=== PATIENT | male | born 1945 | race Caucasian/White ===

== ENCOUNTER 2017-08-02 12:58 | Outpatient (RCR) | payer MEDICARE, SELFPAY ==
--- NOTE | 2017-08-02 13:54 | HP.PTEVAL ---
Patient's Visit Information JOE FLETCHER is a 72 year old M referred to Physical Therapy by Jerson DO with a diagnosis of Bilateral knee oa. Date of Evaluation: 08/02/17 Physical Therapist: Estephanie Becker - Visit Plan Plan: Will perform HEP in gym - Subjective Subjective: Patient reports that he has a new membership at [employer] and is ready to get moving. right THR and recent the left THR- partial left knee replacement 2 years ago and a right side old achilles injury and it never really healed correctly. Week or two ago started having pain in the achilles calf and into the hamstring- felt muscular. Went to see Dr. Roman who reported that his knee is shot- the right medial side of the knee is bone on bone. May need a partial knee replacement. Lots of leg cramps at night right>left. Had a cortisone shot in the knee and an inflammation Mobic prescribed. Worst: 7/10 Best: 0/10. Sharp and throbbing pains. Sleep: hard to get comfortble. Agg: none Eases: Tylenol. X-rays- bone on bone. PMHx: Heart Condition with 2 stents, HTN, cholestrol. Meds: asprin, spiroloactone, plavix, bedazeparol. - Objective Posture: FH, RS. Gait: no deviation noted. Stairs: asc/desc 8 stairs recip with 1 HR. Palpation: not tender. SLS: 5 sec on the right and 15 on the left. HR/TR: WNL. ROM: left knee: 0-125 right: 0-100 degrees with pain. Strength: 4+/5 throughout bilateral LE. Palpation: not tender. flex: HS: severe, Gastroc: severe - Goals Goal 1:: patient will be I with HEP - Rehabilitation Potential Physical Therapy Diagnosis: Patient presents with hypmobililty- he has decreased strength and muscular endurance Rehabilitation Potential: Excellent - Anticipated Interventions Thank you for the opportunity to evaluate your patient. For Medicare and Medicare HMO plans, please review the plan of care and approve it. It will need to be FAXED BACK to us at [phone] for Medicare purposes. Please let me know if there are questions or concerns regarding this plan of care. Physician Signature: Date:
--- NOTE | 2017-08-02 13:54 | HP.PTDCSUM ---
HP - PT D/C Summary It has been my pleasure to treat JOE FLETCHER under orders from DR.JGESLE Tatiana for the diagnosis of Bilateral knee oa for a total of 1 visit(s). Discharge Date: Please see the following information for a summary of their discharge status. - Goals Goal 1:: patient will be I with HEP - Plan Plan: Will perform HEP in gym - D/C Information If there are questions or concerns regarding this patient's physical therapy, please feel free to call me at [phone]. Thank you for the referral of this patient. Sincerely, Estephanie Becker
== END 2017-08-02 19:00 | disposition home or self-care (01) ==
LOC: PT 12:58
PROVIDERS: Family Provider Family Medicine; PCP Family Medicine; Visit Provider Orthopaedic Surgery
DX: M17.11 Unilateral primary osteoarthritis, right knee (principal)
CPT/HCPCS: 97110; 97161

== ENCOUNTER 2018-02-11 13:37 | Observation (INO) | payer MEDICARE, SELFPAY ==
[2018-02-11] VITALS (9 sets, daily range): BP systolic 118–137; BP diastolic 57–73; PULSE 50–63; RESP 14–18; TEMP 36.1–36.5; O2SAT 96–100; BMI 30.1; BMI 29.8
--- NOTE | 2018-02-11 14:22 | EKG12_ITS ---
Test Reason : CP Blood Pressure : / mmHG Vent. Rate : 051 BPM Atrial Rate : 051 BPM P-R Int : 270 ms QRS Dur : 104 ms QT Int : 450 ms P-R-T Axes : 005 035 081 degrees QTc Int : 414 ms Sinus bradycardia with 1st degree A-V block Incomplete right bundle branch block Nonspecific ST and T wave abnormality Abnormal ECG Confirmed by MALIK CISNEROS, DEEPIKA ([id number]), society editor BRIAN LYON ([id number]) on 02/13/2018 3:11:00 PM Referred By: SUELLEN Confirmed By:DEEPIKA GAN MD
--- NOTE | 2018-02-11 14:30 | RAD_ITS ---
STUDY: X-RAY CHEST REASON FOR EXAM: Male, 72 years old. Chest pain TECHNIQUE: Frontal view of the chest COMPARISON: None. FINDINGS: The lungs are clear. There are no pleural effusions. There is no pneumothorax. The heart is normal in size. The visualized osseous structures are within normal limits. RAD/Chest 1 View (Portable) IMPRESSION: No acute thoracic pathology. Electronically Signed: Pascual Lyle, at 15:12 EDT Tel , Service support ,
[2018-02-11 14:57] LABS: Absolute Lymphocyte Count 1.29 X10^3/ul (0.83-4.51); Absolute Neutrophil Count 3.9 X10^3/uL (2.0-7.7); Basophil# 0.01 X10^3/uL; Basophil% 0.2 % (0-1); Eosinophil# 0.11 X10^3/uL; Eosinophils% 1.9 % (0-5); Hematocrit 43.2 % (40-54); Hemoglobin 14.2 g/dl (13.0-16.5); Lymphocyte # 1.29 X10^3/ul (4.0); Lymphocyte % 22.2 % (19-41); Mean Corp Hgb Conc 32.9 g/gl (32-36); Mean Corpuscular Hgb 28.7 pg (27.0-32.0); Mean Corpuscular Volume 87.4 fL (80-94); Mean Platelet Vol. 10.1 fl (6.2-12.0); Monocyte# 0.49 X10^3/uL; Monocyte% 8.4 % (0-10); Neutrophil # 3.92 X10^3/uL (2.7-7.7); Neutrophil % 67.3 % (47-70); POSITIVE COUNT NO; POSITIVE DIFFERENTIAL NO; POSITIVE MORPHOLOGY NO; Platelet Count 239 K/mm3 (150-450); RBC Distribution Width CV 14.1 % (11.6-14.6); RBC Distribution Width SD 45.2 fl (35.1-43.9); Red Blood Count 4.94 M/mm3 (4.6-6.2); White Blood Count 5.8 K/mm3 (4.4-11.0)
[2018-02-11 15:14] LABS: Anion Gap 6 (5-15); BUN 19 mg/dL (7-18); BUN/Creat Ratio 19.2 RATIO (10-20); Calcium,Total 8.7 mg/dL (8.5-10.1); Chloride 106 mmol/L (98-107); Creatinine, Serum 0.99 mg/dL (0.70-1.30); EST Glomerular Filtration Rate 79 mL/min (>60); Est Glom Filt Rate - Afr Amer 95 mL/min (>60); Glucose 126 mg/dL (74-106); Potassium 3.9 mmol/L (3.5-5.1); Sodium Level 138 mmol/L (136-145)
[2018-02-11] MEDS: 0.9% Normal Saline 1,000 ML 150 ML IV ×2 (15:16→18:44)
[2018-02-11] MEDS: Aspirin 81 MG TAB.CHEW 324 MG PO (15:16)
--- NOTE | 2018-02-11 15:37 | ED.VISSUMM ---
- ER Visit Summary Date of Service: 02/11/18 Chief Complaint: [Shortness of breath] History of Present Illness: The patient is a 72 M [presents the emergency department with complaint of shortness of breath that started prior to arrival in the emergency department. Patient states that he was in a cut his lawn so try to start his lawnmower and pulled on the cord 10 times unsuccessfully. Patient began feeling very short of breath. Patient rested and the dyspnea did not seem to improve. He denies any chest pain or diaphoresis. He denied nausea or vomiting. Patient states that he had similar symptoms last time he required cardiac stent. Patient has 2 cardiac stents one that was placed in 2006 1 in 2013. Patient had nitroglycerin at home but did not take any.] Physical Examination: [HEENT-PERRLA, EOMI. Cranial nerves II through XII grossly intact. TMs clear. Mucous membranes moist. No adenopathy. Cardiovascular-regular rate and rhythm without murmur or ectopy Lungs-clear to auscultation, chest wall stable without crepitus or subcu emphysema Abdomen-normoactive bowel sounds, soft, nontender, no rebound or rigidity, no peritoneal signs. Extremities-intact ?4, normal range of motion, normal pulses, atraumatic] Test Results: [EKG obtained on arrival shows sinus rhythm with a ventricular rate of [address] changes noted laterally. CBC with differential obtained showed a white count 5.8, hemoglobin 14, hematocrit 43, platelets 239. Chemistries unremarkable. Troponin was less than 0.015. Chest x-ray showed nothing acute.] Emergency Department Course and Treatment: [She received aspirin in the emergency department.] Treatment Plan: [Admit for further workup and evaluation] Disposition: [Admit] Impression: [Dyspnea Anginal equivalent] This note was generated with [employer] dictation software. It may contain incorrect words, spelling, and punctuation that were not noted in review of the chart prior to signing ED Disposition - Plan for ED Patient: Chief Complaint: Shortness of Breath Referrals: Kraig Rider MD [Primary Care Provider] -
--- NOTE | 2018-02-11 15:40 | ED.DCSUM_ITS ---
- ER Visit Summary Date of Service: 02/11/18 Chief Complaint: [Shortness of breath] History of Present Illness: The patient is a 72 M [presents the emergency department with complaint of shortness of breath that started prior to arrival in the emergency department. Patient states that he was in a cut his lawn so try to start his lawnmower and pulled on the cord 10 times unsuccessfully. Patient began feeling very short of breath. Patient rested and the dyspnea did not seem to improve. He denies any chest pain or diaphoresis. He denied nausea or vomiting. Patient states that he had similar symptoms last time he required cardiac stent. Patient has 2 cardiac stents one that was placed in 2006 1 in 2013. Patient had nitroglycerin at home but did not take any.] Physical Examination: [HEENT-PERRLA, EOMI. Cranial nerves II through XII grossly intact. TMs clear. Mucous membranes moist. No adenopathy. Cardiovascular-regular rate and rhythm without murmur or ectopy Lungs-clear to auscultation, chest wall stable without crepitus or subcu emphysema Abdomen-normoactive bowel sounds, soft, nontender, no rebound or rigidity, no peritoneal signs. Extremities-intact ?4, normal range of motion, normal pulses, atraumatic] Test Results: [EKG obtained on arrival shows sinus rhythm with a ventricular rate of [address] changes noted laterally. CBC with differential obtained showed a white count 5.8, hemoglobin 14, hematocrit 43, p latelets 239. Chemistries unremarkable. Troponin was less than 0.015. Chest x-ray showed nothing acute.] Emergency Department Course and Treatment: [She received aspirin in the emergency department.] Treatment Plan: [Admit for further workup and evaluation] Disposition: [Admit] Impression: [Dyspnea Anginal equivalent] This note was generated with [employer] dictation software. It may contain incorrect words, spelling, and punctuation that were not noted in review of the chart prior to signing ED Disposition - Plan for ED Patient: Chief Complaint: Shortness of Breath Referrals: Kraig Rider MD [Primary Care Provider] -
--- NOTE | 2018-02-11 16:03 | HP.PCM_ITS ---
Problem List (1) Dyspnea Status: Acute (2) Coronary artery disease Status: Chronic Qualifiers: (3) Dupuytren's contracture of left hand Status: Chronic (4) Hyperlipidemia Status: Chronic Qualifiers: (5) Osteoarthritis Status: Chronic History of Present Illness Date of Admission: 02/11/18 Chief Complaint: Shortness of breath The patient is a 72 year old M with past medical history cigar for CAD with previous stent placement for an 11 years ago who presented with shortness of breath. Patient symptoms started while trying to start his more. He tried a couple of times and did develop some shortness of breath which persisted. According to patient had a similar presentation when his stents was placed previously. He subsequently presented to the emergency department as a result. On further questioning patient denied any nausea no vomiting did experience some lightheadedness but denied passing out. In the ED his initial set of cardiac enzymes and EKG came back unremarkable patient subsequently admitted to a monitored bed for further management. Past Medical History Past Medical History (Chronic Problems): Chronic Problems Osteoarthritis (Chronic) Dupuytren's contracture of left hand (Chronic) Hyperlipidemia (Chronic) Coronary artery disease (Chronic) Allergies No Known Allergies Allergy (Verified 02/11/18 13:39) Home Medications: Ambulatory Orders Medication Instructions Recorded Allopurinol [Zyloprim] 300 mg PO DAILY 11/14/13 Benazepril HCl [Lotensin] 20 mg PO DAILY 11/14/13 Spironolactone [Aldactone] 25 mg PO DAILY 11/14/13 Aspirin 161 mg PO DAILY@0800 03/19/16 Atenolol [Tenormin (beta scottie)] 12.5 mg PO DAILY 03/19/16 Atorvastatin Calcium [Lipitor] 40 mg PO QHS 03/19/16 Clopidogrel Bisulfate [Plavix] 75 mg PO DAILY 03/19/16 Surgical History: tonsillectomy, - - Tonsillectomy Varicocele 1974 Right hip replacement 1996 Coronary artery stent 2006 Psychiatric History: No pertinent psych hx Smoking Status: Heavy Smoker (>10/day) - *Family History Paternal History Items: Pulmonary Disease, - - No heart disease Maternal History Items: Diabetes, - - No heart disease Review of Systems Constitutional: Denies: Anorexia, Chills, Fever, Night Sweats, Weight Change HEENT: Denies: Head Aches, Sinus Congestion, Sinus Drainage Cardiovascular: Reports: Light Headedness. Denies: Chest Pain, Orthopnea, Palpitations, Paroxysmal Noc. Dyspnea Respiratory: Reports: Shortness of Breath. Denies: Cough Gastrointestinal: Denies: Abdominal Pain, Hematemesis, Hematochezia, Nausea, Melena, Vomiting Genitourinary: Denies: Dysuria, Frequency, Hematuria, Urgency Musculoskeletal: Denies: Joint Pain, Joint Tenderness Skin: Denies: Rash Neurological: Denies: Focal weakness, Numbness, Tingling Psychiatric: Denies: Homicidal Ideations, Suicidal Ideations Hematologic/ Lymphatic: Denies: Easy Bruising, Easy Bleeding VTE Information - Inpt Only VTE Present on Admission: No VTE Mechan Device Prophylaxis: None VTE Pharm Prophylaxis ordered?: Yes Patient Problems: Active and Suspected Problems Dyspnea (Acute) - Physical Exam General: Alert, Oriented x3, Cooperative HEENT: Atraumatic, PERRLA Neck: Supple, No JVD, Thyroid Normal Size and Texture Lungs: Clear to auscultation, No wheeze Cardiovascular: Regular rate, Normal S1, Normal S2, No murmurs, PMI Normal Abdomen: Bowel Sounds Present, Soft, Non Tender Extremities: No clubbing, No cyanosis, No edema Skin: No rashes Musculoskeletal: No Muscle Wasting, - - Full range of motion in all major muscle groups. Lymphatic: Cervical Adenopathy Neurological: Neuro grossly intact, Muscle tone normal Psych/Mental Status: Normal Affect Vital Signs Temp Pulse Resp BP Pulse Ox 97.3 F L 63 18 137/73 H 99 02/11/18 13:39 02/11/18 13:39 02/11/18 13:39 02/11/18 13:39 02/11/18 14:22 Oxygen Delivery Method Room Air Weight: 103.5 kg Body Mass Index (BMI) 30.1 Laboratory Tests Past 24 Hrs 02/11/18 02/11/18 14:41 14:41 WBC 5.8 RBC 4.94 Hgb 14.2 Hct 43.2 MCV 87.4 MCH 28.7 MCHC 32.9 RDW 14.1 RDW Differential 45.2 H Plt Count 239 MPV 10.1 Immature Gran % (Auto) 0.000 Neut % (Auto) 67.3 Lymph % (Auto) 22.2 [place] % (Auto) 8.4 Eos % (Auto) 1.9 Baso % (Auto) 0.2 Absolute Neuts (auto) 3.9 Absolute Lymphs (auto) 1.29 Total Counted Not Reportable Sodium 138 Potassium 3.9 Chloride 106 Carbon Dioxide 26.0 Anion Gap 6 BUN 19 H Creatinine 0.99 Estim Creat Clear Calc 75.10 Est GFR (MDRD) Af Amer 95 Est GFR (MDRD) Non-Af 79 BUN/Creatinine Ratio 19.2 Glucose 126 H Calcium 8.7 Troponin I < 0.015 Assessment/Plan All Active Problems Dyspnea (Acute) Acute blood loss anemia (Resolved) Syncope (Resolved) Hypertension (Resolved) Is a 72-year-old gentleman with previous history of CAD with 2 previous stent placement presented with acute dyspnea 1. Acute dyspnea: Patient has been admitted to a monitored bed ruling out [place] with serial cardiac enzymes. Did review patient's old records his last stress test was on 03/15/2017 which was negative for stress-induced ischemia. Plan is for patient to be referred to his primary printing press machinist Dr. Jorge Luis Suazo if his evaluation comes back negative 2. CAD with previous 2 stent placement patient is on recommended medications including dual antiplatelet therapy starting therapy beta-blockers as well as KARI inhibitors 3. Hypertension patient blood pressure stable did continue with home medications 4. Dyslipidemia patient is on statin therapy did continue . Gout patient is on allopurinol symptoms well controlled 6. DVT prophylaxis SC Lovenox Advance planning; did discuss with the patient and family regarding her advanced directives as well as CODE STATUS. Did explain the various modalities involved ( FULL CODE, DNR CCA, DNR CCA with no intubation, and DNR CC ) patient elected to remain full code . Order was placed. Time spent on discussion 18 minutes. Code Visit OBSV E&M: 16414 Initial observation care L3 Procedures: 18459 Advncd Care Plan 30 Min
--- NOTE | 2018-02-11 17:26 | NURSING ---
pt refuses vaccines
[2018-02-11] MEDS: Atorvastatin Calcium 40 MG Tablet PO (22:11)
[2018-02-12] VITALS (7 sets, daily range): BP systolic 124–143; BP diastolic 57–71; PULSE 54–65; RESP 16–18; TEMP 36.5–36.6; O2SAT 96–99
[2018-02-12] MEDS: 0.9% Normal Saline 1,000 ML 150 ML IV ×2 (00:05→06:21)
[2018-02-12 06:39] LABS: Anion Gap 6 (5-15); BUN 14 mg/dL (7-18); Calcium,Total 7.9 mg/dL (8.5-10.1); Chloride 112 mmol/L (98-107); Creatinine, Serum 0.87 mg/dL (0.70-1.30); EST Glomerular Filtration Rate 91 mL/min (>60); Est Glom Filt Rate - Afr Amer 110 mL/min (>60); Estimated Creatinine Clearance 85.46 ml/min; Glucose 104 mg/dL (74-106); Potassium 3.8 mmol/L (3.5-5.1); Sodium Level 141 mmol/L (136-145)
[2018-02-12] MEDS: Aspirin 81 MG TAB.CHEW 162 MG PO (08:49)
--- NOTE | 2018-02-12 09:13 | DCINST_ITS ---
- Discharge Diagnoses Current Active Problems: Current Active and Chronic Problems Dyspnea (Acute) You will use the following diet at home:: Cardiac Discharge Activity: Return to Normal Activity Allergies/Adverse Reactions: Allergies No Known Allergies Allergy (Verified 02/11/18 13:39) Medications to take at Discharge Benazepril HCl [Lotensin] 10 mg PO DAILY@0800 11/14/13 Spironolactone [Aldactone] 25 mg PO DAILY@159911/14/13 Aspirin 161 mg PO DAILY@03/19/16 Atenolol [Tenormin (beta scottie)] 12.5 mg PO DAILY@159903/19/16 Atorvastatin Calcium [Lipitor] 40 mg PO QHS@03/19/16 Clopidogrel Bisulfate [Plavix] 75 mg PO DAILY@79903/19/16 Isosorbide Mononitrate [Isosorbide Mononitrate ER] 30 mg PO DAILY@0800 02/11/18 Primary Care Physician: Kraig Rider MD [Primary Care Provider] - Please follow up with your Primary Care Physician in: in 5-7 days Test Results: Test results from this visit will be discussed in further detail at your follow- up appointment, if applicable. Please Follow Up With: Eren Romeo MD When: in 2-3 days Proposed Discharge Date: 02/12/18
--- NOTE | 2018-02-12 09:13 | PCM.DC.SUM ---
Discharge Date and Diagnosis - Problem List Patient Problems: Active and Suspected Problems Dyspnea (Acute) Date of Admission: 02/11/18 Date of Discharge: 02/12/18 - Primary Discharge Diagnosis Active and Suspected Problems Dyspnea (Acute) - Secondary Discharge Diagnosis Chronic Problems Osteoarthritis (Chronic) Dupuytren's contracture of left hand (Chronic) Hyperlipidemia (Chronic) Coronary artery disease (Chronic) Hospital Course and Treatment Imaging Results: Clinical Impression(s) from Imaging Studies Chest X-Ray 02/11/18 14:30 IMPRESSION: No acute thoracic pathology. Electronically Signed: Pascual Lyle, at 15:12 EDT Tel , Service support , Summary of Care Provided: The patient is a 72 year old M n with previous history of CAD with 2 previous stent placement presented with acute dyspnea 1. Acute dyspnea: Patient has been admitted to a monitored bed ruling out [place] with serial cardiac enzymes. Did review patient's old records his last stress test was on 03/15/2017 which was negative for stress-induced ischemia. Patient serial cardiac enzymes did remain negative throughout his stay. His symptoms resolved. He was discharged home instructed to follow-up with his primary masonry installer Dr. Jorge Luis Romeo for subsequent evaluation 2. CAD with previous 2 stent placement patient is on recommended medications including dual antiplatelet therapy starting therapy beta-blockers as well as KARI inhibitors 3. Hypertension patient blood pressure stable did continue with home medications 4. Dyslipidemia patient is on statin therapy did continue 5. Gout patient is on allopurinol symptoms well controlled 6. DVT prophylaxis SC Lovenox Discharge Diet: No Restrictions, Low fat/ Low Cholesterol Discharge Activity: Return to Normal Activity Home Medications: Medications to take at Discharge Benazepril HCl [Lotensin] 10 mg PO DAILY@0800 11/14/13 Spironolactone [Aldactone] 25 mg PO DAILY@1600 11/14/13 Aspirin 161 mg PO DAILY@03/19/16 Atenolol [Tenormin (beta scottie)] 12.5 mg PO DAILY@1600 03/19/16 Atorvastatin Calcium [Lipitor] 40 mg PO QHS@03/19/16 Clopidogrel Bisulfate [Plavix] 75 mg PO DAILY@0800 03/19/16 Isosorbide Mononitrate [Isosorbide Mononitrate ER] 30 mg PO DAILY@0800 02/11/18 Primary Care Physician: Kraig Rider MD [Primary Care Provider] - Please follow up with your Primary Care Physician in: in 5-7 days Please Follow Up With: Eren Romeo MD When: in 2-3 days Disposition: Home Minutes spent on discharge:: 35 Medical Necessity - Tobacco Use Smoking Status: Current every day smoker Tobacco Use: Cigars Meaningful Use Info Meaningful Use Diagnoses (Choose all that apply): None applicable Code Visit OBSV E&M: 73424 Observation care discharge - Physical Exam General: Alert HEENT: Atraumatic Neck: No JVD Lungs: Clear to auscultation Cardiovascular: Regular rate Neurological: Neuro grossly intact Vital Signs Temp Pulse Resp BP Pulse Ox 97.8 F 54 L 16 138/57 H 96 02/12/18 06:21 02/12/18 06:56 02/12/18 06:21 02/12/18 06:21 02/12/18 06:21 Oxygen Delivery Method Room Air Weight: 102.512 kg Body Mass Index (BMI) 29.8 Intake and Output for Last 24 Hours 02/10/18 02/11/18 02/12/18 23:59 23:59 23:59 Intake Total 1432 / 1432 935 / 935 Balance 1432 / 1432 935 / 935 Laboratory Tests Past 24 Hrs 02/11/18 02/11/18 02/11/18 14:41 14:41 18:10 WBC 5.8 RBC 4.94 Hgb 14.2 Hct 43.2 MCV 87.4 MCH 28.7 MCHC 32.9 RDW 14.1 RDW Differential 45.2 H Plt Count 239 MPV 10.1 Immature Gran % (Auto) 0.000 Neut % (Auto) 67.3 Lymph % (Auto) 22.2 [place] % (Auto) 8.4 Eos % (Auto) 1.9 Baso % (Auto) 0.2 Absolute Neuts (auto) 3.9 Absolute Lymphs (auto) 1.29 Total Counted Not Reportable Sodium 138 Potassium 3.9 Chloride 106 Carbon Dioxide 26.0 Anion Gap 6 BUN 19 H Creatinine 0.99 Estim Creat Clear Calc 75.10 Est GFR (MDRD) Af Amer 95 Est GFR (MDRD) Non-Af 79 BUN/Creatinine Ratio 19.2 Glucose 126 H Calcium 8.7 Troponin I < 0.015 < 0.015 02/11/18 02/12/18 20:55 06:02 WBC RBC Hgb Hct MCV MCH MCHC RDW RDW Differential Plt Count MPV Immature Gran % (Auto) Neut % (Auto) Lymph % (Auto) [place] % (Auto) Eos % (Auto) Baso % (Auto) Absolute Neuts (auto) Absolute Lymphs (auto) Total Counted Sodium 141 Potassium 3.8 Chloride 112 H Carbon Dioxide 23.0 Anion Gap 6 BUN 14 Creatinine 0.87 Estim Creat Clear Calc 85.46 Est GFR (MDRD) Af Amer 110 Est GFR (MDRD) Non-Af 91 BUN/Creatinine Ratio 16.0 Glucose 104 Calcium 7.9 L Troponin I < 0.015
--- NOTE | 2018-02-12 09:16 | DS.PCM_ITS ---
Discharge Date and Diagnosis - Problem List Patient Problems: Active and Suspected Problems Dyspnea (Acute) Date of Admission: 02/11/18 Date of Discharge: 02/12/18 - Primary Discharge Diagnosis Active and Suspected Problems Dyspnea (Acute) - Secondary Discharge Diagnosis Chronic Problems Osteoarthritis (Chronic) Dupuytren's contracture of left hand (Chronic) Hyperlipidemia (Chronic) Coronary artery disease (Chronic) Hospital Course and Treatment Imaging Results: Clinical Impression(s) from Imaging Studies Chest X-Ray 02/11/18 14:30 IMPRESSION: No acute thoracic pathology. Electronically Signed: Pascual Lyle, at 15:12 EDT Tel , Service support , Summary of Care Provided: The patient is a 72 year old M n with previous history of CAD with 2 previous stent placement presented with acute dyspnea 1. Acute dyspnea: Patient has been admitted to a monitored bed ruling out [place] with serial cardiac enzymes. Did review patient's old records his last stress test was on 03/15/2017 which was negative for stress-induced ischemia. Patient serial cardiac enzymes did remain negative throughout his stay. His symptoms resolved. He was discharged home instructed to follow-up with his primary media director Dr. Jorge Luis Romeo for subsequent evaluation 2. CAD with previous 2 stent placement patient is on recommended medications including dual antiplatelet therapy starting therapy beta-blockers as well as KARI inhibitors 3. Hypertension patient blood pressure stable did continue with home medications 4. Dyslipidemia patient is on statin therapy did continue 5. Gout patient is on allopurinol symptoms well controlled 6. DVT prophylaxis SC Lovenox Discharge Diet: No Restrictions, Low fat/ Low Cholesterol Discharge Activity: Return to Normal Activity Home Medications: Medications to take at Discharge Benazepril HCl [Lotensin] 10 mg PO DAILY@0800 11/14/13 Spironolactone [Aldactone] 25 mg PO DAILY@1600 11/14/13 Aspirin 161 mg PO DAILY@03/19/16 Atenolol [Tenormin (beta scottie)] 12.5 mg PO DAILY@1600 03/19/16 Atorvastatin Calcium [Lipitor] 40 mg PO QHS@03/19/16 Clopidogrel Bisulfate [Plavix] 75 mg PO DAILY@0800 03/19/16 Isosorbide Mononitrate [Isosorbide Mononitrate ER] 30 mg PO DAILY@0800 02/11/18 Primary Care Physician: Kraig Rider MD [Primary Care Provider] - Please follow up with your Primary Care Physician in: in 5-7 days Please Follow Up With: Eren Romeo MD When: in 2-3 days Disposition: Home Minutes spent on discharge:: 35 Medical Necessity - Tobacco Use Smoking Status: Current every day smoker Tobacco Use: Cigars Meaningful Use Info Meaningful Use Diagnoses (Choose all that apply): None applicable Code Visit OBSV E&M: 58418 Observation care discharge - Physical Exam General: Alert HEENT: Atraumatic Neck: No JVD Lungs: Clear to auscultation Cardiovascular: Regular rate Neurological: Neuro grossly intact Vital Signs Temp Pulse Resp BP Pulse Ox 97.8 F 54 L 16 138/57 H 96 02/12/18 06:21 02/12/18 06:56 02/12/18 06:21 02/12/18 06:21 02/12/18 06:21 Oxygen Delivery Method Room Air Weight: 102.512 kg Body Mass Index (BMI) 29.8 Intake and Output for Last 24 Hours 02/10/18 02/11/18 02/12/18 23:59 23:59 23:59 Intake Total 1432 / 1432 935 / 935 Balance 1432 / 1432 935 / 935 Laboratory Tests Past 24 Hrs 02/11/18 02/11/18 02/11/18 14:41 14:41 18:10 WBC 5.8 RBC 4.94 Hgb 14.2 Hct 43.2 MCV 87.4 MCH 28.7 MCHC 32.9 RDW 14.1 RDW Differential 45.2 H Plt Count 239 MPV 10.1 Immature Gran % (Auto) 0.000 Neut % (Auto) 67.3 Lymph % (Auto) 22.2 [place] % (Auto) 8.4 Eos % (Auto) 1.9 Baso % (Auto) 0.2 Absolute Neuts (auto) 3.9 Absolute Lymphs (auto) 1.29 Total Counted Not Reportable Sodium 138 Potassium 3.9 Chloride 106 Carbon Dioxide 26.0 Anion Gap 6 BUN 19 H Creatinine 0.99 Estim Creat Clear Calc 75.10 Est GFR (MDRD) Af Amer 95 Est GFR (MDRD) Non-Af 79 BUN/Creatinine Ratio 19.2 Glucose 126 H Calcium 8.7 Troponin I < 0.015 < 0.015 02/11/18 02/12/18 20:55 06:02 WBC RBC Hgb Hct MCV MCH MCHC RDW RDW Differential Plt Count MPV Immature Gran % (Auto) Neut % (Auto) Lymph % (Auto) [place] % (Auto) Eos % (Auto) Baso % (Auto) Absolute Neuts (auto) Absolute Lymphs (auto) Total Counted Sodium 141 Potassium 3.8 Chloride 112 H Carbon Dioxide 23.0 Anion Gap 6 BUN 14 Creatinine 0.87 Estim Creat Clear Calc 85.46 Est GFR (MDRD) Af Amer 110 Est GFR (MDRD) Non-Af 91 BUN/Creatinine Ratio 16.0 Glucose 104 Calcium 7.9 L Troponin I < 0.015
[2018-02-12] MEDS: Clopidogrel Bisulfate 75 MG Tablet PO (09:20)
[2018-02-12] MEDS: Spironolactone 25 MG Tablet PO (09:20)
[2018-02-12] MEDS: Lisinopril 20 MG Tablet PO (09:21)
[2018-02-12] MEDS: Atenolol 25 MG Tablet 12.5 MG PO (09:21)
[2018-02-12] MEDS: Allopurinol 300 MG Tablet PO (09:21)
== END 2018-02-12 09:12 | disposition home or self-care (01) ==
LOC: ED 14:49 → PCU 15:58
PROVIDERS: Admitting Provider Internal Medicine; Emergency Provider Emergency Medicine; Family Provider Family Medicine; PCP Family Medicine; Visit Provider Internal Medicine
DX: R06.00 Dyspnea, unspecified (principal); R06.02 Shortness of breath; E78.5 Hyperlipidemia, unspecified; I25.10 Atherosclerotic heart disease of native coronary artery without angina pectoris; M19.90 Unspecified osteoarthritis, unspecified site; M72.0 Palmar fascial fibromatosis [Dupuytren]; M10.9 Gout, unspecified; I10 Essential (primary) hypertension; F17.290 Nicotine dependence, other tobacco product, uncomplicated; Z79.899 Other long term (current) drug therapy; Z79.02 Long term (current) use of antithrombotics/antiplatelets; R94.31 Abnormal electrocardiogram [ECG] [EKG]; I45.10 Unspecified right bundle-branch block
CPT/HCPCS: 36415; 71045; 80048; 84484; 85025; 93005; 96360; 96361; 99218; 99283; 99406; J7030; A4216; G0378

== ENCOUNTER → 2020-02-04 17:16 | Outpatient (CLI) | payer MEDICARE, SELFPAY ==
[2019-08-28 14:22] VITALS: BMI 29.9
== END ==
PROVIDERS: PCP Family Medicine; Referring Provider Internal Medicine Cardiovascular Disease; Visit Provider Internal Medicine Cardiovascular Disease
DX: B34.9 Viral infection, unspecified (principal); R42 Dizziness and giddiness; R06.09 Other forms of dyspnea; I77.810 Thoracic aortic ectasia; I25.10 Atherosclerotic heart disease of native coronary artery without angina pectoris; I45.10 Unspecified right bundle-branch block; E78.5 Hyperlipidemia, unspecified; I10 Essential (primary) hypertension; Z95.5 Presence of coronary angioplasty implant and graft
CPT/HCPCS: 87635; C9803; U0003

== ENCOUNTER → 2020-05-13 13:45 | Outpatient (CLI) | payer MEDICARE, SELFPAY ==
[2020-04-29 15:31] VITALS: BMI 31.2
--- NOTE | 2020-05-13 13:50 | ECHOCS_ITS ---
Reason For Study: DILATED AO ROOT Procedure This was a 2D Doppler, Color Flow transthoracic echocardiogram. Exam performed in department. Left Ventricle Normal LV size. Mild concentric left ventricular hypertrophy. Left ventricular systolic function is normal. The estimated ejection fraction is 60 %. No regional wall motion abnormalities noted. Right Ventricle Normal RV size. Normal systolic function. Atria The left atrium is mildly enlarged. Normal right atrium. Mitral Valve Normal mitral valve. Tricuspid Valve Normal tricuspid valve. Mild tricuspid valve insufficiency. Pulmonary artery systolic pressure is 25 mmHg. Aortic Valve Trisinus/trileaflet aortic valve. Mild diffuse aortic valve thickening. Mild (1+) aortic valve insufficiency. Pulmonic Valve Normal pulmonic valve. Great Vessels Mildly dilated aortic root. The pulmonary artery is normal size. Normal inferior vena cava. Pericardium/Pleural No pericardial effusion. Medication 22 gauge I.V. with prn adaptor inserted into right arm. Diluted definity 4.0ml given slow IV push to enhance endocardial definition. MMode/2D Measurements & Calculations LVIDd: 4.6 cm IVSd: 1.3 cm Ao root diam: 4.1 cm LVIDs: 3.1 cm LVPWd: 1.2 cm RVDd: 4.5 cm FS: 33.2 % LAV(MOD-bp): 67.0 ml LVAd ap4: 32.8 cm2 SV(MOD-sp4): 71.0 ml LAV(MOD-bp) Indexed: 29.6 ml/m2 EDV(MOD-sp4): 107.2 ml LAV(MOD-sp2): 66.0 ml EDV(sp4-el): 107.4 ml LAV(MOD-sp4): 62.9 ml LVAs ap4: 16.9 cm2 ESV(MOD-sp4): 36.3 ml ESV(sp4-el): 37.0 ml EF(MOD-sp4): 66.2 % EF(sp4-el): 65.6 % SV(sp4-el): 70.4 ml LA A4 area: 20.6 cm2 LA dimension(2D): 4.0 cm RA A4 area: 18.2 cm2 Time Measurements MV dec time: 0.24 sec Doppler Measurements & Calculations MV E max shivam: 63.9 cm/sec Lat Peak E' Shivam: 5.5 cm/sec Med Peak E' Shivam: 4.2 cm/sec MV A max shivam: 86.5 cm/sec E/E' lat: 11.6 E/E' med: 15.2 MV E/A: 0.74 Ao V2 max: 143.3 cm/sec AI max shivam: 459.5 cm/sec LV V1 max: 99.6 cm/sec Ao max P.2 mmHg AI max P.5 mmHg LV V1 max P.0 mmHg AI dec slope: 161.5 cm/sec2 AI P1/2t: 833.4 msec PA V2 max: 96.1 cm/sec PI end-d shivam: 122.5 cm/sec TR max shivam: 235.8 cm/sec TR max P.3 mmHg Interpretation Summary Normal LV size. Mild concentric left ventricular hypertrophy. Left ventricular systolic function is normal. The estimated ejection fraction is 60 %. The left atrium is mildly enlarged. Mild (1+) aortic valve insufficiency. Mildly dilated aortic root. Ordering Physician: Talia Quinteros Referring Physician: DEE DIAZ Performed By: Whitney Andrade, RAQUEL, RVT
== END ==
PROVIDERS: PCP Family Medicine; Referring Provider Physician Assistant Medical; Visit Provider Physician Assistant Medical
DX: R06.09 Other forms of dyspnea (principal)
CPT/HCPCS: 93306; Q9957; A4216; C8929

== ENCOUNTER → 2020-08-29 09:32 | Outpatient (CLI) | payer MEDICARE, SELFPAY ==
[2020-08-20 15:36] VITALS: BMI 31.4
== END ==
PROVIDERS: PCP Family Medicine; Referring Provider Nurse Practitioner Family; Visit Provider Nurse Practitioner Family
DX: I25.10 Atherosclerotic heart disease of native coronary artery without angina pectoris (principal); I10 Essential (primary) hypertension; E78.5 Hyperlipidemia, unspecified; I48.0 Paroxysmal atrial fibrillation; Z95.5 Presence of coronary angioplasty implant and graft
CPT/HCPCS: 93225; 93226

== ENCOUNTER → 2020-09-02 06:36 | Outpatient (CLI) | payer MEDICARE, SELFPAY ==
[2020-08-20 15:36] VITALS: BMI 31.4
--- NOTE | 2020-09-02 19:54 | STRESSREP_ITS ---
Stress Test Report Date: 09-02-2020 Procedure: Pharmacologic stress nuclear imaging study Indications: Chest pain; CAD; PCI Consent: Per the patient Procedure: The patient underwent pharmacologic (Regadenoson 0.4mg ) evaluation with a peak heart rate of 95 beats per minute (65%predicted maximal heart rate) and a peak blood pressure of 148/88 mmHg. The baseline ECG demonstrated atrial flutter: Right IVCD. The peak pharmacologic ECG demonstrated no obvious ECG changes. The cardiac rhythm remained atrial flutter. There was no complaint of chest discomfort during pharmacologic infusion or recovery. The examination was discontinued secondary to completion of protocol. Impression: 1. Pharmacologic (Regadenoson) evaluation 2. Peak pharmacologic ECG with no obvious ECG changes. 3. The cardiac rhythm remained atrial flutter. 4. Nuclear images pending Myocardial perfusion imaging study: Technique: The patient was injected with 14.2 millicuries of technetium 99m Cardiolite and subsequently rest SPECT Cardiolite nuclear imaging was obtained in the horizontal long, vertical long, and short axis views. The patient underwent pharmacologic (Regadenoson) evaluation with a peak heart rate of 95 beats per minute (65% percent predicted maximal heart rate) and a peak blood pressure of 148/88 mmHg. The patient was injected with 44.1 millicuries of technetium 99m Cardiolite and subsequently stress SPECT Cardiolite nuclear imaging was obtained in the horizontal long, vertical long, and short axis views. A gated Cardiolite study at peak stress was obtained. Interpretation: Rest and stress SPECT Cardiolite nuclear imaging status post realignment, normalization, and attenuation correction demonstrate relative uniform tracer uptake and myocardial perfusion appearing within normal limits. There is end systolic thickening and brightening. The gated Cardiolite study demonstrates myocardial thickening and inward wall motion. The reported LVEF is 75%. Impression: 1. Rest and stress SPECT Cardiolite nuclear imaging demonstrate relative uniform tracer uptake and myocardial perfusion appearing within normal limits. 2. The gated Cardiolite study reports an LVEF of 75%. This note was generated with Care Team Connectation software. It may contain incorrect words, spelling, and punctuation that were not noted in checking the note before signing.
== END ==
PROVIDERS: PCP Family Medicine; Visit Provider Nurse Practitioner Family
DX: R07.9 Chest pain, unspecified (principal); I25.10 Atherosclerotic heart disease of native coronary artery without angina pectoris; Z95.5 Presence of coronary angioplasty implant and graft; I10 Essential (primary) hypertension; E78.5 Hyperlipidemia, unspecified; I48.0 Paroxysmal atrial fibrillation
CPT/HCPCS: 78452; 93017; A9500; A4216; J2785

== ENCOUNTER 2020-09-19 11:42 | Day surgery (SDC) | payer MEDICARE, SELFPAY ==
[2020-09-11 15:59] VITALS: BMI 31.2
--- NOTE | 2020-09-17 15:08 | RAD_ITS ---
STUDY: X-RAY CHEST REASON FOR EXAM: Male, 75 years old. [facility] TECHNIQUE: PA and lateral views of the chest. COMPARISON: 02/11/2018 FINDINGS: The lungs are clear and expanded. There is no demonstrated pleural abnormality. Normal size heart. Normal mediastinum and dylan. Normal visualized pulmonary arteries. Normal visualized aortic arch and descending thoracic aorta. Normal visualized thoracic spine. Normal visualized ribs, clavicles, and shoulders. There is no demonstrated abnormality of the visualized soft tissue structures of the upper abdomen. RAD/Chest PA and Lateral IMPRESSION: Normal x-ray examination of the chest. Electronically Signed: Bandar Goldstein MD at 15:28 EDT Tel , Service support ,
[2020-09-18 08:38] VITALS: BMI 31.2
--- NOTE | 2020-09-19 13:04 | PCM.OP.BLANK ---
Problems Associated Problem List Diagnoses (1) Paroxysmal atrial fibrillation: Operative Report Date of Procedure: 09/19/20 DC cardioversion. 75-year-old man with a history of coronary artery disease and persistent atrial flutter. The patient was brought to the noninvasive lab in the postabsorptive nonsedated state. The patient was seen by myself as well as by Dr. Floyd of the critical care division. Informed consent was obtained. Anterior-posterior pads were applied. The patient was then administered 40 mg of intravenous propofol. 200 J of synchronized biphasic cardioversion energy were applied with prompt reversal to sinus rhythm. Patient tolerated the procedure well. Conclusion: Successful DC cardioversion from atrial flutter to sinus rhythm. Continue current medications Continue anticoagulation.
--- NOTE | 2020-09-19 13:42 | PRO.PCM_ITS ---
Procedure Report Date of Procedure: 09/19/20 CONSCIOUS SEDATION REPORT DATE OF SERVICE: September 19, 2020 BRIEF HISTORY OF PRESENT ILLNESS: The patient is a 75-year-old male who presented to [facility] for an elective outpatient cardioversion due to underlying atrial fibrillation. The patient's last surface echocardiogram revealed an ejection fraction of approximately 60%. The patient is anticoagulated on Eliquis. He does report having experienced some bradycardic episodes after his last exposure to anesthesia. He has never been diagnosed with sleep apnea previously. PHYSICAL EXAMINATION: VITAL SIGNS: Reviewed and were acceptable. GENERAL: The patient is a male, in no apparent distress, speaking in f ull sentences. HEENT: Normocephalic, atraumatic. Mucous membranes are moist and pink. Good mouth opening noted. Trachea is midline. CHEST: S1, S2 irregularly irregular. No murmurs, rubs or gallops were noted. LUNGS: Clear to auscultation bilaterally without appreciable wheezes, rales or rhonchi. ABDOMEN: Soft, nontender, nondistended. Positive bowel sounds. EXTREMITIES: There is no clubbing, cyanosis or edema. ASA Class: II DESCRIPTION OF PROCEDURE: After confirmation of informed consent, the patient's anesthesia plan was reviewed in detail. Propofol was chosen. Risks and benefits were reviewed and the patient agreed to proceed. At 1245, the patient was given 40 mg of propofol. The patient achieved an appropriate level of sedation and was given a 200 joule synchronized cardioversion by Dr. Johnson at the bedside. This was successful in achieving normal sinus rhythm. The patient was monitored until 1255, at which time he reached his baseline mental status and function. The patient tolerated the procedure well. COMPLICATIONS: None ESTIMATED BLOOD LOSS: None RECOMMENDATIONS: Okay to recover in usual fashion. Procedures Pulmonary CF Procedures [id number]: Other Procedure See Report ([id number])
== END 2020-09-19 14:00 | disposition home or self-care (01) ==
LOC: CLSP 11:43
PROVIDERS: PCP Family Medicine; Referring Provider Internal Medicine Cardiovascular Disease; Visit Provider Internal Medicine Cardiovascular Disease
DX: I48.0 Paroxysmal atrial fibrillation (principal); I25.10 Atherosclerotic heart disease of native coronary artery without angina pectoris; E11.9 Type 2 diabetes mellitus without complications; I10 Essential (primary) hypertension; E78.5 Hyperlipidemia, unspecified; M19.90 Unspecified osteoarthritis, unspecified site; M10.9 Gout, unspecified; F17.290 Nicotine dependence, other tobacco product, uncomplicated; Z79.01 Long term (current) use of anticoagulants; Z79.82 Long term (current) use of aspirin; Z79.899 Other long term (current) drug therapy; Z95.5 Presence of coronary angioplasty implant and graft; Z96.652 Presence of left artificial knee joint; Z96.643 Presence of artificial hip joint, bilateral
CPT/HCPCS: 71046; 92960; 93005; J7040

== ENCOUNTER 2021-08-05 09:35 | Outpatient (CLI) | payer MEDICARE, SELFPAY ==
[2021-08-05 11:00] LABS: AST(SGOT) 20 U/L (15-37); Alanine Aminotransfer ALT/SGPT 33 U/L (16-61); Albumin, Serum 3.8 g/dL (3.2-5.0); Alkaline Phosphatase 113 U/L (45-117); Bilirubin, Direct 0.19 mg/dL (0.00-0.30); Cholesterol 139 mg/dL (200); Globulin 3.7 g/dL (2.2-4.2); High Density Lipoprotein 35 mg/dL; Protein, Total 7.5 g/dL (6.4-8.2); Triglycerides 119 mg/dL; Very Low Density Lipoprotein 24 mg/dL (5-40)
== END 2021-08-05 23:59 | disposition home or self-care (01) ==
LOC: LAB 09:37
PROVIDERS: PCP Family Medicine; Referring Provider Internal Medicine Cardiovascular Disease; Visit Provider Internal Medicine Cardiovascular Disease
DX: E78.5 Hyperlipidemia, unspecified (principal); I25.10 Atherosclerotic heart disease of native coronary artery without angina pectoris
CPT/HCPCS: 36415; 80061; 80076

== ENCOUNTER 2021-08-20 06:32 | Outpatient (CLI) | payer MEDICARE, SELFPAY ==
--- NOTE | 2021-08-20 10:11 | STRESSREP_ITS ---
Stress Test Report Exercise my cardial perfusion stress test. 76-year-old man with a history of coronary artery disease status post bare-metal stenting of the proximal circumflex artery. Stress protocol: Resting EKG demonstrates sinus bradycardia with a rate of 54 bpm normal intervals are noted resting blood pressure is 120/68 mmHg. The patient exercised according to regular Aldo protocol for total duration of 5 minutes and 45 seconds. The maximum heart rate attained was 123 bpm which was 86% of max impact at heart rate the maximum workload was 7 metabolic equivalents. At rest there were no ST or T wave changes noted to suggest ischemia and at peak exercise there was approximately [address] depression noted in leads II, III and aVF V4 V5 and V6. During recovery there was improvement in these ST changes. No chest pain was noted though there was moderate shortness of breath present. The peak blood pressure was 180/80 mmHg. Myocardial perfusion protocol. 15.0 mCi of technetium 99m sestamibi was injected at rest. The patient exercised according to regular Aldo protocol for 5 minutes and 45 seconds and at peak exercise 45.0 mCi of technetium 99m sestamibi was injected stress images were obtained stress and rest images were reconstructed and compared in the short axis vertical long horizontal long axis. Gated images were also obtained. Perfusion SPECT analysis: Review of the stress images demonstrate mildly reduced perfusion noted in the mid anterior wall on the stress images as well as the inferolateral wall. The r est of the balderas appear to be normally perfused. The resting images demonstrate complete reversibility noted in the inferior lateral wall with mild reduction noted in the anterior wall. The above is suggestive of moderate zone of inferolateral ischemia present and probable mild anterior ischemia. Gated SPECT analysis: The gated ejection fraction is 60%. Conclusion: Abnormal exercise myocardial perfusion stress test with EKG changes suggestive of ischemia at a moderate workload. Inferior lateral moderate zone myocardial ischemia noted. Mild mid anterior ischemia cannot be completely excluded.
== END 2021-08-20 23:59 | disposition home or self-care (01) ==
LOC: CVS 06:35
PROVIDERS: PCP Family Medicine; Referring Provider Internal Medicine Cardiovascular Disease; Visit Provider Internal Medicine Cardiovascular Disease
DX: I25.10 Atherosclerotic heart disease of native coronary artery without angina pectoris (principal); Z95.5 Presence of coronary angioplasty implant and graft
CPT/HCPCS: 78452; 93017; A9500; A4216

== ENCOUNTER 2021-08-26 13:31 | Outpatient (CLI) | payer MEDICARE, SELFPAY ==
[2021-08-24 13:58] LABS: Absolute Lymphocyte Count 1.57 X10^3/uL (0.83-4.51); Basophil# 0.02 X10^3/uL; Basophil% 0.3 % (0-1); Eosinophil# 0.17 X10^3/uL; Eosinophils% 2.2 % (0-5); Hematocrit 43.2 % (40-54); Lymphocyte # 1.57 X10^3/ul (0.83-4.51); Lymphocyte % 20.8 % (19-41); Mean Corp Hgb Conc 32.4 g/dL (32-36); Mean Corpuscular Volume 89.6 fL (80-94); Mean Platelet Vol. 10.7 fl (6.2-12.0); Monocyte# 0.75 X10^3/uL; Monocyte% 9.9 % (0-10); NRBC Flagged by Analyzer 0 % (0-5); Neutrophil # 5.03 X10^3/uL (2.7-7.7); Neutrophil % 66.5 % (47-70); Platelet Count 259 K/mm3 (150-450); RBC Distribution Width CV 13.4 % (11.6-14.6); RBC Distribution Width SD 44.2 fl (35.1-43.9); Red Blood Count 4.82 M/mm3 (4.6-6.2); White Blood Count 7.6 K/mm3 (4.4-11.0)
[2021-08-24 14:27] LABS: Anion Gap 1 (5-15); BUN 16 mg/dL (7-18); BUN/Creat Ratio 15.7 RATIO (10-20); Calcium,Total 8.9 mg/dL (8.5-10.1); Chloride 108 mmol/L (98-107); Creatinine, Serum 1.02 mg/dL (0.70-1.30); EST Glomerular Filtration Rate 75 mL/min (>60); Est Glom Filt Rate - Afr Amer 91 mL/min (>60); Glucose 127 mg/dL (74-106); Potassium 4.3 mmol/L (3.5-5.1); Sodium Level 137 mmol/L (136-145)
== END 2021-08-26 23:59 | disposition home or self-care (01) ==
LOC: PAT 09-03 13:31
PROVIDERS: PCP Family Medicine; Referring Provider Internal Medicine Cardiovascular Disease; Visit Provider Internal Medicine Cardiovascular Disease
DX: R94.39 Abnormal result of other cardiovascular function study (principal); I77.810 Thoracic aortic ectasia; I48.0 Paroxysmal atrial fibrillation; I25.10 Atherosclerotic heart disease of native coronary artery without angina pectoris; I45.10 Unspecified right bundle-branch block; I10 Essential (primary) hypertension; Z95.5 Presence of coronary angioplasty implant and graft
CPT/HCPCS: 36415; 80048; 85025

== ENCOUNTER → 2021-10-14 | Outpatient (CLI) | payer MEDICARE, SELFPAY | END | disposition home or self-care (01) | LOC: PSN 13:24 | PROVIDERS: PCP Family Medicine; Visit Provider Nurse Practitioner Family | DX: I48.0 Paroxysmal atrial fibrillation (principal); I45.10 Unspecified right bundle-branch block; R42 Dizziness and giddiness; Z95.1 Presence of aortocoronary bypass graft | CPT/HCPCS: 93225; 93226 ==

== ENCOUNTER → 2021-12-23 | Outpatient (CLI) | payer MEDICARE, SELFPAY ==
--- NOTE | 2021-12-23 13:40 | CR.ITP_ITS ---
Diagnosis - General Information Admitting Diagnosis: S/P CABG Secondary Diagnosis: Dilated Aortic Root, HTN, HLD, Type II DM Personal Learning Style:: Written Barriers to Learning: No Barriers Stage of change r/t lifestyle modifications:: Action Gave educational material for:: Treating Heart Disease, Emotions & Heart Disease, Stress Management & Relaxation, Sleep Disorders & Heart Disease, How The Heart Works, What it means to have Heart Disease, How Coronary Artery Disease is Diagnosed, Heart Procedures, What Heart Medications Do, Risk Factors & Modifications, Living an Active Life, Nutrition - Education/Goals Individual Counseling: Initial Assessment: Abnormal Cholesterol Levels, High Blood Pressure Cardiac Rehabilitation Goals: 1. Maintain the individual as the primary focus of care. 2. To improve the patient's quality of life. 3. Identification of cardiac risk factors and provide cardiac risk factor management. 4. Enhance the psychosocial status of the patient. 5. Reconditioning enough to allow the patient to resume customary activities. 6. Control symptoms of cardiac disease Personal Goals: Initial Assessment: Improve energy level, Get back to work, or to resume activities faster, Improve muscle strength and endurance, Control risk factors (learn risk factor modification) Scale for measuring improvement of personal goals: Enter appropriate number in Comments. 2 = Unchanged. 3 = Slightly Better. 4 = Moderate Improvement. 5 = Met my Goal - Diagnosis & Disease Process Outcomes/Goals: Pt IDs own risk factors & lifestyle modifications by Session 10, Verbalizes symptoms of angina & response by session 3., Pt independently manages Plan/Interventions: Assist Pt to ID & engage in lifestyle modification to reduce CVD risk, Instruct on individual risk factors, Review symptoms of angina & emergency actions, Review secondary diagnosis & identify educational needs. - Safety Referral to Physical Therapy: No Referral to [facility] Case Management: No Fall Risk Assessed:: Yes Assistive Devices:: None Exercise - Initial Assessment - Visit Date of Eval: 12/23/21 Session #:: 0 - Pre-cardiac Rehab Evaluation - Physician Prescribed Exercise Modalities: Treadmill, Airdyne, NuStep Frequency: 3x/week for 12 weeks [36 sessions] Intensity: 60-80% of age predicted maximum heart rate reserve Current METSs:: 4.0 Target Heart Rate:: 93-122 Resting Blood Pressure: 100/63 EKG Type: Sinus Rhythm w/ 1st degree A-V block, RBBB Current Physical Activity or Exercising minutes: Physically Active daily - Outcomes & Goals Goals:: Verbalizes understanding of THR, RPE & goal METS by session 6, Documents in home exercise log/reports 30 min aerobic 5 day/wk by DC, Demonstrates accurate pulse taking by DC - Intervention & Plan Exercise Program Goals: Instruct on personal THR & RPE, Instruct on MET level & personal MET goal, Show patient to take own pulse /validate performance until accurate, Instruct on home exercise - Physical Activity Home Exercise Physical Activity - Home Exercise: Safe Exercise, Warm-up, Self-monitoring, Cool-Down, Home Exercise > 30 min Daily, Sitting Time <3 hours/daily - Outcomes & Goals Outcomes/Goals: Demonstrates correct Warm-up/exercise Cool-Down (S3) if = 2.5 METs, Verbalizes symptoms of exercise intolerance by Session 3 (S3), Demonstrate safe equipment use (S3) & follows exercise prescrition (6) - Intervention & Plan Plan/Intervention: Instruct warm-up & cool-down if exercising at > 2 METs, Instruct on symptoms of exercise intolerance & actions to take, Instruct & monitor on saf, Assess intial functional capacity & safety risk Nutrition - Initial Assessment - Program Goals Nutrition Program Goals: LDL <100 optimal. 100 - 129 Near optimal. 130 - 159 Borderline High. 160 - 189 High. Total Cholesterol <200 desirable. 200 - 239 Borderline High. >/= 240 High. HDL < 40 Low >/=60 High. Triglycerides <150 desirable. <199 optimal. VlDL 5 - 40. HgbA1C <7%. BMI <25 Patient has diagnosis of Hyperlipidemia (ICD E78)?: Yes - Visit Date of Assessment:: 12/23/21 Session #:: 0 - Pre-cardiac rehab evaluation - Cholesterol/Lipids Triglycerides (mg/dL): 119 Total Cholesterol (mg/dL): 139 LDL Cholesterol (mg/dL): 80 HDL Cholesterol (mg/dL): 35 Lipid Medication: Atorvastatin Determine presence & major risk factors that modify LDL goal: Hypertension or hypertensive medication, Low HDL cholesterol <40 mg/dL*, Family history of premature CHD in Male < 55 years: female <65 yearsFa, Age men > 45 years; women >/= 55 years Outcomes/Goals: Pt IDs own risk factors & lifestyle modifications by Session 10, Verbalizes symptoms of angina & response by session 3., Pt independently manages Intervention/Plan: Instruct on personal lipid levels & lipid goals/NCEP guidelines, Instruct on cholesterol Referral to dietitian:: Yes - Medical Nutrition Therapy - Diabetes (Other Core Measures) Diabetes Type: Diagnosis Type II ICD-10 E11 Fasting blood glucose:: 127 - Weight Mgt (Other Care) Not Applicable: Yes Height: 6 ft 1 in Weight:: 217 lb BMI: 28.6 Diagnosis Overweight/Obesity BMI> 30% ICD-10 E66: No Diagnosis High BMI/Morbid Obesity BMI> 35% ICD-10 Z68: No Outcomes/Goals: Pt sets, maintains & shows weight loss goal & trend during rehab Intervention/Plan: Instruct on ideal BMI & set weight loss goal w/patient, Assist pt to ID & incorporate diet changes for weight loss by S9 - Healthy Eating Habits Will attend diet classes:: Yes Outcomes/Goals:: Consume diet rich in vegs,fruits,whole grain/high fiber,fis h,lean meat, Limit sat/trans fats,cholesterol & added salts & sugars Intervention/Plan:: Assess current eating habits - Education Gave educational materials for:: Healthy eating Nutrition - 30-Day Assessment Nutrition - 60-Day Assessment Nutrition - 90-Day Assessment Nutrition - Final Assessment Medical - Initial Assessment - Visit Date of Eval: 12/23/21 Session #:: 0 - Pre-cardiac rehab evaluation - Medication Compliance Preventative Medication(s):: Aspirin, Statin/lipid H/O mental health issues: depression, anxiety, or addiction?: No Doesn?t believe in the benefits of treatment?: No Believes medications are unnecessary or harmful?: No Has a concern about medication side effects?: No Expresses concern over the cost of medications?: No Outcomes/Goals: Verbalizes medications,desired effect & common side effects @ DC, Pt self-reports following medication regimen, Keeps card in wallet w/medications listed by DC Interventions/plans: Instruct on medication effects & side effects, Review medication list w/patient every two weeks, Instruct importance of taking meds as ordered & assist problem solving - Tobacco Use Tobacco Use: Non-smoker - Hypertension Hypertension Diagnosis:: Hypertension ICD-10 I10 Resting Blood Pressure:: 100/63 [employer] Hypertension Guidelines: [place] [employer] Hypertension Guidelines. Normal BP Less than 120/80. Elevated BP 120/80. Hypertension Stage 1: BP 130-139/80-89. Hypertesnion Stage 2: BP 140 or higher/90 or higher. Hypertension Crisis: BP higher than 180/120 Outcomes/Goals: Able to verbalize/achieve optimal blood pressure <130/80, Incorporates diet changes & exercise for blood pressure control by DC Interventions/plan: Instruct on optimal blood pressure, hypertension & medications, Instruct on effects of sodium, alcohol, stress, exercise &hypertension - Tobacco Cessation Referral Smoking Cessation Referral:: No Individual Education/Counseling:: No Education Schedule Given:: Yes Medical- 30-Day Assessment Medical- 60-Day Assessment Medical- 90-Day Assessment Medical - Final Assessment Psychosocial - Initial Assess - VIsit Date of Eval: 12/23/21 Session #:: 0 - Pre-cardiac rehab evaluation Not Applicable: Yes History of previous Mental disease:: No - Psychosocial Test Tool Used:: Stirling Ultracold([employer])ans ipadio QOL Cardiac, PHQ-9 Questionnaire phq-9 Severity: Severity. 1-4 Minimal Depression. 5-9 Mild Depression. 10-14 Moderate Depression. 15-19 Moderately Sever Depression. 20-27 Severe Depression. Rule: - Referral to Behavioral Health PS - Interventions: Yes Attend Stress Management Classes, No Referral to Behavioral Health if PHQ-9 score >9:, No Referral to [facility], No Referral to Physician if PHQ-9 if score is 5-9: - Outcomes/Goals: See list Psychosocial Outcomes/Goals:: ID's personal stressors & 2 strategies to manage stress by discharge - Intervention/Plan: See List Interventions/Plan:: Assess stressors,coping strategies & signs of derpression on admission Psychosocial - 30-Day Assess Psychosocial - 60-Day Assess Psychosocial - 90-Day Assess Psychosocial - Final Assessmen Patient Health Questionnaire Initial Assessment 1. Little interest or pleasure in doing things: Not at all 2. Feeling down, depressed, or hopeless: Not at all 3. Trouble falling or staying asleep, or sleeping too much: Not at all 4. Feeling tired or having little energy: Several days 5. Poor appetite or overeating: Several days 6. Feeling bad about yourself -- or that you are a failure or have let yourself or your family down: Not at all 7. Trouble concentrating on things, such as reading the newspaper or watching television: Not at all 8. Moving or speaking so slowly that other people could have noticed. Or the opposite - being so fidgety or restless that you have been moving around a lot more than usual: Not at all 9. Thoughts that you would be better off , or of hurting yourself in some way: Not at all Total Score: 2 DEEPA-Q SV Test - Statements CAD is a disease of the arteries in the heart: False Examples of risk factors for heart disease: True Angina is chest pain or discomfort: True The benefits of resistance training include: True Eating more meat and dairy products: False Anti-platelet medications such as aspirin are important: True The only effective way to manage stress: False An exercise warm-up slowly increases heart rate: True Prepared, processed foods usually have high sodium: True Depression is common after a heart attack: I Don't Know The statin medications lower cholesterol: True To control blood pressure, lower the amount of sodium: True If someone gets chest discomfort during walking: False Transfats are partially hydrogenated vegetable oils: I Don't Know Sleep apnea that is not treated increases the risk: I Don't Know To control cholesterol, one should become a vegetarian: True Someone knows if he/she is exercising at the right level: False Diabetes cannot be prevented with exercise & health eating: I Don't Know Stress is a large risk for heart attack: True Self-Efficacy Initial Assessment We would like to know how confident you are in doing certain activities. Please select your confidence level for:: Select your confidence level for the following using the scale 1-10 where 1 is not at all confident and 10 is totally confident. Your score is the average of all 6 responses. Fatigue: How confident are you that you can keep the fatigue caused by your disease from interfering with the things you want to do? Select Number: 8 Physical Discomfort or Pain: How confident are you that you can keep the physical discomfort or pain of your disease from interfering with the things you want to do? Select Number: 10 Emotional Distress: How confident are you that you can keep the emotional distress caused by your disease from interfering with the things you want to do? Select Number: 10 Other Symptoms or Health Problems: How confident are you that you can keep other symptoms or health problems from interfering with the things you want to do? Select Number: 10 Different Tasks and Activities: How confident are you that you can do the different tasks and activities needed to manage your health condition so as to reduce your need to see a doctor? Select Number: 10 Medication: How confident are you that you can do things other than just taking medication to reduce how much your illness affects your everyday life? Select Number: 7 Total Score:: 9 Nutrition Survey - Nutrition Survey Initial Have you lost >10 lbs over the past 2 months without trying?: Yes Are you following a special diet at home for diabetes, low fat, or low salt?: No Are you interested in meeting with a dietitian for help understanding your diet?: No Do you eat less than 3 meals a day?: No Do you eat fatty meats (guillaume, sausage, ribs, etc), fried foods, desserts, large amounts of salad dressings, margarine, butter, or cheese most days?: No Do you have food allergies? [Enter types in comment field]: No Do you eat in restaurants more than 3 times a week?: No Do you season food with salt, seasoning salt, or garlic salt?: No Do you used canned, boxed, frozen meals, or soups, seasoning packets?: Yes Total Score:: 2
--- NOTE | 2021-12-23 13:40 | CR.HP_ITS ---
CR - History & Physical - General Arrival date:: 12/23/21 Arrival time:: 13:41 Date of Referral:: 12/12/21 Date of CR Evaluation:: 12/23/21 Referring Physician: DR. Junior Johnson Primary Diagnosis: S/P CABG - History of Present Cardiac Event Onset Date: Enter Onset Date of cardiac illnesses in Comment field below Coronary Artery Bypass Graft:: Yes - 11/30/2021 MANTILLA-LAD, SVG-OM1, SVG-RPDA PTCA or coronary stenting:: Yes - [id number]- Proximal LCX 10/18/2014, 2006 Type of Symptoms:: Being cleared for prostate surgery, Dr. Johnson elected for stress test and found blockages and was refer for CABG 09/30/2021, then Prostate removal on Dec 20 2021 being done. Interventions with present event:: Bilateral Maze Procedure Paroxysmal Atrial Fibrillation 09/2020 Were there any complications?: No complications, seem to be doing well. - Sleep Disorder Evaluation Hx of Sleep Apnea: No Do you snore loudly (louder than talking or can be heard through closed doors)?: No Do you often feel tired/ fatigued/ sleepy during daytime?: No Has anyone observed you stop breathing during sleep?: No History of Hypertension (for STOP score): Yes STOP Results: Negative - Medications Home Medications: Ambulatory Orders Medication Instructions Recorded atorvastatin 80 mg tablet 80 mg PO QHS 10/10/21 aspirin 81 mg tablet,delayed 81 mg PO DAILY 10/14/21 release (Adult Aspirin Regimen) benazepril 20 mg tablet 20 mg PO DAILY #90 tabs 10/20/21 spironolactone 25 mg tablet 12.5 mg PO QPM #90 tabs 11/17/21 tadalafil 5 mg tablet (Cialis) 5 mg PO DAILY PRN Edema 12/23/21 - Allergies Allergies/Adverse Reactions: Allergies No Known Allergies Allergy (Verified 10/29/21 13:17) Advanced Directives - Advanced Directives Power of Design Studio Consultant: No Living Will: No Advance Directives Information Provided: No - Patient declined Advance Directives on File: No DNR Order?:: No - MOLST See MOLST form: No Past Medical History - Covid-19 Screening Fever: No Unexplained muscle aches: No Current respiratory symptoms: No Upper respiratory infections symptoms: No Gastro-intestinal symptoms: Yes - Diverticulitis Zmg-Gase-Fvljta symptoms: No Has tested positive for COVID-19 in last 30 days: No Date of testin12/23/21 - Double vaccines and Booster Had contact w/person w/symptoms or Covid-19 (+) last 14 days: No Has High Risk Exposures ID'd by Health dept/Inf Control team: No 65 years or older:: Yes Lives in Assisted Living facility:: No Has a chronic lung disease or moderate to severe asthma:: No Has a serious heart condition:: Yes Immunocompromised:: No Severely obese (Body Mass Index of 40 or higher):: No Diabetic:: No Has chronic kidney disease undergoing dialysis:: No Has liver disease:: No - Past Medical Illness Medical History: Past Medical History (Last Reviewed 10/29/21 @ 13:24 by Carolina Romero) Atherosclerosis of coronary artery of [place] heart without angina pectoris I25.10 Dilated aortic root I77.810 Essential hypertension I10 Gout M10.9 History of diverticulosis Z87.19 Hyperlipidemia E78.5 Incomplete right bundle branch block I45.10 Internal hemorrhoid K64.8 Osteoarthritis M19.90 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 Prostate cancer C61 Type 2 diabetes mellitus E11.9 - Past Surgical History Surgical History: Past Surgical History (Last Reviewed 10/29/21 @ 13:24 by Carolina Romero) H/O coronary artery bypass surgery Onset Date: 09/30/21 Z95.1 CABG x 3: MANTILLA-LAD, SVG-OM1, SVG-RPDA, Bilateral Maze procedure (RF w/ cryo), and LAAC w/ 35mm clip 07/31/2021 History of cardioversion Onset Date: 09/2020 Z98.890 History of coronary artery stent placement Onset Date: 10/18/14 Z95.5 MUL-NDI-jafgktsz LCX w/4.0 X 18 mm Vision stent 02/14/2007; FDP-ICI-DZR-Proximal LCX w/ 4.0 X 28 mm Xience Alpine MAGDA 10/18/2014 History of left heart catheterization Onset Date: 09/03/21 Z98.890 History of left knee replacement Onset Date: 2013 Z96.652 partial History of tonsillectomy and adenoidectomy Onset Date: 1947 Z98.890 History of total left hip replacement Onset Date: 03/2016 Z96.642 History of total right hip replacement Onset Date: 1996 Z96.641 History of varicocele Onset Date: 1979 Z86.79 excision Surgical History: tonsillectomy, - - Tonsillectomy Varicocele 1975 Right hip replacement 1996 Coronary artery stent 2006 - Family History Summary Family History: Family History (Last Reviewed 10/29/21 @ 13:24 by Carolina Romero) Mother , Age 84 Diabetes Heart disease Father , Age 88 CAD (coronary artery disease) Sister Cancer breast Sister , Age 60 Cancer lymph nodes Social History - Smoking History Smoking Status: Former smoker Years Smokin Hx Smoking Cessation Date: 08/14/21 - 2 cigars daily Hx Tobacco Use: Yes Hx Smoking Exposure: No - Alcohol Use Alcohol Usage: Yes - rare occasion maybe 1 drink day (wine or bourbon in evening) - Substance Abuse Hx Substance Use: No - Occupation Occupation (List type of work in comments):: Retired - Hobbies, Recreation, Social Activities Hobbies: Sports - Golfer, [employer] T[employer] Palmer, Baseball, [place] Recreational Activities: I am able to engage in all my recreational activities Social Environment - Status Marital Status: - Current Living Arrangements Living Environment:: Spouse - Children How many children do you have?: 2 Do any of your children live nearby?: No - Safety Do you feel safe in your surroundings?: Yes - Assistance Do you need any assistance at home?: no Review of Systems - Review of Systems Hints: Right click = Denies ([place]). Left click = Reports ([place]) Review of Present Symptoms: Reports: Shortness of Breath with Exertion - A little concerning; since 2006 only symptom with previous stents was dyspnea on exertion. Since the surgery has been better and recovers quickly when walking the dog and climbing the incline of his driveway. When he sits down at the table he quickly recovers., Wound Healing, Dizziness/Lightheadedness - Soon after the surgery but none recently its been fine since., Fatigue - feel like I don't have much energy, Heart Arrhythmia/Irregularities - H/O ATRIAL F IBRILLATION/FLUTTER had bilateral MAZE procedure done., Appetite - Normal - Getting better and actually being able to feel hunger before a meal., Appetite - Special Diet - See Food Diet!! Cautious of use of Salt typically use pepper, Sleep - Normal. Denies: Shortness of Breath at Rest, Operative Discomfort, Angina, Sexual Changes - Pain Is Patient Pain Free?: Yes Pain Location: none Pain Level: 0/10 Risk Factor Assessment - Vital Signs Temperature: 97.5 F Respiratory Rate: 14 Pulse Ox: 97 Blood Pressure: 100/63 - Pulse Pulse Rate: 86 Pulse Rhythm: Regular - Hypertension Blood Pressure Sitting - Left Arm: 100/63 - Blood Cholesterol/Lipids Total Cholesterol (mg/dL) Goal = less than 200 mg/dL: 139 HDL Cholesterol (mg/dL) Goal = less than 40 mg/dL: 35 LDL Cholesterol (mg/dL) Goal = less than 70 mg/dL: 80 Triglycerides (mg/dL) Goal = less than 150 mg/dL: 119 - Diabetes Diabetic History: Type II - Technically over the limit of A1c at 7.2% but has never used any medications or insulin. - Obesity Height: 6 ft 1 in Weight:: 208 lb - Lost 20 # post op due to lack of appetite and gradually gaining some since then. Weight in Pounds: 208.0 lbs Weight Source: Estimated by Patient Body Mass Index (BMI): 27.4 Nutritional Referral for Obesity: No - Physical Inactivity Physical Inactivity: Reg Exercise 30 min/day - walking - Risk Stratification Risk Guidelines: Lowest Risk: Risk Factor for Smoking, Risk Factor for Dyslipidemia, Risk Factor for Diabetes, Risk Factor for Obesity, Risk Factor for Hypertension, Risk Factor for Sedentary Lifestyle, Risk Factor for Depression - Family History Family History: Family History (Last Reviewed 10/29/21 @ 13:24 by Carolina Romero) Mother Diabetes Heart disease Father CAD (coronary artery disease) Sister Cancer Sister Cancer Motivation - Motivation to Participate On a scale of 1 to 10, how prepared are you to commit to attending program?: 10 What do you see as barriers to successfully being able to complete the program?: none What do you see as the benefits of succesfully completing the program? In other words, what do you hope to get out of participating in the program?: get to where I can get back to golfing regular, walking dog, endurance! Are there issues you are dealing with that will interfere with completing the program?: none Do you have a spouse or signficant other, family or friends who will help support you to complete the program?: Yes
[2021-12-23 14:22] VITALS: BP 100/63; PULSE 86; RESP 14; TEMP 36.4; O2SAT 97; BMI 27.4
[2021-12-23 14:56] VITALS: BP 100/63; BMI 28.6
== END | disposition home or self-care (01) ==
LOC: CR 13:27
PROVIDERS: PCP Family Medicine; Referring Provider Internal Medicine Cardiovascular Disease; Visit Provider Internal Medicine Cardiovascular Disease
DX: Z95.1 Presence of aortocoronary bypass graft (principal)

== ENCOUNTER 2022-01-13 10:30 | Outpatient (RCR) | payer MEDICARE, SELFPAY ==
[2021-12-23 14:56] VITALS: BMI 28.6
== END 2022-01-13 23:59 ==
LOC: CR 10:30
PROVIDERS: PCP Family Medicine; Referring Provider Internal Medicine Cardiovascular Disease; Visit Provider Internal Medicine Cardiovascular Disease
DX: I25.10 Atherosclerotic heart disease of native coronary artery without angina pectoris (principal); I45.10 Unspecified right bundle-branch block; I48.0 Paroxysmal atrial fibrillation; I10 Essential (primary) hypertension; E78.5 Hyperlipidemia, unspecified; Z95.1 Presence of aortocoronary bypass graft; Z95.5 Presence of coronary angioplasty implant and graft; R42 Dizziness and giddiness
CPT/HCPCS: 93798

== ENCOUNTER 2022-02-12 10:30 | Outpatient (RCR) | payer MEDICARE, SELFPAY ==
[2021-12-23 14:56] VITALS: BMI 28.6
--- NOTE | 2022-01-22 11:13 | PCM.CR.ITP ---
Diagnosis Exercise - 30-day Assessment - Visit Date of Eval: 01/22/22 Session #:: 10 - Physician Prescribed Exercise Modalities: Treadmill, Airdyne, NuStep, SciFit, Lateral [place] Frequency: 3x/week for 12 weeks [36 sessions] Intensity: 60-80% of age predicted maximum heart rate reserve Current METSs:: 4 Target Heart Rate:: 93-122 Current RPE:: 12-13 Maximum Excercise HR:: 99 Resting Blood Pressure: 108/58 Maximum Exercise Blood Pressure: 140/62 - Outcomes & Goals Goals:: Verbalizes understanding of THR, RPE & goal METS by session 6, Documents in home exercise log/reports 30 min aerobic 5 day/wk by DC, Demonstrates accurate pulse taking by DC, Other additional outcome/goals: see below - Intervention & Plan Exercise Program Goals: Instruct on personal THR & RPE, Instruct on MET level & personal MET goal, Show patient to take own pulse /validate performance until accurate, Instruct on home exercise, Other additional plan/int - 30-day Reassessments 30 day Reassessments:: Progressing - increasing METS - Physical Activity Home Exercise Physical Activity - Home Exercise: Safe Exercise, Warm-up, Self-monitoring, Cool-Down, Home Exercise > 30 min Daily, Sitting Time <3 hours/daily - Outcomes & Goals Outcomes/Goals: Demonstrates correct Warm-up/exercise Cool-Down (S3) if = 2.5 METs, Verbalizes symptoms of exercise intolerance by Session 3 (S3), Demonstrate safe equipment use (S3) & follows exercise prescrition (6), Other: See below - Intervention & Plan Plan/Intervention: Instruct warm-up & cool-down if exercising at > 2 METs, Instruct on symptoms of exercise intolerance & actions to take, Instruct & monitor on saf, Assess intial functional capacity & safety risk, Other See below - 30-day Reassessments 30 day Reassessments:: Progressing - instructed to cool down Nutrition - Initial Assessment Nutrition - 30-Day Assessment - Visit Date of Assessment:: 01/22/22 Session #:: 10 - Cholesterol/Lipids Determine presence & major risk factors that modify LDL goal: Hypertension or hypertensive medication, Low HDL cholesterol <40 mg/dL*, Family history of premature CHD in Male < 55 years: female <65 yearsFa, Age men > 45 years; women >/= 55 years Outcomes/Goals: Pt IDs own risk factors & lifestyle modifications by Session 10, Verbalizes symptoms of angina & response by session 3., Pt independently manages, Other Additional Outcomes/Goals: Intervention/Plan: Advocate for lipid panel cholesterol medication if applicable, Instruct on personal lipid levels & lipid goals/NCEP guidelines, Instruct on cholesterol, Other additional plan/int Referral to dietitian:: Yes - medical nutrition therapy - Diabetes (Other Core Measures) Diabetes Type: Diagnosis Type II ICD-10 E11 Outcomes/Goals:: Able to state symptoms of, Able to state, Able to state, Other additional 30-day Reassessments:: Progressing - taking meds properly - Weight Mgt (Other Care) Height: 6 ft 1 in Weight:: 98.203 kg BMI: 28.5 Outcomes/Goals: Pt sets, maintains & shows weight loss goal & trend during rehab, Other additional outcomes/goals Intervention/Plan: Instruct on ideal BMI & set weight loss goal w/patient, Assist pt to ID & incorporate diet changes for weight loss by S9, Refer to Structured Weight Loss program as appropriate, Encourage goal of using 250-300dcal per session for weight loss, Other additional plan/interventions 30 day Reassessments:: Progressing - encouraged to go to diet class - Healthy Eating Habits Will attend diet classes:: Yes Outcomes/Goals:: Consume diet rich in vegs,fruits,whole grain/high fiber,fish,lean meat, Limit sat/trans fats,cholesterol & added salts & sugars, Other additional outcome/goals: Intervention/Plan:: Assess current eating habits, Other Additional plan/interventions 30-day Reassessments:: Progressing - encouraged to go to nutrition class - Education Gave educational materials for:: Signs & symptoms of hypoglycemia, Signs & symptoms of hyperglycemia, Relate diabetes to coronary artery disease, Healthy eating Nutrition - 60-Day Assessment Nutrition - 90-Day Assessment Nutrition - Final Assessment Core - Initial Assessment Core - 30-Day Assessment - Visit Date of Eval: 01/22/22 Session #:: 10 - Medication Compliance Preventative Medication(s):: Aspirin, Statin/lipid H/O mental health issues: depression, anxiety, or addiction?: No Doesn?t believe in the benefits of treatment?: No Believes medications are unnecessary or harmful?: No Has a concern about medication side effects?: No Expresses concern over the cost of medications?: No Outcomes/Goals: Verbalizes medications,desired effect & common side effects @ DC, Pt self-reports following medication regimen, Keeps card in wallet w/medications listed by DC, Other additional outcome/goals: Interventions/plans: Instruct on medication effects & side effects, Review medication list w/patient every two weeks, Instruct importance of taking meds as ordered & assist problem solving, Other additional 30-day Reassessments:: Progressing - encouraged to take meds properly - Tobacco Use Tobacco Use: Non-smoker - Hypertension Hypertension Diagnosis:: Hypertension ICD-10 I10 Resting Blood Pressure:: 108/58 [place] [employer] Hypertension Guidelines: [place] [employer] Hypertension Guidelines. Normal BP Less than 120/80. Elevated BP 120/80. Hypertension Stage 1: BP 130-139/80-89. Hypertesnion Stage 2: BP 140 or higher/90 or higher. Hypertension Crisis: BP higher than 180/120 Peak Exercise Blood Pressure:: 140/62 Outcomes/Goals: Able to verbalize/achieve optimal blood pressure <130/80, Incorporates diet changes & exercise for blood pressure control by DC, Other additional outcomes/goals Interventions/plan: Instruct on optimal blood pressure, hypertension & medications, Instruct on effects of sodium, alcohol, stress, exercise &hypertension, Other additional plan/interventions 30 day Reassessments:: Progressing - encouraged to take meds - Tobacco Cessation Referral Smoking Cessation Referral:: No Individual Education/Counseling:: No Education Schedule Given:: Yes Core - 60-Day Assessment Core - 90 Day Assessment Core - Final Assessment Psychosocial - Initial Assess Psychosocial - 30-Day Assess - VIsit Date of Eval: 01/22/22 Session #:: 10 Not Applicable: No Psychosocial - 60-Day Assess Psychosocial - 90-Day Assess Psychosocial - Final Assessmen Patient Health Questionnaire 30-Day Re-eval Assessment 1. Little interest or pleasure in doing things: Not at all 2. Feeling down, depressed, or hopeless: Not at all 3. Trouble falling or staying asleep, or sleeping too much: Several days 4. Feeling tired or having little energy: Several days 5. Poor appetite or overeating: Not at all 6. Feeling bad about yourself -- or that you are a failure or have let yourself or your family down: Not at all 7. Trouble concentrating on things, such as reading the newspaper or watching television: Not at all 8. Moving or speaking so slowly that other people could have noticed. Or the opposite - being so fidgety or restless that you have been moving around a lot more than usual: Not at all 9. Thoughts that you would be better off , or of hurting yourself in some way: Not at all How difficult have these problems made it for you to do your work, take care of things at home, or get along with other people?: Not difficult at all Total Score: 2 Self-Efficacy 30-Day Re-eval Assessment We would like to know how confident you are in doing certain activities. Please select your confidence level for:: Select your confidence level for the following using the scale 1-10 where 1 is not at all confident and 10 is totally confident. Your score is the average of all 6 responses. Fatigue: How confident are you that you can keep the fatigue caused by your disease from interfering with the things you want to do? Select Number: 10 Physical Discomfort or Pain: How confident are you that you can keep the physical discomfort or pain of your disease from interfering with the things you want to do? Select Number: 10 Emotional Distress: How confident are you that you can keep the emotional distress caused by your disease from interfering with the things you want to do? Select Number: 10 Other Symptoms or Health Problems: How confident are you that you can keep other symptoms or health problems from interfering with the things you want to do? Select Number: 10 Different Tasks and Activities: How confident are you that you can do the different tasks and activities needed to manage your health condition so as to reduce your need to see a doctor? Select Number: 10 Medication: How confident are you that you can do things other than just taking medication to reduce how much your illness affects your everyday life? Select Number: 7 Total Score:: 9 Nutrition Survey
[2022-01-22 11:22] VITALS: BP 108/58; BP 140/62; BMI 28.5
== END 2022-02-12 23:59 ==
LOC: CR 10:30
PROVIDERS: PCP Family Medicine; Referring Provider Internal Medicine Cardiovascular Disease; Visit Provider Internal Medicine Cardiovascular Disease
DX: I25.10 Atherosclerotic heart disease of native coronary artery without angina pectoris (principal); I48.0 Paroxysmal atrial fibrillation; I45.10 Unspecified right bundle-branch block; I10 Essential (primary) hypertension; E78.5 Hyperlipidemia, unspecified; R42 Dizziness and giddiness; Z95.1 Presence of aortocoronary bypass graft; Z95.5 Presence of coronary angioplasty implant and graft
CPT/HCPCS: 93798

== ENCOUNTER 2022-02-22 10:30 | Outpatient (RCR) | payer MEDICARE, SELFPAY ==
[2022-01-22 11:22] VITALS: BMI 28.5
[2022-02-13 01:37] VITALS: BP 108/58; BP 140/62
== END 2022-03-15 23:59 ==
LOC: CR 10:30
PROVIDERS: PCP Family Medicine; Referring Provider Internal Medicine Cardiovascular Disease; Visit Provider Internal Medicine Cardiovascular Disease
DX: I25.10 Atherosclerotic heart disease of native coronary artery without angina pectoris (principal); I48.0 Paroxysmal atrial fibrillation; I45.10 Unspecified right bundle-branch block; I10 Essential (primary) hypertension; E78.5 Hyperlipidemia, unspecified; R42 Dizziness and giddiness; Z95.1 Presence of aortocoronary bypass graft; Z95.5 Presence of coronary angioplasty implant and graft
CPT/HCPCS: 93798

== ENCOUNTER → 2023-01-28 | Outpatient (CLI) | payer MEDICARE, SELFPAY ==
[2022-01-22 11:22] VITALS: BMI 28.5
[2023-01-28 09:41] LABS: AST(SGOT) 29 U/L (15-37); Alanine Aminotransfer ALT/SGPT 33 U/L (16-61); Albumin, Serum 3.7 g/dL (3.2-5.0); Alkaline Phosphatase 128 U/L (45-117); Bilirubin, Direct 0.16 mg/dL (0.00-0.30); Cholesterol 120 mg/dL (200); Globulin 3.5 g/dL (2.2-4.2); High Density Lipoprotein 42 mg/dL; Protein, Total 7.2 g/dL (6.4-8.2); Triglycerides 123 mg/dL; Very Low Density Lipoprotein 25 mg/dL (5-40)
== END | disposition home or self-care (01) ==
LOC: LAB 08:18
PROVIDERS: PCP Family Medicine; Referring Provider Nurse Practitioner Family; Visit Provider Nurse Practitioner Family
DX: E78.5 Hyperlipidemia, unspecified (principal); I25.10 Atherosclerotic heart disease of native coronary artery without angina pectoris
CPT/HCPCS: 36415; 80061; 80076

== ENCOUNTER → 2023-04-01 | Outpatient (CLI) | payer MEDICARE, SELFPAY ==
[2022-01-22 11:22] VITALS: BMI 28.5
[2023-04-01 19:14] LABS: Anion Gap 6 (5-15); BUN 24 mg/dL (7-18); BUN/Creat Ratio 23.5 RATIO (10-20); Calcium,Total 8.7 mg/dL (8.5-10.1); Chloride 108 mmol/L (98-107); Creatinine, Serum 1.02 mg/dL (0.70-1.30); EST Glomerular Filtration Rate 75 mL/min (>60); Est Glom Filt Rate - Afr Amer 91 mL/min (>60); Glucose 174 mg/dL (74-106); Potassium 3.9 mmol/L (3.5-5.1); Sodium Level 139 mmol/L (136-145)
== END | disposition home or self-care (01) ==
LOC: LAB 14:49
PROVIDERS: PCP Family Medicine; Visit Provider Nurse Practitioner Family
DX: I10 Essential (primary) hypertension (principal)
CPT/HCPCS: 36415; 80048

== ENCOUNTER 2023-04-04 15:10 | Emergency (ER) | payer MEDICARE, SELFPAY ==
[2022-01-22 11:22] VITALS: BMI 28.5
[2023-04-04 15:20] VITALS: BP 125/70; PULSE 60; RESP 16; TEMP 36.6; O2SAT 99
[2023-04-04 15:23] VITALS: BMI 31.0
--- NOTE | 2023-04-04 16:44 | RAD_ITS ---
INDICATION: back pain EXAMINATION/TECHNIQUE: X-RAY - XR Spine Lumbar 2 or 3 Views COMPARISON: No relevant prior comparison study available FINDINGS: VERTEBRAE: Preserved vertebral body height. No fracture. No spondylolisthesis. Preservation of the normal lumbar lordosis. Diffuse facet arthropathy which is greatest at the lower lumbar spine. Lumbarization of S1. DISCS: Mild disc space narrowing of L4-L5. Prominent endplate osteophytes throughout the lumbar spine. INCLUDED ABDOMEN: Included bowel gas pattern is non-obstructive. Aortic calcifications. RAD/Lumbar Spine 2 or 3 Views IMPRESSION: No evidence of lumbar spinal fracture or spondylolisthesis. Mild to moderate degenerative changes of the lumbar spine. Electronically Signed: Darwin Villafuerte MD at 17:31 EST ,
[2023-04-04] MEDS: Ondansetron ODT 4 MG Tablet PO (16:53)
[2023-04-04] MEDS: Morphine 4 MG/ML Syringe IM (16:53)
--- NOTE | 2023-04-04 17:05 | RAD_ITS ---
INDICATION: back pain EXAMINATION/TECHNIQUE: X-RAY - XR Spine Thoracic 3 Views COMPARISON: Prior study dated: 09/17/2020 FINDINGS: VERTEBRAE: Preserved vertebral body height. No fracture. No spondylolisthesis. Preservation of the normal thoracic kyphosis. No significant facet arthropathy. DISCS: Disc spaces are maintained. Endplate osteophytes throughout the thoracic spine. INCLUDED CHEST/ABDOMEN: No acute abnormalities. The visualized lungs are clear. RAD/Thoracic Spine 3 Views IMPRESSION: No evidence of thoracic spinal fracture or spondylolisthesis. Mild degenerative change throughout. Electronically Signed: Darwin Villafuerte MD at 17:34 EST ,
--- NOTE | 2023-04-04 18:01 | EX.ED.DYSGE1 ---
HPI <DEVANTE Harrell - Last Filed: 04/04/23 18:07> History of Present Illness Chief Complaint: Back Narrative Narrative: 77-year-old male with history of CAD, hypertension, hyperlipidemia who presents to the emergency department for back pain. Patient states he has been having lower back pain for multiple years however over the last 3 to 4 days has been getting significantly worse. He states is localized right in his lower back. Patient states he has been having some shooting pains that stops him and he feels that he has to sit down. He is having difficulty standing straight up. He denies any weakness to his lower extremities. Denies any bowel or bladder incontinence. Patient states he sometimes does urine or dribble secondary to his prostate procedure years ago and this is normal. Denies any history of IV drug abuse. Denies any falls or trauma. PFSH <DEVANTE Harrell - Last Filed: 04/04/23 18:07> [facility] Medical History (Reviewed 01/31/23 @ 10:04 by Lele Hanley [employer]EV[employer]TER [employer] STITCH, SLEEVE [employer]TER S[employer] STITCH-C) Atherosclerosis of coronary artery of telida heart without angina pectoris Dilated aortic root Essential hypertension Gout History of diverticulosis Hyperlipidemia Incomplete right bundle branch block Internal hemorrhoid Osteoarthritis Palmar fascial fibromatosis [dupuytren] Prostate cancer Type 2 diabetes mellitus Home Medications aspirin 81 mg tablet,delayed release (Adult Aspirin Regimen) 81 mg PO DAILY 10/14/21 [History Last Taken Unknown] atorvastatin 80 mg tablet 80 mg PO QHS #90 tabs 09/15/22 [Rx Last Taken Unknown] benazepril 20 mg tablet 40 mg (2 x 20 mg) PO DAILY #180 tabs 03/17/23 [Rx Last Taken Unknown] spironolactone 25 mg tablet 25 mg PO QPM #90 tabs 03/17/23 [Rx Last Taken Unknown] hydrocodone-acetaminophen 5-325mg 5mg-325mg 1 tab PO Q8H PRN Pain 3 days #12 TABLETS 04/04/23 [Rx Last Taken Unknown] Allergy/AdvReac Type Severity Reaction Status Date / Time No Known Allergies Allergy Verified 01/31/23 09:53 Family History (Reviewed 01/31/23 @ 10:04 by Lele Hanley [employer]ITCH, SLEEVE SETTER [employer] STITCH-C) Mother , Age 84 Diabetes Heart disease Father , Age 88 CAD (coronary artery disease) Sister Cancer breast Sister , Age 60 Cancer lymph nodes Surgical History (Reviewed 01/31/23 @ 10:04 by Lele Hanlye [employer]TER [employer] STITCH, SLEEVE SETTER [employer] STITCH-C) H/O coronary artery bypass surgery (09/30/21) History of cardioversion (09/2020) History of coronary artery stent placement (10/18/14) History of left heart catheterization (09/03/21) History of left knee replacement (2013) History of radical prostatectomy (11/19/21) History of tonsillectomy and adenoidectomy (1947) History of total left hip replacement (03/2016) History of total right hip replacement (1996) History of varicocele (1979) Social History (Reviewed 01/31/23 @ 10:04 by Lele Hanley [employer] STITCH, SLEEVE SETTER S[employer] STITCH-C) Smoking Status: Former smoker how long ago did patient quit smoking: Quit smoking cigarettes in 1969, quit cigars 1 month ago alcohol intake: current details: occasional substance use type: does not use caffeine: Yes Type: coffee Number of servings: 2 ROS <DEVANTE Harrell - Last Filed: 04/04/23 18:07> ROS ED ROS Narrative Constitutional: Negative for fever, chills, weight loss, weakness Eyes: Negative for vision loss, vision change, double vision ENT: Negative for any sore throat, ear pain, congestion Cardiovascular: Negative for any chest pain, tightness, palpitations Respiratory: Negative for any cough, sputum production, hemoptysis, dyspnea, dyspnea on exertion, orthopnea Gastrointestinal: Negative for any abdominal pain, nausea, vomiting, diarrhea, constipation, blood in stool, blood in vomit : Negative for any urinary frequency, dysuria, retention, blood in urine Muscle skeletal: Negative for any myalgias, arthralgias, neck pain. Positive for lower back pain Neurological: Negative for any headache, syncope, numbness or tingling, dizziness Skin: Negative for any rashes, lumps, itching, abrasions, lacerations Psychiatric: Negative for any depression, anxiety, stress, suicidal ideation, homicidal ideation Hematologic: Negative for any easy bruising, excessive bruising, easy bleeding Allergies: Negative for any eczema, hives, rash EXAM <DEVANTE Harrell - Last Filed: 04/04/23 18:07> Physical Exam Narrative Exam Narrative: Vital signs reviewed. HEET: Head normocephalic atraumatic, TMs clear bilaterally. Posterior pharynx is clear, moist mucous membranes. Nares clear bilaterally. Neck: Supple with no lymphadenopathy or tenderness. No signs of meningismus. Cardiac: Regular rate and rhythm no murmurs gallops or rubs, equal peripheral pulses bilaterally. Respiratory: Lungs clear to auscultation bilaterally. No chest tenderness. Abdomen: Soft, nontender, nondistended. No abdominal bruit or pulsatile masses. No hepatosplenomegaly Extremities: No peripheral edema, no signs of gross trauma or deformity. Active full range of motion of all extremities. Neuro: Cranial nerves II through XII intact, no focal neurological deficits. Skin: Clean dry and intact with no rash, purpura, petechiae, vesicles or pustules. Backs/flank: No CVA tenderness, patient does have midline spinal tenderness to the lumbar spine. There is no ecchymosis, there is no crepitus, no redness. This pain also is paraspinal. Worse with movement., no deformity. Patient's physical examination yields no red flag signs, no cauda equina symptoms. Psych: Normal mood and affect. No SI, HI or acute psychosis. Const Vital Signs: 04/04/23 15:20 04/04/23 15:20 Temperature 98 F Temperature Source Temporal Pulse Rate 60 Respiratory Rate 16 16 Blood Pressure 125/70 H Blood Pressure Mean 88 Pulse Ox 99 Oxygen Delivery Method Room Air Room Air <Dr. Marlo Harding DO - Last Filed: 04/04/23 20:04> Physical Exam Const Vital Signs: 04/04/23 15:20 04/04/23 15:20 Temperature 98 F Temperature Source Temporal Pulse Rate 60 Respiratory Rate 16 16 Blood Pressure 125/70 H Blood Pressure Mean 88 Pulse Ox 99 Oxygen Delivery Method Room Air Room Air [facility] <DEVANTE Harrell - Last Filed: 04/04/23 18:07> MDM Radiography Diagnostic Testing: Clinical Impression(s) from Imaging Studies Lumbar Spine X-Ray 04/04/23 16:44 IMPRESSION: No evidence of lumbar spinal fracture or spondylolisthesis. Mild to moderate degenerative changes of the lumbar spine. Electronically Signed: Darwin Villafuerte MD at 17:31 EST , Thoracic Spine X-Ray 04/04/23 17:05 IMPRESSION: No evidence of thoracic spinal fracture or spondylolisthesis. Mild degenerative change throughout. Electronically Signed: Darwin Villafuerte MD at 17:34 EST , Treatment and Re-Evaluation :: Patient appears generally well, patient appears nontoxic, vital signs are stable. Presenting to the emergency department with lower back pain. This does appear to be acute on chronic. Patient had no significant trauma. Differential diagnosis includes lumbar sprain, cauda equina, lumbar fracture. There is low suspicion for any cauda equina, lumbar fracture. There is no physical evidence of this on exam. Patient did receive x-rays of the thoracic and lumbar spine, these were interpreted by the ER physician, these did show some degenerative changes however no acute process. Patient was given 4 mg IM morphine, 4 mg ODT Zofran here. On reevaluation, the patient felt much better. Patient be on a short course of [place], he will follow-up closely with his PCP, I also refer him to pain management. He is happy with the plan of care, all questions were answered. He was given return precautions, patient stable for discharge <Dr. Marlo Harding, DO - Last Filed: 04/04/23 20:04> [facility] Narrative Medical decision making narrative: I have personally performed a face to face assessment of the patient and have reviewed the SHAR Note. I performed a substantive portion of the visit including all aspects of the following. My hernandez findings include: History: Patient presents with back pain that became worse today. Patient states it came on gradually. Patient states it is over his lower back. Patient states it is constant. Patient states it is worse with certain movements. Patient describes his pain as sharp. Patient states it is mainly over the lower thoracic and lumbar areas. Patient denies any trauma or injury. Patient denies any radiation of the pain. Patient denies any bowel or bladder changes. Patient denies any saddle anesthesia. Exam: Vital signs are stable. Patient is afebrile. Patient is in no acute distress. Musculoskeletal exam reveals tenderness over the lumbar spine and paraspinal muscles. There is no bony crepitance or step-off. Range of motion was slightly limited in all motions of the lumbar spine secondary to pain. Strength is 5/5 bilaterally in the lower extremities. There are no sensory deficits noted. Medical Decision Making: Differential diagnosis includes lumbar compression fracture, thoracic compression fracture, lumbosacral strain, and thoracic strain. X-rays of the lumbar spine will be obtained to assess for occult fracture. X-rays of the thoracic spine will be obtained to assess for occult fracture. X-rays of the lumbar spine were obtained. There are 2 views. On my independent interpretation, there is no acute fracture or spondylolisthesis. There are some degenerative changes noted. Radiologist also interpreted the x-rays and agrees. X-rays of the thoracic spine were obtained. There are 3 views. On my independent interpretation, there is no acute fracture or spondylolisthesis. There are some degenerative changes noted. Radiologist also interpreted the x-rays and agrees. Patient was advised of his findings. Patient was instructed use ice to the area. He was given a prescription for a short course of [place] to take as needed for severe pain. Patient was instructed to follow-up with his primary care physician in 5 to 7 days. Patient understood and was agreeable with the plan. All questions were answered. Radiography Diagnostic Testing: Clinical Impression(s) from Imaging Studies Lumbar Spine X-Ray 04/04/23 16:44 IMPRESSION: No evidence of lumbar spinal fracture or spondylolisthesis. Mild to moderate degenerative changes of the lumbar spine. Electronically Signed: Darwin Villafuerte MD at 17:31 EST , Thoracic Spine X-Ray 04/04/23 17:05 IMPRESSION: No evidence of thoracic spinal fracture or spondylolisthesis. Mild degenerative change throughout. Electronically Signed: Darwin Villafuerte MD at 17:34 EST , Discharge Plan Triage Chief Complaint: Back ED Midlevel Provider: Salvatore Wilkinson ED Provider: Marlo Harding Dx/Rx/DC Orders Clinical Impression: Arthritis, Acute lumbar myofascial strain Instructions: Understanding Lumbosacral Strain Prescriptions: New hydrocodone-acetaminophen 5-325 mg tablet 1 tab PO Q8H PRN (Reason: Pain) 3 Days Qty: 12 0RF No Action aspirin [Adult Aspirin Regimen] 81 mg tablet,delayed release (DR/EC) 81 mg PO DAILY atorvastatin 80 mg tablet 80 mg PO QHS Qty: 90 3RF benazepril 20 mg tablet 40 mg PO DAILY Qty: 180 3RF spironolactone 25 mg tablet 25 mg PO QPM Qty: 90 4RF Primary Care Provider: Kraig Rider Referrals: Catia Negrete MD [Med Staff - Active Staff] - Kraig Rider MD [Primary Care Provider] - Activity Restrictions/Additional Instructions: Please ensure the ice, perform gentle stretching. Please return for any worsening symptoms Disposition Disposition: Home, Self Care Discharge Date/Time: 04/04/23 18:39
== END 2023-04-04 18:39 | disposition home or self-care (01) ==
PROVIDERS: Emergency Provider Emergency Medicine; PCP Family Medicine; Visit Provider Emergency Medicine
DX: M47.816 Spondylosis without myelopathy or radiculopathy, lumbar region (principal); E11.9 Type 2 diabetes mellitus without complications; I10 Essential (primary) hypertension; E78.5 Hyperlipidemia, unspecified; Z87.891 Personal history of nicotine dependence; I25.10 Atherosclerotic heart disease of native coronary artery without angina pectoris; S39.012A Strain of muscle, fascia and tendon of lower back, initial encounter; X58.XXXA Exposure to other specified factors, initial encounter
CPT/HCPCS: 72072; 72100; 96372; 99284

== ENCOUNTER → 2023-08-24 | Outpatient (CLI) | payer MEDICARE, SELFPAY ==
[2023-08-08 13:20] VITALS: BMI 28.5
--- NOTE | 2023-08-24 08:12 | MRI_ITS ---
STUDY: MRI LUMBAR SPINE WITHOUT CONTRAST REASON FOR EXAM: Male, 78 years old. lumbar radiculopathyinto L leg TECHNIQUE: Standardized fat and water weighted pulse sequences were obtained in the sagittal and axial planes. COMPARISON: None FINDINGS: Normal lumbar lordosis. Mild to moderate levoscoliosis is present. No marrow edema or fracture or compression deformity seen. Normal conus medullaris that terminates at the L1 level. A small simple cyst is seen in the left kidney which does not require any additional imaging. T12-L1: Small anterior disc osteophyte complex. Mild disc space narrowing without posterior disc herniation or bulging mild facet joint hypertrophy. Normal central canal and bilateral lateral recesses. Normal bilateral intervertebral neural foramina. L1-2: Normal endplates. Normal disc height, hydration and morphology. Normal bilateral facet joints. Normal central canal and bilateral lateral recesses. Normal bilateral intervertebral neural foramina. L2-3: Diffuse disc desiccation with mild disc space narrowing without disc herniation or bulging. Mild anterior endplate spurring Normal bilateral facet joints. Normal central canal and bilateral lateral recesses. Normal bilateral intervertebral neural foramina. L3-4: Normal endplates. Diffuse disc desiccation. Normal disc height and morphology. Mild facet joint hypertrophy. Mild central canal stenosis. Normal bilateral lateral recesses. Normal bilateral intervertebral neural foramina. L4-5: Diffuse disc desiccation with mild disc space narrowing and diffuse disc bulging. Severe central canal stenosis with a pinhole opening and flattening of the thecal sac due to severe facet joint and ligamenta flava hypertrophy. Mild fluid distention of the facet joints. Mild bilateral foraminal stenosis with posterior nerve root impingement. L5-S1: Normal endplates. Diffuse disc desiccation with mild posterior disc space narrowing. Normal bilateral facet joints. Normal central canal and bilateral lateral recesses. Normal bilateral intervertebral neural foramina. Normal visualized sacral ala. Normal visualized paraspinous soft tissue structures. MRI/Spine Lumbar (Routine) IMPRESSION: 1. Multilevel degenerative changes, as described above. 2. Severe central canal stenosis at L4-L5 Electronically Signed: Glen Trevino MD at 12:34 EDT ,
== END | disposition home or self-care (01) ==
LOC: MRI 08:04
PROVIDERS: PCP Family Medicine; Referring Provider Orthopaedic Surgery Orthopaedic Surgery of the Spine; Visit Provider Orthopaedic Surgery Orthopaedic Surgery of the Spine
DX: M54.16 Radiculopathy, lumbar region (principal)
CPT/HCPCS: 72148

== ENCOUNTER → 2023-09-02 | Outpatient (CLI) | payer MEDICARE, SELFPAY ==
[2023-08-08 13:20] VITALS: BMI 28.5
[2023-09-02 10:22] LABS: AST(SGOT) 22 U/L (15-37); Alanine Aminotransfer ALT/SGPT 33 U/L (16-61); Albumin, Serum 3.6 g/dL (3.2-5.0); Alkaline Phosphatase 93 U/L (45-117); Bilirubin, Direct 0.17 mg/dL (0.00-0.30); Cholesterol 233 mg/dL (200); Globulin 3.3 g/dL (2.2-4.2); High Density Lipoprotein 47 mg/dL; Protein, Total 6.9 g/dL (6.4-8.2); Triglycerides 119 mg/dL; Very Low Density Lipoprotein 24 mg/dL (5-40)
== END | disposition home or self-care (01) ==
LOC: LAB 08:53
PROVIDERS: PCP Family Medicine; Referring Provider Nurse Practitioner Family; Visit Provider Nurse Practitioner Family
DX: E78.00 Pure hypercholesterolemia, unspecified (principal)
CPT/HCPCS: 36415; 80061; 80076

== ENCOUNTER → 2023-10-29 | Outpatient (CLI) | payer MEDICARE, SELFPAY ==
[2023-08-08 13:20] VITALS: BMI 28.5
[2023-10-29 09:24] LABS: Absolute Lymphocyte Count 0.67 X10^3/uL (0.83-4.51); Basophil# 0.03 X10^3/uL; Basophil% 0.6 % (0-1); Eosinophil# 0.14 X10^3/uL; Eosinophils% 2.6 % (0-5); Hematocrit 39.8 % (40-54); Hemoglobin 12.5 g/dL (13.0-16.5); Lymphocyte # 0.67 X10^3/ul (0.83-4.51); Lymphocyte % 12.4 % (19-41); Mean Corp Hgb Conc 31.4 g/dL (32-36); Mean Corpuscular Hgb 28.5 pg (27.0-32.0); Mean Corpuscular Volume 90.9 fL (80-94); Mean Platelet Vol. 10.1 fl (6.2-12.0); Monocyte# 0.54 X10^3/uL; NRBC Flagged by Analyzer 0 % (0-5); Neutrophil # 4.01 X10^3/uL (2.7-7.7); Neutrophil % 74.2 % (47-70); Platelet Count 238 K/mm3 (150-450); RBC Distribution Width CV 13.7 % (11.6-14.6); RBC Distribution Width SD 46.2 fl (35.1-43.9); Red Blood Count 4.38 M/mm3 (4.6-6.2); White Blood Count 5.4 K/mm3 (4.4-11.0)
[2023-10-29 09:52] LABS: Hemoglobin A1c 6.7 % (3.8-5.6)
[2023-10-29 10:36] LABS: ALB/GLOB Ratio 1.2 RATIO (0.9-2.4); AST(SGOT) 28 U/L (15-37); Alanine Aminotransfer ALT/SGPT 35 U/L (16-61); Albumin, Serum 3.8 g/dL (3.2-5.0); Alkaline Phosphatase 119 U/L (45-117); Anion Gap 5 (5-15); BUN 18 mg/dL (7-18); BUN/Creat Ratio 17.8 RATIO (10-20); Calcium,Total 9.3 mg/dL (8.5-10.1); Chloride 108 mmol/L (98-107); Cholesterol 125 mg/dL (200); Creatinine, Serum 1.01 mg/dL (0.70-1.30); EST Glomerular Filtration Rate 76 mL/min (>60); Est Glom Filt Rate - Afr Amer 92 mL/min (>60); Globulin 3.2 g/dL (2.2-4.2); Glucose 145 mg/dL (74-106); High Density Lipoprotein 37 mg/dL; Magnesium 1.7 mg/dL (1.6-2.6); PSA,Total - Annual Screen 0.05 ng/mL (0.00-4.00); Potassium 4.1 mmol/L (3.5-5.1); Sodium Level 139 mmol/L (136-145); Thyroid Stim Hormone (TSH) 1.55 uIU/mL (0.358-3.74); Triglycerides 110 mg/dL; Very Low Density Lipoprotein 22 mg/dL (5-40)
== END | disposition home or self-care (01) ==
LOC: LAB 08:31
PROVIDERS: PCP Family Medicine; Referring Provider Family Medicine; Visit Provider Family Medicine
DX: I10 Essential (primary) hypertension (principal); E11.9 Type 2 diabetes mellitus without complications; R25.2 Cramp and spasm; Z85.46 Personal history of malignant neoplasm of prostate
CPT/HCPCS: 36415; 80053; 80061; 83036; 83735; 84153; 84443; 85025; G0103

== ENCOUNTER → 2024-02-16 | Outpatient (CLI) | payer MEDICARE, SELFPAY ==
[2023-08-08 13:20] VITALS: BMI 28.5
[2024-02-16 13:38] LABS: Vitamin B12 576 pg/mL (211-911)
[2024-02-16 13:39] LABS: Iron 94 ug/dL (65-175); PSA,Total- Diagnostic 0.11 ng/mL (0.0-4.0)
== END | disposition home or self-care (01) ==
LOC: LAB 12:46
PROVIDERS: PCP Family Medicine; Referring Provider Family Medicine; Visit Provider Family Medicine
DX: I10 Essential (primary) hypertension (principal); Z85.46 Personal history of malignant neoplasm of prostate; R25.2 Cramp and spasm
CPT/HCPCS: 36415; 82607; 83540; 84153

== ENCOUNTER → 2024-04-23 | Outpatient (CLI) | payer MEDICARE, SELFPAY ==
[2023-08-08 13:20] VITALS: BMI 28.5
--- NOTE | 2024-04-23 07:06 | ECHOCS_ITS ---
Reason For Study: DYSPNEA Procedure This was a 2D Doppler, Color Flow transthoracic echocardiogram. The study was technically difficult. Contrast injection was performed. Exam performed portable in patient room. Left Ventricle Normal LV size. Left ventricular systolic function is normal. The left ventricular ejection fraction is 60 %. No regional wall motion abnormalities noted. Right Ventricle Normal RV size. Normal systolic function. Atria The left atrium is mildly enlarged. The right atrium is mildly enlarged. Mitral Valve Normal mitral valve. Tricuspid Valve Normal tricuspid valve. Mild to moderate (1-2+) tricuspid valve insufficiency. Pulmonary artery systolic pressure is 50 mmHg. Mild pulmonary hypertension. Aortic Valve Trisinus/trileaflet aortic valve. Mild focal aortic valve calcification. Pulmonic Valve Normal pulmonic valve. Great Vessels Normal aortic root. The pulmonary artery is normal size. Inferior vena cava collapse with respiration. Pericardium/Pleural No pericardial effusion. Medication Diluted definity 2ml given slow IV push to enhance endocardial definition. MMode/2D Measurements & Calculations LVIDd: 5.1 cm IVSd: 1.1 cm LVOT diam: 2.2 cm LVIDs: 3.1 cm LVPWd: 1.2 cm FS: 39.3 % LVOT area: 3.8 cm2 Ao root diam: 3.7 cm LAV(MOD-bp): 62.4 ml LVAd ap4: 30.3 cm2 LAV(MOD-bp) Indexed: 27.6 ml/m2 LVLd ap4: 8.3 cm LAV(MOD-sp2): 48.1 ml EDV(MOD-sp4): 91.2 ml LAV(MOD-sp4): 63.2 ml EDV(sp4-el): 93.2 ml LVAs ap4: 15.9 cm2 LVLs ap4: 6.2 cm ESV(MOD-sp4): 33.6 ml ESV(sp4-el): 34.2 ml EF(MOD-sp4): 63.1 % EF(sp4-el): 63.3 % SV(MOD-sp4): 57.6 ml SV(sp4-el): 59.0 ml LA A4 area: 22.2 cm2 SI(MOD-sp4): 25.4 ml/m2 LA dimension(2D): 4.6 cm RA A4 area: 23.9 cm2 Time Measurements MV dec time: 0.22 sec Doppler Measurements & Calculations MV E max shivam: 86.4 cm/sec Lat Peak E' Shivam: 12.4 cm/sec Med Peak E' Shivam: 7.4 cm/sec MV A max shivam: 30.8 cm/sec E/E' lat: 6.9 E/E' med: 11.7 MV E/A: 2.8 MV V2 max: 93.6 cm/sec MV dec slope: 390.4 cm/sec2 Ao V2 max: 104.5 cm/sec MV max P.5 mmHg Ao max P.4 mmHg MV V2 mean: 47.3 cm/sec Ao V2 mean: 72.1 cm/sec MV mean P.1 mmHg Ao mean P.4 mmHg MV V2 VTI: 27.9 cm Ao V2 VTI: 26.4 cm MVA(VTI): 2.8 cm2 AV (velocity ratio): 0.78 RAJ(I,D): 3.0 cm2 RAJ(V,D): 2.9 cm2 LV V1 max: 81.0 cm/sec SV(LVOT): 77.8 ml PA V2 max: 117.2 cm/sec LV V1 max P.6 mmHg PA V2 mean: 71.8 cm/sec LV V1 mean P.4 mmHg LV V1 mean: 55.3 cm/sec LV V1 VTI: 20.5 cm PI end-d shivam: 104.9 cm/sec TR max shivam: 335.6 cm/sec TR max P.1 mmHg ECHO/Echo Complete W/ Contrast Interpretation Summary Normal LV size. Left ventricular systolic function is normal. The left ventricular ejection fraction is 60 %. No regional wall motion abnormalities noted. Pulmonary artery systolic pressure is 50 mmHg. Mild pulmonary hypertension. Contrast injection was performed. Ordering Physician: Junior Johnson Referring Physician: Junior Johnson Performed By: Nayeli Serrano RCS
--- NOTE | 2024-04-23 16:34 | STRESSREP ---
Stress Test Report Exercise myocardial perfusion stress test. 78-year-old male with a history of coronary bypass surgery Stress protocol: Resting EKG demonstrates sinus bradycardia with a rate of 58 bpm resting blood pressure is [132/70] mmHg. incomplete right bundle branch block is noted. The patient exercised according to the regular Aldo protocol for a total duration of 4 minutes attaining a maximum heart rate of 122 bpm which was 86% of maximum predicted heart rate; the maximum workload was 7 metabolic equivalents. At rest there were no ST or T wave changes noted to suggest ischemia and at peak exercise upsloping ST changes only were noted which did not meet the criteria for ischemia. No clinical angina was noted the test was terminated due to the target heart rate being achieved/fatigue. The peak blood pressure was 210/70 mmHg. Rate-pressure product was 13,900. Myocardial perfusion protocol. 14.1 mCi of technetium 99m sestamibi was injected at rest. The patient exercised according to regular Aldo protocol for total duration of 4 minutes and at peak exercise 44.3 mCi of technetium 99m sestamibi was injected stress images were obtained stress and rest images were reconstructed in comparing the short axis vertical long and horizontal long axis. Gated images were also obtained. Perfusion SPECT analysis: Review of the stress images demonstrate normal uptake of tracer noted in all areas of the myocardium except for the basal to mid anterior wall with reduced perfusion. The resting images similarly demonstrate normal uptake of tracer noted in all areas of the myocardium. The above is suggestive of basal to mid anterior ischemia. Gated SPECT analysis: The gated ejection fraction is 76%. Conclusion: Abnormal exercise myocardial perfusion stress test at a moderate workload with basal to mid anterior ischemia Preserved ejection fraction. Reduced functional capacity
== END | disposition home or self-care (01) ==
PROVIDERS: PCP Family Medicine; Referring Provider Internal Medicine Cardiovascular Disease; Visit Provider Internal Medicine Cardiovascular Disease
DX: I10 Essential (primary) hypertension (principal); I27.20 Pulmonary hypertension, unspecified; Z95.1 Presence of aortocoronary bypass graft
CPT/HCPCS: 78452; 93017; 93306; A9500; Q9957; A4216; C8929

== ENCOUNTER 2024-05-03 10:27 | Day surgery (SDC) | payer MEDICARE, SELFPAY ==
[2023-08-08 13:20] VITALS: BMI 28.5
--- NOTE | 2024-04-27 11:05 | RAD_ITS ---
EXAM: XR CHEST, 2 VIEWS CLINICAL INDICATION: heart cath TECHNIQUE: Frontal and lateral views of the chest. COMPARISON: Two-view chest 09/17/2020 FINDINGS: LUNGS AND PLEURAL SPACES: Unremarkable. No consolidation or edema. No pneumothorax. No effusion. HEART: Unremarkable. Cardiac silhouette not enlarged. MEDIASTINUM: Surgical changes of the mediastinum. BONES/JOINTS: Degenerative changes of the thoracic spine. No acute fracture. SOFT TISSUES: Unremarkable. RAD/Chest PA and Lateral IMPRESSION: No acute findings in the chest. Electronically Signed: Elmo White MD at 12:07 EST ,
[2024-04-27 12:35] LABS: Absolute Lymphocyte Count 0.77 X10^3/uL (0.83-4.51); Absolute Neutrophil Count 5.3 X10^3/uL (2.0-7.7); Basophil# 0.02 X10^3/uL; Basophil% 0.3 % (0-1); Eosinophils% 2.8 % (0-5); Hematocrit 37.3 % (40-54); Hemoglobin 12.2 g/dL (13.0-16.5); Lymphocyte # 0.77 X10^3/ul (0.83-4.51); Mean Corp Hgb Conc 32.7 g/dL (32-36); Mean Corpuscular Hgb 29.2 pg (27.0-32.0); Mean Corpuscular Volume 89.2 fL (80-94); Mean Platelet Vol. 10.6 fl (6.2-12.0); Monocyte# 0.74 X10^3/uL; Monocyte% 10.5 % (0-10); NRBC Flagged by Analyzer 0 % (0-5); Neutrophil # 5.27 X10^3/uL (2.7-7.7); Platelet Count 260 K/mm3 (150-450); RBC Distribution Width CV 14.3 % (11.6-14.6); Red Blood Count 4.18 M/mm3 (4.6-6.2)
[2024-04-27 13:06] LABS: Anion Gap 5 (5-15); BUN 20 mg/dL (7-18); BUN/Creat Ratio 18.5 RATIO (10-20); Calcium,Total 9.2 mg/dL (8.5-10.1); Chloride 108 mmol/L (98-107); Creatinine, Serum 1.08 mg/dL (0.70-1.30); EST Glomerular Filtration Rate 70 mL/min (>60); Est Glom Filt Rate - Afr Amer 85 mL/min (>60); Glucose 107 mg/dL (74-106); Potassium 4.3 mmol/L (3.5-5.1); Sodium Level 140 mmol/L (136-145)
--- NOTE | 2024-04-27 14:46 | PCM.HP.BLA ---
History and Physical Date of Admission: 05/03/24 JOE FLETCHER, is a 78 M who presents for a diagnostic heart cath for an abnormal stress test. He is a gentleman with a history of hypertension, hyperlipidemia, coronary artery disease status post bare-metal stenting in February 2007 of the proximal circumflex artery. He had been doing well in the interim until October 2014 when he presented with chest discomfort he underwent a cardiac catheterization which demonstrated restenosis of the circumflex artery. He had a drug-eluting stent placed to this vessel. His left anterior descending artery demonstrated less than 50% stenosis in the right coronary artery demonstrated less than 50% stenosis. In August 2020, he was noted to be in atrial fibrillation and was started on anticoagulation and at that time had a negative stress test for ischemia and a Holter monitor demonstrated persistent atrial fibrillation for which he underwent successful DC cardioversion in September of the same year. While he was in [place] in June 2021, he experienced some sharp chest discomfort which went on for approximately 3 days. He was evaluated and discharged with a negative EKG and troponin. As part of his work-up for prostate carcinoma surgery, he underwent a stress test on 08/20/2021. This was considered to be abnormal. He proceeded with a heart catheterization on 08/21/2021 with [facility] that showed severe obstructive multivessel coronary artery disease. He proceeded with CABG x3 with MANTILLA to LAD, SVG to OM1, and SVG PDA on 09/30/[address] Riley. This also comprised of a biatrial Maze procedure (RF with cryo), and SUSHMA appendage clip (35 mm). Postoperatively he was noted to have junctional bradycardia. His anticoagulation and beta-scottie were discontinued upon discharge. He contacted our office expressing concerns regarding dizziness. He proceeded with a Holter monitor on 10/14/2021 that showed normal sinus rhythm with right bundle branch block and atrial fibrillation at 12.9% of total scan. Average heart rate was noted to be 85 bpm. His longest R to R interval was 6 seconds when he convert from atrial fibrillation. He was seen by [facility], Dr. Shree Ochoa, on 11/12/2021 with the plan to continue to observe. He was in the office last month and had noted shortness of breath with exertion when walking fast that improves with rest. This was not necessarily new or has worsened. He also noted some tingling in his hands and he also feels quite fatigued after walking. He really cannot walk much on an incline. He denies any chest pain whatsoever. He had a stress test this demonstrated : Abnormal exercise myocardial perfusion stress test at a moderate workload with basal to mid anterior ischemia. Preserved ejection fraction. Reduced functional capacity [facility] Medical History Prostate cancer Dilated aortic root Incomplete right bundle branch block Internal hemorrhoid Gout Type 2 diabetes mellitus Osteoarthritis Palmar fascial fibromatosis [dupuytren] Atherosclerosis of coronary artery of [place] heart without angina pectoris Essential hypertension History of diverticulosis Hyperlipidemia Surgical History History of radical prostatectomy (11/19/21) H/O coronary artery bypass surgery (09/30/21) History of left heart catheterization (09/03/21) History of cardioversion (09/2020) History of coronary artery stent placement (10/18/14) History of total left hip replacement (03/2016) History of total right hip replacement (1996) History of tonsillectomy and adenoidectomy (1947) History of left knee replacement (2013) History of varicocele (1979) Family History Mother , Age 84 Diabetes Heart disease Father , Age 88 CAD (coronary artery disease) Sister Cancer breast Sister , Age 60 Cancer lymph nodes Social History Smoking Status: Former smoker how long ago did patient quit smoking: Quit smoking cigarettes in 1970, quit cigars 1 month ago alcohol intake: current details: occasional substance use type: does not use caffeine: Yes Type: coffee Number of servings: 2 ROS Const Const: Positive for weakness (in bilateral legs - has back issues); Negative for fatigue, headache(s), daytime sleepiness or difficulty sleeping ENT ENT: Negative for headache(s), dizziness or Nosebleed/epistaxis Cardio Chest Pain: No Palpitations: No Edema: None Resp Respiratory: Positive for SOB with activity; Negative for SOB at rest, SOB orthopnea\SOB lying down or Cough GI GI: Negative nausea, vomiting or heartburn Neuro Neuro: Positive for weakness (in bilateral legs - has back issues); Negative for dizziness, lightheadedness, near syncope or headache(s) Endo Endo: Negative for fatigue Cardiology Exam Const Appearance: cooperative, healthy appearing, comfortable and no acute distress Nutritional Appearance: well nourished and obese Orientation: alert, awake and oriented x3 Head Head: normal to inspection Ears: hearing grossly normal bilaterally Nose: external nose normal Face and Sinus: face symmetric Mouth: moist mucous membranes Eyes General: appearance normal, both eyes and all related structures Eyelids: eyelids normal EOM: EOM intact bilaterally Neck Neck: normal visual inspection and no JVD Carotids: normal carotid upstroke Chest Chest inspection: normal inspection of the chest, symmetric chest movement and normal respiratory effort; Negative cough Auscultation: Bilateral: Clear to Auscultation Cardio Rate: regular rate Rhythm: regular rhythm Heart sounds: S1 normal and S2 normal; Negative rub, gallop or murmur GI GI: normal to inspection and obese Neuro General: patient alert, patient awake, patient oriented x3 and CN's II-XI intact bilaterally Skin Skin: no rashes or lesions noted Extremities Pulses: Normal: Right Posterior Tibial Pulse, Left Posterior Tibial Pulse, Right Radial Pulse and Left Radial Pulse Lower Extremity Edema: None: Bilateral Psych Psychological: normal affect Assessment & Plan Assessment/Plan (1) Abnormal stress test: (2) History of coronary artery stent placement: (3) H/O coronary artery bypass surgery: (4) Paroxysmal atrial fibrillation: (5) Essential hypertension: (6) Hyperlipidemia: QUALIFIERS: Hyperlipidemia type: unspecified Qualified Code(s): E78.5 - Hyperlipidemia, unspecified (7) Dilated aortic root: PLAN: Plan Will proceed with diagnostic heart cath. Follow up will be based on following.
[2024-05-02 08:39] VITALS: BMI 31.2
--- NOTE | 2024-05-03 13:20 | CL.D_ITS ---
Patient Name: JOE FLETCHER Study Date: 05/03/2024 Performing: Junior Johnson MD Ht: 73 inches 185.42 cm : 1945 Wt: 237 lbs 107.5 kg Age: 78 Gender: male BSA: 2.31 PROCEDURE(S) PERFORMED DC03-(48095)LHC/COR/LV/CABG CLINICAL PROFILE AND INDICATIONS Indications: Other Heart Failure: None Stress/Imaging Stress Test w/SPECT MPI: Yes Result: IndeterminantStress Test with SPECT MPI: Indeterminant CAD Presentations: Other: SOB CONCLUSIONS Coronary artery disease status post carotid bypass surgery with patent grafts noted with a MANTILLA to the LAD saphenous vein graft obtuse marginal branch and saphenous vein graft to the right coronary artery and preserved ejection fraction. RECOMMENDATIONS Medical therapy DESCRIPTION OF PROCEDURE The patient arrived to the procedure lab. The risks and benefits of the procedure as well as a full description of our services here and current unavailability of surgical backup were fully explained to the patient and/or their significant other prior to the catheterization. The Timeout was completed, verifying the correct patient and procedure. The patient's procedural site was prepped and draped in the usual fashion. Local anesthetic was given subcutaneously to left radial region with Lidocaine 2%. Using a modified Seldinger technique, arterial access was obtained via the left radial artery, a 6Fr sheath was inserted. Left internal mammary artery graft to the LAD selective angiography was performed in multiple views using a 5 Fr. IM catheter. Left Coronary Artery selective angiography was performed in multiple views using a 5 Fr. JL4 catheter. Right Coronary Artery selective angiography was then performed in multiple views using a 5 Fr. 3DRC (Oracio) catheter. Saphenous Vein graft to the OM 1 selective angiography was performed in multiple views using a 5 Fr. AR MOD catheter. Saphenous Vein graft to the RPDA selective angiography was performed in multiple views using a 5 Fr. AR MOD catheter. Left Ventriculography was performed in THOMAS projection using a 5 Fr. Pigtail catheter. LV to AO pullback pressures were then recorded.The arterial sheath was pulled and a TR Band was applied for hemostasis CORONARY ANGIOGRAPHY DOMINANCE: Right Dominant LEFT HEART ASSESSMENT Left Ventricular Ejection Fraction: by LV Gram 60 % Normal LV wall motion Normal Left Ventricular systolic function LEFT MAIN: Angiographically normal LEFT ANTERIOR DESCENDING ARTERY: Proximal high-grade 80% stenosis before the takeoff of the first diagonal branch with minimal disease the mid left anterior descending artery is totally occluded CIRCUMFLEX ARTERY: Previously stented vessel with moderate in-stent stenosis and then continuing to an obtuse marginal branch with competitive flow RIGHT CORONARY ARTERY: Moderate to severely diseased right coronary artery which is subtotally occluded in the midsegment GRAFTS: MANTILLA graft to the Mid LAD is patent Saphenous Vein graft to the 1st OM is patent Saphenous Vein graft to the RCA And then continues to the PDA and posterolateral is noted to be patent COMPLICATIONS No Complications PROCEDURE MEDICATIONS Fentanyl 50 mcg IV Versed 1 mg IV Versed 1 mg IV Oxygen: 2 L/min via nasal cannula Heparin given IA 05/03/2024 12:27:00 Verapamil 2.5mg, Ntg 100mcgs, 3000 units of Heparin given IA 05/03/2024 12:27:00 SUMMARY OF HEMODYNAMIC DATA Time AIR REST ECG 11:08:45 AO 127/49 (86) SA 12:32:55 LV 143/14, 23 12:57:15 LV 148/10, 20 12:57:23 LV 136/8, 19 12:58:02 LVp 137/10, 16 12:58:11 AOp 147/59 (92) 12:58:18 Signed By Junior Johnson MD On 05/03/2024 13:19:36 Junior Johnson MD
== END 2024-05-03 15:20 | disposition home or self-care (01) ==
PROVIDERS: Physician Assistant Medical; PCP Family Medicine; Referring Provider Internal Medicine Cardiovascular Disease; Visit Provider Internal Medicine Cardiovascular Disease
DX: T82.858A Stenosis of other vascular prosthetic devices, implants and grafts, initial encounter (principal); I48.0 Paroxysmal atrial fibrillation; I24.0 Acute coronary thrombosis not resulting in myocardial infarction; E11.9 Type 2 diabetes mellitus without complications; E78.5 Hyperlipidemia, unspecified; I10 Essential (primary) hypertension; Z95.5 Presence of coronary angioplasty implant and graft; Z95.1 Presence of aortocoronary bypass graft; Z87.891 Personal history of nicotine dependence; R94.39 Abnormal result of other cardiovascular function study; Z79.01 Long term (current) use of anticoagulants; I65.21 Occlusion and stenosis of right carotid artery; Y71.8 Miscellaneous cardiovascular devices associated with adverse incidents, not elsewhere classified
CPT/HCPCS: 36415; 71046; 80048; 85025; 93459; 99152; 99153; C1894; Q9967; C1769

== ENCOUNTER → 2024-08-28 | Outpatient (CLI) | payer MEDICARE, SELFPAY ==
[2023-08-08 13:20] VITALS: BMI 28.5
[2024-08-28 12:39] LABS: Absolute Lymphocyte Count 0.59 X10^3/uL (0.83-4.51); Absolute Neutrophil Count 4.3 X10^3/uL (2.0-7.7); Basophil# 0.03 X10^3/uL; Basophil% 0.5 % (0-1); Eosinophils% 5.1 % (0-5); Hematocrit 38.1 % (40-54); Hemoglobin 12.4 g/dL (13.0-16.5); Lymphocyte # 0.59 X10^3/ul (0.83-4.51); Lymphocyte % 10.1 % (19-41); Mean Corp Hgb Conc 32.5 g/dL (32-36); Mean Corpuscular Hgb 29.2 pg (27.0-32.0); Mean Corpuscular Volume 89.6 fL (80-94); Mean Platelet Vol. 10.3 fl (6.2-12.0); Monocyte# 0.61 X10^3/uL; Monocyte% 10.4 % (0-10); NRBC Flagged by Analyzer 0 % (0-5); Neutrophil # 4.33 X10^3/uL (2.7-7.7); Neutrophil % 73.7 % (47-70); POSITIVE DIFFERENTIAL YES; Platelet Count 229 K/mm3 (150-450); RBC Distribution Width SD 45.1 fl (35.1-43.9); Red Blood Count 4.25 M/mm3 (4.6-6.2); White Blood Count 5.9 K/mm3 (4.4-11.0)
[2024-08-28 12:56] LABS: Hemoglobin A1c 7.3 % (<=5.6)
[2024-08-28 13:02] LABS: ALB/GLOB Ratio 1.4 RATIO (0.9-2.4); AST(SGOT) 26 U/L (<=37); Alanine Aminotransfer ALT/SGPT 19 U/L (<=46); Alkaline Phosphatase 127 U/L (40-129); Anion Gap 10 (5-15); BUN 20 mg/dL (4-19); BUN/Creat Ratio 18.9 RATIO (10-20); Calcium,Total 9.2 mg/dL (7.6-11.0); Chloride 107 mmol/L (98-108); Cholesterol 112 mg/dL (<=200); Creatinine, Serum 1.04 mg/dL (0.70-1.20); EST Glomerular Filtration Rate 73 (>60); Globulin 2.8 g/dL (2.2-4.2); Glucose 122 mg/dL (70-99); High Density Lipoprotein 34 mg/dL; Low Density Lipoprotein Calc. 60 mg/dL; Potassium 4.5 mmol/L (3.3-5.1); Protein, Total 6.8 g/dL (5.9-8.4); Sodium Level 138 mmol/L (133-145); Total Bilirubin 0.66 mg/dL (0.00-1.30); Triglycerides 87 mg/dL; Very Low Density Lipoprotein 17 mg/dL (5-40); cholesterol:hdl ratio screen 3.26
== END | disposition home or self-care (01) ==
LOC: MFPLAB 09:21
PROVIDERS: PCP Family Medicine; Visit Provider Family Medicine
DX: I10 Essential (primary) hypertension (principal); E11.9 Type 2 diabetes mellitus without complications
CPT/HCPCS: 36415; 80053; 80061; 83036; 85025

== ENCOUNTER 2024-11-03 22:11 | Emergency (ER) | payer MEDICARE, SELFPAY ==
[2023-08-08 13:20] VITALS: BMI 28.5
[2024-11-03 22:14] VITALS: BP 179/76; PULSE 78; RESP 12; TEMP 37.1; O2SAT 99; BMI 31.4
--- NOTE | 2024-11-03 22:54 | ED.VIS.GI ---
HPI HPI - GI History of Present Illness Chief Complaint: Constipation Narrative Narrative: 79-year-old male recent knee surgery, on narcotic pain medication presents with 2 to 3 days of constipation. He relates history that he had a bowel movement before leaving the hospital. He does take the powder daily because has had problems with his bowels. He has history of urinary incontinence from prostate surgery in the past. He states that he likes to have a daily bowel movement, but he feels that there is hard stool in his rectum. He tried 2 fleets enemas without success. He presents with constipation over the last few days. No fevers or chills, no nausea or vomiting. PFSH [facility] Medical History Prostate cancer Dilated aortic root Incomplete right bundle branch block Internal hemorrhoid Gout Type 2 diabetes mellitus Osteoarthritis Palmar fascial fibromatosis [dupuytren] Atherosclerosis of coronary artery of [place] heart without angina pectoris Essential hypertension History of diverticulosis Hyperlipidemia Home Medications ?Medication ?Instructions ?Recorded ?Last Taken ?Type aspirin 81 mg tablet,delayed 81 mg PO DAILY 10/14/21 05/03/24 History release (Adult Aspirin Regimen) benazepril 40 mg tablet 40 mg PO DAILY #90 tabs 03/05/24 05/03/24 Rx ferrous sulfate 137 mg (45 mg 137 mg PO QDAY 03/27/24 Unknown History iron) tablet,extended release mecobalamin (vitamin B12) 500 mcg 500 mcg PO DAILY 03/27/24 Unknown History chewable tablet spironolactone 25 mg tablet 25 mg PO QPM #90 tabs 09/26/24 Unknown Rx atorvastatin 80 mg tablet 80 mg PO QHS #90 tabs 11/02/24 Unknown Rx Allergy/AdvReac Type Severity Reaction Status Date / Time No Known Allergies Allergy Verified 11/03/24 22:14 Family History Mother , Age 84 Diabetes Heart disease Father , Age 88 CAD (coronary artery disease) Sister Cancer breast Sister , Age 60 Cancer lymph nodes Surgical History History of radical prostatectomy (11/19/21) H/O coronary artery bypass surgery (09/30/21) History of left heart catheterization (09/03/21) History of cardioversion (09/2020) History of coronary artery stent placement (10/18/14) History of total left hip replacement (03/2016) History of total right hip replacement (1996) History of tonsillectomy and adenoidectomy (1948) History of left knee replacement (2013) History of varicocele (1979) Social History Smoking Status: Light Smoker (<10/day) how long ago did patient quit smoking: Quit smoking cigarettes in 1969, quit cigars 1 month ago alcohol intake: current details: occasional substance use type: does not use caffeine: Yes Type: coffee Number of servings: 2 ROS ROS ED ROS Narrative Review of systems positive for fecal impaction feeling, no fevers or chills, no nausea or vomiting. Positive constipation for the last few days. No exacerbating or alleviating factors. EXAM Physical Exam Narrative Exam Narrative: Afebrile. Vital signs noted. Nontoxic-appearing. Cardiovascular examination reveals regular rate and rhythm lungs are clear to auscultation bilaterally, abdomen is soft and nontender with positive bowel sounds, no guarding or rebound. Neurological examination nonfocal, nonlateralizing, standing with walker. Const Vital Signs: 11/03/24 22:14 11/04/24 00:14 Temperature 98.7 F Temperature Source Oral Pulse Rate 78 99 Respiratory Rate 12 16 Blood Pressure 179/76 H 166/70 H Blood Pressure Mean 110 102 Pulse Ox 99 95 Oxygen Delivery Method Room Air Room Air MDM MDM MDM Narrative Medical decision making narrative: Differential diagnosis includes but not limited to bowel obstruction versus fecal impaction versus slow transit constipation versus opiate bowel from narcotics with recent surgery and anesthesia. X-rays will be obtained the abdomen in 2 views and interpreted by myself to help rule out obstruction and to see the amount of fecal material throughout the colon/rectum. On my independent interpretation of the abdominal x-rays, there is a large amount of stool throughout the colon but no true fecal impaction noted in the rectum. Nonobstructive gas pattern. I reviewed the radiology report which confirms my independent interpretation. Chaperoned rectal examination/disimpaction was attempted. There is soft stool in the rectal vault. Patient was then administered a soapsuds enema. According to RN, he is satisfied with the result as he was able to have a bowel movement here in the emergency department. At this point in time I feel he can be discharged to follow-up. Return instructions to the emergency department were reviewed. Disposition is discharged home in stable condition. History & Record Review Discussion w/independent historian: Patient Radiography Diagnostic Testing: Clinical Impression(s) from Imaging Studies Abdomen X-Ray 11/03/24 23:00 IMPRESSION: CONSTIPATION. Reading Location: [facility] Discharge Plan Triage Chief Complaint: Constipation ED Provider: Sonu Rodriguez Dx/Rx/DC Orders Clinical Impression: Constipation, History of right knee surgery Instructions: ED Constipation (Adult) Prescriptions: No Action mecobalamin (vitamin B12) 500 mcg tablet,chewable 500 mcg PO DAILY ferrous sulfate 137 mg (45 mg iron) tablet extended release 137 mg PO QDAY aspirin [Adult Aspirin Regimen] 81 mg tablet,delayed release (DR/EC) 81 mg PO DAILY benazepril 40 mg tablet 40 mg PO DAILY Qty: 90 3RF spironolactone 25 mg tablet 25 mg PO QPM Qty: 90 4RF atorvastatin 80 mg tablet 80 mg PO QHS Qty: 90 3RF Primary Care Provider: Yecenia Villatoro Referrals: Yecenia Villatoro MD [Primary Care Provider] - 3-5 Days if not improving Activity Restrictions/Additional Instructions: Continue your bowel regime including [id number] stool softeners and/or MiraLAX as needed. Print Language: Portuguese Disposition Disposition: Home, Self Care
--- NOTE | 2024-11-03 23:00 | RAD_ITS ---
PROCEDURE: ABD INC DECUB AND/OR ERECT 11/03/2024 REASON FOR EXAM: CONSTIPATION TECHNIQUE: ABD INC DECUB AND/OR ERECT COMPARISON: L-spine radiographs 08/14/2023. FINDINGS: Bowel gas: Moderate constipation. No evidence of bowel obstruction. Bones: Prior bilateral hip replacements. Degenerative changes throughout the thoracolumbar spine. Other: Partially visualized median sternotomy and atrial appendage clip. RAD/Abd Inc Decub and/or Erect IMPRESSION: CONSTIPATION. Reading Location: [id number]
--- OUTSIDE RECORDS SUMMARY | 2024-11-03 23:03 | XMS RPT_ITS | CCD ---
Author Organization [facility] Care Team Providers Care Note Specialist Name Role Phone EDUARDO, EREN E Unavailable Unavailable EDUARDO, EREN E Unavailable Unavailable EDUARDO, EREN Unavailable Unavailable Dee Rider Unavailable Unavailable EDUARDO, EREN Unavailable Unavailable EDUARDO, EREN Unavailable Unavailable EDUARDO, EREN Unavailable Unavailable Dee Rider Unavailable Unavailable Dr. Dee Rider Primary Care Provider Dr. Dee Rider Referring Provider Dr. Junior Johnson Attending Provider [phone] Dee Rider MD Primary Care Provider Marie Bautista MD Unavailable Dr. Junior Johnson Referring Provider [phone] Junior Johnson Other Provider Marium Marrero RPh Unavailable Unavailable Clarke Rodriguez RN Unavailable Dee Rider MD Primary Care Provider Marie Bautista MD Unavailable Dr. Dee Rider Primary Care Provider Priscilla Valdivia Attending Provider Unavailable Dr. Dee Rider Referring Provider Roof PAEDIATRIC PHYSIOTHERAPIST, PAEDIATRIC PHYSIOTHERAPIST-Sonal Villalta Attending Provider Dr. Junior Johnson Attending Provider [phone] Dee Rider Primary Care Provider Priscilla Valdivia Attending Provider Unavailable Dee Rider MD Primary Care Provider Dr. Dee Rider Primary Care Provider Dr. Dee Rider Referring Provider Roof PAEDIATRIC PHYSIOTHERAPIST, PAEDIATRIC PHYSIOTHERAPIST-C Lele Villalta Attending Provider Dee Rider MD Primary Care Provider Marie Bautista MD Unavailable Shmuel CISNEROS MD, Daesung Unavailable Dr. Dee Rider Primary Care Provider Dr. Dee Rider Referring Provider Roof PAEDIATRIC PHYSIOTHERAPIST, PAEDIATRIC PHYSIOTHERAPIST-C Lele Villalta Attending Provider Lily CISNEROS, Marie Unavailable Dr. Dee Rider Primary Care Provider Dr. Dee Rider Referring Provider Roof PAEDIATRIC PHYSIOTHERAPIST, PAEDIATRIC PHYSIOTHERAPIST-C Lele Villalta Attending Provider Shmuel CISNEROS, Artur Unavailable Dr. Dee Rider Primary Care Provider Dr. Dee Rider Referring Provider Dr. Herberth Watson Attending Provider Dr. Junior Johnson Attending Provider Dee Rider MD Primary Care Provider Clemente VILLEGAS, Francheska Unavailable Unavailable WEE, CHRISTOPHER E Referring Unavailable WEE, CHRISTOPHER E Referring Unavailable WEE, CHRISTOPHER E Referring Unavailable WEE, CHRISTOPHER E Referring Unavailable WEE, CHRISTOPHER E Attending Unavailable SELF Referring Unavailable Yecenia Agrawal MD Primary Care Provider [phone] Junior Johnson MD Attending Provider Dr. Junior Johnson MD Referring Provider Yecenia Agrawal MD Attending Provider Dee Rider Primary Care Unavailable Dee Rider Referring Unavailable Roof PAEDIATRIC PHYSIOTHERAPIST, Lele Villalta Attending Unavailable Yecenia Agrawal Primary Care Unavailable Junior Johnson Referring Unavailable Elizabeth, Timberon Attending Unavailable Elizabeth, Junior Attending Unavailable Tanja, Chalon Primary Care Unavailable Tanja, Chalon Primary Care Unavailable Elizabeth, Timberon Referring Unavailable Elizabeth, Timberon Consulting Unavailable Talia Quinteros Attending Unavailabl e Elderbrock, Dee Referring Unavailable Elizabeth, Junior Attending Unavailable Elderbrock, Dee Primary Care Unavailable Elizabeth, Junior Attending Unavailable Elizabeth, Junior Referring Unavailable Tanja, Chalon Primary Care [facility] Unavailable Tanja, Chalon Attending Unavailable Tanja, Chalon Referring Unavailable Elderbrock, Dee Primary Care Unavailable Tanja, Chalon Attending Unavailable Elderbrock, Dee Primary Care Unavailable Tanja, Chalon Attending Unavailable Tanja, Chalon Referring Unavailable TANJA CISNEROS, [facility] Primary [facility] Physician CRIS CISNEROS, DR GRISELDA Mistry Attending Unavailab Cary CISNEROS, [facility] Primary Care Unavailable TANJA CISNEROS, [facility] Primary Care Unavailable CRIS CISNEROS, DR GRISELDA Mistry Attending Unavailab Rafael CISNEROS, DR GRISELDA Mistry Attending Unavailab diana AGRAWAL MD, [facility] Primary Care Unavailable MEILIA NICHOLS, MILKA Briggs Consulting Louisa LYNCH MD, DR GRISELDA Mistry Admitting Unavailab Rafael CISNEROS, DR GRISELDA Mistry Attending Unavailab Cary CISNEROS, [facility] Unavailable Medications Current Medications Medication Drug Class(es) Dates Sig (Normalized) Sig (Original) acetaminophen 500 mg oral tablet (20 sources) Start: 10-24-2024 End: 11-07-2024 take 1 tablet by mouth once daily Tylenol Extra Strength 500 mg oral tablet Dose : 1,000 mg = 2 tab(s), Oral, TID, PRN as needed for pain, not to exceed 3000 mg/day, # 100 tab(s), 0 Refill(s), 11/07/24 8:53:00 AM EDT, Pharmacy: [id number], 185.4, cm, 10/23/24 14:49:00 EDT, Height, kg, 10/23/24 14:49:00 EDT, Dosing Weight Start Date: 10/24/24 Stop Date: 11/07/24 Status: Ordered Quantity: 100.0 Unit: tab(s) Repeat number: 1 Start: 10-06-2021 End: 05-20-2022 take 2 tablets by mouth every six hours as needed acetaminophen (TYLENOL) 325 mg tablet 2 tablets by ORAL/FEEDING TUBE route every 6 hours as needed for pain. 0 10/06/2021 05/20/2022 Discontinued Comment on above: 2 tablets by ORAL/FE EDING TUBE route every 6 hours as needed for pain. acetaminophen 325 mg / oxyCODONE hydrochloride 5 mg oral tablet (2 sources) Opioid Agonist Start: End: take 1 tablet by mouth every eight hours as needed for pain oxyCODONE-acetaminophe n (PERCOCET) 5-325 mg tablet Indications: Post-operative pain Take 1 tablet by mouth every 8 hours as needed for pain for up to 5 days. 15 tablet 0 11/20/2021 11/25/2021 Active Comment on above: Take 1 tablet by deisi th every 8 hours as needed for pain for up to 5 days. aspirin 81 mg oral tablet (20 sources) Platelet Aggregation Inhibitor, Nonsteroidal Anti-inflammatory Drug Start: End: take 1 tablet by mouth twice daily at mealtime aspirin Dose : 81 mg = 1 tab(s), Oral, BIDM, Take 81 mg aspirin twice daily with food for 4 weeks postoperatively for DVT prophylaxis., 0 Refill(s) Start Date: 10/24/24 Stop Date: 11/23/24 Status: Ordered Repeat number: 1 Start: 10-14-2021 take 1 tablet by deisi th once daily Aspirin (Adult Aspirin Regimen) 81 mg tablet,delayed release (DR/EC) Active 81 mg PO DAILY October 14, 2021 12:00am Start: 07-26-2018 End: 10-10-2021 Aspirin (Adult Low Dose Aspi rin) 81 mg tablet,delayed release (DR/EC) Discontinued 81 mg PO daily 90 July 26, 2018 12:00am October 10, 2021 7:46pm Start: 03-19-2016 End: 07-26-2018 Aspirin 325 MG tablet Discon tinued 161 mg PO DAILY@March 19, 2016 1:19pm July 26, 2018 9:18am Start: 03-19-2016 End: 07-26-2018 take 161 mg by mouth once daily Aspirin Discontinued 161 MG PO DAILY@March 19, 2016 1:19pm July 26, 2018 9:18am Start: 11-28-2013 End: 03-19-2016 take 1 tablet by mouth once daily Aspirin 325 MG tablet Discontinued 325 mg PO DAILY@0800 60 November 28, 2013 12:00am March 19, 2016 1:19pm Comment on above: Take 81 mg by mouth once daily. atorvastatin 80 mg oral tablet (20 sources) HMG-CoA Reductase Inhibitor Start: 08-29-2024 atorvastatin 80 mg oral tablet Dose : 80 mg = 1 tab(s), Oral, Daily, # 100 tab(s), 0 Refill(s) Start Date: 08/29/24 Status: Ordered Quantity: 100.0 Unit: tab(s) Repeat number: 1 Start: 08-26-2021 End: 11-09-2023 take 1 tablet by mouth at bedtime Atorvastatin 80 mg tablet Active 80 mg PO AT BEDTIME November 09, 2023 1:18pm Start: 03-19-2016 End: 10-10-2021 take 1 tablet by mouth at bedtime Atorvastatin 40 mg tablet Discontinued 40 mg PO AT BEDTIME August 14, 2020 3:47pm October 10, 2021 7:47pm Comment on above: Take 1 tablet by deisi th once daily. Take 1 tablet by deisi th daily at bedtime. benazepril hydrochloride 40 mg oral tablet (20 sources) Angiotensin Converting Enzyme Inhibitor Start: 05-24-2023 benazepril 40 mg oral tablet Dose : 40 mg = 1 tab(s), Oral, Daily, # 100 tab(s), 0 Refill(s) Start Date: 08/29/24 Status: Ordered Quantity: 100.0 Unit: tab(s) Repeat number: 1 Start: 02-18-2023 End: 03-05-2024 take 2 tablets by mouth once daily Benazepril 20 mg tablet Discontinued 40 mg PO DAILY March 17, 2023 10:12am March 05, 2024 8:40am Start: 02-18-2023 End: 03-17-2023 take 40 mg by mouth once daily Benazepril Active 40 MG PO DAILY March 17, 2023 10:12am Start: 07-23-2020 End: 07-23-2020 take 1 tablet by mouth once daily Benazepril 40 mg tablet Discontinued 40 mg PO DAILY July 23, 2020 5:13pm July 23, 2020 5:15pm Start: 08-29-2018 End: 02-18-2023 take 1 tablet by mouth once daily Benazepril 20 mg tablet Discontinued 20 mg PO DAILY October 22, 2022 11:10am February 18, 2023 4:51pm Start: 11-14-2013 End: 08-29-2018 take 10 mg by mouth once daily Benazepril 20 MG tablet Discontinued 10 mg PO DAILY@799November 14, 2013 12:00am August 29, 2018 6:32pm Start: 11-14-2013 End: 08-29-2018 take 10 mg by mouth once daily Benazepril Discontinued 10 MG PO DAILY@799November 14, 2013 12:00am August 29, 2018 6:32pm Comment on above: Take 1 tablet by deisi once daily. ciprofloxacin 500 mg oral tablet (3 sources) Quinolone Antimicrobial Start: 2021 End: 2021 take 1 tablet by mouth twice daily ciprofloxacin HCl (CIPRO) 500 mg tablet Take 1 tablet by mouth twice daily for 3 days. Take it 1 day before and 3 days after catheter removal 6 tablet 0 11/24/2021 11/27/2021 Active Comment on above: Take 1 tablet by deisi twice daily for 3 days. Take it 1 day before and 3 days after catheter removal docusate sodium 100 mg oral capsule (5 sources) Start: 2021 End: 2021 take 1 capsule by mouth twice daily docusate sodium (COLACE) 100 mg capsule Take 1 capsule by mouth twice daily. 60 capsule 0 11/20/2021 12/20/2021 Active Comment on above: Take 1 capsule by mo [facility] twice daily. docusate sodium 50 mg / sennosides, [facility] 8.6 mg oral tablet (1 source) Start: 2024 End: 2024 take 1 tablet by mouth twice daily Senokot S 50 mg-8.6 mg oral tablet Dose = 2 tab(s), Oral, BID, Take until first bowel movement, then as needed, X 3 day(s), # 12 tab(s), 0 Refill(s), Pharmacy: [id number], 185.4, cm, 10/23/24 14:49:00 EDT, Height, kg, 10/23/24 14:49:00 EDT, Dosing Weight Start Date: 10/24/24 Stop Date: 10/27/24 Status: Ordered Quantity: 12.0 Unit: tab(s) Repeat number: 1 doxycycline hyclate 100 mg oral capsule (1 source) Tetracycline-class Drug Start: 2024 End: 2024 doxycycline hyclate 100 mg oral capsule Dose : 100 mg = 1 cap(s), Oral, q12h, X 14 day(s), # 28 cap(s), 0 Refill(s), 11/07/24 8:52:00 AM EDT, Pharmacy: [id number], 185.4, cm, 10/23/24 14:49:00 EDT, Height, 102.3, kg, 10/23/24 14:49:00 EDT, Dosing Weight Start Date: 10/24/24 Stop Date: 11/07/24 Status: Ordered Quantity: 28.0 Unit: cap(s) Repeat number: 1 0.4 ml enoxaparin sodium 100 mg/ml prefilled syringe (5 sources) Low Molecular Weight Heparin Start: 2021 End: 2021 inject 0.4 mL by subcutaneous injection once daily enoxaparin (LOVENOX) 40 mg/0.4 mL Inject 0.4 mL subcutaneously once daily for 21 days. 8.4 mL 0 11/20/2021 12/11/2021 Active Comment on above: Inject 0.4 mL subcut aneously once daily for 21 days. famotidine 20 mg oral tablet (1 source) Histamine-2 Receptor Antagonist Start: 2024 Pepcid 20 mg oral tablet Dose : 20 mg = 1 tab(s), Oral, qDay, # 30 tab(s), 0 Refill(s), Pharmacy: [id number], 185.4, cm, 10/23/24 14:49:00 EDT, Height, kg, 10/23/24 14:49:00 EDT, Dosing Weight Start Date: 10/24/24 Status: Ordered Quantity: 30.0 Unit: tab(s) Repeat number: 1 24 hr ferrous sulfate 142 mg extended release oral tablet (2 sources) Start: 2024 Slow Fe (as elemental iron) 45 mg oral tablet, extended release Dose : 45 mg = 1 tab(s), Oral, qDay, # 30 tab(s), 0 Refill(s) Start Date: 08/29/24 Status: Ordered Quantity: 30.0 Unit: tab(s) Repeat number: 1 Start: 03-27-2024 take 1 tablet by mouth once da cristina Ferrous Sulfate 137 mg (45 mg iron) tablet extended release Active 137 mg PO daily March 27, 2024 1:00am 0.5 ml leuprolide acetate 60 mg/ml prefilled syringe (20 sources) Gonadotropin Releasing Hormone Receptor Agonist Start: 09-08-2021 leuprolide 30 mg injection (ELIGARD) Start: 09-01-2021 End: 09-08-2021 inject 22.5 mg by intramuscular injection every three months leuprolide (LUPRON DEPOT) 22.5 mg injection Indications: Prostate cancer (HCC) Inject 22.5 mg intramuscularly every 3 months. 22.5 mg 3 09/01/2021 09/08/2021 Discontinued Comment on above: Inject 22.5 mg intra muscularly every 3 months. Magnesium glycinate (2 sources) Start: Magnesium Glycinate Active MG PO August 26, 2023 12:00am mecobalamin (1 source) Start: take 1 tablet by mouth once daily Mecobalamin (Vitamin B12) 500 mcg tablet,chewable Active 500 ug PO DAILY March 27, 2024 1:00am meloxicam 7.5 mg oral tablet (1 source) Nonsteroidal Anti-inflammatory Drug Start: End: meloxicam 7.5 mg oral tablet Dose : 7.5 mg = 1 tab(s), Oral, BID, Do not take any other nonsteroidal anti-inflammatories while on meloxicam/Mobic., # 60 tab(s), 0 Refill(s), Pharmacy: [id number], 185.4, cm, 10/23/24 14:49:00 EDT, Height, kg, 10/23/24 14:49:00 EDT, Dosing Weight Start Date: 10/24/24 Stop Date: 11/23/24 Status: Ordered Quantity: 60.0 Unit: tab(s) Repeat number: 1 oxyCODONE hydrochloride 5 mg oral tablet (1 source) Opioid Agonist Start: End: take 1-2 tablets by mouth every four hours as needed for pain oxyCODONE 5 mg oral tablet ( IMMEDIATE release ) See Instructions, PRN as needed for pain, 1-2 tab(s) Oral q4h, # 42 tab(s), 0 Refill(s), 10/31/24 8:53:00 AM EDT, Pharmacy: [facility], Status post total right knee replacement, 185.4, cm, 10/23/24 14:49:00 EDT, Height, 102.3, kg, 10/23/24 14:49:00 EDT, Dosing Weight Start Date: 10/24/24 Stop Date: 10/31/24 Status: Ordered Quantity: 42.0 Unit: tab(s) Repeat number: 1 Indications: Presence of right artificial knee joint; spironolactone 25 mg oral tablet (20 sources) Aldosterone Antagonist Start: take 1 tablet by mouth in the evening spironolactone 25 mg oral tablet TAKE 1 TABLET BY MOUTH IN THE EVENING Start Date: 08/29/24 Status: Ordered Repeat number: 1 Start: 03-17-2023 End: 06-08-2023 take 1 tablet by mouth once daily in the evening Spironolactone 25 mg tablet Discontinued 25 mg PO EVERY EVENING June 02, 2023 4:05pm June 08, 2023 5:45pm Start: 11-21-2021 take 1 tablet by deisi th once daily spironolactone (ALDACTONE) 12.5 mg tab Take 12.5 mg by mouth once daily. 0 11/21/2021 Active Start: 11-17-2021 End: 03-17-2023 Spironolactone 25 mg tablet Discontinued 12.5 mg PO EVERY EVENING August 05, 2022 4:08pm March 17, 2023 10:15am Start: 11-17-2021 End: 03-17-2023 take 12.5 mg by mouth once daily in the evening Spironolactone Discontinued 12.5 MG PO EVERY EVENING August 05, 2022 4:08pm March 17, 2023 10:15am Start: 11-14-2013 End: 01-22-2022 take 1 tablet by mouth once daily in the evening Spironolactone 25 mg tablet Discontinued 25 mg PO EVERY EVENING August 10, 2021 12:54pm November 17, 2021 12:27pm Comment on above: Take 1 tablet by deisi th once daily. Take 12.5 mg by mout h once daily. Vitamin B12 250 mcg oral tablet (1 source) Start: 08-29-2024 Vitamin B12 250 mcg oral tablet Dose : 250 mcg = 1 tab(s), Oral, qDay, # 30 tab(s), 0 Refill(s) Start Date: 08/29/24 Status: Ordered Quantity: 30.0 Unit: tab(s) Repeat number: 1 Completed/Discontinued Medications Medication Drug Class(es) Dates Sig (Normalized) Sig (Original) acetaminophen 325 mg / HYDROcodone bitartrate 5 mg oral tablet (5 sources) Opioid Agonist Start: 04-04-2023 End: 08-12-2023 Hydrocodone-Acetami nophen 5-325 mg tablet Discontinued 1 {tbl} PO Q8H as needed for Pain 12 April 04, 2023 August 12, 2023 11:15am Start: 04-04-2023 End: 08-12-2023 take 1 tablet by mouth every eight hours Hydrocodone-Acetaminophen Discontinued 1 TABLET PO Q8H 12 April 04, 2023 August 12, 2023 11:15am allopurinol 300 mg oral tablet (20 sources) Xanthine Oxidase Inhibitor Start: 11-05-2021 End: 05-20-2022 take 1 tablet by mouth once daily Allopurinol 300 mg tablet Discontinued 300 mg PO DAILY February 11, 2022 12:00am May 20, 2022 11:36am Comment on above: Take 1 tablet by deisi th once daily. To prevent gout attacks. apixaban 5 mg oral tablet (20 sources) Factor Xa Inhibitor Start: 08-20-2020 End: 10-14-2021 Apixaban (Eliquis) 5 mg tablet Discontinued 0 .ROUTE .COMPLEX 180 September 30, 2021 12:28pm October 14, 2021 12:50pm TAKE 1 TABLET TWICE A DAY Comment on above: Take by mouth twice daily. atenolol 25 mg oral tablet (20 sources) beta-Adrenergic Scottie Start: 08-20-2020 End: 10-10-2021 take 1 tablet by mouth once daily Atenolol 25 mg tablet Discontinued 25 mg PO DAILY September 30, 2021 12:28pm October 10, 2021 7:46pm Start: 06-16-2020 End: 08-20-2020 Atenolol 25 mg tablet Discon tinued 0 .ROUTE .COMPLEX June 16, 2020 10:54am August 20, 2020 4:16pm TAKE 1/2 TABLET (12.5MG) DAILY AT 4:00PM Start: 06-16-2020 End: 08-20-2020 Atenolol Discontinued 0 .ROU TE .COMPLEX June 16, 2020 10:54am August 20, 2020 4:16pm TAKE 1/2 TABLET (12.5MG) DAILY AT 4:00PM Start: 03-19-2016 End: 06-16-2020 Atenolol 25 mg tablet Discon tinued 12.5 mg PO EVERY EVENING August 28, 2019 2:27pm June 16, 2020 10:54am Start: 03-19-2016 End: 06-16-2020 take 12.5 mg by mouth once daily Atenolol Discontinued 12.5 MG PO DAILY@1600 90 2019 10:22am August 28, 2019 2:29pm Start: 11-14-2013 End: 11-28-2013 take 1 tablet by mouth once daily Atenolol 25 MG tablet Discontinued 25 mg PO DAILY November 14, 2013 12:00am November 28, 2013 5:20pm Comment on above: Take 1 tablet by deisi th once daily. clopidogrel 75 mg oral tablet (20 sources) P2Y12 Platelet Inhibitor Start: 6 End: 1 take 1 tablet by mouth once daily Clopidogrel 75 mg tablet Discontinued 75 mg PO DAILY January 04, 2020 4:47pm August 20, 2020 4:12pm colchicine 0.6 mg oral tablet (17 sources) Start: 2 End: 3 colchicine 0.6 mg tablet Take one pill once or twice daily as needed for gout 30 tablet 2 12/02/2021 05/20/2022 Discontinued Comment on above: Take one pill once o r twice daily as needed for gout External Catheter, Male misc (20 sources) Start: 2 End: 3 External Catheter, Male misc Indications: Urinary incontinence, unspecified type , Prostate cancer (HCC) Use 1 external catheter daily as directed for incontinence 90 Each 3 04/16/2022 09/14/2022 Discontinued Start: 04-16-[address], Male misc Indications: Urinary incontinence, unspecified type , Prostate cancer (HCC) Use 1 external catheter daily as directed for incontinence 90 Each 3 04/16/2022 Active Comment on above: Use [address] daily as directed for incontinence furosemide 20 mg oral tablet (12 sources) Loop Diuretic Start: 10-08-19 End: 10-21-19 take 1 tablet by mouth once daily furosemide (LASIX) 20 mg tablet Take 1 tablet by mouth once daily for 7 days. 7 tablet 0 10/07/2021 10/13/2021 Discontinued Comment on above: Take 1 tablet by deisi th once daily for 7 days. Incontinence Pants, Reusable misc (20 sources) Start: 05-03-20 Incontinence Pants, Reusable misc Indications: Urinary incontinence, unspecified type , Malignant neoplasm of prostate (HCC) Mens shorts with plastic housing that drains into collection bag. 1 Each 11 05/03/2022 Active Comment on above: Mens shorts with zara stic housing that drains into collection bag. 24 hr isosorbide mononitrate 30 mg extended release oral tablet (20 sources) Nitrate Vasodilator Start: 02-12-20 End: 10-11-19 take 1 tablet by mouth once daily, then take 1 tablet by mouth every twenty-four hours Isosorbide Mononitrate 30 mg tablet extended release 24 hr Discontinued 30 mg PO DAILY August 10, 2021 12:56pm October 10, 2021 7:47pm Comment on above: Take 1 tablet by deisi th once daily. magnesium citrate 58.2 mg/ml oral solution (17 sources) take 296 mL by mouth once magnesium citrate solution Take 296 mL by mouth one time only. 0 Active Comment on above: Take 296 mL by mouth one time only. Magnesium Glycinate 100 mg magnesium capsule (1 source) Start: 08-26-19 24 End: 09-15-19 24 Magnesium Glycinate 100 mg magnesium capsule Discontinued mg PO August 26, 2023 12:00am September 15, 2023 3:17pm mupirocin 0.02 mg/mg topical ointment (2 sources) RNA Synthetase Inhibitor Antibacterial Start: 09-30-19 mupirocin (BACTROBAN) 2 % ointment Apply a small amount in each nostril using a cotton swab twice the day before surgery and once the morning of surgery. 22 g 0 09/29/2021 Active Comment on above: Apply a small amount in each nostril using a cotton swab twice the day before surgery and once the morning of surgery. nitroglycerin 0.4 mg sublingual tablet (20 sources) Nitrate Vasodilator Start: 12-04-19 End: 10-07-19 nitroglycerin sublingual (NITROQUICK) 0.4 mg SL tablet Dissolve 1 tablet under the tongue as needed. FOR CHEST PAIN. IF NO RELIEF CALL 911 3 tablet 3 08/27/2021 10/06/2021 Discontinued Start: 07-11-2018 End: 10-10-2021 Nitroglycerin (Nitrostat) 0. 4 mg tablet, sublingual Discontinued 0.4 mg SL every 5 to 15 minutes as needed for Chest Pain July 11, 2018 1:00am October 10, 2021 7:47pm Start: 07-11-2018 End: 10-10-2021 Nitroglycerin (Nitrostat) 0. 4 mg tablet, sublingual Discontinued 0.4 MG SL every 5 to 15 minutes July 11, 2018 1:00am October 10, 2021 7:47pm Comment on above: Dissolve 1 tablet un ivone the tongue as needed. FOR CHEST PAIN. IF NO RELIEF CALL 911 oxybutynin chloride 5 mg oral tablet (19 sources) Cholinergic Muscarinic Antagonist Start: 11-21-19 End: 05-20-19 23 take 1 tablet by mouth twice daily oxybutynin (DITROPAN) 5 mg tablet Take 1 tablet by mouth twice daily for 7 days. 14 tablet 0 11/20/2021 05/20/2022 Discontinued Comment on above: Take 1 tablet by deisi twice daily for 7 days. tadalafil 5 mg oral tablet (20 sources) Phosphodiesterase 5 Inhibitor Start: 12-24-19 End: 02-12-20 22 take 1 tablet by mouth every twenty-four hours for edema Tadalafil (Cialis) 5 mg Tablet Discontinued 5 mg PO DAILY as needed for Edema December 23, 2021 12:00am February 11, 2022 10:08am administer approximately 30min before sexual activity; do not use more than 1 dose per 24hrs Start: 11-24-2021 End: 05-20-2022 Tadalafil (CIALIS) 5 mg tabl et 5 mg daily 30 tablet 5 12/09/2021 05/20/2022 Discontinued Comment on above: Take one pill a day. 5 mg daily Problems Active Problems Problem Classification Problem Date Documented Da te Episodic/Chronic Abdominal hernia (1 source) Unspecified abdominal hernia without obstruction or gangrene; Translations: [Hernia of unspecified site without mention of obstruction or gangrene] Episodic Acute posthemorrhagic anemia (12 sources) Acute posthemorrhagic anemia; Translations: [Acute posthemorrhagic anemia] 07-11-2018 Episodic Aortic; peripheral; and visceral artery aneurysms (20 sources) Aortic root dilatation; Translations: [Thoracic aortic ectasia] Onset: 4 07-25-2018 Chronic Calculus of urinary tract (1 source) Kidney stone; Translations: [Calculus of kidney] Episodic Cancer of prostate (20 sources) Malignant tumor of prostate; Translations: [Malignant neoplasm of prostate] Onset: 2 Chronic Cancer of prostate (1 source) Personal history of malignant neoplasm of prostate; Translations: [Personal history of malignant neoplasm of prostate] Onset: 5 Episodic Cardiac dysrhythmias (20 sources) Paroxysmal atrial fibrillation; Translations: [Paroxysmal atrial fibrillation] Onset: 2 Chronic Comment on above: Detected 08/20/2020; d ccv 09/2020; Bilateral Maze procedure (RF w/ cryo), and LAAC w/ 35mm clip 07/31/2021 Chronic obstructive pulmonary disease and bronchiectasis (16 sources) Chronic bronchitis; Translations: [Unspecified chronic bronchitis] Onset: 3 Resolved: 4 Chronic Conditions associated with dizziness or vertigo (20 sources) Lightheadedness; Translations: [Dizziness and giddiness] 10-14-2021 Episodic Conduction disorders (12 sources) Incomplete right bundle branch block; Translations: [Unspecified right bundle-branch block] 07-25-2018 Chronic Coronary atherosclerosis and other heart disease (20 sources) Atherosclerotic heart disease of [place] coronary artery without angina pectoris; Translations: [Coronary atherosclerosis] Onset: 8 Resolved: 2 02-13-2009 Chronic Coronary atherosclerosis and other heart disease (20 sources) Presence of coronary angioplasty implant and graft; Translations: [Percutaneous transluminal coronary angioplasty status] Onset: 5 Episodic Diabetes mellitus without complication (20 sources) Type 2 diabetes mellitus without complication; Translations: [Type 2 diabetes mellitus without complications] Onset: 8 11-10-2017 Chronic Disorders of lipid metabolism (20 sources) Hyperlipidemia; Translations: [Hyperlipidemia, unspecified] Onset: 5 Chronic Essential hypertension (20 sources) Essential hypertension; Translations: [Essential (primary) hypertension] Onset: 5 Chronic Genitourinary symptoms and ill-defined conditions (20 sources) Male urinary stress incontinence; Translations: [Stress incontinence (female) (male)] Onset: 3 Chronic Gout and other crystal arthropathies (20 sources) Gout; Translations: [Gout, unspecified] Onset: 7 02-28-2007 Chronic Hyperplasia of prostate (20 sources) Benign prostatic hypertrophy with outflow obstruction; Translations: [Benign prostatic hyperplasia with lower urinary tract symptoms] Onset: 1 06-08-2010 Chronic Osteoarthritis (20 sources) Degenerative joint disease of shoulder region; Translations: [Primary osteoarthritis, unspecified shoulder] Onset: 5 02-02-2005 Chronic Other acquired deformities (3 sources) Lumbar spondylolisthesis; Translations: [Spondylolisthesis, lumbar region] 08-12-2023 Episodic Other acquired deformities (4 sources) Spondylolisthesis, lumbar region; Translations: [Acquired spondylolisthesis] 08-12-2023 Episodic Other aftercare (1 source) Surgical follow-up; Translations: [Encounter for follow-up examination after completed treatment for conditions other than malignant neoplasm] Episodic Other aftercare (1 source) Radiotherapy follow-up; Translations: [Encounter for follow-up examination after completed treatment for conditions other than malignant neoplasm] Episodic Other aftercare (1 source) 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; Translations: [[facility] (current) use of aspirin] Onset: 5 Episodic Other aftercare (1 source) Other long distance operator (current) drug therapy; Translations: [Other long-term (current) drug therapy] Onset: 5 Episodic Other connective tissue disease (1 source) Artificial knee joint present; Translations: [Presence of right artificial knee joint] Onset: 5 Chronic Other connective tissue disease (1 source) Presence of right artificial knee joint; Translations: [Presence of right artificial knee joint] Onset: 5 Chronic Other connective tissue disease (1 source) Presence of left artificial knee joint; Translations: [Presence of left artificial knee joint] Onset: 5 Chronic Other connective tissue disease (1 source) Presence of artificial hip joint, bilateral; Translations: [Presence of artificial hip joint, bilateral] Onset: 5 Chronic Other gastrointestinal disorders (1 source) Other constipation; Translations: [Other constipation] Onset: 5 Episodic Other lower respiratory disease (12 sources) Dyspnea on exertion; Translations: [Dyspnea, unspecified] 08-06-2021 Episodic Other lower respiratory disease (12 sources) Dyspnea; Translations: [Dyspnea, unspecified] 07-11-2018 Episodic Other lower respiratory disease (1 source) Other forms of dyspnea; Translations: [Other forms of dyspnea] Onset: 5 Episodic Other male genital disorders (2 sources) Erectile dysfunction following radical prostatectomy; Translations: [Erectile dysfunction following radical prostatectomy] Chronic Other nervous system disorders (3 sources) Cervical myelopathy; Translations: [Disease of spinal cord, unspecified] 08-26-2023 Chronic Other nervous system disorders (2 sources) Disease of spinal cord, unspecified; Translations: [Cervical spondylosis with myelopathy] 08-26-2023 Chronic Other screening for suspected conditions (not mental disorders or infectious disease) (20 sources) Radiology result abnormal; Translations: [Abnormal findings on diagnostic imaging of other parts of musculoskeletal system] Onset: 1 Episodic Other upper respiratory disease (20 sources) Allergic rhinitis; Translations: [Allergic rhinitis, unspecified] Onset: 3 10-02-2012 Chronic Peripheral and visceral atherosclerosis (1 source) Arteriosclerotic vascular disease; Translations: [Unspecified atherosclerosis] Chronic Residual codes; unclassified (1 source) History of maze procedure for atrial fibrillation; Translations: [Other specified postprocedural states] Episodic Residual codes; unclassified (1 source) Acquired absence of other genital organ(s); Translations: [Acquired absence of other genital organ(s)] Onset: 5 Episodic Screening and history of mental health and substance abuse codes (1 source) Personal history of nicotine dependence; Translations: [Personal history of nicotine dependence] Onset: 5 Episodic Secondary malignancies (1 source) Secondary malignant neoplasm of brain; Translations: [Secondary malignant neoplasm of brain] Chronic Spondylosis; intervertebral disc disorders; other back problems (20 sources) Spinal stenosis of lumbar region; Translations: [Spinal stenosis, lumbar region without neurogenic claudication] Onset: 2 09-28-2021 Episodic Sprains and strains (5 sources) Lower back injury; Translations: [Strain of muscle, fascia and tendon of lower back, initial encounter] 04-04-2023 Episodic Substance-related disorders (20 sources) Nicotine dependence; Translations: [Nicotine dependence, unspecified, uncomplicated] Onset: 2 10-05-2021 Chronic Syncope (12 sources) Syncope; Translations: [Syncope and collapse] 07-11-2018 Episodic Unclassified (1 source) Unknown / UNK(Unknown) Onset: 8 Unclassified (1 source) APPOINTMENT CANCELLED Past or Other Problems Problem Classification Problem Date Documented Date Episodic/Chronic Acute and unspecified renal failure (20 sources) Acute injury of kidney; Translations: [Acute kidney failure, unspecified] Onset: 10-01-2021 10-05-2021 Episodic Administrative/social admission (20 sources) Discharge status; Translations: [Encounter for administrative examinations, unspecified] Onset: 09-29-2021 09-29-2021 Episodic Cardiac dysrhythmias (8 sources) Sinus bradycardia; Translations: [Bradycardia, unspecified] Onset: 09-30-2021 Resolved: 10-03-2021 Episodic Complications of surgical procedures or medical care (20 sources) Drug therapy finding; Translations: [Unspecified adverse effect of drug or medicament, initial encounter] Onset: 01-09-2010 01-09-2010 Episodic Fluid and electrolyte disorders (14 sources) Hypovolemia; Translations: [Hypovolemia] Onset: 09-30-2021 Resolved: 10-04-2021 10-04-2021 Episodic Nonmalignant breast conditions (20 sources) Gynecomastia; Translations: [Hypertrophy of breast] Onset: 12-23-2011 12-23-2011 Episodic Other connective tissue disease (20 sources) Muscle weakness; Translations: [Muscle weakness (generalized)] Onset: 06-04-2022 Episodic Other nervous system disorders (7 sources) Acute postoperative pain; Translations: [Other acute postprocedural pain] Onset: 09-30-2021 Resolved: 10-04-2021 10-04-2021 Episodic Pleurisy; pneumothorax; pulmonary collapse (7 sources) Atelectasis; Translations: [Atelectasis] Onset: 09-30-2021 Resolved: 10-04-2021 10-04-2021 Episodic Results Test Name Value Interpretation Reference Range Facility .Auto Diffon 10-24-2024 Basophil, Absolute 0.0 10 3/mcL Normal 0.0-0.3 [facility] Comment on above: Performed By: #### A LUIS F, GFR, CBC, BMP, ADIFF #### [address] [address] Basophils/100 WBC (Bld) 0.0 % Normal 0.0-2.5 [facility] Comment on above: Performed By: #### A LUIS F, GFR, CBC, BMP, ADIFF #### [address] [address] Eosinophil, Absolute 0.0 10 3/mcL Normal 0.0-0.7 [facility] Comment on above: Performed By: #### A LUIS F, GFR, CBC, BMP, ADIFF #### [address] [address] Eosinophils/100 WBC (Bld) 0.0 % Normal 0.0-6.0 [facility] Comment on above: Performed By: #### A LUIS F, GFR, CBC, BMP, ADIFF #### [address] [address] Lymphocyte, Absolute 0.3 10 3/mcL Low 0.9-4.3 [facility] Comment on above: Performed By: #### A LUIS F, GFR, CBC, BMP, ADIFF #### [address] [address] Lymphocytes/100 WBC (Bld) 2.5 % Low 20.0-40.0 [facility] Comment on above: Performed By: #### A LUIS F, GFR, CBC, BMP, ADIFF #### [address] [address] Monocyte, Absolute 1.2 10 3/mcL Normal 0.1-1.4 [facility] Comment on above: Performed By: #### A LUIS F, GFR, CBC, BMP, ADIFF #### [address] [address] Monocytes/100 WBC (Bld) 8.7 % Normal 2.0-13.0 [facility] Comment on above: Performed By: #### A LUIS F, GFR, CBC, BMP, ADIFF #### [address] [address] Neutrophils/100 WBC (Bld) 88.8 % High 50.0-75.0 [facility] Comment on above: Performed By: #### A LUIS F, GFR, CBC, BMP, ADIFF #### [address] [address] .GFRon 10-24-2024 Estimated Glomerular Filtration Rate 77 ml/min/1.73sqm Normal [facility] Comment on above: Result Comment: Stages of Chronic Kidney Disease (CKD) Stage Description eGFR(ml/min/1.73 sq.m.) CKD 1 Normal kidney function or >=90 normal kindney function with possible kidney damage (ex. Proteinuria) CKD 2 Kidney damage with mild loss 60-89 of kidney function CKD 3a Mild to moderate loss of kidney 45-59 function CKD 3b Moderate to severe loss of 30-44 of kindey function CKD 4 Severe loss of kidney function 15-29 CKD 5 Kidney failure <15 Note: (go live 2024) the eGFR calculation was updated to the 2020 CKD-EPI creatinine equation without a race factor to calculate the eGFR results. Performed By: #### A BSGEL, ABOGEL #### [address] [address] .NEUABSon 10-24-2024 Neutrophil, Absolute 12.1 10 3/mcL High 2.3-8.1 [facility] Comment on above: Performed By: #### A LUIS F, GFR, CBC, BMP, ADIFF #### [place] [id number] BMPon 10-24-2024 BUN/Creatinine Ratio 26 ratio Normal 7-27 [facility] Comment on above: Performed By: #### A LUIS F, GFR, CBC, BMP, ADIFF #### [place] [address] Calcium [Mass/Vol] 8.4 mg/dL Normal 8.4-10.2 [facility] Comment on above: Performed By: #### A LUIS F, GFR, CBC, BMP, ADIFF #### [place] [address] Chloride [Moles/Vol] 102 mmol/L Normal 98-107 [facility] Comment on above: Performed By: #### A LUIS F, GFR, CBC, BMP, ADIFF #### [place] [address] CO2 [Moles/Vol] 24 mmol/L Normal 23-31 [facility] Comment on above: Performed By: #### A LUIS F, GFR, CBC, BMP, ADIFF #### [place] [address] Creatinine [Mass/Vol] 0.99 mg/dL Normal 0.67-1.17 [facility] Comment on above: Performed By: #### A LUIS F, GFR, CBC, BMP, ADIFF #### [place] [address] Electrolyte Balance 9.0 mEq/L Normal 4.0-15.0 [facility] Comment on above: Performed By: #### A LUIS F, GFR, CBC, BMP, ADIFF #### [address] [address] Glucose [Mass/Vol] 211 mg/dL High 83-110 [facility] Comment on above: Performed By: #### A LUIS F, GFR, CBC, BMP, ADIFF #### [address] [address] Potassium [Moles/Vol] 4.9 mmol/L Normal 3.5-5.1 [facility] Comment on above: Performed By: #### A LUIS F, GFR, CBC, BMP, ADIFF #### [address] [address] Sodium [Moles/Vol] 135 mmol/L Low 136-145 [facility] Comment on above: Performed By: #### A LUIS F, GFR, CBC, BMP, ADIFF #### [address] [address] Urea nitrogen [Mass/Vol] 26 mg/dL High 7-18 [facility] Comment on above: Performed By: #### A LUIS F, GFR, CBC, BMP, ADIFF #### [address] [address] CBCon 10-24-2024 Erythrocyte distribution width (RBC) [Ratio] 14.2 % Normal 11.5-15.5 [facility] Comment on above: Performed By: #### A LUIS F, GFR, CBC, BMP, ADIFF #### [address] [address] Hematocrit (Bld) [Volume fraction] 31.4 % Low 40.0-52.0 [facility] Comment on above: Performed By: #### A LUIS F, GFR, CBC, BMP, ADIFF #### [address] [address] Hgb 10.6 G/dL Low 13.0-17.5 [facility] Comment on above: Performed By: #### A LUIS F, GFR, CBC, BMP, ADIFF #### [address] [address] MCH (RBC) [Entitic mass] 29.5 pg Normal 27.0-33.0 [facility] Comment on above: Performed By: #### A LUIS F, GFR, CBC, BMP, ADIFF #### [address] [address] MCHC 33.9 G/dL Normal 32.0-36.0 [facility] Comment on above: Performed By: #### A LUIS F, GFR, CBC, BMP, ADIFF #### [address] [address] MCV (RBC) [Entitic vol] 87.1 fL Normal 81.0-100.0 [facility] Comment on above: Performed By: #### A LUIS F, GFR, CBC, BMP, ADIFF #### [place] [address] Platelet 191 10 3/mcL Normal 150-450 [facility] Comment on above: Performed By: #### A LUIS F, GFR, CBC, BMP, ADIFF #### [place] [address] Platelet mean volume (Bld) [Entitic vol] 8.3 fL Normal 6.4-10.5 [facility] Comment on above: Performed By: #### A LUIS F, GFR, CBC, BMP, ADIFF #### [address] [address] RBC 3.60 10 6/mcL Low 4.50-6.00 [facility] Comment on above: Performed By: #### A LUIS F, GFR, CBC, BMP, ADIFF #### [address] [address] WBC 13.6 10 3/mcL High 4.5-10.8 [facility] Comment on above: Performed By: #### A LUIS F, GFR, CBC, BMP, ADIFF #### [place] [address] LABORATORYOrdered By: SYSTEM SYSTEM on 10-24-2024 Basophils (Bld) [#/Vol] 0.0 103/mcL Normal 0.0 - 0.3 10^3/mcL AO Workflow SS Basophils/100 WBC (Bld) 0.0 % Normal 0.0 - 2.5 % AO Workflow SS Calcium [Mass/Vol] 8.4 mg/dL Normal 8.4 - 10. 2 mg/dL AO ADM SS Chloride [Moles/Vol] 102 mmol/L Normal 98 - 10 7 mmol/L AO ADM SS CO2 [Moles/Vol] 24 mmol/L Normal 23 - 31 mmol/L AO ADM SS Creatinine [Mass/Vol] 0.99 mg/dL Normal 0.67 - 1.17 mg/dL AO ADM SS Electrolyte Balance 9.0 mEq/L Normal 4.0 - 15 .0 mEq/L AO ADM SS Eosinophil, Absolute 0.0 103/mcL Normal 0.0 - 0 .7 10^3/mcL AO Workflow SS Eosinophils/100 WBC (Bld) 0.0 % Normal 0.0 - 6.0 % AO Workflow SS Erythrocyte distribution width (RBC) [Ratio] 14.2 % Normal 11.5 - 15.5 % AO Workflow SS Estimated Glomerular Filtration Rate 77 ml/min/1.73sqm Invalid Interpretation Code AO Chemistry S Comment on above: Interpretive Data: Stages of Chronic Kidney Disease (CKD) Stage Description eGFR(ml/min/1.73 sq.m.) CKD 1 Normal kidney function or >=90 normal kindney function with possible kidney damage (ex. Proteinuria) CKD 2 Kidney damage with mild loss 60-89 of kidney function CKD 3a Mild to moderate loss of kidney 45-59 function CKD 3b Moderate to severe loss of 30-44 of kindey function CKD 4 Severe loss of kidney function 15-29 CKD 5 Kidney failure <15 Note: (go live 2024) the eGFR calculation was updated to the 2020 CKD-EPI creatinine equation without a race factor to calculate the eGFR results. Glucose [Mass/Vol] 211 mg/dL High 83 - 110 mg/dL AO ADM SS Hematocrit (Bld) [Volume fraction] 31.4 % Low 40.0 - 52.0 % AO Workflow SS Hemoglobin (Bld) [Mass/Vol] 10.6 G/dL Low 13.0 - 17.5 G/dL AO Workflow SS Lymphocytes (Bld) [#/Vol] 0.3 103/mcL Low 0.9 - 4.3 10^3/mcL AO Workflow SS Lymphocytes/100 WBC (Bld) 2.5 % Low 20.0 - 40.0 % AO Workflow SS MCH (RBC) [Entitic mass] 29.5 pg Normal 27.0 - 33.0 pg AO Workflow SS MCHC 33.9 G/dL Normal 32.0 - 36.0 G/dL AO Workflow SS MCV (RBC) [Entitic vol] 87.1 fL Normal 81.0 - 100.0 fL AO Workflow SS Monocytes (Bld) [#/Vol] 1.2 103/mcL Normal 0.1 - 1.4 10^3/mcL AO Workflow SS Monocytes/100 WBC (Bld) 8.7 % Normal 2.0 - 13.0 % AO Workflow SS Neutrophils (Bld) [#/Vol] 12.1 103/mcL High 2.3 - 8.1 10^3/mcL AO Workflow SS Neutrophils/100 WBC (Bld) 88.8 % High 50.0 - 75.0 % AO Workflow SS Platelet mean volume (Bld) [Entitic vol] 8.3 fL Normal 6.4 - 10.5 fL AO Workflow SS Platelets (Bld) [#/Vol] 191 103/mcL Normal 150 - 450 10^3/mcL AO Workflow SS Potassium [Moles/Vol] 4.9 mmol/L Normal 3.5 - 5.1 mmol/L AO ADM SS RBC (Bld) [#/Vol] 3.60 106/mcL Low 4.50 - 6.00 10^6/mcL AO Workflow SS Sodium [Moles/Vol] 135 mmol/L Low 136 - 145 mmol/L AO ADM SS Urea nitrogen [Mass/Vol] 26 mg/dL High 7 - 18 mg/dL AO ADM SS Urea nitrogen/Creatinine [Mass ratio] 26 ratio Normal 7 - 27 ratio AO ADM SS WBC (Bld) [#/Vol] 13.6 103/mcL High 4.5 - 10.8 10^3/mcL AO Workflow SS ABO/Rh (Gel)on 10-23-2024 ABO/Rh Interp Positive Invalid Interpretation Code [facility] Comment on above: Performed By: #### A DANNY ABOGEL #### [facility] [address] [place], [place] [address] ABS (Gel)on 10-23-2024 ABSC Interp (Gel) Negative Normal [facility] Comment on above: Performed By: #### A BSGEL, ABOGEL #### [facility] [address] [place], [place] [address] LABORATORYOrdered By: Anam Rendon on 10-23-2024 ABO and Rh group Nom (Bld) Blood group O Rh(D) positive Invalid Interpretation Code AO BB Auto SS Blood group antibody screen Ql Negative ABSC (10/23/24 10:51 AM) Normal AO BB Auto SS LABORATORYOrdered By: Dee carmona on 10-23-2024 Glucose [Mass/Vol] 134 mg/dL High 82 - 115 mg/dL [facility] Work Phone: US ANESTHESIA BLOCKon 2024 US ANESTHESIA BLOCK ORIGINAL Images acquired, not reported on this accession number. Normal [facility] XR KNEE 1 OR 2 VIEWS RIGHTon 10-23-2024 XR KNEE 1 OR 2 VIEWS RIGHT ORIGINAL EXAMINATION: TWO XRAY VIEWS OF THE RIGHT KNEE 10/23/2024 1:25 pm COMPARISON: None. HISTORY: ORDERING SYSTEM PROVIDED HISTORY: Reason for Exam: Status Post Arthroplasty FINDINGS: Skin candida. Postop total right knee arthroplasty with patellar resurfacing. There is immediate expected postop changes present including swelling subcutaneous and intra-articular gas and joint effusion. Medial subcutaneous vascular clips. No evidence of fracture. IMPRESSION: Immediate expected postop changes status post total right knee arthroplasty. Interpreted by: Edie Hernandez Preliminary Report By: Edie Hernandez Electronically signed By Edie Hernandez Dictated Date: 10/23/2024 1:32:00 PM Prelim Date: 10/23/2024 1:32:59 PM Sign Date: 10/23/2024 1:32:59 PM Ordering Provider: GRISELDA LYNCH Normal [facility] CT KNEE W/O CONTRAST RIGHTon 08-29-2024 CT KNEE W/O CONTRAST RIGHT ORIGINAL EXAMINATION: CT OF THE RIGHT KNEE WITHOUT CONTRAST 08/29/2024 11:29 am TECHNIQUE: CT of the right knee was performed without the administration of intravenous contrast. Multiplanar reformatted images are provided for review. Automated exposure control, iterative reconstruction, and/or weight based adjustment of the mA/kV was utilized to reduce the radiation dose to as low as reasonably achievable. MA KO protocol was performed with axial images through the right hip and right ankle. COMPARISON: None. HISTORY ORDERING SYSTEM PROVIDED HISTORY: Reason for Exam: M17.11 UNILATERAL PRIMARY OSTEOARTHRITIS, RT KNEE FINDINGS: There is no acute fracture or dislocation. There is no suspicious lytic or blastic osseous lesion. There is no aggressive periosteal reaction. Severe tricompartmental osteoarthritis of the right knee most pronounced in the medial compartment with asymmetric joint space narrowing, [id number], subchondral sclerosis, subchondral cysts and marginal osteophyte formation. Spurring of the tibial spines and intercondylar notch. Total right hip arthroplasty produces metallic streak artifact which degrades evaluation. Moderate pubic symphysis degenerative change. Large knee joint effusion with thickened synovium. There is a multilobulated fluid collection along the lateral subcutaneous tissues and distal iliotibial tract and region of the lateral collateral ligament complex. Measuring approximately 5 by 3 by 6 cm. Ossified 2.7 x 0.7 cm body in the proximal popliteus tendon sheath. Diffuse muscle atrophy that is most severe involving the gastrocnemius where there is significant fatty infiltration.. Quadriceps enthesopathy. Pronounced thickening of the distal Achilles tendon with dystrophic calcifications, correlate for Achilles tendinosis. Small ossicles at the tip of the medial malleolus which may reflect sequela of remote injury. There is no evidence of solid mass. Vascular calcifications. Limited evaluation of the neurovascular structures lack of contrast. IMPRESSION: 1. Severe tricompartmental osteoarthritis of the right knee most pronounced in the medial compartment. 2. Large knee joint effusion with thickened synovium. 3. There is a multilobulated fluid collection along the lateral subcutaneous tissues and distal iliotibial tract/lateral collateral ligament complex measuring approximately 5 x 3 x 6 cm. This may reflect a ganglion cyst, bursitis related to IT band syndrome and or knee joint fluid dissection through the joint capsule related to prior injury, less likely but not excluded neoplasm as there is limited evaluation with lack of contrast. As further clinically warranted correlation should be made with MRI. 4. Ossified 2.7 x 0.7 cm body in the proximal popliteus tendon sheath. 5. Pronounced thickening of the distal Achilles tendon with dystrophic calcifications, correlate for Achilles tendinosis. 6. Additional incidental findings as above. Interpreted by: Edie Hernandez Preliminary Report By: Edie Hernandez Electronically signed By Edie Hernandez Dictated Date: 08/29/2024 11:53:25 AM Prelim Date: 08/29/2024 12:04:08 PM Sign Date: 08/29/2024 12:04:08 PM Ordering Provider: GRISELDA LYNCH Normal [facility] MRSAPCRon 08-29-2024 MRSA (PCR) Not detected Normal Not Detected [facility] Comment on above: Result Comment: [place] [id number] Performed By: #### M RSAPCR #### [facility] [address] [place] [id number] MRSA PCR Int Normal [facility] Comment on above: Result Comment: MRSA DNA not detected by Real-Time Polymerase Chain Reaction (PCR). A negative result may be due to intermittent colonization. Colonization may vary depending on patient treatment, patient status, or exposure to high-risk environments. As with all PCR based in vitro diagnostic tests, extremely low levels of target below the limit of detection of the assay may be detected, but results may not be reproducible. See Below Performed By: #### M RSAPCR #### [facility] [address] [place] [id number] Absolute neutrophil countOrd ered By: Yecenia Agrawal on 08-28-2024 Neutrophils (Bld) [#/Vol] 4.3 10*3/uL 2.0-7.7 [facility] Anion gap in Serum or Plasma Ordered By: Yecenia Agrawal on 08-28-2024 Anion gap [Moles/Vol] 10 mmol/L 09-27 [facility] BUN/creatinine ratioOrdered By: Yecenia Agrawal on 08-28-2024 Urea nitrogen/Creatinine [Mass ratio] 18.9 mg/mg 10- [facility] Basophil percentageOrdered B y: Yecenia Agrawal on 08-28-2024 Basophils/100 WBC (Bld) 0.5 % 0-1 [facility] Bilirubin, totalOrdered By: Yecenia Agrawal on 08-28-2024 Bilirubin [Mass/Vol] 0.66 mg/dL 0.00-1.30 [facility] CBC W/Diff, Automatedon 08-14 Absolute Lymph 0.59 X10 3/uL Low 0.83-4.51 [facility] Comment on above: Order Comment: Order Date: 08/28/24Order Info: [id number] - CBCD Performed By: #### L [id number], L500.4100, L100.0100, L500.4050 ####[facility] [id number] [place], [address] Absolute Neut 4.3 X10 3/uL Normal 2.0-7.7 [facility] Comment on above: Order Comment: Order Date: 08/28/24Order Info: [id number] - CBCD Performed By: #### L [id number], L500.4100, L100.0100, L500.4050 ####[facility] [id number] [place], [address] Basophils/100 WBC (Bld) 0.5 % Normal 0-1 [facility] Comment on above: Order Comment: Order Date: 08/28/24Order Info: [id number]- - CBCD Performed By: #### L [id number], L500.4100, L100.0100, L500.4050 ####[facility] [id number] [place], [address] Eosinophils/100 WBC (Bld) 5.1 % High 0-5 [facility] Comment on above: Order Comment: Order Date: 08/28/24Order Info: [id number]- - CBCD Performed By: #### L [id number], [id number], L100.0100, L500.4050 ####[facility] [id number] [place], [address] Erythrocyte distribution width (RBC) [Ratio] 14.0 % Normal 11.6-14.6 [facility] Comment on above: Order Comment: Order Date: 08/28/24Order Info: [id number] - CBCD Performed By: #### L 501.9985, L500.4100, L100.0100, L500.4050 ####[facility] [address] [place], [address] Hematocrit (Bld) [Volume fraction] 38.1 % Low 40-54 [facility] Comment on above: Order Comment: Order Date: 08/28/24Order Info: 018-1 - CBCD Performed By: #### L 501.9985, L500.4100, L100.0100, L500.4050 ####[facility] [address] [place], [address] Hemoglobin (Bld) [Mass/Vol] 12.4 g/dL Low 13.0-16.5 [facility] Comment on above: Order Comment: Order Date: 08/28/24Order Info: 018- - CBCD Performed By: #### L 501.9985, L500.4100, L100.0100, L500.4050 ####[facility] [address] [place], [address] IG% 0.200 Normal 0.0-0.9 [facility] Comment on above: Order Comment: Order Date: 08/28/24Order Info: 018- - CBCD Result Comment: IG% - Immature Granulocytes (promyelocytes, myelocytes and metamyelocytes) > 1% indicates that a LEFT SHIFT is Present. Performed By: #### L 501.9985, L500.4100, L100.0100, L500.4050 ####[facility] [address] [place], [address] Lymphocytes/100 WBC (Bld) 10.1 % Low 19-41 [facility] Comment on above: Order Comment: Order Date: 08/28/24Order Info: 018- - CBCD Performed By: #### L 501.9985, L500.4100, L100.0100, L500.4050 ####[facility] [address] [place], [address] MCH (RBC) [Entitic mass] 29.2 pg Normal 27.0-32.0 [facility] Comment on above: Order Comment: Order Date: 08/28/24Order Info: 018- - CBCD Performed By: #### L 501.9985, L500.4100, L100.0100, L500.4050 ####[facility] [address] [place], [address] MCHC (RBC) [Mass/Vol] 32.5 g/dL Normal 32-36 [facility] Comment on above: Order Comment: Order Date: 08/28/24Order Info: [id number] - CBCD Performed By: #### L 501.9985, L500.4100, L100.0100, L500.4050 ####[facility] [address] [place], [address] MCV (RBC) [Entitic vol] 89.6 fL Normal 80-94 [facility] Comment on above: Order Comment: Order Date: 08/28/24Order Info: 018-1 - CBCD Performed By: #### L 501.9985, L500.4100, L100.0100, L500.4050 ####[facility] [address] [place], [address] Monocytes/100 WBC (Bld) 10.4 % High 0-10 [facility] Comment on above: Order Comment: Order Date: 08/28/24Order Info: 018-1 - CBCD Performed By: #### L 501.9985, L500.4100, L100.0100, L500.4050 ####[facility] [address] [place], [address] Neutrophils/100 WBC (Bld) 73.7 % High 47-70 [facility] Comment on above: Order Comment: Order Date: 08/28/24Order Info: [id number] - CBCD Performed By: #### L 501.9985, L500.4100, L100.0100, L500.4050 ####[facility] [address] [place], [address] Nucleated RBC (Bld) [#/Vol] 0 10*3/uL Normal 0-5 [facility] Comment on above: Order Comment: Order Date: 08/28/24Order Info: [id number] - CBCD Performed By: #### L 501.9985, L500.4100, L100.0100, L500.4050 ####[facility] [address] [place], [address] Platelet mean volume (Bld) [Entitic vol] 10.3 fL Normal 6.2-12.0 [facility] Comment on above: Order Comment: Order Date: 08/28/24Order Info: [id number] - CBCD Performed By: #### L 501.9985, L500.4100, L100.0100, L500.4050 ####[facility] [address] [place], [address] Platelets (Bld) [#/Vol] 229 10*3/uL Normal 150-450 [facility] Comment on above: Order Comment: Order Date: 08/28/24Order Info: 0184- - CBCD Performed By: #### L 501.9985, L500.4100, L100.0100, L500.4050 ####[facility] [address] [place], [address] RBC (Bld) [#/Vol] 4.25 10*6/uL Low 4.6-6.2 [facility] Comment on above: Order Comment: Order Date: 08/28/24Order Info: [id number] - CBCD Performed By: #### L 501.9985, L500.4100, L100.0100, L500.4050 ####[facility] [address] [place], [address] RDW SD 45.1 fl High 35.1-43.9 [facility] Comment on above: Order Comment: Order Date: 08/28/24Order Info: [id number] - CBCD Performed By: #### L 501.9985, L500.4100, L100.0100, L500.4050 ####[facility] [address] [place], [address] WBC (Bld) [#/Vol] 5.9 10*3/uL Normal 4.4-11.0 [facility] Comment on above: Order Comment: Order Date: 08/28/24Order Info: [id number] - CBCD Performed By: #### L 501.9985, L500.4100, L100.0100, L500.4050 ####[facility] [address] [place], [address] Calculated very low density lipoprotein (VLDL) cholesterol measurementOrdered By: Yecenia Agrawal on 08-28-2024 VLDL Cholesterol 17 mg/dL 5-40 [facility] Carbon dioxide, total [Moles /volume] in Central venous bloodOrdered By: Yecenia Agrawal on 08-28-2024 CO2 [Moles/Vol] 21.0 mmol/L 21.0-32.0 [facility] Chloride assayOrdered By: Jerome Agrawal on 08-28-2024 Chloride [Moles/Vol] 107 mmol/L 98-108 [facility] Comprehensive Metabolic Prof ilon 08-28-2024 Albumin [Mass/Vol] 4.0 g/dL Normal 3.4-4.8 [facility] Comment on above: Order Comment: Order Date: 08/28/24Order Info: [id number] - CMPOrder Info: [id number] - LIPID Performed By: #### L 501.9985, L500.4100, L100.0100, L500.4050 ####[facility] [address] [place], [address] Albumin/Globulin [Mass ratio] 1.4 {ratio} Normal 0.9-2.4 [facility] Comment on above: Order Comment: Order Date: 08/28/24Order Info: [id number] - CMPOrder Info: [id number] - LIPID Performed By: #### L 501.9985, L500.4100, L100.0100, L500.4050 ####[facility] [address] [place], [address] ALK PHOS 127 U/L Normal 40-129 [facility] Comment on above: Order Comment: Order Date: 08/28/24Order Info: [id number] - CMPOrder Info: [id number] - LIPID Performed By: #### L 501.9985, L500.4100, L100.0100, L500.4050 ####[facility] [address] [place], [address] ALT [Catalytic activity/Vol] 19 U/L Normal <=46 [facility] Comment on above: Order Comment: Order Date: 08/28/24Order Info: 07- - CMPOrder Info: [id number] - LIPID Performed By: #### L 501.9985, L500.4100, L100.0100, L500.4050 ####[facility] [address] [place], [address] AST [Catalytic activity/Vol] 26 U/L Normal <=37 [facility] Comment on above: Order Comment: Order Date: 08/28/24Order Info: 0786- - CMPOrder Info: [id number] - LIPID Performed By: #### L 501.9985, L500.4100, L100.0100, L500.4050 ####[facility] [address] [place], [address] Bilirubin [Mass/Vol] 0.66 mg/dL Normal 0.00-1.30 [facility] Comment on above: Order Comment: Order Date: 08/28/24Order Info: 0786- - CMPOrder Info: [id number] - LIPID Performed By: #### L 501.9985, L500.4100, L100.0100, L500.4050 ####[facility] [address] [place], [address] BUN/CRE 18.9 RATIO Normal 10-20 [facility] Comment on above: Order Comment: Order Date: 08/28/24Order Info: [id number] - CMPOrder Info: [id number] - LIPID Performed By: #### L 501.9985, L500.4100, L100.0100, L500.4050 ####[facility] [address] [place], [address] Calcium [Mass/Vol] 9.2 mg/dL Normal 7.6-11.0 [facility] Comment on above: Order Comment: Order Date: 08/28/24Order Info: [id number] - CMPOrder Info: [id number] - LIPID Performed By: #### L 501.9985, L500.4100, L100.0100, L500.4050 ####[facility] [address] [place], [address] Chloride [Moles/Vol] 107 mmol/L Normal 98-108 [facility] Comment on above: Order Comment: Order Date: 08/28/24Order Info: [id number] - CMPOrder Info: [id number] - LIPID Performed By: #### L 501.9985, L500.4100, L100.0100, L500.4050 ####[facility] [address] [place], [address] CO2 [Moles/Vol] 21.0 mmol/L Normal 21.0-32.0 [facility] Comment on above: Order Comment: Order Date: 08/28/24Order Info: [id number] - CMPOrder Info: [id number] - LIPID Performed By: #### L 501.9985, L500.4100, L100.0100, L500.4050 ####[facility] [address] [place], [address] Creatinine [Mass/Vol] 1.04 mg/dL Normal 0.70-1.20 [facility] Comment on above: Order Comment: Order Date: 08/28/24Order Info: [id number] - CMPOrder Info: [id number] - LIPID Performed By: #### L 501.9985, L500.4100, L100.0100, L500.4050 ####[facility] [address] [place], [address] GAP 10 Normal 5-15 [facility] Comment on above: Order Comment: Order Date: 08/28/24Order Info: [id number] - CMPOrder Info: [id number] - LIPID Performed By: #### L 501.9985, L500.4100, L100.0100, L500.4050 ####[facility] [address] [place], [address] GFR/1.73 sq M.predicted among non-blacks MDRD (S/P/Bld) [Vol rate/Area] 73 mL/min/{1.73_m2} Normal >60 [facility] Comment on above: Order Comment: Order Date: 08/28/24Order Info: 0786- - CMPOrder Info: [id number] - LIPID Result Comment: mL/m in/1.73m2 CKD-EPI Creatinine Equation (2020) Performed By: #### L 501.9985, L500.4100, L100.0100, L500.4050 ####[facility] [address] [place], [address] Globulin (S) [Mass/Vol] 2.8 g/dL Normal 2.2-4.2 [facility] Comment on above: Order Comment: Order Date: 08/28/24Order Info: [id number] - CMPOrder Info: [id number] - LIPID Performed By: #### L 501.9985, L500.4100, L100.0100, L500.4050 ####[facility] [address] [place], [address] Glucose [Mass/Vol] 122 mg/dL High 70-99 [facility] Comment on above: Order Comment: Order Date: 08/28/24Order Info: [id number] - CMPOrder Info: [id number] - LIPID Performed By: #### L 501.9985, L500.4100, L100.0100, L500.4050 ####[facility] [address] [place], [address] Potassium [Moles/Vol] 4.5 mmol/L Normal 3.3-5.1 [facility] Comment on above: Order Comment: Order Date: 08/28/24Order Info: [id number] - CMPOrder Info: [id number] - LIPID Performed By: #### L 501.9985, L500.4100, L100.0100, L500.4050 ####[facility] [address] [place], [address] Sodium [Moles/Vol] 138 mmol/L Normal 133-145 [facility] Comment on above: Order Comment: Order Date: 08/28/24Order Info: 0786- - CMPOrder Info: [id number] - LIPID Performed By: #### L 501.9985, L500.4100, L100.0100, L500.4050 ####[facility] [address] [place], [address] T PROT 6.8 g/dL Normal 5.9-8.4 [facility] Comment on above: Order Comment: Order Date: 08/28/24Order Info: [id number] - CMPOrder Info: [id number] - LIPID Performed By: #### L 501.9985, L500.4100, L100.0100, L500.4050 ####[facility] [address] [place], [address] Urea nitrogen [Mass/Vol] 20 mg/dL High 4-19 [facility] Comment on above: Order Comment: Order Date: 08/28/24Order Info: [id number] - CMPOrder Info: [id number] - LIPID Performed By: #### L 501.9985, L500.4100, L100.0100, L500.4050 ####[facility] [address] [place], [address] Eosinophil percentageOrdered By: Yecenia Alvaradoke on 08-28-2024 Eosinophils/100 WBC (Bld) 5.1 % High 0-5 [facility] Erythrocyte distribution wid th (RBC) [Ratio]Ordered By: [facility] on 08-28-2024 Erythrocyte distribution width (RBC) [Entitic vol] 45.1 fL High 35.1-43.9 [facility] Erythrocyte distribution wid th ratioOrdered By: [facility] on 08-28-2024 Erythrocyte distribution width (RBC) [Ratio] 14.0 % 11.6-14.6 [facility] GFR/1.73 sq M.predicted kelly g non-blacks MDRD (S/P/Bld) [Vol rate/Area]Ordered By: [facility] on 08-28-2024 Estimated GFR (MDRD) Non-Af Amer 73 >60 [facility] Comment on above: mL/min/1.73m2 CKD-EP I Creatinine Equation (2020) Hematocrit Auto (Bld) [Volum e fraction]Ordered By: [facility] on 08-28-2024 Hematocrit (Bld) [Volume fraction] 38.1 % Low 40-54 [facility] Hemoglobin A1con 08-28-2024 HbA1c (Bld) [Mass fraction] 7.3 % High <=5.6 [facility] Comment on above: Order Comment: Order Date: 08/28/24Order Info: [id number] - A1C Result Comment: Norm al < 5.7 % Prediabetic 5.7 - 6.4 % Diabetic >or= 6.5 % Please note range changes. Performed By: #### L 501.9985, L500.4100, L100.0100, L500.4050 ####[facility] [address] [place], [place], [id number] Hemoglobin A1c percentageOrd ered By: [facility] on 08-28-2024 HbA1c (Bld) [Mass fraction] 7.3 % High <5.7 [facility] Comment on above: Normal < 5.7 % Predi abetic 5.7 - 6.4 % Diabetic >or= 6.5 % Please note range changes. Hemoglobin measurementOrdere d By: Yecenia Agrawal on 08-28-2024 Hemoglobin (Bld) [Mass/Vol] 12.4 g/dL Low 13.0-16.5 [facility] Immature granulocytes/100 WB C Auto (Bld)Ordered By: Yecenia Agrawal on 08-28-2024 Immature granulocytes/100 WBC (Bld) 0.200 % 0.0-0.9 [facility] Comment on above: IG% - Immature Granu locytes (promyelocytes, myelocytes and metamyelocytes) > 1% indicates that a LEFT SHIFT is Present. LDL calc ser/plasOrdered By: Yecenia Agrawal on 08-28-2024 LDL Cholesterol, Calculated 60 mg/dL [facility] Comment on above: Poddqtofrg=049-059 m g/dL & Higher Brao=855 mg/dL or greater Laboratory - Chemistry and C hemistry - challengeOrdered By: Yecenia Agrawal on 08-28-2024 AST [Catalytic activity/Vol] 26 U/L <38 [facility] Lipid Profileon 08-28-2024 CHOL:HDL 3.26 Normal [facility] Comment on above: Order Comment: Order Date: 08/28/24Order Info: [id number] - CMPOrder Info: [id number] - LIPID Performed By: #### L 501.9985, L500.4100, L100.0100, L500.4050 ####[facility] [address] [place], [place], [id number] Cholesterol [Mass/Vol] 112 mg/dL Normal <=200 [facility] Comment on above: Order Comment: Order Date: 08/28/24Order Info: 0786-1 - CMPOrder Info: [id number] - LIPID Result Comment: Chol esterol level, Desirable <200 mg/dL Borderline high cholesterol 200-239 mg/dL High cholesterol >=240 mg/dL Recommendations of the NCEP Adult Treatment Panel for the following risk-cutoff thresholds for the [place] population. Performed By: #### L 501.9985, L500.4100, L100.0100, L500.4050 ####[facility] [address] [place], [address] Cholesterol in HDL [Mass/Vol] 34 mg/dL Low [facility] Comment on above: Order Comment: Order Date: 08/28/24Order Info: 0786-1 - CMPOrder Info: [id number] - LIPID Result Comment: Gina onal Cholesterol Education Program (NCEP) guidelines: <40 mg/dL: Low HDL-cholesterol (major risk factor for CHD) >= 60 mg/dL: High HDL-cholesterol (negative risk factor for CHD) HDL-cholesterol is affected by a number of factors, e.g. smoking, exercise, hormones, sex and age. Performed By: #### L 501.9985, L500.4100, L100.0100, L500.4050 ####[facility] [address] [place], [address] Cholesterol in LDL [Mass/Vol] 60 mg/dL Normal [facility] Comment on above: Order Comment: Order Date: 08/28/24Order Info: 0786- - CMPOrder Info: [id number] - LIPID Result Comment: Bord adaagp=294-158 mg/dL Higher Lxtu=868 mg/dL or greater Performed By: #### L 501.9985, L500.4100, L100.0100, L500.4050 ####[facility] [address] [place], [address] Cholesterol in VLDL [Mass/Vol] 17 mg/dL Normal 5-40 [facility] Comment on above: Order Comment: Order Date: 08/28/24Order Info: [id number] - CMPOrder Info: [id number] - LIPID Performed By: #### L 501.9985, L500.4100, L100.0100, L500.4050 ####[facility] [address] [place], [address] Triglyceride [Mass/Vol] 87 mg/dL Normal [facility] Comment on above: Order Comment: Order Date: 08/28/24Order Info: 0786- - CMPOrder Info: [id number] - LIPID Result Comment: The drugs N-Acetylcysteine and Metamizole may falsely depress this assay. Normal range: <150 mg/dL Borderline High: 150-199 mg/dL High: 200-499 mg/dL Very High: >500 mg/dL Performed By: #### L 501.9985, L500.4100, L100.0100, L500.4050 ####[facility] [address] [place], [address] Lymphocytes Auto (Unsp spec) [#/Vol]Ordered By: Yecenia Agrawal on 08-28-2024 Lymphocytes (Bld) [#/Vol] 0.59 10*3/uL Low 0.83-4.51 [facility] Lymphocytes/100 WBC Auto (Un sp spec)Ordered By: Yecenia Agrawal on 08-28-2024 Lymphocytes/100 WBC (Bld) 10.1 % Low 19-41 [facility] MCV (mean corpuscular volume ) determinationOrdered By: Yecenia Agrawal on 08-28-2024 MCV (RBC) [Entitic vol] 89.6 fL 80-94 [facility] Mean corpuscular hemoglobin (MCH) determinationOrdered By: Yecenia Agrawal on 08-28-2024 MCH (RBC) [Entitic mass] 29.2 pg 27.0-32.0 [facility] Mean corpuscular hemoglobin concentration (MCHC) determinationOrdered By: Yecenia Agrawal on 08-28-2024 MCHC (RBC) [Mass/Vol] 32.5 g/dL 32-36 [facility] Mean platelet volume determi nationOrdered By: Yecenia Agrawal on 08-28-2024 Platelet mean volume (Bld) [Entitic vol] 10.3 fL 6.2-12.0 [facility] Monocyte percentageOrdered B y: Yecenia Agrawal on 08-28-2024 Monocytes/100 WBC (Bld) 10.4 % High 0-10 [facility] Neutrophil percentageOrdered By: Yecenia Agrawal on 08-28-2024 Neutrophils/100 WBC (Bld) 73.7 % High 47-70 [facility] Nucleated red blood cell per centageOrdered By: Yecenia Agrawal on 08-28-2024 Nucleated RBC/100 WBC (Bld) [Ratio] 0 % 0-5 [facility] Platelet countOrdered By: Jerome Agrawal on 08-28-2024 Platelets (Bld) [#/Vol] 229 10*3/uL 150-450 [facility] Potassium (Unsp spec) [Mass/ Vol]Ordered By: Yecenia Agrawal on 08-28-2024 Potassium [Moles/Vol] 4.5 mmol/L 3.3-5.1 [facility] RBC Auto (Bld) [#/Vol]Ordere d By: Yecenia Agrawal on 08-28-2024 RBC (Bld) [#/Vol] 4.25 10*6/uL Low 4.6-6.2 [facility] Screening total cholesterol/ high density lipoprotein (HDL) cholesterol ratioOrdered By: Yecenia Agrawal on 08-28-2024 Cholesterol.total/Cho lesterol in HDL [Mass ratio] 3.26 {ratio} [facility] Serum creatinine measurement (mass/volume)Ordered By: Yecenia Agrawal on 08-28-2024 Creatinine [Mass/Vol] 1.04 mg/dL 0.70-1.20 [facility] Serum globulin measurementOr dered By: Yecenia Agrawal on 08-28-2024 Globulin (S) [Mass/Vol] 2.8 g/dL 2.2-4.2 [facility] Serum glucose measurement (m ass/volume)Ordered By: Yecenia Agrawal on 08-28-2024 Glucose [Mass/Vol] 122 mg/dL High 70-99 [facility] Serum or plasma alanine keen otransferase (ALT) measurementOrdered By: Yecenia Agrawal on 08-28-2024 ALT [Catalytic activity/Vol] 19 U/L <47 [facility] Serum or plasma albumin kyleigh urement (mass/volume)Ordered By: Yecenia Agrawal on 08-28-2024 Albumin [Mass/Vol] 4.0 g/dL 3.4-4.8 [facility] Serum or plasma albumin/glob ulin mass ratioOrdered By: Yecenia Agrawal on 08-28-2024 Albumin/Globulin [Mass ratio] 1.4 {ratio} 0.9-2.4 [facility] Serum or plasma alkaline alexandra sphatase measurementOrdered By: Yecenia Agrawal on 08-28-2024 ALP [Catalytic activity/Vol] 127 U/L 40-129 [facility] Serum or plasma calcium kyleigh urement (mass/volume)Ordered By: Yecenia Agrawal on 08-28-2024 Calcium [Mass/Vol] 9.2 mg/dL 7.6-11.0 [facility] Serum or plasma cholesterol in HDL measurement (mass/volume)Ordered By: Yecenia Agrawal on 08-28-2024 Cholesterol in HDL [Mass/Vol] 34 mg/dL Low >40 [facility] Comment on above: National Cholesterol Education Program (NCEP) guidelines:<40 mg/dL: Low HDL-cholesterol (major risk factor for CHD)>= 60 mg/dL: High HDL-cholesterol (negative risk factor for CHD)HDL-cholesterol is affected by a number of factors, e.g. smoking, exercise, hormones, sex and age. Serum or plasma cholesterol measurement (mass/volume)Ordered By: Yecenia Agrawal on 08-28-2024 Cholesterol [Mass/Vol] 112 mg/dL <201 [facility] Comment on above: Cholesterol level, D esirable <200 mg/dLBorderline high cholesterol 200-239 mg/dLHigh cholesterol >=240 mg/dLRecommendations of the NCEP Adult Treatment Panel for the following risk-cutoff thresholds for the [place] population. Serum or plasma urea nitroge n measurement (mass/volume)Ordered By: Yecenia Agrawal on 08-28-2024 Urea nitrogen [Mass/Vol] 20 mg/dL High 4-19 [facility] Sodium levelOrdered By: Freddy Agrawal on 08-28-2024 Sodium [Moles/Vol] 138 mmol/L 133-145 [facility] Total proteinOrdered By: Rhonda Agrawal on 08-28-2024 Protein [Mass/Vol] 6.8 g/dL 5.9-8.4 [facility] Triglycerides measurementOrd ered By: Yecenia Agrawal on 08-28-2024 Triglyceride [Mass/Vol] 87 mg/dL <199 [facility] Comment on above: The drugs N-Acetylcy steine and Metamizole may falsely depress this assay. Normal range: <150 mg/dLBorderline High: 150-199 mg/dLHigh: 200-499 mg/dLVery High: >500 mg/dL White blood cell (WBC) count Ordered By: Yecenia Agrawal on 08-28-2024 WBC (Bld) [#/Vol] 5.9 10*3/uL 4.4-11.0 [facility] PSA SerPl-mCncon 08-21-2024 Prostate specific Ag [Mass/Vol] 0.33 ng/mL Normal <2.60 [facility] Comment on above: Order Comment: Speci men Type: BLOOD SPECIMEN Ordering Facility: [facility] Address: [address] [place] [address] Result Comment: Tota l PSA test methodology used is the Electrochemiluminescence Immunoassay by [email or web address]. Total PSA values by differing methodologies cannot be interchanged. Performed By: #### 2 857-1 #### [facility] CLIA [id number] [address] [place] [address] [place] Testost SerPl-mCncon 025 Testosterone [Mass/Vol] 280 ng/dL Normal 193-824 [facility] Comment on above: Order Comment: Speci men Type: BLOOD SPECIMEN Ordering Facility: [facility] Address: [address] [place] [address] Result Comment: A te stosterone level in the 193-320 ng/dL range with associated clinical symptoms is considered low and may indicate hypogonadism (from NEJ 2010 363:123-135). Results >320 ng/dL are considered normal. Performed By: #### 2 986-8 #### [facility] CLIA [id number] [address] [place] [address] [place] NM PET/CT PROSTATE WBon NM PET/CT PROSTATE WB * * *Final Report* * * DATE OF EXAM: Jun 18 2024 3:34PM DAVID [id number] - NM PET/CT PROSTATE WB / PROCEDURE REASON: Prostate cancer (HCC) * * * * Physician Interpretation * * * * EXAMINATION: PROSTATE-SPECIFIC MEMBRANE ANTIGEN PET-CT CLINICAL HISTORY: History of prostate cancer with rising PSA being evaluated for recurrence. EMR: resected [id number] prostate cancer status post 6600 cGy in 33 fractions to pelvis/prostate 2022. EXAM CATEGORY: Subsequent treatment strategy. TECHNIQUE: Radiopharmaceutical was administered intravenously followed later on by PET imaging from the skull vertex to thighs. Free breathing, low dose CT of the same body region was acquired without IV contrast for attenuation correction and anatomic localization. Unenhanced imaging is limited for the evaluation of some pathology and the acquired CT was not designed to produce diagnostic CT scan quality. Physiologic/non-pathologic uptake in some body regions could confound or obscure some pathology. * CT Dose-Length Product (DLP): 440 mGy*cm * CT Dose Reduction Employed: Yes * Injection site: Right Forearm-Antecubital * Injected activity: 5.4 mCi * Uptake Time: 76 minutes * Radiopharmaceutical: Ga-68 PSMA (Locametz) COMPARISON: No previous PSMA PET/CT available CORRELATION: No recent relevant prior imaging available RESULT: REFERENCES: Uptake by the injected radiopharmaceutical serves as a surrogate marker for prostate-specific membrane antigen (PSMA) expression. All reported standardized uptake values represent maximum SUV (SUVmax) per body weight, unless otherwise specified. SUV Reference Values: * Background Salivary Gland: SUVmax 24.4 * Blood Pool (Descending Aorta): SUVmax 2.0 * Background Liver: SUVmax 5.5 Localizer Images: No additional findings. HEAD AND NECK: Head: No radiotracer avid lesion or mass effect in the intracranial compartment. Aerodigestive Tract: No radiotracer avid lesion. Lymph Nodes: No radiotracer avid lymphadenopathy. Neck Soft Tissues: No radiotracer avid thyroid nodule. CHEST: Lungs and Pleura: No radiotracer avid mass, nodule, or consolidation. No pleural effusion. Lymph Nodes: No radiotracer avid lymphadenopathy. Mediastinum: No radiotracer avid mass. Cardiovascular: Blood pool activity. No pericardial effusion. Normal heart size. Thoracic aortic and coronary artery calcifications. Chest Wall: No radiotracer avid soft tissue lesion. ABDOMEN AND PELVIS: Hepatobiliary: No radiotracer avid lesion. No measurable mass. Spleen: No radiotracer avid lesion. No splenomegaly. Pancreas: No radiotracer avid lesion. Adrenals: No radiotracer avid nodule. Urinary Tract: Physiologic radiotracer excretion in the urinary tract. No hydronephrosis. GI Tract: No radiotracer avid lesion. No bowel dilation. Peritoneum: No radiotracer avid lesion. No ascites. Evaluation limited by the beam hardening from the bilateral hip prostheses hardware. Lymph Nodes: * Abdomen (including common iliac): No radiotracer avid lymphadenopathy. * Pelvis (below common iliac): No radiotracer avid lymphadenopathy. Vasculature: Blood pool activity. Vascular calcifications without an abdominal aortic aneurysm. Prostate and Seminal Vesicles: No radiotracer avid lesion in the prostatectomy bed. Pelvis Soft Tissues: No radiotracer avid lesion. MUSCULOSKELETAL: Bones: No radiotracer avid lesion. Postradiation bone marrow fibrosis. No lytic or sclerotic lesion. Degenerative changes. Soft Tissues: No radiotracer avid lesion. IMPRESSION: PROSTATE: * No PSMA expressing lesion in the prostatectomy bed, PSA 0.22 ng/mL. ANNY DISEASE: * No PSMA expressing pelvic lymphadenopathy, within the limitation of obscured evaluation of the lower pelvis secondary to the bilateral hip prostheses. METASTATIC DISEASE: * No PSMA expressing distant metastases. ADDITIONAL FINDINGS: * Chronic changes, as described. Please refer to the synoptic report for details. Soaping Machine Back Tender: PRERNA Transcribe Date/Time: Jun 20 2024 8:40A Dictated by : CHINA WASHINGTON MD This examination was interpreted and the report reviewed and electronically signed by: CHINA WASHINGTON MD on Jun 20 2024 9:06AM EST [id number] Normal [facility] JER[facility]INE [facility] ([id number]) 1945 M NFR Date Time Provider Department 06/07/24 FRANCHESKA CHEUNG During your visit today, we recorded the following information about you: Francheska Cheugn RN 06/07/2024 11:25 AM Signed This form is used for MAIN CAMPUS APPOINTMENTS ONLY. Is this request for a Main Remlap PET scan appointment? Yes: Rn Neonatal Icu: Francheska Cheung RN Requesting Person (Last Name, First Name): Francheska Cheung [facility] Area Code + Phone/Pager: [facility] #[id number] Who do we call to schedule this appointment? Patient Requesting Staff Marie Beavers MD Area Code + Phone/Pager: N/A PET Orders (A delay in scheduling will result if the orders are not present at time of review): Internal ADDITIONAL ACTION MAY BE REQUIRED IF PATIENTS OON INSURANCE OR SELF PAY COVERAGE HAS NOT BEEN CLEARED FOR REQUESTED APPOINTMENT. Scheduling: RUBI: As soon as insurance will allow What account will this PET appointment be linked to? P/F Type of PET: Oncology: Are there additional diagnostic CT scans required to be done at time of PET scan? No Is the request for a PET MR ? No What account will diagnostic testing appointment be linked to? P/F Will the patient need anesthesia? 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 Date of Last Image: na Scan: N/A Isotope used: na Positive Scan Schedule as place of last (DOS) MC or Region Negative Scan Schedule at ANY PSMA site requested Isotope used: Region F-18 flotufolastat,18F flotufolastat Posluma MC GA68 PSMA PET 21446/LOCAMETZ (Gallium GA-68 Gozetotide) (6 mCi) A9800 - MC Posluma (Flotufolastat F18) (8mCi), A9608 - Region Auth#: [id number] Date Range: 06-07-24 to 09-04-24 for 1 Gu NPI: MARIE BEAVERS [id number] Member ID: Judy [id number] Site/Contact: Berto Case/Ref#: Notes: system auto approved PET/Ct Prostate Route to or Requested Scheduling Pool: P PET APPRAISAL COORDINATOR Wilferdo CLERICAL POOL([place]), Wilfredo HANNA MASH FILTER PRESS OPERATOR Sara Lux 06/08/2024 8:23 AM Signed 06/08 lvm Ava Harrington 06/08/2024 1:29 PM Signed Scheduled 06/18 @ 1400 Allergies As of Date: 06/07/2024 (No Known Allergies) Date Reviewed: 05/24/2023 Reviewed by: Precious Deleon MA - Fully Assessed Reason for Visit: Nm Pet Request [8628] Prescriptions as of 06/08/2024 - spironolactone (ALDACTONE) 25 mg tablet Take 1 tablet by mouth once daily. - benazepril 40 mg tablet Take 1 tablet by mouth once daily. - atorvastatin (LIPITOR) 80 mg tablet Take 1 tablet by mouth daily at bedtime. - aspirin, enteric coated (ASPIRIN, ENTERIC COATED) 81 mg EC tablet Take 81 mg by mouth once daily. Facility-Administered Medications as of 06/08/2024 - leuprolide 30 mg injection (ELIGARD) Meds Comments as of 03/26/2016: Problem List As Of Date 06/07/2024 Noted Resolved Mixed hyperlipidemia [E78.2] 02/02/2005 Essential hypertension, benign [I10] 02/02/2005 LOC OSTEOARTH NOS-SHLDER [M19.019] 02/02/2005 GOUT NOS [M10.9] 02/28/2007 Coronary artery disease involving pilot point franz* Medication Side Effects [T88.7XXA] 01/09/2010 BPH w urinary obs/LUTS [N40.1, N13.8] 06/08/2010 Elevated PSA [R97.20] 07/06/2010 Gynecomastia [N62] 12/23/2011 Allergic rhinitis [J30.9] 10/02/2012 Controlled type 2 diabetes mellitus without com*11/10/2017 Elevated prostate specific antigen (PSA) [R97.2*04/24/2021 Prostate cancer (HCC) [C61] 07/10/2021 Abnormal stress test [R94.39] 08/27/2021 Coronary artery disease involving pilot point franz*08/27/2021 09/30/2021 Presence of drug coated stent in left circumfle*08/27/2021 Hyperlipidemia LDL goal <70 [E78.5] 08/27/2021 Hypertension goal BP (blood pressure) < 140/80 *08/27/2021 Spinal stenosis of lumbar region without neurog*09/28/2021 Discharge planning issues [Z75.8] 09/29/2021 Paroxysmal atrial fibrillation (HCC) [I48.0] 09/30/2021 Coronary artery disease due to calcified franz*09/30/2021 10/05/2021 Atelectasis [J98.11] 09/30/2021 10/04/2021 Hypovolemia [E86.1] 09/30/2021 10/04/2021 Pain, postoperative, acute [G89.18] 09/30/2021 10/04/2021 Junctional bradycardia [R00.1] 09/30/2021 10/03/2021 Hypervolemia [E87.70] 10/01/2021 10/04/2021 VAISHNAVI (acute kidney injury) (HCC) [N17.9] 0 (more content not included)... Normal [facility] PSA SerPl-mCncon 05-23-2024 Prostate specific Ag [Mass/Vol] 0.22 ng/mL Normal <2.60 [facility] Comment on above: Order Comment: Speci men Type: BLOOD SPECIMEN Ordering Facility: [facility] Address: [address] [place] [address] Result Comment: Tota l PSA test methodology used is the Electrochemiluminescence Immunoassay by [employer]. Total PSA values by differing methodologies cannot be interchanged. Performed By: #### 2 857-1 #### [facility] CLIA [id number] [address] [place], [place] [address] [address] [place] Testost SerPl-mCncon 025 Testosterone [Mass/Vol] 221 ng/dL Normal 193-824 [facility] Comment on above: Order Comment: Speci men Type: BLOOD SPECIMEN Ordering Facility: [facility] Address: [address] [place] [address] Result Comment: A te stosterone level in the 193-320 ng/dL range with associated clinical symptoms is considered low and may indicate hypogonadism (from [facility] 2009 [id number]). Results >320 ng/dL are considered normal. Performed By: #### 2 986-8 #### [facility] CLIA [id number] [address] [place] [address] [id number] [id number] [facility] Cardiac Cath Diagnosticon Cardiac Cath Diagnostic [facility] Imaging Services [address] [place] [address] Cardiac Cath Diagnostic MR#: [id number] Acct: [id number] Name: JERMAINE BEGUM Rep #: [id number] : 1945 78 From: Junior Johnson MD PCP: Dr. Yecenia Agrawal MD Status:[facility] Patient Name: JERMAINE BEGUM Study Date: 05/03/2024 Performing: Junior Johnson MD Ht: 73 inches 185.42 cm : 1945 Wt: 237 lbs 107.5 kg Age: 78 Gender: male BSA: 2.31 PROCEDURE(S) PERFORMED DC03-(23350)LHC/COR/LV/CABG CLINICAL PROFILE AND INDICATIONS Indications: Other Heart Failure: None Stress/Imaging Stress Test w/SPECT MPI: Yes Result: IndeterminantStress Test with SPECT MPI: Indeterminant CAD Presentations: Other: SOB CONCLUSIONS Coronary artery disease status post carotid bypass surgery with patent grafts noted with a MANTILLA to the LAD saphenous vein graft obtuse marginal branch and saphenous vein graft to the right coronary artery and preserved ejection fraction. RECOMMENDATIONS Medical therapy DESCRIPTION OF PROCEDURE The patient arrived to the procedure lab. The risks and benefits of the procedure as well as a full description of our services here and current unavailability of surgical backup were fully explained to the patient and/or their significant other prior to the catheterization. The Timeout was completed, verifying the correct patient and procedure. The patient's procedural site was prepped and draped in the usual fashion. Local anesthetic was given subcutaneously to left radial region with Lidocaine 2%. Using a modified Seldinger technique, arterial access was obtained via the left radial artery, a 6Fr sheath was inserted. Left internal mammary artery graft to the LAD selective angiography was performed in multiple views using a 5 Fr. IM catheter. Left Coronary Artery selective angiography was performed in multiple views using a 5 Fr. JL4 catheter. Right Coronary Artery selective angiography was then performed in multiple views using a 5 Fr. 3DRC (Oracio) catheter. Saphenous Vein graft to the OM 1 selective angiography was performed in multiple views using a 5 Fr. AR MOD catheter. Saphenous Vein graft to the RPDA selective angiography was performed in multiple views using a 5 Fr. AR MOD catheter. Left Ventriculography was performed in THOMAS projection using a 5 Fr. Pigtail catheter. LV to AO pullback pressures were then recorded.The arterial sheath was pulled and a TR Band was applied for hemostasis CORONARY ANGIOGRAPHY DOMINANCE: Right Dominant LEFT HEART ASSESSMENT Left Ventricular Ejection Fraction: by LV Gram 60 % Normal LV wall motion Normal Left Ventricular systolic function LEFT MAIN: Angiographically normal LEFT ANTERIOR DESCENDING ARTERY: Proximal high-grade 80% stenosis before the takeoff of the first diagonal branch with minimal disease the mid left anterior descending artery is totally occluded CIRCUMFLEX ARTERY: Previously stented vessel with moderate in-stent stenosis and then continuing to an obtuse marginal branch with competitive flow RIGHT CORONARY ARTERY: Moderate to severely diseased right coronary artery which is subtotally occluded in the midsegment GRAFTS: MANTILLA graft to the Mid LAD is patent Saphenous Vein graft to the 1st OM is patent Saphenous Vein graft to the RCA And then continues to the PDA and posterolateral is noted to be patent COMPLICATIONS No Complications PROCEDURE MEDICATIONS Fentanyl 50 mcg IV Versed 1 mg IV Versed 1 mg IV Oxygen: 2 L/min via nasal cannula Heparin given IA 05/03/2024 12:27:00 Verapamil 2.5mg, Ntg 100mcgs, 3000 units of Heparin given IA 05/03/2024 12:27:00 SUMMARY OF HEMODYNAMIC DATA Time AIR REST ECG 11:08:45 AO 127/49 (86) SA 12:32:55 LV 143/14, 23 12:57:15 LV 148/10, 20 12:57:23 LV 136/8, 19 12:58:02 LVp 137/10, 16 12:58:11 AOp 147/59 (92) 12:58:18 Signed By Junior Johnson MD On 05/03/2024 13:19:36 Junior Johnson MD 05/03/24 1320 Date Junior Johnson MD Cosigner Signature: Date (if indicated) CC: Dr. Yecenia Agrawal MD; Dr. Junior Johnson MD Date Dictated: 05/03/24 1223 Date Transcribed: 05/03/24 1319 Soaping Machine Back Tender: [place] Signed Normal [facility] Absolute neutrophil countOrd ered By: Talia Quinteros on 04-27-2024 Neutrophils (Bld) [#/Vol] 5.3 10*3/uL 2.0-7.7 [facility] Basic Metabolic Profile (BMP )on 04-27-2024 BUN/CRE 18.5 RATIO Normal 10-20 [facility] Comment on above: Performed By: #### L 100.0100, L500.2500 #### [facility] [address] [place], [address] CA,Total 9.2 mg/dL Normal 8.5-10.1 [facility] Comment on above: Performed By: #### L 100.0100, L500.2500 #### [facility] [address] [place], [address] Chloride [Moles/Vol] 108 mmol/L High 98-107 [facility] Comment on above: Performed By: #### L 100.0100, L500.2500 #### [facility] [address] [place], [address] CO2 [Moles/Vol] 26.0 mmol/L Normal 21.0-32.0 [facility] Comment on above: Performed By: #### L 100.0100, L500.2500 #### [facility] [address] [place], [address] Creatinine [Mass/Vol] 1.08 mg/dL Normal 0.70-1.30 [facility] Comment on above: Result Comment: The validity of the calculated GFR GFRAA in patients over 70 years has not been determined. Clinical correlation is essential. Performed By: #### L 100.0100, L500.2500 #### [facility] [address] [place], [address] EST GFR - AA 85 mL/min Normal >60 [facility] Comment on above: Result Comment: Afri can Venezuelan GFR Calc Performed By: #### L 100.0100, L500.2500 #### [facility] [address] [place], [address] GAP 5 Normal 5-15 [facility] Comment on above: Performed By: #### L 100.0100, L500.2500 #### [facility] [address] [place], [address] GFR/1.73 sq M.predicted among non-blacks MDRD (S/P/Bld) [Vol rate/Area] 70 mL/min/{1.73_m2} Normal >60 [facility] Comment on above: Result Comment: Non- GFR Calc Performed By: #### L 100.0100, L500.2500 #### [facility] [address] [place], [address] Glucose [Mass/Vol] 107 mg/dL High 74-106 [facility] Comment on above: Result Comment: Fast ing Glucose result from 100 to 125 mg/dL suggests IMPAIRED HOMEOSTASIS per A.D.A. criteria. Performed By: #### L 100.0100, L500.2500 #### [facility] [address] [place], [address] Potassium [Moles/Vol] 4.3 mmol/L Normal 3.5-5.1 [facility] Comment on above: Performed By: #### L 100.0100, L500.2500 #### [facility] [address] [place], [address] Sodium [Moles/Vol] 140 mmol/L Normal 136-145 [facility] Comment on above: Performed By: #### L 100.0100, L500.2500 #### [facility] [address] [place], [address] Urea nitrogen [Mass/Vol] 20 mg/dL High 7- [facility] Comment on above: Performed By: #### L 100.0100, L500.2500 #### [facility] [address] [place], [address] Basophil percentageOrdered B y: Talia Quinteros on 04-27-2024 Basophils/100 WBC (Bld) 0.3 % 0- [facility] Blood urea nitrogen (BUN)/cr eatinine ratioOrdered By: Talia Quinteros on 04-27-2024 Urea nitrogen/Creatinine [Mass ratio] 18.5 mg/mg 10- [facility] CBC W/Diff, Automatedon 04-15 Absolute Lymph 0.77 X10 3/uL Low 0.83-4.51 [facility] Comment on above: Performed By: #### L 100.0100, L500.2500 #### [facility] [address] [place], [address] Absolute Neut 5.3 X10 3/uL Normal 2.0-7.7 [facility] Comment on above: Performed By: #### L 100.0100, L500.2500 #### [facility] [address] [place], [address] Basophils/100 WBC (Bld) 0.3 % Normal 0-1 [facility] Comment on above: Performed By: #### L 100.0100, L500.2500 #### [facility] [address] [place], [address] Eosinophils/100 WBC (Bld) 2.8 % Normal 0-5 [facility] Comment on above: Performed By: #### L 100.0100, L500.2500 #### [facility] [address] [place], [address] Erythrocyte distribution width (RBC) [Ratio] 14.3 % Normal 11.6-14.6 [facility] Comment on above: Performed By: #### L 100.0100, L500.2500 #### [facility] [address] [place], [address] Hematocrit (Bld) [Volume fraction] 37.3 % Low 40-54 [facility] Comment on above: Performed By: #### L 100.0100, L500.2500 #### [facility] [address] [place], [address] Hemoglobin (Bld) [Mass/Vol] 12.2 g/dL Low 13.0-16.5 [facility] Comment on above: Performed By: #### L 100.0100, L500.2500 #### [facility] [address] [place], [address] IG% 0.400 Normal 0.0-0.9 [facility] Comment on above: Result Comment: IG% - Immature Granulocytes (promyelocytes, myelocytes and metamyelocytes) > 1% indicates that a LEFT SHIFT is Present. Performed By: #### L 100.0100, L500.2500 #### [facility] [address] [place], [address] Lymphocytes/100 WBC (Bld) 11.0 % Low 19-41 [facility] Comment on above: Performed By: #### L 100.0100, L500.2500 #### [facility] [address] [place], [address] MCH (RBC) [Entitic mass] 29.2 pg Normal 27.0-32.0 [facility] Comment on above: Performed By: #### L 100.0100, L500.2500 #### [facility] [address] [place], [address] MCHC (RBC) [Mass/Vol] 32.7 g/dL Normal 32-36 [facility] Comment on above: Performed By: #### L 100.0100, L500.2500 #### [facility] [address] [place], [address] MCV (RBC) [Entitic vol] 89.2 fL Normal 80-94 [facility] Comment on above: Performed By: #### L 100.0100, L500.2500 #### [facility] [address] [place], [address] Monocytes/100 WBC (Bld) 10.5 % High 0-10 [facility] Comment on above: Performed By: #### L 100.0100, L500.2500 #### [facility] [address] [place], [address] Neutrophils/100 WBC (Bld) 75.0 % High 47-70 [facility] Comment on above: Performed By: #### L 100.0100, L500.2500 #### [facility] [address] [place], [address] Nucleated RBC (Bld) [#/Vol] 0 10*3/uL Normal 0-5 [facility] Comment on above: Performed By: #### L 100.0100, L500.2500 #### [facility] [address] [place], [address] Platelet mean volume (Bld) [Entitic vol] 10.6 fL Normal 6.2-12.0 [facility] Comment on above: Performed By: #### L 100.0100, L500.2500 #### [facility] [address] [place], [address] Platelets (Bld) [#/Vol] 260 10*3/uL Normal 150-450 [facility] Comment on above: Performed By: #### L 100.0100, L500.2500 #### [facility] [address] [place], [address] RBC (Bld) [#/Vol] 4.18 10*6/uL Low 4.6-6.2 [facility] Comment on above: Performed By: #### L 100.0100, L500.2500 #### [facility] [address] [place], [address] RDW SD 46.0 fl High 35.1-43.9 [facility] Comment on above: Performed By: #### L 100.0100, L500.2500 #### [facility] [address] [place], [address] WBC (Bld) [#/Vol] 7.0 10*3/uL Normal 4.4-11.0 [facility] Comment on above: Performed By: #### L 100.0100, L500.2500 #### [facility] [address] [place], [address] Carbon dioxide measurementOr dered By: Talia Quinteros on 04-27-2024 CO2 [Moles/Vol] 26.0 mmol/L 21.0-32.0 [facility] Chest PA and Lateralon 04-27 Chest PA and Lateral [facility] Imaging Services [address] [place] [address] Chest PA and Lateral MR#: [id number] Acct: [id number] Name: JERMAINE BEGUM Rep #: [id number] : 1945 M 78 From: Elmo White MD PCP: Dr. Yecenia Agrawal MD [place] [facility] [place]: Chest PA and Lateral Date of Exam: 04/27/24 Exam# [id number] Ordering Dr: Talia Quinteros PA [id number] EXAM: XR CHEST, 2 VIEWS CLINICAL INDICATION: heart cath TECHNIQUE: Frontal and lateral views of the chest. COMPARISON: Two-view chest 09/17/2020 FINDINGS: LUNGS AND PLEURAL SPACES: Unremarkable. No consolidation or edema. No pneumothorax. No effusion. HEART: Unremarkable. Cardiac silhouette not enlarged. MEDIASTINUM: Surgical changes of the mediastinum. BONES/JOINTS: Degenerative changes of the thoracic spine. No acute fracture. SOFT TISSUES: Unremarkable. RAD/Chest PA and Lateral IMPRESSION: No acute findings in the chest. Electronically Signed: Elmo White MD at 12:07 EST , CC: Dr. Yecenia Agrawal MD; ARELY [place] Soaping Machine Back Tender: Signed Normal [facility] Chloride measurementOrdered By: Talia Quinteros on 04-27-2024 Chloride [Moles/Vol] 108 mmol/L High 98-107 [facility] Eosinophil percentageOrdered By: Talia Quinteros on 04-27-2024 Eosinophils/100 WBC (Bld) 2.8 % 0-5 [facility] Erythrocyte distribution wid th (RBC) [Ratio]Ordered By: Talia Quinteros on 04-27-2024 Erythrocyte distribution width (RBC) [Entitic vol] 46.0 fL High 35.1-43.9 [facility] Erythrocyte distribution wid th ratioOrdered By: Talia Quinteros on 04-27-2024 Erythrocyte distribution width (RBC) [Ratio] 14.3 % 11.6-14.6 [facility] Estimated glomerular filtrat ion rate (GFR) AmericanOrdered By: Talia Quinteros on 04-27-2024 Estimated GFR (MDRD) Amer 85 mL/min >60 [facility] Comment on above: GFR Calc Glomerular filtration rate ( GFR) estimationOrdered By: Talia Quinteros on 04-27-2024 Estimated GFR (MDRD) Non-Af Amer 70 mL/min >60 [facility] Comment on above: Non- GFR Calc Glucose measurementOrdered B y: Talia Quinteros on 04-27-2024 Glucose [Mass/Vol] 107 mg/dL High 74-106 [facility] Comment on above: Fasting Glucose resu lt from 100 to 125 mg/dL suggests IMPAIRED HOMEOSTASIS per A.D.A. criteria. Hematocrit Auto (Bld) [Volum e fraction]Ordered By: Talia Quinteros on 04-27-2024 Hematocrit (Bld) [Volume fraction] 37.3 % Low 40-54 [facility] Hemoglobin measurementOrdere d By: Talia Quinteros on 04-27-2024 Hemoglobin (Bld) [Mass/Vol] 12.2 g/dL Low 13.0-16.5 [facility] Immature granulocytes/100 WB C Auto (Bld)Ordered By: Talia Quinteros on 04-27-2024 Immature granulocytes/100 WBC (Bld) 0.400 % 0.0-0.9 [facility] Comment on above: IG% - Immature Granu locytes (promyelocytes, myelocytes and metamyelocytes) > 1% indicates that a LEFT SHIFT is Present. Lymphocytes Auto (Unsp spec) [#/Vol]Ordered By: Talia Quinteros on 04-27-2024 Lymphocytes (Bld) [#/Vol] 0.77 10*3/uL Low 0.83-4.51 [facility] Lymphocytes/100 WBC Auto (Un sp spec)Ordered By: Talia Quinteros on 04-27-2024 Lymphocytes/100 WBC (Bld) 11.0 % Low 19-41 [facility] MCV (mean corpuscular volume ) determinationOrdered By: Talia Quinteros on 04-27-2024 MCV (RBC) [Entitic vol] 89.2 fL 80-94 [facility] Mean corpuscular hemoglobin (MCH) determinationOrdered By: Talia Quinteros on 04-27-2024 MCH (RBC) [Entitic mass] 29.2 pg 27.0-32.0 [facility] Mean corpuscular hemoglobin concentration (MCHC) determinationOrdered By: Talia Quinteros on 04-27-2024 MCHC (RBC) [Mass/Vol] 32.7 g/dL 32-36 [facility] Mean platelet volume determi nationOrdered By: Talia Quinteros on 04-27-2024 Platelet mean volume (Bld) [Entitic vol] 10.6 fL 6.2-12.0 [facility] Monocyte percentageOrdered B y: Talia Quinteros on 04-27-2024 Monocytes/100 WBC (Bld) 10.5 % High 0-10 [facility] Neutrophil percentageOrdered By: Talia Quinteros on 04-27-2024 Neutrophils/100 WBC (Bld) 75.0 % High 47-70 [facility] Nucleated red blood cell per centageOrdered By: Talia Quinteros on 04-27-2024 Nucleated RBC/100 WBC (Bld) [Ratio] 0 % 0-5 [facility] Platelet countOrdered By: Ruth Quinteros on 04-27-2024 Platelets (Bld) [#/Vol] 260 10*3/uL 150-450 [facility] Potassium measurementOrdered By: Talia Quinteros on 04-27-2024 Potassium [Moles/Vol] 4.3 mmol/L 3.5-5.1 [facility] RBC Auto (Bld) [#/Vol]Ordere d By: Talia Quinteros on 04-27-2024 RBC (Bld) [#/Vol] 4.18 10*6/uL Low 4.6-6.2 [facility] Serum anion gap measurementO rdered By: Talia Quinteros on 04-27-2024 Anion gap [Moles/Vol] 5 mmol/L 5-15 [facility] Serum or plasma calcium kyleigh urement (mass/volume)Ordered By: Talia Quinteros on 12-13-2024 Calcium [Mass/Vol] 9.2 mg/dL 8.5-10.1 [facility] Serum or plasma creatinine m easurement (mass/volume)Ordered By: Talia Quinteros on 04-27-2024 Creatinine [Mass/Vol] 1.08 mg/dL 0.70-1.30 [facility] Comment on above: The validity of the calculated GFR & GFRAA in patients over 70 years has not been determined. Clinical correlation is essential. Serum or plasma urea nitroge n measurement (mass/volume)Ordered By: Talia Quinteros on 04-27-2024 Urea nitrogen [Mass/Vol] 20 mg/dL High 7-18 [facility] Sodium levelOrdered By: Grant Quinteros on 04-27-2024 Sodium [Moles/Vol] 140 mmol/L 136-145 [facility] White blood cell (WBC) count Ordered By: Talia Quinteros on 04-27-2024 WBC (Bld) [#/Vol] 7.0 10*3/uL 4.4-11.0 [facility] Echo Complete W/ Contraston 04-23-2024 Echo Complete W/ Contrast [facility] [address] [place] [address] Echo Complete W/ Contrast 04/23/24 0938 MR#: [id number] Acct: [id number] Name: JERMAINE BEGUM Rep #: [id number] : 1945 78 From: Junior Johnson MD Attending Dr: Dr. Junior Johnson MD Status: REG C Ordering Dr: Junior Johnson MD Date: 04/23/24 Location: [facility] Sex: M C Admitted: Reason For Study: DYSPNEA Procedure This was a 2D Doppler, Color Flow transthoracic echocardiogram. The study was technically difficult. Contrast injection was performed. Exam performed portable in patient room. Left Ventricle Normal LV size. Left ventricular systolic function is normal. The left ventricular ejection fraction is 60 %. No regional wall motion abnormalities noted. Right Ventricle Normal RV size. Normal systolic function. Atria The left atrium is mildly enlarged. The right atrium is mildly enlarged. Mitral Valve Normal mitral valve. Tricuspid Valve Normal tricuspid valve. Mild to moderate (1-2+) tricuspid valve insufficiency. Pulmonary artery systolic pressure is 50 mmHg. Mild pulmonary hypertension. Aortic Valve Trisinus/trileaflet aortic valve. Mild focal aortic valve calcification. Pulmonic Valve Normal pulmonic valve. Great Vessels Normal aortic root. The pulmonary artery is normal size. Inferior vena cava collapse with respiration. Pericardium/Pleural No pericardial effusion. Medication Diluted definity 2ml given slow IV push to enhance endocardial definition. MMode/2D Measurements Calculations LVIDd: 5.1 cm IVSd: 1.1 cm LVOT diam: 2.2 cm LVIDs: 3.1 cm LVPWd: 1.2 cm FS: 39.3 % LVOT area: 3.8 cm2 Ao root diam: 3.7 cm LAV(MOD-bp): 62.4 ml LVAd ap4: 30.3 cm2 LAV(MOD-bp) Indexed: 27.6 ml/m2 LVLd ap4: 8.3 cm LAV(MOD-sp2): 48.1 ml EDV(MOD-sp4): 91.2 ml LAV(MOD-sp4): 63.2 ml EDV(sp4-el): 93.2 ml LVAs ap4: 15.9 cm2 LVLs ap4: 6.2 cm ESV(MOD-sp4): 33.6 ml ESV(sp4-el): 34.2 ml EF(MOD-sp4): 63.1 % EF(sp4-el): 63.3 % SV(MOD-sp4): 57.6 ml SV(sp4-el): 59.0 ml LA A4 area: 22.2 cm2 SI(MOD-sp4): 25.4 ml/m2 LA dimension(2D): 4.6 cm RA A4 area: 23.9 cm2 Time Measurements MV dec time: 0.22 sec Doppler Measurements Calculations MV E max lucian: 86.4 cm/sec Lat Peak E' Lucian: 12.4 cm/sec Med Peak E' Lucian: 7.4 cm/sec MV A max lucian: 30.8 cm/sec E/E' lat: 6.9 E/E' med: 11.7 MV E/A: 2.8 MV V2 max: 93.6 cm/sec MV dec slope: 390.4 cm/sec2 Ao V2 max: 104.5 cm/sec MV max P.5 mmHg Ao max P.4 mmHg MV V2 mean: 47.3 cm/sec Ao V2 mean: 72.1 cm/sec MV mean P.1 mmHg Ao mean P.4 mmHg MV V2 VTI: 27.9 cm Ao V2 VTI: 26.4 cm MVA(VTI): 2.8 cm2 AV (velocity ratio): 0.78 RAJ(I,D): 3.0 cm2 RAJ(V,D): 2.9 cm2 LV V1 max: 81.0 cm/sec SV(LVOT): 77.8 ml PA V2 max: 117.2 cm/sec LV V1 max P.6 mmHg PA V2 mean: 71.8 cm/sec LV V1 mean P.4 mmHg LV V1 mean: 55.3 cm/sec LV V1 VTI: 20.5 cm PI end-d lucian: 104.9 cm/sec TR max lucian: 335.6 cm/sec TR max P.1 mmHg ECHO/Echo Complete W/ Contrast Interpretation Summary Normal LV size. Left ventricular systolic function is normal. The left ventricular ejection fraction is 60 %. No regional wall motion abnormalities noted. Pulmonary artery systolic pressure is 50 mmHg. Mild pulmonary hypertension. Contrast injection was performed. Ordering Physician: Junior Johnson Referring Physician: Junior Johnson Performed By: Nayeli Serrano RCS 04/23/24 1326 Date Junior Johnson MD CC: Dr. Yecenia Agrawal MD; Dr. Junior Johnson MD Date Dictated: 04/23/2438 Date Transcribed: 04/23/24 132 Soaping Machine Back Tender: Signed Normal [facility] Stress Reporton 04-23-2024 Stress Report [facility] Cardi[facility] Services [address] [place] [address] MR#: [id number] Acct: [id number] Name: JERMAINE BEGUM Rep #: [id number] : 1945 78 From: Junior Johnson MD Primary Care: Dr. Yecenia Agrawal MD Status: REG CLI Referring Dr: Junior Johnson MD Sex: M C Stress Test Report Exercise myocardial perfusion stress test. 78-year-old male with a history of coronary bypass surgery Stress protocol: Resting EKG demonstrates sinus bradycardia with a rate of 58 bpm resting blood pressure is [132/70] mmHg. incomplete right bundle branch block is noted. The patient exercised according to the regular Aldo protocol for a total duration of 4 minutes attaining a maximum heart rate of 122 bpm which was 86% of maximum predicted heart rate; the maximum workload was 7 metabolic equivalents. At rest there were no ST or T wave changes noted to suggest ischemia and at peak exercise upsloping ST changes only were noted which did not meet the criteria for ischemia. No clinical angina was noted the test was terminated due to the target heart rate being achieved/fatigue. The peak blood pressure was 210/70 mmHg. Rate-pressure product was 13,900. Myocardial perfusion protocol. 14.1 mCi of technetium 99m sestamibi was injected at rest. The patient exercised according to regular Aldo protocol for total duration of 4 minutes and at peak exercise 44.3 mCi of technetium 99m sestamibi was injected stress images were obtained stress and rest images were reconstructed in comparing the short axis vertical long and horizontal long axis. Gated images were also obtained. Perfusion SPECT analysis: Review of the stress images demonstrate normal uptake of tracer noted in all areas of the myocardium except for the basal to mid anterior wall with reduced perfusion. The resting images similarly demonstrate normal uptake of tracer noted in all areas of the myocardium. The above is suggestive of basal to mid anterior ischemia. Gated SPECT analysis: The gated ejection fraction is 76%. Conclusion: Abnormal exercise myocardial perfusion stress test at a moderate workload with basal to mid anterior ischemia Preserved ejection fraction. Reduced functional capacity 04/23/24 1637 Date Junior Johnson MD CC: Dr. Yecenia Agrawal MD; Dr. Junior Johnson MD Date Dictated: 04/23/241633 Date Transcribed: 04/23/241633 Soaping Machine Back Tender: [place] Signed Normal [facility] Cardiology Visit Reporton Cardiology Visit Report [facility] [address] [place] [address] OFFICE VISIT Date of Service: 03/27/24 MR#: [id number] Acct: [id number] Name: JERMAINE BEGUM Rep #: [id number] : 1945 Provider: Dr. Junior Johnson MD Age/Sex: 78/M Location: [facility] Status: Signed HPI HPI History of Present Illness Details: JERMAINE BEGUM, is a 78 M who presents for a follow-up visit. He is a gentleman with a history of hypertension, hyperlipidemia, coronary artery disease status post bare-metal stenting in February 2007 of the proximal circumflex artery. He had been doing well in the interim until October 2014 when he presented with chest discomfort he underwent a cardiac catheterization which demonstrated restenosis of the circumflex artery. He had a drug-eluting stent placed to this vessel. His left anterior descending artery demonstrated less than 50% stenosis in the right coronary artery demonstrated less than 50% stenosis. In August 2020, he was noted to be in atrial fibrillation and was started on anticoagulation and at that time had a negative stress test for ischemia and a Holter monitor demonstrated persistent atrial fibrillation for which he underwent successful DC cardioversion in September of the same year. While he was in [place] in June 2021, he experienced some sharp chest discomfort which went on for approximately 3 days.??? He was evaluated and discharged with a negative EKG and troponin. As part of his work-up for prostate carcinoma surgery, he underwent a stress test on 08/20/2021. This was considered to be abnormal. He proceeded with a heart catheterization on 08/21/2021 with [facility] that showed severe obstructive multivessel coronary artery disease. He proceeded with CABG x3 with MANTILLA to LAD, SVG to OM1, and SVG PDA on 09/30/[address] Riley. This also comprised of a biatrial Maze procedure (RF with cryo), and SUSHMA appendage clip (35 mm). Postoperatively he was noted to have junctional bradycardia. His anticoagulation and beta-scottie were discontinued upon discharge. He contacted our office expressing concerns regarding dizziness. He proceeded with a Holter monitor on 10/14/2021 that showed normal sinus rhythm with right bundle branch block and atrial fibrillation at 12.9% of total scan. Average heart rate was noted to be 85 bpm. His longest R to R interval was 6 seconds when he convert from atrial fibrillation. He was seen by [facility], Dr. Shree Ochoa, on 11/12/2021 with the plan to continue to observe. He denies chest, arm, jaw, or neck discomfort. He continues with shortness of breath with exertion when walking fast that improves with rest. He denies shortness of breath at rest, orthopnea, PND, sudden weight gain, or bilateral lower extremity edema. He denies chronic cough. He denies palpitations, lightheadedness, dizziness, near syncope, or syncopal episodes. He denies claudication issues. He denies fever or chills. He denies blood in urine, blood in stool, or epistaxis. He denies myalgia. He says that he has had some tingling in his hands and he also feels quite fatigued after walking. He really cannot walk much on an incline. He denies any chest pain whatsoever. Intake Vital Signs 01/31/23 09:54 09/15/23 15:05 03/27/24 11:14 Height 6 ft 1 in 6 ft 1 in 6 ft 1 in Weight: 237 lb BMI 31.2 BP 121/74 H Blood Pressure Location Lt brachial Position Sitting Respiration 16 Pulse 59 L Pulse Source Monitor Intake Visit Reasons: 1 Y FU Canvas Cutter Required: No Accompanied by: Self Is patient in pain?: No Allergies No Known Allergies Allergy (Verified 03/27/24 11:16) Medications ???Medication ???Instructions ???Recorded ???Confirmed ???Type aspirin 81 mg tablet,delayed 81 mg PO DAILY 10/14/21 03/27/24 History release (Adult Aspirin Regimen) spironolactone 25 mg tablet 25 mg PO QPM #90 tabs 06/08/23 03/27/24 Rx atorvastatin 80 mg tablet 80 mg PO QHS #90 tabs 11/09/23 03/27/24 Rx benazepril 40 mg tablet 40 mg PO DAILY #90 tabs 03/05/24 03/27/24 Rx ferrous sulfate 137 mg (45 mg 137 mg PO QDAY 03/27/24 03/27/24 History iron) tablet,extended release mecobalamin (vitamin B12) 500 mcg 500 mcg PO DAILY 03/27/24 03/27/24 History chewable tablet Have you fallen in the past year?: No PFSH Medical History Prostate cancer Dilated aortic root Incomplete right bundle branch block Internal hemorrhoid Gout Type 2 diabetes mellitus Osteoarthritis Palmar fascial fibromatosis [dupuytren] Atherosclerosis of coronary artery of [place] heart without angina pectoris Essential hypertension History of diverticulosis Hyperlipidemia Surgical History History of radical prostat (more content not included)... Normal [facility] Ironon 02-16-2024 Iron [Mass/Vol] 94 ug/dL Normal 65-175 [facility] Comment on above: Order Comment: Order Date: 02/14/24 Order Info: [id number] - PSAD Order Info: 2498 - FE Performed By: #### L 501.9940, L503.6150, L503.0105 #### [facility] [address] [place], [place], [address] PSA,Total- Diagnosticon 10 PSA, DIAGNOSTIC 0.11 ng/mL Normal 0.0-4.0 [facility] Comment on above: Order Comment: Order Date: 02/14/24 Order Info: [id number] - PSAD Order Info: 2498- - FE Result Comment: This test was performed using the TPSA assay method for the OrbFlex chemistry system. Values obtained with different assay methods cannot be used interchangably. When changing PSA assays in the course of monitoring a patient, additional sequential testing should be carried out to confirm baseline values. Performed By: #### L 501.9940, L503.6150, L503.0105 #### [facility] [address] [place], [address] Vitamin B12on 02-16-2024 Cobalamin (Vitamin B12) [Mass/Vol] 576 pg/mL Normal 211-911 [facility] Comment on above: Order Comment: Order Date: 02/14/24 Order Info: [id number] - B12 Performed By: #### L 501.9940, L503.6150, L503.0105 #### [facility] [address] [place], [address] CBC W/Diff, Automatedon 10-14 Absolute Lymph 0.67 X10 3/uL Low 0.83-4.51 [facility] Comment on above: Order Comment: Order Date: 10/28/23Order Info: [id number] - CBCD Performed By: #### L 100.0100, L500.4100, L501.5200, L501.9910, L501.9520, L500.4050, L501.9985 ####[facility] [address] [place], [address] Absolute Neut 4.0 X10 3/uL Normal 2.0-7.7 [facility] Comment on above: Order Comment: Order Date: 10/28/23Order Info: 0184-1 - CBCD Performed By: #### L 100.0100, L500.4100, L501.5200, L501.9910, L501.9520, L500.4050, L501.9985 ####[facility] [address] [place], [address] Basophils/100 WBC (Bld) 0.6 % Normal 0-1 [facility] Comment on above: Order Comment: Order Date: 10/28/23Order Info: 0184-1 - CBCD Performed By: #### L 100.0100, L500.4100, L501.5200, L501.9910, L501.9520, L500.4050, L501.9985 ####[facility] [address] [place], [address] Eosinophils/100 WBC (Bld) 2.6 % Normal 0-5 [facility] Comment on above: Order Comment: Order Date: 10/28/23Order Info: 0184-1 - CBCD Performed By: #### L 100.0100, L500.4100, L501.5200, L501.9910, L501.9520, L500.4050, L501.9985 ####[facility] [address] [place], [address] Erythrocyte distribution width (RBC) [Ratio] 13.7 % Normal 11.6-14.6 [facility] Comment on above: Order Comment: Order Date: 10/28/23Order Info: 018-1 - CBCD Performed By: #### L 100.0100, L500.4100, L501.5200, L501.9910, L501.9520, L500.4050, L501.9985 ####[facility] [address] [place], [address] Hematocrit (Bld) [Volume fraction] 39.8 % Low 40-54 [facility] Comment on above: Order Comment: Order Date: 10/28/23Order Info: 0184-1 - CBCD Performed By: #### L 100.0100, L500.4100, L501.5200, L501.9910, L501.9520, L500.4050, L501.9985 ####[facility] [address] [place], [address] Hemoglobin (Bld) [Mass/Vol] 12.5 g/dL Low 13.0-16.5 [facility] Comment on above: Order Comment: Order Date: 10/28/23Order Info: 0184-1 - CBCD Performed By: #### L 100.0100, L500.4100, L501.5200, L501.9910, L501.9520, L500.4050, L501.9985 ####[facility] [address] [place], [address] IG% 0.200 Normal 0.0-0.9 [facility] Comment on above: Order Comment: Order Date: 10/28/23Order Info: [id number] - CBCD Result Comment: IG% - Immature Granulocytes (promyelocytes, myelocytes and metamyelocytes) > 1% indicates that a LEFT SHIFT is Present. Performed By: #### L 100.0100, L500.4100, L501.5200, L501.9910, L501.9520, L500.4050, L501.9985 ####[facility] [address] [place] [place], [address] Lymphocytes/100 WBC (Bld) 12.4 % Low 19-41 [facility] Comment on above: Order Comment: Order Date: 10/28/23Order Info: 0184-1 - CBCD Performed By: #### L 100.0100, L500.4100, L501.5200, L501.9910, L501.9520, L500.4050, L501.9985 ####[facility] [address] [place] [place], [address] MCH (RBC) [Entitic mass] 28.5 pg Normal 27.0-32.0 [facility] Comment on above: Order Comment: Order Date: 10/28/23Order Info: 0184-1 - CBCD Performed By: #### L 100.0100, L500.4100, L501.5200, L501.9910, L501.9520, L500.4050, L501.9985 ####[facility] [address] [facility] [place], [address] MCHC (RBC) [Mass/Vol] 31.4 g/dL Low 32-36 [facility] Comment on above: Order Comment: Order Date: 10/28/23Order Info: 0184-1 - CBCD Performed By: #### L 100.0100, L500.4100, L501.5200, L501.9910, L501.9520, L500.4050, L501.9985 ####[facility] [address] [place], [address] MCV (RBC) [Entitic vol] 90.9 fL Normal 80-94 [facility] Comment on above: Order Comment: Order Date: 10/28/23Order Info: 018- - CBCD Performed By: #### L 100.0100, L500.4100, L501.5200, L501.9910, L501.9520, L500.4050, L501.9985 ####[facility] [address] [place], [address] Monocytes/100 WBC (Bld) 10.0 % Normal 0-10 [facility] Comment on above: Order Comment: Order Date: 10/28/23Order Info: 0184- - CBCD Performed By: #### L 100.0100, L500.4100, L501.5200, L501.9910, L501.9520, L500.4050, L501.9985 ####[facility] [address] [facility] [place], [address] Neutrophils/100 WBC (Bld) 74.2 % High 47-70 [facility] Comment on above: Order Comment: Order Date: 10/28/23Order Info: 0184- - CBCD Performed By: #### L 100.0100, L500.4100, L501.5200, L501.9910, L501.9520, L500.4050, L501.9985 ####[facility] [address] [place], [address] Nucleated RBC (Bld) [#/Vol] 0 10*3/uL Normal 0-5 [facility] Comment on above: Order Comment: Order Date: 10/28/23Order Info: 018-1 - CBCD Performed By: #### L 100.0100, L500.4100, L501.5200, L501.9910, L501.9520, L500.4050, L501.9985 ####[facility] [address] [place], [address] Platelet mean volume (Bld) [Entitic vol] 10.1 fL Normal 6.2-12.0 [facility] Comment on above: Order Comment: Order Date: 10/28/23Order Info: 018- - CBCD Performed By: #### L 100.0100, L500.4100, L501.5200, L501.9910, L501.9520, L500.4050, L501.9985 ####[facility] [address] [place], [address] Platelets (Bld) [#/Vol] 238 10*3/uL Normal 150-450 [facility] Comment on above: Order Comment: Order Date: 10/28/23Order Info: 018- - CBCD Performed By: #### L 100.0100, L500.4100, L501.5200, L501.9910, L501.9520, L500.4050, L501.9985 ####[facility] [address] [place], [address] RBC (Bld) [#/Vol] 4.38 10*6/uL Low 4.6-6.2 [facility] Comment on above: Order Comment: Order Date: 10/28/23Order Info: 018- - CBCD Performed By: #### L 100.0100, L500.4100, L501.5200, L501.9910, L501.9520, L500.4050, L501.9985 ####[facility] [address] [place], [address] RDW SD 46.2 fl High 35.1-43.9 [facility] Comment on above: Order Comment: Order Date: 10/28/23Order Info: [id number] - CBCD Performed By: #### L 100.0100, L500.4100, L501.5200, L501.9910, L501.9520, L500.4050, L501.9985 ####[facility] [address] [place], [address] WBC (Bld) [#/Vol] 5.4 10*3/uL Normal 4.4-11.0 [facility] Comment on above: Order Comment: Order Date: 10/28/23Order Info: 018- - CBCD Performed By: #### L 100.0100, L500.4100, L501.5200, L501.9910, L501.9520, L500.4050, L501.9985 ####[facility] [address] [place], [place], [address] Comprehensive Metabolic Prof [facility] 10-29-2023 Albumin [Mass/Vol] 3.8 g/dL Normal 3.2-5.0 [facility] Comment on above: Order Comment: Order Date: 10/28/23Order Info: [id number] - CMPOrder Info: [id number] - LIPIDOrder Info: [id number] - MGOrder Info: 6-3 - TSHOrder Info: [id number] - PSA Performed By: #### L 100.0100, L500.4100, L501.5200, L501.9910, L501.9520, L500.4050, L501.9985 ####[facility] [address] [place], [place], [address] Albumin/Globulin [Mass ratio] 1.2 {ratio} Normal 0.9-2.4 [facility] Comment on above: Order Comment: Order Date: 10/28/23Order Info: [id number] - CMPOrder Info: [id number] - LIPIDOrder Info: [id number] - MGOrder Info: [id number] - TSHOrder Info: [id number] - PSA Performed By: #### L 100.0100, L500.4100, L501.5200, L501.9910, L501.9520, L500.4050, L501.9985 ####[facility] [address] [place], [address] ALK P 119 U/L High 45-117 [facility] Comment on above: Order Comment: Order Date: 10/28/23Order Info: [id number] - CMPOrder Info: [id number] - LIPIDOrder Info: [id number] - MGOrder Info: [id number] - TSHOrder Info: [id number] - PSA Performed By: #### L 100.0100, L500.4100, L501.5200, L501.9910, L501.9520, L500.4050, L501.9985 ####[facility] [address] [place], [place], [phone] ALT [Catalytic activity/Vol] 35 U/L Normal 16-61 [facility] Comment on above: Order Comment: Order Date: 10/28/23Order Info: [id number] - CMPOrder Info: [id number] - LIPIDOrder Info: [id number] - MGOrder Info: [id number] - TSHOrder Info: [id number] - PSA Performed By: #### L 100.0100, L500.4100, L501.5200, L501.9910, L501.9520, L500.4050, L501.9985 ####[facility] [address] [place], [place], [address] AST [Catalytic activity/Vol] 28 U/L Normal 15-37 [facility] Comment on above: Order Comment: Order Date: 10/28/23Order Info: [id number] - CMPOrder Info: [id number] - LIPIDOrder Info: [id number] - MGOrder Info: [id number] - TSHOrder Info: [id number] - PSA Performed By: #### L 100.0100, L500.4100, L501.5200, L501.9910, L501.9520, L500.4050, L501.9985 ####[facility] [address] [place], [place], [phone] Bilirubin [Mass/Vol] 0.90 mg/dL Normal 0.20-1.00 [facility] Comment on above: Order Comment: Order Date: 10/28/23Order Info: 86-1 - CMPOrder Info: [id number] - LIPIDOrder Info: [id number] - MGOrder Info: 3 - TSHOrder Info: [id number] - PSA Result Comment: For patients on eltrombopag therapy, use of Dimension Equality TBIL is not recommended. Performed By: #### L 100.0100, L500.4100, L501.5200, L501.9910, L501.9520, L500.4050, L501.9985 ####[facility] [address] [place], [place], [phone] BUN/CRE 17.8 RATIO Normal 10-20 [facility] Comment on above: Order Comment: Order Date: 10/28/23Order Info: 785- - CMPOrder Info: - LIPIDOrder Info: [id number] - MGOrder Info: [id number] - TSHOrder Info: [id number] - PSA Performed By: #### L 100.0100, L500.4100, L501.5200, L501.9910, L501.9520, L500.4050, L501.9985 ####[facility] [address] [place], [place], [phone] CA,Total 9.3 mg/dL Normal 8.5-10.1 [facility] Comment on above: Order Comment: Order Date: 10/28/23Order Info: 86-1 - CMPOrder Info: [id number] - LIPIDOrder Info: [id number] - MGOrder Info: 3 - TSHOrder Info: [id number] - PSA Performed By: #### L 100.0100, L500.4100, L501.5200, L501.9910, L501.9520, L500.4050, L501.9985 ####[facility] [address] [place], [address] Chloride [Moles/Vol] 108 mmol/L High 98-107 [facility] Comment on above: Order Comment: Order Date: 10/28/23Order Info: [id number] - CMPOrder Info: [id number] - LIPIDOrder Info: [id number] - MGOrder Info: [id number] - TSHOrder Info: [id number] - PSA Performed By: #### L 100.0100, L500.4100, L501.5200, L501.9910, L501.9520, L500.4050, L501.9985 ####[facility] [address] [place], [address] CO2 [Moles/Vol] 26.0 mmol/L Normal 21.0-32.0 [facility] Comment on above: Order Comment: Order Date: 10/28/23Order Info: 785-1 - CMPOrder Info: [id number] - LIPIDOrder Info: [id number] - MGOrder Info: 3 - TSHOrder Info: [id number] - PSA Performed By: #### L 100.0100, L500.4100, L501.5200, L501.9910, L501.9520, L500.4050, L501.9985 ####[facility] [address] [place], [address] Creatinine [Mass/Vol] 1.01 mg/dL Normal 0.70-1.30 [facility] Comment on above: Order Comment: Order Date: 10/28/23Order Info: 86-1 - CMPOrder Info: [id number] - LIPIDOrder Info: [id number] - MGOrder Info: 63 - TSHOrder Info: [id number] - PSA Result Comment: The validity of the calculated GFR GFRAA in patients over 70 years has not been determined. Clinical correlation is essential. Performed By: #### L 100.0100, L500.4100, L501.5200, L501.9910, L501.9520, L500.4050, L501.9985 ####[facility] [address] [place], [place], [address] EST GFR - AA 92 mL/min Normal >60 [facility] Comment on above: Order Comment: Order Date: 10/28/23Order Info: [id number] - CMPOrder Info: [id number] - LIPIDOrder Info: [id number] - MGOrder Info: [id number] - TSHOrder Info: [id number] - PSA Result Comment: Afri can Venezuelan GFR Calc Performed By: #### L 100.0100, L500.4100, L501.5200, L501.9910, L501.9520, L500.4050, L501.9985 ####[facility] [address] [place], [place], [phone] GAP 5 Normal 5-15 [facility] Comment on above: Order Comment: Order Date: 10/28/23Order Info: 86-1 - CMPOrder Info: [id number] - LIPIDOrder Info: [id number] - MGOrder Info: [id number] - TSHOrder Info: [id number] - PSA Performed By: #### L 100.0100, L500.4100, L501.5200, L501.9910, L501.9520, L500.4050, L501.9985 ####[facility] [address] [place], [place], [phone] GFR/1.73 sq M.predicted among non-blacks MDRD (S/P/Bld) [Vol rate/Area] 76 mL/min/{1.73_m2} Normal >60 [facility] Comment on above: Order Comment: Order Date: 10/28/23Order Info: [id number] - CMPOrder Info: [id number] - LIPIDOrder Info: [id number] - MGOrder Info: [id number] - TSHOrder Info: [id number] - PSA Result Comment: Non- GFR Calc Performed By: #### L 100.0100, L500.4100, L501.5200, L501.9910, L501.9520, L500.4050, L501.9985 ####[facility] [address] [place], [address] Globulin (S) [Mass/Vol] 3.2 g/dL Normal 2.2-4.2 [facility] Comment on above: Order Comment: Order Date: 10/28/23Order Info: [id number] - CMPOrder Info: [id number] - LIPIDOrder Info: [id number] - MGOrder Info: 3 - TSHOrder Info: [id number] - PSA Performed By: #### L 100.0100, L500.4100, L501.5200, L501.9910, L501.9520, L500.4050, L501.9985 ####[facility] [address] [place], [address] Glucose [Mass/Vol] 145 mg/dL High 74-106 [facility] Comment on above: Order Comment: Order Date: 10/28/23Order Info: [id number] - CMPOrder Info: - LIPIDOrder Info: [id number] - MGOrder Info: [id number] - TSHOrder Info: [id number] - PSA Result Comment: Fast ing Glucose result greater than or equal to 126 mg/dL suggests DIABETES MELLITUS per A.D.A. criteria. Performed By: #### L 100.0100, L500.4100, L501.5200, L501.9910, L501.9520, L500.4050, L501.9985 ####[facility] [address] [place], [place], [phone] Potassium [Moles/Vol] 4.1 mmol/L Normal 3.5-5.1 [facility] Comment on above: Order Comment: Order Date: 10/28/23Order Info: 785- - CMPOrder Info: [id number] - LIPIDOrder Info: [id number] - MGOrder Info: [id number] - TSHOrder Info: [id number] - PSA Performed By: #### L 100.0100, L500.4100, L501.5200, L501.9910, L501.9520, L500.4050, L501.9985 ####[facility] [address] [place], [address] Sodium [Moles/Vol] 139 mmol/L Normal 136-145 [facility] Comment on above: Order Comment: Order Date: 10/28/23Order Info: 86-1 - CMPOrder Info: [id number] - LIPIDOrder Info: [id number] - MGOrder Info: 3 - TSHOrder Info: [id number] - PSA Performed By: #### L 100.0100, L500.4100, L501.5200, L501.9910, L501.9520, L500.4050, L501.9985 ####[facility] [address] [place], [address] T PROT 7.0 g/dL Normal 6.4-8.2 [facility] Comment on above: Order Comment: Order Date: 10/28/23Order Info: [id number] - CMPOrder Info: [id number] - LIPIDOrder Info: [id number] - MGOrder Info: 63 - TSHOrder Info: [id number] - PSA Performed By: #### L 100.0100, L500.4100, L501.5200, L501.9910, L501.9520, L500.4050, L501.9985 ####[facility] [address] [place], [address] Urea nitrogen [Mass/Vol] 18 mg/dL Normal 7-18 [facility] Comment on above: Order Comment: Order Date: 10/28/23Order Info: 86-1 - CMPOrder Info: [id number] - LIPIDOrder Info: [id number] - MGOrder Info: [id number] - TSHOrder Info: [id number] - PSA Performed By: #### L 100.0100, L500.4100, L501.5200, L501.9910, L501.9520, L500.4050, L501.9985 ####[facility] [address] [place], [place], [address] Hemoglobin A1con 10-29-2023 HbA1c (Bld) [Mass fraction] 6.7 % High 3.8-5.6 [facility] Comment on above: Order Comment: Order Date: 10/28/23Order Info: [id number] - A1C Result Comment: Norm al < 5.7 % Prediabetic 5.7 - 6.4 % Diabetic >or= 6.5 % Please note range changes. Performed By: #### L 100.0100, L500.4100, L501.5200, L501.9910, L501.9520, L500.4050, L501.9985 ####[facility] [address] [place], [place], [address] Lipid Profileon 10-29-2023 Cholesterol [Mass/Vol] 125 mg/dL Normal 200 [facility] Comment on above: Order Comment: Order Date: 10/28/23Order Info: [id number] - CMPOrder Info: [id number] - LIPIDOrder Info: [id number] - MGOrder Info: 6-3 - TSHOrder Info: [id number] - PSA Result Comment: <200 mg/dL Desirable 200-240 mg/dL Borderline >240 mg/dL High Risk Performed By: #### L 100.0100, L500.4100, L501.5200, L501.9910, L501.9520, L500.4050, L501.9985 ####[facility] [address] [place], [place], [phone] Cholesterol in HDL [Mass/Vol] 37 mg/dL Low [facility] Comment on above: Order Comment: Order Date: 10/28/23Order Info: [id number] - CMPOrder Info: [id number] - LIPIDOrder Info: [id number] - MGOrder Info: [id number] - TSHOrder Info: [id number] - PSA Result Comment: The drugs N-Acetylcysteine and Metamizole may falsely depress this assay. Reference Range HDL <40 mg/dL Low HDL Cholesterol HDL >or= 60 mg/dL High HDL Cholesterol Performed By: #### L 100.0100, L500.4100, L501.5200, L501.9910, L501.9520, L500.4050, L501.9985 ####[facility] [address] [place], [address] Cholesterol in LDL [Mass/Vol] 66 mg/dL Normal 0-130 [facility] Comment on above: Order Comment: Order Date: 10/28/23Order Info: 86-1 - CMPOrder Info: [id number] - LIPIDOrder Info: [id number] - MGOrder Info: [id number] - TSHOrder Info: [id number] - PSA Performed By: #### L 100.0100, L500.4100, L501.5200, L501.9910, L501.9520, L500.4050, L501.9985 ####[facility] [address] [place], [address] Cholesterol in VLDL [Mass/Vol] 22 mg/dL Normal 5-40 [facility] Comment on above: Order Comment: Order Date: 10/28/23Order Info: 86-1 - CMPOrder Info: [id number] - LIPIDOrder Info: [id number] - MGOrder Info: 3 - TSHOrder Info: 7-1 - PSA Performed By: #### L 100.0100, L500.4100, L501.5200, L501.9910, L501.9520, L500.4050, L501.9985 ####[facility] [address] [place], [address] Triglyceride [Mass/Vol] 110 mg/dL Normal [facility] Comment on above: Order Comment: Order Date: 10/28/23Order Info: 86-1 - CMPOrder Info: [id number] - LIPIDOrder Info: [id number] - MGOrder Info: 6-3 - TSHOrder Info: [id number] - PSA Result Comment: The drugs N-Acetylcysteine and Metamizole may falsely depress this assay. Serum Triglycerides Reference Interval Normal <150 mg/dL Borderline high 150 - 199 mg/dL High 200 - 499 mg/dL Very High > or = 500 mg/dL Performed By: #### L 100.0100, L500.4100, L501.5200, L501.9910, L501.9520, L500.4050, L501.9985 ####[facility] [address] [place], [place], [address] Magnesiumon 10-29-2023 Magnesium [Mass/Vol] 1.7 mg/dL Normal 1.6-2.6 [facility] Comment on above: Order Comment: Order Date: 10/28/23Order Info: [id number] - CMPOrder Info: [id number] - LIPIDOrder Info: [id number] - MGOrder Info: 3 - TSHOrder Info: [id number] - PSA Performed By: #### L 100.0100, L500.4100, L501.5200, L501.9910, L501.9520, L500.4050, L501.9985 ####[facility] [address] [place], [place], [address] PSA,Total - Annual Screenon 10-29-2023 PSA,TOT SCREEN 0.05 ng/mL Normal 0.00-4.00 [facility] Comment on above: Order Comment: Order Date: 10/28/23Order Info: [id number] - CMPOrder Info: [id number] - LIPIDOrder Info: [id number] - MGOrder Info: 6-3 - TSHOrder Info: [id number] - PSA Result Comment: This test was performed using the TPSA assay method for the OrbFlex chemistry system. Values obtained with different assay methods cannot be used interchangably. When changing PSA assays in the course of monitoring a patient, additional sequential testing should be carried out to confirm baseline values. Performed By: #### L 100.0100, L500.4100, L501.5200, L501.9910, L501.9520, L500.4050, L501.9985 ####[facility] [address] [place], [address] Thyroid Stim Hormone (TSH)on 10-29-2023 TSH 1.55 uIU/mL Normal 0.358-3.74 [facility] Comment on above: Order Comment: Order Date: 10/28/23Order Info: [id number] - CMPOrder Info: [id number] - LIPIDOrder Info: [id number] - MGOrder Info: [id number] - TSHOrder Info: [id number] - PSA Performed By: #### L 100.0100, L500.4100, L501.5200, L501.9910, L501.9520, L500.4050, L501.9985 ####[facility] [address] [place], [address] [facility] 10-20-2023 [facility] JERMAINE BEGUM ([id number]) 1945 [facility] Date Time Provider Department 10/20/23 [facility] During your visit today, we recorded the following information about you: Faith Hurst, RN 10/20/2023 11:39 AM Signed Pt called in asking for Magnesium results. Let him know 10/02/21 he was 2.1 and 1.7 and 09/30/21 he was 1.9. Allergies As of Date: 10/20/2023 (No Known Allergies) Date Reviewed: 05/24/2023 Reviewed by: Precious Deleon MA - Fully Assessed Reason for Visit: Results [95] Prescriptions as of 10/20/2023 - spironolactone (ALDACTONE) 25 mg tablet Take 1 tablet by mouth once daily. - benazepril 40 mg tablet Take 1 tablet by mouth once daily. - atorvastatin (LIPITOR) 80 mg tablet Take 1 tablet by mouth daily at bedtime. - aspirin, enteric coated (ASPIRIN, ENTERIC COATED) 81 mg EC tablet Take 81 mg by mouth once daily. Facility-Administered Medications as of 10/20/2023 - leuprolide 30 mg injection (ELIGARD) Meds Comments as of 03/26/2016: Problem List As Of Date 10/20/2023 Noted Resolved Mixed hyperlipidemia [E78.2] 02/02/2005 Essential hypertension, benign [I10] 02/02/2005 LOC OSTEOARTH NOS-SHLDER [M19.019] 02/02/2005 GOUT NOS [M10.9] 02/28/2007 Coronary artery disease involving pilot point franz* Medication Side Effects [T88.7XXA] 01/09/2010 BPH w urinary obs/LUTS [N40.1, N13.8] 06/08/2010 Elevated PSA [R97.20] 07/06/2010 Gynecomastia [N62] 12/23/2011 Allergic rhinitis [J30.9] 10/02/2012 Controlled type 2 diabetes mellitus without com*11/10/2017 Elevated prostate specific antigen (PSA) [R97.2*04/24/2021 Prostate cancer (HCC) [C61] 07/10/2021 Abnormal stress test [R94.39] 08/27/2021 Coronary artery disease involving pilot point franz*08/27/2021 09/30/2021 Presence of drug coated stent in left circumfle*08/27/2021 Hyperlipidemia LDL goal <70 [E78.5] 08/27/2021 Hypertension goal BP (blood pressure) < 140/80 *08/27/2021 Spinal stenosis of lumbar region without neurog*09/28/2021 Discharge planning issues [Z75.8] 09/29/2021 Paroxysmal atrial fibrillation (HCC) [I48.0] 09/30/2021 Coronary artery disease due to calcified franz*09/30/2021 10/05/2021 Atelectasis [J98.11] 09/30/2021 10/04/2021 Hypovolemia [E86.1] 09/30/2021 10/04/2021 Pain, postoperative, acute [G89.18] 09/30/2021 10/04/2021 Junctional bradycardia [R00.1] 09/30/2021 10/03/2021 Hypervolemia [E87.70] 10/01/2021 10/04/2021 VAISHNAVI (acute kidney injury) (HCC) [N17.9] 10/01/2021 Encounter for support and coordination of trans*10/04/2021 Nicotine use disorder, F17.2 [F17.200] 10/05/2021 RICARDO (stress urinary incontinence), male [N39.3] 06/04/2022 Muscle weakness [M62.81] 06/04/2022 Chronic bronchitis, unspecified chronic bronchi*09/21/2022 05/24/2023 Dilated aortic root (HCC) [I77.810] 05/24/2023 Encounter Status:Closed by FAITH HURST on 10/20/23 Normal [facility] Cardiology Visit Reporton Cardiology Visit Report [facility] [place] [id number] [facility] [place] [address] OFFICE VISIT Date of Service: 09/15/23 MR#: [id number] Acct: [id number] Name: JERMAINE BEGUM Rep #: [id number] : 1945 Provider: DEVANTE adam Age/Sex: 78/M Location: [facility] Status: Signed [facility] History of Present Illness Details: JERMAINE BEGUM, is a 78 M who presents for a follow-up visit. He is a gentleman with a history of hypertension, hyperlipidemia, coronary artery disease status post bare-metal stenting in February 2007 of the proximal circumflex artery. He had been doing well in the interim until October 2014 when he presented with chest discomfort he underwent a cardiac catheterization which demonstrated restenosis of the circumflex artery. He had a drug-eluting stent placed to this vessel. His left anterior descending artery demonstrated less than 50% stenosis in the right coronary artery demonstrated less than 50% stenosis. In August 2020, he was noted to be in atrial fibrillation and was started on anticoagulation and at that time had a negative stress test for ischemia and a Holter monitor demonstrated persistent atrial fibrillation for which he underwent successful DC cardioversion in September of the same year. While he was in [place] in June 2021, he experienced some sharp chest discomfort which went on for approximately 3 days.??? He was evaluated and discharged with a negative EKG and troponin. As part of his work-up for prostate carcinoma surgery, he underwent a stress test on 08/20/2021. This was considered to be abnormal. He proceeded with a heart catheterization on 08/21/2021 with [facility] that showed severe obstructive multivessel coronary artery disease. He proceeded with CABG x3 with MANTILLA to LAD, SVG to OM1, and SVG PDA on 09/30/[address] Riley. This also comprised of a biatrial Maze procedure (RF with cryo), and SUSHMA appendage clip (35 mm). Postoperatively he was noted to have junctional bradycardia. His anticoagulation and beta-scottie were discontinued upon discharge. He contacted our office expressing concerns regarding dizziness. He proceeded with a Holter monitor on 10/14/2021 that showed normal sinus rhythm with right bundle branch block and atrial fibrillation at 12.9% of total scan. Average heart rate was noted to be 85 bpm. His longest R to R interval was 6 seconds when he convert from atrial fibrillation. He was seen by [facility], Dr. Shree Ochoa, on 11/12/2021 with the plan to continue to observe. He denies chest, arm, jaw, or neck discomfort. He continues with shortness of breath with exertion when walking fast that improves with rest. He denies shortness of breath at rest, orthopnea, PND, sudden weight gain, or bilateral lower extremity edema. He denies chronic cough. He denies palpitations, lightheadedness, dizziness, near syncope, or syncopal episodes. He denies claudication issues. He denies fever or chills. He denies blood in urine, blood in stool, or epistaxis. He denies myalgia. He also notes an increase in fatigue after golfing. He states after 20 minutes of mowing he noted an increase in shortness of breath that did not recover as quickly as previously. Intake Vital Signs 01/31/23 09:54 08/12/23 11:11 09/15/23 15:05 Height 6 ft 1 in 6 ft 1 in 6 ft 1 in Weight: 234 lb BMI 30.9 BP 122/72 H Blood Pressure Location Lt brachial Position Sitting Respiration 14 Pulse 73 Pulse Source NIBP Intake Visit Reasons: 7 m fu Allergies No Known Allergies Allergy (Verified 09/15/23 15:16) Medications aspirin 81 mg tablet,delayed release (Adult Aspirin Regimen) 81 mg PO DAILY 10/14/21 [History Confirmed 09/15/23] atorvastatin 80 mg tablet 80 mg PO QHS #90 tabs 09/15/22 [Rx Confirmed 09/15/23] benazepril 20 mg tablet 40 mg (2 x 20 mg) PO DAILY #180 tabs 03/17/23 [Rx Confirmed 09/15/23] spironolactone 25 mg tablet 25 mg PO QPM #90 tabs 06/08/23 [Rx Confirmed 09/15/23] [facility] Medical History (Reviewed 09/15/23 @ 15:22 by Lele Hanley PAEDIATRIC PHYSIOTHERAPIST, PAEDIATRIC PHYSIOTHERAPIST-C) Atherosclerosis of coronary artery of pilot point heart without angina pectoris Dilated aortic root Essential hypertension Gout History of diverticulosis Hyperlipidemia Incomplete right bundle branch block Internal hemorrhoid Osteoarthritis Palmar fascial fibromatosis [dupuytren] Prostate cancer Type 2 diabetes mellitus Surgical History (Reviewed 09/15/23 @ 15:22 by Lele Hanley PAEDIATRIC PHYSIOTHERAPIST, PAEDIATRIC PHYSIOTHERAPIST-C) H/O coronary artery bypass surgery (09/30/21) History of cardioversion (09/2020) History of coronary artery stent placement (10/18/14) History of left heart catheterization (09/03/21) History of left knee replacement (2013) History of radical prostatectomy (11/19/21) History of tonsillectomy and adenoidectomy (1947) History of total left hip replacement ( (more content not included)... Normal [facility] Basophil percentageOrdered B y: Lele Hanley on 09-02-2023 Bilirubin [Mass/Vol] 0.90 mg/dL 0.20-1.00 [facility] Comment on above: For patients on eltr ombopag therapy, use of Dimension Equality TBIL is not recommended. Cholesterol [Mass/Vol] 233 mg/dL <200 [facility] Comment on above: <200 mg/dL Desirable 200-240 mg/dL Borderline >240 mg/dL High Risk Protein [Mass/Vol] 6.9 g/dL 6.4-8.2 [facility] Triglyceride [Mass/Vol] 119 mg/dL <199 [facility] Comment on above: The drugs N-Acetylcy steine and Metamizole may falsely depress this assay.Serum Triglycerides Reference Interval Normal <150 mg/dL Borderline high 150 - 199 mg/dL High 200 - 499 mg/dL Very High > or = 500 mg/dL Direct bilirubinOrdered By: Lele Hanley on 09-02-2023 Bilirubin.direct [Mass/Vol] 0.17 mg/dL 0.00-0.30 [facility] Laboratory - Chemistry and C hemistry - challengeOrdered By: Lele Hanley on 09-02-2023 ALP [Catalytic activity/Vol] 93 U/L 45-117 [facility] ALT [Catalytic activity/Vol] 33 U/L 16-61 [facility] Cholesterol in HDL [Mass/Vol] 47 mg/dL >40 [facility] Comment on above: The drugs N-Acetylcy steine and Metamizole may falsely depress this assay. Reference Range HDL <40 mg/dL Low HDL Cholesterol HDL >or= 60 mg/dL High HDL Cholesterol Cholesterol in LDL [Mass/Vol] 162 mg/dL 0-130 [facility] Globulin (S) [Mass/Vol] 3.3 g/dL 2.2-4.2 [facility] No Panel InformationOrdered By: Lele Hanley on 09-02-2023 VLDL Cholesterol 24 mg/dL 5-40 [facility] Thin prep Papanicolaou smear with manual screeningOrdered By: Lele Hanley on 09-02-2023 Thin prep Papanicolaou smear with manual screening 3.6 g/dL 3.2-5.0 [facility] Thin prep Papanicolaou smear with manual screening 22 U/L 15-37 [facility] Basophil percentageOrdered B y: Lele Hanley on 04-01-2023 Chloride [Moles/Vol] 108 mmol/L 98-107 [facility] Glucose [Mass/Vol] 174 mg/dL 74-106 [facility] Comment on above: Fasting Glucose resu lt greater than or equal to 126 mg/dL suggests DIABETES MELLITUS per A.D.A. criteria. Potassium [Moles/Vol] 3.9 mmol/L 3.5-5.1 [facility] Sodium [Moles/Vol] 139 mmol/L 136-145 [facility] Laboratory - Chemistry and C hemistry - challengeOrdered By: Lele Hanley on 04-01-2023 CO2 [Moles/Vol] 25.0 mmol/L 21.0-32.0 [facility] Urea nitrogen/Creatinine [Mass ratio] 23.5 mg/mg 10-20 [facility] No Panel InformationOrdered By: Lele Hanley on 04-01-2023 Estimated GFR (MDRD) Amer 91 mL/min >60 [facility] Comment on above: GFR Calc Estimated GFR (MDRD) Non-Af Amer 75 mL/min >60 [facility] Comment on above: Non- GFR Calc Serum or plasma calcium kyleigh urement (mass/volume)Ordered By: Lele Hanley on 04-01-2023 Calcium [Mass/Vol] 8.7 mg/dL 8.5-10.1 [facility] Serum or plasma creatinine m easurement (mass/volume)Ordered By: Lele Hanley on 04-01-2023 Creatinine [Mass/Vol] 1.02 mg/dL 0.70-1.30 [facility] Comment on above: The validity of the calculated GFR & GFRAA in patients over 70 years has not been determined. Clinical correlation is essential. Serum or plasma urea nitroge n measurement (mass/volume)Ordered By: Lele Hanley on 04-01-2023 Urea nitrogen [Mass/Vol] 24 mg/dL 7-18 [facility] Thin prep Papanicolaou smear with manual screeningOrdered By: Lele Hanley on 04-01-2023 Thin prep Papanicolaou smear with manual screening 6 5-15 [facility] Basophil percentageOrdered B y: Lele Hanley on 01-28-2023 Bilirubin [Mass/Vol] 0.60 mg/dL 0.20-1.00 [facility] Comment on above: For patients on eltr ombopag therapy, use of Dimension Equality TBIL is not recommended. Cholesterol [Mass/Vol] 120 mg/dL <200 [facility] Comment on above: <200 mg/dL Desirable 200-240 mg/dL Borderline >240 mg/dL High Risk Protein [Mass/Vol] 7.2 g/dL 6.4-8.2 [facility] Triglyceride [Mass/Vol] 123 mg/dL <199 [facility] Comment on above: The drugs N-Acetylcy steine and Metamizole may falsely depress this assay.Serum Triglycerides Reference Interval Normal <150 mg/dL Borderline high 150 - 199 mg/dL High 200 - 499 mg/dL Very High > or = 500 mg/dL Direct bilirubinOrdered By: Lele Hanley on 01-28-2023 Bilirubin.direct [Mass/Vol] 0.16 mg/dL 0.00-0.30 [facility] Laboratory - Chemistry and C hemistry - challengeOrdered By: Lele Hanley on 01-28-2023 ALP [Catalytic activity/Vol] 128 U/L 45-117 [facility] ALT [Catalytic activity/Vol] 33 U/L 16-61 [facility] Globulin (S) [Mass/Vol] 3.5 g/dL 2.2-4.2 [facility] Serum or plasma albumin kyleigh urement (mass/volume)Ordered By: Lele Hanley on 01-28-2023 Albumin [Mass/Vol] 3.7 g/dL 3.2-5.0 [facility] Serum or plasma cholesterol in HDL measurement (mass/volume)Ordered By: Lele Hanley on 01-28-2023 Cholesterol in HDL [Mass/Vol] 42 mg/dL >40 [facility] Comment on above: The drugs N-Acetylcy steine and Metamizole may falsely depress this assay. Reference Range HDL <40 mg/dL Low HDL Cholesterol HDL >or= 60 mg/dL High HDL Cholesterol Serum or plasma cholesterol in VLDL measurement (mass/volume)Ordered By: Lele Hanley on 01-28-2023 Cholesterol in VLDL [Mass/Vol] 25 mg/dL 5-40 [facility] Serum or plasma low density lipoprotein (LDL) cholesterol measurement (mass/volume)Ordered By: Lele Hanley on 01-28-2023 Cholesterol in LDL [Mass/Vol] 53 mg/dL 0-130 [facility] Thin prep Papanicolaou smear with manual screeningOrdered By: Lele Hanley on 01-28-2023 Thin prep Papanicolaou smear with manual screening 29 U/L 15-37 [facility] Comment on above: Slight Hemolysis, Re sult may be falsely increased. HbA1c (Bld)on 05-14-2022 Average glucose Estimated from glycated hemoglobin (Bld) [Mass/Vol] 140 mg/dL [facility] HbA1c (Bld) [Mass fraction] 6.5 % High 4.3 - 5.6 % [facility] UA DIP, URINE (POC)on 2021 BILIRUBIN UA (POCT) Negative Negative [facility] CLARITY UA (POCT) Clear [facility] COLOR UA (POCT) Yellow [facility] GLUCOSE UA (POCT) Negative Negative mg/dL [facility] HEMOGLOBIN/BLOOD UA (POCT) Negative Negative [facility] KETONE UA (POCT) Negative Negative mg/dL [facility] LEUKOCYTES UA (POCT) Negative Negative [facility] NITRITE UA (POCT) Negative Negative [facility] PH UA (POCT) 6.0 4.5 - 8.0 [facility] Protein Ql (U) 30 mg/dL Abnormal Negative mg/dL [facility] SPECIFIC GRAVITY UA (POCT) 1.020 1.005 - 1.030 [facility] UROBILINOGEN UA (POCT) 0.2 E.U./dL Normal E.U./dL [facility] CBC W Auto Differential pane l (Bld)on 11-17-2021 Abs Immature Gran <0.03 <0.10 k/uL [facility] Basophils (Bld) [#/Vol] 0.04 10*3/uL <0.11 k/uL [facility] Basophils/100 WBC (Bld) 0.5 % [facility] Differential cell count method Nom (Bld) Auto [facility] Eosinophils (Bld) [#/Vol] 0.36 10*3/uL <0.46 k/uL [facility] Eosinophils/100 WBC (Bld) 4.7 % [facility] Erythrocyte distribution width (RBC) [Ratio] 13.9 % 11.5 - 15.0 % [facility] Hematocrit (Bld) [Volume fraction] 34.5 % Low 39.0 - 51.0 % [facility] Hemoglobin (Bld) [Mass/Vol] 11.0 g/dL Low 13.0 - 17.0 g/dL [facility] Immature Gran % 0.3 % [facility] Lymphocytes (Bld) [#/Vol] 1.14 10*3/uL 1.00 - 4.00 k/uL [facility] Lymphocytes/100 WBC (Bld) 14.9 % [facility] MCH (RBC) [Entitic mass] 27.2 pg 26.0 - 34.0 pg [facility] MCHC (RBC) [Mass/Vol] 31.9 g/dL 30.5 - 36.0 g/dL [facility] MCV (RBC) [Entitic vol] 85.2 fL 80.0 - 100.0 fL [facility] Monocytes (Bld) [#/Vol] 0.77 10*3/uL <0.87 k/uL [facility] Monocytes/100 WBC (Bld) 10.1 % [facility] Neutrophils (Bld) [#/Vol] 5.32 10*3/uL 1.45 - 7.50 k/uL [facility] Neutrophils/100 WBC (Bld) 69.5 % [facility] Nucleated RBC (Bld) [#/Vol] 10*3/uL <0.01 k/uL [facility] Nucleated RBC/100 WBC (Bld) [Ratio] 0.0 /100 WBC [facility] Platelet mean volume (Bld) [Entitic vol] 9.4 fL 9.0 - 12.7 fL [facility] Platelets (Bld) [#/Vol] 432 10*3/uL High 150 - 400 k/uL [facility] RBC (Bld) [#/Vol] 4.05 10*6/uL Low 4.20 - 6.00 m/uL [facility] WBC (Bld) [#/Vol] 7.65 10*3/uL 3.70 - 11.00 k/uL [facility] URINALYSIS, REFLEX MICROSCOP ICon 11-17-2021 Bilirubin Ql (U) Negative Negative [facility] Clarity (Unsp spec) Clear Clear [facility] Color (U) Yellow Yellow [facility] Glucose Test strip (U) [Mass/Vol] Negative Negative [facility] Hemoglobin Ql (U) Negative Negative [facility] Ketones Ql (U) Negative Negative [facility] Leukocyte esterase Test strip Ql (U) Negative Negative [facility] Nitrite Ql (U) Negative Negative [facility] pH (U) 5.5 [pH] 5.0 - 8.0 [facility] Protein (U) [Mass/Vol] Negative Negative [facility] Specific gravity (U) [Rel density] 1.017 1.005 - 1.030 [facility] Urobilinogen Ql (U) Negative Negative [facility] XR CHEST 2V FRONTAL/LATon [facility] MRI THORACIC SPINE WO/W IVCO Non 09-23-2021 [facility] Absolute lymphocyte counton 08-24-2021 Lymphocytes Auto (Unsp spec) [#/Vol] 1.57 10*3/uL 0.83-4.51 [facility] Work Phone: Basophil percentageon 2021 Basophils/100 WBC (Bld) 0.3 % 0-1 [facility] Work Phone: Chloride [Moles/Vol] 108 mmol/L 98-107 [facility] Work Phone: Eosinophils/100 WBC (Bld) 2.2 % 0-5 [facility] Work Phone: Glucose [Mass/Vol] 127 mg/dL 74-106 [facility] Work Phone: Comment on above: Fasting Glucose resu lt greater than or equal to 126 mg/dL suggests DIABETES MELLITUS per A.D.A. criteria. Neutrophils (Bld) [#/Vol] 5.0 10*3/uL 2.0-7.7 [facility] Work Phone: Neutrophils/100 WBC (Bld) 66.5 % 47-70 [facility] Work Phone: Potassium [Moles/Vol] 4.3 mmol/L 3.5-5.1 [facility] Work Phone: Sodium [Moles/Vol] 137 mmol/L 136-145 [facility] Work Phone: WBC (Bld) [#/Vol] 7.6 10*3/uL 4.4-11.0 [facility] Work Phone: Blood erythrocytes count (nu mber/volume)on 08-24-2021 RBC (Bld) [#/Vol] 4.82 10*6/uL 4.6-6.2 [facility] Work Phone: Blood hemoglobin measurement (mass/volume)on 08-24-2021 Hemoglobin (Bld) [Mass/Vol] 14.0 g/dL 13.0-16.5 [facility] Work Phone: Blood lymphocytes/100 leukoc yteson 08-24-2021 Lymphocytes/100 WBC (Bld) 20.8 % 19-41 [facility] Work Phone: Blood monocytes/100 leukocyt eson 08-24-2021 Monocytes/100 WBC (Bld) 9.9 % 0-10 [facility] Work Phone: Blood platelet mean volumeon 08-24-2021 Platelet mean volume (Bld) [Entitic vol] 10.7 fL 6.2-12.0 [facility] Work Phone: [phone] Determination of erythrocyte mean corpuscular volume (MCV)on 08-24-2021 MCV (RBC) [Entitic vol] 89.6 fL 80-94 [facility] Work Phone: Hematocrit Auto (Bld) [Volum e fraction]on 08-24-2021 Hematocrit (Bld) [Volume fraction] 43.2 % 40-54 [facility] Work Phone: [phone] Laboratory - Chemistry and C hemistry - challengeon 08-24-2021 CO2 [Moles/Vol] 28.0 mmol/L 21.0-32.0 [facility] Work Phone: [phone] Urea nitrogen/Creatinine [Mass ratio] 15.7 mg/mg 10-20 [facility] Work Phone: Laboratory - Hematology and Cell countson 08-24-2021 Erythrocyte distribution width (RBC) [Entitic vol] 44.2 fL 35.1-43.9 [facility] Work Phone: [phone] Erythrocyte distribution width (RBC) [Ratio] 13.4 % 11.6-14.6 [facility] Work Phone: Immature granulocytes/100 WBC (Bld) 0.300 % 0.0-0.9 [facility] Work Phone: [phone] Comment on above: IG% - Immature Granu locytes (promyelocytes, myelocytes and metamyelocytes) > 1% indicates that a LEFT SHIFT is Present. MCH (RBC) [Entitic mass] 29.0 pg 27.0-32.0 [facility] Work Phone: Nucleated RBC/100 WBC (Bld) [Ratio] 0 % 0-5 [facility] Work Phone: MCHC Auto (RBC) [Mass/Vol]on 08-24-2021 MCHC (RBC) [Mass/Vol] 32.4 g/dL 32-36 [facility] Work Phone: No Panel Informationon 08-24 Estimated GFR (MDRD) Amer 91 mL/min >60 [facility] Work Phone: Comment on above: GFR Calc Estimated GFR (MDRD) Non-Af Amer 75 mL/min >60 [facility] Work Phone: Comment on above: Non- GFR Calc Platelets bldon 08-24-2021 Platelets (Bld) [#/Vol] 259 10*3/uL 150-450 [facility] Work Phone: Serum or plasma calcium kyleigh urement (mass/volume)on 08-24-2021 Calcium [Mass/Vol] 8.9 mg/dL 8.5-10.1 [facility] Work Phone: Serum or plasma creatinine m easurement (mass/volume)on 08-24-2021 Creatinine [Mass/Vol] 1.02 mg/dL 0.70-1.30 [facility] Work Phone: Comment on above: The validity of the calculated GFR & GFRAA in patients over 70 years has not been determined. Clinical correlation is essential. Serum or plasma urea nitroge n measurement (mass/volume)on 08-24-2021 Urea nitrogen [Mass/Vol] 16 mg/dL 7-18 [facility] Work Phone: Thin prep Papanicolaou smear with manual screeningon 08-24-2021 Thin prep Papanicolaou smear with manual screening 1 5-15 [facility] Work Phone: Basophil percentageon 2021 Bilirubin [Mass/Vol] 0.80 mg/dL 0.20-1.00 [facility] Work Phone: Comment on above: For patients on eltr ombopag therapy, use of Dimension Equality TBIL is not recommended. Cholesterol [Mass/Vol] 139 mg/dL <200 [facility] Work Phone: Comment on above: <200 mg/dL Desirable 200-240 mg/dL Borderline >240 mg/dL High Risk Protein [Mass/Vol] 7.5 g/dL 6.4-8.2 [facility] Work Phone: Triglyceride [Mass/Vol] 119 mg/dL [facility] Work Phone: Comment on above: The drugs N-Acetylcy steine and Metamizole may falsely depress this assay.Serum Triglycerides Reference Interval Normal <150 mg/dL Borderline high 150 - 199 mg/dL High 200 - 499 mg/dL Very High > or = 500 mg/dL Direct bilirubinon Bilirubin.direct [Mass/Vol] 0.19 mg/dL 0.00-0.30 [facility] Work Phone: Laboratory - Chemistry and C hemistry - challengeon 08-05-2021 ALP [Catalytic activity/Vol] 113 U/L 45-117 [facility] Work Phone: ALT [Catalytic activity/Vol] 33 U/L 16-61 [facility] Work Phone: Globulin (S) [Mass/Vol] 3.7 g/dL 2.2-4.2 [facility] Work Phone: Serum or plasma albumin kyleigh urement (mass/volume)on 08-05-2021 Albumin [Mass/Vol] 3.8 g/dL 3.2-5.0 [facility] Work Phone: Serum or plasma cholesterol in HDL measurement (mass/volume)on 08-05-2021 Cholesterol in HDL [Mass/Vol] 35 mg/dL [facility] Work Phone: Comment on above: The drugs N-Acetylcy steine and Metamizole may falsely depress this assay. Reference Range HDL <40 mg/dL Low HDL Cholesterol HDL >or= 60 mg/dL High HDL Cholesterol Serum or plasma cholesterol in VLDL measurement (mass/volume)on 08-05-2021 Cholesterol in VLDL [Mass/Vol] 24 mg/dL 5-40 [facility] Work Phone: Serum or plasma low density lipoprotein (LDL) cholesterol measurement (mass/volume)on 08-05-2021 Cholesterol in LDL [Mass/Vol] 80 mg/dL 0-130 [facility] Work Phone: Thin prep Papanicolaou smear with manual screeningon 08-05-2021 Thin prep Papanicolaou smear with manual screening 20 U/L 15-37 [facility] Work Phone: OBSOLETEon 08-10-2017 OBSOLETE Refill (AGCARDWST) ----JERMAINE BEGUM ([id number]) 1945 M [facility] Time Provider Department08/10/17 EREN CLARK AGCISAIASWST During your visit today, we recorded the following information about you:Faith Blackman MA 08/10/2017 1:31 PM SignedPatient is in waiting room and would [facility] a [facility]Please sign.Patient phones requesting refills as follows:Pending Prescriptions Disp Refills ISOSORBIDE MONONITRATE ER 30 MG TABLET,EXTENDED RELEASE 24 HR 30 tablet 11 Sig: Take 0.5 tablets by mouth once daily. CHELSEA: No Please review and advise.Sky Peñaloza MD 08/10/2017 1:32 PM SignedThe following approved medication requests have been transmitted electronically.Signed Prescriptions Disp Refills isosorbide mononitrate ER (IMDUR) 30 mg 24 hr tablet 30 tablet 11 Sig: Take 0.5 tablets by mouth once daily. CHELSEA: No Authorizing Provider: EREN CLARK MDAdam Gilmor, RN, RN 08/10/2017 1:36 PM SignedGiven to patient.Allergies As of Date: 08/10/2017(No Known Allergies)Date Reviewed: 07/14/2017Reviewed by: Faith Blackman - Fully AssessedReason for Visit: Refill Request [94]Order(s):isosorbide mononitrate ER (IMDUR) 30 mg 24 hr tabletTake 0.5 tablets by mouth once daily.Disp: 30 tabletRfl: 11Prescriptions as of 08/10/2017 Sig: ISOSORBIDE MONONITRATE ER 30 * Take 0.5 tablets by mouth onc* ATORVASTATIN 40 MG TABLET Take 1 tablet by mouth once d* ATENOLOL 25 MG TABLET Take 0.5 tablets by mouth onc* SPIRONOLACTONE 25 MG TABLET Take 1 tablet by mouth once d* BENAZEPRIL 20 MG TABLET Take 1 tablet by mouth once d* CLOPIDOGREL 75 MG TABLET Take 1 tablet by mouth once d* NITROGLYCERIN 0.4 MG SUBLINGU* Dissolve 1 tablet under the t* ALLOPURINOL 300 MG TABLET Take 1 tablet by mouth once d* ASPIRIN 325 MG TABLET Take 325 mg by mouth once darlene*Problem List As Of Date 08/10/2017 Noted Resolved MIXED HYPERLIPIDEMIA [E78.2] INVALID FOR* BENIGN HYPERTENSION [I10] INVALID FOR* LOC OSTEOARTH NOS-SHLDER [M19.019] INVALID FOR* GOUT NOS [M10.9] INVALID FOR* CAD (Coronary Artery Disease) [I25.10] Medication Side Effects [T88.7XXA] INVALID FOR* BPH w urinary obs/LUTS [N40.1] INVALID FOR* Elevated PSA [R97.20] INVALID FOR* Gynecomastia [N62] INVALID FOR* Allergic rhinitis [J30.9] INVALID FOR*Prescriptions ordered this encounter Disp Refills Start End ISOSORBIDE MONONITRATE ER 30 MG TABL* 30 t* 11 08/10/2017 Class: Print RX Route: ORAL Sig: Take 0.5 tablets by mouth once daily.Medications Discontinued During This Encounter isosorbide mononitrate ER (IMDUR) 30* 30 t* 11 07/14/2017 08/10/2017 Class: Med Update Route: ORAL Sig: Take 0.5 tablets by mouth once daily. Disc: Reason for discontinue is not on file. Status:Closed by AUSTIN MORGAN on 08/10/17 [facility] 07-28-2017 CNPN Telephone (AGCARDWST) ----JERMAINE BEGUM ([id number]) 1945 M RDate Time Provider Department07/28/17 EREN CLARK AGCARDWST During your visit today, we recorded the following information about you:Mauriceyelitzafabien Palacio Psr 07/28/2017 9:32 AM SignedPatient has called the office twice and was unable to speak to a nurse. He hasquestions in regards to a new medication that he was prescribed. He did notdisclose the medication as he wishes to speak to a nurse. Please contactpatient at: [phone].Austin Morgan, RN, RN 07/28/2017 9:39 AM SignedPatient states that one of his knees is bone on bone. He had a cortisone shotand they prescribed Mobic 15mg daily with a 30 day supply. He wanted to verifyif this would be ok to take from a cardiac standpoint. Thank you.Eren Clark MD 07/28/2017 11:27 AM SignedI have no objection to taking it for short course. It is probably not as safeas Celebrex.Eren Clark MD.Austin Morgan, RN, RN 07/28/2017 11:54 AM SignedPatient verbalizes understanding.Austin Morgan RN, RN 08/02/2017 2:00 PM SignedPatient states that after researching the Celebrex he wasn't sure he would evenlike to do that. He states that over the course of approximately 5 days he waspredominantly pain free. Then the pain in his knee reached a 7/10 one day. Hetook two extra strength Tylenol and pain was reduced to an acceptable 2/10. Hefeels that using Tylenol in this way would be effective, and he would prefer todo that rather than Mobic or Celebrex. He wants to verify there is nocontraindication from your point of view.Eren Clark MD 08/02/2017 3:28 PM SignedI agree. Best to avoid nonsteroidals.Eren Clark, Luz Morgan, RN, RN 08/02/2017 3:45 PM SignedUnable to reach patient, unable to leave [facility].Austin Morgan, RN, RN 08/02/2017 4:29 PM SignedUnable to reach patient, unable to leave ms.Austin Morgan, RN, RN 08/02/2017 4:54 PM SignedPatient verbalizes understanding.Allergies As of Date: 07/28/2017(No Known Allergies)Date Reviewed: 07/14/2017Reviewed by: Faith Blackman - Fully AssessedReason for Visit: Medication Question [1478]Prescriptions as of 07/28/2017 Sig: ISOSORBIDE MONONITRATE ER 30 * Take 0.5 tablets by mouth onc* ATORVASTATIN 40 MG TABLET Take 1 tablet by mouth once d* ATENOLOL 25 MG TABLET Take 0.5 tablets by mouth onc* SPIRONOLACTONE 25 MG TABLET Take 1 tablet by mouth once d* BENAZEPRIL 20 MG TABLET Take 1 tablet by mouth once d* CLOPIDOGREL 75 MG TABLET Take 1 tablet by mouth once d* NITROGLYCERIN 0.4 MG SUBLINGU* Dissolve 1 tablet under the t* ALLOPURINOL 300 MG TABLET Take 1 tablet by mouth once d* ASPIRIN 325 MG TABLET Take 325 mg by mouth once darlene*Problem List As Of Date 07/28/2017 Noted Resolved MIXED HYPERLIPIDEMIA [E78.2] INVALID FOR* BENIGN HYPERTENSION [I10] INVALID FOR* LOC OSTEOARTH NOS-SHLDER [M19.019] INVALID FOR* GOUT NOS [M10.9] INVALID FOR* CAD (Coronary Artery Disease) [I25.10] Medication Side Effects [T88.7XXA] INVALID FOR* BPH w urinary obs/LUTS [N40.1] INVALID FOR* Elevated PSA [R97.20] INVALID FOR* Gynecomastia [N62] INVALID FOR* Allergic rhinitis [J30.9] INVALID FOR* Status:Closed by AUSTIN MORGAN on 07/28/17 [facility] CNOVon 07-14-2017 CNOV Office Visit (AGCARDWST) ----JERMAINE BEGUM ([id number]) 1945 M NFRDate Time Provider Department07/14/17 4:00 PM EREN CLARK AGCARDWST During your visit today, we recorded the following information about you: Pulse Blood pressure Weight Height 62/minute 116/68 106.7 kg 1.854 Abby Clark MD 07/14/2017 4:52 PM SignedPERTINENT CARDIAC HISTORYASHD - PCI Cx 2006, PCI Cx ISR [id number] - 3.9 cmADHERENCE TO GUIDELINESACE-I or ARB for HF with prior LVEFANDlt;40 (NQF 0081) - metASA or Plavix for ASHD (NQF 0067) - metBeta scottie for ASHD with prior PA or prior LVEFANDlt;40 (NQF 0070) - metBeta scottie for HF with prior LVEFANDlt;40 (NQF 0083) - N/AACE-I or ARB for ASHD with DM or prior LVEFANDlt;40 (NQF 0066) - N/AStatin therapy for ASHD or FHL or DM - metBMI documented and plan if ANDgt;25 (NQF 0421) - lifestyle recommendation formTobacco use screening and referral (NQF 0028) - lifestyle recommendation formRecommendation for whole food, plant based diet - lifestyle recommendation formCLINICAL IMPRESSION/PLAN:Jermaine Begum has intermittent shortness of breath which does not alwayscorrelate well with the degree of activity. I suspect that he is holding hisbreath when carrying things and probably is developing an oxygen debt. I'veencouraged him to start breathing more rapidly at the beginning of exertion tosee if this helps. If he has decreased exercise tolerance, he's been advised tocontact me. I've also encouraged him to continue the isosorbide and to usenitroglycerin liberally.I will see him in 8 months or as needed. Labs are scheduled for October and I'veasked him to send me a copy.Written and verbal health teaching given to patient, patient verbalizesunderstanding and agrees with treatment plan.This note was generated using [employer] voice recognition system, and there may besome incorrect words, spellings, and punctuation that were not noted inchecking the note before saving.DIAGNOSIS FOR VISIT:ASHDHypertensionHISTORY OF PRESENT ILLNESSJermaine Begum returns for follow-up of coronary disease.He underwent stress test in the fall for evaluation of atypical symptoms. Hewas started on isosorbide. He never increased beyond 15 milligrams daily. Hereports that he did not feel that this made him feel any better.Stress test showed no evidence of ischemia. He was encouraged to continue hisusual activity. He notes that he was able to ride a bicycle at sea level onflat grade for miles at a time without any shortness of breath. He continues tohave occasional episode of unexpected shortness of breath when carryingobjects, especially upstairs.He has recently enrolled in an [facility].He denies chest discomfort. He's had no edema, syncope, palpitations, TIAs,amaurosis or claudication.ALLERGIES:ALLERG IESNo Known AllergiesCURRENT OUTPATIENT MEDICATIONS:isosorbide mononitrate ER (IMDUR) 30 mg 24 hr tablet Take 0.5 tablets by mouthonce daily.atorvastatin (LIPITOR) 40 mg tablet Take 1 tablet by mouth once daily.atenolol (TENORMIN) 25 mg tablet Take 0.5 tablets by mouth once daily.spironolactone (ALDACTONE) 25 mg tablet Take 1 tablet by mouth once daily.benazepril (LOTENSIN) 20 mg tablet Take 1 tablet by mouth once daily.clopidogrel (PLAVIX) 75 mg tablet Take 1 tablet by mouth once daily.nitroglycerin sublingual (NITROQUICK) 0.4 mg SL tablet Dissolve 1 tablet underthe tongue as needed. FOR CHEST PAIN. IF NO RELIEF CALL 911aspirin 325 mg tablet Take 325 mg by mouth once daily. Take 1/2 tablet dailyallopurinol (ZYLOPRIM) 300 mg tablet Take 1 tablet by mouth once daily. Toprevent gout attacks.PHYSICAL EXAMINATION:VITAL SIGNS: BP 116/68 Pulse 62 Ht 6' 1ANDquot; (1.85m) Wt 235 lb 4.8 oz(106.7kg) BMI 31.05 kg/(m2).Chest: Clear to percussion and auscultation. Trachea is midline. Air entry isequal. Cardiac: Regular rhythm. S1 and S2 are normal. PMI is nondisplaced.There is a soft systolic ejection murmur. Carotids are brisk without bruits.JVP is less than 10 cm. Abdomen: Soft and nontender. There are no pulsatilemasses or bruits. No liver enlargement. Bowel sounds are active.Extremities: No edema. Pulses are intact and symmetrical.Stress test showed normal ejection fraction. There was no evidence of ischemia.Recent carotid exam showed stable disease.Electronically Signed:Eren Clark [facility] 2017 4:23 [facility]: Jenn Damian MD 07/14/2017 4:23 PM SignedLIFESTYLE CHANGEA healthy lifestyle is the most important component of your overall treatmentplan. Please give serious thought to the following areas and commit to makinglong term changes.EAT A WHOLE FOOD, PLANT BASED DIETThe nutrition your body gets is more important than the medicine you take.What matters most is the overall way you eat. We encourage you to minimize theuse of animal products (which include dairy and all meats except fatty fish)and use whole, unprocessed plant foods to provide your protein, vitamins andother nutrients. We have a lot of information to share with you on this topic. We also hold Shared Medical Appointments, where you can come visit with in the company of other patients and spend over an hour talking aboutthe challenges of changing the way you eat. This is not a ANDquot;dietANDquot;.It is a way of life that you will keep with you.EXERCISE REGULARLYIt is not important to spend hours in the gym, lifting weights and perspiringheavily. A total of 2-3 hours per week of aerobic (causing you to bemoderately short of breath) exercise is sufficient to improve your health.Talk to us before you begin a new exercise program, if you have heart diseaseor experience shortness of breath or chest pain.REDUCE STRESSChronic emotional and physical stress leads to disease. Ways of reducingstress include meditation, visualization, prayer, yoga and other forms ofrelaxation therapy. Consistency is the hernandez. Find a technique that works foryou and do it every day.CULTIVATE RELATIONSHIPSLoneliness and isolation have a major negative impact on health. Seek outothers who can love, care for and nurture you. Avoid hurtful relationships.MAINTAIN IDEAL BODY WEIGHTThe best way to do this is to do all the things above. Our bodies naturallyfind the right weight if we keep moving and feed ourselves the right food. Ifyour BMI is greater than 25, we strongly recommend a referral to a weightmanagement program. Please speak to us or your family physician aboutavailable programs.AVOID NICOTINE IN ALL FORMSThis includes all tobacco products, whether chewed, smoked, vaped, or rubbed onthe skin. Smoking cessation programs, which can make use of tobaccosubstitutes, medications to suppress cravings and behavior management, areavailable. Please contact your family physician about programs in your area.Referring Provider: EREN CLARK [[id number]]Allergies As of Date: 07/14/2017(No Known Allergies)Date Reviewed: 07/14/2017Reviewed by: Faith Blackman - Fully AssessedReason for Visit: Follow Up [171]Primary Visit Diagnosis:ASHD (arteriosclerotic heart disease) [I25.10] Other Visit Diagnosis:Essential hypertension [I10]Order(s):isosorbide mononitrate ER (IMDUR) 30 mg 24 hr tabletTake 0.5 tablets by mouth once daily.Disp: 30 tabletRfl: 11Prescriptions as of 07/14/2017 Sig: ISOSORBIDE MONONITRATE ER 30 * Take 0.5 tablets by mouth onc* ATORVASTATIN 40 MG TABLET Take 1 tablet by mouth once d* ATENOLOL 25 MG TABLET Take 0.5 tablets by mouth onc* SPIRONOLACTONE 25 MG TABLET Take 1 tablet by mouth once d* BENAZEPRIL 20 MG TABLET Take 1 tablet by mouth once d* CLOPIDOGREL 75 MG TABLET Take 1 tablet by mouth once d* NITROGLYCERIN 0.4 MG SUBLINGU* Dissolve 1 tablet under the t* ASPIRIN 325 MG TABLET Take 325 mg by mouth once darlene* ALLOPURINOL 300 MG TABLET Take 1 tablet by mouth once d*Medication notes this encounter ALLOPURINOL 300 MG TABLET >> Faith Blackman MA 07/14/2017 4:02 PM >> FAITH BLACKMAN MA Kiah Jul 14, 2017 4:02 PM Not takingProblem List As Of Date 07/14/2017 Noted Resolved MIXED HYPERLIPIDEMIA [E78.2] INVALID FOR* BENIGN HYPERTENSION [I10] INVALID FOR* LOC OSTEOARTH NOS-SHLDER [M19.019] INVALID FOR* GOUT NOS [M10.9] INVALID FOR* CAD (Coronary Artery Disease) [I25.10] Medication Side Effects [T88.7XXA] INVALID FOR* BPH w urinary obs/LUTS [N40.1] INVALID FOR* Elevated PSA [R97.20] INVALID FOR* Gynecomastia [N62] INVALID FOR* Allergic rhinitis [J30.9] INVALID FOR* Other instructions from your clinician: LIFESTYLE CHANGE A healthy lifestyle is the most important component of your overall treatment plan. 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 EAT A WHOLE FOOD, PLANT BASED DIET The nutrition your body gets is more important than the medicine you take. What matters most is the overall way you eat. We encourage you to minimize the use of animal products (which include dairy and all meats except fatty fish) and use whole, unprocessed plant foods to provide your protein, vitamins and other nutrients. We have a lot of information to share with you on this topic. We also hold Shared Medical Appointments, where you can come visit with Dr. Clark in the company of other patients and spend over an hour talking about the challenges of changing the way you eat. This is not a diet. It is a way of life that you will keep with you. EXERCISE REGULARLY It is not important to spend hours in the gym, lifting weights and perspiring heavily. A total of 2-3 hours per week of aerobic (causing you to be moderately short of breath) exercise is sufficient to improve your health. Talk to us before you begin a new exercise program, if you have heart disease or experience shortness of breath or chest pain. REDUCE STRESS Chronic emotional and physical stress leads to disease. Ways of reducing stress include meditation, visualization, prayer, yoga and other forms of relaxation therapy. Consistency is the hernandez. Find a technique that works for you and do it every day. CULTIVATE RELATIONSHIPS Loneliness and isolation have a major negative impact on health. Seek out others who can love, care for and nurture you. Avoid hurtful relationships. MAINTAIN IDEAL BODY WEIGHT The best way to do this is to do all the things above. Our bodies naturally find the right weight if we keep moving and feed ourselves the right food. If your BMI is greater than 25, we strongly recommend a referral to a weight management program. Please speak to us or your family physician about available programs. AVOID NICOTINE IN ALL FORMS This includes all tobacco products, whether chewed, smoked, vaped, or rubbed on the skin. Smoking cessation programs, which can make use of tobacco substitutes, medications to suppress cravings and behavior management, are available. Please contact your family physician about programs in your area.Prescriptions ordered this encounter Disp Refills Start End ISOSORBIDE MONONITRATE ER 30 MG TABL* 30 t* 11 07/14/2017 Class: Med Update Route: ORAL Sig: Take 0.5 tablets by mouth once daily.Medications Discontinued During This Encounter isosorbide mononitrate ER (IMDUR) 30* 30 t* 11 04/11/2017 07/14/2017 Class: [facility] Route: ORAL Sig: Take 1 tablet by mouth once daily. Disc: Reason for discontinue is not on file. Status:Closed by EREN CLARK MD on 07/14/17 [facility] PROGRESSon 07-14-2017 PROGRESS HNO ID: [id number] thor: Eren Welch: (none)Author Type: PhysicianType: Progress NotesFiled: 07/14/2017 4:52 PMNote Text:PERTINENT CARDIAC HISTORYASHD - PCI Cx 2006, PCI Cx ISR [id number] - 3.9 cmADHERENCE TO GUIDELINESACE-I or ARB for HF with prior LVEF<40 (NQF 0081) - metASA or Plavix for ASHD (NQF 0067) - metBeta scottie for ASHD with prior PA or prior LVEF<40 (NQF 0070) - metBeta scottie for HF with prior LVEF<40 (NQF 0083) - N/AACE-I or ARB for ASHD with DM or prior LVEF<40 (NQF 0066) - N/AStatin therapy for ASHD or FHL or DM - metBMI documented and plan if >25 (NQF 0421) - lifestyle recommendation formTobacco use screening and referral (NQF 0028) - lifestyle recommendationformRecommendat ion for whole food, plant based diet - lifestyle recommendationformCLINICAL IMPRESSION/PLAN:Jermaine Begum has intermittent shortness of breath which does not alwayscorrelate well with the degree of activity. I suspect that he is holdinghis breath when carrying things and probably is developing an oxygen debt.I've encouraged him to start breathing more rapidly at the beginning ofexertion to see if this helps. If he has decreased exercise tolerance,he's been advised to contact me. I've also encouraged him to continue theisosorbide and to use nitroglycerin liberally.I will see him in 8 months or as needed. Labs are scheduled for October Jeanine've asked him to send me a copy.Written and verbal health teaching given to patient, patient verbalizesunderstanding and agrees with treatment plan.This note was generated using [employer] voice recognition system, and theremay be some incorrect words, spellings, and punctuation that were notnoted in checking the note before saving.DIAGNOSIS FOR VISIT:ASHDHypertensionHISTORY OF PRESENT ILLNESSJermaine Begum returns for follow-up of coronary disease.He underwent stress test in the fall for evaluation of atypical symptoms.He was started on isosorbide. He never increased beyond 15 milligramsdaily. He reports that he did not feel that this made him feel any better.Stress test showed no evidence of ischemia. He was encouraged to continuehis usual activity. He notes that he was able to ride a bicycle at [place] on flat grade for miles at a time without any shortness of breath.He continues to have occasional episode of unexpected shortness of breathwhen carrying objects, especially upstairs.He has recently enrolled [facility] an [facility].He denies chest discomfort. He's had no edema, syncope, palpitations,TIAs, amaurosis or claudication.ALLERGIES:ALLERG IESNo Known AllergiesCURRENT OUTPATIENT MEDICATIONS:isosorbide mononitrate ER (IMDUR) 30 mg 24 hr tablet Take 0.5 tablets bymouth once daily.atorvastatin (LIPITOR) 40 mg tablet Take 1 tablet by mouth once daily.atenolol (TENORMIN) 25 mg tablet Take 0.5 tablets by mouth once daily.spironolactone (ALDACTONE) 25 mg tablet Take 1 tablet by mouth once daily.benazepril (LOTENSIN) 20 mg tablet Take 1 tablet by mouth once daily.clopidogrel (PLAVIX) 75 mg tablet Take 1 tablet by mouth once daily.nitroglycerin sublingual (NITROQUICK) 0.4 mg SL tablet Dissolve 1 tabletunder the tongue as needed. FOR CHEST PAIN. IF NO RELIEF CALL 911aspirin 325 mg tablet Take 325 mg by mouth once daily. Take 1/2 tabletdailyallopurinol (ZYLOPRIM) 300 mg tablet Take 1 tablet by mouth once daily. Toprevent gout attacks.PHYSICAL EXAMINATION:VITAL SIGNS: BP 116/68 Pulse 62 Ht 6' 1 (1.85m) Wt 235 lb 4.8 oz(106.7kg) BMI 31.05 kg/(m2).Chest: Clear to percussion and auscultation. Trachea is midline. Airentry is equal. Cardiac: Regular rhythm. S1 and S2 are normal. PMI isnondisplaced. There is a soft systolic ejection murmur. Carotids arebrisk without bruits. JVP is less than 10 cm. Abdomen: Soft andnontender. There are no pulsatile masses or bruits. No liverenlargement. Bowel sounds are active. Extremities: No edema. Pulses areintact and symmetrical.Stress test showed normal ejection fraction. There was no evidence ofischemia.Recent carotid exam showed stable disease.Electronically Signed:Eren Clark, [facility] 2017 4:23 [facility] Dee Rider MD [facility] OBSOLETEon 06-02-2017 OBSOLETE Refill (AGCARDWST) ----JERMAINE BEGUM ([id number]) 1945 M RDate Time Provider Department06/02/17 EREN CLARK During your visit today, we recorded the following information about you:Austin Morgan RN, RN 06/02/2017 10:02 AM SignedPatient states that prescriptions will be cheaper at [facility].Patient phones requesting refills as follows:Pending Prescriptions Disp Refills ATORVASTATIN 40 MG TABLET 90 tablet 3 Sig: Take 1 tablet by mouth once daily. CHELSEA: No ATENOLOL 25 MG TABLET 45 tablet 3 Sig: Take 0.5 tablets by mouth once daily. CHELSEA: No SPIRONOLACTONE 25 MG TABLET 90 tablet 3 Sig: Take 1 tablet by mouth once daily. CHELSEA: No BENAZEPRIL 20 MG TABLET 90 tablet 3 Sig: Take 1 tablet by mouth once daily. CHELSEA: No CLOPIDOGREL 75 MG TABLET 90 tablet 3 Sig: Take 1 tablet by mouth once daily. CHELSEA: No Please review and advise.Sonya Pradhan has been identified by name and date of : YesPending Prescriptions Disp Refills ATORVASTATIN 40 MG TABLET 90 tablet 3 Sig: Take 1 tablet by mouth once daily. CHELSEA: No ATENOLOL 25 MG TABLET 45 tablet 3 Sig: Take 0.5 tablets by mouth once daily. CHELSEA: No SPIRONOLACTONE 25 MG TABLET 90 tablet 3 Sig: Take 1 tablet by mouth once daily. CHELSEA: No BENAZEPRIL 20 MG TABLET 90 tablet 3 Sig: Take 1 tablet by mouth once daily. CHELSEA: No CLOPIDOGREL 75 MG TABLET 90 tablet 3 Sig: Take 1 tablet by mouth once daily. CHELSEA: NoRX INSTRUCTIONS:Patient aware RX will be sent to pharmacy. No need to notify patient.Tonya Pradhan MD 06/02/2017 11:34 AM SignedThe following approved medication requests have been transmitted electronically.Signed Prescriptions Disp Refills atorvastatin (LIPITOR) 40 mg tablet 90 tablet 3 Sig: Take 1 tablet by mouth once daily. CHELSEA: No Authorizing Provider: EREN CLARK atenolol (TENORMIN) 25 mg tablet 45 tablet 3 Sig: Take 0.5 tablets by mouth once daily. CHELSEA: No Authorizing Provider: EREN CLARK spironolactone (ALDACTONE) 25 mg tablet 90 tablet 3 Sig: Take 1 tablet by mouth once daily. CHELSEA: No Authorizing Provider: EREN CLARK benazepril (LOTENSIN) 20 mg tablet 90 tablet 3 Sig: Take 1 tablet by mouth once daily. CHELSEA: No Authorizing Provider: EREN CLARK clopidogrel (PLAVIX) 75 mg tablet 90 tablet 3 Sig: Take 1 tablet by mouth once daily. CHELSEA: No Authorizing Provider: EREN CLARK MDAdam Gilmor, RN, RN 06/02/2017 2:31 PM Signedescripts confirmedAllergies As of Date: 06/02/2017(No Known Allergies)Date Reviewed: 05/07/2017Reviewed by: Jackie Yin Ma - Fully AssessedReason for Visit: Refill Request [94]Visit Diagnoses:Hypokalemia [E87.6] BENIGN HYPERTENSION [I10]Order(s):atorvastatin (LIPITOR) 40 mg tabletTake 1 tablet by mouth once daily.Disp: 90 tabletRfl: 3 atenolol (TENORMIN) 25 mg tabletTake 0.5 tablets by mouth once daily.Disp: 45 tabletRfl: 3 spironolactone (ALDACTONE) 25 mg tabletTake 1 tablet by mouth once daily.Disp: 90 tabletRfl: 3 benazepril (LOTENSIN) 20 mg tabletTake 1 tablet by mouth once daily.Disp: 90 tabletRfl: 3 clopidogrel (PLAVIX) 75 mg tabletTake 1 tablet by mouth once daily.Disp: 90 tabletRfl: 3Prescriptions as of 06/02/2017 Sig: ATORVASTATIN 40 MG TABLET Take 1 tablet by mouth once d* ATENOLOL 25 MG TABLET Take 0.5 tablets by mouth onc* SPIRONOLACTONE 25 MG TABLET Take 1 tablet by mouth once d* BENAZEPRIL 20 MG TABLET Take 1 tablet by mouth once d* CLOPIDOGREL 75 MG TABLET Take 1 tablet by mouth once d* ISOSORBIDE MONONITRATE ER 30 * Take 1 tablet by mouth once d* NITROGLYCERIN 0.4 MG SUBLINGU* Dissolve 1 tablet under the t* ALLOPURINOL 300 MG TABLET Take 1 tablet by mouth once d* ASPIRIN 325 MG TABLET Take 325 mg by mouth once darlene*Problem List As Of Date 06/02/2017 Noted Resolved MIXED HYPERLIPIDEMIA [E78.2] INVALID FOR* BENIGN HYPERTENSION [I10] INVALID FOR* LOC OSTEOARTH NOS-SHLDER [M19.019] INVALID FOR* GOUT NOS [M10.9] INVALID FOR* CAD (Coronary Artery Disease) [I25.10] Medication Side Effects [T88.7XXA] INVALID FOR* BPH w urinary obs/LUTS [N40.1] INVALID FOR* Elevated PSA [R97.20] INVALID FOR* Gynecomastia [N62] INVALID FOR* Allergic rhinitis [J30.9] INVALID FOR*Prescriptions ordered this encounter Disp Refills Start End ATORVASTATIN 40 MG TABLET 90 t* 3 06/02/2017 Class: [facility] Route: ORAL Sig: Take 1 tablet by mouth once daily. ATENOLOL 25 MG TABLET 45 t* 3 06/02/2017 Class: [facility] Route: ORAL Sig: Take 0.5 tablets by mouth once daily. SPIRONOLACTONE 25 MG TABLET 90 t* 3 06/02/2017 Class: [facility] Route: ORAL Sig: Take 1 tablet by mouth once daily. BENAZEPRIL 20 MG TABLET 90 t* 3 06/02/2017 Class: [facility] Route: ORAL Sig: Take 1 tablet by mouth once daily. CLOPIDOGREL 75 MG TABLET 90 t* 3 06/02/2017 Class: [facility] Route: ORAL Sig: Take 1 tablet by mouth once daily.Medications Discontinued During This Encounter atorvastatin (LIPITOR) 40 mg tablet 90 t* 3 05/04/2017 06/02/2017 Sig: TAKE 1 TABLET DAILY Disc: Reason for discontinue is not on file. atenolol (TENORMIN) 25 mg tablet 45 t* 3 05/03/2017 06/02/2017 Sig: TAKE 1/2 TABLET ONCE DAILY Disc: Reason for discontinue is not on file. spironolactone (ALDACTONE) 25 mg tab* 90 t* 3 03/11/2017 06/02/2017 Class: [facility] Route: ORAL Sig: Take 1 tablet by mouth once daily. Disc: Reason for discontinue is not on file. benazepril (LOTENSIN) 20 mg tablet 90 t* 3 10/04/2016 06/02/2017 Route: ORAL Sig: Take 1 tablet by mouth once daily. Disc: Reason for discontinue is not on file. clopidogrel (PLAVIX) 75 mg tablet 90 t* 3 09/20/2016 06/02/2017 Sig: TAKE 1 TABLET ONCE DAILY Disc: Reason for discontinue is not on file. Status:Closed by AUSTIN MORGAN on 06/02/17 [facility] OBSOLETEon 04-11-2017 OBSOLETE Refill (AGCARDWST) ----JERMAINE BEGUM ([id number]) [address] [facility] Provider Jtsiqbskdv05/27/17 EREN CLARKARDWST During your visit today, we recorded the following information about you:Austin Morgan RN, RN 04/11/2017 11:09 AM SignedPatient phones requesting refills as follows:Pending Prescriptions Disp Refills ISOSORBIDE MONONITRATE ER 30 MG TABLET,EXTENDED RELEASE 24 HR 30 tablet 6 Sig: Take 1 tablet by mouth once daily. Begin at 1/2 tablet daily CHELSEA: No Please review and advise.Sonya Pradhan has been identified by name and date of : YesRX INSTRUCTIONS:Patient aware RX will be sent to pharmacy. No need to notify patient.Tonya Pradhan MD 04/11/2017 11:42 AM SignedThe following approved medication requests have been transmitted electronically.Signed Prescriptions Disp Refills isosorbide mononitrate ER (IMDUR) 30 mg 24 hr tablet 30 tablet 11 Sig: Take 1 tablet by mouth once daily. CHELSEA: No Authorizing Provider: EREN CLARK MDAllergies As of Date: 04/11/2017(No Known Allergies)Date Reviewed: 11/02/2016Reviewed by: Jaylene Smallwood Ma - Fully AssessedReason for Visit: Refill Request [94]Order(s):isosorbide mononitrate ER (IMDUR) 30 mg 24 hr tabletTake 1 tablet by mouth once daily.Disp: 30 tabletRfl: 11Prescriptions as of 04/11/2017 Sig: ISOSORBIDE MONONITRATE ER 30 * Take 1 tablet by mouth once d* SPIRONOLACTONE 25 MG TABLET Take 1 tablet by mouth once d* BENAZEPRIL 20 MG TABLET Take 1 tablet by mouth once d* CLOPIDOGREL 75 MG TABLET TAKE 1 TABLET ONCE DAILY NITROGLYCERIN 0.4 MG SUBLINGU* Dissolve 1 tablet under the t* ATORVASTATIN 40 MG TABLET TAKE 1 TABLET DAILY ATENOLOL 25 MG TABLET Take 0.5 tablets by mouth onc* ALLOPURINOL 300 MG TABLET Take 1 tablet by mouth once d* ASPIRIN 325 MG TABLET Take 325 mg by mouth once darlene*Problem List As Of Date 04/11/2017 Noted Resolved MIXED HYPERLIPIDEMIA [E78.2] INVALID FOR* BENIGN HYPERTENSION [I10] INVALID FOR* LOC OSTEOARTH NOS-SHLDER [M19.019] INVALID FOR* GOUT NOS [M10.9] INVALID FOR* CAD (Coronary Artery Disease) [I25.10] Medication Side Effects [T88.7XXA] INVALID FOR* BPH w urinary obs/LUTS [N40.1] INVALID FOR* Elevated PSA [R97.20] INVALID FOR* Gynecomastia [N62] INVALID FOR* Allergic rhinitis [J30.9] INVALID FOR*Prescriptions ordered this encounter Disp Refills Start End ISOSORBIDE MONONITRATE ER 30 MG TABL* 30 t* 11 04/11/2017 Class: [facility] Route: ORAL Sig: Take 1 tablet by mouth once daily.Medications Discontinued During This Encounter isosorbide mononitrate ER (IMDUR) 30* 30 t* 6 02/25/2017 04/11/2017 Route: ORAL Sig: Take 1 tablet by mouth once daily. Begin at 1/2 tablet daily Disc: Reason for discontinue is not on file. Status:Closed by FAITH BLACKMAN MA on 04/11/17 [facility] OBSOLETEon 03-11-2017 OBSOLETE Refill (AGCARDWST) ----JERMAINE BEGUM ([id number]) 1945 M NFRDate Time Provider Zaoebwalwl23/27/17 EREN CLARK During your visit today, we recorded the following information about you:Faith Blackman MA 03/11/2017 9:53 AM SignedScript [facility].Pending Prescriptions Disp Refills SPIRONOLACTONE 25 MG TABLET 90 tablet 3 Sig: Take 1 tablet by mouth once daily. CHELSEA: No Please review and advise.Sky Peñaloza MD 03/11/2017 2:06 PM SignedThe following approved medication requests have been transmitted electronically.Signed Prescriptions Disp Refills spironolactone (ALDACTONE) 25 mg tablet 90 tablet 3 Sig: Take 1 tablet by mouth once daily. CHELSEA: No Authorizing Provider: EREN CLARK MDAllergies As of Date: 03/11/2017(No Known Allergies)Date Reviewed: 11/02/2016Reviewed by: Jaylene Smallwood Ma - Fully AssessedReason for Visit: Refill Request [94]Visit Diagnoses:Hypokalemia [E87.6] BENIGN HYPERTENSION [I10]Order(s):spironolactone (ALDACTONE) 25 mg tabletTake 1 tablet by mouth once daily.Disp: 90 tabletRfl: 3Prescriptions as of 03/11/2017 Sig: SPIRONOLACTONE 25 MG TABLET Take 1 tablet by mouth once d* ISOSORBIDE MONONITRATE ER 30 * Take 1 tablet by mouth once d* BENAZEPRIL 20 MG TABLET Take 1 tablet by mouth once d* CLOPIDOGREL 75 MG TABLET TAKE 1 TABLET ONCE DAILY NITROGLYCERIN 0.4 MG SUBLINGU* Dissolve 1 tablet under the t* ATORVASTATIN 40 MG TABLET TAKE 1 TABLET DAILY ATENOLOL 25 MG TABLET Take 0.5 tablets by mouth onc* ALLOPURINOL 300 MG TABLET Take 1 tablet by mouth once d* ASPIRIN 325 MG TABLET Take 325 mg by mouth once darlene*Problem List As Of Date 03/11/2017 Noted Resolved MIXED HYPERLIPIDEMIA [E78.2] INVALID FOR* BENIGN HYPERTENSION [I10] INVALID FOR* LOC OSTEOARTH NOS-SHLDER [M19.019] INVALID FOR* GOUT NOS [M10.9] INVALID FOR* CAD (Coronary Artery Disease) [I25.10] Medication Side Effects [T88.7XXA] INVALID FOR* BPH w urinary obs/LUTS [N40.1] INVALID FOR* Elevated PSA [R97.20] INVALID FOR* Gynecomastia [N62] INVALID FOR* Allergic rhinitis [J30.9] INVALID FOR*Prescriptions ordered this encounter Disp Refills Start End SPIRONOLACTONE 25 MG TABLET 90 t* 3 03/11/2017 Class: [facility] Route: ORAL Sig: Take 1 tablet by mouth once daily.Medications Discontinued During This Encounter spironolactone (ALDACTONE) 25 mg tab* 90 t* 3 03/10/2017 03/11/2017 Route: ORAL Sig: Take 1 tablet by mouth once daily. Disc: Reason for discontinue is not on file. Status:Closed by FAITH BLACKMAN MA on 03/11/17 [facility] OBSOLETEon 03-10-2017 OBSOLETE Refill (AGCARDWST) ----JERMAINE BEGUM ([id number]) 1945 M RDate Time Provider Pqribbgqcd23/26/17 EREN CLARK During your visit today, we recorded the following information about you:Faith Blackman MA 03/10/2017 9:05 AM SignedPatient phones requesting refills as follows:Pending Prescriptions Disp Refills SPIRONOLACTONE 25 MG TABLET 90 tablet 3 Sig: Take 1 tablet by mouth once daily. CHELSEA: No Please review and advise.Sky Peñaloza MD 03/10/2017 10:35 AM SignedTime for BMP.Eren Clark MDThe following approved medication requests have been transmitted electronically.Signed Prescriptions Disp Refills spironolactone (ALDACTONE) 25 mg tablet 90 tablet 3 Sig: Take 1 tablet by mouth once daily. CHELSEA: No Authorizing Provider: EREN CLARK MDAmanda Caskey, MA 03/10/2017 10:37 AM SignedPatient notified and verbalized understanding.Faith Blackman MAAllergies As of Date: 03/10/2017(No Known Allergies)Date Reviewed: 11/02/2016Reviewed by: Jaylene Smallwood Ma - Fully AssessedReason for Visit: Refill Request [94]Visit Diagnoses:Hypokalemia [E87.6] BENIGN HYPERTENSION [I10]Order(s):spironolactone (ALDACTONE) 25 mg tabletTake 1 tablet by mouth once daily.Disp: 90 tabletRfl: 3 BASIC METABOLIC PNL [SQBMP] Order #: [id number] FUTUREPrescriptions as of 03/10/2017 Sig: SPIRONOLACTONE 25 MG TABLET Take 1 tablet by mouth once d* ISOSORBIDE MONONITRATE ER 30 * Take 1 tablet by mouth once d* BENAZEPRIL 20 MG TABLET Take 1 tablet by mouth once d* CLOPIDOGREL 75 MG TABLET TAKE 1 TABLET ONCE DAILY NITROGLYCERIN 0.4 MG SUBLINGU* Dissolve 1 tablet under the t* ATORVASTATIN 40 MG TABLET TAKE 1 TABLET DAILY ATENOLOL 25 MG TABLET Take 0.5 tablets by mouth onc* ALLOPURINOL 300 MG TABLET Take 1 tablet by mouth once d* ASPIRIN 325 MG TABLET Take 325 mg by mouth once darlene*Problem List As Of Date 03/10/2017 Noted Resolved MIXED HYPERLIPIDEMIA [E78.2] INVALID FOR* BENIGN HYPERTENSION [I10] INVALID FOR* LOC OSTEOARTH NOS-SHLDER [M19.019] INVALID FOR* GOUT NOS [M10.9] INVALID FOR* CAD (Coronary Artery Disease) [I25.10] Medication Side Effects [T88.7XXA] INVALID FOR* BPH w urinary obs/LUTS [N40.1] INVALID FOR* Elevated PSA [R97.20] INVALID FOR* Gynecomastia [N62] INVALID FOR* Allergic rhinitis [J30.9] INVALID FOR*Prescriptions ordered this encounter Disp Refills Start End SPIRONOLACTONE 25 MG TABLET 90 t* 3 03/10/2017 Route: ORAL Sig: Take 1 tablet by mouth once daily.Medications Discontinued During This Encounter spironolactone (ALDACTONE) 25 mg tab* 90 t* 3 04/01/2016 03/10/2017 Class: [facility] Route: ORAL Sig: Take 1 tablet by mouth once daily. Disc: Reason for discontinue is not on file. Status:Closed by FAITH BLACKMAN MA on 03/10/17 [facility] Vital Signs Date Time Vital Sign Value Performing Clinician Albert mayfield 05-03-2024 11:13-0500 Body height 185.42 cm Yecenia Agrawal MD Work Phone: [facility] 05-03-2024 11:13-0500 Body weight 107.5 kg Yecenia Agrawal MD Work Phone: [facility] 05-02-2024 08:39-0500 Body mass index (BMI) [Ratio] 31.2 kg/m2 Yecenia Agrawal MD Work Phone: [facility] 08-12-2023 11:11-0400 Body height 185.[address] Dee Rider Work Phone: [facility] 08-12-2023 11:11-0400 Body mass index (BMI) [Ratio] 30.6 kg/m2 Dr. Dee Rider Work Phone: [facility] 08-12-2023 11:11-0400 Body weight 105.[address] Dee Rider Work Phone: [facility] 04-04-2023 15:23-0500 Body mass index (BMI) [Ratio] 31 kg/m2 Dr. Dee Rider Work Phone: [facility] 04-04-2023 15:23-0500 Body weight 106.[address] Dee Rider Work Phone: 6(351)891-009394 [place] [address] 04-04-2023 15:20-0500 Body height 185.[address] Dee Rider Work Phone: 8(926)121-881594 [place] [address] 04-04-2023 15:20-0500 Body temperature 98 [degF] Dr. Dee Rider Work Phone: 6(429)652-451056 [place] [address] 04-04-2023 15:20-0500 Diastolic blood pressure 70 mm[Hg] Dr. Dee Rider Work Phone: 7(927)301-865294 [place] [address] 04-04-2023 15:20-0500 Heart rate 60 /min Dr. Dee Rider Work Phone: 0(823)514-478794 [place] [address] 04-04-2023 15:20-0500 Respiratory rate 16 /min Dr. Dee Rider Work Phone: 1(822)551-937194 [place] [address] 04-04-2023 15:20-0500 SaO2% (BldA) [Mass fraction] 99 % Dr. Dee Rider Work Phone: 6(293)880-073194 [place] [address] 04-04-2023 15:20-0500 Systolic blood pressure 125 mm[Hg] Dr. Dee Rider Work Phone: 7(133)484-668794 [place] [address] 01-31-2023 09:54-0400 Body height 185.[address] Dee Rider Work Phone: 8(171)228-996756 [place] [address] 01-31-2023 09:52-0400 Body mass index (BMI) [Ratio] 29.9 kg/m2 Dr. Dee Rider Work Phone: 8(779)161-205856 [place] [address] 01-31-2023 09:52-0400 Body weight 102.[address] Dee Rider Work Phone: 7(018)482-476494 [place] [address] 01-31-2023 09:52-0400 Diastolic blood pressure 74 mm[Hg] Dr. Dee Rider Work Phone: 9(233)360-076694 [place] [address] 01-31-2023 09:52-0400 Heart rate 68 /min Dr. Dee Rider Work Phone: 7(278)785-010756 [place] [address] 01-31-2023 09:52-0400 Respiratory rate 18 /min Dr. Dee Rider Work Phone: [facility] 01-31-2023 09:52-0400 SaO2% (BldA) [Mass fraction] 97 % Dr. Dee Rider Work Phone: [facility] 01-31-2023 09:52-0400 Systolic blood pressure 149 mm[Hg] Dr. Dee Rider Work Phone: [facility] 09-21-2022 09:58-0400 Body temperature 96.6 [degF] Artur Mi MD, MD Work Phone: [facility] 09-21-2022 09:58-0400 Diastolic blood pressure 75 mm[Hg] Artur Mi MD, MD Work Phone: [facility] 09-21-2022 09:58-0400 Heart rate 63 /min Artur Mi MD, MD Work Phone: [facility] 09-21-2022 09:58-0400 SaO2% (BldA) [Mass fraction] 99 % Artur Mi MD, MD Work Phone: [facility] 09-21-2022 09:58-0400 Systolic blood pressure 145 mm[Hg] Artur Mi MD, MD Work Phone: [facility] 09-14-2022 09:41-0400 Body temperature 97.39 [degF] Artur Mi MD, MD Work Phone: [facility] 09-14-2022 09:41-0400 Diastolic blood pressure 65 mm[Hg] Artur Mi MD, MD Work Phone: [facility] 09-14-2022 09:41-0400 Heart rate 76 /min Artur Mi MD, MD Work Phone: [facility] 09-14-2022 09:41-0400 Respiratory rate 15 /min Artur Mi MD, MD Work Phone: [facility] 09-14-2022 09:41-0400 SaO2% (BldA) [Mass fraction] 99 % Artur Mi MD, MD Work Phone: [facility] 09-14-2022 09:41-0400 Systolic blood pressure 138 mm[Hg] Artur Mi MD, MD Work Phone: [facility] 09-07-2022 09:51-0400 Body temperature 97 [degF] Artur Mi MD, MD Work Phone: [facility] 09-07-2022 09:51-0400 Body weight 97.52 kg Artur Mi MD, MD Work Phone: [facility] 09-07-2022 09:51-0400 Diastolic blood pressure 77 mm[Hg] Artur Mi MD, MD Work Phone: [facility] 09-07-2022 09:51-0400 Heart rate 66 /min Artur Mi MD, MD Work Phone: [facility] 09-07-2022 09:51-0400 SaO2% (BldA) [Mass fraction] 100 % Artur Mi MD, MD Work Phone: [facility] 09-07-2022 09:51-0400 Systolic blood pressure 137 mm[Hg] Artur Mi MD, MD Work Phone: [facility] 08-24-2022 10:07-0400 Body temperature 97 [degF] Artur Mi MD, MD Work Phone: [facility] 08-24-2022 10:07-0400 Diastolic blood pressure 74 mm[Hg] Artur Mi MD, MD Work Phone: [facility] 08-24-2022 10:07-0400 Heart rate 77 /min Artur Mi MD, MD Work Phone: [facility] 08-24-2022 10:07-0400 Respiratory rate 16 /min Artur Mi MD, MD Work Phone: [facility] 08-24-2022 10:07-0400 SaO2% (BldA) [Mass fraction] 99 % Artur Mi MD, MD Work Phone: [facility] 08-24-2022 10:07-0400 Systolic blood pressure 138 mm[Hg] Artur Mi MD, MD Work Phone: [facility] 06-07-2022 09:45-0500 Diastolic blood pressure 70 mm[Hg] Artur Mi MD, MD Work Phone: [facility] 06-07-2022 09:45-0500 Heart rate 88 /min Artur Mi MD, MD Work Phone: [facility] 06-07-2022 09:45-0500 Systolic blood pressure 126 mm[Hg] Artur Mi MD, MD Work Phone: [facility] 06-07-2022 09:37-0500 Body temperature 97 [degF] Artur Mi MD, MD Work Phone: [facility] 06-07-2022 09:37-0500 Body weight 106.14 kg Artur Mi MD, MD Work Phone: [facility] 06-07-2022 09:37-0500 Respiratory rate 16 /min Artur Mi MD, MD Work Phone: [facility] 06-07-2022 09:37-0500 SaO2% (BldA) [Mass fraction] 99 % Artur Mi MD, MD Work Phone: [facility] 05-20-2022 16:27-0500 Body weight 104.24 kg Dee Rider MD Work Phone: [facility] 05-20-2022 16:27-0500 Diastolic blood pressure 72 mm[Hg] Dee Rider MD Work Phone: [facility] 05-20-2022 16:27-0500 Heart rate 78 /min Dee Rider MD Work Phone: [facility] 05-20-2022 16:27-0500 Respiratory rate 16 /min Dee Rider MD Work Phone: [facility] 05-20-2022 16:27-0500 Systolic blood pressure 130 mm[Hg] Dee Rider MD Work Phone: [facility] 03-09-2022 13:12-0400 Body height 185.4 cm Rubén Alves PA-C Work Phone: [facility] 03-09-2022 13:12-0400 Body temperature 98.01 [degF] Rubén Alves PA-C Work Phone: [facility] 03-09-2022 13:12-0400 Body weight 99.34 kg Rubén Alves PA-C Work Phone: [facility] 03-09-2022 13:12-0400 Diastolic blood pressure 74 mm[Hg] Rubén Alves PA-C Work Phone: [facility] 03-09-2022 13:12-0400 Heart rate 86 /min Rubén Alves PA-C Work Phone: [facility] 03-09-2022 13:12-0400 Respiratory rate 16 /min Rubén Alves PA-C Work Phone: [facility] 03-09-2022 13:12-0400 SaO2% (BldA) [Mass fraction] 98 % Rubén Alves PA-C Work Phone: [facility] 03-09-2022 13:12-0400 Systolic blood pressure 114 mm[Hg] Rubén Alves PA-C Work Phone: [facility] 02-13-2022 01:37-0400 Body weight 98.[address] Dee Rider Work Phone: [facility] Work Phone: 02-11-2022 10:03-0400 Body height 185.[address] Dee Rider Work Phone: [facility] Work Phone: 02-11-2022 10:03-0400 Body mass index (BMI) [Ratio] 28.5 kg/m2 Dr. Dee Rider Work Phone: [facility] Work Phone: 02-11-2022 10:03-0400 Body weight 97.[address] Dee Rider Work Phone: [facility] Work Phone: 02-11-2022 10:03-0400 Diastolic blood pressure 54 mm[Hg] Dr. Dee Rider Work Phone: [facility] Work Phone: 02-11-2022 10:03-0400 Heart rate 81 /min Dr. Dee Rider Work Phone: [facility] Work Phone: 02-11-2022 10:03-0400 Respiratory rate 16 /min Dr. Dee Rider Work Phone: [facility] Work Phone: 02-11-2022 10:03-0400 Systolic blood pressure 109 mm[Hg] Dr. Dee Rider Work Phone: [facility] Work Phone: 01-22-2022 11:22-0400 Body weight 98.[address] Dee Rider Work Phone: [facility] Work Phone: 12-30-2021 14:06-0400 Body temperature 97 [degF] Marie Beavers MD Work Phone: [facility] 12-30-2021 14:06-0400 Body weight 98.39 kg Marie Beavers MD Work Phone: [facility] 12-30-2021 14:06-0400 Diastolic blood pressure 69 mm[Hg] Marie Beavers MD Work Phone: [facility] 12-30-2021 14:06-0400 Heart rate 91 /min Marie Beavers MD Work Phone: [facility] 12-30-2021 14:06-0400 Respiratory rate 20 /min Marie Beavers MD Work Phone: [facility] 12-30-2021 14:06-0400 Systolic blood pressure 133 mm[Hg] Marie Beavers MD Work Phone: [facility] 12-23-2021 14:56-0400 Body height 185.[address] Dee Rider Work Phone: [facility] Work Phone: 12-23-2021 14:56-0400 Body weight 98.[address] Dee Rider Work Phone: [facility] Work Phone: 12-23-2021 14:22-0400 Body mass index (BMI) [Ratio] 27.4 kg/m2 Dr. Dee Rider Work Phone: [facility] Work Phone: 12-23-2021 14:22-0400 Body temperature 97.5 [degF] Dr. Dee Rider Work Phone: [facility] Work Phone: 12-23-2021 14:22-0400 Diastolic blood pressure 63 mm[Hg] Dr. Dee Rider Work Phone: [facility] Work Phone: 12-23-2021 14:22-0400 Heart rate 86 /min Dr. Dee Rider Work Phone: [facility] Work Phone: 12-23-2021 14:22-0400 Respiratory rate 14 /min Dr. Dee Rider Work Phone: [facility] Work Phone: 12-23-2021 14:22-0400 SaO2% (BldA) [Mass fraction] 97 % Dr. Dee Rider Work Phone: [facility] Work Phone: 12-23-2021 14:22-0400 Systolic blood pressure 100 mm[Hg] Dr. Dee Rider Work Phone: [facility] Work Phone: 11-17-2021 12:55-0400 Body height 185.4 cm Pacc 3 Work Phone: [facility] 11-17-2021 12:55-0400 Body temperature 96.8 [degF] Pacc 3 Work Phone: [facility] 11-17-2021 12:55-0400 Body weight 97.48 kg Pacc 3 Work Phone: [facility] 11-17-2021 12:55-0400 Diastolic blood pressure 76 mm[Hg] Pacc 3 Work Phone: [facility] 11-17-2021 12:55-0400 Heart rate 88 /min Pacc 3 Work Phone: [facility] 11-17-2021 12:55-0400 SaO2% (BldA) [Mass fraction] 100 % Pacc 3 Work Phone: [facility] 11-17-2021 12:55-0400 Systolic blood pressure 135 mm[Hg] Pacc 3 Work Phone: [facility] 11-17-2021 10:58-0400 Body height 185 cm Chelita Loboda SIEVE REPAIRER.GROUT MACHINE TENDER Work Phone: [facility] 11-17-2021 10:58-0400 Body weight 92.99 kg Chelita Loboda SIEVE REPAIRER.GROUT MACHINE TENDER Work Phone: [facility] 11-17-2021 10:58-0400 Diastolic blood pressure 81 mm[Hg] Chelita Loboda SIEVE REPAIRER.GROUT MACHINE TENDER Work Phone: [facility] 11-17-2021 10:58-0400 Heart rate 102 /min Chelita Loboda SIEVE REPAIRER.GROUT MACHINE TENDER Work Phone: [facility] 11-17-2021 10:58-0400 Systolic blood pressure 149 mm[Hg] Chelita Loboda SIEVE REPAIRER.GROUT MACHINE TENDER Work Phone: [facility] 10-29-2021 13:11-0400 Body mass index (BMI) [Ratio] 28.6 kg/m2 Dr. Dee Rider Work Phone: [facility] Work Phone: 10-29-2021 13:11-0400 Body weight 98.[address] Dee Rider Work Phone: [facility] Work Phone: 10-29-2021 13:11-0400 Diastolic blood pressure 63 mm[Hg] Dr. Dee Rider Work Phone: [facility] Work Phone: 10-29-2021 13:11-0400 Heart rate 86 /min Dr. Dee Rider Work Phone: [facility] Work Phone: 10-29-2021 13:11-0400 Respiratory rate 16 /min Dr. Dee Rider Work Phone: [facility] Work Phone: 10-29-2021 13:11-0400 Systolic blood pressure 100 mm[Hg] Dr. Dee Rider Work Phone: [facility] Work Phone: 10-13-2021 14:34-0400 Body height 185 cm Andegoni Sandalakis SIEVE REPAIRER.GROUT MACHINE TENDER Work Phone: [facility] 10-13-2021 14:34-0400 Body temperature 98.4 [degF] Andegoni Sandalakis SIEVE REPAIRER.GROUT MACHINE TENDER Work Phone: [facility] 10-13-2021 14:34-0400 Body weight 100.2 kg Andegoni Sandalakis SIEVE REPAIRER.GROUT MACHINE TENDER Work Phone: [facility] 10-13-2021 14:34-0400 Diastolic blood pressure 74 mm[Hg] Andegoni Sandalakis SIEVE REPAIRER.GROUT MACHINE TENDER Work Phone: [facility] 10-13-2021 14:34-0400 Heart rate 85 /min Andegoni Sandalakis SIEVE REPAIRER.GROUT MACHINE TENDER Work Phone: [facility] 10-13-2021 14:34-0400 Respiratory rate 12 /min Andegoni Sandalakis SIEVE REPAIRER.GROUT MACHINE TENDER Work Phone: [facility] 10-13-2021 14:34-0400 SaO2% (BldA) [Mass fraction] 100 % Andegoni Sandalakis SIEVE REPAIRER.GROUT MACHINE TENDER Work Phone: [facility] 10-13-2021 14:34-0400 Systolic blood pressure 136 mm[Hg] Andegoni Sandalakis SIEVE REPAIRER.GROUT MACHINE TENDER Work Phone: [facility] 10-09-2021 16:56-0400 Body weight 98.88 kg Diamond Damon MD Work Phone: [facility] 09-29-2021 11:04-0400 Body height 185 cm [facility] Work Phone: [facility] 09-29-2021 11:04-0400 Body temperature 97.7 [degF] [facility] Work Phone: [facility] 09-29-2021 11:04-0400 Body weight 106.7 kg [facility] Work Phone: [facility] 09-29-2021 11:04-0400 Diastolic blood pressure 69 mm[Hg] [facility] Work Phone: [facility] 09-29-2021 11:04-0400 Heart rate 49 /min [facility] Work Phone: [facility] 09-29-2021 11:04-0400 SaO2% (BldA) [Mass fraction] 98 % [facility] Work Phone: [facility] 09-29-2021 11:04-0400 Systolic blood pressure 129 mm[Hg] [facility] Work Phone: [facility] 08-31-2021 16:59-0400 Diastolic blood pressure 74 mm[Hg] Bandar Soria DO Work Phone: [facility] 08-31-2021 16:59-0400 SaO2% (BldA) [Mass fraction] 99 % Bandar Soria DO Work Phone: [facility] 08-31-2021 16:59-0400 Systolic blood pressure 151 mm[Hg] Bandar Soria DO Work Phone: [facility] 08-26-2021 15:56-0400 Diastolic blood pressure 72 mm[Hg] Marie Bautista MD Work Phone: [facility] 08-26-2021 15:56-0400 Systolic blood pressure 128 mm[Hg] Marie Bautista MD Work Phone: [facility] 08-26-2021 15:52-0400 Body height 185.4 cm Marie Bautista MD Work Phone: [facility] 08-26-2021 15:52-0400 Body weight 99.34 kg Marie Bautista MD Work Phone: [facility] 08-26-2021 15:52-0400 Heart rate 65 /min Marie Bautista MD Work Phone: [facility] 08-26-2021 15:52-0400 Respiratory rate 18 /min Marie Bautista MD Work Phone: [facility] 08-26-2021 15:52-0400 SaO2% (BldA) [Mass fraction] 98 % Marie Bautista MD Work Phone: [facility] 08-06-2021 16:14-0400 Body height 185.[address] Dee Rider Work Phone: [facility] Work Phone: 08-06-2021 16:14-0400 Body mass index (BMI) [Ratio] 30.7 kg/m2 Dr. Dee Rider Work Phone: [facility] Work Phone: 08-06-2021 16:14-0400 Body weight 105.[address] Dee Rider Work Phone: [facility] Work Phone: 08-06-2021 16:14-0400 Diastolic blood pressure 66 mm[Hg] Dr. Dee Rider Work Phone: [facility] Work Phone: 08-06-2021 16:14-0400 Heart rate 60 /min Dr. Dee Rider Work Phone: [facility] Work Phone: 08-06-2021 16:14-0400 Respiratory rate 16 /min Dr. Dee Rider Work Phone: [facility] Work Phone: 08-06-2021 16:14-0400 SaO2% (BldA) [Mass fraction] 97 % Dr. Dee Rider Work Phone: [facility] Work Phone: 08-06-2021 16:14-0400 Systolic blood pressure 111 mm[Hg] Dr. Dee Rider Work Phone: [facility] Work Phone: Encounters Encounter Date Encounter Type Care Provider Facility Start: 10-23-2024 End: 10-24-[address] GRISELDA LYNCH MD Facility:[facility] Start: 10-23-2024 End: 10-24-[address] GRISELDA LYNCH MD [facility] Start: 09-24-2024 ambulatory YECENIA AGRAWAL MD Facility :[facility] Start: 08-29-2024 End: 08-29-[address] GRISELDA LYNCH MD Facility:[facility] Start: 08-29-2024 End: 08-29-[address] GRISELDA LYNCH MD Facility:[facility] Start: 08-28-2024 End: 08-28-2024 ambulatory Yecenia Agrawal MD Work Phone: [facility] Work Phone: Start: 08-28-2024 End: 08-28-[address] Yecenia Agrawal MD -Laboratory, [facility] Start: 08-28-2024 End: 08-28-2024 ambulatory Chalsyl Tanja Facility:[facility] Start: 08-21-2024 End: 08-21-2024 ambulatory MARIE BEAVERS Facility:[facility] Start: 06-26-2024 End: 07-03-2024 ambulatory Marie Beavers MD Work Phone: Hematology/Oncology Comment on above: [facility] Start: 06-18-2024 End: 06-18-2024 ambulatory MARIE BEAVERS Facility:[facility] Start: 06-18-2024 End: 06-18-2024 Subsequent hospital visit by physician [facility] Comment on above: Prostate cancer (HCC ) [C61] Start: 06-07-2024 End: 06-08-2024 Telephone encounter Francheska Cheung RN Hematology/Oncology Comment on above: [facility] Pet Request Start: 05-25-2024 End: 05-26-2024 ambulatory Marie Beavers MD Work Phone: Hematology/Oncology Comment on above: Prostate cancer (HCC ) (Primary Dx) Start: 05-25-2024 End: 05-25-2024 Telemedicine consultation with patient Marie Beavers MD Work Phone: Hematology/Oncology Start: 05-23-2024 End: 05-23-2024 ambulatory MARIE BEAVERS Facility:[facility] Start: 05-03-2024 End: 05-03-2024 Admission to same day surgery center Dr. Junior Johnson MD -[employer] Information Clerk/Special Procedures Work Phone: Start: 05-03-2024 End: 05-03-2024 ambulatory Yecenia Agrawal Facility:[facility] Start: 04-27-2024 ambulatory Yecenia Agrawal Facility:[facility] Start: 04-23-2024 ambulatory Junior Johnson Facility:[facility] Start: 04-23-2024 End: 04-23-2024 ambulatory Junior Johnson Facility:[facility] Start: 03-27-2024 End: 03-27-2024 ambulatory [facility] Facility:[facility] Start: 02-16-2024 End: 02-16-2024 ambulatory Dee Augusta [facility] Facility:[facility] Start: 11-03-2023 ambulatory Dee burch MD Work Phone: [facility] Comment on above: Cancel Appt. Start: 10-29-2023 End: 10-29-2023 ambulatory Yecenia Agrawal Facility:[facility] Start: 10-20-2023 Telephone encounter Dee vega MD Work Phone: [facility] Comment on above: Results Start: 09-15-2023 End: 09-15-2023 ambulatory [facility] Facility:[facility] Start: 09-02-2023 End: 09-02-[address] Dee Rider Work Phone: [facility] Work Phone: Start: 09-02-2023 End: 09-02-[address] Dee Rider Work Phone: [facility]-Laboratory Work Phone: Start: 08-26-2023 End: 08-26-[address] Dee Rider Work Phone: [facility] Work Phone: Start: 08-24-2023 End: 08-24-[address] Dee Rider Work Phone: [facility] Work Phone: Start: 08-24-2023 End: 08-24-[address] Dee Rider Work Phone: [facility] Work Phone: Start: 08-17-2023 End: 08-17-2023 ambulatory Marie Beavers MD Work Phone: Hematology/Oncology Comment on above: Prostate cancer (HCC ) (Primary Dx) Start: 08-17-2023 End: 08-17-2023 Telemedicine consultation with patient Marie Beavers MD Work Phone: [facility] Start: 08-12-2023 End: 08-12-[address] Dee Rider Work Phone: [facility] Work Phone: Start: 04-04-2023 End: 04-04-2023 Emergency department patient visit Dr. Dee Rider Work Phone: [facility]-Emergency Department Work Phone: Start: 04-04-2023 ambulatory Dee burch MD Work Phone: [facility] [place] Comment on above: Back Pain Start: 04-01-2023 End: 04-01-[address] Dee Rider Work Phone: [facility] Work Phone: Start: 04-01-2023 End: 04-01-[address] Dee Rider Work Phone: [facility]-Laboratory Work Phone: Start: 02-10-2023 End: 02-10-2023 ambulatory Marie Beavers MD Work Phone: Hematology/Oncology Comment on above: Prostate CA (HCC) (P rimary Dx) Start: 02-10-2023 End: 02-10-2023 Telemedicine consultation with patient Marie Beavers MD Work Phone: [facility] Start: 01-31-2023 End: 01-31-[address] Dee Rider Work Phone: [facility] Work Phone: Start: 01-28-2023 End: 01-28-[address] Dee Rider Work Phone: [facility] Work Phone: Start: 01-28-2023 End: 01-28-[address] Dee Rider Work Phone: [facility]-Laboratory Work Phone: Start: 11-11-2022 End: 11-11-2022 Follow-up encounter Artur Mi MD Work Phone: Radiation Oncology Comment on above: Radiotherapy follow- up (Primary Dx); Prostate cancer (HCC) Start: 11-11-2022 End: 11-11-2022 Telemedicine consultation with patient Artur Mi MD, MD Work Phone: [facility] Start: 10-15-2022 ambulatory Dee burch MD Work Phone: [facility] Start: 10-15-2022 Patient encounter procedure Dee Rider MD Work Phone: [facility] Comment on above: Blood Test and Offic e Visit Start: 10-13-2022 ambulatory Artur Mi MD Work Phone: Radiation Oncology Comment on above: Patient Education (C ompleted radiation) Start: 10-13-2022 Patient encounter procedure Artur Mi MD, MD Work Phone: [facility] Start: 10-13-2022 Radiation Oncology Note Mary Anne Mi MD Work Phone: Radiation Oncology Comment on above: Completion Note Start: 10-12-2022 ambulatory Katie Marley Work Phone: Radiation Oncology Comment on above: Patient Update Start: 09-21-2022 End: 09-21-2022 Patient encounter procedure Artur Mi MD Work Phone: Radiation Oncology Comment on above: Prostate cancer (HCC ) (Primary Dx); Chronic bronchitis, unspecified chronic bronchitis type (HCC) Start: 09-15-2022 ambulatory Artur Mi MD Work Phone: Radiation Oncology Comment on above: Patient Update Start: 09-14-2022 End: 09-14-2022 Patient encounter procedure Artur Mi MD Work Phone: Radiation Oncology Comment on above: Prostate cancer (HCC ) (Primary Dx) Start: 09-13-2022 ambulatory Artur Mi MD Work Phone: Radiation Oncology Comment on above: Patient Update Start: 09-10-2022 ambulatory Artur Mi MD Work Phone: Radiation Oncology Comment on above: Patient Update Start: 09-09-2022 ambulatory Artur Mi MD Work Phone: Radiation Oncology Comment on above: Patient Update Start: 09-08-2022 ambulatory Artur Mi MD Work Phone: Radiation Oncology Comment on above: Patient Update Start: 09-07-2022 End: 09-07-2022 Patient encounter procedure Artur Mi MD Work Phone: Radiation Oncology Comment on above: Prostate cancer (HCC ) (Primary Dx) Start: 09-03-2022 ambulatory Artur Mi MD Work Phone: Radiation Oncology Comment on above: Constipation Start: 09-02-2022 ambulatory Artur Mi MD Work Phone: Radiation Oncology Comment on above: Constipation Start: 08-27-2022 ambulatory Artur Mi MD Work Phone: Radiation Oncology Comment on above: Patient Education (c onstipation) Start: 08-25-2022 Nursing evaluation o f patient and report Artur Mi MD Work Phone: Radiation Oncology Comment on above: Prostate cancer (HCC ) (Primary Dx) Start: 08-24-2022 ambulatory Dee burch MD Work Phone: Internal Medicine [facility] Start: 08-24-2022 End: 08-24-2022 Nursing evaluation of patient and report Nurse [facility]rol [facility] Work Phone: Urology Comment on above: Malignant neoplasm o f prostate (HCC) (Primary Dx) Start: 08-24-2022 End: 08-24-2022 Patient encounter procedure Artur Mi MD Work Phone: Radiation Oncology Comment on above: Prostate cancer (HCC ) (Primary Dx) Start: 08-17-2022 End: 08-17-2022 ambulatory Jacquelyn Heller PT Work Phone: [facility] Comment on above: RICARDO (stress urinary incontinence), male (Primary Dx); Prostate cancer (HCC) Start: 08-16-2022 ambulatory Artur Mi MD Work Phone: Radiation Oncology Comment on above: August 23 Radiation f or D. Charlyvianey ? Start: 08-13-2022 Patient encounter procedure Corby Elliott MD Work Phone: [facility] Start: 08-13-2022 Radiation Oncology Note Corby Elliott MD Work Phone: Radiation Oncology Comment on above: Simulation Note Treatment Planning Start: 08-10-2022 Telephone encounter Rubén floyd PA-C Work Phone: Urology Comment on above: Patient Question Start: 08-09-2022 Patient encounter procedure Corby Elliott MD Work Phone: [facility] Start: 08-09-2022 Radiation Oncology Note Corby Elliott MD Work Phone: Radiation Oncology Comment on above: Simulation Note Start: 08-03-2022 End: 08-03-2022 ambulatory Jacquelyn Heller PT Work Phone: [facility] Comment on above: RICARDO (stress urinary incontinence), male (Primary Dx); Prostate cancer (HCC) Start: 08-02-2022 Orders Only Artur Mi MD Work Phone: Radiation Oncology Comment on above: Prostate cancer (HCC ) (Primary Dx) Start: 06-11-2022 End: 06-11-2022 ambulatory Marie Beavers MD Work Phone: Hematology/Oncology Comment on above: Prostate cancer (HCC ) (Primary Dx) Start: 06-11-2022 End: 06-11-2022 Telemedicine consultation with patient Marie Beavers MD Work Phone: [facility] Start: 06-07-2022 End: 06-07-2022 Patient encounter procedure Artur Mi MD Work Phone: Radiation Oncology Comment on above: Prostate cancer (HCC ) (Primary Dx) Start: 06-04-2022 End: 06-04-2022 ambulatory Jacquelyn Heller PT Work Phone: [facility] Comment on above: Prostate cancer (HCC ) (Primary Dx); RCIARDO (stress urinary incontinence), male; Muscle weakness Start: 06-03-2022 ambulatory Dee burch MD Work Phone: [facility] Comment on above: Do We Need Blood Janice t? 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 Start: 04-26-2022 Telephone encounter Rubén floyd PA-C Work Phone: Urology Comment on above: Orders Start: 04-22-2022 ambulatory Arely Carreno RN [facility] Comment on above: Rx for Cirilo Begum Start: 04-13-2022 Telephone encounter Rubén CALDERONC Work Phone: Urology Comment on above: Orders Start: 04-06-2022 ambulatory Arielle Stanton Research Coordinator [facility] Start: 03-09-2022 End: 03-09-2022 Patient encounter procedure Rubén Alves PA-C Work Phone: Urology Comment on above: Urinary incontinence , unspecified type (Primary Dx); Malignant neoplasm of prostate (HCC); Erectile dysfunction following radical prostatectomy Start: 03-04-2022 End: 03-04-2022 ambulatory Marie Beavers MD Work Phone: Hematology/Oncology Comment on above: Prostate cancer (HCC ) (Primary Dx) Start: 03-04-2022 End: 03-04-2022 Telemedicine consultation with patient Marie Beavers MD Work Phone: [facility] Start: 02-22-2022 End: 03-15-[address] Dee Rider Work Phone: [facility] Work Phone: Start: 02-22-2022 End: 03-15-[address] Dee Rider Work Phone: [facility] Start: 02-12-2022 End: 02-12-[address] Dee Rider Work Phone: [facility] Start: 02-11-2022 End: 02-11-[address] Dee Rider Work Phone: [facility] Start: 02-04-2022 ambulatory Rubén Alves PA-C Work Phone: Urology Comment on above: Lack of Bladder Cont rol Start: 01-26-2022 [facility] Comment on above: Population Health Na vigation Outreach (Diabetes Management) Start: 01-13-2022 End: 01-13-[address] Dee Rider Work Phone: [facility] Work Phone: Start: 01-13-2022 End: 01-13-[address] Dee Rider Work Phone: [facility] Start: 01-01-2022 End: 01-01-2022 ambulatory Charley Gonzalez RN NURSE CONFERENCE CENTER COORDINATOR Comment on above: Information Prostate cancer (HCC ) (Primary Dx); RICARDO (stress urinary incontinence), male; Erectile dysfunction following radical prostatectomy Start: 01-01-2022 End: 01-01-2022 Telemedicine consultation with patient Diamond Damon MD Work Phone: [facility] Start: 12-30-2021 End: 12-30-2021 ambulatory Marie Beavers MD Work Phone: Hematology/Oncology Comment on above: Prostate CA (HCC) (P rimary Dx) Start: 12-30-2021 End: 12-30-2021 Patient encounter procedure Marie Beavers MD Work Phone: [facility] Start: 12-28-[address] [facility] Start: 12-23-2021 Telephone encounter Dee evga MD Work Phone: [facility] Comment on above: Lab Orders Start: 12-23-2021 End: 12-23-[address] [facility] Start: 12-12-2021 Non-patient / Non-visit Dr. Janice Rider Work Phone: [facility] Start: 12-09-2021 Telephone encounter Ginger Mccain Urological & Comment on above: Returning Patient's Call Start: 12-02-2021 Telephone encounter Dee vega MD Work Phone: [facility] Comment on above: Gout flare up Start: 11-25-2021 Orders Only Debbie bolaños APRN.CNP Work Phone: Urology Comment on above: Prostate cancer (HCC ) (Primary Dx) Start: 11-24-2021 End: 11-24-2021 ambulatory Diamond Damon MD Work Phone: Urology Comment on above: Prostate cancer (HCC ) (Primary Dx) Start: 11-24-2021 End: 11-24-2021 Telemedicine consultation with patient Diamond Damon MD Work Phone: [facility] Start: 11-17-2021 End: 11-17-2021 ambulatory Pacc Main 3 Work Phone: Pre Anesthesia Comment on above: Pre-op evaluation (P rimary Dx); Malignant neoplasm of prostate (HCC) Start: 11-17-2021 End: 11-17-2021 Admission to [facility] Pac Main 3 Work Phone: [facility] Start: 11-17-2021 End: 11-17-2021 Preprocedural examination done Pac Main 3 Work Phone: Pre Anesthesia Start: 11-17-2021 End: 11-17-2021 Patient encounter procedure Chelita Keane APRN.GROUT MACHINE TENDER Work Phone: Urology Comment on above: Malignant neoplasm o f prostate (HCC) (Primary Dx) Start: 11-11-2021 Orders Only Shree Marley Work Phone: Cardiology Comment on above: Sinus bradycardia (P rimary Dx) Received Outside [facility] Start: 11-04-2021 Patient Outreach Clarke garza RN Work Phone: [employer] Management Comment on above: Transition Of Care ( TCM f/u [facility] Discharge 10/06/21) Start: 10-30-2021 Telephone encounter Mauricio Riley MD Work Phone: Cardiology Comment on above: Post Dc Program Call - Needs Attn Start: 10-29-2021 End: 10-29-[address] Dee Rider Work Phone: [facility] Start: 10-25-2021 Patient Outreach Clarke garza RN Work Phone: [employer] Management Comment on above: Transition Of Care ( TCM f/u [facility] Discharge 10/06/21) Start: 10-21-2021 Telephone encounter Moe Bautista MD Work Phone: Cardiology Comment on above: Received Outside [facility] Records ([facility]); Appointment (EP) Start: 10-14-2021 Telephone encounter Rubén floyd PA-C Work Phone: Urology Comment on above: Orders Start: 10-14-2021 End: 10-14-[address] Dee Rider Work Phone: [facility]/Neurology Start: 10-13-2021 End: 10-13-2021 Patient encounter procedure Debbie Rivas APRN.GROUT MACHINE TENDER Work Phone: Cardiothoracic Comment on above: S/P CABG (coronary a rtery bypass graft) (Primary Dx); S/P Maze operation for atrial fibrillation Start: 10-13-2021 End: 10-13-2021 Subsequent hospital visit by physician Xr Chest Main J1 Work Phone: Radiology Comment on above: Surgery follow-up [Z 09] Start: 10-10-2021 Non-patient / Non-visit Dr. Janice Rider Work Phone: [facility] Start: 10-09-2021 End: 10-09-2021 ambulatory Diamond Damon MD Work Phone: Urology Comment on above: Malignant neoplasm o f prostate (HCC) (Primary Dx) Start: 10-09-2021 End: 10-09-2021 Telemedicine consultation with patient Diamond Damon MD Work Phone: [facility] Start: 10-07-2021 Patient Outreach Clarke garza RN Work Phone: [employer]r Management Comment on above: Transition Of Care ( TCM Initial [facility] Discharge 10/06/21) Follow Up Phone Call (Rc f/u call first attempt) Transition Of Care ( Pharmacy - Hospital Discharge 10/06/2021) Start: 09-29-2021 ambulatory Liz Davey APRN.GROUT MACHINE TENDER Work Phone: Cardiothoracic Comment on above: Patient Education Start: 09-29-2021 End: 09-29-2021 Admission to same day surgery center Anesthesia Clearance Work Phone: Cardiothoracic Start: 09-29-2021 End: 09-29-2021 Patient encounter procedure Anesthesia Clearance Work Phone: Cardiothoracic Comment on above: Encounter for preope rative anesthesiology assessment for cardiac surgery (Primary Dx) Atherosclerosis (Reymundo myrna Dx) Pre-op testing (Prim danii Dx); Discharge planning issues Typical atrial flutt er (HCC) (Primary Dx); 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); Atrial fibrillation, unspecified type (HCC); Prostate cancer (HCC); Hyperlipidemia, unspecified hyperlipidemia type; Primary hypertension; Pre-operative cardiovascular examination Start: 09-29-2021 End: 09-29-2021 Patient encounter status Mauricio Riley MD Work Phone: [facility] Work Phone: Start: 09-28-2021 End: 09-28-2021 ambulatory Ginger Finn RN Pulmonary Medicine Comment on above: Spirometry Start: 09-28-2021 End: 09-28-2021 Patient encounter procedure Pulm Fct Lab J-2 [facility] Start: 09-28-2021 End: 09-28-2021 Patient encounter status Pulm J-2 Pulmonary Medic ine Start: 09-23-2021 End: 09-23-2021 Subsequent hospital visit by physician Mri Radio [facility] (I-Stat/1.5t) Work Phone: Radiology Comment on above: 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 Janice Rider Work Phone: [facility] Start: 09-03-2021 Patient encounter status Wai Riley MD Work Phone: Cardiothoracic Start: 09-03-2021 Telephone encounter Mauricio Riley MD Work Phone: Cardiothoracic Comment on above: Schedule Surgery (Pr e-op Checklist) Start: 09-02-2021 End: 09-02-2021 Patient encounter procedure Debbie Morrow APRN.GROUT MACHINE TENDER Work Phone: Urology Comment on above: APPOINTMENT CANCELLE D (Primary Dx) Start: 09-02-2021 Telephone encounter Mauricio Riley MD Work Phone: Cardiothoracic Comment on above: Insurance Authorizat ion Start: 09-01-2021 Orders Only Debbie bolaños SIEVE REPAIRER.GROUT MACHINE TENDER Work Phone: Urology Comment on above: Prostate cancer (HCC ) (Primary Dx) Returning Patient's Call Start: 08-31-2021 End: 08-31-2021 Patient encounter procedure Bandar Soria DO Work Phone: Cardiology Comment on above: Abnormal stress test (Primary Dx); Coronary artery disease involving pilot point coronary artery of pilot point heart without angina pectoris; Elevated prostate specific antigen (PSA); Hypertension goal BP (blood pressure) < 140/80; Prostate cancer (HCC); Elevated PSA; Mixed hyperlipidemia Start: 08-30-2021 Telephone encounter Moe Bautista MD Work Phone: Cardiology Comment on above: Patient Education Start: 08-28-2021 Orders Only Marie hdz MD Work Phone: Cardiology Comment on above: Essential hypertensi on, benign (Primary Dx) Start: 08-27-2021 Refill Marie hdz MD Work Phone: Cardiology Comment on above: Refill Request Start: 08-26-2021 End: 08-26-2021 Patient encounter procedure Marie Bautista MD Work Phone: Cardiology Comment on above: Abnormal stress test (Primary Dx); Coronary artery disease involving pilot point coronary artery of pilot point heart without angina pectoris; Presence of drug coated stent in left circumflex coronary artery; Hyperlipidemia LDL goal <70; Hypertension goal BP (blood pressure) < 140/80 Start: 08-26-2021 End: 08-26-[address] Dee Rider Work Phone: [facility]Pre[facility]Admission [facility] Start: 08-25-2021 Orders Only Marie hdz MD Work Phone: Cardiology Comment on above: Essential hypertensi on, benign (Primary Dx); Coronary artery disease involving pilot point heart without angina pectoris, unspecified vessel or lesion type; Mixed hyperlipidemia; Controlled type 2 diabetes mellitus without complication, without long-term current use of insulin (HCC) Future Appointment Start: 08-24-2021 Telephone encounter Tima Murray MD Work Phone: Urology Comment on above: Patient Question Start: 08-20-2021 Non-patient / Non-visit Dr. Janice Rider Work Phone: [facility] Start: 08-20-2021 End: 08-20-[address] Dee Rider Work Phone: [facility] Start: 08-17-2021 End: 08-17-2021 ambulatory Quentin Hampton MD Work Phone: Radiation Oncology Comment on above: Prostate cancer (HCC ); Abnormal findings on diagnostic imaging of other parts of musculoskeletal system Start: 08-17-2021 End: 08-17-2021 Telemedicine consultation with patient Quentin Hampton MD Work Phone: [facility] Start: 08-06-[address] Inés Rider Work Phone: [facility] Start: 08-06-2021 End: 08-06-2021 Admission to same day surgery center Dr. Dee Rider Work Phone: [facility] Start: 08-06-2021 End: 08-06-[address] Dee Rider Work Phone: [facility] Start: 08-05-2021 End: 08-05-[address] Dee Rider Work Phone: [facility]Laboratory Start: 03-16-2018 Ambulatory EREN CLARK Facility :[facility] Start: 07-14-2017 Ambulatory EREN CLARK [facility] Procedures Date Procedure Procedure Detail Performing Clinician Start: 10-23-[address] GRISELDA LYNCH MD Comment on above: RIGHT Start: 04-27-2024 X-ray of chest, PA a nd lateral views Yecenia Agrawal MD Work Phone: Start: 08-24-2023 MRI of lumbar spine Dr. Dee Rider Work Phone: Start: 08-12-2023 X-ray of lumbosacral spine Dr. Dee Rider Work Phone: Start: 04-04-2023 Radiography of thora cic spine Dr. Dee Rider Work Phone: Start: 04-04-2023 X-ray of lumbar spin e, two or three views Dr. Dee Rider Work Phone: Start: 03-09-2022 Urnls dip stick/tabl et rgnt auto w/o microscopy Rubén Alves PA-C Work Phone: Start: 11-17-2021 Urnls dip stick/tabl et rgnt auto w/o microscopy Bulk Order Provider Start: 10-13-2021 Radiologic exam ches t 2 views Mauricio Riley MD Work Phone: Start: 09-30-2021 History of coronary artery bypass grafting H/O coronary artery bypass surgery Dr. Junior Johnson MD Comment on above: CABG x 3: MANTILLA-LAD, SVG-OM1, SVG-RPDA, Bilateral Maze procedure (RF w/ cryo), and LAAC w/ 35mm clip 07/31/2021 Start: 09-28-2021 Spmtry w/vc expirato ry rogelio w/wo mxml vol vntj Mauricio Riley MD Work Phone: Start: 09-23-2021 Mri spinal canal tho racic w/o & w/contr matrl Diamond Damon MD Work Phone: Start: 08-20-2021 Radionuclide imaging of perfusion of myocardium under exercise stress Dr. Dee Rider Work Phone: Start: 09-16-2020 Adult depression screening assessment Quentin Hampton MD Work Phone: Start: 10-18-2014 History of placement of stent for coronary artery disease History of coronary artery stent placement Dr. Junior Johnson MD Comment on above: JLP-QTU-qylvwigy LCX w/4.0 X 18 mm Vision stent 02/14/2007; LYP-QYS-OUH-Proximal LCX w/ 4.0 X 28 mm Xience Alpine MAGDA 10/18/2014 Coronary artery bypa ss grafts x 3 DR GRISELDA LYNCH MD History of coronary artery bypass grafting S/P CABG (coronary artery bypass graft) Andjean carlos Rivas SIEVE REPAIRER.GROUT MACHINE TENDER Work Phone: Maze procedure DR GRISELDA REGAN MD Prostatectomy DR GRISELDA WASHINGTON MD Total knee replacement DR SANJUANA CISNEROS Comment on above: PARTIAL, LEFT Total replacement of hip DR GRISELDA LYNCH MD Comment on above: LEFT RIGHT Plan of Treatment Date Care Activity Detail Author Start: 09-01-2024 Hepatitis B surface antibody level LDL Cholesterol [facility] Start: 08-21-2024 End: 08-21-2024 ambulatory 08/21/2024 12:30 PM EDT Results Only [facility] [address] [place] [address] [facility] Start: 08-16-2024 End: 11-15-2024 Prostate specific Ag [Mass/volume] in Serum or Plasma PROSTATE-SPECIFIC ANTIGEN DIAGNOSTIC Lab Routine Prostate CA (HCC) Expected: 08/16/2024 (Approximate), Expires: 11/15/2024 [facility] Comment on above: Expected: 08/16/2024 (Approximate), Expires: 11/15/2024 Start: 08-16-2024 End: 11-15-2024 Testosterone [Mass/volume] in Serum or Plasma TESTOSTERONE, TOTAL BY IMMUNOASSAY (ADULT MALES, OR INDIVIDUALS ON TESTOSTERONE THERAPY) Lab Routine Prostate CA (HCC) Expected: 08/16/2024 (Approximate), Expires: 11/15/2024 [facility] Work Phone: Comment on above: Expected: 08/16/2024 (Approximate), Expires: 11/15/2024 Start: 05-24-2024 Annual PCP Team Dealer Analyst aimee Disease Visit Annual PCP Team Chronic Disease Visit [facility] Start: 05-24-2024 BP Controlled (<130/80) BP Controlle d (<130/80) [facility] Start: 05-24-2024 Covid-19 Vaccine () Covid-19 Vaccine () [facility] Comment on above: Postponed from 01/14 (Declined at this time) Start: 05-24-2024 RSV Vaccine (1 - 1-d ose 60+ series) RSV Vaccine (1 - 1-dose 60+ series) [facility] Comment on above: Postponed from 06/25 (Declined at this time) Start: 05-19-2024 Hepatitis B surface antibody level LDL Cholesterol [facility] Start: 05-16-2024 Advance Directive Discussion Advance Directive Discussion [facility] Start: 05-04-2024 Patient discharge [facility] Start: 04-29-2024 Hemoglobin A1c measurement HbA1C [facility] Start: 01-15-2024 Covid-19 Vaccine () Covid-19 Vaccine () [facility] Start: 01-15-2024 Influenza vaccination C [facility] Start: 11-24-2023 End: 11-24-2023 Patient encounter procedure 11/24/2023 11:20 AM EDT Office Visit [facility] [address] [place] [id number] Dee Rider MD [address] [place] [id number] 6 mo f/u [facility] [place] Comment on above: 6 mo f/u Start: 11-17-2023 Hemoglobin A1c measurement HbA1C [facility] Start: 08-09-2023 End: 10-09-2023 Prostate specific Ag [Mass/volume] in Serum or Plasma PSA/PROSTSPECAG DIAG Lab Routine Prostate CA ([facility]) Expected: 08/09/2023 (Approximate), Expires: 10/09/2023 [facility] Work Phone: Comment on above: Expected: 08/09/2023 (Approximate), Expires: 10/09/2023 Start: 08-09-2023 End: 10-09-2023 Testosterone [Mass/volume] in Serum or Plasma TESTOSTERONE TOTAL Lab Routine Prostate CA ([facility]) Expected: 08/09/2023 (Approximate), Expires: 10/09/2023 [facility] Work Phone: Comment on above: Expected: 08/09/2023 (Approximate), Expires: 10/09/2023 Start: 07-27-2023 Urine microalbumin profile [facility] Start: 06-07-2023 BP CONTROLLED (<130/80) BP CONTROLLE D (<130/80) [facility] Start: 05-20-2023 ANNUAL 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 TEAM 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 DISEASE VISIT ANNUAL PCP TEAM CHRONIC DISEASE VISIT [facility] Start: 05-16-2023 Advance Directive Discussion Advance Directive Discussion [facility] Start: 05-16-2023 Behavioral Health Screening Behavioral Health Screening [facility] Start: 05-14-2023 Hepatitis B surface antibody level LDL CHOLESTEROL [facility] Start: 04-04-2023 [facility] Start: 03-09-2023 BP CONTROLLED (<130/80) BP CONTROLLE D (<130/80) [facility] Start: 01-14-2023 Covid-19 Vaccine () Covid-19 Vaccine () [facility] Start: 01-14-2023 Influenza vaccination C [facility] Start: 11-12-2022 Hemoglobin A1c/Hemoglobin.total in Blood HBA1C [facility] Start: 09-29-2022 BP CONTROLLED (<130/80) BP CONTROLLE D (<130/80) [facility] Start: 09-28-2022 Hepatitis B surface antibody level LDL CHOLESTEROL [facility] Start: 09-08-2022 BP CONTROLLED (<130/80) BP CONTROLLE D (<130/80) [facility] Start: 08-31-2022 Hepatitis B surface antibody level LDL CHOLESTEROL [facility] Start: 08-26-2022 BP CONTROLLED (<130/80) BP CONTROLLE D (<130/80) [facility] Start: 08-26-2022 Hemoglobin A1c/Hemoglobin.total in Blood HBA1C [facility] Start: 08-24-2022 End: 10-24-2022 ALBUMIN/CREAT RATIO RND UR ALBUMIN/CREAT RATIO RND UR Lab Routine Controlled type 2 diabetes mellitus without complication, without long-term current use of insulin (HCC) Expected: 08/24/2022, Expires: 10/24/2022 [facility] Work Phone: Comment on above: Expected: 08/24/2022 , Expires: 10/24/2022 Start: 08-17-2022 End: 10-17-2022 Prostate specific Ag [Mass/volume] in Serum or Plasma PSA/PROSTSPECAG DIAG Lab Routine Prostate cancer ([facility]) Expected: 08/17/2022 (Approximate), Expires: 10/17/2022 [facility] Work Phone: Comment on above: Expected: 08/17/2022 (Approximate), Expires: 10/17/2022 Start: 08-17-2022 End: 10-17-2022 Testosterone [Mass/volume] in Serum or Plasma TESTOSTERONE TOTAL Lab Routine Prostate cancer (HCC) Expected: 08/17/2022 (Approximate), Expires: 10/17/2022 [facility] Work Phone: Comment on above: Expected: 08/17/2022 (Approximate), Expires: 10/17/2022 Start: 07-13-2022 Covid-19 Vaccine (5 - Pfizer series) Covid-19 Vaccine (5 - Pfizer series) [facility] Start: 06-27-2022 Hemoglobin A1c/Hemoglobin.total in Blood HBA1C [facility] Start: 06-08-2022 End: 08-08-2022 Prostate specific Ag [Mass/volume] in Serum or Plasma PSA/PROSTSPECAG DIAG Lab Routine Prostate cancer (HCC) Expected: 06/08/2022, Expires: 08/08/2022 [facility] Work Phone: Comment on above: Expected: 06/08/2022 , Expires: 08/08/2022 Start: 05-16-2022 ADVANCE DIRECTIVE DISCUSSION ADVANCE DIRECTIVE DISCUSSION [facility] Start: 05-16-2022 DEPRESSION ASSESSMENT DEPRESSION ASS ESSMENT [facility] Start: 03-31-2022 ANNUAL PCP TEAM 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 DISEASE VISIT ANNUAL PCP TEAM CHRONIC DISEASE VISIT [facility] Start: 03-31-2022 BP CONTROLLED (<130/80) BP CONTROLLE D (<130/80) [facility] Start: 03-31-2022 Hemoglobin A1c/Hemoglobin.total in Blood HBA1C [facility] Start: 03-30-2022 Hepatitis B surface antibody level LDL CHOLESTEROL [facility] Start: 02-24-2022 End: 04-26-2022 Comprehensive metabolic 2000 panel - Serum or Plasma COMP METABOLIC PANEL Lab Routine Prostate CA ([facility]) Expected: 02/24/2022 (Approximate), Expires: 04/26/2022 [facility] Work Phone: Comment on above: Expected: 02/24/2022 (Approximate), Expires: 04/26/2022 Start: 02-24-2022 End: 04-26-2022 Prostate specific Ag [Mass/volume] in Serum or Plasma PSA/PROSTSPECAG DIAG Lab Routine Prostate CA (HCC) Expected: 02/24/2022 (Approximate), Expires: 04/26/2022 [facility] Work Phone: Comment on above: Expected: 02/24/2022 (Approximate), Expires: 04/26/2022 Start: 02-24-2022 End: 04-26-2022 Testosterone [Mass/volume] in Serum or Plasma TESTOSTERONE TOTAL Lab Routine Prostate CA (HCC) Expected: 02/24/2022 (Approximate), Expires: 04/26/2022 [facility] Work Phone: Comment on above: Expected: 02/24/2022 (Approximate), Expires: 04/26/2022 Start: 01-14-2022 Influenza vaccination [facility] Start: 12-29-2021 End: 02-28-2022 Hemoglobin A1c in Blood HGB A1C Lab Routine Controlled type 2 diabetes mellitus without complication, without long-term current use of insulin (HCC) Expected: 12/29/2021, Expires: 02/28/2022 [facility] Work Phone: Comment on above: Expected: 12/29/2021 , Expires: 02/28/2022 Start: 12-29-2021 End: 02-28-2022 Prostate specific Ag [Mass/volume] in Serum or Plasma PSA/PROSTSPECAG DIAG Lab Routine Prostate cancer (HCC) Expected: 12/29/2021 (Approximate), Expires: 02/28/2022 [facility] Work Phone: Comment on above: Expected: 12/29/2021 (Approximate), Expires: 02/28/2022 Start: 12-12-2021 Patient referral [facility] Work Phone: Start: 11-18-2021 End: 01-18-2022 aPTT in Platelet poor plasma by Coagulation assay ACTIVATED PTT Lab Routine Malignant neoplasm of prostate (HCC) Expected: 11/18/2021 (Approximate), Expires: 01/18/2022 [facility] Work Phone: Comment on above: Expected: 11/18/2021 (Approximate), Expires: 01/18/2022 Start: 11-18-2021 End: 01-18-2022 CBC panel - Blood by Automated count CBC Lab Routine Malignant neoplasm of prostate (HCC) Expected: 11/18/2021 (Approximate), Expires: 01/18/2022 [facility] Work Phone: Comment on above: Expected: 11/18/2021 (Approximate), Expires: 01/18/2022 Start: 11-18-2021 End: 01-18-2022 Comprehensive metabolic 2000 panel - Serum or Plasma COMP METABOLIC PANEL Lab Routine Malignant neoplasm of prostate (HCC) Expected: 11/18/2021 (Approximate), Expires: 01/18/2022 [facility] Work Phone: Comment on above: Expected: 11/18/2021 (Approximate), Expires: 01/18/2022 Start: 11-18-2021 End: 01-18-2022 CONFIRM BLOOD TYPE CONFIRM BLOOD TYPE Blood Bank Routine Malignant neoplasm of prostate (HCC) Expected: 11/18/2021 (Approximate), Expires: 01/18/2022 [facility] Work Phone: Comment on above: Expected: 11/18/2021 (Approximate), Expires: 01/18/2022 Start: 11-18-2021 End: 01-18-2022 PT panel - Platelet poor plasma by Coagulation assay PROTHROMBIN TIME/PT Lab Routine Malignant neoplasm of prostate (HCC) Expected: 11/18/2021 (Approximate), Expires: 01/18/2022 [facility] Work Phone: Comment on above: Expected: 11/18/2021 (Approximate), Expires: 01/18/2022 Start: 11-18-2021 End: 09-28-2022 SARS-CoV-2 (COVID-19) RNA [Presence] in Respiratory specimen by ANNY with probe detection PRE-PROCEDURE & PRE-OPERATIVE COVID Microbiology Routine Malignant neoplasm of prostate (HCC) Expected: 11/18/2021 (Approximate), Expires: 09/28/2022 [facility] Work Phone: Comment on above: Expected: 11/18/2021 (Approximate), Expires: 09/28/2022 Start: 11-18-2021 End: 01-18-2022 TYPE AND SCREEN,30 DAY TYPE AND SCREEN,30 DAY Blood Bank Routine Malignant neoplasm of prostate (HCC) Expected: 11/18/2021 (Approximate), Expires: 01/18/2022 [facility] Work Phone: Comment on above: Expected: 11/18/2021 (Approximate), Expires: 01/18/2022 Start: 09-27-2021 Hemoglobin A1c/Hemoglobin.total in Blood HBA1C [facility] Start: 09-18-2021 Hepatitis B screening URINE ALBUMIN:CREATININE RATIO [facility] Start: 09-16-2021 Adult depression scr eening assessment DEPRESSION SCREENING [facility] Start: 09-14-2021 End: 11-14-2021 aPTT in Platelet poor plasma by Coagulation assay ACTIVATED PTT Lab Routine 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) Atrial fibrillation, unspecified type (HCC) Prostate cancer (HCC) Hyperlipidemia, unspecified hyperlipidemia type Primary hypertension Pre-operative cardiovascular examination Expected: 09/14/2021 (Approximate), Expires: 11/14/2021 [facility] Work Phone: Comment on above: Expected: 09/14/2021 (Approximate), Expires: 11/14/2021 Start: 09-14-2021 End: 11-14-2021 CONFIRM BLOOD TYPE CONFIRM BLOOD TYPE Blood Bank Routine 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) Atrial fibrillation, unspecified type (HCC) Prostate cancer (HCC) Hyperlipidemia, unspecified hyperlipidemia type Primary hypertension Pre-operative cardiovascular examination Expected: 09/14/2021, Expires: 11/14/2021 [facility] Work Phone: Comment on above: Expected: 09/14/2021 , Expires: 11/14/2021 Start: 09-14-2021 End: 11-14-2021 Lactate dehydrogenase [Enzymatic activity/volume] in Serum or Plasma LD LACTATE DEHYDRO Lab Routine 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) Atrial fibrillation, unspecified type (HCC) Prostate cancer (HCC) Hyperlipidemia, unspecified hyperlipidemia type Primary hypertension Pre-operative cardiovascular examination Expected: 09/14/2021, Expires: 11/14/2021 [facility] Work Phone: Comment on above: Expected: 09/14/2021 , Expires: 11/14/2021 Start: 09-14-2021 End: 11-14-2021 PT panel - Platelet poor plasma by Coagulation assay PROTHROMBIN TIME/PT Lab Routine 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) Atrial fibrillation, unspecified type (HCC) Prostate cancer (HCC) Hyperlipidemia, unspecified hyperlipidemia type Primary hypertension Pre-operative cardiovascular examination Expected: 09/14/2021 (Approximate), Expires: 11/14/2021 [facility] Work Phone: Comment on above: Expected: 09/14/2021 (Approximate), Expires: 11/14/2021 Start: 09-14-2021 End: 09-14-2022 SARS-CoV-2 (COVID-19) RNA [Presence] in Respiratory specimen by ANNY with probe detection PRE-PROCEDURE & PRE-OPERATIVE COVID Microbiology Routine 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) Atrial fibrillation, unspecified type (HCC) Prostate cancer (HCC) Hyperlipidemia, unspecified hyperlipidemia type Primary hypertension Pre-operative cardiovascular examination Expected: 09/14/2021, Expires: 09/14/2022 [facility] Work Phone: Comment on above: Expected: 09/14/2021 , Expires: 09/14/2022 Start: 09-14-2021 End: 11-14-2021 TYPE AND SCREEN,30 DAY TYPE AND SCREEN,30 DAY Blood Bank Routine 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) Atrial fibrillation, unspecified type (HCC) Prostate cancer (HCC) Hyperlipidemia, unspecified hyperlipidemia type Primary hypertension Pre-operative cardiovascular examination Expected: 09/14/2021, Expires: 11/14/2021 [facility] Work Phone: Comment on above: Expected: 09/14/2021 , Expires: 11/14/2021 Start: 09-14-2021 End: 11-14-2021 URINALYSIS, DIPSTICK ONLY URINALYSIS, DIPSTICK ONLY Lab Routine 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) Atrial fibrillation, unspecified type (HCC) Prostate cancer (HCC) Hyperlipidemia, unspecified hyperlipidemia type Primary hypertension Pre-operative cardiovascular examination Expected: 09/14/2021, Expires: 11/14/2021 [facility] Work Phone: Comment on above: Expected: 09/14/2021 , Expires: 11/14/2021 Start: 08-25-2021 End: 10-25-2021 CBC panel - Blood by Automated count CBC Lab Routine Essential hypertension, benign Coronary artery disease involving pilot point heart without angina pectoris, unspecified vessel or lesion type Mixed hyperlipidemia Controlled type 2 diabetes mellitus without complication, without long-term current use of insulin (HCC) Expected: 08/25/2021, Expires: 10/25/2021 [facility] Work Phone: Comment on above: Expected: 08/25/2021 , Expires: 10/25/2021 Start: 08-25-2021 End: 10-25-2021 Comprehensive metabolic 2000 panel - Serum or Plasma COMP METABOLIC PANEL Lab Routine Essential hypertension, benign Coronary artery disease involving pilot [place] heart without angina pectoris, unspecified vessel or lesion type Mixed hyperlipidemia Controlled type 2 diabetes mellitus without complication, without long-term current use of insulin (HCC) Expected: 08/25/2021, Expires: 10/25/2021 [facility] Work Phone: Comment on above: Expected: 08/25/2021 , Expires: 10/25/2021 Start: 08-25-2021 End: 10-25-2021 LIPID PANEL BASIC LIPID PANEL BASIC Lab Routine Essential hypertension, benign Coronary artery disease involving pilot [place] heart without angina pectoris, unspecified vessel or lesion type Mixed hyperlipidemia Controlled type 2 diabetes mellitus without complication, without long-term current use of insulin (HCC) Expected: 08/25/2021, Expires: 10/25/2021 [facility] Work Phone: Comment on above: Expected: 08/25/2021 , Expires: 10/25/2021 Start: 08-25-2021 End: 08-25-2022 SARS-CoV-2 (COVID-19) RNA [Presence] in Respiratory specimen by ANNY with probe detection PRE-PROCEDURE & PRE-OPERATIVE COVID Microbiology Routine Essential hypertension, benign Coronary artery disease involving pilot [place] heart without angina pectoris, unspecified vessel or lesion type Mixed hyperlipidemia Controlled type 2 diabetes mellitus without complication, without long-term current use of insulin (HCC) Expected: 08/25/2021, Expires: 08/25/2022 [facility] Work Phone: Comment on above: Expected: 08/25/2021 , Expires: 08/25/2022 Start: 08-04-2021 COVID-19 VACCINE (4 - Booster for Pfizer series) COVID-19 VACCINE (4 - Booster for Pfizer series) [facility] Start: 06-01-2021 COVID-19 VACCINE (4 - Booster for Pfizer series) COVID-19 VACCINE (4 - Booster for Pfizer series) [facility] Start: 05-16-2021 ADVANCE DIRECTIVE DISCUSSION ADVANCE DIRECTIVE DISCUSSION [facility] Start: 05-16-2021 DEPRESSION ASSESSMENT DEPRESSION ASS ESSMENT [facility] Start: 05-01-2021 Glaucoma screening Dilated Retinal E xam [facility] Start: 05-01-2021 Hepatitis C antibody , confirmatory test DILATED RETINAL EXAM [facility] Start: 2019 RSV Vaccine (1 - 1-d ose 75+ series) RSV Vaccine (1 - 1-dose 75+ series) [facility] Start: 05-15-2019 PNEUMOCOCCAL: 65+ (3 - PPSV23 or PCV20) PNEUMOCOCCAL: 65+ (3 - PPSV23 or PCV20) [facility] Start: 2004 Hepatitis B Vaccine (1 of 3 - Risk 3-dose series) Hepatitis B Vaccine (1 of 3 - Risk 3-dose series) [facility] Start: 2004 RSV Vaccine (1 - 1-d ose 60+ series) RSV Vaccine (1 - 1-dose 60+ series) [facility] Start: 1994 SHINGRIX VACCINE (1 of 2) MERCADO GRIX VACCINE (1 of 2) [facility] Start: 1963 SHINGRIX VACCINE (1 of 2) MERCADO GRIX VACCINE (1 of 2) [facility] Start: 1962 Anxiety Screening Anxiety Screening [facility] Start: 1962 BP CONTROLLED (<130/80) BP CONTROLLE D (<130/80) [facility] Start: 1962 Depression Screening Depression Scre ening [facility] Start: 1954 3 comp foot exam completed DIABETIC FOOT EXAM [facility] Start: 1954 Diabetic foot examination Diabetic F oot Exam [facility] CT SIM PLANNING RADI ATION ONCOLOGY CT SIM PLANNING RADIATION ONCOLOGY Radiology Routine Prostate cancer (HCC) Ordered: 08/03/2022 [facility] Work Phone: Comment on above: Ordered: 08/03/2022 End: 08-25-2022 ECG COMPLETE ECG COMPLETE ECG Routine Essential hypertension, benign Coronary artery disease involving pilot point heart without angina pectoris, unspecified vessel or lesion type Mixed hyperlipidemia Controlled type 2 diabetes mellitus without complication, without long-term current use of insulin (HCC) 1 Occurrences starting 08/25/2021 until 08/25/2022 [facility] Work Phone: Comment on above: 1 Occurrences starti ng 08/25/2021 until 08/25/2022 End: 08-28-2022 ECG COMPLETE ECG COMPLETE ECG Routine Essential hypertension, benign 1 Occurrences starting 08/28/2021 until 08/28/2022 [facility] Work Phone: Comment on above: 1 Occurrences starti ng 08/28/2021 until 08/28/2022 End: 11-11-2022 ECG COMPLETE ECG COMPLETE ECG Routine Sinus bradycardia 1 Occurrences starting 11/11/2021 until 11/11/2022 [facility] Work Phone: Comment on above: 1 Occurrences starti ng 11/11/2021 until 11/11/2022 End: 09-14-2022 Echocardiography ECHO Cardiology Routine 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) Atrial fibrillation, unspecified type (HCC) Prostate cancer (HCC) Hyperlipidemia, unspecified hyperlipidemia type Primary hypertension Pre-operative cardiovascular examination 1 Occurrences starting 09/14/2021 until 09/14/2022 [facility] Work Phone: Comment on above: 1 Occurrences starti ng 09/14/2021 until 09/14/2022 End: 10-14-2022 LUNG DIFFUSION CAPACITY (DLCO) LUNG DIFFUSION CAPACITY (DLCO) PFT Routine 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) Atrial fibrillation, unspecified type (HCC) Prostate cancer (HCC) Hyperlipidemia, unspecified hyperlipidemia type Primary hypertension Pre-operative cardiovascular examination 1 Occurrences starting 09/14/2021 until 10/14/2022 [facility] Work Phone: Comment on above: 1 Occurrences starti ng 09/14/2021 until 10/14/2022 Patient Education Understanding Lumbosacral Strain [facility] Work Phone: Patient referral [facility] Work Phone: End: 06-24-2025 PET+CT Guidance for localization of tumor of Whole body-- W 18F-FDG IV NM PET/CT PROSTATE WHOLE BODY IMAGING Radiology Routine Prostate cancer (HCC) 1 Occurrences starting 05/25/2024 until 06/24/2025 [facility] Work Phone: Comment on above: 1 Occurrences starti ng 05/25/2024 until 06/24/2025 PET+CT Guidance for localization of tumor of Whole body-- W 18F-FDG IV NM PET/CT PROSTATE WHOLE BODY IMAGING Radiology Routine Prostate cancer (HCC) 06/18/2024 3:34 PM EST [facility] Work Phone: POST VOID RESIDUAL POST VOID RES IDUAL Procedures Routine Urinary incontinence, unspecified type Ordered: 03/09/2022 [facility] Work Phone: Comment on above: Ordered: 03/09/2022 PT PLAN OF CARE CERTIFICATION PT PLAN OF CARE CERTIFICATION Procedures Routine Prostate cancer (HCC) RICARDO (stress urinary incontinence), male Muscle weakness Ordered: 06/04/2022 [facility] Work Phone: Comment on above: Ordered: 06/04/2022 SARS-CoV-2 (COVID-19 ) RNA [Presence] in Respiratory specimen by ANNY with probe detection SELF CHECK COVID Microbiology Routine Abnormal stress test Ordered: 08/26/2021 [facility] Work Phone: Comment on above: Ordered: 08/26/2021 End: 10-14-2022 SPIROMETRY BASELINE ONLY SPIROMETRY BASELINE ONLY PFT Routine 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) Atrial fibrillation, unspecified type (HCC) Prostate cancer (HCC) Hyperlipidemia, unspecified hyperlipidemia type Primary hypertension Pre-operative cardiovascular examination 1 Occurrences starting 09/14/2021 until 10/14/2022 [facility] Work Phone: Comment on above: 1 Occurrences starti ng 09/14/2021 until 10/14/2022 SPIROMETRY BASELINE ONLY SPIROME TRY BASELINE ONLY PFT Routine 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) Atrial fibrillation, unspecified type (HCC) Prostate cancer (HCC) Hyperlipidemia, unspecified hyperlipidemia type Primary hypertension Pre-operative cardiovascular examination 09/28/2021 1:19 PM EDT [facility] Work Phone: STAPH AUREUS PCR STAPH [facility] PC R Lab Routine Pre-op testing 09/29/2021 8:51 AM EDT [facility] Work Phone: URINALYSIS, REFLEX MICROSCOPIC URINALYSIS, REFLEX MICROSCOPIC Lab Routine Screening for genitourinary condition Ordered: 11/24/2021 [facility] Work Phone: Comment on above: Ordered: 11/24/2021 [facility] Immunizations Immunization Date Immunization Notes Care Provider [facility] 04-28-2022 influenza (aIIV4) vaccine, age 65+ yr, quadrivalent, PF (FLUAD QUADRIVALENT) Dee Rider MD Work Phone: [facility] 04-28-2022 influenza virus vaccine, unspecified formulation Marie Beavers MD Work Phone: [facility] 07-08-2020 COVID-19 vaccine, ag e 12+ yr (PFIZER-BIONTECH - [facility]) Quentin Hampton MD Work Phone: [facility] 06-17-2020 COVID-19 vaccine, ag e 12+ yr (PFIZER-BIONTECH - PURPLE TOP) Quentin Hampton MD Work Phone: [facility] 05-15-2018 influenza, high dose seasonal, preservative-free Quentin Hampton MD Work Phone: [facility] 05-15-2018 pneumococcal conjuga te vaccine, 13 valent Quentin Hampton MD Work Phone: [facility] 07-26-2013 tetanus and diphther ia toxoids, adsorbed, preservative free, for adult use (2 Lf of tetanus toxoid and 2 Lf of diphtheria toxoid) Quentin Hampton MD Work Phone: [facility] Work Phone: 03-20-2013 pneumococcal polysaccharide vaccine, 23 valent Quentin Hampton MD Work Phone: [facility] Work Phone: 02-04-2003 diphtheria and tetan us toxoids, adsorbed for pediatric use Quentin Hampton MD Work Phone: [facility] Work Phone: Payers Date Payer Category Payer Private Health Insurance [id number] 2023 Self-pay [id number] 2017 Medicare (Managed Care) JUDY KRAMER O [id number] 2017 Unknown ANTHEM BLUE CROS S AND BLUE SHIELD ANTHEM MEDIBLUE HMO [id number] 2017-Present [phone] [address] [place] [address] O [id number] 2017 Unknown [id number] 2017 Unknown [id number] 2009 Medicare [id number] 1944 Unknown [id number] 1944 Unknown [id number] 1944 Unknown [id number] 1944 Unknown [id number] Unknown [id number] Unknown [id number] Unknown [id number] Unknown [id number] Unknown [id number] Unknown [id number] Unknown [id number] Unknown [id number] Unknown [id number] Unknown [id number] Unknown [id number] Social History Date Type Detail Facility Start: 08-06-2021 End: 08-26-2023 Tobacco smoking status [facility] Unknown if ever smoked [facility] Start: 09-19-2020 Cigars [facility] Start: 1945 Sex Assigned At Male [facility] Start: 09-14-2016 End: 08-26-2021 Tobacco smoking status NHIS Smokes tobacco daily [facility] End: 09-01-2021 History of tobacco use Cigar Smoker [facility] Start: 09-14-2016 End: 05-20-2022 Tobacco use and exposure Smokeless tobacco non-user [facility] Start: 06-09-2021 End: 05-24-2023 Alcohol intake Current drinker of alcohol (finding) [facility] Start: 12-03-2019 End: 05-20-2022 History SDOH Alcohol Frequency 5 [facility] Start: 12-03-2019 End: 05-20-2022 History SDOH Alcohol Std Drinks 1 [facility] Start: 12-03-2019 End: 05-20-2022 History SDOH Social Connections Get Together 2 [facility] Start: 12-03-2019 End: 05-20-2022 History SDOH Social Connections Yazidism 3 [facility] Start: 12-03-2019 History SDOH Physical Activity MPS 9 [facility] Start: 12-03-2019 Education 17 [facility] Start: 07-06-2010 Tobacco Comment Pt. quit smoking cigarettes in 1969 -still smokes cigars [facility] Start: 07-31-2021 End: 03-09-2022 Exposure to SARS-CoV-2 (event) Not sure [facility] Start: 08-16-2021 End: 11-11-2021 Exposure to SARS-CoV-2 (event) Unable to assess [facility] Start: 08-26-2021 History SDOH Alcohol Comment 1 glass of wine with dinner [facility] Start: 08-26-2021 End: 05-20-2022 Tobacco Comment Pt. quit smoking cigarettes in 1970 - don't consciously inhale [facility] Start: 10-07-2021 End: 05-20-2022 History SDOH Social Connections Get Together 4 [facility] Start: 10-07-2021 History SDOH Physical Activity DPW 0 [facility] Start: 10-13-2021 End: 05-20-2022 Tobacco smoking status NHIS Ex-smoker [facility] End: 09-01-2021 History of tobacco use Current smoker [facility] Start: 11-17-2021 History SDOH Alcohol Comment Prior to surgery, was drinking 1 drink per day, since surgery has cut back. [facility] Start: 03-09-2022 End: 09-15-2022 Alcohol intake [facility] Start: 05-20-2022 History SDOH Social Connections Meetings 98 [facility] Start: 05-20-2022 End: 09-15-2022 Social connection and isolation panel [facility] Active Member of [facility] bs or Organizations Not on file [facility] Are you now , , , , never or living with a partner? [facility] How often to you hav e a drink containing alcohol? 4 or more times a week [facility] How many standard dr inks containing alcohol do you have on a typical day? 1 or 2 [facility] How often do you hav e 6 or more drinks on 1 occasion? Never [facility] Do you feel stress - tense, restless, nervous, or anxious, or unable to sleep at night because your mind is troubled all the time - these days [OSQ] Not at all [facility] (I/We) worried wheth er (my/our) food would run out before (I/we) got money to buy more. Never true [facility] In the past 12 month s, was there a time when you were not able to pay the mortgage or rent on time? No [facility] Start: 11-29-2019 Gender identity Identifies as male gender (finding) [facility] Do you belong to any clubs or organizations such as confucianist groups, unions, fraternal or athletic groups, or school groups? Yes [facility] Start: 05-03-2024 Tobacco smoking status ALIS Current Light tobacco smoker [facility] Start: 08-24-2024 End: 08-31-2024 Sex Male (finding) [facility] Tobacco Nicotine Use: CI GARS APPROX 2/WEEK. Type: Cigars. [facility] Tobacco smoking status [facility] Medical Equipment Procedure Code Equipment Code Equipment Origin al Text Equipment Identifier Dates Test blood sugar (s) 1 times daily. Dx: Type 2 DM - Controlled E11.9 Insulin: No Start: 09-23-2020 End: 09-14-2022 Comment on above: Test blood sugar(s) 1 times daily. Dx: Type 2 DM - Controlled E11.9 Insulin: No Clip Atriclip Gillinov-Eric 180d Long 35mm 25mm Internal Head - [id number] Start: 09-30-2021 [place] Thk1.65mm P tfe [id number] Cardiovascular Patch Sterile - [id number] Start: 09-30-2021 Functional Status Date Assessment Result Facility 10-06-2021 Are you deaf, or do you have serious difficulty hearing No 10/06/2021 11:06 AM Luz Maria Beatty RN [facility] 10-06-2021 Are you blind, or do you have serious difficulty seeing, even when wearing glasses No 10/06/2021 11:06 AM Luz Maria Beatty RN [facility] 10-06-2021 Do you have serious difficulty walking or climbing stairs No 10/06/2021 11:06 AM Luz Maria Beatty RN [facility] 10-06-2021 Do you have difficul ty dressing or bathing No 10/06/2021 11:06 AM Luz Maria Beatty RN [facility] 10-06-2021 Because of a physica l, mental, or emotional condition, do you have difficulty doing errands alone such as visiting a physician's office or shopping No 10/06/2021 11:06 AM Luz Maria Beatty RN [facility] Mental Status Date Assessment Result Facility 10-06-2021 Because of a physica l, mental, or emotional condition, do you have serious difficulty concentrating, remembering, or making decisions No 10/06/2021 11:06 AM EDT Luz Maria Clifford RN No [facility] Clinical Notes 10-18-2014 to 10-24-2024 Note Date & Type Note Facility 10-24-2024 Note Discharge Instructions Thank you for allowing [facility] to assist you with your healthcare needs. The following is important discharge information regarding your hospital visit. Your Care Team [facility] Brown Team Your Diagnosis Status post total right knee replacement What to do next Follow Up Appointments Follow Up with [facility] Physical Therapy When:10/26/2024 03:00 PM EDT Where:[address] [place] [address] [phone] Additional Information: This is your first physical therapy appointment. Follow-up as scheduled. Follow Up with GISSELL REYNOSO PA-C, Orthopedic When:11/06/2024 04:00 PM EDT [facility] [facility] [address] [facility], [place] [address] [phone] Additional Information: This is your post-op appointment. Follow-up as scheduled. The Following Treatments Have Been Ordered for You Discharge Labs No qualifying data available. Discharge Radiology No qualifying data available. Other Therapies No qualifying data available. Post Acute Orders No qualifying data available. Allergies No Known Medication Allergies Medications Please ask your primary doctor or pharmacist before taking any other medication not listed, including over the counter drugs, herbal medications, vitamins and or supplements as they may interact with your home medications. What How Much When Why Instructions Last Dose New acetaminophen (Tylenol Extra Strength 500 mg oral tablet) 2 tab(s) by mouth Three (3) times a day as needed for as needed for pain not to exceed 3000 mg/ day [facility] New docusate-senna (Senokot S 50 mg-8.6 mg oral tablet) 2 tab(s) by mouth Two (2) times a day Duration: 3 Days Take until first bowel movement, then as needed Pick[facility] at [facility] New doxycycline (doxycycline hyclate 100 mg oral capsule) 1 cap by mouth Every 12 hours Duration: 14 Days Pickup at [facility] New famotidine (Pepcid 20 mg oral tablet) 1 tab(s) by mouth Once a day Pickup at [facility] New meloxicam (meloxicam 7.5 mg oral tablet) 1 tab(s) by mouth Two (2) times a day Duration: 30 Days Do not take any other nonsteroidal anti-inflammatories while on meloxicam/ Mobic. Pickup at [facility] [address]11 New oxyCODONE (oxyCODONE 5 mg oral tablet ( IMMEDIATE release )) See instructions Status post total right knee replacement 1-2 tab(s) Oral q4h, As needed for as needed for pain Pickup at [facility] Changed aspirin 81 Milligram by mouth Twice daily with meals Duration: 30 Days Take 81 mg aspirin twice daily with food for 4 weeks postoperatively for DVT prophylaxis. Unchanged atorvastatin (atorvastatin 80 mg oral tablet) 1 tab(s) by mouth Every day Unchanged benazepril (benazepril 40 mg oral tablet) 1 tab(s) by mouth Every day Unchanged cyanocobalamin (Vitamin B12 250 mcg oral tablet) 1 tab(s) by mouth Once a day Unchanged ferrous sulfate (Slow Fe (as elemental iron) 45 mg oral tablet, extended release) 1 tab(s) by mouth Once a day Unchanged spironolactone (spironolactone 25 mg oral tablet) TAKE 1 TABLET BY MOUTH IN THE EVENING Pharmacy Information [facility] [address]: [address] [place], [place] [id number] [phone] [facility]: [address] [place] [address] [phone] Please take this list to your next doctor s visit. Bring all medications you take, including over the counter medications, herbals and other supplements with you to your doctor s visit. Patients and families are reminded to discard old lists and to update any records with all medication providers or retail pharmacies. Education Materials [facility] Post-operative Instructions PLEASE FOLLOW [facility] POST-OP INSTRUCTIONS GIVEN WATCH FOR SIGNS OF INFECTION: call the office ([phone]) if experencing any of the following: (Usually appears 36-48 hours after surgery) Increased temperature (101 degrees Fahrenheit or higher) Redness or swelling Increased uncontrolled pain Foul odor or drainage Calf discomfort Significant swelling Or if having any chest pain, shortness of breath, or difficulty breathing or swallowing call the office or go the nearest Emergency Room. If you have any questions, please call your doctor at the number listed on your follow up instructions. Form: 338A ([id number]) R: 09/19 Additional Information VACCINATE! IT SAVES LIVES! Members of the community who have not yet received the COVID-19 vaccine and would like to receive it can visit one of [facility] vaccine clinics. There are many vaccine clinic locations within the [facility]. For locations and available times, please visit https://gettheshot.coronavirus.o hio.gov/. It is important to note that some COVID mobile vaccine clinics are held outdoors and may be canceled in rainy or stormy conditions. To learn more about pediatric vaccinations (ages 5-11), we invite you to visit the [facility] webpage. [email or web address].[email or web address]/p [email or web address] [email or web address] To learn more about the COVID-19 vaccine, we invite you to visit the CDC website for a list of frequently asked questions.https://www.cdc.gov/co ronavirus/2019-ncov/vaccines/faq .html [facility] Patient Portal Access Instructions: Stay connected with your healthcare team and access your personal medical information anytime with the [facility] Patient Portal. Please follow the directions below to create your [facility] account: 1.Access the email account you provided upon registration to the hospital/physician office.2.Look for an invitation email from [facility].3.Open the email and access the invitation link: Accept Invitation to [facility] ([email or web address]).4.Fill in the required chacon to create your account. To access your account, visit [employer]. Click the blue button labeled Access Patient Portal and then log in with the username and password that you created in the steps above. You will be able to view your test results, lab results, a summary of your visits, upcoming appointments and more. There is also a convenient messaging option where you can send secure messages to your provider. In addition, you will have the ability to download any documents or summaries to your computer and/or send the information securely to a physician. Remember that your healthcare information is confidential, so carefully consider who you will allow to register on the [facility] for access to your information. You can also access the [facility] on the [employer] alfie. Simply click on Patient Portal and then log into your account. If you would like to receive a full copy of your medical records, please contact the [facility] Medical Records Department by calling [phone], Tuesday through Tuesday between 8 a.m. and 4:30 p.m. HOW TO SAFELY DISPOSE OF PRESCRIPTION MEDICATIONS Please use one of the following methods to safely dispose of your unused medications. 1.Use a drug disposal kit: the drug disposal pouch allows you to safely discard your old and unused drugs. Ask your nurse to give you one when you are discharged.2.Visit a local take-back location: Many local pharmacies and police departments have programs that collect old and unwanted prescription drugs. Call your local pharmacy or go to http://Pure Focus/8G8Zo4n to find one close to you.3.Make use of household items: Use cat litter or old coffee grounds to dispose medications if other options are not available. Mix your drugs with these household products, seal them in an airtight container and throw it into the garbage. Call [facility]: [phone] to be sure your drugs can be disposed of in this way. Some medicines may require a different approach.4.Never flush your medications down the toilet. IF YOU HAVE BEEN PRESCRIBED AN OPIOID FOR PAIN If you have been prescribed an opioid (such as hydrocodone, oxycodone or morphine), it is critical to understand the possible side effects and risks of opioid pain medications. Even when taken as directed, opioids can have several side effects including: Tolerance, meaning you might need to take more of a medication for the same pain relief. Nausea, vomiting and/or constipation. Sleepiness, dizziness, dry mouth, confusion, depression or itching. Physical dependence, meaning you have withdrawal symptoms when a medication is stopped, can develop within a few days. KNOW YOUR RESPONSIBILITIES It is important to know exactly how much and how often to take the opioid pain medications you are prescribed. Never take opioids in higher amounts or more often than prescribed. Do not combine opioids with alcohol or other drugs that cause drowsiness, such as benzodiazepines, also known as benzos, including diazepam and alprazolam, muscle relaxants or sleep aids. Never sell or share prescription opioids. This is illegal. Store opioids in a secure place and out of reach of others (including children, family, friends and visitors). The last page of this document has been signed and retained as a CHART COPY. Signatures Patient Education Materials 5 - [facility] Post-op Instruction 12/2016 (13902) Medication Leaflets My discharge plan and instructions have been reviewed and explained to me and I,JERMAINE BEGUM understand my current condition and have read and understand these discharge instructions. I have received a written copy of the plan/instructions. If I have questions, I am aware that I should contact my doctor. Patient/Resident Assistant Signature: Date/Time: Relationship to Patient: Witness Name/Signature: Date/Time: [facility] 10-24-2024 Hospital Discharg e instructions Patient Education 10/24/2024 08:44:40 5 - [facility] Post-op Instruction 12/2016 (90314) [facility] Post-operative Instructions PLEASE FOLLOW [facility] POST-OP INSTRUCTIONS GIVEN WATCH FOR SIGNS OF INFECTION: call the office ([phone]) if experencing any of the following: (Usually appears 36-48 hours after surgery) Increased temperature (101 degrees Fahrenheit or higher) Redness or swelling Increased uncontrolled pain Foul odor or drainage Calf discomfort Significant swelling Or if having any chest pain, shortness of breath, or difficulty breathing or swallowing call the office or go the nearest Emergency Room. If you have any questions, please call your doctor at the number listed on your follow up instructions. Form: 338A (24869) R: 09/19 Follow Up Care 08/27/2024 07:21:05 With:[facility] Address: [facility] [place] [phone] When:10/26/2024 15:00:00 Comments:This is your first physical therapy appointment. Follow-up as scheduled. With:GISSELL REYNOSO PA-C, Orthopedic Address: [address] [facility] [address] [facility], [place] [phone] When:11/06/2024 16:00:00 Comments:This is your post-op appointment. Follow-up as scheduled. [facility] 10-24-2024 Pastoral care Progress note Pastoral Care Note Entered On: 10/24/2024 9:12 EDT Performed On: 10/24/2024 9:10 EDT by Otto Fuentes Pastoral Care Type of Pastoral Visit : Initial visit Spiritual Care Visit Initiated by : Lead Net Software Developer Spiritual Care Reason for Visit : General Spiritual Assessment : Faithful, Coping well with illness, Positive Image of God, Good Bere Group Support Spiritual Care Emotional Assessment : Accepting of Situation, Optimistic, Has Support Network Spiritual Care Intervention : Active listening, Prayer with Patient/Family, Conversation Spiritual Outcomes : Expresses Confidence, Focusing More on Positives Spiritual Plan of Care : No Further Action Pastoral Care Comments : patient states that his surgery and recovery thus far have gone well and that he is pleased with the outstanding care and compassionate people that work here; pt says that he has family support and is connected to a confucianist; pt denies any concerns but asks for a prayer for his recovery and therapy Pastoral Care Visit Length : 10 minute(s) Otto Fuentes - 10/24/2024 9:10 EDT Digitally Signed by Otto Fuentes on 10/24/2024 09:10 AM [facility] 10-24-2024 Note Date of Service October 24, 2024 Subjective The patient was sitting in bed upon examination. Patient denies any chest pain, shortness of breath, dizziness, lightheadedness, nausea or vomiting, or calf pain. No adverse overnight events. Pain has been controlled on medications. Patient overall is doing well today. He has history of previous left unicompartmental knee replacement and bilateral total hip arthroplasties. We discussed the pain block for the right knee. Patient has dealt with chronic constipation in which he uses a prebiotic powder at home. He will continue with this upon discharge. He is currently on doxycycline postoperatively due to elevated A1c greater than 7.0. Patient states he has used nonsteroidal anti-inflammatories in the past without any complications. Objective Vitals and Measurements T: 36.5 C (Oral) TMIN: 35.9 C (Temporal Artery) TMAX: 36.6 C (Oral) HR: 59 (Monitored) RR: 16 BP: 109/60 SpO2: 94% HT: 185.4 cm WT: 102.3 kg BMI: 29.76 Intake and Output 7AM Yesterday to 7AM Today Intake and Output (Last 24 hours) Intake Oral Intake 540.00 Administration Information 1097.25 Output Urine Voided 100.00 Intra-Op EBL 50.00 Urine Count 4.00 Total Summary Total Intake 1637.25 Total Output 150.00 Fluid Balance 1487.25 Physical Exam Vital signs stable, afebrile SCD's and ISIS Hose in place bilaterally Patient is able to plantarflex and dorsiflex actively Sensation is intact to saphenous, sural, superficial and deep peroneal, and tibial distribution Main Mepilex dressing is clean dry and intact. Distal pin site dressing saturated. Negative signs and symptoms of DVT, negative Homans bilaterally Weight Dosing Weight: 102.3 kg (10/23/24) Dosing Weight: 102.3 kg (10/23/24) Medications Medications (23) Active Scheduled: (13) acetaminophen 500 mg Tablet 1,000 mg 2 tab(s), Oral, q8h aspirin 81 mg EC 81 mg 1 tab(s), Oral, BIDM atorvastatin 40 mg tablet 80 mg 2 tab(s), Oral, Daily benazepril 20 mg tablet 40 mg 2 tab(s), Oral, Daily bisacodyl 5 mg EC tablet 10 mg 2 tab(s), Oral, Once docusate sodium 100 mg Capsule 100 mg 1 cap(s), Oral, BID docusate-senna (Senokot S) 50 mg-8.6 mg Tablet 2 tab(s), Oral, BID doxycycline hyclate 100 mg Capsule 100 mg 1 cap(s), Oral, q12h famotidine 20 mg tablet 20 mg 1 tab(s), Oral, qDay ferrous sulfate 325 mg Tablet 325 mg 1 tab(s), Oral, qDayM magnesium hydroxide 8% Suspension 30 mL UD 30 mL, Oral, Daily multivitamin (Myadec) with minerals Therapeutic Multiple Vitamins with Minerals Tablet 1 tab(s), Oral, qDayM spironolactone 25 mg tablet 25 mg 1 tab(s), Oral, qDay Continuous: (1) Lactated Ringers 1,000 mL 1,000 mL, Intravenous, 100 mL/hr PRN: (9) acetaminophen 325 mg Tablet 650 mg 2 tab(s), Oral, q4h diphenhydramine 25 mg tablet 25 mg 1 tab(s), Oral, q6h diphenhyDRAMINE 50 mg/mL (1 mL) INJ 25 mg 0.5 mL, IV Push, q6h morphine 2 mg/mL 1 mL syringe 2 mg 1 mL, IV Push, q1h ondansetron 2 mg/ 1 mL 2 mL INJ 4 mg 2 mL, IV Push, q8h oxycodone 5 mg tablet (immediate release) 5 mg 1 tab(s), Oral, q4h oxycodone 5 mg tablet (immediate release) 10 mg 2 tab(s), Oral, q4h prochlorperazine 10 mg/2 mL vial 5 mg 1 mL, IV Push, q6h sodium biphosphate-sodium phosphate 19 gm-7 gm Enema 133 mL, Rectal, qDay Lab Results 10/24 05:17 WBC: 13.6 H Hgb: 10.6 L Hct: 31.4 L Platelet: 191 Neutrophil %: 88.8 H Glucose Level: 211 H Sodium Level: 135 L Potassium Level: 4.9 BUN: 26 H Creatinine Lvl (s): 0.99 EKG No qualifying data available. Assessment/Plan 1. Status post robotic assisted right total knee arthroplasty postop day #1 2. Continue pain medications: Tylenol, meloxicam, and oxycodone. Patient states he is allowed to take nonsteroidal anti-inflammatories and has tolerated these in the past. Meloxicam will be added for postoperative discharge. He is instructed not to take any other nonsteroidal anti-inflammatories with this medication. 3. DVT prophylaxis: Take 81 mg aspirin twice daily with food for 4 weeks postoperatively for DVT prophylaxis. Patient denies past history of DVT or pulmonary embolism. 4. Physical therapy: Weightbearing as tolerated with walker 5. H & H: 10.6/31.4, asymptomatic. Postoperative drop in hemoglobin from surgery without intraoperative complications. At this time there is no need for treatment. 6. Reactive Leukocytosis: currently 13.6, afebrile. Patient did receive decadron intra-operatively. No clinical signs of infection. 7. Encouraged incentive spirometry 8. Continue postoperative medical management per medicine 9. Postoperative constipation: Discussed with the patient to continue stool softener until first bowel movement. After first bowel movement patient can then take as needed. They were also instructed that if they are not able to have a bowel movement within 3 days they are to contact our office for change of medication. Patient voiced understanding. 10. Disposition: Plan will be for discharge home today as long as patient remains medically stable, tolerates therapy, and pain is adequately controlled. Patient will follow-up per postoperative instructions. Patient would like his prescriptions E scribed to [facility]. We discussed complications with narcotic E scribed to this facility. We will send all medications to [facility] except for the oxycodone. This will be sent to [facility]. Patient will continue with his prebiotic that he uses for constipation. Patient has outpatient physical therapy established. Upon discharge he will contact our office with any concerns or questions. Prior to discharge patient will have distal pin site dressing change. Discussed with nursing. I have reviewed the [place] Automated Rx Reporting System (OARRS) report for this patient for refill pattern and other prescriber involvement as part of the appropriate surveillance for the provision of acute and chronic controlled medications. The report was requested and reviewed on the date of this entry, and was considered in the prescribing process This dictation was created using voice recognition software. Phonetic and/or grammatical errors may exist. Digitally Signed by OTTO HILL PA-C on 10/24/2024 08:42 AM [facility] 10-24-2024 Note Date of Service October 24, 2024 Subjective The patient was sitting in bed upon examination. Patient denies any chest pain, shortness of breath, dizziness, lightheadedness, nausea or vomiting, or calf pain. No adverse overnight events. Pain has been controlled on medications. Patient overall is doing well today. He has history of previous left unicompartmental knee replacement and bilateral total hip arthroplasties. We discussed the pain block for the right knee. Patient has dealt with chronic constipation in which he uses a prebiotic powder at home. He will continue with this upon discharge. He is currently on doxycycline postoperatively due to elevated A1c greater than 7.0. Patient states he has used nonsteroidal anti-inflammatories in the past without any complications. Objective Vitals and Measurements T: 36.5 C (Oral) TMIN: 35.9 C (Temporal Artery) TMAX: 36.6 C (Oral) HR: 59 (Monitored) RR: 16 BP: 109/60 SpO2: 94% HT: 185.4 cm WT: 102.3 kg BMI: 29.76 Intake and Output 7AM Yesterday to 7AM Today Intake and Output (Last 24 hours) Intake Oral Intake 540.00 Administration Information 1097.25 Output Urine Voided 100.00 Intra-Op EBL 50.00 Urine Count 4.00 Total Summary Total Intake 1637.25 Total Output 150.00 Fluid Balance 1487.25 Physical Exam Vital signs stable, afebrile SCD's and ISIS Hose in place bilaterally Patient is able to plantarflex and dorsiflex actively Sensation is intact to saphenous, sural, superficial and deep peroneal, and tibial distribution Main Mepilex dressing is clean dry and intact. Distal pin site dressing saturated. Negative signs and symptoms of DVT, negative Homans bilaterally Weight Dosing Weight: 102.3 kg (10/23/24) Dosing Weight: 102.3 kg (10/23/24) Medications Medications (23) Active Scheduled: (13) acetaminophen 500 mg Tablet 1,000 mg 2 tab(s), Oral, q8h aspirin 81 mg EC 81 mg 1 tab(s), Oral, BIDM atorvastatin 40 mg tablet 80 mg 2 tab(s), Oral, Daily benazepril 20 mg tablet 40 mg 2 tab(s), Oral, Daily bisacodyl 5 mg EC tablet 10 mg 2 tab(s), Oral, Once docusate sodium 100 mg Capsule 100 mg 1 cap(s), Oral, BID docusate-senna (Senokot S) 50 mg-8.6 mg Tablet 2 tab(s), Oral, BID doxycycline hyclate 100 mg Capsule 100 mg 1 cap(s), Oral, q12h famotidine 20 mg tablet 20 mg 1 tab(s), Oral, qDay ferrous sulfate 325 mg Tablet 325 mg 1 tab(s), Oral, qDayM magnesium hydroxide 8% Suspension 30 mL UD 30 mL, Oral, Daily multivitamin (Myadec) with minerals Therapeutic Multiple Vitamins with Minerals Tablet 1 tab(s), Oral, qDayM spironolactone 25 mg tablet 25 mg 1 tab(s), Oral, qDay Continuous: (1) Lactated Ringers 1,000 mL 1,000 mL, Intravenous, 100 mL/hr PRN: (9) acetaminophen 325 mg Tablet 650 mg 2 tab(s), Oral, q4h diphenhydramine 25 mg tablet 25 mg 1 tab(s), Oral, q6h diphenhyDRAMINE 50 mg/mL (1 mL) INJ 25 mg 0.5 mL, IV Push, q6h morphine 2 mg/mL 1 mL syringe 2 mg 1 mL, IV Push, q1h ondansetron 2 mg/ 1 mL 2 mL INJ 4 mg 2 mL, IV Push, q8h oxycodone 5 mg tablet (immediate release) 5 mg 1 tab(s), Oral, q4h oxycodone 5 mg tablet (immediate release) 10 mg 2 tab(s), Oral, q4h prochlorperazine 10 mg/2 mL vial 5 mg 1 mL, IV Push, q6h sodium biphosphate-sodium phosphate 19 gm-7 gm Enema 133 mL, Rectal, qDay Lab Results 10/24 05:17 WBC: 13.6 H Hgb: 10.6 L Hct: 31.4 L Platelet: 191 Neutrophil %: 88.8 H Glucose Level: 211 H Sodium Level: 135 L Potassium Level: 4.9 BUN: 26 H Creatinine Lvl (s): 0.99 EKG No qualifying data available. Assessment/Plan 1. Status post robotic assisted right total knee arthroplasty postop day #1 2. Continue pain medications: Tylenol, meloxicam, and oxycodone. Patient states he is allowed to take nonsteroidal anti-inflammatories and has tolerated these in the past. Meloxicam will be added for postoperative discharge. He is instructed not to take any other nonsteroidal anti-inflammatories with this medication. 3. DVT prophylaxis: Take 81 mg aspirin twice daily with food for 4 weeks postoperatively for DVT prophylaxis. Patient denies past history of DVT or pulmonary embolism. 4. Physical therapy: Weightbearing as tolerated with walker 5. H & H: 10.6/31.4, asymptomatic. Postoperative drop in hemoglobin from surgery without intraoperative complications. At this time there is no need for treatment. 6. Reactive Leukocytosis: currently 13.6, afebrile. Patient did receive decadron intra-operatively. No clinical signs of infection. 7. Encouraged incentive spirometry 8. Continue postoperative medical management per medicine 9. Postoperative constipation: Discussed with the patient to continue stool softener until first bowel movement. After first bowel movement patient can then take as needed. They were also instructed that if they are not able to have a bowel movement within 3 days they are to contact our office for change of medication. Patient voiced understanding. 10. Disposition: Plan will be for discharge home today as long as patient remains medically stable, tolerates therapy, and pain is adequately controlled. Patient will follow-up per postoperative instructions. Patient would like his prescriptions E scribed to [facility] in [facility]. We discussed complications with narcotic E scribed to this facility. We will send all medications to [facility] except for the oxycodone. This will be sent to [facility]. Patient will continue with his prebiotic that he uses for constipation. Patient has outpatient physical therapy established. Upon discharge he will contact our office with any concerns or questions. Prior to discharge patient will have distal pin site dressing change. Discussed with nursing. I have reviewed the [place] Automated Rx Reporting System (OARRS) report for this patient for refill pattern and other prescriber involvement as part of the appropriate surveillance for the provision of acute and chronic controlled medications. The report was requested and reviewed on the date of this entry, and was considered in the prescribing process This dictation was created using voice recognition software. Phonetic and/or grammatical errors may exist. Digitally Signed by OTTO HILL PA-C on 10/24/2024 08:42 AM [facility] 10-23-2024 Note Exam Date Time Procedure Performing Provider Status 10/23/24 2:07 PM US Anesthesia Block Auth (Verified) [id number] ORIGINAL Images acquired, not reported on this accession number. [facility]06-10-2025 Note* Exam Date Time Procedure Performing Provider Status 10/23/24 1:25 PM XR Knee 1 or 2 Views Right DEVIN HERNANDEZ MD; Auth (Verified) [id number] ORIGINAL EXAMINATION: TWO XRAY VIEWS OF THE RIGHT KNEE 10/23/2024 1:25 pm COMPARISON: None. HISTORY: ORDERING SYSTEM PROVIDED HISTORY: Reason for Exam: Status Post Arthroplasty FINDINGS: Skin candida. Postop total right knee arthroplasty with patellar resurfacing. There is immediate expected postop changes present including swelling subcutaneous and intra-articular gas and joint effusion. Medial subcutaneous vascular clips. No evidence of fracture. IMPRESSION: Immediate expected postop changes status post total right knee arthroplasty. Interpreted by: Edie Hernandez Preliminary Report By: Edie Hernandez Electronically signed By Edie Hernandez Dictated Date: 10/23/2024 1:32:00 PM Prelim Date: 10/23/2024 1:32:59 PM Sign Date: 10/23/2024 1:32:59 PM Ordering Provider: GRISELDA LYNCH [facility]06-10-2025 Anesthesiology Consult note Patient: JERMAINE BEGUM Age: 79 years Sex: Male : 1945 Associated Diagnoses: None Author: BETI BUTTS APRN-[employer] Assessment Postanesthesia assessment Vitals: Vital signs from flowsheet : Vital Signs 10/23/2024 13:00 EDT Respiratory Rate - Anes 0 br/min br/min 10/23/2024 12:55 EDT Respiratory Rate - Anes 0 br/min br/min 10/23/2024 12:50 EDT Heart Rate Monitored 58 bpm bpm Respiratory Rate - Anes 16 br/min br/min Systolic Blood Pressure Non-Invasive 114 mmHg mmHg Diastolic Blood Pressure Non-Invasive 48 mmHg mmHg 10/23/2024 12:45 EDT Temperature (Route Not Specified) 36 DegC DegC Heart Rate Monitored 60 bpm bpm Respiratory Rate - Anes 17 br/min br/min Systolic Blood Pressure Non-Invasive 113 mmHg mmHg Diastolic Blood Pressure Non-Invasive 48 mmHg mmHg 10/23/2024 12:40 EDT Heart Rate Monitored 58 bpm bpm Respiratory Rate - Anes 17 br/min br/min Systolic Blood Pressure Non-Invasive 111 mmHg mmHg Diastolic Blood Pressure Non-Invasive 49 mmHg mmHg 10/23/2024 12:35 EDT Heart Rate Monitored 59 bpm bpm Respiratory Rate - Anes 20 br/min br/min Systolic Blood Pressure Non-Invasive 112 mmHg mmHg Diastolic Blood Pressure Non-Invasive 50 mmHg mmHg 10/23/2024 12:30 EDT Temperature (Route Not Specified) 36 DegC DegC Heart Rate Monitored 57 bpm bpm Respiratory Rate - Anes 17 br/min br/min Systolic Blood Pressure Non-Invasive 113 mmHg mmHg Diastolic Blood Pressure Non-Invasive 50 mmHg mmHg 10/23/2024 12:25 EDT Heart Rate Monitored 58 bpm bpm Respiratory Rate - Anes 19 br/min br/min Systolic Blood Pressure Non-Invasive 115 mmHg mmHg Diastolic Blood Pressure Non-Invasive 54 mmHg mmHg 10/23/2024 12:20 EDT Heart Rate Monitored 52 bpm bpm Respiratory Rate - Anes 15 br/min br/min Systolic Blood Pressure Non-Invasive 101 mmHg mmHg Diastolic Blood Pressure Non-Invasive 48 mmHg mmHg 10/23/2024 12:15 EDT Temperature (Route Not Specified) 36 DegC DegC Heart Rate Monitored 53 bpm bpm Respiratory Rate - Anes 18 br/min br/min Systolic Blood Pressure Non-Invasive 100 mmHg mmHg Diastolic Blood Pressure Non-Invasive 48 mmHg mmHg 10/23/2024 12:10 EDT Heart Rate Monitored 55 bpm bpm Respiratory Rate - Anes 10 br/min br/min Systolic Blood Pressure Non-Invasive 103 mmHg mmHg Diastolic Blood Pressure Non-Invasive 47 mmHg mmHg 10/23/2024 12:05 EDT Heart Rate Monitored 54 bpm bpm Respiratory Rate - Anes 15 br/min br/min Systolic Blood Pressure Non-Invasive 104 mmHg mmHg Diastolic Blood Pressure Non-Invasive 47 mmHg mmHg 10/23/2024 12:00 EDT Temperature (Route Not Specified) 36 DegC DegC Heart Rate Monitored 56 bpm bpm Respiratory Rate - Anes 18 br/min br/min Systolic Blood Pressure Non-Invasive 108 mmHg mmHg Diastolic Blood Pressure Non-Invasive 52 mmHg mmHg 10/23/2024 11:55 EDT Heart Rate Monitored 54 bpm bpm Respiratory Rate - Anes 17 br/min br/min Systolic Blood Pressure Non-Invasive 120 mmHg mmHg Diastolic Blood Pressure Non-Invasive 58 mmHg mmHg 10/23/2024 11:50 EDT Heart Rate Monitored 51 bpm bpm Respiratory Rate - Anes 19 br/min br/min Systolic Blood Pressure Non-Invasive 99 mmHg mmHg Diastolic Blood Pressure Non-Invasive 49 mmHg mmHg 10/23/2024 11:45 EDT Temperature (Route Not Specified) 36 DegC DegC Heart Rate Monitored 49 bpm bpm Respiratory Rate - Anes 19 br/min br/min Systolic Blood Pressure Non-Invasive 109 mmHg mmHg Diastolic Blood Pressure Non-Invasive 51 mmHg mmHg 10/23/2024 11:40 EDT Heart Rate Monitored 52 bpm bpm Respiratory Rate - Anes 19 br/min br/min Systolic Blood Pressure Non-Invasive 118 mmHg mmHg Diastolic Blood Pressure Non-Invasive 56 mmHg mmHg 10/23/2024 11:35 EDT Heart Rate Monitored 53 bpm bpm Respiratory Rate - Anes 19 br/min br/min Systolic Blood Pressure Non-Invasive 103 mmHg mmHg Diastolic Blood Pressure Non-Invasive 49 mmHg mmHg 10/23/2024 11:30 EDT Heart Rate Monitored 52 bpm bpm Respiratory Rate - Anes 0 br/min br/min Systolic Blood Pressure Non-Invasive 115 mmHg mmHg Diastolic Blood Pressure Non-Invasive 62 mmHg mmHg 10/23/2024 11:28 EDT Systolic Blood Pressure Non-Invasive 139 mmHg mmHg Diastolic Blood Pressure Non-Invasive 75 mmHg mmHg 10/23/2024 11:25 EDT Respiratory Rate - Anes 0 br/min br/min 10/23/2024 11:20 EDT Respiratory Rate - Anes 0 br/min br/min 10/23/2024 10:03 EDT Temperature Temporal Artery 35.9 DegC Peripheral Pulse Rate 67 bpm Respiratory Rate 20 br/min Systolic Blood Pressure Non-Invasive 151 mmHg HI Diastolic Blood Pressure Non-Invasive 73 mmHg , Measurements from flowsheet . Mental status: at preoperative baseline. Respiratory function: respirations are non-labored. Respiratory support: none. CV function: Normal rate. Cardiovascular support: none. Pain. Nausea status: see nursing documentation of medications. Postoperative hydration status: within normal limits. 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 Family's history: negative. Health Status Allergies: Allergic Reactions (Selected) No Known Medication Allergies, Allergies (1) ActiveSeverityReaction No Known Medication AllergiesNone Documented Current medications: (Selected) Inpatient Medications Ordered Decadron: 10 mg, 1 mL, IV Push, AsDirected Flomax: 0.4 mg, 1 cap(s), Oral, Once Documented Medications Documented Slow Fe (as elemental iron) 45 mg oral tablet, extended release: 45 mg, 1 tab(s), Oral, qDay, 30 tab(s), 0 Refill(s) Vitamin B12 250 mcg oral tablet: 250 mcg, 1 tab(s), Oral, qDay, 30 tab(s), 0 Refill(s) aspirin 81 mg oral delayed release tablet: 81 mg, 1 tab(s), Oral, Daily, 0 Refill(s) atorvastatin 80 mg oral tablet: 80 mg, 1 tab(s), Oral, Daily, 100 tab(s), 0 Refill(s) benazepril 40 mg oral tablet: 40 mg, 1 tab(s), Oral, Daily, 100 tab(s), 0 Refill(s) spironolactone 25 mg oral tablet: TAKE 1 TABLET BY MOUTH IN THE EVENING, Medications (2) Active Scheduled: (2) dexamethasone 10 mg/mL (1mL) SDV 10 mg 1 mL, IV Push, AsDirected tamsulosin 0.4 mg Capsule 0.4 mg 1 cap(s), Oral, Once Continuous: (0) PRN: (0) Problem list: Active Problems (5) History of atrial flutter Incontinence of urine Osteoarthritis Shortness of breath Tobacco use Histories Past Medical History: No active or resolved past medical history items have been selected or recorded. Family History: No family history items have been selected or recorded. Procedure history: Total hip replacement ([id number]). Comments: 08/29/2024 9:57 Tessa Hall RN RIGHT Total hip replacement ([id number]). Comments: 08/29/2024 9:57 Tessa Hall RN LEFT Total knee replacement ([id number]). Comments: 08/29/2024 9:58 EDT - Tessa Navas RN PARTIAL, LEFT Prostatectomy ([id number]). CABG x 3 - Coronary artery bypass grafts x 3 ([id number]). Social History: Social & Psychosocial Habits Alcohol 10/23/2024 Use: Current Type: Beer, Liquor, Wine Frequency: Daily Substance Abuse 10/23/2024 Use: Never Tobacco 10/23/2024 Tobacco Use: Cigars or pipes but not d Type: Cigars Physical Examination Vital Signs 10/23/2024 12:25 EDT Heart Rate Monitored 58 bpm bpm Respiratory Rate - Anes 19 br/min br/min Systolic Blood Pressure Non-Invasive 115 mmHg mmHg Diastolic Blood Pressure Non-Invasive 54 mmHg mmHg 10/23/2024 12:20 EDT Heart Rate Monitored 52 bpm bpm Respiratory Rate - Anes 15 br/min br/min Systolic Blood Pressure Non-Invasive 101 mmHg mmHg Diastolic Blood Pressure Non-Invasive 48 mmHg mmHg 10/23/2024 12:15 EDT Temperature (Route Not Specified) 36 DegC DegC Heart Rate Monitored 53 bpm bpm Respiratory Rate - Anes 18 br/min br/min Systolic Blood Pressure Non-Invasive 100 mmHg mmHg Diastolic Blood Pressure Non-Invasive 48 mmHg mmHg 10/23/2024 12:10 EDT Heart Rate Monitored 55 bpm bpm Respiratory Rate - Anes 10 br/min br/min Systolic Blood Pressure Non-Invasive 103 mmHg mmHg Diastolic Blood Pressure Non-Invasive 47 mmHg mmHg 10/23/2024 12:05 EDT Heart Rate Monitored 54 bpm bpm Respiratory Rate - Anes 15 br/min br/min Systolic Blood Pressure Non-Invasive 104 mmHg mmHg Diastolic Blood Pressure Non-Invasive 47 mmHg mmHg 10/23/2024 12:00 EDT Temperature (Route Not Specified) 36 DegC DegC Heart Rate Monitored 56 bpm bpm Respiratory Rate - Anes 18 br/min br/min Systolic Blood Pressure Non-Invasive 108 mmHg mmHg Diastolic Blood Pressure Non-Invasive 52 mmHg mmHg 10/23/2024 11:55 EDT Heart Rate Monitored 54 bpm bpm Respiratory Rate - Anes 17 br/min br/min Systolic Blood Pressure Non-Invasive 120 mmHg mmHg Diastolic Blood Pressure Non-Invasive 58 mmHg mmHg 10/23/2024 11:50 EDT Heart Rate Monitored 51 bpm bpm Respiratory Rate - Anes 19 br/min br/min Systolic Blood Pressure Non-Invasive 99 mmHg mmHg Diastolic Blood Pressure Non-Invasive 49 mmHg mmHg 10/23/2024 11:45 EDT Temperature (Route Not Specified) 36 DegC DegC Heart Rate Monitored 49 bpm bpm Respiratory Rate - Anes 19 br/min br/min Systolic Blood Pressure Non-Invasive 109 mmHg mmHg Diastolic Blood Pressure Non-Invasive 51 mmHg mmHg 10/23/2024 11:40 EDT Heart Rate Monitored 52 bpm bpm Respiratory Rate - Anes 19 br/min br/min Systolic Blood Pressure Non-Invasive 118 mmHg mmHg Diastolic Blood Pressure Non-Invasive 56 mmHg mmHg 10/23/2024 11:35 EDT Heart Rate Monitored 53 bpm bpm Respiratory Rate - Anes 19 br/min br/min Systolic Blood Pressure Non-Invasive 103 mmHg mmHg Diastolic Blood Pressure Non-Invasive 49 mmHg mmHg 10/23/2024 11:30 EDT Heart Rate Monitored 52 bpm bpm Respiratory Rate - Anes 0 br/min br/min Systolic Blood Pressure Non-Invasive 115 mmHg mmHg Diastolic Blood Pressure Non-Invasive 62 mmHg mmHg 10/23/2024 11:28 EDT Systolic Blood Pressure Non-Invasive 139 mmHg mmHg Diastolic Blood Pressure Non-Invasive 75 mmHg mmHg 10/23/2024 11:25 EDT Respiratory Rate - Anes 0 br/min br/min 10/23/2024 11:20 EDT Respiratory Rate - Anes 0 br/min br/min 10/23/2024 10:03 EDT Temperature Temporal Artery 35.9 DegC Peripheral Pulse Rate 67 bpm Respiratory Rate 20 br/min Systolic Blood Pressure Non-Invasive 151 mmHg HI Diastolic Blood Pressure Non-Invasive 73 mmHg Vital Signs (last 24 hrs) Last Charted Temp [id number] DegC (OCT 23 10:03) Heart Rate [id number] bpm (OCT 23 12:25) SHY063 mmHg (OCT 23 12:25) DBP54 mmHg (OCT 23 12:25) Measurements from flowsheet : Measurements 10/23/2024 10:03 EDT Height 185.4 cm Admission Weight 102.3 kg Bush Body Weight 79.88 kg Admission Body Mass Index 29.76 m2 Pain assessment: Pain Assessment 10/23/2024 11:48 EDT Primary Pain Intensity Not Done: See OR Record (Not Done) 10/23/2024 11:47 EDT Primary Pain Intensity Not Done: See OR Record (Not Done) 10/23/2024 10:36 EDT Primary Pain Intensity 0 10/23/2024 10:03 EDT Primary Pain Intensity 0 Pain Scale Type 0-10 Pain scale . General: Alert and oriented. Airway: Normal temporomandibular joint mobility, Normal mouth, Normal neck range of motion. Mallampati classification: II (soft palate, fauces, uvula visible). Dentition Evaluation: Missing teeth. Respiratory: Respirations are non-labored. Cardiovascular: Normal rate. Neurologic: Alert, Oriented. Review / Management Results review: No qualifying data available , Lab results 10/23/2024 12:27 EDT SN - Implant - Implant/Explant Implant 10/23/2024 12:25 EDT Heart Rate Monitored 58 bpm bpm Respiratory Rate - Anes 19 br/min br/min Systolic Blood Pressure Non-Invasive 115 mmHg mmHg Diastolic Blood Pressure Non-Invasive 54 mmHg mmHg Oxygen Saturation 98 % % 10/23/2024 12:23 EDT SN - Proc - EBL 50 mL 10/23/2024 12:23 EDT Intra-Op EBL 50 mL 10/23/2024 12:20 EDT Heart Rate Monitored 52 bpm bpm Respiratory Rate - Anes 15 br/min br/min Systolic Blood Pressure Non-Invasive 101 mmHg mmHg Diastolic Blood Pressure Non-Invasive 48 mmHg mmHg Oxygen Saturation 99 % % ePHEDrine 10 mg mg 10/23/2024 12:15 EDT Temperature (Route Not Specified) 36 DegC DegC Heart Rate Monitored 53 bpm bpm Respiratory Rate - Anes 18 br/min br/min Systolic Blood Pressure Non-Invasive 100 mmHg mmHg Diastolic Blood Pressure Non-Invasive 48 mmHg mmHg Oxygen Saturation 99 % % 10/23/2024 12:10 EDT Heart Rate Monitored 55 bpm bpm Respiratory Rate - Anes 10 br/min br/min Systolic Blood Pressure Non-Invasive 103 mmHg mmHg Diastolic Blood Pressure Non-Invasive 47 mmHg mmHg Oxygen Saturation 98 % % 10/23/2024 12:05 EDT Heart Rate Monitored 54 bpm bpm Respiratory Rate - Anes 15 br/min br/min Systolic Blood Pressure Non-Invasive 104 mmHg mmHg Diastolic Blood Pressure Non-Invasive 47 mmHg mmHg Oxygen Saturation 99 % % 10/23/2024 12:00 EDT Temperature (Route Not Specified) 36 DegC DegC Heart Rate Monitored 56 bpm bpm Respiratory Rate - Anes 18 br/min br/min Systolic Blood Pressure Non-Invasive 108 mmHg mmHg Diastolic Blood Pressure Non-Invasive 52 mmHg mmHg Oxygen Saturation 99 % % 10/23/2024 11:55 EDT Heart Rate Monitored 54 bpm bpm Respiratory Rate - Anes 17 br/min br/min Systolic Blood Pressure Non-Invasive 120 mmHg mmHg Diastolic Blood Pressure Non-Invasive 58 mmHg mmHg Oxygen Saturation 99 % % 10/23/2024 11:52 EDT fentaNYL 50 mcg mcg midazolam 1 mg mg 10/23/2024 11:51 EDT ePHEDrine 10 mg mg 10/23/2024 11:50 EDT Heart Rate Monitored 51 bpm bpm Respiratory Rate - Anes 19 br/min br/min Systolic Blood Pressure Non-Invasive 99 mmHg mmHg Diastolic Blood Pressure Non-Invasive 49 mmHg mmHg Oxygen Saturation 99 % % 10/23/2024 11:48 EDT Primary Pain Intensity Not Done: See OR Record (Not Done) epinephrine Not Done: See OR Record (Not Done) ketorolac Not Done: See OR Record (Not Done) morphine Not Done: See OR Record (Not Done) ROPivacaine Not Done: See OR Record (Not Done) tranexamic acid Not Done: See OR Record (Not Done) 10/23/2024 11:47 EDT SN - PP - Body Position Supine Standard Intra-op 10/23/2024 11:47 EDT Primary Pain Intensity Not Done: See OR Record (Not Done) epinephrine Not Done: See OR Record (Not Done) ketorolac Not Done: See OR Record (Not Done) morphine Not Done: See OR Record (Not Done) ROPivacaine Not Done: See OR Record (Not Done) 10/23/2024 11:46 EDT SN - TDC - Device Type TRAY ARROYO CATH 16F W/BAG /CA [id number] SN - TDC - Location BLADDER 10/23/2024 11:45 EDT SN - CAt - Case Attendee SN - CAt - Case Attendee SN - CAt - Role Performed Windows Phone Developer Relief 10/23/2024 11:45 EDT - CT - Surgery Start 10/23/2024 11:45 10/23/2024 11:45 EDT Temperature (Route Not Specified) 36 DegC DegC Heart Rate Monitored 49 bpm bpm Respiratory Rate - Anes 19 br/min br/min Systolic Blood Pressure Non-Invasive 109 mmHg mmHg Diastolic Blood Pressure Non-Invasive 51 mmHg mmHg Oxygen Saturation 99 % % SN - CTm - Surgery Start Surgery Start 10/23/2024 11:43 EDT dexmedeTOMIDine 4 mcg mcg 10/23/2024 11:40 EDT Heart Rate Monitored 52 bpm bpm Respiratory Rate - Anes 19 br/min br/min Systolic Blood Pressure Non-Invasive 118 mmHg mmHg Diastolic Blood Pressure Non-Invasive 56 mmHg mmHg Oxygen Saturation 99 % % 10/23/2024 11:38 EDT ePHEDrine 10 mg mg 10/23/2024 11:37 EDT tranexamic acid 1,000 mg mg 10/23/2024 11:35 EDT Heart Rate Monitored 53 bpm bpm Respiratory Rate - Anes 19 br/min br/min Systolic Blood Pressure Non-Invasive 103 mmHg mmHg Diastolic Blood Pressure Non-Invasive 49 mmHg mmHg Oxygen Saturation 100 % % acetaminophen 1,000 mg mg 10/23/2024 11:31 EDT cefazolin 2 gram(s) gram(s) Sodium Chloride 0.9% 100 mL mL 10/23/2024 11:30 EDT Heart Rate Monitored 52 bpm bpm Respiratory Rate - Anes 0 br/min br/min Systolic Blood Pressure Non-Invasive 115 mmHg mmHg Diastolic Blood Pressure Non-Invasive 62 mmHg mmHg Oxygen Saturation 100 % % dexmedeTOMIDine 8 mcg mcg propofol 30 mg mg 10/23/2024 11:28 EDT Systolic Blood Pressure Non-Invasive 139 mmHg mmHg Diastolic Blood Pressure Non-Invasive 75 mmHg mmHg 10/23/2024 11:27 EDT bupivacaine 1.8 mL mL 10/23/2024 11:25 EDT Respiratory Rate - Anes 0 br/min br/min 10/23/2024 11:21 EDT SN - Proc - Anesthesia Type Spinal, MAC SN - Proc - Actual Procedure ROBOTIC ASSISTED RIGHT TOTAL KNEE ARTHROPLASTY 10/23/2024 11:20 EDT Respiratory Rate - Anes 0 br/min br/min 10/23/2024 11:18 EDT SN - Irl - Irrigant Normal Saline SN - Irl - Irrigant Glycine SN - IrI - Volume In 450 mL SN - IrI - Volume In 450 mL SN - IrI - Volume In 3,000 mL SN - Irl - Additive IRRIGATION CHG 0.05% IRRISEPT 12/ [id number] SN - Irl - Additive IRRIGATION ANTIMICROBIAL 450ML SURGIPHOR [id number] SN - IrI - Volume Out 450 mL SN - IrI - Volume Out 450 mL SN - IrI - Volume Out 3,000 mL 10/23/2024 11:17 EDT SN - CTm - Anesthesia Start Time Anesthesia Start 10/23/2024 11:13 EDT SN - SP - Prep Agents Chloraprep SN - SP - HR - Method Clipped 10/23/2024 11:11 EDT dexAMETHasone 10 mg mg ROPivacaine 150 mg mg 10/23/2024 11:09 EDT SN - CAt - Case Attendee SN - CAt - Case Attendee SN - CAt - Role Performed Founder 10/23/2024 11:08 EDT SN - PTCare - Anti-thromboembolism Mary Sequential Compression Device (SCD) 10/23/2024 11:08 EDT SN - Assess - LOC Alert, Awake SN - Assess - Orientation Oriented X 3 SN - Assess - Post-op Skin Integrity Intact/Dry 10/23/2024 11:07 EDT SN - PA - Route of Administration Irrigation SN - PA - Route of Administration Local SN - PA - Route of Administration Local SN - PA - By (Single) SN - PA - By (Single) SN - PA - By (Single) SN - PA - By (Single) SN - PA - By (Single) SN - PA - By (Single) 10/23/2024 11:07 EDT Time Out Procedure Verified Time Out Procedure Site Verified Yes Time Out Procedure Site Marked Yes Time Out Correct Patient Position Yes Consent Form Signed Yes Bedside Procedure Nerve Block Provider #1 Bedside Time Out BETI BUTTS APRN-TIMOTHY Patient ID Band on and Verified Yes Anesthesia Consent Signed Yes Blood Consent Signed Yes 10/23/2024 11:02 EDT SN - Implant - Implant/Explant Implant SN - Implant - Implant/Explant Implant SN - Implant - Implant/Explant Implant 10/23/2024 11:01 EDT SN - GCD - ASA Class 3 SN - GCD - Post-operative Diagnosis UNILATERAL PRIMARY OSTEOARTHRITIS, RIGHT KNEE SN - GCD - Case Level Level 6 10/23/2024 11:01 EDT SN - DRS - Site and Details RIGHT KNEE 10/23/2024 11:01 EDT dexmedeTOMIDine 8 mcg mcg fentaNYL 50 mcg mcg midazolam 1 mg mg 10/23/2024 11:00 EDT SN - Cul - Culture Type No Specimen per Surgeon 10/23/2024 10:59 EDT SN - CAt - Case Attendee SN - CAt - Case Attendee SN - CAt - Case Attendee SN - CAt - Case Attendee SN - CAt - Case Attendee SN - CAt - Case Attendee SN - CAt - Case Attendee SN - CAt - Case Attendee SN - CAt - Case Attendee SN - CAt - Case Attendee SN - CAt - Case Attendee SN - CAt - Case Attendee SN - CAt - Role Performed Primary Surgeon SN - CAt - Role Performed Windows Phone Developer 1 SN - CAt - Role Performed Scrub 1 SN - CAt - Role Performed Carrier Packer 1 SN - CAt - Role Performed Physician Field Training Manager SN - CAt - Role Performed PLATE MILL HAND 10/23/2024 10:52 EDT SN - Preop - CTm Pt in SDS Room 10/23/2024 9:51 SN - Preop - CTm Pt Ready for OR/Proced 10/23/2024 10:38 10/23/2024 10:36 EDT Primary Pain Intensity 0 celecoxib 400 mg mg oxyCODONE 10 mg mg 10/23/2024 10:30 EDT famotidine 20 mg mg Lactated Ringers Injection 1,000 mL mL 10/23/2024 10:26 EDT Preop Nasal Swab Povidone-Iodine CHG Skin Prep Completed for Eligible Surgery 10/23/2024 10:13 EDT Hand Left 10/23/2024 20 gauge Peripheral IV Activity: Insert new site Peripheral IV Dressing Condition: Clean, Dry, Intact Peripheral IV Dressing Activity: Applied Peripheral IV Line Status/Patency: Flushes easily Peripheral IV Site Condition: No complications Peripheral IV Equipment: Extension set Peripheral IV Number of Attempts: 1 10/23/2024 10:11 EDT Blood Glucose, Capillary 134 mg/dL NC 10/23/2024 10:03 EDT Height 185.4 cm Admission Weight 102.3 kg Bush Body Weight 79.88 kg Admission Body Mass Index 29.76 m2 Temperature Temporal Artery 35.9 DegC Peripheral Pulse Rate 67 bpm Respiratory Rate 20 br/min Systolic Blood Pressure Non-Invasive 151 mmHg NC Diastolic Blood Pressure Non-Invasive 73 mmHg Primary Pain Intensity 0 Pain Scale Type 0-10 Pain scale Heart Rhythm Regular Dorsalis Pedis Pulse, Left 2+ Normal Dorsalis Pedis Pulse, Right 2+ Normal Posttibial Pulse, Left 2+ Normal Posttibial Pulse, Right 2+ Normal Respirations Unlabored Respiratory Pattern Regular Oxygen Saturation 97 % Abdomen Description Non-distended, Symmetric Abdomen Palpation Non-Tender Bowel Sounds All Quadrants Present Urinary Elimination Incontinence Skin Description Normal for ethnicity Skin Temperature Warm Skin Integrity Intact Characteristics of Speech Clear Level of Consciousness Alert Strength All Extremities Strong Tone All Extremities Normal Sensation All Extremities Numbness Affect/Behavior Appropriate, Calm, Cooperative Orientation Oriented x 4 Activity Status ADL Awake, Resting Antiembolism Stocking On/Re-applied left thigh high Standard Safety ID band on, Call device within reach, Bed in low position, Wheels locked, Upper/Half-Length side-rails up, Phone within reach, personal items within reach, Visitor at bedside, Safety level maintained 10/23/2024 9:59 EDT Designated Person #1 We May Share LETICIA BEGUM [phone] Designated Person #1 Relationship Spouse Privacy Restrictions Requested None Status N/A Sensory Deficits None Sleep Apnea Snore No Sleep Apnea Tired No Sleep Apnea Obstruction No Sleep Apnea Pressure No Sleep Apnea BMI No Sleep Apnea Age Yes Sleep Apnea Neck No Sleep Apnea Gender Yes Sleep Apnea Score 2 Diagnosed With Sleep Apnea No Advanced Directives No - refuses information Infectious Disease Symptoms Patient states no symptoms Infectious Disease Recent Exposure No Alcohol and Drug Use No Employee of Institutional Living No Health Care Employee No History of Exposure to TB No History of Positive Chest X-Ray for TB No History of Positive TB Skin Test No Homeless No Known Immunosuppression No Recent Immigrant No Resident of Institutional Living No Bloody Sputum No Fatigue No Fever No Loss of Appetite No Night Sweats No Persistent Cough > 3 Weeks No Weight Loss No Patient Aware Date/Time Of Surgery Yes Previous Surgery At This Facility No Pre-Op Patient Education NPO after midnight, No smoking after midnight, No makeup, No jewelry, Responsible Alliance Party, Aware of surgery location, Pre-op education done, 1 bottle CHG wash with instructionsgiven, Instructed to take ordered medications, Total Joint Replacement/Colorectal Book Given, SSI pr evention handout given, MRSA protocol education provided, Anesthesia block education provided SN - Preprocedure Comments Spoke with patient, Verbalizes/Nonverbally indicates understanding, Other: benzapril Barriers to Learning None evident Teaching Method Explanation Preferred Spoken Language Filipino Preferred Written Language Filipino Teaching Evaluation No further teaching needed Total Joint Book Given Yes Safety Brochure Information Reviewed Unable to complete Dilshad Tyson Video Viewed No Patient's Current Physicians DR TANJA CAPPS - PCP History of Malignant Hyperthermia No Discharge To, Anticipated Home independently Prev Test Positive/Diagnosis w/COVID-19 No Current Quarantine/Isolated any Illness No Any Contact with Sick Animals/Birds No Traveled Anywhere in Last 30 Days No Lost Weight Unintentionally Recently No Eat Poorly Due to Decreased Appetite No Total MST Score 0 N/A Personal Devices, Patient Valuables None Anesthesia/Transfusions Prior anesthesia Admission Note-Nursing Same Day Patient History 10/23/2024 9:57 EDT Allergies Yes Consent Form Signed Yes CHG Preoperative Wash/Wipe Night before procedure, Day of procedure History & Physical Update On Chart Yes History & Physical On Chart Yes NPO Status Maintained Allergy Band on and Verified Yes Patient ID Band on and Verified Yes Implants Verified Yes Pacemaker/AICD Verified Yes Site Verified by Patient/Family Yes Blood Consent Signed Yes Last Fluid Intake 10/23/2024 8:15 Last Food Intake 10/22/2024 22:00 10/23/2024 9:54 EDT citric acid-sodium citrate Not Done: Other (Not Done) . Assessment and Plan [place] [employer]esthesi[employer] (ASA) physical status classification: Class III. Anesthetic Preoperative Plan Anesthetic technique: Spinal. Postoperative pain management: adductor block. Informed consent: signed by patient. Digitally Signed by BETI BUTST on 10/23/2024 12:35 PM [facility]02-18-2025 Telephone encounter Note* Telephone Encounter - Cordelia Hussein RN - 07/03/2024 1:32 PM EST lab orders placed for Testosterone and PSA to be checked early August Cordelia Hussein RN [facility]02-18-2025 Miscellaneous Notes* Telephone Encounter - Cordelia Hussein RN - 07/03/2024 1:32 PM EST lab orders placed for Testosterone and PSA to be checked early August Cordelia Hussein RN documented in this encounterOhiohealth [facility] Hospital02-03-2025 History of Present illness Narrative* Marilyn Sheppard, Gluster Tech - 06/18/2024 2:00 PM EST RADIOLOGY SERVICE PROGRESS NOTE SERVICE DATE: 06/18/2024 SERVICE TIME: 1:59 PM PATIENT IDENTITY VERIFICATION COMPLETED USING TWO (2) STANDARD IDENTIFIERS: Name and Date of confirmed by patient verbally FALL SCREENING: Has the patient had 2 falls in the last year or 1 fall with injury or currently using an Ambulatory Assistive Device (Walker, Cane, Wheelchair, Crutches, etc.)? No PATIENT GENDER DATA: .male ALLERGIES: Reviewed and updated MEDICATIONS REVIEWED: No PATIENT RELEVANT IMPLANT DATA REVIEWED: Not Applicable PATIENT PRESENTS WITH AN IMPLANTABLE OR ATTACHED GREENS KEEPER: No CREATININE: Creatinine Date Value Ref Range Status 05/19/2023 1.16 0.73 - 1.22 mg/dL Final 08/20/2022 1.02 0.73 - 1.22 mg/dL Final 02/25/2022 0.90 0.73 - 1.22 mg/dL Final Estimated Glomerular Filtration Rate Date Value Ref Range Status 05/19/2023 64 >=60 mL/min/1.73m Final Comment: Estimated Glomerular Filtration Rate (eGFR) is calculated using the 2020 CKD-EPI creatinine equation. This equation utilizes serum creatinine, sex, and age as parameters. The creatinine assay has traceable calibration to isotope dilution- mass spectrometry. Refer to KDIGO guidelines for clinical interpretation. In patients with unstable renal function, e.g. those with acute kidney injury, the eGFRmay not accurately reflect actual GFR. eGFR- Date Value Ref Range Status 03/30/2021 >60 Final P.O.C.T. RESULTS: N/A June 18, [address] PERFORMED: No IV SITE: Ambulatory: A peripheral IV was started in the Right antecubital site with a Angio cath: 22 gauge. POST EXAM PIV STATUS: Discontinued PROCEDURE TYPE: NM INJECT: PET/CT WHOLE BODY SCAN. 5.4 mCi Ga68- PSMA. No other medications given.. ADMINISTRATION TIME: 1357 PATIENT DISCHARGED TO: Ambulatory patient, left [place] department area. Is this a therapy: No A Diagnostic radioactive procedure has taken place, with no further precautions necessary other than routine body substance precautions. More information regarding radiation safety can be found usingthis link: [email or web address]%20Nuclear%20Medicine%[email or web address] SIGNATURE: Sherly Houston PATIENT NAME: Jermaine Begum DATE: June 18, 2024 TIME: 1:59 PM PAGER/CONTACT #: documented in this encounterOhiohealth Doctors Hospital02-03-2025 NoteHNO ID: [id number] Author: MARILYN SHEPPARD Nuclear Tech Service: Nuclear Medicine Author Type: Coconut Jelly Roller Type: Progress Notes Filed: 06/18/2024 14:00 Note Text: RADIOLOGY SERVICE PROGRESS NOTE SERVICE DATE: 06/18/2024 SERVICE TIME: 1:59 PM PATIENT IDENTITY VERIFICATION COMPLETED USING TWO (2) STANDARD IDENTIFIERS: Name and Date of confirmed by patient verbally FALL SCREENING: Has the patient had 2 falls in the last year or 1 fall with injury or currently using an Ambulatory Assistive Device (Walker, Cane, Wheelchair, Crutches, etc.)? No PATIENT GENDER DATA: .male ALLERGIES: Reviewed and updated MEDICATIONS REVIEWED: No PATIENT RELEVANT IMPLANT DATA REVIEWED: Not Applicable PATIENT PRESENTS WITH AN IMPLANTABLE OR ATTACHED GREENS KEEPER: No CREATININE: Creatinine Date Value Ref Range Status 05/19/2023 1.16 0.73 - 1.22 mg/dL Final 08/20/2022 1.02 0.73 - 1.22 mg/dL Final 02/25/2022 0.90 0.73 - 1.22 mg/dL Final Estimated Glomerular Filtration Rate Date Value Ref Range Status 05/19/2023 64 >=60 mL/min/1.73m? Final Comment: Estimated Glomerular Filtration Rate (eGFR) is calculated using the 2020 CKD-EPI creatinine equation. This equation utilizes serum creatinine, sex, and age as parameters. The creatinine assay has traceable calibration to isotope dilution-mass spectrometry. Refer to KDIGO guidelines for clinical interpretation. In patients with unstable renal function, e.g. those with acute kidney injury, the eGFR may not accurately reflect actual GFR. eGFR- Date Value Ref Range Status 03/30/2021 >60 Final P.O.C.T. RESULTS: N/A June 18, [address] PERFORMED: No IV SITE: Ambulatory: A peripheral IV was started in the Right antecubital site with a Angio cath: 22 gauge. POST EXAM PIV STATUS: Discontinued PROCEDURE TYPE: NM INJECT: PET/CT WHOLE BODY SCAN. 5.4 mCi Ga68- PSMA. No other medications given.. ADMINISTRATION TIME: 1357 PATIENT DISCHARGED TO: Ambulatory patient, left [place] department area. Is this a therapy: No A Diagnostic radioactive procedure has taken place, with no further precautions necessary other than routine body substance precautions. More information regarding radiation safety can be found using this link: [email or web address] 20Diagnostic%20Nuclear%20Medicine%[email or web address] SIGNATURE: Marilyn Sheppard [employer] PATIENT NAME: Jermaine Begum DATE: June 18, 2024 TIME: 1:59 PM PAGER/CONTACT #:[facility]01-24-2025 Telephone encounter Note* Telephone Encounter - Sara Lux - 06/08/2024 8:23 AM EST 06/08 lvm [facility]01-24-2025 Miscellaneous Notes* Telephone Encounter - Sara Lux - 06/08/2024 8:23 AM EST 06/08 lvm * Telephone Encounter - Sheryl Huerta RN - 06/07/2024 12:28 PM EST PSMA Comments for Base Engineer: any site Will the patient need anesthesia: no Primary Insurance: [place] Diagnosis: Prostate cancer (HCC) [C61] Initial/Subsequent: Subsequent Pathology: 06-23-21 Adenocarcinoma of the prostate, Dorothy score 3+4=7 (grade group 2), 95% Labs: 05-23-24 PSA 0.22 07-20-23 PSA 0.03 02-07-23 PSA <0.02 Clinical Notes Reviewed: 05-25-24 Hem Onc Date of last: 11-19-21 Prostate, radical prostatectomy: Radiation Therapy 08-24-22 to 10-13-22 6600 cGy in 33 fractions to pelvis/prostate Chemo Therapy 08-24-22 to Eligard 30 mg x 1 Additional Information/Imaging: N/A Initial:No Subsequent: Yes. Date of Last Image: na Scan: N/A Isotope used: na Positive Scan Schedule as place of last (DOS) MC or Region Negative Scan Schedule at ANY PSMA site requested Isotope used: Region F-18 flotufolastat,18F flotufolastat [place] GA68 PSMA PET 79002/LOCAMETZ (Gallium GA-68 Gozetotide) (6 mCi) A9800 - [place] (Flotufolastat F18) (8mCi), A9608 - Region Auth#: [id number] Date Range: 06-07-24 to 09-04-24 for 1 dos NPI: MARIE BEAVERS [id number] Member ID: Judy [id number] Site/Contact: Berto Case/Ref#: Notes: system auto approved PET/Ct Prostate Route to or Requested Scheduling Pool: P PET APPRAISAL COORDINATOR , P [facility] CLERICAL POOL([place]), P [facility] * Telephone Encounter - Francheska Cheung RN - 06/07/2024 11:23 AM EST This form is used for MAIN CAMPUS APPOINTMENTS ONLY. Is this request for a Main Remlap PET scan appointment? Yes: Rn Neonatal Icu: Francheska Cheung RN Requesting Person (Last Name, First Name): Francheska Cheung RNCC Area Code + Phone/Pager: [facility] #[phone] Who do we call to schedule this appointment? Patient Requesting Staff Marie Beavers MD Area Code + Phone/Pager: N/A PET Orders (A delay in scheduling will result if the orders are not present at time of review): Internal ADDITIONAL ACTION MAY BE REQUIRED IF PATIENTS OON INSURANCE OR SELF PAY COVERAGE HAS NOT BEEN CLEARED FOR REQUESTED APPOINTMENT. Scheduling: RUBI: As soon as insurance will allow What account will this PET appointment be linked to? P/F Type of PET: Oncology: Are there additional diagnostic CT scans required to be done at time of PET scan? No Is the request for a PET MR ? No What account will diagnostic testing appointment be linked to? P/F Will the patient need anesthesia? NO Send requests to P COORD REVIEW MC documented in this encounterOhio[facility]01-23-2025 Telephone encounter Note * Telephone Encounter - Sheryl Huerta RN - 06/07/2024 12:28 PM EST PSMA Comments for Base Engineer: any site Will the patient need anesthesia: no Primary Insurance: [place] Diagnosis: Prostate cancer (HCC) [C61] Initial/Subsequent: Subsequent Pathology: 06-23-21 Adenocarcinoma of the prostate, Jackson score 3+4=7 (grade group 2), 95% Labs: 05-23-24 PSA 0.22 07-20-23 PSA 0.03 02-07-23 PSA <0.02 Clinical Notes Reviewed: 05-25-24 Hem Onc Date of last: 11-19-21 Prostate, radical prostatectomy: Radiation Therapy 08-24-22 to 10-13-22 6600 cGy in 33 fractions to pelvis/prostate Chemo Therapy 08-24-22 to Eligard 30 mg x 1 Additional Information/Imaging: N/A Initial:No Subsequent: Yes. Date of Last Image: na Scan: N/A Isotope used: na Positive Scan Schedule as place of last (DOS) MC or Region Negative Scan Schedule at ANY PSMA site requested Isotope used: Region F-18 flotufolastat,18F flotufolastat [place] GA68 PSMA PET 58112/LOCAMETZ (Gallium GA-68 Gozetotide) (6 mCi) A9800 - [place] (Flotufolastat F18) (8mCi), A9608 - Region Auth#: [id number] Date Range: 06-07-24 to 09-04-24 for 1 dos NPI: MARIE BEAVERS [id number] Member ID: [place] [id number] Site/Contact: Berto Case/Ref#: Notes: system auto approved PET/Ct Prostate Route to or Requested Scheduling Pool: P PET APPRAISAL COORDINATOR MC, P [facility] CLERICAL POOL([place]), Wil[facility]01-23-2025 Telephone encounter Note* Telephone Encounter - Francheska Cheung RN - 06/07/2024 11:23 AM EST This form is used for MAIN CAMPUS APPOINTMENTS ONLY. Is this request for a Main Remlap PET scan appointment? Yes: Rn Neonatal Icu: Francheska Cheung RN Requesting Person (Last Name, First Name): Francheska Cheung [facility] Area Code + Phone/Pager: [facility] #[phone] Who do we call to schedule this appointment? Patient Requesting Staff Marie Beavers MD Area Code + Phone/Pager: N/A PET Orders (A delay in scheduling will result if the orders are not present at time of review): Internal ADDITIONAL ACTION MAY BE REQUIRED IF PATIENTS OON INSURANCE OR SELF PAY COVERAGE HAS NOT BEEN CLEARED FOR REQUESTED APPOINTMENT. Scheduling: RUBI: As soon as insurance will allow What account will this PET appointment be linked to? P/F Type of PET: Oncology: Are there additional diagnostic CT scans required to be done at time of PET scan? No Is the request for a PET MR ? No What account will diagnostic testing appointment be linked to? P/F Will the patient need anesthesia? NO Send requests to P COORD REVIEW MC [facility]01-10-2025 NoteHNO ID: [id number] Author: MARIE BEAVERS MD Service: ? Author Type: Physician Type: Progress Notes Filed: 05/25/2024 21:34 Note Text: [facility] PROGRESS NOTE - TELEPHONE VISIT I have communicated my name and active licensure. The patient's identity and physical location were verified at the time of this visit. Either the patient or their legal benefits representative has been informed of the risks and benefits of -- and alternatives to -- treatment through a remote evaluation and consents to proceed with the evaluation remotely. SERVICE DATE: May 25, 2024 CHIEF COMPLAINT: recurrent prostate cancer ONCOLOGIC HISTORY: Oncology History Prostate cancer (HCC) 06/04/2021 Initial Diagnosis PSA 34.08 MRI Prostate: PI-RADS 5 lesion and +EPE 06/23/2021 Biopsy Gl 7 (4+3), GG3 CaP, 5 of 9 cores positive. 09/08/2021 - 09/08/2021 Hormone Therapy Eligard x 1 11/19/2021 Surgery A. Prostate, radical prostatectomy: -Prostatic adenocarcinoma with therapy effect. -Expansile cribriform morphology is identified. -Intraductal carcinoma of the prostate is identified. -Extraprostatic extension is identified. -Margins and seminal vesicles are negative for malignancy. B. Lymph nodes, bilateral pelvic, excision: -Metastatic prostatic adenocarcinoma involving one of eight lymph nodes (05/23). -Extranodal extension is identified. 07/29/2022 Tumor Markers PSA 07/29/22 - 0.18 05/14/22 - 0.05 02/25/22 - <0.02 08/24/2022 - 10/13/2022 Radiation Therapy 6600 cGy in 33 fractions to pelvis/prostate 08/24/2022 - 12/2022 Hormone Therapy Eligard 30 mg x 1 HISTORY OF PRESENT ILLNESS: Jermaine Begum is a 78 year old male here for virtual follow-up for very high risk prostate cancer s/p surgery and salvage XRT with short course ADT This is a telephone visit. Initially was diagnosed with Dorothy 4+3 disease in setting of PSA of 34.08, clinically very high risk with EPE+ on MRI. More emergently, however, he needed a CABG, so started with ADT alone prior to definitive treatment with radical prostatectomy in November 2021, with [id number] disease. Given that he had gotten ADT prior to surgery, it was difficult to assess PSA kinetics in the setting of castrate levels of testosterone, so we wanted to monitor off ADT to see the evolution of his PSA. PSA ultimately did become detectable so he got 6600 cGy of salvage XRT in August-September 2022 along with a short course of leuprolide (30 mg) INTERVAL HISTORY: Has been dealing with some spinal stenosis that is getting evaluated Otherwise doing well REVIEW OF SYSTEMS: Not performed Past medical, surgical, family, social histories reviewed and updated as needed Medications and allergies reviewed and updated as needed PHYSICAL EXAM: Telephone Visit LABS: Latest Ref Rng 05/23/2024 PSA <2.60 ng/mL 0.22 Testosterone 193 - 824 ng/dL 221 IMAGING: no new imaging IMPRESSION AND PLAN: #pT3pN1 prostate cancer with recurrence 78 y.o. M with resected [id number] prostate cancer here for follow-up s/p salvage XRT and short course ADT. Pt rising up to 0.22 ng/mL. Will evaluate with PSMA PET PLAN: 1) PSMA PET Total Time Spent: 7 min Marie Beavers MD Associate Staff, Genitourinary Medical Oncology May 25, 2024 9:33 [facility]01-10-2025 History of Present illness Narrative * Marie Beavers MD - 05/25/2024 9:29 PM EST [facility] PROGRESS NOTE - TELEPHONE VISIT I have communicated my name and active licensure. The patient's identity and physical location wereverified at the time of this visit. Either the patient or their legal benefits representative has been informed of the risks and benefits of -- and alternatives to -- treatment through a remote evaluation andconsents to proceed with the evaluation remotely. SERVICE DATE: May 25, 2024 CHIEF COMPLAINT: recurrent prostate cancer ONCOLOGIC HISTORY: Oncology History Prostate cancer (HCC) 06/04/2021 Initial Diagnosis PSA 34.08 MRI Prostate: PI-RADS 5 lesion and +EPE 06/23/2021 Biopsy Gl 7 (4+3), GG3 CaP, 5 of 9 cores positive. 09/08/2021 - 09/08/2021 Hormone Therapy Eligard x 1 11/19/2021 Surgery A. Prostate, radical prostatectomy: -Prostatic adenocarcinoma with therapy effect. -Expansile cribriform morphology is identified. -Intraductal carcinoma of the prostate is identified. -Extraprostatic extension is identified. -Margins and seminal vesicles are negative for malignancy. B. Lymph nodes, bilateral pelvic, excision: -Metastatic prostatic adenocarcinoma involving one of eight lymph nodes (05/23). -Extranodal extension is identified. 07/29/2022 Tumor Markers PSA 07/29/22 - 0.18 05/14/22 - 0.05 02/25/22 - <0.02 08/24/2022 - 10/13/2022 Radiation Therapy 6600 cGy in 33 fractions to pelvis/prostate 08/24/202212/2022 Hormone Therapy Eligard 30 mg x 1 HISTORY OF PRESENT ILLNESS: Jermaine Begum is a 78 year old male here for virtual follow-up for very high risk prostate cancers/p surgery and salvage XRT with short course ADT This is a telephone visit. Initially was diagnosed with Dorothy 4+3 disease in setting of PSA of 34.08, clinically very high risk with EPE+ on MRI. More emergently, however, he needed a CABG, so started with ADT alone prior todefinitive treatment with radical prostatectomy in November 2021, with [id number] disease. Given that he had gotten ADT prior to surgery, it was difficult to assess PSA kinetics in the setting of castrate levels of testosterone, so we wanted to monitor off ADT to see the evolution of his PSA. PSA ultimately did become detectable so he got 6600 cGy of salvage XRT in August- September 2022 along witha short course of leuprolide (30 mg) INTERVAL HISTORY: Has been dealing with some spinal stenosis that is getting evaluated Otherwise doing well REVIEW OF SYSTEMS: Not performed Past medical, surgical, family, social histories reviewed and updated as needed Medications and allergies reviewed and updated as needed PHYSICAL EXAM: Telephone Visit LABS: Latest Ref Rng 05/23/2024 PSA <2.60 ng/mL 0.22 Testosterone 193 - 824 ng/dL 221 IMAGING: no new imaging IMPRESSION AND PLAN: #pT3pN1 prostate cancer with recurrence 78 y.o. M with resected [id number] prostate cancer here for follow-up s/p salvage XRT and short courseADT. Pt rising up to 0.22 ng/mL. Will evaluate with PSMA PET PLAN: 1) PSMA PET Total Time Spent: 7 min Marie Beavers MD Associate Staff, Genitourinary Medical Oncology May 25, 2024 9:33 PM documented in this encounterOhiohealth [facility]12-19-2024 Evaluation note* Diagnosis Onset Date Resolution Status Admit Date Abnormal stress test acute Dece mber 2023 10:27am H/O coronary artery bypass surgery September 30, 2021 acute May 03, 2 024 10:27am Dilated aortic root chronic Decem cielo 2023 10:27am Essential hypertension chronic De cember 2023 10:27am Hyperlipidemia chronic April 152023 10:27am Paroxysmal atrial fibrillation chronic May 03, 2 024 10:27am History of coronary artery stent placement October 18, 2014 resolved May 03, 2 024 10:27am [facility] Work Phone: [phone]) 332-677812-13-2024 [facility] Medical Records Department [address] [place] [address] History Physical Exam 04/27/24 1446 MR#: [id number] Acct: [id number] Name: JERMAINE BEGUM Rep #: [id number] : 1945 78 From: Talia MCGEE PCP: Dr. Yecenia Agrawal MD [place] [facility] [place] [facility] History and Physical Date of Admission: 05/03/24 JERMAINE BEGUM, is a 78 M who presents for a diagnostic heart cath for an abnormal stress test. He is a gentleman with a history of hypertension, hyperlipidemia, coronary artery disease status post bare-metal stenting in February 2007 of the proximal circumflex artery. He had been doing well in the interim until October 2014 when he presented with chest discomfort he underwent a cardiac catheterization which demonstrated restenosis of the circumflex artery. He had a drug-eluting stent placed to this vessel. His left anterior descending artery demonstrated less than 50% stenosis in the right coronary artery demonstrated less than 50% stenosis. In August 2020, he was noted to be in atrial fibrillation and was started on anticoagulation and at that time had a negative stress test for ischemia and a Holter monitor demonstrated persistent atrial fibrillation for which he underwent successful DC cardioversion in September of the same year. While he was in [place] in June 2021, he experienced some sharp chest discomfort which went on for approximately 3 days. He was evaluated and discharged with a negative EKG and troponin. As part of his work-up for prostate carcinoma surgery, he underwent a stress test on 08/20/2021. This was considered to be abnormal. He proceeded with a heart catheterization on 08/21/2021 with [facility] that showed severe obstructive multivessel coronary artery disease. He proceeded with CABG x3 with MANTILLA to LAD, SVG to OM1, and SVG PDA on 09/30/[address] Riley. This also comprised of a biatrial Maze procedure (RF with cryo), and SUSHMA appendage clip (35 mm). Postoperatively he was noted to have junctional bradycardia. His anticoagulation and beta-scottie were discontinued upon discharge. He contacted our office expressing concerns regarding dizziness. He proceeded with a Holter monitor on 10/14/2021 that showed normal sinus rhythm with right bundle branch block and atrial fibrillation at 12.9% of total scan. Average heart rate was noted to be 85 bpm. His longest R to R interval was 6 seconds when he convert from atrial fibrillation. He was seen by [facility], Dr. Shree Ochoa, on 11/12/2021 with the plan to continue to observe. He was in the office last month and had noted shortness of breath with exertion when walking fast that improves with rest. This was not necessarily new or has worsened. He also noted some tingling in his hands and he also feels quite fatigued after walking. He really cannot walk much on an incline. He denies any chest pain whatsoever. He had a stress test this demonstrated : Abnormal exercise myocardial perfusion stress test at a moderate workload with basal to mid anterior ischemia. Preserved ejection fraction. Reduced functional capacity [facility] Medical History Prostate cancer Dilated aortic root Incomplete right bundle branch block Internal hemorrhoid Gout Type 2 diabetes mellitus Osteoarthritis Palmar fascial fibromatosis [dupuytren] Atherosclerosis of coronary artery of pilot [place] heart without angina pectoris Essential hypertension History of diverticulosis Hyperlipidemia Surgical History History of radical prostatectomy (11/19/21) H/O coronary artery bypass surgery (09/30/21) History of left heart catheterization (09/03/21) History of cardioversion (09/2020) History of coronary artery stent placement (10/18/14) History of total left hip replacement (03/2016) History of total right hip replacement (1996) History of tonsillectomy and adenoidectomy (1947) History of left knee replacement (2013) History of varicocele (1979) Family History Mother , Age 84 Diabetes Heart disease Father , Age 88 CAD (coronary artery disease) Sister Cancer breast Sister , Age 60 Cancer lymph nodes Social History Smoking Status: Former smoker how long ago did patient quit smoking: Quit smoking cigarettes in 1970, quit cigars 1 month ago alcohol intake: current details: occasional substance use type: does not use caffeine: Yes Type: coffee Number of servings: 2 ROS Const Const: Positive for weakness (in bilateral legs - has back issues); Negative for fatigue, headache(s), daytime sleepiness or difficulty sleeping ENT ENT: Negative for headache(s), dizziness or Nosebleed/e (more content not included)...[facility]06-20-2024 Telephone encounter Note* Telephone Encounter - Precious Deleon MA - 11/03/2023 12:32 PM EDT Pt requested to remove Dr. Rider as PCP and cancel his upcoming appt as scheduled. Precious Deleon MA [facility]06-20-2024 Miscellaneous Notes* Telephone Encounter - Precious Deleon MA - 11/03/2023 12:32 PM EDT Pt requested to remove Dr. Rider as PCP and cancel his upcoming appt as scheduled. Precious Deleon MA documented in this encounterOhiohealth Doctors Hospital06-06-2024 Telephone encounter Note * Telephone Encounter - Faith Hurst RN - 10/20/2023 11:38 AM EDT Pt called in asking for Magnesium results. Let him know 10/02/21 he was 2.1 and 1.7 and 09/30/21 he was 1.9. [facility]06-06-2024 Miscellaneous Notes* Telephone Encounter - Faith Hurst RN - 10/20/2023 11:38 AM EDT Pt called in asking for Magnesium results. Let him know 10/02/21 he was 2.1 and 1.7 and 09/30/21 he was 1.9. documented in this encounterOhiohealth Doctors Hospital04-03-2024 History of Present illness Narrative* Marie Beavers MD - 08/17/2023 10:11 AM EDT [facility] PROGRESS NOTE - TELEPHONE VISIT I have communicated my name and active licensure. The patient's identity and physical location wereverified at the time of this visit. Either the patient or their legal benefits representative has been informed of the risks and benefits of -- and alternatives to -- treatment through a remote evaluation andconsents to proceed with the evaluation remotely. SERVICE DATE: August 17, 2023 CHIEF COMPLAINT: recurrent prostate cancer ONCOLOGIC HISTORY: Oncology History Prostate cancer (HCC) 06/04/2021 Initial Diagnosis PSA 34.08 MRI Prostate: PI-RADS 5 lesion and +EPE 06/23/2021 Biopsy Gl 7 (4+3), GG3 CaP, 5 of 9 cores positive. 09/08/2021 - 09/08/2021 Hormone Therapy Eligard x 1 11/19/2021 Surgery A. Prostate, radical prostatectomy: -Prostatic adenocarcinoma with therapy effect. -Expansile cribriform morphology is identified. -Intraductal carcinoma of the prostate is identified. -Extraprostatic extension is identified. -Margins and seminal vesicles are negative for malignancy. B. Lymph nodes, bilateral pelvic, excision: -Metastatic prostatic adenocarcinoma involving one of eight lymph nodes (05/23). -Extranodal extension is identified. 07/29/2022 Tumor Markers PSA 07/29/22 - 0.18 05/14/22 - 0.05 02/25/22 - <0.02 08/24/2022 - 10/13/2022 Radiation Therapy 6600 cGy in 33 fractions to pelvis/prostate 08/24/2022 - 12/2022 Hormone Therapy Eligard 30 mg x 1 HISTORY OF PRESENT ILLNESS: Jermaine Begum is a 78 year old male here for virtual follow-up for very high risk prostate cancers/p surgery and salvage XRT with short course ADT This is a telephone visit. Initially was diagnosed with Dorothy 4+3 disease in setting of PSA of 34.08, clinically very high risk with EPE+ on MRI. More emergently, however, he needed a CABG, so started with ADT alone prior todefinitive treatment with radical prostatectomy in November 2021, with [id number] disease. Given that he had gotten ADT prior to surgery, it was difficult to assess PSA kinetics in the setting of castrate levels of testosterone, so we wanted to monitor off ADT to see the evolution of his PSA. PSA ultimately did become detectable so he got 6600 cGy of salvage XRT in August- September 2022 along witha short course of leuprolide (30 mg) INTERVAL HISTORY: No residual hot flashes or loose stools. He has been having some acute on chronic low back pain, diagnosed as radicular pain and improved with steroid injection. REVIEW OF SYSTEMS: Not performed Past medical, surgical, family, social histories reviewed and updated as needed Medications and allergies reviewed and updated as needed PHYSICAL EXAM: Telephone Visit LABS: Latest Ref Rng 08/09/2023 PSA <2.60 ng/mL 0.03 Testosterone 193 - 824 ng/dL 173 (L) Legend: (L) Low IMAGING: no new imaging IMPRESSION AND PLAN: #pT3pN1 prostate cancer with recurrence 78 y.o. M with resected [id number] prostate cancer here for follow-up s/p salvage XRT and short courseADT. Pt now with detectable PSA up to 0.03 ng/mL in setting of non-castrate testosterone. Will continue to monitor in six months PLAN: 1) follow-up with PSA and testosterone in 6 months Total Time Spent: 6 minutes Marie Beavers MD Associate Staff, Genitourinary Medical Oncology August 17, 2023 10:22 AM documented in this encounterOhiohealth Doctors Hospital11-20-2023 Miscellaneous Notes* Telephone Encounter - Inés Dumont RN - 04/04/2023 2:30 PM EST Patient having severe back pain constant for past hour. Unable to walk. Protocol recommends ER now,but patient unable to get to car, and unable to help him. Advised to call 911. Patient agreeable. Reason for Disposition [1] SEVERE back pain (e.g., excruciating) AND [2] sudden onset AND [3] age > 60 years Answer Assessment - Initial Assessment Questions 1. ONSET: Lower back pain 4-5 days. Last hour has been excruciating and unable to walk due to pain. 2. LOCATION: Lower back. 3. SEVERITY: Severe 4. PATTERN: Constant for 1 hour. Sitting on edge of seat in kitchen - unable to get up. 5. RADIATION: No radiation. No numbness. 6. CAUSE: Unsure. 7. BACK OVERUSE: For a couple weeks has been doing leaf blowing, last time yesterday. 8. MEDICINES: Takes aleve. Has been bad in middle of night. 9. NEUROLOGIC SYMPTOMS: No numbness. Has leakage due to prostate surgery for quite some time- not related to back pain. 10. OTHER SYMPTOMS: No fever. No abdominal pain. No blood in urine. 11. : N/a Protocols used: Back [id number] documented in this encounterOhiohealth Doctors Hospital09-28-2023 History of Present illness Narrative* Marie Beavers MD - 02/10/2023 1:30 PM EDT [facility] PROGRESS NOTE - TELEPHONE VISIT I have communicated my name and active licensure. The patient's identity and physical location wereverified at the time of this visit. Either the patient or their legal benefits representative has been informed of the risks and benefits of -- and alternatives to -- treatment through a remote evaluation andconsents to proceed with the evaluation remotely. SERVICE DATE: February 10, 2023 CHIEF COMPLAINT: very high risk prostate cancer ONCOLOGIC HISTORY: Oncology History Prostate cancer (HCC) 06/04/2021 Initial Diagnosis PSA 34.08 MRI Prostate: PI-RADS 5 lesion and +EPE 06/23/2021 Biopsy Gl 7 (4+3), GG3 CaP, 5 of 9 cores positive. 09/08/2021 - 09/08/2021 Hormone Therapy Eligard x 1 11/19/2021 Surgery A. Prostate, radical prostatectomy: -Prostatic adenocarcinoma with therapy effect. -Expansile cribriform morphology is identified. -Intraductal carcinoma of the prostate is identified. -Extraprostatic extension is identified. -Margins and seminal vesicles are negative for malignancy. B. Lymph nodes, bilateral pelvic, excision: -Metastatic prostatic adenocarcinoma involving one of eight lymph nodes (05/23). -Extranodal extension is identified. 07/29/2022 Tumor Markers PSA 07/29/22 - 0.18 05/14/22 - 0.05 02/25/22 - <0.02 08/24/2022 - 10/13/2022 Radiation Therapy 6600 cGy in 33 fractions to pelvis/prostate 08/24/2022 - 12/2022 Hormone Therapy Eligard 30 mg x 1 HISTORY OF PRESENT ILLNESS: Jermaine Begum is a 77 year old male here for virtual follow-up for very high risk prostate cancer. This is a telephone visit. Initially was diagnosed with Jackson 4+3 disease in setting of PSA of 34.08, clinically very high risk with EPE+ on MRI. More emergently, however, he needed a CABG, so started with ADT alone prior todefinitive treatment with radical prostatectomy in November 2021, with [id number] disease. Given that he had gotten ADT prior to surgery, it was difficult to assess PSA kinetics in the setting of castrate levels of testosterone, so we wanted to monitor off ADT to see the evolution of his PSA. His testosterone has recovered and his PSA has gone from undetectable to 0.05 INTERVAL HISTORY: Ended up getting 6600 cGy in 33 fractions of salvage RT to pelvis and prostate in August and September 2022. Tolerated well. Has some loose stools, but no overt diarrhea. He feels well. He did get an Eligard shot (30 mg) in August x , and does have some hot flashes. REVIEW OF SYSTEMS: Not performed Past medical, surgical, family, social histories reviewed and updated as needed Medications and allergies reviewed and updated as needed PHYSICAL EXAM: Telephone Visit LABS: Component Latest Ref Rng & Units 02/07/2023 PSA <2.60 ng/mL <0.02 Testosterone 193 - 824 ng/dL <12 (L) IMAGING: no new imaging IMPRESSION AND PLAN: #pT3pN1 prostate cancer 77 y.o. M with resected [id number] prostate cancer here for follow-up. S/p salvage RT with short course ADT. PSA undetectable, but testosterone also remaining at castratelevels. PLAN: 1) follow-up with PSA and testosterone in 6 months Total Time Spent: 7 minutes Marie Beavers MD documented in this encounterOhiohealth Doctors Hospital06-29-2023 History of Present illness Narrative* Artur Mi MD, - 11/11/2022 9:17 AM EDT AMBULATORY TELEPHONE VISIT Jermaine Begum has consented to this telephone encounter. Persons Present: patient Chief Complaint/Reason: Four week follow-up after radiation treatment. HPI: Stage ROGERIO, pT3a pN1, prostate adenocarcinoma with Jackson score 7 (4+3) and pretreatment PSA 34.08 ng/mL s/p Lupron on 09/08/21, s/p robot-assisted radical prostatectomy and bilateral pelvic nodedissection on 11/19/21. PSA loc <0.02 increased to 0.05 on 05/14/22 then to 0.2 on 08/20/22. He calli Lupron. s/p radiation treatment finished on 10/13/22. He is doing well without any specific new complaints. He reports that fatigue has improved. He has bowel movements every 2-3 days but stool is not formed solid. He will try fiber. PSA on 11/08/22 was <0.02. Data Reviewed: Most recent lab. Assessment: He is recovering from acute radiation treatment effects. Plan: He plans to contact Dr. Beavers regarding continuation of hormonal therapy. I offered surveillance care with PSA monitoring with me but he told me that he plans to do that with Rubén Alves/Dr. Beavers. I will see him as needed. Total Time Spent: 5 minutes Artur Mi MD documented in this encounterOhiohealth Doctors Hospital06-05-2023 Miscellaneous Notes* Telephone Encounter - Jaylene Smallwood Ma - 10/18/2022 8:10 AM EDT Pt scheduled for Physical on 05/24/23 at 11 AM. Pt notified via [employer]. * Telephone Encounter - Jaylene Smallwood Ma - 10/15/2022 4:57 PM EDT Pt notified via [employer]. Offered to schedule his physical in May. Will await his response. Jaylene Smallwood Ma * Telephone Encounter - Dee Rider MD - 10/15/2022 4:54 PM EDT OK to wait until next May to get labs and see him back Dee Rider MD * Telephone Encounter - Precious Deleon Ma - 10/15/2022 3:[address] Rider, please review to make sure I'm correct. According to visit in May you told pt to complete visit annually. You placed labs for him to complete in August, which he did. A pt outreachperson placed bulk order for urine albumin order. Does pt need to complete now with an appt in Novemberor okay to complete in May with Annual f/u in May. Want to make sure I'm relaying correct information to pt. Precious Deleon Ma documented in this encounterOhiohealth Doctors Hospital05-31-2023 Nurse Note* Marissa Salvador RN - 10/13/2022 10:40 AM EDT AMBULATORY PATIENT EDUCATION NOTE TOPIC: SURVIVAL SKILLS: Symptom Management READINESS TO LEARN COGNITIVE ABILITY: Alert and oriented MOTIVATION TO LEARN: Eager Interested FAMILY SUPPORT: Unable to assess - Family not present INSTRUCTION PROVIDED TO: Patient PATIENT LEARNS BEST BY: Multiple Methods FACTORS AFFECTING LEARNING: None PHYSICAL LIMITATIONS AFFECTING LEARNING: None LEARNING RESPONSE DIAGNOSIS: C61 METHOD OF INSTRUCTION: Teach Back skin care Individual instruction Written instruction - handouts Verbal instruction PATIENT / FAMILY RESPONSE: Verbalizes understanding of: SYMPTOM MANAGEMENT- Correct actions to take to manage symptoms associated with his/her disease/illness FOLLOW-UP PLAN: Patient instructed to call with any further issues Reinforce - Repeat previous content Contact information given. SUPPLEMENTAL MATERIAL: D/C sheet REFERRAL (RECOMMENDATION): None Written discharge instructions given and reviewed with patient. Patient verbalizes understanding. Encouraged to call with any questions or concerns. Instruction for 4 week phone follow up appointmentgiven by Dr. Mi. Electronically Signed By: Marissa Salvador RN In Department: RADIATION ONCOLOGY Time spent on patient education: 05 minutes. documented in this encounterOhiohealth Doctors Hospital05-31-2023 History of Present illness Narrative* Artur Mi MD, MD - 10/13/2022 12:00 AM EDT JERMAINE BEGUM [id number] : 1945 10/13/2022 [facility] Department of Radiation Oncology RADIATION ONCOLOGY - COMPLETION NOTE DATE OF SIMULATION: 08/13/22 DATES OF TREATMENT: 08/24/22 - 10/13/22 UNIT: [facility] AREA TREATED: Pelvis/prostate bed DISEASE: Stage ROGERIO, pT3a pN1, prostate adenocarcinoma with Dorothy score 7 (4+3) and pretreatment PSA 34.08 ng/mL s/p Lupron on 09/08/21, s/p robot-assisted radical prostatectomy and bilateral pelvic node dissection on 11/19/21. PSA loc <0.02 increased to 0.05 on 05/14/22 then to 0.2 on 08/20/22. He is on Lupron. DELIVERED DOSE: 6600 cGy in 33 fractions. (4600 cGy in 23 fractions treating to the 97.4% isodose line with 10 MV and 4 VMAT chacon followed by 2000 cGy in 10 fractions boost to the prostate bed treating to the 97.5% isodose line with 2 VAMT chacon.) ELAPSED TIME: 50 days. TOLERANCE/ RESPONSE: He has mild fatigue. He had diarrhea managed with conservative measures. REMARKS: He tolerated radiation treatment well. Four week follow-up with me. Staff Physician ARTUR MI M.D. / 31:29 PM Electronically Signed cc: Dee Rider [address] [place] [address] Marie Pearcefabien [address] [facility] [address] [place] [address] [facility] [id number] documented in this encounterOhiohealth Doctors Hospital05-30-2023 Nurse Note* Marissa Salvador RN - 10/12/2022 11:[address] Mi's orders to help relieve gas prior to radiation treatment, #14 fr cath inserted via rectum to 10cm and held in place for about 1 min then removed. Pt tolerated well. documented in this encounterOhiohealth Doctors Hospital05-09-2023 History of Past illness Narrative* Problem Noted Date Diagnosed Date Resolved Date Chronic bronchitis, unspecif ied chronic bronchitis type 09/21/2022 05/24/2023 Hypervolemia 10/01/2021 10/04/2021 Overview: History: Postop Assessment:Net negative 2 L x 24 hours, on 40mg Qid with rising BUN, drop in creatinine & improvement in NA Plan: Reduce Lasix Coronary artery disease due to calcified coronary lesion 09/30/2021 10/05/2021 Atelectasis 09/30/2021 10/04/2021 Overview: History: Postop. Grade I airway. Assessment: Bibasilar atelectasis on CXR. Adequate oxygenation on 2L NC. Plan: BPH, OOB, and pep therapy. Wean O2 as able. Hypovolemia 09/30/2021 10/04/2021 Overview: History: Post-op Assessment: Post op fluid shifts Plan: IVF replacement prn Pain, postoperative, acute 09/30/2021 0 10/04/2021 Overview: History: 09/30/2021: CABG x 3, MAZE, LAAC Assessment: Voices adequate pain control. Plan: Scheduled Tylenol, lidocaine patches, and PRN oxycodone Junctional bradycardia 09/30/202110/03 Overview: See paroxysmal atrial fibrillation Coronary artery disease invo lving pilot point coronary artery of pilot [place] heart without angina pectoris 08/27/2021 09/30/2021 documented as of this encounter (statuses as of 08/17/2023) [facility] Nurse Note* Sweta Infante RN - 09/21/2022 9:52 AM EDT Radiation Therapy - Nursing Note (OTV) PATIENT NAME: Jermaine Begum PATIENT September 21, 2022 [facility] FACILITY/LOCATION: [place] NURSING NOTE TYPE: PROSTATE - MALE PELVIS Subjective Data some fatigue, diarrhea , 2 gas x in the am, nothing else Additional Data Do you want to see a Seamless Tube Roller? No Status: Patient is male Stress Scale: On a scale of 0 to 10, what number best describes how much distress you have experienced in the past week?(0 being no distress and 10 being extreme distress) 2 Social work notified: Pt denied need to see secondary social studies teacher at this time. Nursing Assessment Fatigue: increased fatigue over baseline but not altering normal activities Appetite: good Nutritional Intake: Regular oral intake. Weight Gain/Loss: No Ambulatory weight history: Last 6 Encounter Wt Readings: Date: Wt: 09/07/2022 97.5 kg (215 lb) 08/31/2022 104.7 kg (230 lb 12.8 oz) 06/07/2022 106.1 kg (234 lb) 05/20/2022 104.2 kg (229 lb 12.8 oz) 03/09/2022 99.3 kg (219 lb) 12/30/2021 98.4 kg (216 lb 14.4 oz) Nausea:None Vomiting: None Bowel Function: diarrhea last night about 6-7 times, no BM yet today Erythema/Hyperpigmentation:none Desquamation:none Rash:none Skin Care: None Skin Sensation: Within Normal Limits Focused Assessment PROSTATE - MALE PELVIS: Rectal bleeding: Minimal. Rectal pain: No. Bladder function: no problems. Urinary frequency (D/N): doing better/stable. SIGNED by: Sweta Infante RN documented in this encounterOhiohealth Doctors Hospital05-09-2023 History of Present illness Narrative* Artur Mi MD, MD - 09/21/2022 9:50 AM EDT Radiation Oncology - On Treatment Review (OTR) Note PATIENT NAME: Jermaine Begum PATIENT DIAGNOSIS: Stage ROGERIO, pT3a pN1, prostate adenocarcinoma with Dorothy score 7 (4+3) and pretreatmentPSA 34.08 ng/mL s/p Lupron on 09/08/21, s/p robot-assisted radical prostatectomy and bilateral pelvic node dissection on 11/19/21. PSA loc <0.02 increased to 0.05 on 05/14/22 then to 0.2 on 08/20/22. COURSE: salvage AREA TREATED: Pelvis/prostate bed. CURRENT DOSE: 3800 cGy in 19 fx PLANNED DOSE: 6600 cGy in 33 fx SUBJECTIVE: He had episodes of frequent loose stool but not yesterday or today. EXAM: KPS: 90 General Appearance: Alert and oriented. No acute distress. IMAGING/LAB RESULTS: None Treatment chart checked: Yes Patient treatment site reviewed and verified:Yes CBCTs reviewed and current:Yes Medications started: Gas X before each treatment. ASSESSMENT/PLAN: Clinically stable. Toxicity within expected parameters. Continue radiation treatment as planned. Artur Mi MD documented in this encounterOhiohealth Doctors Hospital05-03-2023 Nurse Note* Marissa Salvador RN - 09/15/2022 10:[address] Mi's orders to help relieve gas prior to radiation treatment, #14 fr cath inserted via rectum to 10cm and held in place for about 1 min then removed. Pt tolerated well. documented in this encounterOhiohealth Doctors Hospital05-02-2023 Nurse Note* Marissa Salvador RN - 09/14/2022 9:45 AM EDT Radiation Therapy - Nursing Note (OTV) PATIENT NAME: Jermaine Begum PATIENT September 14, 2022 [facility] FACILITY/LOCATION: [place] NURSING NOTE TYPE: PROSTATE - MALE PELVIS Subjective Data No c/o Additional Data Do you want to see a Seamless Tube Roller? No Status: Patient is male Stress Scale: On a scale of 0 to 10, what number best describes how much distress you have experienced in the past week?(0 being no distress and 10 being extreme distress) 4 Social work notified: Pt denied need to see secondary social studies teacher at this time. Nursing Assessment Fatigue: increased fatigue over baseline but not altering normal activities Appetite: good Nutritional Intake: Regular oral intake. Weight Gain/Loss: No Ambulatory weight history: Last 6 Encounter Wt Readings: Date: Wt: 09/07/2022 97.5 kg (215 lb) 08/31/2022 104.7 kg (230 lb 12.8 oz) 06/07/2022 106.1 kg (234 lb) 05/20/2022 104.2 kg (229 lb 12.8 oz) 03/09/2022 99.3 kg (219 lb) 12/30/2021 98.4 kg (216 lb 14.4 oz) Nausea:None Vomiting: None Bowel Function: diarrhea 1 - abdominal cramping; two or less soft or liquid bowel Erythema/Hyperpigmentation:none Desquamation:none Rash:none Skin Care: Aquaphor Skin Sensation: Within Normal Limits Focused Assessment PROSTATE - MALE PELVIS: Rectal bleeding: No. Rectal pain: No. Bladder function: no problems, incontinence. Urinary frequency (D/N): same/2. SIGNED by: Marissa Salvador RN * Marissa Salvador RN - 09/14/2022 9:[address] Mi's orders to help relieve gas prior to radiation treatment, #14 fr cath inserted via rectum to 10cm and held in place for about 1 min then removed. Pt tolerated well. documented in this encounterOhio[facility]05-02-2023 History of Present illness Narrative* Artur Mi MD, MD - 09/14/2022 9:38 AM EDT Radiation Oncology - On Treatment Review (OTR) Note PATIENT NAME: Jermaine Begum PATIENT DIAGNOSIS: Stage ROGERIO, pT3a pN1, prostate adenocarcinoma with Dorothy score 7 (4+3) and pretreatmentPSA 34.08 ng/mL s/p Lupron on 09/08/21, s/p robot-assisted radical prostatectomy and bilateral pelvic node dissection on 11/19/21. PSA loc <0.02 increased to 0.05 on 05/14/22 then to 0.2 on 08/20/22. COURSE: salvage AREA TREATED: Pelvis/prostate bed. CURRENT DOSE: 2800 cGy in 14 fx PLANNED DOSE: 6600 cGy in 33 fx SUBJECTIVE: He has mild fatigue. He had episodes of loose stool over the weekend but it resolved onay. EXAM: KPS: 90 General Appearance: Alert and oriented. No acute distress. IMAGING/LAB RESULTS: None Treatment chart checked: Yes Patient treatment site reviewed and verified:Yes CBCTs reviewed and current:Yes Medications started: Gas X before each treatment. ASSESSMENT/PLAN: Clinically stable. Toxicity within expected parameters. Continue radiation treatment as planned. Artur Mi MD documented in this encounterOhio[facility]05-01-2023 Nurse Note* Marissa Salvador RN - 09/13/2022 9:[address] Mi's orders to help relieve gas prior to radiation treatment, #14 fr cath inserted via rectum to 10cm and held in place for about 1 min then removed. Pt tolerated well. documented in this encounterOhiohealth [facility] Hospital04-28-2023 Nurse Note* Marissa Salvador RN - 09/10/2022 9:[address] Mi's orders to help relieve gas prior to radiation treatment, #14 fr cath inserted via rectum to 10cm and held in place for about 1 min then removed. Pt tolerated well. documented in this encounterOhiohealth [facility] Hospital04-27-2023 Nurse Note* Marissa Salvador RN - 09/09/2022 10:[address] Mi's orders to help relieve gas prior to radiation treatment, #14 fr cath inserted via rectum to 10cm and held in place for about 1 min then removed. Pt tolerated well. documented in this encounterOhiohealth [facility] Hospital04-26-2023 Nurse Note* Sweta Infante RN - 09/08/2022 3:[address] Mi's orders to help relieve gas prior to radiation treatment, #14 fr cath inserted via rectum to 10cm and held in place for about 1 min then removed. Pt lisa. well. documented in this encounterOhiohealth [facility] Hospital04-25-2023 Nurse Note* Sweta Infante RN - 09/07/2022 10:[address] Mi's orders to help relieve gas prior to radiation treatment, #14 fr cath inserted via rectum to 10cm and held in place for about 1 min then removed. Pt lisa. well * Sweta Infante RN - 09/07/2022 9:47 AM EDT Radiation Therapy - Nursing Note (OTV) PATIENT NAME: Jermaine Begum PATIENT September 07, 2022 [facility] FACILITY/LOCATION: [place] NURSING NOTE TYPE: PROSTATE - MALE PELVIS Subjective Data not eating a lot since he has been taking the mag citrate Additional Data Do you want to see a Seamless Tube Roller? No Status: Patient is male Stress Scale: On a scale of 0 to 10, what number best describes how much distress you have experienced in the past week?(0 being no distress and 10 being extreme distress) 2 Social work notified: Pt denied need to see secondary social studies teacher at this time. Nursing Assessment Fatigue: none Appetite: fair Nutritional Intake: Regular oral intake. Weight Gain/Loss: Yes about a pound a day due to mag citrate Ambulatory weight history: Last 6 Encounter Wt Readings: Date: Wt: 08/31/2022 104.7 kg (230 lb 12.8 oz) 06/07/2022 106.1 kg (234 lb) 05/20/2022 104.2 kg (229 lb 12.8 oz) 03/09/2022 99.3 kg (219 lb) 12/30/2021 98.4 kg (216 lb 14.4 oz) 11/17/2021 93 kg (205 lb) Nausea:None Vomiting: None Bowel Function: taking mag citrate 1 bottle Erythema/Hyperpigmentation:none Desquamation:none Rash:none Skin Care: None Skin Sensation: Within Normal Limits Focused Assessment PROSTATE - MALE PELVIS: Rectal bleeding: No. Rectal pain: No. Bladder function: no problems. Urinary frequency (D/N): stable/improving. SIGNED by: Sweta Infante RN documented in this encounterOhiohealth [facility] Hospital04-25-2023 History of Present illness Narrative* Artur Mi MD, MD - 09/07/2022 9:56 AM EDT Radiation Oncology - On Treatment Review (OTR) Note PATIENT NAME: Jermaine Begum PATIENT DIAGNOSIS: Stage ROGERIO, pT3a pN1, prostate adenocarcinoma with Dorothy score 7 (4+3) and pretreatmentPSA 34.08 ng/mL s/p Lupron on 09/08/21, s/p robot-assisted radical prostatectomy and bilateral pelvic node dissection on 11/19/21. PSA loc <0.02 increased to 0.05 on 05/14/22 then to 0.2 on 08/20/22. COURSE: salvage AREA TREATED: Pelvis/prostate bed. CURRENT DOSE: 1800 cGy in 9 fx PLANNED DOSE: 6600 cGy in 33 fx SUBJECTIVE: He is doing well without any specific new complaints related to radiation treatment. EXAM: KPS: 90 General Appearance: Alert and oriented. No acute distress. IMAGING/LAB RESULTS: None Treatment chart checked: Yes Patient treatment site reviewed and verified:Yes CBCTs reviewed and current:Yes Medications started: None ASSESSMENT/PLAN: Clinically stable. No signs of toxicity. Continue radiation treatment as planned. Artur Mi MD documented in this encounterOhiohealth [facility] Hospital04-21-2023 Nurse Note* Sweta Infante RN - 09/03/2022 12:[address] Mi's orders to help relieve gas prior to radiation treatment, #14 fr cath inserted via rectum to 10cm and held in place for about 1 min then removed. Pt lisa. well documented [facility]20[facility] History of Present illness Narrative* Sweta Infante RN - 09/02/2022 9:[address] Mi's orders to help relieve gas prior to radiation treatment, #14 fr cath inserted via rectum to 10cm and held in place for about 1 min then removed. Pt lisa. well. documented in this encounterOhiohealth [facility] Hospital04-14-2023 Nurse Note* Marissa Salvador RN - 08/27/2022 3:[address] Mi's orders to help relieve gas prior to radiation treatment, #14 fr cath inserted via rectum to 10cm and held in place for about 1 min then removed. Small amount of brown stool noted in tip of catheter. Pt lisa. well. Pt educated on the use of magnesium citrate for constipation per instruction of Dr Mi. Pt to use 1/2 to1 bottle daily until he has a bowel movement. Pt will hold Mirilax until he has a bowel movement and then will resume and reserve magnesium citrate as needed for constipation. Pt verbalized understanding. documented in this encounterOhiohealth [facility] Hospital04-12-2023 Nurse Note* Sweta Infante RN - 08/25/2022 11:[address] Mi's orders to help relieve gas prior to radiation treatment, #14 fr cath inserted via rectum to 10cm and held in place for about 1 min then removed. Small amount of brown stool noted in tip of catheter. Pt lisa. well. documented in this encounterOhiohealth [facility] Hospital04-11-2023 History of Present illness Narrative* Arely Baxter LPN - 08/24/2022 2:09 PM EDT Verified name and date of . Patient given Eligard 30 MG SQ in abdomen LLQ, verified with nurse, Ondina Griffiths LPN. Explainedand patient tolerated well. Site without redness or swelling. Bandaid applied. Patient discharged ambulatory and to follow up as directed by Rubén Alves PA-C. Arely Baxter LPN documented in this encounterOhiohealth [facility] Hospital04-11-2023 History of Present illness Narrative* Artur Mi MD, - 08/24/2022 10:10 AM EDT Radiation Oncology - On Treatment Review (OTR) Note PATIENT NAME: Jermaine Begum PATIENT DIAGNOSIS: Stage ROGERIO, pT3a pN1, prostate adenocarcinoma with Dorothy score 7 (4+3) and pretreatmentPSA 34.08 ng/mL s/p Lupron on 09/08/21, s/p robot-assisted radical prostatectomy and bilateral pelvic node dissection on 11/19/21. PSA loc <0.02 increased to 0.05 on 05/14/22 then to 0.2 on 08/20/22. COURSE: salvage AREA TREATED: Pelvis/prostate bed. CURRENT DOSE: 200 cGy in 1 fx PLANNED DOSE: 6600 cGy in 33 fx SUBJECTIVE: He is doing well without any specific new complaints. EXAM: KPS: 90 General Appearance: Alert and oriented. No acute distress. IMAGING/LAB RESULTS: None Treatment chart checked: Yes Patient treatment site reviewed and verified:Yes CBCTs reviewed and current:Yes Medications started: None ASSESSMENT/PLAN: Clinically stable. No signs of toxicity. Continue radiation treatment as planned. Artur Mi MD documented in this encounterOhio[facility]04-11-2023 Nurse Note* Sweta Infante RN - 08/24/2022 10:02 AM EDT Radiation Therapy - Nursing Note (OTV) PATIENT NAME: Jermaine Begum PATIENT August 24, 2022 [facility] FACILITY/LOCATION: [place] NURSING NOTE TYPE: PROSTATE - MALE PELVIS Subjective Data no complaints Additional Data Do you want to see a Seamless Tube Roller? No Status: Patient is male Stress Scale: On a scale of 0 to 10, what number best describes how much distress you have experienced in the past week?(0 being no distress and 10 being extreme distress) 1 Social work notified: Pt denied need to see secondary social studies teacher at this time. Nursing Assessment Fatigue: none Appetite: good Nutritional Intake: Regular oral intake. Weight Gain/Loss: No Ambulatory weight history: Last 6 Encounter Wt Readings: Date: Wt: 06/07/2022 106.1 kg (234 lb) 05/20/2022 104.2 kg (229 lb 12.8 oz) 03/09/2022 99.3 kg (219 lb) 12/30/2021 98.4 kg (216 lb 14.4 oz) 11/17/2021 93 kg (205 lb) 11/17/2021 97.5 kg (214 lb 14.4 oz) Nausea:None Vomiting: None Bowel Function: constipation taking miralax daily Erythema/Hyperpigmentation:none Desquamation:none Rash:none Skin Care: None Skin Sensation: Within Normal Limits Focused Assessment PROSTATE - MALE PELVIS: no complaints SIGNED by: Sweta Infante RN documented in this encounterOhiohealth [facility] Hospital04-04-2023 Miscellaneous Notes* Telephone Encounter - Arely Baxter LPN - 08/17/2022 4:34 PM EDT [employer] message sent. Arely Baxter LPN * Telephone Encounter - Arely Baxter LPN - 08/17/2022 4:20 PM EDT Images from the original note were not included. Patient stopped by clinic- reports he had his phone on silence on accident. Requested clarificationand to send response to [employer] along with appointment. Patient would like clarification since he had PSA done July 29, 2022. Informed patient I needed tocck charting and would let him know. Arely Alves PA-C Yesterday (12:36 PM) Have him do labs before getting Eligard then he needs scheduled for Eligard Injection on nurse schedule And PSA and Total Testosterone in 4 months I gael order the 4 month once he has the shot ROD Cadena, ORJULES * Telephone Encounter - Arely Baxter LPN - 08/17/2022 3:05 PM EDT Called patient. No answer- left message to call clinic. Arely Baxter LPN * Telephone Encounter - Arely Baxter LPN - 08/17/2022 11:43 AM EDT Called patient. No answer- left message that I will call him later this afternoon or he is welcome to call and leave list of questions. Arely Baxter LPN * Telephone Encounter - Maia Floyd LPN - 08/17/2022 11:13 AM EDT Patient called, verified name and date of , regarding missed phone call. Read Rubén Alves message back to patient. Patient had multiple questions about radiation & retesting of blood. Advised patient will send a message to urology staff to call patient back, Patient verbalized understanding. Maia Floyd LPN * Telephone Encounter - Arely Baxter LPN - 08/17/2022 9:46 AM EDT Called patient. No answer- left message to call clinic. [employer] message sent Arely Baxter LPN * Telephone Encounter - Arely Baxter LPN - 08/16/2022 1:07 PM EDT Called patient. No answer- left message to call clinic. 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 I can try to get a 6 month Lupron but its been sketchy with then since the pandemic. Do you also want him on a few month of Casodex as well? And hopefully he is on Vitamin Supplement too. Let me know when you want to start, I will have him do PSA and T Testosterone prior and then 4 or 6month prior to next injection. Anything else needed, let me know. Dr. Mi will be retiring so is he going to follow with Dr. Kat another oncologist here? ROD Cadena, [place], PAEsteban documented in this encounterOhiohealth [facility] Hospital04-04-2023 History of Present illness Narrative* Jacquelyn Heller, PT - 08/17/2022 2:54 PM EDT Episode Visit Count: 4 Therapist That Will Accept/Oversee The Plan Of Care: Jacquelyn Heller Start of Care Date: 06/04/22 Onset Date: 11/19/21 Plan of Care Certification Date: 06/04/22 Next Certification Due Date: 09/02/22 Patient Identified by Name and Date of : Yes REHABILITATION AND SPORTS THERAPY PHYSICAL THERAPY TREATMENT NOTE ASSESSMENT: Jermaine Begum tolerated the session with no issues. He demonstrated slight improvement in nocturia and morning time UI per patient report. The patient will continue to benefit from ongoing skilled physical therapy to progress toward set goals. PLAN FOR NEXT VISIT: attempt standing rows/pull downs with PF bracing SUBJECTIVE: Patient Reason for Visit: Pt reports only waking up 1x to urinate one night since last visit. Pt reports noticing improvement in bladder function in the morning time. Pt reports good compliance with HEP. Pain: Pain Pain Level: 0 Post Treatment Pain Post Treatment Pain Level: 0 OBJECTIVE MEASURES WITH LEVEL OF FUNCTION: Pelvic Floor Stress Incontinence: Position change, Walking, Cough/sneeze Nocturia (times per night): (1-2) TREATMENT: Therapeutic Exercise: 1: standing quick kegals, 1x10 2: *standing hip abduction with PF bracing, 2x10 each 3: *standing hip extension with PF bracing, 2x10 each 4: Reviewed functional kegals Skilled Intervention: Patient was educated in proper exercise technique and purpose for exercises. Reviewed and educated patient on additions/changes for home exercise program as above (*). Skilled judgment was provided in selection of appropriate interventions. Provided written instruction for home exercise program to facilitate proper performance and compliance. Billing Therapeutic Exercise Treatment Minutes: 38 Total Treatment Time Minutes (timed/untimed): 38 Jacquelyn Heller PT documented in this encounterOhiohealth [facility] Hospital03-31-2023 History of Present illness Narrative* Corby Elliott MD - 08/13/2022 12:00 AM EDT JERMAINE BEGUM [id number] 08/13/2022 [facility] Department of Radiation Oncology [facility] RADIATION ONCOLOGY SIMULATION NOTE DATE OF SIMULATION: 08/13/2022 MACHINE: [employer] CT DIAGNOSIS: Malignant neoplasm of prostate AREA:pelvis resim PROTOCOL: None PATIENT POSITION: Supine. CONTRAST: None BLOCKING: Custom blocking to be determined at the time of treatment planning. FIELD ARRANGEMENT: Field arrangement will be determined after plan has been completed. FIXATION DEVICE: In order to achieve accurate and reproducible treatments, the patient is to be immobilized with a vacbag. A time-out was conducted and recorded by the therapist. CT scan was completed for target localization and planning. The patient is scheduled for a verification simulation on the treatment machine to ensure proper set-up and field arrangement is correct prior to the first treatment of primary and boost chacon if applicable. Patient education will be completed per nursing. Electronically Signed Corby Elliott M.D. :42 PM documented in this encounterOhiohealth Doctors Hospital03-31-2023 History of Present illness Narrative* Artur Mi MD, MD - 08/13/2022 12:00 AM EDT JREMAINE BEGUM [id number] 08/13/2022 [facility] Department of Radiation Oncology Treatment Planning Note For reasons stated in the consult note, Jermaine Begum is a candidate for radiation therapy. Based on review and interpretation of the relevant diagnostic studies together with the exam findings, Jermaine Begum was simulated on 08/13/2022 at which time the target volume and/or requisite chacon were del ineated, as indicated in the simulation note, to be treated according to the prescription. The treatment target and organs at risk were contoured on the simulation scan Using the fused CT . Special consideration to these and other structures was given in light of the potential for increased toxicities of presence of prosthesis in treatment field. After reviewing multiple treatment plans with dosimetry, the best plan was approved to deliver the prescribed course of radiation to the target area using inverse planning to allow for the best isodose distribution, treating to the 97.4% isodose line with 10 MV and 4 VMAT chacon. Custom MLC for IMRT were the treatment device(s) used to shape/modify the beams. Limiting dose to normal tissue was confirmed upon review of the calculated dose volume histogram. IMRT planning was used because it best met the dose/volume constraints for the organs at risk for this patient, better than what could be achieved using conventional or 3D planning. The specific doserequirements for the PTV, organs at risk and dose-volume histograms are contained in this treatmentplan and/or elsewhere in the medical record. A completed summary of this plan dated 08/23/22 incorporated herein by reference includes dose, beamarrangements, energy, blocking, isodose distribution, and/or ports and DVH. Electronically Signed Artur Mi M.D. 0:57 AM documented in this encounterOhiohealth [facility] Hospital03-27-2023 History of Present illness Narrative* Corby Elliott MD - 08/09/2022 12:00 AM EDT JERMAINE BEGUM [id number] 08/09/2022 [facility] Department of Radiation Oncology [facility] RADIATION ONCOLOGY SIMULATION NOTE DATE OF SIMULATION: 08/09/2022 MACHINE: [employer] CT DIAGNOSIS: Prostate cancer AREA:Pelvis PROTOCOL: None PATIENT POSITION: Supine. CONTRAST: None BLOCKING: Custom blocking to be determined at the time of treatment planning. FIELD ARRANGEMENT: Field arrangement will be determined after plan has been completed. FIXATION DEVICE: In order to achieve accurate and reproducible treatments, the patient is to be immobilized with a vacbag. A time-out was conducted and recorded by the therapist. CT scan was completed for target localization and planning. The patient is scheduled for a verification simulation on the treatment machine to ensure proper set-up and field arrangement is correct prior to the first treatment of primary and boost chacon if applicable. Patient education will be completed per nursing. Electronically Signed Corby Elliott M.D. :51 PM documented in this encounterOhiohealth [facility] Hospital03-21-2023 History of Present illness Narrative* Jacquelyn Heller, PT - 08/03/2022 3:04 PM EDT Episode Visit Count: 2 Therapist That Will Accept/Oversee The Plan Of Care: Jacquelyn Heller Start of Care Date: 06/04/22 Onset Date: 11/19/21 Plan of Care Certification Date: 06/04/22 Next Certification Due Date: 09/02/22 Patient Identified by Name and Date of : Yes REHABILITATION AND SPORTS THERAPY PHYSICAL THERAPY PROGRESS REPORT PLAN OF CARE UPDATE: Assessment: Jermaine Begum demonstrates improvements in core strength, pelvic floor strength, urinary frequency. He has progressed toward goals. Patient continues to present with impairments in urinary incontinence. He will benefit from continued skilled therapy services to meet the updated goals for this plan of care as noted below. Goals for Episode of Care: created on 06/04/22 Updated on: 08/05/22 [place] in home exercise program.-PROGRESSING Patient will demonstrate increase in core strength to at least 4/5 during manual muscle testing in order to improve function for prior functional Tasks.-MET Incontinence: Patient to urinate every 2-4 hours-MET Increase strength of pelvic floor to Power: at least 3/5-MET Patient able to cough, sneeze, lift and/or exercise without leaking-NOT MET Patient Goals: improve bladder function Planned Interventions, Frequency, and Duration: 1x/week, 4 weeks (reassess at 4 weeks and progress as indicated) Total Number of Visits Planned: 4 Patient to be seen for Therapeutic exercise (45209), Manual therapy (03821), Self-half-way management ([id number]), Patient/Family/Caregiver Education PLAN FOR NEXT VISIT: progress exercises as tolerated SUBJECTIVE: Patient Reason for Visit: Pt reports no change in bladder function since IE two months ago (pt was in [place] the past couple months). Pt reports good compliance with kegals, has not performed hip adduction exercise. Pain: Pain Pain Level: 0 Post Treatment Pain Post Treatment Pain Level: 0 PROMIS Scales Higher is Better 08/02/2022 06/01/2022 Phys Func - Score 45 (within normal limits) 47 (within normal limits) Phys Func - Percentile 31 % 38 % Self-Eff Symptom - Score 42 (Average) 53 (Average) Self-Eff Symptom - Percentile 21 % 62 % T-scores: mean of general population = 50. 5 points is clinically meaningfully difference Percentiles provide an indication of how the patient's score ranks in relation to the general population. Higher percentile rankings indicate better function/quality of life. 50th percentile is the average of the general population and indicates half of respondents had a worse score. OBJECTIVE MEASURES WITH LEVEL OF FUNCTION: Pelvic Floor Stress Incontinence: Position change, Walking, Cough/sneeze Nocturia (times per night): (1-3) Daytime Frequency (hours): 2-3 Pelvic Floor Muscle Assessment Consent for pelvic assessment/testing and treatment: Patient was educated regarding pelvic floor physical therapy assessment/treatment which may include pelvic floor and girdle muscle assessment externally or internally (vaginal or rectal approach)., Patient verbalized consent for the above treatment approaches today. Patient understands they have control of the treatment and an opportunity to stop treatment at any time. Pelvic Floor Muscle Assessment: PERFECT, Muscle Dynamics Power: 3 Endurance: 20 Fast Reps: 10 Contracton Pressure: Moderate squeeze, felt all the way around finger surface Duration of Contraction: >3 seconds Recruitment of pelvic floor muscles: Coordinated Range of Motion: Normal Ability to Lengthen pelvic floor: Yes Pelvic Floor Manual Assessment Pelvic Floor Tenderness/Hyperactivity: Tested Rectally in Tested Rectally in : Sidelying (No tightness/tenderness noted.) LE Strength Trunk Strength: Lower Abdominals: 4/5 TREATMENT: Therapeutic Exercise: 1: Reassessment 2: *kegal holds, 10sec hold with 5sec rest, 2x10 3: *bridge with glute activation, 2x10 4: *hooklying hip abduction, L4 TB, 2x10 5: *supine TA bracing, 2x10 Skilled Intervention: Patient was educated in proper exercise technique and purpose for exercises. Reviewed and educated patient on additions/changes for home exercise program as above (*). Skilled judgment was provided in selection of appropriate interventions. Provided written instruction for home exercise program to facilitate proper performance and compliance. Self-Half-Way Management: 1: Reviewed expected timeline and goals for PFPT based on current procedure Skilled Intervention: Skilled judgment in the selection of proper modification for activity of daily living/home management based on clinical presentation, deficits, and needs. Billing Therapeutic Exercise Treatment Minutes: 36 Self-Care/Home Management Treatment Minutes: 4 Total Treatment Time Minutes (timed/untimed): 40 Jacquelyn Heller PT documented in this encounterOhiohealth Doctors Hospital01-27-2023 History of Present illness Narrative* Marie Beavers MD - 06/11/2022 11:17 PM EST [facility] PROGRESS NOTE - TELEPHONE VISIT SERVICE DATE: June 11, 2022 CHIEF COMPLAINT: very high risk prostate cancer ONCOLOGIC HISTORY: Oncology History Prostate cancer (HCC) 06/04/2021 Initial Diagnosis PSA 34.08 MRI Prostate: PI-RADS 5 lesion and +EPE 06/23/2021 Biopsy Gl 7 (4+3), GG3 CaP, 5 of 9 cores positive. 09/08/2021 - 09/08/2021 Hormone Therapy Eligard x 1 11/19/2021 Surgery A. Prostate, radical prostatectomy: -Prostatic adenocarcinoma with therapy effect. -Expansile cribriform morphology is identified. -Intraductal carcinoma of the prostate is identified. -Extraprostatic extension is identified. -Margins and seminal vesicles are negative for malignancy. B. Lymph nodes, bilateral pelvic, excision: -Metastatic prostatic adenocarcinoma involving one of eight lymph nodes (05/23). -Extranodal extension is identified. HISTORY OF PRESENT ILLNESS: Jermaine Begum is a 76 year old male here for virtual follow-up for very high risk prostate cancer. This is a telephone visit. Initially was diagnosed with Dorothy 4+3 disease in setting of PSA of 34.08, clinically very high risk with EPE+ on MRI. More emergently, however, he needed a CABG, so started with ADT alone prior todefinitive treatment with radical prostatectomy in November 2021, with [id number] disease. Given that he had gotten ADT prior to surgery, it was difficult to assess PSA kinetics in the setting of castrate levels of testosterone, so we wanted to monitor off ADT to see the evolution of his PSA. His testosterone has recovered and his PSA has gone from undetectable to 0.05 REVIEW OF SYSTEMS: Not performed Past medical, surgical, family, social histories reviewed and updated as needed Medications and allergies reviewed and updated as needed PHYSICAL EXAM: Telephone Visit LABS: PSA 05/14/22 - 0.05 IMAGING: no new imaging IMPRESSION AND PLAN: #pT3pN1 prostate cancer 76 y.o. M with resected [id number] prostate cancer here for follow-up. We had deferred any adjuvant treatment since we were not able to understand his PSA kinetics postoperatively since he got ADT preoperatively. His PSA has now risen from undetectable to 0.05. Agree with plan to monitor and check in July; likely salvage RT if continues to rise. ADT decisionbased on absolute PSA level and discussion with patient. Will chat with him after repeat PSA in July. He stated he will reach out when he gets that drawn. I spent a total of 15 minutes on the date of the service which included preparing to see the patient, [id number] patient care, completing clinical documentation, obtaining and/or reviewing separately obtained history, counseling and educating the patient/family/caregiver, and ordering medications, tests, or procedures. Marie Beavers MD Associate Staff, Genitourinary Medical Oncology June 11, 2022 11:20 PM documented in this encounterOhiohealth Doctors Hospital01-23-2023 Nurse Note* Marissa Salvador RN - 06/07/2022 9:40 AM EST Radiation Therapy - Nursing Note (Consult) PATIENT NAME: eJrmaine Begum PATIENT June 07, 2022 [facility] FACILITY/LOCATION: [place] Chief Complaint: consult for prostate cancer Reason for visit: Consult. Referring physician: Internal provider Dr Hampton Subjective Data: pt reports just finding out about therapy for urinary incontinence, pt saw Jacquelyn Lombardo PT 06/04/22 Additional Data Do you want to see a Seamless Tube Roller? No Are you interested in information about fertility? No Status: Patient is male Stress Scale: On a scale of 0 to 10, what number best describes how much distress you have experienced in the past week?(0 being no distress and 10 being extreme distress) 1 Social work notified: Pt denied need to see secondary social studies teacher at this time. SIGNED by: Marissa Salvador RN documented in this encounterOhiohealth Doctors Hospital01-23-2023 History of Present illness Narrative* Artur Mi MD, MD - 06/07/2022 9:38 AM EST Radiation Oncology - New Patient/Consult Note PATIENT NAME: Jermaine Begum PATIENT REQUESTING PROVIDER: Quentin Hampton DIAGNOSIS: Stage ROGERIO, pT3a pN1, prostate adenocarcinoma with Jackson score 7 (4+3) and pretreatmentPSA 34.08 ng/mL s/p Lupron on 09/08/21, s/p robot-assisted radical prostatectomy and bilateral pelvic node dissection on 11/19/21. PSA loc <0.02 increased to 0.05 on 05/14/22. HPI: 76 year old male who presents with above diagnosis, for an opinion regarding the role of radiation therapy in the management of the patient's disease. Final recommendations will be communicated back to the requesting physician by way of the shared medical record, or letter to requesting physician via US mail. 76 year old man who had elevated PSA to 27.6 on 04/03/21. It increased from 7.63 on 03/16/16. RepeatPSA on 06/04/21 further increased to 34.08. MRI prostate on 06/04/21 showed, 2.1 CM PIRADS-5 LESION IN THE LEFT APEX-MID POSTERIOR PERIPHERAL ZONE MEDIALLY. Extraprostatic extension is present. Prostate biopsy on 06/23/21 showed prostate adenocarcinoma with Jackson score 7 (4+3). CT A/P on 07/30/21 showed no metastatic disease in the abdomen or pelvis. Bone scan on 07/30/21 showed moderately increased uptake of the upper and mid thoracic spine. MRI thoracis spine on 09/23/21 showed multilevel endplate osteophyte and facet degenerative change and no MR evidence for pathologic marrow infiltration. Surgical resection was planned but he had to have a cardiac bypass surgery on 09/30/21. He was started with Lupron on 09/08/21. PSA decreased to 10.8 on 10/13/21. He then underwent robot-assisted radical prostatectomy and bilateral pelvic node dissection by Dr. Diamond Damon on 11/19/21. Pathology showed prostatic adenocarcinoma with therapy effect. There was extraprostatic extension and surgical margins were negative. Seminal vesicles were not involved. No LVI. No bladder neck invasion. 1/8 pelvic nodes was involved with tumor with extranodal extension. PSA decreased to <0.02 on 12/25/21. It was <0.02 on 02/25/22 and 0.05 on 05/14/22. He has urinary incontinence and he is not aware of episodes. He uses a plastic collection device inunderwear. He is not sexually active. He denies any problems with bowel movements. ALLERGIES No Known Allergies PAST MEDICAL HISTORY Diagnosis Date Arthritis Atrial flutter, unspecified type (HCC) CAD (coronary artery disease) Diabetes mellitus (HCC) Dilated aortic root (HCC) Diverticulosis of colon (without mention of hemorrhage) Gout HLD (hyperlipidemia) HTN (hypertension) Prostate cancer (HCC) scheduled for surgery September 09, 2021 Spinal stenosis of lumbar region without neurogenic claudication 09/23/2021 lumbar canal stenosis at L4-L5 Prior radiation therapy, collagen vascular disease, or inflammatory bowel disease: No PAST SURGICAL HISTORY Procedure Laterality Date ARTHRP ACETBLR/PROX FEM PROSTC AGRFT/ALGRFT 05/16/1996 right ARTHRP ACETBLR/PROX FEM PROSTC AGRFT/ALGRFT Left 03/16/2016 Dr. Wilkerson CARDIOVERSION N/A 09/19/2020 [facility] PAST SURGICAL HISTORY OF 05/16/1954 had left arm set above the wrist, PAST SURGICAL HISTORY OF 05/16/2013 Left partial knee replacement PAST SURGICAL HISTORY OF CABG 09/2021 PAST SURGICAL HISTORY OF wisdom teeth extraction REMOVAL OF PROSTATE 11/19/2021 TONSILLECTOMY & ADENOIDECTOMY <AGE 11 05/16/1948 FAMILY HISTORY Problem Relation Age of Onset Kidney Disease Father on dialysis Coronary Artery Disease Father Pneumonia Father Diabetes Mother Hypertension Mother Breast Cancer Sister Cancer Sister lymp/ 60 yr No Known Problems Maternal Grandfather No Known Problems Maternal Grandmother No Known Problems Paternal Grandfather No Known Problems Paternal Grandmother Anesthesia Problems No Family History Social History Tobacco Use Smoking status: Former Types: Cigars Quit date: 09/01/2021 Years since quittin.7 Smokeless tobacco: Never Tobacco comments: Pt. quit smoking cigarettes in 1970 - don't consciously inhale Vaping Use Vaping Use: Never used Substance Use Topics Alcohol use: Yes Alcohol/week: 7.0 standard drinks Types: 7 Shots of liquor per week Drug use: No COMPLETE REVIEW OF SYSTEMS: GENERAL: feeling well without fatigue, no recent change in weight HEENT: denies NELSON, change in hearing or vision, no other ENT complaints NECK: denies swelling or pain in neck RESPIRATORY: no cough, no wheezing or shortness of breath CARDIOVASCULAR: no chest pain, no palpitations s/p bypass surgery on 09/30/21. GI: normal appetite, tolerating PO well, BMs normal, and no abdominal pain : see HPI. MUSCULOSKELETAL: s/p bilateral hip replacement. SKIN: no rash HEMATOLOGY/LYMPHOLOGY: negative for prolonged bleeding, no swollen lymph nodes NEURO: no numbness or paresthesias and no weakness of the extremities PHYSICAL EXAM: VS: BP 152/79 Pulse 94 Temp 36.1 C (97 F) (Temporal) Resp 16 Wt 106.1 kg (234 lb) SpO2 99% BMI 30.87 kg/m KPS: 90 General Appearance: Alert and oriented. No acute distress. HEENT: NCAT. Sclera anicteric. EOMI. Neck: Normal ROM. Chest: No respiratory distress. Musculoskeletal: No edema. Normal ROM in extremities. Neuro: Speech fluent. Gait normal. No focal deficits. Hematologic: No signs of active bleeding. RADIOLOGY/LABORATORY DATA: see HPI ASSESSMENT AND PLAN: 76 year old man with stage ROGERIO, pT3a pN1, prostate adenocarcinoma with Gleasonscore 7 (4+3) and pretreatment PSA 34.08 ng/mL s/p Lupron on 09/08/21, s/p robot-assisted radical prostatectomy and bilateral pelvic node dissection on 11/19/21. PSA loc <0.02 increased to 0.05 on 05/14/22. He has positive pelvic node with extranodal extension. Now his PSA increased to 0.05 from <0.02.He saw Dr. Hampton at the [facility] main [facility] and salvage radiation treatment was recommended if repeat PSA confirms PSA rise. I agree. He will see Dr. Beavers to discuss hormonal therapy. I explained the rationale, benefits, alternative management options and potential complications of radiation treatment to the patient and he understands and agrees to proceed. It was explained and understood that other personnel such as radiation therapists, research mechanic, and physicists will participate in planning and delivery of radiation treatment. Permanent tattoo paulson will be placed to aid with positioning for daily treatment and the patient consented. He plans to travel to [place] for six weeks and will return in the middle of July and he wants to repeat PSA at that time. Thank you very much for allowing us to participate in his care. Signed by: Artur Mi MD cc: Dee Rider [address] [place] [address] Quentin Hampton [address] [facility] [id number] Diamond Damon [address] [facility] [id number] Marie Beavers [address] [facility] [id number] documented in this encounterOhiohealth Doctors Hospital01-20-2023 History of Present illness Narrative* Jacquelyn Heller, PT - 06/04/2022 11:49 AM EST Episode Visit Count: 1 Therapist That Will Accept/Oversee The Plan Of Care: Jacquelyn Heller Start of Care Date: 06/04/22 Onset Date: 11/19/21 Plan of Care Certification Date: 06/04/22 Next Certification Due Date: 09/02/22 Patient Identified by Name and Date of : Yes REHABILITATION AND SPORTS THERAPY PHYSICAL THERAPY EVALUATION PLAN OF CARE: Assessment: Jermaine Begum presents with chief complaint of urinary incontinence s/p prostatectomythat interferes with bladder function . He presents with impairments in decreased strength and coordination of pelvic floor muscles; decreased core strength; impaired bladder function. PROMIS (Patient- Reported Outcomes Measurement Information System) scores were reviewed and all domains identified as within normal limits. Prognosis for therapy is Good due to: current objective clinical presentation . He will benefit from skilled therapy services to meet the goals established for this plan of care as noted below. Goals for Episode of Care: created on 06/04/22 through 09/02/22 [place] in home exercise program. Patient will demonstrate increase in core strength to at least 4/5 during manual muscle testing in order to improve function for prior functional tasks. Incontinence: Patient to urinate every 2-4 hours Increase strength of pelvic floor to Power: at least 3/5 Patient able to cough, sneeze, lift and/or exercise without leaking Patient Goals: improve bladder function Planned Interventions, Frequency, and Duration: Current Frequency: 1x/week Duration: 4 weeks (reassess at 4 weeks and progress as indicated) Total Number of Visits Planned: 4 Planned Treatment Interventions: Therapeutic exercise (18448);Manual therapy (43911);Self-care homemanagement (39719);Patient/Family/Caregiver Education PLAN FOR NEXT VISIT: biofeedback, progress PF and core strengthening exercises as tolerated Patient demonstrates good understanding of plan of care and treatment. The above goals and plan of care were discussed and agreed upon by patient/family. SUBJECTIVE: Pt is s/p prostatectomy from 12/04. Pt reports UI since surgery. Pt states he has virtually no bladder control. Patient Goals: improve bladder function Functional Limitations: bladder function Prior Level of Function: Independent without limitations Relevant History Employment: Retired Recreation / Current Exercise: None. PAST MEDICAL HISTORY Diagnosis Date Arthritis Atrial flutter, unspecified type (HCC) CAD (coronary artery disease) Diabetes mellitus (HCC) Dilated aortic root (HCC) Diverticulosis of colon (without mention of hemorrhage) Gout HLD (hyperlipidemia) HTN (hypertension) Prostate cancer (HCC) scheduled for surgery September 09, 2021 Spinal stenosis of lumbar region without neurogenic claudication 09/23/2021 lumbar canal stenosis at L4-L5 PAST SURGICAL HISTORY Procedure Laterality Date ARTHRP ACETBLR/PROX FEM PROSTC AGRFT/ALGRFT 05/16/1996 right ARTHRP ACETBLR/PROX FEM PROSTC AGRFT/ALGRFT Left 03/16/2016 Dr. Wilkerson CARDIOVERSION N/A 09/19/2020 [facility] PAST SURGICAL HISTORY OF 05/16/1954 had left arm set above the wrist, PAST SURGICAL HISTORY OF 05/16/2013 Left partial knee replacement PAST SURGICAL HISTORY OF CABG 09/2021 PAST SURGICAL HISTORY OF wisdom teeth extraction REMOVAL OF PROSTATE 11/19/2021 TONSILLECTOMY & ADENOIDECTOMY <AGE 11 05/16/1948 Intake Information: Prescription present Previous Treatment: Exercises per physician (reza) Falls Interview: No positive findings with falls interview Aquatic Screen: No Pain: Pain Pain Level: 0 Post Treatment Pain Post Treatment Pain Level: 0 PROMIS Scales Higher is Better 03/02/2022 05/20/2022 06/01/2022 Phys Func - Score - - 47 (within normal limits) Phys Func - Percentile - - 38 % GH Physical - Score 57.7 (Very Good) 54.1 (Very Good) - GH Physical - Percentile 78 % 66 % - GH Mental - Score 53.3 (Very Good) 59 (Excellent) - GH Mental - Percentile 63 % 82 % - Self-Eff Symptom - Score - - 53 (Average) Self-Eff Symptom - Percentile - - 62 % T-scores: mean of general population = 50. 5 points is clinically meaningfully difference Percentiles provide an indication of how the patient's score ranks in relation to the general population. Higher percentile rankings indicate better function/quality of life. 50th percentile is the average of the general population and indicates half of respondents had a worse score. T-scores: mean of general population = 50. 5 points is clinically meaningfully difference Percentiles provide an indication of how the patient's score ranks in relation to the general population. Higher percentile rankings indicate better function/quality of life. 50th percentile is the average of the general population and indicates half of respondents had a worse score. OBJECTIVE MEASURES WITH LEVEL OF FUNCTION: Pelvic Floor Urinary/Bowel History : Urinary History;Bowel History Difficulty starting stream: No Incomplete emptying: No Stress Incontinence: Position change;Walking;Cough/sneeze Urgency: No Nocturia (times per night): (2-3) Daytime Frequency (hours): 1-2 Fluid Intake: Juice;Coffee;Water;Tea;Alcohol (8 oz measurements) Water : 0 Coffee: 2-3 Tea : 1 Juice : 1 Alcohol : 1 Difficulty evacuating / Excessive Straining: No Incomplete emptying: No Bowel Movement Frequency: 1x/every 2-3 days Fecal incontinence: No Pelvic Floor Muscle Assessment Consent for pelvic assessment/testing and treatment: Patient was educated regarding pelvic floor physical therapy assessment/treatment which may include pelvic floor and girdle muscle assessment externally or internally (vaginal or rectal approach).;Patient verbalized consent for the above treatment approaches today. Patient understands they have control of the treatment and an opportunity to stop treatment at any time. Pelvic Floor Muscle Assessment: PERFECT;Muscle Dynamics Power: 2 Endurance: 10 Fast Reps: 10 Contracton Pressure: Weak squeeze, felt as flick at various points along finger surface, not all the way around Duration of Contraction: >3 seconds Recruitment of pelvic floor muscles: Uncoordinated Extra-pelvic muscle activity: Gluteals Range of Motion: Normal Ability to Lengthen pelvic floor: Yes Pelvic Floor Manual Assessment Pelvic Floor Tenderness/Hyperactivity: Tested Rectally in Tested Rectally in : Sidelying (No tightness/tenderness noted.) LE AROM R LE AROM: WFL L LE AROM: WFL LE Flexibility Flexibility: Hamstring Flexibility;Hip Adductor;Hip Internal Rotation Flexibility;Hip External Rotation Flexibility R Hamstring Flexibility: Min restrictions L Hamstring Flexibility: Min restrictions R Adductor Flexibility: WNL L Adductor Flexibility: WNL R Hip Internal Rotation Flexibility: WNL L Hip Internal Rotation Flexibility: WNL R Hip External Rotation Flexibility: WNL L Hip External Rotation Flexibility: WNL LE Strength Trunk Strength: Lower Abdominals: 3/5 R LE Strength: 5/5 L LE Strength: 5/5 Education: Education Learning Preferences: Demonstration;Explanation;Performance;Printed Materials Barriers: None Learning/educational needs: Home exercise program;Plan of Care Education Provided: Yes, see treatment interventions for education provided Education Provided To: Patient Education Mode/Type: Demonstration;Explanation/Discussion;Literature/Printed Materials;Performance Response to Education/Teach Back: States/Identifies;Return Demonstration TREATMENT: PT Treatment Interventions: Therapeutic Exercise;Self-Half-Way Management Evaluation Therapeutic Exercise: 1: *quick kegals, 3x10 2: *knack technique 3: *isometric hip adduction, 2x10 Skilled Intervention: Patient was educated in proper exercise technique and purpose for exercises. Reviewed and educated patient on additions/changes for home exercise program as above (*). Skilled judgment was provided in selection of appropriate interventions. Provided written instruction for home exercise program to facilitate proper performance and compliance. Self-Half-Way Management: 1: Reviewed pelvic floor anatomy and function with 3D pelvic model 2: Reviewed typical vs dysfunctional bladder health 3: Reviewed bladder irritants, importance of increasing water intake for bladder and overall health 4: Reviewed expected timeline and goals for PFPT based on current procedure 5: Reviewed strategies to improve urinary frequency Skilled Intervention: Skilled judgment in the selection of proper modification for activity of daily living/home management based on clinical presentation, deficits, and needs. Educated the patient regarding recommendations and provided written instruction to facilitate compliance. Billing * Evaluation Low Complexity: 1 Unit Therapeutic Exercise Treatment Minutes: 10 Self-Care/Home Management Treatment Minutes: 18 Total Treatment Time Minutes (timed/untimed): 54 Jacquelyn Heller PT documented in this encounterOhiohealth Doctors Hospital01-20-2023 Miscellaneous Notes* Telephone Encounter - Precious Deleon Ma - 06/04/2022 8:05 AM EST See pt message. Assuming he's not needing any labs at present time. A1c, Lipid 05/14/22. CMP, A1c 02/25/22. A1c 12/25/21. Precious Deleon Ma documented in this encounterOhiohealth Doctors Hospital01-17-2023 History of Present illness Narrative* Quentin Hampton MD - 06/01/2022 9:30 AM EST Radiation Oncology - Established Patient Follow-up VIRTUAL VISIT This is a virtual visit using a HIPAA compliant video platform. It required patient-provider interaction for the medical decision making as documented below. The patient consented to the virtual encounter. PATIENT NAME: Jermaine Begum PATIENT REQUESTING PROVIDER: Diamond Damon MD DIAGNOSIS: 76 year old male with prostate adenocarcinoma, initial PSA 34.08, biopsy Jackson score 4+ 3 = 7 (grade group 3), clinical stage T1c N0 M0 stage IIIA [T1-T2, N0, M0, PSA >=20, GG 1-4] (AJCC 8th ed.), s/p Lupron followed by a robotic prostatectomy on 11/19/21, pathologic stage T3a N1 M0 Stage ROGERIO, margins negative, EPE present , SVI absent, 1 LNs positive out of 8 LNs removed, post-op PSA initially undetectable (< 0.03 ng/ml) right after Lupron and currently detectable (PSA 0.05).He was given Lupron 30 mg on 09/08/21. HPI: 76 year old male with prostate adenocarcinoma who presents for an opinion regarding the role of radiation therapy in the management of the patient's disease. Final recommendations will be communicated back to the requesting physician by way of the shared medical record, or letter to requestingphysician via US mail. He has a prior history of prostate biopsy in 2010 showing benign prostatic tissue. The patient was noted to have an elevated PSA of 34.08 on 06/04/21. He underwent MRI prostate on 06/04/21 showing a 1 cm PIRADS-5 lesion in the left apex/mid posterior peripheral zone with noted EPE. Prostate biopsy on 06/23/21 revealed Dorothy 4+3=7 (GG 3) disease involving 5 of 9 cores. Of note, the biopsy revealed GG 3 in one target; another area had GG 2 disease and another had GG 1. Four targets contained no carcinoma. CT A/P was obtained on 07/30/21 showing no metastatic disease in the abdomen or pelvis. Bone scan 07/30/21 showed moderately increased uptake of the upper and midthoracic spine for which radiographic correlation was recommended. He was started on Lupron 30 mg on 09/08/21, in anticipation of a cardiac bypass surgery which was done on 09/30/21. On 11/19/21, he underwent a robotic prostatectomy and BPLND. Final pathology revealed: -Prostatic adenocarcinoma with therapy effect. No dorothy score identified -Negative margins -EPE present -No SVI -1/8 lymph nodes positive for carcinoma -Final pathologic stage [id number] Post-operative PSA was undetectable (while T was still suppressed). Patient has seen Dr. Beavers who has suggested a trial of ADT; however patient has declined for quality of life reasons. He has had trouble with incontinence since his surgery. Does not know when he is urinating. Attempting Kegel exercises. PSA history: PSA (ng/mL) Date Value 05/14/2022 0.05 (T 410) 02/25/2022 <0.02 (T 145) 12/25/2021 <0.02 (T <12; patient had Lupron 09/08/21) 10/13/2021 10.80 06/04/2021 34.08 04/03/2021 27.6 03/16/2016 7.63 06/13/2010 4.84 PSA, Percent Free (%) Date Value 06/13/2010 16 The patient comes to us today for discussion regarding his indolently rising PSA following prostatectomy. He reports the following pertinent history: Urinary frequency (D/N): Incontinent at daytime, not aware of episodes/4-5 Dysuria: No Incontinence: Moderate, was using diapers but now with a plastic collection device in underwear. Hematuria: No Bowel movement frequency: every other day Bowel movement quality: constipation Blood per rectum: No Last colonoscopy: 2018 Sexual activity: Not sexually active Androgen deprivation: Yes, August 2021, since discontinued Prior radiation therapy, collagen vascular disease, or inflammatory bowel disease: No Currently on anticoagulation: No ALLERGIES No Known Allergies Incontinence Pants, Reusable misc^Mens shorts with plastic housing that drains into collection bag.^Disp: 1 Each^Rfl: 11 External Catheter, Male misc^Use 1 external catheter daily as directed for incontinence^Disp: 90 Each^Rfl: 3 spironolactone (ALDACTONE) 12.5 mg tab^Take 12.5 mg by mouth once daily.^Disp: ^Rfl: atorvastatin (LIPITOR) 80 mg tablet^Take 1 tablet by mouth daily at bedtime.^Disp: 90 tablet^Rfl: 3 benazepril (LOTENSIN) 20 mg tablet^Take 1 tablet by mouth once daily.^Disp: 45 tablet^Rfl: 3 Lancets lancets^Test blood sugar(s) 1 times daily. Dx: Type 2 DM - Controlled E11.9 Insulin: No^Disp: 100 Each^Rfl: 11 aspirin, enteric coated (ASPIRIN, ENTERIC COATED) 81 mg EC tablet^Take 81 mg by mouth once daily.^Disp: ^Rfl: PAST MEDICAL HISTORY Diagnosis Date Arthritis Atrial flutter, unspecified type (HCC) CAD (coronary artery disease) Diabetes mellitus (HCC) Dilated aortic root (HCC) Diverticulosis of colon (without mention of hemorrhage) Gout HLD (hyperlipidemia) HTN (hypertension) Prostate cancer (HCC) scheduled for surgery September 09, 2021 Spinal stenosis of lumbar region without neurogenic claudication 09/23/2021 lumbar canal stenosis at L4-L5 PAST SURGICAL HISTORY Procedure Laterality Date ARTHRP ACETBLR/PROX FEM PROSTC AGRFT/ALGRFT 05/16/1996 right ARTHRP ACETBLR/PROX FEM PROSTC AGRFT/ALGRFT Left 03/16/2016 Dr. Wilkerson CARDIOVERSION N/A 09/19/2020 [facility] PAST SURGICAL HISTORY OF 05/16/1954 had left arm set above the wrist, PAST SURGICAL HISTORY OF 05/16/2013 Left partial knee replacement PAST SURGICAL HISTORY OF CABG 09/2021 PAST SURGICAL HISTORY OF wisdom teeth extraction REMOVAL OF PROSTATE 11/19/2021 TONSILLECTOMY & ADENOIDECTOMY <AGE 11 05/16/1948 FAMILY HISTORY Problem Relation Age of Onset Kidney Disease Father on dialysis Coronary Artery Disease Father Pneumonia Father Diabetes Mother Hypertension Mother Breast Cancer Sister Cancer Sister lymp/ 60 yr No Known Problems Maternal Grandfather No Known Problems Maternal Grandmother No Known Problems Paternal Grandfather No Known Problems Paternal Grandmother Anesthesia Problems No Family History Social History Tobacco Use Smoking status: Former Types: Cigars Quit date: 09/01/2021 Years since quittin.7 Smokeless tobacco: Never Tobacco comments: Pt. 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 Residence: [place], [place] with COMPLETE REVIEW OF SYSTEMS: 12 point ROS negative except as noted in the HPI. PHYSICAL EXAM: Deferred as this was a virtual visit. Patient was answering questions appropriately and did not seem to be in extremis. RADIOLOGY/LABORATORY DATA: see HPI ASSESSMENT/PLAN: We thoroughly reviewed Mr. Begum's history of prostate cancer s/p prostatectomy with noted biochemical failure with initially undetectable and slowly rising PSA, most recently 0.05. We favor repeating a PSA, and if it is still rising, proceeding with postoperative radiotherapy to the prostate beds and elective pelvic nodes. He would favor treatment in [place] with Dr. Mi. We will assist in coordinating the appointment. We discussed the general role of radiotherapy in the treatment of prostate cancer. We discussed therisks, benefits, alternatives, procedures, mechanics and personnel involved in treatment. We also discussed the possible acute and late side effects involved. Additionally, he has ongoing difficulties with incontinence. We have referred him to pelvic floor rehabilitation. Anil Coley MD PGY-2, Radiation Oncology STAFF NOTE I have reviewed the patient's medical history, examined the patient, discussed the case with the resident, and confirmed the hernandez findings. I have confirmed and edited as necessary, the PFSH and ROS as obtained by others. A portion of the note was copied/pasted from a previous note, and reviewed/updated by me based on my assessment from today June 01, 2022. In summary, he is a 76 year old male with prostate adenocarcinoma, initial PSA 34.08, biopsy Dorothy score 4 + 3 = 7 (grade group 3), clinical stage T1c N0 M0 stage IIIA [T1-T2, N0, M0, PSA >=20, GG 1-4] (AJCC 8th ed.), s/p Lupron followed by a robotic prostatectomy on 11/19/21, pathologic stage T3a N1 M0 Stage ROGERIO, margins negative, EPE present , SVI absent, 1 LNs positive out of 8 LNs removed, post-op PSA initially undetectable (< 0.03 ng/ml) right after Lupron and currently detectable (PSA 0.05). He was given Lupron 30 mg on09/08/21. - We will plan to repeat PSA to confirm PSA rise. - Referral to PT for pelvic floor rehab, due to ongoing incontinence (he was given the phone numberto schedule). - Referral to rad onc at [facility] with plan for pelvic RT. - He is scheduled to see Dr. Beavers in medical oncology as well, in order to discuss the role of restarting ADT along with pelvic RT. Medical Decision Making: Problems: High: Illness/injury w/ threat to life/body function Data: Unique test result(s) reviewed: 3+ Risk: High: High risk from testing/treatment Medical Decision Making Level: 5 - High Quentin Hampton MD cc: Dee Rider [address] [place] [address] Diamond Damon [address] [facility] [id number] documented in this encounterOhiohealth Doctors Hospital01-16-2023 Miscellaneous Notes* Telephone Encounter - Nicolette Underwood RN - 05/31/2022 11:33 AM EST Chart reviewed for upcoming appointment in Radiation Oncology. Patient has detectable PSA. Nicolette Underwood RN documented in this encounterOhiohealth Doctors Hospital01-05-2023 History of Present illness Narrative* Dee Rider MD - 05/20/2022 4:20 PM EST Chief Complaint Patient presents with: Follow Up HPI Jermaine Begum is a 76 year old male who presents here today for a follow up visit. Pt has not been seen in over a year, due to seeing multiple other Doctor's he was seeing. Has incontinence issues. Follows with Urology and Hematology. Had prostate removed in November. Does kegal exercises. PSA slightly elevated since surgery and has been referred to Radiation Therapy. Currently has a zoom meeting scheduled. Wears shorts with plastic housing over his penis that goes into rachel bag. Hernia - Started after his CABG surgery at the base of his incision. Denies this being painful but just wanted to have checked. Lipid: Reports he lost about 20 lbs after his CABG surgery. Hx of Triple bypass surgery in Septemberfter an abnormal stress test. Had cardiac rehab. States that food didn't taste right, but this hassince improved. Taking Lipitor 80 mg daily, tolerating well. Also taking Aspirin 81 mg daily. Wantsto get back into exercising at [employer]. Enjoys golfing. Only complaint today, which he discussed with Cardiology and wants to make office aware. Doesn't typically have chest pain, but tends to get sob and not feeling well if he's having issues. He did have an episode couple weeks ago but symptoms resolved and have not come back. HTN: Taking Lotensin 20 mg daily and Aldactone 12.5 mg daily. Can check his BP at home, but has notrecently. Denies any chest pains, dizziness, or SOB. DM: Denies checking sugars at home. Denies any low blood sugars or neuropathy symptoms. Not currently taking any medications. Gout - Has occasional gout flare ups. Was previously taking Allopurinol and Colchicine. Past medical history, appointments, medications, allergies reviewed. Previous Medical History PAST MEDICAL HISTORY Diagnosis Date Arthritis Atrial flutter, unspecified type (HCC) CAD (coronary artery disease) Diabetes mellitus (HCC) Dilated aortic root (HCC) Diverticulosis of colon (without mention of hemorrhage) Gout HLD (hyperlipidemia) HTN (hypertension) Prostate cancer (HCC) scheduled for surgery September 09, 2021 Spinal stenosis of lumbar region without neurogenic claudication 09/23/2021 lumbar canal stenosis at L4-L5 Previous Surgical History PAST SURGICAL HISTORY Procedure Laterality Date ARTHRP ACETBLR/PROX FEM PROSTC AGRFT/ALGRFT 05/16/1996 right ARTHRP ACETBLR/PROX FEM PROSTC AGRFT/ALGRFT Left 03/16/2016 Dr. Wilkerson CARDIOVERSION N/A 09/19/2020 [facility] PAST SURGICAL HISTORY OF 05/16/1954 had left arm set above the wrist, PAST SURGICAL HISTORY OF 05/16/2013 Left partial knee replacement PAST SURGICAL HISTORY OF CABG 09/2021 PAST SURGICAL HISTORY OF wisdom teeth extraction REMOVAL OF PROSTATE 11/19/2021 TONSILLECTOMY & ADENOIDECTOMY <AGE 11 05/16/1948 Family History FAMILY HISTORY Problem Relation Age of Onset Kidney Disease Father on dialysis Coronary Artery Disease Father Pneumonia Father Diabetes Mother Hypertension Mother Breast Cancer Sister Cancer Sister lymp/ 60 yr No Known Problems Maternal Grandfather No Known Problems Maternal Grandmother No Known Problems Paternal Grandfather No Known Problems Paternal Grandmother Anesthesia Problems No Family History Patient Allergies ALLERGIES No Known Allergies Current Medications Current Outpatient Medications on File Prior to Visit Medication Sig Incontinence Pants, Reusable misc Mens shorts with plastic housing that drains into collection bag. External Catheter, Male misc Use 1 external catheter daily as directed for incontinence spironolactone (ALDACTONE) 12.5 mg tab Take 12.5 mg by mouth once daily. Tadalafil (CIALIS) 5 mg tablet 5 mg daily colchicine 0.6 mg tablet Take one pill once or twice daily as needed for gout Tadalafil (CIALIS) 5 mg tablet Take one pill a day. oxybutynin (DITROPAN) 5 mg tablet Take 1 tablet by mouth twice daily for 7 days. allopurinol (ZYLOPRIM) 300 mg tablet Take 1 tablet by mouth once daily. To prevent gout attacks. acetaminophen (TYLENOL) 325 mg tablet 2 tablets by ORAL/FEEDING TUBE route every 6 hours as needed for pain. atorvastatin (LIPITOR) 80 mg tablet Take 1 tablet by mouth daily at bedtime. benazepril (LOTENSIN) 20 mg tablet Take 1 tablet by mouth once daily. blood sugar diagnostic (BLOOD GLUCOSE TEST) test strip Test blood sugar(s) 1 times daily. Dx: Type 2 DM - Controlled E11.9 Insulin: No (Patient not taking: Reported on 10/13/2021 ) Lancets lancets Test blood sugar(s) 1 times daily. Dx: Type 2 DM - Controlled E11.9 Insulin: No (Patient not taking: Reported on 10/13/2021 ) aspirin, enteric coated (ASPIRIN, ENTERIC COATED) 81 mg EC tablet Take 81 mg by mouth once daily. Current Facility-Administered Medications on File Prior to Visit Medication leuprolide 30 mg injection (ELIGARD) Social History Social History Tobacco Use Smoking status: Former Types: Cigars Quit date: 09/01/2021 Years since quittin.7 Smokeless tobacco: Never Tobacco comments: Pt. quit smoking cigarettes in 1970 - don't consciously inhale Vaping Use Vaping Use: Never used Substance Use Topics Alcohol use: Yes Alcohol/week: 7.0 standard drinks Types: 7 Shots of liquor per week Drug use: No EXAM: BP 130/72 (BP Site: Left Arm, BP Position: Sitting, BP Cuff Size: Regular Adult) Pulse 78 Resp 16 Wt 104.2 kg (229 lb 12.8 oz) BMI 30.32 kg/m General Appearance: Well appearing, alert, in no acute distress, well-hydrated, well nourished.. Lungs: Lungs clear to auscultation. No wheezing, rhonchi, rales.. Heart: RRR without murmur, gallop, or rubs. No ectopy. Abdomen: Hernia noted at the base of CABG incision. Denies any pain to palpate. Health Maintenance List DIABETIC FOOT EXAM Never done SHINGRIX VACCINE(1 of 2) Never done DILATED RETINAL EXAM due on 05/01/2021 URINE ALBUMIN:CREATININE RATIO due on 09/18/2021 ANNUAL PCP TEAM CHRONIC DISEASE VISIT due on 03/31/2022 ADVANCE DIRECTIVE DISCUSSION Never done DEPRESSION ASSESSMENT Never done HBA1C due on 11/12/2022 BP CONTROLLED (<130/80) due on 03/09/2023 LDL CHOLESTEROL due on 05/14/2023 DTAP,TDAP,TD(3 - Tdap) due on 07/27/2023 INFLUENZA Completed HEPATITIS C SCREENING Completed COVID-19 VACCINE Completed PNEUMOCOCCAL: 65+ Completed Data reviewed Appointment on 05/14/2022 Component Date Value PSA 05/14/2022 0.05 Testosterone 05/14/2022 410 Hemoglobin A1C 05/14/2022 6.5 (A) Estimated Average Glucose 05/14/2022 140 Cholesterol, Total 05/14/2022 123 Triglyceride 05/14/2022 72 HDL Cholesterol 05/14/2022 38 (A) Non HDL Cholesterol 05/14/2022 85 Fasting Time 05/14/2022 12 VLDL Cholesterol 05/14/2022 14 TC:HDL Ratio 05/14/2022 3.24 LDL Cholesterol 05/14/2022 71 LDL:HDL Ratio 05/14/2022 1.87 Albumin 05/14/2022 4.3 Bilirubin, Total 05/14/2022 0.8 Bilirubin, Conjugated 05/14/2022 <0.2 Alkaline Phosphatase 05/14/2022 119 (A) AST 05/14/2022 27 ALT 05/14/2022 23 Protein, Total 05/14/2022 6.9 ASSESSMENT/PLAN: 1. Controlled type 2 diabetes mellitus without complication, without long-term current use of insulin (HCC) - ICD9: 250.00, ICD10: E11.9 (primary diagnosis) Controlled. - Encouraged regular aerobic exercise and weight loss 2. Essential hypertension, benign - ICD9: 401.1, ICD10: I10 - good control - Continue current medication(s) - Recommended regular aerobic exercise. - Recommend home blood pressure monitoring, to bring results in on next visit - Goal of BP <130/80 3. Mixed hyperlipidemia - ICD9: 272.2, ICD10: E78.2 - good control - Continue current medication. - Encouraged following a low fat, low cholesterol diet. - Discussed the benefits of regular aerobic exercise and weight loss. 4. Benign prostatic hyperplasia with nocturia - ICD9: 600.01, 788.43, ICD10: N40.1, R35.1 - Cont f/u with Urology 5. Hernia - ICD9: 553.9, ICD10: K46.9 - Continue to monitor. Follow up Annually. I agree with the Chief Complaint, ROS, and Past Histories independently gathered by the clinical customer support advisor and the remaining scribed note accurately describes my personal service to the patient. Medical Decision Making: Problems: Low: Acute, uncomplicated illness or injury Moderate: 2+ stable chronic illnesses Data: Unique test result(s) reviewed: 1 Risk: Moderate: Drug management Medical Decision Making Level: 4 - Moderate Dee Rider MD The documentation for this note was completed by Precious Deleon Ma acting as scribe for Dee Rider MD. May 20, 2022 4:35 PM. Precious Deleon Ma documented in this encounterOhiohealth [facility] Hospital01-03-2023 Miscellaneous Notes* Telephone Encounter - Jaylene Smallwood Ma - 05/18/2022 3:58 PM EST Pt notified via [employer] that he is due for an appointment and to call in and schedule. Jaylene Smallwood Ma * Telephone Encounter - Dee Rider MD - 05/18/2022 3:45 PM EST I would like to see him about once a year, so since it has been over that time he should make an appt Dee Rider MD * Telephone Encounter - Precious Deleon Ma - 05/18/2022 8:10 AM EST Labs in. Pt wants to know if he will need an appt? Pt last seen 03/31/21. Precious Deleon Ma documented in this encounterOhiohealth Doctors Hospital12-12-2022 Miscellaneous Notes* Telephone Encounter - Arely Baxter LPN - 04/26/2022 4:18 PM EST Patient sent in information via [employer] on device he is requesting. Did look up information on device but need to clarify how long each device is good for. Arely Baxter LPN documented in this encounterOhiohealth Doctors Hospital12-12-2022 Miscellaneous Notes* Telephone Encounter - Arely Baxter LPN - 04/26/2022 3:12 PM EST Called patient. Verified name and date of . Patient described catheter that he would like. Uncertain of name or states it is not a condom catheter. Patient advised to send information via [employer] once he has details. Arely Baxter LPN documented in this encounterOhiohealth Doctors Hospital12-08-2022 History of Present illness Narrative* Arely Carreno RN - 04/22/2022 11:21 AM EST Spoke to patient regarding questionnaires. Explained that the questionnaires are only available for 2 weeks and will after the 2 week dee. Notified him to expect another one in the new year for QoL follow up. documented in this encounterOhiohealth Doctors Hospital12-02-2022 Miscellaneous Notes* Telephone Encounter - Ambar Jimenez - 04/16/2022 12:10 PM EST Patient will spanish moss picker order after 2:00 pm today 04/16/23. * Telephone Encounter - Nancy Lizama - 04/16/2022 11:52 AM EST Order was filled and printed. Please have provider sign and call pt when order is available for him to spanish moss picker. [phone] Nancy Lizama * Telephone Encounter - Nancy Lizama - 04/14/2022 12:42 PM EST Pt called back. He just needs a written order for the external catheters [place] Signed written order with diagnosis. He is going to submit himself and his insurance will reimburse. Please call pt when order is available for him to spanish moss picker. [phone] Nancy Lizama * Telephone Encounter - Nancy Lizama - 04/14/2022 11:52 AM EST Pt calling back. He has not had any luck in finding a DME company. Suggested he try [facility] to see if they might be on his insurance plan. Advised that they do carry a large variety of Urology and incontinence supplies. Pt will call them and inquire and if they are in network, we will need to fax order to them. Nancy Lizama * Telephone Encounter - Nancy Lizama - 04/13/2022 1:33 PM EST Pt called back. He is wanting to go through an online DME and will call them to see if they have a fax or how we would get the order to them. Pt is new to the process and will inquire and let us know. Nancy Lizama * Telephone Encounter - Arely Baxter LPN - 04/13/2022 10:18 AM EST Called patient. No answer- left message to request DME preference and if no preference asking okay to use one that we are familiar with. Arely Baxter LPN documented in this encounterOhiohealth Doctors Hospital11-22-2022 History of Present illness Narrative* Arielle Stanton Research Coordinator - 04/06/2022 3:08 PM EST QOL Call Tracking Documentation Follow-Up Type: Phone Call Call Attempt: 1st Attempt Call Status: Left Message documented in this encounterOhiohealth Doctors Hospital10-25-2022 History of Present illness Narrative* Rubén Alves PA-C - 03/09/2022 1:16 PM EDT Images from the original note were not included. [facility] ESTABLISHED PATIENT CLINIC NOTE Some elements copied from his previous note, which have been updated where appropriate, and all reflect current medical decision making from date of this visit. SERVICE DATE: 03/09/2022 SERVICE TIME: 1:17 PM NAME: Jermaine Begum CHIEF COMPLAINT: Prostate Cancer HISTORY OF PRESENT ILLNESS: Jermaine Begum is a 76 year old Male with PMH including Prostate Cancer, DM 2 , CAD presenting with Urinary Incontenence s/p RALP The patient reports still incontinence wearing 6 pas/day, discuss Kegels and training techniques indetail And answered all questions LUTS: Just Leaking Other symptoms: ED - yes LABS: Hematocrit (%) Date Value 11/20/2021 30.4 11/19/2021 32.4 11/17/2021 34.5 10/13/2021 34.9 08/21/2020 46.1 11/13/2018 44.5 11/12/2016 44.2 03/16/2016 43.6 PSA (ng/mL) Date Value 02/25/2022 <0.02 12/25/2021 <0.02 10/13/2021 10.80 06/04/2021 34.08 04/03/2021 27.6 03/16/2016 7.63 06/13/2010 4.84 Testosterone (ng/dL) Date Value 02/25/2022 145 12/25/2021 <12 12/24/2011 352 05/23/2008 362 04/29/2006 293 11/01/2003 431 MEDICATIONS: spironolactone (ALDACTONE) 12.5 mg tab^Take 12.5 mg by mouth once daily.^Disp: ^Rfl: allopurinol (ZYLOPRIM) 300 mg tablet^Take 1 tablet by mouth once daily. To prevent gout attacks.^Disp: 90 tablet^Rfl: 3 atorvastatin (LIPITOR) 80 mg tablet^Take 1 tablet by mouth daily at bedtime.^Disp: 90 tablet^Rfl: 3 benazepril (LOTENSIN) 20 mg tablet^Take 1 tablet by mouth once daily.^Disp: 45 tablet^Rfl: 3 aspirin, enteric coated (ASPIRIN, ENTERIC COATED) 81 mg EC tablet^Take 81 mg by mouth once daily.^Disp: ^Rfl: Tadalafil (CIALIS) 5 mg tablet^5 mg daily^Disp: 30 tablet^Rfl: 5 colchicine 0.6 mg tablet^Take one pill once or twice daily as needed for gout^Disp: 30 tablet^Rfl: 2 Tadalafil (CIALIS) 5 mg tablet^Take one pill a day.^Disp: 90 tablet^Rfl: 1 oxybutynin (DITROPAN) 5 mg tablet^Take 1 tablet by mouth twice daily for 7 days.^Disp: 14 tablet^Rfl: 0 acetaminophen (TYLENOL) 325 mg tablet^2 tablets by ORAL/FEEDING TUBE route every 6 hours as needed for pain.^Disp: ^Rfl: 0 blood sugar diagnostic (BLOOD GLUCOSE TEST) test strip^Test blood sugar(s) 1 times daily. Dx: Type 2 DM - Controlled E11.9 Insulin: No^Disp: 50 Strip^Rfl: 11 (Patient not taking: Reported on 10/13/2021 ) Lancets lancets^Test blood sugar(s) 1 times daily. Dx: Type 2 DM - Controlled E11.9 Insulin: No^Disp: 100 Each^Rfl: 11 (Patient not taking: Reported on 10/13/2021 ) PAST MEDICAL HISTORY: PAST MEDICAL HISTORY Diagnosis Date Arthritis Atrial flutter, unspecified type (HCC) CAD (coronary artery disease) Diabetes mellitus (HCC) Dilated aortic root (HCC) Diverticulosis of colon (without mention of hemorrhage) Gout HLD (hyperlipidemia) HTN (hypertension) Prostate cancer (HCC) scheduled for surgery September 09, 2021 Spinal stenosis of lumbar region without neurogenic claudication 09/23/2021 lumbar canal stenosis at L4-L5 PAST SURGICAL HISTORY: PAST SURGICAL HISTORY Procedure Laterality Date ARTHRP ACETBLR/PROX FEM PROSTC AGRFT/ALGRFT 05/16/1996 right ARTHRP ACETBLR/PROX FEM PROSTC AGRFT/ALGRFT Left 03/16/2016 Dr. Wilkerson CARDIOVERSION N/A 09/19/2020 [facility] PAST SURGICAL HISTORY OF [birth year]/16/1955 had left arm set above the wrist, PAST SURGICAL HISTORY OF 05/16/2013 Left partial knee replacement PAST SURGICAL HISTORY OF CABG 09/2021 PAST SURGICAL HISTORY OF wisdom teeth extraction REMOVAL OF PROSTATE 11/19/2021 TONSILLECTOMY & ADENOIDECTOMY <AGE 11 05/16/1948 FAMILY HISTORY: FAMILY HISTORY Problem Relation Age of Onset Kidney Disease Father on dialysis Coronary Artery Disease Father Pneumonia Father Diabetes Mother Hypertension Mother Breast Cancer Sister Cancer Sister lymp/ 60 yr No Known Problems Maternal Grandfather No Known Problems Maternal Grandmother No Known Problems Paternal Grandfather No Known Problems Paternal Grandmother Anesthesia Problems No Family History SOCIAL HISTORY: Social Connections: Moderately Integrated Frequency of Communication with Friends and Family: More than three times a week Frequency of Social Gatherings with Friends and Family: Three times a week Attends [employer] Services: More than 4 times per year Active Member of Clubs or Organizations: No Attends Club or Organization Meetings: Never Marital Status: REVIEW OF SYSTEMS: GENERAL: No fever, chills, weight loss, or fatigue. All other systems reviewed and are negative PHYSICAL EXAMINATION: Blood pressure 114/74, pulse 86, temperature 36.7 C (98 F), temperature source Temporal, resp. rate16, height 185.4 cm (6' 1), weight 99.3 kg (219 lb), SpO2 98 %. GENERAL: WNL nutrition, no deformities, healthy appearing PROBLEM LIST REVIEW: Yes LABS: Results for orders placed or performed in visit on 03/09/22 UA DIP, URINE (POC) Result Value Ref Range GLUCOSE UA (POCT) Negative Negative mg/dL BILIRUBIN UA (POCT) Negative Negative KETONE UA (POCT) Negative Negative mg/dL SPECIFIC GRAVITY UA (POCT) 1.020 1.005 - 1.030 HEMOGLOBIN/BLOOD UA (POCT) Negative Negative PH UA (POCT) 6.0 4.5 - 8.0 PROTEIN UA (POCT) 30 (A) Negative mg/dL UROBILINOGEN UA (POCT) 0.2 Normal E.U./dL NITRITE UA (POCT) Negative Negative LEUKOCYTES UA (POCT) Negative Negative COLOR UA (POCT) Yellow CLARITY UA (POCT) Clear PROCEDURES: PVR: 0 ml IMAGING: IMPRESSION/PLAN: 76 year old male with . 1. Malignant neoplasm of prostate (HCC) - ICD9: 185, ICD10: C61 (primary diagnosis) 2. Urinary incontinence, unspecified type - ICD9: 788.30, ICD10: R32 3. Erectile dysfunction following radical prostatectomy - ICD9: 607.84, ICD10: N52.31 > Discuss Richa ruggiero detail Follow up 3 month with ROD Carvalho MT, PA-C for Follow up ROD Cadena MT, PA-C * Arely Baxter LPN - 03/09/2022 1:07 PM EDT Verified name and date of . CC Post Void Residual HPI: Jermaine Begum is a 76 year old male. The patient is here now for an appointment with ROD Cadena MT, PA-COV. Procedure: Explained procedure to patient and verbalizes understanding. Performed a PVR. Patient urinated and instructed to empty bladder as much as possible just prior to having PVR done using bladder ultrasound scanner. Results of scan: x mL The patient tolerated the procedure well. Plan: Appointment with Rubén. documented in this encounterOhiohealth Doctors Hospital10-20-2022 History of Present illness Narrative* Marie Beavers MD - 03/04/2022 9:39 PM EDT [facility] PROGRESS NOTE SERVICE DATE: March 04, 2022 CHIEF COMPLAINT: very high risk prostate cancer ONCOLOGIC HISTORY: Oncology History Prostate cancer (HCC) 06/04/2021 Initial Diagnosis PSA 34.08 MRI Prostate: PI-RADS 5 lesion and +EPE 06/23/2021 Biopsy Gl 7 (4+3), GG3 CaP, 5 of 9 cores positive. 09/08/2021 - 09/08/2021 Hormone Therapy Eligard x 1 11/19/2021 Surgery A. Prostate, radical prostatectomy: -Prostatic adenocarcinoma with therapy effect. -Expansile cribriform morphology is identified. -Intraductal carcinoma of the prostate is identified. -Extraprostatic extension is identified. -Margins and seminal vesicles are negative for malignancy. B. Lymph nodes, bilateral pelvic, excision: -Metastatic prostatic adenocarcinoma involving one of eight lymph nodes (05/23). -Extranodal extension is identified. HISTORY OF PRESENT ILLNESS: Jermaine Begum is a 76 year old male here for virtual follow-up for very high risk prostate cancer. Initially was diagnosed with Dorothy 4+3 disease in setting of PSA of 34.08, clinically very high risk with EPE+ on MRI. More emergently, however, he needed a CABG, so started with ADT alone prior todefinitive treatment with radical prostatectomy in November 2021, with [id number] disease. Given that he had gotten ADT prior to surgery, it was difficult to assess PSA kinetics in the setting of castrate levels of testosterone, so we wanted to monitor off ADT to see the evolution of his PSA. In the interim, his PSA still remains undetectable despite testosterone levels no longer being in castrate range. REVIEW OF SYSTEMS: Review of Systems All other systems reviewed and are negative. Past medical, surgical, family, social histories reviewed and updated as needed Medications and allergies reviewed and updated as needed PHYSICAL EXAM: Video Visit LABS: WBC (k/uL) Date Value 11/20/2021 9.06 RBC (m/uL) Date Value 11/20/2021 3.62 (L) Hemoglobin (g/dL) Date Value 11/20/2021 9.8 (L) Hematocrit (%) Date Value 11/20/2021 30.4 (L) MCV (fL) Date Value 11/20/2021 84.0 MCH (pg) Date Value 11/20/2021 27.1 MCHC (g/dL) Date Value 11/20/2021 32.2 RDW-CV (%) Date Value 11/20/2021 14.3 Platelet Count (k/uL) Date Value 11/20/2021 357 MPV (fL) Date Value 11/20/2021 9.2 Glucose (mg/dL) Date Value 02/25/2022 122 (H) BUN (mg/dL) Date Value 02/25/2022 16 Creatinine (mg/dL) Date Value 02/25/2022 0.90 Sodium (mmol/L) Date Value 02/25/2022 136 Potassium (mmol/L) Date Value 02/25/2022 4.1 Chloride (mmol/L) Date Value 02/25/2022 102 CO2 (mmol/L) Date Value 02/25/2022 23 Protein, Total (g/dL) Date Value 02/25/2022 6.9 Albumin (g/dL) Date Value 02/25/2022 4.2 Calcium, Total (mg/dL) Date Value 02/25/2022 9.6 Alkaline Phosphatase (U/L) Date Value 02/25/2022 128 (H) Bilirubin, Total (mg/dL) Date Value 02/25/2022 0.4 AST (U/L) Date Value 02/25/2022 26 ALT (U/L) Date Value 02/25/2022 30 Hep C Antibody IA (no units) Date Value 09/30/2021 Negative URINALYSIS pH, Arterial Date Value Ref Range Status 11/19/2021 7.38 7.35 - 7.45 Final Specific [place], Ur Date Value Ref Range Status 11/17/2021 1.017 1.005 - 1.030 Final Glucose, Urine Date Value Ref Range Status 11/17/2021 Negative Negative Final Bilirubin, Urine Date Value Ref Range Status 11/17/2021 Negative Negative Final Ketones, Urine Date Value Ref Range Status 11/17/2021 Negative Negative Final Hemoglobin/Blood,Ur Date Value Ref Range Status 11/17/2021 Negative Negative Final Protein, Urine Date Value Ref Range Status 11/17/2021 Negative Negative Final Urobilinogen, Urine Date Value Ref Range Status 08/07/2013 normal Normal (<1.1) EU Final Leukocytes Date Value Ref Range Status 08/07/2013 neg Neg Final IMAGING: no new imaging IMPRESSION AND PLAN: #[id number] prostate cancer 76 y.o. M with resected [id number] prostate cancer here for follow-up. We had deferred any adjuvant treatment since we were not able to understand his PSA kinetics postoperatively since he got ADT preoperatively. We could consider empiric ADT or RT at this point, however given that patient puts priority on quality of life at this time, will continue to monitor offADT, and see if his PSA rises despite no longer being on ADT. Will recheck in three months. PLAN: 1) recheck PSA and testosterone in 3 months with VV I spent a total of 30 minutes on the date of the service which included preparing to see the patient, [id number] patient care, completing clinical documentation, obtaining and/or reviewing separately obtained history, counseling and educating the patient/family/caregiver, and ordering medications, tests, or procedures. Marie Beavers MD Associate Staff, Genitourinary Medical Oncology March 04, 2022 9:39 PM cc: Marie Rider MD documented in this encounterOhiohealth Doctors Hospital09-13-2022 History of Present illness Narrative* Tracy Briggs Loly [facility] Emergency Department Health Navigator - 01/26/2022 12:43 PM EDT POPULATION HEALTH NAVIGATION OUTREACH Action/FYI I spoke to patient and offered PCP follow up, he declined at this time stating he is following up with so many other doctors currently. He did ask if you could order A1C to be done when he gets his PSA done in February. Pt identified by name and : YES, via phone Outreach Outcome/Action Spoke to patient or caregiver: Patient declined Did you use a PCP flex slot to schedule this appointment? N/A Reason for Outreach Medical [facility] Diabetes Management Payer: Payor: [employer] / Plan: BATS HMO / Product Type: HMO / Care Gap Reviewed:: Follow-up appointment Reminder: Reminder note to check Health Maintenance for items below Health Maintenance items due: DIABETIC FOOT EXAM Never done BP CONTROLLED (<130/80) Never done SHINGRIX VACCINE(1 of 2) Never done DILATED RETINAL EXAM due on 05/01/2021 ADVANCE DIRECTIVE DISCUSSION Never done COVID-19 VACCINE(4 - Booster for Pfizer series) due on 08/04/2021 DEPRESSION SCREENING due on 09/16/2021 URINE ALBUMIN:CREATININE RATIO due on 09/18/2021 INFLUENZA(1) due on 01/14/2022 Message Sent to Practice: Yes Navigation Signature: Tracy Briggs Loly [facility] Emergency Department Health Navigator January 26, 2022 12:43 PM documented in this encounterOhiohealth Doctors Hospital09-09-2022 History of Present illness Narrative* Bandar Soria DO - 01/22/2022 9:04 AM EDT Images from the original note were not included. [facility] [place] [facility] Department of Cardiovascular Medicine SECTION OF CARDIOVASCULAR IMAGING OUTPATIENT VISIT DATE January 22, 2022 OUTPATIENT VISIT TYPE ESTABLISHED PRIMARY CARE PHYSICIAN: Dee Rider [address] [place] [address] REFERRING PHYSICIAN: Bandar Soria [address] [facility] [id number] CHIEF COMPLAINT: Follow up HISTORY OF PRESENT ILLNESS: 76 year old male with PMHx of CAD s/p multiple PCIs (last in 2014), AF on eliquis HTN, HLD, DM2 (a1c 7.1), COVID infxn 05/2021, prostate CA w/ tentative prostatectomy on 09/09/21, here for LHC +/- in setting of abnormal stress (LAD & RCA ischemia).. He denies chest pain, shortness of breath, orthopnea, cough, edema, palpitations, PND, lightheadedness or syncope. PAST CARDIAC HISTORY: Multiple ptiot PCIs most recently 2014 PAST MEDICAL HISTORY Diagnosis Date Arthritis Atrial flutter, unspecified type (HCC) CAD (coronary artery disease) Diabetes mellitus (HCC) Dilated aortic root (HCC) Diverticulosis of colon (without mention of hemorrhage) Gout HLD (hyperlipidemia) HTN (hypertension) Prostate cancer (HCC) scheduled for surgery September 09, 2021 Spinal stenosis of lumbar region without neurogenic claudication 09/23/2021 lumbar canal stenosis at L4-L5 PAST SURGICAL HISTORY Procedure Laterality Date ARTHRP ACETBLR/PROX FEM PROSTC AGRFT/ALGRFT 05/16/1996 right ARTHRP ACETBLR/PROX FEM PROSTC AGRFT/ALGRFT Left 03/16/2016 Dr. Wilkerson CARDIOVERSION N/A 09/19/2020 [facility] PAST SURGICAL HISTORY OF 05/16/1954 had left arm set above the wrist, PAST SURGICAL HISTORY OF 05/16/2013 Left partial knee replacement PAST SURGICAL HISTORY OF CABG 09/2021 PAST SURGICAL HISTORY OF wisdom teeth extraction TONSILLECTOMY & ADENOIDECTOMY <AGE 11 05/16/1947 Social History Tobacco Use Smoking status: Former Types: Cigars Quit date: 09/01/2021 Years since quittin.3 Smokeless tobacco: Never Tobacco comments: Pt. quit smoking cigarettes in 1970 - don't consciously inhale Vaping Use Vaping Use: Never used Substance Use Topics Alcohol use: Yes Comment: Prior to surgery, was drinking 1 drink per day, since surgery has cut back. Drug use: No FAMILY HISTORY Problem Relation Age of Onset Kidney Disease Father on dialysis Coronary Artery Disease Father Pneumonia Father Diabetes Mother Hypertension Mother Breast Cancer Sister Cancer Sister lymp/ 60 yr No Known Problems Maternal Grandfather No Known Problems Maternal Grandmother No Known Problems Paternal Grandfather No Known Problems Paternal Grandmother Anesthesia Problems No Family History ALLERGIES No Known Allergies MEDICATIONS: atorvastatin (LIPITOR) 80 mg tablet^Take 1 tablet by mouth daily at bedtime.^Disp: 90 tablet^Rfl: 3 benazepril (LOTENSIN) 20 mg tablet^Take 1 tablet by mouth once daily.^Disp: 45 tablet^Rfl: 3 blood sugar diagnostic (BLOOD GLUCOSE TEST) test strip^Test blood sugar(s) 1 times daily. Dx: Type 2 DM - Controlled E11.9 Insulin: No^Disp: 50 Strip^Rfl: 11 (Patient not taking: Reported on 10/13/2021 ) Lancets lancets^Test blood sugar(s) 1 times daily. Dx: Type 2 DM - Controlled E11.9 Insulin: No^Disp: 100 Each^Rfl: 11 (Patient not taking: Reported on 10/13/2021 ) aspirin, enteric coated (ASPIRIN, ENTERIC COATED) 81 mg EC tablet^Take 81 mg by mouth once daily.^Disp: ^Rfl: spironolactone (ALDACTONE) 25 mg tablet^Take 1 tablet by mouth once daily.^Disp: 90 tablet^Rfl: 3 Tadalafil (CIALIS) 5 mg tablet^5 mg daily^Disp: 30 tablet^Rfl: 5 colchicine 0.6 mg tablet^Take one pill once or twice daily as needed for gout^Disp: 30 tablet^Rfl: 2 Tadalafil (CIALIS) 5 mg tablet^Take one pill a day.^Disp: 90 tablet^Rfl: 1 oxybutynin (DITROPAN) 5 mg tablet^Take 1 tablet by mouth twice daily for 7 days.^Disp: 14 tablet^Rfl: 0 allopurinol (ZYLOPRIM) 300 mg tablet^Take 1 tablet by mouth once daily. To prevent gout attacks.^Disp: 90 tablet^Rfl: 3 acetaminophen (TYLENOL) 325 mg tablet^2 tablets by ORAL/FEEDING TUBE route every 6 hours as needed for pain.^Disp: ^Rfl: 0 PHYSICAL EXAMINATION: BP 151/74 (BP Site: Left Arm, BP Position: Sitting, BP Cuff Size: Regular Adult) SpO2 99% General: Well appearing, in no acute distress, speaking in complete sentences. Lungs: Clear to auscultation bilaterally, no wheezing or rhonchi. Heart: Regular rhythm, PMI not displaced, S1, S2 normal, no S3, no S4, no heaves, no rub and no murmur. Extremities: No peripheral edema . Grade 2/4 distal pulses bilaterally. CARDIOVASCULAR MEDICINE TESTING: Electrocardiogram: SINUS BRADYCARDIA WITH 1ST DEGREE AV BLOCK WITH PREMATURE ATRIAL COMPLEXES COMPLETE RIGHT BUNDLE BRANCH BLOCK IMPRESSION: 76 year old male w CAD s/p multiple PCIs (last in 2014), AF on eliquis HTN, HLD, DM2 (a1c 7.1), andprostate CA w/ tentative prostatectomy on 09/09/21, here for LHC +/- in setting of abnormal stress (LAD & RCA ischemia).. PLAN AND RECOMMENDATIONS: - LHC w Dr Bautista +/- PCI if indicated - anticipate postponement of prostatectomy CONTACT INFORMATION: Bandar Soria DO, [facility], [facility] and Sofia Campaed Chair of Cardiovascular Imaging Director, Echocardiography Laboratory [facility] Department of Cardiovascular Medicine [facility] [place] [facility] Desk [place] [address] Office - [phone] extension [phone] Office Appointments: [phone] extension [phone] documented in this encounterOhiohealth Doctors Hospital08-19-2022 Miscellaneous Notes* Telephone Encounter - Bandar Damon MD - 01/01/2022 8:59 AM EDT Wrong Nelson. You need to send this to Diamond Damon * Telephone Encounter - Charley Gonzalez RN - 01/01/2022 8:18 AM EDT Reason for call: Patient calling with request that Dr. Damon call him if unable to reach him via zoom for virtual visit today. Patient denies any new or worsening symptoms of which a provider is not aware: Yes. Outcome: Will route to Dr. Damon for FYI. documented in this encounterOhiohealth Doctors Hospital08-19-2022 History of Present illness Narrative* Debbie Morrow APRN.GROUT MACHINE TENDER - 01/01/2022 8:30 AM EDT VIRTUAL VISIT PROGRESS NOTE This is a virtual visit using nGAP video visit. It required patient-provider interaction for themedical decision making as documented below. Persons Present: patient Chief Complaint/Reason: follow up prostate cancer Clinic note from 11/24/2021 copied and updated. HPI: Jermaine Begum is a 76 year old male with prostate cancer who presents for follow up evaluation. He is s/p RALP with BPLND and right nerve sparing on 11/19/2021. FINAL DIAGNOSIS A. Prostate, radical prostatectomy: -Prostatic adenocarcinoma with therapy effect. -Expansile cribriform morphology is identified. -Intraductal carcinoma of the prostate is identified. -Extraprostatic extension is identified. -Margins and seminal vesicles are negative for malignancy. B. Lymph nodes, bilateral pelvic, excision: -Metastatic prostatic adenocarcinoma involving one of eight lymph nodes (1/8). -Extranodal extension is identified. Last seen via virtual visit 11/24/2021. Given Tadalafil Rx for penile rehab. Plan to f/u in 6 weekswith PSA. Most recent PSA <0.02 ng/mL (12/25/2021). Serum testosterone is also undetectable. Oncology was consulted and seen by Dr. Beavers (Hem/Onc) on 12/30/2021. Per Dr. Beavers OV note: I discussed that usually we like to see how the PSA evolves post-operatively to help guide treatment. For example, if persistent or rising PSA, would consider RT +/- ADT. If PSA becomes undetectable,could consider RT for his pT3 disease still, or could consider ADT for his node positive disease. Idiscussed that we cannot rely on the post-op PSA since he is currently at castration-level testosterone. Therefore, we could consider empiric treatment with ADT and/or RT if we would like, but we maybe over or under treating. The patient puts emphasis on quality of life, therefore, he would like to see how his PSA evolves off any therapy. He understands the elevated risk of recurrent disease, but would prefer to defer treatment unless there is evidence of disease recurrence. Plan: will monitor PSA off ADT and f/u in 2 months with PSA and testosterone. Interval Hx: Overall, doing well. Energy levels improving- started cardiac rehab earlier this week. Mowing the lawn. He reports gradual improvement in urine control. Using ~5-6 briefs/day. Doing daily Kegel exercises. No dysuria or gross hematuria. Only minimal abdominal pain which is gradually improving. Reports appetite/taste improving since cardiac surgery. Has been taking daily Tadalafil without adverse effects- reports hx of poor erections prior to surgery even with Tadalafil. Therefore will consider stopping Rx. Data Reviewed: Most recent labs Most recent surgical pathology Labs PSA (ng/mL) Date Value 12/25/2021 <0.02 10/13/2021 10.80 06/04/2021 34.08 04/03/2021 27.6 03/16/2016 7.63 06/13/2010 4.84 PSA, Percent Free (%) Date Value 06/13/2010 16 Testosterone (ng/dL) Date Value 12/25/2021 <12 12/24/2011 352 05/23/2008 362 04/29/2006 293 HISTORY REVIEWED (electronic chart updated): PAST MEDICAL HISTORY Diagnosis Date Arthritis Atrial flutter, unspecified type (HCC) CAD (coronary artery disease) Diabetes mellitus (HCC) Dilated aortic root (HCC) Diverticulosis of colon (without mention of hemorrhage) Gout HLD (hyperlipidemia) HTN (hypertension) Prostate cancer (HCC) scheduled for surgery September 09, 2021 Spinal stenosis of lumbar region without neurogenic claudication 09/23/2021 lumbar canal stenosis at L4-L5 PAST SURGICAL HISTORY Procedure Laterality Date ARTHRP ACETBLR/PROX FEM PROSTC AGRFT/ALGRFT 05/16/1996 right ARTHRP ACETBLR/PROX FEM PROSTC AGRFT/ALGRFT Left 03/16/2016 Dr. Wilkerson CARDIOVERSION N/A 09/19/2020 [facility] PAST SURGICAL HISTORY OF 05/16/1954 had left arm set above the wrist, PAST SURGICAL HISTORY OF 05/16/2013 Left partial knee replacement PAST SURGICAL HISTORY OF CABG 09/2021 PAST SURGICAL HISTORY OF wisdom teeth extraction TONSILLECTOMY & ADENOIDECTOMY <AGE 11 05/16/1947 FAMILY HISTORY Problem Relation Age of Onset Kidney Disease Father on dialysis Coronary Artery Disease Father Pneumonia Father Diabetes Mother Hypertension Mother Breast Cancer Sister Cancer Sister lymp/ 60 yr No Known Problems Maternal Grandfather No Known Problems Maternal Grandmother No Known Problems Paternal Grandfather No Known Problems Paternal Grandmother Anesthesia Problems No Family History Social History Tobacco Use Smoking status: Former Types: Cigars Quit date: 09/01/2021 Years since quittin.3 Smokeless tobacco: Never Tobacco comments: Pt. quit smoking cigarettes in 1970 - don't consciously inhale Vaping Use Vaping Use: Never used Substance Use Topics Alcohol use: Yes Comment: Prior to surgery, was drinking 1 drink per day, since surgery has cut back. Drug use: No Current Outpatient Medications Medication Sig Tadalafil (CIALIS) 5 mg tablet 5 mg daily colchicine 0.6 mg tablet Take one pill once or twice daily as needed for gout Tadalafil (CIALIS) 5 mg tablet Take one pill a day. oxybutynin (DITROPAN) 5 mg tablet Take 1 tablet by mouth twice daily for 7 days. allopurinol (ZYLOPRIM) 300 mg tablet Take 1 tablet by mouth once daily. To prevent gout attacks. acetaminophen (TYLENOL) 325 mg tablet 2 tablets by ORAL/FEEDING TUBE route every 6 hours as needed for pain. atorvastatin (LIPITOR) 80 mg tablet Take 1 tablet by mouth daily at bedtime. benazepril (LOTENSIN) 20 mg tablet Take 1 tablet by mouth once daily. blood sugar diagnostic (BLOOD GLUCOSE TEST) test strip Test blood sugar(s) 1 times daily. Dx: Type 2 DM - Controlled E11.9 Insulin: No (Patient not taking: Reported on 10/13/2021 ) Lancets lancets Test blood sugar(s) 1 times daily. Dx: Type 2 DM - Controlled E11.9 Insulin: No (Patient not taking: Reported on 10/13/2021 ) aspirin, enteric coated (ASPIRIN, ENTERIC COATED) 81 mg EC tablet Take 81 mg by mouth once daily. spironolactone (ALDACTONE) 25 mg tablet Take 1 tablet by mouth once daily. Current Facility-Administered Medications Medication Dose Route Frequency leuprolide 30 mg injection (ELIGARD) 30 mg SUBCUTANEOUS q 4 MONTHS ALLERGIES No Known Allergies REVIEW OF SYSTEMS: GENERAL: no fever RESPIRATORY: no wheezing or shortness of breath CARDIOVASCULAR: no chest pain GI: tolerating PO well; see HPI : no gross hematuria; see HPI PHYSICAL EXAMINATION: VIDEO EXAM: (if completed, performed via video enabled technology) GENERAL: alert and appropriate, in no distress, well-hydrated, well nourished, and happy, smiling, interactive RESPIRATORY: breathing non-labored CHEST: equal chest rise with normal respiratory effort ASSESSMENT: (C61) Prostate cancer (HCC) (primary encounter diagnosis) (N39.3) RICARDO (stress urinary incontinence), male (N52.31) Erectile dysfunction following radical prostatectomy 76 year old male s/p RALP with BPLND and right nerve sparing on 11/19/[address] Following with Dr. Beavers in oncology. Admits to baseline ED. RICARDO gradually improving. PLAN: -Continue daily Kegel exercises (encourage 6 sets of 10 per day) -Continue to follow prostate cancer with Dr. Beavers -Follow up with Dr. Nelson RINCON. Discussed with Dr. Damon. CC: Dr. Marie Beavers There are no Patient Instructions on file for this visit. I spent a total of 30 minutes on the date of the service which included preparing to see the patient, [id number] patient care, and completing clinical documentation Debbie Morrow APRN.CNP documented in this encounterOhiohealth Doctors Hospital08-17-2022 Nurse Note* Dipti Knight RN - 12/30/2021 2:06 PM EDT Additional intake questions: Has the patient had fever, nausea, vomiting, diarrhea, constipation, fatigue for > 1 week? No Does the patient have a decreased appetite? No Does patient want to see a Seamless Tube Roller? No (yes to any of above refer patient to schedulers for dietitian appointment) ) Does patient have any new or increased numbness or tingling of extremities? No Is patient interested in fertility information? No Does patient need any prescription refills? No Does patient have an advanced directive in place? No, Patient referred to Resource Center documented in this encounterOhiohealth Doctors Hospital08-17-2022 History of Present illness Narrative* Marie Beavers MD - 12/30/2021 2:00 PM EDT Images from the original note were not included. [facility] GENITOURINARY ONCOLOGY NEW PATIENT EVALUATION PATIENT NAME: Jermaine Begum : 1945 ATTENDING PHYSICIAN: Marie Beavers MD DATE OF SERVICE: December 28, 2021 REASON FOR EVALUATION: Management of intermediate-risk prostate adenocarcinoma. DIAGNOSIS: Stage ROGERIO (pT3a pN1 M0) prostate adenocarcinoma with EPE, negative margins and 1/8+ LNs with SAMARIA. Dorothy score 4+3=7 (grade group 3). HISTORY OF PRESENT ILLNESS: 76-year-old male with PMHx significant for complex cardiac surgery with CAD, s/p CABG x 3, biatrialMAZE/LAAC (09/30/21 [place]) atrial fibrillation/atrial flutter, HLD, HTN, NIDDM, and prostate cancer, who presents as a new pt to discuss management of prostate cancer. Hx of prostate cancer: Hx of prostate bx in 2010 which showed benign prostatic tissue with atrophy and focal chronic inflammation. PSA increased to 34.08 ng/mL (06/04/2021). MRI prostate (06/04/2021) PI-RADS 5 lesion and +EPE. He underwent MRI fusion prostate biopsy on 06/23/2021. Final pathology revealed Gl 7 (4+3), GG3 CaP, 5 of 9 cores positive. Bone scan (07/30/2021) with moderately increased uptake of the upper and midthoracic spine. CT abd/pel (07/30/2021) with no metastatic disease in the abdomen and upper pelvis. Nondiagnostic CTof the lower pelvis below the level of the acetabular roof to the pubic symphysis (including the prostate) due to extensive streak artifact from bilateral hip arthroplasties. Nondisplaced LEFT sacral ala insufficiency fracture. He had an Eligard injection on 09/08/2021 and reports very few symptoms of androgen deprivation - only a couple of very mild hot flashes. Prior to prostatectomy he required cardiac risk assessment for ongoing cardiac symptoms concerning for ischemia, as well as afib/flutter, which ultimately led to CABG and MAZE procedures. 09/30/21 s/p CABG x 3 grafts (MANTILLA- LAD, SVG- OM1, SVG- PDA), Biatrial Maze procedure (RF with cryo), SUSHMA appendage clip (35 mm) for history of multivessel coronary artery disease with multiple PCI's. 11/19/2021 s/p robotic laparoscopic prostatectomy with nerve sparring by Dr. Damon. Since prostatectomy, he has been struggling with urinary incontinence. PSA on 12/25/2021 undetectable but so is serum testosterone level. 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 Data Reviewed: Most recent labs and imaging results. Most recent surgical pathology. PAST MEDICAL HISTORY: PAST MEDICAL HISTORY Diagnosis Date Arthritis Atrial flutter, unspecified type (HCC) CAD (coronary artery disease) Diabetes mellitus (HCC) Dilated aortic root (HCC) Diverticulosis of colon (without mention of hemorrhage) Gout HLD (hyperlipidemia) HTN (hypertension) Prostate cancer (HCC) scheduled for surgery September 09, 2021 Spinal stenosis of lumbar region without neurogenic claudication 09/23/2021 lumbar canal stenosis at L4-L5 PAST SURGICAL HISTORY: PAST SURGICAL HISTORY Procedure Laterality Date ARTHRP ACETBLR/PROX FEM PROSTC AGRFT/ALGRFT 05/16/1996 right ARTHRP ACETBLR/PROX FEM PROSTC AGRFT/ALGRFT Left 03/16/2016 Dr. Wilkerson CARDIOVERSION N/A 09/19/2020 [facility] PAST SURGICAL HISTORY OF 05/16/1954 had left arm set above the wrist, PAST SURGICAL HISTORY OF 05/16/2013 Left partial knee replacement PAST SURGICAL HISTORY OF CABG 09/2021 PAST SURGICAL HISTORY OF wisdom teeth extraction TONSILLECTOMY & ADENOIDECTOMY <AGE 11 05/16/1947 ALLERGIES: ALLERGIES No Known Allergies MEDICATIONS: Current Outpatient Medications Medication Sig Tadalafil (CIALIS) 5 mg tablet 5 mg daily colchicine 0.6 mg tablet Take one pill once or twice daily as needed for gout Tadalafil (CIALIS) 5 mg tablet Take one pill a day. oxybutynin (DITROPAN) 5 mg tablet Take 1 tablet by mouth twice daily for 7 days. allopurinol (ZYLOPRIM) 300 mg tablet Take 1 tablet by mouth once daily. To prevent gout attacks. acetaminophen (TYLENOL) 325 mg tablet 2 tablets by ORAL/FEEDING TUBE route every 6 hours as needed for pain. atorvastatin (LIPITOR) 80 mg tablet Take 1 tablet by mouth daily at bedtime. benazepril (LOTENSIN) 20 mg tablet Take 1 tablet by mouth once daily. blood sugar diagnostic (BLOOD GLUCOSE TEST) test strip Test blood sugar(s) 1 times daily. Dx: Type 2 DM - Controlled E11.9 Insulin: No (Patient not taking: Reported on 10/13/2021 ) Lancets lancets Test blood sugar(s) 1 times daily. Dx: Type 2 DM - Controlled E11.9 Insulin: No (Patient not taking: Reported on 10/13/2021 ) aspirin, enteric coated (ASPIRIN, ENTERIC COATED) 81 mg EC tablet Take 81 mg by mouth once daily. spironolactone (ALDACTONE) 25 mg tablet Take 1 tablet by mouth once daily. Current Facility-Administered Medications Medication Dose Route Frequency leuprolide 30 mg injection (ELIGARD) 30 mg SUBCUTANEOUS q 4 MONTHS ? 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 FAMILY HISTORY: FAMILY HISTORY Problem Relation Age of Onset Kidney Disease Father on dialysis Coronary Artery Disease Father Pneumonia Father Diabetes Mother Hypertension Mother Breast Cancer Sister Cancer Sister lymp/ 60 yr No Known Problems Maternal Grandfather No Known Problems Maternal Grandmother No Known Problems Paternal Grandfather No Known Problems Paternal Grandmother Anesthesia Problems No Family History REVIEW OF SYSTEMS: Complete 10-point review of systems reviewed and negative except for that noted in the history of present illness. PHYSICAL EXAMINATION: There were no vitals taken for this visit. There is no height or weight on file to calculate BSA. ECOG/Karnofsky Performance Score: 0/100% General: Well-nourished, in no acute distress, comfortable, interactive. CV: Regular rate and rhythm, no m/r/g. Lungs: Non-labored respirations, no wheezing. Abdomen: Soft, nontender, not distended, +BS. Extremities: No lower extremity edema. Skin: No rashes or lesions. Neuro: No gross or focal motor deficits, speech nondysarthric. LABS: PSA 04/03/2021 27.6 06/04/2021 34.08 10/13/2021 10.8 12/25/2021 <0.02 (post surgery) TESTOSTERONE 12/25/2021 <12 ng/dL PATHOLOGY: Surgical Pathology 07/15/10 FINAL DIAGNOSIS 1. Left prostate, needle biopsy (A) - Benign prostatic tissue with atrophy and focal chronic inflammation. 2. Right prostate, needle biopsy (B) - Benign prostatic tissue with atrophy, partial atrophy and focal chronic inflammation 06/23/2021 PROSTATE BIOPSY FINAL DIAGNOSIS 1. Prostate, target one left apex/mid posteromedial PZ, PI-RADS 5, biopsy (A): Adenocarcinoma of the prostate, Dorothy score 3+4=7 (grade group 2), involving three of three cores (90%, 9 mm; 80%, 8 mm; 75%, 7.5 mm). - Cribriform pattern 4 is identified. 2. Prostate, right base, biopsy (B): Benign prostatic tissue. 3. Prostate, right mid, biopsy (C): Benign prostatic tissue. 4. Prostate, right apex, biopsy (D): Benign prostatic tissue. 5. Prostate, left base, biopsy (E): High-grade prostatic intraepithelial neoplasia. 6. Prostate, left mid, biopsy (F): Adenocarcinoma of the prostate, Jackson score 3+3=6 (grade group 1), involving one of one core (less than 5%, less than 1 mm). 7. Prostate, left apex, biopsy (G): Adenocarcinoma of the prostate, Jackson score 4+3=7 (grade group 3), involving one of one core (95%, 12 mm). -Cribriform pattern 4 is identified. Prostate Cancer Biopsy Summary Number of cores examined: 9 Number of cores positive: 5 Highest Grade Group: 3 Highest % of core involvement: 95% Cribriform pattern 4: Present Intraductal carcinoma: Absent COMMENT Part G of this case was reviewed at the genitourinary pathology consensus conference with Dr. Joyce Esteban and Dr. Johanne Acosta, who concur with the above diagnosis. 11/19/2021 PROSTATECTOMY PATHOLOGY FINAL DIAGNOSIS A. Prostate, radical prostatectomy: -Prostatic adenocarcinoma with therapy effect. -Expansile cribriform morphology is identified. -Intraductal carcinoma of the prostate is identified. -Extraprostatic extension is identified. -Margins and seminal vesicles are negative for malignancy. B. Lymph nodes, bilateral pelvic, excision: -Metastatic prostatic adenocarcinoma involving one of eight lymph nodes (1/8). -Extranodal extension is identified. Synoptic Report PROSTATE GLAND: Radical Prostatectomy 8th Edition - Protocol posted: 11/12/2020 PROSTATE GLAND, RADICAL PROSTATECTOMY - All Specimens SPECIMEN Procedure Radical prostatectomy Prostate Size Prostate Weight (Grams) 65.8 g Prostate Greatest Dimension (Centimeters) 4.5 cm Additional Prostate Dimension (Centimeters) 6.3 cm 4.3 cm TUMOR Histologic Type Acinar adenocarcinoma Histologic Grade Grade Not applicable: Therapy effect Intraductal Carcinoma (IDC) Present IDC Incorporated into Grade Yes Cribriform Glands Present Treatment Effect Hormonal therapy effect present TUMOR QUANTITATION Estimated Percentage of Prostate Involved by Tumor 6 - 10% Extraprostatic Extension (EPE) Present, nonfocal Location of Extraprostatic Extension Left posterior Urinary Bladder Neck Invasion Not identified Seminal Vesicle Invasion Not identified Lymphovascular Invasion Not Identified MARGINS Margin Status All margins negative for invasive carcinoma REGIONAL LYMPH NODES Regional Lymph Node Status Tumor present in regional lymph node(s) Number of Lymph Nodes with Tumor 1 Anny Site(s) with Tumor Pelvic NOS Extranodal Extension Present Number of Lymph Nodes Examined 8 PATHOLOGIC STAGE CLASSIFICATION (pTNM, AJCC 8th Edition) Reporting of pT, pN, and (when applicable) pM categories is based on information available to the pathologist at the time the report is issued. As per the AJCC (Chapter 1, 8th Ed.) it is the managingphysician s responsibility to establish the final pathologic stage based upon all pertinent information, including but potentially not limited to this pathology report. TNM Descriptors y (post-treatment) Primary Tumor (pT) pT3a pN Category pN1 ADDITIONAL FINDINGS Additional Findings Nodular prostatic hyperplasia Comment(s) A11 . Gross Description A. PROSTATE RADICAL PROSTATECTOMY. The specimen consists of a prostate with attached seminal vesicles. It the specimen weighs 76.7 g fresh, with attached seminal vesicles (70.1 g fixed), and 65.8 g without seminal vesicles (fixed). The prostate measures 4.5 cm craniocaudally, 6.3 cm transversely, and 4.3 cm anterior to posterior. The surface of the prostate is overall smooth, with small portions of soft tissue attached to the lateral aspects. The specimen is inked blue on the right aspect and yellow on the left aspect. It is sectioned from apex to base at 3 mm intervals. The prostatic parenchyma shows generalized nodularity, with few well- circumscribed yellow nodules measuring up to 0.6 cm in greatest diameter in the left posterior quadrant. The left side of the prostate appears generally enlarged, and is larger than the right side. The seminal vesicles are sectioned longitudinally and are grossly unremarkable. Resident Assistant sections are submitted as follows: A1-A2: Left apex, perpendicular A3: Right apex, perpendicular A4-A5: Left base, perpendicular A6-A8: Right base, perpendicular A9: 3 mm, left anterior A10: 3 mm, right anterior A11: 3 mm, left posterior A12: 3 mm, right posterior IMAGIN09/23/2021 MRI THORACIC SPINE W/WO CONTRAST IMPRESSION: Multilevel endplate osteophyte and facet degenerative change. No significant spinal canal or foraminal narrowing. No MR evidence for pathologic marrow infiltration. No gross impingement of the cord. The cord is draped over the kyphotic thoracic curvature, but otherwise ample CSF space surrounding the cord. No abnormal enhancement. Foramina are patent. MR findings correlate with the appearance of the prior chest CT performed at an outside institution 07/13/2021. On the sagittal french polisher view, there appears to be lumbar canal stenosis at L4-L5 mainly related to facet degenerative change. No cord impingement through the level of the conus. Anatomic Thoracic/Lumbar Variant: None. L4-5 is considered the level of the iliac crest and assume there are 5 lumbar-type vertebrae. ASSESSMENT: 76-year-old male with PMHx significant for complex cardiac history s/p recent CABG x 3, biatrial MAZE/LAAC (09/30/21 [facility]) atrial fibrillation/atrial flutter, HLD, HTN, NIDDM, and Jackson score 4 +3 = 7 (grade group 3), stage ROGERIO [pT3a, pN1, M0, PSA >=20, GG 1-4] prostate adenocarcinoma s/p prostatectomy on 11/19/2021 with 1/8+ LNs with SAMARIA, EPE, negative surgical margins, seminal vesicles not affected, with complete biochemical response post surgery on ADT, who presents today to discuss further management of his prostate cancer. Given complete biochemical remission post surgery (although while on ADT and with currently undetectable serum testosterone level) with some adverse pathologic features (1+ LN with SAMARIA, EPE) and intermediate-risk grade group 3, but also PSA>20 nd/mL pre-surgery, 3 options are reasonable here: observation alone, adjuvant ADT alone, or adjuvant ADT plus EBRT. He already received a dose of Eligard in August 2021 but given complete biochemical remission and significant cardiac history it is reasonable to observe off therapy for now with close PSA monitoring as ADT effects wear off (serum testosterone still undetectable). Pt is in full agreement with this plan after a thorough discussion of all treatment modalities and risks. We also discussed continuing ADT (and RT) should his PSA start to rise. PLAN: 1. Hold further ADT. 2. Serial PSA and serum T - next in 2 months (02/2022). 3. RTC in 3 months. Patient seen and discussed with Genitourinary Oncology staff, Dr. Marie Beavers. Aj Briseno MD, [facility] Hematology/Oncology Fellow [facility] [place], [facility] December 28, 2021 [facility] STAFF PHYSICIAN NOTE OF PERSONAL INVOLVEMENT IN CARE I have reviewed the consult note obtained and documented by the fellow and I personally participated in the hernandez components. I have discussed the case and management of the patient's care. The following comments revise or confirm relevant hernandez components of the note. IMPRESSION: 76 y.o. M with what was initially diagnosed as very-high risk prostate cancer, but started with ADTalone in August 2021 given more pressing need for CABG. Ultimately underwent prostatectomy on 11/19/21with [id number] pathology and negative margins. Post-op PSA undetectable in setting of ADT that had been given preoperatively. I discussed that usually we like to see how the PSA evolves post-operatively to help guide treatment. For example, if persistent or rising PSA, would consider RT +/- ADT. If PSA becomes undetectable,could consider RT for his pT3 disease still, or could consider ADT for his node positive disease. Idiscussed that we cannot rely on the post-op PSA since he is currently at castration-level testosterone. Therefore, we could consider empiric treatment with ADT and/or RT if we would like, but we maybe over or under treating. The patient puts emphasis on quality of life, therefore, he would like to see how his PSA evolves off any therapy. He understands the elevated risk of recurrent disease, but would prefer to defer treatment unless there is evidence of disease recurrence. PLAN: Monitor PSA off ADT F/u 2 months with PSA and testosterone Medical Decision Making: Problems: Moderate: New problem with uncertain prognosis Risk: Moderate: Moderate risk from testing/treatment Medical Decision Making Level: 4 - Moderate Marie Beavers MD Beeper Number: [id number] Date of Service: December 30, 2021 Time of Service: 8:54 PM documented in this encounterOhiohealth [facility] Hospital08-11-2022 Miscellaneous Notes* Telephone Encounter - Precious Deleon Ma - 12/24/2021 10:58 AM EDT Pt called and notified. Verbalized understanding. Precious Deleon Ma * Telephone Encounter - Dee Rider MD - 12/23/2021 7:13 PM EDT A1c ordered Dee Rider MD * Telephone Encounter - Faith Hurst RN - 12/23/2021 4:15 PM EDT Pt called in asking if he could get the A1C added to his PSA. Last A1C was done on 09/28/21, so 3 months would be 12/29/21. He sees Oncology at [facility] on 12/30/21. If he got it with his PSA he would end up paying for it because it would be too early. Changed expected date to 12/29/21. documented in this encounterOhiohealth Doctors Hospital07-27-2022 Miscellaneous Notes* Telephone Encounter - Ginger Finn - 12/09/2021 8:41 AM EDT Called Mr. Begum regarding incontinence. No answer. Left detailed vm regarding kegel exercises andinstructing him that as long as he does not lift more than 10 pounds, he can start cardiac rehab. Advised to return a call to the office or send a mychart message with any further questions or concerns. Ginger Finn RN documented in this encounterOhiohealth Doctors Hospital07-20-2022 Miscellaneous Notes* Telephone Encounter - Inés Dumont RN - 12/02/2021 1:31 PM EDT Patient returned call and given provider's message below with verbalized understanding. * Telephone Encounter - Dee Rider MD - 12/02/2021 1:19 PM EDT He may use colchicine as ordered to see if this will treat the gout attack, and may take one pill daily to prevent attacks. Dee Rider MD * Telephone Encounter - Ginette Mackenzie RN - 12/02/2021 10:32 AM EDT Patient calls to report that he is having a third gout flare up in a months time. He reports the joint to right middle finger is now affected. Patient is asking if there is something else like prednisone he could try since allopurinol isn't effective for prevention. Offered appointment. Patient requesting provider response to request. Please review and advise, Ginette Mackenzie RN documented in this encounterOhiohealth Doctors Hospital07-12-2022 History of Present illness Narrative* Raj Lam MD - 11/24/2021 1:30 PM EDT VIRTUAL VISIT PROGRESS NOTE This is a virtual visit using phone conversation. It required patient-provider interaction for the medical decision making as documented below. Chief Complaint/Reason: Postop visit HPI: Jermaine Begum is a 76 year old male with prostate cancer who presents for post-op evaluation. He is s/p RALP with BPLND and right nerve sparing on 11/19/2021. Final surgical pathology is in process.Hospital course uncomplicated and he was discharged home on 11/20/2021 with instructions to remove his catheter on 11/26/2021.Patient denies any fever, nausea, and vomiting. Eating, drinking are OK. His constipation improved. Labs : PSA (ng/mL) Date Value 10/13/2021 10.80 06/04/2021 34.08 04/03/2021 27.6 03/16/2016 7.63 06/13/2010 4.84 PSA, Percent Free (%) Date Value 06/13/2010 16 Creatinine Date Value Ref Range Status 11/20/2021 0.84 0.73 - 1.22 mg/dL Final 11/19/2021 0.96 0.73 - 1.22 mg/dL Final 11/17/2021 0.93 0.73 - 1.22 mg/dL Final 10/13/2021 1.04 0.73 - 1.22 mg/dL Final HISTORY REVIEWED (electronic chart updated): PAST MEDICAL HISTORY Diagnosis Date Arthritis Atrial flutter, unspecified type (HCC) CAD (coronary artery disease) Diabetes mellitus (HCC) Dilated aortic root (HCC) Diverticulosis of colon (without mention of hemorrhage) Gout HLD (hyperlipidemia) HTN (hypertension) Prostate cancer (HCC) scheduled for surgery September 09, 2021 Spinal stenosis of lumbar region without neurogenic claudication 09/23/2021 lumbar canal stenosis at L4-L5 PAST SURGICAL HISTORY Procedure Laterality Date ARTHRP ACETBLR/PROX FEM PROSTC AGRFT/ALGRFT 05/16/1996 right ARTHRP ACETBLR/PROX FEM PROSTC AGRFT/ALGRFT Left 03/16/2016 Dr. Wilkerson CARDIOVERSION N/A 09/19/2020 [facility] PAST SURGICAL HISTORY OF 05/16/1954 had left arm set above the wrist, PAST SURGICAL HISTORY OF 05/16/2013 Left partial knee replacement PAST SURGICAL HISTORY OF CABG 09/2021 PAST SURGICAL HISTORY OF wisdom teeth extraction TONSILLECTOMY & ADENOIDECTOMY <AGE 11 05/16/1947 FAMILY HISTORY Problem Relation Age of Onset Kidney Disease Father on dialysis Coronary Artery Disease Father Pneumonia Father Diabetes Mother Hypertension Mother Breast Cancer Sister Cancer Sister lymp/ 60 yr No Known Problems Maternal Grandfather No Known Problems Maternal Grandmother No Known Problems Paternal Grandfather No Known Problems Paternal Grandmother Anesthesia Problems No Family History Social History Tobacco Use Smoking status: Former Smoker Types: Cigars Quit date: 09/01/2021 Years since quittin.2 Smokeless tobacco: Never Used Tobacco comment: Pt. quit smoking cigarettes in 1970 - don't consciously inhale Vaping Use Vaping Use: Never used Substance Use Topics Alcohol use: Yes Comment: Prior to surgery, was drinking 1 drink per day, since surgery has cut back. Drug use: No Current Outpatient Medications Medication Sig enoxaparin (LOVENOX) 40 mg/0.4 mL Inject 0.4 mL subcutaneously once daily for 21 days. docusate sodium (COLACE) 100 mg capsule Take 1 capsule by mouth twice daily. oxybutynin (DITROPAN) 5 mg tablet Take 1 tablet by mouth twice daily for 7 days. oxyCODONE-acetaminophen (PERCOCET) 5-325 mg tablet Take 1 tablet by mouth every 8 hours as needed for pain for up to 5 days. allopurinol (ZYLOPRIM) 300 mg tablet Take 1 tablet by mouth once daily. To prevent gout attacks. acetaminophen (TYLENOL) 325 mg tablet 2 tablets by ORAL/FEEDING TUBE route every 6 hours as needed for pain. atorvastatin (LIPITOR) 80 mg tablet Take 1 tablet by mouth daily at bedtime. benazepril (LOTENSIN) 20 mg tablet Take 1 tablet by mouth once daily. blood sugar diagnostic (BLOOD GLUCOSE TEST) test strip Test blood sugar(s) 1 times daily. Dx: Type 2 DM - Controlled E11.9 Insulin: No (Patient not taking: Reported on 10/13/2021 ) Lancets lancets Test blood sugar(s) 1 times daily. Dx: Type 2 DM - Controlled E11.9 Insulin: No (Patient not taking: Reported on 10/13/2021 ) aspirin, enteric coated (ASPIRIN, ENTERIC COATED) 81 mg EC tablet Take 81 mg by mouth once daily. spironolactone (ALDACTONE) 25 mg tablet Take 1 tablet by mouth once daily. Current Facility-Administered Medications Medication Dose Route Frequency leuprolide 30 mg injection (ELIGARD) 30 mg SUBCUTANEOUS q 4 MONTHS ALLERGIES No Known Allergies Review of Systems GENERAL:No weight loss, malaise or fevers SKIN:Negative for lesions, rash, and itching. NEUROLOGIC:Negative for focal numbness or weakness CARDIOVASCULAR: Negative for chest pain, leg swelling or palpitations. RESPIRATORY: Negative for cough, wheezing or shortness of breath. GASTROINTESTINAL: Negative for abdominal discomfort, blood in stools or black stools or change in bowel habits GENITOURINARY:Refer to HPI MUSCULOSKELETAL: Negative for joint pain or swelling, back pain or muscle pain. ENDOCRINE: Negative for cold or heat intolerance, goiter, polyuria, polydipsia. PHYSICAL EXAMINATION: VIDEO EXAM: (if completed, performed via video enabled technology) No exam performed ASSESSMENT: Jermaine Begum is a 76 year old male with prostate cancer s/p RALP with BPLND and right nerve sparing on 11/19/2021. Final surgical pathology is in process.Hospital course uncomplicated and he was discharged home on 11/20/2021 with instructions to remove his catheter on 11/26/2021.Patient denies any fever, nausea, and vomiting. Eating, drinking are OK. His constipation improved. PLAN: 1- Arroyo removal in POD 7 2- Cipro before and after Arroyo removal 3- Kegel exercises 4- Cialis 5 mg a day 5- PSA in 6 weeks post surgry- Must be resulted at least 1-2 days before virtual visit 6- Virtual visit in 6 weeks after surgery There are no Patient Instructions on file for this visit. I spent a total of 15 minutes on the date of the service which included [id number] patient care, on the [employer] virtual platform. documented in this encounterOhiohealth Doctors Hospital07-05-2022 Instructions* Patient Instructions* Kyara Mc PA-C - 11/17/2021 1:12 PM EDT PATIENT PREOPERATIVE INSTRUCTIONS Diamond Damon MD has scheduled you for your procedure at this surgery center: [facility] Scheduling Office: [phone] --[address] [place] [address]. Please read below carefully for your personalized instructions. Dietary Restrictions: - No solid food after midnight. - You may have 12 ounces of clear liquids (water, clear juices such as apple juice or gatorade, carbonated beverages, clear tea, black coffee, jello) until 2 hours before scheduled arrival at facility. Medications: Unless instructed differently below, stay on all of your medications until your surgery. Approved medications to take the morning of surgery with a sip of water: None DO NOT TAKE YOUR benazepril THE NIGHT BEFORE OR MORNING OF SURGERY If you start any new medications after today's visit, please contact the surgeon's office. Blood Thinning Medications: - Stop NSAIDS (Ibuprofen, Advil, Aleve, Motrin, Celebrex, Mobic, etc.) 7 days before surgery, as directed by your surgeon. - Do NOT stop aspirin or other anticoagulants without consulting with your chisel worker or prescribing physician. - Stop Vitamin E, ALL multi-vitamins, herbals and dietary supplements 7 days before surgery. - You may take Tylenol (Acetaminophen) or any of your pain medications that do not contain aspirin or NSAIDS as needed. Important Reminders: - Candy, mints, and tobacco products are NOT permitted the morning of surgery. - Hearing aids, dentures and glasses may be worn the morning of surgery. - NO jewelry, body piercings, makeup, hairpins or contacts are to be worn the day of surgery. If you develop symptoms such as a fever, cold, or flu, or have other changes to your health within TWO DAYS of scheduled surgery or the morning of surgery, please contact the surgery center above. Personal Belongings: -Please have photo ID and insurance cards. -If you do not have a copy of advance directives on file with us, please bring a copy with you on the day of surgery. - Leave ALL valuables and money at home or with family members. For Outpatient Procedures: - YOU MUST HAVE A RESPONSIBLE PANTOGRAPH MACHINE OPERATOR TAKE YOU HOME. A MEDICAL SALES OR [employer]UT[employer] SALES CONSULTANT CANNOT BE MADE A RESPONSIBLE PANTOGRAPH MACHINE OPERATOR. - We recommend that a responsible person stays with you overnight to take care of you. - You cannot stay in a hotel alone after outpatient surgery. You will not be permitted to have yoursurgery, if you do not have someone to take care of you. Arrival Time for Surgery: - To obtain your arrival time for surgery, call your physician's office the day before your surgery. - If your surgery is scheduled for Tuesday, call the Tuesday before. Your surgeon s senior power scheduler will tell you what time to call the office. - If you have not reached the departmental senior power scheduler by 5 P.M., call [phone] after 5 P.M. the day before your surgery. Please be aware that emergency situations arise, which may delay or change your surgical time. If this happens, we will notify you as soon as possible and regret any inconvenience. If you already have an Advance Directive, please fax a copy to [phone] or email to for it to be added to your chart. If you do not have an Advance Directive, you can find the appropriate form and more information at [email or web address]. We recommend that youcomplete the Advance Directive form found on the website and bring it with you the day of your surgery. It can be witnessed and scanned into your chart that day. Kyara Mc PA-C documented in this encounterOhiohealth Doctors Hospital07-05-2022 History and physical note * Kyara Mc PA-C - 11/17/2021 12:50 PM EDT Images from the original note were not included. Surgeon: Diamond Damon MD Type of surgery: ROBOTIC LAPAROSCOPIC RETROPUBIC RADICAL PROSTATECTOMY W/ NERVE SPARING Patient scheduled for surgery on 11/19/21 . Surgery Location: [facility] Diagnosis: Pre-op evaluation (primary encounter diagnosis) Malignant neoplasm of prostate (hcc) BP 135/76 Pulse 88 Temp (Src) 96.8 (Temporal) Ht 6' 1 (1.85m) Wt 214 lb 14.4 oz (97.5kg) SpO2 100% BMI 28.36 kg/(m^2). H&P completed: Cardiology Dr. Shree Ochoa 11/12/21 Denies asthma, COPD, pneumonia in the past 6 weeks, CVA or TIA, h/o DVT or PE. Social History Tobacco Use Smoking status: Former Smoker Types: Cigars Quit date: 09/01/2021 Years since quittin.2 Smokeless tobacco: Never Used Tobacco comment: Pt. quit smoking cigarettes in 1970 - don't consciously inhale Vaping Use Vaping Use: Never used Substance Use Topics Alcohol use: Yes Comment: Prior to surgery, was drinking 1 drink per day, since surgery has cut back. Drug use: No allopurinol (ZYLOPRIM) 300 mg tablet Take 1 tablet by mouth once daily. To prevent gout attacks. acetaminophen (TYLENOL) 325 mg tablet 2 tablets by ORAL/FEEDING TUBE route every 6 hours as needed for pain. atorvastatin (LIPITOR) 80 mg tablet Take 1 tablet by mouth daily at bedtime. benazepril (LOTENSIN) 20 mg tablet Take 1 tablet by mouth once daily. aspirin, enteric coated (ASPIRIN, ENTERIC COATED) 81 mg EC tablet Take 81 mg by mouth once daily. spironolactone (ALDACTONE) 25 mg tablet Take 1 tablet by mouth once daily. blood sugar diagnostic (BLOOD GLUCOSE TEST) test strip Test blood sugar(s) 1 times daily. Dx: Type 2 DM - Controlled E11.9 Insulin: No Lancets lancets Test blood sugar(s) 1 times daily. Dx: Type 2 DM - Controlled E11.9 Insulin: No ALLERGIES No Known Allergies COVID VACCINATION STATUS: Fully vaccinated PHYSICAL EXAMINATION: Alert and oriented, No acute distress, Healthy appearance Lungs clear to auscultation. No wheezing, rhonchi, rales. RRR without murmur, gallop, or rubs. No ectopy Laboratory and Testing: Lab Value Units Date High Low HB 11.0 g/dL 11/17/2021 17.0 13.0 HCT 34.5 % 11/17/2021 51.0 39.0 WBC 7.65 k/uL 11/17/2021 11.00 3.70 PLT 432 k/uL 11/17/2021 400 150 NA 135 mmol/L 10/13/2021 144 136 K 4.5 mmol/L 10/13/2021 5.1 3.7 GLUC 133 mg/dL 10/13/2021 99 74 BUN 15 mg/dL 10/13/2021 24 9 CREAT 1.04 mg/dL 10/13/2021 1.22 0.73 PTSEC 11.3 sec 11/17/2021 13.0 9.7 INR 1.1 no uni* 11/17/2021 1.3 0.9 APTT 27.3 sec 11/17/2021 32.4 23.0 ALT 144 U/L 10/13/2021 54 10 AST 77 U/L 10/13/2021 40 14 TBILI 0.5 mg/dL 10/13/2021 1.3 0.2 TSH No results within date range. Lab Value Units Date High Low HCGQT No results within date range. UHCG No results within date range. HCG, BODY* No results within date range. Lab Value Units Date High Low ABORHD No results within date range. ABSCREEN No results within date range. Hemoglobin A1C (%) Date Value 09/28/2021 6.7 03/30/2021 7.1 09/18/2020 7.0 11/27/2019 6.7 05/21/2019 6.6 11/13/2018 6.4 EKG READING: Unconfirmed 11/12/21: Diagnosis: SINUS RHYTHM WITH 1ST DEGREE AV BLOCK COMPLETE RIGHT BUNDLE BRANCH BLOCK ABNORMAL ECG OTHER TESTS: Introperative echo 09/30/21: FINDINGS: (POST PROCEDURE) Post Procedure Run 1 The left ventricle is normal in size. Left ventricular systolic function is normal. The right ventricle is normal in size. Right ventricular systolic function is normal. There is trivial mitral valve regurgitation. The mitral valve mean gradient is 3 mmHg. There is trivial tricuspid valve regurgitation. There is 1+ aortic valve regurgitation. The maximum velocity in the aortic valve is 120.0 cm/s. The aortic valve peak gradient is 6 mmHg. The aortic valve mean gradient is 2 mmHg. Aorta intact post decannulation. CONCLUSIONS: (PRE PROCEDURE) - Exam indication: CAD - The left ventricle is normal in size. Left ventricular systolic function is normal. - The right ventricle is normal in size. Right ventricular systolic function is normal. - The visualized aorta is borderline dilated with a maximal dimension of 3.8 cm. - There is no patent foramen ovale as detected by Doppler. - Exam was compared with the prior echocardiographic exam performed on 09/28 with no significant changes. US carotid arteries 09/23/2016: RIGHT SIDE Common carotid artery: Plaque visualized without evidence of hemodynamically significant stenosis. Internal carotid artery: 20-39% stenosis. Vertebral artery: Patent and antegrade flow noted. LEFT SIDE Internal carotid artery: 20-39% stenosis. Vertebral artery: Patent and antegrade flow noted. Holter monitor 10/21/21: ANESTHESIOLOGY REVIEW: MOUTH OPENING/TMJ : Full jaw ROM MICROGNATHIA/OVERBITE: no MP SCORE: MP 1 UPPER LIP BITE TEST: Class I - Lower incisors can bite the upper lip above the rah line DENTITION: Crowns, broken tooth. THYROMENTAL DIST: WNL SHORT NECK: No NECK FLEX: Full ROM NECK EXTENSION: Limited ROM INTUBATION HISTORY: history of general anesthesia without difficulty ADVERSE ANESTHESIA EVENT: no history of adverse event +Patient passed out after one surgery, felt flushed and had palpitations after one surgery. ANESTHETIC OPTIONS: Final anesthesia management options will be discussed on day of surgery. PAIN MANAGEMENT OPTIONS: Final pain management plan will be discussed on the day of surgery. ZULEYKA: Sleep Apnea Probability Snores loudly: No Tired, fatigued or sleepy in daytime: No Stops breathing or choking/gasping during sleep: No High blood pressure: Yes METs: 5.50- patient can climb a flight of stairs without chest pain or SOB. Assessment: Atrial fibrillation First diagnosed August 2020. S/p DCCV 09/19/20, MAZE/LAAC 09/30/21. Had no known recurrences after DCCV until October 2021. Holter monitor 10/14/21 showed 12.9% atrial fibrillation burden. Denies any known recurrences since 10/21/21. Has had a few episodes of postural dizziness. Has not been on Eliquis since prior to CABG. Follows with cardiology locally and EP at [facility]. CAD S/p PCI 2006, 2014, CABG x3 09/30/21 METS >5, denies chest pain or SOB. On ASA, statin. Follows with cardiology. HTN Stable, on rx. BP 135/76 in office today. HLD On lipitor. Dilated aorta Aorta is borderline dilated at 3.8 cm on echo 09/30/21. Aortic valve regurgitation Diabetes Currently controlled without medication. HgA1C 6.7 on 09/28/21. Gout Had two recent gout flares- on allopurinol. Prostate cancer Surgery planned. CONSULTS: Cardiology Lele Hanley NP 10/29/21: OPTIMIZATION STATUS: Patient is optimally prepared for surgery pending LABS. ASA Class: 3 Kyara Mc PA-C November 16, 2021 10:33 AM documented in this encounterOhiohealth Doctors Hospital07-05-2022 History of Present illness Narrative* Chelita Keane APRN.GROUT MACHINE TENDER - 11/17/2021 10:55 AM EDT [facility] PRE-OP NOTE Jermaine Begum is a 76 year old male. Pre-op Date: November 17, 2021 Date of Procedure: 11/19/2021 Procedure/Surgery: RALP Diagnosis: CaP Primary Surgeon: MD Nelson, Diamond [facility] Score: n/a There were no vitals taken for this visit. Pain Assessment: Are you currently having pain? No 0 on a scale of 0 to 10 Surgical Guide Book Status: Patient given book today. Dialysis Guide Book Status: N/A Allergies Reviewed: Yes Medications Reviewed: Yes Is patient currently on oral steroids?: No Has the patient had a UTI in the past month?: No. Does the patient have any artificial joints (last 2 years), metal parts, pacemakers or cardiac/ureteral stents in place?: Yes, b/l THR and L TKR, cardiac stents x 2 Does the patient have diabetes?: Yes - diet-controlled Is the patient routinely taking anticoagulants?: Yes. Patient on baby Aspirin. Can the patient have an IV put in either arm?: Yes Urine Dip Complete?: Yes URINE CULTURE COMPLETE?: Not Applicable Ostomy/Stoma Nurse appointment made/completed: N/A [facility]/Medical Clearance: Cleared per [facility] - To be seen [facility]: Cleared per [facility] - To be seen All testing on cureform has been scheduled: Yes Consent Signed: Yes. DOS Orders Placed and Signed: Yes. Pre-op H&P Done by [facility]: To be done by [facility]. PATIENT INSTRUCTIONS FOR SURGERY 1.) DO NOT HAVE ANYTHING TO EAT OR DRINK AFTER MIDNIGHT THE DAY BEFORE SURGERY except for certain morning medications as instructed by the doctor. Candy, mints, gum, and smoking are NOT permitted. Ifthe surgery is scheduled for the afternoon, you may have water during the morning of surgery if permitted by your surgeon. 2.) Medications to be taken on the morning of surgery with a few sips of water: per [facility] 3.) Please bring all your prescribed inhalers (if you have any you normally take) to the hospital. 4.) Arrival time: Call for arrival. 5.) Prep given: No 6.) Lovenox instructions given: N/A 7.) Patient reminded that surgery time provided day before surgery is tentative based on potential changes with transplants. Recommendations: This patient is optimally prepared for surgery pending [facility], [facility] and LABS. Chelita Keane APRN.JH documented in this encounterOhiohealth Doctors Hospital06-29-2022 Miscellaneous Notes* Telephone Encounter - Sweta Tamez - 11/11/2021 4:18 PM EDT Received outside records - uploaded to ep shared drive Appointment on 11/12/2021 Last appointment with this provider Visit date not found Last OV in this dept Visit date not found Sweta Sinha documented in this encounterOhiohealth Doctors Hospital06-29-2022 Miscellaneous Notes* Telephone Encounter - Manny Monique - 11/11/2021 9:45 AM EDT Office reached out to EP and scheduled an appt for 11/12/[address] Ochoa. Office called patient to let him know about the appointment and why he has been scheduled. Pt thanked office for calling and verbalized understanding. * Telephone Encounter - Manny Monique - 11/11/2021 9:[address] Bautista: He just had cardiac surgery with Dr. Riley S/P on 09/30/2021 [facility] Surgeon: Dr. Mauricio Riley SURGERY: CABG x 3 (MANTILLA- LAD, SVG- OM1, SVG- PDA), Biatrial Maze procedure (RF with cryo), SUSHMA appendage clip (35 mm) He currently is NOT on a beta scottie nor anti-coagulation from his surgical discharge note. only aspirin the holter shows low HR and some pauses and bouts of AFIB with his appendage clipped his risk of stroke even in AFIB should be Low and with his low HR - I would not be starting him on any beta scottie He needs to be seen by electrophysiology prior to his Urologic surgery Let's see what Mahesh can do to schedule Marie Bautista MD October 29, 2021 12:42 PM * Telephone Encounter - Manny Monique - 10/21/2021 10:57 AM EDT Images from the original note were not included. Saved Holter Monitor report saved to scanned documents documented in this encounterOhiohealth Doctors Hospital06-22-2022 History of Present illness Narrative* Clarke Rodriguez RN - 11/04/2021 1:15 PM EDT TRANSITION CARE MANAGEMENT (TCM) FOLLOW-UP NOTE Provider Action/FYI: Spoke to patient. Pt is doing well. Taste is off. Appetite is decreased. Pt's last weight was 209 Lbs Pt states he spoke with his chisel worker re: above issues Patient identified by name and date of : YES Spoke to patient Summary: Pt discharged from [facility] on 10/06/21. Admitted for: Coronary artery disease involving pilot point coronary artery of pilot point heart without angina pectoris Operations during Hospitalization: Day of Surgery:09/30/2021 S/P SURGERY: CABG x 3 (MANTILLA- LAD, SVG- OM1, SVG- PDA), Biatrial Maze procedure (RF with cryo), SUSHMA appendage clip (35 mm Batch Operator plan for next outreach: No further follow up needed at this time Signature Clarke Rodriguez RN November 04, 2021 documented in this encounterOhiohealth Doctors Hospital06-17-2022 Miscellaneous Notes* Telephone Encounter - Cesilia Arguello RN - 10/30/2021 11:32 AM EDT [facility] Contact Center Inbound Phone Encounter DATE of SERVICE: 10/30/2021 TIME of SERVICE: 11:33 AM Status: Non-urgent, needs attention Service/Provider: Cardiac Surgery Mauricio Riley M.D. Reason for call: Care Coordination Contact information: Cirilo Begum [phone]. Resolution: Sent to [employer] Comments: Cirilo Begum called the [facility] post-discharge line to ask that Colin call his local cardiologists PAEDIATRIC PHYSIOTHERAPIST, Lele Hanley, at [phone] at [facility] to discuss the next steps regarding his 48 hr holter monitor. The first 8 hours Cirilo experienced shooting pain in his head and the episodes correlated to episodes of AF on his monitor. They are considering Eliquis and would like to discuss this. Cirilo said he does not need a call back, he will wait to hear from Lele Hanley CNP. Cesilia Arguello RN Date of Resolution: 10/30/2021 Time of Resolution 11:33 AM documented in this encounterOhiohealth Doctors Hospital06-12-2022 History of Present illness Narrative* Clarke Rodriguez RN - 10/25/2021 2:27 PM EDT TRANSITION CARE MANAGEMENT (TCM) FOLLOW-UP NOTE Provider Action/FYI: Spoke to patient. Pt was able to successfully take off groin dressing without difficulty. Does c/o fatigue. Is taking daily naps. Pt weight is 211 lbs. Lowest weight was 209 lbs since surgery. Pt states he has lost about 12 lbs since surgery States his appetite has been decreased. Has not been eating as much. Discussed f/u with PCP d/t weight loss but pt declines right now. Pt states he is monitoring his weight closely Denies chest pain, SOB, fever, chills, or redness of incision sites Appointments for Next 60 Days Date Time Provider Location Dept Phone 11/17/2021 11:00 AM CHELITA KEANE Q Bldg [phone] 11/17/2021 12:15 PM ADMIT INTERVIEW A12 [facility] A Bldg 11/17/2021 12:50 PM [facility] 3 [facility] A Bldg [phone] 11/17/2021 1:30 PM LAB A15 MAIN Mn A Bldg [phone] 11/17/2021 2:15 PM LAB COVID [facility] P BLDG [facility] P Bldg Patient identified by name and date of : YES Spoke to patient Summary: Pt discharged from [facility] on 10/06/21. Admitted for: Coronary artery disease involving pilot point coronary artery of pilot point heart without angina pectoris Operations during Hospitalization: Day of Surgery:09/30/2021 S/P SURGERY: CABG x 3 (MANTILLA- LAD, SVG- OM1, SVG- PDA), Biatrial Maze procedure (RF with cryo), SUSHMA appendage clip (35 mm Concerns: Weight loss Batch Operator plan for next outreach: No further follow up needed at this time Signature Clarke Rodriguez RN October 25, 2021 documented in this encounterOhiohealth Doctors Hospital06-01-2022 Miscellaneous Notes* Telephone Encounter - Arely Baxter LPN - 10/14/2021 2:08 PM EDT Verified name and date of . Called patient and aware- verbalizes understanding. States he has prostate removal surgery scheduled for November 19, 2021 and will worry about December when Shubuta gets here regarding appointments. Arely Baxter LPN * Telephone Encounter - Rubén Alves PA-C - 10/14/2021 10:09 AM EDT He will need 4 month Eligard Injection and PSA in 4 more months ROD Cadena, OR, JULES documented in this encounterOhiohealth Doctors Hospital05-31-2022 History of Present illness Narrative* Debbie Rivas APRN.GROUT MACHINE TENDER - 10/13/2021 2:00 PM EDT Images from the original note were not included. [facility] [place] [facility] Department of Cardiovascular Medicine DEPARTMENT OF CARDIAC SURGERY OUTPATIENT VISIT DATE October 13, 2021 OUTPATIENT VISIT TYPE POSTOPERATIVE Jermaine Begum is a 76 year old male who presents who is here for post operative follow up HPI: S/P on 09/30/2021 [facility] Surgeon: Dr. Mauricio Riley SURGERY: CABG x 3 (MANTILLA- LAD, SVG- OM1, SVG- PDA), Biatrial Maze procedure (RF with cryo), SUSHMA appendage clip (35 mm) Discharged on 10/06/2021 PAST MEDICAL HISTORY Diagnosis Date Arthritis Atrial flutter, unspecified type (HCC) CAD (coronary artery disease) Diabetes mellitus (HCC) Dilated aortic root (HCC) Diverticulosis of colon (without mention of hemorrhage) Gout HLD (hyperlipidemia) HTN (hypertension) Prostate cancer (HCC) scheduled for surgery September 09, 2021 Spinal stenosis of lumbar region without neurogenic claudication 09/23/2021 lumbar canal stenosis at L4-L5 PAST SURGICAL HISTORY Procedure Laterality Date ARTHRP ACETBLR/PROX FEM PROSTC AGRFT/ALGRFT 05/16/1996 right ARTHRP ACETBLR/PROX FEM PROSTC AGRFT/ALGRFT Left 03/16/2016 Dr. Wilkerson CARDIOVERSION N/A 09/19/2020 [facility] PAST SURGICAL HISTORY OF 05/16/1954 had left arm set above the wrist, PAST SURGICAL HISTORY OF 05/16/2013 Left partial knee replacement TONSILLECTOMY & ADENOIDECTOMY <AGE 11 05/16/1947 ALLERGIES No Known Allergies Current Outpatient Medications Medication Sig acetaminophen (TYLENOL) 325 mg tablet 2 tablets by ORAL/FEEDING TUBE route every 6 hours as needed for pain. furosemide (LASIX) 20 mg tablet Take 1 tablet by mouth once daily for 7 days. atorvastatin (LIPITOR) 80 mg tablet Take 1 tablet by mouth daily at bedtime. benazepril (LOTENSIN) 20 mg tablet Take 1 tablet by mouth once daily. blood sugar diagnostic (BLOOD GLUCOSE TEST) test strip Test blood sugar(s) 1 times daily. Dx: Type 2 DM - Controlled E11.9 Insulin: No (Patient taking differently: Test blood sugar(s) 1 times daily. Dx: Type 2 DM - Controlled E11.9 Insulin: No Uses as needed ) Lancets lancets Test blood sugar(s) 1 times daily. Dx: Type 2 DM - Controlled E11.9 Insulin: No (Patient taking differently: Test blood sugar(s) 1 times daily. Dx: Type 2 DM - Controlled E11.9 Insulin: No Uses as needed ) aspirin, enteric coated (ASPIRIN, ENTERIC COATED) 81 mg EC tablet Take 81 mg by mouth once daily. spironolactone (ALDACTONE) 25 mg tablet Take 1 tablet by mouth once daily. Current Facility-Administered Medications Medication Dose Route Frequency leuprolide 30 mg injection (ELIGARD) 30 mg SUBCUTANEOUS q 4 MONTHS Chief Complaints: well ok considering having some topics to review like weakness and breathing recovery Discharge Post Operative Course: Pain scale :Yes Incisional and back discomfort. Prn tylenol Appetite: food tastes funny but eating Activity: Walking ad pascual around the house Elimination: normal, no constipation , urination is normal Sleep: difficulty staying asleep Mood: normal and good Incisions/Wounds: healing Review of Systems: HEENT: Negative for fevers since discharge, chills, night sweats and blurry vision Cardiac: Denies significant problems, chest pain, Arrhythmia and leg edema Respiratory: denies dyspnea, orthopnea, occasional cough which has improved Musculoskeletal: No history of joint swelling, joint pain, or loss of range of motion. Neuro: Denies neurological complaints Physical Exam: BP 136/74 Pulse 85 Temp 36.9 C (98.4 F) (Temporal) Resp 12 Ht 185 cm (6' 0.84) Wt 100.2 kg (220 lb 14.4 oz) SpO2 100% BMI 29.27 kg/m Appearance: well groomed, white male, in no acute distress Neck: No neck vein distention Cardiac: regular S1, S2, No murmur, No rub Lungs: Clear breath sounds bilaterally without wheeze or dullness Abdomen: soft, non tender, Normal bowel sounds Extremities: No edema Sternum: stable, no click Sternotomy site: healing, clean, dry and intact Wound: NA SV Crescent sites: Location: Right LE, mid and distal, healing and clean, dry and intact Procedures: Sutures removed from chest tube sites without difficulty. IMPRESSION & PLAN: 1. S/P on 09/30/2021 [facility] Surgeon: Dr. Mauricio Riley SURGERY: CABG x 3 (MANTILLA- LAD, SVG- OM1, SVG- PDA), Biatrial Maze procedure (RF with cryo), SUSHMA appendage clip (35 mm) Discharged on 10/06/2021 2. CAD - continue asa and statin - bb on hold d/t post op junctional EC10/13/2021 Diagnosis: NORMAL SINUS RHYTHM COMPLETE RIGHT BUNDLE BRANCH BLOCK ABNORMAL ECG 3. Afib, parox - pre op hx on eliquis - post op junctional - currently NSR controlled rate - continue to monitor off atenolol and reassess with Cardiology - no need for eliquis at time of discharge per [facility] staff LABS: Component Latest Ref Rng & Units 10/06/2021 10/13/2021 Alkaline Phosphatase 38 - 113 U/L 82 134 (H) AST 14 - 40 U/L 33 77 (H) ALT 10 - 54 U/L 29 144 (H) Glucose 74 - 99 mg/dL 158 (H) 133 (H) BUN 9 - 24 mg/dL 45 (H) 15 Creatinine 0.73 - 1.22 mg/dL 1.14 1.04 Sodium 136 - 144 mmol/L 135 (L) 135 (L) Potassium 3.7 - 5.1 mmol/L 3.5 (L) 4.5 Component Latest Ref Rng & Units 10/06/2021 10/13/2021 WBC 3.70 - 11.00 k/uL 10.72 14.49 (H) RBC 4.20 - 6.00 m/uL 3.61 (L) 3.90 (L) Hemoglobin 13.0 - 17.0 g/dL 10.3 (L) 10.9 (L) Hematocrit 39.0 - 51.0 % 31.5 (L) 34.9 (L) Platelet Count 150 - 400 k/uL 235 535 (H) 4. Atelectasis/FVO - small susannah pleural effusions - weight: up 2lbs since discharge - encouraged to continue deep breathing exercises and walking CXR: 10/13/2021 RESULT: Lines, tubes, and devices: None. Lungs and pleura: There has been mild decrease in size of trace right pleural effusion. Small partially loculated left pleural effusion has mildly increased in size. Mixed changes of basilar atelectasis with improvement on the right more than left. Superimposed infiltrate/infection cannot be entirely excluded. No pneumothorax. Cardiomediastinal silhouette: Normal sized heart. Thoracic aorta is mildly tortuous. Bones and soft tissues: Median sternotomy. Generalized osteopenia. 5. HTN - stable - may need to resume atenolol later in recovery - continue to monitor Summary: See above. Follow up with PCP next week with repeat cbc and cmp Follow up with chisel worker in 4-6 weeks. Call CTS OPD with any issues, concerns or worsening surgical symptoms. Post op care and discharge orders reviewed with the patient- all questions were answered. Surgical sites healing without complication Discussed new medications, dosage, route of administration and side effects Reviewed walking program at home Reviewed diet guidelines for recovery from surgery Return to the clinic prn with signs or symptoms of infection, fevers, SOB, or pleural effusion SBE prophylaxis reviewed Discussed wound care Debbie Rivas APRN.CNP documented in this encounterOhiohealth Doctors Hospital05-31-2022 History of Present illness Narrative* RT Carolyn(R) - 10/13/2021 1:15 PM EDT Radiology Service Progress Note PATIENT NAME: Jermaine Begum DATE OF SERVICE: October 13, 2021 TIME: 2:52 PM PATIENT IDENTITY VERIFICATION COMPLETED USING TWO (2) IDENTIFIERS: Name and Date of confirmedby patient verbally. FALL SCREENING: Has the patient had 2 falls in the last year or 1 fall with injury or currently using an Ambulatory Assistive Device (Walker, Cane, Wheelchair, Crutches, etc.)? No PATIENT GENDER DATA: Male PATIENT RELEVANT IMPLANT DATA REVIEWED: Not Applicable RADIOLOGY DEPARTMENT: General X-ray: Exam(s) Completed: Chest X-Ray PERIPHERAL IV DATA: Not applicable SIGNED BY: RT Carolyn(R) October 13, 2021 2:52 PM documented in this encounterOhiohealth Doctors Hospital05-27-2022 History of Present illness Narrative* Diamond Damon MD - 10/09/2021 3:45 PM EDT VIRTUAL VISIT PROGRESS NOTE This is a virtual visit using Audio only. It required patient-provider interaction for the medical decision making as documented below. Converted from virtual to telephone visit d/t patient having technical difficulties with virtual platform. Persons Present: patient Chief Complaint/Reason: follow up Clinic note from 08/04/2021 copied and updated. HPI: Jermaine J Brayer is a 76 year old male with prostate cancer who presents for follow up evaluation. Family hx of prostate cancer: No Hx of prostate bx in 2011 which showed benign prostatic tissue with atrophy and focal chronic inflammation. PSA increased to 34.08 ng/mL (06/04/2021). MRI prostate (06/04/2021) PI-RADS 5 lesion and +EPE. He is s/p MRI fusion prostate biopsy on 06/23/2021. Final pathology revealed Gl 7 (4+3), GG3 CaP, 5of 9 cores positive. Bone scan (07/30/2021) with moderately increased uptake of the upper and midthoracic spine. Suggest radiographic correlation CT abd/pel (07/30/2021) with no metastatic disease in the abdomen and upper pelvis. Nondiagnostic CTof the lower pelvis below the level of the acetabular roof to the pubic symphysis (including the prostate) due to extensive streak artifact from bilateral hip arthroplasties. Nondisplaced LEFT sacral ala insufficiency fracture. He had an Eligard injection on 09/08/2021. He is s/p CABG x 3 grafts (MANTILLA- LAD, SVG- OM1, SVG- PDA), Biatrial Maze procedure (RF with cryo), SUSHMA appendage clip (35 mm) (09/30/21) for history of multivessel coronary artery disease with multiple PCI's He is scheduled for robotic prostatectomy on 11/19/2021 Interval Hx Overall, recovering well since his cardiac surgery on 09/30/2021. He was discharged from the hospital on 10/06/2021. No longer taking Eliquis- on daily baby ASA. Denies pain. No fevers/chills. Checking his BP at home, which he reports is good. Data Reviewed: Most recent labs and imaging results. Most recent surgical pathology Labs Surgical Pathology 06/23/2021 FINAL DIAGNOSIS 1. Prostate, target one left apex/mid posteromedial PZ, PI-RADS 5, biopsy (A): Adenocarcinoma of the prostate, Jackson score 3+4=7 (grade group 2), involving three of three cores (90%, 9 mm; 80%, 8 mm; 75%, 7.5 mm). - Cribriform pattern 4 is identified. 2. Prostate, right base, biopsy (B): Benign prostatic tissue. 3. Prostate, right mid, biopsy (C): Benign prostatic tissue. 4. Prostate, right apex, biopsy (D): Benign prostatic tissue. 5. Prostate, left base, biopsy (E): High-grade prostatic intraepithelial neoplasia. 6. Prostate, left mid, biopsy (F): Adenocarcinoma of the prostate, Jackson score 3+3=6 (grade group 1), involving one of one core (less than 5%, less than 1 mm). 7. Prostate, left apex, biopsy (G): Adenocarcinoma of the prostate, Jackson score 4+3=7 (grade group 3), involving one of one core (95%, 12 mm). -Cribriform pattern 4 is identified. Prostate Cancer Biopsy Summary Number of cores examined: 9 Number of cores positive: 5 Highest Grade Group: 3 Highest % of core involvement: 95% Cribriform pattern 4: Present Intraductal carcinoma: Absent PSA (ng/mL) Date Value 06/04/2021 34.08 04/03/2021 27.6 03/16/2016 7.63 06/13/2010 4.84 PSA, Percent Free (%) Date Value 06/13/[address] ABD/PEL W IVCON 07/30/2021 IMPRESSION: No metastatic disease in the abdomen and upper pelvis Nondiagnostic CT of the lower pelvis below the level of the acetabular roof to the pubic symphysis (including the prostate) due to extensive streak artifact from bilateral hip arthroplasties. Nondisplaced LEFT sacral ala insufficiency fracture NM BONE 07/30/2021 IMPRESSION: MODERATELY INCREASED UPTAKE OF THE UPPER AND MIDTHORACIC SPINE. SUGGEST RADIOGRAPHIC CORRELATION. MRI PROSTATE WO/W IVCON 06/04/2021 IMPRESSION: 2.1 CM PIRADS-5 LESION IN THE LEFT APEX-MID POSTERIOR PERIPHERAL ZONE MEDIALLY. EXTRAPROSTATIC EXTENSION IS PRESENT (TUMOR EXTENDS BEYOND CAPSULE). TUMOR INVASION OF THE NEUROVASCULAR BUNDLE IS SUSPECTED ON THE LEFT. SEMINAL VESICLES ARE UNREMARKABLE. TUMOR ABUTS THE ANTERIOR RECTAL WALL. SUBOPTIMAL EVALUATION FOR PELVIC LYMPHADENOPATHY DUE TO PRESENCE OF ARTIFACT FROM BILATERAL HIP PROSTHESES. CONSIDER CT SCAN FOR FURTHER EVALUATION. NO OSSEOUS METASTATIC DISEASE WITHIN THE WELL VISUALIZED OSSEOUS STRUCTURES WITH ARTIFACT IN THE PELVIS DESCRIBED ABOVE.. HISTORY REVIEWED (electronic chart updated): PAST MEDICAL HISTORY Diagnosis Date Arthritis Atrial flutter, unspecified type (HCC) CAD (coronary artery disease) Diabetes mellitus (HCC) Dilated aortic root (HCC) Diverticulosis of colon (without mention of hemorrhage) Gout HLD (hyperlipidemia) HTN (hypertension) Prostate cancer (HCC) scheduled for surgery September 09, 2021 Spinal stenosis of lumbar region without neurogenic claudication 09/23/2021 lumbar canal stenosis at L4-L5 PAST SURGICAL HISTORY Procedure Laterality Date ARTHRP ACETBLR/PROX FEM PROSTC AGRFT/ALGRFT 05/16/1996 right ARTHRP ACETBLR/PROX FEM PROSTC AGRFT/ALGRFT Left 03/16/2016 Dr. Wilkerson CARDIOVERSION N/A 09/19/2020 [facility] PAST SURGICAL HISTORY OF 05/16/1954 had left arm set above the wrist, PAST SURGICAL HISTORY OF 05/16/2013 Left partial knee replacement TONSILLECTOMY & ADENOIDECTOMY <AGE 11 05/16/1947 FAMILY HISTORY Problem Relation Age of Onset Diabetes Mother Hypertension Mother Kidney Disease Father on dialysis Coronary Artery Disease Father Pneumonia Father Breast Cancer Sister Cancer Sister lymp/ 60 yr No Known Problems Maternal Grandmother No Known Problems Maternal Grandfather No Known Problems Paternal Grandmother No Known Problems Paternal Grandfather Social History Tobacco Use Smoking status: Current Every Day Smoker Types: Cigars Smokeless tobacco: Never Used Tobacco comment: Pt. quit smoking cigarettes in 1969 - don't consciously inhale Vaping Use Vaping Use: Never used Substance Use Topics Alcohol use: Yes Comment: 1 glass of wine with dinner Drug use: No Current Outpatient Medications Medication Sig acetaminophen (TYLENOL) 325 mg tablet 2 tablets by ORAL/FEEDING TUBE route every 6 hours as needed for pain. [START ON 10/07/2021] furosemide (LASIX) 20 mg tablet Take 1 tablet by mouth once daily for 7 days. atorvastatin (LIPITOR) 80 mg tablet Take 1 tablet by mouth daily at bedtime. benazepril (LOTENSIN) 20 mg tablet Take 1 tablet by mouth once daily. blood sugar diagnostic (BLOOD GLUCOSE TEST) test strip Test blood sugar(s) 1 times daily. Dx: Type 2 DM - Controlled E11.9 Insulin: No (Patient taking differently: Test blood sugar(s) 1 times daily. Dx: Type 2 DM - Controlled E11.9 Insulin: No Uses as needed ) Lancets lancets Test blood sugar(s) 1 times daily. Dx: Type 2 DM - Controlled E11.9 Insulin: No (Patient taking differently: Test blood sugar(s) 1 times daily. Dx: Type 2 DM - Controlled E11.9 Insulin: No Uses as needed ) aspirin, enteric coated (ASPIRIN, ENTERIC COATED) 81 mg EC tablet Take 81 mg by mouth once daily. spironolactone (ALDACTONE) 25 mg tablet Take 1 tablet by mouth once daily. Current Facility-Administered Medications Medication Dose Route Frequency leuprolide 30 mg injection (ELIGARD) 30 mg SUBCUTANEOUS q 4 MONTHS ALLERGIES No Known Allergies REVIEW OF SYSTEMS: GENERAL: no recent change in weight, no fever CARDIOVASCULAR: no chest pain : urination is normal PHYSICAL EXAMINATION: VIDEO EXAM: (if completed, performed via video enabled technology) No exam performed- telephone visit. Debbie Morrow APRN.GROUT MACHINE TENDER ASSESSMENT: No diagnosis found. PLAN: preop robotic prostatectomy questions answered There are no Patient Instructions on file for this visit. It was necessary to convert the virtual visit to a telephone encounter due to technical difficulties. Diamond Damon MD documented in this encounterOhiohealth [facility] Hospital05-25-2022 History of Present illness Narrative* Precious Deleon Ma - 10/07/2021 3:20 PM EDT Spoke with PCP regarding pt who feels that Surgeon should review area. Pt would like to keep appt and contact Surgeon's office and update PCP office before coming in if okay to remove. Pt has been r/s to 4:20 pm to allow proper 40 min appt time. * Fiorella Nance MA - 10/07/2021 12:13 PM EDT POPULATION HEALTH NAVIGATION OUTREACH Action/October 07, 2021 Spoke with patient in regards to scheduling his [facility] follow up. Patient went in detail about his concern about this bandage on his leg. He is going to contact his surgeons office to see what he should do in regards to this. He then stated he does not feel an office visit is needed with PCP at this time. Encouraged patient to see PCP for follow up care. He requested and appointment in the next few days, hoping to have someone look at his leg and bandage as well. We have scheduled him with Dee Rider MD on 10.08.2021 Thank you Pt identified by name and : YES, via phone Outreach Outcome/Action Spoke to patient or caregiver: Patient scheduled Reason for Outreach Community Monitoring Pool Payer: Payor: JUDY [employer] CROSS AND BLUE SHIELD / Plan: [employer] HMO / Product Type: HMO / Care Gap Reviewed:: Follow-up appointment Reminder: Reminder note to check Health Maintenance for items below Health Maintenance items due: DIABETIC FOOT EXAM Never done SHINGRIX VACCINE(1 of 2) Never done PNEUMOCOCCAL: 65+(3 - PPSV23 or PCV20) due on 05/15/2019 DILATED RETINAL EXAM due on 05/01/2021 ADVANCE DIRECTIVE DISCUSSION Never done COVID-19 VACCINE(4 - Booster for Pfizer series) due on 08/04/2021 DEPRESSION SCREENING due on 09/16/2021 URINE ALBUMIN:CREATININE RATIO due on 09/18/2021 Message Sent to Practice: No Navigation Signature: Fiorella Nance MA October 07, 2021 12:13 PM * Clarke Rodriguez RN - 10/07/2021 10:11 AM EDT TCM Home Visit Referral Source of Stratification: [facility] Admission Status: Discharged Readmission Risk Score: 26 REYMUNDO Score: 6 Program referral criteria met: Does not meet referral criteria Patient does not qualify for High Risk TCM Home Visit program due to: Does not meet referral criteria Patient does not quality for High Risk TCM Home Visit Program due to: Does not meet referral criteria TRANSITIONAL CARE MANAGEMENT (TCM) COMMUNITY MONITORING PROGRAM Provider Action/FYI: Spoke to patient. Pt's weight this morning is 221lbs. Pt does have some swelling in bilateral feet. Swelling has improved since yesterday. Denies chest pain, SOB, fever, chills, or redness of incision sites. When pt's IV was removed in the hospital Pt states he was bleeding for at least 30 minutes Pt has a dressing on his groin that he is nervous to take the dressing off. I advised the pt he could reach out to the cardiology dept to see if they would be able to assist. Pt states he does not want to drive there and would rather his PCP office remove the dressing. I advised the pt I would have the senior power scheduler call to schedule a f/u with PCP but I was unsure if they would remove the dressing. Pt verbalizes understanding and denies questions or concerns. Agreeable to additional outreaches as needed. Appointments for Next 60 Days Date Time Provider Location Dept Phone 10/09/2021 3:45 PM DIAMOND DAMON [facility] [phone] 10/13/2021 1:15 PM XR CHEST MAIN J1 [facility] [phone] 10/13/2021 1:30 PM LBJ1-4 MAIN Mn J Bld[facility] [phone] 10/13/2021 1:45 PM EKGJ1-4 MAIN Mn J Bld[facility] [phone] 10/13/2021 2:00 PM DEBBIE RIVAS [facility] [phone] 10/20/2021 12:30 PM SURGICAL REGISTRATION 2 Mn J Bldg 11/17/2021 11:00 AM CHELITA KEANE [facility] [phone] 11/17/2021 12:15 PM ADMIT INTERVIEW A12 PSSC A Bldg 11/17/2021 12:50 PM PACC MAIN 3 Mn A Bldg [phone] 11/17/2021 1:30 PM LAB A15 MAIN Mn A Bldg [phone] 11/17/2021 2:15 PM LAB COVID MN P BLDG Brandon P Bldg SUMMARY: Pt discharged from [facility] on 10/06/21. Admitted for: Coronary artery disease involving pilot point coronary artery of pilot point heart without angina pectoris Operations during Hospitalization: Day of Surgery:09/30/2021 S/P SURGERY: CABG x 3 (MANTILLA- LAD, SVG- OM1, SVG- PDA), Biatrial Maze procedure (RF with cryo), SUSHMA appendage clip (35 mm) Contact made with patient: Yes Hi my name is Clarke Rodriguez RN and I am calling from the [facility] on behalf of your PCP, Dee Rider MD I understand you were recently in the hospital so I am calling to check in with you to ensure you are feeling well now that you're home. May I ask you a few questions related to your hospital stay and well-being? Yes Contact with patient post discharge, spoke to patient. Patient identified by name and . Do you feel your health is BETTER, WORSE, or the SAME since leaving the hospital? Same ACTION TAKEN: Patient indicated symptoms are better or same, no action required. Continue outreach. MEDICATIONS: Many patients have questions or concerns about their medications once they are home. Do you have any questions about taking your medications or which medication you should be on? No Do you need any medication refills at this time, including any of the medications you might take only when needed? No ACTION TAKEN: No action required For RNs or Pharmacy completing outreach ONLY, was a medication review completed? Yes SOCIAL: We would like to make sure you have what you need so that your basics needs are met - including your personal safety, food, housing and medications. Would you like to speak with a social work guest service team leader to help give you support for any of these needs? No It can be normal to feel anxious or down during a time like this. Would you like to talk to a mental health professional about how you have been feeling? No ACTION TAKEN: No action taken DISCHARGE INTRUCTIONS: Your discharge instructions / After Visit Summary (AVS) are important in guiding you through the recovery process. Do you have any questions related to your discharge instructions? No Do you have all the necessary equipment and supplies at home? Yes ACTION TAKEN: No action required I would like to help you schedule a hospital follow-up virtual or telephone visit with your PCP. This is a great way for you to connect with your provider to ensure you have safely transitioned home.If you are agreeable, I will send your request to a senior power scheduler who will contact and assist you with that appointment. This will give you an opportunity to ask any questions or address any concerns youmay have with your PCP. Inform the patient that if they have any questions or concerns prior to that appointment, to call their PCP's office right away. ACTION TAKEN: Patient desires an appointment - Routed to [facility] [[id number]] for schedulingtelehealth visit (telephonic, virtual visit, or Facetime) within 7 days of discharge with PCP care team. Indicate hospital follow-up appointment needed within 7 days in Provider/FYI box. End Outreach. Your doctor would like us to remind you of the recommendations regarding the coronavirus (Covid19) outbreak: Avoid public places as much as possible. Avoid close contact (within 6 feet) with others you don t live with, especially if they are sick. Stay home if you are sick. Wash your hands regularly for at least 20 seconds with soap and water. Wear a cloth mask in public places to help reduce community spread. Do not go to your Doctor s office unless instructed to do so. For any non- emergency symptoms, call your Doctor s office to get instructions on how to manage (we might recommend a telephone or virtualvisit). For emergency symptoms, proceed to Emergency Department as usual but inform them of cough and fever symptoms RUBI if present (or call on the way if possible). Clarke Rodriguez RN documented in this encounterOhio[facility]05-25-2022 Miscellaneous Notes* Telephone Encounter - Ana Gasca RN - 10/07/2021 2:27 PM EDT RC RN Attempted to reach patient as a follow up call after recent discharge from hospital. Pt prefers call back. Ana Gasca RN documented in this encounterOhiohealth [facility]05-25-2022 History of Present illness Narrative* Marium Marrero RPh - 10/07/2021 9:17 AM EDT TRANSITION CARE MANAGEMENT (TCM) PHARMACY CONTACT Provider Action/FYI: Unable to reach patient after unsuccessful outreach attempt. Left voicemail for patient including call back number to TCM pharmacist. TCM medication reconciliation incomplete at this time Patient unable to be reached after unsuccessful outreach attempt(s). No further attempts to contactpatient will be made. SUMMARY: -Pt discharged from [facility] on 10/06/21. -Follow up appointment on Defer to TCM hub RN for scheduling assistance. -Medication review not done -Admitted for surgical treatment of CAD History of Present Illness: The following content has been copied and pasted from patient's discharge summary. If discharge summary unavailable, After Visit Summary or last pertinent inpatient notes are copied and pasted. Admission Diagnosis: Complex Vessel Coronary Artery Disease, Paroxysmal Atrial Fibrillation Discharge Diagnosis: Complex Vessel Coronary Artery Disease, Paroxysmal Atrial Fibrillation Reason for Hospitalization: Mr. Begum is a 76yr old male with a history of multivessel coronary artery disease with multiple PCI's, HTN, afib T2DM (not on any medications) and prostate CA with planned surgery in 11/2021. He presents for surgical treatment of coronary artery disease. Operations during Hospitalization: Day of Surgery:09/30/2021 S/P SURGERY: CABG x 3 (MANTILLA- LAD, SVG- OM1, SVG- PDA), Biatrial Maze procedure (RF with cryo), SUSHMA appendage clip (35 mm) Hospital Course: * How was the Reason for Hospitalization Addressed: -S/p CABG x 3: Asa, statin, no BB due to rhythm earlier in course. -S/p MAZE/LAAC. Junctional caroline (40s) postop, now SB with 1st degree AVB in the 50s. Pre-op on Eliquis - no need to resume since he is in sinus per CTS. No BB at this time. -MICKI- EKG w/ inferior lead MICKI in leads II and aVF only. Patient asymptomatic; seen by CMET. No concern for ischemic injury at this time. Troponins done x 3; daily EKG x 3 unchanged. -HTN (pre-op on Benazepril, Aldactone & Atenolol): SBP currently controlled with home Benazepril & IV lasix. At time of dc - cont Benazepril & resume home Aldactone. Holding Atenolol for now. -VAISHNAVI: Scr peaked at 1.9 post-op (baseline 1.1), Scr 1.31 and stable at time of dc. Repeat labs withf/u to monitor. -FVO: +1kg from pre-op weight. Small effusions on CXR. Continue home aldactone and one week of PO lasix at time of dc. * What were the Active Issues: CAD s/p CABG, h/o AFIB s/p MAXE/LAAC -->SB at time of dc, HTN, DM2, FVO, resolving VAISHNAVI * Surgical Pathology/Microbiology: n/a * Hospital Course Complicated by: VAISHNAVI, MICKI, junctional bradycardia * Extended Hospital Stay Due to: Expected post-op course * Specific Medication Changes: Discharge medication reconciliation included below. -Holding Atenolol d/t junctional bradycardia earlier in course -Holding Eliquis post-operatively per surgeon as patient in NSR -7 days of PO lasix for ongoing management of FVO/small b/l pleural effusions * Pain: Controlled on Tylenol. Declined narcotics at time of dc. * Surgical Incisions/Wounds: Mediastinal and saphenous harvest sites are clean, dry and intact. Chest tube sutures removed. Sternal precautions for 6 weeks. * Patient Condition at Discharge: Stable * Disposition: Home with Relative Medication Reconciliation: Legend: Stopped, New, Changed, Added to list Medication List Medication Directions Comments Action/Plan acetaminophen (TYLENOL) 325 mg tablet 2 tablets by ORAL/FEEDING TUBE route every 6 hours as needed for pain. OTC Discontinued: 10/06/2021 9:48 AM aspirin, enteric coated (ASPIRIN, ENTERIC COATED) 81 mg EC tablet Take 81 mg by mouth once daily. OTC Discontinued: 10/06/2021 9:48 AM atorvastatin (LIPITOR) 80 mg tablet Take 1 tablet by mouth daily at bedtime. Confirmed fills on medication dispense history. benazepril (LOTENSIN) 20 mg tablet Take 1 tablet by mouth once daily. There is no medication dispense history for this medication. blood sugar diagnostic (BLOOD GLUCOSE TEST) test strip Test blood sugar(s) 1 times daily. Dx: Type 2 DM - Controlled E11.9 Insulin: No Patient taking differently: Test blood sugar(s) 1 times daily. Dx: Type 2 DM - Controlled E11.9 Insulin: No Uses as needed furosemide (LASIX) 20 mg tablet Take 1 tablet by mouth once daily for 7 days. Confirmed fills on medication dispense history. [facility] [address] [place] [id number] [address] [facility] [phone] 1811 Discontinued: 10/06/2021 9:48 AM Lancets lancets Test blood sugar(s) 1 times daily. Dx: Type 2 DM - Controlled E11.9 Insulin: No Patient taking differently: Test blood sugar(s) 1 times daily. Dx: Type 2 DM - Controlled E11.9 Insulin: No Uses as needed Discontinued: 10/06/2021 9:48 AM Discontinued: 10/06/2021 9:48 AM spironolactone (ALDACTONE) 25 mg tablet Take 1 tablet by mouth once daily. Confirmed fills on medication dispense history. Preferred pharmacy: e- [facility] [address] [place] [id number] [address] [facility] - [phone] [place] [address] e- [facility] [place] [place] [address] - [address] - [phone] [address] [facility] [address] [facility] [address] [facility] [address] [facility] [address] [facility] [id number] Estimated Creatinine Clearance: 68.5 mL/min (based on SCr of 1.14 mg/dL). Estimated Glomerular Filtration Rate (mL/min/1.73m ) Date Value 10/06/2021 66 eGFR- (no units) Date Value 03/30/2021 >60 ALLERGIES No Known Allergies PAST MEDICAL HISTORY Diagnosis Date Arthritis Atrial flutter, unspecified type (HCC) CAD (coronary artery disease) Diabetes mellitus (HCC) Dilated aortic root (HCC) Diverticulosis of colon (without mention of hemorrhage) Gout HLD (hyperlipidemia) HTN (hypertension) Prostate cancer (HCC) scheduled for surgery September 09, 2021 Spinal stenosis of lumbar region without neurogenic claudication 09/23/2021 lumbar canal stenosis at L4-L5 Social History Tobacco Use Smoking status: Current Every Day Smoker Types: Cigars Smokeless tobacco: Never Used Tobacco comment: Pt. quit smoking cigarettes in 1970 - don't consciously inhale Vaping Use Vaping Use: Never used Substance Use Topics Alcohol use: Yes Comment: 1 glass of wine with dinner Drug use: No Immunization History Administered Date(s) Administered COVID-19 vaccine, age 12+ yr (PFIZER-[employer] - PURPLE TOP) 06/17/2020 07/08/2020 04/06/2021 DT(PEDIATRIC) 02/04/2003 Influenza Seasonal - High Dose - Age 65+ 05/15/2018 Pneumococcal-13 Vac Conjugate 05/15/2018 Pneumovax 03/20/2013 TD Adult 07/26/2013 Additional follow up: Appointments for Next 60 Days Date Time Provider Location Dept Phone 10/09/2021 3:45 PM DAMONDIAMOND [facility] [phone] 10/13/2021 1:15 PM XR CHEST MAIN J1 Mn J Bldg [phone] 10/13/2021 1:30 PM LBJ1-4 MAIN Mn J Bldg [phone] 10/13/2021 1:45 PM EKGJ1-4 MAIN Mn J Bldg [phone] 10/13/2021 2:00 PM EVELYN KELLYCHANELLE Mn J Bldg [phone] 10/20/2021 12:30 PM SURGICAL REGISTRATION 2 Mn J Bldg 11/17/2021 11:00 AM LAKHWINDERCHELITA Mn Q Bldg [phone] 11/17/2021 12:15 PM ADMIT INTERVIEW A12 PSSC A Bldg 11/17/2021 12:50 PM PACC MAIN 3 Mn A Bldg [phone] 11/17/2021 1:30 PM LAB A15 MAIN Mn A Bldg [phone] 11/17/2021 2:15 PM LAB COVID MN P BLDG Brandon P Bldg Interventions Made: None Pharmacist Recommendations Made None Care Coordination: None at this time Time spent on patient: 15-30 minutes Marium Marrero RPh October 07, 2021 9:23 AM documented in this encounterOhio[facility]05-19-2022 History of Past illness Narrative* Problem Noted Date Resolved Date Hypervolemia 10/01/2021 10/04/2021 Overview: History: Postop Assessment:Net negative 2 L x 24 hours, on 40mg Qid with rising BUN, drop in creatinine & improvement in NA Plan: Reduce Lasix 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 Grade I airway. Assessment: Bibasilar atelectasis on CXR. Adequate oxygenation on 2L NC. Plan: BPH, OOB, and pep therapy. Wean O2 as able. Hypovolemia 09/30/2021 10/04/2021 Overview: History: Post-op Assessment: Post op fluid shifts Plan: IVF replacement prn Pain, postoperative, acute 09/30/202110/04 Overview: History: 09/30/2021: CABG x 3, MAZE, LAAC Assessment: Voices adequate pain control. Plan: Scheduled Tylenol, lidocaine patches, and PRN oxycodone Junctional bradycardia 09/30/2021 Overview: See paroxysmal atrial fibrillation Coronary artery disease invo lving pilot point coronary artery of pilot point heart without angina pectoris 08/27/2021 09/30/2021 documented as of this encounter (statuses as of 10/07/2021) [facility] History of Past illness Narrative* Problem Noted Date Resolved Date Hypervolemia 10/01/2021 10/04/2021 Overview: History: Postop Assessment:Net negative 2 L x 24 hours, on 40mg Qid with rising BUN, drop in creatinine & improvement in NA Plan: Reduce Lasix 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 Grade I airway. Assessment: Bibasilar atelectasis on CXR. Adequate oxygenation on 2L NC. Plan: BPH, OOB, and pep therapy. Wean O2 as able. Hypovolemia 09/30/2021 10/04/2021 Overview: History: Post-op Assessment: Post op fluid shifts Plan: IVF replacement prn Pain, postoperative, acute 09/30/202110/04 Overview: History: 09/30/2021: CABG x 3, MAZE, LAAC Assessment: Voices adequate pain control. Plan: Scheduled Tylenol, lidocaine patches, and PRN oxycodone Junctional bradycardia 09/30/2021 Overview: See paroxysmal atrial fibrillation Coronary artery disease invo lving [place] coronary artery of [place] heart without angina pectoris 08/27/2021 09/30/2021 documented as of this encounter (statuses as of 10/13/2021) [facility]22 History of Past illness Narrative* Problem Noted Date Resolved Date Hypervolemia 10/01/2021 10/04/2021 Overview: History: Postop Assessment:Net negative 2 L x 24 hours, on 40mg Qid with rising BUN, drop in creatinine & improvement in NA Plan: Reduce Lasix 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 Grade I airway. Assessment: Bibasilar atelectasis on CXR. Adequate oxygenation on 2L NC. Plan: BPH, OOB, and pep therapy. Wean O2 as able. Hypovolemia 09/30/2021 10/04/2021 Overview: History: Post-op Assessment: Post op fluid shifts Plan: IVF replacement prn Pain, postoperative, acute 09/30/202110/04 Overview: History: 09/30/2021: CABG x 3, MAZE, LAAC Assessment: Voices adequate pain control. Plan: Scheduled Tylenol, lidocaine patches, and PRN oxycodone Junctional bradycardia 09/30/2021 Overview: See paroxysmal atrial fibrillation Coronary artery disease invo lving [place] coronary artery of [place] heart without angina pectoris 08/27/2021 09/30/2021 documented as of this encounter (statuses as of 10/14/2021) [facility] History of Past illness Narrative* Problem Noted Date Resolved Date Hypervolemia 10/01/2021 10/04/2021 Overview: History: Postop Assessment:Net negative 2 L x 24 hours, on 40mg Qid with rising BUN, drop in creatinine & improvement in NA Plan: Reduce Lasix 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 Grade I airway. Assessment: Bibasilar atelectasis on CXR. Adequate oxygenation on 2L NC. Plan: BPH, OOB, and pep therapy. Wean O2 as able. Hypovolemia 09/30/2021 10/04/2021 Overview: History: Post-op Assessment: Post op fluid shifts Plan: IVF replacement prn Pain, postoperative, acute 09/30/202110/04 Overview: History: 09/30/2021: CABG x 3, MAZE, LAAC Assessment: Voices adequate pain control. Plan: Scheduled Tylenol, lidocaine patches, and PRN oxycodone Junctional bradycardia 09/30/2021 Overview: See paroxysmal atrial fibrillation Coronary artery disease invo lving [place] coronary artery of [place] heart without angina pectoris 08/27/2021 09/30/2021 documented as of this encounter (statuses as of 10/14/2021) [facility] History of Past illness Narrative* Problem Noted Date Resolved Date Hypervolemia 10/01/2021 10/04/2021 Overview: History: Postop Assessment:Net negative 2 L x 24 hours, on 40mg Qid with rising BUN, drop in creatinine & improvement in NA Plan: Reduce Lasix 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 Grade I airway. Assessment: Bibasilar atelectasis on CXR. Adequate oxygenation on 2L NC. Plan: BPH, OOB, and pep therapy. Wean O2 as able. Hypovolemia 09/30/2021 10/04/2021 Overview: History: Post-op Assessment: Post op fluid shifts Plan: IVF replacement prn Pain, postoperative, acute 09/30/202110/04 Overview: History: 09/30/2021: CABG x 3, MAZE, LAAC Assessment: Voices adequate pain control. Plan: Scheduled Tylenol, lidocaine patches, and PRN oxycodone Junctional bradycardia 09/30/2021 Overview: See paroxysmal atrial fibrillation Coronary artery disease invo lving [place] coronary artery of [place] heart without angina pectoris 08/27/2021 09/30/2021 documented as of this encounter (statuses as of 10/15/2021) [facility] History of Past illness Narrative* Problem Noted Date Resolved Date Hypervolemia 10/01/2021 10/04/2021 Overview: History: Postop Assessment:Net negative 2 L x 24 hours, on 40mg Qid with rising BUN, drop in creatinine & improvement in NA Plan: Reduce Lasix 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 Grade I airway. Assessment: Bibasilar atelectasis on CXR. Adequate oxygenation on 2L NC. Plan: BPH, OOB, and pep therapy. Wean O2 as able. Hypovolemia 09/30/2021 10/04/2021 Overview: History: Post-op Assessment: Post op fluid shifts Plan: IVF replacement prn Pain, postoperative, acute 09/30/202110/04 Overview: History: 09/30/2021: CABG x 3, MAZE, LAAC Assessment: Voices adequate pain control. Plan: Scheduled Tylenol, lidocaine patches, and PRN oxycodone Junctional bradycardia 09/30/2021 Overview: See paroxysmal atrial fibrillation Coronary artery disease invo lving [place] coronary artery of [place] heart without angina pectoris 08/27/2021 09/30/2021 documented as of this encounter (statuses as of 10/25/2021) [facility] History of Past illness Narrative* Problem Noted Date Resolved Date Hypervolemia 10/01/2021 10/04/2021 Overview: History: Postop Assessment:Net negative 2 L x 24 hours, on 40mg Qid with rising BUN, drop in creatinine & improvement in NA Plan: Reduce Lasix 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 Grade I airway. Assessment: Bibasilar atelectasis on CXR. Adequate oxygenation on 2L NC. Plan: BPH, OOB, and pep therapy. Wean O2 as able. Hypovolemia 09/30/2021 10/04/2021 Overview: History: Post-op Assessment: Post op fluid shifts Plan: IVF replacement prn Pain, postoperative, acute 09/30/202110/04 Overview: History: 09/30/2021: CABG x 3, MAZE, LAAC Assessment: Voices adequate pain control. Plan: Scheduled Tylenol, lidocaine patches, and PRN oxycodone Junctional bradycardia 09/30/2021 Overview: See paroxysmal atrial fibrillation Coronary artery disease invo lving [place] coronary artery of [place] heart without angina pectoris 08/27/2021 09/30/2021 documented as of this encounter (statuses as of 10/30/2021) [facility] History of Past illness Narrative* Problem Noted Date Resolved Date Hypervolemia 10/01/2021 10/04/2021 Overview: History: Postop Assessment:Net negative 2 L x 24 hours, on 40mg Qid with rising BUN, drop in creatinine & improvement in NA Plan: Reduce Lasix 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 Grade I airway. Assessment: Bibasilar atelectasis on CXR. Adequate oxygenation on 2L NC. Plan: BPH, OOB, and pep therapy. Wean O2 as able. Hypovolemia 09/30/2021 10/04/2021 Overview: History: Post-op Assessment: Post op fluid shifts Plan: IVF replacement prn Pain, postoperative, acute 09/30/202110/04 Overview: History: 09/30/2021: CABG x 3, MAZE, LAAC Assessment: Voices adequate pain control. Plan: Scheduled Tylenol, lidocaine patches, and PRN oxycodone Junctional bradycardia 09/30/2021 Overview: See paroxysmal atrial fibrillation Coronary artery disease invo lving [place] coronary artery of [place] heart without angina pectoris 08/27/2021 09/30/2021 documented as of this encounter (statuses as of 11/04/2021) [facility] History of Past illness Narrative* Problem Noted Date Resolved Date Hypervolemia 10/01/2021 10/04/2021 Overview: History: Postop Assessment:Net negative 2 L x 24 hours, on 40mg Qid with rising BUN, drop in creatinine & improvement in NA Plan: Reduce Lasix 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 Grade I airway. Assessment: Bibasilar atelectasis on CXR. Adequate oxygenation on 2L NC. Plan: BPH, OOB, and pep therapy. Wean O2 as able. Hypovolemia 09/30/2021 10/04/2021 Overview: History: Post-op Assessment: Post op fluid shifts Plan: IVF replacement prn Pain, postoperative, acute 09/30/202110/04 Overview: History: 09/30/2021: CABG x 3, MAZE, LAAC Assessment: Voices adequate pain control. Plan: Scheduled Tylenol, lidocaine patches, and PRN oxycodone Junctional bradycardia 09/30/2021 Overview: See paroxysmal atrial fibrillation Coronary artery disease invo lving [place] coronary artery of [place] heart without angina pectoris 08/27/2021 09/30/2021 documented as of this encounter (statuses as of 11/11/2021) [facility] History of Past illness Narrative* Problem Noted Date Resolved Date Hypervolemia 10/01/2021 10/04/2021 Overview: History: Postop Assessment:Net negative 2 L x 24 hours, on 40mg Qid with rising BUN, drop in creatinine & improvement in NA Plan: Reduce Lasix 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 Grade I airway. Assessment: Bibasilar atelectasis on CXR. Adequate oxygenation on 2L NC. Plan: BPH, OOB, and pep therapy. Wean O2 as able. Hypovolemia 09/30/2021 10/04/2021 Overview: History: Post-op Assessment: Post op fluid shifts Plan: IVF replacement prn Pain, postoperative, acute 09/30/202110/04 Overview: History: 09/30/2021: CABG x 3, MAZE, LAAC Assessment: Voices adequate pain control. Plan: Scheduled Tylenol, lidocaine patches, and PRN oxycodone Junctional bradycardia 09/30/2021 Overview: See paroxysmal atrial fibrillation Coronary artery disease invo lving [place] coronary artery of [place] heart without angina pectoris 08/27/2021 09/30/2021 documented as of this encounter (statuses as of 11/11/2021) [facility] History of Past illness Narrative* Problem Noted Date Resolved Date Hypervolemia 10/01/2021 10/04/2021 Overview: History: Postop Assessment:Net negative 2 L x 24 hours, on 40mg Qid with rising BUN, drop in creatinine & improvement in NA Plan: Reduce Lasix 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 Grade I airway. Assessment: Bibasilar atelectasis on CXR. Adequate oxygenation on 2L NC. Plan: BPH, OOB, and pep therapy. Wean O2 as able. Hypovolemia 09/30/2021 10/04/2021 Overview: History: Post-op Assessment: Post op fluid shifts Plan: IVF replacement prn Pain, postoperative, acute 09/30/202110/04 Overview: History: 09/30/2021: CABG x 3, MAZE, LAAC Assessment: Voices adequate pain control. Plan: Scheduled Tylenol, lidocaine patches, and PRN oxycodone Junctional bradycardia 09/30/2021 Overview: See paroxysmal atrial fibrillation Coronary artery disease invo lving [place] coronary artery of [place] heart without angina pectoris 08/27/2021 09/30/2021 documented as of this encounter (statuses as of 11/17/2021) [facility] History of Past illness Narrative* Problem Noted Date Resolved Date Hypervolemia 10/01/2021 10/04/2021 Overview: History: Postop Assessment:Net negative 2 L x 24 hours, on 40mg Qid with rising BUN, drop in creatinine & improvement in NA Plan: Reduce Lasix 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 Grade I airway. Assessment: Bibasilar atelectasis on CXR. Adequate oxygenation on 2L NC. Plan: BPH, OOB, and pep therapy. Wean O2 as able. Hypovolemia 09/30/2021 10/04/2021 Overview: History: Post-op Assessment: Post op fluid shifts Plan: IVF replacement prn Pain, postoperative, acute 09/30/202110/04 Overview: History: 09/30/2021: CABG x 3, MAZE, LAAC Assessment: Voices adequate pain control. Plan: Scheduled Tylenol, lidocaine patches, and PRN oxycodone Junctional bradycardia 09/30/2021 Overview: See paroxysmal atrial fibrillation Coronary artery disease invo lving [place] coronary artery of [place] heart without angina pectoris 08/27/2021 09/30/2021 documented as of this encounter (statuses as of 11/17/2021) [facility] History of Past illness Narrative* Problem Noted Date Resolved Date Hypervolemia 10/01/2021 10/04/2021 Overview: History: Postop Assessment:Net negative 2 L x 24 hours, on 40mg Qid with rising BUN, drop in creatinine & improvement in NA Plan: Reduce Lasix 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 Grade I airway. Assessment: Bibasilar atelectasis on CXR. Adequate oxygenation on 2L NC. Plan: BPH, OOB, and pep therapy. Wean O2 as able. Hypovolemia 09/30/2021 10/04/2021 Overview: History: Post-op Assessment: Post op fluid shifts Plan: IVF replacement prn Pain, postoperative, acute 09/30/202110/04 Overview: History: 09/30/2021: CABG x 3, MAZE, LAAC Assessment: Voices adequate pain control. Plan: Scheduled Tylenol, lidocaine patches, and PRN oxycodone Junctional bradycardia 09/30/2021 Overview: See paroxysmal atrial fibrillation Coronary artery disease invo lving [place] coronary artery of [place] heart without angina pectoris 08/27/2021 09/30/2021 documented as of this encounter (statuses as of 11/20/2021) [facility] History of Past illness Narrative* Problem Noted Date Resolved Date Hypervolemia 10/01/2021 10/04/2021 Overview: History: Postop Assessment:Net negative 2 L x 24 hours, on 40mg Qid with rising BUN, drop in creatinine & improvement in NA Plan: Reduce Lasix 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 Grade I airway. Assessment: Bibasilar atelectasis on CXR. Adequate oxygenation on 2L NC. Plan: BPH, OOB, and pep therapy. Wean O2 as able. Hypovolemia 09/30/2021 10/04/2021 Overview: History: Post-op Assessment: Post op fluid shifts Plan: IVF replacement prn Pain, postoperative, acute 09/30/202110/04 Overview: History: 09/30/2021: CABG x 3, MAZE, LAAC Assessment: Voices adequate pain control. 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 Grade I airway. Assessment: Bibasilar atelectasis on CXR. Adequate oxygenation on 2L NC. Plan: BPH, OOB, and pep therapy. Wean O2 as able. Hypovolemia 09/30/2021 10/04/2021 Overview: History: Post-op Assessment: Post op fluid shifts Plan: IVF replacement prn Pain, postoperative, acute 09/30/202110/04 Overview: History: 09/30/2021: CABG x 3, MAZE, LAAC Assessment: Voices adequate pain control. 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 Grade I airway. Assessment: Bibasilar atelectasis on CXR. Adequate oxygenation on 2L NC. Plan: BPH, OOB, and pep therapy. Wean O2 as able. Hypovolemia 09/30/2021 10/04/2021 Overview: History: Post-op Assessment: Post op fluid shifts Plan: IVF replacement prn Pain, postoperative, acute 09/30/202110/04 Overview: History: 09/30/2021: CABG x 3, MAZE, LAAC Assessment: Voices adequate pain control. 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 Grade I airway. Assessment: Bibasilar atelectasis on CXR. Adequate oxygenation on 2L NC. Plan: BPH, OOB, and pep therapy. Wean O2 as able. Hypovolemia 09/30/2021 10/04/2021 Overview: History: Post-op Assessment: Post op fluid shifts Plan: IVF replacement prn Pain, postoperative, acute 09/30/202110/04 Overview: History: 09/30/2021: CABG x 3, MAZE, LAAC Assessment: Voices adequate pain control. 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 Grade I airway. Assessment: Bibasilar atelectasis on CXR. Adequate oxygenation on 2L NC. Plan: BPH, OOB, and pep therapy. Wean O2 as able. Hypovolemia 09/30/2021 10/04/2021 Overview: History: Post-op Assessment: Post op fluid shifts Plan: IVF replacement prn Pain, postoperative, acute 09/30/202110/04 Overview: History: 09/30/2021: CABG x 3, MAZE, LAAC Assessment: Voices adequate pain control. 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 Grade I airway. Assessment: Bibasilar atelectasis on CXR. Adequate oxygenation on 2L NC. Plan: BPH, OOB, and pep therapy. Wean O2 as able. Hypovolemia 09/30/2021 10/04/2021 Overview: History: Post-op Assessment: Post op fluid shifts Plan: IVF replacement prn Pain, postoperative, acute 09/30/202110/04 Overview: History: 09/30/2021: CABG x 3, MAZE, LAAC Assessment: Voices adequate pain control. Plan: Scheduled Tylenol, lidocaine patches, and PRN oxycodone Junctional bradycardia 09/30/2021 Overview: See paroxysmal atrial fibrillation Coronary artery disease invo lving [place] coronary artery of [place] heart without angina pectoris 08/27/2021 09/30/2021 documented as of this encounter (statuses as of 12/09/2021) [facility] History of Past illness Narrative* Problem Noted Date Resolved Date Hypervolemia 10/01/2021 10/04/2021 Overview: History: Postop Assessment:Net negative 2 L x 24 hours, on 40mg Qid with rising BUN, drop in creatinine & improvement in NA Plan: Reduce Lasix 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 Grade I airway. Assessment: Bibasilar atelectasis on CXR. Adequate oxygenation on 2L NC. Plan: BPH, OOB, and pep therapy. Wean O2 as able. Hypovolemia 09/30/2021 10/04/2021 Overview: History: Post-op Assessment: Post op fluid shifts Plan: IVF replacement prn Pain, postoperative, acute 09/30/202110/04 Overview: History: 09/30/2021: CABG x 3, MAZE, LAAC Assessment: Voices adequate pain control. 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 Grade I airway. Assessment: Bibasilar atelectasis on CXR. Adequate oxygenation on 2L NC. Plan: BPH, OOB, and pep therapy. Wean O2 as able. Hypovolemia 09/30/2021 10/04/2021 Overview: History: Post-op Assessment: Post op fluid shifts Plan: IVF replacement prn Pain, postoperative, acute 09/30/202110/04 Overview: History: 09/30/2021: CABG x 3, MAZE, LAAC Assessment: Voices adequate pain control. 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 Grade I airway. Assessment: Bibasilar atelectasis on CXR. Adequate oxygenation on 2L NC. Plan: BPH, OOB, and pep therapy. Wean O2 as able. Hypovolemia 09/30/2021 10/04/2021 Overview: History: Post-op Assessment: Post op fluid shifts Plan: IVF replacement prn Pain, postoperative, acute 09/30/202110/04 Overview: History: 09/30/2021: CABG x 3, MAZE, LAAC Assessment: Voices adequate pain control. 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 Grade I airway. Assessment: Bibasilar atelectasis on CXR. Adequate oxygenation on 2L NC. Plan: BPH, OOB, and pep therapy. Wean O2 as able. Hypovolemia 09/30/2021 10/04/2021 Overview: History: Post-op Assessment: Post op fluid shifts Plan: IVF replacement prn Pain, postoperative, acute 09/30/202110/04 Overview: History: 09/30/2021: CABG x 3, MAZE, LAAC Assessment: Voices adequate pain control. 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 Grade I airway. Assessment: Bibasilar atelectasis on CXR. Adequate oxygenation on 2L NC. Plan: BPH, OOB, and pep therapy. Wean O2 as able. Hypovolemia 09/30/2021 10/04/2021 Overview: History: Post-op Assessment: Post op fluid shifts Plan: IVF replacement prn Pain, postoperative, acute 09/30/202110/04 Overview: History: 09/30/2021: CABG x 3, MAZE, LAAC Assessment: Voices adequate pain control. Plan: Scheduled Tylenol, lidocaine patches, and PRN oxycodone Junctional bradycardia 09/30/2021 Overview: See paroxysmal atrial fibrillation Coronary artery disease invo lving [place] coronary artery of [place] heart without angina pectoris 08/27/2021 09/30/2021 documented as of this encounter (statuses as of 01/22/2022) [facility] History of Past illness Narrative* Problem Noted Date Resolved Date Hypervolemia 10/01/2021 10/04/2021 Overview: History: Postop Assessment:Net negative 2 L x 24 hours, on 40mg Qid with rising BUN, drop in creatinine & improvement in NA Plan: Reduce Lasix 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 Grade I airway. Assessment: Bibasilar atelectasis on CXR. Adequate oxygenation on 2L NC. Plan: BPH, OOB, and pep therapy. Wean O2 as able. Hypovolemia 09/30/2021 10/04/2021 Overview: History: Post-op Assessment: Post op fluid shifts Plan: IVF replacement prn Pain, postoperative, acute 09/30/202110/04 Overview: History: 09/30/2021: CABG x 3, MAZE, LAAC Assessment: Voices adequate pain control. 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 Grade I airway. Assessment: Bibasilar atelectasis on CXR. Adequate oxygenation on 2L NC. Plan: BPH, OOB, and pep therapy. Wean O2 as able. Hypovolemia 09/30/2021 10/04/2021 Overview: History: Post-op Assessment: Post op fluid shifts Plan: IVF replacement prn Pain, postoperative, acute 09/30/202110/042 Overview: History: 09/30/2021: CABG x 3, MAZE, LAAC Assessment: Voices adequate pain control. Plan: Scheduled Tylenol, lidocaine patches, and PRN oxycodone Junctional bradycardia 09/30/2021 Overview: See paroxysmal atrial fibrillation Coronary artery disease invo lving [place] coronary artery of [place] heart without angina pectoris 08/27/2021 09/30/2021 documented as of this encounter (statuses as of 02/09/2022) [facility] History of Past illness Narrative* Problem Noted Date Resolved Date Hypervolemia 10/01/2021 10/04/2021 Overview: History: Postop Assessment:Net negative 2 L x 24 hours, on 40mg Qid with rising BUN, drop in creatinine & improvement in NA Plan: Reduce Lasix 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 Grade I airway. Assessment: Bibasilar atelectasis on CXR. Adequate oxygenation on 2L NC. Plan: BPH, OOB, and pep therapy. Wean O2 as able. Hypovolemia 09/30/2021 10/04/2021 Overview: History: Post-op Assessment: Post op fluid shifts Plan: IVF replacement prn Pain, postoperative, acute 09/30/202110/04 Overview: History: 09/30/2021: CABG x 3, MAZE, LAAC Assessment: Voices adequate pain control. Plan: Scheduled Tylenol, lidocaine patches, and PRN oxycodone Junctional bradycardia 09/30/2021 Overview: See paroxysmal atrial fibrillation Coronary artery disease invo lving [place] coronary artery of [place] heart without angina pectoris 08/27/2021 09/30/2021 documented as of this encounter (statuses as of 03/05/2022) [facility] History of Past illness Narrative* Problem Noted Date Resolved Date Hypervolemia 10/01/2021 10/04/2021 Overview: History: Postop Assessment:Net negative 2 L x 24 hours, on 40mg Qid with rising BUN, drop in creatinine & improvement in NA Plan: Reduce Lasix 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 Grade I airway. Assessment: Bibasilar atelectasis on CXR. Adequate oxygenation on 2L NC. Plan: BPH, OOB, and pep therapy. Wean O2 as able. Hypovolemia 09/30/2021 10/04/2021 Overview: History: Post-op Assessment: Post op fluid shifts Plan: IVF replacement prn Pain, postoperative, acute 09/30/202110/04 Overview: History: 09/30/2021: CABG x 3, MAZE, LAAC Assessment: Voices adequate pain control. Plan: Scheduled Tylenol, lidocaine patches, and PRN oxycodone Junctional bradycardia 09/30/2021 Overview: See paroxysmal atrial fibrillation Coronary artery disease invo lving [place] coronary artery of [place] heart without angina pectoris 08/27/2021 09/30/2021 documented as of this encounter (statuses as of 03/09/2022) [facility] History of Past illness Narrative* Problem Noted Date Resolved Date Hypervolemia 10/01/2021 10/04/2021 Overview: History: Postop Assessment:Net negative 2 L x 24 hours, on 40mg Qid with rising BUN, drop in creatinine & improvement in NA Plan: Reduce Lasix 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 Grade I airway. Assessment: Bibasilar atelectasis on CXR. Adequate oxygenation on 2L NC. Plan: BPH, OOB, and pep therapy. Wean O2 as able. Hypovolemia 09/30/2021 10/04/2021 Overview: History: Post-op Assessment: Post op fluid shifts Plan: IVF replacement prn Pain, postoperative, acute 09/30/202110/04 Overview: History: 09/30/2021: CABG x 3, MAZE, LAAC Assessment: Voices adequate pain control. Plan: Scheduled Tylenol, lidocaine patches, and PRN oxycodone Junctional bradycardia 09/30/2021 Overview: See paroxysmal atrial fibrillation Coronary artery disease invo lving [place] coronary artery of [place] heart without angina pectoris 08/27/2021 09/30/2021 documented as of this encounter (statuses as of 04/06/2022) [facility] History of Past illness Narrative* Problem Noted Date Resolved Date Hypervolemia 10/01/2021 10/04/2021 Overview: History: Postop Assessment:Net negative 2 L x 24 hours, on 40mg Qid with rising BUN, drop in creatinine & improvement in NA Plan: Reduce Lasix 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 Grade I airway. Assessment: Bibasilar atelectasis on CXR. Adequate oxygenation on 2L NC. Plan: BPH, OOB, and pep therapy. Wean O2 as able. Hypovolemia 09/30/2021 10/04/2021 Overview: History: Post-op Assessment: Post op fluid shifts Plan: IVF replacement prn Pain, postoperative, acute 09/30/202110/04 Overview: History: 09/30/2021: CABG x 3, MAZE, LAAC Assessment: Voices adequate pain control. Plan: Scheduled Tylenol, lidocaine patches, and PRN oxycodone Junctional bradycardia 09/30/2021 Overview: See paroxysmal atrial fibrillation Coronary artery disease invo lving [place] coronary artery of [place] heart without angina pectoris 08/27/2021 09/30/2021 documented as of this encounter (statuses as of 04/16/2022) [facility] History of Past illness Narrative* Problem Noted Date Resolved Date Hypervolemia 10/01/2021 10/04/2021 Overview: History: Postop Assessment:Net negative 2 L x 24 hours, on 40mg Qid with rising BUN, drop in creatinine & improvement in NA Plan: Reduce Lasix 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 Grade I airway. Assessment: Bibasilar atelectasis on CXR. Adequate oxygenation on 2L NC. Plan: BPH, OOB, and pep therapy. Wean O2 as able. Hypovolemia 09/30/2021 10/04/2021 Overview: History: Post-op Assessment: Post op fluid shifts Plan: IVF replacement prn Pain, postoperative, acute 09/30/202110/04 Overview: History: 09/30/2021: CABG x 3, MAZE, LAAC Assessment: Voices adequate pain control. Plan: Scheduled Tylenol, lidocaine patches, and PRN oxycodone Junctional bradycardia 09/30/2021 Overview: See paroxysmal atrial fibrillation Coronary artery disease invo lving [place] coronary artery of [place] heart without angina pectoris 08/27/2021 09/30/2021 documented as of this encounter (statuses as of 04/22/2022) [facility] History of Past illness Narrative* Problem Noted Date Resolved Date Hypervolemia 10/01/2021 10/04/2021 Overview: History: Postop Assessment:Net negative 2 L x 24 hours, on 40mg Qid with rising BUN, drop in creatinine & improvement in NA Plan: Reduce Lasix 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 Grade I airway. Assessment: Bibasilar atelectasis on CXR. Adequate oxygenation on 2L NC. Plan: BPH, OOB, and pep therapy. Wean O2 as able. Hypovolemia 09/30/2021 10/04/2021 Overview: History: Post-op Assessment: Post op fluid shifts Plan: IVF replacement prn Pain, postoperative, acute 09/30/202110/04 Overview: History: 09/30/2021: CABG x 3, MAZE, LAAC Assessment: Voices adequate pain control. 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 Grade I airway. Assessment: Bibasilar atelectasis on CXR. Adequate oxygenation on 2L NC. Plan: BPH, OOB, and pep therapy. Wean O2 as able. Hypovolemia 09/30/2021 10/04/2021 Overview: History: Post-op Assessment: Post op fluid shifts Plan: IVF replacement prn Pain, postoperative, acute 09/30/202110/04 Overview: History: 09/30/2021: CABG x 3, MAZE, LAAC Assessment: Voices adequate pain control. Plan: Scheduled Tylenol, lidocaine patches, and PRN oxycodone Junctional bradycardia 09/30/2021 Overview: See paroxysmal atrial fibrillation Coronary artery disease invo lving [place] coronary artery of [place] heart without angina pectoris 08/27/2021 09/30/2021 documented as of this encounter (statuses as of 04/29/2022) [facility] History of Past illness Narrative* Problem Noted Date Resolved Date Hypervolemia 10/01/2021 10/04/2021 Overview: History: Postop Assessment:Net negative 2 L x 24 hours, on 40mg Qid with rising BUN, drop in creatinine & improvement in NA Plan: Reduce Lasix 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 Grade I airway. Assessment: Bibasilar atelectasis on CXR. Adequate oxygenation on 2L NC. Plan: BPH, OOB, and pep therapy. Wean O2 as able. Hypovolemia 09/30/2021 10/04/2021 Overview: History: Post-op Assessment: Post op fluid shifts Plan: IVF replacement prn Pain, postoperative, acute 09/30/202110/04 Overview: History: 09/30/2021: CABG x 3, MAZE, LAAC Assessment: Voices adequate pain control. 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 Grade I airway. Assessment: Bibasilar atelectasis on CXR. Adequate oxygenation on 2L NC. Plan: BPH, OOB, and pep therapy. Wean O2 as able. Hypovolemia 09/30/2021 10/04/2021 Overview: History: Post-op Assessment: Post op fluid shifts Plan: IVF replacement prn Pain, postoperative, acute 09/30/202110/04 Overview: History: 09/30/2021: CABG x 3, MAZE, LAAC Assessment: Voices adequate pain control. Plan: Scheduled Tylenol, lidocaine patches, and PRN oxycodone Junctional bradycardia 09/30/2021 2 Overview: See paroxysmal atrial fibrillation Coronary artery disease invo lving [place] coronary artery of [place] heart without angina pectoris 08/27/2021 09/30/2021 documented as of this encounter (statuses as of 05/21/2022) [facility] History of Past illness Narrative* Problem Noted Date Resolved Date Hypervolemia 10/01/2021 10/04/2021 Overview: History: Postop Assessment:Net negative 2 L x 24 hours, on 40mg Qid with rising BUN, drop in creatinine & improvement in NA Plan: Reduce Lasix 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 Grade I airway. Assessment: Bibasilar atelectasis on CXR. Adequate oxygenation on 2L NC. Plan: BPH, OOB, and pep therapy. Wean O2 as able. Hypovolemia 09/30/2021 10/04/2021 Overview: History: Post-op Assessment: Post op fluid shifts Plan: IVF replacement prn Pain, postoperative, acute 09/30/202110/04 Overview: History: 09/30/2021: CABG x 3, MAZE, LAAC Assessment: Voices adequate pain control. 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 Grade I airway. Assessment: Bibasilar atelectasis on CXR. Adequate oxygenation on 2L NC. Plan: BPH, OOB, and pep therapy. Wean O2 as able. Hypovolemia 09/30/2021 10/04/2021 Overview: History: Post-op Assessment: Post op fluid shifts Plan: IVF replacement prn Pain, postoperative, acute 09/30/202110/04 Overview: History: 09/30/2021: CABG x 3, MAZE, LAAC Assessment: Voices adequate pain control. 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 Grade I airway. Assessment: Bibasilar atelectasis on CXR. Adequate oxygenation on 2L NC. Plan: BPH, OOB, and pep therapy. Wean O2 as able. Hypovolemia 09/30/2021 10/04/2021 Overview: History: Post-op Assessment: Post op fluid shifts Plan: IVF replacement prn Pain, postoperative, acute 09/30/202110/04 Overview: History: 09/30/2021: CABG x 3, MAZE, LAAC Assessment: Voices adequate pain control. 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 Grade I airway. Assessment: Bibasilar atelectasis on CXR. Adequate oxygenation on 2L NC. Plan: BPH, OOB, and pep therapy. Wean O2 as able. Hypovolemia 09/30/2021 10/04/2021 Overview: History: Post-op Assessment: Post op fluid shifts Plan: IVF replacement prn Pain, postoperative, acute 09/30/202110/04 Overview: History: 09/30/2021: CABG x 3, MAZE, LAAC Assessment: Voices adequate pain control. Plan: Scheduled Tylenol, lidocaine patches, and PRN oxycodone Junctional bradycardia 09/30/2021 Overview: See paroxysmal atrial fibrillation Coronary artery disease invo lving [place] coronary artery of [place] heart without angina pectoris 08/27/2021 09/30/2021 documented as of this encounter (statuses as of 06/05/2022) [facility] History of Past illness Narrative* Problem Noted Date Resolved Date Hypervolemia 10/01/2021 10/04/2021 Overview: History: Postop Assessment:Net negative 2 L x 24 hours, on 40mg Qid with rising BUN, drop in creatinine & improvement in NA Plan: Reduce Lasix 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 Grade I airway. Assessment: Bibasilar atelectasis on CXR. Adequate oxygenation on 2L NC. Plan: BPH, OOB, and pep therapy. Wean O2 as able. Hypovolemia 09/30/2021 10/04/2021 Overview: History: Post-op Assessment: Post op fluid shifts Plan: IVF replacement prn Pain, postoperative, acute 09/30/202110/04 Overview: History: 09/30/2021: CABG x 3, MAZE, LAAC Assessment: Voices adequate pain control. Plan: Scheduled Tylenol, lidocaine patches, and PRN oxycodone Junctional bradycardia 09/30/2021 Overview: See paroxysmal atrial fibrillation Coronary artery disease invo lving [place] coronary artery of [place] heart without angina pectoris 08/27/2021 09/30/2021 documented as of this encounter (statuses as of 06/10/2022) [facility] History of Past illness Narrative* Problem Noted Date Resolved Date Hypervolemia 10/01/2021 10/04/2021 Overview: History: Postop Assessment:Net negative 2 L x 24 hours, on 40mg Qid with rising BUN, drop in creatinine & improvement in NA Plan: Reduce Lasix 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 Grade I airway. Assessment: Bibasilar atelectasis on CXR. Adequate oxygenation on 2L NC. Plan: BPH, OOB, and pep therapy. Wean O2 as able. Hypovolemia 09/30/2021 10/04/2021 Overview: History: Post-op Assessment: Post op fluid shifts Plan: IVF replacement prn Pain, postoperative, acute 09/30/202110/04 Overview: History: 09/30/2021: CABG x 3, MAZE, LAAC Assessment: Voices adequate pain control. Plan: Scheduled Tylenol, lidocaine patches, and PRN oxycodone Junctional bradycardia 09/30/2021 Overview: See paroxysmal atrial fibrillation Coronary artery disease invo lving [place] coronary artery of [place] heart without angina pectoris 08/27/2021 09/30/2021 documented as of this encounter (statuses as of 06/12/2022) [facility] History of Past illness Narrative* Problem Noted Date Resolved Date Hypervolemia 10/01/2021 10/04/2021 Overview: History: Postop Assessment:Net negative 2 L x 24 hours, on 40mg Qid with rising BUN, drop in creatinine & improvement in NA Plan: Reduce Lasix 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 Grade I airway. Assessment: Bibasilar atelectasis on CXR. Adequate oxygenation on 2L NC. Plan: BPH, OOB, and pep therapy. Wean O2 as able. Hypovolemia 09/30/2021 10/04/2021 Overview: History: Post-op Assessment: Post op fluid shifts Plan: IVF replacement prn Pain, postoperative, acute 09/30/202110/04 Overview: History: 09/30/2021: CABG x 3, MAZE, LAAC Assessment: Voices adequate pain control. 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 Grade I airway. Assessment: Bibasilar atelectasis on CXR. Adequate oxygenation on 2L NC. Plan: BPH, OOB, and pep therapy. Wean O2 as able. Hypovolemia 09/30/2021 10/04/2021 Overview: History: Post-op Assessment: Post op fluid shifts Plan: IVF replacement prn Pain, postoperative, acute 09/30/202110/04 Overview: History: 09/30/2021: CABG x 3, MAZE, LAAC Assessment: Voices adequate pain control. 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 Grade I airway. Assessment: Bibasilar atelectasis on CXR. Adequate oxygenation on 2L NC. Plan: BPH, OOB, and pep therapy. Wean O2 as able. Hypovolemia 09/30/2021 10/04/2021 Overview: History: Post-op Assessment: Post op fluid shifts Plan: IVF replacement prn Pain, postoperative, acute 09/30/202110/04 Overview: History: 09/30/2021: CABG x 3, MAZE, LAAC Assessment: Voices adequate pain control. 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 Grade I airway. Assessment: Bibasilar atelectasis on CXR. Adequate oxygenation on 2L NC. Plan: BPH, OOB, and pep therapy. Wean O2 as able. Hypovolemia 09/30/2021 10/04/2021 Overview: History: Post-op Assessment: Post op fluid shifts Plan: IVF replacement prn Pain, postoperative, acute 09/30/202110/04 Overview: History: 09/30/2021: CABG x 3, MAZE, LAAC Assessment: Voices adequate pain control. Plan: Scheduled Tylenol, lidocaine patches, and PRN oxycodone Junctional bradycardia 09/30/2021 Overview: See paroxysmal atrial fibrillation Coronary artery disease invo lving [place] coronary artery of [place] heart without angina pectoris 08/27/2021 09/30/2021 documented as of this encounter (statuses as of 08/14/2022) [facility] History of Past illness Narrative* Problem Noted Date Resolved Date Hypervolemia 10/01/2021 10/04/2021 Overview: History: Postop Assessment:Net negative 2 L x 24 hours, on 40mg Qid with rising BUN, drop in creatinine & improvement in NA Plan: Reduce Lasix 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 Grade I airway. Assessment: Bibasilar atelectasis on CXR. Adequate oxygenation on 2L NC. Plan: BPH, OOB, and pep therapy. Wean O2 as able. Hypovolemia 09/30/2021 10/04/2021 Overview: History: Post-op Assessment: Post op fluid shifts Plan: IVF replacement prn Pain, postoperative, acute 09/30/202110/04 Overview: History: 09/30/2021: CABG x 3, MAZE, LAAC Assessment: Voices adequate pain control. 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 Grade I airway. Assessment: Bibasilar atelectasis on CXR. Adequate oxygenation on 2L NC. Plan: BPH, OOB, and pep therapy. Wean O2 as able. Hypovolemia 09/30/2021 10/04/2021 Overview: History: Post-op Assessment: Post op fluid shifts Plan: IVF replacement prn Pain, postoperative, acute 09/30/202110/04 Overview: History: 09/30/2021: CABG x 3, MAZE, LAAC Assessment: Voices adequate pain control. Plan: Scheduled Tylenol, lidocaine patches, and PRN oxycodone Junctional bradycardia 09/30/2021 Overview: See paroxysmal atrial fibrillation Coronary artery disease invo lving [place] coronary artery of [place] heart without angina pectoris 08/27/2021 09/30/2021 documented as of this encounter (statuses as of 08/18/2022) [facility] History of Past illness Narrative* Problem Noted Date Resolved Date Hypervolemia 10/01/2021 10/04/2021 Overview: History: Postop Assessment:Net negative 2 L x 24 hours, on 40mg Qid with rising BUN, drop in creatinine & improvement in NA Plan: Reduce Lasix 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 Grade I airway. Assessment: Bibasilar atelectasis on CXR. Adequate oxygenation on 2L NC. Plan: BPH, OOB, and pep therapy. Wean O2 as able. Hypovolemia 09/30/2021 10/04/2021 Overview: History: Post-op Assessment: Post op fluid shifts Plan: IVF replacement prn Pain, postoperative, acute 09/30/202110/04 Overview: History: 09/30/2021: CABG x 3, MAZE, LAAC Assessment: Voices adequate pain control. Plan: Scheduled Tylenol, lidocaine patches, and PRN oxycodone Junctional bradycardia 09/30/2021 Overview: See paroxysmal atrial fibrillation Coronary artery disease invo lving [place] coronary artery of [place] heart without angina pectoris 08/27/2021 09/30/2021 documented as of this encounter (statuses as of 08/18/2022) [facility] History of Past illness Narrative* Problem Noted Date Resolved Date Hypervolemia 10/01/2021 10/04/2021 Overview: History: Postop Assessment:Net negative 2 L x 24 hours, on 40mg Qid with rising BUN, drop in creatinine & improvement in NA Plan: Reduce Lasix 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 Grade I airway. Assessment: Bibasilar atelectasis on CXR. Adequate oxygenation on 2L NC. Plan: BPH, OOB, and pep therapy. Wean O2 as able. Hypovolemia 09/30/2021 10/04/2021 Overview: History: Post-op Assessment: Post op fluid shifts Plan: IVF replacement prn Pain, postoperative, acute 09/30/202110/04 Overview: History: 09/30/2021: CABG x 3, MAZE, LAAC Assessment: Voices adequate pain control. Plan: Scheduled Tylenol, lidocaine patches, and PRN oxycodone Junctional bradycardia 09/30/2021 Overview: See paroxysmal atrial fibrillation Coronary artery disease invo lving [place] coronary artery of [place] heart without angina pectoris 08/27/2021 09/30/2021 documented as of this encounter (statuses as of 08/24/2022) [facility] History of Past illness Narrative* Problem Noted Date Resolved Date Hypervolemia 10/01/2021 10/04/2021 Overview: History: Postop Assessment:Net negative 2 L x 24 hours, on 40mg Qid with rising BUN, drop in creatinine & improvement in NA Plan: Reduce Lasix 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 Grade I airway. Assessment: Bibasilar atelectasis on CXR. Adequate oxygenation on 2L NC. Plan: BPH, OOB, and pep therapy. Wean O2 as able. Hypovolemia 09/30/2021 10/04/2021 Overview: History: Post-op Assessment: Post op fluid shifts Plan: IVF replacement prn Pain, postoperative, acute 09/30/202110/04 Overview: History: 09/30/2021: CABG x 3, MAZE, LAAC Assessment: Voices adequate pain control. Plan: Scheduled Tylenol, lidocaine patches, and PRN oxycodone Junctional bradycardia 09/30/2021 Overview: See paroxysmal atrial fibrillation Coronary artery disease invo lving [place] coronary artery of [place] heart without angina pectoris 08/27/2021 09/30/2021 documented as of this encounter (statuses as of 08/24/2022) [facility] History of Past illness Narrative* Problem Noted Date Resolved Date Hypervolemia 10/01/2021 10/04/2021 Overview: History: Postop Assessment:Net negative 2 L x 24 hours, on 40mg Qid with rising BUN, drop in creatinine & improvement in NA Plan: Reduce Lasix 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 Grade I airway. Assessment: Bibasilar atelectasis on CXR. Adequate oxygenation on 2L NC. Plan: BPH, OOB, and pep therapy. Wean O2 as able. Hypovolemia 09/30/2021 10/04/2021 Overview: History: Post-op Assessment: Post op fluid shifts Plan: IVF replacement prn Pain, postoperative, acute 09/30/202110/04 Overview: History: 09/30/2021: CABG x 3, MAZE, LAAC Assessment: Voices adequate pain control. Plan: Scheduled Tylenol, lidocaine patches, and PRN oxycodone Junctional bradycardia 09/30/2021 Overview: See paroxysmal atrial fibrillation Coronary artery disease invo lving [place] coronary artery of [place] heart without angina pectoris 08/27/2021 09/30/2021 documented as of this encounter (statuses as of 08/25/2022) [facility] History of Past illness Narrative* Problem Noted Date Resolved Date Hypervolemia 10/01/2021 10/04/2021 Overview: History: Postop Assessment:Net negative 2 L x 24 hours, on 40mg Qid with rising BUN, drop in creatinine & improvement in NA Plan: Reduce Lasix 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 Grade I airway. Assessment: Bibasilar atelectasis on CXR. Adequate oxygenation on 2L NC. Plan: BPH, OOB, and pep therapy. Wean O2 as able. Hypovolemia 09/30/2021 10/04/2021 Overview: History: Post-op Assessment: Post op fluid shifts Plan: IVF replacement prn Pain, postoperative, acute 09/30/202110/04 Overview: History: 09/30/2021: CABG x 3, MAZE, LAAC Assessment: Voices adequate pain control. Plan: Scheduled Tylenol, lidocaine patches, and PRN oxycodone Junctional bradycardia 09/30/2021 Overview: See paroxysmal atrial fibrillation Coronary artery disease invo lving [place] coronary artery of [place] heart without angina pectoris 08/27/2021 09/30/2021 documented as of this encounter (statuses as of 08/26/2022) [facility] History of Past illness Narrative* Problem Noted Date Resolved Date Hypervolemia 10/01/2021 10/04/2021 Overview: History: Postop Assessment:Net negative 2 L x 24 hours, on 40mg Qid with rising BUN, drop in creatinine & improvement in NA Plan: Reduce Lasix 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 Grade I airway. Assessment: Bibasilar atelectasis on CXR. Adequate oxygenation on 2L NC. Plan: BPH, OOB, and pep therapy. Wean O2 as able. Hypovolemia 09/30/2021 10/04/2021 Overview: History: Post-op Assessment: Post op fluid shifts Plan: IVF replacement prn Pain, postoperative, acute 09/30/202110/04 Overview: History: 09/30/2021: CABG x 3, MAZE, LAAC Assessment: Voices adequate pain control. Plan: Scheduled Tylenol, lidocaine patches, and PRN oxycodone Junctional bradycardia 09/30/2021 Overview: See paroxysmal atrial fibrillation Coronary artery disease invo lving [place] coronary artery of [place] heart without angina pectoris 08/27/2021 09/30/2021 documented as of this encounter (statuses as of 08/27/2022) [facility] History of Past illness Narrative* Problem Noted Date Resolved Date Hypervolemia 10/01/2021 10/04/2021 Overview: History: Postop Assessment:Net negative 2 L x 24 hours, on 40mg Qid with rising BUN, drop in creatinine & improvement in NA Plan: Reduce Lasix 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 Grade I airway. Assessment: Bibasilar atelectasis on CXR. Adequate oxygenation on 2L NC. Plan: BPH, OOB, and pep therapy. Wean O2 as able. Hypovolemia 09/30/2021 10/04/2021 Overview: History: Post-op Assessment: Post op fluid shifts Plan: IVF replacement prn Pain, postoperative, acute 09/30/202110/04 Overview: History: 09/30/2021: CABG x 3, MAZE, LAAC Assessment: Voices adequate pain control. Plan: Scheduled Tylenol, lidocaine patches, and PRN oxycodone Junctional bradycardia 09/30/2021 Overview: See paroxysmal atrial fibrillation Coronary artery disease invo lving [place] coronary artery of [place] heart without angina pectoris 08/27/2021 09/30/2021 documented as of this encounter (statuses as of 08/28/2022) [facility] History of Past illness Narrative* Problem Noted Date Resolved Date Hypervolemia 10/01/2021 10/04/2021 Overview: History: Postop Assessment:Net negative 2 L x 24 hours, on 40mg Qid with rising BUN, drop in creatinine & improvement in NA Plan: Reduce Lasix 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 Grade I airway. Assessment: Bibasilar atelectasis on CXR. Adequate oxygenation on 2L NC. Plan: BPH, OOB, and pep therapy. Wean O2 as able. Hypovolemia 09/30/2021 10/04/2021 Overview: History: Post-op Assessment: Post op fluid shifts Plan: IVF replacement prn Pain, postoperative, acute 09/30/202110/04 Overview: History: 09/30/2021: CABG x 3, MAZE, LAAC Assessment: Voices adequate pain control. Plan: Scheduled Tylenol, lidocaine patches, and PRN oxycodone Junctional bradycardia 09/30/2021 Overview: See paroxysmal atrial fibrillation Coronary artery disease invo lving [place] coronary artery of [place] heart without angina pectoris 08/27/2021 09/30/2021 documented as of this encounter (statuses as of 09/02/2022) [facility] History of Past illness Narrative* Problem Noted Date Resolved Date Hypervolemia 10/01/2021 10/04/2021 Overview: History: Postop Assessment:Net negative 2 L x 24 hours, on 40mg Qid with rising BUN, drop in creatinine & improvement in NA Plan: Reduce Lasix 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 Grade I airway. Assessment: Bibasilar atelectasis on CXR. Adequate oxygenation on 2L NC. Plan: BPH, OOB, and pep therapy. Wean O2 as able. Hypovolemia 09/30/2021 10/04/2021 Overview: History: Post-op Assessment: Post op fluid shifts Plan: IVF replacement prn Pain, postoperative, acute 09/30/202110/04 Overview: History: 09/30/2021: CABG x 3, MAZE, LAAC Assessment: Voices adequate pain control. Plan: Scheduled Tylenol, lidocaine patches, and PRN oxycodone Junctional bradycardia 09/30/2021 Overview: See paroxysmal atrial fibrillation Coronary artery disease invo lving [place] coronary artery of [place] heart without angina pectoris 08/27/2021 09/30/2021 documented as of this encounter (statuses as of 09/03/2022) [facility] History of Past illness Narrative* Problem Noted Date Resolved Date Hypervolemia 10/01/2021 10/04/2021 Overview: History: Postop Assessment:Net negative 2 L x 24 hours, on 40mg Qid with rising BUN, drop in creatinine & improvement in NA Plan: Reduce Lasix 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 Grade I airway. Assessment: Bibasilar atelectasis on CXR. Adequate oxygenation on 2L NC. Plan: BPH, OOB, and pep therapy. Wean O2 as able. Hypovolemia 09/30/2021 10/04/2021 Overview: History: Post-op Assessment: Post op fluid shifts Plan: IVF replacement prn Pain, postoperative, acute 09/30/202110/04 Overview: History: 09/30/2021: CABG x 3, MAZE, LAAC Assessment: Voices adequate pain control. Plan: Scheduled Tylenol, lidocaine patches, and PRN oxycodone Junctional bradycardia 09/30/2021 Overview: See paroxysmal atrial fibrillation Coronary artery disease invo lving [place] coronary artery of [place] heart without angina pectoris 08/27/2021 09/30/2021 documented as of this encounter (statuses as of 09/07/2022) [facility] History of Past illness Narrative* Problem Noted Date Resolved Date Hypervolemia 10/01/2021 10/04/2021 Overview: History: Postop Assessment:Net negative 2 L x 24 hours, on 40mg Qid with rising BUN, drop in creatinine & improvement in NA Plan: Reduce Lasix 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 Grade I airway. Assessment: Bibasilar atelectasis on CXR. Adequate oxygenation on 2L NC. Plan: BPH, OOB, and pep therapy. Wean O2 as able. Hypovolemia 09/30/2021 10/04/2021 Overview: History: Post-op Assessment: Post op fluid shifts Plan: IVF replacement prn Pain, postoperative, acute 09/30/202110/04 Overview: History: 09/30/2021: CABG x 3, MAZE, LAAC Assessment: Voices adequate pain control. Plan: Scheduled Tylenol, lidocaine patches, and PRN oxycodone Junctional bradycardia 09/30/2021 Overview: See paroxysmal atrial fibrillation Coronary artery disease invo lving [place] coronary artery of [place] heart without angina pectoris 08/27/2021 09/30/2021 documented as of this encounter (statuses as of 09/09/2022) [facility] History of Past illness Narrative* Problem Noted Date Resolved Date Hypervolemia 10/01/2021 10/04/2021 Overview: History: Postop Assessment:Net negative 2 L x 24 hours, on 40mg Qid with rising BUN, drop in creatinine & improvement in NA Plan: Reduce Lasix 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 Grade I airway. Assessment: Bibasilar atelectasis on CXR. Adequate oxygenation on 2L NC. Plan: BPH, OOB, and pep therapy. Wean O2 as able. Hypovolemia 09/30/2021 10/04/2021 Overview: History: Post-op Assessment: Post op fluid shifts Plan: IVF replacement prn Pain, postoperative, acute 09/30/202110/04 Overview: History: 09/30/2021: CABG x 3, MAZE, LAAC Assessment: Voices adequate pain control. Plan: Scheduled Tylenol, lidocaine patches, and PRN oxycodone Junctional bradycardia 09/30/2021 Overview: See paroxysmal atrial fibrillation Coronary artery disease invo lving [place] coronary artery of [place] heart without angina pectoris 08/27/2021 09/30/2021 documented as of this encounter (statuses as of 09/10/2022) [facility] History of Past illness Narrative* Problem Noted Date Resolved Date Hypervolemia 10/01/2021 10/04/2021 Overview: History: Postop Assessment:Net negative 2 L x 24 hours, on 40mg Qid with rising BUN, drop in creatinine & improvement in NA Plan: Reduce Lasix 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 Grade I airway. Assessment: Bibasilar atelectasis on CXR. Adequate oxygenation on 2L NC. Plan: BPH, OOB, and pep therapy. Wean O2 as able. Hypovolemia 09/30/2021 10/04/2021 Overview: History: Post-op Assessment: Post op fluid shifts Plan: IVF replacement prn Pain, postoperative, acute 09/30/202110/04 Overview: History: 09/30/2021: CABG x 3, MAZE, LAAC Assessment: Voices adequate pain control. Plan: Scheduled Tylenol, lidocaine patches, and PRN oxycodone Junctional bradycardia 09/30/2021 Overview: See paroxysmal atrial fibrillation Coronary artery disease invo lving [place] coronary artery of [place] heart without angina pectoris 08/27/2021 09/30/2021 documented as of this encounter (statuses as of 09/13/2022) [facility] History of Past illness Narrative* Problem Noted Date Resolved Date Hypervolemia 10/01/2021 10/04/2021 Overview: History: Postop Assessment:Net negative 2 L x 24 hours, on 40mg Qid with rising BUN, drop in creatinine & improvement in NA Plan: Reduce Lasix 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 Grade I airway. Assessment: Bibasilar atelectasis on CXR. Adequate oxygenation on 2L NC. Plan: BPH, OOB, and pep therapy. Wean O2 as able. Hypovolemia 09/30/2021 10/04/2021 Overview: History: Post-op Assessment: Post op fluid shifts Plan: IVF replacement prn Pain, postoperative, acute 09/30/202110/04 Overview: History: 09/30/2021: CABG x 3, MAZE, LAAC Assessment: Voices adequate pain control. Plan: Scheduled Tylenol, lidocaine patches, and PRN oxycodone Junctional bradycardia 09/30/2021 Overview: See paroxysmal atrial fibrillation Coronary artery disease invo lving [place] coronary artery of [place] heart without angina pectoris 08/27/2021 09/30/2021 documented as of this encounter (statuses as of 09/14/2022) [facility] History of Past illness Narrative* Problem Noted Date Resolved Date Hypervolemia 10/01/2021 10/04/2021 Overview: History: Postop Assessment:Net negative 2 L x 24 hours, on 40mg Qid with rising BUN, drop in creatinine & improvement in NA Plan: Reduce Lasix 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 Grade I airway. Assessment: Bibasilar atelectasis on CXR. Adequate oxygenation on 2L NC. Plan: BPH, OOB, and pep therapy. Wean O2 as able. Hypovolemia 09/30/2021 10/04/2021 Overview: History: Post-op Assessment: Post op fluid shifts Plan: IVF replacement prn Pain, postoperative, acute 09/30/202110/04 Overview: History: 09/30/2021: CABG x 3, MAZE, LAAC Assessment: Voices adequate pain control. Plan: Scheduled Tylenol, lidocaine patches, and PRN oxycodone Junctional bradycardia 09/30/2021 Overview: See paroxysmal atrial fibrillation Coronary artery disease invo lving [place] coronary artery of [place] heart without angina pectoris 08/27/2021 09/30/2021 documented as of this encounter (statuses as of 09/15/2022) [facility] History of Past illness Narrative* Problem Noted Date Resolved Date Hypervolemia 10/01/2021 10/04/2021 Overview: History: Postop Assessment:Net negative 2 L x 24 hours, on 40mg Qid with rising BUN, drop in creatinine & improvement in NA Plan: Reduce Lasix 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 Grade I airway. Assessment: Bibasilar atelectasis on CXR. Adequate oxygenation on 2L NC. Plan: BPH, OOB, and pep therapy. Wean O2 as able. Hypovolemia 09/30/2021 10/04/2021 Overview: History: Post-op Assessment: Post op fluid shifts Plan: IVF replacement prn Pain, postoperative, acute 09/30/202110/04 Overview: History: 09/30/2021: CABG x 3, MAZE, LAAC Assessment: Voices adequate pain control. Plan: Scheduled Tylenol, lidocaine patches, and PRN oxycodone Junctional bradycardia 09/30/2021 Overview: See paroxysmal atrial fibrillation Coronary artery disease invo lving [place] coronary artery of [place] heart without angina pectoris 08/27/2021 09/30/2021 documented as of this encounter (statuses as of 09/21/2022) [facility] History of Past illness Narrative* Problem Noted Date Resolved Date Hypervolemia 10/01/2021 10/04/2021 Overview: History: Postop Assessment:Net negative 2 L x 24 hours, on 40mg Qid with rising BUN, drop in creatinine & improvement in NA Plan: Reduce Lasix 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 Grade I airway. Assessment: Bibasilar atelectasis on CXR. Adequate oxygenation on 2L NC. Plan: BPH, OOB, and pep therapy. Wean O2 as able. Hypovolemia 09/30/2021 10/04/2021 Overview: History: Post-op Assessment: Post op fluid shifts Plan: IVF replacement prn Pain, postoperative, acute 09/30/202110/04 Overview: History: 09/30/2021: CABG x 3, MAZE, LAAC Assessment: Voices adequate pain control. Plan: Scheduled Tylenol, lidocaine patches, and PRN oxycodone Junctional bradycardia 09/30/2021 Overview: See paroxysmal atrial fibrillation Coronary artery disease invo lving [place] coronary artery of [place] heart without angina pectoris 08/27/2021 09/30/2021 documented as of this encounter (statuses as of 10/12/2022) [facility] History of Past illness Narrative* Problem Noted Date Resolved Date Hypervolemia 10/01/2021 10/04/2021 Overview: History: Postop Assessment:Net negative 2 L x 24 hours, on 40mg Qid with rising BUN, drop in creatinine & improvement in NA Plan: Reduce Lasix 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 Grade I airway. Assessment: Bibasilar atelectasis on CXR. Adequate oxygenation on 2L NC. Plan: BPH, OOB, and pep therapy. Wean O2 as able. Hypovolemia 09/30/2021 10/04/2021 Overview: History: Post-op Assessment: Post op fluid shifts Plan: IVF replacement prn Pain, postoperative, acute 09/30/202110/04 Overview: History: 09/30/2021: CABG x 3, MAZE, LAAC Assessment: Voices adequate pain control. Plan: Scheduled Tylenol, lidocaine patches, and PRN oxycodone Junctional bradycardia 09/30/2021 Overview: See paroxysmal atrial fibrillation Coronary artery disease invo lving [place] coronary artery of [place] heart without angina pectoris 08/27/2021 09/30/2021 documented as of this encounter (statuses as of 10/13/2022) [facility] History of Past illness Narrative* Problem Noted Date Resolved Date Hypervolemia 10/01/2021 10/04/2021 Overview: History: Postop Assessment:Net negative 2 L x 24 hours, on 40mg Qid with rising BUN, drop in creatinine & improvement in NA Plan: Reduce Lasix 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 Grade I airway. Assessment: Bibasilar atelectasis on CXR. Adequate oxygenation on 2L NC. Plan: BPH, OOB, and pep therapy. Wean O2 as able. Hypovolemia 09/30/2021 10/04/2021 Overview: History: Post-op Assessment: Post op fluid shifts Plan: IVF replacement prn Pain, postoperative, acute 09/30/202110/04 Overview: History: 09/30/2021: CABG x 3, MAZE, LAAC Assessment: Voices adequate pain control. Plan: Scheduled Tylenol, lidocaine patches, and PRN oxycodone Junctional bradycardia 09/30/2021 Overview: See paroxysmal atrial fibrillation Coronary artery disease invo lving [place] coronary artery of [place] heart without angina pectoris 08/27/2021 09/30/2021 documented as of this encounter (statuses as of 10/16/2022) [facility] History of Past illness Narrative* Problem Noted Date Resolved Date Hypervolemia 10/01/2021 10/04/2021 Overview: History: Postop Assessment:Net negative 2 L x 24 hours, on 40mg Qid with rising BUN, drop in creatinine & improvement in NA Plan: Reduce Lasix 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 Grade I airway. Assessment: Bibasilar atelectasis on CXR. Adequate oxygenation on 2L NC. Plan: BPH, OOB, and pep therapy. Wean O2 as able. Hypovolemia 09/30/2021 10/04/2021 Overview: History: Post-op Assessment: Post op fluid shifts Plan: IVF replacement prn Pain, postoperative, acute 09/30/202110/04 Overview: History: 09/30/2021: CABG x 3, MAZE, LAAC Assessment: Voices adequate pain control. Plan: Scheduled Tylenol, lidocaine patches, and PRN oxycodone Junctional bradycardia 09/30/2021 Overview: See paroxysmal atrial fibrillation Coronary artery disease invo lving [place] coronary artery of [place] heart without angina pectoris 08/27/2021 09/30/2021 documented as of this encounter (statuses as of 10/18/2022) [facility] History of Past illness Narrative* Problem Noted Date Resolved Date Hypervolemia 10/01/2021 10/04/2021 Overview: History: Postop Assessment:Net negative 2 L x 24 hours, on 40mg Qid with rising BUN, drop in creatinine & improvement in NA Plan: Reduce Lasix 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 Grade I airway. Assessment: Bibasilar atelectasis on CXR. Adequate oxygenation on 2L NC. Plan: BPH, OOB, and pep therapy. Wean O2 as able. Hypovolemia 09/30/2021 10/04/2021 Overview: History: Post-op Assessment: Post op fluid shifts Plan: IVF replacement prn Pain, postoperative, acute 09/30/202110/04 Overview: History: 09/30/2021: CABG x 3, MAZE, LAAC Assessment: Voices adequate pain control. Plan: Scheduled Tylenol, lidocaine patches, and PRN oxycodone Junctional bradycardia 09/30/2021 Overview: See paroxysmal atrial fibrillation Coronary artery disease invo lving [place] coronary artery of [place] heart without angina pectoris 08/27/2021 09/30/2021 documented as of this encounter (statuses as of 11/15/2022) [facility] History of Past illness Narrative* Problem Noted Date Diagnosed Date Resolved Date Hypervolemia 10/01/2021 10/04/2021 Overview: History: Postop Assessment:Net negative 2 L x 24 hours, on 40mg Qid with rising BUN, drop in creatinine & improvement in NA Plan: Reduce Lasix Coronary artery disease due to calcified coronary lesion 09/30/2021 10/05/2021 Atelectasis 09/30/2021 10/04/2021 Overview: History: Postop. Grade I airway. Assessment: Bibasilar atelectasis on CXR. Adequate oxygenation on 2L NC. Plan: BPH, OOB, and pep therapy. Wean O2 as able. Hypovolemia 09/30/2021 10/04/2021 Overview: History: Post-op Assessment: Post op fluid shifts Plan: IVF replacement prn Pain, postoperative, acute 09/30/2021 0 10/04/2021 Overview: History: 09/30/2021: CABG x 3, MAZE, LAAC Assessment: Voices adequate pain control. Plan: Scheduled Tylenol, lidocaine patches, and PRN oxycodone Junctional bradycardia 09/30/202110/03 Overview: See paroxysmal atrial fibrillation Coronary artery disease invo lving [place] coronary artery of [place] heart without angina pectoris 08/27/2021 09/30/2021 documented as of this encounter (statuses as of 02/11/2023) [facility] History of Past illness Narrative* Problem Noted Date Diagnosed Date Resolved Date Hypervolemia 10/01/2021 10/04/2021 Overview: History: Postop Assessment:Net negative 2 L x 24 hours, on 40mg Qid with rising BUN, drop in creatinine & improvement in NA Plan: Reduce Lasix Coronary artery disease due to calcified coronary lesion 09/30/2021 10/05/2021 Atelectasis 09/30/2021 10/04/2021 Overview: History: Postop. Grade I airway. Assessment: Bibasilar atelectasis on CXR. Adequate oxygenation on 2L NC. Plan: BPH, OOB, and pep therapy. Wean O2 as able. Hypovolemia 09/30/2021 10/04/2021 Overview: History: Post-op Assessment: Post op fluid shifts Plan: IVF replacement prn Pain, postoperative, acute 09/30/2021 0 10/04/2021 Overview: History: 09/30/2021: CABG x 3, MAZE, LAAC Assessment: Voices adequate pain control. Plan: Scheduled Tylenol, lidocaine patches, and PRN oxycodone Junctional bradycardia 09/30/202110/03 Overview: See paroxysmal atrial fibrillation Coronary artery disease invo lving [place] coronary artery of [place] heart without angina pectoris 08/27/2021 09/30/2021 documented as of this encounter (statuses as of 04/05/2023) [facility] Evaluation note* Diagnosis Onset Date Resolution Status H/O coronary artery bypass surgery September 30, 2021 acute Prostate cancer acute Atherosclerosis of coronary artery of [place] heart without angina pectoris chronic Essential hypertension chron ic Hyperlipidemia chronic Paroxysmal atrial fibrillation chronic History of coronary artery stent placement October 18, 015 resolved [facility] Work Phone: 1(275) 147-754005-18-2022 Evaluation note* Diagnosis Onset Date Resolution Status H/O coronary artery bypass surgery September 30, 2021 acute Atherosclerosis of coronary artery of [place] heart without angina pectoris chronic Essential hypertension chron ic Hyperlipidemia chronic Paroxysmal atrial fibrillation chronic Prostate cancer chronic History of coronary artery stent placement October 18, 2 015 resolved [facility] Work Phone: 1(544) 291-348305-18-2022 Evaluation note* Diagnosis Onset Date Resolution Status H/O coronary artery bypass surgery September 30, 2021 acute Essential hypertension chron ic Hyperlipidemia chronic Paroxysmal atrial fibrillation chronic History of coronary artery stent placement October 18, 015 resolved [facility] Work Phone: [phone]) 350-201705-17-2022 History of Present illness Narrative* Liz Allen APRN.GROUT MACHINE TENDER - 09/29/2021 11:14 AM EDT See epic [facility] History of Present illness Narrative* Liz Allen APRN.CNP - 09/29/2021 11:06 AM EDT AMBULATORY PATIENT EDUCATION READINESS TO LEARN Cognitive Ability: Alert and oriented Motivation To Learn: Interested Family Support: High - Very involved in pt care Instruction Provided To: Patient & Family Patient Learns Best By: Multiple Methods Factors Affecting Learning: None Physical Limitations Affecting Learning: None LEARNING RESPONSE Diagnosis: CAD Education Topic: Pre-Op Open Heart Surgery Instructions Teaching Points: Logistics / Protocols /Complication Prevention How prepared do you feel you are for this visit: Instruction/Supplemental Materials: Cardiac Surgery Information Binder Video Individual Instruction Patient/Family Response: Follow up plan: Patient/Family to call [facility] with any further questions Referral (Recommendation): None Teach completed, topic: bactroban documented in this encounterOhio[facility] History of Present illness Narrative* Liz Allen APRN.CNP - 09/29/2021 10:40 AM EDT Images from the original note were not included. CONSULT HISTORY and PHYSICAL CARDIOTHORACIC SURGERY Consulting Service: Cardiothoracic Surgery Requesting Provider: [facility] [employer], Marie Bautista M.D.on 08/26/2021. Opinion/advice regarding: Pre-Op Open Heart Surgery Cardiothoracic Physician: Mauricio Riley M.D. NAME: Jermaine Begum HEIGHT: 185 cm WEIGHT: 106.7 kg Intended Procedure: Isolated CABG REDO: No Has this patient been previously evaluated for Open Heart Surgery for this condition? No, cousin Compa S[place]. HPI: (4) This is a 76 year old male who presents in consultation for an opinion regarding treatmentoptions for coronary artery disease. He is currently symptomatic and complains of episode of CP in 06/2021, seen at local ER and ruled out for ACS. During cardiology clearance 08/20/2021 for a prostatectomy a stress test was positive. 08/31/2021 CC revealed triple vessel disease. Was able to mow the lawn 09/26/2021 but states when he became SOB he would take a break and SOB would resolve. Enjoys beingactive. Plays golf 2 x / week, walks his dog, and does his own yard work. Retired from [employer]. to [employer]. The couple reside in [place], [place]. They have a daughter Jovanna and a son Marcio. Karen and Jovanna will be present DOS. Comorbidities include Hyperlipidemia, DM, HTN PAST MEDICAL HISTORY: PAST MEDICAL HISTORY Diagnosis Date Arthritis Atrial flutter, unspecified type (HCC) CAD (coronary artery disease) Diabetes mellitus (HCC) Dilated aortic root (HCC) Diverticulosis of colon (without mention of hemorrhage) Gout HLD (hyperlipidemia) HTN (hypertension) Prostate cancer (HCC) scheduled for surgery September 09, 2021 Spinal stenosis of lumbar region without neurogenic claudication 09/23/2021 lumbar canal stenosis at L4-L5 PAST SURGICAL HISTORY: PAST SURGICAL HISTORY Procedure Laterality Date ARTHRP ACETBLR/PROX FEM PROSTC AGRFT/ALGRFT 05/16/1996 right ARTHRP ACETBLR/PROX FEM PROSTC AGRFT/ALGRFT Left 03/16/2016 Dr. Wilkerson CARDIOVERSION N/A 09/19/2020 [facility] PAST SURGICAL HISTORY OF 05/16/1954 had left arm set above the wrist, PAST SURGICAL HISTORY OF 05/16/2013 Left partial knee replacement TONSILLECTOMY & ADENOIDECTOMY <AGE 11 05/16/1947 FAMILY HISTORY: FAMILY HISTORY Problem Relation Age of Onset Diabetes Mother Hypertension Mother Kidney Disease Father on dialysis Coronary Artery Disease Father Pneumonia Father Breast Cancer Sister Cancer Sister lymp/ 60 yr No Known Problems Maternal Grandmother No Known Problems Maternal Grandfather No Known Problems Paternal Grandmother No Known Problems Paternal Grandfather FAMILY HISTORY OF CAD: Yes SOCIAL HISTORY: Social History Tobacco Use Smoking status: Current Every Day Smoker Types: Cigars Smokeless tobacco: Never Used Tobacco comment: Pt. quit smoking cigarettes in 1969 - don't consciously inhale Vaping Use Vaping Use: Never used Substance Use Topics Alcohol use: Yes Comment: 1 glass of wine with dinner Drug use: No SOCIAL HISTORY OF IVDU: No SOCIAL HISTORY OF Smoking: Yes SOCIAL HISTORY OF Alcohol Dependency: No MEDICATIONS: Prior to Admission Medications: nitroglycerin sublingual (NITROQUICK) 0.4 mg SL tablet, Dissolve 1 tablet under the tongue as needed. FOR CHEST PAIN. IF NO RELIEF CALL 911 atorvastatin (LIPITOR) 80 mg tablet, Take 1 tablet by mouth daily at bedtime. benazepril (LOTENSIN) 20 mg tablet, Take 1 tablet by mouth once daily. atenolol (TENORMIN) 25 mg tablet, Take 1 tablet by mouth once daily. blood sugar diagnostic (BLOOD GLUCOSE TEST) test strip, Test blood sugar(s) 1 times daily. Dx: Type2 DM - Controlled E11.9 Insulin: No Lancets lancets, Test blood sugar(s) 1 times daily. Dx: Type 2 DM - Controlled E11.9 Insulin: No aspirin, enteric coated (ASPIRIN, ENTERIC COATED) 81 mg EC tablet, Take 81 mg by mouth once daily. isosorbide mononitrate ER (IMDUR) 30 mg 24 hr tablet, Take 1 tablet by mouth once daily. spironolactone (ALDACTONE) 25 mg tablet, Take 1 tablet by mouth once daily. mupirocin (BACTROBAN) 2 % ointment, Apply a small amount in each nostril using a cotton swab twice the day before surgery and once the morning of surgery. apixaban (ELIQUIS) 5 mg tab(s), Take by mouth twice daily. Current Facility-Administered Medications Medication Dose Route Frequency leuprolide 30 mg injection (ELIGARD) 30 mg SUBCUTANEOUS q 4 MONTHS ALLERGIES: ALLERGIES No Known Allergies COMPLETE REVIEW OF SYSTEMS: (10) Constitutional: No weight loss, malaise or fevers. HEENT: Negative for frequent or significant headaches, No changes in hearing or vision, no nose bleeds or other nasal problems Resp: Negative for cough, wheezing, or shortness of breath and Positive for shortness of breath on exertion, shortness of breath limiting daily activity and shortness of breath after 2 flights of stairs Cardiovascular: Negative for leg swelling, palpitations, claudication, orthopnea and paroxysmal nocturnal dyspnea and Positive for chest pain GI: Negative for abdominal discomfort, blood in stools or black stools or change in bowel habits : No history of dysuria, frequency, or incontinence and Positive for urgency and nocturia x 2 forpast year. Positive for prostate cancer and impending prostatectomy. Endo: Negative for cold or heat intolerance, polyuria, polydipsia and goiter and Positive for diet controlled DM. Heme/Lymph: Negative for prolonged bleeding, bruising easily or swollen nodes Neurologic: No history or headaches, syncope, paralysis, seizures or tremors and Positive for numbness or tingling of hands. Integumentary: Negative for lesions, rash, and itching. Additional systems reviewed: Musculoskeletal: Positive for right neck and shoulder discomfort when lying on the couch for past 6 months. PHYSICAL EXAM: (8) BP 129/69 (BP Site: Left Arm, BP Position: Sitting, BP Cuff Size: Large Adult) Pulse (!) 49 Temp 36.5 C (97.7 F) (Oral) Ht 185 cm (6' 0.84) Wt 106.7 kg (235 lb 3.7 oz) SpO2 98% BMI 31.18 kg/m Constitutional: Well developed, Well nourished and No distress HEENT: Good dentition, JVD - no and Bruits - no Resp: Clear Cardiovascular: Regular rate & rhythm, S1, S2 normal and Vascular: Pulses - Carotid 2+ and Dorsalis pedis 2+ and No varicosities GI: Soft, Non-tender, Bowel sounds present and Non-distended Integumentary: Warm, Dry and No rash on chest, arms or legs Musculoskeletal: No deformities Neurological/Psychiatric: Oriented to time, place & person , Alert and Steady gait Additional systems reviewed: No additional systems reviewed Labs: Recent Labs 09/28/21 1416 INR 1.0 APTT 26.8 Recent Labs 09/28/21 1416 NA 142 K 4.7 CHLOR 108* CO2 22 BUN 23 CREAT 1.12 GLUC 116* ALKPHOS 125* ALT 24 AST 23 ALB 4.3 Cholesterol, Total 125 09/28/2021 HDL Cholesterol 33 09/28/2021 LDL Chol, Lexis 69 09/28/2021 DATA: I have personally reviewed the following data: Cardiac Catheterization: 08/31/2021 KEELY/TTE: 09/28/2021 CTA chest 07/13/2021 EK08/31/2021 Impression: This is a 76 year old year-old male, who is being evaluated for surgical intervention of coronary artery disease. In consideration for surgery, the patient's acute and chronic medical issues have been evaluated as documented above and reviewed in the electronic medical record. Plan: Patient will be seen today by the surgeon, Dr. Mauricio Riley M.D.. If the patient is a surgical candidate according to criteria met, then advise the following: Bactroban, prescriptions and instructions given. Anticipated Discharge Needs: PT/OT/RT evalulation for anticipated Home Care needs These findings will be communicated back to the requesting provider electronically. SIGNATURE:Liz Allen APRN.CNP Date of Service: 09/29/2021 Time of Service: 11:04 AM documented in this encounterOhio[facility] History of Present illness Narrative* Elle Wei MD - 09/29/2021 9:00 AM EDT Images from the original note were not included. Cardiothoracic Anesthesiology Preoperative Assessment Service Date: 09/29/2021 Service Time: 8:01 AM Primary Care Physician: Dee Rider MD Subjective Scheduled procedure: CABG Surgeon: Rosemary Acunareyna Begum is a 76 year old male who is scheduled for CABG. My final recommendation will be communicated back to the requesting physician by way of shared medical record or letter. HPI: 76yo man w/ hx severe multivessel CAD s/p PCI LCx (2006, 2014), HTN, afib (s/p DCCV in 2020 oneliquis and BB), hx T2DM (not on medications), and prostate ca (surgery scheduled for 11/2021). [facility] 08/2021 w/ severe disease to LAD, D1, RCA, and LCx. Currently denies any chest pain, SOB with exertion, palpitations, dizziness, or syncope. Review no known heparin intolerance anticoagulant/antiplatelet medication(s) - Patient is taking anticoagulant and/or antiplatelet medication with plans of stopping medication on 09/24/21 no non-cardiac IEDs present blood transfusion consented -. A type & screen is resulted and no atypical antibodies identifed COVID-19 Immunization Status Overdue - COVID-19 VACCINE (4 - Booster for Pfizer series) Overdue since 08/04/2021 04/06/2021 Imm Admin: COVID-19 vaccine, age 12+ yr ([employer] - PURPLE TOP) 07/08/2020 Imm Admin: COVID-19 vaccine ([employer]) 06/17/2020 Imm Admin: COVID-19 vaccine ([employer]) The patient has the following: ACTIVE PROBLEM LIST Mixed Hyperlipidemia Essential Hypertension, Benign Localized Osteoarthrosis Not Specified Whether Primary Or Secondary, Shoulder Region Gout, Unspecified Cad (Coronary Artery Disease) Medication Side Effects Hypertrophy of Prostate With Urinary Obstruction and Other Lower Urinary Tract Symptoms (Luts) Elevated Psa Gynecomastia Allergic Rhinitis Controlled Type 2 Diabetes Mellitus Without Complication, Without Long-Term Current Use of Insulin (Hcc) Elevated Prostate Specific Antigen (Psa) Prostate Cancer (Hcc) Abnormal Stress Test Coronary Artery Disease Involving [place] Coronary Artery of [place] Heart Without Angina Pectoris Presence of Drug Coated Stent in Left Circumflex Coronary Artery Hyperlipidemia Ldl Goal <70 Hypertension Goal Bp (Blood Pressure) < 140/80 Spinal Stenosis of Lumbar Region Without Neurogenic Claudication PAST MEDICAL HISTORY Diagnosis Date Arthritis Atrial flutter, unspecified type (HCC) CAD (coronary artery disease) Diabetes mellitus (HCC) Dilated aortic root (HCC) Diverticulosis of colon (without mention of hemorrhage) Gout HLD (hyperlipidemia) HTN (hypertension) Prostate cancer (HCC) scheduled for surgery September 09, 2021 Spinal stenosis of lumbar region without neurogenic claudication 09/23/2021 lumbar canal stenosis at L4-L5 PAST SURGICAL HISTORY Procedure Laterality Date ARTHRP ACETBLR/PROX FEM PROSTC AGRFT/ALGRFT 05/16/1996 right ARTHRP ACETBLR/PROX FEM PROSTC AGRFT/ALGRFT Left 03/16/2016 Dr. Wilkerson CARDIOVERSION N/A 09/19/2020 [facility] PAST SURGICAL HISTORY OF 05/16/1954 had left arm set above the wrist, PAST SURGICAL HISTORY OF 05/16/2013 Left partial knee replacement TONSILLECTOMY & ADENOIDECTOMY <AGE 11 05/16/1947 FAMILY HISTORY Problem Relation Age of Onset Diabetes Mother Hypertension Mother Kidney Disease Father on dialysis Coronary Artery Disease Father Pneumonia Father Breast Cancer Sister Cancer Sister lymp/ 60 yr No Known Problems Maternal Grandmother No Known Problems Maternal Grandfather No Known Problems Paternal Grandmother No Known Problems Paternal Grandfather Social History Tobacco Use Smoking status: Current Every Day Smoker Types: Cigars Smokeless tobacco: Never Used Tobacco comment: Pt. quit smoking cigarettes in 1970 - don't consciously inhale Vaping Use Vaping Use: Never used Substance Use Topics Alcohol use: Yes Comment: 1 glass of wine with dinner Drug use: No Prior to Admission medications as of 09/08/21 1452 Medication Sig Last Dose Taking nitroglycerin sublingual (NITROQUICK) 0.4 mg SL tablet Dissolve 1 tablet under the tongue as needed. FOR CHEST PAIN. IF NO RELIEF CALL 911 atorvastatin (LIPITOR) 80 mg tablet Take 1 tablet by mouth daily at bedtime. benazepril (LOTENSIN) 20 mg tablet Take 1 tablet by mouth once daily. atenolol (TENORMIN) 25 mg tablet Take 1 tablet by mouth once daily. apixaban (ELIQUIS) 5 mg tab(s) Take by mouth twice daily. blood sugar diagnostic (BLOOD GLUCOSE TEST) test strip Test blood sugar(s) 1 times daily. Dx: Type 2 DM - Controlled E11.9 Insulin: No Patient taking differently: Test blood sugar(s) 1 times daily. Dx: Type 2 DM - Controlled E11.9 Insulin: No Uses as needed Lancets lancets Test blood sugar(s) 1 times daily. Dx: Type 2 DM - Controlled E11.9 Insulin: No Patient taking differently: Test blood sugar(s) 1 times daily. Dx: Type 2 DM - Controlled E11.9 Insulin: No Uses as needed aspirin, enteric coated (ASPIRIN, ENTERIC COATED) 81 mg EC tablet Take 81 mg by mouth once daily. isosorbide mononitrate ER (IMDUR) 30 mg 24 hr tablet Take 1 tablet by mouth once daily. spironolactone (ALDACTONE) 25 mg tablet Take 1 tablet by mouth once daily. Medication Comments documented by Nancy Lizama on 03/26/2016 at 1055. ALLERGIES No Known Allergies Objective Pain Assessment: Vitals: There were no vitals taken for this visit. Diagnostic tests reviewed for today's visit: Lab Value Units Date High Low HB 13.7 g/dL 08/31/2021 17.0 13.0 HCT 43.8 % 08/31/2021 51.0 39.0 WBC 7.99 k/uL 08/31/2021 11.00 3.70 PLT 271 k/uL 08/31/2021 400 150 NA 142 mmol/L 09/28/2021 144 136 K 4.7 mmol/L 09/28/2021 5.1 3.7 GLUC 116 mg/dL 09/28/2021 99 74 BUN 23 mg/dL 09/28/2021 24 9 CREAT 1.12 mg/dL 09/28/2021 1.22 0.73 PTSEC 10.9 sec 09/28/2021 13.0 9.7 INR 1.0 no uni* 09/28/2021 1.3 0.9 APTT 26.8 sec 09/28/2021 32.4 23.0 ALT 24 U/L 09/28/2021 54 10 AST 23 U/L 09/28/2021 40 14 TBILI 0.5 mg/dL 09/28/2021 1.3 0.2 TSH No results within date range. Lab Value Units Date High Low HCGQT No results within date range. UHCG No results within date range. HCG, BODY* No results within date range. Lab Value Units Date High Low ABORHD No results within date range. ABSCREEN No results within date range. Hemoglobin A1C (%) Date Value 09/28/2021 6.7 03/30/2021 7.1 09/18/2020 7.0 11/27/2019 6.7 05/21/2019 6.6 11/13/2018 6.4 Recent Results (from the past 8760 hour(s)) ECHO Collection Time: 09/28/21 2:36 PM Impression CONCLUSIONS: - Exam indication: Pre Op CABG - The left ventricle is normal in size. There is mild left ventricular hypertrophy. Left ventricular systolic function is normal. EF = 66 5% (2D biplane) Grade I left ventricular diastolic dysfunction. - The right ventricle is normal in size. Right ventricular systolic function is normal. - The visualized aorta is borderline dilated with a maximal dimension of 3.9 cm. - Exam was compared with the prior echocardiographic exam performed on 05/31/2012. There is no significant change. * * * Final * * * ECG COMPLETE Collection Time: 08/31/21 11:22 AM Impression SINUS BRADYCARDIA WITH 1ST DEGREE AV BLOCK WITH PREMATURE ATRIAL COMPLEXES COMPLETE RIGHT BUNDLE BRANCH BLOCK ABNORMAL ECG Confirmed by MD ESTELLA, PhD, SHAHEEN ([id number]) on 09/10/2021 8:08:05 PM Stress test 08/2021 [facility] 08/2021 Impression: -Right dominant system -Severe obstructive multivessel CAD -Severe diffuse prox LAD stenosis involving medium caliber D1 w/ 60% ostial stenosis and 70% tubular stenosis in mid LAD -50% prox LCx stenosis with patent stents in mid LCx (2 layers) with 50% ISR -50% stenosis in mid RCA w/ severe diffuse disease in mid to distal RCA Recommended Treatment: CABG and Medical Therapy. Plan: -Recommend CTS referral for CABG evaluation with consideration for bypasses to LAD, D1, RCA, and possibly LCx. This would allow most expedient progress to urologic surgery for prostate cancer with safety. -Continue medical therapy & aggressive risk factor modifications. As previously noted, tobacco cessation is important. Assessment No problem-specific Assessment & Plan notes found for this encounter. ANESTHESIA FINDINGS: Intubation History: Significant Anesthesia Considerations: Airway History: Prepared for Surgery: optimally prepared for surgery, pending day of surgery. The Following Tests/Procedures Have Been Initiated: No orders of the defined types were placed in this encounter. ASA Class: 4 Planned Anesthetic: general I - PHYSICAL EVALUATION AIRWAY Tracheostomy tube not present Mallampati: II. TM distance: >3 FB. Neck ROM: full ROM without neurological symptoms. Mouth opening: adequate. Short neck: no. Thick neck: no DENTAL Dental findings: teeth intact. II - ANESTHESIA PLAN ASA Score: 4 Anesthetic Plan: general Patient / Surrogate agrees to blood products: Yes Instructions Given to Patient: Instructions located in the after visit summary. Patient given verbal and written preop instructions and voices comprehension and compliance. Signature: Elle Wei MD Patient Name: Jermaine Begum Date: September 29, 2021 Time: 8:01 AM Pager/Contact #: documented in this encounterOhiohealth Doctors Hospital05-17-2022 History of Present illness Narrative* Mauricio Riley MD - 09/29/2021 8:30 AM EDT Thoracic and Cardiovascular Surgery [facility] SURGICAL CONSULT AND INFORMED CONSENT CHART COPY DO NOT DISCARD Patient Type: New Visit to determine Surgery: Yes PCP: Dee Rider [address] [place] [address] Referring Physician:: Mauricio Riley [id number] [facility] [address] HPI: Mr. Jermaine Bgeum is a 76 year old male seen in consultation at the request of Mauricio Riley for an opinion regarding treatment options for Atrial Fibrillation and Coronary Artery Diseaseafter being seen and evaluated by Bandar Ramsey He is currently mainly has shortness of breath with exertion and had a positive cardiac stress test Comorbidities include prostate cancer. I have personally reviewed his cardiac catheterization which shows 3 vessel coronary artery disease. Echocardiogram reveals normal ventricular function and normal valves. Labs: wnl EKG: Complete RBBB Atrial Fibrillation History: On eliquis- Atrial flutter about 15 months ago for several weeks- thencardioverted and has been in sinus Impression: CAD with shortness of breath and atrial flutter Plan: CABG with left internal thoracic artery and saphanous vein graft to the circumflex coronary artery and two branches of the right coronary artery, maze procedure with clipping of the left atrialappendage I spent more than 50% of the visit face to face counseling the patient on the plan and treatment options. The time spent counseling was 30 minutes. The total time of the face to face visit was 30 minutes. The risks, benefits and anticipated outcomes of the procedure, the risks and benefits of the alternatives to the procedure, and the roles and tasks of the personnel to be involved, were discussed with the patient, and the patient consents to the procedure and agrees to proceed. These findings will be communicated back to the requesting physician via electronic medical record Mauricio Riley MD documented in this encounterOhiohealth Doctors Hospital05-16-2022 History of Present illness Narrative* Ulises Meneses RRT - 09/28/2021 1:30 PM EDT PULM FUNCTION SMARTBLOCK: Provider: Mauricio Riley MD Spirometry: 1 DLCO: 1 System: [id number] documented in this encounterOhiohealth Doctors Hospital05-11-2022 History of Present illness Narrative* RT Rosmery(R) - 09/23/2021 9:20 AM EDT Radiology Service Progress Note DATE OF SERVICE: September 23, 2021 TIME: 10:05 AM PATIENT IDENTITY VERIFICATION COMPLETED USING TWO (2) STANDARD IDENTIFIERS: Name and Date of confirmed by patient verbally. FALL SCREENING: Has the patient had 2 falls in the last year or 1 fall with injury or currently using an Ambulatory Assistive Device (Walker, Cane, Wheelchair, Crutches, etc.)? No PATIENT GENDER DATA: Male PATIENT RELEVANT IMPLANT DATA REVIEWED: Yes ALLERGIES: Reviewed and unchanged CONTRAST ALLERGY: NO. EXAM: MRI - CONTRAST TYPE: GROUP II PERIPHERAL IV DATA: Ambulatory: A peripheral IV was started in the Right antecubital site with a Angio cath: 22 gauge. RADIOLOGY DEPARTMENT: MR; Exam(s) Completed: Spine: Thoracic spine SIGNATURE: RT Rosmery(R) PATIENT NAME: Jermaine Begum DATE: September 23, 2021 TIME: 10:05 AM documented in this encounterOhiohealth Doctors Hospital05-02-2022 Miscellaneous Notes* Telephone Encounter - Chad Lutz RN - 09/14/2021 3:33 PM EDT Called patient to schedule surgery on 10/03/2021 patient wanted to speak with Dr. Moreno before deciding if he wanted to proceed. He was to call back when he was ready to schedule. Patient called back today and wishes to proceed with CABG surgery. Tentative date is 09/30/2021. Patient is aware of the need for additional testing and was instructed to continue ASA and to hold his Eliquis 5 days prior to surgery. Cardiac Surgery PreOp Checklist Patient Name: Jermaine Begum OR Surgery Date: 09/30/2021 [facility] Appt. Date: 09/29/2021 Primary Care Provider: Dee D Elderbrock, MD Definition Comments Diabetes/Insulin Pump A1-c and Endo consult (need for pump pt) n/a Hypothyroid/thyroid nodules TSH/US of thyroid if new nodule n/a Stroke (CVA) Neurology consult n/a Dysphagia, stricture w/no recent dilation, De La Torre's Esophagus GI consult n/a Von Willebrand/thrombocytopenia/ Blood... Hematology consult n/a Abnormal labs from outside Place any necessary consults n/a Cardiac Cath Correct birthday/include all images/moving if outside cath On syngo 08/31/2021 Redo [facility]HS/Robotic surgery/radiation to chest CT or CTA/if outside CT will need in-house CXR, CardiacMRI n/a Mechanical valve Admit for Heparin/Lovenox bridge n/a Female <50 y/o HCG n/a Heparin allergy hx of HIT Vascular Medicine consult n/a Nickel/Metal allergy Dermatology consult n/a Breast implants/Robotic candidates Plastic Surgery consult n/a Urinary strictures Urology consult/Urology consult to OR n/a All stimulators/spinal stimulator Type of stimulator n/a PPM/AICD Device check n/a Valve/TAVR/TEVAR/Myectomy/ascending aorta Dental clearance/Dental Consult at [facility] n/a CABG surgery with previous CABG/varicose vein/vein stripping Leg vein mapping ordered LMT disease > 30% or Carotid Bruits Carotid ultrasound n/a Descending Aneurysm/TEVAR/TAA Pre-admit/hydration/spinal drain to be placed: IR/OR/Not Needed n/a Dialysis patient IHD day prior to [facility] n/a CABG with no ECHO results Discussion w/surgeon results for dental clearance: preop/postop n/a Advanced Directives Instructions given to patient addressed FMLA Forward to AA n/a Test/Consult not needed Communicate in Epic or Access n/a Record of decreased PFTs, known lung disease Any pulmonary consult ordered Pulmonary embolectomy Needs US/Duplex BLE, VQ scan RHC, possible LHC, Pulmonary and/or Vascular consult n/a Abnormal CT All>1cm if further workup/consult needed n/a CC-Bio Repostitory Notification of packet and general knowledge given to pt n/a documented in this encounterOhiohealth Doctors Hospital04-26-2022 Miscellaneous Notes* Telephone Encounter - Milka Waters RN - 09/08/2021 11:35 AM EDT Call to pt and notified he did not need to pick this medication up from pharmacy and to keep his appt at 2:40 as scheduled. Pt verbalized understanding. * Telephone Encounter - Rubén Alves PA-C - 09/08/2021 10:43 AM EDT That's because its a chemotherapy drug for prostate cancer and he needs and appointment with urology and we order it for him at the appointment and give it to him here, If he was told to pick it up that is wrong. ROD Cadena, OR, JULES * Telephone Encounter - Milka Waters RN - 09/08/2021 10:14 AM EDT Pt called in states he tried to spanish moss picker his medication Leuprolide inj at [facility] but pharmacy says they did not receive a request. This RN called [facility] pharmacy to verify, stated it was sent to them 09/01/21. Abena at [facility] pharmacy states they do not have any requests for pt. States it needs sharon resent. documented in this encounterOhiohealth Doctors Hospital04-20-2022 Miscellaneous Notes* Telephone Encounter - Bianca Peck - 09/02/2021 5:07 PM EDT inn * Telephone Encounter - Oj Nicolas - 09/02/2021 3:24 PM EDT Please register/advise Thanks documented in this encounterOhiohealth Doctors Hospital04-20-2022 History of Present illness Narrative* Debbie Morrow APRN.CNP - 09/02/2021 3:30 PM EDT Pre-op visit cancelled (surgery cancelled). documented in this encounterOhiohealth Doctors Hospital04-19-2022 Miscellaneous Notes* Telephone Encounter - Debbie Morrow APRN.CNP - 09/01/2021 4:51 PM EDT Returned patient's call and spoke to Jermaine Begum at this time. He is s/p cardiac cath yesterday and notifies Dr. Damon's office that he has not been cleared for prostate surgery scheduled on 09/09/2021 from cardiology- severe obstructive multivessel CAD and CABGrecommended. Discussed with Dr. Damon- will cancel upcoming surgery and all pre-op appointments at this time. Dr. Damon suggests he receive Lupron injection in 2 weeks and be scheduled for a follow up virtual visit in 4 weeks. Message sent to schedulers to coordinate. He verbalized understanding of information and was agreeable to this plan of care. Debbie Morrow APRN.CNP documented in this encounterOhiohealth Doctors Hospital04-17-2022 Miscellaneous Notes* Telephone Encounter - Cordelia Mcfadden RN - 08/30/2021 1:22 PM EDT CARDIOVASCULAR LAB INSTRUCTIONS: Readiness to Learn: Cognitive Ability: Alert and oriented Motivation To Learn: Interested Family/Significant Other Support: High - Very involved in pt care Instruction Provided To: Patient Patient Learns Best By: Verbal Instruction Factors Affecting Learning: None Physical Limitations Affecting Learning: None Learning Response: Procedure: Diagnostic Cath with Intervention Pre procedure education topics: Arrival time/NPO Status/Medications/Travel Covid19/Driving restrictions Instructions/Restrictions Patient/Family Response Evaluation: Verbalizes understanding Follow Up Plan and Medication: As directed by physician Instruction/Supplemental Material Given: Cardiac catheterization instructions, procedure information, hospital information, hotel information. Instructed By Cordelia Mcfadden RN. In Department of CARDIOLOGY. documented in this encounterOhiohealth Doctors Hospital04-14-2022 Miscellaneous Notes* Telephone Encounter - Manny Monique - 08/27/2021 10:33 AM EDT Call from patient requesting refill. Pt lost his bottle of NTG yesterday. Pending Prescriptions Disp Refills NITROGLYCERIN 0.4 MG SUBLINGUAL TABLET 3 tablet 3 Sig: Dissolve 1 tablet under the tongue as needed. FOR CHEST PAIN. IF NO RELIEF CALL 911 CHELSEA: No Patient last seen 08/26/21 documented in this encounterOhiohealth Doctors Hospital04-13-2022 Miscellaneous Notes* Telephone Encounter - Manny Monique - 08/26/2021 10:14 AM EDT Office spoke with patient on 08/25 around 5:45. Pt has been informed and will come to appointment this afternoon. * Telephone Encounter - Manny Monique - 08/25/2021 5:33 PM EDT Office called cell phone and left detailed vm that patient will be scheduled to see Dr. Bautista at 4:00 on 08/26. Office called home phone and managed to speak directly with the patient. Pt had labs done at [facility]. Pt will have covid test at [place] location. Cath to be on 08/31 documented in this encounterOhiohealth Doctors Hospital04-13-2022 History of Present illness Narrative* Marie Bautista MD - 08/26/2021 9:22 AM EDT Images from the original note were not included. [facility] V[facility] [place] [facility] Department of Cardiovascular Medicine SECTION OF INTERVENTIONAL CARDIOLOGY OUTPATIENT VISIT DATE August 26, 2021 OUTPATIENT VISIT TYPE NEW PRIMARY CARE PHYSICIAN: Dee Rider [address] [place] [address] REFERRING PHYSICIAN: Bandar Soria [address] [facility] [id number] CHIEF COMPLAINT: No chief complaint on file. HISTORY OF PRESENT ILLNESS: Mr. Begum is a 76 year old male who presents today for abnormal stress test - CAD 2007 PCI Circumflex 2014 ISR and distal candy wrapper lesion treated with concertina MAGDA Circumflex 2020 AF s/p DCCV to SR and on eliquis and BB 2021 stress test suggestive of ischemia LAD and RCA (known moderate disease in both in 2014) for LHC +/- single period of CP that has NOT recurred - he incidentally did have COVID in May 2021 despite vaccination does not have same symptoms as he had prior to both previous PCI concern that PCI for critical disease would DELAY surgery for Prostate CA if unchanged moderate disease with no symptoms would have him have his prostatectomy and to defer PCI labs ekg and covid screen hold eliquis over weekend for cath lab radiology technician on Tuesday he is planning on golf and going to home bond analyst before Tuesday - Hx AFl on eliquis and atenolol - Hyperlipidemia Target NCEP/ATP III most aggressive guideline goals for treatment Use diet, exercise and Rx Target specifically LDL =or< 70 mg/dL Patients with atherosclerotic vascular disease are candidates for HIGH INTENSITY statin therapy (Atorvastatin 80 mg daily or Rosuvastatin 20-40 mg daily) per ATP IV on atorva 80/pm - Hypertension Target JNC VIII Guideline goal for BP control Specifically SBP < 150 mm Hg and DBP < 80 mm Hg on lotensin 20/d, atenolol 25/pm, imdur 30/d, spironolactone 25/am . - prostate CA tent for prostatectomy 09/09/2021 NURSING INTAKE: PMHX HTN HLD CAD s/p BMS to Circumflex-2006, MAGDA to Circumflex 2014 A. Fib s/p cardioversion 09/19/2020 (eliquis) Prostate Carcinoma scheduled for prostatectomy on 09/09/[address] Nelson Brito Dilated Aortic Root Osteoarthritis DM - no meds COVID-19 06/05/2021 (fully vaccinated) Plan for Cath on 08/31/[address] Bautista due to Abnormal Stress. He has history of coronary artery disease with PCI in 2006 and then again here at [facility] in 2014. His symptom prior to both PCI was exertional dyspnea. He described it as sucking in for air as I walk.After each PCI he had relief of symptoms. In August of 2020 he was diagnosed with atrial flutter. Again he was experiencing exertional dyspneaas well as palpitations. He had a cardioversion and was shocked x1 back to [facility]. He was started on eliquis and has had no issues since. He was recently diagnosed with prostate cancer and is scheduled for surgery at the end of August. With his cardiac history, he needed cardiac clearance from his chisel worker. He had an exercise stresstest which was suggestive of ischemia. He still experiences shortness of breath if he is walking at a fast pace. He had an episode of severe chest pain back in June while in [place]. He was out to dinner and he started to experience a sharp pain under his left breast bone that radiated to his back and left shoulder. He called his local chisel worker and was advised to go to ER. He was monitored for a couple hours and bloodwork and CT came back WNL. He experienced this for about 5 days, got less severe as the days went on. By that Tuesday the pain was gone. He has been golfing and very active since and hasn't had any chest pain. Risk factors for coronary artery disease hyperlipidemia, hypertension, history of smoking He denies chest pain, orthopnea, PND, palpitations, lightheadedness, syncope, claudication, leg swelling, cough and wheezing. Diet / Nutrition: regular Weight: stable Exercise: active around his home, golfing a couple times per week, walking the dog daily, mowing the lawn Cardiac Testing: Stress Test 08/20/2021 (no images) 03/30/2021 HgbA1c 7.1 08/05/2021 Liver Enzymes PAST MEDICAL HISTORY Diagnosis Date Arthritis Atrial flutter, unspecified type (HCC) CAD (coronary artery disease) Diabetes mellitus (HCC) Dilated aortic root (HCC) Diverticulosis of colon (without mention of hemorrhage) Gout HLD (hyperlipidemia) HTN (hypertension) Prostate cancer (HCC) scheduled for surgery September 09, 2021 PAST SURGICAL HISTORY Procedure Laterality Date ARTHRP ACETBLR/PROX FEM PROSTC AGRFT/ALGRFT 05/16/1996 right ARTHRP ACETBLR/PROX FEM PROSTC AGRFT/ALGRFT Left 03/16/2016 Dr. Wilkerson CARDIOVERSION N/A 09/19/2020 [facility] PAST SURGICAL HISTORY OF 05/16/1954 had left arm set above the wrist, PAST SURGICAL HISTORY OF 05/16/2013 Left partial knee replacement TONSILLECTOMY & ADENOIDECTOMY <AGE 11 05/16/1947 SOCIAL HISTORY Social History Tobacco Use Smoking status: Current Every Day Smoker Types: Cigars Smokeless tobacco: Never Used Tobacco comment: Pt. quit smoking cigarettes in 1969 - don't consciously inhale Vaping Use Vaping Use: Never used Substance Use Topics Alcohol use: Yes Comment: 1 glass of wine with dinner Drug use: No FAMILY HISTORY Problem Relation Age of Onset Diabetes Mother Hypertension Mother Kidney Disease Father on dialysis Coronary Artery Disease Father Pneumonia Father Breast Cancer Sister Cancer Sister lymp/ 60 yr ALLERGIES: ALLERGIES No Known Allergies MEDICATIONS: benazepril (LOTENSIN) 20 mg tablet Take 1 tablet by mouth once daily. atenolol (TENORMIN) 25 mg tablet Take 1 tablet by mouth once daily. apixaban (ELIQUIS) 5 mg tab(s) Take by mouth twice daily. nitroglycerin sublingual (NITROQUICK) 0.4 mg SL tablet Dissolve 1 tablet under the tongue as needed. FOR CHEST PAIN. IF NO RELIEF CALL 911 aspirin, enteric coated (ASPIRIN, ENTERIC COATED) 81 mg EC tablet Take 81 mg by mouth once daily. isosorbide mononitrate ER (IMDUR) 30 mg 24 hr tablet Take 1 tablet by mouth once daily. spironolactone (ALDACTONE) 25 mg tablet Take 1 tablet by mouth once daily. atorvastatin (LIPITOR) 40 mg tablet Take 1 tablet by mouth once daily. blood sugar diagnostic (BLOOD GLUCOSE TEST) test strip Test blood sugar(s) 1 times daily. Dx: Type 2 DM - Controlled E11.9 Insulin: No Lancets lancets Test blood sugar(s) 1 times daily. Dx: Type 2 DM - Controlled E11.9 Insulin: No REVIEW OF SYSTEMS: GENERAL: no fever, no chills and no change in weight HEENT: no headaches, no hearing loss, no difficulty swallowing, no visual changes, no nose bleeds SKIN: no rashes, no lesions and no ulcers RESPIRATORY: SEE HPI CARDIOVASCULAR: See HPI GASTROINTESTINAL: no abdominal pain, no nausea, no vomiting, no difficulty or painful swallowing and no melanotic stools GENITOURINARY: no dysuria, no frequency and no nocturia MUSCULOSKELETAL: no joint pain, no joint swelling, no muscle pain or myalgias and no pain with walking NEUROLOGIC: no numbness, no tingling and no sensation of pins and needles HEMATOLOGY: no bruising easily, no prolonged bleeding, no anemia and no cancer ENDOCRINE: no cold or heat intolerance, no polyuria, no polydipsia, no goiter, no diabetes and no thyroid disease PSYCH: no sleep disturbance, no mood disorders and no recent psychosocial stressors PHYSICAL EXAMINATION: BP 128/72 Pulse 65 Resp 18 Ht 6' 1 (1.85m) Wt 219 lb (99.3kg) SpO2 98[RA]% BMI 28.90 kg/(m^2). General:well developed, NAD Neck:no JVD, no carotid bruits, thyroid not palpable, no tenderness Lungs:clear to auscultation and no rales Heart:regular rhythm, S1, S2 normal, no S3, no S4, no heaves, no thrills and no murmur Abdomen:soft, non-tender, bowel sounds present Neurologic:Oriented to time, place and person CARDIOVASCULAR MEDICINE TESTING: Electrocardiogram: Aug 26 2021 15:08:34 Diagnosis: SINUS BRADYCARDIA WITH 1ST DEGREE AV BLOCK WITH PREMATURE ATRIAL COMPLEXES IN A PATTERN OF BIGEMINY COMPLETE RIGHT BUNDLE BRANCH BLOCK ABNORMAL ECG I have personally reviewed the Electrocardiogram. IMPRESSION: Mr. Begum is a 76 year old male - CAD 2007 PCI Circumflex 2014 ISR and distal candy wrapper lesion treated with concertina MAGDA Circumflex 2020 AF s/p DCCV to SR and on eliquis and BB 2021 stress test suggestive of ischemia LAD and RCA (known moderate disease in both in 2014) for LHC +/- single period of CP that has NOT recurred - he incidentally did have COVID in May 2021 despite vaccination does not have same symptoms as he had prior to both previous PCI concern that PCI for critical disease would DELAY surgery for Prostate CA if unchanged moderate disease with no symptoms would have him have his prostatectomy and to defer PCI labs ekg and covid screen hold eliquis over weekend for cath lab radiology technician on Tuesday he is planning on golf and going to home bond analyst before Tuesday - Hx AFl on eliquis and atenolol - Hyperlipidemia Target NCEP/ATP III most aggressive guideline goals for treatment Use diet, exercise and Rx Target specifically LDL =or< 70 mg/dL Patients with atherosclerotic vascular disease are candidates for HIGH INTENSITY statin therapy (Atorvastatin 80 mg daily or Rosuvastatin 20-40 mg daily) per ATP IV on atorva 80/pm - Hypertension Target JNC VIII Guideline goal for BP control Specifically SBP < 150 mm Hg and DBP < 80 mm Hg on lotensin 20/d, atenolol 25/pm, imdur 30/d, spironolactone 25/am . - prostate CA tent for prostatectomy 09/09/2021 . PLAN AND RECOMMENDATIONS: LHC [facility] obtained labs ekg and covid screen I personally interviewed, confirmed and edited the above information as obtained by others. CONTACT INFORMATION: documented in this encounterOhiohealth Doctors Hospital04-12-2022 History of Present illness Narrative* Manny Monique - 08/25/2021 5:[address] Bautista documented in this encounterOhiohealth Doctors Hospital04-11-2022 Miscellaneous Notes* Telephone Encounter - Tima Murray MD - 08/24/2021 6:51 PM EDT I spoke with Mr. Begum about his upcoming cardiology appt. Takes eliquis for a flutter. Recent Stress test was positive (per report) with local chisel worker. Pt is scheduled for RALP with Dr. Damon on 09/09. He is having his cardiologiist changed to a [facility] doctor and doesn't have an appointment yet. Discussed that his surgery date remains in place in the event he has a negative cardiac eval preop.He will let us know RUBI when he has an appt scheduled and/or results of cardiac cath. documented in this encounterStephen Ville [address]-04-2022 History of Present illness Narrative* Quentin Hampton MD - 08/17/2021 3:00 PM EDT Radiation Oncology - Prostate Cancer New Patient/Consult Note This is a virtual visit using a HIPAA compliant video platform. It required patient-provider interaction for the medical decision making as documented below. The patient consented to the virtual encounter. PATIENT NAME: Jermaine Begum PATIENT REQUESTING PROVIDER: Dr. Damon DIAGNOSIS: 76 year old male with bilateral hip prostheses and prostate adenocarcinoma, initial PSA 34.08, biopsy Jackson score 4 + 3 = 7 (grade group 3), clinical stage T1c (radiographic stage T3a onMRI), N0, M0, stage IIIA [T1- T2, N0, M0, PSA >=20, GG 1-4] (AJCC 8th ed.), s/p MR Targeted biopsy. HPI: 76 year old male with prostate adenocarcinoma who presents for an opinion regarding the role of radiation therapy in the management of the patient's disease. Final recommendations will be communicated back to the requesting physician by way of the shared medical record, or letter to requestingphysician via [place] mail. The patient was diagnosed with prostate cancer and comes in today to discuss treatment options. PSAincreased to 34.08 ng/mL (06/04/2021). Clinical exam revealed no nodule. MRI prostate (06/04/2021) showed PI-RADS 5 lesion and +EPE. IMPRESSION: 2.1 CM PIRADS-5 LESION IN THE LEFT APEX-MID POSTERIOR PERIPHERAL ZONE MEDIALLY. EXTRAPROSTATIC EXTENSION IS PRESENT (TUMOR EXTENDS BEYOND CAPSULE). TUMOR INVASION OF THE NEUROVASCULAR BUNDLE IS SUSPECTED ON THE LEFT. SEMINAL VESICLES ARE UNREMARKABLE. TUMOR ABUTS THE ANTERIOR RECTAL WALL. SUBOPTIMAL EVALUATION FOR PELVIC LYMPHADENOPATHY DUE TO PRESENCE OF ARTIFACT FROM BILATERAL HIP PROSTHESES. CONSIDER CT SCAN FOR FURTHER EVALUATION. NO OSSEOUS METASTATIC DISEASE WITHIN THE WELL VISUALIZED OSSEOUS STRUCTURES WITH ARTIFACT IN THE PELVIS DESCRIBED ABOVE MRI fusion prostate biopsy on 06/23/2021 revealed prostate cancer, Jackson 7 (4+3), GG3, 5 of 9 cores positive. Of note he had a cardiac episode (arrest?) in 2013. No issues since then. He keeps nitrates in his pocket but he has not used in 14 years. PSA history: PSA (ng/mL) Date Value 06/04/2021 34.08 04/03/2021 27.6 03/16/2016 7.63 06/13/2010 4.84 PSA, Percent Free (%) Date Value 06/13/2010 16 Biopsy 06/23/21: FINAL DIAGNOSIS 1. Prostate, target one left apex/mid posteromedial PZ, PI-RADS 5, biopsy (A): Adenocarcinoma of the prostate, Dorothy score 3+4=7 (grade group 2), involving three of three cores (90%, 9 mm; 80%, 8 mm; 75%, 7.5 mm). - Cribriform pattern 4 is identified. 2. Prostate, right base, biopsy (B): Benign prostatic tissue. 3. Prostate, right mid, biopsy (C): Benign prostatic tissue. 4. Prostate, right apex, biopsy (D): Benign prostatic tissue. 5. Prostate, left base, biopsy (E): High-grade prostatic intraepithelial neoplasia. 6. Prostate, left mid, biopsy (F): Adenocarcinoma of the prostate, Dorothy score 3+3=6 (grade group 1), involving one of one core (less than 5%, less than 1 mm). 7. Prostate, left apex, biopsy (G): Adenocarcinoma of the prostate, Dorothy score 4+3=7 (grade group 3), involving one of one core (95%, 12 mm). -Cribriform pattern 4 is identified. Prostate Cancer Biopsy Summary Number of cores examined: 9 Number of cores positive: 5 Highest Grade Group: 3 Highest % of core involvement: 95% Cribriform pattern 4: Present Intraductal carcinoma: Absent Staging Studies: Bone scan (07/30/2021): moderately increased uptake of the upper and midthoracic spine. Suggest radiographic correlation CT abd/pel (07/30/2021): no metastatic disease in the abdomen and upper pelvis. Nondiagnostic CT of the lower pelvis below the level of the acetabular roof to the pubic symphysis (including the prostate) due to extensive streak artifact from bilateral hip arthroplasties. Nondisplaced LEFT sacral alainsufficiency fracture Previous Treatment for Prostate Cancer: None Genomic Testing: None The patient reports the following pertinent history: Urinary frequency (D/N): 4/1-2, some more urgency recently Dysuria: No Incontinence: 1- No pads Hematuria: No Bowel Movement Frequency: 0-1/day Bowel Movement Quality: tends toward constipation Blood per Rectum: No Last Colonoscopy: 2019 Baseline Erectile Function: not sexually active Androgen Deprivation: none Prior Radiation Therapy, Collagen Vascular Disease, or Inflammatory Bowel Disease: No Currently on Anticoagulation: Yes, Eliquis History of Hip Replacement: Yes, bilateral hip prostheses History of Prior TURP: No ALLERGIES No Known Allergies benazepril (LOTENSIN) 20 mg tablet Take 1 tablet by mouth once daily. atenolol (TENORMIN) 25 mg tablet Take 1 tablet by mouth once daily. apixaban (ELIQUIS) 5 mg tab(s) Take by mouth twice daily. blood sugar diagnostic (BLOOD GLUCOSE TEST) test strip Test blood sugar(s) 1 times daily. Dx: Type 2 DM - Controlled E11.9 Insulin: No Lancets lancets Test blood sugar(s) 1 times daily. Dx: Type 2 DM - Controlled E11.9 Insulin: No nitroglycerin sublingual (NITROQUICK) 0.4 mg SL tablet Dissolve 1 tablet under the tongue as needed. FOR CHEST PAIN. IF NO RELIEF CALL 911 aspirin, enteric coated (ASPIRIN, ENTERIC COATED) 81 mg EC tablet Take 81 mg by mouth once daily. isosorbide mononitrate ER (IMDUR) 30 mg 24 hr tablet Take 1 tablet by mouth once daily. spironolactone (ALDACTONE) 25 mg tablet Take 1 tablet by mouth once daily. atorvastatin (LIPITOR) 40 mg tablet Take 1 tablet by mouth once daily. PAST MEDICAL HISTORY Diagnosis Date Atrial flutter, unspecified type (HCC) CAD (coronary artery disease) Diverticulosis of colon (without mention of hemorrhage) Essential hypertension, benign Internal hemorrhoids without mention of complication Psychosexual dysfunction with other specified psychosexual dysfunctions Pure hypercholesterolemia PAST SURGICAL HISTORY Procedure Laterality Date ARTHRP ACETBLR/PROX FEM PROSTC AGRFT/ALGRFT 05/16/1996 right ARTHRP ACETBLR/PROX FEM PROSTC AGRFT/ALGRFT Left 03/16/2016 Dr. Wilkerson CARDIOVERSION N/A 09/19/2020 [facility] CATHETER-ANGIOPLASTY 90% blockage COLONOSCOPY FLX DX W/COLLJ SPEC WHEN PFRMD 07/24/2008 Colonoscopy EXC VARICOCELE/LIGATION SPERMATIC VEINS SPX 05/16/1979 PAST SURGICAL HISTORY OF 05/16/1954 had left arm set above the wrist, PAST SURGICAL HISTORY OF 05/16/2013 Left partial knee replacement SIGMOIDOSCOPY FLX DX W/COLLJ SPEC BR/WA IF PFRMD 10/03/2012 Sigmoidoscopy, flexible repeat colon in 6 years TONSILLECTOMY & ADENOIDECTOMY <AGE 11 05[birth year]16/1947 FAMILY HISTORY Problem Relation Age of Onset Diabetes Mother age84 yr Heart Mother other (pneumonia) Father age 88 other (cad) Father Breast Cancer Sister Cancer Sister lymp/ 60 yr Alcohol/Drug Maternal Grandfather Social History Tobacco Use Smoking status: Current Every Day Smoker Years: 4.00 Types: Cigars Smokeless tobacco: Never Used Tobacco comment: Pt. 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 No acute distress. HEENT: NCAT. Sclera anicteric. Chest: No respiratory distress. Neuro: Speech fluent. 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 The treatment options for prostate cancer including radical prostatectomy, brachytherapy, external beam radiation and androgen deprivation therapy were reviewed with the patient. He desires to proceed with the plan outlined below. RADICAL PROSTATECTOMY MANAGEMENT: Mr. Begum will undergo surgery in the form of robotic prostatectomy, and understands the potentialrisks and benefits of this procedure. He understands that he will have a high likelihood of needingpostoperative radiation therapy, depending on the pathology findings and PSA levels. If he needs postoperative RT, he could have this done in [place] with Dr. Mi. ORDERS: 1. No orders entered today 2. Follow-up: As needed Signed by: Quentin Hampton MD Medical Decision Making: Problems: High: Illness/injury w/ threat to life/body function Data: Unique test result(s) reviewed: 2 Risk: High: High risk from testing/treatment Medical Decision Making Level: 5 - High cc: Dee Rider MD [address] [place] [address] Diamond Damon MD [address] [facility] [id number] [facility]* Diagnosis Onset Date Resolution Status Preop cardiovascular exam [place] Essential hypertension chron ic Hyperlipidemia chronic Paroxysmal atrial fibrillation chronic History of coronary artery stent placement October 18, 015 resolved [facility] Work Phone: Evaluation + Plan note No data available for this section [facility] Evaluation note* Diagnosis Prostate cancer (HCC) Malignant neoplasm of prostate Abnormal findings on diagnostic imaging of other parts of musculoskeletal system Malignant neoplasm of prostate (HCC) Malignant neoplasm of prostate [facility] Diagnosis Essential hypertension, benign- Primary Coronary artery disease involving [place] heart without angina pectoris, unspecified vessel or lesion type Mixed hyperlipidemia Controlled type 2 diabetes mellitus without complication, without long-term current use of insulin (HCC) Malignant neoplasm of prostate (HCC) Malignant neoplasm of prostate [facility] Diagnosis Abnormal stress test- Primary Other nonspecific abnormal cardiovascular system function study Coronary artery disease involving [place] coronary artery of [place] heart without angina pectoris Presence of drug coated stent in left circumflex coronary artery Postsurgical percutaneous transluminal coronary angioplasty status Hyperlipidemia LDL goal <70 Other and unspecified hyperlipidemia Hypertension goal BP (blood pressure) < 140/80 Unspecified essential hypertension Abnormal stress test Other nonspecific abnormal cardiovascular system function study Malignant neoplasm of prostate (HCC) Malignant neoplasm of prostate [facility] Diagnosis Essential hypertension, benign- Primary Abnormal stress test Other nonspecific abnormal cardiovascular system function study Malignant neoplasm of prostate (HCC) Malignant neoplasm of prostate [facility] Diagnosis Prostate cancer (HCC)- Primary Malignant neoplasm of prostate Malignant neoplasm of prostate (HCC) Malignant neoplasm of prostate [facility] Diagnosis APPOINTMENT CANCELLED- Primary [facility] Diagnosis 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)- Primary Atrial fibrillation, unspecified type (HCC) Prostate cancer (HCC) Malignant neoplasm of prostate Hyperlipidemia, unspecified hyperlipidemia type Primary hypertension Unspecified essential hypertension Pre-operative cardiovascular examination [facility] Diagnosis 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) Atrial fibrillation, unspecified type (HCC) Prostate cancer (HCC) Malignant neoplasm of prostate Hyperlipidemia, unspecified hyperlipidemia type Primary hypertension Unspecified essential hypertension Pre-operative cardiovascular examination [facility] Diagnosis Pre-operative cardiovascular examination- Primary 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) Atrial fibrillation, unspecified type (HCC) Prostate cancer (HCC) Malignant neoplasm of prostate Hyperlipidemia, unspecified hyperlipidemia type Primary hypertension Unspecified essential hypertension 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) Atrial fibrillation, unspecified type (HCC) Prostate cancer (HCC) Malignant neoplasm of prostate Hyperlipidemia, unspecified hyperlipidemia type Primary hypertension Unspecified essential hypertension Pre-operative cardiovascular examination [facility] Diagnosis Pre-operative cardiovascular examination- Primary Atrial fibrillation, unspecified type (HCC) 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) Prostate cancer (HCC) Malignant neoplasm of prostate Hyperlipidemia, unspecified hyperlipidemia type Primary hypertension Unspecified essential hypertension 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) Atrial fibrillation, unspecified type (HCC) Prostate cancer (HCC) Malignant neoplasm of prostate Hyperlipidemia, unspecified hyperlipidemia type Primary hypertension Unspecified essential hypertension Pre-operative cardiovascular examination [facility] Diagnosis Malignant neoplasm of prostate (HCC)- Primary Malignant neoplasm of prostate 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) Atrial fibrillation, unspecified type (HCC) Prostate cancer (HCC) Malignant neoplasm of prostate Hyperlipidemia, unspecified hyperlipidemia type Primary hypertension Unspecified essential hypertension Pre-operative cardiovascular examination Malignant neoplasm of prostate (HCC) Malignant neoplasm of prostate [facility] Diagnosis Encounter for preoperative anesthesiology assessment for cardiac surgery- Primary 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) Atrial fibrillation, unspecified type (HCC) Prostate cancer (HCC) Malignant neoplasm of prostate Hyperlipidemia, unspecified hyperlipidemia type Primary hypertension Unspecified essential hypertension Pre-operative cardiovascular examination Malignant neoplasm of prostate (HCC) Malignant neoplasm of prostate [facility] Diagnosis Atherosclerosis- Primary Generalized and unspecified atherosclerosis 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) Atrial fibrillation, unspecified type (HCC) Prostate cancer (HCC) Malignant neoplasm of prostate Hyperlipidemia, unspecified hyperlipidemia type Primary hypertension Unspecified essential hypertension Pre-operative cardiovascular examination Malignant neoplasm of prostate (HCC) Malignant neoplasm of prostate documented in this encounter [facility]* Diagnosis Pre-op testing- Primary Preoperative examination, unspecified Discharge planning issues Encounters for unspecified administrative purpose 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) Atrial fibrillation, unspecified type (HCC) Prostate cancer (HCC) Malignant neoplasm of prostate Hyperlipidemia, unspecified hyperlipidemia type Primary hypertension Unspecified essential hypertension Pre-operative cardiovascular examination Malignant neoplasm of prostate (HCC) Malignant neoplasm of prostate documented in this encounter [facility] note* Diagnosis Typical atrial flutter (HCC)- Primary Atrial flutter 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) Atrial fibrillation, unspecified type (HCC) Prostate cancer (HCC) Malignant neoplasm of prostate Hyperlipidemia, unspecified hyperlipidemia type Primary hypertension Unspecified essential hypertension Pre-operative cardiovascular examination 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) Atrial fibrillation, unspecified type (HCC) Prostate cancer (HCC) Malignant neoplasm of prostate Hyperlipidemia, unspecified hyperlipidemia type Primary hypertension Unspecified essential hypertension Pre-operative cardiovascular examination Malignant neoplasm of prostate (HCC) Malignant neoplasm of prostate documented in this encounter [facility] note* Diagnosis S/P CABG (coronary artery bypass graft)- Primary Postsurgical aortocoronary bypass status S/P Maze operation for atrial fibrillation Other postprocedural status Malignant neoplasm of prostate (HCC) Malignant neoplasm of prostate [facility] Surgery follow-up Follow-up examination, following unspecified surgery Malignant neoplasm of prostate (HCC) Malignant neoplasm of prostate [facility] Diagnosis Sinus bradycardia- Primary Other specified cardiac dysrhythmias Malignant neoplasm of prostate (HCC) Malignant neoplasm of prostate [facility] Diagnosis Malignant neoplasm of prostate (HCC)- Primary Malignant neoplasm of prostate Malignant neoplasm of prostate (HCC) Malignant neoplasm of prostate [facility] Diagnosis Pre-op evaluation- Primary Preoperative examination, unspecified Malignant neoplasm of prostate (HCC) Malignant neoplasm of prostate Malignant neoplasm of prostate (HCC) Malignant neoplasm of prostate [facility] Diagnosis Renal calculi Calculus of kidney [facility] Diagnosis Prostate cancer (HCC)- Primary Malignant neoplasm of prostate [facility] Diagnosis Prostate cancer (HCC)- Primary Malignant neoplasm of prostate [facility] Diagnosis Screening for genitourinary condition Screening for other and unspecified genitourinary condition [facility]* Diagnosis Malignant neoplasm of prostate (HCC)- Primary Malignant neoplasm of prostate [facility]* Diagnosis Controlled type 2 diabetes mellitus without complication, without long-term current use of insulin (HCC)- Primary [facility] Diagnosis Prostate CA (HCC)- Primary Malignant neoplasm of prostate [facility]* Diagnosis Prostate cancer (HCC)- Primary Malignant neoplasm of prostate RICARDO (stress urinary incontinence), male Stress incontinence, male Erectile dysfunction following radical prostatectomy Impotence of organic origin [facility] Diagnosis Abnormal stress test- Primary Other nonspecific abnormal cardiovascular system function study Coronary artery disease involving [place] coronary artery of [place] heart without angina pectoris Elevated prostate specific antigen (PSA) Hypertension goal BP (blood pressure) < 140/80 Unspecified essential hypertension Prostate cancer (HCC) Malignant neoplasm of prostate Elevated PSA Elevated prostate specific antigen (PSA) Mixed hyperlipidemia [facility] Diagnosis Prostate cancer (HCC)- Primary Malignant neoplasm of prostate [facility] Diagnosis Urinary incontinence, unspecified type- Primary Malignant neoplasm of prostate (HCC) Malignant neoplasm of prostate Erectile dysfunction following radical prostatectomy Impotence of organic origin documented in this encounter [facility] note* Diagnosis Urinary incontinence, unspecified type- Primary Prostate cancer (HCC) Malignant neoplasm of prostate [facility] Diagnosis Urinary incontinence, unspecified type- Primary [facility]* Diagnosis Controlled type 2 diabetes mellitus without complication, without long-term current use of insulin (HCC)- Primary documented in this encounter [facility] note* Diagnosis Controlled type 2 diabetes mellitus without complication, without long-term current use of insulin (HCC)- Primary Essential hypertension, benign Mixed hyperlipidemia Hernia Hernia of unspecified site of abdominal cavity without mention of obstruction or gangrene Prostate cancer (HCC) Malignant neoplasm of prostate Paroxysmal atrial fibrillation (HCC) Atrial fibrillation [facility] Diagnosis Prostate cancer (HCC)- Primary Malignant neoplasm of prostate RICARDO (stress urinary incontinence), male Stress incontinence, male Muscle weakness Muscle weakness (generalized) documented in this encounter [facility] note* Diagnosis Prostate cancer (HCC)- Primary Malignant neoplasm of prostate [facility] Diagnosis Prostate cancer (HCC)- Primary Malignant neoplasm of prostate [facility] Diagnosis Prostate cancer (HCC)- Primary Malignant neoplasm of prostate [facility]* Diagnosis Prostate cancer (HCC)- Primary Malignant neoplasm of prostate [facility] Diagnosis RICARDO (stress urinary incontinence), male- Primary Stress incontinence, male Prostate cancer (HCC) Malignant neoplasm of prostate [facility] Diagnosis RICARDO (stress urinary incontinence), male- Primary Stress incontinence, male Prostate cancer (HCC) Malignant neoplasm of prostate [facility] Diagnosis Prostate cancer (HCC)- Primary Malignant neoplasm of prostate [facility] Diagnosis Prostate cancer (HCC)- Primary Malignant neoplasm of prostate [facility] Diagnosis Malignant neoplasm of prostate (HCC)- Primary Malignant neoplasm of prostate [facility] Diagnosis Prostate cancer (HCC)- Primary Malignant neoplasm of prostate [facility] Diagnosis Controlled type 2 diabetes mellitus without complication, without long-term current use of insulin (HCC) documented in [facility]* Diagnosis Prostate cancer (HCC)- Primary Malignant neoplasm of prostate [facility] Hospital note* Diagnosis Prostate cancer (HCC)- Primary Malignant neoplasm of prostate documented in this encounter [facility] note* Diagnosis Prostate cancer (HCC)- Primary Malignant neoplasm of prostate Chronic bronchitis, unspecified chronic bronchitis type (HCC) documented in this encounter [facility] note* Diagnosis Radiotherapy follow-up- Primary Radiotherapy follow-up examination Prostate cancer (HCC) Malignant neoplasm of prostate documented in this encounter [facility] note* Diagnosis Prostate CA (HCC)- Primary Malignant neoplasm of prostate documented in this encounter [facility] note* Diagnosis Prostate cancer (HCC)- Primary Malignant neoplasm of prostate documented in this encounter [facility] note* Diagnosis Onset Date Resolution Status Lumbar radiculopathy acute Spondylolisthesis, lumbar region acute Cervical myelopathy acute Spinal stenosis of lumbar re gion with neurogenic claudication acute Spondylolisthesis, lumbar region acute [facility] Work Phone: Evaluation note* Diagnosis Prostate cancer (HCC)- Primary Malignant neoplasm of prostate documented in this encounter [facility] note* Diagnosis Prostate cancer (HCC) Malignant neoplasm of prostate documented in this encounter [facility] note* Diagnosis Prostate CA (HCC)- Primary Malignant neoplasm of prostate [facility] Discharge instructions Additional Instructions Please ensure the ice, perform gentle stretching. Please return [facility] any worsening [facility] Work Phone: Reason for referral (narrative)* Outpatient Procedure (Routine) - Pending Review Specialty Diagnoses / Procedures Referred By Contac t Referred To Contact [facility] Diagnoses Essential hypertension, benign Coronary artery disease involving pilot point heart without angina pectoris, unspecified vessel or lesion type Mixed hyperlipidemia Controlled type 2 diabetes mellitus without complication, without long-term current use of insulin (HCC) Procedures ECG COMPLETE ECG ROUTINE ECG W/LEAST 12 LDS W/I&R Marie Bautista MD [address] [place] [address] [address] Referral ID Status Reason Start Date Expiration Date Visits Requested Visits Authorized [id number] Pending Review Auto-Generat ed Referral 08/25/2021 08/25/2022 1 1 [facility] for referral (narrative)* Outpatient Procedure (Routine) - Authorized Specialty Diagnoses / Procedures Referred By Contac t Referred To [facility] Diagnoses Essential hypertension, benign Procedures ECG COMPLETE ECG ROUTINE ECG W/LEAST 12 LDS W/[place] [address] [place] [address] [address] Referral ID Status Reason Start Date Expiration Date Visits Requested Visits Authorized [id number] Authorized Auto-Generat ed Referral 08/28/2021 08/28/2022 1 1 [facility] for referral (narrative)* Outpatient Procedure (Routine) - Pending Review Specialty Diagnoses / Procedures [facility] Diagnoses 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) Atrial fibrillation, unspecified type (HCC) Prostate cancer (HCC) Hyperlipidemia, unspecified hyperlipidemia type Primary hypertension Pre-operative cardiovascular examination Procedures LUNG DIFFUSION CAPACITY (DLCO) DIFFUSING CAPACITY Mauricio Riley MD [address] [place] [address] [facility] [address] [place] [id number] Referral ID Status Reason Start Date Expiration Date Visits Requested Visits Authorized [id number] Pending Review Auto-Generat ed Referral 09/14/2021 10/14/2022 1 1 * Outpatient Procedure (Routine) - Pending Review Specialty Diagnoses / Procedures [facility] Diagnoses 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) Atrial fibrillation, unspecified type (HCC) Prostate cancer (HCC) Hyperlipidemia, unspecified hyperlipidemia type Primary hypertension Pre-operative cardiovascular examination Procedures SPIROMETRY BASELINE ONLY SPMTRY W/VC EXPIRATORY ROGELIO W/[place] [address] [place], [place] [id number] [facility] [address] [place] [address] Referral ID Status Reason Start Date Expiration Date Visits Requested Visits Authorized [id number] Pending Review Auto-Generat ed Referral 09/14/2021 10/14/2022 1 1 * Outpatient Procedure (Routine) - Pending Review Specialty Diagnoses / Procedures Referred By Mendoza rene Referred To [facility] Diagnoses 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) Atrial fibrillation, unspecified type (HCC) Prostate cancer (HCC) Hyperlipidemia, unspecified hyperlipidemia type Primary hypertension Pre-operative cardiovascular examination Procedures ECHO ECHO TTHRC R-T 2D W/WOM-MODE COMPL SPEC&COLR D Mauricio Riley MD [address] [place] [address] [facility] [address] [address] Referral ID Status Reason Start Date Expiration Date Visits Requested Visits Authorized [id number] Pending Review Auto-Generat ed Referral 09/14/2021 09/14/2022 1 1 * Consult, Test, Treat (Routine) - Pending Review Specialty Diagnoses / Procedures Referred By Mendoza rene Referred To Contact Cardiac Surg Diagnoses 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) Atrial fibrillation, unspecified type (HCC) Prostate cancer (HCC) Hyperlipidemia, unspecified hyperlipidemia type Primary hypertension Pre-operative cardiovascular examination Procedures CARDIOTHORACIC PREOP EVALUATION OFFICE/OUTPATIENT NEW HIGH MDM 60-74 MINUTES Mauricio Riley MD [address] [place] [address] Referral ID Status Reason Start Date Expiration Date Visits Requested Visits Authorized [id number] Pending Review PCP Requested Referral 09/14/2021 09/14/2022 1 1 [facility] for referral (narrative)* Outpatient Procedure (Routine) - Authorized Specialty Diagnoses / Procedures Referred By Contac t Referred To [facility] Diagnoses Sinus bradycardia Procedures ECG COMPLETE ECG ROUTINE ECG W/LEAST 12 LDS W/[place] [address] [place] [address] [facility] [place] [address] Referral ID Status Reason Start Date Expiration Date Visits Requested Visits Authorized [id number] Authorized Auto-Generat ed Referral 11/11/2021 11/11/2022 1 1 T [facility] for referral (narrative)* Diagnostic Procedure Only (Routine) - New Request Specialty Diagnoses / Procedures Referred By Contac t Referred To Contact [facility] Diagnoses Prostate cancer (HCC) Procedures NM PET/CT PROSTATE WHOLE BODY IMAGING PET IMAGING CT ATTENUATION SKULL BASE MID-THIGH Marie Beavers MD [address] [place] [address] [facility] [address] [place] [address] Referral ID Status Reason Start Date Expiration Date Visits Requested Visits Authorized [id number] New Request Auto-Generat ed Referral 05/25/2024 06/24/2025 1 1 [facility] for referral (narrative)No reason for referral information availableWOhio[facility] Work Phone: Reason for visit Narrative* Diagnostic Procedure Only (Routine) - Closed Specialty Diagnoses / Procedures Referred By Contac t Referred To Contact [facility] Diagnoses Prostate cancer (HCC) Procedures NM PET/CT PROSTATE WHOLE BODY IMAGING PET IMAGING CT ATTENUATION SKULL BASE MID-THIGH GALLIUM GA-68 GOZETOTIDE, DIG (LOCAMETZ), 1 [facility] Marie Beavers MD [address] [place] [address] [facility] [address] [place] [address] Referral ID Status Reason Start Date Expiration Date V isits Requested Visits Authorized [id number] Closed Auto-Generate d Referral 05/25/2024 09/04/2024 1 1 [facility] Summary Purpose Family History No Family History Records Found Relationship Condition Age at Onset Recorded Date/T steve mother Diabetes mellitus Unknown Cardiac disease Unknown father Coronary artery disease Unknown sister Malignant neoplasm Unknown Advance Directives No Advanced Directives Records Found Advance Directive Response Recorded Date/ Time Advance Directives No September 19, 2020 12:15pm Living Will No September 19, 2020 12 :15pm Power of Property Management Specialist No September 19, 2020 12:15pm Documents on File Type Date Recorded Patient Resident Assistant Expl anation Advance Directive(s) 08/10/2021 1:01 PM Advance Directive(s) 10/02/2018 9:12 AM Documents on File Type Date Recorded Patient Resident Assistant Expl anation Advance Directive(s) 08/10/2021 1:01 PM Advance Directive(s) 10/02/2018 9:12 AM Documents on File Type Date Recorded Patient Resident Assistant Expl anation Advance Directive(s) 08/28/2021 9:04 AM Advance Directive(s) 08/10/2021 1:01 PM Advance Directive(s) 10/02/2018 9:12 AM Documents on File Type Date Recorded Patient Resident Assistant Expl anation Advance Directive(s) 08/28/2021 9:04 AM Advance Directive(s) 08/10/2021 1:01 PM Advance Directive(s) 10/02/2018 9:12 AM Documents on File Type Date Recorded Patient Resident Assistant Expl anation Advance Directive(s) 09/17/2021 9:08 AM Advance Directive(s) 08/28/2021 9:04 AM Advance Directive(s) 08/10/2021 1:01 PM Advance Directive(s) 10/02/2018 9:12 AM Documents on File Type Date Recorded Patient Resident Assistant Expl anation Advance Directive(s) 09/17/2021 9:08 AM Advance Directive(s) 08/28/2021 9:04 AM Advance Directive(s) 08/10/2021 1:01 PM Advance Directive(s) 10/02/2018 9:12 AM Documents on File Type Date Recorded Patient Resident Assistant Expl anation Advance Directive(s) 09/29/2021 10:40 AM Advance Directive(s) 09/28/2021 6:40 PM Advance Directive(s) 09/17/2021 9:08 AM Advance Directive(s) 08/28/2021 9:04 AM Advance Directive(s) 08/10/2021 1:01 PM Advance Directive(s) 10/02/2018 9:12 AM Documents on File Type Date Recorded Patient Resident Assistant Expl anation Advance Directive(s) 09/29/2021 10:40 AM Advance Directive(s) 09/28/2021 6:40 PM Advance Directive(s) 09/17/2021 9:08 AM Advance Directive(s) 08/28/2021 9:04 AM Advance Directive(s) 08/10/2021 1:01 PM Advance Directive(s) 10/02/2018 9:12 AM Advance Directive Response Recorded Date/ Time Advance Directives on File No Decus 2021 2:22pm Advance Directives No September 19, 2020 12:15pm Living Will No December 23 2 2:22pm Power of Property Management Specialist No December 23, 2 022 2:22pm Advance Directive Response Recorded Date/ Time Advance Directives No September 19, 2020 12:15pm Living Will No December 23 2 2:22pm Power of Property Management Specialist No December 23, 2 022 2:22pm Advance Directive Response Recorded Date/ Time Advance Directives No September 19, 2020 11:15am Living Will No April 04, 2 023 4:04pm Power of Property Management Specialist No April 04, 2023 4:04pm Advance Directive Response Recorded Date/ Time Advance Directives No August 07, 2 024 1:20pm Living Will No August 08, 2023 1:20pm Power of Property Management Specialist No August 07 1:20pm Advance Directive Response Recorded Date/ Time Living Will No May 03, 2 024 12:13pm Do you have a Healthcare Power of Property Management Specialist? No May 03, 2024 12:13pm Advance Directives No April 12:13pm Chief Complaint and Reason for Visit Chief Complaint INT LABS 6 M FU Reason for Visit Preop cardiovascular exam Essential hypertension Hyperlipidemia Paroxysmal atrial fibrillation History of coronary artery stent placement Chief Complaint INT LABS 6 M FU cad cad Reason for Visit Preop cardiovascular exam Essential hypertension Hyperlipidemia Paroxysmal atrial fibrillation History of coronary artery stent placement Chief Complaint INT LABS 6 M FU cad cad ABN STRESS TEST Reason for Visit Preop cardiovascular exam Essential hypertension Hyperlipidemia Paroxysmal atrial fibrillation History of coronary artery stent placement Chief Complaint Amb Documentation Amb Documentation HX OF AFIB DIZZINESS FU FROM [facility] S/P CABG S/P CABG Reason for Visit H/O coronary artery bypass surgery Prostate cancer Atherosclerosis of coronary artery of pilot point heart without angina pectoris Essential hypertension Hyperlipidemia Paroxysmal atrial fibrillation History of coronary artery stent placement Chief Complaint Amb Documentation HX OF AFIB DIZZINESS FU FROM [facility] S/P CABG S/P CABG Reason for Visit H/O coronary artery bypass surgery Prostate cancer Atherosclerosis of coronary artery of pilot point heart without angina pectoris Essential hypertension Hyperlipidemia Paroxysmal atrial fibrillation History of coronary artery stent placement Chief Complaint S/P CABG S/P CABG 3 M FU S/P CABG S/P CABG Reason for Visit H/O coronary artery bypass surgery Atherosclerosis of coronary artery of pilot point heart without angina pectoris Essential hypertension Hyperlipidemia Paroxysmal atrial fibrillation Prostate cancer History of coronary artery stent placement Chief Complaint EORDERS 1 Y FU Reason for Visit H/O coronary artery bypass surgery Essential hypertension Hyperlipidemia Paroxysmal atrial fibrillation History of coronary artery stent placement Chief Complaint EORDERS 1 Y FU BACK PAIN Reason for Visit H/O coronary artery bypass surgery Essential hypertension Hyperlipidemia Paroxysmal atrial fibrillation History of coronary artery stent placement Chief Complaint LUMBAR SPINE Rm 8 LUMBAR RAD LUMBAR SPINE Reason for Visit Lumbar radiculopathy Spondylolisthesis, lumbar region Cervical myelopathy Spinal stenosis of lumbar region with neurogenic claudication Spondylolisthesis, lumbar region Chief Complaint LUMBAR SPINE Rm 8 LUMBAR RAD LUMBAR SPINE E ORDERS Reason for Visit Lumbar radiculopathy Spondylolisthesis, lumbar region Cervical myelopathy Spinal stenosis of lumbar region with neurogenic claudication Spondylolisthesis, lumbar region Chief Complaint Admit Date ABN STRESS TEST May 03, 2024 10:27am Reason for Visit Admit Date Abnormal stress test May 03, 2024 10:27am H/O coronary artery bypass surgery Decem cielo 2023 10:27am Dilated aortic root May 03, 2024 10:27am Essential hypertension May 03 10:27am Hyperlipidemia May 03, 2024 10:27am Paroxysmal atrial fibrillation May 03, 2024 10:27am History of coronary artery stent placeme nt May 03, 2024 10:27am Reason for Referral Specialty Diagnoses / Procedures Referred By Contac t Referred To Contact MR IMAGING Diagnoses Secondary malignant neoplasm of brain (HCC) Procedures MRI THORACIC SPINE WO/W IVCON MRI SPINAL CANAL THORACIC W/O & W/CONTR MATRL Diamond Damon MD [address] [place] [address] Mr Imaging Referral ID Status Reason Start Date Expiration Date V isits Requested Visits Authorized [id number] Closed Auto-Generate d Referral 09/03/2021 10/03/2022 1 1 Specialty Diagnoses / Procedures Referred By Contac t Referred To Contact Diagnoses Malignant neoplasm of prostate (HCC) Procedures REFER TO PACC - PRE ANESTHESIA CONSULTATION CLINIC OFFICE/OUTPATIENT NEW HIGH MDM 60-74 MINUTES Diamond Damon MD [address] [place] [address] Referral ID Status Reason Start Date Expiration Date Visits Requested Visits Authorized [id number] Pending Review PCP Requested Referral 09/29/2021 09/28/2022 1 1 Specialty Diagnoses / Procedures Referred By Contac t Referred To Contact [facility] Diagnoses Prostate cancer (HCC) Procedures PT REHAB FOLLOW UP ORDER THERAPEUTIC EXERCISES RE, EA 15 MIN. Jacquelyn Heller, PT [address] [place] [address] [facility] [place] [address] [place] [address] Referral ID Status Reason Start Date Expiration Date Visits Requested Visits Authorized [id number] Pending Review PCP Requested Referral Auto-Generate d Referral 06/04/2022 09/02/2022 1 1 Specialty Diagnoses / Procedures Referred By Contac t Referred To Contact [facility] Diagnoses Prostate cancer (HCC) Procedures CONSULT TO PHYSICAL THERAPY PHYSICAL THERAPY EVALUATION HIGH COMPLEX 45 MINS Quentin Hampton MD [address] [place] [address] [facility] [address] [address] Referral ID Status Reason Start Date Expiration Date Visits Requested Visits Authorized [id number] Pending Review Auto-Generat ed Referral 07/02/2022 06/01/2023 1 1 Specialty Diagnoses / Procedures Referred By Contac t Referred To Contact Diagnoses Prostate cancer (HCC) Procedures CT SIM PLANNING RADIATION ONCOLOGY THER RAD SIMULAJ-AIDED FIELD SETTING COMPLEX Artur Mi MD, [address] [place] [address] Referral ID Status Reason Start Date Expiration Date Visits Requested Visits Authorized [id number] Pending Review PCP Requested Referral 08/03/2022 10/31/2022 1 1 Specialty Diagnoses / Procedures Referred By Contac t Referred To Contact [facility] Diagnoses RICARDO (stress urinary incontinence), male Prostate cancer (HCC) Procedures PT REHAB FOLLOW UP ORDER THERAPEUTIC EXERCISES RE, EA 15 MIN. Jacquelyn Heller, PT [address] [place] [address] [facility] [address] [address] Referral ID Status Reason Start Date Expiration Date Visits Requested Visits Authorized [id number] Pending Review PCP Requested Referral Auto-Generate d Referral 08/03/2022 11/01/2022 1 1 Medications Administered Section Active Administered Medications - up to 3 most recent administrations Medication Order MAR Action Action Date Dose Rate Site leuprolide 30 mg injection (ELIGARD) 30 mg, SUBCUTANEOUS, EVERY 4 MONTHS, First dose on Tue09/08/21 at 1530, Until Discontinued, Hazardous Chemotherapy Drug: Use appropriate PPE. Given 08/24/2022 2:10 PM EDT 30 mg A bdomen, LLQ Given 09/08/2021 3:30 PM EDT 30 mg Ab domen, RUQ Additional Source Comments (unrecognized sect ion and content) No Status Records FoundNo Status Records FoundNo Status Records FoundNo Status Records FoundNo Status Records FoundNo Status Records Found INFORMATION SOURCE (unrecogn ized section and content) DATE CREATED AUTHOR 11/04/2017 [facility] DATE CREATED AUTHOR AUTHOR'S ORGANIZ ATION 11/04/2017 [facility] DATE CREATED AUTHOR AUTHOR'S ORGANIZ ATION 11/08/2017 [facility] DATE CREATED AUTHOR AUTHOR'S ORGANIZ ATION 08/22/2024 [facility] DATE CREATED AUTHOR AUTHOR'S ORGANIZ ATION 09/02/2024 [facility] DATE CREATED AUTHOR AUTHOR'S ORGANIZ ATION 11/03/2024 [facility] Goals (unrecognized section and content) Goals may be documented in a n alternate sectionGoals may be documented in an alternate sectionGoals may be documented in an alternate sectionGoals may be documented in an alternate sectionGoals may be documented in an alternate sectionGoals may be documented in an alternate sectionGoals may be documented in an alternate sectionGoals may be documented in an alternate sectionGoals may be documented in an alternate sectionGoals may be documented in an alternate sectionGoals may be documented in an alternate sectionGoals may be documented in an alternate section No data available for this section Source Comments (unrecognize d section and content) In the event this informatio n is protected by the Federal Confidentiality of Alcohol and Drug Abuse Patient Records regulations: The Federal rules restrict any use of the information to criminally investigate or prosecute any alcohol or drug abuse patient.[facility] Hospital[facility] the event this information is protected by the Federal Confidentiality of Alcohol and Drug Abuse Patient Records regulations: The Federal rules restrict any use of the information to criminally investigate or prosecute any alcohol or drug abuse patient.[facility] HospitalIn the event this information is protected by the Federal Confidentiality of Alcohol and Drug Abuse Patient Records regulations: The Federal rules restrict any use of the information to criminally investigate or prosecute any alcohol or drug abuse patient.[facility] HospitalIn the event this information is protected by the Federal Confidentiality of Alcohol and Drug Abuse Patient Records regulations: The Federal rules restrict any use of the information to criminally investigate or prosecute any alcohol or drug abuse patient.[facility] HospitalIn the event this information is protected by the Federal Confidentiality of Alcohol and Drug Abuse Patient Records regulations: The Federal rules restrict any use of the information to criminally investigate or prosecute any alcohol or drug abuse patient.[facility] HospitalIn the event this information is protected by the Federal Confidentiality of Alcohol and Drug Abuse Patient Records regulations: The Federal rules restrict any use of the information to criminally investigate or prosecute any alcohol or drug abuse patient.[facility] HospitalIn the event this information is protected by the Federal Confidentiality of Alcohol and Drug Abuse Patient Records regulations: The Federal rules restrict any use of the information to criminally investigate or prosecute any alcohol or drug abuse patient.[facility] HospitalIn the event this information is protected by the Federal Confidentiality of Alcohol and Drug Abuse Patient Records regulations: The Federal rules restrict any use of the information to criminally investigate or prosecute any alcohol or drug abuse patient.[facility] HospitalIn the event this information is protected by the Federal Confidentiality of Alcohol and Drug Abuse Patient Records regulations: The Federal rules restrict any use of the information to criminally investigate or prosecute any alcohol or drug abuse patient.[facility] HospitalIn the event this information is protected by the Federal Confidentiality of Alcohol and Drug Abuse Patient Records regulations: The Federal rules restrict any use of the information to criminally investigate or prosecute any alcohol or drug abuse patient.[facility] HospitalIn the event this information is protected by the Federal Confidentiality of Alcohol and Drug Abuse Patient Records regulations: The Federal rules restrict any use of the information to criminally investigate or prosecute any alcohol or drug abuse patient.[facility] HospitalIn the event this information is protected by the Federal Confidentiality of Alcohol and Drug Abuse Patient Records regulations: The Federal rules restrict any use of the information to criminally investigate or prosecute any alcohol or drug abuse patient.[facility] HospitalIn the event this information is protected by the Federal Confidentiality of Alcohol and Drug Abuse Patient Records regulations: The Federal rules restrict any use of the information to criminally investigate or prosecute any alcohol or drug abuse patient.[facility] HospitalIn the event this information is protected by the Federal Confidentiality of Alcohol and Drug Abuse Patient Records regulations: The Federal rules restrict any use of the information to criminally investigate or prosecute any alcohol or drug abuse patient.[facility] HospitalIn the event this information is protected by the Federal Confidentiality of Alcohol and Drug Abuse Patient Records regulations: The Federal rules restrict any use of the information to criminally investigate or prosecute any alcohol or drug abuse patient.[facility] HospitalIn the event this information is protected by the Federal Confidentiality of Alcohol and Drug Abuse Patient Records regulations: The Federal rules restrict any use of the information to criminally investigate or prosecute any alcohol or drug abuse patient.[facility] HospitalIn the event this information is protected by the Federal Confidentiality of Alcohol and Drug Abuse Patient Records regulations: The Federal rules restrict any use of the information to criminally investigate or prosecute any alcohol or drug abuse patient.[facility] HospitalIn the event this information is protected by the Federal Confidentiality of Alcohol and Drug Abuse Patient Records regulations: The Federal rules restrict any use of the information to criminally investigate or prosecute any alcohol or drug abuse patient.[facility] HospitalIn the event this information is protected by the Federal Confidentiality of Alcohol and Drug Abuse Patient Records regulations: The Federal rules restrict any use of the information to criminally investigate or prosecute any alcohol or drug abuse patient.[facility] HospitalIn the event this information is protected by the Federal Confidentiality of Alcohol and Drug Abuse Patient Records regulations: The Federal rules restrict any use of the information to criminally investigate or prosecute any alcohol or drug abuse patient.[facility] HospitalIn the event this information is protected by the Federal Confidentiality of Alcohol and Drug Abuse Patient Records regulations: The Federal rules restrict any use of the information to criminally investigate or prosecute any alcohol or drug abuse patient.[facility] HospitalIn the event this information is protected by the Federal Confidentiality of Alcohol and Drug Abuse Patient Records regulations: The Federal rules restrict any use of the information to criminally investigate or prosecute any alcohol or drug abuse patient.[facility] HospitalIn the event this information is protected by the Federal Confidentiality of Alcohol and Drug Abuse Patient Records regulations: The Federal rules restrict any use of the information to criminally investigate or prosecute any alcohol or drug abuse patient.[facility] HospitalIn the event this information is protected by the Federal Confidentiality of Alcohol and Drug Abuse Patient Records regulations: The Federal rules restrict any use of the information to criminally investigate or prosecute any alcohol or drug abuse patient.[facility] HospitalIn the event this information is protected by the Federal Confidentiality of Alcohol and Drug Abuse Patient Records regulations: The Federal rules restrict any use of the information to criminally investigate or prosecute any alcohol or drug abuse patient.[facility] HospitalIn the event this information is protected by the Federal Confidentiality of Alcohol and Drug Abuse Patient Records regulations: The Federal rules restrict any use of the information to criminally investigate or prosecute any alcohol or drug abuse patient.[facility] HospitalIn the event this information is protected by the Federal Confidentiality of Alcohol and Drug Abuse Patient Records regulations: The Federal rules restrict any use of the information to criminally investigate or prosecute any alcohol or drug abuse patient.[facility] HospitalIn the event this information is protected by the Federal Confidentiality of Alcohol and Drug Abuse Patient Records regulations: The Federal rules restrict any use of the information to criminally investigate or prosecute any alcohol or drug abuse patient.[facility] HospitalIn the event this information is protected by the Federal Confidentiality of Alcohol and Drug Abuse Patient Records regulations: The Federal rules restrict any use of the information to criminally investigate or prosecute any alcohol or drug abuse patient.[facility] HospitalIn the event this information is protected by the Federal Confidentiality of Alcohol and Drug Abuse Patient Records regulations: The Federal rules restrict any use of the information to criminally investigate or prosecute any alcohol or drug abuse patient.[facility] HospitalIn the event this information is protected by the Federal Confidentiality of Alcohol and Drug Abuse Patient Records regulations: The Federal rules restrict any use of the information to criminally investigate or prosecute any alcohol or drug abuse patient.[facility] HospitalIn the event this information is protected by the Federal Confidentiality of Alcohol and Drug Abuse Patient Records regulations: The Federal rules restrict any use of the information to criminally investigate or prosecute any alcohol or drug abuse patient.[facility] HospitalIn the event this information is protected by the Federal Confidentiality of Alcohol and Drug Abuse Patient Records regulations: The Federal rules restrict any use of the information to criminally investigate or prosecute any alcohol or drug abuse patient.[facility] HospitalIn the event this information is protected by the Federal Confidentiality of Alcohol and Drug Abuse Patient Records regulations: The Federal rules restrict any use of the information to criminally investigate or prosecute any alcohol or drug abuse patient.[facility] HospitalIn the event this information is protected by the Federal Confidentiality of Alcohol and Drug Abuse Patient Records regulations: The Federal rules restrict any use of the information to criminally investigate or prosecute any alcohol or drug abuse patient.[facility] HospitalIn the event this information is protected by the Federal Confidentiality of Alcohol and Drug Abuse Patient Records regulations: The Federal rules restrict any use of the information to criminally investigate or prosecute any alcohol or drug abuse patient.[facility] HospitalIn the event this information is protected by the Federal Confidentiality of Alcohol and Drug Abuse Patient Records regulations: The Federal rules restrict any use of the information to criminally investigate or prosecute any alcohol or drug abuse patient.[facility] HospitalIn the event this information is protected by the Federal Confidentiality of Alcohol and Drug Abuse Patient Records regulations: The Federal rules restrict any use of the information to criminally investigate or prosecute any alcohol or drug abuse patient.[facility] HospitalIn the event this information is protected by the Federal Confidentiality of Alcohol and Drug Abuse Patient Records regulations: The Federal rules restrict any use of the information to criminally investigate or prosecute any alcohol or drug abuse patient.[facility] HospitalIn the event this information is protected by the Federal Confidentiality of Alcohol and Drug Abuse Patient Records regulations: The Federal rules restrict any use of the information to criminally investigate or prosecute any alcohol or drug abuse patient.[facility] HospitalIn the event this information is protected by the Federal Confidentiality of Alcohol and Drug Abuse Patient Records regulations: The Federal rules restrict any use of the information to criminally investigate or prosecute any alcohol or drug abuse patient.[facility] the event this information is protected by the Federal Confidentiality of Alcohol and Drug Abuse Patient Records regulations: The Federal rules restrict any use of the information to criminally investigate or prosecute any alcohol or drug abuse patient.[facility] HospitalIn the event this information is protected by the Federal Confidentiality of Alcohol and Drug Abuse Patient Records regulations: The Federal rules restrict any use of the information to criminally investigate or prosecute any alcohol or drug abuse patient.[facility] HospitalIn the event this information is protected by the Federal Confidentiality of Alcohol and Drug Abuse Patient Records regulations: The Federal rules restrict any use of the information to criminally investigate or prosecute any alcohol or drug abuse patient.[facility] HospitalIn the event this information is protected by the Federal Confidentiality of Alcohol and Drug Abuse Patient Records regulations: The Federal rules restrict any use of the information to criminally investigate or prosecute any alcohol or drug abuse patient.[facility] HospitalIn the event this information is protected by the Federal Confidentiality of Alcohol and Drug Abuse Patient Records regulations: The Federal rules restrict any use of the information to criminally investigate or prosecute any alcohol or drug abuse patient.[facility] HospitalIn the event this information is protected by the Federal Confidentiality of Alcohol and Drug Abuse Patient Records regulations: The Federal rules restrict any use of the information to criminally investigate or prosecute any alcohol or drug abuse patient.[facility] HospitalIn the event this information is protected by the Federal Confidentiality of Alcohol and Drug Abuse Patient Records regulations: The Federal rules restrict any use of the information to criminally investigate or prosecute any alcohol or drug abuse patient.[facility] HospitalIn the event this information is protected by the Federal Confidentiality of Alcohol and Drug Abuse Patient Records regulations: The Federal rules restrict any use of the information to criminally investigate or prosecute any alcohol or drug abuse patient.[facility] HospitalIn the event this information is protected by the Federal Confidentiality of Alcohol and Drug Abuse Patient Records regulations: The Federal rules restrict any use of the information to criminally investigate or prosecute any alcohol or drug abuse patient.[facility] HospitalIn the event this information is protected by the Federal Confidentiality of Alcohol and Drug Abuse Patient Records regulations: The Federal rules restrict any use of the information to criminally investigate or prosecute any alcohol or drug abuse patient.[facility] HospitalIn the event this information is protected by the Federal Confidentiality of Alcohol and Drug Abuse Patient Records regulations: The Federal rules restrict any use of the information to criminally investigate or prosecute any alcohol or drug abuse patient.[facility] HospitalIn the event this information is protected by the Federal Confidentiality of Alcohol and Drug Abuse Patient Records regulations: The Federal rules restrict any use of the information to criminally investigate or prosecute any alcohol or drug abuse patient.[facility] HospitalIn the event this information is protected by the Federal Confidentiality of Alcohol and Drug Abuse Patient Records regulations: The Federal rules restrict any use of the information to criminally investigate or prosecute any alcohol or drug abuse patient.[facility] HospitalIn the event this information is protected by the Federal Confidentiality of Alcohol and Drug Abuse Patient Records regulations: The Federal rules restrict any use of the information to criminally investigate or prosecute any alcohol or drug abuse patient.[facility] HospitalIn the event this information is protected by the Federal Confidentiality of Alcohol and Drug Abuse Patient Records regulations: The Federal rules restrict any use of the information to criminally investigate or prosecute any alcohol or drug abuse patient.[facility] HospitalIn the event this information is protected by the Federal Confidentiality of Alcohol and Drug Abuse Patient Records regulations: The Federal rules restrict any use of the information to criminally investigate or prosecute any alcohol or drug abuse patient.[facility] HospitalIn the event this information is protected by the Federal Confidentiality of Alcohol and Drug Abuse Patient Records regulations: The Federal rules restrict any use of the information to criminally investigate or prosecute any alcohol or drug abuse patient.[facility] HospitalIn the event this information is protected by the Federal Confidentiality of Alcohol and Drug Abuse Patient Records regulations: The Federal rules restrict any use of the information to criminally investigate or prosecute any alcohol or drug abuse patient.[facility] HospitalIn the event this information is protected by the Federal Confidentiality of Alcohol and Drug Abuse Patient Records regulations: The Federal rules restrict any use of the information to criminally investigate or prosecute any alcohol or drug abuse patient.[facility] HospitalIn the event this information is protected by the Federal Confidentiality of Alcohol and Drug Abuse Patient Records regulations: The Federal rules restrict any use of the information to criminally investigate or prosecute any alcohol or drug abuse patient.[facility] HospitalIn the event this information is protected by the Federal Confidentiality of Alcohol and Drug Abuse Patient Records regulations: The Federal rules restrict any use of the information to criminally investigate or prosecute any alcohol or drug abuse patient.[facility] HospitalIn the event this information is protected by the Federal Confidentiality of Alcohol and Drug Abuse Patient Records regulations: The Federal rules restrict any use of the information to criminally investigate or prosecute any alcohol or drug abuse patient.[facility] HospitalIn the event this information is protected by the Federal Confidentiality of Alcohol and Drug Abuse Patient Records regulations: The Federal rules restrict any use of the information to criminally investigate or prosecute any alcohol or drug abuse patient.[facility] HospitalIn the event this information is protected by the Federal Confidentiality of Alcohol and Drug Abuse Patient Records regulations: The Federal rules restrict any use of the information to criminally investigate or prosecute any alcohol or drug abuse patient.[facility] HospitalIn the event this information is protected by the Federal Confidentiality of Alcohol and Drug Abuse Patient Records regulations: The Federal rules restrict any use of the information to criminally investigate or prosecute any alcohol or drug abuse patient.[facility] HospitalIn the event this information is protected by the Federal Confidentiality of Alcohol and Drug Abuse Patient Records regulations: The Federal rules restrict any use of the information to criminally investigate or prosecute any alcohol or drug abuse patient.[facility] HospitalIn the event this information is protected by the Federal Confidentiality of Alcohol and Drug Abuse Patient Records regulations: The Federal rules restrict any use of the information to criminally investigate or prosecute any alcohol or drug abuse patient.[facility] HospitalIn the event this information is protected by the Federal Confidentiality of Alcohol and Drug Abuse Patient Records regulations: The Federal rules restrict any use of the information to criminally investigate or prosecute any alcohol or drug abuse patient.[facility] HospitalIn the event this information is protected by the Federal Confidentiality of Alcohol and Drug Abuse Patient Records regulations: The Federal rules restrict any use of the information to criminally investigate or prosecute any alcohol or drug abuse patient.[facility] HospitalIn the event this information is protected by the Federal Confidentiality of Alcohol and Drug Abuse Patient Records regulations: The Federal rules restrict any use of the information to criminally investigate or prosecute any alcohol or drug abuse patient.[facility] HospitalIn the event this information is protected by the Federal Confidentiality of Alcohol and Drug Abuse Patient Records regulations: The Federal rules restrict any use of the information to criminally investigate or prosecute any alcohol or drug abuse patient.[facility] HospitalIn the event this information is protected by the Federal Confidentiality of Alcohol and Drug Abuse Patient Records regulations: The Federal rules restrict any use of the information to criminally investigate or prosecute any alcohol or drug abuse patient.[facility] HospitalIn the event this information is protected by the Federal Confidentiality of Alcohol and Drug Abuse Patient Records regulations: The Federal rules restrict any use of the information to criminally investigate or prosecute any alcohol or drug abuse patient.[facility] HospitalIn the event this information is protected by the Federal Confidentiality of Alcohol and Drug Abuse Patient Records regulations: The Federal rules restrict any use of the information to criminally investigate or prosecute any alcohol or drug abuse patient.[facility] HospitalIn the event this information is protected by the Federal Confidentiality of Alcohol and Drug Abuse Patient Records regulations: The Federal rules restrict any use of the information to criminally investigate or prosecute any alcohol or drug abuse patient.[facility] HospitalIn the event this information is protected by the Federal Confidentiality of Alcohol and Drug Abuse Patient Records regulations: The Federal rules restrict any use of the information to criminally investigate or prosecute any alcohol or drug abuse patient.[facility] HospitalIn the event this information is protected by the Federal Confidentiality of Alcohol and Drug Abuse Patient Records regulations: The Federal rules restrict any use of the information to criminally investigate or prosecute any alcohol or drug abuse patient.[facility] HospitalIn the event this information is protected by the Federal Confidentiality of Alcohol and Drug Abuse Patient Records regulations: The Federal rules restrict any use of the information to criminally investigate or prosecute any alcohol or drug abuse patient.[facility] HospitalIn the event this information is protected by the Federal Confidentiality of Alcohol and Drug Abuse Patient Records regulations: The Federal rules restrict any use of the information to criminally investigate or prosecute any alcohol or drug abuse patient.[facility] HospitalIn the event this information is protected by the Federal Confidentiality of Alcohol and Drug Abuse Patient Records regulations: The Federal rules restrict any use of the information to criminally investigate or prosecute any alcohol or drug abuse patient.[facility] HospitalIn the event this information is protected by the Federal Confidentiality of Alcohol and Drug Abuse Patient Records regulations: The Federal rules restrict any use of the information to criminally investigate or prosecute any alcohol or drug abuse patient.[facility] HospitalIn the event this information is protected by the Federal Confidentiality of Alcohol and Drug Abuse Patient Records regulations: The Federal rules restrict any use of the information to criminally investigate or prosecute any alcohol or drug abuse patient.[facility] HospitalIn the event this information is protected by the Federal Confidentiality of Alcohol and Drug Abuse Patient Records regulations: The Federal rules restrict any use of the information to criminally investigate or prosecute any alcohol or drug abuse patient.[facility] HospitalIn the event this information is protected by the Federal Confidentiality of Alcohol and Drug Abuse Patient Records regulations: The Federal rules restrict any use of the information to criminally investigate or prosecute any alcohol or drug abuse patient.[facility] HospitalIn the event this information is protected by the Federal Confidentiality of Alcohol and Drug Abuse Patient Records regulations: The Federal rules restrict any use of the information to criminally investigate or prosecute any alcohol or drug abuse patient.[facility] HospitalIn the event this information is protected by the Federal Confidentiality of Alcohol and Drug Abuse Patient Records regulations: The Federal rules restrict any use of the information to criminally investigate or prosecute any alcohol or drug abuse patient.[facility] HospitalIn the event this information is protected by the Federal Confidentiality of Alcohol and Drug Abuse Patient Records regulations: The Federal rules restrict any use of the information to criminally investigate or prosecute any alcohol or drug abuse patient.[facility] HospitalIn the event this information is protected by the Federal Confidentiality of Alcohol and Drug Abuse Patient Records regulations: The Federal rules restrict any use of the information to criminally investigate or prosecute any alcohol or drug abuse patient.[facility] HospitalIn the event this information is protected by the Federal Confidentiality of Alcohol and Drug Abuse Patient Records regulations: The Federal rules restrict any use of the information to criminally investigate or prosecute any alcohol or drug abuse patient.[facility] HospitalIn the event this information is protected by the Federal Confidentiality of Alcohol and Drug Abuse Patient Records regulations: The Federal rules restrict any use of the information to criminally investigate or prosecute any alcohol or drug abuse patient.[facility] the event this information is protected by the Federal Confidentiality of Alcohol and Drug Abuse Patient Records regulations: The Federal rules restrict any use of the information to criminally investigate or prosecute any alcohol or drug abuse patient.[facility] HospitalIn the event this information is protected by the Federal Confidentiality of Alcohol and Drug Abuse Patient Records regulations: The Federal rules restrict any use of the information to criminally investigate or prosecute any alcohol or drug abuse patient.[facility] HospitalIn the event this information is protected by the Federal Confidentiality of Alcohol and Drug Abuse Patient Records regulations: The Federal rules restrict any use of the information to criminally investigate or prosecute any alcohol or drug abuse patient.[facility] HospitalIn the event this information is protected by the Federal Confidentiality of Alcohol and Drug Abuse Patient Records regulations: The Federal rules restrict any use of the information to criminally investigate or prosecute any alcohol or drug abuse patient.[facility] HospitalIn the event this information is protected by the Federal Confidentiality of Alcohol and Drug Abuse Patient Records regulations: The Federal rules restrict any use of the information to criminally investigate or prosecute any alcohol or drug abuse patient.[facility] HospitalIn the event this information is protected by the Federal Confidentiality of Alcohol and Drug Abuse Patient Records regulations: The Federal rules restrict any use of the information to criminally investigate or prosecute any alcohol or drug abuse patient.[facility] HospitalIn the event this information is protected by the Federal Confidentiality of Alcohol and Drug Abuse Patient Records regulations: The Federal rules restrict any use of the information to criminally investigate or prosecute any alcohol or drug abuse patient.[facility] HospitalIn the event this information is protected by the Federal Confidentiality of Alcohol and Drug Abuse Patient Records regulations: The Federal rules restrict any use of the information to criminally investigate or prosecute any alcohol or drug abuse patient.[facility] HospitalIn the event this information is protected by the Federal Confidentiality of Alcohol and Drug Abuse Patient Records regulations: The Federal rules restrict any use of the information to criminally investigate or prosecute any alcohol or drug abuse patient.[facility] HospitalIn the event this information is protected by the Federal Confidentiality of Alcohol and Drug Abuse Patient Records regulations: The Federal rules restrict any use of the information to criminally investigate or prosecute any alcohol or drug abuse patient.[facility] HospitalIn the event this information is protected by the Federal Confidentiality of Alcohol and Drug Abuse Patient Records regulations: The Federal rules restrict any use of the information to criminally investigate or prosecute any alcohol or drug abuse patient.[facility] HospitalIn the event this information is protected by the Federal Confidentiality of Alcohol and Drug Abuse Patient Records regulations: The Federal rules restrict any use of the information to criminally investigate or prosecute any alcohol or drug abuse patient.[facility] HospitalIn the event this information is protected by the Federal Confidentiality of Alcohol and Drug Abuse Patient Records regulations: The Federal rules restrict any use of the information to criminally investigate or prosecute any alcohol or drug abuse patient.[facility] Reason for Visit (unrecogniz ed section and content) Reason Comments PT Progress Note Specialty Diagnoses / Procedures Referred By Mendoza rene Referred To Contact [facility] Diagnoses Prostate cancer (HCC) Procedures CONSULT TO PHYSICAL THERAPY PHYSICAL THERAPY EVALUATION HIGH COMPLEX 45 MINS Quentin Hampton MD [address] [place] [address] [facility] [address] [address] Referral ID Status Reason Start Date Expiration Date Visits Requested Visits Authorized [id number] Authorized Auto-Generat ed Referral 05/16/2022 05/15/2023 20 20 Specialty Diagnoses / Procedures Referred By Mendoza rene Referred To Contact Radiation Oncology Diagnoses Prostate cancer (HCC) Abnormal findings on diagnostic imaging of other parts of musculoskeletal system Procedures RAD/ONC CONSULT OFFICE/OUTPATIENT NEW HIGH MDM 60-74 MINUTES Diamond Damon MD [id number] [place] [address] Referral ID Status Reason Start Date Expiration Date Visits Requested Visits Authorized [id number] Pending Review PCP Requested Referral 08/04/2021 08/04/2022 1 1 Reason Comments Patient Question Reason Comments Future Appointment Reason Onset Date Comments Refill Request 08/27/2021 Reason Comments New Patient Reason Comments Patient Education Reason Comments Returning Patient's Call Reason Comments Insurance Authorization Reason Comments Appointment Cancelled Reason Comments Medication Problem Reason Comments Schedule Surgery Pre-op Checklist Specialty Diagnoses / Procedures [facility] To Contact MR IMAGING Diagnoses Secondary malignant neoplasm of brain (HCC) Procedures MRI THORACIC SPINE WO/W IVCON MRI SPINAL CANAL THORACIC W/O & W/CONTR Diamond Meredith MD [address] [place] [address] Mr Imaging Referral ID Status Reason Start Date Expiration Date V isits Requested Visits Authorized [id number] Closed Auto-Generate d Referral 09/03/2021 10/03/2022 1 1 Reason Comments Spirometry Specialty Diagnoses / Procedures [facility] Diagnoses 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) Atrial fibrillation, unspecified type (HCC) Prostate cancer (HCC) Hyperlipidemia, unspecified hyperlipidemia type Primary hypertension Pre-operative cardiovascular examination Procedures SPIROMETRY BASELINE ONLY SPMTRY W/VC EXPIRATORY ROGELIO W/WO MXML VOL VNTJ Mauricio Riley MD [address] [place] [address] [facility] [address] [place] [address] Referral ID Status Reason Start Date Expiration Date V isits Requested Visits Authorized [id number] Closed Auto-Generate d Referral 09/14/2021 10/14/2022 1 1 Specialty Diagnoses / Procedures [facility]erred To Contact [facility] Diagnoses 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) Atrial fibrillation, unspecified type (HCC) Prostate cancer (HCC) Hyperlipidemia, unspecified hyperlipidemia type Primary hypertension Pre-operative cardiovascular examination Procedures LUNG DIFFUSION CAPACITY (DLCO) DIFFUSING CAPACITY Mauricio Riley MD [address] [place] [address] [facility] [address] [place] [address] Referral ID Status Reason Start Date Expiration Date V isits Requested Visits Authorized [id number] Closed Auto-Generate d Referral 09/14/2021 10/14/2022 1 1 Specialty Diagnoses / Procedures Referred By Contac t Referred To Contact Cardiac Surg Diagnoses 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 Hospital Discharge 10/06/21 Reason Comments Follow Up Phone Call Rc f/u call first a ttempt Reason Comments Post Op Reason Comments Radio Main J1 Reason Comments Orders Reason Onset Date Comments Transition Of Care 10/07/2021 Pharmacy - [facility] spital Discharge 10/06/2021 Reason Onset Date Comments Transition Of Care 10/25/2021 TCM f/u [facility] Discharge 10/06/21 Reason Comments Post Dc Program Call - Needs Attn Reason Onset Date Comments Transition Of Care 11/04/2021 TCM f/u [facility] Discharge 10/06/21 Reason Comments Received Outside Medical Records [facility] Appointment EP Reason Comments Received Outside Medical Records Reason Comments Pre-Op Exam Reason Comments Pre-Op Visit Reason Comments Post-Op Visit Reason Comments Follow Up Reason Comments Gout flare up Reason Comments Lab Orders Reason Comments Consult Specialty Diagnoses / Procedures Referred By Contac t Referred To Contact Oncology Diagnoses Prostate cancer (HCC) Procedures CONSULT TO ONCOLOGY OFFICE/OUTPATIENT [facility] MDM 60-74 MINUTES Raj Lam MD [address] [place] [address] Referral ID Status Reason Start Date Expiration Date Visits Requested Visits Authorized [id number] Pending Review PCP Requested Referral 12/16/2021 12/09/2022 1 1 Reason Comments Information Reason Onset Date Comments Population Health Navigation Outreach 01/26/2022 Diabetes Management Reason Comments Prostate Cancer Reason Comments Urinary Incontinence Prostate Cancer Reason Comments 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 Operator - 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 Reason Comments PT Eval Referral ID Status Reason Start Date Expiration Date Visits Requested Visits Authorized [id number] Pending Review Auto-Generat ed Referral 07/02/2022 06/01/2023 1 1 Reason Comments Prostate Cancer Reason Onset Date Comments Simulation Request Form 08/02/2022 Reason Comments Physical Therapy Specialty Diagnoses / Procedures Referred By Mendoza t Referred To Contact [facility] Diagnoses Prostate cancer (HCC) Procedures CONSULT TO PHYSICAL THERAPY PHYSICAL THERAPY EVALUATION HIGH COMPLEX 45 MINS Quentin Hampton MD [address] [phone] [facility] [address] [address] Reason Comments Radiotherapy On-treatment Visit Reason Comments Nurse Visit Reason Comments Constipation Reason Comments Patient Education constipation Reason Comments Patient Update Reason Comments Patient Education Completed radiation Reason Comments Recheck Reason Comments Back Pain Reason Comments Results Reason Comments Nm Pet Request Reason Comments Radiology NM Specialty Diagnoses / Procedures Referred By Mendoza rene Referred To Contact MOLECULAR & FUNCTIONAL IMAGING Diagnoses Prostate cancer (HCC) Procedures NM PET/CT PROSTATE WHOLE BODY IMAGING PET IMAGING CT ATTENUATION SKULL BASE MID-THIGH GALLIUM GA-68 GOZETOTIDE, DIG (LOCAMETZ), 1 [facility] Marie Beavers MD [address] [place] [address] [facility] [address] [place] [address] Referral ID Status Reason Start Date Expiration Date V isits Requested Visits Authorized [id number] Closed Auto-Generate d Referral 05/25/2024 09/04/2024 1 1 Care Teams (unrecognized sec tion and content) Note Specialist Relationship Specialty Start Date End Date Dee Rider MD [address] [place] [address] PCP - General Family Practice 05/21/14 Note Specialist Relationship Specialty Start Date End Date Dee Rider MD [address] [facility] [place] [address] PCP - General Family Practice 05/21/14 Note Specialist Relationship Specialty Start Date End Date Dee Rider MD [address] [facility] [place] [address] PCP - General Family Practice 05/21/14 Note Specialist Relationship Specialty Start Date End Date Dee Rider MD [address] [facility] [place] [address] PCP - General Family Practice 05/21/14 Note Specialist Relationship Specialty Start Date End Date Dee Rider MD [address] [place] [address] PCP - General Family Practice 05/21/14 Marie Bautista MD [address] [place] [address] Primary Staff Physician Cardiology 08/26/21 Note Specialist Relationship Specialty Start Date End Date Dee Rider MD [address] [facility] [place] [address] PCP - General Family Practice 05/21/14 Marie Bautista MD [address] [place] [address] Primary Staff Physician Cardiology 08/26/21 Note Specialist Relationship Specialty Start Date End Date Dee Rider MD [address] [facility] [place] [address] PCP - General Family Practice 05/21/14 Marie Bautista MD [address] [place] [address] Primary Staff Physician Cardiology 08/26/21 Note Specialist Relationship Specialty Start Date End Date Dee Rider MD [address] [place] [address] PCP - General Family Practice 05/21/14 Marie Bautista MD [address] [place] [address] Primary Staff Physician Cardiology 08/26/21 Note Specialist Relationship Specialty Start Date End Date Dee Rider MD [address] [place] [address] PCP - General Family Practice 05/21/14 Marie Bautista MD [address] [place] [address] Primary Staff Physician Cardiology 08/26/21 Note Specialist Relationship Specialty Start Date End Date Dee Rider MD [address] [place] [address] PCP - General Family Practice 05/21/14 Marie Bautista MD [address] [place] [address] Primary Staff Physician Cardiology 08/26/21 Note Specialist Relationship Specialty Start Date End Date Dee Rider MD [address] [place] [address] PCP - General Family Practice 05/21/14 Marie Bautista MD [address] [place] [address] Primary Staff Physician Cardiology 08/26/21 Note Specialist Relationship Specialty Start Date End Date Dee Rider MD [address] [place] [address] PCP - General Family Practice 05/21/14 Marie Bautista MD [address] [place] [address] Primary Staff Physician Cardiology 08/26/21 Note Specialist Relationship Specialty Start Date End Date Dee Rider MD [address] [place] [address] PCP - General Family Practice 05/21/14 Marie Bautista MD [address] [place] [address] Primary Staff Physician Cardiology 08/26/21 Note Specialist Relationship Specialty Start Date End Date Dee Rider MD [address] [place] [address] PCP - General Family Practice 05/21/14 Marie Bautista MD [address] [place] [address] Primary Staff Physician Cardiology 08/26/21 Note Specialist Relationship Specialty Start Date End Date Dee Rider MD [address] [place] [address] PCP - General Family Practice 05/21/14 Marie Bautista MD [address] [place] [address] Primary Staff Physician Cardiology 08/26/21 Note Specialist Relationship Specialty Start Date End Date Dee Rider MD [address] [place] [address] PCP - General Family Practice 05/21/14 Marie Bautista MD [address] [place] [address] Primary Staff Physician Cardiology 08/26/21 Note Specialist Relationship Specialty Start Date End Date Dee Rider MD [address] [place] [address] PCP - General Family Practice 05/21/14 Marie Bautista MD [address] [place] [address] Primary Staff Physician Cardiology 08/26/21 Note Specialist Relationship Specialty Start Date End Date Dee Rider MD [address] [place] [address] PCP - General Family Practice 05/21/14 Marie Bautista MD [address] [place] [address] Primary Staff Physician Cardiology 08/26/21 Note Specialist Relationship Specialty Start Date End Date Dee Rider MD [address] [place] [address] PCP - General Family Practice 05/21/14 Marie Bautista MD [address] [place] [address] Primary Staff Physician Cardiology 08/26/21 Note Specialist Relationship Specialty Start Date End Date Dee Rider MD [address] [place] [address] PCP - General Family Practice 05/21/14 Marie Bautista MD [address] [place] [address] Primary Staff Physician Cardiology 08/26/21 Marium Marrero jorge Transitional Care Pharmacist Pharmacy 10/07/21 11/06/21 Clarke Rodriguez, NELLY [address] [place] [address] Primary Care Off Premise Service Representative Internal Medicine 10/07/21 11/06/21 Note Specialist Relationship Specialty Start Date End Date Dee Rider MD [address] [place] [address] PCP - General Family Practice 05/21/14 Marie Bautista MD [address] [place] [address] Primary Staff Physician Cardiology 08/26/21 Marium Marrero [facility] Transitional Care Pharmacist Pharmacy 10/07/21 11/06/21 Clarke Rodriguez, NELLY [address] [place] [address] Primary Care Off Premise Service Representative Internal Medicine 10/07/21 11/06/21 Note Specialist Relationship Specialty Start Date End Date Dee Rider MD [address] [place], [place] [id number] PCP - General Family Practice 05/21/14 Marie Bautista MD [address] [place] [address] Primary Staff Physician Cardiology 08/26/21 Marium Marrero [facility] Transitional Care Pharmacist Pharmacy 10/07/21 11/06/21 Clarke Rodriguez, NELLY [address] [place] [address] Primary Care Off Premise Service Representative Internal Medicine 10/07/21 11/06/21 Note Specialist Relationship Specialty Start Date End Date Dee Rider MD [address] [place], [place] [id number] PCP - General Family Practice 05/21/14 Marie Bautista MD [address] [place] [address] Primary Staff Physician Cardiology 08/26/21 Marium Marrero [facility] Transitional Care Pharmacist Pharmacy 10/07/21 11/06/21 Clarke Rodriguez, NELLY [address] [facility] [place] [address] Primary Care Off Premise Service Representative Internal Medicine 10/07/21 11/06/21 Note Specialist Relationship Specialty Start Date End Date Dee Rider MD [address] [place] [address] PCP - General Family Practice 05/21/14 Marie Bautista MD [address] [place] [address] Primary Staff Physician Cardiology 08/26/21 Marium Marrero [facility] Transitional Care Pharmacist Pharmacy 10/07/21 11/06/21 Clarke Rodriguez RN [address] [place] [address] Primary Care Off Premise Service Representative Internal Medicine 10/07/21 11/06/21 Note Specialist Relationship Specialty Start Date End Date Dee Rider MD [address] [place] [address] PCP - General Family Practice 05/21/14 Marie Bautista MD [address] [place] [address] Primary Staff Physician Cardiology 08/26/21 Maruim Marrero [facility] Transitional Care Pharmacist Pharmacy 10/07/21 11/06/21 Clarke Rodriguez RN [address] [place] [address] Primary Care Off Premise Service Representative Internal Medicine 10/07/21 11/06/21 Note Specialist Relationship Specialty Start Date End Date Dee Rider MD [address] [place] [address] PCP - General Family Practice 05/21/14 Marie Bautista MD [address] [place] [address] Primary Staff Physician Cardiology 08/26/21 Marium Marrero [facility] Transitional Care Pharmacist Pharmacy 10/07/21 11/06/21 Clarke Rodriguez RN [address] [place] [address] Primary Care Off Premise Service Representative Internal Medicine 10/07/21 11/06/21 Note Specialist Relationship Specialty Start Date End Date Dee Rider MD [address] [place] [address] PCP - General Family Practice 05/21/14 Marie Bautista MD [address] [place] [address] Primary Staff Physician Cardiology 08/26/21 Note Specialist Relationship Specialty Start Date End Date Dee Rider MD [address] [place] [address] PCP - General Family Practice 05/21/14 Marie Bautista MD [address] [place] [address] Primary Staff Physician Cardiology 08/26/21 Note Specialist Relationship Specialty Start Date End Date Dee Rider MD [address] [place] [address] PCP - General Family Practice 05/21/14 Marie Bautista MD [address] [place] [address] Primary Staff Physician Cardiology 08/26/21 Note Specialist Relationship Specialty Start Date End Date Dee Rider MD [address] [place] [address] PCP - General Family Practice 05/21/14 Marie Bautista MD [address] [place] [address] Primary Staff Physician Cardiology 08/26/21 Marium Marrero [facility] Transitional Care Pharmacist Pharmacy 10/07/21 11/06/21 Clarke Rodriguez, RN [address] [place] [address] Primary Care Off Premise Service Representative Internal Medicine 10/07/21 11/06/21 Note Specialist Relationship Specialty Start Date End Date Dee Rider MD [address] [place] [address] PCP - General Family Practice 05/21/14 Marie Bautista MD [address] [place] [address] Primary Staff Physician Cardiology 08/26/21 Note Specialist Relationship Specialty Start Date End Date Dee Rider MD [address] [place] [address] PCP - General Family Practice 05/21/14 Marie Bautista MD [address] [place] [address] Primary Staff Physician Cardiology 08/26/21 Note Specialist Relationship Specialty Start Date End Date Dee Rider MD [address] [place] [address] PCP - General Family Practice 05/21/14 Marie Bautista MD [address] [place] [address] Primary Staff Physician Cardiology 08/26/21 Note Specialist Relationship Specialty Start Date End Date Dee Rider MD [address] [place] [address] PCP - General Family Medicine 05/21/14 Marie Bautista MD [address] [place] [address] Primary Staff Physician Cardiology 08/26/21 Note Specialist Relationship Specialty Start Date End Date Dee Rider MD [address] [place] [address] PCP - General Family Medicine 05/21/14 Marie Bautista MD [address] [place] [address] Primary Staff Physician Cardiology 08/26/21 Note Specialist Relationship Specialty Start Date End Date Dee Rider MD [address] [place] [address] PCP - General Family Medicine 05/21/14 Marie Bautista MD [address] [place] [address] Primary Staff Physician Cardiology 08/26/21 Note Specialist Relationship Specialty Start Date End Date Dee Rider MD [address] [place] [address] PCP - General Family Medicine 05/21/14 Marie Bautista MD [address] [place] [address] Primary Staff Physician Cardiology 08/26/21 Note Specialist Relationship Specialty Start Date End Date Dee Rider MD [address] [place] [address] PCP - General Family Medicine 05/21/14 Marie Bautista MD [address] [place] [address] Primary Staff Physician Cardiology 08/26/21 Note Specialist Relationship Specialty Start Date End Date Dee Rider MD [address] [place] [address] PCP - General Family Medicine 05/21/14 Marie Bautista MD [address] [place] [address] Primary Staff Physician Cardiology 08/26/21 Note Specialist Relationship Specialty Start Date End Date Dee Rider MD [address] [place] [address] PCP - General Family Medicine 05/21/14 Marie Bautista MD [address] [place] [address] Primary Staff Physician Cardiology 08/26/21 Note Specialist Relationship Specialty Start Date End Date Dee Rider MD [address] [place] [address] PCP - General Family Medicine 05/21/14 Marie Bautista MD [address] [place] [address] Primary Staff Physician Cardiology 08/26/21 Note Specialist Relationship Specialty Start Date End Date Dee Rider MD [address] [place] [address] PCP - General Family Medicine 05/21/14 Marie Bautista MD [address] [place] [address] Primary Staff Physician Cardiology 08/26/21 Note Specialist Relationship Specialty Start Date End Date Dee Rider MD [address] [place] [address] PCP - General Family Medicine 05/21/14 Marie Bautista MD [address] [place] [address] Primary Staff Physician Cardiology 08/26/21 Artur Mi MD, [address] [place] [address] Radiation Oncology 06/02/22 Note Specialist Relationship Specialty Start Date End Date Dee Rider MD [address] [place] [address] PCP - General Family Medicine 05/21/14 Marie Bautista MD [address] [place] [address] Primary Staff Physician Cardiology 08/26/21 Artur Mi MD, [address] [facility] [place] [address] Radiation Oncology 06/02/22 Note Specialist Relationship Specialty Start Date End Date Dee Rider MD [address] [place] [address] PCP - General Family Medicine 05/21/14 Marie Bautista MD [address] [place] [address] Primary Staff Physician Cardiology 08/26/21 Note Specialist Relationship Specialty Start Date End Date Dee Rider MD [address] [place] [address] PCP - General Family Medicine 05/21/14 Marie Bautista MD [address] [place] [address] Primary Staff Physician Cardiology 08/26/21 Artur Mi MD, [address] [facility] [address] Radiation Oncology 06/02/22 Note Specialist Relationship Specialty Start Date End Date Dee Rider MD [address] [place] [address] PCP - General Family Medicine 05/21/14 Marie Bautista MD [address] [facility] [place] [address] Primary Staff Physician Cardiology 08/26/21 Artur Mi MD, [address] [facility] [place] [address] Radiation Oncology 06/02/22 Note Specialist Relationship Specialty Start Date End Date Dee Rider MD [address] [place] [address] PCP - General Family Medicine 05/21/14 Marie Bautista MD [address] [place] [address] Primary Staff Physician Cardiology 08/26/21 Artur Mi MD, [address] [place] [address] Radiation Oncology 06/02/22 Note Specialist Relationship Specialty Start Date End Date Dee Rider MD [address] [place] [address] PCP - General Family Medicine 05/21/14 Marie Bautista MD [address] [place] [address] Primary Staff Physician Cardiology 08/26/21 Artur Mi MD, [address] [place] [address] Radiation Oncology 06/02/22 Note Specialist Relationship Specialty Start Date End Date Dee Rider MD [address] [place] [address] PCP - General Family Medicine 05/21/14 Marie Bautista MD [address] [place] [address] Primary Staff Physician Cardiology 08/26/21 Artur Mi MD, [address] [facility] [place] [address] Radiation Oncology 06/02/22 Note Specialist Relationship Specialty Start Date End Date Dee Rider MD [address] [facility] [place] [address] PCP - General Family Medicine 05/21/14 Marie Bautista MD [address] [place] [address] Primary Staff Physician Cardiology 08/26/21 Artur Mi MD, [address] [place] [address] Radiation Oncology 06/02/22 Note Specialist Relationship Specialty Start Date End Date Dee Rider MD [address] [place] [address] PCP - General Family Medicine 05/21/14 Marie Bautista MD [address] [place] [address] Primary Staff Physician Cardiology 08/26/21 Artur Mi MD, [address] [place] [address] Radiation Oncology 06/02/22 Note Specialist Relationship Specialty Start Date End Date Dee Rider MD [address] [place] [address] PCP - General Family Medicine 05/21/14 Marie Bautista MD [address] [place] [address] Primary Staff Physician Cardiology 08/26/21 Artur Mi MD, [address] [place] [address] Radiation Oncology 06/02/22 Note Specialist Relationship Specialty Start Date End Date Dee Rider MD [address] [place] [address] PCP - General Family Medicine 05/21/14 Marie Bautista MD [address] [place] [address] Primary Staff Physician Cardiology 08/26/21 Artur Mi MD, [address] [facility] [address] Radiation Oncology 06/02/22 Note Specialist Relationship Specialty Start Date End Date Dee Rider MD [address] [facility] [place] [address] PCP - General Family Medicine 05/21/14 Marie Bautista MD [address] [place] [address] Primary Staff Physician Cardiology 08/26/21 Artur Mi MD, [address] [facility] [address] Radiation Oncology 06/02/22 Note Specialist Relationship Specialty Start Date End Date Dee Rider MD [address] [facility] [place] [address] PCP - General Family Medicine 05/21/14 Marie Bautista MD [address] [place] [address] Primary Staff Physician Cardiology 08/26/21 Artur Mi MD, [address] [facility] [address] Radiation Oncology 06/02/22 Note Specialist Relationship Specialty Start Date End Date Dee Rider MD [address] [place] [address] PCP - General Family Medicine 05/21/14 Marie Bautista MD [address] [place] [address] Primary Staff Physician Cardiology 08/26/21 Artur Mi MD, [address] [place] [address] Radiation Oncology 06/02/22 Note Specialist Relationship Specialty Start Date End Date Dee Rider MD [address] [place] [address] PCP - General Family Medicine 05/21/14 Marie Bautista MD [address] [place] [address] Primary Staff Physician Cardiology 08/26/21 Artur Mi MD, [address] [place] [address] Radiation Oncology 06/02/22 Note Specialist Relationship Specialty Start Date End Date Dee Rider MD [address] [place] [address] PCP - General Family Medicine 05/21/14 Marie Bautista MD [address] [place] [address] Primary Staff Physician Cardiology 08/26/21 Artur Mi MD, [address] [place] [address] Radiation Oncology 06/02/22 Note Specialist Relationship Specialty Start Date End Date Dee Rider MD [address] [place] [address] PCP - General Family Medicine 05/21/14 Marie Bautista MD [address] [place] [address] Primary Staff Physician Cardiology 08/26/21 Artur Mi MD, [address] [place] [address] Radiation Oncology 06/02/22 Note Specialist Relationship Specialty Start Date End Date Dee Rider MD [address] [place] [address] PCP - General Family Medicine 05/21/14 Marie Bautista MD [address] [place] [address] Primary Staff Physician Cardiology 08/26/21 Artur Mi MD, [address] [place] [address] Radiation Oncology 06/02/22 Note Specialist Relationship Specialty Start Date End Date Dee Rider MD [address] [place] [address] PCP - General Family Medicine 05/21/14 Marie Bautista MD [address] [place] [address] Primary Staff Physician Cardiology 08/26/21 Artur Mi MD, [address] [place] [address] Radiation Oncology 06/02/22 Note Specialist Relationship Specialty Start Date End Date Dee Rider MD [address] [place] [address] PCP - General Family Medicine 05/21/14 Marie Bautista MD [address] [place] [address] Primary Staff Physician Cardiology 08/26/21 Artur Mi MD, [address] [place] [address] Radiation Oncology 06/02/22 Note Specialist Relationship Specialty Start Date End Date Dee Rider MD [address] [facility] [place] [address] PCP - General Family Medicine 05/21/14 Marie Bautista MD [address] [place] [address] Primary Staff Physician Cardiology 08/26/21 Artur Mi MD, [address] [facility] [place] [address] Radiation Oncology 06/02/22 Note Specialist Relationship Specialty Start Date End Date Dee Rider MD [address] [place] [address] PCP - General Family Medicine 05/21/14 Marie Bautista MD [address] [place] [address] Primary Staff Physician Cardiology 08/26/21 Artur Mi MD, [address] [facility] [address] Radiation Oncology 06/02/22 Note Specialist Relationship Specialty Start Date End Date Dee Rider MD [address] [place] [address] PCP - General Family Medicine 05/21/14 Marie Bautista MD [address] [place] [address] Primary Staff Physician Cardiology 08/26/21 Artur Mi MD, [address] [place] [address] Radiation Oncology 06/02/22 Note Specialist Relationship Specialty Start Date End Date Dee Rider MD [address] [place] [address] PCP - General Family Medicine 05/21/14 Marie Bautista MD [address] [place] [address] Primary Staff Physician Cardiology 08/26/21 Artur Mi MD, [address] [place] [address] Radiation Oncology 06/02/22 Note Specialist Relationship Specialty Start Date End Date Dee Rider MD [address] [place] [address] PCP - General Family Medicine 05/21/14 Marie Bautista MD [address] [place] [address] Primary Staff Physician Cardiology 08/26/21 Artur Mi MD, [address] [place] [address] Radiation Oncology 06/02/22 Team Status: Active Member Role Status Dates Dr. Dee Rider MD Family Provider Active Dr. Dee Rider MD Primary Care Provider Active Team Status: Inactive Member Role Status Dates Dr. Dee Rider MD Primary Care Provider, Referr ing Provider Active Dr. Junior Johnson MD Active Lele Hanley PAEDIATRIC PHYSIOTHERAPIST, PAEDIATRIC PHYSIOTHERAPIST-C Attending Provider Active Team Status: Inactive Member Role Status Dates Dr. Dee Rider MD Primary Care Provider Active Lele Hanley PAEDIATRIC PHYSIOTHERAPIST, PAEDIATRIC PHYSIOTHERAPIST-C Attending Provider, Referring Pro vider Active Note Specialist Relationship Specialty Start Date End Date Dee Rider MD [address] [place] [address] PCP - General Family Medicine 05/21/14 Marie Bautista MD [address] [place] [place], [place] [id number] Primary Staff Physician Cardiology 08/26/21 Artur Mi MD, MD [address] [place], [place] [address] Radiation Oncology 06/02/22 Team Status: Active Member Role Status Dates Dr. Dee Rider MD Primary Care Provider Active Lele Hanley PAEDIATRIC PHYSIOTHERAPIST, PAEDIATRIC PHYSIOTHERAPIST-C Attending Provider Active Team Status: Inactive Member Role Status Dates Dr. Dee Rider MD Primary Care Provider Active Dr. Marlo Harding DO Emergency Provider Active Note Specialist Relationship Specialty Start Date End Date Dee Rider MD [address] [place], [place] [id number] PCP - General Family Medicine 05/21/14 Marie Bautista MD [address] [place], [place] [id number] Primary Staff Physician Cardiology 08/26/21 Artur Mi MD, MD [address] [place], [place] [address] Radiation Oncology 06/02/22 Team Status: Inactive Member Role Status Dates Dr. Dee Rider MD Primary Care Provider Active Lele Hanley PAEDIATRIC PHYSIOTHERAPIST, PAEDIATRIC PHYSIOTHERAPIST-C Attending Provider Active Note Specialist Relationship Specialty Start Date End Date Dee Rider MD [address] [place], [place] [address] PCP - General Family Medicine 05/21/14 Marie Bautista MD [address] [place] [address] Primary Staff Physician Cardiology 08/26/21 Artur Mi MD [address] [place] [address] Radiation Oncology 06/02/22 Team Status: Inactive Member Role Status Dates Dr. Dee Rider MD Primary Care Provider, Referr ing Provider Active Dr. Herberth Watson MD Attending Provider Active Team Status: Inactive Member Role Status Dates Dr. Dee Rider MD Primary Care Provider Active Dr. Junior Johnson MD Attending Provider Active Team Status: Inactive Member Role Status Dates Dr. Dee Rider MD Primary Care Provider Active Dr. Herberth Watson MD Attending Provider, Referring Pr ovider Active Note Specialist Relationship Specialty Start Date End Date Dee Rider MD [address] [place], [place] [address] PCP - General Family Medicine 05/21/14 Marie Bautista MD [address] [place], [place] [id number] Primary Staff Physician Cardiology 08/26/21 Artur Mi MD [address] [place] [address] Radiation Oncology 06/02/22 Note Specialist Relationship Specialty Start Date End Date Marie Bautista MD [address] [place] [address] Primary Staff Physician Cardiology 08/26/21 Artur Mi MD [address] [facility] [place] [address] Radiation Oncology 06/02/22 Note Specialist Relationship Specialty Start Date End Date Marie Bautista MD [address] [place] [address] Primary Staff Physician Cardiology 08/26/21 Artur Mi MD [address] [place] [address] Radiation Oncology 06/02/22 Francheska Cheung, RN Specialty Batch Operator 02/20/24 Note Specialist Relationship Specialty Start Date End Date Marie Bautista MD [address] [place] [address] Primary Staff Physician Cardiology 08/26/21 Artur Mi MD [address] [place] [address] Radiation Oncology 06/02/22 Francheska Cheung, RN Specialty Batch Operator 02/20/24 Note Specialist Relationship Specialty Start Date End Date Marie Bautista MD [address] [place] [address] Primary Staff Physician Cardiology 08/26/21 Artur Mi MD [address] [place] [address] Radiation Oncology 06/02/22 Francheska Cheung, RN Specialty Batch Operator 02/20/24 Note Specialist Relationship Specialty Start Date End Date Marie Bautista MD [address] [place] [address] Primary Staff Physician Cardiology 08/26/21 Artur Mi MD [address] [place] [address] Radiation Oncology 06/02/22 Francheska Cheung, RN Specialty Batch Operator 02/20/24 Team Status: Active Member Role Status Dates Dr. Dee Rider MD Family Provider Active Yecenia Agrawal MD Primary Care Provider Active Team Status: Inactive Member Role Status Ketan Agrawal MD Primary Care Provider Active St art: May 03, 2024 End: May 03, 2024 Dr. Junior Johnson MD Attending Provider Active S tart: May 03, 2024 End: May 03, 2024 Dr. Junior Johnson MD Referring Provider Active S tart: May 03, 2024 End: May 03, 2024 Team Status: Inactive Member Role Status Ketan Agrawal MD Primary Care Provider Active St art: August 28, 2024 End: August 28, 2024 Yecenia Agrawal MD Attending Provider Active Start : August 28, 2024 End: August 28, 2024 FOR RECORDS PERTAINING TO PATIENTS WHO ARE OR HAVE BEEN ENROLLED IN A CHEMICAL DEPENDENCY/SUBSTANCEABUSE PROGRAM, SOME INFORMATION MAY BE OMITTED. This clinical summary was aggregated from multiple sources. Caution should be exercised in using it in the provision of clinical care. This summary normalizes information from multiple sources, and as a consequence, information in this document may materially change the coding, format and clinical context of patient data. In addition, data may be omitted in some cases. CLINICAL DECISIONS SHOULD BE BASED ON THE PRIMARY CLINICAL RECORDS. [employer] [facility]. provides no warranty or guarantee of the accuracy or completeness of information in this document.
[2024-11-04 00:14] VITALS: BP 166/70; PULSE 99; RESP 16; O2SAT 95
[2024-11-04 01:55] VITALS: BP 168/80; PULSE 78; RESP 16; TEMP 36.7; O2SAT 99
== END 2024-11-04 01:56 | disposition home or self-care (01) ==
PROVIDERS: Emergency Provider Emergency Medicine; PCP Family Medicine; Visit Provider Emergency Medicine
DX: K59.00 Constipation, unspecified (principal); E11.9 Type 2 diabetes mellitus without complications; Z87.891 Personal history of nicotine dependence; I10 Essential (primary) hypertension; I25.10 Atherosclerotic heart disease of native coronary artery without angina pectoris; Z95.5 Presence of coronary angioplasty implant and graft; Z95.1 Presence of aortocoronary bypass graft; Z98.890 Other specified postprocedural states; Z85.46 Personal history of malignant neoplasm of prostate
CPT/HCPCS: 74019; 99284

== ENCOUNTER → 2024-12-22 | Outpatient (CLI) | payer MEDICARE, SELFPAY ==
[2023-08-08 13:20] VITALS: BMI 28.5
--- OUTSIDE RECORDS SUMMARY | 2024-12-22 11:05 | XMS RPT_ITS | CCD ---
Author Organization [facility] Care Team Providers Care Miller Apprentice Name Role Phone EDUARDO, EREN E Unavailable Unavailable EDUARDO, EREN E Unavailable Unavailable EDUARDO EREN Unavailable Unavailable Wes Rider Unavailable Unavailable EDUARDO, EREN Unavailable Unavailable EDUARDO, EREN Unavailable Unavailable EDUARDO EREN Unavailable Unavailable Wes Rider Unavailable Unavailable Dr. Wes Rider Primary Care Provider Dr. Wes Rider Referring Provider [phone] Dr. Junior Johnson Attending Provider [phone] Wes Rider MD Primary Care Provider Marie Bautista MD Unavailable Dr. Junior Johnson Referring Provider [phone] Junior Johnson Other Provider Marium Marrero RPh Unavailable Unavailable Clarke Rodriguez RN Unavailable Wes Rider MD Primary Care Provider Marie Bautista MD Unavailable Dr. Wes Rider Primary Care Provider Priscilla Valdivia Attending Provider Unavailable Dr. Wes Rider Referring Provider Dayan JUNIOR DATA ANALYST, DEVANTE Villalta Attending Provider Dr. Junior Johnson Attending Provider [phone] Wes Rider Primary Care Provider Priscilla Valdivia Attending Provider Unavailable Wes Rider MD Primary Care Provider Dr. Wes Rider Primary Care Provider Dr. Wes Rider Referring Provider Roof JUNIOR DATA ANALYST, JUNIOR DATA ANALYST-Sonal Villalta Attending Provider eWs Rider MD Primary Care Provider Lily CISNEROS, Marie Unavailable Shmuel CISNEROS MD, Daesung Unavailable Dr. Wes Rider Primary Care Provider Dr. Wes Rider Referring Provider Roof JUNIOR DATA ANALYST, JUNIOR DATA ANALYST-Sonal Villalta Attending Provider Lily CISNEROS, Marie Unavailable Dr. Wes Rider Primary Care Provider Dr. Wes Rider Referring Provider Roof JUNIOR DATA ANALYST, JUNIOR DATA ANALYST-Sonal Villalta Attending Provider Shmuel CISNEROS, Artur Unavailable Dr. Wes Rider Primary Care Provider Dr. Wes Rider Referring Provider Dr. Herberth Watson Attending Provider Dr. Junior Johnson Attending Provider Wes Rider MD Primary Care Provider Clemente RN, Tiffanie Unavailable Erasto Agrawal MD, Yecenia Primary Care Provider Dr. Junior Johnson MD Attending Provider Dr. Junior Johnson MD Referring Provider Yecenia Agrawal MD Attending Provider TANJA CISNEROS, YECENIA Primary Care Physician CRIS CISNEROS, DR GRISELDA Mistry Attending Eloy Townsend MD, YECENIA Primary Care Unavailable TANJA CISNEROS, YECENIA Primary Care Unavailable CRIS CISNEROS, DR GRISELDA Mistry Attending Eloy Hall MD, DR GRISELDA Mistry Attending Eloy Townsend MD, CHALON Primary Care Unavailable EMILIA WOODRUFF-JH, MILKA L Consulting Louisa LYNCH MD, DR GIRSELDA Mistry Admitting Unavailab diana LYNCH MD, DR GRISELDA Mistry Attending Unavailab diana AGRAWAL MD, CHALON Primary Care Unavailable Tanja CISNEROS, Chalon Primary Care Provider [phone] Jennifer CISNEROS, Sonu Emergency Provider [phone] Tanja, Chalon Attending Unavailable Tanja, Chalon Primary Care Unavailable Tanja, Chalon Attending Unavailable Elderbrock, Wes Primary Care Unavailable Tanja, Chalon Referring Unavailable Tanja, Chalon Primary Care Unavailable Elizabeth, Junior Referring Unavailable Elizabeth, [place] Attending Unavailable Elizabeth, Junior Attending Unavailable Tanja, Chalon Primary Care Unavailable Neli MCGEE, Talia Conte Attending Unavail able Elizabeth, Junior Referring Unavailable Elizabeth, Junior Consulting Unavailable Tanja, Chalon Primary Care Unavailable Elderbrock, Wes Primary Care Unavailable Elderbrock, Wes Referring Unavailable Elizabeth, [place] Attending Unavailable Tanja, Chalon Primary Care Unavailable Elizabeth, Junior Attending Unavailable Elizabeth, Junior Referring Unavailable Tanja, Chalon Primary Care Unavailable Sonu Rodriguez Attending Unavailable MARIE BEAVERS Attending Unavailable SELF Referring Unavailable MARIE BEAVERS Referring Unavailable MARIE BEAVERS Referring Unavailable MARIE BEAVERS Referring Unavailable PHILLIP BARNETT Referring Unavailable PHILLIP BARNETT Attending Unavailable MARIE BEAVERS Referring Unavailable Medications Current Medications Medication Drug Class(es) [...] 0 Refill(s), 11/07/24 8:53:00 AM EDT, Pharmacy: [id number], 185.4, cm, 10/23/24 14:49:00 EDT, [...] release (DR/EC) Discontinued 81 mg PO daily July 26, 2018 12:00am October 10, 2021 7:46pm Start: 03-19-2016 End: 07-26-2018 Aspirin 325 MG tablet Discon tinued 161 mg PO DAILY@0000 March 19, 2016 1:19pm July 26, 2018 9:18am Start: 03-19-2016 End: 07-26-2018 take 161 mg by mouth once daily Aspirin Discontinued 161 MG PO DAILY@0000 March 19, 2016 1:19pm July 26, 2018 9:18am Start: 11-28-2013 End: 03-19-2016 take 1 tablet by mouth once daily Aspirin 325 MG tablet Discontinued 325 mg PO DAILY@0800 60 November 28, 2013 12:00am March 19, 2016 1:19pm Comment on above: Take 81 mg by mouth once daily. atorvastatin 80 mg oral tablet (20 sources) HMG-CoA Reductase Inhibitor Start: 2 End: take 1 tablet by mouth once daily at bedtime atorvastatin (LIPITOR) 80 mg tablet Take 1 tablet by mouth daily at bedtime. 90 tablet 3 08/26/2021 Active Start: 03-19-2016 End: 10-10-2021 take 1 tablet by mouth at bedtime Atorvastatin 40 mg tablet Discontinued 40 mg PO AT BEDTIME August 14, 2020 3:47pm October 10, 2021 7:47pm Comment on above: Take 1 tablet by deisi th once daily. Take 1 tablet by deisi th daily at bedtime. benazepril hydrochloride 40 mg oral tablet (20 sources) Angiotensin Converting Enzyme Inhibitor Start: take 1 tablet by mouth once daily benazepril 40 mg tablet Indications: Essential hypertension, benign Take 1 tablet by mouth once daily. 05/24/2023 Active Start: 02-18-2023 End: 03-05-2024 take 2 tablets [...] mg tablet Discontinued 40 mg PO DAILY 90 July 23, 2020 5:13pm July 23, 2020 5:15pm Start: 08-29-2018 End: 02-18-2023 take 1 tablet by mouth once daily Benazepril 20 mg tablet Discontinued 20 mg PO DAILY 90 October 22, 2022 11:10am February 18, 2023 [...] Comment on above: [facility]. Take it 1 day before and 3 days after catheter removal docusate sodium 100 mg oral capsule (5 sources) Start: 2021 End: 2021 take 1 capsule by mouth twice daily docusate sodium (COLACE) 100 mg capsule Take 1 capsule by mouth twice daily. 60 capsule 0 11/20/2021 12/20/2021 Active Comment on above: Take 1 capsule by mo [facility] twice daily. docusate sodium 50 mg / sennosides, detention 8.6 mg oral tablet (1 source) Start: 2024 End: 2024 take 1 tablet by mouth twice daily Senokot S 50 mg-8.6 mg oral tablet Dose = 2 tab(s), Oral, BID, Take until first bowel movement, then as needed, X 3 day(s), # 12 tab(s), 0 Refill(s), Pharmacy: [id number], 185.4, cm, 10/23/24 14:49:00 EDT, [...] 0 Refill(s), 11/07/24 8:52:00 AM EDT, Pharmacy: [id number], 185.4, cm, 10/23/24 14:49:00 EDT, [...] qDay, # 30 tab(s), 0 Refill(s), Pharmacy: [id number], 185.4, cm, 10/23/24 14:49:00 EDT, Height, kg, 10/23/24 14:49:00 EDT, Dosing Weight Start Date: 10/24/24 Status: Ordered Quantity: 30.0 Unit: tab(s) Repeat number: 1 24 hr ferrous sulfate 142 mg extended release oral tablet (3 sources) Start: 2024 Slow Fe (as elemental [...] mg PO daily March 27, 2024 1:00am Magnesium glycinate (2 sources) Start: 08-26-2023 Magnesium Glycinate Active MG PO August 26, 2023 12:00am mecobalamin (2 sources) Start: 03-27-2024 take 1 tablet by mouth once daily Mecobalamin (Vitamin B12) 500 mcg tablet,chewable Active 500 ug PO DAILY March 27, 2024 1:00am meloxicam 7.5 mg oral tablet (1 source) Nonsteroidal Anti-inflammatory Drug Start: 10-24-2024 End: 11-23-2024 meloxicam 7.5 mg oral tablet Dose : 7.5 mg = 1 tab(s), Oral, BID, Do not take any other nonsteroidal anti-inflammatories while on meloxicam/Mobic., # 60 tab(s), 0 Refill(s), Pharmacy: [facility], 185.4, cm, 10/23/24 14:49:00 EDT, Height, kg, 10/23/24 14:49:00 EDT, Dosing Weight Start Date: 10/24/24 Stop Date: 11/23/24 Status: Ordered Quantity: 60.0 Unit: tab(s) Repeat number: 1 oxyCODONE hydrochloride 5 mg oral tablet (1 source) Opioid Agonist Start: 10-24-2024 End: 10-31-2024 take 1-2 tablets by mouth every four hours as needed for pain oxyCODONE 5 mg oral tablet ( IMMEDIATE release ) See Instructions, PRN as needed for pain, 1-2 tab(s) Oral q4h, # 42 tab(s), 0 Refill(s), 10/31/24 8:53:00 AM EDT, Pharmacy: [facility], Status post total right knee replacement, 185.4, cm, 10/23/24 14:49:00 EDT, Height, 102.3, kg, 10/23/24 14:49:00 EDT, Dosing Weight Start Date: 10/24/24 Stop Date: 10/31/24 Status: Ordered Quantity: 42.0 Unit: tab(s) Repeat number: 1 Indications: Presence of right artificial knee joint; spironolactone 25 mg oral tablet (20 sources) Aldosterone Antagonist Start: 03-17-2023 End: 09-26-2024 take 1 tablet by mouth once daily spironolactone (ALDACTONE) 25 mg tablet Take 1 tablet by mouth once daily. 05/24/2023 Active Start: 11-21-2021 take 1 tablet by deisi [...] / HYDROcodone bitartrate 5 mg oral tablet (6 sources) Opioid Agonist Start: 04-04-2023 End: 08-12-2023 [...] mg tablet Discon tinued 12.5 mg PO DAILY@1600 2019 10:22am August 28, 2019 2:29pm Start: 03-19-2016 End: 06-16-2020 take 12.5 mg [...] oral tablet (12 sources) Loop Diuretic Start: 2 End: 2 take 1 tablet by mouth once daily furosemide (LASIX) 20 mg tablet Take 1 tablet by mouth once daily for 7 days. 7 tablet 0 10/07/2021 10/13/2021 Discontinued Comment on above: Take 1 tablet by deisi th once daily for 7 days. Incontinence Pants, Reusable misc (20 sources) Start: 2 Incontinence Pants, Reusable misc Indications: Urinary incontinence, unspecified type , Malignant neoplasm of prostate (HCC) Mens shorts with plastic housing that drains into collection bag. 1 Each 05/03/2022 Active Comment on above: Mens shorts with zara stic housing that drains into collection bag. 24 hr isosorbide mononitrate 30 mg extended release oral tablet (20 sources) Nitrate Vasodilator Start: End: 2 take 1 tablet by mouth once daily, then take 1 tablet by mouth every twenty-four hours Isosorbide Mononitrate 30 mg tablet extended release 24 hr Discontinued 30 mg PO DAILY August 10, 2021 12:56pm October 10, 2021 7:47pm Comment on above: Take 1 tablet by deisi th once daily. 0.5 ml leuprolide acetate 60 mg/ml prefilled syringe (20 sources) Gonadotropin Releasing Hormone Receptor Agonist Start: 2 End: 5 leuprolide 30 mg injection (ELIGARD) Start: 09-01-2021 End: 09-08-2021 inject 22.5 mg by intramuscular injection every three months leuprolide (LUPRON DEPOT) 22.5 mg injection Indications: Prostate cancer (HCC) Inject 22.5 mg intramuscularly every 3 months. 22.5 mg 3 09/01/2021 09/08/2021 Discontinued Comment on above: Inject 22.5 mg intra muscularly every 3 months. magnesium citrate 58.2 mg/ml oral solution (17 sources) take 296 mL by mouth once magnesium citrate solution Take 296 mL by mouth one time only. 0 Active Comment on above: Take 296 mL by mouth one time only. Magnesium Glycinate 100 mg magnesium capsule (2 sources) Start: 08-26-19 End: 09-15-19 24 Magnesium Glycinate 100 mg [...] Cholinergic Muscarinic Antagonist Start: 11-21-19 End: 05-20-19 take 1 tablet by mouth twice daily oxybutynin (DITROPAN) 5 mg tablet Take 1 tablet by mouth twice daily for 7 days. 14 tablet 0 11/20/2021 05/20/2022 Discontinued Comment on above: Take [address] [facility] twice daily for 7 days. tadalafil 5 mg oral tablet (20 sources) Phosphodiesterase 5 Inhibitor Start: 12-24-19 End: 02-12-20 take 1 tablet by mouth every twenty-four [...] obstruction or gangrene] Episodic Acute posthemorrhagic anemia (13 sources) Acute posthemorrhagic anemia; Translations: [Acute posthemorrhagic [...] 07/31/2021 Chronic obstructive pulmonary disease and bronchiectasis (19 sources) Chronic bronchitis; Translations: [Unspecified chronic bronchitis] Onset: 3 Resolved: 4 Chronic Conditions associated with dizziness or vertigo (20 sources) Lightheadedness; Translations: [Dizziness and giddiness] 10-14-2021 Episodic Conduction disorders (13 sources) Incomplete right bundle branch block; Translations: [Unspecified right bundle-branch block] 07-25-2018 Chronic Coronary atherosclerosis and other heart disease (20 sources) Atherosclerotic heart disease of [place] coronary artery without angina pectoris; Translations: [Coronary atherosclerosis] Onset: 8 Resolved: 2 02-13-2009 Chronic Diabetes mellitus without complication (20 sources) Type [...] Onset: 5 02-02-2005 Chronic Other acquired deformities (4 sources) Lumbar spondylolisthesis; Translations: [Spondylolisthesis, lumbar region] [...] malignant neoplasm] Episodic Other aftercare (1 source) care home (current) use of aspirin; Translations: [remote computer terminal operator (current) use of aspirin] Onset: 5 Episodic Other aftercare (1 source) Other termite inspector (current) drug therapy; Translations: [Other termite inspector (current) drug therapy] Onset: 5 Episodic Other [...] Translations: [Other constipation] Onset: 5 Episodic Other gastrointestinal disorders (1 source) Constipation; Translations: [Constipation, unspecified] 11-04-2024 Episodic Other gastrointestinal disorders (1 source) Constipation, unspecified; Translations: [Constipation, unspecified] Onset: 5 Episodic Other lower respiratory disease (13 sources) Dyspnea on exertion; Translations: [Dyspnea, unspecified] 08-06-2021 Episodic Other lower respiratory disease (13 sources) Dyspnea; Translations: [Dyspnea, unspecified] 07-11-2018 Episodic Other male genital disorders (2 sources) Erectile dysfunction following radical prostatectomy; Translations: [Erectile dysfunction following radical prostatectomy] Chronic Other nervous system disorders (4 sources) Cervical myelopathy; Translations: [Disease of spinal cord, unspecified] 08-26-2023 Chronic Other nervous system disorders (2 sources) Disease of spinal cord, unspecified; Translations: [Cervical spondylosis with myelopathy] 08-26-2023 Chronic Other upper respiratory disease (20 sources) Allergic [...] Translations: [Secondary malignant neoplasm of brain] Chronic Sprains and strains (6 sources) Lower back injury; Translations: [Strain of muscle, fascia and tendon of lower back, initial encounter] 04-04-2023 Episodic Substance-related disorders (20 sources) Nicotine dependence; Translations: [Nicotine dependence, unspecified, uncomplicated] Onset: 10-05-2021 Chronic Syncope (13 sources) Syncope; Translations: [Syncope and collapse] 07-11-2018 [...] unspecified] Onset: 09-29-2021 09-29-2021 Episodic Cardiac dysrhythmias (11 sources) Sinus bradycardia; Translations: [Bradycardia, unspecified] Onset: 09-30-2021 Resolved: 10-03-2021 Episodic Complications of surgical procedures or medical care (20 sources) Drug therapy finding; Translations: [Unspecified adverse effect of drug or medicament, initial encounter] Onset: 01-09-2010 01-09-2010 Episodic Coronary atherosclerosis and other heart disease (20 sources) Presence of coronary angioplasty implant and graft; Translations: [Percutaneous transluminal coronary angioplasty status] Onset: 10-18-2014 Episodic Fluid and electrolyte disorders (20 sources) Hypovolemia; Translations: [Hypovolemia] Onset: 09-30-2021 Resolved: 10-04-2021 10-04-2021 Episodic Nonmalignant breast conditions (20 sources) Gynecomastia; Translations: [Hypertrophy of breast] Onset: 12-23-2011 12-23-2011 Episodic Other connective tissue disease (20 sources) Muscle weakness; Translations: [Muscle weakness (generalized)] Onset: 06-04-2022 Episodic Other lower respiratory disease (1 source) Other forms of dyspnea; Translations: [Other forms of dyspnea] Onset: 06-04-2024 Episodic Other nervous system disorders (10 sources) Acute postoperative pain; Translations: [Other acute postprocedural pain] Onset: 09-30-2021 Resolved: 10-04-2021 2 Episodic Other screening for suspected conditions (not mental disorders or infectious disease) (20 sources) Radiology result abnormal; Translations: [Abnormal findings on diagnostic imaging of other parts of musculoskeletal system] Onset: 07-06-2010 Episodic Pleurisy; pneumothorax; pulmonary collapse (10 sources) Atelectasis; Translations: [Atelectasis] Onset: 09-30-2021 Resolved: 10-04-2021 10-04-2021 Episodic Spondylosis; intervertebral disc disorders; other back problems (20 sources) Spinal stenosis of lumbar region; Translations: [Spinal stenosis, lumbar region without neurogenic claudication] Onset: 09-28-2021 09-28-2021 Episodic Results Test Name Value Interpretation Reference Range Facility [facility] 11-27-2024 OVS Visit (SP) Office (H EMAWS) JERMAINE BEGUM ([id number]) 1945 M NFR Date Time Provider Department 11/27/24 11:00 AM PHILLIP BARNETT During your visit today, we recorded the following information about you: Temperature Pulse Blood pressure Weight 96.9 degrees 62/minute 138/71 107.5 kg Height 1.803 m Gsiele Winchester LPN 11/27/2024 12:00 PM Signed Transferring care closer to home DX: prostate cancer JAMES Camara Drew, MD 11/27/2024 12:00 PM Signed HISTORY OF PRESENT ILLNESS: Jermaine Begum is a 79 year old male transfer of care from [facility] [place], history as follows: ONCOLOGIC HISTORY: Oncology History Prostate cancer (HCC) [...] a telephone visit. Initially was diagnosed with Ruth 4+3 disease in setting of PSA of 34.08, clinically very high risk with EPE+ on MRI. More emergently, however, he needed a CABG, so started with ADT alone prior to definitive treatment with radical prostatectomy in November 2021, with [id number] disease. Given that he had gotten ADT prior to surgery, it was difficult to assess PSA kinetics in the setting of castrate levels of testosterone, so we wanted to monitor off ADT to see the evolution of his PSA. PSA ultimately did become detectable so he got 6600 cGy of salvage XRT in August-September 2022 along with a short course of leuprolide (30 mg). Dr Beavers followed, PSA drifting up. 25 PSMA PET scan negative. Review of PSA DT about 6 months CLINICAL IMPRESSION: Biochemical relapse prostate cancer, PSA low but rising, DT 6 months. RECOMMENDATION/PLAN: 1. Observation unless DT reaches 3 months, then consider CAB 2. Recheck PSA q 3 months. Written and verbal health teaching given to patient, patient verbalizes understanding and agrees with treatment plan. PAST MEDICAL HISTORY Diagnosis Date Arthritis Atrial flutter, unspecified type (HCC) CAD (coronary artery disease) Diabetes mellitus (HCC) Dilated aortic root Diverticulosis of colon (without mention of hemorrhage) Erectile dysfunction following radical prostatectomy Gout HLD (hyperlipidemia) HTN (hypertension) Malignant neoplasm of prostate (HCC) Prostate cancer (HCC) scheduled for surgery September 09, 2021 Spinal stenosis of lumbar region without neurogenic claudication 09/23/2021 lumbar canal stenosis at L4-L5 Urinary incontinence, unspecified type PAST SURGICAL HISTORY Procedure Laterality Date ARTHRP ACETBLR/PROX FEM PROSTC AGRFT/ALGRFT 05/16/1996 right ARTHRP ACETBLR/PROX FEM PROSTC AGRFT/ALGRFT Left 03/16/2016 Dr. Wilkerson CARDIOVERSION N/A 09/19/2020 [facility] PAST SURGICAL HISTORY OF 05/16/1954 had left arm set above the wrist, PAST SURGICAL HISTORY OF 05/16/2013 Left partial knee replacement PAST SURGICAL HISTORY OF CABG 09/2021 PAST SURGICAL HISTORY OF wisdom teeth extraction REMOVAL OF PROSTATE 11/19/2021 TONSILLECTOMY AND ADENOIDECTOMY FAMILY HISTORY Problem Relation Age of Onset [...] 09/01/2021 Years since quittin.2 Smokeless tobacco: Never Tobacco comments: Pt. quit smoking cigarettes in 1969 - don't consciously inhale Vaping Use Vaping status: Never Used Substance Use Topics Alcohol use: Yes Alcohol/week: 7.0 standard drinks of alcohol Types: 7 Shots of liquor per week Drug use: No ALLERGIES: ALLERGIES No Kn (more content not included)... Normal [facility] [place] 11-20-2024 JHN Telephone ([employer]) JERMAINE BEGUM ([id number]) 1945 [place] NFR Date Time Provider Department 11/20/24 PHILLIP BARNETT During your visit today, we recorded the following information about you: Joellen Lam 11/20/2024 10:46 AM Signed Patient called asking if A1C can be added to labs for today. No need to call and advise patient. Janeth Claros LPN 11/20/2024 10:52 AM Signed Patient advised to contact PCP's office to inquire about A1C order. Janeth Claros LPN Allergies As of Date: 11/20/2024 (No Known Allergies) Date Reviewed: 05/24/2023 Reviewed by: Precious Deleon MA - Fully Assessed Reason for Visit: Orders [681] Prescriptions as of 11/20/2024 - spironolactone (ALDACTONE) 25 mg tablet Take 1 tablet by mouth once daily. - benazepril 40 mg tablet Take 1 tablet by mouth once daily. - atorvastatin (LIPITOR) 80 mg tablet Take 1 tablet by mouth daily at bedtime. - aspirin, enteric coated (ASPIRIN, ENTERIC COATED) 81 mg EC tablet Take 81 mg by mouth once daily. Facility-Administered Medications as of 11/20/2024 - leuprolide 30 mg injection (ELIGARD) Meds Comments as of 03/26/2016: Problem List As Of Date 11/20/2024 Noted Resolved Mixed hyperlipidemia [E78.2] 02/02/2005 Essential hypertension, benign [I10] 02/02/2005 LOC OSTEOARTH NOS-SHLDER [M19.019] 02/02/2005 GOUT NOS [M10.9] 02/28/2007 Coronary artery disease involving [place] franz* Medication Side Effects [T88.7XXA] 01/09/2010 BPH w urinary obs/LUTS [N40.1, N13.8] 06/08/2010 Elevated PSA [R97.20] 07/06/2010 Gynecomastia [N62] 12/23/2011 Allergic rhinitis [J30.9] 10/02/2012 Controlled type 2 diabetes mellitus without com*11/10/2017 Elevated prostate specific antigen (PSA) [R97.2*04/24/2021 Prostate cancer (HCC) [C61] 07/10/2021 Abnormal stress test [R94.39] 08/27/2021 Coronary artery disease involving [place] franz*08/27/2021 09/30/2021 Presence of drug coated stent [...] root (HCC) [I77.810] 05/24/2023 Encounter Status:Closed by JANETH CLAROS on 11/20/24 Normal [facility] Prostate specific Ag [Mass/Vol] 0.47 ng/mL Normal <2.60 [facility] Comment on above: Order Comment: Speci men Type: BLOOD SPECIMEN Ordering Facility: [facility] Address: [address] [place] [address] Result Comment: Tota l PSA test methodology used is the Electrochemiluminescence Immunoassay by [employer]. Total PSA values by differing methodologies cannot be interchanged. Performed By: #### 2 857-1 #### [facility] CLIA [id number] [address] [place], [place] [address] [address] [place] Testost Martirl-mCncon 08-2 025 Testosterone [Mass/Vol] 263 ng/dL Normal 193-824 [facility] Comment on above: Order Comment: Speci men Type: BLOOD SPECIMEN Ordering Facility: [facility] Address: [address] [place] [address] Result Comment: A te stosterone level in the 193-320 ng/dL range with associated clinical symptoms is considered low and may indicate hypogonadism (from [facility] [id number]). Results >320 ng/dL are considered normal. Performed By: #### 2 [id number] #### [facility] CLIA [id number] [address] [place] [address] STATES OF [facility] [employer] Decub and/or Erecton 11-03-2024 [employer] Decub and/or Erect [facility] [address] [place], [place] [id number] [employer] Decub and/or Erect MR#: [id number] Acct: [id number] Name: JERMAINE BEGUM Rep #: [id number] : 1945 M 79 From: Candace Carrizales nd, MD PCP: Dr. Yecenia Agrawal MD Status: REG ER Study: [employer] Decub and/or Erect Date of Exam: 11/03 Exam# [id number] Ordering Dr: Sonu Rodriguez MD PROCEDURE: ABD INC DECUB AND/OR ERECT 11/03/2024 REASON FOR EXAM: CONSTIPATION TECHNIQUE: ABD INC DECUB AND/OR ERECT COMPARISON: L-spine radiographs 08/14/2023. FINDINGS: Bowel gas: Moderate constipation. No evidence of bowel obstruction. Bones: Prior bilateral hip replacements. Degenerative changes throughout the thoracolumbar spine. Other: Partially visualized median sternotomy and atrial appendage clip. RAD/Abd Inc Decub and/or Erect IMPRESSION: CONSTIPATION. Reading Location: [id number] CC: Dr. Sonu Rodriguez MD; Dr. 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 Emergency Department Summary on 11-03-2024 Emergency Department Summary [facility] Medical Records Department [address] [place] [address] Emergency Department Summary 11/03/24 MR#: [id number] Acct: [id number] Name: JERMAINE BEGUM Rep #: [id number] : 1945 79 From: Sonu Rodriguez MD PCP: Dr. Yecenia Agrawal MD Status:REG ER Location: ED HPI HPI - GI History of Present Illness Chief Complaint: Constipation Narrative Narrative: 79-year-old male recent knee surgery, on narcotic pain medication presents with 2 to 3 days of constipation. He relates history that he had a bowel movement before leaving the hospital. He does take the powder daily because has had problems with his bowels. He has history of urinary incontinence from prostate surgery in the past. He states that he likes to have a daily bowel movement, but he feels that there is hard stool in his rectum. He tried 2 fleets enemas without success. He presents with constipation over the last few days. No fevers or chills, no nausea or vomiting. [facility] Medical History Prostate cancer Dilated aortic root Incomplete right bundle branch block Internal hemorrhoid Gout Type 2 diabetes mellitus Osteoarthritis Palmar fascial fibromatosis [dupuytren] Atherosclerosis of coronary artery of [place] heart without angina pectoris Essential hypertension History of diverticulosis Hyperlipidemia Home Medications ???Medication ???Instructions ???Recorded ???Last Taken ???Type aspirin 81 mg tablet,delayed 81 mg PO DAILY 10/14/21 05/03/24 H istory release (Adult Aspirin Regimen) benazepril 40 mg tablet 40 mg PO DAILY #90 tabs 03/05/24 1 07/04/23 Rx ferrous sulfate 137 mg (45 mg 137 mg PO QDAY 03/27/24 Unknown Hi story iron) tablet,extended release mecobalamin (vitamin B12) 500 mcg 500 mcg PO DAILY 03/27/24 Unknown History chewable tablet spironolactone 25 mg tablet 25 mg PO QPM #90 tabs 09/26/24 Unk nown Rx atorvastatin 80 mg tablet 80 mg PO QHS #90 tabs 11/02/24 Unk nown Rx Allergy/AdvReac Type Severity Reaction Status Date / Time No Known Allergies Allergy Verified 11/03/24 22:14 Family History Mother , Age 84 Diabetes Heart disease Father , Age 88 CAD (coronary artery disease) Sister Cancer breast Sister , Age 60 Cancer lymph nodes Surgical History History of radical prostatectomy (11/19/21) H/O coronary artery bypass surgery (09/30/21) History of left heart catheterization (09/03/21) History of cardioversion (09/2020) History of coronary artery stent placement (10/18/14) History of total left hip replacement (03/2016) History of total right hip replacement (1996) History of tonsillectomy and adenoidectomy (1947) History of left knee replacement (2013) History of varicocele (1979) Social History Smoking Status: Light Smoker (<10/day) how long ago did patient quit smoking: Quit smoking cigarettes in 1969, quit cigars 1 month ago alcohol intake: current details: occasional substance use type: does not use caffeine: Yes Type: coffee Number of servings: 2 ROS ROS ED ROS Narrative Review of systems positive for fecal impaction feeling, no fevers or chills, no nausea or vomiting. Positive constipation for the last few days. No exacerbating or alleviating factors. EXAM Physical Exam Narrative Exam Narrative: Afebrile. Vital signs noted. Nontoxic-appearing. Cardiovascular examination reveals regular rate and rhythm lungs are clear to auscultation bilaterally, abdomen is soft and nontender with positive bowel sounds, no guarding or rebound. Neurological examination nonfocal, nonlateralizing, standing with walker. Const Vital Signs: 11/03/24 22:14 11/04/24 00:14 Temperature 98.7 F Temperature Source Oral Pulse Rate 78 99 Respiratory Rate 12 16 Blood Pressure 179/76 H 166/70 H Blood Pressure Mean 110 102 Pulse Ox 99 95 Oxygen Delivery Method Room Air Room Air MDM MDM MDM Narrative Medical decision making narrative: Differential diagnosis includes but not limited to bowel obstruction versus fecal impaction versus slow transit constipation versus opiate bowel from narcotics with recent surgery and anesthesia. X- rays will be obtained the abdomen in 2 views and interpreted by myself to help rule out obstruction and to see the amount of fecal material throughout the colon/rectum. On my independent interpretation of the abdominal x-rays, there is a large amount of stool throughout the colon but no true fecal impaction noted in the rectum. Nonobstructive gas pattern. I reviewed the radiology report which confirms my independent interpretation (more content not included)... Normal [facility] JER[facility] ([id number]) 1945 M NFR Date Time Provider Department 11/02/24 PHILLIP BARNETT During your visit today, we recorded the following information about you: Kaitlin Romano 11/02/2024 9:55 AM Signed Patient called requesting to schedule with Dr. Barnett. He would like to transfer his care from his oncologist Dr. Beavers at [facility] since he lives in [place] and his spouse see's Dr. Barnett. He states he's do for labs and ov in November. Please review and advise. Irene Friedman, NELLY 11/02/2024 11:10 AM Signed Ok to schedule JUNIOR DATA ANALYST appointment in November with Dr. Barnett. I will need to ask Dr. Barnett if he is willing to order prior to seeing him. NELLY York Angela 11/02/2024 1:21 PM Signed Lvm for patient to return the call to schedule with Dr. Barnett in November JUNIOR DATA ANALYST/TRANSFER CARE/SELF REFERRING* Kaitlin Sanders 11/02/2024 2:03 PM Signed Patient called back and scheduled ov 11/27/ Patient is requesting to do labs [address] Barnett allows. Irene Ha RN 11/06/2024 12:[address] Rahul ferguson to get labs prior to OV. Labs pended. NELLY York Cathleen, RN 11/06/2024 12:38 PM Signed Addended by: IRENE FRIEDMAN on: 11/06/2024 12:38 PM Modules accepted: Orders Allergies As of Date: 11/02/2024 (No Known Allergies) Date Reviewed: 05/24/2023 Reviewed by: Precious Deleon MA - Fully Assessed Reason for Visit: New Patient [172] Prescriptions as of 11/06/2024 - spironolactone (ALDACTONE) 25 mg tablet Take 1 tablet by mouth once daily. - benazepril 40 mg tablet Take 1 tablet by mouth once daily. - atorvastatin (LIPITOR) 80 mg tablet Take 1 tablet by mouth daily at bedtime. - aspirin, enteric coated (ASPIRIN, ENTERIC COATED) 81 mg EC tablet Take 81 mg by mouth once daily. Facility-Administered Medications as of 11/06/2024 - leuprolide 30 mg injection (ELIGARD) Meds Comments as of 03/26/2016: Problem List As Of Date 11/02/2024 Noted Resolved Mixed hyperlipidemia [E78.2] 02/02/2005 Essential hypertension, benign [I10] 02/02/2005 LOC OSTEOARTH NOS-SHLDER [M19.019] 02/02/2005 GOUT NOS [M10.9] 02/28/2007 Coronary artery disease involving [place] franz* Medication Side Effects [T88.7XXA] 01/09/2010 BPH w urinary obs/LUTS [N40.1, N13.8] 06/08/2010 Elevated PSA [R97.20] 07/06/2010 Gynecomastia [N62] 12/23/2011 Allergic rhinitis [J30.9] 10/02/2012 Controlled type 2 diabetes mellitus without com*11/10/2017 Elevated prostate specific antigen (PSA) [R97.2*04/24/2021 Prostate cancer (HCC) [C61] 07/10/2021 Abnormal stress test [R94.39] 08/27/2021 Coronary artery disease involving [place] franz*08/27/2021 09/30/2021 Presence of drug coated stent [...] root (HCC) [I77.810] 05/24/2023 Encounter Status:Closed by KAITLIN ROMANO on 11/04/24 Normal [facility] .Auto Diffon 10-24-2024 Basophil, Absolute 0.0 10 3/mcL Normal 0.0-0.3 [facility] Comment on above: Performed By: #### A LUIS F, GFR, CBC, BMP, ADIFF #### [address] [address] Basophils/100 WBC (Bld) 0.0 % Normal 0.0-2.5 [facility] Comment on above: Performed By: #### A LUIS F, GFR, CBC, BMP, ADIFF #### [address] [address] Eosinophil, Absolute 0.0 10 3/mcL Normal 0.0-0.7 [facility] Comment on above: Performed By: #### A LUIS F, GFR, CBC, BMP, ADIFF #### [address] [address] Eosinophils/100 WBC (Bld) 0.0 % Normal 0.0-6.0 [facility] Comment on above: Performed By: #### A LUIS F, GFR, CBC, BMP, ADIFF #### [address] [address] Lymphocyte, Absolute 0.3 10 3/mcL Low 0.9-4.3 [facility] Comment on above: Performed By: #### A LUIS F, GFR, CBC, BMP, ADIFF #### [address] [address] Lymphocytes/100 WBC (Bld) 2.5 % Low 20.0-40.0 [facility] Comment on above: Performed By: #### A LUIS F, GFR, CBC, BMP, ADIFF #### [address] [address] Monocyte, Absolute 1.2 10 3/mcL Normal 0.1-1.4 [facility] Comment on above: Performed By: #### A LUIS F, GFR, CBC, BMP, ADIFF #### [address] [address] Monocytes/100 WBC (Bld) 8.7 % Normal 2.0-13.0 [facility] Comment on above: Performed By: #### A LUIS F, GFR, CBC, BMP, ADIFF #### [address] [address] Neutrophils/100 WBC (Bld) 88.8 % High 50.0-75.0 [facility] Comment on above: Performed By: #### A LUIS F, GFR, CBC, BMP, ADIFF #### [address] [address] .GFRon 10-24-2024 Estimated Glomerular Filtration Rate 77 ml/min/1.73sqm Normal [facility] Comment on above: Result Comment: Stages [...] the eGFR results. Performed By: #### A GUALBERTO DELGADOGEL #### [address] [address] .NEUABSon 10-24-2024 Neutrophil, Absolute 12.1 10 3/mcL High 2.3-8.1 [facility] Comment on above: Performed By: #### A LUIS F, GFR, CBC, BMP, ADIFF #### [address] [address] BMPon 10-24-2024 BUN/Creatinine Ratio 26 ratio Normal 7-27 [facility] Comment on above: Performed By: #### A LUIS F, GFR, CBC, BMP, ADIFF #### [address] [address] Calcium [Mass/Vol] 8.4 mg/dL Normal 8.4-10.2 [facility] Comment on above: Performed By: #### A LUIS F, GFR, CBC, BMP, ADIFF #### [address] [address] Chloride [Moles/Vol] 102 mmol/L Normal 98-107 [facility] Comment on above: Performed By: #### A LUIS F, GFR, CBC, BMP, ADIFF #### [address] [address] CO2 [Moles/Vol] 24 mmol/L Normal 23-31 [facility] Comment on above: Performed By: #### A LUIS F, GFR, CBC, BMP, ADIFF #### [place] [id number] Creatinine [Mass/Vol] 0.99 mg/dL Normal 0.67-1.17 [facility] Comment on above: Performed By: #### A LUIS F, GFR, CBC, BMP, ADIFF #### [place] [address] Electrolyte Balance 9.0 mEq/L Normal 4.0-15.0 [facility] Comment on above: Performed By: #### A LUIS F, GFR, CBC, BMP, ADIFF #### [place] [address] Glucose [Mass/Vol] 211 mg/dL High 83-110 [facility] Comment on above: Performed By: #### A LUIS F, GFR, CBC, BMP, ADIFF #### [place] [address] Potassium [Moles/Vol] 4.9 mmol/L Normal 3.5-5.1 [facility] Comment on above: Performed By: #### A LUIS F, GFR, CBC, BMP, ADIFF #### [place] [address] Sodium [Moles/Vol] 135 mmol/L Low 136-145 [facility] Comment on above: Performed By: #### A LUIS F, GFR, CBC, BMP, ADIFF #### [place] [address] Urea nitrogen [Mass/Vol] 26 mg/dL High 7-18 [facility] Comment on above: Performed By: #### A ULIS F, GFR, CBC, BMP, ADIFF #### [address] [address] CBCon 10-24-2024 Erythrocyte distribution width (RBC) [Ratio] 14.2 % Normal 11.5-15.5 [facility] Comment on above: Performed By: #### A LUIS F, GFR, CBC, BMP, ADIFF #### [place] [address] Hematocrit (Bld) [Volume fraction] 31.4 % Low 40.0-52.0 [facility] Comment on above: Performed By: #### A LUIS F, GFR, CBC, BMP, ADIFF #### [place] [address] Hgb 10.6 G/dL Low 13.0-17.5 [facility] Comment on above: Performed By: #### A LUIS F, GFR, CBC, BMP, ADIFF #### [place] [id number] MCH (RBC) [Entitic mass] 29.5 pg Normal 27.0-33.0 [facility] Comment on above: Performed By: #### A LUIS F, GFR, CBC, BMP, ADIFF #### [place] [address] MCHC 33.9 G/dL Normal 32.0-36.0 [facility] Comment on above: Performed By: #### A LUIS F, GFR, CBC, BMP, ADIFF #### [place] [id number] MCV (RBC) [Entitic vol] 87.1 fL Normal 81.0-100.0 [facility] Comment on above: Performed By: #### A LUIS F, GFR, CBC, BMP, ADIFF #### [place] [id number] Platelet 191 10 3/mcL Normal 150-450 [facility] Comment on above: Performed By: #### A LUIS F, GFR, CBC, BMP, ADIFF #### [place] [address] Platelet mean volume (Bld) [Entitic vol] 8.3 fL Normal 6.4-10.5 [facility] Comment on above: Performed By: #### A LUIS F, GFR, CBC, BMP, ADIFF #### [place] [id number] [place], [place] [address] RBC 3.60 10 6/mcL Low 4.50-6.00 [facility] Comment on above: Performed By: #### A LUIS F, GFR, CBC, BMP, ADIFF #### [place] [id number] [place], [place] [address] WBC 13.6 10 3/mcL High 4.5-10.8 [facility] Comment on above: Performed By: #### A LUIS F, GFR, CBC, BMP, ADIFF #### [place] [id number] [place], [place] [address] LABORATORYOrdered By: SYSTEM SYSTEM on 10-24-2024 Basophils [...] Interp Positive Invalid Interpretation Code [facility] Comment on above: Performed By: #### A BSGEL, ABOGEL #### [place] [id number] [place], [place] [address] ABS (Gel)on 10-23-2024 ABSC Interp (Gel) Negative Normal [facility] Comment on above: Performed By: #### A BSGEL, ABOGEL #### [place] [id number] [place], [place] [address] LABORATORYOrdered By: Anam Rendon on 10-23-2024 ABO and Rh group Nom (Bld) Blood group O Rh(D) positive Invalid Interpretation Code AO BB Auto SS Blood group antibody screen Ql Negative ABSC (10/23/24 10:51 AM) Normal AO BB Auto SS LABORATORYOrdered By: Wes carmona on 10-23-2024 Glucose [Mass/Vol] 134 mg/dL High 82 - 115 mg/dL [facility] Work Phone: US ANESTHESIA BLOCKon 2024 US ANESTHESIA BLOCK ORIGINAL Images acquired, not reported on this accession number. Normal [facility] XR KNEE 1 OR 2 VIEWS [...] 10/23/2024 1:32:59 PM Ordering Provider: GRISELDA LYNCH [facility] CT KNEE W/O CONTRAST RIGHTon 08-29-2024 CT [...] medial compartment with asymmetric joint space narrowing, [id number]-ac-[id number], subchondral sclerosis, subchondral cysts and marginal osteophyte [...] Ordering Provider: GRISELDA LYNCH Normal [facility] MRSAPCRon 08-29-2024 MRSA (PCR) Not detected Normal Not Detected [facility] Comment on above: Result Comment: [place] [id number] Performed By: #### M RSAPCR #### [address] [address] MRSA PCR Int Normal [facility] Comment on above: Result Comment: MRSA [...] Below Performed By: #### M RSAPCR #### [address] [address] Absolute lymphocyte countOrd ered By: Yecenia Agrawal on 08-28-2024 Lymphocytes Auto (Unsp spec) [#/Vol] 0.59 10*3/uL Low 0.83-4.[address] [facility] Absolute neutrophil countOrd ered By: Yecenia Agrawal on 08-28-2024 Neutrophils (Bld) [#/Vol] 4.3 10*3/uL 2.0-7.[address] [facility] Anion gap in Serum or Plasma Ordered By: Yecenia Alvaradoke on 08-28-2024 Anion gap [Moles/Vol] 10 mmol/L - [facility] Automated lymphocyte count a s percentage of total leukocytesOrdered By: Yecenia Alvaradoke on 08-28-2024 Lymphocytes/100 WBC Auto (Unsp spec) 10.1 % Low 19-[address] [facility] BUN/creatinine ratioOrdered By: [facility] Tanja on 08-28-2024 Urea nitrogen/Creatinine [Mass ratio] 18.9 mg/mg 10-[address] [facility] Basophil percentageOrdered B y: Yecenia Alvaradoke on 08-28-2024 Basophils/100 WBC (Bld) 0.5 % 0-[address] [facility] Bilirubin, totalOrdered By: Yecenia Alvaradoke on 08-28-2024 Bilirubin [Mass/Vol] 0.66 mg/dL 0.00-1.30 [facility] CBC W/Diff, Automatedon 08-14 Absolute Lymph 0.59 X10 3/uL Low 0.83-4.[address] [facility] Comment on above: Order Comment: Order Date: 08/28/24Order Info: 0184-1 - CBCD Performed By: #### L 100.0100, L500.4050, L501.9985, L500.4100 ####[facility] [address] [place], [place], [phone] Absolute Neut 4.3 X10 3/uL Normal 2.0-7.[address] [facility] Comment on above: Order Comment: Order Date: 08/28/24Order Info: 0184-1 - CBCD Performed By: #### L 100.0100, L500.4050, L501.9985, L500.4100 ####[facility] [address] [place], [address] Basophils/100 WBC (Bld) 0.5 % Normal 0-[address] [facility] Comment on above: Order Comment: Order Date: 08/28/24Order Info: 0184-1 - CBCD Performed By: #### L 100.0100, L500.4050, L501.9985, L500.4100 ####[facility] [address] [place], [address] Eosinophils/100 WBC (Bld) 5.1 % High 0-[address] [facility] Comment on above: Order Comment: Order Date: 08/28/24Order Info: 0184-1 - CBCD Performed By: #### L 100.0100, L500.4050, L501.9985, L500.4100 ####[facility] [address] [place], [address] Erythrocyte distribution width (RBC) [Ratio] 14.0 % Normal 11.6-14.[address] [facility] Comment on above: Order Comment: Order Date: 08/28/24Order Info: 0184-1 - CBCD Performed By: #### L 100.0100, L500.4050, L501.9985, L500.4100 ####[facility] [address] [place], [address] Hematocrit (Bld) [Volume fraction] 38.1 % Low 40-[address] [facility] Comment on above: Order Comment: Order Date: 08/28/24Order Info: 0184-1 - CBCD Performed By: #### L 100.0100, L500.4050, L501.9985, L500.4100 ####[facility] [address] [place], [address] Hemoglobin (Bld) [Mass/Vol] 12.4 g/dL Low 13.0-16.[address] [facility] Comment on above: Order Comment: Order Date: 08/28/24Order Info: 0184-1 - CBCD Performed By: #### L 100.0100, L500.4050, L501.9985, L500.4100 ####[facility] [address] [place], [address] IG% 0.200 Normal 0.0-0.[address] [facility] Comment on above: Order Comment: Order Date: 08/28/24Order Info: 0184-1 - CBCD Result Comment: IG% - Immature Granulocytes (promyelocytes, myelocytes and metamyelocytes) > 1% indicates that a LEFT SHIFT is Present. Performed By: #### L 100.0100, L500.4050, L501.9985, L500.4100 ####[facility] [address] [place], [address] Lymphocytes/100 WBC (Bld) 10.1 % Low 19-[address] [facility] Comment on above: Order Comment: Order Date: 08/28/24Order Info: 0184- - CBCD Performed By: #### L 100.0100, L500.4050, L501.9985, L500.4100 ####[facility] [address] [place], [address] MCH (RBC) [Entitic mass] 29.2 pg Normal 27.0-32.[address] [facility] Comment on above: Order Comment: Order Date: 08/28/24Order Info: 0184-1 - CBCD Performed By: #### L 100.0100, L500.4050, L501.9985, L500.4100 ####[facility] [address] [place], [address] MCHC (RBC) [Mass/Vol] 32.5 g/dL Normal 32-36 [facility] Comment on above: Order Comment: Order Date: 08/28/24Order Info: 0184-1 - CBCD Performed By: #### L 100.0100, L500.4050, L501.9985, L500.4100 ####[facility] [address] [place], [address] MCV (RBC) [Entitic vol] 89.6 fL Normal 80-[address] [facility] Comment on above: Order Comment: Order Date: 08/28/24Order Info: 0184-1 - CBCD Performed By: #### L 100.0100, L500.4050, L501.9985, L500.4100 ####[facility] [address] [place], [address] Monocytes/100 WBC (Bld) 10.4 % High 0-[address] [facility] Comment on above: Order Comment: Order Date: 08/28/24Order Info: 0184-1 - CBCD Performed By: #### L 100.0100, L500.4050, L501.9985, L500.4100 ####[facility] [address] [place], [address] Neutrophils/100 WBC (Bld) 73.7 % High 47-[address] [facility] Comment on above: Order Comment: Order Date: 08/28/24Order Info: 0184-1 - CBCD Performed By: #### L 100.0100, L500.4050, L501.9985, L500.4100 ####[facility] [address] [place], [address] Nucleated RBC (Bld) [#/Vol] 0 10*3/uL Normal 0-[address] [facility] Comment on above: Order Comment: Order Date: 08/28/24Order Info: 0184-1 - CBCD Performed By: #### L 100.0100, L500.4050, L501.9985, L500.4100 ####[facility] [address] [place], [address] Platelet mean volume (Bld) [Entitic vol] 10.3 fL Normal 6.2-12.[address] [facility] Comment on above: Order Comment: Order Date: 08/28/24Order Info: 0184-1 - CBCD Performed By: #### L 100.0100, L500.4050, L501.9985, L500.4100 ####[facility] [address] [place], [address] Platelets (Bld) [#/Vol] 229 10*3/uL Normal 150-[address] [facility] Comment on above: Order Comment: Order Date: 08/28/24Order Info: 0184-1 - CBCD Performed By: #### L 100.0100, L500.4050, L501.9985, L500.4100 ####[facility] [address] [place], [address] RBC (Bld) [#/Vol] 4.25 10*6/uL Low 4.6-6.2 [facility] Comment on above: Order Comment: Order Date: 08/28/24Order Info: 0184-1 - CBCD Performed By: #### L 100.0100, L500.4050, L501.9985, L500.4100 ####[facility] [address] [place], [address] RDW SD 45.1 fl High 35.1-43.[address] [facility] Comment on above: Order Comment: Order Date: 08/28/24Order Info: 0184-1 - CBCD Performed By: #### L 100.0100, L500.4050, L501.9985, L500.4100 ####[facility] [address] [place], [address] WBC (Bld) [#/Vol] 5.9 10*3/uL Normal 4.4-11.0 [facility] Comment on above: Order Comment: Order Date: 08/28/24Order Info: 0184-1 - CBCD Performed By: #### L 100.0100, L500.4050, L501.9985, L500.4100 ####[facility] [address] [place], [address] Calculated very low density lipoprotein (VLDL) cholesterol measurementOrdered By: Yecenia Agrawal on 08-28-2024 Calculated very low density lipoprotein (VLDL) cholesterol measurement 17 mg/dL 5-[address] [facility] VLDL Cholesterol 17 mg/dL 5-[address] [facility] Carbon dioxide, total [Moles /volume] in Central venous bloodOrdered By: Yecenia Agrawal on 08-28-2024 CO2 [Moles/Vol] 21.0 mmol/L 21.0-32.[address] [facility] Chloride assayOrdered By: eJrome Agrawal on 08-28-2024 Chloride [Moles/Vol] 107 mmol/L 98-108 [facility] Comprehensive Metabolic Prof ilon 08-28-2024 Albumin [Mass/Vol] 4.0 g/dL Normal 3.4-4.8 [facility] Comment on above: Order Comment: Order Date: 08/28/24Order Info: [id number] - CMPOrder Info: [id number] - LIPID Performed By: #### L 100.0100, L500.4050, L501.9985, L500.4100 ####[facility] [address] [place], [address] Albumin/Globulin [Mass ratio] 1.4 {ratio} Normal 0.9-2.[address] [facility] Comment on above: Order Comment: Order Date: 08/28/24Order Info: [id number] - CMPOrder Info: [id number] - LIPID Performed By: #### L 100.0100, L500.4050, L501.9985, L500.4100 ####[facility] [address] [place], [address] ALK PHOS 127 U/L Normal 40-[address] [facility] Comment on above: Order Comment: Order Date: 08/28/24Order Info: [id number] - CMPOrder Info: [id number] - LIPID Performed By: #### L 100.0100, L500.4050, L501.9985, L500.4100 ####[facility] [address] [place], [address] ALT [Catalytic activity/Vol] 19 U/L Normal <=[address] [facility] Comment on above: Order Comment: Order Date: 08/28/24Order Info: [id number] - CMPOrder Info: [id number] - LIPID Performed By: #### L 100.0100, L500.4050, L501.9985, L500.4100 ####[facility] [address] [place], [address] AST [Catalytic activity/Vol] 26 U/L Normal <=[address] [facility] Comment on above: Order Comment: Order Date: 08/28/24Order Info: [id number] - CMPOrder Info: [id number] - LIPID Performed By: #### L 100.0100, L500.4050, L501.9985, L500.4100 ####[facility] [address] [place], [address] Bilirubin [Mass/Vol] 0.66 mg/dL Normal 0.00-1.30 [facility] Comment on above: Order Comment: Order Date: 08/28/24Order Info: [id number] - CMPOrder Info: [id number] - LIPID Performed By: #### L 100.0100, L500.4050, L501.9985, L500.4100 ####[facility] [address] [place], [address] BUN/CRE 18.9 RATIO Normal 10-[address] [facility] Comment on above: Order Comment: Order Date: 08/28/24Order Info: [id number] - CMPOrder Info: [id number] - LIPID Performed By: #### L 100.0100, L500.4050, L501.9985, L500.4100 ####[facility] [address] [place], [address] Calcium [Mass/Vol] 9.2 mg/dL Normal 7.6-11.0 [facility] Comment on above: Order Comment: Order Date: 08/28/24Order Info: [id number] - CMPOrder Info: [id number] - LIPID Performed By: #### L 100.0100, L500.4050, L501.9985, L500.4100 ####[facility] [address] [place], [address] Chloride [Moles/Vol] 107 mmol/L Normal 98-108 [facility] Comment on above: Order Comment: Order Date: 08/28/24Order Info: [id number] - CMPOrder Info: [id number] - LIPID Performed By: #### L 100.0100, L500.4050, L501.9985, L500.4100 ####[facility] [address] [place], [address] CO2 [Moles/Vol] 21.0 mmol/L Normal 21.0-32.[address] [facility] Comment on above: Order Comment: Order Date: 08/28/24Order Info: [id number] - CMPOrder Info: [id number] - LIPID Performed By: #### L 100.0100, L500.4050, L501.9985, L500.4100 ####[facility] [address] [place], [address] Creatinine [Mass/Vol] 1.04 mg/dL Normal 0.70-1.20 [facility] Comment on above: Order Comment: Order Date: 08/28/24Order Info: [id number] - CMPOrder Info: [id number] - LIPID Performed By: #### L 100.0100, L500.4050, L501.9985, L500.4100 ####[facility] [address] [place], [address] GAP 10 Normal 5-[address] [facility] Comment on above: Order Comment: Order Date: 08/28/24Order Info: [id number] - CMPOrder Info: [id number] - LIPID Performed By: #### L 100.0100, L500.4050, L501.9985, L500.4100 ####[facility] [address] [place], [address] GFR/1.73 sq M.predicted among non-blacks MDRD (S/P/Bld) [Vol rate/Area] 73 mL/min/{1.73_m2} Normal >[address] [facility] Comment on above: Order Comment: Order Date: 08/28/24Order Info: [id number] - CMPOrder Info: [id number] - LIPID Result Comment: mL/m in/1.73m2 CKD-EPI Creatinine Equation (2020) Performed By: #### L 100.0100, L500.4050, L501.9985, L500.4100 ####[facility] [address] [place], [address] Globulin (S) [Mass/Vol] 2.8 g/dL Normal 2.2-4.[address] [facility] Comment on above: Order Comment: Order Date: 08/28/24Order Info: [id number] - CMPOrder Info: [id number] - LIPID Performed By: #### L 100.0100, L500.4050, L501.9985, L500.4100 ####[facility] [address] [place], [address] Glucose [Mass/Vol] 122 mg/dL High 70-99 [facility] Comment on above: Order Comment: Order Date: 08/28/24Order Info: [id number] - CMPOrder Info: [id number] - LIPID Performed By: #### L 100.0100, L500.4050, L501.9985, L500.4100 ####[facility] [address] [place], [address] Potassium [Moles/Vol] 4.5 mmol/L Normal 3.3-5.1 [facility] Comment on above: Order Comment: Order Date: 08/28/24Order Info: [id number] - CMPOrder Info: [id number] - LIPID Performed By: #### L 100.0100, L500.4050, L501.9985, L500.4100 ####[facility] [address] [place], [address] Sodium [Moles/Vol] 138 mmol/L Normal 133-145 [facility] Comment on above: Order Comment: Order Date: 08/28/24Order Info: [id number] - CMPOrder Info: [id number] - LIPID Performed By: #### L 100.0100, L500.4050, L501.9985, L500.4100 ####[facility] [address] [place], [address] T PROT 6.8 g/dL Normal 5.9-8.[address] [facility] Comment on above: Order Comment: Order Date: 08/28/24Order Info: [id number] - CMPOrder Info: [id number] - LIPID Performed By: #### L 100.0100, L500.4050, L501.9985, L500.4100 ####[facility] [address] [place], [address] Urea nitrogen [Mass/Vol] 20 mg/dL High 4-[address] [facility] Comment on above: Order Comment: Order Date: 08/28/24Order Info: [id number] - CMPOrder Info: [id number] - LIPID Performed By: #### L 100.0100, L500.4050, L501.9985, L500.4100 ####[facility] [address] [place], [address] Eosinophil percentageOrdered By: Yecenia Agrawal on 08-28-2024 Eosinophils/100 WBC (Bld) 5.1 % High 0-[address] [facility] Erythrocyte distribution wid th (RBC) [Ratio]Ordered By: Yecenia Agrawal on 08-28-2024 Erythrocyte distribution width (RBC) [Entitic vol] 45.1 fL High 35.1-43.[address] [facility] Erythrocyte distribution wid th ratioOrdered By: Yecenia Agrawal on 08-28-2024 Erythrocyte distribution width (RBC) [Ratio] 14.0 % 11.6-14.[address] [facility] Erythrocyte distribution wid th standard deviationOrdered By: Yecenia Agrawal on 08-28-2024 Erythrocyte distribution width (RBC) [Ratio] 45.1 fl High 35.1-43.[address] [facility] GFR/1.73 sq M.predicted kelly g non-blacks MDRD (S/P/Bld) [Vol rate/Area]Ordered By: Yecenia Agrawal on 08-28-2024 Estimated GFR (MDRD) Non-Af Amer 73 >[address] [facility] Comment on above: mL/min/1.73m2 CKD-EP I Creatinine Equation (2020) Glomerular filtration rate ( GFR) estimation/1.73 sq m using serum, plasma, or whole bOrdered By: Yecenia Agrawal on 08-28-2024 GFR/1.73 sq M.predicted among non-blacks MDRD (S/P/Bld) [Vol rate/Area] 73 mL/min/{1.73_m2} >[address] [facility] Comment on above: mL/min/1.73m2 CKD-EP I Creatinine Equation (2020) Hematocrit Auto (Bld) [Volum e fraction]Ordered By: Yecenia Agrawal on 08-28-2024 Hematocrit (Bld) [Volume fraction] 38.1 % Low 40-[address] [facility] Hemoglobin A1con 08-28-2024 HbA1c (Bld) [Mass fraction] 7.3 % High <=5.[address] [facility] Comment on above: Order Comment: Order Date: 08/28/24Order Info: [id number] - A1C Result Comment: Norm al < 5.7 % Prediabetic 5.7 - 6.4 % Diabetic >or= 6.5 % Please note range changes. Performed By: #### L 100.0100, L500.7880, L501.1235, L500.9284 ####[facility] [address] [place], [place], [id number] Hemoglobin A1c percentageOrd ered By: Yecenia Agrawal on 08-28-2024 HbA1c (Bld) [Mass fraction] 7.3 % High <5.[address] [facility] Comment on above: Normal < 5.7 % Predi abetic 5.7 - 6.4 % Diabetic >or= 6.5 % Please note range changes. Hemoglobin measurementOrdere d By: Yecenia Agrawal on 08-28-2024 Hemoglobin (Bld) [Mass/Vol] 12.4 g/dL Low 13.0-16.[address] [facility] Immature granulocytes/100 WB C Auto (Bld)Ordered By: Yecenia Agrawal on 08-28-2024 Immature granulocytes/100 WBC (Bld) 0.200 % 0.0-0.[address] [facility] Comment on above: IG% - Immature Granu locytes (promyelocytes, myelocytes and metamyelocytes) > 1% indicates that a LEFT SHIFT is Present. LDL calc ser/plasOrdered By: Yecenia Agrawal on 08-28-2024 Cholesterol in LDL [Mass/Vol] 60 mg/dL [facility] Comment on above: Xnqugnzjrk=636-815 m g/dL & Higher Yxsm=193 mg/dL or greater LDL Cholesterol, Calculated 60 mg/dL [facility] Comment on above: Uhzptavbgn=566-906 m g/dL & Higher Hckg=082 mg/dL or greater Laboratory - Chemistry and C hemistry - challengeOrdered By: Yecenia Agrawal on 08-28-2024 AST [Catalytic activity/Vol] 26 U/L <[address] [facility] Lipid Profileon 08-28-2024 CHOL:HDL 3.[address] [facility] Comment on above: Order Comment: Order Date: 08/28/24Order Info: [id number] - CMPOrder Info: [id number] - LIPID Performed By: #### L 100.0100, L500.4050, L501.9985, L500.4100 ####[facility] [address] [place], [place], [address] Cholesterol [Mass/Vol] 112 mg/dL Normal <=[address] [facility] Comment on above: Order Comment: Order Date: 08/28/24Order Info: [id number] - CMPOrder Info: [id number] - LIPID Result Comment: Chol esterol level, Desirable <200 mg/dL Borderline high cholesterol 200-239 mg/dL High cholesterol >=240 mg/dL Recommendations of the NCEP Adult Treatment Panel for the following risk-cutoff thresholds for the [place] population. Performed By: #### L 100.0100, L500.4050, L501.9985, L500.4100 ####[facility] [address] [place], [address] Cholesterol in HDL [Mass/Vol] 34 mg/dL Low [facility] Comment on above: Order Comment: Order Date: 08/28/24Order Info: [id number] - CMPOrder Info: [id number] - LIPID Result Comment: Gina onal Cholesterol Education Program (NCEP) guidelines: <40 mg/dL: Low HDL-cholesterol (major risk factor for CHD) >= 60 mg/dL: High HDL-cholesterol (negative risk factor for CHD) HDL-cholesterol is affected by a number of factors, e.g. smoking, exercise, hormones, sex and age. Performed By: #### L 100.0100, L500.4050, L501.9985, L500.4100 ####[facility] [address] [place], [address] Cholesterol in LDL [Mass/Vol] 60 mg/dL Normal [facility] Comment on above: Order Comment: Order Date: 08/28/24Order Info: [id number] - CMPOrder Info: [id number] - LIPID Result Comment: Bord zmnlwk=579-593 mg/dL Higher Vifs=185 mg/dL or greater Performed By: #### L 100.0100, L500.4050, L501.9985, L500.4100 ####[facility] [address] [place], [address] Cholesterol in VLDL [Mass/Vol] 17 mg/dL Normal 5-[address] [facility] Comment on above: Order Comment: Order Date: 08/28/24Order Info: [id number] - CMPOrder Info: [id number] - LIPID Performed By: #### L 100.0100, L500.4050, L501.9985, L500.4100 ####[facility] [address] [place], [address] Triglyceride [Mass/Vol] 87 mg/dL Normal [facility] Comment on above: Order Comment: Order Date: 08/28/24Order Info: [id number] - CMPOrder Info: [id number] - LIPID Result Comment: The drugs N-Acetylcysteine and Metamizole may falsely depress this assay. Normal range: <150 mg/dL Borderline High: 150-199 mg/dL High: 200-499 mg/dL Very High: >500 mg/dL Performed By: #### L 100.0100, L500.4050, L501.9985, L500.4100 ####[facility] [address] [place], [address] Lymphocytes Auto (Unsp spec) [#/Vol]Ordered By: Yecenia Agrawal on 08-28-2024 Lymphocytes (Bld) [#/Vol] 0.59 10*3/uL Low 0.83-4.[address] [facility] Lymphocytes/100 WBC Auto (Un sp spec)Ordered By: Yecenia Agrawal on 08-28-2024 Lymphocytes/100 WBC (Bld) 10.1 % Low 19-[address] [facility] MCV (mean corpuscular volume ) determinationOrdered By: Yecenia Agrawal on 08-28-2024 MCV (RBC) [Entitic vol] 89.6 fL 80-[address] [facility] Mean corpuscular hemoglobin (MCH) determinationOrdered By: Yecenia Agrawal on 08-28-2024 MCH (RBC) [Entitic mass] 29.2 pg 27.0-32.[address] [facility] Mean corpuscular hemoglobin concentration (MCHC) determinationOrdered By: Yecenia Agrawal on 08-28-2024 MCHC (RBC) [Mass/Vol] 32.5 g/dL 32-36 [facility] Mean platelet volume determi nationOrdered By: Yecenia Agrawal on 08-28-2024 Platelet mean volume (Bld) [Entitic vol] 10.3 fL 6.2-12.[address] [facility] Monocyte percentageOrdered B y: Yecenia Agrawal on 08-28-2024 Monocytes/100 WBC (Bld) 10.4 % High 0-[address] [facility] Neutrophil percentageOrdered By: Yecenia Agrawal on 08-28-2024 Neutrophils/100 WBC (Bld) 73.7 % High 47-[address] [facility] Nucleated red blood cell per centageOrdered By: Yecenia Agrawal on 08-28-2024 Nucleated RBC/100 WBC (Bld) [Ratio] 0 % 0-[address] [facility] Platelet countOrdered By: Jerome Agrawal on 08-28-2024 Platelets (Bld) [#/Vol] 229 10*3/uL 150-[address] [facility] Potassium (Unsp spec) [Mass/ Vol]Ordered By: Yecenia Agrawal on 08-28-2024 Potassium [Moles/Vol] 4.5 mmol/L 3.3-5.1 [facility] Potassium measurement (mass/ volume)Ordered By: Yecenia Agrawal on 08-28-2024 Potassium (Unsp spec) [Mass/Vol] 4.5 mmol/L 3.3-5.[address] [facility] RBC Auto (Bld) [#/Vol]Ordere d By: Yecenia Agrawal on 08-28-2024 RBC (Bld) [#/Vol] 4.25 10*6/uL Low 4.6-6.2 [facility] Screening total cholesterol/ high density lipoprotein (HDL) cholesterol ratioOrdered By: Yecenia Agrawal on 08-28-2024 Cholesterol.total/Cho lesterol in HDL [Mass ratio] 3.26 {ratio} [facility] Serum creatinine measurement (mass/volume)Ordered By: Yecenia Agrawal on 08-28-2024 Creatinine [Mass/Vol] 1.04 mg/dL 0.70-1.20 [facility] Serum globulin measurementOr dered By: Yecenia Agrawal on 08-28-2024 Globulin (S) [Mass/Vol] 2.8 g/dL 2.2-4.[address] [facility] Serum glucose measurement (m ass/volume)Ordered By: Yecenia Agrawal on 08-28-2024 Glucose [Mass/Vol] 122 mg/dL High 70-99 [facility] Serum or plasma alanine keen otransferase (ALT) measurementOrdered By: Yecenia Agrawal on 08-28-2024 ALT [Catalytic activity/Vol] 19 U/L <[address] [facility] Serum or plasma albumin kyleigh urement (mass/volume)Ordered By: Yecenia Agrawal on 08-28-2024 Albumin [Mass/Vol] 4.0 g/dL 3.4-4.8 [facility] Serum or plasma albumin/glob ulin mass ratioOrdered By: Yecenia Agrawal on 08-28-2024 Albumin/Globulin [Mass ratio] 1.4 {ratio} 0.9-2.[address] [facility] Serum or plasma alkaline alexandra sphatase measurementOrdered By: Yecenia Agrawal on 08-28-2024 ALP [Catalytic activity/Vol] 127 U/L 40-[address] [facility] Serum or plasma calcium kyleigh urement (mass/volume)Ordered By: Yecenia Agrawal on 08-28-2024 Calcium [Mass/Vol] 9.2 mg/dL 7.6-11.0 [facility] Serum or plasma cholesterol in HDL measurement (mass/volume)Ordered By: Yecenia Agrawal on 08-28-2024 Cholesterol in HDL [Mass/Vol] 34 mg/dL Low >[address] [facility] Comment on above: National Cholesterol Education Program (NCEP) guidelines:<40 mg/dL: Low HDL-cholesterol (major risk factor for CHD)>= 60 mg/dL: High HDL-cholesterol (negative risk factor for CHD)HDL-cholesterol is affected by a number of factors, e.g. smoking, exercise, hormones, sex and age. Serum or plasma cholesterol measurement (mass/volume)Ordered By: Yecenia Agrawal on 08-28-2024 Cholesterol [Mass/Vol] 112 mg/dL <[address] [facility] Comment on above: Cholesterol level, D esirable <200 mg/dLBorderline high cholesterol 200-239 mg/dLHigh cholesterol >=240 mg/dLRecommendations of the NCEP Adult Treatment Panel for the following risk-cutoff thresholds for the [place] population. Serum or plasma urea nitroge n measurement (mass/volume)Ordered By: Yecenia Agrawal on 08-28-2024 Urea nitrogen [Mass/Vol] 20 mg/dL High 4-[address] [facility] Sodium levelOrdered By: Freddy Agrawal on 08-28-2024 Sodium [Moles/Vol] 138 mmol/L 133-145 [facility] Total proteinOrdered By: Rhonda Agrawal on 08-28-2024 Protein [Mass/Vol] 6.8 g/dL 5.9-8.4 [facility] Triglycerides measurementOrd ered By: Yecenia Agrawal on 08-28-2024 Triglyceride [Mass/Vol] 87 mg/dL <[address] [facility] Comment on above: The drugs N-Acetylcy steine and Metamizole may falsely depress this assay. Normal range: <150 mg/dLBorderline High: 150-199 mg/dLHigh: 200-499 mg/dLVery High: >500 mg/dL White blood cell (WBC) count Ordered By: Yecenia Agrawal on 08-28-2024 WBC (Bld) [#/Vol] 5.9 10*3/uL 4.4-11.0 [facility] PSA SerPl-mCncon 08-21-2024 Prostate specific Ag [Mass/Vol] 0.33 ng/mL Normal <2.60 [facility] Comment on above: Order Comment: Speci men Type: BLOOD SPECIMEN Ordering Facility: [facility] Address: [address] [place] [address] Result Comment: Tota l PSA test methodology used is the Electrochemiluminescence Immunoassay by [employer]. Total PSA values by differing methodologies cannot be interchanged. Performed By: #### 2 857-1 #### [facility] CLIA [id number] [address] [place] [address] [place] Testost SerPl-mCncon 025 Testosterone [Mass/Vol] 280 ng/dL Normal 193-824 [facility] Comment on above: Order Comment: Speci men Type: BLOOD SPECIMEN Ordering Facility: [facility] Address: [address] [place] [address] Result Comment: A te stosterone level in the 193-320 ng/dL range with associated clinical symptoms is considered low and may indicate hypogonadism (from NEJM 2010 363:123-135). Results >320 ng/dL are considered normal. Performed By: #### 2 986-8 #### [facility] CLIA [id number] [address] [place] [address] [place] NM PET/CT PROSTATE WBon 02-0 NM PET/CT PROSTATE WB * * *Final Report* * * DATE OF EXAM: Jun 18 2024 3:34PM [employer] 0093 - NM PET/CT PROSTATE WB / PROCEDURE REASON: Prostate cancer (HCC) * * * * Physician Interpretation * * * * EXAMINATION: PROSTATE-SPECIFIC MEMBRANE ANTIGEN PET-CT CLINICAL HISTORY: History of prostate cancer with rising PSA being evaluated for recurrence. EMR: resected [id number] prostate cancer status post 6600 cGy in [...] refer to the synoptic report for details. 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: [facility] Transcribe Date/Time: Jun 20 2024 8:40A Dictated by : CHINA WASHINGTON MD This examination was interpreted and the report reviewed and electronically signed by: CHINA WASHINGTON MD on Jun 20 2024 9:06AM EST [id number] Normal [facility] Kiet 06-07-2024 [facility] JERMAINE BEGUM ([id number]) 1945 M NFR Date Time Provider Department 06/07/24 TIFFANIE CHEUNG During your visit today, we recorded the following information about you: Tiffanie Cheung RN 06/07/2024 11:25 AM Signed This form is used for MAIN CAMPUS APPOINTMENTS ONLY. Is this request for a Main [place] PET scan appointment? Yes: Pharmacy Cashier: Tiffanie Cheung RN Requesting Person (Last Name, First Name): Tiffanie Cheung [facility] Area Code + Phone/Pager: [facility] #[phone] Who do we call to schedule this [...] 06/07/2024 1:26 PM Addendum PSMA Comments for Risk Consulting Treasury Director: any site Will the patient need anesthesia: no Primary Insurance: [employer] Diagnosis: Prostate cancer (HCC) [C61] Initial/Subsequent: Subsequent Pathology: 06-23-21 Adenocarcinoma of the prostate, Ratna score 3+4=7 (grade group 2), 95% Labs: [...] F-18 flotufolastat,18F flotufolastat [place] GA68 [facility] PET 00181/YUEAMETZ (Gallium GA-68 Gozetotide) (6 mCi) A9800 - [place] (Flotufolastat F18) (8mCi), A9608 - Region Auth#: [id number] Date Range: 06-07-24 to 09-04-24 for 1 dos NPI: MARIE BEAVERS [id number] Member ID: Judy [id number] Site/Contact: Berto Case/Ref#: Notes: system auto approved PET/Ct Prostate Route to or Requested Scheduling Pool: P PET PAINT SPRAYER SANDBLASTER Wilfredo AGUIAR CLERICAL POOL([place]), Wilfredo AHNNA LAMP DEVELOPER Sara Lux 06/08/2024 8:23 AM Signed 06/08 lvAva Painter 06/08/2024 1:29 PM Signed Scheduled 06/18 @ 1400 Allergies As of Date: 06/07/2024 (No Known Allergies) Date Reviewed: 05/24/2023 Reviewed by: Preicous Deleon MA - Fully Assessed Reason for Visit: Nm Pet Request [[id number]] Prescriptions as of 06/08/2024 - spironolactone (ALDACTONE) [...] NOS [M10.9] 02/28/2007 Coronary artery disease involving [place] franz* Medication Side Effects [T88.7XXA] 01/09/2010 BPH w urinary obs/LUTS [N40.1, N13.8] 06/08/2010 Elevated PSA [R97.20] 07/06/2010 Gynecomastia [N62] 12/23/2011 Allergic rhinitis [J30.9] 10/02/2012 Controlled type 2 diabetes mellitus without com*11/10/2017 Elevated prostate specific antigen (PSA) [R97.2*04/24/2021 Prostate cancer (HCC) [C61] 07/10/2021 Abnormal stress test [R94.39] 08/27/2021 Coronary artery disease involving [place] franz*08/27/2021 09/30/2021 Presence of drug coated stent [...] [N17.9] 0 (more content not included)... Normal [facility] PSA SerPl-mCncon 05-23-2024 Prostate specific Ag [Mass/Vol] 0.22 ng/mL Normal <2.60 [facility] Comment on above: Order Comment: Speci men Type: BLOOD SPECIMEN Ordering Facility: [facility] Address: [address] [place] [address] Result Comment: Suha grullon PSA test methodology used is the Electrochemiluminescence Immunoassay by [employer]. Total PSA values by differing methodologies cannot be interchanged. Performed By: #### 2 857-1 #### [facility] CLIA [id number] [address] [place] [address] OF [facility] Testost SerPl-mCncon 025 Testosterone [Mass/Vol] 221 ng/dL Normal 193-824 [facility] Comment on above: Order Comment: Speci men Type: BLOOD SPECIMEN Ordering Facility: [facility] Address: [address] [place] [address] Result Comment: A te stosterone level in the 193-320 ng/dL range with associated clinical symptoms is considered low and may indicate hypogonadism (from [facility] 2010 363:123-135). Results >320 ng/dL are considered normal. Performed By: #### 2 986-8 #### [facility] CLIA [id number] [address] [place] [address] Cardiac Cath Diagnosticon Cardiac Cath Diagnostic [facility] Imaging Services [address] [place] [address] Cardiac Cath Diagnostic MR#: [id number] Acct: [id number] Name: JERMAINE BEGUM Rep #: [id number] : 1945 78 From: Junior Johnson MD PCP: Dr. Yecenia Agrawal MD Status:[facility] Patient Name: JERMAINE BEGUM Study Date: 05/03/2024 Performing: Junior Johnson MD Ht: 73 inches 185.42 cm : 1945 Wt: 237 lbs 107.5 kg Age: 78 Gender: male BSA: 2.31 PROCEDURE(S) PERFORMED DC03-([id number])LHC/COR/LV/CABG CLINICAL PROFILE AND INDICATIONS Indications: Other Heart [...] Dictated: 05/03/24 1223 Date Transcribed: 05/03/24 1319 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: [place] Signed Normal [facility] Absolute neutrophil countOrd ered By: Talia Quinteros on 04-27-2024 Neutrophils (Bld) [#/Vol] 5.3 10*3/uL 2.0-7.[address] [facility] Basic Metabolic Profile (BMP )on 04-27-2024 BUN/CRE 18.5 RATIO Normal 10-[address] [facility] Comment on above: Performed By: #### L 500.2500, L100.0100 #### [facility] [address] [place], [address] CA,Total 9.2 mg/dL Normal 8.5-10.[address] [facility] Comment on above: Performed By: #### L 500.2500, L100.0100 #### [facility] [address] [place], [address] Chloride [Moles/Vol] 108 mmol/L High 98-107 [facility] Comment on above: Performed By: #### L 500.2500, L100.0100 #### [facility] [address] [place], [address] CO2 [Moles/Vol] 26.0 mmol/L Normal 21.0-32.[address] [facility] Comment on above: Performed By: #### L 500.2500, L100.0100 #### [facility] [address] [place], [address] Creatinine [Mass/Vol] 1.08 mg/dL Normal 0.70-1.30 [facility] Comment on above: Result Comment: The validity of the calculated GFR GFRAA in patients over 70 years has not been determined. Clinical correlation is essential. Performed By: #### L 500.2500, L100.0100 #### [facility] [address] [place], [address] EST GFR - AA 85 mL/min Normal >[address] [facility] Comment on above: Result Comment: Afri can Cymro GFR Calc Performed By: #### L 500.2500, L100.0100 #### [facility] [address] [place], [address] GAP 5 Normal 5-[address] [facility] Comment on above: Performed By: #### L 500.2500, L100.0100 #### [facility] [address] [place], [address] GFR/1.73 sq M.predicted among non-blacks MDRD (S/P/Bld) [Vol rate/Area] 70 mL/min/{1.73_m2} Normal >[address] [facility] Comment on above: Result Comment: Non- GFR Calc Performed By: #### L 500.2500, L100.0100 #### [facility] [address] [place], [address] Glucose [Mass/Vol] 107 mg/dL High 74-106 [facility] Comment on above: Result Comment: Fast ing Glucose result from 100 to 125 mg/dL suggests IMPAIRED HOMEOSTASIS per A.D.A. criteria. Performed By: #### L 500.2500, L100.0100 #### [facility] [address] [place], [address] Potassium [Moles/Vol] 4.3 mmol/L Normal 3.5-5.1 [facility] Comment on above: Performed By: #### L 500.2500, L100.0100 #### [facility] [address] [place], [address] Sodium [Moles/Vol] 140 mmol/L Normal 136-145 [facility] Comment on above: Performed By: #### L 500.2500, L100.0100 #### [facility] [address] [place], [address] Urea nitrogen [Mass/Vol] 20 mg/dL High 7-[address] [facility] Comment on above: Performed By: #### L 500.2500, L100.0100 #### [facility] [address] [place], [address] Basophil percentageOrdered B y: Talia Quinteros on 04-27-2024 Basophils/100 WBC (Bld) 0.3 % 0- [facility] Blood urea nitrogen (BUN)/cr eatinine ratioOrdered By: Talia Quinteros on 04-27-2024 Urea nitrogen/Creatinine [Mass ratio] 18.5 mg/mg 10- [facility] CBC W/Diff, Automatedon 04-15 Absolute Lymph 0.77 X10 3/uL Low 0.83-4.[address] [facility] Comment on above: Performed By: #### L 500.2500, L100.0100 #### [facility] [address] [place], [address] Absolute Neut 5.3 X10 3/uL Normal 2.0-7.[address] [facility] Comment on above: Performed By: #### L 500.2500, L100.0100 #### [facility] [address] [place], [address] Basophils/100 WBC (Bld) 0.3 % Normal 0-[address] [facility] Comment on above: Performed By: #### L 500.2500, L100.0100 #### [facility] [address] [place], [address] Eosinophils/100 WBC (Bld) 2.8 % Normal 0-[address] [facility] Comment on above: Performed By: #### L 500.2500, L100.0100 #### [facility] [address] [place], [address] Erythrocyte distribution width (RBC) [Ratio] 14.3 % Normal 11.6-14.[address] [facility] Comment on above: Performed By: #### L 500.2500, L100.0100 #### [facility] [address] [place], [address] Hematocrit (Bld) [Volume fraction] 37.3 % Low 40-[address] [facility] Comment on above: Performed By: #### L 500.2500, L100.0100 #### [facility] [address] [place], [address] Hemoglobin (Bld) [Mass/Vol] 12.2 g/dL Low 13.0-16.[address] [facility] Comment on above: Performed By: #### L 500.2500, L100.0100 #### [facility] [address] [place], [address] IG% 0.400 Normal 0.0-0.[address] [facility] Comment on above: Result Comment: IG% - Immature Granulocytes (promyelocytes, myelocytes and metamyelocytes) > 1% indicates that a LEFT SHIFT is Present. Performed By: #### L 500.2500, L100.0100 #### [facility] [address] [place], [address] Lymphocytes/100 WBC (Bld) 11.0 % Low 19-[address] [facility] Comment on above: Performed By: #### L 500.2500, L100.0100 #### [facility] [address] [place], [address] MCH (RBC) [Entitic mass] 29.2 pg Normal 27.0-32.[address] [facility] Comment on above: Performed By: #### L 500.2500, L100.0100 #### [facility] [address] [place], [address] MCHC (RBC) [Mass/Vol] 32.7 g/dL Normal 32-36 [facility] Comment on above: Performed By: #### L 500.2500, L100.0100 #### [facility] [address] [place], [address] MCV (RBC) [Entitic vol] 89.2 fL Normal 80-[address] [facility] Comment on above: Performed By: #### L 500.2500, L100.0100 #### [facility] [address] [place], [address] Monocytes/100 WBC (Bld) 10.5 % High 0-[address] [facility] Comment on above: Performed By: #### L 500.2500, L100.0100 #### [facility] [address] [place], [address] Neutrophils/100 WBC (Bld) 75.0 % High 47-[address] [facility] Comment on above: Performed By: #### L 500.2500, L100.0100 #### [facility] [address] [place], [address] Nucleated RBC (Bld) [#/Vol] 0 10*3/uL Normal 0-[address] [facility] Comment on above: Performed By: #### L 500.2500, L100.0100 #### [facility] [address] [place], [address] Platelet mean volume (Bld) [Entitic vol] 10.6 fL Normal 6.2-12.[address] [facility] Comment on above: Performed By: #### L 500.2500, L100.0100 #### [facility] [address] [place], [address] Platelets (Bld) [#/Vol] 260 10*3/uL Normal 150-[address] [facility] Comment on above: Performed By: #### L 500.2500, L100.0100 #### [facility] [address] [place], [address] RBC (Bld) [#/Vol] 4.18 10*6/uL Low 4.6-6.2 [facility] Comment on above: Performed By: #### L 500.2500, L100.0100 #### [facility] [address] [place], [address] RDW SD 46.0 fl High 35.1-43.[address] [facility] Comment on above: Performed By: #### L 500.2500, L100.0100 #### [facility] [address] [place], [address] WBC (Bld) [#/Vol] 7.0 10*3/uL Normal 4.4-11.0 [facility] Comment on above: Performed By: #### L 500.2500, L100.0100 #### [facility] [address] [place], [address] Carbon dioxide measurementOr dered By: Talia Quinteros on 04-27-2024 CO2 [Moles/Vol] 26.0 mmol/L 21.0-32.[address] [facility] Chest PA and Lateralon 04-27 Chest PA and Lateral [facility] Imaging Services [address] [place], [place] [address] Chest PA and Lateral MR#: [id number] Acct: [id number] Name: JERMAINE BEGUM Rep #: [id number] : 1945 M 78 From: Elmo White MD PCP: Dr. Yecenia Agrawal MD Status: PRE [facility] Study: Chest PA and Lateral Date of Exam: 04/27/24 Exam# [id number] Ordering Dr: Talia Quinteros PA [id number] EXAM: XR CHEST, 2 VIEWS CLINICAL INDICATION: [...] CC: Dr. 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 Chloride measurementOrdered By: Talia Quinteros on 04-27-2024 Chloride [Moles/Vol] 108 mmol/L High 98-107 [facility] Eosinophil percentageOrdered By: Talia Quinteros on 04-27-2024 Eosinophils/100 WBC (Bld) 2.8 % 0-[address] [facility] Erythrocyte distribution wid th (RBC) [Ratio]Ordered By: Talia Quinteros on 04-27-2024 Erythrocyte distribution width (RBC) [Entitic vol] 46.0 fL High 35.1-43.[address] [facility] Erythrocyte distribution wid th ratioOrdered By: Talia Quinteros on 04-27-2024 Erythrocyte distribution width (RBC) [Ratio] 14.3 % 11.6-14.[address] [facility] Estimated glomerular filtrat ion rate (GFR) AmericanOrdered By: Talia Quinteros on 04-27-2024 Estimated GFR (MDRD) Amer 85 mL/min >[address] [facility] Comment on above: GFR Calc Glomerular filtration rate ( GFR) estimationOrdered By: Talia Quinteros on 04-27-2024 Estimated GFR (MDRD) Non-Af Amer 70 mL/min >[address] [facility] Comment on above: Non- GFR Calc Glucose measurementOrdered B y: Talia Quinteors on 04-27-2024 Glucose [Mass/Vol] 107 mg/dL High 74-106 [facility] Comment on above: Fasting Glucose resu lt from 100 to 125 mg/dL suggests IMPAIRED HOMEOSTASIS per A.D.A. criteria. Hematocrit Auto (Bld) [Volum e fraction]Ordered By: Talia Quinteros on 04-27-2024 Hematocrit (Bld) [Volume fraction] 37.3 % Low 40-[address] [facility] Hemoglobin measurementOrdere d By: Talia Quinteros on 04-27-2024 Hemoglobin (Bld) [Mass/Vol] 12.2 g/dL Low 13.0-16.[address] [facility] Immature granulocytes/100 WB C Auto (Bld)Ordered By: Talia Quinteros on 04-27-2024 Immature granulocytes/100 WBC (Bld) 0.400 % 0.0-0.[address] [facility] Comment on above: IG% - Immature Granu locytes (promyelocytes, myelocytes and metamyelocytes) > 1% indicates that a LEFT SHIFT is Present. Lymphocytes Auto (Unsp spec) [#/Vol]Ordered By: Talia Quinteros on 04-27-2024 Lymphocytes (Bld) [#/Vol] 0.77 10*3/uL Low 0.83-4.[address] [facility] Lymphocytes/100 WBC Auto (Un sp spec)Ordered By: Talia Quinteros on 04-27-2024 Lymphocytes/100 WBC (Bld) 11.0 % Low 19-[address] [facility] MCV (mean corpuscular volume ) determinationOrdered By: Talia Quinteros on 04-27-2024 MCV (RBC) [Entitic vol] 89.2 fL 80-[address] [facility] Mean corpuscular hemoglobin (MCH) determinationOrdered By: Talia Quinteros on 04-27-2024 MCH (RBC) [Entitic mass] 29.2 pg 27.0-32.[address] [facility] Mean corpuscular hemoglobin concentration (MCHC) determinationOrdered By: Talia Quinteros on 04-27-2024 MCHC (RBC) [Mass/Vol] 32.7 g/dL 32-36 [facility] Mean platelet volume determi nationOrdered By: Talia Quinteros on 04-27-2024 Platelet mean volume (Bld) [Entitic vol] 10.6 fL 6.2-12.[address] [facility] Monocyte percentageOrdered B y: Talia Quinteros on 04-27-2024 Monocytes/100 WBC (Bld) 10.5 % High 0-[address] [facility] Neutrophil percentageOrdered By: Talia Quinteros on 04-27-2024 Neutrophils/100 WBC (Bld) 75.0 % High 47-[address] [facility] Nucleated red blood cell per centageOrdered By: Talia Quinteros on 04-27-2024 Nucleated RBC/100 WBC (Bld) [Ratio] 0 % 0-[address] [facility] Platelet countOrdered By: Ruth Quinteros on 04-27-2024 Platelets (Bld) [#/Vol] 260 10*3/uL 150-[address] [facility] Potassium measurementOrdered By: Talia Quinteros on 04-27-2024 Potassium [Moles/Vol] 4.3 mmol/L 3.5-5.1 [facility] RBC Auto (Bld) [#/Vol]Ordere d By: Talia Quinteros on 04-27-2024 RBC (Bld) [#/Vol] 4.18 10*6/uL Low 4.6-6.2 [facility] Serum anion gap measurementO rdered By: Talia Quinteros on 04-27-2024 Anion gap [Moles/Vol] 5 mmol/L 5-15 [facility] Serum or plasma calcium kyleigh urement (mass/volume)Ordered By: Talia Quinteros on 04-27-2024 Calcium [Mass/Vol] 9.2 mg/dL 8.5-10.1 [facility] Serum or plasma creatinine m easurement (mass/volume)Ordered By: Talia Quinteros on 04-27-2024 Creatinine [Mass/Vol] 1.08 mg/dL 0.70-1.30 [facility] Comment on above: The validity of the calculated GFR & GFRAA in patients over 70 years has not been determined. Clinical correlation is essential. Serum or plasma urea nitroge n measurement (mass/volume)Ordered By: Talia Quinteros on 04-27-2024 Urea nitrogen [Mass/Vol] 20 mg/dL High 7-[address] [facility] Sodium levelOrdered By: Grant Quinteros on 04-27-2024 Sodium [Moles/Vol] 140 mmol/L 136-145 [facility] White blood cell (WBC) count Ordered By: Talia Quinteros on 04-27-2024 WBC (Bld) [#/Vol] 7.0 10*3/uL 4.4-11.0 [facility] Echo Complete W/ Contraston 04-23-2024 Echo Complete W/ Contrast [facility] [address] [place] [address] Echo Complete W/ Contrast 04/23/24 0938 MR#: [id number] Acct: [id number] Name: JERMAINE BEGUM Rep #: [id number] : 1945 78 From: Junior Johnson MD Attending Dr: Dr. Junior Johnson MD Status: KEE GREGORY Ordering Dr: Junior Johnson MD Date: 04/23/24 Location: [facility] Sex: M C Admitted: Reason For Study: [...] MD; Dr. 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 Stress Reporton 04-23-2024 Stress Report [facility] Services [address] [place] [address] MR#: [id number] Acct: [id number] Name: JERMAINE BEGUM Rep #: [id number] : 1945 78 From: Junior Johnson MD [...] ischemia Preserved ejection fraction. Reduced functional capacity 04/23/247 Date Junior Johnson MD CC: Dr. Yecenia Agrawal MD; Dr. 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 Cardiology Visit Reporton Cardiology Visit Report [facility] [address] [place] [address] OFFICE VISIT Date of Service: 03/27/24 MR#: [id number] Acct: [id number] Name: JERMAINE BEGUM Rep #: [id number] : 1945 Provider: Dr. Junior Johnson MD Age/Sex: 78/M Location: [facility] Status: Signed HPI HPI History of Present [...] the same year. While he was in [place] in June 2021, he experienced some sharp [...] from atrial fibrillation. He was seen by [facility] Electrophysiology, Dr. 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 Normal [facility] Ironon 02-16-2024 Iron [Mass/Vol] 94 ug/dL Normal 65-[address] [facility] Comment on above: Order Comment: Order Date: 02/14/24 Order Info: 0783-1 - PSAD Order Info: 2498-4 - FE Performed By: #### L 503.6150, L503.0105, L501.9940 #### [facility] [address] [place], [address] PSA,Total- Diagnosticon 10-0 PSA, DIAGNOSTIC 0.11 ng/mL Normal 0.0-4.[address] [facility] Comment on above: Order Comment: Order Date: 02/14/24 Order Info: [id number] - PSAD Order Info: 2498-4 - FE Result Comment: This test was performed using the TPSA assay method for the [employer] chemistry system. Values obtained with different assay methods cannot be used interchangably. When changing PSA assays in the course of monitoring a patient, additional sequential testing should be carried out to confirm baseline values. Performed By: #### L 503.6150, L503.0105, L501.9940 #### [facility] [address] [place], [address] Vitamin B12on 02-16-2024 Cobalamin (Vitamin B12) [Mass/Vol] 576 pg/mL Normal 211-[address] [facility] Comment on above: Order Comment: Order Date: 02/14/24 Order Info: [id number] - B12 Performed By: #### L 503.6150, L503.0105, L501.9940 #### [facility] [address] [place], [address] Basophil percentageOrdered B y: Lele Hanley on 09-02-2023 Bilirubin [Mass/Vol] 0.90 mg/dL 0.20-1.00 [facility] Comment on above: For patients on eltr ombopag therapy, use of Dimension [place] TBIL is not recommended. Cholesterol [Mass/Vol] 233 mg/dL <[address] [facility] Comment on above: <200 mg/dL Desirable 200-240 mg/dL Borderline >240 mg/dL High Risk Protein [Mass/Vol] 6.9 g/dL 6.4-8.2 [facility] Triglyceride [Mass/Vol] 119 mg/dL <[address] [facility] Comment on above: The drugs N-Acetylcy steine and Metamizole may falsely depress this assay.Serum Triglycerides Reference Interval Normal <150 mg/dL Borderline high 150 - 199 mg/dL High 200 - 499 mg/dL Very High > or = 500 mg/dL Direct bilirubinOrdered By: Lele Hanley on 09-02-2023 Bilirubin.direct [Mass/Vol] 0.17 mg/dL 0.00-0.[address] [facility] Laboratory - Chemistry and C hemistry - challengeOrdered By: Lele Hanley on 09-02-2023 ALP [Catalytic activity/Vol] 93 U/L 45-[address] [facility] ALT [Catalytic activity/Vol] 33 U/L 16-[address] [facility] Cholesterol in HDL [Mass/Vol] 47 mg/dL >[address] [facility] Comment on above: The drugs N-Acetylcy steine and Metamizole may falsely depress this assay. Reference Range HDL <40 mg/dL Low HDL Cholesterol HDL >or= 60 mg/dL High HDL Cholesterol Cholesterol in LDL [Mass/Vol] 162 mg/dL 0-[address] [facility] Globulin (S) [Mass/Vol] 3.3 g/dL 2.2-4.[address] [facility] No Panel InformationOrdered By: Lele Hanley on 09-02-2023 VLDL Cholesterol 24 mg/dL 5-[address] [facility] Thin prep Papanicolaou smear with manual screeningOrdered By: Lele Hanley on 09-02-2023 Thin prep Papanicolaou smear with manual screening 3.6 g/dL 3.2-5.[address] [facility] Thin prep Papanicolaou smear with manual screening 22 U/L 15-[address] [facility] Basophil percentageOrdered B y: Lele Hanley on 04-01-2023 Chloride [Moles/Vol] 108 mmol/L 98-107 [facility] Glucose [Mass/Vol] 174 mg/dL 74-106 [facility] Comment on above: Fasting Glucose resu lt greater than or equal to 126 mg/dL suggests DIABETES MELLITUS per A.D.A. criteria. Potassium [Moles/Vol] 3.9 mmol/L 3.5-5.1 [facility] Sodium [Moles/Vol] 139 mmol/L 136-145 [facility] Laboratory - Chemistry and C hemistry - challengeOrdered By: Lele Hanley on 04-01-2023 CO2 [Moles/Vol] 25.0 mmol/L 21.0-32.[address] [facility] Urea nitrogen/Creatinine [Mass ratio] 23.5 mg/mg 10-[address] [facility] No Panel InformationOrdered By: Lele Hanley on 04-01-2023 Estimated GFR (MDRD) Amer 91 mL/min >[address] [facility] Comment on above: GFR Calc Estimated GFR (MDRD) Non-Af Amer 75 mL/min >[address] [facility] Comment on above: Non- GFR Calc Serum or plasma calcium kyleigh urement (mass/volume)Ordered By: Lele Hanley on 04-01-2023 Calcium [Mass/Vol] 8.7 mg/dL 8.5-10.1 [facility] Serum or plasma creatinine m easurement (mass/volume)Ordered By: Lele Hanley on 04-01-2023 Creatinine [Mass/Vol] 1.02 mg/dL 0.70-1.30 [facility] Comment on above: The validity of the calculated GFR & GFRAA in patients over 70 years has not been determined. Clinical correlation is essential. Serum or plasma urea nitroge n measurement (mass/volume)Ordered By: Lele Hanley on 04-01-2023 Urea nitrogen [Mass/Vol] 24 mg/dL 11-[address] [facility] Thin prep Papanicolaou smear with manual screeningOrdered By: Lele Hanley on 04-01-2023 Thin prep Papanicolaou smear with manual screening 6 09-[address] [facility] Basophil percentageOrdered B y: Lele Hanley on 01-28-2023 Bilirubin [Mass/Vol] 0.60 mg/dL 0.20-1.00 [facility] Comment on above: For patients on eltr ombopag therapy, use of Dimension [place] TBIL is not recommended. Cholesterol [Mass/Vol] 120 mg/dL <[address] [facility] Comment on above: <200 mg/dL Desirable 200-240 mg/dL Borderline >240 mg/dL High Risk Protein [Mass/Vol] 7.2 g/dL 6.4-8.2 [facility] Triglyceride [Mass/Vol] 123 mg/dL <[address] [facility] Comment on above: The drugs N-Acetylcy steine and Metamizole may falsely depress this assay.Serum Triglycerides Reference Interval Normal <150 mg/dL Borderline high 150 - 199 mg/dL High 200 - 499 mg/dL Very High > or = 500 mg/dL Direct bilirubinOrdered By: Lele Hanley on 01-28-2023 Bilirubin.direct [Mass/Vol] 0.16 mg/dL 0.00-0.[address] [facility] - Chemistry and C hemistry - challengeOrdered By: Lele Hanley on 01-28-2023 ALP [Catalytic activity/Vol] 128 U/L 45-[address] [facility] [address] [facility] ALT [Catalytic activity/Vol] 33 U/L 16-[address] [facility] Globulin (S) [Mass/Vol] 3.5 g/dL 2.2-4.[address] [facility] Serum or plasma albumin kyleigh urement (mass/volume)Ordered By: Lele Hanley on 01-28-2023 Albumin [Mass/Vol] 3.7 g/dL 3.2-5.0 [facility] Serum or plasma cholesterol in HDL measurement (mass/volume)Ordered By: Lele Hanley on 01-28-2023 Cholesterol in HDL [Mass/Vol] 42 mg/dL >[address] [facility] Comment on above: The drugs N-Acetylcy steine and Metamizole may falsely depress this assay. Reference Range HDL <40 mg/dL Low HDL Cholesterol HDL >or= 60 mg/dL High HDL Cholesterol Serum or plasma cholesterol in VLDL measurement (mass/volume)Ordered By: Lele Hanley on 01-28-2023 Cholesterol in VLDL [Mass/Vol] 25 mg/dL 5-[address] [facility] Serum or plasma low density lipoprotein (LDL) cholesterol measurement (mass/volume)Ordered By: Lele Hanley on 01-28-2023 Cholesterol in LDL [Mass/Vol] 53 mg/dL 0-[address] [facility] Thin prep Papanicolaou smear with manual screeningOrdered By: Lele Hanley on 01-28-2023 Thin prep Papanicolaou smear with manual screening 29 U/L 15-[address] [facility] Comment on above: Slight Hemolysis, Re sult may be falsely increased. HbA1c (Bld)on 05-14-2022 Average glucose Estimated from glycated hemoglobin (Bld) [Mass/Vol] 140 mg/dL [facility] HbA1c (Bld) [Mass fraction] 6.5 % High 4.3 - 5.6 % [facility] UA DIP, URINE (POC)on 2021 BILIRUBIN UA (POCT) Negative Negative [facility] CLARITY UA (POCT) Clear [facility] COLOR UA (POCT) Yellow [facility] GLUCOSE UA (POCT) Negative Negative mg/dL [facility] HEMOGLOBIN/BLOOD UA (POCT) Negative Negative [facility] KETONE UA (POCT) Negative Negative mg/dL [facility] LEUKOCYTES UA (POCT) Negative Negative [facility] NITRITE UA (POCT) Negative Negative [facility] PH UA (POCT) 6.0 4.5 - 8.0 [facility] Protein Ql (U) 30 mg/dL Abnormal Negative mg/dL [facility] SPECIFIC GRAVITY UA (POCT) 1.020 1.005 - 1.030 [facility] UROBILINOGEN UA (POCT) 0.2 E.U./dL Normal E.U./dL [facility] CBC W Auto Differential pane l (Bld)on 11-17-2021 Abs Immature Gran <0.03 <0.10 k/uL [facility] Basophils (Bld) [#/Vol] 0.04 10*3/uL <0.11 k/uL [facility] Basophils/100 WBC (Bld) 0.5 % [facility] Differential cell count method Nom (Bld) Auto [facility] Eosinophils (Bld) [#/Vol] 0.36 10*3/uL <0.46 k/uL [facility] Eosinophils/100 WBC (Bld) 4.7 % [facility] Erythrocyte distribution width (RBC) [Ratio] 13.9 % 11.5 - 15.0 % [facility] Hematocrit (Bld) [Volume fraction] 34.5 % Low 39.0 - 51.0 % [facility] Hemoglobin (Bld) [Mass/Vol] 11.0 g/dL Low 13.0 - 17.0 g/dL [facility] Immature Gran % 0.3 % [facility] Lymphocytes (Bld) [#/Vol] 1.14 10*3/uL 1.00 - 4.00 k/uL [facility] Lymphocytes/100 WBC (Bld) 14.9 % [facility] MCH (RBC) [Entitic mass] 27.2 pg 26.0 - 34.0 pg [facility] MCHC (RBC) [Mass/Vol] 31.9 g/dL 30.5 - 36.0 g/dL [facility] MCV (RBC) [Entitic vol] 85.2 fL 80.0 - 100.0 fL [facility] Monocytes (Bld) [#/Vol] 0.77 10*3/uL <0.87 k/uL [facility] Monocytes/100 WBC (Bld) 10.1 % [facility] Neutrophils (Bld) [#/Vol] 5.32 10*3/uL 1.45 - 7.50 k/uL [facility] Neutrophils/100 WBC (Bld) 69.5 % [facility] Nucleated RBC (Bld) [#/Vol] 10*3/uL <0.01 k/uL [facility] Nucleated RBC/100 WBC (Bld) [Ratio] 0.0 /100 WBC [facility] Platelet mean volume (Bld) [Entitic vol] 9.4 fL 9.0 - 12.7 fL [facility] Platelets (Bld) [#/Vol] 432 10*3/uL High 150 - 400 k/uL [facility] RBC (Bld) [#/Vol] 4.05 10*6/uL Low 4.20 - 6.00 m/uL [facility] WBC (Bld) [#/Vol] 7.65 10*3/uL 3.70 - 11.00 k/uL [facility] URINALYSIS, REFLEX MICROSCOP ICon 11-17-2021 Bilirubin Ql (U) Negative Negative [facility] Clarity (Unsp spec) Clear Clear [facility] Color (U) Yellow Yellow [facility] Glucose Test strip (U) [Mass/Vol] Negative Negative [facility] Hemoglobin Ql (U) Negative Negative [facility] Ketones Ql (U) Negative Negative [facility] Leukocyte esterase Test strip Ql (U) Negative Negative [facility] Nitrite Ql (U) Negative Negative [facility] pH (U) 5.5 [pH] 5.0 - 8.0 [facility] Protein (U) [Mass/Vol] Negative Negative [facility] Specific gravity (U) [Rel density] 1.017 1.005 - 1.030 [facility] Urobilinogen Ql (U) Negative Negative [facility] XR CHEST 2V FRONTAL/LATon [facility] MRI THORACIC SPINE WO/W IVCO Non 09-23-2021 [facility] Absolute lymphocyte counton 08-24-2021 Lymphocytes Auto (Unsp spec) [#/Vol] 1.57 10*3/uL 0.83-4.[address] [facility] Work Phone: Basophil percentageon 2021 Basophils/100 WBC (Bld) 0.3 % 0-[address] [facility] Work Phone: Chloride [Moles/Vol] 108 mmol/L 98-107 [facility] Work Phone: Eosinophils/100 WBC (Bld) 2.2 % 0-[address] [facility] Work Phone: Glucose [Mass/Vol] 127 mg/dL 74-106 [facility] Work Phone: Comment on above: Fasting Glucose resu lt greater than or equal to 126 mg/dL suggests DIABETES MELLITUS per A.D.A. criteria. Neutrophils (Bld) [#/Vol] 5.0 10*3/uL 2.0-7.[address] [facility] Work Phone: Neutrophils/100 WBC (Bld) 66.5 % 47-[address] [facility] Work Phone: Potassium [Moles/Vol] 4.3 mmol/L 3.5-5.1 [facility] Work Phone: [phone] Sodium [Moles/Vol] 137 mmol/L 136-145 [facility] Work Phone: WBC (Bld) [#/Vol] 7.6 10*3/uL 4.4-11.0 [facility] Work Phone: Blood erythrocytes count (nu mber/volume)on 08-24-2021 RBC (Bld) [#/Vol] 4.82 10*6/uL 4.6-6.2 [facility] Work Phone: Blood hemoglobin measurement (mass/volume)on 08-24-2021 Hemoglobin (Bld) [Mass/Vol] 14.0 g/dL 13.0-16.[address] [facility] Work Phone: Blood lymphocytes/100 leukoc yteson 08-24-2021 Lymphocytes/100 WBC (Bld) 20.8 % 19-[address] [facility] Work Phone: Blood monocytes/100 leukocyt eson 08-24-2021 Monocytes/100 WBC (Bld) 9.9 % 0-[address] [facility] Work Phone: Blood platelet mean volumeon 08-24-2021 Platelet mean volume (Bld) [Entitic vol] 10.7 fL 6.2-12.[address] [facility] Work Phone: [phone] Determination of erythrocyte mean corpuscular volume (MCV)on 08-24-2021 MCV (RBC) [Entitic vol] 89.6 fL 80-[address] [facility] Work Phone: Hematocrit Auto (Bld) [Volum e fraction]on 08-24-2021 Hematocrit (Bld) [Volume fraction] 43.2 % 40-[address] [facility] Work Phone: Laboratory - Chemistry and C hemistry - challengeon 08-24-2021 CO2 [Moles/Vol] 28.0 mmol/L 21.0-32.[address] [facility] Work Phone: [phone] Urea nitrogen/Creatinine [Mass ratio] 15.7 mg/mg 10-[address] [facility] Work Phone: [phone] Laboratory - Hematology and Cell countson 08-24-2021 Erythrocyte distribution width (RBC) [Entitic vol] 44.2 fL 35.1-43.[address] [facility] Work Phone: Erythrocyte distribution width (RBC) [Ratio] 13.4 % 11.6-14.[address] [facility] Work Phone: [phone] Immature granulocytes/100 WBC (Bld) 0.300 % 0.0-0.[address] [facility] Work Phone: [phone] Comment on above: IG% - Immature Granu locytes (promyelocytes, myelocytes and metamyelocytes) > 1% indicates that a LEFT SHIFT is Present. MCH (RBC) [Entitic mass] 29.0 pg 27.0-32.[address] [facility] Work Phone: Nucleated RBC/100 WBC (Bld) [Ratio] 0 % 0-[address] [facility] Work Phone: MCHC Auto (RBC) [Mass/Vol]on 08-24-2021 MCHC (RBC) [Mass/Vol] 32.4 g/dL 32-36 [facility] Work Phone: No Panel Informationon 08-24 Estimated GFR (MDRD) Amer 91 mL/min >[address] [facility] Work Phone: Comment on above: GFR Calc Estimated GFR (MDRD) Non-Af Amer 75 mL/min >[address] [facility] Work Phone: Comment on above: Non- GFR Calc Platelets bldon 08-24-2021 Platelets (Bld) [#/Vol] 259 10*3/uL 150-[address] [facility] Work Phone: Serum or plasma calcium kyleigh urement (mass/volume)on 08-24-2021 Calcium [Mass/Vol] 8.9 mg/dL 8.5-10.1 [facility] Work Phone: Serum or plasma creatinine m easurement (mass/volume)on 08-24-2021 Creatinine [Mass/Vol] 1.02 mg/dL 0.70-1.30 [facility] Work Phone: Comment on above: The validity of the calculated GFR & GFRAA in patients over 70 years has not been determined. Clinical correlation is essential. Serum or plasma urea nitroge n measurement (mass/volume)on 08-24-2021 Urea nitrogen [Mass/Vol] 16 mg/dL 7-[address] [facility] Work Phone: Thin prep Papanicolaou smear with manual screeningon 08-24-2021 Thin prep Papanicolaou smear with manual screening 1 5-[address] [facility] Work Phone: Basophil percentageon 2021 Bilirubin [Mass/Vol] 0.80 mg/dL 0.20-1.00 [facility] Work Phone: Comment on above: For patients on eltr ombopag therapy, use of Dimension [place] TBIL is not recommended. Cholesterol [Mass/Vol] 139 mg/dL <[address] [facility] Work Phone: Comment on above: <200 mg/dL Desirable 200-240 mg/dL Borderline >240 mg/dL High Risk Protein [Mass/Vol] 7.5 g/dL 6.4-8.2 [facility] Work Phone: Triglyceride [Mass/Vol] 119 mg/dL [facility] Work Phone: Comment on above: The drugs N-Acetylcy steine and Metamizole may falsely depress this assay.Serum Triglycerides Reference Interval Normal <150 mg/dL Borderline high 150 - 199 mg/dL High 200 - 499 mg/dL Very High > or = 500 mg/dL Direct bilirubinon Bilirubin.direct [Mass/Vol] 0.19 mg/dL 0.00-0.[address] [facility] Work Phone: Laboratory - Chemistry and C hemistry - challengeon 08-05-2021 ALP [Catalytic activity/Vol] 113 U/L 45-[address] [facility] Work Phone: ALT [Catalytic activity/Vol] 33 U/L 16-[address] [facility] Work Phone: Globulin (S) [Mass/Vol] 3.7 g/dL 2.2-4.[address] [facility] Work Phone: Serum or plasma albumin kyleigh urement (mass/volume)on 08-05-2021 Albumin [Mass/Vol] 3.8 g/dL 3.2-5.0 [facility] Work Phone: Serum or plasma cholesterol in HDL measurement (mass/volume)on 08-05-2021 Cholesterol in HDL [Mass/Vol] 35 mg/dL [facility] Work Phone: Comment on above: The drugs N-Acetylcy steine and Metamizole may falsely depress this assay. Reference Range HDL <40 mg/dL Low HDL Cholesterol HDL >or= 60 mg/dL High HDL Cholesterol Serum or plasma cholesterol in VLDL measurement (mass/volume)on 08-05-2021 Cholesterol in VLDL [Mass/Vol] 24 mg/dL 5-[address] [facility] Work Phone: Serum or plasma low density lipoprotein (LDL) cholesterol measurement (mass/volume)on 08-05-2021 Cholesterol in LDL [Mass/Vol] 80 mg/dL 0-[address] [facility] Work Phone: Thin prep Papanicolaou smear with manual screeningon 08-05-2021 Thin prep Papanicolaou smear with manual screening 20 U/L 15-[address] [facility] Work Phone: OBSOLETEon 08-10-2017 OBSOLETE Refill (AGCARDWST) ----JERMAINE BEGUM ([id number]) 1945 M [facility] Time Provider Department08/10/17 EREN CLARK AGCARDWST During your visit today, we recorded the following information about you:Tyler Blackman MA 08/10/2017 1:31 PM SignedPatient is in waiting room and would like a printed prescription to take to thepharmacy.Please sign.Patient phones requesting refills as follows:Pending Prescriptions [...] CHELSEA: No Authorizing Provider: EREN CLARK MDAdam Gilmor RN, RN 08/10/2017 1:36 PM SignedGiven to patient.Allergies As of Date: 08/10/2017(No Known Allergies)Date Reviewed: 07/14/2017Reviewed by: Tyler Blackman - Fully AssessedReason for Visit: Refill [...] file. Status:Closed by AUSTIN MORGAN on 08/10/17 [facility] Kiet 07-28-2017 [facility] Telephone (AGCARDWST) ----CHANCEJERMAINE ([id number]) 1945 [facility] Time Provider Department07/28/17 EREN CLARKWSChristina During your visit today, we recorded the following information about you:Luly Palacio Psr 07/28/2017 9:32 AM SignedPatient has called the office twice and was unable to speak to a nurse. He hasquestions in regards to a new medication that he was prescribed. He did notdisclose the medication as he wishes to speak to a nurse. Please contactpatient at: [phone].Austin Morgan, RN, RN 07/28/2017 9:39 AM SignedPatient [...] PM SignedI agree. Best to avoid nonsteroidals.Eren E. SmoketownLuz acevedo, RN, RN 08/02/2017 3:45 PM SignedUnable to reach patient, unable to leave [facility].Austin Morgan, RN, RN 08/02/2017 4:29 PM SignedUnable to reach patient, unable to leave [facility] [place].Austin Morgan, RN, RN 08/02/2017 4:54 PM SignedPatient verbalizes understanding.Allergies As of Date: 07/28/2017(No Known Allergies)Date Reviewed: 07/14/2017Reviewed by: Tyler Blackman - Fully AssessedReason for Visit: Medication Question [9388]Prescriptions as of 07/28/2017 Sig: ISOSORBIDE MONONITRATE ER [...] FOR* Status:Closed by AUSTIN MORGAN on 07/28/17 [facility] [place] 07-14-2017 [facility] Office Visit (AGCARDWST) ----JERMAINE BEGUM ([id number]) 1945 M NFRDate Time Provider Department07/14/17 4:00 [...] - metBeta scottie for ASHD with prior DE or prior LVEFANDlt;40 (NQF 0070) - metBeta [...] with treatment plan.This note was generated using Viral[employer] voice recognition system, and there may besome [...] recently enrolled in an exercise program at [facility].He denies chest discomfort. 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 EAT A WHOLE FOOD, PLANT BASED [...] Status:Closed by EREN CLARK MD on 07/14/17 [facility] PROGRESSon 07-14-2017 PROGRESS HNO ID: [id number] thor: Eren Welch: (none)Author Type: PhysicianType: Progress NotesFiled: 07/14/2017 4:52 PMNote Text:PERTINENT CARDIAC HISTORYASHD - PCI Cx 2006, PCI Cx ISR [id number] - 3.9 cmADHERENCE TO GUIDELINESACE-I or ARB for HF with prior LVEF<40 (NQF 0081) - metASA or Plavix for ASHD (NQF 0067) - metBeta scottie for ASHD with prior DE or prior LVEF<40 (NQF 0070) - metBeta [...] with treatment plan.This note was generated using Viral[employer] voice recognition system, and theremay be some incorrect words, spellings, and punctuation that were notnoted in checking the note before saving.DIAGNOSIS FOR VISIT:ASHDHypertensionHISTORY OF PRESENT ILLNESSJermaine Begmu returns for follow-up of coronary disease.He underwent [...] was able to ride a bicycle at [place] on flat grade for miles at a time without any shortness of breath.He continues to have occasional episode of unexpected shortness of breathwhen carrying objects, especially upstairs.He has recently enrolled in an exercise program at [facility].He denies chest discomfort. He's had no edema, [...] ofischemia.Recent carotid exam showed stable disease.Electronically Signed:Eren Clark [facility] 2017 4:23 [facility]: Wes Rider MD [facility] OBSOLETEon 06-02-2017 OBSOLETE Refill (AGCARDWST) ----JERMAINE BEGUM ([id number]) 1945 M [facility] Time Provider Department06/02/17 EREN CLARK AGCARDWSChristina During your visit today, we recorded the following information about you:Austin Morgan, RN, RN 06/02/2017 10:02 AM SignedPatient states [...] tab* 90 t* 3 03/11/2017 06/02/2017 Class: CareNippo Route: ORAL Sig: Take 1 tablet by [...] file. Status:Closed by AUSTIN MORGAN on 06/02/17 [facility] OBSOLETEon 04-11-2017 OBSOLETE Refill (AGCARDWST) ----JERMAINE BEGUM ([id number]) 1945 M [facility] Time Provider Mztuwiczve12/27/17 EREN CLARK During your visit today, we recorded the following information about you:Austin Morgan RN, RN 04/11/2017 11:09 AM SignedPatient phones requesting refills as follows:Pending Prescriptions Disp Refills ISOSORBIDE MONONITRATE ER 30 MG TABLET,EXTENDED RELEASE 24 HR 30 tablet 6 Sig: Take 1 tablet by mouth once daily. Begin at 1/2 tablet daily CHELSEA: No Please review and advise.ASMITA Pradhanatient has been identified by name and date [...] discontinue is not on file. Status:Closed by TYLER BLACKMAN MA on 04/11/17 [facility] OBSOLETEon 03-11-2017 OBSOLETE Refill (AGCARDWST) ----JERMAINE BEGUM ([id number]) 1945 [facility] Bodehidmlt92/27/17 EREN CLARK During your visit today, we recorded the following information about you:Tyler Blackman MA 03/11/2017 9:53 AM SignedScript needs [...] discontinue is not on file. Status:Closed by TYLER BLACKMAN MA on 03/11/17 [facility] OBSOLETEon 03-10-2017 OBSOLETE Refill (AGCARDWST) ----JERMAINE BEGUM ([id number]) 1945 M NFRDate Time Provider Gyamtxrlni68/26/17 EREN CLARK During your visit today, we recorded the following information about you:Tyler Blackman MA 03/10/2017 9:05 AM SignedPatient phones [...] 03/10/2017 10:37 AM SignedPatient notified and verbalized understanding.Tyler Blackman MAAllergies As of Date: 03/10/2017(No Known Allergies)Date Reviewed: 11/02/2016Reviewed by: Jaylene Smallwood Ma - Fully AssessedReason for Visit: Refill Request [94]Visit Diagnoses:Hypokalemia [E87.6] BENIGN HYPERTENSION [I10]Order(s):spironolactone (ALDACTONE) 25 mg tabletTake 1 tablet by mouth once daily.Disp: 90 tabletRfl: 3 BASIC METABOLIC PNL [SQBMP] Order #: [id number] FUTUREPrescriptions as of 03/10/2017 Sig: SPIRONOLACTONE 25 [...] discontinue is not on file. Status:Closed by TYLER BLACKMAN MA on 03/10/17 Normal [facility] Vital Signs Date Time Vital Sign Value Performing Clinician Albert mayfield 11-27-2024 11:01-0400 Body height 180.3 cm Phillip Barnett MD Work Phone: [facility] 11-27-2024 11:01-0400 Body mass index (BMI) [Ratio] 33.05 kg/m2 Phillip Barnett MD Work Phone: [facility] 11-27-2024 11:01-0400 Body temperature 96.91 [degF] Phillip Barnett MD Work Phone: [facility] 11-27-2024 11:01-0400 Body weight 107.5 kg Phillip Barnett MD Work Phone: [facility] 11-27-2024 11:01-0400 Diastolic blood pressure 71 mm[Hg] Phillip Barnett MD Work Phone: [facility] 11-27-2024 11:01-0400 Heart rate 62 /min Phillip Barnett MD Work Phone: [facility] 11-27-2024 11:01-0400 SaO2% (BldA) [Mass fraction] 98 % Phillip Barnett MD Work Phone: [facility] 11-27-2024 11:01-0400 Systolic blood pressure 138 mm[Hg] Phillip Barnett MD Work Phone: [facility] 11-04-2024 01:55-0400 Body temperature 98.1 [degF] Yecenia Agrawal MD Work Phone: [facility] 11-04-2024 01:55-0400 Diastolic blood pressure 80 mm[Hg] Yecenia Agrawal MD Work Phone: [facility] 11-04-2024 01:55-0400 Heart rate 78 /min Yecenia Agrawal MD Work Phone: [facility] 11-04-2024 01:55-0400 Respiratory rate 16 /min Yecenia Agrawal MD Work Phone: [facility] 11-04-2024 01:55-0400 SaO2% (BldA) [Mass fraction] 99 % Yecenia Agrawal MD Work Phone: [facility] 11-04-2024 01:55-0400 Systolic blood pressure 168 mm[Hg] Yecenia Agrawal MD Work Phone: [facility] 11-03-2024 22:14-0400 Body height 185.42 cm Yecenia Agrawal MD Work Phone: [facility] 11-03-2024 22:14-0400 Body mass index (BMI) [Ratio] 31.4 kg/m2 Yecenia Agrawal MD Work Phone: [facility] 11-03-2024 22:14-0400 Body weight 108.18 kg Yecenia Agrawal MD Work Phone: 1(654)[phone] [place] [address] 05-03-2024 11:13-0500 Body height 185.42 cm Yecenia Agrawal MD Work Phone: [phone] [address] 05-03-2024 11:13-0500 Body weight 107.5 kg Yecenia Agrawal MD Work Phone: [facility] 05-02-2024 08:39-0500 Body mass index (BMI) [Ratio] 31.2 kg/m2 Yecenia Agrawal MD Work Phone: [facility] 08-12-2023 11:11-0400 Body height 185.[address] Wes Rider Work Phone: [facility] 08-12-2023 11:11-0400 Body mass index (BMI) [Ratio] 30.6 kg/m2 Dr. Wes Rider Work Phone: [facility] 08-12-2023 11:11-0400 Body weight 105.[address] Wes Rider Work Phone: [facility] 04-04-2023 15:23-0500 Body mass index (BMI) [Ratio] 31 kg/m2 Dr. Wes Rider Work Phone: [phone] [place] [address] 04-04-2023 15:23-0500 Body weight 106.[address] Wes Rider Work Phone: [phone])[phone] [place] [address] 04-04-2023 15:20-0500 Body height 185.[address] Wes Rider Work Phone: [phone])[phone] [place] [address] 04-04-2023 15:20-0500 Body temperature 98 [degF] Dr. Wes Rider Work Phone: 0(286)[phone] [place] [address] 04-04-2023 15:20-0500 Diastolic blood pressure 70 mm[Hg] Dr. Wes Rider Work Phone: 6(970)136-688555 [place] [address] 04-04-2023 15:20-0500 Heart rate 60 /min Dr. Wes Rider Work Phone: [phone])[phone] [place] [address] 04-04-2023 15:20-0500 Respiratory rate 16 /min Dr. Wes Rider Work Phone: [phone] [place] [address] 04-04-2023 15:20-0500 SaO2% (BldA) [Mass fraction] 99 % Dr. Wes Rider Work Phone: 5(612)[phone] [place] [address] 04-04-2023 15:20-0500 Systolic blood pressure 125 mm[Hg] Dr. Wes Rider Work Phone: 2(467)878-527755 [place] [address] 01-31-2023 09:54-0400 Body height 185.[address] Wes Rider Work Phone: 8(698)[phone] [place] [address] 01-31-2023 09:52-0400 Body mass index (BMI) [Ratio] 29.9 kg/m2 Dr. Wes Rider Work Phone: 9(333)[phone] [place] [address] 01-31-2023 09:52-0400 Body weight 102.[address] Wes Rider Work Phone: 0(210)[phone] [place] [address] 01-31-2023 09:52-0400 Diastolic blood pressure 74 mm[Hg] Dr. Wes Rider Work Phone: 0(153)[phone] [place] [address] 01-31-2023 09:52-0400 Heart rate 68 /min Dr. Wes Rider Work Phone: [facility] 01-31-2023 09:52-0400 Respiratory rate 18 /min Dr. Wes Rider Work Phone: [facility] 01-31-2023 09:52-0400 SaO2% (BldA) [Mass fraction] 97 % Dr. Wes Rider Work Phone: [facility] 01-31-2023 09:52-0400 Systolic blood pressure 149 mm[Hg] Dr. Wes Rider Work Phone: [facility] 09-21-2022 09:58-0400 Body temperature 96.6 [degF] Artur Mi MD, MD Work Phone: [facility] 09-21-2022 09:58-0400 Diastolic blood pressure 75 mm[Hg] Artur Mi MD, MD Work Phone: [facility] 09-21-2022 09:58-0400 Heart rate 63 /min Artur Mi MD, MD Work Phone: [facility] 09-21-2022 09:58-0400 SaO2% (BldA) [Mass fraction] 99 % Artur Mi MD, MD Work Phone: [facility] 09-21-2022 09:58-0400 Systolic blood pressure 145 mm[Hg] Artur Mi MD, MD Work Phone: [facility] 09-14-2022 09:41-0400 Body temperature 97.39 [degF] Artur Mi MD, MD Work Phone: [facility] 09-14-2022 09:41-0400 Diastolic blood pressure 65 mm[Hg] Artur Mi MD, MD Work Phone: [facility] 09-14-2022 09:41-0400 Heart rate 76 /min Artur Mi MD, MD Work Phone: [facility] 09-14-2022 09:41-0400 Respiratory rate 15 /min Artur Mi MD, MD Work Phone: [facility] 09-14-2022 09:41-0400 SaO2% (BldA) [Mass fraction] 99 % Artur Mi MD, MD Work Phone: [facility] 09-14-2022 09:41-0400 Systolic blood pressure 138 mm[Hg] Artur Mi MD, MD Work Phone: [facility] 09-07-2022 09:51-0400 Body temperature 97 [degF] Artur Mi MD, MD Work Phone: [facility] 09-07-2022 09:51-0400 Body weight 97.52 kg Artur Mi MD, MD Work Phone: [facility] 09-07-2022 09:51-0400 Diastolic blood pressure 77 mm[Hg] Artur Mi MD, MD Work Phone: [facility] 09-07-2022 09:51-0400 Heart rate 66 /min Artur Mi MD, MD Work Phone: [facility] 09-07-2022 09:51-0400 SaO2% (BldA) [Mass fraction] 100 % Artur Mi MD, MD Work Phone: [facility] 09-07-2022 09:51-0400 Systolic blood pressure 137 mm[Hg] Artur iM MD, MD Work Phone: [facility] 08-24-2022 10:07-0400 Body temperature 97 [degF] Artur Mi MD, MD Work Phone: [facility] 08-24-2022 10:07-0400 Diastolic blood pressure 74 mm[Hg] Artur Mi MD, MD Work Phone: [facility] 08-24-2022 10:07-0400 Heart rate 77 /min Artur Mi MD, MD Work Phone: [facility] 08-24-2022 10:07-0400 Respiratory rate 16 /min Artur Mi MD, MD Work Phone: [facility] 08-24-2022 10:07-0400 SaO2% (BldA) [Mass fraction] 99 % Artur Mi MD, MD Work Phone: [facility] 08-24-2022 10:07-0400 Systolic blood pressure 138 mm[Hg] Artur Mi MD, MD Work Phone: [facility] 06-07-2022 09:45-0500 Diastolic blood pressure 70 mm[Hg] Artur Mi MD, MD Work Phone: [facility] 06-07-2022 09:45-0500 Heart rate 88 /min Artur Mi MD, MD Work Phone: [facility] 06-07-2022 09:45-0500 Systolic blood pressure 126 mm[Hg] Artur Mi MD, MD Work Phone: [facility] 06-07-2022 09:37-0500 Body temperature 97 [degF] Artur Mi MD, MD Work Phone: [facility] 06-07-2022 09:37-0500 Body weight 106.14 kg Artur Mi MD, MD Work Phone: [facility] 06-07-2022 09:37-0500 Respiratory rate 16 /min Artur Mi MD, MD Work Phone: [facility] 06-07-2022 09:37-0500 SaO2% (BldA) [Mass fraction] 99 % Artur Mi MD, MD Work Phone: [facility] 05-20-2022 16:27-0500 Body weight 104.24 kg Wes Rider MD Work Phone: [facility] 05-20-2022 16:27-0500 Diastolic blood pressure 72 mm[Hg] Wes Rider MD Work Phone: [facility] 05-20-2022 16:27-0500 Heart rate 78 /min Wes Rider MD Work Phone: [facility] 05-20-2022 16:27-0500 Respiratory rate 16 /min Wes Rider MD Work Phone: [facility] 05-20-2022 16:27-0500 Systolic blood pressure 130 mm[Hg] Wes Rider MD Work Phone: [facility] 03-09-2022 13:12-0400 Body height 185.4 cm Rubén Alves PA-C Work Phone: [facility] 03-09-2022 13:12-0400 Body temperature 98.01 [degF] Rubén Alves PA-C Work Phone: [facility] 03-09-2022 13:12-0400 Body weight 99.34 kg Rubén Alves PA-C Work Phone: [facility] 03-09-2022 13:12-0400 Diastolic blood pressure 74 mm[Hg] Rubén Alves PA-C Work Phone: [facility] 03-09-2022 13:12-0400 Heart rate 86 /min Rubén Alves PA-C Work Phone: [facility] 03-09-2022 13:12-0400 Respiratory rate 16 /min Rubén Alves PA-C Work Phone: [facility] 03-09-2022 13:12-0400 SaO2% (BldA) [Mass fraction] 98 % Rubén Alves PA-C Work Phone: [facility] 03-09-2022 13:12-0400 Systolic blood pressure 114 mm[Hg] Rubén Alves PA-C Work Phone: [facility] 02-13-2022 01:37-0400 Body weight 98.[address] Wes Rider Work Phone: [facility] Work Phone: 02-11-2022 10:03-0400 Body height 185.[address] Wes Rider Work Phone: [facility] Work Phone: 02-11-2022 10:03-0400 Body mass index (BMI) [Ratio] 28.5 kg/m2 Dr. Wes Rider Work Phone: [facility] Work Phone: 02-11-2022 10:03-0400 Body weight 97.[address] Wes Rider Work Phone: [facility] Work Phone: 02-11-2022 10:03-0400 Diastolic blood pressure 54 mm[Hg] Dr. Wes Rider Work Phone: [facility] Work Phone: 02-11-2022 10:03-0400 Heart rate 81 /min Dr. Wes Rider Work Phone: [facility] Work Phone: 02-11-2022 10:03-0400 Respiratory rate 16 /min Dr. Wes Rider Work Phone: [facility] Work Phone: 02-11-2022 10:03-0400 Systolic blood pressure 109 mm[Hg] Dr. Wes Rider Work Phone: [facility] Work Phone: 01-22-2022 11:22-0400 Body weight 98.[address] Wes Rider Work Phone: [facility] Work Phone: 12-30-2021 14:06-0400 Body temperature 97 [degF] Marie Beavers MD Work Phone: [facility] 12-30-2021 14:06-0400 Body weight 98.39 kg Marie Beavers MD Work Phone: [facility] 12-30-2021 14:06-0400 Diastolic blood pressure 69 mm[Hg] Marie Beavers MD Work Phone: [facility] 12-30-2021 14:06-0400 Heart rate 91 /min Marie Beavers MD Work Phone: [facility] 12-30-2021 14:06-0400 Respiratory rate 20 /min Marie Beavers MD Work Phone: [facility] 12-30-2021 14:06-0400 Systolic blood pressure 133 mm[Hg] Marie Beavers MD Work Phone: [facility] 12-23-2021 14:56-0400 Body height 185.[address] Wes Rider Work Phone: [facility] Work Phone: 12-23-2021 14:56-0400 Body weight 98.[address] Wes Rider Work Phone: [facility] Work Phone: 12-23-2021 14:22-0400 Body mass index (BMI) [Ratio] 27.4 kg/m2 Dr. Wes Rider Work Phone: [facility] Work Phone: 12-23-2021 14:22-0400 Body temperature 97.5 [degF] Dr. Wes Rider Work Phone: [facility] Work Phone: 12-23-2021 14:22-0400 Diastolic blood pressure 63 mm[Hg] Dr. Wes Rider Work Phone: [facility] Work Phone: 12-23-2021 14:22-0400 Heart rate 86 /min Dr. Wes Rider Work Phone: [facility] Work Phone: 12-23-2021 14:22-0400 Respiratory rate 14 /min Dr. Wes Rider Work Phone: [facility] Work Phone: 12-23-2021 14:22-0400 SaO2% (BldA) [Mass fraction] 97 % Dr. Wes Rider Work Phone: [facility] Work Phone: 12-23-2021 14:22-0400 Systolic blood pressure 100 mm[Hg] Dr. Wes Rider Work Phone: [facility] Work Phone: 11-17-2021 12:55-0400 Body height 185.4 cm Pacc 3 Work Phone: [facility] 11-17-2021 12:55-0400 Body temperature 96.8 [degF] Pacc 3 Work Phone: [facility] 11-17-2021 12:55-0400 Body weight 97.48 kg Pacc 3 Work Phone: [facility] 11-17-2021 12:55-0400 Diastolic blood pressure 76 mm[Hg] Pacc 3 Work Phone: [facility] 11-17-2021 12:55-0400 Heart rate 88 /min Pacc 3 Work Phone: [facility] 11-17-2021 12:55-0400 SaO2% (BldA) [Mass fraction] 100 % Pacc 3 Work Phone: [facility] 11-17-2021 12:55-0400 Systolic blood pressure 135 mm[Hg] Pacc 3 Work Phone: [facility] 11-17-2021 10:58-0400 Body height 185 cm Isha Nicoleoda CREW PERSON.VASCULAR PHYSICIAN Work Phone: [facility] 11-17-2021 10:58-0400 Body weight 92.99 kg Isha Loboda CREW PERSON.VASCULAR PHYSICIAN Work Phone: [facility] 11-17-2021 10:58-0400 Diastolic blood pressure 81 mm[Hg] Isha Loboda CREW PERSON.VASCULAR PHYSICIAN Work Phone: [facility] 11-17-2021 10:58-0400 Heart rate 102 /min Isha Loboda CREW PERSON.VASCULAR PHYSICIAN Work Phone: [facility] 11-17-2021 10:58-0400 Systolic blood pressure 149 mm[Hg] Isha Bruce CREW PERSON.VASCULAR PHYSICIAN Work Phone: [facility] 10-29-2021 13:11-0400 Body mass index (BMI) [Ratio] 28.6 kg/m2 Dr. Wes Rider Work Phone: [facility] Work Phone: 10-29-2021 13:11-0400 Body weight 98.[address] Wes Rider Work Phone: [facility] Work Phone: 10-29-2021 13:11-0400 Diastolic blood pressure 63 mm[Hg] Dr. Wes Rider Work Phone: [facility] Work Phone: 10-29-2021 13:11-0400 Heart rate 86 /min Dr. Wes Rider Work Phone: [facility] Work Phone: 10-29-2021 13:11-0400 Respiratory rate 16 /min Dr. Wes Rider Work Phone: [facility] Work Phone: 10-29-2021 13:11-0400 Systolic blood pressure 100 mm[Hg] Dr. Wes Rider Work Phone: [facility] Work Phone: 10-13-2021 14:34-0400 Body height 185 cm Andegoni Evelyn CREW PERSON.VASCULAR PHYSICIAN Work Phone: [facility] 10-13-2021 14:34-0400 Body temperature 98.4 [degF] Andegoni Kathyalamamis CREW PERSON.VASCULAR PHYSICIAN Work Phone: [facility] 10-13-2021 14:34-0400 Body weight 100.2 kg Andegoni Marins CREW PERSON.VASCULAR PHYSICIAN Work Phone: [facility] 10-13-2021 14:34-0400 Diastolic blood pressure 74 mm[Hg] Andegoni Sandalakis CREW PERSON.VASCULAR PHYSICIAN Work Phone: [facility] 10-13-2021 14:34-0400 Heart rate 85 /min Andegoni Sandalakis CREW PERSON.VASCULAR PHYSICIAN Work Phone: [facility] 10-13-2021 14:34-0400 Respiratory rate 12 /min Andegoni Sandalakis CREW PERSON.VASCULAR PHYSICIAN Work Phone: [facility] 10-13-2021 14:34-0400 SaO2% (BldA) [Mass fraction] 100 % Andegoni Sandalakis CREW PERSON.VASCULAR PHYSICIAN Work Phone: [facility] 10-13-2021 14:34-0400 Systolic blood pressure 136 mm[Hg] Andegoni Sandalakis CREW PERSON.VASCULAR PHYSICIAN Work Phone: [facility] 10-09-2021 16:56-0400 Body weight 98.88 kg Diamond Damon MD Work Phone: [facility] 09-29-2021 11:04-0400 Body height 185 cm [facility] Work Phone: [facility] 09-29-2021 11:04-0400 Body temperature 97.7 [degF] [facility] Work Phone: [facility] 09-29-2021 11:04-0400 Body weight 106.7 kg [facility] Work Phone: [facility] 09-29-2021 11:04-0400 Diastolic blood pressure 69 mm[Hg] [facility] Work Phone: [facility] 09-29-2021 11:04-0400 Heart rate 49 /min [facility] Work Phone: [facility] 09-29-2021 11:04-0400 SaO2% (BldA) [Mass fraction] 98 % [facility] Work Phone: [facility] 09-29-2021 11:04-0400 Systolic blood pressure 129 mm[Hg] [facility] Work Phone: [facility] 08-31-2021 16:59-0400 Diastolic blood pressure 74 mm[Hg] Bandar Soria DO Work Phone: [facility] 08-31-2021 16:59-0400 SaO2% (BldA) [Mass fraction] 99 % Bandar Soria DO Work Phone: [facility] 08-31-2021 16:59-0400 Systolic blood pressure 151 mm[Hg] Bandar Soria DO Work Phone: [facility] 08-26-2021 15:56-0400 Diastolic blood pressure 72 mm[Hg] Marie Bautista MD Work Phone: [facility] 08-26-2021 15:56-0400 Systolic blood pressure 128 mm[Hg] Marie Bautista MD Work Phone: [facility] 08-26-2021 15:52-0400 Body height 185.4 cm Marie Bautista MD Work Phone: [facility] 08-26-2021 15:52-0400 Body weight 99.34 kg Marie Bautista MD Work Phone: [facility] 08-26-2021 15:52-0400 Heart rate 65 /min Marie Bautista MD Work Phone: [facility] 08-26-2021 15:52-0400 Respiratory rate 18 /min Marie Bautista MD Work Phone: [facility] 08-26-2021 15:52-0400 SaO2% (BldA) [Mass fraction] 98 % Marie Bautista MD Work Phone: [facility] 08-06-2021 16:14-0400 Body height 185.[address] Wes Rider Work Phone: [facility] Work Phone: 08-06-2021 16:14-0400 Body mass index (BMI) [Ratio] 30.7 kg/m2 Dr. Wes Rider Work Phone: [facility] Work Phone: 08-06-2021 16:14-0400 Body weight 105.[address] Wes Rider Work Phone: [facility] Work Phone: 08-06-2021 16:14-0400 Diastolic blood pressure 66 mm[Hg] Dr. Wes Rider Work Phone: [facility] Work Phone: 08-06-2021 16:14-0400 Heart rate 60 /min Dr. Wes Rider Work Phone: [facility] Work Phone: 08-06-2021 16:14-0400 Respiratory rate 16 /min Dr. Wes Rider Work Phone: [facility] Work Phone: 08-06-2021 16:14-0400 SaO2% (BldA) [Mass fraction] 97 % Dr. Wes Rider Work Phone: [facility] Work Phone: 08-06-2021 16:14-0400 Systolic blood pressure 111 mm[Hg] Dr. Wes Rider Work Phone: [facility] Work Phone: Encounters Encounter Date Encounter Type Care Provider Facility Start: 11-27-2024 End: 11-27-2024 Patient encounter procedure Phillip Barntet MD Work Phone: Hematology/Oncology Start: 11-27-2024 End: 11-27-2024 ambulatory Phillip Barnett MD Work Phone: Hematology/Oncology Comment on above: Prostate cancer (HCC ) (Primary Dx) Start: 11-20-2024 End: 11-20-2024 Telephone encounter Phillip Barnett MD Work Phone: Hematology/Oncology Comment on above: Orders Start: 11-20-2024 End: 11-20-2024 ambulatory PHILLIP BARNETT Facility:[facility] Start: 11-03-2024 End: 11-04-2024 Emergency department patient visit Yecenia Agrawal MD Work Phone: -Emergency Department Work Phone: Start: 11-02-2024 End: 11-04-2024 Telephone encounter Phillip Barnett MD Work Phone: Hematology/Oncology Comment on above: New Patient Start: 10-23-2024 End: 10-24-[address] GRISELDA LYNCH MD Facility:[facility] Start: 10-23-2024 End: 10-24-[address] GRISELDA LYNCH MD [facility] Start: 09-24-2024 ambulatory YECENIA AGRAWAL MD Facility :[facility] Start: 08-29-2024 End: 08-29-[address] GRISELDA LYNCH MD Facility:[facility] Start: 08-29-2024 End: 08-29-[address] GRISELDA LYNCH MD Facility:[facility] Start: 08-28-2024 End: 08-28-2024 ambulatory Yecenia Agrawal MD Work Phone: [facility] Work Phone: Start: 08-28-2024 End: 08-28-[address] Yecenia Agrawal MD -Laboratory, [facility] Start: 08-28-2024 End: 08-28-2024 ambulatory Yecenia Agrawal Facility:[facility] Start: 08-21-2024 End: 08-21-2024 ambulatory MARIE BEAVERS Facility:[facility] Start: 06-26-2024 End: 07-03-2024 ambulatory Marie Beavers MD Work Phone: Hematology/Oncology Comment on above: [facility] Start: 06-18-2024 End: 06-18-2024 ambulatory MARIE BEAVERS Facility:[facility] Start: 06-18-2024 End: 06-18-2024 Subsequent hospital visit by physician [facility] Comment on above: Prostate cancer (HCC ) [C61] Start: 06-07-2024 End: 06-08-2024 Telephone encounter Tiffanie Cheung RN Hematology/Oncology Comment on above: Nm Pet Request Start: 05-25-2024 End: 05-26-2024 ambulatory Marie Beavers MD Work Phone: Hematology/Oncology Comment on above: Prostate cancer (HCC ) (Primary Dx) Start: 05-25-2024 End: 05-25-2024 Telemedicine consultation with patient Marie Beavers MD Work Phone: Hematology/Oncology Start: 05-23-2024 End: 05-23-2024 ambulatory MARIE BEAVERS Facility:[facility] Start: 05-03-2024 End: 05-03-2024 Admission to same day surgery center Dr. Junior Johnson MD -Clinical Product Specialist/Special Procedures Work Phone: Start: 05-03-2024 End: 05-03-2024 ambulatory Chalon Tanja Facility:[facility] Start: 04-27-2024 ambulatory Talia MCGEE Facility:[facility] Start: 04-23-2024 ambulatory Junior Johnson Facility:[facility] Start: 04-23-2024 End: 04-23-2024 ambulatory Chalon [facility] Facility:[facility] Start: 03-27-2024 End: 03-27-2024 ambulatory Wes Rider Facility:[facility] Start: 02-16-2024 End: 02-16-2024 ambulatory [facility] Facility:[facility] Start: 11-03-2023 ambulatory Wes burch MD Work Phone: [facility] Comment on above: Cancel Appt. Start: 10-20-2023 Telephone encounter Wes vega MD Work Phone: [facility] Comment on above: Results Start: 09-02-2023 End: 09-02-[address] Wes Rider Work Phone: [facility] Work Phone: Start: 09-02-2023 End: 09-02-[address] Wes Rider Work Phone: [facility]-Laboratory Work Phone: Start: 08-26-2023 End: 08-26-[address] Wes Rider Work Phone: [facility] Work Phone: Start: 08-24-2023 End: 08-24-[address] Wes Rider Work Phone: [facility] Work Phone: Start: 08-24-2023 End: 08-24-[address] Wes Rider Work Phone: [facility] Work Phone: Start: 08-17-2023 End: 08-17-2023 ambulatory Marie Beavers MD Work Phone: Hematology/Oncology Comment on above: Prostate cancer (HCC ) (Primary Dx) Start: 08-17-2023 End: 08-17-2023 Telemedicine consultation with patient Marie Beavers MD Work Phone: [facility] Start: 08-12-2023 End: 08-12-[address] Wes Rider Work Phone: [facility] Work Phone: Start: 04-04-2023 End: 04-04-2023 Emergency department patient visit Dr. Wes Rider Work Phone: [facility]-Emergency Department Work Phone: Start: 04-04-2023 ambulatory Wes burch MD Work Phone: [facility] [place] Comment on above: Back Pain Start: 04-01-2023 End: 04-01-[address] Wes Rider Work Phone: [facility] Work Phone: Start: 04-01-2023 End: 04-01-[address] [facility] Start: 02-10-2023 End: 02-10-2023 ambulatory Marie Beavers MD Work Phone: Hematology/Oncology Comment on above: Prostate CA (HCC) (P rimary Dx) Start: 02-10-2023 End: 02-10-2023 Telemedicine consultation with patient Marie Beavers MD Work Phone: [facility] Start: 01-31-2023 End: 01-31-[address] Wes Rider Work Phone: [facility] Work Phone: Start: 01-28-2023 End: 01-28-[address] Wes Rider Work Phone: [facility] Work Phone: Start: 01-28-2023 End: 01-28-[address] [facility] Start: 11-11-2022 End: 11-11-2022 Follow-up encounter Artur Mi MD Work Phone: Radiation Oncology Comment on above: Radiotherapy follow- up (Primary Dx); Prostate cancer (HCC) Start: 11-11-2022 End: 11-11-2022 Telemedicine consultation with patient Artur Mi MD, MD Work Phone: [facility] Start: 10-15-2022 ambulatory Wes burch MD Work Phone: [facility] Start: 10-15-2022 Patient encounter procedure Wes Rider MD Work Phone: [facility] [place] Comment on above: Blood Test and Offic e Visit Start: 10-13-2022 ambulatory Artur Mi MD Work Phone: Radiation Oncology Comment on above: Patient Education (C ompleted radiation) Start: 10-13-2022 Patient encounter procedure Artur Mi MD, MD Work Phone: [facility] [place] Start: 10-13-2022 Radiation Oncology Note Mary Anne [...] (HCC ) (Primary Dx) Start: 08-24-2022 ambulatory Wes burch MD Work Phone: Internal Medicine [facility] Start: 08-24-2022 End: 08-24-2022 Nursing evaluation of patient and report Nurse Urol [facility] Work Phone: Urology Comment on above: Malignant neoplasm o f prostate (HCC) (Primary Dx) Start: 08-24-2022 End: 08-24-2022 Patient encounter procedure Artur Mi MD Work Phone: Radiation Oncology Comment on above: Prostate cancer (HCC ) (Primary Dx) Start: 08-17-2022 End: 08-17-2022 ambulatory Jacquelyn Heller PT Work Phone: [facility] Physical Therapy Comment on above: RICARDO (stress urinary incontinence), male (Primary Dx); Prostate cancer (HCC) Start: 08-16-2022 ambulatory Artur Mi MD Work Phone: Radiation Oncology Comment on above: August 23 Radiation f or Braulio Begum ? Start: 08-13-2022 Patient encounter procedure Corby Elliott MD Work Phone: [facility] Start: 08-13-2022 Radiation Oncology Note Corby Elliott MD Work Phone: Radiation Oncology Comment on above: Simulation Note Treatment Planning Start: 08-10-2022 Telephone encounter Rubén floyd PA-C Work Phone: Urology Comment on above: Patient Question Start: 08-09-2022 Patient encounter procedure Corby Elliott MD Work Phone: [facility] Start: 08-09-2022 Radiation Oncology Note Corby Elliott MD Work Phone: Radiation Oncology Comment on above: Simulation Note Start: 08-03-2022 End: 08-03-2022 ambulatory Jacquelyn Heller PT Work Phone: [facility] Physical Therapy Comment on above: RICARDO (stress [...] with patient Marie Beavers MD Work Phone: [facility] Start: 06-07-2022 End: 06-07-2022 Patient encounter procedure Artur Mi MD Work Phone: Radiation Oncology Comment on above: Prostate cancer (HCC ) (Primary Dx) Start: 06-04-2022 End: 06-04-2022 ambulatory Jacquelyn Heller PT Work Phone: [facility] Physical Therapy Comment on above: Prostate cancer (HCC ) (Primary Dx); RICARDO (stress urinary incontinence), male; Muscle weakness Start: 06-03-2022 ambulatory Wes burch MD Work Phone: [facility] Comment on above: Do We Need Blood Janice t? 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 Start: 04-26-2022 Telephone encounter Rubén MCGEE-C Work Phone: Urology Comment on above: Orders Start: 04-22-2022 ambulatory Arely Carreno RN [facility] Comment on above: Rx for Cirilo Begum Start: 04-13-2022 Telephone encounter Rubén MCGEE-C Work Phone: Urology Comment on above: Orders [...] with patient Marie Beavers MD Work Phone: [facility] Start: 02-22-2022 End: 03-15-[address] Wes Rider Work Phone: [facility] Work Phone: Start: 02-22-2022 End: 03-15-[address] Wes Rider Work Phone: [facility]Card[facility] Re[facility] Start: 02-12-2022 End: 02-12-[address] Wes Rider Work Phone: [facility] Start: 02-11-2022 End: 02-11-[address] Wes Rider Work Phone: [facility] Start: 02-04-2022 ambulatory Rubén Alves PA-C Work Phone: Urology Comment on above: Lack of Bladder Cont rol Start: 01-26-[address] [facility] Comment on above: Population Health Na vigation Outreach (Diabetes Management) Start: 01-13-2022 End: 01-13-[address] Wes Rider Work Phone: [facility] Work Phone: Start: 01-13-2022 End: 01-13-[address] [facility] Start: 01-01-2022 End: 01-01-2022 ambulatory Charley Gonzalez RN NURSE HOME HEALTH CAREGIVER Comment on above: Information Prostate cancer (HCC ) (Primary Dx); RICARDO (stress urinary incontinence), male; Erectile dysfunction following radical prostatectomy Start: 01-01-2022 End: 01-01-2022 Telemedicine consultation with patient Diamond Damon MD Work Phone: [facility] Start: 12-30-2021 End: 12-30-2021 ambulatory Marie Beavers MD Work Phone: Hematology/Oncology Comment on above: Prostate CA (HCC) (P rimary Dx) Start: 12-30-2021 End: 12-30-2021 Patient encounter procedure Marie Beavers MD Work Phone: [facility] Start: 12-28-[address] Wes Rider Work Phone: [facility] Start: 12-23-2021 Telephone encounter Wes vega MD Work Phone: [facility] Comment on above: Lab Orders Start: 12-23-2021 End: 12-23-[address] Wes Rider Work Phone: [facility] Start: 12-12-2021 Non-patient / Non-visit Dr. Janice Rider Work Phone: [facility] Start: 12-09-2021 Telephone encounter Ginger Mccain Urological & Comment on above: Returning Patient's Call Start: 12-02-2021 Telephone encounter Wes vega MD Work Phone: [facility] Comment on above: Gout flare up Start: 11-25-2021 Orders Only Debbie bolaños CREW PERSON.VASCULAR PHYSICIAN Work Phone: Urology Comment on above: Prostate cancer (HCC ) (Primary Dx) Start: 11-24-2021 End: 11-24-2021 ambulatory Diamond Damon MD Work Phone: Urology Comment on above: Prostate cancer (HCC ) (Primary Dx) Start: 11-24-2021 End: 11-24-2021 Telemedicine consultation with patient Diamond Damon MD Work Phone: [facility] Start: 11-17-2021 End: 11-17-2021 ambulatory Pacc Main 3 Work Phone: Pre Anesthesia Comment on above: Pre-op evaluation (P rimary Dx); Malignant neoplasm of prostate (HCC) Start: 11-17-2021 End: 11-17-2021 Admission to establishment Pacc Main 3 Work Phone: [facility] Start: 11-17-2021 End: 11-17-2021 Preprocedural examination done Pacc Main 3 Work Phone: Pre Anesthesia Start: 11-17-2021 End: 11-17-2021 Patient encounter procedure Isha Keane CREW PERSON.VASCULAR PHYSICIAN Work Phone: Urology Comment on above: Malignant neoplasm o f prostate (HCC) (Primary Dx) Start: 11-11-2021 Orders Only Shree Marley Work Phone: Cardiology Comment on above: Sinus bradycardia (P rimary Dx) Received Outside Med ical Records Start: 11-04-2021 Patient Outreach Clarke garza RN Work Phone: W[employer] Engineer Management Comment on above: Transition Of Care ( [facility] f/u [facility] Hospital Discharge 10/06/21) Start: 10-30-2021 Telephone encounter Mauricio Riley MD Work Phone: Cardiology Comment on above: Post Dc Program Call - Needs Attn Start: 10-29-2021 End: 10-29-[address] Wes Rider Work Phone: [facility] Start: 10-25-2021 Patient Outreach Clarke garza RN Work Phone: Weld Engineer Management Comment on above: Transition Of Care ( [facility] f/u [facility] Hospital Discharge 10/06/21) Start: 10-21-2021 Telephone encounter Moe Bautista MD Work Phone: Cardiology Comment on above: Received Outside Med ical Records ([facility]); Appointment (EP) Start: 10-14-2021 Telephone encounter Rubén floyd PA-C Work Phone: Urology Comment on above: Orders Start: 10-14-2021 End: 10-14-[address] Wes Rider Work Phone: [facility]-Pulmonary Services/Neurology Start: 10-13-2021 End: 10-13-2021 Patient encounter procedure Miri Rivas APRN.VASCULAR PHYSICIAN Work Phone: Cardiothoracic Comment on above: S/P CABG (coronary a rtery bypass graft) (Primary Dx); S/P Maze operation for atrial fibrillation Start: 10-13-2021 End: 10-13-2021 Subsequent hospital visit by physician Xr Chest Main J1 Work Phone: Radiology Comment on above: Surgery follow-up [Z 09] Start: 10-10-2021 Non-patient / Non-visit Dr. Janice Rider Work Phone: [facility] Start: 10-09-2021 End: 10-09-2021 ambulatory Diamond Damon MD Work Phone: Urology Comment on above: Malignant neoplasm o f prostate (HCC) (Primary Dx) Start: 10-09-2021 End: 10-09-2021 Telemedicine consultation with patient Diamond Damon MD Work Phone: [facility] Start: 10-07-2021 Patient Outreach Clarke garza RN Work Phone: Weld Engineer Management Comment on above: Transition Of Care ( TCM Initial [facility] Hospital Discharge 10/06/21) Follow Up Phone Call (Rc f/u call first attempt) Transition Of Care ( Pharmacy - Hospital Discharge 10/06/2021) Start: 09-29-2021 ambulatory Liz Davey APRN.CNP Work Phone: Cardiothoracic Comment on above: Patient [...] (HCC) (Primary Dx); Coronary artery disease involving [place] coronary artery of [place] heart with angina pectoris (HCC); Atrial fibrillation, unspecified type (HCC); Prostate cancer (HCC); Hyperlipidemia, unspecified hyperlipidemia type; Primary hypertension; Pre-operative cardiovascular examination Start: 09-29-2021 End: 09-29-2021 Patient encounter status Mauricio Riley MD Work Phone: [facility] Work Phone: Start: 09-28-2021 End: 09-28-2021 ambulatory Ginger Finn RN Pulmonary Medicine Comment on above: Spirometry Start: 09-28-2021 End: 09-28-2021 Patient encounter procedure Pulm Fct Lab J-2 [facility] Start: 09-28-2021 End: 09-28-2021 Patient encounter status Pulm J-2 Pulmonary Medic ine Start: 09-23-2021 End: 09-23-2021 Subsequent hospital visit by physician [facility] (I-Stat/1.5t) Work Phone: Radiology Comment on above: 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 Janice chapa [facility] Work Phone: [facility] Start: 09-03-2021 Patient encounter status Wai Riley MD Work Phone: Cardiothoracic Start: 09-03-2021 Telephone encounter Mauricio Riley MD Work Phone: Cardiothoracic Comment on above: Schedule Surgery (Pr e-op Checklist) Start: 09-02-2021 End: 09-02-2021 Patient encounter procedure Debbie Morrow APRN.VASCULAR PHYSICIAN Work Phone: Urology Comment on above: APPOINTMENT CANCELLE D (Primary Dx) Start: 09-02-2021 Telephone encounter Mauricio Riley MD Work Phone: Cardiothoracic Comment on above: Insurance Authorizat ion Start: 09-01-2021 Orders Only Debbie bolaños CREW PERSON.VASCULAR PHYSICIAN Work Phone: Urology Comment on above: Prostate cancer (HCC ) (Primary Dx) Returning Patient's Call Start: 08-31-2021 End: 08-31-2021 Patient encounter procedure Bandar Soria DO Work Phone: Cardiology Comment on above: Abnormal stress test (Primary Dx); Coronary artery disease involving [place] coronary artery of [place] heart without angina pectoris; Elevated prostate specific [...] test (Primary Dx); Coronary artery disease involving [place] coronary artery of [place] heart without angina pectoris; Presence of drug coated stent in left circumflex coronary artery; Hyperlipidemia LDL goal <70; Hypertension goal BP (blood pressure) < 140/80 Start: 08-26-2021 End: 08-26-[address] Wes Rider Work Phone: [facility]-Pre-Admission Testing Start: 08-25-2021 Orders Only Marie hdz MD Work Phone: Cardiology Comment on above: Essential hypertensi on, benign (Primary Dx); Coronary artery disease involving [place] heart without angina pectoris, unspecified vessel or lesion type; Mixed hyperlipidemia; Controlled type 2 diabetes mellitus without complication, without long-term current use of insulin (HCC) Future Appointment Start: 08-24-2021 Telephone encounter Tima Murray MD Work Phone: Urology Comment on above: Patient Question Start: 08-20-2021 Non-patient / Non-visit Dr. Janice Rider Work Phone: [facility] Start: 08-20-2021 End: 08-20-[address] Wes Rider Work Phone: [facility]-Cardiovascular Services Start: 08-17-2021 End: 08-17-2021 ambulatory Quentin Hampton MD Work Phone: Radiation Oncology Comment on above: Prostate cancer (HCC ); Abnormal findings on diagnostic imaging of other parts of musculoskeletal system Start: 08-17-2021 End: 08-17-2021 Telemedicine consultation with patient Quentin Hampton MD Work Phone: [facility] Start: 08-06-[address] Inés Rider Work Phone: [facility] Start: 08-06-2021 End: 08-06-2021 Admission to same day surgery center Dr. Wes Rider Work Phone: [facility] Start: 08-06-2021 End: 08-06-[address] Wes Rider Work Phone: [facility] Start: 08-05-2021 End: 08-05-[address] Wes Rider Work Phone: [facility]-Laboratory Start: 03-16-2018 Ambulatory EREN CLAYTON Facility :[facility] Start: 07-14-2017 Ambulatory EREN Fabien [facility] Procedures Date Procedure Procedure Detail Performing Clinician Start: 11-03-2024 Plain X-ray abdomen Rhonda Agrawal MD Work Phone: Start: 10-23-[address] GRISELDA LYNCH MD Comment on above: RIGHT Start: 04-27-2024 X-ray of chest, PA a nd lateral views Yecenia Agrawal MD Work Phone: Start: 08-24-2023 MRI of lumbar spine Dr. Wes Rider Work Phone: Start: 08-12-2023 X-ray of lumbosacral spine Dr. Wes Rider Work Phone: Start: 04-04-2023 Radiography of thora cic spine Dr. Wes Rider Work Phone: Start: 04-04-2023 X-ray of lumbar spin e, two or three views Dr. Wes Rider Work Phone: Start: 03-09-2022 Urnls dip [...] perfusion of myocardium under exercise stress Dr. Wes Rider Work Phone: Start: 09-16-2020 Adult depression screening assessment Quentin Hampton MD Work Phone: Start: 10-18-2014 History of placement of stent for coronary artery disease History of coronary artery stent placement Dr. Junior Johnson MD Comment on above: JAO-QLF-bhwgopzt LCX w/4.0 X 18 mm Vision stent 02/14/2007; [id number]-HYK-AAX-Proximal LCX w/ 4.0 X 28 mm Xience Alpine MAGDA 10/18/2014 Coronary artery bypa ss grafts x 3 DR GRISELDA LYNCH MD History of coronary artery bypass grafting S/P CABG (coronary artery bypass graft) Miri Rivas APRN.VASCULAR PHYSICIAN Work Phone: History of operative procedure on knee History of right knee surgery Yecenia Agrawal MD Work Phone: Maze procedure DR GRISELDA REGAN MD Prostatectomy DR GRISELDA WASHINGTON MD Total knee replacement DR SANJUANA CISNEROS Comment on above: PARTIAL, LEFT Total replacement of hip DR GRISELDA LYNCH MD Comment on above: LEFT RIGHT Plan of Treatment Date Care Activity Detail Author Start: 03-01-2025 End: 03-01-2025 ambulatory 03/01/2025 11:30 AM EDT Visit (SP) Office Hematology/Oncology [address] [place] [address] Phillip Barnett MD [address], [place] [id number] 3MO OV/LABS 02/26* Hematology/Oncology Comment on above: 3MO OV/LABS 02/26* Start: 02-26-2025 End: 02-26-2025 ambulatory 02/26/2025 1:15 PM EDT Results Only [facility] [address] [place] [address] PSA [facility] Comment on above: PSA Start: 01-14-2025 Influenza vaccination [facility] Start: 11-27-2024 End: 11-27-2024 ambulatory 11/27/2024 11:00 AM EDT Visit (SP) Office Hematology/Oncology [address] [place] [address] Phillip Barnett MD [address], [place] [id number] JUNIOR DATA ANALYST/TRANSFER CARE/SELF REFERRING*This date and time per patient Hematology/Oncology Comment on above: JUNIOR DATA ANALYST/TRANSFER CARE/MANPREET F REFERRING*This date and time per patient Start: 11-04-2024 [facility] Start: 09-01-2024 Hepatitis B surface antibody level LDL Cholesterol [facility] Start: 08-21-2024 End: 08-21-2024 ambulatory 08/21/2024 12:30 PM EDT Results Only [facility] [address] [place] [id number] [facility] Start: 08-16-2024 End: 11-15-2024 Prostate specific Ag [Mass/volume] in Serum or Plasma PROSTATE-SPECIFIC ANTIGEN DIAGNOSTIC Lab Routine Prostate CA (HCC) Expected: 08/16/2024 (Approximate), Expires: 11/15/2024 [facility] Comment on above: Expected: 08/16/2024 (Approximate), Expires: 11/15/2024 Start: 08-16-2024 End: 11-15-2024 Testosterone [Mass/volume] in Serum or Plasma TESTOSTERONE, TOTAL BY IMMUNOASSAY (ADULT MALES, OR INDIVIDUALS ON TESTOSTERONE THERAPY) Lab Routine Prostate CA (HCC) Expected: 08/16/2024 (Approximate), Expires: 11/15/2024 Work Phone: Comment on above: Expected: 08/16/2024 (Approximate), Expires: 11/15/2024 Start: 05-24-2024 Annual PCP Team It Application Support Analyst serina Disease Visit Annual PCP Team Chronic Disease Visit [facility] Start: 05-24-2024 BP Controlled (<130/80) BP Controlle d (<130/80) [facility] Start: 05-24-2024 Covid-19 Vaccine () Covid-19 Vaccine () [facility] Comment on above: Postponed from 01/14 (Declined at this time) Start: 05-24-2024 RSV Vaccine (1 - 1-d ose 60+ series) RSV Vaccine (1 - 1-dose 60+ series) [facility] Comment on above: Postponed from 06/25 (Declined at this time) Start: 05-19-2024 Hepatitis B surface antibody level LDL Cholesterol [facility] Start: 05-16-2024 Advance Directive Discussion Advance Directive Discussion [facility] Start: 05-16-2024 Medicare Advantage A nnual Wellness Visit Medicare Advantage Annual Wellness Visit [facility] Start: 05-04-2024 Patient discharge [facility] Start: 04-29-2024 Hemoglobin A1c measurement HbA1C [facility] Start: 01-15-2024 Covid-19 Vaccine ( season) Covid-19 Vaccine ( season) [facility] Start: 01-15-2024 Influenza vaccination C [facility] Start: 11-24-2023 End: 11-24-2023 Patient encounter procedure 11/24/2023 11:20 AM EDT Office Visit Family [facility] [address] [place] [id number] Wes Rider MD [address] [place] [id number] 6 mo f/u Family Medicine [facility] Comment on above: 6 mo f/u Start: 11-17-2023 Hemoglobin A1c measurement HbA1C [facility] Start: 08-09-2023 End: 10-09-2023 Prostate specific Ag [Mass/volume] in Serum or Plasma PSA/PROSTSPECAG DIAG Lab Routine Prostate CA (HCC) Expected: 08/09/2023 (Approximate), Expires: 10/09/2023 Work Phone: Comment on above: Expected: 08/09/2023 (Approximate), Expires: 10/09/2023 Start: 08-09-2023 End: 10-09-2023 Testosterone [Mass/volume] in Serum or Plasma TESTOSTERONE TOTAL Lab Routine Prostate CA (HCC) Expected: 08/09/2023 (Approximate), Expires: 10/09/2023 Work Phone: Comment on above: Expected: 08/09/2023 (Approximate), Expires: 10/09/2023 Start: 07-27-2023 Urine microalbumin profile [facility] Start: 06-07-2023 BP CONTROLLED (<130/80) BP CONTROLLE D (<130/80) [facility] Start: 05-20-2023 ANNUAL PCP TEAM MASH FILTER PRESS OPERATOR SERINA DISEASE VISIT ANNUAL PCP TEAM CHRONIC DISEASE VISIT [facility] Start: 05-16-2023 Advance Directive Discussion Advance Directive Discussion [facility] Start: 05-16-2023 Behavioral Health Screening Behavioral Health Screening [facility] Start: 05-14-2023 Hepatitis B surface antibody level LDL CHOLESTEROL [facility] Start: 04-04-2023 [facility] Start: 03-09-2023 BP CONTROLLED (<130/80) BP CONTROLLE D (<130/80) [facility] Start: 01-14-2023 Covid-19 Vaccine () Covid-19 Vaccine () [facility] Start: 01-14-2023 Influenza vaccination C [facility] Start: 11-12-2022 Hemoglobin A1c/Hemoglobin.total in Blood HBA1C [facility] Start: 09-29-2022 BP CONTROLLED (<130/80) BP CONTROLLE D (<130/80) [facility] Start: 09-28-2022 Hepatitis B surface antibody level LDL CHOLESTEROL [facility] Start: 09-08-2022 BP CONTROLLED (<130/80) BP CONTROLLE D (<130/80) [facility] Start: 08-31-2022 Hepatitis B surface antibody level LDL CHOLESTEROL [facility] Start: 08-26-2022 BP CONTROLLED (<130/80) BP CONTROLLE D (<130/80) [facility] Start: 08-26-2022 Hemoglobin A1c/Hemoglobin.total in Blood HBA1C [facility] Start: 08-24-2022 End: 10-24-2022 ALBUMIN/CREAT RATIO RND UR ALBUMIN/CREAT RATIO RND UR Lab Routine Controlled type 2 diabetes mellitus without complication, without long-term current use of insulin (HCC) Expected: 08/24/2022, Expires: 10/24/2022 Work Phone: Comment on above: Expected: 08/24/2022 , Expires: 10/24/2022 Start: 08-17-2022 End: 10-17-2022 Prostate specific Ag [Mass/volume] in Serum or Plasma PSA/PROSTSPECAG DIAG Lab Routine Prostate cancer (HCC) Expected: 08/17/2022 (Approximate), Expires: 10/17/2022 Work Phone: Comment on above: Expected: 08/17/2022 (Approximate), Expires: 10/17/2022 Start: 08-17-2022 End: 10-17-2022 Testosterone [Mass/volume] in Serum or Plasma TESTOSTERONE TOTAL Lab Routine Prostate cancer (HCC) Expected: 08/17/2022 (Approximate), Expires: 10/17/2022 Work Phone: Comment on above: Expected: 08/17/2022 (Approximate), Expires: 10/17/2022 Start: 07-13-2022 Covid-19 Vaccine (5 - Pfizer series) Covid-19 Vaccine (5 - Pfizer series) [facility] Start: 06-27-2022 Hemoglobin A1c/Hemoglobin.total in Blood HBA1C [facility] Start: 06-08-2022 End: 08-08-2022 Prostate specific Ag [Mass/volume] in Serum or Plasma PSA/PROSTSPECAG DIAG Lab Routine Prostate cancer (HCC) Expected: 06/08/2022, Expires: 08/08/2022 Work Phone: Comment on above: Expected: 06/08/2022 , Expires: 08/08/2022 Start: 05-16-2022 ADVANCE DIRECTIVE DISCUSSION ADVANCE DIRECTIVE DISCUSSION [facility] Start: 05-16-2022 DEPRESSION ASSESSMENT DEPRESSION ASS ESSMENT [facility] Start: 03-31-2022 ANNUAL PCP TEAM MASH FILTER PRESS OPERATOR SERINA DISEASE VISIT ANNUAL PCP TEAM CHRONIC DISEASE VISIT [facility] Start: 03-31-2022 BP CONTROLLED (<130/80) BP CONTROLLE D (<130/80) [facility] Start: 03-31-2022 Hemoglobin A1c/Hemoglobin.total in Blood HBA1C [facility] [facility] Start: 03-30-2022 Hepatitis B surface antibody level LDL CHOLESTEROL [facility] Start: 02-24-2022 End: 04-26-2022 Comprehensive metabolic 2000 panel - Serum or Plasma COMP METABOLIC PANEL Lab Routine Prostate CA (HCC) Expected: 02/24/2022 (Approximate), Expires: 04/26/2022 Work Phone: Comment on above: Expected: 02/24/2022 (Approximate), Expires: 04/26/2022 Start: 02-24-2022 End: 04-26-2022 Prostate specific Ag [Mass/volume] in Serum or Plasma PSA/PROSTSPECAG DIAG Lab Routine Prostate CA (HCC) Expected: 02/24/2022 (Approximate), Expires: 04/26/2022 Work Phone: Comment on above: Expected: 02/24/2022 (Approximate), Expires: 04/26/2022 Start: 02-24-2022 End: 04-26-2022 Testosterone [Mass/volume] in Serum or Plasma TESTOSTERONE TOTAL Lab Routine Prostate CA (HCC) Expected: 02/24/2022 (Approximate), Expires: 04/26/2022 Work Phone: Comment on above: Expected: 02/24/2022 (Approximate), Expires: 04/26/2022 Start: 01-14-2022 Influenza vaccination C [facility] Start: 12-29-2021 End: 02-28-2022 Hemoglobin A1c in Blood HGB A1C Lab Routine Controlled type 2 diabetes mellitus without complication, without long-term current use of insulin (HCC) Expected: 12/29/2021, Expires: 02/28/2022 Work Phone: Comment on above: Expected: 12/29/2021 , Expires: 02/28/2022 Start: 12-29-2021 End: 02-28-2022 Prostate specific Ag [Mass/volume] in Serum or Plasma PSA/PROSTSPECAG DIAG Lab Routine Prostate cancer (HCC) Expected: 12/29/2021 (Approximate), Expires: 02/28/2022 Work Phone: Comment on above: Expected: 12/29/2021 (Approximate), Expires: 02/28/2022 Start: 12-12-2021 Patient referral [facility] Work Phone: Start: 11-18-2021 End: 01-18-2022 aPTT in Platelet poor plasma by Coagulation assay ACTIVATED PTT Lab Routine Malignant neoplasm of prostate (HCC) Expected: 11/18/2021 (Approximate), Expires: 01/18/2022 Work Phone: Comment on above: Expected: 11/18/2021 (Approximate), Expires: 01/18/2022 Start: 11-18-2021 End: 01-18-2022 CBC panel - Blood by Automated count CBC Lab Routine Malignant neoplasm of prostate (HCC) Expected: 11/18/2021 (Approximate), Expires: 01/18/2022 Work Phone: Comment on above: Expected: 11/18/2021 (Approximate), Expires: 01/18/2022 Start: 11-18-2021 End: 01-18-2022 Comprehensive metabolic 2000 panel - Serum or Plasma COMP METABOLIC PANEL Lab Routine Malignant neoplasm of prostate (HCC) Expected: 11/18/2021 (Approximate), Expires: 01/18/2022 Work Phone: Comment on above: Expected: 11/18/2021 (Approximate), Expires: 01/18/2022 Start: 11-18-2021 End: 01-18-2022 CONFIRM BLOOD TYPE CONFIRM BLOOD TYPE Blood Bank Routine Malignant neoplasm of prostate (HCC) Expected: 11/18/2021 (Approximate), Expires: 01/18/2022 Work Phone: Comment on above: Expected: 11/18/2021 (Approximate), Expires: 01/18/2022 Start: 11-18-2021 End: 01-18-2022 PT panel - Platelet poor plasma by Coagulation assay PROTHROMBIN TIME/PT Lab Routine Malignant neoplasm of prostate (HCC) Expected: 11/18/2021 (Approximate), Expires: 01/18/2022 Work Phone: Comment on above: Expected: 11/18/2021 (Approximate), Expires: 01/18/2022 Start: 11-18-2021 End: 09-28-2022 SARS-CoV-2 (COVID-19) RNA [Presence] in Respiratory specimen by ANNY with probe detection PRE-PROCEDURE & PRE-OPERATIVE COVID Microbiology Routine Malignant neoplasm of prostate (HCC) Expected: 11/18/2021 (Approximate), Expires: 09/28/2022 Work Phone: Comment on above: Expected: 11/18/2021 (Approximate), Expires: 09/28/2022 Start: 11-18-2021 End: 01-18-2022 TYPE AND SCREEN,30 DAY TYPE AND SCREEN,30 DAY Blood Bank Routine Malignant neoplasm of prostate (HCC) Expected: 11/18/2021 (Approximate), Expires: 01/18/2022 Work Phone: Comment on above: Expected: 11/18/2021 (Approximate), Expires: 01/18/2022 Start: 09-27-2021 Hemoglobin A1c/Hemoglobin.total in Blood HBA1C [facility] Start: 09-18-2021 Hepatitis B screening URINE ALBUMIN:CREATININE RATIO [facility] Start: 09-16-2021 Adult depression scr eening assessment DEPRESSION SCREENING [facility] Start: 09-14-2021 End: 11-14-2021 aPTT in Platelet poor plasma by Coagulation assay ACTIVATED PTT Lab Routine Coronary artery disease involving [place] coronary artery of [place] heart with angina pectoris (HCC) Atrial fibrillation, unspecified type (HCC) Prostate cancer (HCC) Hyperlipidemia, unspecified hyperlipidemia type Primary hypertension Pre-operative cardiovascular examination Expected: 09/14/2021 (Approximate), Expires: 11/14/2021 Work Phone: Comment on above: Expected: 09/14/2021 (Approximate), Expires: 11/14/2021 Start: 09-14-2021 End: 11-14-2021 CONFIRM BLOOD TYPE CONFIRM BLOOD TYPE Blood Bank Routine Coronary artery disease involving [place] coronary artery of [place] heart with angina pectoris (HCC) Atrial fibrillation, unspecified type (HCC) Prostate cancer (HCC) Hyperlipidemia, unspecified hyperlipidemia type Primary hypertension Pre-operative cardiovascular examination Expected: 09/14/2021, Expires: 11/14/2021 Work Phone: Comment on above: Expected: 09/14/2021 , Expires: 11/14/2021 Start: 09-14-2021 End: 11-14-2021 Lactate dehydrogenase [Enzymatic activity/volume] in Serum or Plasma LD LACTATE DEHYDRO Lab Routine Coronary artery disease involving [place] coronary artery of [place] heart with angina pectoris (HCC) Atrial fibrillation, unspecified type (HCC) Prostate cancer (HCC) Hyperlipidemia, unspecified hyperlipidemia type Primary hypertension Pre-operative cardiovascular examination Expected: 09/14/2021, Expires: 11/14/2021 Work Phone: Comment on above: Expected: 09/14/2021 , Expires: 11/14/2021 Start: 09-14-2021 End: 11-14-2021 PT panel - Platelet poor plasma by Coagulation assay PROTHROMBIN TIME/PT Lab Routine Coronary artery disease involving [place] coronary artery of [place] heart with angina pectoris (HCC) Atrial fibrillation, unspecified type (HCC) Prostate cancer (HCC) Hyperlipidemia, unspecified hyperlipidemia type Primary hypertension Pre-operative cardiovascular examination Expected: 09/14/2021 (Approximate), Expires: 11/14/2021 Work Phone: Comment on above: Expected: 09/14/2021 (Approximate), Expires: 11/14/2021 Start: 09-14-2021 End: 09-14-2022 SARS-CoV-2 (COVID-19) RNA [Presence] in Respiratory specimen by ANNY with probe detection PRE-PROCEDURE & PRE-OPERATIVE COVID Microbiology Routine Coronary artery disease involving [place] coronary artery of [place] heart with angina pectoris (HCC) Atrial fibrillation, unspecified type (HCC) Prostate cancer (HCC) Hyperlipidemia, unspecified hyperlipidemia type Primary hypertension Pre-operative cardiovascular examination Expected: 09/14/2021, Expires: 09/14/2022 Work Phone: Comment on above: Expected: 09/14/2021 , Expires: 09/14/2022 Start: 09-14-2021 End: 11-14-2021 TYPE AND SCREEN,30 DAY TYPE AND SCREEN,30 DAY Blood Bank Routine Coronary artery disease involving [place] coronary artery of [place] heart with angina pectoris (HCC) Atrial fibrillation, unspecified type (HCC) Prostate cancer (HCC) Hyperlipidemia, unspecified hyperlipidemia type Primary hypertension Pre-operative cardiovascular examination Expected: 09/14/2021, Expires: 11/14/2021 Work Phone: Comment on above: Expected: 09/14/2021 , Expires: 11/14/2021 Start: 09-14-2021 End: 11-14-2021 URINALYSIS, DIPSTICK ONLY URINALYSIS, DIPSTICK ONLY Lab Routine Coronary artery disease involving [place] coronary artery of [place] heart with angina pectoris (HCC) Atrial fibrillation, unspecified type (HCC) Prostate cancer (HCC) Hyperlipidemia, unspecified hyperlipidemia type Primary hypertension Pre-operative cardiovascular examination Expected: 09/14/2021, Expires: 11/14/2021 Work Phone: Comment on above: Expected: 09/14/2021 , Expires: 11/14/2021 Start: 08-25-2021 End: 10-25-2021 CBC panel - Blood by Automated count CBC Lab Routine Essential hypertension, benign Coronary artery disease involving [place] heart without angina pectoris, unspecified vessel or lesion type Mixed hyperlipidemia Controlled type 2 diabetes mellitus without complication, without long-term current use of insulin (HCC) Expected: 08/25/2021, Expires: 10/25/2021 Work Phone: Comment on above: Expected: 08/25/2021 , Expires: 10/25/2021 Start: 08-25-2021 End: 10-25-2021 Comprehensive metabolic 2000 panel - Serum or Plasma COMP METABOLIC PANEL Lab Routine Essential hypertension, benign Coronary artery disease involving [place] heart without angina pectoris, unspecified vessel or lesion type Mixed hyperlipidemia Controlled type 2 diabetes mellitus without complication, without long-term current use of insulin (HCC) Expected: 08/25/2021, Expires: 10/25/2021 Work Phone: Comment on above: Expected: 08/25/2021 , Expires: 10/25/2021 Start: 08-25-2021 End: 10-25-2021 LIPID PANEL BASIC LIPID PANEL BASIC Lab Routine Essential hypertension, benign Coronary artery disease involving [place] heart without angina pectoris, unspecified vessel or lesion type Mixed hyperlipidemia Controlled type 2 diabetes mellitus without complication, without long-term current use of insulin (HCC) Expected: 08/25/2021, Expires: 10/25/2021 Work Phone: Comment on above: Expected: 08/25/2021 , Expires: 10/25/2021 Start: 08-25-2021 End: 08-25-2022 SARS-CoV-2 (COVID-19) RNA [Presence] in Respiratory specimen by ANNY with probe detection PRE-PROCEDURE & PRE-OPERATIVE COVID Microbiology Routine Essential hypertension, benign Coronary artery disease involving [place] heart without angina pectoris, unspecified vessel or lesion type Mixed hyperlipidemia Controlled type 2 diabetes mellitus without complication, without long-term current use of insulin (HCC) Expected: 08/25/2021, Expires: 08/25/2022 Work Phone: Comment on above: Expected: 08/25/2021 , Expires: 08/25/2022 Start: 08-04-2021 COVID-19 VACCINE (4 - Booster for Pfizer series) COVID-19 VACCINE (4 - Booster for Pfizer series) [facility] Start: 06-01-2021 COVID-19 VACCINE (4 - Booster for Pfizer series) COVID-19 VACCINE (4 - Booster for Pfizer series) [facility] Start: 05-16-2021 ADVANCE DIRECTIVE DISCUSSION ADVANCE DIRECTIVE DISCUSSION [facility] Start: 05-16-2021 DEPRESSION ASSESSMENT DEPRESSION ASS ESSMENT [facility] Start: 05-01-2021 Glaucoma screening Dilated Retinal E xam [facility] Start: 05-01-2021 Hepatitis C antibody , confirmatory test DILATED RETINAL EXAM [facility] Start: 2019 RSV Vaccine (1 - 1-d ose 75+ series) RSV Vaccine (1 - 1-dose 75+ series) [facility] Start: 05-15-2019 PNEUMOCOCCAL: 65+ (3 - PPSV23 or PCV20) PNEUMOCOCCAL: 65+ (3 - PPSV23 or PCV20) [facility] Start: 2004 Hepatitis B Vaccine (1 of 3 - Risk 3-dose series) Hepatitis B Vaccine (1 of 3 - Risk 3-dose series) [facility] Start: 2004 RSV Vaccine (1 - 1-d ose 60+ series) RSV Vaccine (1 - 1-dose 60+ series) [facility] Start: 1994 SHINGRIX VACCINE (1 of 2) MERCADO GRIX VACCINE (1 of 2) [facility] Start: 1963 SHINGRIX VACCINE (1 of 2) MERCADO GRIX VACCINE (1 of 2) [facility] Start: 1962 Anxiety Screening Anxiety Screening [facility] Start: 1962 BP CONTROLLED (<130/80) BP CONTROLLE D (<130/80) [facility] Start: 1962 Depression Screening Depression Scre ening [facility] Start: 1954 3 comp foot exam completed DIABETIC FOOT EXAM [facility] Start: 1954 Diabetic foot examination Diabetic F oot Exam [facility] CT SIM PLANNING RADI ATION ONCOLOGY CT SIM PLANNING RADIATION ONCOLOGY Radiology Routine Prostate cancer (HCC) Ordered: 08/03/2022 Work Phone: Comment on above: Ordered: 08/03/2022 End: 08-25-2022 ECG COMPLETE ECG COMPLETE ECG Routine Essential hypertension, benign Coronary artery disease involving [place] heart without angina pectoris, unspecified vessel or lesion type Mixed hyperlipidemia Controlled type 2 diabetes mellitus without complication, without long-term current use of insulin (HCC) 1 Occurrences starting 08/25/2021 until 08/25/2022 Work Phone: Comment on above: 1 Occurrences starti ng 08/25/2021 until 08/25/2022 End: 08-28-2022 ECG COMPLETE ECG COMPLETE ECG Routine Essential hypertension, benign 1 Occurrences starting 08/28/2021 until 08/28/2022 Work Phone: Comment on above: 1 Occurrences starti ng 08/28/2021 until 08/28/2022 End: 11-11-2022 ECG COMPLETE ECG COMPLETE ECG Routine Sinus bradycardia 1 Occurrences starting 11/11/2021 until 11/11/2022 Work Phone: Comment on above: 1 Occurrences starti ng 11/11/2021 until 11/11/2022 End: 09-14-2022 Echocardiography ECHO Cardiology Routine Coronary artery disease involving [place] coronary artery of [place] heart with angina pectoris (HCC) Atrial fibrillation, unspecified type (HCC) Prostate cancer (HCC) Hyperlipidemia, unspecified hyperlipidemia type Primary hypertension Pre-operative cardiovascular examination 1 Occurrences starting 09/14/2021 until 09/14/2022 Work Phone: Comment on above: 1 Occurrences starti ng 09/14/2021 until 09/14/2022 End: 10-14-2022 LUNG DIFFUSION CAPACITY (DLCO) LUNG DIFFUSION CAPACITY (DLCO) PFT Routine Coronary artery disease involving [place] coronary artery of [place] heart with angina pectoris (HCC) Atrial fibrillation, unspecified type (HCC) Prostate cancer (HCC) Hyperlipidemia, unspecified hyperlipidemia type Primary hypertension Pre-operative cardiovascular examination 1 Occurrences starting 09/14/2021 until 10/14/2022 Work Phone: Comment on above: 1 Occurrences starti ng 09/14/2021 until 10/14/2022 Patient Education [facility] Work Phone: Patient referral [facility] Work Phone: End: 06-24-2025 PET+CT Guidance for localization of tumor of Whole body-- W 18F-FDG IV NM PET/CT PROSTATE WHOLE BODY IMAGING Radiology Routine Prostate cancer ([facility]) 1 Occurrences starting 05/25/2024 until 06/24/2025 Work Phone: Comment on above: 1 Occurrences starti ng 05/25/2024 until 06/24/2025 PET+CT Guidance for localization of tumor of Whole body-- W 18F-FDG IV NM PET/CT PROSTATE WHOLE BODY IMAGING Radiology Routine Prostate cancer ([facility]) 06/18/2024 3:34 PM EST Work Phone: POST VOID RESIDUAL POST VOID RES IDUAL Procedures Routine Urinary incontinence, unspecified type Ordered: 03/09/2022 Work Phone: Comment on above: Ordered: 03/09/2022 End: 11-27-2025 Prostate specific Ag [Mass/volume] in Serum or Plasma PROSTATE-SPECIFIC ANTIGEN DIAGNOSTIC Lab Routine Prostate cancer ([facility]) Every 3 months for 4 Occurrences starting 11/27/2024 until 11/27/2025 Work Phone: Comment on above: Every 3 months for 4 Occurrences starting 11/27/2024 until 11/27/2025 PT PLAN OF CARE CERTIFICATION PT PLAN OF CARE CERTIFICATION Procedures Routine Prostate cancer ([facility]) RICARDO (stress urinary incontinence), male Muscle weakness Ordered: 06/04/2022 Work Phone: Comment on above: Ordered: 06/04/2022 SARS-CoV-2 (COVID-19 ) RNA [Presence] in Respiratory specimen by ANNY with probe detection SELF CHECK COVID Microbiology Routine Abnormal stress test Ordered: 08/26/2021 Work Phone: Comment on above: Ordered: 08/26/2021 End: 10-14-2022 SPIROMETRY BASELINE ONLY SPIROMETRY BASELINE ONLY PFT Routine Coronary artery disease involving [place] coronary artery of [place] heart with angina pectoris (HCC) Atrial fibrillation, unspecified type (HCC) Prostate cancer (HCC) Hyperlipidemia, unspecified hyperlipidemia type Primary hypertension Pre-operative cardiovascular examination 1 Occurrences starting 09/14/2021 until 10/14/2022 Work Phone: Comment on above: 1 Occurrences starti ng 09/14/2021 until 10/14/2022 SPIROMETRY BASELINE ONLY SPIROME TRY BASELINE ONLY PFT Routine Coronary artery disease involving [place] coronary artery of [place] heart with angina pectoris (HCC) Atrial fibrillation, unspecified type (HCC) Prostate cancer (HCC) Hyperlipidemia, unspecified hyperlipidemia type Primary hypertension Pre-operative cardiovascular examination 09/28/2021 1:19 PM EDT Work Phone: [facility] Lab Routine Pre-op testing 09/29/2021 8:51 AM EDT Work Phone: URINALYSIS, REFLEX MICROSCOPIC URINALYSIS, REFLEX MICROSCOPIC Lab Routine Screening for genitourinary condition Ordered: 11/24/2021 Work Phone: Comment on above: Ordered: 11/24/2021 [facility] Immunizations Immunization Date Immunization Notes Care Provider [facility] 04-28-2022 influenza (aIIV4) vaccine, age 65+ yr, quadrivalent, PF (FLUAD QUADRIVALENT) Wes Rider MD Work Phone: [facility] 04-28-2022 influenza virus vaccine, unspecified formulation Marie Beavers MD Work Phone: [facility] 07-08-2020 COVID-19 vaccine, ag e 12+ yr (PFIZER-BIONTECH - PURPLE TOP) Quentin Hampton MD Work Phone: [facility] 06-17-2020 COVID-19 vaccine, ag e 12+ yr (PFIZER-BIONTECH - PURPLE TOP) Quentin Hampton MD Work Phone: [facility] 05-15-2018 influenza, high dose seasonal, preservative-free Quentin Hampton MD Work Phone: [facility] 05-15-2018 pneumococcal conjuga te vaccine, 13 valent Quentin Hampton MD Work Phone: [facility] 07-26-2013 tetanus and diphther ia toxoids, adsorbed, preservative free, for adult use (2 Lf of tetanus toxoid and 2 Lf of diphtheria toxoid) Quentin Hampton MD Work Phone: [facility] Work Phone: 03-20-2013 pneumococcal polysaccharide vaccine, 23 valent Quentin Hampton MD Work Phone: [facility] Work Phone: 02-04-2003 diphtheria and tetan us toxoids, adsorbed for pediatric use Quentin Hampton MD Work Phone: [facility] Work Phone: Payers Date Payer Category Payer Private Health Insurance [id number] 2024 Self-pay [id number] 2017 Medicare (Managed Care) JUDY KRAMER HMO [id number] 2017 Unknown JUDY BERGER CR[employer] S [employer] BL[employer]RO [employer] O [id number] 2017-Present [id number] [place], [place] [id number] [facility] [id number] 2017 Unknown [id number] 2017 Unknown [id number] 2009 Medicare [id number] 1944 Unknown [id number] 1944 Unknown [id number] 1944 Unknown [id number] 1944 Unknown [id number] Unknown [id number] Unknown [id number] Unknown [id number] Unknown [id number] Unknown [id number] Unknown [id number] Unknown [id number] Unknown [id number] Unknown [id number] Unknown [id number] Social History Date Type Detail Facility Start: 08-06-2021 End: 08-26-2023 Tobacco smoking status [facility] Unknown if ever smoked [facility] Start: 09-19-[address] [facility] Start: 1945 Sex Assigned At Male [facility] Start: 09-14-2016 End: 08-26-2021 Tobacco smoking status NHIS Smokes tobacco daily [facility] End: 09-01-2021 History of tobacco use Cigar Smoker [facility] Start: 09-14-2016 End: 05-20-2022 Tobacco use and exposure Smokeless tobacco non-user [facility] Start: 06-09-2021 End: 11-27-2024 Alcohol intake Current drinker of alcohol (finding) [facility] Start: 12-03-2019 End: 05-20-2022 History SDOH Alcohol Frequency 5 [facility] Start: 12-03-2019 End: 05-20-2022 History SDOH Alcohol Std Drinks 1 [facility] Start: 12-03-2019 End: 05-20-2022 History SDOH Social Connections Get Together 2 [facility] Start: 12-03-2019 End: 05-20-2022 History SDOH Social Connections Protestant 3 [facility] Start: 12-03-2019 History SDOH Physical Activity MPS 9 [facility] Start: 12-03-2019 Education 17 [facility] Start: 07-06-2010 Tobacco Comment Pt. quit smoking cigarettes in 1970 -still smokes cigars [facility] Start: 07-31-2021 End: 03-09-2022 Exposure to SARS-CoV-2 (event) Not sure [facility] Start: 08-16-2021 End: 11-11-2021 Exposure to SARS-CoV-2 (event) Unable to assess [facility] Start: 08-26-2021 History SDOH Alcohol Comment 1 glass of wine with dinner [facility] Start: 08-26-2021 End: 05-20-2022 Tobacco Comment Pt. quit smoking cigarettes in 1970 - don't consciously inhale [facility] Start: 10-07-2021 End: 05-20-2022 History SDOH Social Connections Get Together 4 [facility] Start: 10-07-2021 History SDOH Physical Activity DPW 0 [facility] Start: 10-13-2021 End: 05-20-2022 Tobacco smoking status NHIS Ex-smoker [facility] End: 09-01-2021 History of tobacco use Current smoker [facility] Start: 11-17-2021 History SDOH Alcohol Comment Prior to surgery, was drinking 1 drink per day, since surgery has cut back. [facility] Start: 03-09-2022 End: 09-15-2022 Alcohol intake [facility] Start: 05-20-2022 History SDOH Social Connections Meetings 98 [facility] Start: 05-20-2022 End: 09-15-2022 Social connection and isolation panel [facility] Active Member of [facility] bs or Organizations Not on file [facility] Are you now , , , , never or living with a partner? [facility] How often to you hav e a drink containing alcohol? 4 or more times a week [facility] How many standard dr inks containing alcohol do you have on a typical day? 1 or 2 [facility] How often do you hav e 6 or more drinks on 1 occasion? Never [facility] Do you feel stress - tense, restless, nervous, or anxious, or unable to sleep at night because your mind is troubled all the time - these days [OSQ] Not at all [facility] (I/We) worried merry er (my/our) food would run out before (I/we) got money to buy more. Never true [facility] In the past 12 month s, was there a time when you were not able to pay the mortgage or rent on time? No [facility] Start: 11-29-2019 Gender identity Identifies as male gender (finding) [facility] Do you belong to any clubs or organizations such as mosque groups, unions, fraternal or athletic groups, or school groups? Yes [facility] Start: 05-03-2024 End: 11-03-2024 Tobacco smoking status NHIS Current Light tobacco smoker [facility] Start: 08-24-2024 End: 08-31-2024 Sex Male (finding) [facility] Tobacco Nicotine Use: CI GARS APPROX 2/WEEK. Type: Cigars. [facility] Tobacco smoking status [facility] Medical Equipment Procedure Code Equipment Code Equipment Origin al Text Equipment Identifier Dates Test blood sugar (s) 1 times daily. Dx: Type 2 DM - Controlled E11.9 Insulin: No Start: 09-23-2020 End: 09-14-2022 Comment on above: Test blood sugar(s) 1 times daily. Dx: Type 2 DM - Controlled E11.9 Insulin: No Clip Atriclip Gillinov-Eric 180d Long 35mm 25mm Internal Head - [id number] Start: 09-30-2021 [place] Thk1.65mm P tfe 50m79de Cardiovascular Patch Sterile - [id number] Start: 09-30-2021 Functional Status Date Assessment Result Facility 10-06-2021 Are you deaf, or do you have serious difficulty hearing No 10/06/2021 11:06 AM Luz Maria Beatty, NELLY [facility] 10-06-2021 Are you blind, or do you have serious difficulty seeing, even when wearing glasses No 10/06/2021 11:06 AM Luz Maria Beatty, RN [facility] 10-06-2021 Do you have serious difficulty walking or climbing stairs No 10/06/2021 11:06 AM Luz Maria Beatty, NELLY [facility] 10-06-2021 Do you have difficul ty dressing or bathing No 10/06/2021 11:06 AM Luz Maria Beatty, NELLY [facility] 10-06-2021 Because of a physica l, mental, or emotional condition, do you have difficulty doing errands alone such as visiting a physician's office or shopping No 10/06/2021 11:06 AM Luz Maria Beatty RN [facility] Mental Status Date Assessment Result Facility 10-06-2021 Because of a physica l, mental, or emotional condition, do you have serious difficulty concentrating, remembering, or making decisions No 10/06/2021 11:06 AM Luz Maria Beatty, NELLY [facility] Clinical Notes 10-18-2014 to 11-27-2024 Phillip Barnett MD - 11/27/2024 11:14 AM Gisele Quintero LPN - 11/27/2024 11:00 AM EDTTelephone Asha - Janeth Claros LPN - 11/20/2024 10:51 AM EDT Note Date & Type Note Facility 11-27-2024 Note HNO ID: [id number] Author: PHILLIP BARNETT MD Service: ? Author Type: Physician Type: Progress Notes Filed: 11/27/2024 12:00 Note Text: HISTORY OF PRESENT ILLNESS: Jermaine Begum is a 79 year old male transfer of care from [facility], history as follows: ONCOLOGIC HISTORY: Oncology History Prostate cancer (HCC) [...] a telephone visit. 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 More emergently, however, he needed a CABG, so started with ADT alone prior to definitive treatment with radical prostatectomy in November 2021, with [id number] disease. Given that he had gotten ADT prior to surgery, it was difficult to assess PSA kinetics in the setting of castrate levels of testosterone, so we wanted to monitor off ADT to see the evolution of his PSA. PSA ultimately did become detectable so he got 6600 cGy of salvage XRT in August-September 2022 along with a short course of leuprolide (30 mg). Dr Beavers followed, PSA drifting up. 25 PSMA PET scan negative. Review of PSA DT about 6 months CLINICAL IMPRESSION: Biochemical relapse prostate cancer, PSA low but rising, DT 6 months. RECOMMENDATION/PLAN: 1. Observation unless DT reaches 3 months, then consider CAB 2. Recheck PSA q 3 months. Written and verbal health teaching given to patient, patient verbalizes understanding and agrees with treatment plan. PAST MEDICAL HISTORY Diagnosis Date Arthritis Atrial flutter, unspecified type (HCC) CAD (coronary artery disease) Diabetes mellitus (HCC) Dilated aortic root Diverticulosis of colon (without mention of hemorrhage) Erectile dysfunction following radical prostatectomy Gout HLD (hyperlipidemia) HTN (hypertension) Malignant neoplasm of prostate (HCC) Prostate cancer (HCC) scheduled for surgery September 09, 2021 Spinal stenosis of lumbar region without neurogenic claudication 09/23/2021 lumbar canal stenosis at L4-L5 Urinary incontinence, unspecified type PAST SURGICAL HISTORY Procedure Laterality Date ARTHRP ACETBLR/PROX FEM PROSTC AGRFT/ALGRFT 05/16/1996 right ARTHRP ACETBLR/PROX FEM PROSTC AGRFT/ALGRFT Left 03/16/2016 Dr. Wilkerson CARDIOVERSION N/A 09/19/2020 [facility] PAST SURGICAL HISTORY OF 05/16/1954 had left arm set above the wrist, PAST SURGICAL HISTORY OF 05/16/2013 Left partial knee replacement PAST SURGICAL HISTORY OF CABG 09/2021 PAST SURGICAL HISTORY OF wisdom teeth extraction REMOVAL OF PROSTATE 11/19/2021 TONSILLECTOMY AND ADENOIDECTOMY FAMILY HISTORY Problem Relation Age of Onset [...] 09/01/2021 Years since quittin.2 Smokeless tobacco: Never Tobacco comments: Pt. quit smoking cigarettes in 1970 - don't consciously inhale Vaping Use Vaping status: Never Used Substance Use Topics Alcohol use: Yes Alcohol/week: 7.0 standard drinks of alcohol Types: 7 Shots of liquor per week Drug use: No ALLERGIES: ALLERGIES No Known Allergies CURRENT OUTPATIENT MEDICATIONS: spironolactone (ALDACTONE) 25 mg tablet Take 1 tablet by mouth once daily. benazepril 40 mg tablet Take 1 tablet by mouth once daily. atorvastatin (LIPITOR) 80 mg tablet Take 1 tablet by mouth daily at bedtime. aspirin, enteric coated (ASPIRIN, ENTERIC COATED) 81 mg EC tablet Take 81 mg by mouth once daily. REVIEW OF SYSTEMS: GENERAL: No fever, night sweats, weight los (more content not included)... [facility] 11-27-2024 History of Presen t illness Narrative HISTORY OF PRESENT ILLNESS: Jermaine Begum is a 79 year old male transfer of care from [facility] [place], history as follows: ONCOLOGIC HISTORY: Oncology History Prostate cancer (HCC) [...] a telephone visit. Initially was diagnosed with Ruth 4+3 disease in setting of PSA of 34.08, clinically very high risk with EPE+ on MRI. More emergently, however, he needed a CABG, so started with ADT alone prior to definitive treatment with radical prostatectomy in November 2021, with qpY2tX2 disease. Given that he had gotten ADT prior to surgery, it was difficult to assess PSA kinetics in the setting of castrate levels of testosterone, so we wanted to monitor off ADT to see the evolution of his PSA. PSA ultimately did become detectable so he got 6600 cGy of salvage XRT in August-September 2022 along with a short course of leuprolide (30 mg). Dr Beavers followed, PSA drifting up. 2-3-25 PSMA PET scan negative. Review of PSA DT about 6 months CLINICAL IMPRESSION: Biochemical relapse prostate cancer, PSA low but rising, DT 6 months. RECOMMENDATION/PLAN: 1. Observation unless DT reaches 3 months, then consider CAB 2. Recheck PSA q 3 months. Written and verbal health teaching given to patient, patient verbalizes understanding and agrees with treatment plan. PAST MEDICAL HISTORY Diagnosis Date Arthritis Atrial flutter, unspecified type (HCC) CAD (coronary artery disease) Diabetes mellitus (HCC) Dilated aortic root Diverticulosis of colon (without mention of hemorrhage) Erectile dysfunction following radical prostatectomy Gout HLD (hyperlipidemia) HTN (hypertension) Malignant neoplasm of prostate (HCC) Prostate cancer (HCC) scheduled for surgery September 09, 2021 Spinal stenosis of lumbar region without neurogenic claudication 09/23/2021 lumbar canal stenosis at L4-L5 Urinary incontinence, unspecified type PAST SURGICAL HISTORY Procedure Laterality Date ARTHRP ACETBLR/PROX FEM PROSTC AGRFT/ALGRFT 05/16/1996 right ARTHRP ACETBLR/PROX FEM PROSTC AGRFT/ALGRFT Left 03/16/2016 Dr. Wilkerson CARDIOVERSION N/A 09/19/2020 [facility] PAST SURGICAL HISTORY OF 05/16/1954 had left [...] 09/01/2021 Years since quittin.2 Smokeless tobacco: Never Tobacco comments: Pt. quit smoking cigarettes in 1969 - don't consciously inhale Vaping Use Vaping status: Never Used Substance Use Topics Alcohol use: Yes Alcohol/week: 7.0 standard drinks of alcohol Types: 7 Shots of liquor per week Drug use: No ALLERGIES: ALLERGIES No Known Allergies CURRENT OUTPATIENT MEDICATIONS: spironolactone (ALDACTONE) 25 mg tablet Take 1 tablet by mouth once daily. benazepril 40 mg tablet Take 1 tablet by mouth once daily. atorvastatin (LIPITOR) 80 mg tablet Take 1 tablet by mouth daily at bedtime. aspirin, enteric coated (ASPIRIN, ENTERIC COATED) 81 mg EC tablet Take 81 mg by mouth once daily. REVIEW OF SYSTEMS: GENERAL: No fever, night sweats, weight loss or malaise. All other reviewed and negative other than HPI. PHYSICAL EXAMINATION: VITAL SIGNS: BP 138/71 Pulse 62 Temp 96.9 Ht 5' 11 (1.80m) Wt 237 lb (107.5kg) SpO2 98% BMI 33.07 kg/(m^2). GENERAL APPEARANCE: Well appearing, in no acute distress, alert and oriented x3, well-hydrated, well nourished. I spent a total of 45 minutes on the date of the service which included preparing to see the patient, inuq-bh-[id number] patient care, completing clinical documentation, obtaining and/or reviewing separately obtained history, counseling and educating the patient/family/caregiver, ordering medications, tests, or procedures, independently interpreting results (not separately reported), and communicating results to the patient/family/caregiver. Electronically Signed: Phillip Barnett MD November 27, 2024 11:14 AM Transferring care closer to home DX: prostate cancer Gisele Winchester LPN documented in this encounter [facility] 11-27-2024 Note HNO ID: [id number] Author: GISELE WINCHESTER LPN Service: ? Author Type: LICENSED NURSE Type: Progress Notes Filed: 11/27/2024 12:00 Note Text: Transferring care closer to home DX: prostate cancer Gisele Winchester LPN [facility] 11-20-2024 Telephone encount er Note Patient advised to contact PCP's office to inquire about A1C order. Janeth Claros LPN [facility] 11-20-2024 Miscellaneous Notes Formattin g of this note might be different from the original. Patient advised to contact PCP's office to inquire about A1C order. Janeth Claros LPN Patient called asking if A1C can be added to labs for today. No need to call and advise patient. documented in this encounter [facility] 11-20-2024 Telephone encount er Note Patient called asking if A1C can be added to labs for today. No need to call and advise patient. [facility] Work Phone: 11-04-2024 Discharge summary [facility] 11-03-2024 Radiology Diagnostic study note [facility] Imaging Services [address] [place] [address] Abd Inc Decub and/or Erect MR#: [id number] Acct: [id number] Name: JERMAINE BEGUM Rep #: [id number] : 1945 M 79 From: Alison White MD PCP: Dr. Yecenia Agrawal MD Status: REG ER Study:Abd Inc Decub and/or Erect Date of Exam : 11/03/24 Exam# [id number] Ordering Dr: Sonu Rodriguez MD PROCEDURE: ABD INC DECUB AND/OR ERECT 11/03/2024 REASON FOR EXAM: CONSTIPATION TECHNIQUE: ABD INC DECUB AND/OR ERECT COMPARISON: L-spine radiographs 08/14/2023. FINDINGS: Bowel gas: Moderate constipation. No evidence of bowel obstruction. Bones: Prior bilateral hip replacements. Degenerative changes throughout the thoracolumbar spine. Other: Partially visualized median sternotomy and atrial appendage clip. RAD/Abd Inc Decub and/or Erect IMPRESSION: CONSTIPATION. Reading Location: [id number] CC: Dr. Sonu Rodriguez MD; Dr. 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 11-03-2024 Discharge summary Note Date/Time November 04, 2024 1:29am [facility] Medical Records Department [address] [place] [address] Emergency Department Summary 11/03/24 MR#: [id number] Acct: [id number] Name: JERMAINE BEGUM Rep #:[id number] : 1945 79 From: Sonu Rodriguez MD PCP: Dr. Yecenia Agrawal MD Status:REG ER Location: ED HPI HPI - GI History of Present Illness Chief Complaint: Constipation Narrative Narrative: 79-year-old male recent knee surgery, on narcotic pain medication presents with 2 to 3 days of constipation. He relates history that he had a bowel movement before leaving the hospital. He does take the powder daily because has had problems with his bowels. He has history of urinary incontinence from prostate surgery in the past. He states that he likes to have a daily bowel movement, but he feels that there is hard stool in his rectum. He tried 2 fleets enemas without success. He presents with constipation over the last few days. No fevers or chills, no nausea or vomiting. [facility] Medical History Prostate cancer Dilated aortic root Incomplete right bundle branch block Internal hemorrhoid Gout Type 2 diabetes mellitus Osteoarthritis Palmar fascial fibromatosis [dupuytren] Atherosclerosis of coronary artery of [place] heart without angina pectoris Essential hypertension History of diverticulosis Hyperlipidemia Home Medications ?Medication ?Instructions ?Recorded ?Last Taken ?Type aspirin 81 mg tablet,delayed 81 mg PO DAILY 10/14/2107/04/23 History release (Adult Aspirin Regimen) benazepril 40 mg tablet 40 mg PO DAILY #90 tabs 02/1405/03/24 Rx ferrous sulfate 137 mg (45 mg 137 mg PO QDAY 03/27/24 Unknown History iron) tablet,extended release mecobalamin (vitamin B12) 500 mcg 500 mcg PO DAILY 05/08 Unknown History chewable tablet spironolactone 25 mg tablet 25 mg PO QPM #90 tabs 09/13 09/07 Unknown Rx atorvastatin 80 mg tablet 80 mg PO QHS #90 tabs Unknown Rx Allergy/AdvReac Type Severity Reaction Status Date / Time No Known Allergies Allergy Verified 11/03/24 22:14 Family History Mother , Age 84 Diabetes Heart disease Father , Age 88 CAD (coronary artery disease) Sister Cancer breast Sister , Age 60 Cancer lymph nodes Surgical History History of radical prostatectomy (11/19/21) H/O coronary artery bypass surgery (09/30/21) History of left heart catheterization (09/03/21) History of cardioversion (09/2020) History of coronary artery stent placement (10/18/14) History of total left hip replacement (03/2016) History of total right hip replacement (1996) History of tonsillectomy and adenoidectomy (1947) History of left knee replacement (2013) History of varicocele (1979) Social History Smoking Status: Light Smoker (<10/day) how long ago did patient quit smoking: Quit smoking cigarettes in 1969, quit cigars 1 month ago alcohol intake: current details: occasional substance use type: does not use caffeine: Yes Type: coffee Number of servings: 2 ROS ROS ED ROS Narrative Review of systems positive for fecal impaction feeling, no fevers or chills, no nausea or vomiting. Positive constipation for the last few days. No exacerbating or alleviating factors. EXAM Physical Exam Narrative Exam Narrative: Afebrile. Vital signs noted. Nontoxic-appearing. Cardiovascular examination reveals regular rate and rhythm lungs are clear to auscultation bilaterally, abdomen is soft and nontender with positive bowel sounds, no guarding or rebound. Neurological examination nonfocal, nonlateralizing, standing with walker. Const Vital Signs: 11/03/24 22:14 11/04/24 00:14 Temperature 98.7 F Temperature Source Oral Pulse Rate 78 99 Respiratory Rate 12 16 Blood Pressure 179/76 H 166/70 H Blood Pressure Mean 110 102 Pulse Ox 99 95 Oxygen Delivery Method Room Air Room Air MDM MDM MDM Narrative Medical decision making narrative: Differential diagnosis includes but not limited to bowel obstruction versus fecal impaction versus slow transit constipation versus opiate bowel from narcotics with recent surgery and anesthesia. X-rays will be obtained the abdomen in 2 views and interpreted by myself to help rule out obstruction and to see the amount of fecal material throughout the colon/rectum. On my independent interpretation of the abdominal x-rays, there is a large amount of stool throughout the colon but no true fecal impaction noted in the rectum. Nonobstructive gas pattern. I reviewed the radiology report which confirms my independent interpretation. Chaperoned rectal examination/disimpaction was attempted. There is soft stool in the rectal vault. Patient was then administered a soapsuds enema. According to RN, he is satisfied with the result as he was able to have a bowel movement here in the emergency department. At this point in time I feel he can be discharged to follow-up. Return instructions to the emergency department were reviewed. Disposition is discharged home in stable condition. History & Record Review Discussion w/independent historian: Patient Radiography Diagnostic Testing: Clinical Impression(s) from Imaging Studies Abdomen X-Ray 11/03/24 23:00 IMPRESSION: CONSTIPATION. Reading Location: [id number] Discharge Plan Triage Chief Complaint: Constipation ED Provider: Sonu Rodriguez Dx/Rx/DC Orders Clinical Impression: Constipation, History of right knee surgery Instructions: ED Constipation (Adult) Prescriptions: No Action mecobalamin (vitamin B12) 500 mcg tablet,chewable 500 mcg PO DAILY ferrous sulfate 137 mg (45 mg iron) tablet extended release 137 mg PO QDAY aspirin [Adult Aspirin Regimen] 81 mg tablet,delayed release (DR/EC) 81 mg PO DAILY benazepril 40 mg tablet 40 mg PO DAILY Qty: 90 3RF spironolactone 25 mg tablet 25 mg PO QPM Qty: 90 4RF atorvastatin 80 mg tablet 80 mg PO QHS Qty: 90 3RF Primary Care Provider: Yecenia Agrawal Referrals: Yecneia Agrawal MD [Primary Care Provider] - 3-5 Days if not improving Activity Restrictions/Additional Instructions: Continue your bowel regime including kdrg-ssm-[id number] stool softeners and/or MiraLAX as needed. Print Language: Latvian Disposition Disposition: Home, Self Care What to do if you have Problems For any increased pain, shortness of breath, bleeding, nausea or vomiting, chestpain, or any unexpected problems, contact your Primary Care Provider. Call [facility] ([phone]) or report to the closest Emergency Room. Call 911 if necessary. 11/04/24 0129 <Electronically signed by Sonu Rodriguez MD> Cosigner Signature (if applicable): CC: Dr. Yecenia Agrawal MD ~ Signed [facility] Work Phone: [phone]) 308-245406-20-2025 Telephone encounter Note* Telephone Encounter - Kaitlin Romano - 11/02/2024 2:02 PM EDT Patient called back and scheduled ov 11/27/ Patient is requesting to do labs [address] Barnett allows. Kaitlin Romano [facility]06-20-2025 Miscellaneous Notes* Telephone Encounter - Kaitlin Romano - 11/02/2024 2:02 PM EDT Patient called back and scheduled ov 11/27/ Patient is requesting to do labs [address] Barnett allows. Kaitlin Romano * Telephone Encounter - Kaitlin Romano - 11/02/2024 1:20 PM EDT Lvm for patient to return the call to schedule with Dr. Barnett in November JUNIOR DATA ANALYST/TRANSFER CARE/SELF REFERRING* Kaitlin Romano * Telephone Encounter - Irene Friedman RN - 11/02/2024 11:08 AM EDT Ok to schedule JUNIOR DATA ANALYST appointment in November with Dr. Barnett. I will need to ask Dr. Barnett if he is willing to order prior to seeing him. Humera Friedman, RN * Telephone Encounter - Kaitlin Romano - 11/02/2024 9:52 AM EDT Patient called requesting to schedule with Dr. Barnett. He would like to transfer his care from his oncologist Dr. Beavers at [facility] since he lives in [place] and his spouse see's Dr. Barnett.He states he's do for labs and ov in November. Please review and advise. [facility] Telephone encounter Note * Telephone Encounter - Kaitlin Romano - 11/02/2024 1:20 PM EDT Lvm for patient to return the call to schedule with Dr. Barnett in November JUNIOR DATA ANALYST/TRANSFER CARE/SELF REFERRING* Kaitlin Romano [facility]-20-2025 Telephone encounter Note* Telephone Encounter - Irene Friedman RN - 11/02/2024 11:08 AM EDT Ok to schedule JUNIOR DATA ANALYST appointment in November with Dr. Barnett. I will need to ask Dr. Barnett if he is willing to order prior to seeing him. Humera Friedman, NELLY [facility] Work Phone: [phone] Telephone encounter Note* Telephone Encounter - Kaitlin Romano - 11/02/2024 9:52 AM EDT Patient called requesting to schedule with Dr. Barnett. He would like to transfer his care from his oncologist Dr. Beavers at [facility] since he lives in [place] and his spouse see's Dr. Barnett.He states he's do for labs and ov in November. Please review and advise. [facility]25 Note Discharge Instructions Thank you for allowing [facility] to assist you with your healthcare needs. The following is importantdischarge information regarding your hospital visit. Your Care Team [facility] Brown Team Your Diagnosis Status post total right knee replacement What to do next Follow Up Appointments Follow Up with [facility] Physical Therapy When:10/26/2024 03:00 PM EDT Where:[address] [place] [phone] Additional Information: This is your first physical therapy appointment. Follow- up as scheduled. Follow Up with GISSELL REYNOSO PA-C, Orthopedic When:11/06/2024 04:00 PM EDT Where:[address] [facility] [address] [facility], [place] [address] [phone] Additional Information: This is your post-op appointment. [...] and or supplements as they may interact withyour home medications. What How Much When Why Instructions Last Dose New acetaminophen (Tylenol Extra Strength 500 mg oraltablet) 2 tab(s) by mouth Three (3) times a day as needed for as needed for pain not to exceed 3000 mg/ day Pickup at [facility] [address] New docusate-senna (Senokot S 50 mg-8.6 mg oral tablet) 2 tab(s) by mouth Two (2) times a day Duration: 3 Days Take until first bowel movement, then as needed Pickup at [facility] New doxycycline (doxycycline hyclate 100 mg oral capsule) 1 cap by mouth Every 12 hours Duration: 14 Days Pickup at [facility] New famotidine (Pepcid 20 mg oral tablet) 1 tab(s) by mouth Once a day Pickup at [facility] [address] New meloxicam (meloxicam 7.5 mg oral tablet) 1 tab(s) by mouth Two (2) times a day Duration: 30 Days Do not take any other nonsteroidal anti-inflammatories while on meloxicam/ Mobic. Pickup at [facility] [address] New oxyCODONE (oxyCODONE 5 mg oral tablet ( IMMEDIATE release )) See instructions Status post total right knee replacement 1-2 tab(s) Oral q4h, As needed for as needed for pain Pickup at [facility] Changed aspirin 81 Milligram by mouth Twice [...] BY MOUTH IN THE EVENING Pharmacy Information [facility] [address]: [address] [place], [place] [id number] [phone] [facility]: [facility] [address] [place] [id number] [phone] Please take this list to your next doctor s visit. Bring all medications you take, including over the counter medications, herbals and other supplements with you to your doctor s visit. Patients and families are reminded to discard old lists and to update any records with all medication providers or retail pharmacies. Education Materials [facility] Post-operative Instructions PLEASE FOLLOW [facility] POST-OP INSTRUCTIONS GIVEN WATCH FOR SIGNS OF INFECTION: call the office ([phone]) if experencing any of the following: (Usually [...] on your follow up instructions. Form: 338A ([id number]) R: 09/19 Additional Information VACCINATE! IT SAVES LIVES! Members of the community who have not yet received the COVID-19 vaccine and would like to receive it can visit one of [facility] vaccine clinics. There are many vaccine clinic locations within the [facility] [facility]. For locations and available times, please visit https://[email or web address].[place].gov/. It is important to note that some COVID mobile vaccine clinics are held outdoors and may be canceled in rainy or stormy conditions. To learn more about pediatric vaccinations (ages 5-11), we invite you to visit the [facility] webpage. https://www.[employer].org/pages/4632-Fmszs-Mnruryuqize-Lbhahmlzjg-Fptix-Sll stions.htmlTo learn more about the COVID-19 vaccine, we invite you to visit the CDC website for a list of frequently asked questions.https://www.cdc.gov/coronavirus/2019-ncov/vaccines/faq.html [employer] Patient Portal Access Instructions: Stay connected with your healthcare team and access your personal medical information anytime with the [employer] Patient Portal. Please follow the directions below to create your [employer] account: 1.Access the email account you provided upon registration to the hospital/physician office.2.Look for an invitation email from [facility].3.Open the email and access the invitation link: AcceptInvitation to [employer].4.Fill in the required chacon to create your account. To access your account, visit [employer]. Click the blue button labeled Access Patient Portal and then log in with the username and password that you created in the steps above. You will be able to view your test results, lab results, a summary of your visits, upcoming appointments and more. There is also a convenient messaging option where you can send secure messages to your p rovider. In addition, you will have the ability to download any documents or summaries to your computer and/or send the information securely to a physician. Remember that your healthcare information is confidential, so carefully consider who you will allowto register on the [facility] Patient Portal for access to your information. You can also access the [facility] [facility] Patient Portal on the [facility] alfie. Simply click on Patient Portal and then log into your account. If you would like to receive a full copy of your medical records, please contact the [facility] Medical Records Department by calling [phone], Tuesday through Tuesday between 8 a.m. and 4:30 p.m. HOW TO SAFELY DISPOSE OF PRESCRIPTION MEDICATIONS Please use one of the following methods to safely dispose of your unused medications. 1.Use a drug disposal kit: the drug disposal pouch allows you to safely discard your old and unuseddrugs. Ask your nurse to give you one when you are discharged.2.Visit a local take-back location: Many local pharmacies and police departments have programs that collect old and unwanted prescriptiondrugs. Call your local pharmacy or go to http://uShip/5B5Ti7l to find one close to you.3.Make use of household items: Use cat litter or old coffee grounds to dispose medications if other options arenot available. Mix your drugs with these household products, seal them in an airtight container andthrow it into the garbage. Call [facility]: [phone] to be sure your drugs can be [...] COPY. Signatures Patient Education Materials 5 - [facility] Post-op Instruction 12/2016 (85072) Medication Leaflets My discharge plan and instructions have been reviewed and explained to me and ICHANCE DENNIS J understand my current condition and have read and understand these discharge instructions. I have received a written copy of the plan/instructions. If I have questions, I am aware that I should contact my doctor. 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 Form: 338A (91518) R: 09/19 Follow Up Care 08/27/2024 07:21:05 With:[facility] Address: [facility] [place] [address] [phone] When:10/26/2024 15:00:00 Comments:This is your first physical therapy appointment. Follow-up as scheduled. With:GISSELL REYNOSO PA-C, Orthopedic Address: [address] [facility], [place] [address]- [phone] When:11/06/2024 16:00:00 Comments:This is your post-op appointment. Follow-up as scheduled. [facility] 06-11-2025 Pastoral care Progress note Pastoral Care Note Entered On: 10/24/2024 9:12 EDT Performed On: 10/24/2024 9:10 EDT by Otto Fuentes Pastoral Care Type of Pastoral Visit : Initial visit Spiritual Care Visit Initiated by : Subsystems Engineer Spiritual Care Reason for Visit : General [...] people that work here; pt says that hehas family support and is connected to a mosque; pt denies any concerns but asks for a prayer for his recovery and therapy Pastoral Care Visit Length : 10 minute(s) Otto Fuentes - 10/24/2024 9:10 EDT Digitally Signed by Otto Fuentes on 10/24/2024 09:10 AM [facility]06-11-2025 Note Date of Service October 24, 2024 [...] in the past. Meloxicam will be added forpostoperative discharge. He is instructed not to take [...] currently 13.6, afebrile. Patient did receive decadron intra-operatively.No clinical signs of infection. 7. Encouraged incentive [...] today as long as patient remains medically stable,tolerates therapy, and pain is adequately controlled. Patient will follow-up per postoperative instructions. Patient would like his prescriptions E scribed to [facility] in [facility]. We discussed complications with narcotic E scribed to this facility. We will send all medications to [facility] exceptfor the oxycodone. This will be sent to [facility]. Patient will continue with his prebiotic that he uses for constipation. Patient has outpatient physical therapy established. Upon di scharge he will contact our office with any concerns or questions. Prior to discharge patient will have distal pin site dressing change. Discussed with nursing. I have reviewed the [place] Automated Rx Reporting System (OARRS) report for this patient for refill pattern and other prescriber involvement as part of the appropriate surveillance for the provision ofacute and chronic controlled medications. The report was requested and reviewed on the date of thisentry, and was considered in the prescribing process This dictation was created using voice recognition software. Phonetic and/or grammatical errors mayexist. Digitally Signed by OTTO HILL PA-C on 10/24/2024 08:42 AM [facility]06-11-2025 Note Date of Service October 24, 2024 [...] in the past. Meloxicam will be added forpostoperative discharge. He is instructed not to take [...] currently 13.6, afebrile. Patient did receive decadron intra-operatively.No clinical signs of infection. 7. Encouraged incentive [...] today as long as patient remains medically stable,tolerates therapy, and pain is adequately controlled. Patient will follow-up per postoperative instructions. Patient would like his prescriptions E scribed to [facility] in [facility]. We discussed complications with narcotic E scribed to this facility. We will send all medications to [facility] exceptfor the oxycodone. This will be sent to [facility]. Patient will continue with his prebiotic that he uses for constipation. Patient has outpatient physical therapy established. Upon di scharge he will contact our office with any concerns or questions. Prior to discharge patient will have distal pin site dressing change. Discussed with nursing. I have reviewed the [place] Automated Rx Reporting System (OARRS) report for this patient for refill pattern and other prescriber involvement as part of the appropriate surveillance for the provision ofacute and chronic controlled medications. The report was requested and reviewed on the date of thisentr, and was considered in the prescribing process This dictation was created using voice recognition software. Phonetic and/or grammatical errors mayexist. Digitally Signed by OTTO HILL PA-C on 10/24/2024 08:42 AM [facility]06-10-2025 Note* Exam Date Time Procedure Performing Provider Status 10/23/24 2:07 PM US Anesthesia Block Auth (Verified) [id number] ORIGINAL Images acquired, not reported on this accession number. [facility]06-10-2025 Note* Exam Date Time Procedure Performing Provider Status 10/23/24 1:25 PM XR Knee 1 or 2 Views Right DEVIN HERNANDEZ MD; Auth (Verified) [id number] ORIGINAL EXAMINATION: TWO XRAY VIEWS OF THE [...] 10/23/2024 1:32:59 PM Ordering Provider: GRISELDA LYNCH [facility]06-10-2025 Anesthesiology Consult note Patient: JERMAINE BEGUM Age: 79 years Sex: Male : 1945 Associated Diagnoses: None Author: BETI BUTTS APRN-SPLITTER HEAD Assessment Postanesthesia assessment Vitals: Vital signs from [...] by BETI BUTTS on 10/23/2024 01:05 PM [facility]06-10-2025 Anesthesiology Consult note Patient: JERMAINE BEGUM Age: 79 years Sex: Male : 1945 Associated Diagnoses: None Author: BETI BUTTS APRN-SPLITTER HEAD Preoperative Information Time of last food or [...] or recorded. Procedure history: Total hip replacement ([id number]). Comments: 08/29/2024 9:57 Tessa Hall RN RIGHT Total hip replacement ([id number]). Comments: 08/29/2024 9:57 Tessa Hall RN LEFT Total knee replacement ([id number]). Comments: 08/29/2024 9:58 EDT - Tessa Navas RN PARTIAL, LEFT Prostatectomy ([id number]). CABG x 3 - Coronary artery bypass grafts x 3 ([id number]). Social History: Social & Psychosocial Habits Alcohol [...] Signs (last 24 hrs) Last Charted Temp Xxqrnbbe52.9 DegC (OCT 23 10:03) Heart Rate Nncoovwuf05 bpm (OCT 23 12:25) HJF976 mmHg (OCT 23 12:25) DBP54 mmHg (OCT 23 12:25) Measurements from flowsheet : Measurements 10/23/2024 10:03 EDT Height 185.4 cm Admission Weight 102.3 kg Pratt Body Weight 79.88 kg Admission Body Mass [...] Device Type TRAY ARROYO CATH 16F W/BAG [id number] SN - TDC - Location BLADDER 10/23/2024 11:45 EDT SN - CAt - Case Attendee SN - CAt - Case Attendee SN - CAt - Role Performed Captain Waiter Relief 10/23/2024 11:45 EDT SN - CTm - Surgery Start 10/23/2024 11:45 10/23/2024 11:45 [...] Irl - Additive IRRIGATION CHG 0.05% IRRISEPT [id number]-484-[id number] SN - Irl - Additive IRRIGATION ANTIMICROBIAL 450ML SURGIPHOR [place] [id number] SN - IrI - Volume Out 450 [...] Attendee SN - CAt - Role Performed Shed Workers Supervisor 10/23/2024 11:08 EDT SN - PTCare - Anti-thromboembolism Mary Sequential Compression Device (SCD) 10/23/2024 11:08 EDT SN - Assess - LOC Alert, Awake SN - Assess - Orientation Oriented X 3 SN - Assess - Post-op Skin Integrity Intact/Dry 10/23/2024 11:07 EDT SN - DE - Route of Administration Irrigation SN - DE - Route of Administration Local SN - DE - Route of Administration Local SN - DE - By (Single) SN - DE - By (Single) SN - DE - By (Single) SN - DE - By (Single) SN - DE - By (Single) SN - DE - By (Single) 10/23/2024 11:07 EDT Time [...] Surgeon SN - CAt - Role Performed Captain Waiter 1 SN - CAt - Role Performed Scrub 1 SN - CAt - Role Performed Cutter Machine Tender 1 SN - CAt - Role Performed Physician Internet Database Specialist SN - CAt - Role Performed SPLITTER HEAD 10/23/2024 10:52 EDT SN - Preop - [...] 10:11 EDT Blood Glucose, Capillary 134 mg/dL SD 10/23/2024 10:03 EDT Height 185.4 cm Admission Weight 102.3 kg Pratt Body Weight 79.88 kg Admission Body Mass Index 29.76 m2 Temperature Temporal Artery 35.9 DegC Peripheral Pulse Rate 67 bpm Respiratory Rate 20 br/min Systolic Blood Pressure Non-Invasive 151 mmHg SD Diastolic Blood Pressure Non-Invasive 73 mmHg Primary [...] Person #1 We May Share LETICIA BEGUM [phone] Designated Person #1 Relationship Spouse Privacy Restrictions [...] after midnight, No makeup, No jewelry, Responsible Green Party, Aware of surgery location, Pre-op education done, 1 bottle CHG wash with instructionsgiven, Instructed to take ordered medications, Total Joint Replacement/Colorectal Book Given, SSI pr evention handout given, MRSA protocol education provided, Anesthesia block education provided SN - Preprocedure Comments Spoke with patient, Verbalizes/Nonverbally indicates understanding, Other: benzapril Barriers to Learning None evident Teaching Method Explanation Preferred Spoken Language Latvian Preferred Written Language Latvian Teaching Evaluation No further teaching needed Total [...] Other (Not Done) . Assessment and Plan [place] Society of Anesthesiologists (ASA) physical status classification: Class III. Anesthetic Preoperative Plan Anesthetic technique: Spinal. Postoperative pain management: adductor block. Informed consent: signed by patient. Digitally Signed by BETI BUTTS on 10/23/2024 12:35 PM [facility]02-18-2025 Telephone encounter Note* Telephone Encounter - Cordelia Hussein RN - 07/03/2024 1:32 PM EST lab orders placed for Testosterone and PSA to be checked early August Cordelia Hussein RN [facility]02-18-2025 Miscellaneous Notes* Telephone Encounter - Cordelia Hussein RN - 07/03/2024 1:32 PM EST lab orders placed for Testosterone and PSA to be checked early August Cordelia Hussein RN documented in this encounterUniversity Hospitals [facility]02-03-2025 History of Present illness Narrative* Marilyn Sheppard, [employer] - 06/18/2024 2:00 PM EST RADIOLOGY SERVICE [...] PATIENT PRESENTS WITH AN IMPLANTABLE OR ATTACHED GROUND DEFENCE OFFICER: No CREATININE: Creatinine Date Value Ref Range [...] 1357 PATIENT DISCHARGED TO: Ambulatory patient, left MD department area. Is this a therapy: No A Diagnostic radioactive procedure has taken place, with no further precautions necessary other than routine body substance precautions. More information regarding radiation safety can be found usingthis link: [email or web address] 20Diagnostic%20Nuclear%20Medicine%20Procedures.pdf SIGNATURE: Sherly Houston PATIENT NAME: Jermaine Begum DATE: June 18, 2024 TIME: 1:59 PM PAGER/CONTACT #: documented in this encounterUniversity Hospitals Samar[facility]02-03-2025 NoteHNO ID: [id number] Author: MARILYN SHEPPARD Nuclear Tech Service: Nuclear Medicine Author Type: Fabric Worker Leader Type: Progress Notes Filed: 06/18/2024 14:00 Note [...] PATIENT PRESENTS WITH AN IMPLANTABLE OR ATTACHED GROUND DEFENCE OFFICER: No CREATININE: Creatinine Date Value Ref Range [...] safety can be found using this link: [email or web address]%20Protection%20-% 20Diagnostic%20Nuclear%20Medicine%20Procedures.pdf SIGNATURE: Marilyn Sheppard [employer] PATIENT NAME: Jermaine Begum DATE: June 18, 2024 TIME: 1:59 PM PAGER/CONTACT #:[facility]01-24-2025 Telephone encounter Note* Telephone Encounter - Sara Lux - 06/08/2024 8:23 AM EST 06/08 lvm [facility]01-24-2025 Miscellaneous Notes* Telephone Encounter - Sara Lux - 06/08/2024 8:23 AM EST 06/08 lvm * Telephone Encounter - Sheryl Huerta RN - 06/07/2024 12:28 PM EST PSMA Comments for Risk Consulting Treasury Director: any site Will the patient need anesthesia: no Primary Insurance: Judy Diagnosis: Prostate cancer (HCC) [C61] Initial/Subsequent: Subsequent Pathology: 06-23-21 Adenocarcinoma of the prostate, Ratna score 3+4=7 (grade group 2), 95% Labs: [...] F-18 flotufolastat,18F flotufolastat [place] GA68 [facility] PET 92697/LOCAMETZ (Gallium GA-68 Gozetotide) (6 mCi) A9800 - [place] (Flotufolastat F18) (8mCi), A9608 - Region Auth#: [id number] Date Range: 06-07-24 to 09-04-24 for 1 dos MD NPI: MARIE BEAVERS [id number] Member ID: Judy [id number] Site/Contact: Yumisyl Oh/Ref#: Notes: system auto approved PET/Ct Prostate Route to or Requested Scheduling Pool: P PET PAINT SPRAYER SANDBLASTER , P [facility]ERICAL PO[facility]([place]), P [facility] * Telephone Encounter - Tiffanie Cheung RN - 06/07/2024 11:23 AM EST This form is used for MAIN CAMPUS APPOINTMENTS ONLY. Is this request for a Main [place] PET scan appointment? Yes: Pharmacy Cashier: Tiffanie Cheung RN Requesting Person (Last Name, First Name): Tiffanie Cheung RNCC Area Code + Phone/Pager: [facility] #[phone] Who do we call to schedule this [...] NO Send requests to P COORD REVIEW documented in this encounterUniversity Hospitals [facility]ar[facility]01-23-2025 Telephone encounter Note * Telephone Encounter - Sheryl Huerta RN - 06/07/2024 12:28 PM EST PSMA Comments for Risk Consulting Treasury Director: any site Will the patient need anesthesia: no Primary Insurance: Judy Diagnosis: Prostate cancer (HCC) [C61] Initial/Subsequent: Subsequent Pathology: 06-23-21 Adenocarcinoma of the prostate, Ratna score 3+4=7 (grade group 2), 95% Labs: [...] Scan Schedule as place of last (DOS) or Region Negative Scan Schedule at ANY PSMA site requested Isotope used: Region F-18 flotufolastat,18F flotufolastat [place] GA68 PSMA PET 72769/LOCAMETZ (Gallium GA-68 Gozetotide) (6 mCi) A9800 - [place] (Flotufolastat F18) (8mCi), A9608 - Region Auth#: [id number] Date Range: 06-07-24 to 09-04-24 for 1 dos NPI: MARIE BEAVERS [id number] Member ID: Bronson [id number] Site/Contact: Berto Case/Ref#: Notes: system auto approved PET/Ct Prostate Route to or Requested Scheduling Pool: P PET PAINT SPRAYER SANDBLASTER , P [facility] CLERICAL PO[facility]([place]), P [facility]01-23-2025 Telephone encounter Note* Telephone Encounter - Tiffanie Cheung RN - 06/07/2024 11:23 AM EST This form is used for MAIN CAMPUS APPOINTMENTS ONLY. Is this request for a Main [place] PET scan appointment? Yes: Pharmacy Cashier: Tiffanie Cheung RN Requesting Person (Last Name, First Name): Tiffanie Cheung [facility] Area Code + Phone/Pager: [facility] #[phone] Who do we call to schedule this [...] Send requests to P COORD REVIEW [facility]01-10-2025 NoteHNO ID: [id number] Author: MARIE BEAVERS MD Service: ? Author Type: Physician Type: Progress Notes Filed: 05/25/2024 21:34 Note Text: [facility] PROGRESS NOTE - TELEPHONE VISIT I have communicated my name and active licensure. The patient's identity and physical location were verified at the time of this visit. Either the patient or their legal premium representative has been informed of the risks [...] a telephone visit. Initially was diagnosed with Ruth 4+3 disease in setting of PSA of 34.08, clinically very high risk with EPE+ on MRI. More emergently, however, he needed a CABG, so started with ADT alone prior to definitive treatment with radical prostatectomy in November 2021, with prV3aZ8 disease. Given that he had gotten ADT [...] with recurrence 78 y.o. M with resected ruP8kJ4 prostate cancer here for follow-up s/p salvage XRT and short course ADT. Pt rising up to 0.22 ng/mL. Will evaluate with PSMA PET PLAN: 1) PSMA PET Total Time Spent: 7 min Marie Beavers MD Associate Staff, Genitourinary Medical Oncology May 25, 2024 9:33 [facility]01-10-2025 History of Present illness Narrative * Marie Beavers MD - 05/25/2024 9:29 PM EST [facility] PROGRESS NOTE - TELEPHONE VISIT I have communicated my name and active licensure. The patient's identity and physical location wereverified at the time of this visit. Either the patient or their legal premium representative has been informed of the risks [...] a telephone visit. Initially was diagnosed with Ruth 4+3 disease in setting of PSA of 34.08, clinically very high risk with EPE+ on MRI. More emergently, however, he needed a CABG, so started with ADT alone prior todefinitive treatment with radical prostatectomy in November 2021, with agP3aP8 disease. Given that he had gotten ADT [...] with recurrence 78 y.o. M with resected cbO4wJ0 prostate cancer here for follow-up s/p salvage XRT and short courseADT. Pt rising up to 0.22 ng/mL. Will evaluate with PSMA PET PLAN: 1) PSMA PET Total Time Spent: 7 min Marie Beavers MD Associate Staff, Genitourinary Medical Oncology May 25, 2024 9:33 PM documented in this encounterUniversity Hospitals [facility]ar[facility]12-19-2024 Evaluation note* Diagnosis Onset Date Resolution Status [...] stent placement October 18, 2014 resolved May 03 2 024 10:27am [facility] Work Phone: 1(561) 298-659312-13-2024 [facility] Medical Records Department [address] [place] [address] History Physical Exam 04/27/24 1446 MR#: [id number] Acct: [id number] Name: JERMAINE BEGUM Rep #: [id number] : 1945 78 From: Talia MCGEE PCP: Dr. Yecenia Agrawal MD Status:PRE [facility] Location: [facility] History and Physical Date of Admission: 05/03/24 [...] the same year. While he was in [place] in June 2021, he experienced some sharp [...] from atrial fibrillation. He was [facility] Elect[facility]iology, Dr. Shree Ochoa, on 11/12/2021 with [...] ischemia. Preserved ejection fraction. Reduced functional capacity [facility] Medical History Prostate cancer Dilated aortic root Incomplete right bundle branch block Internal hemorrhoid Gout Type 2 diabetes mellitus Osteoarthritis Palmar fascial fibromatosis [dupuytren] Atherosclerosis of coronary artery of [place] heart without angina pectoris Essential hypertension History [...] headache(s), dizziness or Nosebleed/e (more content not included)...[facility]06-20-2024 Telephone encounter Note* Telephone Encounter - Precious Deleon MA - 11/03/2023 12:32 PM EDT Pt requested to remove Dr. Rider as PCP and cancel his upcoming appt as scheduled. Precious Deleon MA [facility]06-20-2024 Miscellaneous Notes* Telephone Encounter - Precious Deleon MA - 11/03/2023 12:32 PM EDT Pt requested to remove Dr. Rider as PCP and cancel his upcoming appt as scheduled. Precious Deleon MA documented in this encounterUniversity Hospitals Samar[facility]06-06-2024 Telephone encounter Note * Telephone Encounter - Tyler Hurst RN - 10/20/2023 11:38 AM EDT Pt called in asking for Magnesium results. Let him know 10/02/21 he was 2.1 and 1.7 and 09/30/21 he was 1.9. [facility]06-06-2024 Miscellaneous Notes* Telephone Encounter - Tyler Hurst RN - 10/20/2023 11:38 AM EDT Pt called in asking for Magnesium results. Let him know 10/02/21 he was 2.1 and 1.7 and 09/30/21 he was 1.9. documented in this encounterUniversity Hospitals Samar[facility] Center04-03-2024 History of Present illness Narrative* Marie Beavers MD - 08/17/2023 10:11 AM EDT [facility] PROGRESS NOTE - TELEPHONE VISIT I have communicated my name and active licensure. The patient's identity and physical location wereverified at the time of this visit. Either the patient or their legal premium representative has been informed of the risks [...] a telephone visit. 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 More emergently, however, he needed a CABG, so started with ADT alone prior todefinitive treatment with radical prostatectomy in November 2021, with vtM4uC3 disease. Given that he had gotten ADT [...] with recurrence 78 y.o. M with resected [id number] prostate cancer here for follow-up s/p salvage XRT and short courseADT. Pt now with detectable PSA up to 0.03 ng/mL in setting of non-castrate testosterone. Will continue to monitor in six months PLAN: 1) follow-up with PSA and testosterone in 6 months Total Time Spent: 6 minutes Marie Beavers MD Associate Staff, Genitourinary Medical Oncology August 17, 2023 10:22 AM documented in this encounterUniversity Hospitals Samaritan Medical Center11-20-2023 Miscellaneous Notes* Telephone Encounter - Inés Dumont [...] urine. 11. : N/a Protocols used: Back [id number] documented in this encounterUniversity Hospitals Samaritan Medical Center09-28-2023 History of Present illness Narrative* Marie Beavers MD - 02/10/2023 1:30 PM EDT [facility] PROGRESS NOTE - TELEPHONE VISIT I have communicated my name and active licensure. The patient's identity and physical location wereverified at the time of this visit. Either the patient or their legal premium representative has been informed of the risks [...] a telephone visit. 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 More emergently, however, he needed a CABG, so started with ADT alone prior todefinitive treatment with radical prostatectomy in November 2021, with [id number] disease. Given that he had gotten ADT [...] get an Eligard shot (30 mg) in August, and does have some hot flashes. REVIEW [...] prostate cancer 77 y.o. M with resected [id number] prostate cancer here for follow-up. S/p salvage RT with short course ADT. PSA undetectable, but testosterone also remaining at castratelevels. PLAN: 1) follow-up with PSA and testosterone in 6 months Total Time Spent: 7 minutes Marie Beavers MD documented in this encounterUniversity Hospitals Samaritan Medical Center06-29-2023 History of Present illness Narrative* Artur Mi MD, MD - 11/11/2022 9:17 AM EDT AMBULATORY TELEPHONE VISIT Jermaine Begum has consented to this telephone encounter. Persons Present: patient Chief Complaint/Reason: Four week follow-up after radiation treatment. HPI: Stage ROGERIO, pT3a pN1, prostate adenocarcinoma with Ratna score 7 (4+3) and pretreatment PSA 34.08 [...] minutes Artur Mi MD documented in this encounterUniversity Hospitals Samaritan Medical Center06-05-2023 Miscellaneous Notes* Telephone Encounter - Jaylene Smallwood Ma - 10/18/2022 8:10 AM EDT Pt scheduled for Physical on 05/24/23 at 11 AM. Pt notified via [employer]. * Telephone Encounter - Jaylene Smallwood Ma - 10/15/2022 4:57 PM EDT Pt notified via [employer]. Offered to schedule his physical in May. Will await his response. Jaylene Smallwood Ma * Telephone Encounter - Wes Rider MD - 10/15/2022 4:54 PM EDT OK to wait until next May to get labs and see him back Wes Rider MD * Telephone Encounter - Precious [...] pt. Precious Deleon Ma documented in this encounterUniversity Hospitals Samaritan Medical Center05-31-2023 Nurse Note* Marissa Salvador RN - 10/13/2022 [...] patient education: 05 minutes. documented in this encounterUniversity Hospitals Samaritan Medical Center05-31-2023 History of Present illness Narrative* Artur Mi MD, MD - 10/13/2022 12:00 AM EDT JERMAINE BEGUM [id number] : 1945 10/13/2022 [facility] Department of Radiation Oncology RADIATION ONCOLOGY - COMPLETION NOTE DATE OF SIMULATION: 08/13/22 DATES OF TREATMENT: 08/24/22 - 10/13/22 UNIT: _[facility] AREA TREATED: Pelvis/prostate bed DISEASE: Stage ROGERIO, pT3a pN1, prostate adenocarcinoma with Ruth score 7 (4+3) and pretreatment PSA 34.08 [...] M.D. / 31:29 PM Electronically Signed cc: Wes Rider [address] [place] [address] Marie Pearcefabien [address] [facility] [address] Diamond Damon [address] [facility] [id number] documented in this encounterUniversity Hospitals Samaritan Medical Center05-30-2023 Nurse Note* Marissa Salvador RN - 10/12/2022 11:[address] Mi's orders to help relieve gas prior to radiation treatment, #14 fr cath inserted via rectum to 10cm and held in place for about 1 min then removed. Pt tolerated well. documented in this encounterUniversity Hospitals Samaritan Medical Center05-09-2023 History of Past illness Narrative* Problem Noted [...] atrial fibrillation Coronary artery disease invo lving [place] coronary artery of [place] heart without angina pectoris 08/27/2021 09/30/2021 documented as of this encounter (statuses as of 08/17/2023) [facility]05-09-2023 Nurse Note* Sweta Infante RN - 09/21/2022 9:52 AM EDT Radiation Therapy - Nursing Note (OTV) PATIENT NAME: Jermaine Begum PATIENT September 21, 2022 [facility] [place] FACILITY/LOCATION: [place] NURSING NOTE TYPE: PROSTATE - MALE PELVIS Subjective Data some fatigue, diarrhea , 2 gas x in the am, nothing else Additional Data Do you want to see a Sheet Metal Worker Apprentice? No Status: Patient is male Stress Scale: On a scale of 0 to 10, what number best describes how much distress you have experienced in the past week?(0 being no distress and 10 being extreme distress) 2 Social work notified: Pt denied need to see high school social studies teacher at this time. Nursing [...] by: Sweta Infante RN documented in this encounterUniversity Hospitals Samaritan Medical Center05-09-2023 History of Present illness Narrative* Artur Mi MD, MD - 09/21/2022 9:50 AM EDT Radiation Oncology - On Treatment Review (OTR) Note PATIENT NAME: Jermaine Begum PATIENT DIAGNOSIS: Stage ROGERIO, pT3a pN1, prostate adenocarcinoma with Ruth score 7 (4+3) and pretreatmentPSA 34.08 ng/mL [...] planned. Artur Mi MD documented in this encounterUniversity Hospitals Samaritan Medical Center05-03-2023 Nurse Note* Marissa Salvador RN - 09/15/2022 10:[address] Mi's orders to help relieve gas prior to radiation treatment, #14 fr cath inserted via rectum to 10cm and held in place for about 1 min then removed. Pt tolerated well. documented in this encounterUniversity Hospitals Samaritan Medical Center05-02-2023 Nurse Note* Marissa Salvador RN - 09/14/2022 9:45 AM EDT Radiation Therapy - Nursing Note (OTV) PATIENT NAME: Jermaine Begum PATIENT September 14, 2022 [facility] [place] FACILITY/LOCATION: [facility] NOTE TYPE: PROSTATE - MALE PELVIS Subjective Data No c/o Additional Data Do you want to see a Sheet Metal Worker Apprentice? No Status: Patient is male Stress Scale: On a scale of 0 to 10, what number best describes how much distress you have experienced in the past week?(0 being no distress and 10 being extreme distress) 4 Social work notified: Pt denied need to see high school social studies teacher at this time. Nursing [...] removed. Pt tolerated well. documented in this encounterUniversity Hospitals Samaritan Medical Center05-02-2023 History of Present illness Narrative* Artur Mi MD, MD - 09/14/2022 9:38 AM EDT Radiation Oncology - On Treatment Review (OTR) Note PATIENT NAME: Jermaine Begum PATIENT DIAGNOSIS: Stage ROGERIO, pT3a pN1, prostate adenocarcinoma with Ratna score 7 (4+3) and pretreatmentPSA 34.08 ng/mL [...] stool over the weekend but it resolved onMonday. EXAM: KPS: 90 General Appearance: Alert and oriented. No acute distress. IMAGING/LAB RESULTS: None Treatment chart checked: Yes Patient treatment site reviewed and verified:Yes CBCTs reviewed and current:Yes Medications started: Gas X before each treatment. ASSESSMENT/PLAN: Clinically stable. Toxicity within expected parameters. Continue radiation treatment as planned. Artur Mi MD documented in this encounterUniversity Hospitals Samaritan Medical Center05-01-2023 Nurse Note* Marissa Salvador RN - 09/13/2022 9:[address] Mi's orders to help relieve gas prior to radiation treatment, #14 fr cath inserted via rectum to 10cm and held in place for about 1 min then removed. Pt tolerated well. documented in this encounterUniversity Hospitals Samaritan Medical Center04-28-2023 Nurse Note* Marissa Salvador RN - 09/10/2022 9:[address] Mi's orders to help relieve gas prior to radiation treatment, #14 fr cath inserted via rectum to 10cm and held in place for about 1 min then removed. Pt tolerated well. documented in this [facility]04-27-2023 Nurse Note* Marissa Salvador RN - 09/09/2022 10:[address] Mi's orders to help relieve gas prior to radiation treatment, #14 fr cath inserted via rectum to 10cm and held in place for about 1 min then removed. Pt tolerated well. documented in this [facility]04-26-2023 Nurse Note* Sweta Infante RN - 09/08/2022 3:[address] Mi's orders to help relieve gas prior to radiation treatment, #14 fr cath inserted via rectum to 10cm and held in place for about 1 min then removed. Pt lisa. well. documented in this [facility]04-25-2023 Nurse Note* Sweta Infante RN - [...] NAME: Jermaine Begum PATIENT September 07, 2022 [facility] [place] FACILITY/LOCATION: [facility] NOTE TYPE: PROSTATE - MALE PELVIS Subjective Data not eating a lot since he has been taking the mag citrate Additional Data Do you want to see a Sheet Metal Worker Apprentice? No Status: Patient is male Stress Scale: On a scale of 0 to 10, what number best describes how much distress you have experienced in the past week?(0 being no distress and 10 being extreme distress) 2 Social work notified: Pt denied need to see high school social studies teacher at this time. Nursing [...] by: Sweta Infante RN documented in this encounterUniversity Hospitals Samaritan Medical Center04-25-2023 History of Present illness Narrative* Artur Mi MD, MD - 09/07/2022 9:56 AM EDT Radiation Oncology - On Treatment Review (OTR) Note PATIENT NAME: Jermaine Begum PATIENT DIAGNOSIS: Stage ROGERIO, pT3a pN1, prostate adenocarcinoma with Ratna score 7 (4+3) and pretreatmentPSA 34.08 ng/mL [...] planned. Artur Mi MD documented in this encounterUniversity Hospitals Samaritan Medical Center04-21-2023 Nurse Note* Sweta Infante RN - 09/03/2022 12:[address] Mi's orders to help relieve gas prior to radiation treatment, #14 fr cath inserted via rectum to 10cm and held in place for about 1 min then removed. Pt lisa. well documented in this [facility]04-20-2023 History of Present illness Narrative* Sweta Infante RN - 09/02/2022 9:[address] Mi's orders to help relieve gas prior to radiation treatment, #14 fr cath inserted via rectum to 10cm and held in place for about 1 min then removed. Pt lisa. well. documented in this encounterUniversity Hospitals Samaritan Medical Center04-14-2023 Nurse Note* Marissa Salvador RN - 08/27/2022 [...] constipation. Pt verbalized understanding. documented in this encounterUniversity Hospitals Samaritan Medical Center04-12-2023 Nurse Note* Sweta Infante RN - 08/25/2022 11:[address] Mi's orders to help relieve gas prior to radiation treatment, #14 fr cath inserted via rectum to 10cm and held in place for about 1 min then removed. Small amount of brown stool noted in tip of catheter. Pt lisa. well. documented in this encounterUniversity Hospitals Samaritan Medical Center04-11-2023 History of Present illness Narrative* Arely Baxter [...] PA-C. Arely Baxter LPN documented in this encounterUniversity Hospitals Samaritan Medical Center04-11-2023 History of Present illness Narrative* Artur Mi MD, - 08/24/2022 10:10 AM EDT Radiation Oncology - On Treatment Review (OTR) Note PATIENT NAME: Jermaine Begum PATIENT DIAGNOSIS: Stage ROGERIO, pT3a pN1, prostate adenocarcinoma with Ratna score 7 (4+3) and pretreatmentPSA 34.08 ng/mL [...] planned. Artur Mi MD documented in this encounterUniversity Hospitals Samaritan Medical Center04-11-2023 Nurse Note* Sweta Infante RN - 08/24/2022 10:02 AM EDT Radiation Therapy - Nursing Note (OTV) PATIENT NAME: Jermaine Begum PATIENT August 24, 2022 [facility] [place] FACILITY/LOCATION: [place] NURSING NOTE TYPE: PROSTATE - MALE PELVIS Subjective Data no complaints Additional Data Do you want to see a Sheet Metal Worker Apprentice? No Status: Patient is male Stress Scale: On a scale of 0 to 10, what number best describes how much distress you have experienced in the past week?(0 being no distress and 10 being extreme distress) 1 Social work notified: Pt denied need to see high school social studies teacher at this time. Nursing [...] by: Sweta Infante RN documented in this encounterUniversity Hospitals Samaritan Medical Center04-04-2023 Miscellaneous Notes* Telephone Encounter - Arely Baxter LPN - 08/17/2022 4:34 PM EDT [employer] message sent. Arely Baxter LPN * Telephone Encounter - Arely Baxter LPN - 08/17/2022 4:20 PM EDT Images from the original note were not included. Patient stopped by clinic- reports he had his phone on silence on accident. Requested clarificationand to send response to [employer] along with appointment. Patient would like clarification since he had PSA done July 29, 2022. [facility] and would let him know. Arely Alves PA-C Yesterday (12:36 PM) Have him do labs before getting Eligard then he needs scheduled for Eligard Injection on nurse schedule And PSA and Total Testosterone in 4 months I gael order the 4 month once he has the shot ROD Cadena, JULES GEE * Telephone Encounter - Arely Baxter LPN [...] No answer- left message to call clinic. [employer] message sent Arely Baxter LPN * Telephone [...] dose since all mine are 4 month retirement patients. I can try to get a [...] ROD Cadena, [place], PAEsteban documented in this encounterUniversity Hospitals Samaritan Medical Center04-04-2023 History of Present illness Narrative* Jacquelyn Heller, [...] 38 Jacquelyn Heller PT documented in this encounterUniversity Hospitals Samaritan Medical Center03-31-2023 History of Present illness Narrative* Corby Elliott MD - 08/13/2022 12:00 AM EDT JERMAINE BEGUM [id number] 08/13/2022 [facility] Department of Radiation Oncology [facility] RADIATION ONCOLOGY SIMULATION NOTE DATE OF SIMULATION: 08/13/2022 MACHINE: [employer] CT DIAGNOSIS: Malignant neoplasm of prostate AREA:pelvis [...] Elliott M.D. :42 PM documented in this encounterUniversity Hospitals Samaritan Medical Center03-31-2023 History of Present illness Narrative* Artur Mi MD, - 08/13/2022 12:00 AM EDT JERMAINE BEGUM [id number] 08/13/2022 [facility] Department of Radiation Oncology Treatment Planning [...] Mi M.D. 0:57 AM documented in this encounterUniversity Hospitals Samaritan Medical Center03-27-2023 History of Present illness Narrative* Corby Elliott MD - 08/09/2022 12:00 AM EDT JERMAINE BEGUM [id number] 08/09/2022 [facility] Department of Radiation Oncology [facility] RADIATION ONCOLOGY SIMULATION NOTE DATE OF SIMULATION: 08/09/2022 MACHINE: [employer] CT DIAGNOSIS: Prostate cancer AREA:Pelvis PROTOCOL: None [...] Elliott M.D. :51 PM documented in this encounterUniversity Hospitals Samaritan Medical Center03-21-2023 History of Present illness Narrative* Jacquelyn Arron, PT - 08/03/2022 3:04 PM EDT Episode [...] Care: created on 06/04/22 Updated on: 08/05/22 [place] in home exercise program.-PROGRESSING Patient will demonstrate [...] Patient to be seen for Therapeutic exercise (71048), Manual therapy (18272), Self-mcc management (94248), Patient/Family/Caregiver Education PLAN FOR NEXT VISIT: progress exercises as tolerated SUBJECTIVE: Patient Reason for Visit: Pt reports no change in bladder function since IE two months ago (pt was in [place] the past couple months). Pt reports good [...] program to facilitate proper performance and compliance. Self-Fpc Management: 1: Reviewed expected timeline and goals for PFPT based on current procedure Skilled Intervention: Skilled judgment in the selection of proper modification for activity of daily living/home management based on clinical presentation, deficits, and needs. Billing Therapeutic Exercise Treatment Minutes: 36 Self-Care/Home Management Treatment Minutes: 4 Total Treatment Time Minutes (timed/untimed): 40 Jacquelyn Heller PT documented in this encounterUniversity Hospitals Samaritan Medical Center01-27-2023 History of Present illness Narrative* Marie Beavers MD - 06/11/2022 11:17 PM EST [facility] PROGRESS NOTE - TELEPHONE VISIT SERVICE DATE: [...] a telephone visit. Initially was diagnosed with Ruth 4+3 disease in setting of PSA of 34.08, clinically very high risk with EPE+ on MRI. More emergently, however, he needed a CABG, so started with ADT alone prior todefinitive treatment with radical prostatectomy in November 2021, with [id number] disease. Given that he had gotten ADT [...] prostate cancer 76 y.o. M with resected [id number] prostate cancer here for follow-up. We had [...] which included preparing to see the patient, [id number] patient care, completing clinical documentation, obtaining and/or reviewing separately obtained history, counseling and educating the patient/family/caregiver, and ordering medications, tests, or procedures. Marie Beavers MD Associate Staff, Genitourinary Medical Oncology June 11, 2022 11:20 PM documented in this encounterUniversity Hospitals Samaritan Medical Center01-23-2023 Nurse Note* Marissa Salvador RN - 06/07/2022 9:40 AM EST Radiation Therapy - Nursing Note (Consult) PATIENT NAME: Jermaine Begum PATIENT June 07, 2022 [facility] [place] FACILITY/LOCATION: [place] Chief Complaint: consult for prostate cancer Reason for visit: Consult. Referring physician: Internal provider Dr Hampton Subjective Data: pt reports just finding out about therapy for urinary incontinence, pt saw Jacquelyn Lombardo PT 06/04/22 Additional Data Do you want to see a Sheet Metal Worker Apprentice? No Are you interested in information about fertility? No Status: Patient is male Stress Scale: On a scale of 0 to 10, what number best describes how much distress you have experienced in the past week?(0 being no distress and 10 being extreme distress) 1 Social work notified: Pt denied need to see high school social studies teacher at this time. SIGNED by: Marissa Salvador RN documented in this encounterUniversity Hospitals Samaritan Medical Center01-23-2023 History of Present illness Narrative* rAtur Mi MD, MD - 06/07/2022 9:38 AM EST Radiation Oncology - New Patient/Consult Note PATIENT NAME: Jermaine Begum PATIENT REQUESTING PROVIDER: Quentin Hampton DIAGNOSIS: Stage ROGERIO, pT3a pN1, prostate adenocarcinoma with Ratna score 7 (4+3) and pretreatmentPSA 34.08 ng/mL [...] biopsy on 06/23/21 showed prostate adenocarcinoma with Ruth score 7 (4+3). CT A/P on 07/30/21 [...] Left 03/16/2016 Dr. Wilkerson CARDIOVERSION N/A 09/19/2020 [facility] PAST SURGICAL HISTORY OF 05/16/1955 had left [...] from <0.02.He saw Dr. Hampton at the [facility] main campus and salvage radiation treatment was recommended if repeat PSA confirms PSA rise. I agree. He will see Dr. Beavers to discuss hormonal therapy. I explained the rationale, benefits, alternative management options and potential complications of radiation treatment to the patient and he understands and agrees to proceed. It was explained and understood that other personnel such as radiation therapists, concessionist, and physicists will participate in planning and delivery of radiation treatment. Permanent tattoo paulson will be placed to aid with positioning for daily treatment and the patient consented. He plans to travel to [place] for six weeks and will return in the middle of July and he wants to repeat PSA at that time. Thank you very much for allowing us to participate in his care. Signed by: Artur iM MD cc: Wes Rider [address] [place] [address] Quentin Hampton [address] [facility] [address] [address] [facility] [address] Marie Beavers [address] [facility] [id number] documented in this encounterUniversity Hospitals Samaritan Medical Center01-20-2023 History of Present illness Narrative* Jacquelyn Heller, [...] of Care: created on 06/04/22 through 09/02/22 [place] in home exercise program. Patient will demonstrate [...] Planned: 4 Planned Treatment Interventions: Therapeutic exercise (37780);Manual therapy (52417);Self-care homemanagement (03133);Patient/Family/Caregiver Education PLAN FOR NEXT VISIT: biofeedback, progress [...] Left 03/16/2016 Dr. Wilkerson CARDIOVERSION N/A 09/19/2020 [facility] PAST SURGICAL HISTORY OF 05/16/1955 had left [...] States/Identifies;Return Demonstration TREATMENT: PT Treatment Interventions: Therapeutic Exercise;Self-Fpc Management Evaluation Therapeutic Exercise: 1: *quick kegals, [...] program to facilitate proper performance and compliance. Self-Fpc Management: 1: Reviewed pelvic floor anatomy and [...] 53 Jacquelyn Heller PT documented in this encounterUniversity Hospitals Samaritan Medical Center01-20-2023 Miscellaneous Notes* Telephone Encounter - Precious Deleon Ma - 06/04/2022 8:05 AM EST See pt message. Assuming he's not needing any labs at present time. A1c, Lipid 05/14/22. CMP, A1c 02/25/22. A1c 12/25/21. Precious Deleon Ma documented in this encounterUniversity Hospitals Samaritan Medical Center01-17-2023 History of Present illness Narrative* Quentin Hampton [...] with prostate adenocarcinoma, initial PSA 34.08, biopsy Ratna score 4+ 3 = 7 (grade group [...] noted EPE. Prostate biopsy on 06/23/21 revealed Ratna 4+3=7 (GG 3) disease involving 5 of [...] revealed: -Prostatic adenocarcinoma with therapy effect. No ratna score identified -Negative margins -EPE present -No SVI -1/8 lymph nodes positive for carcinoma -Final pathologic stage [id number] Post-operative PSA was undetectable (while T was [...] Left 03/16/2016 Dr. 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 Residence: [place], [place] with COMPLETE REVIEW OF SYSTEMS: 12 [...] pelvic nodes. He would favor treatment in [place] with Dr. Mi. We will assist in [...] with prostate adenocarcinoma, initial PSA 34.08, biopsy Ruth score 4 + 3 = 7 (grade [...] schedule). - Referral to rad onc at [facility] with plan for pelvic RT. - He [...] 5 - High Quentin Hampton MD cc: Wes Rider [address] [place] [address] [address] Damon [address] [facility] [id number] documented in this encounterUniversity Hospitals Samaritan Medical Center01-16-2023 Miscellaneous Notes* Telephone Encounter - Nicolette Underwood RN - 05/31/2022 11:33 AM EST Chart reviewed for upcoming appointment in Radiation Oncology. Patient has detectable PSA. Nicolette Echle, RN documented in this encounterUniversity Hospitals Samaritan Medical Center01-05-2023 History of Present illness Narrative* Wes Rider MD - 05/20/2022 4:20 PM EST [...] daily. Wantsto get back into exercising at [employer]. Enjoys golfing. Only complaint today, which he [...] Left 03/16/2016 Dr. Wilkerson CARDIOVERSION N/A 09/19/2020 [facility] PAST SURGICAL HISTORY OF 05/16/1955 had left [...] Past Histories independently gathered by the clinical patient support specialist and the remaining scribed note accurately describes my personal service to the patient. Medical Decision Making: Problems: Low: Acute, uncomplicated illness or injury Moderate: 2+ stable chronic illnesses Data: Unique test result(s) reviewed: 1 Risk: Moderate: Drug management Medical Decision Making Level: 4 - Moderate Wes Rider MD The documentation for this note was completed by Precious Deleon Ma acting as scribe for Wes Rider MD. May 20, 2022 4:35 PM. Precious Deleon Ma documented in this encounterUniversity Hospitals Samaritan Medical Center01-03-2023 Miscellaneous Notes* Telephone Encounter - Jaylene Smallwood Ma - 05/18/2022 3:58 PM EST Pt notified via [employer] that he is due for an appointment and to call in and schedule. Jaylene Smallwood Ma * Telephone Encounter - Wes Rider MD - 05/18/2022 3:45 PM EST I would like to see him about once a year, so since it has been over that time he should make an appt Wes Rider MD * Telephone Encounter - Precious Deleon Ma - 05/18/2022 8:10 AM EST Labs in. Pt wants to know if he will need an appt? Pt last seen 03/31/21. Precious Dleeon Ma documented in this encounterUniversity Hospitals Samaritan Medical Center12-12-2022 Miscellaneous Notes* Telephone Encounter - Arely Baxter LPN - 04/26/2022 4:18 PM EST Patient sent in information via [employer] on device he is requesting. Did look up information on device but need to clarify how long each device is good for. Arely Baxter LPN documented in this encounterUniversity Hospitals Samaritan Medical Center12-12-2022 Miscellaneous Notes* Telephone Encounter - Arely Baxter LPN - 04/26/2022 3:12 PM EST Called patient. Verified name and date of . Patient described catheter that he would like. Uncertain of name or states it is not a condom catheter. Patient advised to send information via [employer] once he has details. Arely Baxter LPN documented in this encounterUniversity Hospitals Samaritan Medical Center12-08-2022 History of Present illness Narrative* Arely Carreno RN - 04/22/2022 11:21 AM EST Spoke to patient regarding questionnaires. Explained that the questionnaires are only available for 2 weeks and will after the 2 week wes. Notified him to expect another one in the new year for QoL follow up. documented in this encounterUniversity Hospitals Samaritan Medical Center12-02-2022 Miscellaneous Notes* Telephone Encounter - Ambar Jimenez - 04/16/2022 12:10 PM EST Patient will milk pickup driver order after 2:00 pm today 04/16/23. * Telephone Encounter - Nancy Lizama - 04/16/2022 11:52 AM EST Order was filled and printed. Please have provider sign and call pt when order is available for him to milk pickup driver. [phone] Nancy Lizama * Telephone Encounter - Nancy Lizama - 04/14/2022 12:42 PM EST Pt called back. He just needs a written order for the external catheters and [place]. Signed written order with diagnosis. He is going to submit himself and his insurance will reimburse. Please call pt when order is available for him to milk pickup driver. [phone] Nancy Dosses * Telephone Encounter - Nancy Lizama - 04/14/2022 11:52 AM EST Pt calling back. He has not had any luck in finding a DME company. Suggested he try [facility] to see if they might be on his insurance plan. Advised that they do carry a large variety of Urology and incontinence supplies. Pt will call them and inquire and if they are in network, we will need to fax order to them. Nancy Alda * Telephone Encounter - Nancy Lizama - [...] with. Arely Baxter LPN documented in this encounterUniversity Hospitals Samaritan Medical Center11-22-2022 History of Present illness Narrative* Arielle Stanton Research Coordinator - 04/06/2022 3:08 PM EST QOL Call Tracking Documentation Follow-Up Type: Phone Call Call Attempt: 1st Attempt Call Status: Left Message documented in this encounterUniversity Hospitals Samaritan Medical Center10-25-2022 History of Present illness Narrative* Rubén Alves PA-C - 03/09/2022 1:16 PM EDT Images from the original note were not included. [facility] FOR [facility]'S [...] Left 03/16/2016 Dr. Wilkerson CARDIOVERSION N/A 09/19/2020 [facility] PAST SURGICAL HISTORY OF 05/16/1954 had left [...] and Family: Three times a week Attends Religion Services: More than 4 times per year [...] Plan: Appointment with Rubén. documented in this encounterUniversity Hospitals Samaritan Medical Center10-20-2022 History of Present illness Narrative* Marie Beavers MD - 03/04/2022 9:39 PM EDT [facility] PROGRESS NOTE SERVICE DATE: March 04, 2022 [...] risk prostate cancer. Initially was diagnosed with Ruth 4+3 disease in setting of PSA of 34.08, clinically very high risk with EPE+ on MRI. More emergently, however, he needed a CABG, so started with ADT alone prior todefinitive treatment with radical prostatectomy in November 2021, with [id number] disease. Given that he had gotten ADT [...] 11/19/2021 7.38 7.35 - 7.45 Final Specific [place], Ur Date Value Ref Range Status 11/17/2021 [...] prostate cancer 76 y.o. M with resected [id number] prostate cancer here for follow-up. We had [...] which included preparing to see the patient, [id number] patient care, completing clinical documentation, obtaining and/or reviewing separately obtained history, counseling and educating the patient/family/caregiver, and ordering medications, tests, or procedures. Marie Beavers MD Associate Staff, Genitourinary Medical Oncology March 04, 2022 9:39 PM cc: Marie Rider MD documented in this encounterUniversity Hospitals Samaritan Medical Center09-13-2022 History of Present illness Narrative* Tracy Brigitte Salcido [facility] Health Navigator - 01/26/2022 12:43 PM EDT [...] this appointment? N/A Reason for Outreach Medical [facility] Diabetes Management Payer: Payor: Hepa Wash / Plan: [employer] HMO / Product Type: HMO / Care [...] Sent to Practice: Yes Navigation Signature: Tracy Salcido [facility] Health Navigator January 26, 2022 12:43 PM Electronically signed by [facility] at 01/26/2022 4:22 PM EDT documented in this encounterUniversity Hospitals Samaritan Medical Center09-09-2022 History of Present illness Narrative* Bandar Soria DO - 01/22/2022 9:04 AM EDT Images from the original note were not included. [facility] [place] [facility] Department of Cardiovascular Medicine SECTION OF CARDIOVASCULAR IMAGING OUTPATIENT VISIT DATE January 22, 2022 OUTPATIENT VISIT TYPE ESTABLISHED PRIMARY CARE PHYSICIAN: Wes Rider [address] [place] [address] REFERRING PHYSICIAN: Bandar Soria [address]15 [facility] [id number] CHIEF COMPLAINT: Follow up HISTORY OF PRESENT [...] Left 03/16/2016 Dr. Wilkerson CARDIOVERSION N/A 09/19/2020 [facility] PAST SURGICAL HISTORY OF 05/16/1954 had left [...] of prostatectomy CONTACT INFORMATION: Bandar Soria DO, [facility], IS[facility] and Sofia Campaed Chair of Cardiovascular Imaging Director, Echocardiography Laboratory [facility] Department of Cardiovascular Medicine [facility] [place] [facility] Desk [place] [address] Office - [phone] extension [phone] Office Appointments: [phone] -[phone] extension [phone] documented in this encounterUniversity Hospitals Samaritan Medical Center08-19-2022 Miscellaneous Notes* Telephone Encounter - Bandar Damon [...] Dr. Damon for FYI. documented in this encounterUniversity Hospitals Samaritan Medical Center08-19-2022 History of Present illness Narrative* Debbie Morrow APRN.VASCULAR PHYSICIAN - 01/01/2022 8:30 AM EDT VIRTUAL VISIT PROGRESS NOTE This is a virtual visit using [employer] video visit. It required patient-provider interaction for [...] Left 03/16/2016 Dr. Wilkerson CARDIOVERSION N/A 09/19/2020 [facility] PAST SURGICAL HISTORY OF 05/16/1954 had left [...] which included preparing to see the patient, [id number] patient care, and completing clinical documentation Debbie Morrow APRN.CNP documented in this encounterUniversity Hospitals Samaritan Medical Center08-17-2022 Nurse Note* Dipti Knight RN - 12/30/2021 2:06 PM EDT Additional intake questions: Has the patient had fever, nausea, vomiting, diarrhea, constipation, fatigue for > 1 week? No Does the patient have a decreased appetite? No Does patient want to see a Sheet Metal Worker Apprentice? No (yes to any of above refer patient to schedulers for dietitian appointment) ) Does patient have any new or increased numbness or tingling of extremities? No Is patient interested in fertility information? No Does patient need any prescription refills? No Does patient have an advanced directive in place? No, Patient referred to Resource Center documented in this encounterUniversity Hospitals Samaritan Medical Center08-17-2022 History of Present illness Narrative* Marie Beavers MD - 12/30/2021 2:00 PM EDT Images from the original note were not included. [facility] GENITOURINARY ONCOLOGY NEW PATIENT EVALUATION PATIENT NAME: Jermaine Begum : 1945 ATTENDING PHYSICIAN: Marie Beavers MD DATE OF SERVICE: December 28, 2021 REASON FOR EVALUATION: Management of intermediate-risk prostate adenocarcinoma. DIAGNOSIS: Stage ROGERIO (pT3a pN1 M0) prostate adenocarcinoma with EPE, negative margins and 1/8+ LNs with SAMARIA. Ratna score 4+3=7 (grade group 3). HISTORY OF [...] serum testosterone level. 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 Data Reviewed: Most recent labs and imaging [...] Left 03/16/2016 Dr. 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 7. Prostate, left apex, biopsy (G): Adenocarcinoma of the prostate, Ratna score 4+3=7 (grade group 3), involving one [...] are sectioned longitudinally and are grossly unremarkable. Supervisor Sandblaster sections are submitted as follows: A1-A2: Left [...] an outside institution 07/13/2021. On the sagittal overhead distribution engineer view, there appears to be lumbar canal stenosis at L4-L5 mainly related to facet degenerative change. No cord impingement through the level of the conus. Anatomic Thoracic/Lumbar Variant: None. L4-5 is considered the level of the iliac crest and assume there are 5 lumbar-type vertebrae. ASSESSMENT: 76-year-old male with PMHx significant for complex cardiac history s/p recent CABG x 3, biatrial MAZE/LAAC (09/30/21 edira) atrial fibrillation/atrial flutter, HLD, HTN, NIDDM, and Ruth score 4 +3 = 7 (grade group [...] staff, Dr. Marie Beavers. Aj Briseno MD, [facility] Hematology/Oncology Fellow [facility], [facility] December 28, 2021 [facility] [place] STAFF PHYSICIAN NOTE OF PERSONAL INVOLVEMENT IN [...] for CABG. Ultimately underwent prostatectomy on 11/19/21with [id number] pathology and negative margins. Post-op PSA undetectable [...] - Moderate Marie Beavers MD Beeper Number: [id number] Date of Service: December 30, 2021 Time of Service: 8:54 PM documented in this encounterUniversity Hospitals Samaritan Medical Center08-11-2022 Miscellaneous Notes* Telephone Encounter - Precious Deleon Ma - 12/24/2021 10:58 AM EDT Pt called and notified. Verbalized understanding. Precious Deleon Ma * Telephone Encounter - Wes Rider MD - 12/23/2021 7:13 PM EDT A1c ordered Wes Rider MD * Telephone Encounter - Tyler Hurst RN - 12/23/2021 4:15 PM EDT Pt called in asking if he could get the A1C added to his PSA. Last A1C was done on 09/28/21, so 3 months would be 12/29/21. He sees Oncology at [facility] on 12/30/21. If he got it with his PSA he would end up paying for it because it would be too early. Changed expected date to 12/29/21. documented in this encounterUniversity Hospitals Samaritan Medical Center07-27-2022 Miscellaneous Notes* Telephone Encounter - Ginger Finn [...] concerns. Ginger Finn RN documented in this encounterUniversity Hospitals Samaritan Medical Center07-20-2022 Miscellaneous Notes* Telephone Encounter - Inés Dumont RN - 12/02/2021 1:31 PM EDT Patient returned call and given provider's message below with verbalized understanding. * Telephone Encounter - Wes Rider MD - 12/02/2021 1:19 PM EDT He may use colchicine as ordered to see if this will treat the gout attack, and may take one pill daily to prevent attacks. Wes Rider MD * Telephone Encounter - Ginette [...] advise, Ginette Mackenzie RN documented in this encounterUniversity Hospitals Samaritan Medical Center07-12-2022 History of Present illness Narrative* Raj Lam [...] ACETBLR/PROX FEM PROSTC AGRFT/ALGRFT Left 03/16/2016 Dr. Wilekrson CARDIOVERSION N/A 09/19/2020 [facility] PAST SURGICAL HISTORY OF 05/16/1954 had left [...] the date of the service which included [id number] patient care, on the [employer] virtual platform. documented in this encounterUniversity Hospitals Samaritan Medical Center07-05-2022 Instructions* Patient Instructions* Kyara Mc PA-C - 11/17/2021 1:12 PM EDT PATIENT PREOPERATIVE INSTRUCTIONS Diamond Damon MD has scheduled you for your procedure at this surgery center: [facility] [place] Scheduling Office: [phone] --[address] [place] [address]. Please read below carefully for your personalized [...] or other anticoagulants without consulting with your employment assistant or prescribing physician. - Stop Vitamin E, [...] Procedures: - YOU MUST HAVE A RESPONSIBLE SCHOOL STANDARDS COACH TAKE YOU HOME. A RUG DESIGNER OR COLLECTIONS ASSISTANT CANNOT BE MADE A RESPONSIBLE SCHOOL STANDARDS COACH. - We recommend that a responsible person [...] call the Tuesday before. Your surgeon s assistant professor of nursing will tell you what time to call the office. - If you have not reached the departmental assistant professor of nursing by 5 P.M., call [phone] after 5 P.M. the day before your surgery. Please be aware that emergency situations arise, which may delay or change your surgical time. If this happens, we will notify you as soon as possible and regret any inconvenience. If you already have an Advance Directive, please fax a copy to [phone] or email to for it to be [...] day. Kyara Mc PA-C documented in this encounterUniversity Hospitals Samaritan Medical Center07-05-2022 History and physical note * Kyara Mc PA-C - 11/17/2021 12:50 PM EDT Images from the original note were not included. Surgeon: Diamond Damon MD Type of surgery: ROBOTIC LAPAROSCOPIC RETROPUBIC RADICAL PROSTATECTOMY W/ NERVE SPARING Patient scheduled for surgery on 11/19/21 . Surgery Location: [facility] Diagnosis: Pre-op evaluation (primary encounter diagnosis) Malignant [...] Follows with cardiology locally and EP at [facility]. CAD S/p PCI 2006, 2014, CABG x3 [...] 16, 2021 10:33 AM documented in this encounterUniversity Hospitals Samaritan Medical Center07-05-2022 History of Present illness Narrative* Isha Keane APRN.VASCULAR PHYSICIAN - 11/17/2021 10:55 AM EDT [facility] PRE-OP NOTE Jermaine Begum is a 76 year old male. Pre-op Date: November 17, 2021 Date of Procedure: 11/19/2021 Procedure/Surgery: RALP Diagnosis: CaP Primary Surgeon: MD Nelson, [facility] Score: n/a There were no vitals [...] surgery pending [facility]. Isha Keane APRN.JH documented in this encounterUniversity Hospitals Samaritan Medical Center06-29-2022 Miscellaneous Notes* Telephone Encounter - Sweta Tamez - 11/11/2021 4:18 PM EDT Received outside records - uploaded to ep shared drive Appointment on 11/12/2021 Last appointment with this provider Visit date not found Last OV in this dept Visit date not found Sweta Sinha documented in this encounterUniversity Hospitals Samaritan Medical Center06-29-2022 Miscellaneous Notes* Telephone Encounter - Manny Monique [...] saved to scanned documents documented in this encounterUniversity Hospitals Samaritan Medical Center06-22-2022 History of Present illness Narrative* Clarke Rodriguez RN - 11/04/2021 1:15 PM EDT TRANSITION CARE MANAGEMENT (TCM) FOLLOW-UP NOTE Provider Action/FYI: Spoke to patient. Pt is doing well. Taste is off. Appetite is decreased. Pt's last weight was 209 Lbs Pt states he spoke with his employment assistant re: above issues Patient identified by name and date of : YES Spoke to patient Summary: Pt discharged from [facility] on 10/06/21. Admitted for: Coronary artery disease involving [place] coronary artery of [place] heart without angina pectoris Operations during Hospitalization: Day of Surgery:09/30/2021 S/P SURGERY: CABG x 3 (MANTILLA- LAD, SVG- OM1, SVG- PDA), Biatrial Maze procedure (RF with cryo), SUSHMA appendage clip (35 mm Superintendent Plant Protection plan for next outreach: No further follow up needed at this time Signature Clarke Rodriguez RN November 04, 2021 documented in this encounterUniversity Hospitals Samaritan Medical Center06-17-2022 Miscellaneous Notes* Telephone Encounter - Cesilia Arguello RN - 10/30/2021 11:32 AM EDT [facility] Contact Center Inbound Phone Encounter DATE of SERVICE: 10/30/2021 TIME of SERVICE: 11:33 AM Status: Non-urgent, needs attention Service/Provider: Cardiac Surgery Augusta MossD. Reason for call: Care Coordination Contact information: Cirilo Begum [phone]. Resolution: [facility] to [facility] Comments: Cirilo Begum called the [facility] post-discharge line to ask that Colin call his local cardiologists JUNIOR DATA ANALYST, Lele Hanley, at [phone] at [facility] to discuss the next steps regarding his [...] of Resolution 11:33 AM documented in this encounterUniversity Hospitals Samaritan Medical Center06-12-2022 History of Present illness Narrative* Clarke Rodriguez [...] Provider Location Dept Phone 11/17/2021 11:00 AM ISHA KEANE Q Bldg [phone] 11/17/2021 12:15 PM ADMIT INTERVIEW A12 PSSC A Bldg 11/17/2021 12:50 PM PACC MAIN 3 Mn A Bldg [phone] 11/17/2021 1:30 PM LAB A15 MAIN Mn A Bldg [phone] 11/17/2021 2:15 PM LAB COVID MN P BLDG Brandon P Bldg Patient identified by name and date of : YES Spoke to patient Summary: Pt discharged from [facility] on 10/06/21. Admitted for: Coronary artery disease involving [place] coronary artery of [place] heart without angina pectoris Operations during Hospitalization: Day of Surgery:09/30/2021 S/P SURGERY: CABG x 3 (MANTILLA- LAD, SVG- OM1, SVG- PDA), Biatrial Maze procedure (RF with cryo), SUSHMA appendage clip (35 mm Concerns: Weight loss Superintendent Plant Protection plan for next outreach: No further follow up needed at this time Signature Clarke Rodriguez RN October 25, 2021 documented in this encounterUniversity Hospitals Samaritan Medical Center06-01-2022 Miscellaneous Notes* Telephone Encounter - Arely Baxter LPN - 10/14/2021 2:08 PM EDT Verified name and date of . Called patient and aware- verbalizes understanding. States he has prostate removal surgery scheduled for November 19, 2021 and will worry about December when [place] gets here regarding appointments. Arely Baxter LPN * Telephone Encounter - Rubén Alves PA-C - 10/14/2021 10:09 AM EDT He will need 4 month Eligard Injection and PSA in 4 more months ROD Cadena, CT, JULES documented in this encounterUniversity Hospitals Samaritan Medical Center05-31-2022 History of Present illness Narrative* Miri Rivas APRN.JH - 10/13/2021 2:00 PM EDT Images from the original note were not included. [facility] [facility]aleano Department of Cardiovascular Medicine DEPARTMENT [...] Left 03/16/2016 Dr. Wilkerson CARDIOVERSION N/A 09/19/2020 [facility] PAST SURGICAL HISTORY OF 05/16/1954 had left [...] clean, dry and intact Wound: NA SV [place] sites: Location: Right LE, mid and distal, [...] repeat cbc and cmp Follow up with employment assistant in 4-6 weeks. Call CTS OPD with [...] effusion SBE prophylaxis reviewed Discussed wound care Miri Rivas APRN.CNP documented in this encounterUniversity Hospitals Samaritan Medical Center05-31-2022 History of Present illness Narrative* RT Carolyn(R) [...] 13, 2021 2:52 PM documented in this encounterUniversity Hospitals Samaritan Medical Center05-27-2022 History of Present illness Narrative* Diamond Damon [...] from 08/04/2021 copied and updated. HPI: Jermaine Begum is a 76 year old male with prostate cancer who presents for follow up evaluation. Family hx of prostate cancer: No Hx of prostate bx in 2010 which [...] 5, biopsy (A): Adenocarcinoma of the prostate, Ruth score 3+4=7 (grade group 2), involving three [...] mid, biopsy (F): Adenocarcinoma of the prostate, Ratna score 3+3=6 (grade group 1), involving one of one core (less than 5%, less than 1 mm). 7. Prostate, left apex, biopsy (G): Adenocarcinoma of the prostate, Ruth score 4+3=7 (grade group 3), involving one [...] Left 03/16/2016 Dr. Wilkerson CARDIOVERSION N/A 09/19/2020 [facility] PAST SURGICAL HISTORY OF 05/16/1955 had left [...] No exam performed- telephone visit. Debbie Morrow APRN.VASCULAR PHYSICIAN ASSESSMENT: No diagnosis found. PLAN: preop robotic prostatectomy questions answered There are no Patient Instructions on file for this visit. It was necessary to convert the virtual visit to a telephone encounter due to technical difficulties. Diamond Damon MD documented in this encounterUniversity Hospitals Samaritan Medical Center05-25-2022 History of Present illness Narrative* Precious Deleon [...] with patient in regards to scheduling [facility] follow up. Patient went in detail [...] as well. We have scheduled him with Wes Rider MD on 10.08.2021 Thank you Pt identified by name and : YES, via phone Outreach Outcome/Action Spoke to patient or caregiver: Patient scheduled Reason for Outreach Community Monitoring Pool Payer: Payor: JUDY [employer] CROSS [employer] BLUE SHIELD / Plan: AN[employer]RO MEDIBLUE HMO / Product Type: HMO / [...] Home Visit Referral Source of Stratification: [facility] Hospital Admission Status: Discharged Readmission Risk Score: [...] advised the pt I would have the assistant professor of nursing call to schedule a f/u with PCP but I was unsure if they would remove the dressing. Pt verbalizes understanding and denies questions or concerns. Agreeable to additional outreaches as needed. Appointments for Next 60 Days Date Time Provider Location Dept Phone 10/09/2021 3:45 PM DIAMOND DAMON Rose Mn Q Bldg [phone] 10/13/2021 1:15 PM XR CHEST MAIN J1 Mn J Bldg [phone] 10/13/2021 1:30 PM LBJ1-4 MAIN Mn J Bldg [phone] 10/13/2021 1:45 PM EKGJ1-4 MAIN Mn J Bldg [phone] 10/13/2021 2:00 PM MIRI RIVAS Mn J Bldg [phone] 10/20/2021 12:30 PM SURGICAL REGISTRATION 2 Mn J Bldg 11/17/2021 11:00 AM ISHA KEANE Mn Q Bldg [phone] 11/17/2021 12:15 PM ADMIT INTERVIEW A12 PSSC A Bldg 11/17/2021 12:50 PM PACC MAIN 3 Mn A Bldg [phone] 11/17/2021 1:30 PM LAB A15 MAIN Mn A Bldg [phone] 11/17/2021 2:15 PM LAB COVID MN P BLDG Brandon P Bldg SUMMARY: Pt discharged from [facility] on 10/06/21. Admitted for: Coronary artery disease involving [place] coronary artery of [place] heart without angina pectoris Operations during Hospitalization: Day of Surgery:09/30/2021 S/P SURGERY: CABG x 3 (MANTILLA- LAD, SVG- OM1, SVG- PDA), Biatrial Maze procedure (RF with cryo), SUSHMA appendage clip (35 mm) Contact made with patient: Yes Hi my name is Clarke Rodriguez RN and I am calling from the [facility] on behalf of your PCP, Wes Rider MD I understand you were recently [...] like to speak with a social work steam conditioner filling to help give you support for any [...] I will send your request to a assistant professor of nursing who will contact and assist you with that appointment. This will give you an opportunity to ask any questions or address any concerns youmay have with your PCP. Inform the patient that if they have any questions or concerns prior to that appointment, to call their PCP's office right away. ACTION TAKEN: Patient desires an appointment - Routed to [facility] [[id number]] for schedulingtelehealth visit (telephonic, virtual visit, or [...] possible). Clarke Rodriguez RN documented in this encounterUniversity Hospitals [facility]05-25-2022 Miscellaneous Notes* Telephone Encounter - Ana Gasca RN - 10/07/2021 2:27 PM EDT RN Attempted to reach patient as a follow up call after recent discharge from hospital. Pt prefers call back. Ana Gasca RN documented in this encounterUniversity Hospitals Samar[facility] Center05-25-2022 History of Present illness Narrative* Marium Marrero [...] will be made. SUMMARY: -Pt discharged from [facility] on 10/06/21. -Follow up appointment on Defer [...] days. Confirmed fills on medication dispense history. [facility] [address] [place] [id number] [facility] [phone] Discontinued: 10/06/2021 9:48 AM Lancets lancets [...] fills on medication dispense history. Preferred pharmacy: [facility] [address] [place] [id number] - [facility] - [phone] [place] [id number] e- [facility] [place] [address] - [address] [facility] - [phone] [address] [facility] [address] [facility] [address] [facility] [address] [facility] [address] [facility] [id number] Estimated Creatinine Clearance: 68.5 mL/min (based on [...] Date(s) Administered COVID-19 vaccine, age 12+ yr (SlideMail-ZIRX - PURPLE TOP) 06/17/2020 07/08/2020 04/06/2021 DT(PEDIATRIC) 02/04/2003 Influenza Seasonal - High Dose - Age 65+ 05/15/2018 Pneumococcal-13 Vac Conjugate 05/15/2018 Pneumovax 03/20/2013 TD Adult 07/26/2013 Additional follow up: Appointments for Next 60 Days Date Time Provider Location Dept Phone 10/09/2021 3:45 PM [facility]OND [facility] [phone] 10/13/2021 1:15 PM XR CHEST MAIN J1 [facility] [phone] 10/13/2021 1:30 PM LBJ1-4 MAIN [facility] [phone] 10/13/2021 1:45 PM EKGJ1-4 MAIN [facility] [phone] 10/13/2021 2:00 PM EVELYN REHANAKEVIN [facility] [phone] 10/20/2021 12:30 PM SURGICAL REGISTRATION 2 Mn J Bldg 11/17/2021 11:00 AM BRUCEISHA [facility] [phone] 11/17/2021 12:15 PM ADMIT INTERVIEW A12 PSSC A Bldg 11/17/2021 12:50 PM PACC MAIN 3 [facility] A [facility]ld[facility] [phone] 11/17/2021 1:30 PM LAB A15 MAIN Mn A Bldg [phone] 11/17/2021 2:15 PM LAB COVID MN P BLDG [place] P Bldg Interventions Made: None Pharmacist Recommendations Made None Care Coordination: None at this time Time spent on patient: 15-30 minutes Marium Marrero RPh October 07, 2021 9:23 AM documented in this encounterUniversity Hospitals Samar[facility] Center05-19-2022 History of Past illness Narrative* Problem Noted [...] atrial fibrillation Coronary artery disease invo [place]ving [place] coronary artery [place] heart without angina pectoris 08/27/2021 09/30/2021 documented as of this encounter (statuses as of 10/07/2021) [facility] History of Past illness Narrative* Problem Noted [...] atrial fibrillation Coronary artery disease invo [place]ving [place] coronary artery of [place] heart without angina pectoris 08/27/2021 09/30/2021 documented as of this encounter (statuses as of 10/13/2021) [facility] of Past illness Narrative* Problem Noted [...] atrial fibrillation Coronary artery disease invo lving [place] coronary artery of [place] heart without angina pectoris 08/27/2021 09/30/2021 documented as of this encounter (statuses as of 10/14/2021) [facility] of Past illness Narrative* Problem Noted [...] atrial fibrillation Coronary artery disease invo [place]ving [place] coronary artery of [place] heart without angina pectoris 08/27/2021 09/30/2021 documented as of this encounter (statuses as of 10/14/2021) [facility] of Past illness Narrative* Problem Noted [...] atrial fibrillation Coronary artery disease invo [place]ving [place] coronary artery of [place] heart without angina pectoris 08/27/2021 09/30/2021 documented as of this encounter (statuses as of 10/15/2021) [facility] of Past illness Narrative* Problem Noted [...] atrial fibrillation Coronary artery disease invo [place]ving [place] coronary artery of [place] heart without angina pectoris 08/27/2021 09/30/2021 documented as of this encounter (statuses as of 10/25/2021) [facility] of Past illness Narrative* Problem Noted [...] atrial fibrillation Coronary artery disease invo [place]ving [place] coronary artery of [place] heart without angina pectoris 08/27/2021 09/30/2021 documented as of this encounter (statuses as of 10/30/2021) [facility] of Past illness Narrative* Problem Noted [...] atrial fibrillation Coronary artery disease invo [place]ving [place] coronary artery of [place] heart without angina pectoris 08/27/2021 09/30/2021 documented as of this encounter (statuses as of 11/04/2021) [facility] of Past illness Narrative* Problem Noted [...] atrial fibrillation Coronary artery disease invo [place]ving [place] coronary artery of [place] heart without angina pectoris 08/27/2021 09/30/2021 documented as of this encounter (statuses as of 11/11/2021) [facility] of Past illness Narrative* Problem Noted [...] atrial fibrillation Coronary artery disease [place]ving [place] coronary artery of [place] heart without angina pectoris 08/27/2021 09/30/2021 documented as of this encounter (statuses as of 11/11/2021) [facility] Past illness Narrative* Problem Noted [...] atrial fibrillation Coronary artery disease invo [place]ving [place] coronary artery of [place] heart without angina pectoris 08/27/2021 09/30/2021 documented as of this encounter (statuses as of 11/17/2021) [facility] Past illness Narrative* Problem Noted [...] atrial fibrillation Coronary artery disease [place]ving [place] coronary artery of [place] heart without angina pectoris 08/27/2021 09/30/2021 documented as of this encounter (statuses as of 11/17/2021) [facility] of Past illness Narrative* Problem Noted [...] atrial fibrillation Coronary artery disease [place]ving [place] coronary artery of [place] heart without angina pectoris 08/27/2021 09/30/2021 documented as of this encounter (statuses as of 11/20/2021) [facility] of [facility] illness Narrative* Problem Noted [...] atrial fibrillation Coronary artery disease [place]ving [place] coronary artery of [place] heart without angina pectoris 08/27/2021 09/30/2021 documented as of this encounter (statuses as of 11/25/2021) [facility] of [facility] illness Narrative* Problem Noted [...] atrial fibrillation Coronary artery disease [place]ving [place] coronary artery of [place] heart without angina pectoris 08/27/2021 09/30/2021 documented as of this encounter (statuses as of 11/25/2021) [facility] illness Narrative* Problem Noted [...] atrial fibrillation Coronary artery disease [place]ving [place] coronary artery of [place] heart without angina pectoris 08/27/2021 09/30/2021 documented as of this encounter (statuses as of 11/27/2021) [facility] Narrative* Problem Noted [...] atrial fibrillation Coronary artery disease invo [place]ving [place] coronary artery of [place] heart without angina pectoris 08/27/2021 09/30/2021 documented as of this encounter (statuses as of 12/02/2021) [facility] Narrative* Problem Noted [...] atrial fibrillation Coronary artery disease invo [place]ving [place] coronary artery of [place] heart without angina pectoris 08/27/2021 09/30/2021 documented as of this encounter (statuses as of 12/02/2021) [facility] Narrative* Problem Noted [...] atrial fibrillation Coronary artery disease invo [place]ving [place] coronary artery of [place] heart without angina pectoris 08/27/2021 09/30/2021 documented as of this encounter (statuses as of 12/09/2021) [facility] Narrative* Problem Noted [...] atrial fibrillation Coronary artery disease [place]ving [place] coronary artery of [place] heart without angina pectoris 08/27/2021 09/30/2021 documented as of this encounter (statuses as of 12/24/2021) [facility] Narrative* Problem Noted [...] atrial fibrillation Coronary artery disease [place]ving [place] coronary artery of [place] heart without angina pectoris 08/27/2021 09/30/2021 documented as of this encounter (statuses as of 12/31/2021) [facility] Narrative* Problem Noted [...] atrial fibrillation Coronary artery disease invo [place]ving [place] coronary artery of [place] heart without angina pectoris 08/27/2021 09/30/2021 documented as of this encounter (statuses as of 01/01/2022) [facility] Narrative* Problem Noted [...] atrial fibrillation Coronary artery disease invo [place]ving [place] coronary artery of [place] heart without angina pectoris 08/27/2021 09/30/2021 documented as of this encounter (statuses as of 01/01/2022) [facility] Narrative* Problem Noted [...] atrial fibrillation Coronary artery disease invo [place]ving [place] coronary artery of [place] heart without angina pectoris 08/27/2021 09/30/2021 documented as of this encounter (statuses as of 01/22/2022) [facility] Narrative* Problem Noted [...] atrial fibrillation Coronary artery disease invo lving [place] coronary artery of [place] heart without angina pectoris 08/27/2021 09/30/2021 documented as of this encounter (statuses as of 01/26/2022) [facility] Narrative* Problem Noted [...] atrial fibrillation Coronary artery disease invo [place]ving [place] coronary artery of [place] heart without angina pectoris 08/27/2021 09/30/2021 documented as of this encounter (statuses as of 02/09/2022) [facility] Narrative* Problem Noted [...] atrial fibrillation Coronary artery disease invo [place]ving [place] coronary artery of [place] heart without angina pectoris 08/27/2021 09/30/2021 documented as of this encounter (statuses as of 03/05/2022) [facility] Narrative* Problem Noted [...] atrial fibrillation Coronary artery disease invo [place]ving [place] coronary artery of [place] heart without angina pectoris 08/27/2021 09/30/2021 documented as of this encounter (statuses as of 03/09/2022) [facility] Narrative* Problem Noted [...] atrial fibrillation Coronary artery disease invo [place]ving [place] coronary artery of [place] heart without angina pectoris 08/27/2021 09/30/2021 documented as of this encounter (statuses as of 04/06/2022) [facility] Narrative* Problem Noted [...] atrial fibrillation Coronary artery disease invo [place]ving [place] coronary artery of [place] heart without angina pectoris 08/27/2021 09/30/2021 documented as of this encounter (statuses as of 04/16/2022) [facility] Narrative* Problem Noted [...] atrial fibrillation Coronary artery disease invo [place]ving [place] coronary artery of [place] heart without angina pectoris 08/27/2021 09/30/2021 documented as of this encounter (statuses as of 04/22/2022) [facility] Narrative* Problem Noted [...] atrial fibrillation Coronary artery disease invo [place]ving [place] coronary artery of [place] heart without angina pectoris 08/27/2021 09/30/2021 documented as of this encounter (statuses as of 04/26/2022) [facility] Narrative* Problem Noted [...] atrial fibrillation Coronary artery disease invo lving [place] coronary artery of [place] heart without angina pectoris 08/27/2021 09/30/2021 documented as of this encounter (statuses as of 04/29/2022) [facility] Narrative* Problem Noted [...] atrial fibrillation Coronary artery disease invo lving [place] coronary artery of [place] heart without angina pectoris 08/27/2021 09/30/2021 documented as of this encounter (statuses as of 05/19/2022) [facility] Narrative* Problem Noted [...] atrial fibrillation Coronary artery disease invo [place]ving [place] coronary artery of [place] heart without angina pectoris 08/27/2021 09/30/2021 documented as of this encounter (statuses as of 05/21/2022) [facility] Narrative* Problem Noted [...] atrial fibrillation Coronary artery disease invo lving [place] coronary artery of [place] heart without angina pectoris 08/27/2021 09/30/2021 documented as of this encounter (statuses as of 05/31/2022) [facility] Narrative* Problem Noted [...] atrial fibrillation Coronary artery disease invo lving [place] coronary artery of [place] heart without angina pectoris 08/27/2021 09/30/2021 documented as of this encounter (statuses as of 06/04/2022) [facility] Narrative* Problem Noted [...] atrial fibrillation Coronary artery disease invo lving [place] coronary artery of [place] heart without angina pectoris 08/27/2021 09/30/2021 documented as of this encounter (statuses as of 06/04/2022) [facility] Narrative* Problem Noted [...] atrial fibrillation Coronary artery disease invo lving [place] coronary artery of [place] heart without angina pectoris 08/27/2021 09/30/2021 documented as of this encounter (statuses as of 06/05/2022) [facility] Narrative* Problem Noted [...] atrial fibrillation Coronary artery disease invo lving [place] coronary artery of [place] heart without angina pectoris 08/27/2021 09/30/2021 documented as of this encounter (statuses as of 06/10/2022) [facility]arrative* Problem Noted [...] atrial fibrillation Coronary artery disease invo lving [place] coronary artery of [place] heart without angina pectoris 08/27/2021 09/30/2021 documented as of this encounter (statuses as of 06/12/2022) [facility]arrative* Problem Noted [...] atrial fibrillation Coronary artery disease invo lving [place] coronary artery of [place] heart without angina pectoris 08/27/2021 09/30/2021 documented as of this encounter (statuses as of 08/03/2022) [facility]arrative* Problem Noted [...] atrial fibrillation Coronary artery disease invo [place]ving [place] coronary artery of [place] heart without angina pectoris 08/27/2021 09/30/2021 documented as of this encounter (statuses as of 08/03/2022) [facility]arrative* Problem Noted [...] atrial fibrillation Coronary artery disease invo lving [place] coronary artery of [place] heart without angina pectoris 08/27/2021 09/30/2021 documented as of this encounter (statuses as of 08/10/2022) [facility]arrative* Problem Noted [...] atrial fibrillation Coronary artery disease invo lving [place] coronary artery of [place] heart without angina pectoris 08/27/2021 09/30/2021 documented as of this encounter (statuses as of 08/14/2022) [facility]* Problem Noted [...] atrial fibrillation Coronary artery disease invo lving [place] coronary artery of [place] heart without angina pectoris 08/27/2021 09/30/2021 documented as of this encounter (statuses as of 08/17/2022) [facility]* Problem Noted [...] atrial fibrillation Coronary artery disease invo lving [place] coronary artery of [place] heart without angina pectoris 08/27/2021 09/30/2021 documented as of this encounter (statuses as of 08/18/2022) [facility]arr[facility]* Problem Noted [...] atrial fibrillation Coronary artery disease invo lving [place] coronary artery of [place] heart without angina pectoris 08/27/2021 09/30/2021 documented as of this encounter (statuses as of 08/18/2022) [facility]* Problem Noted [...] atrial fibrillation Coronary artery disease invo lving [place] coronary artery of [place] heart without angina pectoris 08/27/2021 09/30/2021 documented as of this encounter (statuses as of 08/24/2022) [facility]* Problem Noted [...] atrial fibrillation Coronary artery disease invo lving [place] coronary artery of [place] heart without angina pectoris 08/27/2021 09/30/2021 documented as of this encounter (statuses as of 08/24/2022) [facility]* Problem Noted [...] atrial fibrillation Coronary artery disease invo lving [place] coronary artery of [place] heart without angina pectoris 08/27/2021 09/30/2021 documented as of this encounter (statuses as of 08/25/2022) [facility]arrative* Problem Noted [...] atrial fibrillation Coronary artery disease invo lving [place] coronary artery of [place] heart without angina pectoris 08/27/2021 09/30/2021 documented as of this encounter (statuses as of 08/26/2022) [facility]* Problem Noted [...] atrial fibrillation Coronary artery disease invo lving [place] coronary artery of [place] heart without angina pectoris 08/27/2021 09/30/2021 documented as of this encounter (statuses as of 08/27/2022) [facility]arr[facility]* Problem Noted [...] atrial fibrillation Coronary artery disease invo lving [place] coronary artery of [place] heart without angina pectoris 08/27/2021 09/30/2021 documented as of this encounter (statuses as of 08/28/2022) [facility]arrative* Problem Noted [...] atrial fibrillation Coronary artery disease invo lving [place] coronary artery of [place] heart without angina pectoris 08/27/2021 09/30/2021 documented as of this encounter (statuses as of 09/02/2022) [facility]arrative* Problem Noted [...] atrial fibrillation Coronary artery disease invo lving [place] coronary artery of [place] heart without angina pectoris 08/27/2021 09/30/2021 documented as of this encounter (statuses as of 09/03/2022) [facility]arrative* Problem Noted [...] atrial fibrillation Coronary artery disease invo lving [place] coronary artery of [place] heart without angina pectoris 08/27/2021 09/30/2021 documented as of this encounter (statuses as of 09/07/2022) [facility]arrative* Problem Noted [...] atrial fibrillation Coronary artery disease invo lving [place] coronary artery of [place] heart without angina pectoris 08/27/2021 09/30/2021 documented as of this encounter (statuses as of 09/09/2022) [facility]* Problem Noted [...] atrial fibrillation Coronary artery disease invo lving [place] coronary artery of [place] heart without angina pectoris 08/27/2021 09/30/2021 documented as of this encounter (statuses as of 09/10/2022) [facility]* Problem Noted [...] atrial fibrillation Coronary artery disease invo lving [place] coronary artery of [place] heart without angina pectoris 08/27/2021 09/30/2021 documented as of this encounter (statuses as of 09/13/2022) [facility]* Problem Noted [...] atrial fibrillation Coronary artery disease invo lving [place] coronary artery of [place] heart without angina pectoris 08/27/2021 09/30/2021 documented as of this encounter (statuses as of 09/14/2022) [facility]* Problem Noted [...] atrial fibrillation Coronary artery disease invo lving [place] coronary artery of [place] heart without angina pectoris 08/27/2021 09/30/2021 documented as of this encounter (statuses as of 09/15/2022) [facility]* Problem Noted [...] atrial fibrillation Coronary artery disease invo [place]ving [place] coronary artery of [place] heart without angina pectoris 08/27/2021 09/30/2021 documented as of this encounter (statuses as of 09/21/2022) [facility]* Problem Noted [...] atrial fibrillation Coronary artery disease invo [place]ving [place] coronary artery of [place] heart without angina pectoris 08/27/2021 09/30/2021 documented as of this encounter (statuses as of 10/12/2022) [facility]* Problem Noted [...] atrial fibrillation Coronary artery disease invo lving [place] coronary artery of [place] heart without angina pectoris 08/27/2021 09/30/2021 documented as of this encounter (statuses as of 10/13/2022) [facility]* Problem Noted [...] atrial fibrillation Coronary artery disease invo lving [place] coronary artery of [place] heart without angina pectoris 08/27/2021 09/30/2021 documented as of this encounter (statuses as of 10/16/2022) [facility] History of Past illness Narrative* Problem Noted [...] atrial fibrillation Coronary artery disease invo lving [place] coronary artery of [place] heart without angina pectoris 08/27/2021 09/30/2021 documented as of this encounter (statuses as of 10/18/2022) [facility] History of Past illness Narrative* Problem Noted [...] atrial fibrillation Coronary artery disease invo lving [place] coronary artery of [place] heart without angina pectoris 08/27/2021 09/30/2021 documented as of this encounter (statuses as of 11/15/2022) [facility] History of Past illness Narrative* Problem Noted [...] atrial fibrillation Coronary artery disease invo lving [place] coronary artery of [place] heart without angina pectoris 08/27/2021 09/30/2021 documented as of this encounter (statuses as of 02/11/2023) [facility] History of Past illness Narrative* Problem Noted [...] atrial fibrillation Coronary artery disease invo lving [place] coronary artery of [place] heart without angina pectoris 08/27/2021 09/30/2021 documented as of this encounter (statuses as of 04/05/2023) [facility]05-18-[facility] Evaluation note* Diagnosis Onset Date Resolution Status H/O coronary artery bypass surgery September 30, 2021 acute Prostate cancer acute Atherosclerosis of coronary artery of [place] heart without angina pectoris chronic Essential hypertension chron ic Hyperlipidemia chronic Paroxysmal atrial fibrillation chronic History of coronary artery stent placement October 18, [address] [facility] Work Phone: 1(880) 315-974005-18-2022 Evaluation note* Diagnosis Onset Date Resolution Status H/O coronary artery bypass surgery September 30, 2021 acute Atherosclerosis of coronary artery of [place] heart without angina pectoris chronic Essential hypertension chron ic Hyperlipidemia chronic Paroxysmal atrial fibrillation chronic Prostate cancer chronic History of coronary artery stent placement October 18, [address] [facility] Work Phone: 1(243) 340-285605-18-2022 Evaluation note* Diagnosis Onset Date Resolution Status H/O coronary artery bypass surgery September 30, 2021 acute Essential hypertension chron ic Hyperlipidemia chronic Paroxysmal atrial fibrillation chronic History of coronary artery stent placement October 18, [address] [facility] Work Phone: 1(804) 563-780405-17-2022 History of Present illness Narrative* Liz Allen APRN.VASCULAR PHYSICIAN - 09/29/2021 11:14 AM EDT See epic documented in this encounterUniversity [facility]als [facility] History of Present illness Narrative* Liz Allen [...] Teach completed, topic: bactroban documented in this encounterUniversity Hospitals [facility]05-[facility] History of Present illness Narrative* Liz Allen APRN.CNP - 09/29/2021 10:40 AM EDT Images from the original note were not included. CONSULT HISTORY and PHYSICAL CARDIOTHORACIC SURGERY Consulting Service: Cardiothoracic Surgery Requesting Provider: [facility] Joint Runner, Marie Bautista M.D.on 08/26/2021. Opinion/advice regarding: Pre-Op [...] space. to Karen. The couple reside in [place], [place]. They have a daughter Jovanna and [...] Left 03/16/2016 Dr. Wilkerson CARDIOVERSION N/A 09/19/2020 [facility] PAST SURGICAL HISTORY OF 05/16/1955 had left [...] 09/28/2021 HDL Cholesterol 33 09/28/2021 LDL Chol, [place] 69 09/28/2021 DATA: I have personally reviewed [...] of Service: 11:04 AM documented in this encounterUniversity Hospitals [facility] History of Present illness Narrative* Elle Wei MD - 09/29/2021 9:00 AM EDT Images from the original note were not included. Cardiothoracic Anesthesiology Preoperative Assessment Service Date: 09/29/2021 Service Time: 8:01 AM Primary Care Physician: Wes Rider MD Subjective Scheduled procedure: CABG Surgeon: Rosemary Parksvianey is a 76 year old male who [...] and prostate ca (surgery scheduled for 11/2021). [facility] 08/2021 w/ severe disease to LAD, D1, [...] Imm Admin: COVID-19 vaccine, age 12+ yr (PFIZER-BIONTECH - PURPLE TOP) 07/08/2020 Imm Admin: COVID-19 vaccine (PFIZER-BIONTECH) 06/17/2020 Imm Admin: COVID-19 vaccine (PFIZER-BIONTECH) The patient has the following: ACTIVE PROBLEM [...] Abnormal Stress Test Coronary Artery Disease Involving [place] Coronary Artery of [place] Heart Without Angina Pectoris Presence of Drug [...] Left 03/16/2016 Dr. Wilkerson CARDIOVERSION N/A 09/19/2020 [facility] PAST SURGICAL HISTORY OF 05/16/1955 had left [...] ECG Confirmed by MD ESTELLA, PhD, SHAHEEN ([id number]) on 09/10/2021 8:08:05 PM Stress test 08/2021 [facility] 08/2021 Impression: -Right dominant system -Severe obstructive [...] 8:01 AM Pager/Contact #: documented in this encounterUniversity Hospitals [facility] History of Present illness Narrative* Mauricio Riely MD - 09/29/2021 8:30 AM EDT Thoracic and Cardiovascular Surgery SURGICAL CONSULT AND INFORMED CONSENT CHART COPY DO NOT DISCARD Patient Type: New Visit to determine Surgery: Yes PCP: Wes Rider [address] [place] [address] Referring Physician:: Mauricio Riley [address] [facility] [address] HPI: Mr. Jermaine Begum is a 76 year old male seen [...] record Mauricio Riley MD documented in this encounterUniversity [facility]als [facility]22 History of Present illness Narrative* Ulises Herreraby, MARQUEZ - 09/28/2021 1:30 PM EDT PULM FUNCTION SMARTBLOCK: Provider: Mauricio Riley MD Spirometry: 1 DLCO: 1 System: [id number] documented in this encounterUniversity Hospitals [facility]05-[facility] History of Present illness Narrative* RT Rosmery(R) [...] 2021 TIME: 10:05 AM documented in this encounterUniversity Hospitals [facility]05-02-2022 Miscellaneous Notes* Telephone Encounter - Chad Lutz [...] [facility] Appt. Date: 09/29/2021 Primary Care Provider: Wes Rider MD Definition Comments Diabetes/Insulin Pump A1-c and [...] given to pt n/a documented in this encounterUniversity Hospitals [facility]04-[facility]22 Miscellaneous Notes* Telephone Encounter - Milka Evelin, RN - 09/08/2021 11:35 AM EDT Call [...] it up that is wrong. 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 This RN called [facility] pharmacy to verify, stated it was sent to them 09/01/21. Abena at [facility] pharmacy states they do not have any requests for pt. States it needs sharon resent. documented in this encounterUniversity Hospitals [facility]04-20-2022 Miscellaneous Notes* Telephone Encounter - Bianca Peck - 09/02/2021 5:07 PM EDT inn * Telephone Encounter - Oj Nicolas - 09/02/2021 3:24 PM EDT Please register/advise Thanks documented in this encounterUniversity Hospitals [facility]04-20-2022 History of Present illness Narrative* Debbie Morrow APRN.CNP - 09/02/2021 3:30 PM EDT Pre-op visit cancelled (surgery cancelled). documented in this [facility]04-19-2022 Miscellaneous Notes* Telephone Encounter - Debbie [...] care. Debbie Morrow APRN.CNP documented in this encounterUniversity Hospitals [facility]04-17-2022 Miscellaneous Notes* Telephone Encounter - Cordelia Mcfadden [...] In Department of CARDIOLOGY. documented in this encounterUniversity Hospitals [facility]04-14-2022 Miscellaneous Notes* Telephone Encounter - Manny Monique - 08/27/2021 10:33 AM EDT Call from patient requesting refill. Pt lost his bottle of NTG yesterday. Pending Prescriptions Disp Refills NITROGLYCERIN 0.4 MG SUBLINGUAL TABLET 3 tablet 3 Sig: Dissolve 1 tablet under the tongue as needed. FOR CHEST PAIN. IF NO RELIEF CALL 911 CHELSEA: No Patient last seen 08/26/21 documented in this encounterUniversity Hospitals [facility]04-13-2022 Miscellaneous Notes* Telephone Encounter - Manny Monique [...] the patient. Pt had labs done at [facility]. Pt will have covid test at [place] location. Cath to be on 08/31 documented in this encounterUniversity Hospitals [facility]04-13-2022 History of Present illness Narrative* Marie Bautista MD - 08/26/2021 9:22 AM EDT Images from the original note were not included. [facility] Department of Cardiovascular Medicine SECTION OF INTERVENTIONAL CARDIOLOGY OUTPATIENT VISIT DATE August 26, 2021 OUTPATIENT VISIT TYPE NEW PRIMARY CARE PHYSICIAN: Wes Rider [address] [place] [address] REFERRING PHYSICIAN: Bandar Soria [address] [facility] [id number] CHIEF COMPLAINT: No chief complaint on file. HISTORY OF PRESENT ILLNESS: Mr. 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 His symptom prior to both PCI was exertional dyspnea. He described it as sucking in for air as I walk.After each PCI he had relief of symptoms. In August of 2020 he was diagnosed with atrial flutter. Again he was experiencing exertional dyspneaas well as palpitations. He had a cardioversion and was shocked x1 back to [facility]. He was started on eliquis and has had no issues since. He was recently diagnosed with prostate cancer and is scheduled for surgery at the end of August. With his cardiac history, he needed cardiac clearance from his employment assistant. He had an exercise stresstest which was suggestive of ischemia. He still experiences shortness of breath if he is walking at a fast pace. He had an episode of severe chest pain back in June while in [place]. He was out to dinner and he started to experience a sharp pain under his left breast bone that radiated to his back and left shoulder. He called his local employment assistant and was advised to go to ER. [...] Left 03/16/2016 Dr. 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 PLAN AND RECOMMENDATIONS: LH +/- on Tuesday post Easter [facility]CI reviewed IC obtained labs ekg and covid screen I personally interviewed, confirmed and edited the above information as obtained by others. CONTACT INFORMATION: documented in this encounterUniversity Hospitals [facility]04-12-2022 History of Present illness Narrative* Manny Monique - 08/25/2021 5:[address] Bautista documented in this encounterUniversity Hospitals [facility]04-11-2022 Miscellaneous Notes* Telephone Encounter - Tima Murray MD - 08/24/2021 6:51 PM EDT I spoke with Mr. Begum about his upcoming cardiology appt. Takes eliquis for a flutter. Recent Stress test was positive (per report) with local employment assistant. Pt is scheduled for RALP with Dr. Damon on 09/09. He is having his cardiologiist changed to a [facility] doctor and doesn't have an appointment yet. Discussed that his surgery date remains in place in the event he has a negative cardiac eval preop.He will let us know RUBI when he has an appt scheduled and/or results of cardiac cath. documented in this encounterUniversity Hospitals [facility]04-04-2022 History of Present illness Narrative* Quentin Hampton [...] and prostate adenocarcinoma, initial PSA 34.08, biopsy Ruth score 4 + 3 = 7 (grade [...] prostate biopsy on 06/23/2021 revealed prostate cancer, Ruth 7 (4+3), GG3, 5 of 9 cores [...] 5, biopsy (A): Adenocarcinoma of the prostate, Ruth score 3+4=7 (grade group 2), involving three [...] mid, biopsy (F): Adenocarcinoma of the prostate, Ratna score 3+3=6 (grade group 1), involving one of one core (less than 5%, less than 1 mm). 7. Prostate, left apex, biopsy (G): Adenocarcinoma of the prostate, Ruth score 4+3=7 (grade group 3), involving one [...] Left 03/16/2016 Dr. 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 Mi. ORDERS: 1. No orders entered today 2. Follow-up: As needed Signed by: Quentin Hampton MD Medical Decision Making: Problems: High: Illness/injury w/ threat to life/body function Data: Unique test result(s) reviewed: 2 Risk: High: High risk from testing/treatment Medical Decision Making Level: 5 - High cc: Wes Rider MD [address] [place] [address] Diamond Damon MD [address] [facility] [id number] documented in this encounterUniversity Hospitals [facility]06-05-2015 Evaluation note* Diagnosis Onset Date Resolution Status Preop cardiovascular exam ac [place] Essential hypertension chron ic Hyperlipidemia chronic Paroxysmal atrial fibrillation chronic History of coronary artery stent placement October 18, [address] [facility] Work Phone: Evaluation + Plan note No data available for this section [facility] Evaluation note* Diagnosis Prostate cancer (HCC) Malignant neoplasm of prostate Abnormal findings on diagnostic imaging of other parts of musculoskeletal system Malignant neoplasm of prostate (HCC) Malignant neoplasm of prostate [facility] Diagnosis Essential hypertension, benign- Primary Coronary artery disease involving [place] heart without angina pectoris, unspecified vessel or lesion type Mixed hyperlipidemia Controlled type 2 diabetes mellitus without complication, without long-term current use of insulin (HCC) Malignant neoplasm of prostate (HCC) Malignant neoplasm of prostate documented in this encounter [facility]* Diagnosis Abnormal stress test- Primary Other nonspecific abnormal cardiovascular system function study Coronary artery disease involving [place] coronary artery of [place] heart without angina pectoris Presence of drug coated stent in left circumflex coronary artery Postsurgical percutaneous transluminal coronary angioplasty status Hyperlipidemia LDL goal <70 Other and unspecified hyperlipidemia Hypertension goal BP (blood pressure) < 140/80 Unspecified essential hypertension Abnormal stress test Other nonspecific abnormal cardiovascular system function study Malignant neoplasm of prostate (HCC) Malignant neoplasm of prostate documented [facility] encounter [facility]* Diagnosis Essential hypertension, benign- Primary Abnormal stress test Other nonspecific abnormal cardiovascular system function study Malignant neoplasm of prostate (HCC) Malignant neoplasm of prostate documented in this encounter [facility]* Diagnosis Prostate cancer (HCC)- Primary Malignant neoplasm of prostate Malignant neoplasm of prostate (HCC) Malignant neoplasm of prostate documented in this encounter [facility]* Diagnosis APPOINTMENT CANCELLED- Primary documented in this encounter [facility]* Diagnosis Coronary artery disease involving [place] coronary artery of [place] heart with angina pectoris (HCC)- Primary Atrial fibrillation, unspecified type (HCC) Prostate cancer (HCC) Malignant neoplasm of prostate Hyperlipidemia, unspecified hyperlipidemia type Primary hypertension Unspecified essential hypertension Pre-operative cardiovascular examination documented in this encounter [facility]* Diagnosis 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) Atrial fibrillation, unspecified type (HCC) Prostate cancer (HCC) Malignant neoplasm of prostate Hyperlipidemia, unspecified hyperlipidemia type Primary hypertension Unspecified essential hypertension Pre-operative cardiovascular examination documented in this encounter [facility]* Diagnosis Pre-operative cardiovascular examination- Primary Coronary artery disease involving [place] coronary artery of [place] heart with angina pectoris (HCC) Atrial fibrillation, unspecified type (HCC) Prostate cancer (HCC) Malignant neoplasm of prostate Hyperlipidemia, unspecified hyperlipidemia type Primary hypertension Unspecified essential hypertension Coronary artery disease involving [place] coronary artery of [place] heart with angina pectoris (HCC) Atrial fibrillation, unspecified type (HCC) Prostate cancer (HCC) Malignant neoplasm of prostate Hyperlipidemia, unspecified hyperlipidemia type Primary hypertension Unspecified essential hypertension Pre-operative cardiovascular examination documented [facility] this encounter [facility]* Diagnosis Pre-operative cardiovascular examination- Primary Atrial fibrillation, unspecified type (HCC) Coronary artery disease involving [place] coronary artery of [place] heart with angina pectoris (HCC) Prostate cancer (HCC) Malignant neoplasm of prostate Hyperlipidemia, unspecified hyperlipidemia type Primary hypertension Unspecified essential hypertension Coronary artery disease involving [place] coronary artery of [place] heart with angina pectoris (HCC) Atrial fibrillation, unspecified type (HCC) Prostate cancer (HCC) Malignant neoplasm of prostate Hyperlipidemia, unspecified hyperlipidemia type Primary hypertension Unspecified essential hypertension Pre-operative cardiovascular examination documented in this encounter [facility]* Diagnosis Malignant neoplasm of prostate (HCC)- Primary Malignant neoplasm of prostate Coronary artery disease involving [place] coronary artery of [place] heart with angina pectoris (HCC) Atrial fibrillation, unspecified type (HCC) Prostate cancer (HCC) Malignant neoplasm of prostate Hyperlipidemia, unspecified hyperlipidemia type Primary hypertension Unspecified essential hypertension Pre-operative cardiovascular examination Malignant neoplasm of prostate (HCC) Malignant neoplasm of prostate documented in this encounter [facility]* Diagnosis Encounter for preoperative anesthesiology assessment for cardiac surgery- Primary Coronary artery disease involving [place] coronary artery of [place] heart with angina pectoris (HCC) Atrial fibrillation, unspecified type (HCC) Prostate cancer (HCC) Malignant neoplasm of prostate Hyperlipidemia, unspecified hyperlipidemia type Primary hypertension Unspecified essential hypertension Pre-operative cardiovascular examination Malignant neoplasm of prostate (HCC) Malignant neoplasm of prostate documented in this encounter [facility] note* Diagnosis Atherosclerosis- Primary Generalized and unspecified atherosclerosis Coronary artery disease involving [place] coronary artery of [place] heart with angina pectoris (HCC) Atrial fibrillation, unspecified type (HCC) Prostate cancer (HCC) Malignant neoplasm of prostate Hyperlipidemia, unspecified hyperlipidemia type Primary hypertension Unspecified essential hypertension Pre-operative cardiovascular examination Malignant neoplasm of prostate (HCC) Malignant neoplasm of prostate documented in this encounter [facility]* Diagnosis Pre-op testing- Primary Preoperative examination, unspecified Discharge planning issues Encounters for unspecified administrative purpose Coronary artery disease involving [place] coronary artery of [place] heart with angina pectoris (HCC) Atrial fibrillation, unspecified type (HCC) Prostate cancer (HCC) Malignant neoplasm of prostate Hyperlipidemia, unspecified hyperlipidemia type Primary hypertension Unspecified essential hypertension Pre-operative cardiovascular examination Malignant neoplasm of prostate (HCC) Malignant neoplasm of prostate documented in this encounter [facility] note* Diagnosis Typical atrial flutter (HCC)- Primary Atrial flutter Coronary artery disease involving [place] coronary artery of [place] heart with angina pectoris (HCC) Atrial fibrillation, unspecified type (HCC) Prostate cancer (HCC) Malignant neoplasm of prostate Hyperlipidemia, unspecified hyperlipidemia type Primary hypertension Unspecified essential hypertension Pre-operative cardiovascular examination Coronary artery disease involving [place] coronary artery of [place] heart with angina pectoris (HCC) Atrial fibrillation, unspecified type (HCC) Prostate cancer (HCC) Malignant neoplasm of prostate Hyperlipidemia, unspecified hyperlipidemia type Primary hypertension Unspecified essential hypertension Pre-operative cardiovascular examination Malignant neoplasm of prostate (HCC) Malignant neoplasm of prostate documented in this encounter [facility] note* Diagnosis S/P CABG (coronary artery bypass graft)- Primary Postsurgical aortocoronary bypass status S/P Maze operation for atrial fibrillation Other postprocedural status Malignant neoplasm of prostate (HCC) Malignant neoplasm of prostate [facility] encounter [facility] Diagnosis Surgery follow-up Follow-up examination, following unspecified surgery Malignant neoplasm of prostate (HCC) Malignant neoplasm of prostate documented [facility] this encounter [facility] Diagnosis Sinus bradycardia- Primary Other specified cardiac dysrhythmias Malignant neoplasm of prostate (HCC) Malignant neoplasm of prostate [facility] Diagnosis Malignant neoplasm of prostate (HCC)- Primary Malignant neoplasm of prostate Malignant neoplasm of prostate (HCC) Malignant neoplasm of prostate documented in this encounter [facility]* Diagnosis Pre-op evaluation- Primary Preoperative examination, unspecified Malignant neoplasm of prostate (HCC) Malignant neoplasm of prostate Malignant neoplasm of prostate (HCC) Malignant neoplasm of prostate documented [facility] this encounter [facility] Diagnosis Renal calculi Calculus of kidney documented [facility] this encounter [facility] Diagnosis Prostate cancer (HCC)- Primary Malignant neoplasm of prostate [facility] this encounter [facility] Diagnosis Prostate cancer (HCC)- Primary Malignant neoplasm of prostate [facility]* Diagnosis Screening for genitourinary condition Screening for other and unspecified genitourinary condition documented in this encounter [facility] Diagnosis Malignant neoplasm of prostate (HCC)- Primary Malignant neoplasm of prostate [facility] Diagnosis Controlled type 2 diabetes mellitus without complication, without long-term current use of insulin (HCC)- Primary [facility] Diagnosis Prostate CA (HCC)- Primary Malignant neoplasm of prostate [facility] Diagnosis Prostate cancer (HCC)- Primary Malignant neoplasm of prostate RICARDO (stress urinary incontinence), male Stress incontinence, male Erectile dysfunction following radical prostatectomy Impotence of organic origin documented [facility] this [facility] Diagnosis Abnormal stress test- Primary Other nonspecific abnormal cardiovascular system function study Coronary artery disease involving [place] coronary artery of [place] heart without angina pectoris Elevated prostate specific antigen (PSA) Hypertension goal BP (blood pressure) < 140/80 Unspecified essential hypertension Prostate cancer (HCC) Malignant neoplasm of prostate Elevated PSA Elevated prostate specific antigen (PSA) Mixed hyperlipidemia documented [facility] this encounter [facility] Diagnosis Prostate cancer (HCC)- Primary Malignant neoplasm of prostate [facility] Diagnosis Urinary incontinence, unspecified type- Primary Malignant neoplasm of prostate (HCC) Malignant neoplasm of prostate Erectile dysfunction following radical prostatectomy Impotence of organic origin documented in this encounter [facility] note* Diagnosis Urinary incontinence, unspecified type- Primary Prostate cancer (HCC) Malignant neoplasm of prostate [facility] Diagnosis Urinary incontinence, unspecified type- Primary [facility] Diagnosis Controlled type 2 diabetes mellitus without complication, without long-term current use of insulin (HCC)- Primary [facility] Diagnosis Controlled type 2 diabetes mellitus without complication, without long-term current use of insulin (HCC)- Primary Essential hypertension, benign Mixed hyperlipidemia Hernia Hernia of unspecified site of abdominal cavity without mention of obstruction or gangrene Prostate cancer (HCC) Malignant neoplasm of prostate Paroxysmal atrial fibrillation (HCC) Atrial fibrillation documented in this encounter [facility] note* Diagnosis Prostate cancer (HCC)- Primary Malignant neoplasm of prostate RICARDO (stress urinary incontinence), male Stress incontinence, male Muscle weakness Muscle weakness (generalized) documented in this encounter [facility] note* Diagnosis Prostate cancer (HCC)- Primary Malignant neoplasm of prostate documented [facility] this encounter [facility] Diagnosis Prostate cancer (HCC)- Primary Malignant neoplasm of prostate [facility] Diagnosis Prostate cancer (HCC)- Primary Malignant neoplasm of prostate [facility] Diagnosis Prostate cancer (HCC)- Primary Malignant neoplasm of prostate documented in this encounter [facility] Diagnosis RICARDO (stress urinary incontinence), male- Primary Stress incontinence, male Prostate cancer (HCC) Malignant neoplasm of prostate [facility] Diagnosis RICARDO (stress urinary incontinence), male- Primary Stress incontinence, male Prostate cancer (HCC) Malignant neoplasm of prostate documented in this encounter [facility] Diagnosis Prostate cancer (HCC)- Primary Malignant neoplasm of prostate documented in this encounter [facility] Diagnosis Prostate cancer (HCC)- Primary Malignant neoplasm of prostate documented in this encounter [facility] Diagnosis Malignant neoplasm of prostate (HCC)- Primary Malignant neoplasm of prostate documented in this encounter [facility] note* Diagnosis Prostate cancer (HCC)- Primary Malignant neoplasm of prostate documented in this encounter [facility] note* Diagnosis Controlled type 2 diabetes mellitus without complication, without long-term current use of insulin (HCC) documented in this encounter [facility] note* Diagnosis Prostate cancer (HCC)- Primary Malignant neoplasm of prostate documented in this encounter [facility] note* Diagnosis Prostate cancer (HCC)- Primary Malignant neoplasm of prostate documented in this encounter [facility] note* Diagnosis Prostate cancer (HCC)- Primary Malignant neoplasm of prostate Chronic bronchitis, unspecified chronic bronchitis type (HCC) documented in this encounter [facility] note* Diagnosis Radiotherapy follow-up- Primary Radiotherapy follow-up examination Prostate cancer (HCC) Malignant neoplasm of prostate documented in this encounter [facility] note* Diagnosis Prostate CA (HCC)- Primary Malignant neoplasm of prostate documented in this encounter [facility] note* Diagnosis Prostate cancer (HCC)- Primary Malignant neoplasm of prostate documented in this encounter [facility] note* Diagnosis Onset Date Resolution Status Lumbar radiculopathy acute Spondylolisthesis, lumbar region acute Cervical myelopathy acute Spinal stenosis of lumbar re gion with neurogenic claudication acute Spondylolisthesis, lumbar region acute [facility] Work Phone: Evaluation note* Diagnosis Prostate cancer (HCC)- Primary Malignant neoplasm of prostate documented in this encounter [facility] note* Diagnosis Prostate cancer (HCC) Malignant neoplasm of prostate documented in this encounter [facility] note* Diagnosis Prostate CA (HCC)- Primary Malignant neoplasm of prostate documented in this encounter [facility] noteNo assessment information availableWCorey Hospital Work Phone: Evaluation note* Diagnosis Prostate cancer (HCC)- Primary Malignant neoplasm of prostate [facility] Additional Instructions Please ensure the ice, perform gentle stretching. Please return for any worsening symptomsWCorey Hospital Work Phone: Hospital Discharge instructions Additional Instructions Continue your bowel regime including syad-nac-vglteey stool softeners and/or MiraLAX as needed.[facility] Work Phone: Reason for referral (narrative)* Outpatient Procedure (Routine) - Pending Review Specialty Diagnoses / Procedures Referred By Mendoza rene Referred To Contact [facility] Diagnoses Essential hypertension, benign Coronary artery disease involving [place] heart without angina pectoris, unspecified vessel or lesion type Mixed hyperlipidemia Controlled type 2 diabetes mellitus without complication, without long-term current use of insulin (HCC) Procedures ECG COMPLETE ECG ROUTINE ECG W/LEAST 12 LDS W/I&R Marie Bautsita MD [address] [place] [address] [place] [address] Referral ID Status Reason Start Date Expiration Date Visits Requested Visits Authorized [id number] Pending Review Auto-Generat ed Referral 08/25/2021 08/25/2022 1 1 [facility] for referral (narrative)* Outpatient Procedure (Routine) - Authorized Specialty Diagnoses / Procedures Referred By Contac t Referred To Contact [facility] Diagnoses Essential hypertension, benign Procedures ECG COMPLETE ECG ROUTINE ECG W/LEAST 12 LDS W/I&R Marie Bautista MD [address] [place] [address] [address] Referral ID Status Reason Start Date Expiration Date Visits Requested Visits Authorized [id number] Authorized Auto-Generat ed Referral 08/28/2021 08/28/2022 1 1 [facility] for referral (narrative)* Outpatient Procedure (Routine) - Pending Review Specialty Diagnoses / Procedures Referred By Contac t Referred To [facility] Diagnoses Coronary artery disease involving [place] coronary artery of [place] heart with angina pectoris (HCC) Atrial fibrillation, unspecified type (HCC) Prostate cancer (HCC) Hyperlipidemia, unspecified hyperlipidemia type Primary hypertension Pre-operative cardiovascular examination Procedures LUNG DIFFUSION CAPACITY (DLCO) DIFFUSING CAPACITY Mauricio Riley MD [address] [place] [address] [facility] [address] [place] [address] Referral ID Status Reason Start Date Expiration Date Visits Requested Visits Authorized [id number] Pending Review Auto-Generat ed Referral 09/14/2021 10/14/2022 1 1 * Outpatient Procedure (Routine) - Pending Review Specialty Diagnoses / Procedures Referred By Contac t Referred To Contact [facility] Diagnoses Coronary artery disease involving [place] coronary artery of [place] heart with angina pectoris (HCC) Atrial fibrillation, unspecified type (HCC) Prostate cancer (HCC) Hyperlipidemia, unspecified hyperlipidemia type Primary hypertension Pre-operative cardiovascular examination Procedures SPIROMETRY BASELINE ONLY SPMTRY W/VC EXPIRATORY ROGELIO W/WO MXML VOL VNTJ Mauricio Riley MD [address] [place] [address] [facility] [address] [place] [address] Referral ID Status Reason Start Date Expiration Date Visits Requested Visits Authorized [id number] Pending Review Auto-Generat ed Referral 09/14/2021 10/14/2022 1 1 * Outpatient Procedure (Routine) - Pending Review Specialty Diagnoses / Procedures Referred By Gavinac t Referred To Contact [facility] Diagnoses Coronary artery disease involving [place] coronary artery of [place] heart with angina pectoris (HCC) Atrial fibrillation, unspecified type (HCC) Prostate cancer (HCC) Hyperlipidemia, unspecified hyperlipidemia type Primary hypertension Pre-operative cardiovascular examination Procedures ECHO ECHO TTHRC R-T 2D W/WOM-MODE COMPL SPEC&COLR D Mauricio Riley MD [address] [place] [address] [place] [address] Referral ID Status Reason Start Date Expiration Date Visits Requested Visits Authorized [id number] Pending Review Auto-Generat ed Referral 09/14/2021 09/14/2022 1 1 * Consult, Test, Treat (Routine) - Pending Review Specialty Diagnoses / Procedures [facility] To Contact [facility] Diagnoses Coronary artery disease involving [place] coronary artery of [place] heart with angina pectoris (HCC) Atrial fibrillation, unspecified type (HCC) Prostate cancer (HCC) Hyperlipidemia, unspecified hyperlipidemia type Primary hypertension Pre-operative cardiovascular examination Procedures CARDIOTHORACIC PREOP EVALUATION OFFICE/OUTPATIENT NEW HIGH MDM 60-74 MINUTES Mauricio Riley MD [address] [id number] Referral ID Status Reason Start Date Expiration Date Visits Requested Visits Authorized [id number] Pending Review PCP Requested Referral 09/14/2021 09/14/2022 1 1 [facility] for referral (narrative)* Outpatient Procedure (Routine) - Authorized Specialty Diagnoses / Procedures [facility] Diagnoses Sinus bradycardia Procedures ECG COMPLETE ECG ROUTINE ECG W/LEAST 12 LDS W/I&R Shree Ochoa MD [address] [place] [address] [facility] [place] [address] Referral ID Status Reason Start Date Expiration Date Visits Requested Visits Authorized [id number] Authorized Auto-Generat ed Referral 11/11/2021 11/11/2022 1 1 [facility] for referral (narrative)* Diagnostic Procedure Only (Routine) - New Request Specialty Diagnoses / Procedures Referred By [facility] Referred To Contact [facility] Diagnoses Prostate cancer (HCC) Procedures NM PET/CT PROSTATE WHOLE BODY IMAGING PET IMAGING CT ATTENUATION SKULL BASE MID-THIGH Marie Beavers MD [address] [place] [address] Molecular & Functional Imaging [address] [phone] Referral ID Status Reason Start Date Expiration Date Visits Requested Visits Authorized [id number] New Request Auto-Generat ed Referral 05/25/2024 06/24/2025 1 1 [facility] for referral (narrative)No reason for referral information availableWCorey Hospital Work Phone: Reason for visit Narrative* Diagnostic Procedure Only (Routine) - Closed Specialty Diagnoses / Procedures Referred By Contac t Referred To Contact [facility]CULAR [facility]AGING Diagnoses Prostate cancer (HCC) Procedures NM PET/CT PROSTATE WHOLE BODY IMAGING PET IMAGING CT ATTENUATION SKULL BASE MID-THIGH GALLIUM GA-68 GOZETOTIDE, DIG (LOCAMETZ), 1 [facility] Marie Beavers MD [address] [id number] [facility] [address] [place] [address] Referral ID Status Reason Start Date Expiration Date V isits Requested Visits Authorized [id number] Closed Auto-Generate d Referral 05/25/2024 09/04/2024 1 1 [facility] Summary Purpose Family History No Family History Records Found Relationship Condition Age at Onset Recorded Date/T steve mother Diabetes mellitus Unknown Cardiac disease Unknown father Coronary artery disease Unknown sister Malignant neoplasm Unknown Advance Directives No Advanced Directives Records Found Advance Directive Response Recorded Date/ Time Advance Directives No September 19, 2020 12:15pm Living Will No September 19, 2020 12 :15pm Power of Director New Product No September 19, 2020 12:15pm Documents on File Type Date Recorded Patient Supervisor Sandblaster Expl anation Advance Directive(s) 08/10/2021 1:01 PM Advance Directive(s) 10/02/2018 9:12 AM Documents on File Type Date Recorded Patient Supervisor Sandblaster Expl anation Advance Directive(s) 08/10/2021 1:01 PM Advance Directive(s) 10/02/2018 9:12 AM Documents on File Type Date Recorded Patient Supervisor Sandblaster Expl anation Advance Directive(s) 08/28/2021 9:04 AM Advance Directive(s) 08/10/2021 1:01 PM Advance Directive(s) 10/02/2018 9:12 AM Documents on File Type Date Recorded Patient Supervisor Sandblaster Expl anation Advance Directive(s) 08/28/2021 9:04 AM Advance Directive(s) 08/10/2021 1:01 PM Advance Directive(s) 10/02/2018 9:12 AM Documents on File Type Date Recorded Patient Supervisor Sandblaster Expl anation Advance Directive(s) 09/17/2021 9:08 AM Advance Directive(s) 08/28/2021 9:04 AM Advance Directive(s) 08/10/2021 1:01 PM Advance Directive(s) 10/02/2018 9:12 AM Documents on File Type Date Recorded Patient Supervisor Sandblaster Expl anation Advance Directive(s) 09/17/2021 9:08 AM Advance Directive(s) 08/28/2021 9:04 AM Advance Directive(s) 08/10/2021 1:01 PM Advance Directive(s) 10/02/2018 9:12 AM Documents on File Type Date Recorded Patient Supervisor Sandblaster Expl anation Advance Directive(s) 09/29/2021 10:40 AM Advance Directive(s) 09/28/2021 6:40 PM Advance Directive(s) 09/17/2021 9:08 AM Advance Directive(s) 08/28/2021 9:04 AM Advance Directive(s) 08/10/2021 1:01 PM Advance Directive(s) 10/02/2018 9:12 AM Documents on File Type Date Recorded Patient Supervisor Sandblaster Expl anation Advance Directive(s) 09/29/2021 10:40 AM Advance Directive(s) 09/28/2021 6:40 PM Advance Directive(s) 09/17/2021 9:08 AM Advance Directive(s) 08/28/2021 9:04 AM Advance Directive(s) 08/10/2021 1:01 PM Advance Directive(s) 10/02/2018 9:12 AM Advance Directive Response Recorded Date/ Time Advance Directives on File No Augus t 2021 2:22pm Advance Directives No September 19, 2020 12:15pm Living Will No December 23 2:22pm Power of Director New Product No December 23, 2 022 2:22pm Advance Directive Response Recorded Date/ Time Advance Directives No September 19, 2020 12:15pm Living Will No December 23 2:22pm Power of Director New Product No December 23, 2 022 2:22pm Advance Directive Response Recorded Date/ Time Advance Directives No September 19, 2020 11:15am Living Will No April 04, 2 023 4:04pm Power of Director New Product No April 04, 2023 4:04pm Advance Directive Response Recorded Date/ Time Advance Directives No August 07, 024 1:20pm Living Will No August 08, 2023 1:20pm Power of Director New Product No August 07 1:20pm Advance Directive Response Recorded Date/ Time Living Will No May 03, 024 12:13pm Do you have a Healthcare Power of Director New Product? No May 03, 2024 12:13pm Advance Directives No April 12:13pm Advance Directive Response Recorded Date/ Time Do you have a Healthcare Power of Director New Product? No November 03, 2024 10:26pm Advance Directives No April 12:13pm Chief Complaint [...] Prostate cancer Atherosclerosis of coronary artery of [place] heart without angina pectoris Essential hypertension Hyperlipidemia Paroxysmal atrial fibrillation History of coronary artery stent placement Chief Complaint Amb Documentation HX OF AFIB DIZZINESS FU FROM [facility] S/P CABG S/P CABG Reason for Visit H/O coronary artery bypass surgery Prostate cancer Atherosclerosis of coronary artery of [place] heart without angina pectoris Essential hypertension Hyperlipidemia Paroxysmal atrial fibrillation History of coronary artery stent placement Chief Complaint S/P CABG S/P CABG 3 M FU S/P CABG S/P CABG Reason for Visit H/O coronary artery bypass surgery Atherosclerosis of coronary artery of [place] heart without angina pectoris Essential hypertension Hyperlipidemia [...] 10:27am H/O coronary artery bypass surgery Decem 2023 10:27am Dilated aortic root May 03, 2024 10:27am Essential hypertension May 03 10:27am Hyperlipidemia May 03, 2024 10:27am Paroxysmal atrial fibrillation May 03, 2024 10:27am History of coronary artery stent placeme nt May 03, 2024 10:27am Chief Complaint Admit Date CONSTIPATION November 03, 2024 10:1 1pm Reason for Referral Specialty Diagnoses / Procedures Referred By Mendoza rene Referred To Contact [facility] Diagnoses Secondary malignant neoplasm of brain (HCC) Procedures MRI THORACIC SPINE WO/W IVCON MRI SPINAL CANAL THORACIC W/O & W/CONTR MATRL Diamond Damon MD [address] [place] [id number] [facility] Referral ID Status Reason Start Date Expiration Date V isits Requested Visits Authorized [id number] Closed Auto-Generate d Referral 09/03/2021 10/03/2022 1 1 Specialty Diagnoses / Procedures Referred By Mendoza rene Referred To Contact Diagnoses Malignant neoplasm of prostate (HCC) Procedures REFER TO PACC - PRE ANESTHESIA CONSULTATION CLINIC OFFICE/OUTPATIENT [facility] 60-74 MINUTES Diamond Damon MD [address] [place] [address] Referral ID Status Reason Start Date Expiration Date Visits Requested Visits Authorized [id number] Pending Review PCP Requested Referral 09/29/2021 09/28/2022 1 1 Specialty Diagnoses / Procedures Referred By Mendoza rene Referred To Contact [facility] Diagnoses Prostate cancer (HCC) Procedures PT REHAB FOLLOW UP ORDER THERAPEUTIC EXERCISES RE, EA 15 MIN. Jacquelyn Heller, PT [address] [place] [address] [address] Referral ID Status Reason Start Date Expiration Date Visits Requested Visits Authorized [id number] Pending Review PCP Requested Referral Auto-Generate d Referral 06/04/2022 09/02/2022 1 1 Specialty Diagnoses / Procedures Referred By Contac t Referred To Contact [facility] Diagnoses Prostate cancer (HCC) Procedures CONSULT TO PHYSICAL THERAPY PHYSICAL THERAPY EVALUATION HIGH COMPLEX 45 MINS Quentin Hampton MD [address] [place] [address] [address] [address] [address] Referral ID Status Reason Start Date Expiration Date Visits Requested Visits Authorized [id number] Pending Review Auto-Generat ed Referral 07/02/2022 06/01/2023 1 1 Specialty Diagnoses / Procedures Referred By Contac t Referred To Contact Diagnoses Prostate cancer (HCC) Procedures CT SIM PLANNING RADIATION ONCOLOGY THER RAD SIMULAJ-AIDED FIELD SETTING COMPLEX Artur Mi MD, [address] [place] [address] Referral ID Status Reason Start Date Expiration Date Visits Requested Visits Authorized [id number] Pending Review PCP Requested Referral 08/03/2022 10/31/2022 1 1 Specialty Diagnoses / Procedures Referred By Contac t Referred To Contact [facility] Diagnoses RICARDO (stress urinary incontinence), male Prostate cancer (HCC) Procedures PT REHAB FOLLOW UP ORDER THERAPEUTIC EXERCISES RE, EA 15 MIN. Jacquelyn Heller, SANTOSH [address] [place] [address] [address] Referral ID Status Reason Start Date Expiration Date Visits Requested Visits Authorized [id number] Pending Review PCP Requested Referral Auto-Generate d [...] section and content) DATE CREATED AUTHOR 11/04/2017 [facility] DATE CREATED AUTHOR AUTHOR'S ORGANIZ ATION 11/04/2017 [facility] DATE CREATED AUTHOR AUTHOR'S ORGANIZ ATION 11/08/2017 [facility] DATE CREATED AUTHOR AUTHOR'S ORGANIZ ATION 11/03/2024 [facility] DATE CREATED AUTHOR AUTHOR'S ORGANIZ ATION 11/10/2024 [facility] DATE CREATED AUTHOR AUTHOR'S ORGANIZ ATION 12/01/2024 [facility] Goals (unrecognized section and content) Goals may [...] alternate section No data available for this sectionGoals may be documented in an alternate section Source Comments (unrecognize d section and content) In the event this informatio n is protected by the Federal Confidentiality of Alcohol and Drug Abuse Patient Records regulations: The Federal rules restrict any use of the information to criminally investigate or prosecute any alcohol or drug abuse patient.[facility] the event this information is protected by the Federal Confidentiality of Alcohol and Drug Abuse Patient Records regulations: The Federal rules restrict any use of the information to criminally investigate or prosecute any alcohol or drug abuse patient.[facility] the event this information is protected by the Federal Confidentiality of Alcohol and Drug Abuse Patient Records regulations: The Federal rules restrict any use of the information to criminally investigate or prosecute any alcohol or drug abuse patient.[facility] the event this information is protected by the Federal Confidentiality of Alcohol and Drug Abuse Patient Records regulations: The Federal rules restrict any use of the information to criminally investigate or prosecute any alcohol or drug abuse patient.[facility] Center[facility] the event this information is protected by the Federal Confidentiality of Alcohol and Drug Abuse Patient Records regulations: The Federal rules restrict any use of the information to criminally investigate or prosecute any alcohol or drug abuse patient.[facility] Center[facility] the event this information is protected by the Federal Confidentiality of Alcohol and Drug Abuse Patient Records regulations: The Federal rules restrict any use of the information to criminally investigate or prosecute any alcohol or drug abuse patient.[facility] Center[facility] the event this information is protected by the Federal Confidentiality of Alcohol and Drug Abuse Patient Records regulations: The Federal rules restrict any use of the information to criminally investigate or prosecute any alcohol or drug abuse patient.[facility] CenterIn the event this information is protected by the Federal Confidentiality of Alcohol and Drug Abuse Patient Records regulations: The Federal rules restrict any use of the information to criminally investigate or prosecute any alcohol or drug abuse patient.[facility] CenterIn the event this information is protected by the Federal Confidentiality of Alcohol and Drug Abuse Patient Records regulations: The Federal rules restrict any use of the information to criminally investigate or prosecute any alcohol or drug abuse patient.[facility] CenterIn the event this information is protected by the Federal Confidentiality of Alcohol and Drug Abuse Patient Records regulations: The Federal rules restrict any use of the information to criminally investigate or prosecute any alcohol or drug abuse patient.[facility] CenterIn the event this information is protected by the Federal Confidentiality of Alcohol and Drug Abuse Patient Records regulations: The Federal rules restrict any use of the information to criminally investigate or prosecute any alcohol or drug abuse patient.[facility] CenterIn the event this information is protected by the Federal Confidentiality of Alcohol and Drug Abuse Patient Records regulations: The Federal rules restrict any use of the information to criminally investigate or prosecute any alcohol or drug abuse patient.[facility] CenterIn the event this information is protected by the Federal Confidentiality of Alcohol and Drug Abuse Patient Records regulations: The Federal rules restrict any use of the information to criminally investigate or prosecute any alcohol or drug abuse patient.[facility] CenterIn the event this information is protected by the Federal Confidentiality of Alcohol and Drug Abuse Patient Records regulations: The Federal rules restrict any use of the information to criminally investigate or prosecute any alcohol or drug abuse patient.[facility] CenterIn the event this information is protected by the Federal Confidentiality of Alcohol and Drug Abuse Patient Records regulations: The Federal rules restrict any use of the information to criminally investigate or prosecute any alcohol or drug abuse patient.[facility] CenterIn the event this information is protected by the Federal Confidentiality of Alcohol and Drug Abuse Patient Records regulations: The Federal rules restrict any use of the information to criminally investigate or prosecute any alcohol or drug abuse patient.[facility] CenterIn the event this information is protected by the Federal Confidentiality of Alcohol and Drug Abuse Patient Records regulations: The Federal rules restrict any use of the information to criminally investigate or prosecute any alcohol or drug abuse patient.[facility] CenterIn the event this information is protected by the Federal Confidentiality of Alcohol and Drug Abuse Patient Records regulations: The Federal rules restrict any use of the information to criminally investigate or prosecute any alcohol or drug abuse patient.[facility] CenterIn the event this information is protected by the Federal Confidentiality of Alcohol and Drug Abuse Patient Records regulations: The Federal rules restrict any use of the information to criminally investigate or prosecute any alcohol or drug abuse patient.[facility] CenterIn the event this information is protected by the Federal Confidentiality of Alcohol and Drug Abuse Patient Records regulations: The Federal rules restrict any use of the information to criminally investigate or prosecute any alcohol or drug abuse patient.[facility] CenterIn the event this information is protected by the Federal Confidentiality of Alcohol and Drug Abuse Patient Records regulations: The Federal rules restrict any use of the information to criminally investigate or prosecute any alcohol or drug abuse patient.[facility] CenterIn the event this information is protected by the Federal Confidentiality of Alcohol and Drug Abuse Patient Records regulations: The Federal rules restrict any use of the information to criminally investigate or prosecute any alcohol or drug abuse patient.[facility] CenterIn the event this information is protected by the Federal Confidentiality of Alcohol and Drug Abuse Patient Records regulations: The Federal rules restrict any use of the information to criminally investigate or prosecute any alcohol or drug abuse patient.[facility] CenterIn the event this information is protected by the Federal Confidentiality of Alcohol and Drug Abuse Patient Records regulations: The Federal rules restrict any use of the information to criminally investigate or prosecute any alcohol or drug abuse patient.[facility] CenterIn the event this information is protected by the Federal Confidentiality of Alcohol and Drug Abuse Patient Records regulations: The Federal rules restrict any use of the information to criminally investigate or prosecute any alcohol or drug abuse patient.[facility] CenterIn the event this information is protected by the Federal Confidentiality of Alcohol and Drug Abuse Patient Records regulations: The Federal rules restrict any use of the information to criminally investigate or prosecute any alcohol or drug abuse patient.[facility] CenterIn the event this information is protected by the Federal Confidentiality of Alcohol and Drug Abuse Patient Records regulations: The Federal rules restrict any use of the information to criminally investigate or prosecute any alcohol or drug abuse patient.[facility] CenterIn the event this information is protected by the Federal Confidentiality of Alcohol and Drug Abuse Patient Records regulations: The Federal rules restrict any use of the information to criminally investigate or prosecute any alcohol or drug abuse patient.[facility] CenterIn the event this information is protected by the Federal Confidentiality of Alcohol and Drug Abuse Patient Records regulations: The Federal rules restrict any use of the information to criminally investigate or prosecute any alcohol or drug abuse patient.[facility] CenterIn the event this information is protected by the Federal Confidentiality of Alcohol and Drug Abuse Patient Records regulations: The Federal rules restrict any use of the information to criminally investigate or prosecute any alcohol or drug abuse patient.[facility] CenterIn the event this information is protected by the Federal Confidentiality of Alcohol and Drug Abuse Patient Records regulations: The Federal rules restrict any use of the information to criminally investigate or prosecute any alcohol or drug abuse patient.[facility] CenterIn the event this information is protected by the Federal Confidentiality of Alcohol and Drug Abuse Patient Records regulations: The Federal rules restrict any use of the information to criminally investigate or prosecute any alcohol or drug abuse patient.[facility] CenterIn the event this information is protected by the Federal Confidentiality of Alcohol and Drug Abuse Patient Records regulations: The Federal rules restrict any use of the information to criminally investigate or prosecute any alcohol or drug abuse patient.[facility] CenterIn the event this information is protected by the Federal Confidentiality of Alcohol and Drug Abuse Patient Records regulations: The Federal rules restrict any use of the information to criminally investigate or prosecute any alcohol or drug abuse patient.[facility] CenterIn the event this information is protected by the Federal Confidentiality of Alcohol and Drug Abuse Patient Records regulations: The Federal rules restrict any use of the information to criminally investigate or prosecute any alcohol or drug abuse patient.[facility] CenterIn the event this information is protected by the Federal Confidentiality of Alcohol and Drug Abuse Patient Records regulations: The Federal rules restrict any use of the information to criminally investigate or prosecute any alcohol or drug abuse patient.[facility] CenterIn the event this information is protected by the Federal Confidentiality of Alcohol and Drug Abuse Patient Records regulations: The Federal rules restrict any use of the information to criminally investigate or prosecute any alcohol or drug abuse patient.[facility] CenterIn the event this information is protected by the Federal Confidentiality of Alcohol and Drug Abuse Patient Records regulations: The Federal rules restrict any use of the information to criminally investigate or prosecute any alcohol or drug abuse patient.[facility] CenterIn the event this information is protected by the Federal Confidentiality of Alcohol and Drug Abuse Patient Records regulations: The Federal rules restrict any use of the information to criminally investigate or prosecute any alcohol or drug abuse patient.[facility] CenterIn the event this information is protected by the Federal Confidentiality of Alcohol and Drug Abuse Patient Records regulations: The Federal rules restrict any use of the information to criminally investigate or prosecute any alcohol or drug abuse patient.[facility] CenterIn the event this information is protected by the Federal Confidentiality of Alcohol and Drug Abuse Patient Records regulations: The Federal rules restrict any use of the information to criminally investigate or prosecute any alcohol or drug abuse patient.[facility] CenterIn the event this information is protected by the Federal Confidentiality of Alcohol and Drug Abuse Patient Records regulations: The Federal rules restrict any use of the information to criminally investigate or prosecute any alcohol or drug abuse patient.[facility] CenterIn the event this information is protected by the Federal Confidentiality of Alcohol and Drug Abuse Patient Records regulations: The Federal rules restrict any use of the information to criminally investigate or prosecute any alcohol or drug abuse patient.[facility] CenterIn the event this information is protected by the Federal Confidentiality of Alcohol and Drug Abuse Patient Records regulations: The Federal rules restrict any use of the information to criminally investigate or prosecute any alcohol or drug abuse patient.[facility] CenterIn the event this information is protected by the Federal Confidentiality of Alcohol and Drug Abuse Patient Records regulations: The Federal rules restrict any use of the information to criminally investigate or prosecute any alcohol or drug abuse patient.[facility] CenterIn the event this information is protected by the Federal Confidentiality of Alcohol and Drug Abuse Patient Records regulations: The Federal rules restrict any use of the information to criminally investigate or prosecute any alcohol or drug abuse patient.[facility] CenterIn the event this information is protected by the Federal Confidentiality of Alcohol and Drug Abuse Patient Records regulations: The Federal rules restrict any use of the information to criminally investigate or prosecute any alcohol or drug abuse patient.[facility] CenterIn the event this information is protected by the Federal Confidentiality of Alcohol and Drug Abuse Patient Records regulations: The Federal rules restrict any use of the information to criminally investigate or prosecute any alcohol or drug abuse patient.[facility] CenterIn the event this information is protected by the Federal Confidentiality of Alcohol and Drug Abuse Patient Records regulations: The Federal rules restrict any use of the information to criminally investigate or prosecute any alcohol or drug abuse patient.[facility] CenterIn the event this information is protected by the Federal Confidentiality of Alcohol and Drug Abuse Patient Records regulations: The Federal rules restrict any use of the information to criminally investigate or prosecute any alcohol or drug abuse patient.[facility] CenterIn the event this information is protected by the Federal Confidentiality of Alcohol and Drug Abuse Patient Records regulations: The Federal rules restrict any use of the information to criminally investigate or prosecute any alcohol or drug abuse patient.[facility] CenterIn the event this information is protected by the Federal Confidentiality of Alcohol and Drug Abuse Patient Records regulations: The Federal rules restrict any use of the information to criminally investigate or prosecute any alcohol or drug abuse patient.[facility] CenterIn the event this information is protected by the Federal Confidentiality of Alcohol and Drug Abuse Patient Records regulations: The Federal rules restrict any use of the information to criminally investigate or prosecute any alcohol or drug abuse patient.[facility] CenterIn the event this information is protected by the Federal Confidentiality of Alcohol and Drug Abuse Patient Records regulations: The Federal rules restrict any use of the information to criminally investigate or prosecute any alcohol or drug abuse patient.[facility] CenterIn the event this information is protected by the Federal Confidentiality of Alcohol and Drug Abuse Patient Records regulations: The Federal rules restrict any use of the information to criminally investigate or prosecute any alcohol or drug abuse patient.[facility] CenterIn the event this information is protected by the Federal Confidentiality of Alcohol and Drug Abuse Patient Records regulations: The Federal rules restrict any use of the information to criminally investigate or prosecute any alcohol or drug abuse patient.[facility] CenterIn the event this information is protected by the Federal Confidentiality of Alcohol and Drug Abuse Patient Records regulations: The Federal rules restrict any use of the information to criminally investigate or prosecute any alcohol or drug abuse patient.[facility] CenterIn the event this information is protected by the Federal Confidentiality of Alcohol and Drug Abuse Patient Records regulations: The Federal rules restrict any use of the information to criminally investigate or prosecute any alcohol or drug abuse patient.[facility] CenterIn the event this information is protected by the Federal Confidentiality of Alcohol and Drug Abuse Patient Records regulations: The Federal rules restrict any use of the information to criminally investigate or prosecute any alcohol or drug abuse patient.[facility] CenterIn the event this information is protected by the Federal Confidentiality of Alcohol and Drug Abuse Patient Records regulations: The Federal rules restrict any use of the information to criminally investigate or prosecute any alcohol or drug abuse patient.[facility] CenterIn the event this information is protected by the Federal Confidentiality of Alcohol and Drug Abuse Patient Records regulations: The Federal rules restrict any use of the information to criminally investigate or prosecute any alcohol or drug abuse patient.[facility] CenterIn the event this information is protected by the Federal Confidentiality of Alcohol and Drug Abuse Patient Records regulations: The Federal rules restrict any use of the information to criminally investigate or prosecute any alcohol or drug abuse patient.[facility] CenterIn the event this information is protected by the Federal Confidentiality of Alcohol and Drug Abuse Patient Records regulations: The Federal rules restrict any use of the information to criminally investigate or prosecute any alcohol or drug abuse patient.[facility] CenterIn the event this information is protected by the Federal Confidentiality of Alcohol and Drug Abuse Patient Records regulations: The Federal rules restrict any use of the information to criminally investigate or prosecute any alcohol or drug abuse patient.[facility] CenterIn the event this information is protected by the Federal Confidentiality of Alcohol and Drug Abuse Patient Records regulations: The Federal rules restrict any use of the information to criminally investigate or prosecute any alcohol or drug abuse patient.[facility] CenterIn the event this information is protected by the Federal Confidentiality of Alcohol and Drug Abuse Patient Records regulations: The Federal rules restrict any use of the information to criminally investigate or prosecute any alcohol or drug abuse patient.[facility] CenterIn the event this information is protected by the Federal Confidentiality of Alcohol and Drug Abuse Patient Records regulations: The Federal rules restrict any use of the information to criminally investigate or prosecute any alcohol or drug abuse patient.[facility] CenterIn the event this information is protected by the Federal Confidentiality of Alcohol and Drug Abuse Patient Records regulations: The Federal rules restrict any use of the information to criminally investigate or prosecute any alcohol or drug abuse patient.[facility] CenterIn the event this information is protected by the Federal Confidentiality of Alcohol and Drug Abuse Patient Records regulations: The Federal rules restrict any use of the information to criminally investigate or prosecute any alcohol or drug abuse patient.[facility] CenterIn the event this information is protected by the Federal Confidentiality of Alcohol and Drug Abuse Patient Records regulations: The Federal rules restrict any use of the information to criminally investigate or prosecute any alcohol or drug abuse patient.[facility] CenterIn the event this information is protected by the Federal Confidentiality of Alcohol and Drug Abuse Patient Records regulations: The Federal rules restrict any use of the information to criminally investigate or prosecute any alcohol or drug abuse patient.[facility] CenterIn the event this information is protected by the Federal Confidentiality of Alcohol and Drug Abuse Patient Records regulations: The Federal rules restrict any use of the information to criminally investigate or prosecute any alcohol or drug abuse patient.[facility] CenterIn the event this information is protected by the Federal Confidentiality of Alcohol and Drug Abuse Patient Records regulations: The Federal rules restrict any use of the information to criminally investigate or prosecute any alcohol or drug abuse patient.[facility] CenterIn the event this information is protected by the Federal Confidentiality of Alcohol and Drug Abuse Patient Records regulations: The Federal rules restrict any use of the information to criminally investigate or prosecute any alcohol or drug abuse patient.[facility] CenterIn the event this information is protected by the Federal Confidentiality of Alcohol and Drug Abuse Patient Records regulations: The Federal rules restrict any use of the information to criminally investigate or prosecute any alcohol or drug abuse patient.[facility] CenterIn the event this information is protected by the Federal Confidentiality of Alcohol and Drug Abuse Patient Records regulations: The Federal rules restrict any use of the information to criminally investigate or prosecute any alcohol or drug abuse patient.[facility] CenterIn the event this information is protected by the Federal Confidentiality of Alcohol and Drug Abuse Patient Records regulations: The Federal rules restrict any use of the information to criminally investigate or prosecute any alcohol or drug abuse patient.[facility] CenterIn the event this information is protected by the Federal Confidentiality of Alcohol and Drug Abuse Patient Records regulations: The Federal rules restrict any use of the information to criminally investigate or prosecute any alcohol or drug abuse patient.[facility] CenterIn the event this information is protected by the Federal Confidentiality of Alcohol and Drug Abuse Patient Records regulations: The Federal rules restrict any use of the information to criminally investigate or prosecute any alcohol or drug abuse patient.[facility] CenterIn the event this information is protected by the Federal Confidentiality of Alcohol and Drug Abuse Patient Records regulations: The Federal rules restrict any use of the information to criminally investigate or prosecute any alcohol or drug abuse patient.[facility] CenterIn the event this information is protected by the Federal Confidentiality of Alcohol and Drug Abuse Patient Records regulations: The Federal rules restrict any use of the information to criminally investigate or prosecute any alcohol or drug abuse patient.[facility] CenterIn the event this information is protected by the Federal Confidentiality of Alcohol and Drug Abuse Patient Records regulations: The Federal rules restrict any use of the information to criminally investigate or prosecute any alcohol or drug abuse patient.[facility] CenterIn the event this information is protected by the Federal Confidentiality of Alcohol and Drug Abuse Patient Records regulations: The Federal rules restrict any use of the information to criminally investigate or prosecute any alcohol or drug abuse patient.[facility] CenterIn the event this information is protected by the Federal Confidentiality of Alcohol and Drug Abuse Patient Records regulations: The Federal rules restrict any use of the information to criminally investigate or prosecute any alcohol or drug abuse patient.[facility] CenterIn the event this information is protected by the Federal Confidentiality of Alcohol and Drug Abuse Patient Records regulations: The Federal rules restrict any use of the information to criminally investigate or prosecute any alcohol or drug abuse patient.[facility] CenterIn the event this information is protected by the Federal Confidentiality of Alcohol and Drug Abuse Patient Records regulations: The Federal rules restrict any use of the information to criminally investigate or prosecute any alcohol or drug abuse patient.[facility] [facility] CenterIn the event this information is protected by the Federal Confidentiality of Alcohol and Drug Abuse Patient Records regulations: The Federal rules restrict any use of the information to criminally investigate or prosecute any alcohol or drug abuse patient.[facility] CenterIn the event this information is protected by the Federal Confidentiality of Alcohol and Drug Abuse Patient Records regulations: The Federal rules restrict any use of the information to criminally investigate or prosecute any alcohol or drug abuse patient.[facility] CenterIn the event this information is protected by the Federal Confidentiality of Alcohol and Drug Abuse Patient Records regulations: The Federal rules restrict any use of the information to criminally investigate or prosecute any alcohol or drug abuse patient.[facility] CenterIn the event this information is protected by the Federal Confidentiality of Alcohol and Drug Abuse Patient Records regulations: The Federal rules restrict any use of the information to criminally investigate or prosecute any alcohol or drug abuse patient.[facility] CenterIn the event this information is protected by the Federal Confidentiality of Alcohol and Drug Abuse Patient Records regulations: The Federal rules restrict any use of the information to criminally investigate or prosecute any alcohol or drug abuse patient.[facility] CenterIn the event this information is protected by the Federal Confidentiality of Alcohol and Drug Abuse Patient Records regulations: The Federal rules restrict any use of the information to criminally investigate or prosecute any alcohol or drug abuse patient.[facility] CenterIn the event this information is protected by the Federal Confidentiality of Alcohol and Drug Abuse Patient Records regulations: The Federal rules restrict any use of the information to criminally investigate or prosecute any alcohol or drug abuse patient.[facility] CenterIn the event this information is protected by the Federal Confidentiality of Alcohol and Drug Abuse Patient Records regulations: The Federal rules restrict any use of the information to criminally investigate or prosecute any alcohol or drug abuse patient.[facility] CenterIn the event this information is protected by the Federal Confidentiality of Alcohol and Drug Abuse Patient Records regulations: The Federal rules restrict any use of the information to criminally investigate or prosecute any alcohol or drug abuse patient.[facility] CenterIn the event this information is protected by the Federal Confidentiality of Alcohol and Drug Abuse Patient Records regulations: The Federal rules restrict any use of the information to criminally investigate or prosecute any alcohol or drug abuse patient.[facility] CenterIn the event this information is protected by the Federal Confidentiality of Alcohol and Drug Abuse Patient Records regulations: The Federal rules restrict any use of the information to criminally investigate or prosecute any alcohol or drug abuse patient.[facility] CenterIn the event this information is protected by the Federal Confidentiality of Alcohol and Drug Abuse Patient Records regulations: The Federal rules restrict any use of the information to criminally investigate or prosecute any alcohol or drug abuse patient.[facility] CenterIn the event this information is protected by the Federal Confidentiality of Alcohol and Drug Abuse Patient Records regulations: The Federal rules restrict any use of the information to criminally investigate or prosecute any alcohol or drug abuse patient.[facility] CenterIn the event this information is protected by the Federal Confidentiality of Alcohol and Drug Abuse Patient Records regulations: The Federal rules restrict any use of the information to criminally investigate or prosecute any alcohol or drug abuse patient.[facility] CenterIn the event this information is protected by the Federal Confidentiality of Alcohol and Drug Abuse Patient Records regulations: The Federal rules restrict any use of the information to criminally investigate or prosecute any alcohol or drug abuse patient.[facility] CenterIn the event this information is protected by the Federal Confidentiality of Alcohol and Drug Abuse Patient Records regulations: The Federal rules restrict any use of the information to criminally investigate or prosecute any alcohol or drug abuse patient.[facility] CenterIn the event this information is protected by the Federal Confidentiality of Alcohol and Drug Abuse Patient Records regulations: The Federal rules restrict any use of the information to criminally investigate or prosecute any alcohol or drug abuse patient.[facility] CenterIn the event this information is protected by the Federal Confidentiality of Alcohol and Drug Abuse Patient Records regulations: The Federal rules restrict any use of the information to criminally investigate or prosecute any alcohol or drug abuse patient.[facility] CenterIn the event this information is protected by the Federal Confidentiality of Alcohol and Drug Abuse Patient Records regulations: The Federal rules restrict any use of the information to criminally investigate or prosecute any alcohol or drug abuse patient.[facility] CenterIn the event this information is protected by the Federal Confidentiality of Alcohol and Drug Abuse Patient Records regulations: The Federal rules restrict any use of the information to criminally investigate or prosecute any alcohol or drug abuse patient.[facility] CenterIn the event this information is protected by the Federal Confidentiality of Alcohol and Drug Abuse Patient Records regulations: The Federal rules restrict any use of the information to criminally investigate or prosecute any alcohol or drug abuse patient.[facility] Reason for Visit (unrecogniz ed section and content) Reason Comments PT Progress Note Specialty Diagnoses / Procedures Referred By Mendoza rene Referred To Contact [facility] Diagnoses Prostate cancer (HCC) Procedures CONSULT TO PHYSICAL THERAPY PHYSICAL THERAPY EVALUATION HIGH COMPLEX 45 MINS Quentin Hampton MD [address] [place] [address] [facility] [address] [place] [id number] Referral ID Status Reason Start Date Expiration Date Visits Requested Visits Authorized [id number] Authorized Auto-Generat ed Referral 05/16/2022 05/15/2023 20 20 Specialty Diagnoses / Procedures Referred By Contac t Referred To Contact Radiation Oncology Diagnoses Prostate cancer (HCC) Abnormal findings on diagnostic imaging of other parts of musculoskeletal system Procedures RAD/ONC CONSULT OFFICE/OUTPATIENT NEW HIGH MDM 60-74 MINUTES Diamond Damon MD [address] [place] [id number] Referral ID Status Reason Start Date Expiration Date Visits Requested Visits Authorized [id number] Pending Review PCP Requested Referral 08/04/2021 08/04/2022 1 1 Reason Comments Patient Question Reason Comments Future Appointment Reason Onset Date Comments Refill Request 08/27/2021 Reason Comments New Patient Reason Comments Patient Education Reason Comments Returning Patient's Call Reason Comments Insurance Authorization Reason Comments Appointment Cancelled Reason Comments Medication Problem Reason Comments Schedule Surgery Pre-op Checklist Specialty Diagnoses / Procedures Referred By Contac t Referred To Contact MR IMAGING Diagnoses Secondary malignant neoplasm of brain (HCC) Procedures MRI THORACIC SPINE WO/W IVCON MRI SPINAL CANAL THORACIC W/O & W/CONTR MATRL Diaomnd Damon MD [address] [place] [address] Mr Imaging Referral ID Status Reason Start Date Expiration Date V isits Requested Visits Authorized [id number] Closed Auto-Generate d Referral 09/03/2021 10/03/2022 1 1 Reason Comments Spirometry Specialty Diagnoses / Procedures Referred By Contac t Referred To Contact [facility] Diagnoses Coronary artery disease involving [place] coronary artery of [place] heart with angina pectoris (HCC) Atrial fibrillation, unspecified type (HCC) Prostate cancer (HCC) Hyperlipidemia, unspecified hyperlipidemia type Primary hypertension Pre-operative cardiovascular examination Procedures SPIROMETRY BASELINE ONLY SPMTRY W/VC EXPIRATORY ROGELIO W/[place] [address] [place] [address] [facility] [address] [place] [address] Referral ID Status Reason Start Date Expiration Date V isits Requested Visits Authorized [id number] Closed Auto-Generate d Referral 09/14/2021 10/14/2022 1 1 Specialty Diagnoses / Procedures Referred By Contac t Referred To Contact [facility] Diagnoses Coronary artery disease involving [place] coronary artery of [place] heart with angina pectoris (HCC) Atrial fibrillation, unspecified type (HCC) Prostate cancer (HCC) Hyperlipidemia, unspecified hyperlipidemia type Primary hypertension Pre-operative cardiovascular examination Procedures LUNG DIFFUSION CAPACITY (DLCO) DIFFUSING CAPACITY Mauricio Riley MD [address] [place] [address] [facility] [address] [place] [address] Referral ID Status Reason Start Date Expiration Date V isits Requested Visits Authorized [id number] Closed Auto-Generate d Referral 09/14/2021 10/14/2022 1 1 Specialty Diagnoses / Procedures Referred By Contac t Referred To Contact Cardiac Surg Diagnoses Coronary artery disease involving [place] coronary artery of [place] heart with angina pectoris (HCC) Atrial fibrillation, unspecified type (HCC) Prostate cancer (HCC) Hyperlipidemia, unspecified hyperlipidemia type Primary hypertension Pre-operative cardiovascular examination Procedures CARDIOTHORACIC PREOP EVALUATION OFFICE/OUTPATIENT [facility] 60-74 MINUTES Mauricio Riley MD [address] [place] [address] Referral ID Status Reason Start Date Expiration Date Visits Requested Visits Authorized [id number] Pending Review PCP Requested Referral 09/14/2021 09/14/2022 1 1 Reason Onset Date Comments Transition Of Care 10/07/2021 TCM Initial [facility] Discharge 10/06/21 Reason Comments Follow Up Phone Call f/u call first a ttempt Reason Comments Post Op Reason Comments Radio Main J1 Reason Comments Orders Reason Onset Date Comments Transition Of Care 10/07/2021 Pharmacy - [facility] Discharge 10/06/2021 Reason Onset Date Comments Transition Of Care 10/25/2021 TCM f/u [facility] Discharge 10/06/21 Reason Comments Post Dc Program Call - Needs Attn Reason Onset Date Comments Transition Of Care 11/04/2021 TCM f/u [facility] Discharge 10/06/21 Reason Comments Received Outside Medical Records [facility] Appointment EP Reason Comments Received Outside Medical Records Reason Comments Pre-Op Exam Reason Comments Pre-Op Visit Reason Comments Post-Op Visit Reason Comments Follow Up Reason Comments Gout flare up Reason Comments Lab Orders Reason Comments Consult Specialty Diagnoses / Procedures Referred By Contac t Referred To Contact Oncology Diagnoses Prostate cancer (HCC) Procedures CONSULT TO ONCOLOGY OFFICE/OUTPATIENT [facility] MDM 60-74 MINUTES Raj Lam MD [address] [place] [address] Referral ID Status Reason Start Date Expiration Date Visits Requested Visits Authorized [id number] Pending Review PCP Requested Referral 12/16/2021 12/09/2022 1 1 Reason Comments Information Reason Onset Date Comments Population Health Navigation Outreach 01/26/2022 Diabetes Management Reason Comments Prostate Cancer Reason Comments Urinary Incontinence Prostate Cancer 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 Reason Comments PT Eval Referral ID Status Reason Start Date Expiration Date Visits Requested Visits Authorized [id number] Pending Review Auto-Generat ed Referral 07/02/2022 06/01/2023 1 1 Reason Comments Prostate Cancer Reason Onset Date Comments Simulation Request Form 08/02/2022 Reason Comments Physical Therapy Specialty Diagnoses / Procedures Referred By Contac t Referred To Contact [facility] Diagnoses Prostate cancer (HCC) Procedures CONSULT TO PHYSICAL THERAPY PHYSICAL THERAPY EVALUATION HIGH COMPLEX 45 MINS Quentin Hampton MD [address] [place] [address] [facility] [address] [place] [address] Reason Comments Radiotherapy On-treatment Visit Reason Comments Nurse Visit Reason Comments Constipation Reason Comments Patient Education constipation Reason Comments Patient Update Reason Comments Patient Education Completed radiation Reason Comments Recheck Reason Comments Back Pain Reason Comments Results Reason Comments Nm Pet Request Reason Comments Radiology NM Specialty Diagnoses / Procedures Referred By Contac t Referred To Contact MOLECULAR & FUNCTIONAL IMAGING Diagnoses Prostate cancer (HCC) Procedures NM PET/CT PROSTATE WHOLE BODY IMAGING PET IMAGING CT ATTENUATION SKULL BASE MID-THIGH GALLIUM GA-68 GOZETOTIDE, DIG (LOCAMETZ), 1 MCI Marie Beavers MD [address] [place] [address] [facility] [address] [place] [address] Referral ID Status Reason Start Date Expiration Date V isits Requested Visits Authorized [id number] Closed Auto-Generate d Referral 05/25/2024 09/04/2024 1 1 Care Teams (unrecognized sec tion and content) Miller Apprentice Relationship Specialty Start Date End Date Wes Rider MD [address] [facility] [place] [address] PCP - General Family Practice 05/21/14 Miller Apprentice Relationship Specialty Start Date End Date Wes Rider MD [address] [facility] [place] [address] PCP - General Family Practice 05/21/14 Miller Apprentice Relationship Specialty Start Date End Date Wes Rider MD [address] [facility] [place] [address] PCP - General Family Practice 05/21/14 Miller Apprentice Relationship Specialty Start Date End Date Wes Rider MD [address] [facility] [place] [address] PCP - General Family Practice 05/21/14 Miller Apprentice Relationship Specialty Start Date End Date Wes Rider MD [facility] [place] [address] PCP - General Family Practice 05/21/14 Marie Bautista MD [address] [place] [address] Primary Staff Physician Cardiology 08/26/21 Miller Apprentice Relationship Specialty Start Date End Date Wes Rider MD [address] [place] [address] PCP - General Family Practice 05/21/14 Marie Bautista MD [address] [place] [address] Primary Staff Physician Cardiology 08/26/21 Miller Apprentice Relationship Specialty Start Date End Date Wes Rider MD [facility] [place] [address] PCP - General Family Practice 05/21/14 Marie Bautista MD [address] [place] [address] Primary Staff Physician Cardiology 08/26/21 Miller Apprentice Relationship Specialty Start Date End Date Wes Rider MD [address] [place] [address] PCP - General Family Practice 05/21/14 Marie Bautista MD [address] [place] [address] Primary Staff Physician Cardiology 08/26/21 Miller Apprentice Relationship Specialty Start Date End Date Wes Rider MD [address] [place] [address] PCP - General Family Practice 05/21/14 Marie Bautista MD [address] [place] [address] Primary Staff Physician Cardiology 08/26/21 Miller Apprentice Relationship Specialty Start Date End Date Wes Rider MD [address] [place] [address] PCP - General Family Practice 05/21/14 Marie Bautista MD [address] [place] [address] Primary Staff Physician Cardiology 08/26/21 Miller Apprentice Relationship Specialty Start Date End Date Wes Rider MD [address] [facility] [place] [address] PCP - General Family Practice 05/21/14 Marie Bautista MD [address] [place] [address] Primary Staff Physician Cardiology 08/26/21 Miller Apprentice Relationship Specialty Start Date End Date Wes Rider MD [address] [place] [address] PCP - General Family Practice 05/21/14 Marie Bautista MD [address] [place] [address] Primary Staff Physician Cardiology 08/26/21 Miller Apprentice Relationship Specialty Start Date End Date Wes Rider MD [address] [place] [address] PCP - General Family Practice 05/21/14 Marie Bautista MD [address] [place] [address] Primary Staff Physician Cardiology 08/26/21 Miller Apprentice Relationship Specialty Start Date End Date Wes Rider MD [address] [place] [address] PCP - General Family Practice 05/21/14 Marie Bautista MD [address] [place] [address] Primary Staff Physician Cardiology 08/26/21 Miller Apprentice Relationship Specialty Start Date End Date Wes Rider MD [facility] [place] [address] PCP - General Family Practice 05/21/14 Marie Bautista MD [address] [place] [address] Primary Staff Physician Cardiology 08/26/21 Miller Apprentice Relationship Specialty Start Date End Date Wes Rider MD [address] [place] [address] PCP - General Family Practice 05/21/14 Marie Bautista MD [address] [place] [address] Primary Staff Physician Cardiology 08/26/21 Miller Apprentice Relationship Specialty Start Date End Date Wes Rider MD [address] [place] [address] PCP - General Family Practice 05/21/14 Marie Bautista MD [address] [place] [address] Primary Staff Physician Cardiology 08/26/21 Miller Apprentice Relationship Specialty Start Date End Date Wes Rider MD [address] [place] [address] PCP - General Family Practice 05/21/14 Marie Bautista MD [address] [place] [address] Primary Staff Physician Cardiology 08/26/21 Miller Apprentice Relationship Specialty Start Date End Date Wes Rider MD [address] [place] [address] PCP - General Family Practice 05/21/14 Marie Bautista MD [address] [place] [address] Primary Staff Physician Cardiology 08/26/21 Miller Apprentice Relationship Specialty Start Date End Date Wes Rider MD [address] [place] [address] PCP - General Family Practice 05/21/14 Marie Bautista MD [address] [place] [address] Primary Staff Physician Cardiology 08/26/21 Marium Marrero [facility] Transitional Care Pharmacist Pharmacy 10/07/21 11/06/21 Clarke Rodriguez, NELLY [address] [place] [address] Primary Care Bilingual Customer Service Internal Medicine 10/07/21 11/06/21 Miller Apprentice Relationship Specialty Start Date End Date Wes Rider MD [address] [place] [address] PCP - General Family Practice 05/21/14 Marie Bautista MD [address] [place] [address] Primary Staff Physician Cardiology 08/26/21 Marium Marrero [facility] Transitional Care Pharmacist Pharmacy 10/07/21 11/06/21 Clarke Rodriguez, NELLY [address] [place] [address] Primary Care Bilingual Customer Service Internal Medicine 10/07/21 11/06/21 Miller Apprentice Relationship Specialty Start Date End Date Wes Rider MD [address] [place] [address] PCP - General Family Practice 05/21/14 Marie Bautista MD [address] [place] [address] Primary Staff Physician Cardiology 08/26/21 Marium Marrero [facility] Transitional Care Pharmacist Pharmacy 10/07/21 11/06/21 Clarke Rodriguez RN [address] [facility] [place] [address] Primary Care Bilingual Customer Service Internal Medicine 10/07/21 11/06/21 Miller Apprentice Relationship Specialty Start Date End Date Wes Rider MD [address] [place] [address] PCP - General Family Practice 05/21/14 Marie Bautista MD [address] [place] [address] Primary Staff Physician Cardiology 08/26/21 Marium Marrero [facility] Transitional Care Pharmacist Pharmacy 10/07/21 11/06/21 Clarke Rodriguez RN [address] [place] [address] Primary Care Bilingual Customer Service Internal Medicine 10/07/21 11/06/21 Miller Apprentice Relationship Specialty Start Date End Date Wes Rider MD [address] [place] [address] PCP - General Family Practice 05/21/14 Marie Bautista MD [address] [place] [address] Primary Staff Physician Cardiology 08/26/21 Marium Marrero [facility] Transitional Care Pharmacist Pharmacy 10/07/21 11/06/21 Clarke Rodriguez RN [address] [place] [address] Primary Care Bilingual Customer Service Internal Medicine 10/07/21 11/06/21 Miller Apprentice Relationship Specialty Start Date End Date Wes Rider MD [address] [place] [address] PCP - General Family Practice 05/21/14 Marie Bautista MD [address] [place] [address] Primary Staff Physician Cardiology 08/26/21 Marium Marrero [facility] Transitional Care Pharmacist Pharmacy 10/07/21 11/06/21 Clarke Rodriguez, NELLY [address] [place] [address] Primary Care Bilingual Customer Service Internal Medicine 10/07/21 11/06/21 Miller Apprentice Relationship Specialty Start Date End Date Wes Rider MD [address] [place] [address] PCP - General Family Practice 05/21/14 Marie Bautista MD [address] [place] [address] Primary Staff Physician Cardiology 08/26/21 Marium Marrero [facility] Transitional Care Pharmacist Pharmacy 10/07/21 11/06/21 Clarke Rodriguez, NELLY [address] [place] [address] Primary Care Bilingual Customer Service Internal Medicine 10/07/21 11/06/21 Miller Apprentice Relationship Specialty Start Date End Date Wes Rider MD [address] [place] [address] PCP - General Family Practice 05/21/14 Marie Bautista MD [address] [place] [address] Primary Staff Physician Cardiology 08/26/21 Miller Apprentice Relationship Specialty Start Date End Date Wes Rider MD [address] [place] [address] PCP - General Family Practice 05/21/14 Marie Bautista MD [address] [place] [address] Primary Staff Physician Cardiology 08/26/21 Miller Apprentice Relationship Specialty Start Date End Date Wes Rider MD [address] [place] [address] PCP - General Family Practice 05/21/14 Marie Bautista MD [address] [place] [address] Primary Staff Physician Cardiology 08/26/21 Miller Apprentice Relationship Specialty Start Date End Date Wes Rider MD [address] [place] [address] PCP - General Family Practice 05/21/14 Marie Bautista MD [address] [place] [address] Primary Staff Physician Cardiology 08/26/21 Marium Marrero [facility] Transitional Care Pharmacist Pharmacy 10/07/21 11/06/21 Clarke Rodriguez, RN [address] [place] [address] Primary Care Bilingual Customer Service Internal Medicine 10/07/21 11/06/21 Miller Apprentice Relationship Specialty Start Date End Date Wes Rider MD [address] [place] [address] PCP - General Family Practice 05/21/14 Marie Bautista MD [address] [place] [address] Primary Staff Physician Cardiology 08/26/21 Miller Apprentice Relationship Specialty Start Date End Date Wes Rider MD [address] [place] [address] PCP - General Family Practice 05/21/14 Marie Bautista MD [address] [place] [address] Primary Staff Physician Cardiology 08/26/21 Miller Apprentice Relationship Specialty Start Date End Date Wes Rider MD [address] [place] [address] PCP - General Family Practice 05/21/14 Marie Bautista MD [address] [place] [address] Primary Staff Physician Cardiology 08/26/21 Miller Apprentice Relationship Specialty Start Date End Date Wes Rider MD [address] [place] [address] PCP - General Family Medicine 05/21/14 Marie Bautista MD [address] [place] [address] Primary Staff Physician Cardiology 08/26/21 Miller Apprentice Relationship Specialty Start Date End Date Wes Rider MD [address] [facility] [place] [address] PCP - General Family Medicine 05/21/14 Marie Bautista MD [address] [place] [address] Primary Staff Physician Cardiology 08/26/21 Miller Apprentice Relationship Specialty Start Date End Date Wes Rider MD [address] [place] [address] PCP - General Family Medicine 05/21/14 Marie Bautista MD [address] [place] [address] Primary Staff Physician Cardiology 08/26/21 Miller Apprentice Relationship Specialty Start Date End Date Wes Rider MD [address] [place] [address] PCP - General Family Medicine 05/21/14 Marie Bautista MD [address] [place] [address] Primary Staff Physician Cardiology 08/26/21 Miller Apprentice Relationship Specialty Start Date End Date Wes Rider MD [address] [place] [address] PCP - General Family Medicine 05/21/14 Marie Bautista MD [address] [place] [address] Primary Staff Physician Cardiology 08/26/21 Miller Apprentice Relationship Specialty Start Date End Date Wes Rider MD [address] [place] [address] PCP - General Family Medicine 05/21/14 Marie Bautista MD [address] [place] [address] Primary Staff Physician Cardiology 08/26/21 Miller Apprentice Relationship Specialty Start Date End Date Wes Rider MD [address] [place] [address] PCP - General Family Medicine 05/21/14 Marie Bautista MD [address] [place] [address] Primary Staff Physician Cardiology 08/26/21 Miller Apprentice Relationship Specialty Start Date End Date Wes Rider MD [address] [place] [address] PCP - General Family Medicine 05/21/14 Marie Bautista MD [address] [place] [address] Primary Staff Physician Cardiology 08/26/21 Miller Apprentice Relationship Specialty Start Date End Date Wes Rider MD [address] [place] [address] PCP - General Family Medicine 05/21/14 Marie Bautista MD [address] [place] [address] Primary Staff Physician Cardiology 08/26/21 Miller Apprentice Relationship Specialty Start Date End Date Wes Rider MD [address] [place] [address] PCP - General Family Medicine 05/21/14 Marie Bautista MD [address] [place] [address] Primary Staff Physician Cardiology 08/26/21 Artur Mi MD, [address] [place] [address] Radiation Oncology 06/02/22 Miller Apprentice Relationship Specialty Start Date End Date Wes Rider MD [address] [place] [address] PCP - General Family Medicine 05/21/14 Marie Bautista MD [address] [place] [address] Primary Staff Physician Cardiology 08/26/21 Artur Mi MD, [address] [place] [address] Radiation Oncology 06/02/22 Miller Apprentice Relationship Specialty Start Date End Date Wes Rider MD [address] [place] [address] PCP - General Family Medicine 05/21/14 Marie Bautista MD [address] [place] [address] Primary Staff Physician Cardiology 08/26/21 Miller Apprentice Relationship Specialty Start Date End Date Wes Rider MD [address] [place] [address] PCP - General Family Medicine 05/21/14 Marie Bautista MD [address] [place] [address] Primary Staff Physician Cardiology 08/26/21 Artur Mi MD, [address] [place] [address] Radiation Oncology 06/02/22 Miller Apprentice Relationship Specialty Start Date End Date Wes Rider MD [address] [place] [address] PCP - General Family Medicine 05/21/14 Marie Bautista MD [address] [place] [address] Primary Staff Physician Cardiology 08/26/21 Artur Mi MD, [address] [place] [address] Radiation Oncology 06/02/22 Miller Apprentice Relationship Specialty Start Date End Date Wes Rider MD [address] [place] [address] PCP - General Family Medicine 05/21/14 Marie Bautista MD [address] [place] [address] Primary Staff Physician Cardiology 08/26/21 Artur Mi MD, [address] [place] [address] Radiation Oncology 06/02/22 Miller Apprentice Relationship Specialty Start Date End Date Wes Rider MD [address] [place] [address] PCP - General Family Medicine 05/21/14 Marie Bautista MD [address] [place] [address] Primary Staff Physician Cardiology 08/26/21 Artur Mi MD, [address] [place] [address] Radiation Oncology 06/02/22 Miller Apprentice Relationship Specialty Start Date End Date Wes Rider MD [address] [place] [address] PCP - General Family Medicine 05/21/14 Marie Bautista MD [address] [place] [address] Primary Staff Physician Cardiology 08/26/21 Artur Mi MD, [address] [facility] [place] [address] Radiation Oncology 06/02/22 Miller Apprentice Relationship Specialty Start Date End Date Wes Rider MD [address] [facility] [place] [address] PCP - General Family Medicine 05/21/14 Marie Bautista MD [address] [place] [address] Primary Staff Physician Cardiology 08/26/21 Artur Mi MD, [address] [facility] [place] [address] Radiation Oncology 06/02/22 Miller Apprentice Relationship Specialty Start Date End Date Wes Rider MD [address] [facility] [place] [address] PCP - General Family Medicine 05/21/14 Marie Bautista MD [address] [place] [address] Primary Staff Physician Cardiology 08/26/21 Artur Mi MD, [address] [facility] [place] [address] Radiation Oncology 06/02/22 Miller Apprentice Relationship Specialty Start Date End Date Wes Rider MD [address] [facility] [place] [address] PCP - General Family Medicine 05/21/14 Marie Bautista MD [address] [place] [address] Primary Staff Physician Cardiology 08/26/21 Artur Mi MD, [address] [address] Radiation Oncology 06/02/22 Miller Apprentice Relationship Specialty Start Date End Date Wes Rider MD [address] [place] [address] PCP - General Family Medicine 05/21/14 Marie Bautista MD [address] [place] [address] Primary Staff Physician Cardiology 08/26/21 Artur Mi MD, [address] [place] [address] Radiation Oncology 06/02/22 Miller Apprentice Relationship Specialty Start Date End Date Wes Rider MD [address] [place] [address] PCP - General Family Medicine 05/21/14 Marie Bautista MD [address] [place] [address] Primary Staff Physician Cardiology 08/26/21 Artur Mi MD, [address] [place] [address] Radiation Oncology 06/02/22 Miller Apprentice Relationship Specialty Start Date End Date Wes Rider MD [address] [place] [address] PCP - General Family Medicine 05/21/14 Marie Bautista MD [address] [place] [address] Primary Staff Physician Cardiology 08/26/21 Artur Mi MD, [address] [facility] [address] Radiation Oncology 06/02/22 Miller Apprentice Relationship Specialty Start Date End Date Wes Rider MD [address] [facility] [place] [address] PCP - General Family Medicine 05/21/14 Marie Bautista MD [address] [place] [address] Primary Staff Physician Cardiology 08/26/21 Artur Mi MD, [address] [facility] [place] [address] Radiation Oncology 06/02/22 Miller Apprentice Relationship Specialty Start Date End Date Wes Rider MD [address] [place] [address] PCP - General Family Medicine 05/21/14 Marie Bautista MD [address] [place] [address] Primary Staff Physician Cardiology 08/26/21 Artur Mi MD, [address] [place] [address] Radiation Oncology 06/02/22 Miller Apprentice Relationship Specialty Start Date End Date Wes Rider MD [address] [place] [address] PCP - General Family Medicine 05/21/14 Marie Bautista MD [address] [place] [address] Primary Staff Physician Cardiology 08/26/21 Artur Mi MD, [address] [place] [address] Radiation Oncology 06/02/22 Miller Apprentice Relationship Specialty Start Date End Date Wes Rider MD [address] [place] [address] PCP - General Family Medicine 05/21/14 Marie Bautista MD [address] [place] [address] Primary Staff Physician Cardiology 08/26/21 Artur Mi MD, [address] [facility] [place] [address] Radiation Oncology 06/02/22 Miller Apprentice Relationship Specialty Start Date End Date Wes Rider MD [address] [facility] [place] [address] PCP - General Family Medicine 05/21/14 Marie Bautista MD [address] [place] [address] Primary Staff Physician Cardiology 08/26/21 Artur Mi MD, [address] [facility] [place] [address] Radiation Oncology 06/02/22 Miller Apprentice Relationship Specialty Start Date End Date Wes Rider MD [address] [facility] [place] [address] PCP - General Family Medicine 05/21/14 Marie Bautista MD [address] [place] [address] Primary Staff Physician Cardiology 08/26/21 Artur Mi MD, [address] [place] [address] Radiation Oncology 06/02/22 Miller Apprentice Relationship Specialty Start Date End Date Wes Rider MD [address] [facility] [place] [address] PCP - General Family Medicine 05/21/14 Marie Bautista MD [address] [place] [address] Primary Staff Physician Cardiology 08/26/21 Artur Mi MD, [address] [place] [address] Radiation Oncology 06/02/22 Miller Apprentice Relationship Specialty Start Date End Date Wes Rider MD [address] [place] [address] PCP - General Family Medicine 05/21/14 Marie Bautista MD [address] [place] [address] Primary Staff Physician Cardiology 08/26/21 Artur Mi MD, [address] [place] [address] Radiation Oncology 06/02/22 Miller Apprentice Relationship Specialty Start Date End Date Wes Rider MD [address] [place] [address] PCP - General Family Medicine 05/21/14 Marie Bautista MD [address] [place] [address] Primary Staff Physician Cardiology 08/26/21 Artur Mi MD, [address] [place] [address] Radiation Oncology 06/02/22 Miller Apprentice Relationship Specialty Start Date End Date Wes Rider MD [address] [place] [address] PCP - General Family Medicine 05/21/14 Marie Bautista MD [address] [place] [address] Primary Staff Physician Cardiology 08/26/21 Artur Mi MD, [address] [place] [address] Radiation Oncology 06/02/22 Miller Apprentice Relationship Specialty Start Date End Date Wes Rider MD [address] [place] [address] PCP - General Family Medicine 05/21/14 Marie Bautista MD [address] [place] [address] Primary Staff Physician Cardiology 08/26/21 Artur Mi MD, [address] [place] [address] Radiation Oncology 06/02/22 Miller Apprentice Relationship Specialty Start Date End Date Wes Rider MD [address] [place] [address] PCP - General Family Medicine 05/21/14 Marie Bautista MD [address] [place] [address] Primary Staff Physician Cardiology 08/26/21 Artur Mi MD, [address] [place] [address] Radiation Oncology 06/02/22 Team Status: Active Member Role Status Dates Dr. Wes Rider MD Family Provider Active Dr. Wes Rider MD Primary Care Provider Active Team Status: Inactive Member Role Status Dates Dr. Wes Rider MD Primary Care Provider, Referr ing Provider Active Dr. Junior Johnson MD Active Lele Hanley JUNIOR DATA ANALYST, JUNIOR DATA ANALYST-C Attending Provider Active Team Status: Inactive Member Role Status Dates Dr. eWs Rider MD Primary Care Provider Active Lele Hanley JUNIOR DATA ANALYST, JUNIOR DATA ANALYST-C Attending Provider, Referring Pro vider Active Miller Apprentice Relationship Specialty Start Date End Date Wes Rider MD [address] [place], [place] [address] PCP - General Family Medicine 05/21/14 Marie Bautista MD [address] [place], [place] [address] Primary Staff Physician Cardiology 08/26/21 Artur Mi MD, MD [address] [place], [place] [address] Radiation Oncology 06/02/22 Team Status: Active Member Role Status Dates Dr. Wes Rider MD Primary Care Provider Active Lele Hanley JUNIOR DATA ANALYST, JUNIOR DATA ANALYST-C Attending Provider Active Team Status: Inactive Member Role Status Dates Dr. Wes Rider MD Primary Care Provider Active Dr. Marlo Harding DO Emergency Provider Active Miller Apprentice Relationship Specialty Start Date End Date Wes Rider MD [address] [place], [place] [id number] PCP - General Family Medicine 05/21/14 Marie Bautista MD [address] [place], [place] [address] Primary Staff Physician Cardiology 08/26/21 Artur Mi MD, MD [address] [place], [place] [address] Radiation Oncology 06/02/22 Team Status: Inactive Member Role Status Dates Dr. Wes Rider MD Primary Care Provider Active Lele Hanley JUNIOR DATA ANALYST, JUNIOR DATA ANALYST-C Attending Provider Active Miller Apprentice Relationship Specialty Start Date End Date eWs Rider MD [address] [place], [place] [id number] PCP - General Family Medicine 05/21/14 Marie Bautista MD [address] [place] [address] Primary Staff Physician Cardiology 08/26/21 Artur Mi MD [address] [place], [place] [address] Radiation Oncology 06/02/22 Team Status: Inactive Member Role Status Dates Dr. Wes Rider MD Primary Care Provider, Referr ing Provider Active Dr. Herberth Watson MD Attending Provider Active Team Status: Inactive Member Role Status Dates Dr. Wes Rider MD Primary Care Provider Active Dr. Junior Johnson MD Attending Provider Active Team Status: Inactive Member Role Status Dates Dr. Wes Rider MD Primary Care Provider Active Dr. Herberth Watson MD Attending Provider, Referring Pr ovider Active Miller Apprentice Relationship Specialty Start Date End Date Wes Rider MD [address] [place], [place] [address] PCP - General Family Medicine 05/21/14 Marie Bautista MD [address] [place] [address] Primary Staff Physician Cardiology 08/26/21 Artur Mi MD [address] [place] [address] Radiation Oncology 06/02/22 Miller Apprentice Relationship Specialty Start Date End Date Marie Bautista MD [address] [place] [address] Primary Staff Physician Cardiology 08/26/21 Artur Mi MD [address] [place] [address] Radiation Oncology 06/02/22 Miller Apprentice Relationship Specialty Start Date End Date Marie Bautista MD [address] [place] [address] Primary Staff Physician Cardiology 08/26/21 Artur Mi MD [address] [place] [address] Radiation Oncology 06/02/22 Tiffanie Cheung, RN Specialty Superintendent Plant Protection 02/20/24 Miller Apprentice Relationship Specialty Start Date End Date Marie Bautista MD [address] [place] [address] Primary Staff Physician Cardiology 08/26/21 Artur Mi MD [address] [place] [address] Radiation Oncology 06/02/22 Tiffanie Cheung, RN Specialty Superintendent Plant Protection 02/20/24 Miller Apprentice Relationship Specialty Start Date End Date Marie Bautista MD [address] [place] [address] Primary Staff Physician Cardiology 08/26/21 Artur Mi MD [address] [place] [address] Radiation Oncology 06/02/22 Tiffanie Cheung, RN Specialty Superintendent Plant Protection 02/20/24 Miller Apprentice Relationship Specialty Start Date End Date Marie Bautista MD [address] [place] [address] Primary Staff Physician Cardiology 08/26/21 Artur Mi MD [address] [place] [address] Radiation Oncology 06/02/22 Tiffanie Cheung, RN Specialty Superintendent Plant Protection 02/20/24 Team Status: Active Member Role Status Dates Dr. Wes Rider MD Family Provider Active Yecenia Agrawal [...] August 28, 2024 End: August 28, 2024 Team Status: Active Member Role Status Ketan Agrawal MD Primary Care Provider Active Team Status: Inactive Member Role Status Ketan Agrawal MD Primary Care Provider Active St art: November 03, 2024 End: November 04, 2024 Sonu Rodriguez MD Emergency Provider Active Star t: November 03, 2024 End: November 04, 2024 Miller Apprentice Relationship Specialty Start Date End Date Marie Bautista MD [address] [place] [address] Primary Staff Physician Cardiology 08/26/21 Artur Mi MD [address] [facility] [address] Radiation Oncology 06/02/22 Tiffanie Cheung, NELLY Specialty Superintendent Plant Protection 02/20/24 Miller Apprentice Relationship Specialty Start Date End Date Marie Bautista MD [address] [place] [address] Primary Staff Physician Cardiology 08/26/21 Artur Mi MD [address] [place] [address] Radiation Oncology 06/02/22 Tiffanie Cheung, NELLY Specialty Superintendent Plant Protection 02/20/24 FOR RECORDS PERTAINING TO PATIENTS WHO ARE [...] BE BASED ON THE PRIMARY CLINICAL RECORDS. [employer] provides no warranty or guarantee of the accuracy or completeness of information in this document.
--- OUTSIDE RECORDS SUMMARY | 2024-12-22 11:05 | XMS RPT_ITS | CCD ---
Author Organization [facility] Care Team Providers Care Dialysis Technician Name Role Phone EDUARDO, EREN E Unavailable [...] Wes Rider MD Primary Care Provider Marie Bautsita MD Unavailable Dr. Junior Johnson Referring Provider [phone] Junior Johnson Other Provider Marium Marrero RPh Unavailable Unavailable Clarke Rodriguez RN Unavailable Wes Rider MD Primary Care Provider Marie Bautista MD Unavailable Dr. Wes Rider Primary Care Provider Priscilla Valdivia Attending Provider Unavailable Dr. Wes Rider Referring Provider Dayan PAGE MAKEUP SYSTEM OPERATOR, DEVANTE Villalta Attending Provider Dr. Junior Johnson Attending Provider [phone] Wes Rider Primary Care Provider Priscilla Valdivia Attending Provider Unavailable Wes Rider MD Primary Care Provider Dr. Wes Rider Primary Care Provider Dr. Wes Rider Referring Provider Roof PAGE MAKEUP SYSTEM OPERATOR, PAGE MAKEUP SYSTEM OPERATOR-Sonal Villalta Attending Provider Wes Rider MD Primary Care Provider Lily CISNEROS, Marie Unavailable Shmuel CISNEROS MD, Daesung Unavailable Dr. Wes Rider Primary Care Provider Dr. Wes Rider Referring Provider Roof PAGE MAKEUP SYSTEM OPERATOR, PAGE MAKEUP SYSTEM OPERATOR-Sonal Villalta Attending Provider Lily CISNEROS, Marie Unavailable Dr. Wes Rider Primary Care Provider Dr. Wes Rider Referring Provider Roof PAGE MAKEUP SYSTEM OPERATOR, PAGE MAKEUP SYSTEM OPERATOR-Sonal Villalta Attending Provider Shmuel CISNEROS, Artur Unavailable [...] MILKA L Consulting Louisa LYNCH MD, DR GRISELDA Mistry Admitting Unavailab diana LYNCH MD, DR GRISELDA Mistry Attending Unavailab diana AGRAWAL MD, CHALON Primary Care Unavailable Tanja CISNEROS, Chalon Primary Care Provider Jennifer CISNEROS, Sonu Emergency Provider Tanja, Chalon Attending Unavailable Tanja, Chalon Primary Care Unavailable Tanja, Chalon Attending Unavailable Elderbrock, Wes Primary Care Unavailable Tanja, Chalon Referring Unavailable Tanja, Chalon Primary Care Unavailable Elizabeth, Junior Referring Unavailable Elizabeth, Hatfield Attending Unavailable Elizabeth, Junior Attending Unavailable Tanja, Chalon Primary Care Unavailable Neli MCGEE, Talia Conte Attending Unavail able Elizabeth, Junior Referring Unavailable Elizabeth, Junior Consulting Unavailable Tanja, Chalon Primary Care Unavailable Elderbrock, Wes Primary Care Unavailable Elderbrock, Wes Referring Unavailable Elizabeth, Hatfield Attending Unavailable Tanja, Chalon Primary Care Unavailable [...] 0 Refill(s), 11/07/24 8:53:00 AM EDT, Pharmacy: [facility], 185.4, cm, 10/23/24 14:49:00 [...] Comment on above: [facility]. Take it 1 day before and 3 days after catheter removal docusate sodium 100 mg oral capsule (5 sources) Start: 2021 End: 2021 take 1 capsule by mouth twice daily docusate sodium (COLACE) 100 mg capsule Take 1 capsule by mouth twice daily. 60 capsule 0 11/20/2021 12/20/2021 Active Comment on above: Take 1 capsule by mo [facility] twice daily. docusate sodium 50 mg / sennosides, mcc 8.6 mg oral tablet (1 source) Start: 2024 End: 2024 take 1 tablet by mouth twice daily Senokot S 50 mg-8.6 mg oral tablet Dose = 2 tab(s), Oral, BID, Take until first bowel movement, then as needed, X 3 day(s), # 12 tab(s), 0 Refill(s), Pharmacy: [facility], 185.4, cm, 10/23/24 14:49:00 [...] 0 Refill(s), 11/07/24 8:52:00 AM EDT, Pharmacy: [facility], 185.4, cm, 10/23/24 14:49:00 [...] qDay, # 30 tab(s), 0 Refill(s), Pharmacy: [facility], 185.4, cm, 10/23/24 14:49:00 [...] meloxicam/Mobic., # 60 tab(s), 0 Refill(s), Pharmacy: [facility], 185.4, cm, 10/23/24 14:49:00 [...] 0 Refill(s), 10/31/24 8:53:00 AM EDT, Pharmacy: [facility], Status post total right knee replacement, [...] Comment on above: Take 1 tablet by [facility] twice daily for 7 days. tadalafil 5 [...] disease (20 sources) Atherosclerotic heart disease of [place] coronary artery without angina pectoris; Translations: [Coronary [...] malignant neoplasm] Episodic Other aftercare (1 source) half-way (current) use of aspirin; Translations: [equipment operator intermodal yard (current) use of aspirin] Onset: 5 Episodic Other aftercare (1 source) Other equipment operator intermodal yard (current) drug therapy; Translations: [Other equipment operator intermodal yard (current) drug therapy] Onset: 5 Episodic Other [...] Test Name Value Interpretation Reference Range Facility [facility] 11-27-2024 OVS Visit (SP) Office (H EMAWS) JERMAINE BEGUM ([id number]) 1945 M NFR Date Time Provider Department 11/27/24 11:00 AM PHILLIP BARNETT During your visit today, we recorded the following information about you: Temperature Pulse Blood pressure Weight 96.9 degrees 62/minute 138/71 107.5 kg Height 1.803 m Gisele Winchester LPN 11/27/2024 12:00 PM Signed Transferring care closer to home DX: prostate cancer JAMES Camara Drew, MD 11/27/2024 12:00 PM Signed HISTORY OF PRESENT ILLNESS: Jermaine Begum is a 79 year old male transfer of care from [facility], history as follows: ONCOLOGIC HISTORY: Oncology History [...] a telephone visit. 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 More emergently, however, he needed a CABG, so started with ADT alone prior to definitive treatment with radical prostatectomy in November 2021, with [id number] disease. Given that he had gotten ADT [...] 03/16/2016 Dr. Wilkerson CARDIOVERSION N/A 09/19/2020 [facility] PAST SURGICAL HISTORY OF 05/16/1955 had [...] No Kn (more content not included)... [facility] Kiet 11-20-2024 JHN Telephone (HEMWabi Sabi [employer]) JERMAINE BEGUM ([id number]) 1945 [place]és NFR Date Time Provider Department [...] office to inquire about A1C order. Janeth Clraos LPN Allergies As of Date: 11/20/2024 (No [...] NOS [M10.9] 02/28/2007 Coronary artery disease involving [place] franz* Medication Side Effects [T88.7XXA] 01/09/2010 BPH w urinary obs/LUTS [N40.1, N13.8] 06/08/2010 Elevated PSA [R97.20] 07/06/2010 Gynecomastia [N62] 12/23/2011 Allergic rhinitis [J30.9] 10/02/2012 Controlled type 2 diabetes mellitus without com*11/10/2017 Elevated prostate specific antigen (PSA) [R97.2*04/24/2021 Prostate cancer (HCC) [C61] 07/10/2021 Abnormal stress test [R94.39] 08/27/2021 Coronary artery disease involving [place] franz*08/27/2021 09/30/2021 Presence of drug coated stent [...] Status:Closed by JANETH CLAROS on 11/20/24 [facility] Prostate specific Ag [Mass/Vol] 0.47 ng/mL Normal <2.60 [facility] Comment on above: Order Comment: Speci men Type: BLOOD SPECIMEN Ordering Facility: [facility] Address: [address] [place] [address] Result Comment: Tota l PSA test methodology used is the Electrochemiluminescence Immunoassay by [employer]. Total PSA values by differing methodologies cannot be interchanged. Performed By: #### 2 857-1 #### [facility] CLIA [id number] [address] [place], [place] [address] [address] [place] Testost Martirl-mCncon 08-2 025 Testosterone [Mass/Vol] 263 ng/dL Normal 193-824 [facility] Comment on above: Order Comment: Speci men Type: BLOOD SPECIMEN Ordering Facility: [facility] Address: [address] [place] [address] Result Comment: A te stosterone level in the 193-320 ng/dL range with associated clinical symptoms is considered low and may indicate hypogonadism (from [facility] [phone]:123-135). Results >320 ng/dL are considered normal. Performed By: #### 2 986-8 #### [facility] CLIA [id number] [address] [place] [address] [place] [facility] Abd Inc Decub and/or Erecton 11-03-2024 Abd Inc Decub and/or Erect [facility] [address] [place], [place] [address] [employer] Decub and/or Erect MR#: [id number] Acct: [id number] Name: JERMAINE BEGUM Rep #: [id number] : 1945 M 79 From: Candace Carrizales nd, MD PCP: Dr. Yecenia Agrawal MD Status: REG ER Study: [employer] Inc Decub and/or Erect Date of Exam: 11/03 Exam# [id number] Ordering Dr: Sonu Rodriguez MD PROCEDURE: ABD [...] Decub and/or Erect IMPRESSION: CONSTIPATION. Reading Location: [id number] CC: Dr. Sonu Rodriguez MD; Dr. Yecenia Agrawal MD Morning News Anchor: Signed Normal [facility] Emergency Department Summary on 11-03-2024 Emergency Department Summary [facility] Medical Records Department [address] [place] [address] Emergency Department Summary 11/03/24 MR#: [id number] Acct: [id number] Name: JERMAINE BEGUM Rep #: [id number] : 1945 79 From: Sonu Rodriguez MD [...] fevers or chills, no nausea or vomiting. [facility] Medical History Prostate cancer Dilated aortic root Incomplete right bundle branch block Internal hemorrhoid Gout Type 2 diabetes mellitus Osteoarthritis Palmar fascial fibromatosis [dupuytren] Atherosclerosis of coronary artery of [place] heart without angina pectoris Essential hypertension History [...] independent interpretation (more content not included)... Normal [facility] JER[facility] BE[facility] ([id number]) 1945 M NFR Date Time Provider Department 11/02/24 PHILLIP BARNETT During your visit today, we recorded the following information about you: Kaitlin Romano 11/02/2024 9:55 AM Signed Patient called requesting to schedule with Dr. Barnett. He would like to transfer his care from his oncologist Dr. Beavers at [facility] since he lives in [place] and his spouse see's Dr. Barnett. He states he's do for labs and ov in November. Please review and advise. Irene Friedman, NELLY 11/02/2024 11:10 AM Signed Ok to schedule PAGE MAKEUP SYSTEM OPERATOR appointment in November with Dr. Barnett. I will need to ask Dr. Barnett if he is willing to order prior to seeing him. NELLY York Angela 11/02/2024 1:21 PM Signed Lvm for patient to return the call to schedule with Dr. Barnett in November PAGE MAKEUP SYSTEM OPERATOR/TRANSFER CARE/SELF REFERRING* Kaitlin Sanders 11/02/2024 2:03 PM [...] NOS [M10.9] 02/28/2007 Coronary artery disease involving [place] franz* Medication Side Effects [T88.7XXA] 01/09/2010 BPH w urinary obs/LUTS [N40.1, N13.8] 06/08/2010 Elevated PSA [R97.20] 07/06/2010 Gynecomastia [N62] 12/23/2011 Allergic rhinitis [J30.9] 10/02/2012 Controlled type 2 diabetes mellitus without com*11/10/2017 Elevated prostate specific antigen (PSA) [R97.2*04/24/2021 Prostate cancer (HCC) [C61] 07/10/2021 Abnormal stress test [R94.39] 08/27/2021 Coronary artery disease involving [place] franz*08/27/2021 09/30/2021 Presence of drug coated stent [...] Status:Closed by KAITLIN ROMANO on 11/04/24 [facility] .Auto Diffon 10-24-2024 Basophil, Absolute 0.0 10 3/mcL Normal 0.0-0.3 [facility] Comment on above: Performed By: #### A LUIS F, GFR, CBC, BMP, ADIFF #### [address] [address] Basophils/100 WBC (Bld) 0.0 % Normal 0.0-2.5 [facility] Comment on above: Performed By: #### A LUIS F, GFR, CBC, BMP, ADIFF #### [address] [address] Eosinophil, Absolute 0.0 10 3/mcL Normal 0.0-0.7 [facility] Comment on above: Performed By: #### A LUIS F, GFR, CBC, BMP, ADIFF #### [address] [address] Eosinophils/100 WBC (Bld) 0.0 % Normal 0.0-6.0 [facility] Comment on above: Performed By: #### A LUIS F, GFR, CBC, BMP, ADIFF #### [address] [address] Lymphocyte, Absolute 0.3 10 3/mcL Low 0.9-4.3 [facility] Comment on above: Performed By: #### A LUIS F, GFR, CBC, BMP, ADIFF #### [address] [address] Lymphocytes/100 WBC (Bld) 2.5 % Low 20.0-40.0 [facility] Comment on above: Performed By: #### A LUIS F, GFR, CBC, BMP, ADIFF #### [address] [address] Monocyte, Absolute 1.2 10 3/mcL Normal 0.1-1.4 [facility] Comment on above: Performed By: #### A LUIS F, GFR, CBC, BMP, ADIFF #### [address] [address] Monocytes/100 WBC (Bld) 8.7 % Normal 2.0-13.0 [facility] Comment on above: Performed By: #### A LUIS F, GFR, CBC, BMP, ADIFF #### [address] [address] Neutrophils/100 WBC (Bld) 88.8 % High 50.0-75.0 [facility] Comment on above: Performed By: #### A LUIS F, GFR, CBC, BMP, ADIFF #### [address] [address] .GFRon 10-24-2024 Estimated Glomerular Filtration Rate 77 ml/min/1.73sqm Normal [facility] Comment on above: Result Comment: Stages of [...] Performed By: #### A GUALBERTO DELGADOGEL #### [address] [address] .NEUABSon 10-24-2024 Neutrophil, Absolute 12.1 10 3/mcL High 2.3-8.1 [facility] Comment on above: Performed By: #### A LUIS F, GFR, CBC, BMP, ADIFF #### [address] [address] BMPon 10-24-2024 BUN/Creatinine Ratio 26 ratio Normal 7-27 [facility] Comment on above: Performed By: #### A LUIS F, GFR, CBC, BMP, ADIFF #### [address] [address] Calcium [Mass/Vol] 8.4 mg/dL Normal 8.4-10.2 [facility] Comment on above: Performed By: #### A LUIS F, GFR, CBC, BMP, ADIFF #### [address] [address] Chloride [Moles/Vol] 102 mmol/L Normal 98-107 [facility] Comment on above: Performed By: #### A LUIS F, GFR, CBC, BMP, ADIFF #### [address] [address] CO2 [Moles/Vol] 24 mmol/L Normal 23-31 [facility] Comment on above: Performed By: #### A LUIS F, GFR, CBC, BMP, ADIFF #### [place] [id number] Creatinine [Mass/Vol] 0.99 mg/dL Normal 0.67-1.17 [facility] Comment on above: Performed By: #### A LUIS F, GFR, CBC, BMP, ADIFF #### [place] [address] Electrolyte Balance 9.0 mEq/L Normal 4.0-15.0 [facility] Comment on above: Performed By: #### A LUIS F, GFR, CBC, BMP, ADIFF #### [place] [address] Glucose [Mass/Vol] 211 mg/dL High 83-110 [facility] Comment on above: Performed By: #### A LUIS F, GFR, CBC, BMP, ADIFF #### [place] [address] Potassium [Moles/Vol] 4.9 mmol/L Normal 3.5-5.1 [facility] Comment on above: Performed By: #### A LUIS F, GFR, CBC, BMP, ADIFF #### [place] [address] Sodium [Moles/Vol] 135 mmol/L Low 136-145 [facility] Comment on above: Performed By: #### A LUIS F, GFR, CBC, BMP, ADIFF #### [place] [address] Urea nitrogen [Mass/Vol] 26 mg/dL High 7-18 [facility] Comment on above: Performed By: #### A LUIS F, GFR, CBC, BMP, ADIFF #### [address] [address] CBCon 10-24-2024 Erythrocyte distribution width (RBC) [Ratio] 14.2 % Normal 11.5-15.5 [facility] Comment on above: Performed By: #### A LUIS F, GFR, CBC, BMP, ADIFF #### [place] [address] Hematocrit (Bld) [Volume fraction] 31.4 % Low 40.0-52.0 [facility] Comment on above: Performed By: #### A LUIS F, GFR, CBC, BMP, ADIFF #### [place] [address] Hgb 10.6 G/dL Low 13.0-17.5 [facility] Comment on above: Performed By: #### A LUIS F, GFR, CBC, BMP, ADIFF #### [place] [address] MCH (RBC) [Entitic mass] 29.5 pg Normal 27.0-33.0 [facility] Comment on above: Performed By: #### A LUIS F, GFR, CBC, BMP, ADIFF #### [place] [address] MCHC 33.9 G/dL Normal 32.0-36.0 [facility] Comment on above: Performed By: #### A LUIS F, GFR, CBC, BMP, ADIFF #### [place] [address] MCV (RBC) [Entitic vol] 87.1 fL Normal 81.0-100.0 [facility] Comment on above: Performed By: #### A LUIS F, GFR, CBC, BMP, ADIFF #### [place] [address] Platelet 191 10 3/mcL Normal 150-450 [facility] Comment on above: Performed By: #### A LUIS F, GFR, CBC, BMP, ADIFF #### [place] [address] Platelet mean volume (Bld) [Entitic vol] 8.3 fL Normal 6.4-10.5 [facility] Comment on above: Performed By: #### A LUIS F, GFR, CBC, BMP, ADIFF #### [place] [address] [place], [place] [address] RBC 3.60 10 6/mcL Low 4.50-6.00 [facility] Comment on above: Performed By: #### A LUIS F, GFR, CBC, BMP, ADIFF #### [place] [address] [place], [place] [address] WBC 13.6 10 3/mcL High 4.5-10.8 [facility] Comment on above: Performed By: #### A LUIS F, GFR, CBC, BMP, ADIFF #### [place] [address] [place], [place] [address] LABORATORYOrdered By: SYSTEM SYSTEM on 10-24-2024 Basophils [...] 10-23-2024 ABO/Rh Interp Positive Invalid Interpretation Code [facility] Comment on above: Performed By: #### A BSGEL, ABOGEL #### [place] [address] [place], [place] [address] ABS (Gel)on 10-23-2024 ABSC Interp (Gel) Negative Normal [facility] Comment on above: Performed By: #### A BSGEL, ABOGEL #### [place] [address] [place], [place] [address] LABORATORYOrdered By: Anam Rendon on 10-23-2024 ABO and Rh group Nom (Bld) Blood group O Rh(D) positive Invalid Interpretation Code AO BB Auto SS Blood group antibody screen Ql Negative ABSC (10/23/24 10:51 AM) Normal AO BB Auto SS LABORATORYOrdered By: Wes carmona on 10-23-2024 Glucose [Mass/Vol] 134 mg/dL High 82 - 115 mg/dL [facility] Work Phone: US ANESTHESIA BLOCKon 2024 US ANESTHESIA BLOCK ORIGINAL Images acquired, not reported on this accession number. Normal [facility] XR KNEE 1 OR 2 VIEWS RIGHTon [...] 10/23/2024 1:32:59 PM Ordering Provider: GRISELDA LYNCH [facility] CT KNEE W/O CONTRAST RIGHTon 08-29-2024 [...] medial compartment with asymmetric joint space narrowing, [id number]-vm-jxfe, subchondral sclerosis, subchondral cysts and marginal osteophyte [...] 12:04:08 PM Ordering Provider: GRISELDA LYNCH Normal [facility] MRSAPCRon 08-29-2024 MRSA (PCR) Not detected Normal Not Detected [facility] Comment on above: Result Comment: [place] [id number] Performed By: #### M RSAPCR #### [address] [address] MRSA PCR Int Normal [facility] Comment on above: Result Comment: MRSA DNA [...] Below Performed By: #### M RSAPCR #### [address] [address] Absolute lymphocyte countOrd ered By: Yecenia Agrawal on 08-28-2024 Lymphocytes Auto (Unsp spec) [#/Vol] 0.59 10*3/uL Low 0.83-4.51 [facility] Absolute neutrophil countOrd ered By: Yecenia Agrawal on 08-28-2024 Neutrophils (Bld) [#/Vol] 4.3 10*3/uL 2.0-7.7 [facility] Anion gap in Serum or Plasma Ordered By: Yecenia Alvaradoke on 08-28-2024 Anion gap [Moles/Vol] 10 mmol/L - [facility] Automated lymphocyte count a s percentage of total leukocytesOrdered By: Yecenia Alvaradoke on 08-28-2024 Lymphocytes/100 WBC Auto (Unsp spec) 10.1 % Low 19-41 [facility] BUN/creatinine ratioOrdered By: [facility] Tanja on 08-28-2024 Urea nitrogen/Creatinine [Mass ratio] 18.9 mg/mg 10-20 [facility] Basophil percentageOrdered B y: Yecenia Alvaradoke on 08-28-2024 Basophils/100 WBC (Bld) 0.5 % 0-1 [facility] Bilirubin, totalOrdered By: Yecenia Alvaradoke on 08-28-2024 Bilirubin [Mass/Vol] 0.66 mg/dL 0.00-1.30 [facility] CBC W/Diff, Automatedon 08-14 Absolute Lymph 0.59 X10 3/uL Low 0.83-4.51 [facility] Comment on above: Order Comment: Order Date: 08/28/24Order Info: 0184-1 - CBCD Performed By: #### L 100.0100, L500.4050, L501.9985, L500.4100 ####[facility] [address] [place], [place], [phone] Absolute Neut 4.3 X10 3/uL Normal 2.0-7.7 [facility] Comment on above: Order Comment: Order Date: 08/28/24Order Info: 0184-1 - CBCD Performed By: #### L 100.0100, L500.4050, L501.9985, L500.4100 ####[facility] [address] [place], [address] Basophils/100 WBC (Bld) 0.5 % Normal 0-1 [facility] Comment on above: Order Comment: Order Date: 08/28/24Order Info: 0184-1 - CBCD Performed By: #### L 100.0100, L500.4050, L501.9985, L500.4100 ####[facility] [address] [place], [address] Eosinophils/100 WBC (Bld) 5.1 % High 0-5 [facility] Comment on above: Order Comment: Order Date: 08/28/24Order Info: 0184-1 - CBCD Performed By: #### L 100.0100, L500.4050, L501.9985, L500.4100 ####[facility] [address] [place], [address] Erythrocyte distribution width (RBC) [Ratio] 14.0 % Normal 11.6-14.6 [facility] Comment on above: Order Comment: Order Date: 08/28/24Order Info: 0184-1 - CBCD Performed By: #### L 100.0100, L500.4050, L501.9985, L500.4100 ####[facility] [address] [place], [address] Hematocrit (Bld) [Volume fraction] 38.1 % Low 40-54 [facility] Comment on above: Order Comment: Order Date: 08/28/24Order Info: 0184-1 - CBCD Performed By: #### L 100.0100, L500.4050, L501.9985, L500.4100 ####[facility] [address] [place], [address] Hemoglobin (Bld) [Mass/Vol] 12.4 g/dL Low 13.0-16.5 [facility] Comment on above: Order Comment: Order Date: 08/28/24Order Info: 0184-1 - CBCD Performed By: #### L 100.0100, L500.4050, L501.9985, L500.4100 ####[facility] [address] [place], [address] IG% 0.200 Normal 0.0-0.9 [facility] Comment on above: Order Comment: Order Date: 08/28/24Order Info: 0184-1 - CBCD Result Comment: IG% - Immature Granulocytes (promyelocytes, myelocytes and metamyelocytes) > 1% indicates that a LEFT SHIFT is Present. Performed By: #### L 100.0100, L500.4050, L501.9985, L500.4100 ####[facility] [address] [place], [address] Lymphocytes/100 WBC (Bld) 10.1 % Low 19-41 [facility] Comment on above: Order Comment: Order Date: 08/28/24Order Info: 0184- - CBCD Performed By: #### L 100.0100, L500.4050, L501.9985, L500.4100 ####[facility] [address] [place], [address] MCH (RBC) [Entitic mass] 29.2 pg Normal 27.0-32.0 [facility] Comment on above: Order Comment: Order Date: 08/28/24Order Info: 0184-1 - CBCD Performed By: #### L 100.0100, L500.4050, L501.9985, L500.4100 ####[facility] [address] [place], [address] MCHC (RBC) [Mass/Vol] 32.5 g/dL Normal 32-36 [facility] Comment on above: Order Comment: Order Date: 08/28/24Order Info: 0184-1 - CBCD Performed By: #### L 100.0100, L500.4050, L501.9985, L500.4100 ####[facility] [address] [place], [address] MCV (RBC) [Entitic vol] 89.6 fL Normal 80-94 [facility] Comment on above: Order Comment: Order Date: 08/28/24Order Info: 0184-1 - CBCD Performed By: #### L 100.0100, L500.4050, L501.9985, L500.4100 ####[facility] [address] [place], [address] Monocytes/100 WBC (Bld) 10.4 % High 0-10 [facility] Comment on above: Order Comment: Order Date: 08/28/24Order Info: 0184-1 - CBCD Performed By: #### L 100.0100, L500.4050, L501.9985, L500.4100 ####[facility] [address] [place], [address] Neutrophils/100 WBC (Bld) 73.7 % High 47-70 [facility] Comment on above: Order Comment: Order Date: 08/28/24Order Info: 0184-1 - CBCD Performed By: #### L 100.0100, L500.4050, L501.9985, L500.4100 ####[facility] [address] [place], [address] Nucleated RBC (Bld) [#/Vol] 0 10*3/uL Normal 0-5 [facility] Comment on above: Order Comment: Order Date: 08/28/24Order Info: 0184-1 - CBCD Performed By: #### L 100.0100, L500.4050, L501.9985, L500.4100 ####[facility] [address] [place], [address] Platelet mean volume (Bld) [Entitic vol] 10.3 fL Normal 6.2-12.0 [facility] Comment on above: Order Comment: Order Date: 08/28/24Order Info: 0184-1 - CBCD Performed By: #### L 100.0100, L500.4050, L501.9985, L500.4100 ####[facility] [address] [place], [address] Platelets (Bld) [#/Vol] 229 10*3/uL Normal 150-450 [facility] Comment on above: Order Comment: Order Date: 08/28/24Order Info: [id number] - CBCD Performed By: #### L 100.0100, L500.4050, L501.9985, L500.4100 ####[facility] [address] [place], [address] RBC (Bld) [#/Vol] 4.25 10*6/uL Low 4.6-6.2 [facility] Comment on above: Order Comment: Order Date: 08/28/24Order Info: [id number] - CBCD Performed By: #### L 100.0100, L500.4050, L501.9985, L500.4100 ####[facility] [address] [place], [address] RDW SD 45.1 fl High 35.1-43.9 [facility] Comment on above: Order Comment: Order Date: 08/28/24Order Info: [id number] - CBCD Performed By: #### L 100.0100, L500.4050, L501.9985, L500.4100 ####[facility] [address] [place], [address] WBC (Bld) [#/Vol] 5.9 10*3/uL Normal 4.4-11.0 [facility] Comment on above: Order Comment: Order Date: 08/28/24Order Info: [id number] - CBCD Performed By: #### L 100.0100, L500.4050, L501.9985, L500.4100 ####[facility] [address] [place], [address] Calculated very low density lipoprotein (VLDL) cholesterol measurementOrdered By: Yecenia Agrawal on 08-28-2024 Calculated very low density lipoprotein (VLDL) cholesterol measurement 17 mg/dL 5-40 [facility] VLDL Cholesterol 17 mg/dL 5-40 [facility] Carbon dioxide, total [Moles /volume] in Central venous bloodOrdered By: Yecenia Agrawal on 08-28-2024 CO2 [Moles/Vol] 21.0 mmol/L 21.0-32.0 [facility] Chloride assayOrdered By: Jerome Agrawal on 08-28-2024 Chloride [Moles/Vol] 107 mmol/L 98-108 [facility] Comprehensive Metabolic Prof ilon 08-28-2024 Albumin [Mass/Vol] 4.0 g/dL Normal 3.4-4.8 [facility] Comment on above: Order Comment: Order Date: 08/28/24Order Info: [id number] - CMPOrder Info: [id number] - LIPID Performed By: #### L 100.0100, L500.4050, L501.9985, L500.4100 ####[facility] [address] [place], [address] Albumin/Globulin [Mass ratio] 1.4 {ratio} Normal 0.9-2.4 [facility] Comment on above: Order Comment: Order Date: 08/28/24Order Info: [id number] - CMPOrder Info: [id number] - LIPID Performed By: #### L 100.0100, L500.4050, L501.9985, L500.4100 ####[facility] [address] [place], [address] ALK PHOS 127 U/L Normal 40-129 [facility] Comment on above: Order Comment: Order Date: 08/28/24Order Info: [id number] - CMPOrder Info: [id number] - LIPID Performed By: #### L 100.0100, L500.4050, L501.9985, L500.4100 ####[facility] [address] [place], [address] ALT [Catalytic activity/Vol] 19 U/L Normal <=46 [facility] Comment on above: Order Comment: Order Date: 08/28/24Order Info: [id number] - CMPOrder Info: [id number] - LIPID Performed By: #### L 100.0100, L500.4050, L501.9985, L500.4100 ####[facility] [address] [place], [address] AST [Catalytic activity/Vol] 26 U/L Normal <=37 [facility] Comment on above: Order Comment: Order Date: 08/28/24Order Info: [id number] - CMPOrder Info: [id number] - LIPID Performed By: #### L 100.0100, L500.4050, L501.9985, L500.4100 ####[facility] [address] [place], [address] Bilirubin [Mass/Vol] 0.66 mg/dL Normal 0.00-1.30 [facility] Comment on above: Order Comment: Order Date: 08/28/24Order Info: [id number] - CMPOrder Info: [id number] - LIPID Performed By: #### L 100.0100, L500.4050, L501.9985, L500.4100 ####[facility] [address] [place], [address] BUN/CRE 18.9 RATIO Normal 10-20 [facility] Comment on above: Order Comment: Order Date: 08/28/24Order Info: [id number] - CMPOrder Info: [id number] - LIPID Performed By: #### L 100.0100, L500.4050, L501.9985, L500.4100 ####[facility] [address] [place], [address] Calcium [Mass/Vol] 9.2 mg/dL Normal 7.6-11.0 [facility] Comment on above: Order Comment: Order Date: 08/28/24Order Info: [id number] - CMPOrder Info: [id number] - LIPID Performed By: #### L 100.0100, L500.4050, L501.9985, L500.4100 ####[facility] [address] [place], [address] Chloride [Moles/Vol] 107 mmol/L Normal 98-108 [facility] Comment on above: Order Comment: Order Date: 08/28/24Order Info: [id number] - CMPOrder Info: [id number] - LIPID Performed By: #### L 100.0100, L500.4050, L501.9985, L500.4100 ####[facility] [address] [place], [address] CO2 [Moles/Vol] 21.0 mmol/L Normal 21.0-32.0 [facility] Comment on above: Order Comment: Order Date: 08/28/24Order Info: [id number] - CMPOrder Info: [id number] - LIPID Performed By: #### L 100.0100, L500.4050, L501.9985, L500.4100 ####[facility] [address] [place], [address] Creatinine [Mass/Vol] 1.04 mg/dL Normal 0.70-1.20 [facility] Comment on above: Order Comment: Order Date: 08/28/24Order Info: [id number] - CMPOrder Info: [id number] - LIPID Performed By: #### L 100.0100, L500.4050, L501.9985, L500.4100 ####[facility] [address] [place], [address] GAP 10 Normal 5-15 [facility] Comment on above: Order Comment: Order Date: 08/28/24Order Info: [id number] - CMPOrder Info: [id number] - LIPID Performed By: #### L 100.0100, L500.4050, L501.9985, L500.4100 ####[facility] [address] [place], [address] GFR/1.73 sq M.predicted among non-blacks MDRD (S/P/Bld) [Vol rate/Area] 73 mL/min/{1.73_m2} Normal >60 [facility] Comment on above: Order Comment: Order Date: 08/28/24Order Info: [id number] - CMPOrder Info: [id number] - LIPID Result Comment: mL/m in/1.73m2 CKD-EPI Creatinine Equation (2020) Performed By: #### L 100.0100, L500.4050, L501.9985, L500.4100 ####[facility] [address] [place], [address] Globulin (S) [Mass/Vol] 2.8 g/dL Normal 2.2-4.2 [facility] Comment on above: Order Comment: Order Date: 08/28/24Order Info: [id number] - CMPOrder Info: [id number] - LIPID Performed By: #### L 100.0100, L500.4050, L501.9985, L500.4100 ####[facility] [address] [place], [address] Glucose [Mass/Vol] 122 mg/dL High 70-99 [facility] Comment on above: Order Comment: Order Date: 08/28/24Order Info: [id number] - CMPOrder Info: [id number] - LIPID Performed By: #### L 100.0100, L500.4050, L501.9985, L500.4100 ####[facility] [address] [place], [address] Potassium [Moles/Vol] 4.5 mmol/L Normal 3.3-5.1 [facility] Comment on above: Order Comment: Order Date: 08/28/24Order Info: [id number] - CMPOrder Info: [id number] - LIPID Performed By: #### L 100.0100, L500.4050, L501.9985, L500.4100 ####[facility] [address] [place], [address] Sodium [Moles/Vol] 138 mmol/L Normal 133-145 [facility] Comment on above: Order Comment: Order Date: 08/28/24Order Info: [id number] - CMPOrder Info: [id number] - LIPID Performed By: #### L 100.0100, L500.4050, L501.9985, L500.4100 ####[facility] [address] [place], [address] T PROT 6.8 g/dL Normal 5.9-8.4 [facility] Comment on above: Order Comment: Order Date: 08/28/24Order Info: [id number] - CMPOrder Info: [id number] - LIPID Performed By: #### L 100.0100, L500.4050, L501.9985, L500.4100 ####[facility] [address] [place], [address] Urea nitrogen [Mass/Vol] 20 mg/dL High 4-19 [facility] Comment on above: Order Comment: Order Date: 08/28/24Order Info: [id number] - CMPOrder Info: [id number] - LIPID Performed By: #### L 100.0100, L500.4050, L501.9985, L500.4100 ####[facility] [address] [place], [address] Eosinophil percentageOrdered By: Yecenia Agrawal on 08-28-2024 Eosinophils/100 WBC (Bld) 5.1 % High 0-5 [facility] Erythrocyte distribution wid th (RBC) [Ratio]Ordered By: Yecenia Agrawal on 08-28-2024 Erythrocyte distribution width (RBC) [Entitic vol] 45.1 fL High 35.1-43.9 [facility] Erythrocyte distribution wid th ratioOrdered By: Yecenia Agrawal on 08-28-2024 Erythrocyte distribution width (RBC) [Ratio] 14.0 % 11.6-14.6 [facility] Erythrocyte distribution wid th standard deviationOrdered By: Yecenia Agrawal on 08-28-2024 Erythrocyte distribution width (RBC) [Ratio] 45.1 fl High 35.1-43.9 [facility] GFR/1.73 sq M.predicted kelly g non-blacks MDRD (S/P/Bld) [Vol rate/Area]Ordered By: Yecenia Agrawal on 08-28-2024 Estimated GFR (MDRD) Non-Af Amer 73 >60 [facility] Comment on above: mL/min/1.73m2 CKD-EP I Creatinine Equation (2020) Glomerular filtration rate ( GFR) estimation/1.73 sq m using serum, plasma, or whole bOrdered By: Yecenia Agrawal on 08-28-2024 GFR/1.73 sq M.predicted among non-blacks MDRD (S/P/Bld) [Vol rate/Area] 73 mL/min/{1.73_m2} >60 [facility] Comment on above: mL/min/1.73m2 CKD-EP I Creatinine Equation (2020) Hematocrit Auto (Bld) [Volum e fraction]Ordered By: Yecenia Agrawal on 08-28-2024 Hematocrit (Bld) [Volume fraction] 38.1 % Low 40-54 [facility] Hemoglobin A1con 08-28-2024 HbA1c (Bld) [Mass fraction] 7.3 % High <=5.6 [facility] Comment on above: Order Comment: Order Date: 08/28/24Order Info: [id number] - A1C Result Comment: Norm al < 5.7 % Prediabetic 5.7 - 6.4 % Diabetic >or= 6.5 % Please note range changes. Performed By: #### L 100.0100, L500.0910, L501.0452, L500.9068 ####[facility] [address] [place], [place], [id number] Hemoglobin A1c percentageOrd ered By: Yecenia Agrawal on 08-28-2024 HbA1c (Bld) [Mass fraction] 7.3 % High <5.7 [facility] Comment on above: Normal < 5.7 % Predi abetic 5.7 - 6.4 % Diabetic >or= 6.5 % Please note range changes. Hemoglobin measurementOrdere d By: Yecenia Agrawal on 08-28-2024 Hemoglobin (Bld) [Mass/Vol] 12.4 g/dL Low 13.0-16.5 [facility] Immature granulocytes/100 WB C Auto (Bld)Ordered By: Yecenia Agrawal on 08-28-2024 Immature granulocytes/100 WBC (Bld) 0.200 % 0.0-0.9 [facility] Comment on above: IG% - Immature Granu locytes (promyelocytes, myelocytes and metamyelocytes) > 1% indicates that a LEFT SHIFT is Present. LDL calc ser/plasOrdered By: Yecenia Agrawal on 08-28-2024 Cholesterol in LDL [Mass/Vol] 60 mg/dL [facility] Comment on above: Lwfsbofrvd=445-770 m g/dL & Higher Zkxy=371 mg/dL or greater LDL Cholesterol, Calculated 60 mg/dL [facility] Comment on above: Genkxpvdij=689-451 m g/dL & Higher Ihyw=735 mg/dL or greater Laboratory - Chemistry and C hemistry - challengeOrdered By: Yecenia Agrawal on 08-28-2024 AST [Catalytic activity/Vol] 26 U/L <38 [facility] Lipid Profileon 08-28-2024 CHOL:HDL 3.26 Normal [facility] Comment on above: Order Comment: Order Date: 08/28/24Order Info: [id number] - CMPOrder Info: [id number] - LIPID Performed By: #### L 100.0100, L500.4050, L501.9985, L500.4100 ####[facility] [address] [place], [place], [id number] Cholesterol [Mass/Vol] 112 mg/dL Normal <=200 [facility] Comment on above: Order Comment: Order Date: 08/28/24Order Info: [id number] - CMPOrder Info: [id number] - LIPID Result Comment: Chol esterol level, Desirable <200 mg/dL Borderline high cholesterol 200-239 mg/dL High cholesterol >=240 mg/dL Recommendations of the NCEP Adult Treatment Panel for the following risk-cutoff thresholds for the [place] population. Performed By: #### L 100.0100, L500.4050, L501.9985, L500.4100 ####[facility] [address] [place], [address] Cholesterol in HDL [Mass/Vol] 34 mg/dL Low [facility] Comment on above: Order Comment: Order Date: 08/28/24Order Info: [id number] - CMPOrder Info: [id number] - LIPID Result Comment: Gina onal Cholesterol Education Program (NCEP) guidelines: <40 mg/dL: Low HDL-cholesterol (major risk factor for CHD) >= 60 mg/dL: High HDL-cholesterol (negative risk factor for CHD) HDL-cholesterol is affected by a number of factors, e.g. smoking, exercise, hormones, sex and age. Performed By: #### L 100.0100, L500.4050, L501.9985, L500.4100 ####[facility] [address] [place], [address] Cholesterol in LDL [Mass/Vol] 60 mg/dL Normal [facility] Comment on above: Order Comment: Order Date: 08/28/24Order Info: 0786-1 - CMPOrder Info: [id number] - LIPID Result Comment: Bord oljiai=620-163 mg/dL Higher Amdr=439 mg/dL or greater Performed By: #### L 100.0100, L500.4050, L501.9985, L500.4100 ####[facility] [address] [place], [address] Cholesterol in VLDL [Mass/Vol] 17 mg/dL Normal 5-40 [facility] Comment on above: Order Comment: Order Date: 08/28/24Order Info: [id number] - CMPOrder Info: [id number] - LIPID Performed By: #### L 100.0100, L500.4050, L501.9985, L500.4100 ####[facility] [address] [place], [address] Triglyceride [Mass/Vol] 87 mg/dL Normal [facility] Comment on above: Order Comment: Order Date: 08/28/24Order Info: [id number] - CMPOrder Info: [id number] - LIPID Result Comment: The drugs N-Acetylcysteine and Metamizole may falsely depress this assay. Normal range: <150 mg/dL Borderline High: 150-199 mg/dL High: 200-499 mg/dL Very High: >500 mg/dL Performed By: #### L 100.0100, L500.4050, L501.9985, L500.4100 ####[facility] [address] [place], [address] Lymphocytes Auto (Unsp spec) [#/Vol]Ordered By: Yecenia Agrawal on 08-28-2024 Lymphocytes (Bld) [#/Vol] 0.59 10*3/uL Low 0.83-4.51 [facility] Lymphocytes/100 WBC Auto (Un sp spec)Ordered By: Yecenia Agrawal on 08-28-2024 Lymphocytes/100 WBC (Bld) 10.1 % Low 19-41 [facility] MCV (mean corpuscular volume ) determinationOrdered By: Yecenia Agrawal on 08-28-2024 MCV (RBC) [Entitic vol] 89.6 fL 80-94 [facility] Mean corpuscular hemoglobin (MCH) determinationOrdered By: Yecenia Agrawal on 08-28-2024 MCH (RBC) [Entitic mass] 29.2 pg 27.0-32.0 [facility] Mean corpuscular hemoglobin concentration (MCHC) determinationOrdered By: Yecenia Agrawal on 08-28-2024 MCHC (RBC) [Mass/Vol] 32.5 g/dL 32-36 [facility] Mean platelet volume determi nationOrdered By: Yecenia Agrawal on 08-28-2024 Platelet mean volume (Bld) [Entitic vol] 10.3 fL 6.2-12.0 [facility] Monocyte percentageOrdered B y: Yecenia Agrawal on 08-28-2024 Monocytes/100 WBC (Bld) 10.4 % High 0-10 [facility] Neutrophil percentageOrdered By: Yecenia Agrawal on 08-28-2024 Neutrophils/100 WBC (Bld) 73.7 % High 47-70 [facility] Nucleated red blood cell per centageOrdered By: Yecenia Agrawal on 08-28-2024 Nucleated RBC/100 WBC (Bld) [Ratio] 0 % 0-5 [facility] Platelet countOrdered By: Jerome Agrawal on 08-28-2024 Platelets (Bld) [#/Vol] 229 10*3/uL 150-450 [facility] Potassium (Unsp spec) [Mass/ Vol]Ordered By: Yecenia Agrawal on 08-28-2024 Potassium [Moles/Vol] 4.5 mmol/L 3.3-5.1 [facility] Potassium measurement (mass/ volume)Ordered By: Yecenia Agrawal on 08-28-2024 Potassium (Unsp spec) [Mass/Vol] 4.5 mmol/L 3.3-5.1 [facility] RBC Auto (Bld) [#/Vol]Ordere d By: Yecenia Agrawal on 08-28-2024 RBC (Bld) [#/Vol] 4.25 10*6/uL Low 4.6-6.2 [facility] Screening total cholesterol/ high density lipoprotein (HDL) cholesterol ratioOrdered By: Yecenia Agrawal on 08-28-2024 Cholesterol.total/Cho lesterol in HDL [Mass ratio] 3.26 {ratio} [facility] Serum creatinine measurement (mass/volume)Ordered By: Yecenia Agrawal on 08-28-2024 Creatinine [Mass/Vol] 1.04 mg/dL 0.70-1.20 [facility] Serum globulin measurementOr dered By: Yecenia Agrawal on 08-28-2024 Globulin (S) [Mass/Vol] 2.8 g/dL 2.2-4.2 [facility] Serum glucose measurement (m ass/volume)Ordered By: Yecenia Agrawal on 08-28-2024 Glucose [Mass/Vol] 122 mg/dL High 70-99 [facility] Serum or plasma alanine keen otransferase (ALT) measurementOrdered By: Yecenia Agrawal on 08-28-2024 ALT [Catalytic activity/Vol] 19 U/L <47 [facility] Serum or plasma albumin kyleigh urement (mass/volume)Ordered By: Yecenia Agrawal on 08-28-2024 Albumin [Mass/Vol] 4.0 g/dL 3.4-4.8 [facility] Serum or plasma albumin/glob ulin mass ratioOrdered By: Yecenia Agrawal on 08-28-2024 Albumin/Globulin [Mass ratio] 1.4 {ratio} 0.9-2.4 [facility] Serum or plasma alkaline alexandra sphatase measurementOrdered By: Yecenia Agrawal on 08-28-2024 ALP [Catalytic activity/Vol] 127 U/L 40-129 [facility] Serum or plasma calcium kyleigh urement (mass/volume)Ordered By: Yecenia Agrawal on 08-28-2024 Calcium [Mass/Vol] 9.2 mg/dL 7.6-11.0 [facility] Serum or plasma cholesterol in HDL measurement (mass/volume)Ordered By: Yecenia Agrawal on 08-28-2024 Cholesterol in HDL [Mass/Vol] 34 mg/dL Low >40 [facility] Comment on above: National Cholesterol Education Program (NCEP) guidelines:<40 mg/dL: Low HDL-cholesterol (major risk factor for CHD)>= 60 mg/dL: High HDL-cholesterol (negative risk factor for CHD)HDL-cholesterol is affected by a number of factors, e.g. smoking, exercise, hormones, sex and age. Serum or plasma cholesterol measurement (mass/volume)Ordered By: Yecenia Agrawal on 08-28-2024 Cholesterol [Mass/Vol] 112 mg/dL <201 [facility] Comment on above: Cholesterol level, D esirable <200 mg/dLBorderline high cholesterol 200-239 mg/dLHigh cholesterol >=240 mg/dLRecommendations of the NCEP Adult Treatment Panel for the following risk-cutoff thresholds for the [place] population. Serum or plasma urea nitroge n measurement (mass/volume)Ordered By: Yecenia Agrawal on 08-28-2024 Urea nitrogen [Mass/Vol] 20 mg/dL High 4-19 [facility] Sodium levelOrdered By: Freddy Agrawal on 08-28-2024 Sodium [Moles/Vol] 138 mmol/L 133-145 [facility] Total proteinOrdered By: Rhonda Agrawal on 08-28-2024 Protein [Mass/Vol] 6.8 g/dL 5.9-8.4 [facility] Triglycerides measurementOrd ered By: Yecenia Agrawal on 08-28-2024 Triglyceride [Mass/Vol] 87 mg/dL <199 [facility] Comment on above: The drugs N-Acetylcy steine and Metamizole may falsely depress this assay. Normal range: <150 mg/dLBorderline High: 150-199 mg/dLHigh: 200-499 mg/dLVery High: >500 mg/dL White blood cell (WBC) count Ordered By: Yecenia Agrawal on 08-28-2024 WBC (Bld) [#/Vol] 5.9 10*3/uL 4.4-11.0 [facility] PSA SerPl-mCncon 08-21-2024 Prostate specific Ag [Mass/Vol] 0.33 ng/mL Normal <2.60 [facility] Comment on above: Order Comment: Speci men Type: BLOOD SPECIMEN Ordering Facility: [facility] Address: [address] [place] [address] Result Comment: Tota l PSA test methodology used is the Electrochemiluminescence Immunoassay by [employer]. Total PSA values by differing methodologies cannot be interchanged. Performed By: #### 2 857-1 #### [facility] CLIA [id number] [address] [place] [address] [place] Testost SerPl-mCncon 025 Testosterone [Mass/Vol] 280 ng/dL Normal 193-824 [facility] Comment on above: Order Comment: Speci men Type: BLOOD SPECIMEN Ordering Facility: [facility] Address: [address] [place] [address] Result Comment: A te stosterone level in the 193-320 ng/dL range with associated clinical symptoms is considered low and may indicate hypogonadism (from NEJM 2010 363:123-135). Results >320 ng/dL are considered normal. Performed By: #### 2 986-8 #### [facility] CLIA [id number] [address] [place] [address] [place] PET/CT PROSTATE WBon 02-0 NM PET/CT PROSTATE WB * * *Final Report* * * DATE OF EXAM: Jun 18 2024 3:34PM [facility] 0093 - [place] PET/CT PROSTATE WB / PROCEDURE REASON: Prostate cancer (HCC) * * * * Physician Interpretation * * * * EXAMINATION: PROSTATE-SPECIFIC MEMBRANE ANTIGEN PET-CT CLINICAL HISTORY: History of prostate cancer with rising PSA being evaluated for recurrence. EMR: resected [id number] prostate cancer status post 6600 cGy in [...] refer to the synoptic report for details. Morning News Anchor: [facility] Transcribe Date/Time: Jun 20 2024 8:40A Dictated by : CHINA WASHINGTON MD This examination was interpreted and the report reviewed and electronically signed by: CHINA WASHINGTON MD on Jun 20 2024 9:06AM EST [id number] Normal [facility] Kiet 06-07-2024 [facility] JERMAINE BEGUM ([id number]) 1945 M NFR Date Time Provider Department 06/07/24 TIFFANIE CHEUNG During your visit today, we recorded the following information about you: Tiffanie Cheung RN 06/07/2024 11:25 AM Signed This form is used for MAIN CAMPUS APPOINTMENTS ONLY. Is this request for a [facility] [place] PET scan appointment? Yes: Kennel Attendant: Tiffanie Cheung RN Requesting Person (Last Name, First Name): Tiffanie Cheung [facility] Area Code + Phone/Pager: [facility] #[phone] Who do we call to schedule this [...] 06/07/2024 1:26 PM Addendum PSMA Comments for Supervisor Film Processing: any site Will the patient need anesthesia: no Primary Insurance: [place] Diagnosis: Prostate cancer (HCC) [C61] Initial/Subsequent: Subsequent [...] F-18 flotufolastat,18F flotufolastat Posluma GA68 PSMA PET 66002/YUEAMETZ (Gallium GA-68 Gozetotide) (6 mCi) A9800 - Posluma (Flotufolastat F18) (8mCi), A9608 - Region Auth#: [id number] Date Range: 06-07-24 to 09-04-24 for 1 dos NPI: MARIE BEAVERS [id number] Member ID: Judy [id number] Site/Contact: Berto Case/Ref#: Notes: system auto approved PET/Ct Prostate Route to or Requested Scheduling Pool: P PET MARKETING [employer]IST[employer] Wilfredo AGUIAR CLERICAL POOL([place]), Wilfredo HANNA METAL RIVETER Sara Lux 06/08/2024 8:23 AM Signed 06/08 lvAva Painter 06/08/2024 1:29 PM Signed Scheduled 06/18 @ 1400 Allergies As of Date: 06/07/2024 (No Known Allergies) Date Reviewed: 05/24/2023 Reviewed by: Precious Deleon MA - Fully Assessed Reason for Visit: Nm Pet Request [6111] Prescriptions as of 06/08/2024 - spironolactone (ALDACTONE) [...] NOS [M10.9] 02/28/2007 Coronary artery disease involving [place] franz* Medication Side Effects [T88.7XXA] 01/09/2010 BPH w urinary obs/LUTS [N40.1, N13.8] 06/08/2010 Elevated PSA [R97.20] 07/06/2010 Gynecomastia [N62] 12/23/2011 Allergic rhinitis [J30.9] 10/02/2012 Controlled type 2 diabetes mellitus without com*11/10/2017 Elevated prostate specific antigen (PSA) [R97.2*04/24/2021 Prostate cancer (HCC) [C61] 07/10/2021 Abnormal stress test [R94.39] 08/27/2021 Coronary artery disease involving [place] franz*08/27/2021 09/30/2021 Presence of drug coated stent [...] [N17.9] 0 (more content not included)... Normal [facility] PSA SerPl-mCncon 05-23-2024 Prostate specific Ag [Mass/Vol] 0.22 ng/mL Normal <2.60 [facility] Comment on above: Order Comment: Speci men Type: BLOOD SPECIMEN Ordering Facility: [facility] Address: [address] [place] [address] Result Comment: Suha grullon PSA test methodology used is the Electrochemiluminescence Immunoassay by [employer]. Total PSA values by differing methodologies cannot be interchanged. Performed By: #### 2 857-1 #### [facility] CLIA [id number] [address] [place] [address] OF [facility] Testost SerPl-mCncon 025 Testosterone [Mass/Vol] 221 ng/dL Normal 193-824 [facility] Comment on above: Order Comment: Speci men Type: BLOOD SPECIMEN Ordering Facility: [facility] Address: [address] [place] [address] Result Comment: A te stosterone level in the 193-320 ng/dL range with associated clinical symptoms is considered low and may indicate hypogonadism (from [facility] 2010 363:123-135). Results >320 ng/dL are considered normal. Performed By: #### 2 986-8 #### [facility] CLIA [id number] [address] [place] [address] Cardiac Cath [employer]icon Cardiac Cath Diagnostic [facility] [address] [place] [id number] Cardiac Cath Diagnostic MR#: [id number] Acct: [id number] Name: JERMAINE BEGUM Rep #: [id number] : 1945 78 From: Junior Johnson MD PCP: Dr. Yecenia Agrawal MD Status:[facility] Patient Name: JERMAINE BEGUM Study Date: 05/03/2024 Performing: Junior Johnson MD Ht: 73 inches 185.42 cm : 1945 Wt: 237 lbs 107.5 kg Age: 78 Gender: male BSA: 2.31 PROCEDURE(S) PERFORMED [id number]-([id number])LHC/COR/LV/CABG CLINICAL PROFILE AND INDICATIONS Indications: Other Heart [...] Dictated: 05/03/24 1223 Date Transcribed: 05/03/24 1319 [employer] Anchor: [place] Signed Normal [facility] Absolute neutrophil countOrd ered By: Talia Quinteros on 04-27-2024 Neutrophils (Bld) [#/Vol] 5.3 10*3/uL 2.0-7.7 [facility] Basic Metabolic Profile (BMP )on 04-27-2024 BUN/CRE 18.5 RATIO Normal 10-20 [facility] Comment on above: Performed By: #### L 500.2500, L100.0100 #### [facility] [address] [place], [address] CA,Total 9.2 mg/dL Normal 8.5-10.1 [facility] Comment on above: Performed By: #### L 500.2500, L100.0100 #### [facility] [address] [place], [address] Chloride [Moles/Vol] 108 mmol/L High 98-107 [facility] Comment on above: Performed By: #### L 500.2500, L100.0100 #### [facility] [address] [place], [address] CO2 [Moles/Vol] 26.0 mmol/L Normal 21.0-32.0 [facility] Comment on above: Performed By: #### L 500.2500, L100.0100 #### [facility] [address] [place], [address] Creatinine [Mass/Vol] 1.08 mg/dL Normal 0.70-1.30 [facility] Comment on above: Result Comment: The validity of the calculated GFR GFRAA in patients over 70 years has not been determined. Clinical correlation is essential. Performed By: #### L 500.2500, L100.0100 #### [facility] [address] [place], [address] EST GFR - AA 85 mL/min Normal >60 [facility] Comment on above: Result Comment: Afri can [place] GFR Calc Performed By: #### L 500.2500, L100.0100 #### [facility] [address] [place], [address] GAP 5 Normal 5-15 [facility] Comment on above: Performed By: #### L 500.2500, L100.0100 #### [facility] [address] [place], [address] GFR/1.73 sq M.predicted among non-blacks MDRD (S/P/Bld) [Vol rate/Area] 70 mL/min/{1.73_m2} Normal >60 [facility] Comment on above: Result Comment: Non- GFR Calc Performed By: #### L 500.2500, L100.0100 #### [facility] [address] [place], [address] Glucose [Mass/Vol] 107 mg/dL High 74-106 [facility] Comment on above: Result Comment: Fast ing Glucose result from 100 to 125 mg/dL suggests IMPAIRED HOMEOSTASIS per A.D.A. criteria. Performed By: #### L 500.2500, L100.0100 #### [facility] [address] [place], [address] Potassium [Moles/Vol] 4.3 mmol/L Normal 3.5-5.1 [facility] Comment on above: Performed By: #### L 500.2500, L100.0100 #### [facility] [address] [place], [address] Sodium [Moles/Vol] 140 mmol/L Normal 136-145 [facility] Comment on above: Performed By: #### L 500.2500, L100.0100 #### [facility] [address] [place], [address] Urea nitrogen [Mass/Vol] 20 mg/dL High 7-18 [facility] Comment on above: Performed By: #### L 500.2500, L100.0100 #### [facility] [address] [place], [address] Basophil percentageOrdered B y: Talia Quinteros on 04-27-2024 Basophils/100 WBC (Bld) 0.3 % 0- [facility] Blood urea nitrogen (BUN)/cr eatinine ratioOrdered By: Talia Quinteros on 04-27-2024 Urea nitrogen/Creatinine [Mass ratio] 18.5 mg/mg 10- [facility] CBC W/Diff, Automatedon 04-15 Absolute Lymph 0.77 X10 3/uL Low 0.83-4.51 [facility] Comment on above: Performed By: #### L 500.2500, L100.0100 #### [facility] [address] [place], [address] Absolute Neut 5.3 X10 3/uL Normal 2.0-7.7 [facility] Comment on above: Performed By: #### L 500.2500, L100.0100 #### [facility] [address] [place], [address] Basophils/100 WBC (Bld) 0.3 % Normal 0-1 [facility] Comment on above: Performed By: #### L 500.2500, L100.0100 #### [facility] [address] [place], [address] Eosinophils/100 WBC (Bld) 2.8 % Normal 0-5 [facility] Comment on above: Performed By: #### L 500.2500, L100.0100 #### [facility] [address] [place], [address] Erythrocyte distribution width (RBC) [Ratio] 14.3 % Normal 11.6-14.6 [facility] Comment on above: Performed By: #### L 500.2500, L100.0100 #### [facility] [address] [place], [address] Hematocrit (Bld) [Volume fraction] 37.3 % Low 40-54 [facility] Comment on above: Performed By: #### L 500.2500, L100.0100 #### [facility] [address] [place], [address] Hemoglobin (Bld) [Mass/Vol] 12.2 g/dL Low 13.0-16.5 [facility] Comment on above: Performed By: #### L 500.2500, L100.0100 #### [facility] [address] [place], [address] IG% 0.400 Normal 0.0-0.9 [facility] Comment on above: Result Comment: IG% - Immature Granulocytes (promyelocytes, myelocytes and metamyelocytes) > 1% indicates that a LEFT SHIFT is Present. Performed By: #### L 500.2500, L100.0100 #### [facility] [address] [place], [address] Lymphocytes/100 WBC (Bld) 11.0 % Low 19-41 [facility] Comment on above: Performed By: #### L 500.2500, L100.0100 #### [facility] [address] [place], [address] MCH (RBC) [Entitic mass] 29.2 pg Normal 27.0-32.0 [facility] Comment on above: Performed By: #### L 500.2500, L100.0100 #### [facility] [address] [place], [address] MCHC (RBC) [Mass/Vol] 32.7 g/dL Normal 32-36 [facility] Comment on above: Performed By: #### L 500.2500, L100.0100 #### [facility] [address] [place], [address] MCV (RBC) [Entitic vol] 89.2 fL Normal 80-94 [facility] Comment on above: Performed By: #### L 500.2500, L100.0100 #### [facility] [address] [place], [address] Monocytes/100 WBC (Bld) 10.5 % High 0-10 [facility] Comment on above: Performed By: #### L 500.2500, L100.0100 #### [facility] [address] [place], [address] Neutrophils/100 WBC (Bld) 75.0 % High 47-70 [facility] Comment on above: Performed By: #### L 500.2500, L100.0100 #### [facility] [address] [place], [address] Nucleated RBC (Bld) [#/Vol] 0 10*3/uL Normal 0-5 [facility] Comment on above: Performed By: #### L 500.2500, L100.0100 #### [facility] [address] [place], [address] Platelet mean volume (Bld) [Entitic vol] 10.6 fL Normal 6.2-12.0 [facility] Comment on above: Performed By: #### L 500.2500, L100.0100 #### [facility] [address] [place], [address] Platelets (Bld) [#/Vol] 260 10*3/uL Normal 150-450 [facility] Comment on above: Performed By: #### L 500.2500, L100.0100 #### [facility] [address] [place], [address] RBC (Bld) [#/Vol] 4.18 10*6/uL Low 4.6-6.2 [facility] Comment on above: Performed By: #### L 500.2500, L100.0100 #### [facility] [address] [place], [address] RDW SD 46.0 fl High 35.1-43.9 [facility] Comment on above: Performed By: #### L 500.2500, L100.0100 #### [facility] [address] [place], [address] WBC (Bld) [#/Vol] 7.0 10*3/uL Normal 4.4-11.0 [facility] Comment on above: Performed By: #### L 500.2500, L100.0100 #### [facility] [address] [place], [address] Carbon dioxide measurementOr dered By: Talia Quinteros on 04-27-2024 CO2 [Moles/Vol] 26.0 mmol/L 21.0-32.0 [facility] Chest PA and Lateralon 04-27 Chest PA and Lateral [facility] [address] [place], [place] [address] Chest PA and Lateral MR#: [id number] Acct: [id number] Name: JERMAINE BEGUM Rep #: [id number] : 1945 M 78 From: Elmo White MD PCP: Dr. Yecenia Agrawal MD [place] [facility] [place] Chest PA and Lateral Date of Exam: 04/27/24 Exam# [id number] Ordering Dr: Talia Quinteros PA [id number] EXAM: XR CHEST, 2 VIEWS CLINICAL INDICATION: [...] CC: Dr. Yecenia Agrawal MD; ARELY [place] [employer] Anchor: Signed Normal [facility] Chloride measurementOrdered By: Talia Quinteros on 04-27-2024 Chloride [Moles/Vol] 108 mmol/L High 98-107 [facility] Eosinophil percentageOrdered By: Talia Quinteros on 04-27-2024 Eosinophils/100 WBC (Bld) 2.8 % 0-5 [facility] Erythrocyte distribution wid th (RBC) [Ratio]Ordered By: Talia Quinteros on 04-27-2024 Erythrocyte distribution width (RBC) [Entitic vol] 46.0 fL High 35.1-43.9 [facility] Erythrocyte distribution wid th ratioOrdered By: Talia Quinteros on 04-27-2024 Erythrocyte distribution width (RBC) [Ratio] 14.3 % 11.6-14.6 [facility] Estimated glomerular filtrat ion rate (GFR) AmericanOrdered By: Talia Quinterso on 04-27-2024 Estimated GFR (MDRD) Amer 85 mL/min >60 [facility] Comment on above: GFR Calc Glomerular filtration rate ( GFR) estimationOrdered By: Talia Quinteros on 04-27-2024 Estimated GFR (MDRD) Non-Af Amer 70 mL/min >60 [facility] Comment on above: Non- GFR Calc Glucose measurementOrdered B y: Talia Quinteros on 04-27-2024 Glucose [Mass/Vol] 107 mg/dL High 74-106 [facility] Comment on above: Fasting Glucose resu lt from 100 to 125 mg/dL suggests IMPAIRED HOMEOSTASIS per A.D.A. criteria. Hematocrit Auto (Bld) [Volum e fraction]Ordered By: Talia Quinteros on 04-27-2024 Hematocrit (Bld) [Volume fraction] 37.3 % Low 40-54 [facility] Hemoglobin measurementOrdere d By: Talia Quinteros on 04-27-2024 Hemoglobin (Bld) [Mass/Vol] 12.2 g/dL Low 13.0-16.5 [facility] Immature granulocytes/100 WB C Auto (Bld)Ordered By: Talia Quinteros on 04-27-2024 Immature granulocytes/100 WBC (Bld) 0.400 % 0.0-0.9 [facility] Comment on above: IG% - Immature Granu locytes (promyelocytes, myelocytes and metamyelocytes) > 1% indicates that a LEFT SHIFT is Present. Lymphocytes Auto (Unsp spec) [#/Vol]Ordered By: Talia Quinteros on 04-27-2024 Lymphocytes (Bld) [#/Vol] 0.77 10*3/uL Low 0.83-4.51 [facility] Lymphocytes/100 WBC Auto (Un sp spec)Ordered By: Talia Quinteros on 04-27-2024 Lymphocytes/100 WBC (Bld) 11.0 % Low 19-41 [facility] MCV (mean corpuscular volume ) determinationOrdered By: Talia Quinteros on 04-27-2024 MCV (RBC) [Entitic vol] 89.2 fL 80-94 [facility] Mean corpuscular hemoglobin (MCH) determinationOrdered By: Talia Quinteros on 04-27-2024 MCH (RBC) [Entitic mass] 29.2 pg 27.0-32.0 [facility] Mean corpuscular hemoglobin concentration (MCHC) determinationOrdered By: Talia Quinteros on 04-27-2024 MCHC (RBC) [Mass/Vol] 32.7 g/dL 32-36 [facility] Mean platelet volume determi nationOrdered By: Talia Quinteros on 04-27-2024 Platelet mean volume (Bld) [Entitic vol] 10.6 fL 6.2-12.0 [facility] Monocyte percentageOrdered B y: Talia Quinteros on 04-27-2024 Monocytes/100 WBC (Bld) 10.5 % High 0-10 [facility] Neutrophil percentageOrdered By: Talia Quinteros on 04-27-2024 Neutrophils/100 WBC (Bld) 75.0 % High 47-70 [facility] Nucleated red blood cell per centageOrdered By: Talia Quinteros on 04-27-2024 Nucleated RBC/100 WBC (Bld) [Ratio] 0 % 0-5 [facility] Platelet countOrdered By: Ruth Quinteros on 04-27-2024 Platelets (Bld) [#/Vol] 260 10*3/uL 150-450 [facility] Potassium measurementOrdered By: Talia Quinteros on 04-27-2024 Potassium [Moles/Vol] 4.3 mmol/L 3.5-5.1 [facility] RBC Auto (Bld) [#/Vol]Ordere d By: Talia Quinteros on 04-27-2024 RBC (Bld) [#/Vol] 4.18 10*6/uL Low 4.6-6.2 [facility] Serum anion gap measurementO rdered By: Talia Quinteros on 04-27-2024 Anion gap [Moles/Vol] 5 mmol/L 5-15 [facility] Serum or plasma calcium kyleigh urement (mass/volume)Ordered By: Talia Quinteros on 04-27-2024 Calcium [Mass/Vol] 9.2 mg/dL 8.5-10.1 [facility] Serum or plasma creatinine m easurement (mass/volume)Ordered By: Talia Quinteros on 04-27-2024 Creatinine [Mass/Vol] 1.08 mg/dL 0.70-1.30 [facility] Comment on above: The validity of the calculated GFR & GFRAA in patients over 70 years has not been determined. Clinical correlation is essential. Serum or plasma urea nitroge n measurement (mass/volume)Ordered By: Talia Quinteros on 04-27-2024 Urea nitrogen [Mass/Vol] 20 mg/dL High 7-18 [facility] Sodium levelOrdered By: Grant Quinteros on 04-27-2024 Sodium [Moles/Vol] 140 mmol/L 136-145 [facility] White blood cell (WBC) count Ordered By: Talia Quinteros on 04-27-2024 WBC (Bld) [#/Vol] 7.0 10*3/uL 4.4-11.0 [facility] Echo Complete W/ Contraston 04-23-2024 Echo Complete W/ Contrast [facility] [address] [place] [address] Echo Complete W/ Contrast 04/23/24 0938 MR#: [id number] Acct: [id number] Name: JERMAINE BEGUM Rep #: [id number] : 1945 78 From: Junior Johnson MD Attending Dr: Dr. Junior Johnson MD Status: KEE GREGORY Ordering Dr: Junior Johnson MD Date: 04/23/24 Location: [facility] Sex: M C Admitted: Reason For [...] Date Dictated: 04/23/24937 Date Transcribed: 04/23/24 1326 [employer] Anchor: Signed Normal [facility] Stress Reporton 04-23-[address] [facility] [address] [place] [address] MR#: [id number] Acct: [id number] Name: JERMAINE BEGUM Rep #: [id number] : 1945 78 From: Junior Johnson MD [...] MD Date Dictated: 04/23/241633 Date Transcribed: 04/23/241633 [employer] Anchor: [place] Signed Normal [facility] Cardiology Visit Reporton Cardiology Visit Report [facility] [address] [place] [address] OFFICE VISIT Date of Service: 03/27/24 MR#: [id number] Acct: [id number] Name: JERMAINE BEGUM Rep #: [id number] : 1945 Provider: Dr. Junior Johnson MD Age/Sex: 78/M Location: [facility] Status: Signed HPI HPI History of Present [...] the same year. While he was in [place] in June 2021, he experienced some sharp [...] atrial fibrillation. He was seen by [facility] Electrophysiology, Dr. 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 Normal [facility] Ironon 02-16-2024 Iron [Mass/Vol] 94 ug/dL Normal 65-175 [facility] Comment on above: Order Comment: Order Date: 02/14/24 Order Info: [id number] - PSAD Order Info: [id number] - FE Performed By: #### L 503.6150, L503.0105, L501.9940 #### [facility] [address] [place], [address] PSA,Total- Diagnosticon 10-0 PSA, DIAGNOSTIC 0.11 ng/mL Normal 0.0-4.0 [facility] Comment on above: Order Comment: Order Date: 02/14/24 Order Info: [id number] - PSAD Order Info: [id number] - FE Result Comment: This test was performed using the TPSA assay method for the [employer] chemistry system. Values obtained with different assay methods cannot be used interchangably. When changing PSA assays in the course of monitoring a patient, additional sequential testing should be carried out to confirm baseline values. Performed By: #### L 503.6150, L503.0105, L501.9940 #### [facility] [address] [place], [address] Vitamin B12on 02-16-2024 Cobalamin (Vitamin B12) [Mass/Vol] 576 pg/mL Normal 211-911 [facility] Comment on above: Order Comment: Order Date: 02/14/24 Order Info: [id number] - B12 Performed By: #### L 503.6150, L503.0105, L501.9940 #### [facility] [address] [place], [address] Basophil percentageOrdered B y: Lele Hanley on 09-02-2023 Bilirubin [Mass/Vol] 0.90 mg/dL 0.20-1.00 [facility] Comment on above: For patients on eltr ombopag therapy, use of Dimension [place] TBIL is not recommended. Cholesterol [Mass/Vol] 233 mg/dL <200 [facility] Comment on above: <200 mg/dL Desirable 200-240 mg/dL Borderline >240 mg/dL High Risk Protein [Mass/Vol] 6.9 g/dL 6.4-8.2 [facility] Triglyceride [Mass/Vol] 119 mg/dL <199 [facility] Comment on above: The drugs N-Acetylcy steine and Metamizole may falsely depress this assay.Serum Triglycerides Reference Interval Normal <150 mg/dL Borderline high 150 - 199 mg/dL High 200 - 499 mg/dL Very High > or = 500 mg/dL Direct bilirubinOrdered By: Lele Hanley on 09-02-2023 Bilirubin.direct [Mass/Vol] 0.17 mg/dL 0.00-0.30 [facility] - Chemistry and C hemistry - challengeOrdered By: Lele Hanley on 09-02-2023 ALP [Catalytic activity/Vol] 93 U/L 45-117 [facility] ALT [Catalytic activity/Vol] 33 U/L 16-61 [facility] Cholesterol in HDL [Mass/Vol] 47 mg/dL >40 [facility] Comment on above: The drugs N-Acetylcy steine and Metamizole may falsely depress this assay. Reference Range HDL <40 mg/dL Low HDL Cholesterol HDL >or= 60 mg/dL High HDL Cholesterol Cholesterol in LDL [Mass/Vol] 162 mg/dL 0-130 [facility] Globulin (S) [Mass/Vol] 3.3 g/dL 2.2-4.2 [facility] No Panel InformationOrdered By: Lele Hanlye on 09-02-2023 VLDL Cholesterol 24 mg/dL 5-40 [facility] Thin prep Papanicolaou smear with manual screeningOrdered By: Lele Hanley on 09-02-2023 Thin prep Papanicolaou smear with manual screening 3.6 g/dL 3.2-5.0 [facility] Thin prep Papanicolaou smear with manual screening 22 U/L 15-37 [facility] Basophil percentageOrdered B y: Lele Hanley on 04-01-2023 Chloride [Moles/Vol] 108 mmol/L 98-107 [facility] Glucose [Mass/Vol] 174 mg/dL 74-106 [facility] Comment on above: Fasting Glucose resu lt greater than or equal to 126 mg/dL suggests DIABETES MELLITUS per A.D.A. criteria. Potassium [Moles/Vol] 3.9 mmol/L 3.5-5.1 [facility] Sodium [Moles/Vol] 139 mmol/L 136-145 [facility] - Chemistry and C hemistry - challengeOrdered By: Lele Hanley on 04-01-2023 CO2 [Moles/Vol] 25.0 mmol/L 21.0-32.0 [facility] Urea nitrogen/Creatinine [Mass ratio] 23.5 mg/mg 10-20 [facility] No Panel InformationOrdered By: Lele Hanley on 04-01-2023 Estimated GFR (MDRD) Amer 91 mL/min >60 [facility] Comment on above: GFR Calc Estimated GFR (MDRD) Non-Af Amer 75 mL/min >60 [facility] Comment on above: Non- GFR Calc Serum or plasma calcium kyleigh urement (mass/volume)Ordered By: Lele Hanley on 04-01-2023 Calcium [Mass/Vol] 8.7 mg/dL 8.5-10.1 [facility] Serum or plasma creatinine m easurement (mass/volume)Ordered By: Lele Hanley on 04-01-2023 Creatinine [Mass/Vol] 1.02 mg/dL 0.70-1.30 [facility] Comment on above: The validity of the calculated GFR & GFRAA in patients over 70 years has not been determined. Clinical correlation is essential. Serum or plasma urea nitroge n measurement (mass/volume)Ordered By: Lele Hanley on 04-01-2023 Urea nitrogen [Mass/Vol] 24 mg/dL 11-30 [facility] Thin prep Papanicolaou smear with manual screeningOrdered By: Lele Hanley on 04-01-2023 Thin prep Papanicolaou smear with manual screening 6 09-27 [facility] Basophil percentageOrdered B y: Lele Hanley on 01-28-2023 Bilirubin [Mass/Vol] 0.60 mg/dL 0.20-1.00 [facility] Comment on above: For patients on eltr ombopag therapy, use of Dimension [place] TBIL is not recommended. Cholesterol [Mass/Vol] 120 mg/dL <200 [facility] Comment on above: <200 mg/dL Desirable 200-240 mg/dL Borderline >240 mg/dL High Risk Protein [Mass/Vol] 7.2 g/dL 6.4-8.2 [facility] Triglyceride [Mass/Vol] 123 mg/dL <199 [facility] Comment on above: The drugs N-Acetylcy steine and Metamizole may falsely depress this assay.Serum Triglycerides Reference Interval Normal <150 mg/dL Borderline high 150 - 199 mg/dL High 200 - 499 mg/dL Very High > or = 500 mg/dL Direct bilirubinOrdered By: Lele Hanley on 01-28-2023 Bilirubin.direct [Mass/Vol] 0.16 mg/dL 0.00-0.30 [facility] - Chemistry and C hemistry - challengeOrdered By: Lele Hanley on 01-28-2023 ALP [Catalytic activity/Vol] 128 U/L 45-117 [facility] ALT [Catalytic activity/Vol] 33 U/L 16-61 [facility] Globulin (S) [Mass/Vol] 3.5 g/dL 2.2-4.2 [facility] Serum or plasma albumin kyleigh urement (mass/volume)Ordered By: Lele Hanley on 01-28-2023 Albumin [Mass/Vol] 3.7 g/dL 3.2-5.0 [facility] Serum or plasma cholesterol in HDL measurement (mass/volume)Ordered By: Lele Hanley on 01-28-2023 Cholesterol in HDL [Mass/Vol] 42 mg/dL >40 [facility] Comment on above: The drugs N-Acetylcy steine and Metamizole may falsely depress this assay. Reference Range HDL <40 mg/dL Low HDL Cholesterol HDL >or= 60 mg/dL High HDL Cholesterol Serum or plasma cholesterol in VLDL measurement (mass/volume)Ordered By: Lele Hanley on 01-28-2023 Cholesterol in VLDL [Mass/Vol] 25 mg/dL 5-40 [facility] Serum or plasma low density lipoprotein (LDL) cholesterol measurement (mass/volume)Ordered By: Lele Hanley on 01-28-2023 Cholesterol in LDL [Mass/Vol] 53 mg/dL 0-130 [facility] Thin prep Papanicolaou smear with manual screeningOrdered By: Lele Hanley on 01-28-2023 Thin prep Papanicolaou smear with manual screening 29 U/L 15-37 [facility] Comment on above: Slight Hemolysis, Re sult may be falsely increased. HbA1c (Bld)on 05-14-2022 Average glucose Estimated from glycated hemoglobin (Bld) [Mass/Vol] 140 mg/dL [facility] HbA1c (Bld) [Mass fraction] 6.5 % High 4.3 - 5.6 % [facility] UA DIP, URINE (POC)on 2021 BILIRUBIN UA (POCT) Negative Negative [facility] CLARITY UA (POCT) Clear [facility] COLOR UA (POCT) Yellow [facility] GLUCOSE UA (POCT) Negative Negative mg/dL [facility] HEMOGLOBIN/BLOOD UA (POCT) Negative Negative [facility] KETONE UA (POCT) Negative Negative mg/dL [facility] LEUKOCYTES UA (POCT) Negative Negative [facility] NITRITE UA (POCT) Negative Negative [facility] PH UA (POCT) 6.0 4.5 - 8.0 [facility] Protein Ql (U) 30 mg/dL Abnormal Negative mg/dL [facility] SPECIFIC GRAVITY UA (POCT) 1.020 1.005 - 1.030 [facility] UROBILINOGEN UA (POCT) 0.2 E.U./dL Normal E.U./dL [facility] CBC W Auto Differential pane l (Bld)on 11-17-2021 Abs Immature Gran <0.03 <0.10 k/uL [facility] Basophils (Bld) [#/Vol] 0.04 10*3/uL <0.11 k/uL [facility] Basophils/100 WBC (Bld) 0.5 % [facility] Differential cell count method Nom (Bld) Auto [facility] Eosinophils (Bld) [#/Vol] 0.36 10*3/uL <0.46 k/uL [facility] Eosinophils/100 WBC (Bld) 4.7 % [facility] Erythrocyte distribution width (RBC) [Ratio] 13.9 % 11.5 - 15.0 % [facility] Hematocrit (Bld) [Volume fraction] 34.5 % Low 39.0 - 51.0 % [facility] Hemoglobin (Bld) [Mass/Vol] 11.0 g/dL Low 13.0 - 17.0 g/dL [facility] Immature Gran % 0.3 % [facility] Lymphocytes (Bld) [#/Vol] 1.14 10*3/uL 1.00 - 4.00 k/uL [facility] Lymphocytes/100 WBC (Bld) 14.9 % [facility] MCH (RBC) [Entitic mass] 27.2 pg 26.0 - 34.0 pg [facility] MCHC (RBC) [Mass/Vol] 31.9 g/dL 30.5 - 36.0 g/dL [facility] MCV (RBC) [Entitic vol] 85.2 fL 80.0 - 100.0 fL [facility] Monocytes (Bld) [#/Vol] 0.77 10*3/uL <0.87 k/uL [facility] Monocytes/100 WBC (Bld) 10.1 % [facility] Neutrophils (Bld) [#/Vol] 5.32 10*3/uL 1.45 - 7.50 k/uL [facility] Neutrophils/100 WBC (Bld) 69.5 % [facility] Nucleated RBC (Bld) [#/Vol] 10*3/uL <0.01 k/uL [facility] Nucleated RBC/100 WBC (Bld) [Ratio] 0.0 /100 WBC [facility] Platelet mean volume (Bld) [Entitic vol] 9.4 fL 9.0 - 12.7 fL [facility] Platelets (Bld) [#/Vol] 432 10*3/uL High 150 - 400 k/uL [facility] RBC (Bld) [#/Vol] 4.05 10*6/uL Low 4.20 - 6.00 m/uL [facility] WBC (Bld) [#/Vol] 7.65 10*3/uL 3.70 - 11.00 k/uL [facility] URINALYSIS, REFLEX MICROSCOP ICon 11-17-2021 Bilirubin Ql (U) Negative Negative [facility] Clarity (Unsp spec) Clear Clear [facility] Color (U) Yellow Yellow [facility] Glucose Test strip (U) [Mass/Vol] Negative Negative [facility] Hemoglobin Ql (U) Negative Negative [facility] Ketones Ql (U) Negative Negative [facility] Leukocyte esterase Test strip Ql (U) Negative Negative [facility] Nitrite Ql (U) Negative Negative [facility] pH (U) 5.5 [pH] 5.0 - 8.0 [facility] Protein (U) [Mass/Vol] Negative Negative [facility] Specific gravity (U) [Rel density] 1.017 1.005 - 1.030 [facility] Urobilinogen Ql (U) Negative Negative [facility] XR CHEST 2V FRONTAL/LATon [facility] MRI THORACIC SPINE WO/W IVCO Non 09-23-2021 [facility] Absolute lymphocyte counton 08-24-2021 Lymphocytes Auto (Unsp spec) [#/Vol] 1.57 10*3/uL 0.83-4.51 [facility] Work Phone: Basophil percentageon 2021 Basophils/100 WBC (Bld) 0.3 % 0-1 [facility] Work Phone: Chloride [Moles/Vol] 108 mmol/L 98-107 [facility] Work [facility]: Eosinophils/100 WBC (Bld) 2.2 % 0-5 [facility] Work Phone: Glucose [Mass/Vol] 127 mg/dL 74-106 [facility] Work Phone: Comment on above: Fasting Glucose resu lt greater than or equal to 126 mg/dL suggests DIABETES MELLITUS per A.D.A. criteria. Neutrophils (Bld) [#/Vol] 5.0 10*3/uL 2.0-7.7 [facility] Work Phone: Neutrophils/100 WBC (Bld) 66.5 % 47-70 [facility] Work Phone: Potassium [Moles/Vol] 4.3 mmol/L 3.5-5.1 [facility] Work Phone: [phone] Sodium [Moles/Vol] 137 mmol/L 136-145 [facility] Work Phone: WBC (Bld) [#/Vol] 7.6 10*3/uL 4.4-11.0 [facility] Work Phone: Blood erythrocytes count (nu mber/volume)on 08-24-2021 RBC (Bld) [#/Vol] 4.82 10*6/uL 4.6-6.2 [facility] Work Phone: Blood hemoglobin measurement (mass/volume)on 08-24-2021 Hemoglobin (Bld) [Mass/Vol] 14.0 g/dL 13.0-16.5 [facility] Work Phone: Blood lymphocytes/100 leukoc yteson 08-24-2021 Lymphocytes/100 WBC (Bld) 20.8 % 19-41 [facility] Work Phone: Blood monocytes/100 leukocyt eson 08-24-2021 Monocytes/100 WBC (Bld) 9.9 % 0-10 [facility] Work Phone: Blood platelet mean volumeon 08-24-2021 Platelet mean volume (Bld) [Entitic vol] 10.7 fL 6.2-12.0 [facility] Work Phone: [phone] Determination of erythrocyte mean corpuscular volume (MCV)on 08-24-2021 MCV (RBC) [Entitic vol] 89.6 fL 80-94 [facility] Work Phone: Hematocrit Auto (Bld) [Volum e fraction]on 08-24-2021 Hematocrit (Bld) [Volume fraction] 43.2 % 40-54 [facility] Work Phone: Laboratory - Chemistry and C hemistry - challengeon 08-24-2021 CO2 [Moles/Vol] 28.0 mmol/L 21.0-32.0 [facility] Work Phone: [phone] Urea nitrogen/Creatinine [Mass ratio] 15.7 mg/mg 10-20 [facility] Work Phone: [phone] Laboratory - Hematology and Cell countson 08-24-2021 Erythrocyte distribution width (RBC) [Entitic vol] 44.2 fL 35.1-43.9 [facility] Work Phone: Erythrocyte distribution width (RBC) [Ratio] 13.4 % 11.6-14.6 [facility] Work Phone: [phone] Immature granulocytes/100 WBC (Bld) 0.300 % 0.0-0.9 [facility] Work Phone: [phone] Comment on above: IG% - Immature Granu locytes (promyelocytes, myelocytes and metamyelocytes) > 1% indicates that a LEFT SHIFT is Present. MCH (RBC) [Entitic mass] 29.0 pg 27.0-32.0 [facility] Work Phone: Nucleated RBC/100 WBC (Bld) [Ratio] 0 % 0-5 [facility] Work Phone: MCHC Auto (RBC) [Mass/Vol]on 08-24-2021 MCHC (RBC) [Mass/Vol] 32.4 g/dL 32-36 [facility] Work [facility]: No Panel Informationon 08-24 Estimated GFR (MDRD) Amer 91 mL/min >60 [facility] Work Phone: Comment on above: GFR Calc Estimated GFR (MDRD) Non-Af Amer 75 mL/min >60 [facility] Work Phone: Comment on above: Non- GFR Calc Platelets bldon 08-24-2021 Platelets (Bld) [#/Vol] 259 10*3/uL 150-450 [facility] Work Phone: Serum or plasma calcium kyleigh urement (mass/volume)on 08-24-2021 Calcium [Mass/Vol] 8.9 mg/dL 8.5-10.1 [facility] Work Phone: Serum or plasma creatinine m easurement (mass/volume)on 08-24-2021 Creatinine [Mass/Vol] 1.02 mg/dL 0.70-1.30 [facility] Work Phone: Comment on above: The validity of the calculated GFR & GFRAA in patients over 70 years has not been determined. Clinical correlation is essential. Serum or plasma urea nitroge n measurement (mass/volume)on 08-24-2021 Urea nitrogen [Mass/Vol] 16 mg/dL 7-18 [facility] Work Phone: Thin prep Papanicolaou smear with manual screeningon 08-24-2021 Thin prep Papanicolaou smear with manual screening 1 5-15 [facility] Work Phone: Basophil percentageon 2021 Bilirubin [Mass/Vol] 0.80 mg/dL 0.20-1.00 [facility] Work Phone: Comment on above: For patients on eltr ombopag therapy, use of Dimension [place] TBIL is not recommended. Cholesterol [Mass/Vol] 139 mg/dL <200 [facility] Work Phone: Comment on above: <200 mg/dL Desirable 200-240 mg/dL Borderline >240 mg/dL High Risk Protein [Mass/Vol] 7.5 g/dL 6.4-8.2 [facility] Work Phone: Triglyceride [Mass/Vol] 119 mg/dL [facility] Work Phone: Comment on above: The drugs N-Acetylcy steine and Metamizole may falsely depress this assay.Serum Triglycerides Reference Interval Normal <150 mg/dL Borderline high 150 - 199 mg/dL High 200 - 499 mg/dL Very High > or = 500 mg/dL Direct bilirubinon Bilirubin.direct [Mass/Vol] 0.19 mg/dL 0.00-0.30 [facility] Work Phone: Laboratory - Chemistry and C hemistry - challengeon 08-05-2021 ALP [Catalytic activity/Vol] 113 U/L 45-117 [facility] Work Phone: ALT [Catalytic activity/Vol] 33 U/L 16-61 [facility] Work Phone: Globulin (S) [Mass/Vol] 3.7 g/dL 2.2-4.2 [facility] Work Phone: Serum or plasma albumin kyleigh urement (mass/volume)on 08-05-2021 Albumin [Mass/Vol] 3.8 g/dL 3.2-5.0 [facility] Work Phone: Serum or plasma cholesterol in HDL measurement (mass/volume)on 08-05-2021 Cholesterol in HDL [Mass/Vol] 35 mg/dL [facility] Work Phone: Comment on above: The drugs N-Acetylcy steine and Metamizole may falsely depress this assay. Reference Range HDL <40 mg/dL Low HDL Cholesterol HDL >or= 60 mg/dL High HDL Cholesterol Serum or plasma cholesterol in VLDL measurement (mass/volume)on 08-05-2021 Cholesterol in VLDL [Mass/Vol] 24 mg/dL 5-40 [facility] Work Phone: Serum or plasma low density lipoprotein (LDL) cholesterol measurement (mass/volume)on 08-05-2021 Cholesterol in LDL [Mass/Vol] 80 mg/dL 0-130 [facility] Work Phone: Thin prep Papanicolaou smear with manual screeningon 08-05-2021 Thin prep Papanicolaou smear with manual screening 20 U/L 15-37 [facility] Work Phone: OBSOLETEon 08-10-2017 OBSOLETE Refill (AGCARDWST) ----JERMAINE BEGUM ([id number]) 1945 M [facility] Time Provider Department08/10/17 EREN CLARK AGCARDWST During [...] file. Status:Closed by AUSTIN MORGAN on 08/10/17 [facility] [place] 07-28-2017 [facility] Telephone (AGCARDWST) ----CHANCEJERMAINE ([id number]) 1945 [facility] Time Provider Department07/28/17 EREN CLARKWSChristina During your visit today, we recorded the following information about you:Luly Palacio Psr 07/28/2017 9:32 AM SignedPatient has called the office twice and was unable to speak to a nurse. He hasquestions in regards to a new medication that he was prescribed. He did notdisclose the medication as he wishes to speak to a nurse. Please contactpatient at: [phone].Austin Morgan, RN, RN 07/28/2017 9:39 AM SignedPatient [...] SignedI agree. Best to avoid nonsteroidals.Eren E. WeldonLuz acevedo, RN, RN 08/02/2017 3:45 PM SignedUnable to reach patient, unable to leave [facility]Austin Morgan, RN, RN 08/02/2017 4:29 PM SignedUnable to reach patient, unable to leave [facility]Austin Morgan, RN, RN 08/02/2017 4:54 PM SignedPatient verbalizes understanding.Allergies As of Date: 07/28/2017(No Known Allergies)Date Reviewed: 07/14/2017Reviewed by: Tyler Blackman - Fully AssessedReason for Visit: Medication Question [3768]Prescriptions as of 07/28/2017 Sig: ISOSORBIDE MONONITRATE ER [...] FOR* Status:Closed by AUSTIN MORGAN on 07/28/17 [facility] [place] 07-14-2017 [facility] Office Visit (AGCARDWST) ----JERMAINE BEGUM ([id number]) 1945 M NFRDate Time Provider Department07/14/17 4:00 [...] with treatment plan.This note was generated using [employer] voice recognition system, and there may besome [...] recently enrolled in an exercise program at [facility].He denies chest discomfort. 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 EAT A WHOLE FOOD, PLANT BASED [...] Status:Closed by EREN CLARK MD on 07/14/17 [facility] PROGRESSon 07-14-2017 PROGRESS HNO ID: [id number] thor: Eren Welch: (none)Author Type: PhysicianType: Progress [...] with treatment plan.This note was generated using [employer] voice recognition system, and theremay be some [...] was able to ride a bicycle at [place] on flat grade for miles at a time without any shortness of breath.He continues to have occasional episode of unexpected shortness of breathwhen carrying objects, especially upstairs.He has recently enrolled in an exercise program at [facility].He denies chest discomfort. He's had no [...] carotid exam showed stable disease.Electronically Signed:Eren Clark [facility] 2017 4:23 [facility]: Wes Rider MD [facility] OBSOLETEon 06-02-2017 OBSOLETE Refill (AGCARDWST) ----JERMAINE BEGUM ([id number]) 1945 M [facility] Time Provider Department06/02/17 EREN CLARK AGCARDWSChristina During [...] tab* 90 t* 3 03/11/2017 06/02/2017 Class: [employer] Route: ORAL Sig: Take 1 tablet by [...] file. Status:Closed by AUSTIN MORGAN on 06/02/17 [facility] OBSOLETEon 04-11-2017 OBSOLETE Refill (AGCARDWST) ----JERMAINE BEGUM ([id number]) 1945 M [facility] Time Provider Knfvkwimbt85/27/17 EREN CLARK During your visit today, we [...] Status:Closed by TYLER BLACKMAN MA on 04/11/17 [facility] OBSOLETEon 03-11-2017 OBSOLETE Refill (AGCARDWST) ----[facility]INE [facility] ([id number]) 1945 [facility] Vasqpsucsh09/27/17 EREN CLARK During your visit today, we recorded the following information about you:Tyler Blackman MA 03/11/2017 9:53 AM SignedScript needs sent to [facility].Pending Prescriptions Disp Refills SPIRONOLACTONE 25 MG TABLET [...] Status:Closed by TYLER BLACKMAN MA on 03/11/17 [facility] OBSOLETEon 03-10-2017 OBSOLETE Refill (AGCARDWST) ----JERMAINE BEGUM ([id number]) 1945 M NFRDate Time Provider Xzqlgcbjjo01/26/17 EREN CLARK During your visit today, we [...] 3 BASIC METABOLIC PNL [SQBMP] Order #: [id number] FUTUREPrescriptions as of 03/10/2017 Sig: SPIRONOLACTONE 25 [...] by TYLER BLACKMAN MA on 03/10/17 Normal [facility] Vital Signs Date Time Vital Sign Value Performing Clinician Albert mayfield 11-27-2024 11:01-0400 Body height 180.3 cm Phillip Barnett MD Work Phone: [facility] 11-27-2024 11:01-0400 Body mass index (BMI) [Ratio] 33.05 kg/m2 Phillip Barnett MD Work Phone: [facility] 11-27-2024 11:01-0400 Body temperature 96.91 [degF] Phillip Barnett MD Work Phone: [facility] 11-27-2024 11:01-0400 Body weight 107.5 kg Phillip Barnett MD Work Phone: [facility] 11-27-2024 11:01-0400 Diastolic blood pressure 71 mm[Hg] Phillip Barnett MD Work Phone: [facility] 11-27-2024 11:01-0400 Heart rate 62 /min Phillip Barnett MD Work Phone: [facility] 11-27-2024 11:01-0400 SaO2% (BldA) [Mass fraction] 98 % Phillip Barnett MD Work Phone: [facility] 11-27-2024 11:01-0400 Systolic blood pressure 138 mm[Hg] Phillip Barnett MD Work Phone: [facility] 11-04-2024 01:55-0400 Body temperature 98.1 [degF] Yecenia Agrawal MD Work Phone: [facility] 11-04-2024 01:55-0400 Diastolic blood pressure 80 mm[Hg] Yecenai Agrawal MD Work Phone: [facility] 11-04-2024 01:55-0400 Heart rate 78 /min Yecenia Agrawal MD Work Phone: [facility] 11-04-2024 01:55-0400 Respiratory rate 16 /min Yecenia Agrawal MD Work Phone: [facility] 11-04-2024 01:55-0400 SaO2% (BldA) [Mass fraction] 99 % Yecenia Agrawal MD Work Phone: [facility] 11-04-2024 01:55-0400 Systolic blood pressure 168 mm[Hg] Yecenia Agrawal MD Work Phone: [facility] 11-03-2024 22:14-0400 Body height 185.42 cm Yecenia Agrawal MD Work Phone: [facility] 11-03-2024 22:14-0400 Body mass index (BMI) [Ratio] 31.4 kg/m2 Yecenia Agrawal MD Work Phone: [facility] 11-03-2024 22:14-0400 Body weight 108.18 kg Yecenia Agrawal MD Work Phone: 4(909)817-044374 [place] [address] 05-03-2024 11:13-0500 Body height 185.42 cm Yecenia Agrawal MD Work Phone: 0(556)503-515497 [address] 05-03-2024 11:13-0500 Body weight 107.5 kg Yecenia Agrawal MD Work Phone: [facility] 05-02-2024 08:39-0500 Body mass index (BMI) [Ratio] 31.2 kg/m2 Yecenia Agrawal MD Work Phone: [facility] 08-12-2023 11:11-0400 Body height 185.[address] Wes Rider Work Phone: [facility] 08-12-2023 11:11-0400 Body mass index (BMI) [Ratio] 30.6 kg/m2 Dr. Wes Rider Work Phone: [facility] 08-12-2023 11:11-0400 Body weight 105.[address] Wes Rider Work Phone: [facility] 04-04-2023 15:23-0500 Body mass index (BMI) [Ratio] 31 kg/m2 Dr. Wes Rider Work Phone: 3(670)483-547352 [place] [address] 04-04-2023 15:23-0500 Body weight 106.[address] Wes Rider Work Phone: 6(067)559-280613 [place] [address] 04-04-2023 15:20-0500 Body height 185.[address] Wes Rider Work Phone: 4(127)800-714813 [place] [address] 04-04-2023 15:20-0500 Body temperature 98 [degF] Dr. Wes Rider Work Phone: 2(096)513-840913 [place] [address] 04-04-2023 15:20-0500 Diastolic blood pressure 70 mm[Hg] Dr. Wes Rider Work Phone: 2(094)625-603513 [place] [address] 04-04-2023 15:20-0500 Heart rate 60 /min Dr. Wes Rider Work Phone: 0(646)091-508913 [place] [address] 04-04-2023 15:20-0500 Respiratory rate 16 /min Dr. Wes Rider Work Phone: 5(300)113-798313 [place] [address] 04-04-2023 15:20-0500 SaO2% (BldA) [Mass fraction] 99 % Dr. Wes Rider Work Phone: 6(225)481-324213 [place] [address] 04-04-2023 15:20-0500 Systolic blood pressure 125 mm[Hg] Dr. Wes Rider Work Phone: 7(947)054-709513 [place] [address] 01-31-2023 09:54-0400 Body height 185.[address] Wes Rider Work Phone: 8(886)146-411913 [place] [address] 01-31-2023 09:52-0400 Body mass index (BMI) [Ratio] 29.9 kg/m2 Dr. Wes Rider Work Phone: 4(929)526-395213 [place] [address] 01-31-2023 09:52-0400 Body weight 102.[address] Wes Rider Work Phone: 9(601)257-290613 [place] [address] 01-31-2023 09:52-0400 Diastolic blood pressure 74 mm[Hg] Dr. Wes Rider Work Phone: 6(463)771-130513 [place] [address] 01-31-2023 09:52-0400 Heart rate 68 /min Dr. Wes Rider Work Phone: [facility] 01-31-2023 09:52-0400 Respiratory rate 18 /min Dr. Wes Rider Work Phone: [facility] 01-31-2023 09:52-0400 SaO2% (BldA) [Mass fraction] 97 % Dr. Wes Rider Work Phone: [facility] 01-31-2023 09:52-0400 Systolic blood pressure 149 mm[Hg] Dr. Wes Rider Work Phone: [facility] 09-21-2022 09:58-0400 Body temperature 96.6 [degF] Artur Mi MD, MD Work Phone: [facility] 09-21-2022 09:58-0400 Diastolic blood pressure 75 mm[Hg] Artur Mi MD, MD Work Phone: [facility] 09-21-2022 09:58-0400 Heart rate 63 /min Artur Mi MD, MD Work Phone: [facility] 09-21-2022 09:58-0400 SaO2% (BldA) [Mass fraction] 99 % Artur Mi MD, MD Work Phone: [facility] 09-21-2022 09:58-0400 Systolic blood pressure 145 mm[Hg] Artur Mi MD, MD Work Phone: [facility] 09-14-2022 09:41-0400 Body temperature 97.39 [degF] Artur Mi MD, MD Work Phone: [facility] 09-14-2022 09:41-0400 Diastolic blood pressure 65 mm[Hg] Artur Mi MD, MD Work Phone: [facility] 09-14-2022 09:41-0400 Heart rate 76 /min Artur Mi MD, MD Work Phone: [facility] 09-14-2022 09:41-0400 Respiratory rate 15 /min Artur Mi MD, MD Work Phone: [facility] 09-14-2022 09:41-0400 SaO2% (BldA) [Mass fraction] 99 % Artur Mi MD, MD Work Phone: [facility] 09-14-2022 09:41-0400 Systolic blood pressure 138 mm[Hg] Artur Mi MD, MD Work Phone: [facility] 09-07-2022 09:51-0400 Body temperature 97 [degF] Artur Mi MD, MD Work Phone: [facility] 09-07-2022 09:51-0400 Body weight 97.52 kg Artur Mi MD, MD Work Phone: [facility] 09-07-2022 09:51-0400 Diastolic blood pressure 77 mm[Hg] Artur Mi MD, MD Work Phone: [facility] 09-07-2022 09:51-0400 Heart rate 66 /min Artur Mi MD, MD Work Phone: [facility] 09-07-2022 09:51-0400 SaO2% (BldA) [Mass fraction] 100 % Artur Mi MD, MD Work Phone: [facility] 09-07-2022 09:51-0400 Systolic blood pressure 137 mm[Hg] Artur Mi MD, MD Work Phone: [facility] 08-24-2022 10:07-0400 Body temperature 97 [degF] Artur Mi MD, MD Work Phone: [facility] 08-24-2022 10:07-0400 Diastolic blood pressure 74 mm[Hg] Artur Mi MD, MD Work Phone: [facility] 08-24-2022 10:07-0400 Heart rate 77 /min Artur Mi MD, MD Work Phone: [facility] 08-24-2022 10:07-0400 Respiratory rate 16 /min Artur Mi MD, MD Work Phone: [facility] 08-24-2022 10:07-0400 SaO2% (BldA) [Mass fraction] 99 % Artur Mi MD, MD Work Phone: [facility] 08-24-2022 10:07-0400 Systolic blood pressure 138 mm[Hg] Artur Mi MD, MD Work Phone: [facility] 06-07-2022 09:45-0500 Diastolic blood pressure 70 mm[Hg] Artur Mi MD, MD Work Phone: [facility] 06-07-2022 09:45-0500 Heart rate 88 /min Artur Mi MD, MD Work Phone: [facility] 06-07-2022 09:45-0500 Systolic blood pressure 126 mm[Hg] Artur Mi MD, MD Work Phone: [facility] 06-07-2022 09:37-0500 Body temperature 97 [degF] Artur Mi MD, MD Work Phone: [facility] 06-07-2022 09:37-0500 Body weight 106.14 kg Artur Mi MD, MD Work Phone: [facility] 06-07-2022 09:37-0500 Respiratory rate 16 /min Artur Mi MD, MD Work Phone: [facility] 06-07-2022 09:37-0500 SaO2% (BldA) [Mass fraction] 99 % Artur Mi MD, MD Work Phone: [facility] 05-20-2022 16:27-0500 Body weight 104.24 kg Wes Rider MD Work Phone: [facility] 05-20-2022 16:27-0500 Diastolic blood pressure 72 mm[Hg] Wes Rider MD Work Phone: [facility] 05-20-2022 16:27-0500 Heart rate 78 /min Wes Rider MD Work Phone: [facility] 05-20-2022 16:27-0500 Respiratory rate 16 /min Wes Rider MD Work Phone: [facility] 05-20-2022 16:27-0500 Systolic blood pressure 130 mm[Hg] Wes Rider MD Work Phone: [facility] 03-09-2022 13:12-0400 Body height 185.4 cm Rubén Alves PA-C Work Phone: [facility] 03-09-2022 13:12-0400 Body temperature 98.01 [degF] Rubén Alves PA-C Work Phone: [facility] 03-09-2022 13:12-0400 Body weight 99.34 kg Rubén Alves PA-C Work Phone: [facility] 03-09-2022 13:12-0400 Diastolic blood pressure 74 mm[Hg] Rubén Alves PA-C Work Phone: [facility] 03-09-2022 13:12-0400 Heart rate 86 /min Rubén Alves PA-C Work Phone: [facility] 03-09-2022 13:12-0400 Respiratory rate 16 /min Rubén Alves PA-C Work Phone: [facility] 03-09-2022 13:12-0400 SaO2% (BldA) [Mass fraction] 98 % Rubén Alves PA-C Work Phone: [facility] 03-09-2022 13:12-0400 Systolic blood pressure 114 mm[Hg] Rubén Alves PA-C Work Phone: [facility] 02-13-2022 01:37-0400 Body weight 98.[address] Wes Rider Work Phone: [facility] Work Phone: 02-11-2022 10:03-0400 Body height 185.[address] Wes Rider Work Phone: [facility] Work Phone: 02-11-2022 10:03-0400 Body mass index (BMI) [Ratio] 28.5 kg/m2 Dr. Wes Rdier Work Phone: [facility] Work Phone: 02-11-2022 10:03-0400 Body weight 97.[address] Wes Rider Work Phone: [facility] Work Phone: 02-11-2022 10:03-0400 Diastolic blood pressure 54 mm[Hg] Dr. Wes Rider Work Phone: [facility] Work Phone: 02-11-2022 10:03-0400 Heart rate 81 /min Dr. Wes Rider Work Phone: [facility] Work Phone: 02-11-2022 10:03-0400 Respiratory rate 16 /min Dr. Wes Rider Work Phone: [facility] Work Phone: 02-11-2022 10:03-0400 Systolic blood pressure 109 mm[Hg] Dr. Wes Rider Work Phone: [facility] Work Phone: 01-22-2022 11:22-0400 Body weight 98.[address] Wes Rider Work Phone: [facility] Work Phone: 12-30-2021 14:06-0400 Body temperature 97 [degF] Marie Beavers MD Work Phone: [facility] 12-30-2021 14:06-0400 Body weight 98.39 kg Marie Beavers MD Work Phone: [facility] 12-30-2021 14:06-0400 Diastolic blood pressure 69 mm[Hg] Marie Beavers MD Work Phone: [facility] 12-30-2021 14:06-0400 Heart rate 91 /min Marie Beavers MD Work Phone: [facility] 12-30-2021 14:06-0400 Respiratory rate 20 /min Marie Beavers MD Work Phone: [facility] 12-30-2021 14:06-0400 Systolic blood pressure 133 mm[Hg] Marie Beavers MD Work Phone: [facility] 12-23-2021 14:56-0400 Body height 185.[address] Wes Rider Work Phone: [facility] Work Phone: 12-23-2021 14:56-0400 Body weight 98.[address] Wes Rider Work Phone: [facility] Work Phone: 12-23-2021 14:22-0400 Body mass index (BMI) [Ratio] 27.4 kg/m2 Dr. Wes Rider Work Phone: [facility] Work Phone: 12-23-2021 14:22-0400 Body temperature 97.5 [degF] Dr. Wes Rider Work Phone: [facility] Work Phone: 12-23-2021 14:22-0400 Diastolic blood pressure 63 mm[Hg] Dr. Wes Rider Work Phone: [facility] Work Phone: 12-23-2021 14:22-0400 Heart rate 86 /min Dr. Wes Rider Work Phone: [facility] Work Phone: 12-23-2021 14:22-0400 Respiratory rate 14 /min Dr. Wes Rider Work Phone: [facility] Work Phone: 12-23-2021 14:22-0400 SaO2% (BldA) [Mass fraction] 97 % Dr. Wes Rider Work Phone: [facility] Work Phone: 12-23-2021 14:22-0400 Systolic blood pressure 100 mm[Hg] Dr. Wes Rider Work Phone: [facility] Work Phone: 11-17-2021 12:55-0400 Body height 185.4 cm Pacc 3 Work Phone: [facility] 11-17-2021 12:55-0400 Body temperature 96.8 [degF] Pacc 3 Work Phone: [facility] 11-17-2021 12:55-0400 Body weight 97.48 kg Pacc 3 Work Phone: [facility] 11-17-2021 12:55-0400 Diastolic blood pressure 76 mm[Hg] Pacc 3 Work Phone: [facility] 11-17-2021 12:55-0400 Heart rate 88 /min Pacc 3 Work Phone: [facility] 11-17-2021 12:55-0400 SaO2% (BldA) [Mass fraction] 100 % Pacc 3 Work Phone: [facility] 11-17-2021 12:55-0400 Systolic blood pressure 135 mm[Hg] Pacc 3 Work Phone: [facility] 11-17-2021 10:58-0400 Body height 185 cm Isha Nicoleoda CORK SLABS SAWYER.REALTIME COURT REPORTER Work Phone: [facility] 11-17-2021 10:58-0400 Body weight 92.99 kg Isha Loboda C[employer] SL[employer]S [address]ER.REALTIME [address] REPORTER Work Phone: [facility] 11-17-2021 10:58-0400 Diastolic blood pressure 81 mm[Hg] Isha Loboda C[employer] SL[employer]S [address]ER.[address]ALTIME [address] REPORTER Work Phone: [facility] 11-17-2021 10:58-0400 Heart rate 102 /min Isha Loboda C[employer] SL[employer]S [address]ER.[address]ALTIME [address] REPORTER Work Phone: [facility] 11-17-2021 10:58-0400 Systolic blood pressure 149 mm[Hg] Isha Bruce C[employer] SL[employer]S [address]ER.[address]ALTIME [address] REPORTER Work Phone: [facility] 10-29-2021 13:11-0400 Body mass index (BMI) [Ratio] 28.6 kg/m2 Dr. Wes Rider Work Phone: [facility] Work Phone: 10-29-2021 13:11-0400 Body weight 98.[address] Wes Rider Work Phone: [facility] Work Phone: 10-29-2021 13:11-0400 Diastolic blood pressure 63 mm[Hg] Dr. Wes Rider Work Phone: [facility] Work Phone: 10-29-2021 13:11-0400 Heart rate 86 /min Dr. Wes Rider Work Phone: [facility] Work Phone: 10-29-2021 13:11-0400 Respiratory rate 16 /min Dr. Wes Rider Work Phone: [facility] Work Phone: 10-29-2021 13:11-0400 Systolic blood pressure 100 mm[Hg] Dr. Wes Rider Work Phone: [facility] Work Phone: 10-13-2021 14:34-0400 Body height 185 cm Andegoni Evelyn [employer] SL[employer]S [address]ER.[address]ALTIME [address] REPORTER Work Phone: [facility] 10-13-2021 14:34-0400 Body temperature 98.4 [degF] Andegoni Kathyalamamis [employer] SL[employer]S [address]ER.[address]ALTIME [address] REPORTER Work Phone: [facility] 10-13-2021 14:34-0400 Body weight 100.2 kg Andegoni Marins [employer] [address]ER.[address]ALTIME [address] REPORTER Work Phone: [facility] 10-13-2021 14:34-0400 Diastolic blood pressure 74 mm[Hg] Andegoni Sandalakis C[employer] SL[employer]S [address]ER.[address]ALTIME [address] REPORTER Work Phone: [facility] 10-13-2021 14:34-0400 Heart rate 85 /min Andegoni Sandalakis [employer] [address]ER.[address]ALTIME [address] REPORTER Work Phone: [facility] 10-13-2021 14:34-0400 Respiratory rate 12 /min Andegoni Sandalakis [employer] [address]ER.[address]ALTIME [address] REPORTER Work Phone: [facility] 10-13-2021 14:34-0400 SaO2% (BldA) [Mass fraction] 100 % Andegoni Sandalakis [employer] SL[employer] [address]ER.[address]AL[address] REPORTER Work Phone: [facility] 10-13-2021 14:34-0400 Systolic blood pressure 136 mm[Hg] Andegoni Sandalakis C[employer] SL[employer]S [address]ER.[address]ALTIME [address] REPORTER Work Phone: [facility] 10-09-2021 16:56-0400 Body weight 98.88 kg Diamond Damon MD Work Phone: [facility] 09-29-2021 11:04-0400 Body height 185 cm [facility] Work Phone: [facility] 09-29-2021 11:04-0400 Body temperature 97.7 [degF] [facility] Work Phone: [facility] 09-29-2021 11:04-0400 Body weight 106.7 kg [facility] Work Phone: [facility] 09-29-2021 11:04-0400 Diastolic blood pressure 69 mm[Hg] [facility] Work Phone: [facility] 09-29-2021 11:04-0400 Heart rate 49 /min [facility] Work Phone: [facility] 09-29-2021 11:04-0400 SaO2% (BldA) [Mass fraction] 98 % [facility] Work Phone: [facility] 09-29-2021 11:04-0400 Systolic blood pressure 129 mm[Hg] [facility] Work Phone: [facility] 08-31-2021 16:59-0400 Diastolic blood pressure 74 mm[Hg] Bandar Soria DO Work Phone: [facility] 08-31-2021 16:59-0400 SaO2% (BldA) [Mass fraction] 99 % Bandar Soria DO Work Phone: [facility] 08-31-2021 16:59-0400 Systolic blood pressure 151 mm[Hg] Bandar Soria DO Work Phone: [facility] 08-26-2021 15:56-0400 Diastolic blood pressure 72 mm[Hg] Marie Bautista MD Work Phone: [facility] 08-26-2021 15:56-0400 Systolic blood pressure 128 mm[Hg] Marie Bautista MD Work Phone: [facility] 08-26-2021 15:52-0400 Body height 185.4 cm Marie Bautista MD Work Phone: [facility] 08-26-2021 15:52-0400 Body weight 99.34 kg Marie Bautista MD Work Phone: [facility] 08-26-2021 15:52-0400 Heart rate 65 /min Marie Bautista MD Work Phone: [facility] 08-26-2021 15:52-0400 Respiratory rate 18 /min Marie Bautista MD Work Phone: [facility] 08-26-2021 15:52-0400 SaO2% (BldA) [Mass fraction] 98 % Marie Bautista MD Work Phone: [facility] 08-06-2021 16:14-0400 Body height 185.[address] Wes Rider Work Phone: [facility] Work Phone: 08-06-2021 16:14-0400 Body mass index (BMI) [Ratio] 30.7 kg/m2 Dr. Wes Rider Work Phone: [facility] Work Phone: 08-06-2021 16:14-0400 Body weight 105.[address] Wes Rider Work Phone: [facility] Work Phone: 08-06-2021 16:14-0400 Diastolic blood pressure 66 mm[Hg] Dr. Wes Rider Work Phone: [facility] Work Phone: 08-06-2021 16:14-0400 Heart rate 60 /min Dr. Wes Rider Work Phone: [facility] Work Phone: 08-06-2021 16:14-0400 Respiratory rate 16 /min Dr. Wes Rider Work Phone: [facility] Work Phone: 08-06-2021 16:14-0400 SaO2% (BldA) [Mass fraction] 97 % Dr. Wes Rider Work Phone: [facility] Work Phone: 08-06-2021 16:14-0400 Systolic blood pressure 111 mm[Hg] Dr. Wes Rider Work Phone: [facility] Work Phone: Encounters Encounter Date Encounter Type Care Provider Facility Start: 11-27-2024 End: 11-27-2024 Patient encounter procedure Phillip Barnett MD Work Phone: Hematology/Oncology Start: 11-27-2024 End: 11-27-2024 ambulatory Phillip Barnett MD Work Phone: Hematology/Oncology Comment on above: Prostate cancer (HCC ) (Primary Dx) Start: 11-20-2024 End: 11-20-2024 Telephone encounter Phillip Barnett MD Work Phone: Hematology/Oncology Comment on above: Orders Start: 11-20-2024 End: 11-20-2024 ambulatory PHILLIP BARNETT Facility:[facility] Start: 11-03-2024 End: 11-04-2024 Emergency department patient visit Yecenia Agrawal MD Work Phone: -Emergency Department Work Phone: Start: 11-02-2024 End: 11-04-2024 Telephone encounter Phillip Barnett MD Work Phone: Hematology/Oncology Comment on above: New Patient Start: 10-23-2024 End: 10-24-[address] GRISELDA LYNCH MD Facility:[facility] Start: 10-23-2024 End: 10-24-[address] GRISELDA LYNCH MD [facility] Start: 09-24-2024 ambulatory YECENIA AGRAWAL MD Facility :[facility] Start: 08-29-2024 End: 08-29-[address] GRISELDA LYNCH MD Facility:[facility] Start: 08-29-2024 End: 08-29-[address] GRISELDA LYNCH MD Facility:[facility] Start: 08-28-2024 End: 08-28-2024 ambulatory Yecenia Agrawal MD Work Phone: [facility] Work Phone: Start: 08-28-2024 End: 08-28-[address] Yecenia Agrawal MD -Laboratory, [facility] Start: 08-28-2024 End: 08-28-2024 ambulatory Yecenia Agrawal Facility:[facility] Start: 08-21-2024 End: 08-21-2024 ambulatory MARIE BEAVERS Facility:[facility] Start: 06-26-2024 End: 07-03-2024 ambulatory Marie Beavers MD Work Phone: Hematology/Oncology Comment on above: [facility] Start: 06-18-2024 End: 06-18-2024 ambulatory MARIE BEAVERS Facility:[facility] Start: 06-18-2024 End: 06-18-2024 Subsequent hospital visit [...] Start: 05-23-2024 End: 05-23-2024 ambulatory MARIE BEAVERS Facility:[facility] Start: 05-03-2024 End: 05-03-2024 Admission to same day surgery center Dr. 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 Work Phone: Start: 05-03-2024 End: 05-03-2024 ambulatory Chalon Tanja Facility:[facility] Start: 04-27-2024 ambulatory Talia MCGEE Facility:[facility] Start: 04-23-2024 ambulatory Junior Johnson Facility:[facility] Start: 04-23-2024 End: 04-23-2024 ambulatory Chalon [facility] Facility[facility] Start: 03-27-2024 End: 03-27-2024 ambulatory Wes Rider Facility:[facility] Start: 02-16-2024 End: 02-16-2024 ambulatory [facility] Facility:[facility] Start: 11-03-2023 ambulatory Wes burch MD Work Phone: [facility] Comment on above: Cancel Appt. Start: 10-20-2023 Telephone encounter Wes vega MD Work Phone: [facility] Comment on above: Results Start: 09-02-2023 End: 09-02-[address] Wes Rider Work Phone: [facility] Work Phone: Start: 09-02-2023 End: 09-02-[address] Wes Rider Work Phone: [facility]Laboratory Work Phone: Start: 08-26-2023 End: 08-26-[address] Wes Rider Work Phone: [facility] Work Phone: Start: 08-24-2023 End: 08-24-[address] Wes Rider Work Phone: [facility] Work Phone: Start: 08-24-2023 End: 08-24-[address] Wes Rider Work Phone: [facility] Work Phone: Start: 08-17-2023 End: 08-17-2023 ambulatory Marie Beavers MD Work Phone: Hematology/Oncology Comment on above: Prostate cancer (HCC ) (Primary Dx) Start: 08-17-2023 End: 08-17-2023 Telemedicine consultation with patient Marie Beavers MD Work Phone: [facility] Start: 08-12-2023 End: 08-12-[address] Wes Rider Work Phone: [facility] Work Phone: Start: 04-04-2023 End: 04-04-2023 Emergency department patient visit Dr. Wes Rider Work Phone: [facility]Emergency Department Work Phone: Start: 04-04-2023 ambulatory Wes burch MD Work Phone: [facility] [place] Comment on above: Back Pain Start: 04-01-2023 End: 04-01-[address] Wes Rider Work Phone: [facility] Work Phone: Start: 04-01-2023 End: 04-01-[address] [facility] Start: 02-10-2023 End: 02-10-2023 ambulatory Marie Beavers MD Work Phone: Hematology/Oncology Comment on above: Prostate CA (HCC) (P rimary Dx) Start: 02-10-2023 End: 02-10-2023 Telemedicine consultation with patient Marie Beavers MD Work Phone: [facility] Start: 01-31-2023 End: 01-31-[address] Wes Rider Work Phone: [facility] Work Phone: Start: 01-28-2023 End: 01-28-[address] Wes Rider Work Phone: [facility] Work Phone: Start: 01-28-2023 End: 01-28-[address] [facility] Start: 11-11-2022 End: 11-11-2022 Follow-up encounter Artur Mi MD Work Phone: Radiation Oncology Comment on above: Radiotherapy follow- up (Primary Dx); Prostate cancer (HCC) Start: 11-11-2022 End: 11-11-2022 Telemedicine consultation with patient Artur Mi MD, MD Work Phone: [facility] Start: 10-15-2022 ambulatory Wes burch MD Work Phone: [facility] Start: 10-15-2022 Patient encounter procedure Wes Rider MD Work Phone: [facility] [place] Comment on above: Blood Test and Offic e Visit Start: 10-13-2022 ambulatory Artur Mi MD Work Phone: Radiation Oncology Comment on above: Patient Education (C ompleted radiation) Start: 10-13-2022 Patient encounter procedure Artur Mi MD, MD Work Phone: [facility] Start: 10-13-2022 Radiation Oncology Note Mary Anne [...] Wes burch MD Work Phone: Internal Medicine [facility] Start: 08-24-2022 End: 08-24-2022 Nursing evaluation of patient and report Nurse Urol [facility] Work Phone: Urology Comment on above: Malignant neoplasm o f prostate (HCC) (Primary Dx) Start: 08-24-2022 End: 08-24-2022 Patient encounter procedure Artur Mi MD Work Phone: Radiation Oncology Comment on above: Prostate cancer (HCC ) (Primary Dx) Start: 08-17-2022 End: 08-17-2022 ambulatory Jacquelyn Heller PT Work Phone: [facility] Comment on above: RICARDO (stress urinary incontinence), male (Primary Dx); Prostate cancer (HCC) Start: 08-16-2022 ambulatory Artur Mi MD Work Phone: Radiation Oncology Comment on above: August 23 Radiation f or Braulio Begum ? Start: 08-13-2022 Patient encounter procedure Corby Elliott MD Work Phone: [facility] Start: 08-13-2022 Radiation Oncology Note Corby Elliott MD Work Phone: Radiation Oncology Comment on above: Simulation Note Treatment Planning Start: 08-10-2022 Telephone encounter Rubén floyd PA-C Work Phone: Urology Comment on above: Patient Question Start: 08-09-2022 Patient encounter procedure Corby Elliott MD Work Phone: [facility] Start: 08-09-2022 Radiation Oncology Note Corby Elliott MD Work Phone: Radiation Oncology Comment on above: Simulation Note Start: 08-03-2022 End: 08-03-2022 ambulatory Jacquelyn Heller PT Work Phone: [facility] Comment on above: RICARDO [...] with patient Marie Beavers MD Work Phone: [facility] Start: 06-07-2022 End: 06-07-2022 Patient encounter procedure Artur Mi MD Work Phone: Radiation Oncology Comment on above: Prostate cancer (HCC ) (Primary Dx) Start: 06-04-2022 End: 06-04-2022 ambulatory Jacquelyn Heller PT Work Phone: [facility] Comment on above: Prostate cancer (HCC ) (Primary Dx); RICARDO (stress urinary incontinence), male; Muscle weakness Start: 06-03-2022 ambulatory Wes burch MD Work Phone: [facility] Comment on above: Do We Need Blood Janice t? Start: 06-01-2022 End: 06-01-2022 ambulatory Quentin Hampton MD Work Phone: Radiation Oncology Comment on above: Prostate cancer (HCC ) (Primary Dx) Start: 06-01-2022 End: 06-01-2022 Telemedicine consultation with patient Quentin Hampton MD Work Phone: [facility] Start: 05-31-2022 Telephone encounter Nicolette castro RN Work Phone: Radiation Oncology Comment on above: Geoint Analyst - O ther Start: 05-20-2022 End: 05-20-2022 Patient encounter procedure Wes Rider MD Work Phone: [facility] Comment on above: Controlled type 2 di abetes mellitus without complication, without long-term current use of insulin (HCC) (Primary Dx); Essential hypertension, benign; Mixed hyperlipidemia; Hernia; Prostate cancer (HCC); Paroxysmal atrial fibrillation (HCC) Start: 05-12-2022 Get Medical Advice Wes mccollum MD Work Phone: [facility] Comment on above: Place Blood Work Ord [...] with patient Marie Beavers MD Work Phone: [facility] Start: 02-22-2022 End: 03-15-[address] Wes Rider Work Phone: [facility] Work Phone: Start: 02-22-2022 End: 03-15-[address] Wes Rider Work Phone: [facility] Start: 02-12-2022 End: 02-12-[address] Wes Rider Work Phone: [facility] Start: 02-11-2022 End: 02-11-[address] Wes Rider Work Phone: [facility] Start: 02-04-2022 ambulatory Rubén Alves PA-C Work Phone: Urology Comment on above: Lack of Bladder Cont rol Start: 01-26-2022 ambulatory Tracy Salcido [facility] [place] Comment on above: Population Health Na vigation Outreach (Diabetes Management) Start: 01-13-2022 End: 01-13-[address] Wes Rider Work Phone: [facility] Work Phone: Start: 01-13-2022 End: 01-13-[address] [facility] Start: 01-01-2022 End: 01-01-2022 ambulatory Charley Gonzalez RN NURSE [employer] DIRECT[employer] Comment on above: Information Prostate cancer (HCC ) (Primary Dx); RICARDO (stress urinary incontinence), male; Erectile dysfunction following radical prostatectomy Start: 01-01-2022 End: 01-01-2022 Telemedicine consultation with patient Diamond Damon MD Work Phone: [facility] Start: 12-30-2021 End: 12-30-2021 ambulatory Marie Beavers MD Work Phone: Hematology/Oncology Comment on above: Prostate CA (HCC) (P rimary Dx) Start: 12-30-2021 End: 12-30-2021 Patient encounter procedure Marie Beavers MD Work Phone: [facility] Start: 12-28-[address] Wes Rider Work Phone: [facility] Start: 12-23-2021 Telephone encounter Wes vega MD Work Phone: [facility] Comment on above: Lab Orders Start: 12-23-2021 End: 12-23-[address] Wes Rider Work Phone: [facility] Start: 12-12-2021 Non-patient / Non-visit Dr. Janice Rider Work Phone: [facility] Start: 12-09-2021 Telephone encounter Ginger Mccain Urological & Comment on above: Returning Patient's Call Start: 12-02-2021 Telephone encounter Wes vega MD Work Phone: [facility] Comment on above: Gout flare up Start: 11-25-2021 Orders Only Debbie bolaños [employer] SLABS SAWYER.REALTIME COURT REPORTER Work Phone: Urology Comment on above: Prostate cancer (HCC ) (Primary Dx) Start: 11-24-2021 End: 11-24-2021 ambulatory Diamond Damon MD Work Phone: Urology Comment on above: Prostate cancer (HCC ) (Primary Dx) Start: 11-24-2021 End: 11-24-2021 Telemedicine consultation with patient Diamond Damon MD Work Phone: [facility] Start: 11-17-2021 End: 11-17-2021 ambulatory Pacc Main 3 Work Phone: Pre Anesthesia Comment on above: Pre-op evaluation (P rimary Dx); Malignant neoplasm of prostate (HCC) Start: 11-17-2021 End: 11-17-2021 Admission to establishment Pacc Main 3 Work Phone: [facility] Start: 11-17-2021 End: 11-17-2021 Preprocedural examination done Pacc Main 3 Work Phone: Pre Anesthesia Start: 11-17-2021 End: 11-17-2021 Patient encounter procedure Isha Keane [employer]W[address]ER.REALTIME [address] REPORTER Work Phone: Urology Comment on above: Malignant neoplasm o f prostate (HCC) (Primary Dx) Start: 11-11-2021 Orders Only Shree Marley Work Phone: Cardiology Comment on above: Sinus bradycardia (P rimary Dx) Received Outside Med ical Records Start: 11-04-2021 Patient Outreach Clarke garza RN Work Phone: [employer] Comment on above: Transition Of Care ( [facility] f/u [facility] Discharge 10/06/21) Start: 10-30-2021 Telephone encounter Mauricio Riley MD Work Phone: Cardiology Comment on above: Post Dc Program Call - Needs Attn Start: 10-29-2021 End: 10-29-[address] Wes Rider Work Phone: [facility] Start: 10-25-2021 Patient Outreach Clarke garza RN Work Phone: [employer] Comment on above: Transition Of Care ( [facility] f/u [facility] Discharge 10/06/21) Start: 10-21-2021 Telephone encounter Moe Bautista MD Work Phone: Cardiology Comment on above: Received Outside Med ical Records ([facility]); Appointment (EP) Start: 10-14-2021 Telephone encounter Rubén floyd PA-C Work Phone: Urology Comment on above: Orders Start: 10-14-2021 End: 10-14-[address] Wes Rider Work Phone: [facility]/Neurology Start: 10-13-2021 End: 10-13-2021 Patient encounter procedure Miri Rivas APRN.REALTIME COURT REPORTER Work Phone: Cardiothoracic Comment on above: S/P CABG (coronary a rtery bypass graft) (Primary Dx); S/P Maze operation for atrial fibrillation Start: 10-13-2021 End: 10-13-2021 Subsequent hospital visit by physician Xr Chest Main J1 Work Phone: Radiology Comment on above: Surgery follow-up [Z 09] Start: 10-10-2021 Non-patient / Non-visit Dr. Janice Rider Work Phone: [facility] Start: 10-09-2021 End: 10-09-2021 ambulatory Diamond Damon MD Work Phone: Urology Comment on above: Malignant neoplasm o f prostate (HCC) (Primary Dx) Start: 10-09-2021 End: 10-09-2021 Telemedicine consultation with patient Diamond Damon MD Work Phone: [facility] Start: 10-07-2021 Patient Outreach Clarke garza RN Work Phone: [employer] Comment on above: Transition Of Care ( TCM Initial [facility] Discharge 10/06/21) Follow Up Phone Call [...] (HCC) (Primary Dx); 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 (HCC); Atrial fibrillation, unspecified type (HCC); Prostate cancer (HCC); Hyperlipidemia, unspecified hyperlipidemia type; Primary hypertension; Pre-operative cardiovascular examination Start: 09-29-2021 End: 09-29-2021 Patient encounter status Mauircio Riley MD Work Phone: 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 Janice chapa [facility] Work Phone: [facility] Start: 09-03-2021 Patient encounter status Wai Riley MD Work Phone: Cardiothoracic Start: 09-03-2021 Telephone encounter Mauricio Riley MD Work Phone: Cardiothoracic Comment on above: Schedule Surgery (Pr e-op Checklist) Start: 09-02-2021 End: 09-02-2021 Patient encounter procedure Debbie Morrow APRN.REALTIME COURT REPORTER Work Phone: Urology Comment on above: APPOINTMENT CANCELLE D (Primary Dx) Start: 09-02-2021 Telephone encounter Mauricio Riley MD Work Phone: Cardiothoracic Comment on above: Insurance Authorizat ion Start: 09-01-2021 Orders Only Debbie bolaños [employer] SL[employer] [address] REPORTER Work Phone: Urology Comment on above: Prostate cancer (HCC ) (Primary Dx) Returning Patient's Call Start: 08-31-2021 End: 08-31-2021 Patient encounter procedure Bandar Soria DO Work Phone: Cardiology Comment on above: Abnormal stress test (Primary Dx); Coronary artery disease involving [place] coronary artery of [place] heart without angina pectoris; Elevated prostate specific [...] Start: 08-26-2021 End: 08-26-2021 Patient encounter procedure Marei Bautista MD Work Phone: Cardiology Comment on above: Abnormal stress test (Primary Dx); Coronary artery disease involving [place] coronary artery of [place] heart without angina pectoris; Presence of drug coated stent in left circumflex coronary artery; Hyperlipidemia LDL goal <70; Hypertension goal BP (blood pressure) < 140/80 Start: 08-26-2021 End: 08-26-[address] Wes Rider Work Phone: [facility] Start: 08-25-2021 Orders Only Marie hdz MD Work Phone: Cardiology Comment on above: Essential hypertensi on, benign (Primary Dx); Coronary artery disease involving [place] heart without angina pectoris, unspecified vessel or lesion type; Mixed hyperlipidemia; Controlled type 2 diabetes mellitus without complication, without long-term current use of insulin (HCC) Future Appointment Start: 08-24-2021 Telephone encounter Tmia Murray MD Work Phone: Urology Comment on above: Patient Question Start: 08-20-2021 Non-patient / Non-visit Dr. Janice Rider Work Phone: [facility] Start: 08-20-2021 End: 08-20-[address] Wes Rider Work Phone: [facility] Start: 08-17-2021 End: 08-17-2021 ambulatory Quentin Hampton MD Work Phone: Radiation Oncology Comment on above: Prostate cancer (HCC ); Abnormal findings on diagnostic imaging of other parts of musculoskeletal system Start: 08-17-2021 End: 08-17-2021 Telemedicine consultation with patient Quentin Hampton MD Work Phone: [facility] Start: 08-06-[address] Inés Rider Work Phone: [facility] Start: 08-06-2021 End: 08-06-2021 Admission to same day surgery center Dr. Wes Rider Work Phone: [facility] Start: 08-06-2021 End: 08-06-[address] Wes Rider Work Phone: [facility] Start: 08-05-2021 End: 08-05-[address] Wes Rider Work Phone: [facility] Start: 03-16-2018 Ambulatory EREN SWOOPE Facility :[facility] Start: 07-14-2017 Ambulatory EREN Fabien [facility] Procedures Date Procedure Procedure Detail Performing Clinician [...] Dr. Junior Johnson MD Comment on above: [id number] LCX w/4.0 X 18 mm Vision stent 02/14/2007; WKR-CTX-YMG-Proximal LCX w/ 4.0 X 28 mm Xience Alpine MAGDA 10/18/2014 Coronary artery bypa ss grafts x 3 DR GRISELDA LYNCH MD History of coronary artery bypass grafting S/P CABG (coronary artery bypass graft) Miri Rivas APRN.REALTIME [employer] REPORTER Work Phone: History of operative procedure on [...] EDT Visit (SP) Office Hematology/Oncology [address] [place] [address] Phillip Barnett MD [address], [place] [phone] 3MO OV/LABS 02/26* Hematology/Oncology Comment on above: 3MO OV/LABS 02/26* Start: 02-26-2025 End: 02-26-2025 ambulatory 02/26/2025 1:15 PM EDT Results [facility] [address] [place] [address] PSA [facility] Comment on above: PSA Start: 01-14-2025 Influenza vaccination [facility] Start: 11-27-2024 End: 11-27-2024 ambulatory 11/27/2024 11:00 AM EDT Visit (SP) Office Hematology/Oncology [address] [place] [address] Phillip Barnett MD [address], [place] [phone] PAGE MAKEUP SYSTEM OPERATOR/TRANSFER CARE/SELF REFERRING*This date and time per patient Hematology/Oncology Comment on above: PAGE MAKEUP SYSTEM OPERATOR/TRANSFER CARE/MANPREET F REFERRING*This date and time per patient Start: 11-04-2024 [facility] Start: 09-01-2024 Hepatitis B surface antibody level LDL Cholesterol [facility] Start: 08-21-2024 End: 08-21-2024 ambulatory 08/21/2024 12:30 PM EDT Results Only [facility] Draw Station [address] [place] [id number] [facility] Draw Station Start: 08-16-2024 End: 11-15-2024 Prostate specific Ag [Mass/volume] in Serum or Plasma PROSTATE-SPECIFIC ANTIGEN DIAGNOSTIC Lab Routine Prostate CA (HCC) Expected: 08/16/2024 (Approximate), Expires: 11/15/2024 [facility] Comment on above: Expected: 08/16/2024 (Approximate), Expires: 11/15/2024 Start: 08-16-2024 End: 11-15-2024 Testosterone [Mass/volume] in Serum or Plasma TESTOSTERONE, TOTAL BY IMMUNOASSAY (ADULT MALES, OR INDIVIDUALS ON TESTOSTERONE THERAPY) Lab Routine Prostate CA (HCC) Expected: 08/16/2024 (Approximate), Expires: 11/15/2024 [facility] Work Phone: Comment on above: Expected: 08/16/2024 (Approximate), Expires: 11/15/2024 Start: 05-24-2024 Annual PCP Team Clin Nurse serina Disease Visit Annual PCP Team Chronic Disease Visit [facility] Start: 05-24-2024 BP Controlled (<130/80) BP Controlle d (<130/80) [facility] Start: 05-24-2024 Covid-19 Vaccine () Covid-19 Vaccine () [facility] Comment on above: Postponed from 01/14 (Declined at this time) Start: 05-24-2024 RSV Vaccine (1 - 1-d ose 60+ series) RSV Vaccine (1 - 1-dose 60+ series) [facility] Comment on above: Postponed from 06/25 (Declined at this time) Start: 05-19-2024 Hepatitis B surface antibody level LDL Cholesterol [facility] Start: 05-16-2024 Advance Directive Discussion Advance Directive Discussion [facility] Start: 05-16-2024 Medicare Advantage A nnual Wellness Visit Medicare Advantage Annual Wellness Visit [facility] Start: 05-04-2024 Patient discharge [facility] Start: 04-29-2024 Hemoglobin A1c measurement HbA1C [facility] Start: 01-15-2024 Covid-19 Vaccine ( season) Covid-19 Vaccine ( season) [facility] Start: 01-15-2024 Influenza vaccination [facility] Start: 11-24-2023 End: 11-24-2023 Patient encounter procedure 11/24/2023 11:20 AM EDT Office Visit [facility] [address] [place] [phone] Wes Rider MD [address] [place] [id number] 6 mo f/u [facility] Comment on above: 6 mo f/u Start: 11-17-2023 Hemoglobin A1c measurement HbA1C [facility] Start: 08-09-2023 End: 10-09-2023 Prostate specific Ag [Mass/volume] in Serum or Plasma PSA/PROSTSPECAG DIAG Lab Routine Prostate CA (HCC) Expected: 08/09/2023 (Approximate), Expires: 10/09/2023 [facility] Work Phone: Comment on above: Expected: 08/09/2023 (Approximate), Expires: 10/09/2023 Start: 08-09-2023 End: 10-09-2023 Testosterone [Mass/volume] in Serum or Plasma TESTOSTERONE TOTAL Lab Routine Prostate CA (HCC) Expected: 08/09/2023 (Approximate), Expires: 10/09/2023 [facility] Work Phone: Comment on above: Expected: 08/09/2023 (Approximate), Expires: 10/09/2023 Start: 07-27-2023 Urine microalbumin profile [facility] Start: 06-07-2023 BP CONTROLLED (<130/80) BP CONTROLLE D (<130/80) [facility] Start: 05-20-2023 ANNUAL PCP TEAM PUBLIC SPACE ATTENDANT SERINA DISEASE VISIT ANNUAL PCP TEAM CHRONIC DISEASE VISIT [facility] Start: 05-16-2023 Advance Directive Discussion Advance Directive Discussion [facility] Start: 05-16-2023 Behavioral Health Screening Behavioral Health Screening [facility] Start: 05-14-2023 Hepatitis B surface antibody level LDL CHOLESTEROL [facility] Start: 04-04-2023 [facility] Start: 03-09-2023 BP CONTROLLED (<130/80) BP CONTROLLE D (<130/80) [facility] Start: 01-14-2023 Covid-19 Vaccine () Covid-19 Vaccine () [facility] Start: 01-14-2023 Influenza vaccination C [facility] Start: 11-12-2022 Hemoglobin A1c/Hemoglobin.total in Blood HBA1C [facility] Start: 09-29-2022 BP CONTROLLED (<130/80) BP CONTROLLE D (<130/80) [facility] Start: 09-28-2022 Hepatitis B surface antibody level LDL CHOLESTEROL [facility] Start: 09-08-2022 BP CONTROLLED (<130/80) BP CONTROLLE D (<130/80) [facility] Start: 08-31-2022 Hepatitis B surface antibody level LDL CHOLESTEROL [facility] Start: 08-26-2022 BP CONTROLLED (<130/80) BP CONTROLLE D (<130/80) [facility] Start: 08-26-2022 Hemoglobin A1c/Hemoglobin.total in Blood HBA1C [facility] Start: 08-24-2022 End: 10-24-2022 ALBUMIN/CREAT RATIO RND UR ALBUMIN/CREAT RATIO RND UR Lab Routine Controlled type 2 diabetes mellitus without complication, without long-term current use of insulin (HCC) Expected: 08/24/2022, Expires: 10/24/2022 [facility] Work Phone: Comment on above: Expected: 08/24/2022 , Expires: 10/24/2022 Start: 08-17-2022 End: 10-17-2022 Prostate specific Ag [Mass/volume] in Serum or Plasma PSA/PROSTSPECAG DIAG Lab Routine Prostate cancer (HCC) Expected: 08/17/2022 (Approximate), Expires: 10/17/2022 [facility] Work Phone: Comment on above: Expected: 08/17/2022 (Approximate), Expires: 10/17/2022 Start: 08-17-2022 End: 10-17-2022 Testosterone [Mass/volume] in Serum or Plasma TESTOSTERONE TOTAL Lab Routine Prostate cancer (HCC) Expected: 08/17/2022 (Approximate), Expires: 10/17/2022 [facility] Work Phone: Comment on above: Expected: 08/17/2022 (Approximate), Expires: 10/17/2022 Start: 07-13-2022 Covid-19 Vaccine (5 - Pfizer series) Covid-19 Vaccine (5 - Pfizer series) [facility] Start: 06-27-2022 Hemoglobin A1c/Hemoglobin.total in Blood HBA1C [facility] Start: 06-08-2022 End: 08-08-2022 Prostate specific Ag [Mass/volume] in Serum or Plasma PSA/PROSTSPECAG DIAG Lab Routine Prostate cancer (HCC) Expected: 06/08/2022, Expires: 08/08/2022 [facility] Work Phone: Comment on above: Expected: 06/08/2022 , Expires: 08/08/2022 Start: 05-16-2022 ADVANCE DIRECTIVE DISCUSSION ADVANCE DIRECTIVE DISCUSSION [facility] Start: 05-16-2022 DEPRESSION ASSESSMENT DEPRESSION ASS ESSMENT [facility] Start: 03-31-2022 ANNUAL PCP TEAM PUBLIC SPACE ATTENDANT SERINA DISEASE VISIT ANNUAL PCP TEAM CHRONIC DISEASE VISIT [facility] Start: 03-31-2022 BP CONTROLLED (<130/80) BP CONTROLLE D (<130/80) [facility] Start: 03-31-2022 Hemoglobin A1c/Hemoglobin.total in Blood HBA1C [facility] Start: 03-30-2022 Hepatitis B surface antibody level LDL CHOLESTEROL [facility] Start: 02-24-2022 End: 04-26-2022 Comprehensive metabolic 2000 panel - Serum or Plasma COMP METABOLIC PANEL Lab Routine Prostate CA (HCC) Expected: 02/24/2022 (Approximate), Expires: 04/26/2022 [facility] Work Phone: Comment on above: Expected: 02/24/2022 (Approximate), Expires: 04/26/2022 Start: 02-24-2022 End: 04-26-2022 Prostate specific Ag [Mass/volume] in Serum or Plasma PSA/PROSTSPECAG DIAG Lab Routine Prostate CA (HCC) Expected: 02/24/2022 (Approximate), Expires: 04/26/2022 [facility] Work Phone: Comment on above: Expected: 02/24/2022 (Approximate), Expires: 04/26/2022 Start: 02-24-2022 End: 04-26-2022 Testosterone [Mass/volume] in Serum or Plasma TESTOSTERONE TOTAL Lab Routine Prostate CA (HCC) Expected: 02/24/2022 (Approximate), Expires: 04/26/2022 [facility] Work Phone: Comment on above: Expected: 02/24/2022 (Approximate), Expires: 04/26/2022 Start: 01-14-2022 Influenza vaccination C [facility] Start: 12-29-2021 End: 02-28-2022 Hemoglobin A1c in Blood HGB A1C Lab Routine Controlled type 2 diabetes mellitus without complication, without long-term current use of insulin (HCC) Expected: 12/29/2021, Expires: 02/28/2022 [facility] Work Phone: Comment on above: Expected: 12/29/2021 , Expires: 02/28/2022 Start: 12-29-2021 End: 02-28-2022 Prostate specific Ag [Mass/volume] in Serum or Plasma PSA/PROSTSPECAG DIAG Lab Routine Prostate cancer (HCC) Expected: 12/29/2021 (Approximate), Expires: 02/28/2022 [facility] Work Phone: Comment on above: Expected: 12/29/2021 (Approximate), Expires: 02/28/2022 Start: 12-12-2021 Patient referral [facility] Work Phone: Start: 11-18-2021 End: 01-18-2022 aPTT in Platelet poor plasma by Coagulation assay ACTIVATED PTT Lab Routine Malignant neoplasm of prostate (HCC) Expected: 11/18/2021 (Approximate), Expires: 01/18/2022 [facility] Work Phone: Comment on above: Expected: 11/18/2021 (Approximate), Expires: 01/18/2022 Start: 11-18-2021 End: 01-18-2022 CBC panel - Blood by Automated count CBC Lab Routine Malignant neoplasm of prostate (HCC) Expected: 11/18/2021 (Approximate), Expires: 01/18/2022 [facility] Work Phone: Comment on above: Expected: 11/18/2021 (Approximate), Expires: 01/18/2022 Start: 11-18-2021 End: 01-18-2022 Comprehensive metabolic 2000 panel - Serum or Plasma COMP METABOLIC PANEL Lab Routine Malignant neoplasm of prostate (HCC) Expected: 11/18/2021 (Approximate), Expires: 01/18/2022 [facility] Work Phone: Comment on above: Expected: 11/18/2021 (Approximate), Expires: 01/18/2022 Start: 11-18-2021 End: 01-18-2022 CONFIRM BLOOD TYPE CONFIRM BLOOD TYPE Blood Bank Routine Malignant neoplasm of prostate (HCC) Expected: 11/18/2021 (Approximate), Expires: 01/18/2022 [facility] Work Phone: Comment on above: Expected: 11/18/2021 (Approximate), Expires: 01/18/2022 Start: 11-18-2021 End: 01-18-2022 PT panel - Platelet poor plasma by Coagulation assay PROTHROMBIN TIME/PT Lab Routine Malignant neoplasm of prostate (HCC) Expected: 11/18/2021 (Approximate), Expires: 01/18/2022 [facility] Work Phone: Comment on above: Expected: 11/18/2021 (Approximate), Expires: 01/18/2022 Start: 11-18-2021 End: 09-28-2022 SARS-CoV-2 (COVID-19) RNA [Presence] in Respiratory specimen by ANNY with probe detection PRE-PROCEDURE & PRE-OPERATIVE COVID Microbiology Routine Malignant neoplasm of prostate (HCC) Expected: 11/18/2021 (Approximate), Expires: 09/28/2022 [facility] Work Phone: Comment on above: Expected: 11/18/2021 (Approximate), Expires: 09/28/2022 Start: 11-18-2021 End: 01-18-2022 TYPE AND SCREEN,30 DAY TYPE AND SCREEN,30 DAY Blood Bank Routine Malignant neoplasm of prostate (HCC) Expected: 11/18/2021 (Approximate), Expires: 01/18/2022 [facility] Work Phone: Comment on above: Expected: 11/18/2021 (Approximate), Expires: 01/18/2022 Start: 09-27-2021 Hemoglobin A1c/Hemoglobin.total in Blood HBA1C [facility] Start: 09-18-2021 Hepatitis B screening URINE ALBUMIN:CREATININE RATIO [facility] Start: 09-16-2021 Adult depression scr eening assessment DEPRESSION SCREENING [facility] Start: 09-14-2021 End: 11-14-2021 aPTT in Platelet poor plasma by Coagulation assay ACTIVATED PTT Lab Routine 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 (HCC) Atrial fibrillation, unspecified type (HCC) Prostate cancer (HCC) Hyperlipidemia, unspecified hyperlipidemia type Primary hypertension Pre-operative cardiovascular examination Expected: 09/14/2021 (Approximate), Expires: 11/14/2021 [facility] Work Phone: Comment on above: Expected: 09/14/2021 (Approximate), Expires: 11/14/2021 Start: 09-14-2021 End: 11-14-2021 CONFIRM BLOOD TYPE CONFIRM BLOOD TYPE Blood Bank Routine 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 (HCC) Atrial fibrillation, unspecified type (HCC) Prostate cancer (HCC) Hyperlipidemia, unspecified hyperlipidemia type Primary hypertension Pre-operative cardiovascular examination Expected: 09/14/2021, Expires: 11/14/2021 [facility] Work Phone: Comment on above: Expected: 09/14/2021 , Expires: 11/14/2021 Start: 09-14-2021 End: 11-14-2021 Lactate dehydrogenase [Enzymatic activity/volume] in Serum or Plasma LD LACTATE DEHYDRO Lab Routine 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 (HCC) Atrial fibrillation, unspecified type (HCC) Prostate cancer (HCC) Hyperlipidemia, unspecified hyperlipidemia type Primary hypertension Pre-operative cardiovascular examination Expected: 09/14/2021, Expires: 11/14/2021 [facility] Work Phone: Comment on above: Expected: 09/14/2021 , Expires: 11/14/2021 Start: 09-14-2021 End: 11-14-2021 PT panel - Platelet poor plasma by Coagulation assay PROTHROMBIN TIME/PT Lab Routine 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 (HCC) Atrial fibrillation, unspecified type (HCC) Prostate cancer (HCC) Hyperlipidemia, unspecified hyperlipidemia type Primary hypertension Pre-operative cardiovascular examination Expected: 09/14/2021 (Approximate), Expires: 11/14/2021 [facility] Work Phone: Comment on above: Expected: 09/14/2021 (Approximate), Expires: 11/14/2021 Start: 09-14-2021 End: 09-14-2022 SARS-CoV-2 (COVID-19) RNA [Presence] in Respiratory specimen by ANNY with probe detection PRE-PROCEDURE & PRE-OPERATIVE COVID Microbiology Routine 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 (HCC) Atrial fibrillation, unspecified type (HCC) Prostate cancer (HCC) Hyperlipidemia, unspecified hyperlipidemia type Primary hypertension Pre-operative cardiovascular examination Expected: 09/14/2021, Expires: 09/14/2022 [facility] Work Phone: Comment on above: Expected: 09/14/2021 , Expires: 09/14/2022 Start: 09-14-2021 End: 11-14-2021 TYPE AND SCREEN,30 DAY TYPE AND SCREEN,30 DAY Blood Bank Routine 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 (HCC) Atrial fibrillation, unspecified type (HCC) Prostate cancer (HCC) Hyperlipidemia, unspecified hyperlipidemia type Primary hypertension Pre-operative cardiovascular examination Expected: 09/14/2021, Expires: 11/14/2021 [facility] Work Phone: Comment on above: Expected: 09/14/2021 , Expires: 11/14/2021 Start: 09-14-2021 End: 11-14-2021 URINALYSIS, DIPSTICK ONLY URINALYSIS, DIPSTICK ONLY Lab Routine 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 (HCC) Atrial fibrillation, unspecified type (HCC) Prostate cancer (HCC) Hyperlipidemia, unspecified hyperlipidemia type Primary hypertension Pre-operative cardiovascular examination Expected: 09/14/2021, Expires: 11/14/2021 [facility] Work Phone: Comment on above: Expected: 09/14/2021 , Expires: 11/14/2021 Start: 08-25-2021 End: 10-25-2021 CBC panel - Blood by Automated count CBC Lab Routine Essential hypertension, benign Coronary artery disease involving [place] heart without angina pectoris, unspecified vessel or lesion type Mixed hyperlipidemia Controlled type 2 diabetes mellitus without complication, without long-term current use of insulin (HCC) Expected: 08/25/2021, Expires: 10/25/2021 [facility] Work Phone: Comment on above: Expected: 08/25/2021 , Expires: 10/25/2021 Start: 08-25-2021 End: 10-25-2021 Comprehensive metabolic 2000 panel - Serum or Plasma COMP METABOLIC PANEL Lab Routine Essential hypertension, benign Coronary artery disease involving [place] heart without angina pectoris, unspecified vessel or lesion type Mixed hyperlipidemia Controlled type 2 diabetes mellitus without complication, without long-term current use of insulin (HCC) Expected: 08/25/2021, Expires: 10/25/2021 [facility] Work Phone: Comment on above: Expected: 08/25/2021 , Expires: 10/25/2021 Start: 08-25-2021 End: 10-25-2021 LIPID PANEL BASIC LIPID PANEL BASIC Lab Routine Essential hypertension, benign Coronary artery disease involving [place] heart without angina pectoris, unspecified vessel or lesion type Mixed hyperlipidemia Controlled type 2 diabetes mellitus without complication, without long-term current use of insulin (HCC) Expected: 08/25/2021, Expires: 10/25/2021 [facility] Work Phone: Comment on above: Expected: 08/25/2021 , Expires: 10/25/2021 Start: 08-25-2021 End: 08-25-2022 SARS-CoV-2 (COVID-19) RNA [Presence] in Respiratory specimen by ANNY with probe detection PRE-PROCEDURE & PRE-OPERATIVE COVID Microbiology Routine Essential hypertension, benign Coronary artery disease involving [place] heart without angina pectoris, unspecified vessel or lesion type Mixed hyperlipidemia Controlled type 2 diabetes mellitus without complication, without long-term current use of insulin (HCC) Expected: 08/25/2021, Expires: 08/25/2022 [facility] Work Phone: Comment on above: Expected: 08/25/2021 , Expires: 08/25/2022 Start: 08-04-2021 COVID-19 VACCINE (4 - Booster for Pfizer series) COVID-19 VACCINE (4 - Booster for Pfizer series) [facility] Start: 06-01-2021 COVID-19 VACCINE (4 - Booster for Pfizer series) COVID-19 VACCINE (4 - Booster for Pfizer series) [facility] Start: 05-16-2021 ADVANCE DIRECTIVE DISCUSSION ADVANCE DIRECTIVE DISCUSSION [facility] Start: 05-16-2021 DEPRESSION ASSESSMENT DEPRESSION ASS ESSMENT [facility] Start: 05-01-2021 Glaucoma screening Dilated Retinal E xam [facility] Start: 05-01-2021 Hepatitis C antibody , confirmatory test DILATED RETINAL EXAM [facility] Start: 2019 RSV Vaccine (1 - 1-d ose 75+ series) RSV Vaccine (1 - 1-dose 75+ series) [facility] Start: 05-15-2019 PNEUMOCOCCAL: 65+ (3 - PPSV23 or PCV20) PNEUMOCOCCAL: 65+ (3 - PPSV23 or PCV20) [facility] Start: 2004 Hepatitis B Vaccine (1 of 3 - Risk 3-dose series) Hepatitis B Vaccine (1 of 3 - Risk 3-dose series) [facility] Start: 2004 RSV Vaccine (1 - 1-d ose 60+ series) RSV Vaccine (1 - 1-dose 60+ series) [facility] Start: 1994 SHINGRIX VACCINE (1 of 2) MERCADO GRIX VACCINE (1 of 2) [facility] Start: 1963 SHINGRIX VACCINE (1 of 2) MERCADO GRIX VACCINE (1 of 2) [facility] Start: 1962 Anxiety Screening Anxiety Screening [facility] Start: 1962 BP CONTROLLED (<130/80) BP CONTROLLE D (<130/80) [facility] Start: 1962 Depression Screening Depression Scre ening [facility] Start: 1954 3 comp foot exam completed DIABETIC FOOT EXAM [facility] Start: 1954 Diabetic foot examination Diabetic F oot Exam [facility] CT SIM PLANNING RADI ATION ONCOLOGY CT SIM PLANNING RADIATION ONCOLOGY Radiology Routine Prostate cancer (HCC) Ordered: 08/03/2022 [facility] Work Phone: Comment on above: Ordered: 08/03/2022 End: 08-25-2022 ECG COMPLETE ECG COMPLETE ECG Routine Essential hypertension, benign Coronary artery disease involving [place] heart without angina pectoris, unspecified vessel or lesion type Mixed hyperlipidemia Controlled type 2 diabetes mellitus without complication, without long-term current use of insulin (HCC) 1 Occurrences starting 08/25/2021 until 08/25/2022 [facility] Work Phone: Comment on above: 1 Occurrences starti ng 08/25/2021 until 08/25/2022 End: 08-28-2022 ECG COMPLETE ECG COMPLETE ECG Routine Essential hypertension, benign 1 Occurrences starting 08/28/2021 until 08/28/2022 [facility] Work Phone: Comment on above: 1 Occurrences starti ng 08/28/2021 until 08/28/2022 End: 11-11-2022 ECG COMPLETE ECG COMPLETE ECG Routine Sinus bradycardia 1 Occurrences starting 11/11/2021 until 11/11/2022 [facility] Work Phone: Comment on above: 1 Occurrences starti ng 11/11/2021 until 11/11/2022 End: 09-14-2022 Echocardiography ECHO Cardiology Routine 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 (HCC) Atrial fibrillation, unspecified type (HCC) Prostate cancer (HCC) Hyperlipidemia, unspecified hyperlipidemia type Primary hypertension Pre-operative cardiovascular examination 1 Occurrences starting 09/14/2021 until 09/14/2022 [facility] Work Phone: Comment on above: 1 Occurrences starti ng 09/14/2021 until 09/14/2022 End: 10-14-2022 LUNG DIFFUSION CAPACITY (DLCO) LUNG DIFFUSION CAPACITY (DLCO) PFT Routine 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 (HCC) Atrial fibrillation, unspecified type (HCC) Prostate cancer (HCC) Hyperlipidemia, unspecified hyperlipidemia type Primary hypertension Pre-operative cardiovascular examination 1 Occurrences starting 09/14/2021 until 10/14/2022 [facility] Work Phone: Comment on above: 1 Occurrences starti ng 09/14/2021 until 10/14/2022 Patient Education [facility] Work Phone: Patient referral [facility] Work Phone: End: 06-24-2025 PET+CT Guidance for localization of tumor of Whole body-- W 18F-FDG IV NM PET/CT PROSTATE WHOLE BODY IMAGING Radiology Routine Prostate cancer ([facility]) 1 Occurrences starting 05/25/2024 until 06/24/2025 [facility] Work Phone: Comment on above: 1 Occurrences starti ng 05/25/2024 until 06/24/2025 PET+CT Guidance for localization of tumor of Whole body-- W 18F-FDG IV NM PET/CT PROSTATE WHOLE BODY IMAGING Radiology Routine Prostate cancer ([facility]) 06/18/2024 3:34 PM EST [facility] Work Phone: POST VOID RESIDUAL POST VOID RES IDUAL Procedures Routine Urinary incontinence, unspecified type Ordered: 03/09/2022 [facility] Work Phone: Comment on above: Ordered: 03/09/2022 End: 11-27-2025 Prostate specific Ag [Mass/volume] in Serum or Plasma PROSTATE-SPECIFIC ANTIGEN DIAGNOSTIC Lab Routine Prostate cancer ([facility]) Every 3 months for 4 Occurrences starting 11/27/2024 until 11/27/2025 [facility] Work Phone: Comment on above: Every 3 months for 4 Occurrences starting 11/27/2024 until 11/27/2025 PT PLAN OF CARE CERTIFICATION PT PLAN OF CARE CERTIFICATION Procedures Routine Prostate cancer ([facility]) RICARDO (stress urinary incontinence), male Muscle weakness Ordered: 06/04/2022 [facility] Work Phone: Comment on above: Ordered: 06/04/2022 SARS-CoV-2 (COVID-19 ) RNA [Presence] in Respiratory specimen by ANNY with probe detection SELF CHECK COVID Microbiology Routine Abnormal stress test Ordered: 08/26/2021 [facility] Work Phone: Comment on above: Ordered: 08/26/2021 End: 10-14-2022 SPIROMETRY BASELINE ONLY SPIROMETRY BASELINE ONLY PFT Routine 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 (HCC) Atrial fibrillation, unspecified type (HCC) Prostate cancer (HCC) Hyperlipidemia, unspecified hyperlipidemia type Primary hypertension Pre-operative cardiovascular examination 1 Occurrences starting 09/14/2021 until 10/14/2022 [facility] Work Phone: Comment on above: 1 Occurrences starti ng 09/14/2021 until 10/14/2022 SPIROMETRY BASELINE ONLY SPIROME TRY BASELINE ONLY PFT Routine 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 (HCC) Atrial fibrillation, unspecified type (HCC) Prostate cancer (HCC) Hyperlipidemia, unspecified hyperlipidemia type Primary hypertension Pre-operative cardiovascular examination 09/28/2021 1:19 PM EDT [facility] Work Phone: STAPH AUREUS PCR STAPH AUREUS PC R Lab Routine Pre-op testing 09/29/2021 8:51 AM EDT [facility] Work Phone: URINALYSIS, REFLEX MICROSCOPIC URINALYSIS, REFLEX MICROSCOPIC Lab Routine Screening for genitourinary condition Ordered: 11/24/2021 [facility] Work Phone: Comment on above: Ordered: 11/24/2021 [facility] Immunizations Immunization Date Immunization Notes Care Provider Fa [facility] 04-28-2022 influenza (aIIV4) vaccine, age 65+ yr, quadrivalent, PF (FLUAD QUADRIVALENT) Wes Rider MD Work Phone: [facility] 04-28-2022 influenza virus vaccine, unspecified formulation Marie Beavers MD Work Phone: [facility] 07-08-2020 COVID-19 vaccine, ag e 12+ yr (PFIZER-BIONTECH - PURPLE TOP) Quentin Hampton MD Work Phone: [facility] 06-17-2020 COVID-19 vaccine, ag e 12+ yr (PFIZER-BIONTECH - PURPLE TOP) Quentin Hampton MD Work Phone: [facility] 05-15-2018 influenza, high dose seasonal, preservative-free Quentin Hampton MD Work Phone: [facility] 05-15-2018 pneumococcal conjuga te vaccine, 13 valent Quentin Hampton MD Work Phone: [facility] 07-26-2013 tetanus and diphther ia toxoids, adsorbed, preservative free, for adult use (2 Lf of tetanus toxoid and 2 Lf of diphtheria toxoid) Quentin Hampton MD Work Phone: [facility] Work Phone: 03-20-2013 pneumococcal polysaccharide vaccine, 23 valent Quenitn Hampton MD Work Phone: [facility] Work Phone: 02-04-2003 diphtheria and tetan us toxoids, adsorbed for pediatric use Quentin Hampton MD Work Phone: [facility] Work Phone: Payers Date Payer Category Payer Private Health Insurance [id number] 2024 Self-pay [id number] 2017 Medicare (Managed Care) JUDY KRAMER HMO [id number] 2017 Unknown JUDY BERGER CROS S AND BL[employer]IELD ANTHRO [employer] O [id number] 2017-Present [id number] [place], [place] [id number] [facility] [id number] 2017 Unknown [id number] 2017 Unknown [id number] 2009 Medicare [id number] 1945 Unknown [id number] .627 1945 Unknown [id number] 2..[id number] .627 1945 Unknown [id number] [id number] .627 1945 Unknown [id number] [id number] .627 Unknown [id number] Unknown [id number] .462 Unknown [id number] [id number] .462 Unknown [id number] [id number] .462 Unknown [id number] 2.16.840.1.658611.3.579.2 .462 Unknown [id number] 2.16.840.1.154089.3.579.2 .462 Unknown [id number] 2.16.840.1.558381.3.579.2 .462 Unknown [id number] 2.16.840.1.239019.3.579.2 .462 Unknown [id number] [id number] .462 Unknown [id number] .462 Social History Date Type Detail Facility Start: 08-06-2021 End: 08-26-2023 Tobacco smoking status [facility] Unknown if ever smoked [facility] Start: 09-19-2020 Cigars [facility] Start: 1945 Sex Assigned At Male [facility] Start: 09-14-2016 End: 08-26-2021 Tobacco smoking status NHIS Smokes tobacco daily [facility] End: 09-01-2021 History of tobacco use Cigar Smoker [facility] Start: 09-14-2016 End: 05-20-2022 Tobacco use and exposure Smokeless tobacco non-user [facility] Start: 06-09-2021 End: 11-27-2024 Alcohol intake Current drinker of alcohol (finding) [facility] Start: 12-03-2019 End: 05-20-2022 History SDOH Alcohol Frequency 5 [facility] Start: 12-03-2019 End: 05-20-2022 History SDOH Alcohol Std Drinks 1 [facility] Start: 12-03-2019 End: 05-20-2022 History SDOH Social Connections Get Together 2 [facility] Start: 12-03-2019 End: 05-20-2022 History SDOH Social Connections Islam 3 [facility] Start: 12-03-2019 History SDOH Physical Activity MPS 9 [facility] Start: 12-03-2019 Education 17 [facility] Start: 07-06-2010 Tobacco Comment Pt. quit smoking cigarettes in 1970 -still smokes cigars [facility] Start: 07-31-2021 End: 03-09-2022 Exposure to SARS-CoV-2 (event) Not sure [facility] Start: 08-16-2021 End: 11-11-2021 Exposure to SARS-CoV-2 (event) Unable to assess [facility] Start: 08-26-2021 History SDOH Alcohol Comment 1 glass of wine with dinner [facility] Start: 08-26-2021 End: 05-20-2022 Tobacco Comment Pt. quit smoking cigarettes in 1970 - don't consciously inhale [facility] Start: 10-07-2021 End: 05-20-2022 History SDOH Social Connections Get Together 4 [facility] Start: 10-07-2021 History SDOH Physical Activity DPW 0 [facility] Start: 10-13-2021 End: 05-20-2022 Tobacco smoking status NHIS Ex-smoker [facility] End: 09-01-2021 History of tobacco use Current smoker [facility] Start: 11-17-2021 History SDOH Alcohol Comment Prior to surgery, was drinking 1 drink per day, since surgery has cut back. [facility] Start: 03-09-2022 End: 09-15-2022 Alcohol intake [facility] Start: 05-20-2022 History SDOH Social Connections Meetings 98 [facility] Start: 05-20-2022 End: 09-15-2022 Social connection and isolation panel [facility] Active Member of [facility] bs or Organizations Not on file [facility] Are you now , , , , never or living with a partner? [facility] How often to you hav e a drink containing alcohol? 4 or more times a week [facility] How many standard dr inks containing alcohol do you have on a typical day? 1 or 2 [facility] How often do you hav e 6 or more drinks on 1 occasion? Never [facility] Do you feel stress - tense, restless, nervous, or anxious, or unable to sleep at night because your mind is troubled all the time - these days [OSQ] Not at all [facility] (I/We) worried merry er (my/our) food would run out before (I/we) got money to buy more. Never true [facility] In the past 12 month s, was there a time when you were not able to pay the mortgage or rent on time? No [facility] Start: 11-29-2019 Gender identity Identifies as male gender (finding) [facility] Do you belong to any clubs or organizations such as caodaism groups, unions, fraternal or athletic groups, or school groups? Yes [facility] Start: 05-03-2024 End: 11-03-2024 Tobacco smoking status NHIS Current Light tobacco smoker [facility] Start: 08-24-2024 End: 08-31-2024 Sex Male (finding) [facility] Tobacco Nicotine Use: CI GARS APPROX 2/WEEK. Type: Cigars. [facility] Tobacco smoking status [facility] Medical Equipment Procedure Code Equipment Code Equipment Origin al Text Equipment Identifier Dates Test blood sugar (s) 1 times daily. Dx: Type 2 DM - Controlled E11.9 Insulin: No Start: 09-23-2020 End: 09-14-2022 Comment on above: Test blood sugar(s) 1 times daily. Dx: Type 2 DM - Controlled E11.9 Insulin: No Clip Atriclip Gillinov-Eric 180d Long 35mm 25mm Internal Head - [id number] Start: 09-30-2021 Knobel Thk1.65mm P tfe [id number] Cardiovascular Patch Sterile - [id number] Start: 09-30-2021 Functional Status Date Assessment Result Facility 10-06-2021 Are you deaf, or do you have serious difficulty hearing No 10/06/2021 11:06 AM Luz Maria Beatty, NELLY [facility] 10-06-2021 Are you blind, or do you have serious difficulty seeing, even when wearing glasses No 10/06/2021 11:06 AM Luz Maria Beatty, RN [facility] 10-06-2021 Do you have serious difficulty walking or climbing stairs No 10/06/2021 11:06 AM Luz Maria Beatty, NELLY [facility] 10-06-2021 Do you have difficul ty dressing or bathing No 10/06/2021 11:06 AM Luz Maria Beatty, NELLY [facility] 10-06-2021 Because of a physica l, mental, or emotional condition, do you have difficulty doing errands alone such as visiting a physician's office or shopping No 10/06/2021 11:06 AM Luz Maria Beatty RN [facility] Mental Status Date Assessment Result Facility 10-06-2021 Because of a physica l, mental, or emotional condition, do you have serious difficulty concentrating, remembering, or making decisions No 10/06/2021 11:06 AM Luz Maria Beatty, NELLY [facility] Clinical Notes 10-18-2014 to 11-27-2024 Phillip Barnett MD - 11/27/2024 11:14 AM Gisele Quintero LPN - 11/27/2024 11:00 AM EDTTelephone Asha - Janeth Claros LPN - 11/20/2024 10:51 AM EDT Note Date & Type Note Facility 11-27-2024 Note HNO ID: [id number] Author: PHILLIP BARNETT MD Service: ? Author Type: Physician Type: Progress Notes Filed: 11/27/2024 12:00 Note Text: HISTORY OF PRESENT ILLNESS: Jermaine Begum is a 79 year old male transfer of care from [facility], history as follows: ONCOLOGIC HISTORY: Oncology History [...] with radical prostatectomy in November 2021, with [id number] disease. Given that he had gotten ADT [...] 03/16/2016 Dr. Wilkerson CARDIOVERSION N/A 09/19/2020 [facility] PAST SURGICAL HISTORY OF 05/16/1954 had [...] sweats, weight los (more content not included)... [facility] 11-27-2024 History of Presen t illness Narrative HISTORY OF PRESENT ILLNESS: Jermaine Begum is a 79 year old male transfer of care from [facility], history as follows: ONCOLOGIC HISTORY: Oncology History [...] a telephone visit. 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 More emergently, however, he needed a CABG, so started with ADT alone prior to definitive treatment with radical prostatectomy in November 2021, with [id number] disease. Given that he had gotten ADT [...] 03/16/2016 Dr. Wilkerson CARDIOVERSION N/A 09/19/2020 [facility] PAST SURGICAL HISTORY OF 05/16/1955 had [...] which included preparing to see the patient, [id number]-iy-[id number] patient care, completing clinical documentation, obtaining and/or reviewing separately obtained history, counseling and educating the patient/family/caregiver, ordering medications, tests, or procedures, independently interpreting results (not separately reported), and communicating results to the patient/family/caregiver. Electronically Signed: Phillip Barnett MD November 27, 2024 11:14 AM Transferring care closer to home DX: prostate cancer Gisele Winchester LPN documented in this encounter [facility] 11-27-2024 Note HNO ID: [id number] Author: GISELE WINCHESTER LPN Service: ? Author Type: LICENSED NURSE Type: Progress Notes Filed: 11/27/2024 12:00 Note Text: Transferring care closer to home DX: prostate cancer Gisele Winchester LPN [facility] 11-20-2024 Telephone encount er Note Patient advised to contact PCP's office to inquire about A1C order. Janeth Claros LPN [facility] 11-20-2024 Miscellaneous Notes Formattin g of this note might be different from the original. Patient advised to contact PCP's office to inquire about A1C order. Janeth Claros LPN Patient called asking if A1C can be added to labs for today. No need to call and advise patient. documented in this encounter [facility] 11-20-2024 Telephone encount er Note Patient called asking if A1C can be added to labs for today. No need to call and advise patient. [facility] Work Phone: 11-04-2024 Discharge summary [facility] 11-03-2024 Radiology Diagnostic study note [facility] Services [address] [place] [address] [employer] Decub and/or Erect MR#: [id number] Acct: [id number] Name: JERMAINE BEGUM Rep #: [id number] : 1945 M 79 From: Alison White MD PCP: Dr. Yecenia Agrawal MD Status: REG ER Study:[employer] Decub and/or Erect Date of Exam : 11/03/24 Exam# [id number] Ordering Dr: Sonu Rodriguez MD PROCEDURE: ABD [...] Decub and/or Erect IMPRESSION: CONSTIPATION. Reading Location: [id number] CC: Dr. Sonu Rodriguez MD; Dr. Yecenia Agrawal MD ~ [employer] News Anchor: Signed [facility] 11-03-2024 Discharge summary Note Date/Time November 04, 2024 1:29am [facility] Medical Records Department [address] [place] [address] Emergency Department Summary 11/03/24 MR#: [id number] Acct: [id number] Name: JERMAINE BEGUM Rep #:[id number] : [...] fevers or chills, no nausea or vomiting. [facility] Medical History Prostate cancer Dilated aortic root Incomplete right bundle branch block Internal hemorrhoid Gout Type 2 diabetes mellitus Osteoarthritis Palmar fascial fibromatosis [dupuytren] Atherosclerosis of coronary artery of [place] heart without angina pectoris Essential hypertension History [...] X-Ray 11/03/24 23:00 IMPRESSION: CONSTIPATION. Reading Location: [id number] Discharge Plan Triage Chief Complaint: Constipation ED [...] 3RF Primary Care Provider: Yecenia Agrawal Referrals: Yecenia Agrawal MD [Primary Care Provider] - 3-5 Days if not improving Activity Restrictions/Additional Instructions: Continue your bowel regime including pcjq-ypq-zwvukgk stool softeners and/or MiraLAX as needed. Print Language: Chinese Disposition Disposition: Home, Self Care What to do if you have Problems For any increased pain, shortness of breath, bleeding, nausea or vomiting, chestpain, or any unexpected problems, contact your Primary Care Provider. Call [facility] ([phone]) or report to the closest Emergency Room. Call 911 if necessary. 11/04/24 0129 <Electronically signed by Sonu Rodriguez MD> Cosigner Signature (if applicable): CC: Dr. Yecenia Agrawal MD ~ Signed [facility] Work Phone: [phone] Telephone encounter Note* Telephone Encounter - Kaitlin Romano - 11/02/2024 2:02 PM EDT Patient called back and scheduled ov 11/27/ Patient is requesting to do labs [address] Barnett allows. Kaitlin Romano [facility] Miscellaneous Notes* Telephone Encounter - Kaitlin Romano - 11/02/2024 2:02 PM EDT Patient called back and scheduled ov 11/27/ Patient is requesting to do labs [address] Barnett allows. Kaitlin Romano * Telephone Encounter - Kaitlin Romano - 11/02/2024 1:20 PM EDT Lvm for patient to return the call to schedule with Dr. Barnett in November PAGE MAKEUP SYSTEM OPERATOR/TRANSFER CARE/SELF REFERRING* Kaitlin Romano * Telephone Encounter - Irene Friedman RN - 11/02/2024 11:08 AM EDT Ok to schedule PAGE MAKEUP SYSTEM OPERATOR appointment in November with Dr. Barnett. I will need to ask Dr. Barnett if he is willing to order prior to seeing him. Humera Friedman, RN * Telephone Encounter - Kaitlin Romano - 11/02/2024 9:52 AM EDT Patient called requesting to schedule with Dr. Barnett. He would like to transfer his care from his oncologist Dr. Beavers at [facility] since he lives in [place] and his spouse see's Dr. Barnett.He states he's do for labs and ov in November. Please review and advise. [facility] Telephone encounter Note * Telephone Encounter - Kaitlin Romano - 11/02/2024 1:20 PM EDT Lvm for patient to return the call to schedule with Dr. Barnett in November PAGE MAKEUP SYSTEM OPERATOR/TRANSFER CARE/SELF REFERRING* Kaitlin Romano [facility]2025 Telephone encounter Note* Telephone Encounter - Irene Friedman RN - 11/02/2024 11:08 AM EDT Ok to schedule PAGE MAKEUP SYSTEM OPERATOR appointment in November with Dr. Barnett. I will need to ask Dr. Barnett if he is willing to order prior to seeing him. Humera Friedman, NELLY [facility] Work Phone: [phone] Telephone encounter Note* Telephone Encounter - Kaitlin Romano - 11/02/2024 9:52 AM EDT Patient called requesting to schedule with Dr. Barnett. He would like to transfer his care from his oncologist Dr. Beavers at [facility] since he lives in [place] and his spouse see's Dr. Barnett.He states he's do for labs and ov in November. Please review and advise. [facility]25 Note Discharge Instructions Thank you for allowing [facility] to assist you with your healthcare needs. The following is importantdischarge information regarding your hospital visit. Your Care Team [facility] Brown Team Your Diagnosis Status post total right knee replacement What to do next Follow Up Appointments Follow Up with [facility] Physical Therapy When:10/26/2024 03:00 PM EDT Where:[address] [place] [address] [phone] Additional Information: This is your first physical therapy appointment. Follow- up as scheduled. Follow Up with GISSELL REYNOSO PA-C, Orthopedic When:11/06/2024 04:00 PM EDT Where:[address] [facility] [address] [facility], [place] [address]- [phone] Additional Information: This is your post-op appointment. [...] to exceed 3000 mg/ day Pickup at [facility] [address] New docusate-senna (Senokot S 50 mg-8.6 mg oral tablet) 2 tab(s) by mouth Two (2) times a day Duration: 3 Days Take until first bowel movement, then as needed Pickup at [facility] New doxycycline (doxycycline hyclate 100 mg oral capsule) 1 cap by mouth Every 12 hours Duration: [address] [facility] New famotidine (Pepcid 20 mg oral tablet) 1 tab(s) by mouth Once a day Pickup at [facility] New meloxicam (meloxicam 7.5 mg oral tablet) 1 tab(s) by mouth Two (2) times a day Duration: 30 Days Do not take any other nonsteroidal anti-inflammatories while on meloxicam/ Mobic. Pickup at [facility] New oxyCODONE (oxyCODONE 5 mg oral tablet ( IMMEDIATE release )) See instructions Status post total right knee replacement 1-2 tab(s) Oral q4h, As needed for as needed for pain Pickup at [facility] Changed aspirin 81 Milligram by mouth [...] BY MOUTH IN THE EVENING Pharmacy Information [facility]: [address] [place], [place] [id number] [phone] [facility]: [facility] [address] [place], [place] [id number] [phone] Please take this list to your next doctor s visit. Bring all medications you take, including over the counter medications, herbals and other supplements with you to your doctor s visit. Patients and families are reminded to discard old lists and to update any records with all medication providers or retail pharmacies. Education Materials [facility] Post-operative Instructions PLEASE FOLLOW [facility] POST-OP INSTRUCTIONS GIVEN WATCH FOR SIGNS OF INFECTION: call the office ([phone]) if experencing any of the following: (Usually [...] on your follow up instructions. Form: 338A (38017) R: 09/19 Additional Information VACCINATE! IT SAVES LIVES! Members of the community who have not yet received the COVID-19 vaccine and would like to receive it can visit one of [facility] vaccine clinics. There are many vaccine clinic locations within the [facility]. For locations and available times, please visit [email or web address].[place].gov/. It is important to note that some COVID mobile vaccine clinics are held outdoors and may be canceled in rainy or stormy conditions. To learn more about pediatric vaccinations (ages 5-11), we invite you to visit the [facility] webpage. https://www.[employer].org/pages/7805-Isijs-Jyiriveqmzk-Fgbkwzewsl-Jcpeb-Jtc stions.htmlTo learn more about the COVID-19 vaccine, we invite you to visit the CDC website for a list of frequently asked questions.https://www.cdc.gov/coronavirus/2019-ncov/vaccines/faq.html [facility] Patient Portal Access Instructions: Stay connected with your healthcare team and access your personal medical information anytime with the [facility] Patient Portal. Please follow the directions below to create your [facility] account: 1.Access the email account you provided upon registration to the hospital/physician office.2.Look for an invitation email from [facility].3.Open the email and access the invitation link: AcceptInvitation to [facility].4.Fill in the required chacon to create your account. To access your account, visit [employer]. Click the blue button labeled Access Patient [...] who you will allowto register on the [facility] Patient Portal for access to your information. You can also access the [facility] Patient Portal on the [facility] [facility] alfie. Simply click on Patient Portal and then log into your account. If you would like to receive a full copy of your medical records, please contact the [facility] Medical Records Department by calling [phone], Tuesday through Tuesday between 8 a.m. and [...] Call your local pharmacy or go to http://MedEncentive/2Z7Wz9z to find one close to you.3.Make use of household items: Use cat litter or old coffee grounds to dispose medications if other options arenot available. Mix your drugs with these household products, seal them in an airtight container andthrow it into the garbage. Call [facility]: [phone] to be sure your drugs can be [...] COPY. Signatures Patient Education Materials 5 - [facility] Post-op Instruction 12/2016 (05017) Medication Leaflets My discharge plan and instructions have been reviewed and explained to me and ICHANCE DENNIS J understand my current condition and have read and understand these discharge instructions. I have received a written copy of the plan/instructions. If I have questions, I am aware that I should contact my doctor. Patient/Hospice/Home Health Aide Signature: Date/Time: Relationship to Patient: Witness Name/Signature: Date/Time: [facility]06-11-2025 Hospital Discharge instructions Patient Education 10/24/2024 08:44:40 5 - [facility] Post-op Instruction 12/2016 (21486) [facility] Post-operative Instructions PLEASE FOLLOW [facility] POST-OP INSTRUCTIONS GIVEN WATCH FOR SIGNS OF INFECTION: call the office ([phone]) if experencing any of the following: (Usually [...] on your follow up instructions. Form: 338A (96521) R: 09/19 Follow Up Care 08/27/2024 07:21:05 With:[facility] Address: [facility] [place] [phone] When:10/26/2024 15:00:00 Comments:This is your first physical therapy appointment. Follow-up as scheduled. With:GISSELL REYNOSO PA-C, Orthopedic Address: [address] [facility], [place] [phone] When:11/06/2024 16:00:00 Comments:This is your post-op appointment. Follow-up as scheduled. [facility] 06-11-2025 Pastoral care Progress note Pastoral Care Note Entered On: 10/24/2024 9:12 EDT Performed On: 10/24/2024 9:10 EDT by Otto Fuentes Pastoral Care Type of Pastoral Visit : Initial visit Spiritual Care Visit Initiated by : Data Capture Specialist Spiritual Care Reason for Visit : General [...] family support and is connected to a caodaism; pt denies any concerns but asks for a prayer for his recovery and therapy Pastoral Care Visit Length : 10 minute(s) Otto Fuentes - 10/24/2024 9:10 EDT Digitally Signed by Otto Fuentes on 10/24/2024 09:10 AM [facility]06-11-2025 Note Date of Service October 24, [...] would like his prescriptions E scribed to [facility] in [facility]. We discussed complications with narcotic E scribed to this facility. We will send all medications to [facility] exceptfor the oxycodone. This will be sent to [facility]. Patient will continue with his prebiotic that he uses for constipation. Patient has outpatient physical therapy established. Upon di scharge he will contact our office with any concerns or questions. Prior to discharge patient will have distal pin site dressing change. Discussed with nursing. I have reviewed the [place] Automated Rx Reporting System (OARRS) report for [...] OTTO HILL PA-C on 10/24/2024 08:42 AM [facility]06-11-2025 Note Date of Service October 24, [...] would like his prescriptions E scribed to [facility] in [facility]. We discussed complications with narcotic E scribed to this facility. We will send all medications to [facility] exceptfor the oxycodone. This will be sent to [facility]. Patient will continue with his prebiotic that he uses for constipation. Patient has outpatient physical therapy established. Upon di scharge he will contact our office with any concerns or questions. Prior to discharge patient will have distal pin site dressing change. Discussed with nursing. I have reviewed the [place] Automated Rx Reporting System (OARRS) report for [...] OTTO HILL PA-C on 10/24/2024 08:42 AM [facility]06-10-2025 Note* Exam Date Time Procedure Performing Provider Status 10/23/24 2:07 PM US Anesthesia Block Auth (Verified) [id number] ORIGINAL Images acquired, not reported on this accession number. [facility]06-10-2025 Note* Exam Date Time Procedure Performing Provider Status 10/23/24 1:25 PM XR Knee 1 or 2 Views Right DEVIN HERNANDEZ MD; Auth (Verified) [id number] ORIGINAL EXAMINATION: TWO XRAY VIEWS OF THE [...] 10/23/2024 1:32:59 PM Ordering Provider: GRISELDA LYNCH [facility]06-10-2025 Anesthesiology Consult note Patient: JERMAINE BEGUM Age: 79 years Sex: Male : 1945 Associated Diagnoses: None Author: BETI BUTTS APRN-COPY EDITOR Assessment Postanesthesia assessment Vitals: Vital signs from [...] by BETI BUTTS on 10/23/2024 01:05 PM [facility]06-10-2025 Anesthesiology Consult note Patient: JERMAINE BEGUM Age: 79 years Sex: Male : 1945 Associated Diagnoses: None Author: BETI BUTTS APRN-COPY EDITOR Preoperative Information Time of last food or [...] or recorded. Procedure history: Total hip replacement ([id number]). Comments: 08/29/2024 9:57 Tessa Hall RN RIGHT Total hip replacement ([id number]). Comments: 08/29/2024 9:57 Tessa Hall RN LEFT Total knee replacement ([id number]). Comments: 08/29/2024 9:58 EDT - Tessa Navas RN PARTIAL, LEFT Prostatectomy ([id number]). CABG x 3 - Coronary artery bypass grafts x 3 ([id number]). Social History: Social & Psychosocial Habits Alcohol [...] Signs (last 24 hrs) Last Charted Temp Dzuvmxid30.9 DegC (OCT 23 10:03) Heart Rate Fbvgpxlix11 bpm (OCT 23 12:25) RJE363 mmHg (OCT 23 12:25) DBP54 mmHg (OCT 23 12:25) Measurements from flowsheet : Measurements 10/23/2024 10:03 EDT Height 185.4 cm Admission Weight 102.3 kg [place] Body Weight 79.88 kg Admission Body Mass [...] Device Type TRAY ARROYO CATH 16F W/BAG [id number] SN - TDC - Location BLADDER 10/23/2024 11:45 EDT SN - CAt - Case Attendee SN - CAt - Case Attendee SN - CAt - Role Performed Hostess Relief 10/23/2024 11:45 EDT SN - CTm [...] Irl - Additive IRRIGATION CHG 0.05% IRRISEPT [id number] SN - Irl - Additive IRRIGATION ANTIMICROBIAL 450ML [place] [id number] SN - IrI - Volume Out 450 [...] Attendee SN - CAt - Role Performed Social Welfare Clerk 10/23/2024 11:08 EDT SN - PTCare - [...] Surgeon SN - CAt - Role Performed Hostess 1 SN - CAt - Role Performed Scrub 1 SN - CAt - Role Performed Machine Repairman 1 SN - CAt - Role Performed Physician Shear Scrapman SN - CAt - Role Performed COPY EDITOR 10/23/2024 10:52 EDT SN - Preop - [...] 10:11 EDT Blood Glucose, Capillary 134 mg/dL TN 10/23/2024 10:03 EDT Height 185.4 cm Admission Weight 102.3 kg [place] Body Weight 79.88 kg Admission Body Mass Index 29.76 m2 Temperature Temporal Artery 35.9 DegC Peripheral Pulse Rate 67 bpm Respiratory Rate 20 br/min Systolic Blood Pressure Non-Invasive 151 mmHg TN Diastolic Blood Pressure Non-Invasive 73 mmHg Primary [...] Person #1 We May Share LETICIA BEGUM [phone] Designated Person #1 Relationship Spouse Privacy Restrictions [...] evident Teaching Method Explanation Preferred Spoken Language Chinese Preferred Written Language Chinese Teaching Evaluation No further teaching needed Total [...] Other (Not Done) . Assessment and Plan [place] Society of Anesthesiologists (ASA) physical status classification: Class III. Anesthetic Preoperative Plan Anesthetic technique: Spinal. Postoperative pain management: adductor block. Informed consent: signed by patient. Digitally Signed by BETI BUTTS on 10/23/2024 12:35 PM [facility]02-18-2025 Telephone encounter Note* Telephone Encounter - Cordelia Hussein RN - 07/03/2024 1:32 PM EST lab orders placed for Testosterone and PSA to be checked early August Cordelia Hussein RN [facility]02-18-2025 Miscellaneous Notes* Telephone Encounter - Cordelia Hussein RN - 07/03/2024 1:32 PM EST lab orders placed for Testosterone and PSA to be checked early August Cordelia Hussein RN documented in this encounterOhiohealth [facility] History of Present illness Narrative* Marilyn Sheppard, [employer] - 06/18/2024 2:00 PM EST RADIOLOGY SERVICE [...] PATIENT PRESENTS WITH AN IMPLANTABLE OR ATTACHED TRAY SERVICE WORKER: No CREATININE: Creatinine Date Value Ref Range [...] 1357 PATIENT DISCHARGED TO: Ambulatory patient, left IN department area. Is this a therapy: No A Diagnostic radioactive procedure has taken place, with no further precautions necessary other than routine body substance precautions. More information regarding radiation safety can be found usingthis link: [email or web address]-% 20Diagnostic%20Nuclear%20Medicine%20Procedures.pdf SIGNATURE: Sherly Houston PATIENT NAME: Jermaine Begum DATE: June 18, 2024 TIME: 1:59 PM PAGER/CONTACT #: documented in this encounterOhiohealth [facility]-2025 NoteHNO ID: [id number] Author: MARILYN SHEPPARD Nuclear Tech Service: Nuclear Medicine Author Type: Preschool Teacher'S Assistant Type: Progress Notes Filed: 06/18/2024 14:00 Note [...] PATIENT PRESENTS WITH AN IMPLANTABLE OR ATTACHED TRAY SERVICE WORKER: No CREATININE: Creatinine Date Value Ref Range [...] safety can be found using this link: [email or web address]%20Protection%20-% 20Diagnostic%20Nuclear%20Medicine%20Procedures.pdf SIGNATURE: Marilyn Sheppard [employer] PATIENT NAME: Jermaine Begum DATE: June 18, 2024 TIME: 1:59 PM PAGER/CONTACT #:[facility]01-24-2025 Telephone encounter Note* Telephone Encounter - Sara Lux - 06/08/2024 8:23 AM EST 06/08 lvm [facility]01-24-2025 Miscellaneous Notes* Telephone Encounter - Sara Lux - 06/08/2024 8:23 AM EST 06/08 lvm * Telephone Encounter - Sheryl Huerta RN - 06/07/2024 12:28 PM EST PSMA Comments for Supervisor Film Processing: any site Will the patient need anesthesia: [...] F-18 flotufolastat,18F flotufolastat Posluma GA68 PSMA PET 50970/LOCAMETZ (Gallium GA-68 Gozetotide) (6 mCi) A9800 - Posluma (Flotufolastat F18) (8mCi), A9608 - Region Auth#: [id number] Date Range: 06-07-24 to 09-04-24 for 1 dos MD NPI: MARIE BEAVERS [id number] Member ID: Judy [id number] Site/Contact: Yumisyl Oh/Ref#: Notes: system auto approved PET/Ct Prostate Route to or Requested Scheduling Pool: P PET MARKETING ASSISTANT RETAIL DIVISION , P [facility] CLERICAL POOL([place]), P [facility] * Telephone Encounter - Tiffanie Cheung RN - 06/07/2024 11:23 AM EST This form is used for MAIN CAMPUS APPOINTMENTS ONLY. Is this request for a Main [place] PET scan appointment? Yes: Kennel Attendant: Tiffanie Cheung RN Requesting Person (Last Name, First Name): Tiffanie Cheung RNCC Area Code + Phone/Pager: [facility] #[phone] Who do we call to schedule this [...] to P COORD REVIEW documented in this encounterOhiohealth [facility]01-23-2025 Telephone encounter Note * Telephone Encounter - Sheryl Huerta RN - 06/07/2024 12:28 PM EST PSMA Comments for Supervisor Film Processing: any site Will the patient need anesthesia: [...] F-18 flotufolastat,18F flotufolastat Posluma GA68 PSMA PET 54253/LOCAMETZ (Gallium GA-68 Gozetotide) (6 mCi) A9800 - [place] (Flotufolastat F18) (8mCi), A9608 - Region Auth#: [id number] Date Range: 06-07-24 to 09-04-24 for 1 dos NPI: MARIE BEAVERS [id number] Member ID: [place] [id number] Site/Contact: Berto Case/Ref#: Notes: system auto approved PET/Ct Prostate Route to or Requested Scheduling Pool: P PET MARKETING ASSISTANT RETAIL DIVISION , P [facility] CLERICAL POOL([place]), P [facility]01-23-2025 Telephone encounter Note* Telephone Encounter - Tiffanie Cheung RN - 06/07/2024 11:23 AM EST This form is used for MAIN CAMPUS APPOINTMENTS ONLY. Is this request for a [place] PET scan appointment? Yes: Kennel Attendant: Tiffanie Cheung RN Requesting Person (Last Name, First Name): Tiffanie Cheung [facility] Area Code + Phone/Pager: [facility] #[phone] Who do we call to schedule this [...] Send requests to P COORD REVIEW [facility]01-10-2025 NoteHNO ID: [id number] Author: MARIE BEAVERS MD Service: ? Author Type: Physician Type: Progress Notes Filed: 05/25/2024 21:34 Note Text: [facility] PROGRESS NOTE - TELEPHONE VISIT I have communicated my name and active licensure. The patient's identity and physical location were verified at the time of this visit. Either the patient or their legal construction sales representative has been informed of the risks [...] a telephone visit. 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 More emergently, however, he needed a CABG, so started with ADT alone prior to definitive treatment with radical prostatectomy in November 2021, with goD3iN2 disease. Given that he had gotten ADT [...] with recurrence 78 y.o. M with resected ucF9vH3 prostate cancer here for follow-up s/p salvage XRT and short course ADT. Pt rising up to 0.22 ng/mL. Will evaluate with PSMA PET PLAN: 1) PSMA PET Total Time Spent: 7 min Marie Beavers MD Associate Staff, Genitourinary Medical Oncology May 25, 2024 9:33 [facility]01-10-2025 History of Present illness Narrative * Marie Beavers MD - 05/25/2024 9:[address] [facility] PROGRESS NOTE - TELEPHONE VISIT I have communicated my name and active licensure. The patient's identity and physical location wereverified at the time of this visit. Either the patient or their legal construction sales representative has been informed of the risks [...] a telephone visit. 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 More emergently, however, he needed a CABG, so started with ADT alone prior todefinitive treatment with radical prostatectomy in November 2021, with pvV6pY4 disease. Given that he had gotten ADT [...] with recurrence 78 y.o. M with resected bjR2hT2 prostate cancer here for follow-up s/p salvage XRT and short courseADT. Pt rising up to 0.22 ng/mL. Will evaluate with PSMA PET PLAN: 1) PSMA PET Total Time Spent: 7 min Marie Beavers MD Associate Staff, Genitourinary Medical Oncology May 25, 2024 9:33 PM documented in this encounterOhiohealth [facility]12-19-2024 Evaluation note* Diagnosis Onset Date Resolution [...] 2014 resolved May 03 2 024 10:27am [facility] Work Phone: [phone] [facility] Medical Records Department [address] [place] [address] History Physical Exam 04/27/24 1446 MR#: [id number] Acct: [id number] Name: JERMAINE BEGUM Rep #: [id number] : 1945 78 From: Talia MCGEE PCP: Dr. Yecenia Agrawal MD Status:[facility] History and Physical Date of Admission: [...] the same year. While he was in [place] in June 2021, he experienced some sharp [...] atrial fibrillation. He was seen by [facility] Electrophysiology, Dr. Shree Ochoa, on 11/12/2021 [...] Preserved ejection fraction. Reduced functional capacity [facility] Medical History Prostate cancer Dilated aortic root Incomplete right bundle branch block Internal hemorrhoid Gout Type 2 diabetes mellitus Osteoarthritis Palmar fascial fibromatosis [dupuytren] Atherosclerosis of coronary artery of [place] heart without angina pectoris Essential hypertension History [...] headache(s), dizziness or Nosebleed/e (more content not included)...[facility]06-20-2024 Telephone encounter Note* Telephone Encounter - Precious Deleon MA - 11/03/2023 12:32 PM EDT Pt requested to remove Dr. Rider as PCP and cancel his upcoming appt as scheduled. Precious Deleon MA [facility]06-20-2024 Miscellaneous Notes* Telephone Encounter - Precious Deleon MA - 11/03/2023 12:32 PM EDT Pt requested to remove Dr. Rider as PCP and cancel his upcoming appt as scheduled. Precious Deleon MA documented in this encounterOhiohealth [facility]06-06-2024 Telephone encounter Note * Telephone Encounter - Tyler Hurst RN - 10/20/2023 11:38 AM EDT Pt called in asking for Magnesium results. Let him know 10/02/21 he was 2.1 and 1.7 and 09/30/21 he was 1.9. [facility]06-06-2024 Miscellaneous Notes* Telephone Encounter - Tyler Hurst RN - 10/20/2023 11:38 AM EDT Pt called in asking for Magnesium results. Let him know 10/02/21 he was 2.1 and 1.7 and 09/30/21 he was 1.9. documented in this encounterOhiohealth Arthur [facility]04-03-2024 History of Present illness Narrative* Marie Beavers MD - 08/17/2023 10:[address] [facility] PROGRESS NOTE - TELEPHONE VISIT I have communicated my name and active licensure. The patient's identity and physical location wereverified at the time of this visit. Either the patient or their legal construction sales representative has been informed of the risks [...] with radical prostatectomy in November 2021, with trH4hW2 disease. Given that he had gotten ADT [...] with recurrence 78 y.o. M with resected nsP6nF4 prostate cancer here for follow-up s/p salvage [...] 2023 10:22 AM documented in this encounterOhiohealth Arthur [facility]11-20-2023 Miscellaneous Notes* Telephone Encounter - Inés [...] urine. 11. : N/a Protocols used: Back Pifu-IULVL-BH documented in this encounterOhiohealth Arthur [facility]09-28-2023 History of Present illness Narrative* Marie Beavers MD - 02/10/2023 1:[address] [facility] PROGRESS NOTE - TELEPHONE VISIT I have communicated my name and active licensure. The patient's identity and physical location wereverified at the time of this visit. Either the patient or their legal construction sales representative has been informed of the risks [...] with radical prostatectomy in November 2021, with ztE0oK6 disease. Given that he had gotten ADT [...] prostate cancer 77 y.o. M with resected wxE1fM9 prostate cancer here for follow-up. S/p salvage RT with short course ADT. PSA undetectable, but testosterone also remaining at castratelevels. PLAN: 1) follow-up with PSA and testosterone in 6 months Total Time Spent: 7 minutes Marie Beavers MD documented in this encounterOhiohealth Arthur [facility]06-29-2023 History of Present illness Narrative* Artur [...] Artur Mi MD documented in this encounterOhiohealth Arthur [facility]06-05-2023 Miscellaneous Notes* Telephone Encounter - Jaylene Smallwood Ma - 10/18/2022 8:10 AM EDT Pt scheduled for Physical on 05/24/23 at 11 AM. Pt notified via [employer]. * Telephone Encounter - Jaylene Smallwood Ma - 10/15/2022 4:57 PM EDT Pt notified via [employer]. Offered to schedule his physical in May. [...] Precious Deleon Ma documented in this encounterOhiohealth Arthur G.[facility]05-31-2023 Nurse Note* Marissa Salvador RN - [...] education: 05 minutes. documented in this encounterOhiohealth Arthur G.[facility]. [facility]05-31-2023 History of Present illness Narrative* Artur Mi MD, MD - 10/13/2022 12:00 AM EDT JERMAINE BEGUM [id number] : 1945 10/13/2022 [facility] Department of Radiation Oncology RADIATION ONCOLOGY - COMPLETION NOTE DATE OF SIMULATION: 08/13/22 DATES OF TREATMENT: 08/24/22 - 10/13/22 UNIT: _[facility] AREA TREATED: Pelvis/prostate bed DISEASE: Stage ROGERIO, pT3a pN1, prostate adenocarcinoma with Wilton score 7 (4+3) and pretreatment PSA 34.08 [...] PM Electronically Signed cc: Wes Rider [address] [place] [address] Marie Pearcefabien [address] [facility] [address] [place] [address] [facility] [address] documented in this encounterOhiohealth Arthur [facility]05-30-2023 Nurse Note* Marissa Salvador RN - 10/12/2022 11:[address] Mi's orders to help relieve gas prior to radiation treatment, #14 fr cath inserted via rectum to 10cm and held in place for about 1 min then removed. Pt tolerated well. documented in this encounterOhiohealth Arthur [facility]05-09-2023 History of Past illness Narrative* Problem [...] atrial fibrillation Coronary artery disease invo lving [place] coronary artery of [place] heart without angina pectoris 08/27/2021 09/30/2021 documented as of this encounter (statuses as of 08/17/2023) [facility]05-09-2023 Nurse Note* Sweta Infante RN - 09/21/2022 9:52 AM EDT Radiation Therapy - Nursing Note (OTV) PATIENT NAME: Jermaine Begum PATIENT September 21, 2022 [facility] FACILITY/LOCATION: [place] NURSING NOTE TYPE: PROSTATE - MALE PELVIS Subjective Data some fatigue, diarrhea , 2 gas x in the am, nothing else Additional Data Do you want to see a Chaser Helper? No Status: Patient is male Stress Scale: On a scale of 0 to 10, what number best describes how much distress you have experienced in the past week?(0 being no distress and 10 being extreme distress) 2 Social work notified: Pt denied need to see hospice social worker at this time. Nursing Assessment Fatigue: increased [...] Sweta Infante RN documented in this encounterOhiohealth [facility]05-[facility]-2023 History of Present illness Narrative* Artur Mi MD, MD - 09/21/2022 9:50 AM EDT Radiation Oncology - On Treatment Review (OTR) Note PATIENT NAME: Jermaine Begum PATIENT DIAGNOSIS: Stage ROGERIO, pT3a pN1, prostate adenocarcinoma with Wilton score 7 (4+3) and pretreatmentPSA 34.08 ng/mL [...] Artur Mi MD documented in this encounterOhiohealth [facility]-2023 Nurse Note* Marissa Salvador RN - 09/15/2022 10:[address] Mi's orders to help relieve gas prior to radiation treatment, #14 fr cath inserted via rectum to 10cm and held in place for about 1 min then removed. Pt tolerated well. documented in this encounterOhiohealth [facility]-2023 Nurse Note* Marissa Salvador RN - 09/14/2022 9:45 AM EDT Radiation Therapy - Nursing Note (OTV) PATIENT NAME: Jermaine Begum PATIENT September 14, 2022 [facility] FACILITY/LOCATION: [facility] NOTE TYPE: PROSTATE - MALE PELVIS Subjective Data No c/o Additional Data Do you want to see a Chaser Helper? No Status: Patient is male Stress Scale: On a scale of 0 to 10, what number best describes how much distress you have experienced in the past week?(0 being no distress and 10 being extreme distress) 4 Social work notified: Pt denied need to see hospice social worker at this time. Nursing Assessment Fatigue: increased [...] Pt tolerated well. documented in this encounterOhiohealth [facility]-2023 History of Present illness Narrative* Artur [...] Artur Mi MD documented in this encounterOhiohealth [facility]-01-2023 Nurse Note* Marissa Salvador RN - 09/13/2022 9:[address] Mi's orders to help relieve gas prior to radiation treatment, #14 fr cath inserted via rectum to 10cm and held in place for about 1 min then removed. Pt tolerated well. documented in this encounterOhiohealth [facility]04-28-2023 Nurse Note* Marissa Salvador RN - 09/10/2022 9:[address] Mi's orders to help relieve gas prior to radiation treatment, #14 fr cath inserted via rectum to 10cm and held in place for about 1 min then removed. Pt tolerated well. documented in this [facility]04-27-2023 Nurse Note* Marissa aSlvador RN - 09/09/2022 10:[address] Mi's orders to help relieve gas prior to radiation treatment, #14 fr cath inserted via rectum to 10cm and held in place for about 1 min then removed. Pt tolerated well. documented in this [facility]04-26-2023 Nurse Note* Sweta Infante RN - 09/08/2022 3:[address] Mi's orders to help relieve gas prior to radiation treatment, #14 fr cath inserted via rectum to 10cm and held in place for about 1 min then removed. Pt lisa. well. documented in this [facility]04-25-2023 Nurse Note* Sweta Infante RN - [...] NAME: Jermaine Begum PATIENT September 07, 2022 [facility] FACILITY/LOCATION: [facility] NOTE TYPE: PROSTATE - MALE PELVIS Subjective Data not eating a lot since he has been taking the mag citrate Additional Data Do you want to see a Chaser Helper? No Status: Patient is male Stress Scale: On a scale of 0 to 10, what number best describes how much distress you have experienced in the past week?(0 being no distress and 10 being extreme distress) 2 Social work notified: Pt denied need to see hospice social worker at this time. Nursing Assessment Fatigue: none [...] Sweta Infante RN documented in this encounterOhiohealth [facility]04-25-2023 History of Present illness Narrative* Artur [...] Artur Mi MD documented in this encounterOhiohealth [facility]04-21-2023 Nurse Note* Sweta Infante RN - 09/03/2022 12:[address] Mi's orders to help relieve gas prior to radiation treatment, #14 fr cath inserted via rectum to 10cm and held in place for about 1 min then removed. Pt lisa. well documented in this [facility]04-20-2023 History of Present illness Narrative* Sweta Infante RN - 09/02/2022 9:[address] Mi's orders to help relieve gas prior to radiation treatment, #14 fr cath inserted via rectum to 10cm and held in place for about 1 min then removed. Pt lisa. well. documented in this encounterOhiohealth [facility]04-14-2023 Nurse Note* Marissa Salvador RN - [...] Pt verbalized understanding. documented in this encounterOhiohealth [facility]04-12-2023 Nurse Note* Sweta Infante RN - 08/25/2022 11:[address] Mi's orders to help relieve gas prior to radiation treatment, #14 fr cath inserted via rectum to 10cm and held in place for about 1 min then removed. Small amount of brown stool noted in tip of catheter. Pt lisa. well. documented in this encounterOhiohealth [facility]04-11-2023 History of Present illness Narrative* Arely [...] Arely Baxter LPN documented in this encounterOhiohealth [facility]04-11-2023 History of Present illness Narrative* Artur [...] Artur Mi MD documented in this encounterOhiohealth [facility]04-11-2023 Nurse Note* Sweta Infante RN - 08/24/2022 10:02 AM EDT Radiation Therapy - Nursing Note (OTV) PATIENT NAME: Jermaine Begum PATIENT August 24, 2022 [facility] FACILITY/LOCATION: [place] NURSING NOTE TYPE: PROSTATE - MALE PELVIS Subjective Data no complaints Additional Data Do you want to see a Chaser Helper? No Status: Patient is male Stress Scale: On a scale of 0 to 10, what number best describes how much distress you have experienced in the past week?(0 being no distress and 10 being extreme distress) 1 Social work notified: Pt denied need to see hospice social worker at this time. Nursing Assessment Fatigue: none [...] Sweta Infante RN documented in this encounterOhiohealth [facility]04-04-2023 Miscellaneous Notes* Telephone Encounter - Arely Baxter LPN - 08/17/2022 4:34 PM EDT [employer] message sent. Arely Baxter LPN * Telephone Encounter - Arely Baxter LPN - 08/17/2022 4:20 PM EDT Images from the original note were not included. Patient stopped by clinic- reports he had his phone on silence on accident. Requested clarificationand to send response to [employer] along with appointment. Patient would like clarification since he had PSA done July 29, 2022. Informed patient I [facility] and would let him know. Arely [...] Arely Baxter LPN * Telephone Encounter - Miaa Floyd LPN - 08/17/2022 11:13 AM EDT [...] No answer- left message to call clinic. [employer]iver message sent Arely Baxter LPN * Telephone [...] dose since all mine are 4 month correction patients. I can try to get a [...] [place], [place], PAEsteban documented in this encounterOhiohealth [facility]04-04-2023 History of Present illness Narrative* Jacquelyn [...] Jacquelyn Heller PT documented in this encounterOhiohealth [facility]03-31-2023 History of Present illness Narrative* Corby Elliott MD - 08/13/2022 12:00 AM EDT JERMAINE BEGUM [id number] 08/13/2022 [facility] Department of Radiation Oncology [facility] RADIATION ONCOLOGY SIMULATION NOTE DATE OF SIMULATION: 08/13/2022 MACHINE: [employer] [facility] DIAGNOSIS: Malignant neoplasm of prostate AREA:pelvis [...] M.D. :42 PM documented in this encounterOhiohealth [facility]03-31-2023 History of Present illness Narrative* Artur Mi MD, - 08/13/2022 12:00 AM EDT JERMAINE BEGUM [id number] 08/13/2022 [facility] Department of Radiation Oncology Treatment Planning [...] M.D. 0:57 AM documented in this encounterOhiohealth Arthur [facility]03-27-2023 History of Present illness Narrative* Corby Elliott MD - 08/09/2022 12:00 AM EDT JERMAINE BEGUM [id number] 08/09/2022 [facility] Department of Radiation Oncology [facility] RADIATION ONCOLOGY SIMULATION NOTE DATE OF SIMULATION: 08/09/2022 MACHINE: [employer] [facility] DIAGNOSIS: Prostate cancer AREA:Pelvis PROTOCOL: None [...] M.D. :51 PM documented in this encounterOhiohealth [facility]03-21-2023 History of Present illness Narrative* Jacquelyn [...] Care: created on 06/04/22 Updated on: 08/05/22 [place] in home exercise program.-PROGRESSING Patient will demonstrate [...] Patient to be seen for Therapeutic exercise (84494), Manual therapy (59270), Self-mcc management (88106), Patient/Family/Caregiver Education PLAN FOR NEXT VISIT: progress exercises as tolerated SUBJECTIVE: Patient Reason for Visit: Pt reports no change in bladder function since IE two months ago (pt was in [place] the past couple months). Pt reports good [...] program to facilitate proper performance and compliance. Self-Correction Management: 1: Reviewed expected timeline and goals for PFPT based on current procedure Skilled Intervention: Skilled judgment in the selection of proper modification for activity of daily living/home management based on clinical presentation, deficits, and needs. Billing Therapeutic Exercise Treatment Minutes: 36 Self-Care/Home Management Treatment Minutes: 4 Total Treatment Time Minutes (timed/untimed): 40 Jacquelyn Heller PT documented in this encounterOhiohealth Arthur [facility]01-27-2023 History of Present illness Narrative* Marie Beavers MD - 06/11/2022 11:[address] [facility] PROGRESS NOTE - TELEPHONE VISIT SERVICE DATE: [...] a telephone visit. 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 More emergently, however, he needed a CABG, so started with ADT alone prior todefinitive treatment with radical prostatectomy in November 2021, with [id number] disease. Given that he had gotten ADT [...] prostate cancer 76 y.o. M with resected [id number] prostate cancer here for follow-up. We had [...] which included preparing to see the patient, [id number] patient care, completing clinical documentation, obtaining and/or reviewing separately obtained history, counseling and educating the patient/family/caregiver, and ordering medications, tests, or procedures. Marie Beavers MD Associate Staff, Genitourinary Medical Oncology June 11, 2022 11:20 PM documented in this encounterOhiohealth [facility]01-23-2023 Nurse Note* Marissa Salvador RN - 06/07/2022 9:40 AM EST Radiation Therapy - Nursing Note (Consult) PATIENT NAME: Jermaine Begum PATIENT June 07, 2022 [facility] FACILITY/LOCATION: [place] Chief Complaint: consult for prostate cancer Reason for visit: Consult. Referring physician: Internal provider Dr Hampton Subjective Data: pt reports just finding out about therapy for urinary incontinence, pt saw Jacquelyn Lombardo PT 06/04/22 Additional Data Do you want to see a Chaser Helper? No Are you interested in information about fertility? No Status: Patient is male Stress Scale: On a scale of 0 to 10, what number best describes how much distress you have experienced in the past week?(0 being no distress and 10 being extreme distress) 1 Social work notified: Pt denied need to see hospice social worker at this time. SIGNED by: Marissa Salvador RN documented in this encounterOhiohealth Arthur [facility]01-23-2023 History of Present illness Narrative* Artur Mi [...] biopsy on 06/23/21 showed prostate adenocarcinoma with Wilton score 7 (4+3). CT A/P on 07/30/21 [...] 03/16/2016 Dr. Wilkerson CARDIOVERSION N/A 09/19/2020 [facility] PAST SURGICAL HISTORY OF 05/16/1955 had [...] from <0.02.He saw Dr. Hampton at the [facility] main campus and salvage radiation treatment was recommended if repeat PSA confirms PSA rise. I agree. He will see Dr. Beavers to discuss hormonal therapy. I explained the rationale, benefits, alternative management options and potential complications of radiation treatment to the patient and he understands and agrees to proceed. It was explained and understood that other personnel such as radiation therapists, traffic enumerator, and physicists will participate in planning and delivery of radiation treatment. Permanent tattoo paulson will be placed to aid with positioning for daily treatment and the patient consented. He plans to travel to [place] for six weeks and will return in the middle of July and he wants to repeat PSA at that time. Thank you very much for allowing us to participate in his care. Signed by: Artur Mi MD cc: Wes Rider [address] [place] [address] Quentin Hampton [address] [facility] [address] Diamond Damon [address] [facility] [address] Marie Beavers [address] [facility] [address] documented in this encounterOhiohealth Arthur [facility]01-20-2023 History of Present illness Narrative* Jacquelyn [...] of Care: created on 06/04/22 through 09/02/22 Garrison in home exercise program. Patient will demonstrate [...] Planned: 4 Planned Treatment Interventions: Therapeutic exercise (26768);Manual therapy (64559);Self-care homemanagement (76880);Patient/Family/Caregiver Education PLAN FOR NEXT VISIT: biofeedback, progress [...] 03/16/2016 Dr. Wilkerson CARDIOVERSION N/A 09/19/2020 [facility] PAST SURGICAL HISTORY OF 05/16/1955 had [...] States/Identifies;Return Demonstration TREATMENT: PT Treatment Interventions: Therapeutic Exercise;Self-Correction Management Evaluation Therapeutic Exercise: 1: *quick kegals, [...] program to facilitate proper performance and compliance. Self-Correction Management: 1: Reviewed pelvic floor anatomy and [...] Jacquelyn Heller PT documented in this encounterOhiohealth Arthur [facility]01-20-2023 Miscellaneous Notes* Telephone Encounter - Precious Deleon Ma - 06/04/2022 8:05 AM EST See pt message. Assuming he's not needing any labs at present time. A1c, Lipid 05/14/22. CMP, A1c 02/25/22. A1c 12/25/21. Precious Deleon Ma documented in this encounterOhiohealth Arthur [facility]01-17-2023 History of Present illness Narrative* Quentin [...] nodes positive for carcinoma -Final pathologic stage [id number] Post-operative PSA was undetectable (while T was [...] 03/16/2016 Dr. Wilkerson CARDIOVERSION N/A 09/19/2020 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 Residence: [place], [place] with COMPLETE REVIEW OF SYSTEMS: 12 [...] pelvic nodes. He would favor treatment in [place] with Dr. Mi. We will assist in [...] with prostate adenocarcinoma, initial PSA 34.08, biopsy Wilton score 4 + 3 = 7 (grade [...] schedule). - Referral to rad onc at [facility] with plan for pelvic RT. - He [...] Quentin Hampton MD cc: Wes Rider [address] [place] [address] Diamond Damon [address] [facility] [address] documented in this encounterOhiohealth [facility]01-16-2023 Miscellaneous Notes* Telephone Encounter - Nicolette Underwood RN - 05/31/2022 11:33 AM EST Chart reviewed for upcoming appointment in Radiation Oncology. Patient has detectable PSA. Nicolette Echle, RN documented in this encounterOhiohealth Arthur [facility]01-05-2023 History of Present illness Narrative* Wes [...] daily. Wantsto get back into exercising at [employer]. Enjoys golfing. Only complaint today, which he [...] 03/16/2016 Dr. Wilkerson CARDIOVERSION N/A 09/19/2020 [facility] PAST SURGICAL HISTORY OF 05/16/1955 had [...] independently gathered by the clinical customer support professional and the remaining scribed note accurately describes [...] Precious Deleon Ma documented in this encounterOhiohealth Arthur [facility]01-03-2023 Miscellaneous Notes* Telephone Encounter - Jaylene Smallwood Ma - 05/18/2022 3:58 PM EST Pt notified via [employer] that he is due for an appointment [...] Precious Deleon Ma documented in this encounterOhiohealth Arthur G.[facility]. [facility]12-12-2022 Miscellaneous Notes* Telephone Encounter - Arely Baxter LPN - 04/26/2022 4:18 PM EST Patient sent in information via [employer] on device he is requesting. Did look up information on device but need to clarify how long each device is good for. Arely Baxter LPN documented in this encounterOhiohealth Arthur [facility]12-12-2022 Miscellaneous Notes* Telephone Encounter - Arely Baxter LPN - 04/26/2022 3:12 PM EST Called patient. Verified name and date of . Patient described catheter that he would like. Uncertain of name or states it is not a condom catheter. Patient advised to send information via [employer] once he has details. Arely Baxter LPN documented in this encounterOhiohealth Arthur [facility]12-08-2022 History of Present illness Narrative* Arely Carreno RN - 04/22/2022 11:21 AM EST Spoke to patient regarding questionnaires. Explained that the questionnaires are only available for 2 weeks and will after the 2 week wes. Notified him to expect another one in the new year for QoL follow up. documented in this encounterOhiohealth Arthur G.[facility]. [facility]12-02-2022 Miscellaneous Notes* Telephone Encounter - Ambar Jimenez - 04/16/2022 12:10 PM EST Patient will hop picker order after 2:00 pm today 04/16/23. * Telephone Encounter - Nancy Lizama - 04/16/2022 11:52 AM EST Order was filled and printed. Please have provider sign and call pt when order is available for him to hop picker. [phone] Nancy Lizama * Telephone Encounter - Nancy Lizama - 04/14/2022 12:42 PM EST Pt called back. He just needs a written order for the external catheters [place]. Signed written order with diagnosis. He is going to submit himself and his insurance will reimburse. Please call pt when order is available for him to hop picker. [phone] Nancy Dosses * Telephone Encounter - Nancy Lizama - 04/14/2022 11:52 AM EST Pt calling back. He has not had any luck in finding a DME company. Suggested he try [facility] to see if they might [...] Arely Baxter LPN documented in this encounterOhiohealth Arthur G.[facility]. [facility]11-22-2022 History of Present illness Narrative* Arielle Stanton Research Coordinator - 04/06/2022 3:08 PM EST QOL Call Tracking Documentation Follow-Up Type: Phone Call Call Attempt: 1st Attempt Call Status: Left Message documented in this encounterOhiohealth Arthur G.[facility]. [facility] Center10-25-2022 History of Present illness Narrative* Rubén Alves PA-C - 03/09/2022 1:16 PM EDT Images from the original note were not included. [facility] [...] 03/16/2016 Dr. Wilkerson CARDIOVERSION N/A 09/19/2020 [facility] PAST SURGICAL HISTORY OF 05/16/1955 had [...] and Family: Three times a week Attends [employer] Services: More than 4 times per year [...] Appointment with Rubén. documented in this encounterOhiohealth Arthur G.[facility]10-20-2022 History of Present illness Narrative* Marie Beavers MD - 03/04/2022 9:39 PM EDT [facility] [place] PROGRESS NOTE SERVICE DATE: March 04, 2022 [...] risk prostate cancer. 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 More emergently, however, he needed a CABG, so started with ADT alone prior todefinitive treatment with radical prostatectomy in November 2021, with [id number] disease. Given that he had gotten ADT [...] 11/19/2021 7.38 7.35 - 7.45 Final Specific [place], Ur Date Value Ref Range Status 11/17/2021 [...] prostate cancer 76 y.o. M with resected [id number] prostate cancer here for follow-up. We had [...] which included preparing to see the patient, [id number] patient care, completing clinical documentation, obtaining and/or reviewing separately obtained history, counseling and educating the patient/family/caregiver, and ordering medications, tests, or procedures. Marie Beavers MD Associate Staff, Genitourinary Medical Oncology March 04, 2022 9:39 PM cc: Marie Rider MD documented in this encounterOhiohealth Arthur G.[facility]. [facility]09-13-2022 History of Present illness Narrative* Tracy Brigitte Salcido [facility] Health Navigator - 01/26/2022 12:43 PM EDT [...] this appointment? N/A Reason for Outreach Medical [facility] Diabetes Management Payer: Payor: [employer] / Plan: [email or web address] HMO / Product Type: HMO / Care [...] to Practice: Yes Navigation Signature: Tracy Salcido [facility] Health Navigator January 26, 2022 12:43 PM documented in this encounterOhiohealth Arthur G.[facility]09-09-2022 History of Present illness Narrative* Bandar Soria DO - 01/22/2022 9:04 AM EDT Images from the original note were not included. [facility] [place] [facility] Department of Cardiovascular Medicine SECTION OF CARDIOVASCULAR IMAGING OUTPATIENT VISIT DATE January 22, 2022 OUTPATIENT VISIT TYPE ESTABLISHED PRIMARY CARE PHYSICIAN: Wes Rider [address] [place] [address] REFERRING PHYSICIAN: Bandar Soria [address] [facility] [address] CHIEF COMPLAINT: Follow up HISTORY OF PRESENT [...] 03/16/2016 Dr. Wilkerson CARDIOVERSION N/A 09/19/2020 [facility] PAST SURGICAL HISTORY OF 05/16/1955 had [...] of prostatectomy CONTACT INFORMATION: Bandar Soria DO, [facility], IS[facility] Temple and Sofia Campaed Chair of Cardiovascular Imaging Director, Echocardiography Laboratory [facility] Department of Cardiovascular Medicine [facility] [place] [facility] Desk [place] [address] Office - [phone] extension [phone] Office Appointments: [phone] extension [phone] documented in this encounterOhiohealth Arthur G.[facility]08-19-2022 Miscellaneous Notes* Telephone Encounter - Bandar [...] Damon for FYI. documented in this encounterOhiohealth Arthur G.[facility]. [facility] Center08-19-2022 History of Present illness Narrative* Debbie Morrow APRN.REALTIME COURT REPORTER - 01/01/2022 8:30 AM EDT VIRTUAL VISIT PROGRESS NOTE This is a virtual visit using NewRiver video visit. It required patient-provider interaction for [...] 03/16/2016 Dr. Wilkerson CARDIOVERSION N/A 09/19/2020 [facility] PAST SURGICAL HISTORY OF 05/16/1955 had [...] with Dr. Beavers -Follow up with Dr. eNlson RINCON. Discussed with Dr. Damon. CC: Dr. Marie Beavers There are no Patient Instructions on file for this visit. I spent a total of 30 minutes on the date of the service which included preparing to see the patient, [id number] patient care, and completing clinical documentation Debbie Morrow APRN.CNP documented in this encounterOhiohealth Arthur G.H. Bing, Md, Cancer Center08-17-2022 Nurse Note* Dipti Knight RN - 12/30/2021 2:06 PM EDT Additional intake questions: Has the patient had fever, nausea, vomiting, diarrhea, constipation, fatigue for > 1 week? No Does the patient have a decreased appetite? No Does patient want to see a Chaser Helper? No (yes to any of above refer patient to schedulers for dietitian appointment) ) Does patient have any new or increased numbness or tingling of extremities? No Is patient interested in fertility information? No Does patient need any prescription refills? No Does patient have an advanced directive in place? No, Patient referred to Resource Center documented in this encounterOhiohealth Arthur G.H. [facility], Md, Cancer Center08-17-2022 History of Present illness Narrative* Marie Beavers MD - 12/30/2021 2:00 PM EDT Images from the original note were not included. [facility] [place] GENITOURINARY ONCOLOGY NEW PATIENT EVALUATION PATIENT NAME: [...] serum testosterone level. 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 Data Reviewed: Most recent labs and imaging [...] 03/16/2016 Dr. Wilkerson CARDIOVERSION N/A 09/19/2020 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 Hospice/Home Health Aide sections are submitted as follows: A1-A2: Left [...] an outside institution 07/13/2021. On the sagittal dandy tender view, there appears to be lumbar canal [...] atrial fibrillation/atrial flutter, HLD, HTN, NIDDM, and Wilton score 4 +3 = 7 (grade group [...] staff, Dr. Marie Beavers. Aj Briseno MD, [facility] Hematology/Oncology Fellow [facility] [place], [facility] December 28, 2021 [facility] STAFF PHYSICIAN NOTE OF PERSONAL INVOLVEMENT IN [...] for CABG. Ultimately underwent prostatectomy on 11/19/21with [id number] pathology and negative margins. Post-op PSA undetectable [...] - Moderate Marie Beavers MD Beeper Number: [id number] Date of Service: December 30, 2021 Time of Service: 8:54 PM documented in this encounterOhiohealth Arthur G.H. [facility], [facility], Cancer Center08-11-2022 Miscellaneous Notes* Telephone Encounter - Precious Deleon Ma - 12/24/2021 10:58 AM EDT Pt called and notified. Verbalized understanding. Precious Deleno Ma * Telephone Encounter - Wes Rider MD - 12/23/2021 7:13 PM EDT A1c ordered Wes Rider MD * Telephone Encounter - Tyler Hurst RN - 12/23/2021 4:15 PM EDT Pt called in asking if he could get the A1C added to his PSA. Last A1C was done on 09/28/21, so 3 months would be 12/29/21. He sees Oncology at [facility] on 12/30/21. If he got it with his PSA he would end up paying for it because it would be too early. Changed expected date to 12/29/21. documented in this encounterOhiohealth Arthur G.[facility]. [facility], [facility] Center07-27-2022 Miscellaneous Notes* Telephone Encounter - Ginger [...] Ginger Finn RN documented in this encounterOhiohealth Arthur G.H. [facility], [facility], [facility] Center07-20-2022 Miscellaneous Notes* Telephone Encounter - Inés [...] Ginette Mackenzie RN documented in this encounterOhiohealth Arthur G.[facility]. [facility], [facility], [facility] Center07-12-2022 History of Present illness Narrative* Raj [...] 03/16/2016 Dr. Wilkerson CARDIOVERSION N/A 09/19/2020 [facility] PAST SURGICAL HISTORY OF 05/16/1955 had [...] the date of the service which included [id number] patient care, on the [employer] virtual platform. documented in this encounterOhiohealth Arthur G.H. [facility], [facility], [facility] Center07-05-2022 Instructions* Patient Instructions* Kyara Mc PA-C - 11/17/2021 1:12 PM EDT PATIENT PREOPERATIVE INSTRUCTIONS Diamond Damon MD has scheduled you for your procedure at this surgery center: [facility] [place] Scheduling Office: [phone] --[address] [place] [address]. Please read below carefully for your personalized [...] or other anticoagulants without consulting with your medical i d sales or prescribing physician. - Stop Vitamin E, [...] Procedures: - YOU MUST HAVE A RESPONSIBLE CAMPUS COORDINATOR TAKE YOU HOME. A PHP ARCHITECT OR BICYCLE RENTAL CLERK CANNOT BE MADE A RESPONSIBLE CAMPUS COORDINATOR. - We recommend that a responsible person [...] call the Tuesday before. Your surgeon s plan nurse will tell you what time to call the office. - If you have not reached the departmental plan nurse by 5 P.M., call [phone] after 5 P.M. the day before your surgery. Please be aware that emergency situations arise, which may delay or change your surgical time. If this happens, we will notify you as soon as possible and regret any inconvenience. If you already have an Advance Directive, please fax a copy to [phone] or email to for it to be [...] Kyara Mc PA-C documented in this encounterOhiohealth Arthur G.H. [facility], [facility], Cancer Center07-05-2022 History and physical note * Kyara Mc PA-C - 11/17/2021 12:50 PM EDT Images from the original note were not included. Surgeon: Diamond Damon MD Type of surgery: ROBOTIC LAPAROSCOPIC RETROPUBIC RADICAL PROSTATECTOMY W/ NERVE SPARING Patient scheduled for surgery on 11/19/21 . Surgery Location: [facility] Diagnosis: Pre-op evaluation (primary encounter diagnosis) Malignant [...] Follows with cardiology locally and EP at [facility]. CAD S/p PCI 2006, 2014, CABG [...] 2021 10:33 AM documented in this encounterOhiohealth Arthur G.H. [facility], Md, Cancer Center07-05-2022 History of Present illness Narrative* Isha Keane APRN.REALTIME COURT REPORTER - 11/17/2021 10:55 AM EDT [facility] PRE-OP NOTE Jermaine Begum is a 76 year old male. Pre-op Date: November 17, 2021 Date of Procedure: 11/19/2021 Procedure/Surgery: RALP Diagnosis: CaP Primary Surgeon: MD Nelson, [facility] Score: n/a There were no vitals taken [...] LABS. Isha Keane APRN.JH documented in this encounterOhiohealth Arthur G.H. [facility], [facility], Cancer Center06-29-2022 Miscellaneous Notes* Telephone Encounter - Sweta Tamez - 11/11/2021 4:18 PM EDT Received outside records - uploaded to ep shared drive Appointment on 11/12/2021 Last appointment with this provider Visit date not found Last OV in this dept Visit date not found Sweta Sinha documented in this encounterOhiohealth Arthur G.[facility]. [facility], [facility], Cancer Center06-29-2022 Miscellaneous Notes* Telephone Encounter - Manny [...] to scanned documents documented in this encounterOhiohealth Arthur G.H. [facility], [facility], Cancer Center06-22-2022 History of Present illness Narrative* Clarke Rodriguez RN - 11/04/2021 1:15 PM EDT TRANSITION CARE MANAGEMENT (TCM) FOLLOW-UP NOTE Provider Action/FYI: Spoke to patient. Pt is doing well. Taste is off. Appetite is decreased. Pt's last weight was 209 Lbs Pt states he spoke with his medical i d sales re: above issues Patient identified by name and date of : YES Spoke to patient Summary: Pt discharged from [facility] on 10/06/21. Admitted for: Coronary artery disease involving [place] coronary artery of [place] heart without angina pectoris Operations during Hospitalization: Day of Surgery:09/30/2021 S/P SURGERY: CABG x 3 (MANTILLA- LAD, SVG- OM1, SVG- PDA), Biatrial Maze procedure (RF with cryo), SUSHMA appendage clip (35 mm Geoint Analyst plan for next outreach: No further follow up needed at this time Signature Clarke Rodriguez RN November 04, 2021 documented in this encounterOhiohealth Arthur G.H. [facility], Md, Cancer Center06-17-2022 Miscellaneous Notes* Telephone Encounter - Cesilia Arguello RN - 10/30/2021 11:32 AM EDT [facility] Contact Center Inbound Phone Encounter DATE of SERVICE: 10/30/2021 TIME of SERVICE: 11:33 AM Status: Non-urgent, needs attention Service/Provider: Cardiac Surgery Augusta MossD. Reason for call: Care Coordination Contact information: Cirilo Begum [phone]. Resolution: Sent to [facility] Comments: Cirilo Begum called the [facility] post-discharge line to ask that Colin call his local cardiologists PAGE MAKEUP SYSTEM OPERATOR, Lele Hanley, at [phone] at [facility] to discuss the next steps regarding his [...] Resolution 11:33 AM documented in this encounterOhiohealth Arthur G.H. [facility], Md, Cancer Center06-12-2022 History of Present illness Narrative* Clarke [...] 11/17/2021 11:00 AM ISHA KEANE Q Bldg [phone] 11/17/2021 12:15 PM ADMIT INTERVIEW A12 PSSC A Bldg 11/17/2021 12:50 PM PACC MAIN 3 Mn A Bldg [phone] 11/17/2021 1:30 PM LAB A15 MAIN Mn A Bldg [phone] 11/17/2021 2:15 PM LAB COVID MN P BLDG Brandon P Bldg Patient identified by name and date of : YES Spoke to patient Summary: Pt discharged from [facility] on 10/06/21. Admitted for: Coronary artery disease involving [place] coronary artery of [place] heart without angina pectoris Operations during Hospitalization: Day of Surgery:09/30/2021 S/P SURGERY: CABG x 3 (MANTILLA- LAD, SVG- OM1, SVG- PDA), Biatrial Maze procedure (RF with cryo), SUSHMA appendage clip (35 mm Concerns: Weight loss Geoint Analyst plan for next outreach: No further follow up needed at this time Signature Clarke Rodriguez RN October 25, 2021 documented in this encounterOhiohealth Arthur G.H. [facility], Md, Cancer Center06-01-2022 Miscellaneous Notes* Telephone Encounter - Arely Baxter LPN - 10/14/2021 2:08 PM EDT Verified name and date of . Called patient and aware- verbalizes understanding. States he has prostate removal surgery scheduled for November 19, 2021 and will worry about December when Laguna gets here regarding appointments. Arely Baxter LPN * Telephone Encounter - Rubén Alves PA-C - 10/14/2021 10:09 AM EDT He will need 4 month Eligard Injection and PSA in 4 more months [place], [place] documented in this encounterOhiohealth Arthur G.H. [facility], Md, Cancer Center05-31-2022 History of Present illness Narrative* Miri Rivas APRN.JH - 10/13/2021 2:00 PM EDT Images from the original note were not included. [facility] [place] Isac Galeano Department of Cardiovascular Medicine DEPARTMENT [...] 03/16/2016 Dr. Wilkerson CARDIOVERSION N/A 09/19/2020 [facility] PAST SURGICAL HISTORY OF 05/16/1955 had [...] clean, dry and intact Wound: NA SV [place] sites: Location: Right LE, mid and distal, [...] repeat cbc and cmp Follow up with medical i d sales in 4-6 weeks. Call CTS OPD with [...] care Miri Rivas APRN.CNP documented in this encounterOhiohealth Arthur G.H. [facility], Md, Cancer Center05-31-2022 History of Present illness Narrative* RT [...] 2021 2:52 PM documented in this encounterOhiohealth Arthur G.H. [facility], Md, Cancer Center05-27-2022 History of Present illness Narrative* Diamond [...] 5, biopsy (A): Adenocarcinoma of the prostate, Wilton score 3+4=7 (grade group 2), involving three [...] apex, biopsy (G): Adenocarcinoma of the prostate, Wilton score 4+3=7 (grade group 3), involving one [...] 03/16/2016 Dr. Wilkerson CARDIOVERSION N/A 09/19/2020 [facility] PAST SURGICAL HISTORY OF 05/16/1955 had [...] No exam performed- telephone visit. Debbie Morrow APRN.REALTIME COURT REPORTER ASSESSMENT: No diagnosis found. PLAN: preop robotic prostatectomy questions answered There are no Patient Instructions on file for this visit. It was necessary to convert the virtual visit to a telephone encounter due to technical difficulties. Diamond Damon MD documented in this encounterOhiohealth Arthur G.H. [facility], Md, Cancer Center05-25-2022 History of Present illness Narrative* Precious [...] with patient in regards to scheduling his [facility] follow up. Patient went in detail [...] Outreach Community Monitoring Pool Payer: Payor: JUDY [employer] CROSS AND BLUE SHIELD / Plan: ANTHRO [...] Visit Referral Source of Stratification: [facility] Admission Status: Discharged Readmission Risk Score: [...] advised the pt I would have the plan nurse call to schedule a f/u with PCP but I was unsure if they would remove the dressing. Pt verbalizes understanding and denies questions or concerns. Agreeable to additional outreaches as needed. Appointments for Next 60 Days Date Time Provider Location Dept Phone 10/09/2021 3:45 PM DIAMOND DAMON Rose Mn Q Bldg [phone] 10/13/2021 1:15 PM XR CHEST MAIN J1 Mn J Bldg [phone] 10/13/2021 1:30 PM LBJ1-4 MAIN Mn J Bldg [phone] 10/13/2021 1:45 PM EKGJ1-4 MAIN Mn J Bldg [phone] 10/13/2021 2:00 PM MIRI RIVAS Mn J Bldg [phone] 10/20/2021 12:30 PM SURGICAL REGISTRATION 2 Mn J Bldg 11/17/2021 11:00 AM ISHA KEANE Mn Q Bldg [phone] 11/17/2021 12:15 PM ADMIT INTERVIEW A12 PSSC A Bldg 11/17/2021 12:50 PM PACC MAIN 3 Mn A Bldg [phone] 11/17/2021 1:30 PM LAB A15 MAIN Mn A Bldg [phone] 11/17/2021 2:15 PM LAB COVID MN P BLDG Brandon P Bldg SUMMARY: Pt discharged from [facility] on 10/06/21. Admitted for: Coronary artery disease involving [place] coronary artery of [place] heart without angina pectoris Operations during Hospitalization: Day of Surgery:09/30/2021 S/P SURGERY: CABG x 3 (MANTILLA- LAD, SVG- OM1, SVG- PDA), Biatrial Maze procedure (RF with cryo), SUSHMA appendage clip (35 mm) Contact made with patient: Yes Hi my name is Clarke Rodriguez RN and I am calling from the [facility] on behalf of your PCP, Wes [...] like to speak with a social work count team clerk to help give you support for any [...] I will send your request to a plan nurse who will contact and assist you with that appointment. This will give you an opportunity to ask any questions or address any concerns youmay have with your PCP. Inform the patient that if they have any questions or concerns prior to that appointment, to call their PCP's office right away. ACTION TAKEN: Patient desires an appointment - Routed to [facility] [[phone]] for schedulingtelehealth visit (telephonic, virtual visit, or [...] Clarke Rodriguez RN documented in this encounterOhiohealth Arthur G.H. [facility], Md, Cancer Center05-25-2022 Miscellaneous Notes* Telephone Encounter - Ana Gasca RN - 10/07/2021 2:27 PM EDT RN Attempted to reach patient as a follow up call after recent discharge from hospital. Pt prefers call back. Ana Gasca RN documented in this encounterOhiohealth Arthur G.H. [facility], Md, Cancer Center05-25-2022 History of Present illness Narrative* Marium [...] will be made. SUMMARY: -Pt discharged from [facility] on 10/06/21. -Follow up appointment on Defer [...] days. Confirmed fills on medication dispense history. [facility] [address] [place] [id number] - [address] [facility] [phone] Discontinued: 10/06/2021 9:48 AM Lancets lancets [...] fills on medication dispense history. Preferred pharmacy: [facility] [address] [place] [id number] - [facility] - [phone] [place] [id number] e- [facility] [place] [address] - [address] [facility] - [phone] [address] [facility] [address] [facility] [address] [facility] [address] [facility] [address] [facility] [address] Estimated Creatinine Clearance: 68.5 mL/min (based on [...] Date(s) Administered COVID-19 vaccine, age 12+ yr ([employer] - PURPLE TOP) 06/17/2020 07/08/2020 04/06/2021 DT(PEDIATRIC) 02/04/2003 Influenza Seasonal - High Dose - Age 65+ 05/15/2018 Pneumococcal-13 Vac Conjugate 05/15/2018 Pneumovax 03/20/2013 TD Adult 07/26/2013 Additional follow up: Appointments for Next 60 Days Date Time Provider Location Dept Phone 10/09/2021 3:45 PM DIAMOND DAMON Mn Q Bldg [phone] 10/13/2021 1:15 PM XR CHEST MAIN J1 Mn J Bldg [phone] 10/13/2021 1:30 PM LBJ1-4 MAIN Mn J Bldg [phone] 10/13/2021 1:45 PM EKGJ1-4 MAIN Mn J Bldg [phone] 10/13/2021 2:00 PM EVELYN REHANAKEVIN Mn J Bldg [phone] 10/20/2021 12:30 PM SURGICAL REGISTRATION 2 Mn J Bldg 11/17/2021 11:00 AM BRUCEISHA Mn Q Bldg [phone] 11/17/2021 12:15 PM ADMIT INTERVIEW A12 PSSC A Bldg 11/17/2021 12:50 PM PACC MAIN 3 Mn A Bldg [phone] 11/17/2021 1:30 PM LAB A15 MAIN Mn A Bldg [phone] 11/17/2021 2:15 PM LAB COVID MN P BLDG Brandon P Bldg Interventions Made: None Pharmacist Recommendations Made None Care Coordination: None at this time Time spent on patient: 15-30 minutes Marium Marrero RPh October 07, 2021 9:23 AM documented in this encounterOhiohealth Arthur G.H. [facility], [facility], [facility] Center05-19-2022 History of Past illness Narrative* Problem [...] atrial fibrillation Coronary artery disease invo lving [place] coronary artery of [place] heart without angina pectoris 08/27/2021 09/30/2021 documented as of this encounter (statuses as of 10/07/2021) [facility]05-19-2022 History of Past illness Narrative* Problem [...] atrial fibrillation Coronary artery disease invo lving [place] coronary artery of [place] heart without angina pectoris 08/27/2021 09/30/2021 documented as of this encounter (statuses as of 10/13/2021) [facility]-19-20[facility] History of Past illness Narrative* Problem [...] atrial fibrillation Coronary artery disease invo lving [place] coronary artery of [place] heart without angina pectoris 08/27/2021 09/30/2021 documented as of this encounter (statuses as of 10/14/2021) [facility]-20[facility] History of Past illness Narrative* Problem [...] atrial fibrillation Coronary artery disease invo lving [place] coronary artery of [place] heart without angina pectoris 08/27/2021 09/30/2021 documented as of this encounter (statuses as of 10/14/2021) [facility]-19-20[facility] History of Past illness Narrative* Problem [...] atrial fibrillation Coronary artery disease invo lving [place] coronary artery of [place] heart without angina pectoris 08/27/2021 09/30/2021 documented as of this encounter (statuses as of 10/15/2021) [facility]-20[facility] History of Past illness Narrative* Problem [...] atrial fibrillation Coronary artery disease invo lving [place] coronary artery of [place] heart without angina pectoris 08/27/2021 09/30/2021 documented as of this encounter (statuses as of 10/25/2021) [facility] History of Past illness Narrative* Problem [...] atrial fibrillation Coronary artery disease invo lving [place] coronary artery of [place] heart without angina pectoris 08/27/2021 09/30/2021 documented as of this encounter (statuses as of 10/30/2021) [facility] History of Past illness Narrative* Problem [...] atrial fibrillation Coronary artery disease invo lving [place] coronary artery of [place] heart without angina pectoris 08/27/2021 09/30/2021 documented as of this encounter (statuses as of 11/04/2021) [facility] History of Past illness Narrative* Problem [...] atrial fibrillation Coronary artery disease invo lving [place] coronary artery of [place] heart without angina pectoris 08/27/2021 09/30/2021 documented as of this encounter (statuses as of 11/11/2021) [facility] History of Past illness Narrative* Problem [...] atrial fibrillation Coronary artery disease invo lving [place] coronary artery of [place] heart without angina pectoris 08/27/2021 09/30/2021 documented as of this encounter (statuses as of 11/11/2021) [facility] History of Past illness Narrative* Problem [...] atrial fibrillation Coronary artery disease invo lving [place] coronary artery of [place] heart without angina pectoris 08/27/2021 09/30/2021 documented as of this encounter (statuses as of 11/17/2021) [facility] History of Past illness Narrative* Problem [...] atrial fibrillation Coronary artery disease invo lving [place] coronary artery of [place] heart without angina pectoris 08/27/2021 09/30/2021 documented as of this encounter (statuses as of 11/17/2021) [facility] History of Past illness Narrative* Problem [...] atrial fibrillation Coronary artery disease invo lving [place] coronary artery of [place] heart without angina pectoris 08/27/2021 09/30/2021 documented as of this encounter (statuses as of 11/20/2021) [facility] History of Past illness Narrative* Problem [...] atrial fibrillation Coronary artery disease invo lving [place] coronary artery of [place] heart without angina pectoris 08/27/2021 09/30/2021 documented as of this encounter (statuses as of 11/25/2021) [facility] History of Past illness Narrative* Problem [...] atrial fibrillation Coronary artery disease invo lving [place] coronary artery of [place] heart without angina pectoris 08/27/2021 09/30/2021 documented as of this encounter (statuses as of 11/25/2021) [facility] of Past illness Narrative* Problem [...] atrial fibrillation Coronary artery disease invo lving [place] coronary artery of [place] heart without angina pectoris 08/27/2021 09/30/2021 documented as of this encounter (statuses as of 11/27/2021) [facility] of Past illness Narrative* Problem [...] atrial fibrillation Coronary artery disease invo lving [place] coronary artery of [place] heart without angina pectoris 08/27/2021 09/30/2021 documented as of this encounter (statuses as of 12/02/2021) [facility] of Past illness Narrative* Problem [...] atrial fibrillation Coronary artery disease invo lving [place] coronary artery of [place] heart without angina pectoris 08/27/2021 09/30/2021 documented as of this encounter (statuses as of 12/02/2021) [facility] of Past illness Narrative* Problem [...] atrial fibrillation Coronary artery disease invo lving [place] coronary artery of [place] heart without angina pectoris 08/27/2021 09/30/2021 documented as of this encounter (statuses as of 12/09/2021) [facility] of Past illness Narrative* Problem [...] atrial fibrillation Coronary artery disease invo lving [place] coronary artery of [place] heart without angina pectoris 08/27/2021 09/30/2021 documented as of this encounter (statuses as of 12/24/2021) [facility] of Past illness Narrative* Problem [...] atrial fibrillation Coronary artery disease [place] coronary [place] heart without angina pectoris 08/27/2021 09/30/2021 documented as of this encounter (statuses as of 12/31/2021) [facility] History of Past illness Narrative* Problem [...] atrial fibrillation Coronary artery disease [place]ving [place] coronary [place] heart without angina pectoris 08/27/2021 09/30/2021 documented as of this encounter (statuses as of 01/01/2022) [facility] History of Past illness Narrative* Problem [...] atrial fibrillation Coronary artery disease invo [place]ving [place] coronary artery [place] heart without angina pectoris 08/27/2021 09/30/2021 documented as of this encounter (statuses as of 01/01/2022) [facility] History of Past illness Narrative* Problem [...] atrial fibrillation Coronary artery disease [place]ving [place] coronary [place] heart without angina pectoris 08/27/2021 09/30/2021 documented as of this encounter (statuses as of 01/22/2022) [facility] History of Past illness Narrative* Problem [...] atrial fibrillation Coronary artery disease [place]ving [place] coronary artery [place] heart without angina pectoris 08/27/2021 09/30/2021 documented as of this encounter (statuses as of 01/26/2022) [facility] History of Past illness Narrative* Problem [...] atrial fibrillation Coronary artery disease [place]ving [place] coronary artery [place] heart without angina pectoris 08/27/2021 09/30/2021 documented as of this encounter (statuses as of 02/09/2022) [facility] History of Past illness Narrative* Problem [...] atrial fibrillation Coronary artery disease [place]ving [place] coronary [place] heart without angina pectoris 08/27/2021 09/30/2021 documented as of this encounter (statuses as of 03/05/2022) [facility] History of Past illness Narrative* Problem [...] atrial fibrillation Coronary artery disease [place] coronary artery [place] heart without angina pectoris 08/27/2021 09/30/2021 documented as of this encounter (statuses as of 03/09/2022) [facility] History of Past illness Narrative* Problem [...] atrial fibrillation Coronary artery disease [place]ving [place] coronary [place] heart without angina pectoris 08/27/2021 09/30/2021 documented as of this encounter (statuses as of 04/06/2022) [facility] History of Past illness Narrative* Problem [...] atrial fibrillation Coronary artery disease [place] coronary artery [place] heart without angina pectoris 08/27/2021 09/30/2021 documented as of this encounter (statuses as of 04/16/2022) [facility] History of Past illness Narrative* Problem [...] atrial fibrillation Coronary artery disease [place] coronary [place] heart without angina pectoris 08/27/2021 09/30/2021 documented as of this encounter (statuses as of 04/22/2022) [facility] History of Past illness Narrative* Problem [...] atrial fibrillation Coronary artery disease [place] coronary [place] heart without angina pectoris 08/27/2021 09/30/2021 documented as of this encounter (statuses as of 04/26/2022) 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 History of Past illness Narrative* Problem [...] atrial fibrillation Coronary artery disease [place] coronary artery [place] heart without angina pectoris 08/27/2021 09/30/2021 documented as of this encounter (statuses as of 05/31/2022) [facility] History of Past illness Narrative* Problem [...] atrial fibrillation Coronary artery disease [place]ving [place] coronary artery [place] heart without angina pectoris 08/27/2021 09/30/2021 documented as of this encounter (statuses as of 06/04/2022) [facility] History of Past illness Narrative* Problem [...] atrial fibrillation Coronary artery disease [place] coronary artery [place] heart without angina pectoris 08/27/2021 09/30/2021 documented as of this encounter (statuses as of 06/04/2022) [facility] History of Past illness Narrative* Problem [...] atrial fibrillation Coronary artery disease [place]ving [place] coronary artery [place] heart without angina pectoris 08/27/2021 09/30/2021 documented as of this encounter (statuses as of 06/05/2022) [facility] History of Past illness Narrative* Problem [...] atrial fibrillation Coronary artery disease [place] coronary artery [place] heart without angina pectoris 08/27/2021 09/30/2021 documented as of this encounter (statuses as of 06/10/2022) [facility] History of Past illness Narrative* Problem [...] atrial fibrillation Coronary artery disease invo [place]ving [place] coronary artery [place] heart without angina pectoris 08/27/2021 09/30/2021 documented as of this encounter (statuses as of 06/12/2022) [facility] History of Past illness Narrative* Problem [...] atrial fibrillation Coronary artery disease invo [place]ving [place] coronary artery [place] heart without angina pectoris 08/27/2021 09/30/2021 documented as of this encounter (statuses as of 08/03/2022) [facility] History of Past illness Narrative* Problem [...] atrial fibrillation Coronary artery disease [place] coronary artery [place] heart without angina pectoris 08/27/2021 09/30/2021 documented as of this encounter (statuses as of 08/03/2022) [facility] History of Past illness Narrative* Problem [...] atrial fibrillation Coronary artery disease [place] coronary artery [place] heart without angina pectoris 08/27/2021 09/30/2021 documented as of this encounter (statuses as of 08/10/2022) [facility] History of Past illness Narrative* Problem [...] atrial fibrillation Coronary artery disease [place] coronary artery [place] heart without angina pectoris 08/27/2021 09/30/2021 documented as of this encounter (statuses as of 08/14/2022) [facility] History of Past illness Narrative* Problem [...] atrial fibrillation Coronary artery disease [place] coronary artery [place] heart without angina pectoris 08/27/2021 09/30/2021 documented as of this encounter (statuses as of 08/17/2022) [facility] History of Past illness Narrative* Problem [...] atrial fibrillation Coronary artery disease [place] coronary artery [place] heart without angina pectoris 08/27/2021 09/30/2021 documented as of this encounter (statuses as of 08/18/2022) [facility] History of Past illness Narrative* Problem [...] atrial fibrillation Coronary artery disease [place] coronary artery [place] heart without angina pectoris 08/27/2021 09/30/2021 documented as of this encounter (statuses as of 08/18/2022) [facility] History of Past illness Narrative* Problem [...] atrial fibrillation Coronary artery disease [place] coronary artery [place] heart without angina pectoris 08/27/2021 09/30/2021 documented as of this encounter (statuses as of 08/24/2022) [facility] History of Past illness Narrative* Problem [...] atrial fibrillation Coronary artery disease [place] coronary artery [place] heart without angina pectoris 08/27/2021 09/30/2021 documented as of this encounter (statuses as of 08/24/2022) [facility] History of Past illness Narrative* Problem [...] atrial fibrillation Coronary artery disease [place] coronary artery [place] heart without angina pectoris 08/27/2021 09/30/2021 documented as of this encounter (statuses as of 08/25/2022) [facility] History of Past illness Narrative* Problem [...] atrial fibrillation Coronary artery disease [place] coronary artery [place] heart without angina pectoris 08/27/2021 09/30/2021 documented as of this encounter (statuses as of 08/26/2022) [facility] History of Past illness Narrative* Problem [...] atrial fibrillation Coronary artery disease [place]ving [place] coronary artery [place] heart without angina pectoris 08/27/2021 09/30/2021 documented as of this encounter (statuses as of 08/27/2022) [facility] History of Past illness Narrative* Problem [...] atrial fibrillation Coronary artery disease [place] coronary artery [place] heart without angina pectoris 08/27/2021 09/30/2021 documented as of this encounter (statuses as of 08/28/2022) [facility] History of Past illness Narrative* Problem [...] atrial fibrillation Coronary artery disease [place] coronary artery [place] heart without angina pectoris 08/27/2021 09/30/2021 documented as of this encounter (statuses as of 09/02/2022) [facility] History of Past illness Narrative* Problem [...] atrial fibrillation Coronary artery disease [place] coronary artery [place] heart without angina pectoris 08/27/2021 09/30/2021 documented as of this encounter (statuses as of 09/03/2022) [facility] History of Past illness Narrative* Problem [...] atrial fibrillation Coronary artery disease [place] coronary artery [place] heart without angina pectoris 08/27/2021 09/30/2021 documented as of this encounter (statuses as of 09/07/2022) [facility] History of Past illness Narrative* Problem [...] atrial fibrillation Coronary artery disease [place] coronary artery [place] heart without angina pectoris 08/27/2021 09/30/2021 documented as of this encounter (statuses as of 09/09/2022) [facility] History of Past illness Narrative* Problem [...] atrial fibrillation Coronary artery disease [place] coronary artery [place] heart without angina pectoris 08/27/2021 09/30/2021 documented as of this encounter (statuses as of 09/10/2022) [facility] History of Past illness Narrative* Problem [...] atrial fibrillation Coronary artery disease [place] coronary artery [place] heart without angina pectoris 08/27/2021 09/30/2021 documented as of this encounter (statuses as of 09/13/2022) [facility] History of Past illness Narrative* Problem [...] atrial fibrillation Coronary artery disease [place] coronary artery [place] heart without angina pectoris 08/27/2021 09/30/2021 documented as of this encounter (statuses as of 09/14/2022) [facility] History of Past illness Narrative* Problem [...] atrial fibrillation Coronary artery disease [place] coronary artery of [place] heart without angina pectoris 08/27/2021 09/30/2021 documented as of this encounter (statuses as of 09/15/2022) [facility] History of Past illness Narrative* Problem [...] atrial fibrillation Coronary artery disease [place]ving [place] coronary artery of [place] heart without angina pectoris 08/27/2021 09/30/2021 documented as of this encounter (statuses as of 09/21/2022) [facility] History of Past illness Narrative* Problem [...] atrial fibrillation Coronary artery disease [place]ving [place] coronary artery [place] heart without angina pectoris 08/27/2021 09/30/2021 documented as of this encounter (statuses as of 10/12/2022) [facility] History of Past illness Narrative* Problem [...] atrial fibrillation Coronary artery disease [place]ving [place] coronary artery [place] heart without angina pectoris 08/27/2021 09/30/2021 documented as of this encounter (statuses as of 10/13/2022) [facility] History of Past illness Narrative* Problem [...] atrial fibrillation Coronary artery disease [place]ving [place] coronary artery [place] heart without angina pectoris 08/27/2021 09/30/2021 documented as of this encounter (statuses as of 10/16/2022) [facility] History of Past illness Narrative* Problem [...] atrial fibrillation Coronary artery disease [place]ving [place] coronary artery [place] heart without angina pectoris 08/27/2021 09/30/2021 documented as of this encounter (statuses as of 10/18/2022) [facility] History of Past illness Narrative* Problem [...] atrial fibrillation Coronary artery disease [place]ving [place] coronary artery [place] heart without angina pectoris 08/27/2021 09/30/2021 documented as of this encounter (statuses as of 11/15/2022) 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 History of Past illness Narrative* Problem [...] atrial fibrillation Coronary artery disease [place]ving [place] coronary artery [place] heart without angina pectoris 08/27/2021 09/30/2021 documented as of this encounter (statuses as of 04/05/2023) [facility] Evaluation note* Diagnosis Onset Date Resolution Status H/O coronary artery bypass surgery September 30, 2021 acute Prostate cancer acute Atherosclerosis of coronary artery of [place] heart without angina pectoris chronic Essential hypertension chron ic Hyperlipidemia chronic Paroxysmal atrial fibrillation chronic History of coronary artery stent placement October 18, 015 resolved [facility] Work Phone: 1(535) 785-296105-18-2022 Evaluation note* Diagnosis Onset Date Resolution Status H/O coronary artery bypass surgery September 30, 2021 acute Atherosclerosis of coronary artery of [place] heart without angina pectoris chronic Essential hypertension chron ic Hyperlipidemia chronic Paroxysmal atrial fibrillation chronic Prostate cancer chronic History of coronary artery stent placement October 18, 2 015 resolved [facility] Work Phone: 1(761) 673-925205-18-2022 Evaluation note* Diagnosis Onset Date Resolution Status H/O coronary artery bypass surgery September 30, 2021 acute Essential hypertension chron ic Hyperlipidemia chronic Paroxysmal atrial fibrillation chronic History of coronary artery stent placement October 18, 015 resolved [facility] Work Phone: 1(882) 623-154905-17-2022 History of Present illness Narrative* Liz Allen APRN.REALTIME COURT REPORTER - 09/29/2021 11:14 AM EDT See epic documented in this encounterOhiohealth [facility] History of Present illness Narrative* Liz [...] completed, topic: bactroban documented in this encounterOhiohealth [facility] History of Present illness Narrative* Liz Allen APRN.CNP - 09/29/2021 10:40 AM EDT Images from the original note were not included. CONSULT HISTORY and PHYSICAL CARDIOTHORACIC SURGERY Consulting Service: Cardiothoracic Surgery Requesting Provider: [facility] Pad Assembler, Marie Bautista M.D.on 08/26/2021. Opinion/advice regarding: Pre-Op [...] space. to Karen. The couple reside in [place], [place]. They have a daughter Jovanna and [...] 03/16/2016 Dr. Wilkerson CARDIOVERSION N/A 09/19/2020 [facility] PAST SURGICAL HISTORY OF 05/16/1955 had [...] 09/28/2021 HDL Cholesterol 33 09/28/2021 LDL Chol, [place] 69 09/28/2021 DATA: I have personally reviewed [...] Service: 11:04 AM documented in this encounterOhiohealth [facility] History of Present illness Narrative* Elle [...] and prostate ca (surgery scheduled for 11/2021). [facility] 08/2021 w/ severe disease to LAD, D1, [...] Abnormal Stress Test Coronary Artery Disease Involving [place] Coronary Artery of [place] Heart Without Angina Pectoris Presence of Drug [...] 03/16/2016 Dr. Wilkerson CARDIOVERSION N/A 09/19/2020 [facility] PAST SURGICAL HISTORY OF 05/16/1955 had [...] ECG Confirmed by MD ESTELLA, PhD, SHAHEEN ([id number]) on 09/10/2021 8:08:05 PM Stress test 08/2021 [facility] 08/2021 Impression: -Right dominant system -Severe obstructive [...] AM Pager/Contact #: documented in this encounterOhiohealth [facility] History of Present illness Narrative* Mauricio Riley MD - 09/29/2021 8:30 AM EDT Thoracic and Cardiovascular Surgery [facility] SURGICAL CONSULT AND INFORMED CONSENT CHART COPY DO NOT DISCARD Patient Type: New Visit to determine Surgery: Yes PCP: Wes Rider [address] [place] [address] Referring Physician:: Mauricio Riley [id number] [facility] [address] HPI: Mr. Jermaine Begum is a 76 [...] Mauricio Riley MD documented in this encounterOhiohealth [facility] History of Present illness Narrative* Ulises Herreraby, MARQUEZ - 09/28/2021 1:30 PM EDT PULM FUNCTION SMARTBLOCK: Provider: Mauricio Riley MD Spirometry: 1 DLCO: 1 System: [id number] documented in this encounterOhiohealth [facility] History of Present illness Narrative* RT Romsery(R) - 09/23/2021 9:20 AM EDT Radiology Service [...] TIME: 10:05 AM documented in this encounterOhiohealth [facility] Miscellaneous Notes* Telephone Encounter - Chad [...] to pt n/a documented in this encounterOhiohealth [facility]04[facility]2022 Miscellaneous Notes* Telephone Encounter - Milka [...] it up that is wrong. [place], [place] * Telephone Encounter - Milka Waters RN - 09/08/2021 10:14 AM EDT Pt called in states he tried to hop picker his medication Leuprolide inj at [facility] but pharmacy says they did not receive a request. This RN called [facility] pharmacy to verify, stated it was sent to them 09/01/21. Abena at [facility] pharmacy states they do not have any requests for pt. States it needs sharon resent. documented in this encounterOhiohealth [facility] Miscellaneous Notes* Telephone Encounter - Bianca Peck - 09/02/2021 5:07 PM EDT inn * Telephone Encounter - Oj Nicolas - 09/02/2021 3:24 PM EDT Please register/advise Thanks documented in this encounterOhiohealth [facility] History of Present illness Narrative* Debbie Morrow APRN.CNP - 09/02/2021 3:30 PM EDT Pre-op visit cancelled (surgery cancelled). documented in this [facility]04-19-2022 Miscellaneous Notes* Telephone Encounter - Debbie [...] Debbie Morrow APRN.CNP documented in this encounterOhiohealth [facility] Miscellaneous Notes* Telephone Encounter - Cordelia [...] Department of CARDIOLOGY. documented in this encounterOhiohealth [facility]-2022 Miscellaneous Notes* Telephone Encounter - Manny [...] last seen 08/26/21 documented in this encounterOhiohealth [facility]04-[facility]-2022 Miscellaneous Notes* Telephone Encounter - Manny [...] the patient. Pt had labs [facility] at [facility]. Pt will have covid test at [place] location. Cath to be on 08/31 documented in this encounterOhiohealth [facility] History of Present illness Narrative* Marie Bautista MD - 08/26/2021 9:22 AM EDT Images from the original note were not included. [facility] [place] [facility] Department of Cardiovascular Medicine SECTION OF INTERVENTIONAL CARDIOLOGY OUTPATIENT VISIT DATE August 26, 2021 OUTPATIENT VISIT TYPE NEW PRIMARY CARE PHYSICIAN: Wes Rider [address] [place] [address] REFERRING PHYSICIAN: Bandar Soria [address] [facility] [id number] CHIEF COMPLAINT: No chief complaint on file. 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 His symptom prior to both PCI was exertional dyspnea. He described it as sucking in for air as I walk.After each PCI he had relief of symptoms. In August of 2020 he was diagnosed with atrial flutter. Again he was experiencing exertional dyspneaas well as palpitations. He had a cardioversion and was shocked x1 back to [facility]. He was started on eliquis and has had no issues since. He was recently diagnosed with prostate cancer and is scheduled for surgery at the end of August. With his cardiac history, he needed cardiac clearance from his medical i d sales. He had an exercise stresstest which was suggestive of ischemia. He still experiences shortness of breath if he is walking at a fast pace. He had an episode of severe chest pain back in June while in [place]. He was out to dinner and he started to experience a sharp pain under his left breast bone that radiated to his back and left shoulder. He called his local medical i d sales and was advised to go to ER. [...] 03/16/2016 Dr. Wilkerson CARDIOVERSION N/A 09/19/2020 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 CONTACT INFORMATION: documented in this encounterOhio[facility] History of Present illness Narrative* Manny Monique - 08/25/2021 5:[address] Bautista documented in this encounterOhiohealth [facility]04-11-2022 Miscellaneous Notes* Telephone Encounter - Tima Murray MD - 08/24/2021 6:51 PM EDT I spoke with Mr. Begum about his upcoming cardiology appt. Takes eliquis for a flutter. Recent Stress test was positive (per report) with local medical i d sales. Pt is scheduled for RALP with Dr. Damon on 09/09. He is having his cardiologiist changed to a [facility] doctor and doesn't have an appointment yet. Discussed that his surgery date remains in place in the event he has a negative cardiac eval preop.He will let us know RUBI when he has an appt scheduled and/or results of cardiac cath. documented in this encounterOhiohealth [facility]04-04-2022 History of Present illness Narrative* Quentin [...] and prostate adenocarcinoma, initial PSA 34.08, biopsy Wilton score 4 + 3 = 7 (grade [...] prostate biopsy on 06/23/2021 revealed prostate cancer, Wilton 7 (4+3), GG3, 5 of 9 cores [...] 5, biopsy (A): Adenocarcinoma of the prostate, Wilton score 3+4=7 (grade group 2), involving three [...] apex, biopsy (G): Adenocarcinoma of the prostate, Wilton score 4+3=7 (grade group 3), involving one [...] 03/16/2016 Dr. Wilkerson CARDIOVERSION N/A 09/19/2020 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 Mi. ORDERS: 1. No orders entered today 2. Follow-up: As needed Signed by: Quentin Hampton MD Medical Decision Making: Problems: High: Illness/injury w/ threat to life/body function Data: Unique test result(s) reviewed: 2 Risk: High: High risk from testing/treatment Medical Decision Making Level: 5 - High cc: Wes Rider MD [address] [place] [address] Diamond Damon MD [address] [facility] [id number] documented in this encounterOhiohealth [facility]06-[facility] Evaluation note* Diagnosis Onset Date Resolution Status Preop cardiovascular exam ac solomon Essential hypertension chron ic Hyperlipidemia chronic Paroxysmal atrial fibrillation chronic History of coronary artery stent placement October 18, 015 resolved [facility] Work Phone: Evaluation + Plan note No data available for this section [facility] Evaluation note* Diagnosis Prostate cancer (HCC) Malignant neoplasm of prostate Abnormal findings on diagnostic imaging of other parts of musculoskeletal system Malignant neoplasm of prostate (HCC) Malignant neoplasm of prostate [facility] [place] [facility]* Diagnosis Essential hypertension, benign- Primary Coronary artery disease involving [place] heart without angina pectoris, unspecified vessel or lesion type Mixed hyperlipidemia Controlled type 2 diabetes mellitus without complication, without long-term current use of insulin (HCC) Malignant neoplasm of prostate (HCC) Malignant neoplasm of prostate documented in this encounter [facility] [place] [facility]* Diagnosis Abnormal stress test- Primary Other nonspecific abnormal cardiovascular system function study Coronary artery disease involving [place] coronary artery of [place] heart without angina pectoris Presence of drug coated stent in left circumflex coronary artery Postsurgical percutaneous transluminal coronary angioplasty status Hyperlipidemia LDL goal <70 Other and unspecified hyperlipidemia Hypertension goal BP (blood pressure) < 140/80 Unspecified essential hypertension Abnormal stress test Other nonspecific abnormal cardiovascular system function study Malignant neoplasm of prostate (HCC) Malignant neoplasm of prostate documented in this encounter [facility] [place] [facility]* Diagnosis Essential hypertension, benign- Primary Abnormal stress test Other nonspecific abnormal cardiovascular system function study Malignant neoplasm of prostate (HCC) Malignant neoplasm of prostate documented in this encounter [facility] [place] [facility]* Diagnosis Prostate cancer (HCC)- Primary Malignant neoplasm of prostate Malignant neoplasm of prostate (HCC) Malignant neoplasm of prostate documented in this encounter [facility] [place] [facility]* Diagnosis APPOINTMENT CANCELLED- Primary documented in this encounter [facility] [place] [facility]* Diagnosis 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 (HCC)- Primary Atrial fibrillation, unspecified type (HCC) Prostate cancer (HCC) Malignant neoplasm of prostate Hyperlipidemia, unspecified hyperlipidemia type Primary hypertension Unspecified essential hypertension Pre-operative cardiovascular examination documented in this encounter 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 [place] [facility]* Diagnosis Pre-operative cardiovascular examination- Primary 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 (HCC) Atrial fibrillation, unspecified type (HCC) Prostate cancer (HCC) Malignant neoplasm of prostate Hyperlipidemia, unspecified hyperlipidemia type Primary hypertension Unspecified essential hypertension 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 (HCC) Atrial fibrillation, unspecified type (HCC) Prostate cancer (HCC) Malignant neoplasm of prostate Hyperlipidemia, unspecified hyperlipidemia type Primary hypertension Unspecified essential hypertension Pre-operative cardiovascular examination documented in this encounter [facility] [place] [facility]* Diagnosis Pre-operative cardiovascular examination- Primary Atrial fibrillation, unspecified type (HCC) 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 (HCC) Prostate cancer (HCC) Malignant neoplasm of prostate Hyperlipidemia, unspecified hyperlipidemia type Primary hypertension Unspecified essential hypertension 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 (HCC) Atrial fibrillation, unspecified type (HCC) Prostate cancer (HCC) Malignant neoplasm of prostate Hyperlipidemia, unspecified hyperlipidemia type Primary hypertension Unspecified essential hypertension Pre-operative cardiovascular examination documented in this encounter [facility] [place] [facility]* Diagnosis Malignant neoplasm of prostate (HCC)- Primary Malignant neoplasm of prostate 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 (HCC) Atrial fibrillation, unspecified type (HCC) Prostate cancer (HCC) Malignant neoplasm of prostate Hyperlipidemia, unspecified hyperlipidemia type Primary hypertension Unspecified essential hypertension Pre-operative cardiovascular examination Malignant neoplasm of prostate (HCC) Malignant neoplasm of prostate documented in this encounter [facility] [place] [facility]* Diagnosis Encounter for preoperative anesthesiology assessment for cardiac surgery- Primary 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 (HCC) Atrial fibrillation, unspecified type (HCC) Prostate cancer (HCC) Malignant neoplasm of prostate Hyperlipidemia, unspecified hyperlipidemia type Primary hypertension Unspecified essential hypertension Pre-operative cardiovascular examination Malignant neoplasm of prostate (HCC) Malignant neoplasm of prostate documented in this encounter [facility] note* Diagnosis Atherosclerosis- Primary Generalized and unspecified atherosclerosis 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 (HCC) Atrial fibrillation, unspecified type (HCC) Prostate cancer (HCC) Malignant neoplasm of prostate Hyperlipidemia, unspecified hyperlipidemia type Primary hypertension Unspecified essential hypertension Pre-operative cardiovascular examination Malignant neoplasm of prostate (HCC) Malignant neoplasm of prostate documented in this encounter [facility] [place] [facility]* Diagnosis Pre-op testing- Primary Preoperative examination, unspecified Discharge planning issues Encounters for unspecified administrative purpose 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 (HCC) Atrial fibrillation, unspecified type (HCC) Prostate cancer (HCC) Malignant neoplasm of prostate Hyperlipidemia, unspecified hyperlipidemia type Primary hypertension Unspecified essential hypertension Pre-operative cardiovascular examination Malignant neoplasm of prostate (HCC) Malignant neoplasm of prostate documented in this encounter [facility] note* Diagnosis Typical atrial flutter (HCC)- Primary Atrial flutter 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 (HCC) Atrial fibrillation, unspecified type (HCC) Prostate cancer (HCC) Malignant neoplasm of prostate Hyperlipidemia, unspecified hyperlipidemia type Primary hypertension Unspecified essential hypertension Pre-operative cardiovascular examination 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 (HCC) Atrial fibrillation, unspecified type (HCC) Prostate cancer (HCC) Malignant neoplasm of prostate Hyperlipidemia, unspecified hyperlipidemia type Primary hypertension Unspecified essential hypertension Pre-operative cardiovascular examination Malignant neoplasm of prostate (HCC) Malignant neoplasm of prostate documented in this encounter [facility] note* Diagnosis S/P CABG (coronary artery bypass graft)- Primary Postsurgical aortocoronary bypass status S/P Maze operation for atrial fibrillation Other postprocedural status Malignant neoplasm of prostate (HCC) Malignant neoplasm of prostate documented in this encounter [facility]* Diagnosis Surgery follow-up Follow-up examination, following unspecified surgery Malignant neoplasm of prostate (HCC) Malignant neoplasm of prostate documented in this encounter [facility] [place] [facility]* Diagnosis Sinus bradycardia- Primary Other specified cardiac dysrhythmias Malignant neoplasm of prostate (HCC) Malignant neoplasm of prostate [facility] [place] [facility]* Diagnosis Malignant neoplasm of prostate (HCC)- Primary Malignant neoplasm of prostate Malignant neoplasm of prostate (HCC) Malignant neoplasm of prostate documented in this encounter [facility] [place] [facility]* Diagnosis Pre-op evaluation- Primary Preoperative examination, unspecified Malignant neoplasm of prostate (HCC) Malignant neoplasm of prostate Malignant neoplasm of prostate (HCC) Malignant neoplasm of prostate documented in this encounter [facility] [place] [facility]* Diagnosis Renal calculi Calculus of kidney documented in this encounter [facility] [place] [facility]* Diagnosis Prostate cancer (HCC)- Primary Malignant neoplasm of prostate documented in this encounter [facility] [place] [facility]* Diagnosis Prostate cancer (HCC)- Primary Malignant neoplasm of prostate documented in this encounter [facility] [place] [facility]* Diagnosis Screening for genitourinary condition Screening for other and unspecified genitourinary condition documented in this encounter [facility] [place] [facility]* Diagnosis Malignant neoplasm of prostate (HCC)- Primary Malignant neoplasm of prostate [facility] [place] [facility]* Diagnosis Controlled type 2 diabetes mellitus without complication, without long-term current use of insulin (HCC)- Primary [facility] [place] [facility]* Diagnosis Prostate CA (HCC)- Primary Malignant neoplasm of prostate [facility] [place] [facility]* Diagnosis Prostate cancer (HCC)- Primary Malignant neoplasm of prostate RICARDO (stress urinary incontinence), male Stress incontinence, male Erectile dysfunction following radical prostatectomy Impotence of organic origin documented in this encounter [facility] [place] [facility]* Diagnosis Abnormal stress test- Primary Other nonspecific abnormal cardiovascular system function study Coronary artery disease involving [place] coronary artery of [place] heart without angina pectoris Elevated prostate specific antigen (PSA) Hypertension goal BP (blood pressure) < 140/80 Unspecified essential hypertension Prostate cancer (HCC) Malignant neoplasm of prostate Elevated PSA Elevated prostate specific antigen (PSA) Mixed hyperlipidemia documented in this encounter [facility] [place] [facility]* Diagnosis Prostate cancer (HCC)- Primary Malignant neoplasm of prostate [facility]* Diagnosis Urinary incontinence, unspecified type- Primary Malignant neoplasm of prostate (HCC) Malignant neoplasm of prostate Erectile dysfunction following radical prostatectomy Impotence of organic origin documented in this encounter [facility] note* Diagnosis Urinary incontinence, unspecified type- Primary Prostate cancer (HCC) Malignant neoplasm of prostate [facility] [place] [facility]* Diagnosis Urinary incontinence, unspecified type- Primary documented in this encounter [facility] [place] [facility]* Diagnosis Controlled type 2 diabetes mellitus without complication, without long-term current use of insulin (HCC)- Primary documented in this encounter [facility] [place] [facility]* Diagnosis Controlled type 2 diabetes mellitus without complication, without long-term current use of insulin (HCC)- Primary Essential hypertension, benign Mixed hyperlipidemia Hernia Hernia of unspecified site of abdominal cavity without mention of obstruction or gangrene Prostate cancer (HCC) Malignant neoplasm of prostate Paroxysmal atrial fibrillation (HCC) Atrial fibrillation documented in this encounter [facility] note* Diagnosis Prostate cancer (HCC)- Primary Malignant neoplasm of prostate RICARDO (stress urinary incontinence), male Stress incontinence, male Muscle weakness Muscle weakness (generalized) documented in this encounter [facility] note* Diagnosis Prostate cancer (HCC)- Primary Malignant neoplasm of prostate documented in this encounter [facility] [place] [facility]* Diagnosis Prostate cancer (HCC)- Primary Malignant neoplasm of prostate documented [facility] encounter [facility] [place] [facility]* Diagnosis Prostate cancer (HCC)- Primary Malignant neoplasm of prostate documented in this encounter [facility] [place] [facility]* Diagnosis Prostate cancer (HCC)- Primary Malignant neoplasm of prostate documented in this encounter [facility] [place] [facility]* Diagnosis RICARDO (stress urinary incontinence), male- Primary Stress incontinence, male Prostate cancer (HCC) Malignant neoplasm of prostate [facility] [place] [facility]* Diagnosis RICARDO (stress urinary incontinence), male- Primary Stress incontinence, male Prostate cancer (HCC) Malignant neoplasm of prostate documented in this encounter [facility] [place] [facility]* Diagnosis Prostate cancer (HCC)- Primary Malignant neoplasm of prostate documented in this encounter [facility] [place] [facility]* Diagnosis Prostate cancer (HCC)- Primary Malignant neoplasm of prostate documented in this encounter [facility] [place] [facility]* Diagnosis Malignant neoplasm of prostate (HCC)- Primary Malignant neoplasm of prostate documented in this encounter [facility] note* Diagnosis Prostate cancer (HCC)- Primary Malignant neoplasm of prostate documented in this encounter [facility] note* Diagnosis Controlled type 2 diabetes mellitus without complication, without long-term current use of insulin (HCC) documented in this encounter [facility] note* Diagnosis Prostate cancer (HCC)- Primary Malignant neoplasm of prostate documented in this encounter [facility] note* Diagnosis Prostate cancer (HCC)- Primary Malignant neoplasm of prostate documented in this encounter [facility] note* Diagnosis Prostate cancer (HCC)- Primary Malignant neoplasm of prostate Chronic bronchitis, unspecified chronic bronchitis type (HCC) documented in this encounter [facility] note* Diagnosis Radiotherapy follow-up- Primary Radiotherapy follow-up examination Prostate cancer (HCC) Malignant neoplasm of prostate documented in this encounter [facility] note* Diagnosis Prostate CA (HCC)- Primary Malignant neoplasm of prostate documented in this encounter [facility] note* Diagnosis Prostate cancer (HCC)- Primary Malignant neoplasm of prostate documented in this encounter [facility] note* Diagnosis Onset Date Resolution Status Lumbar radiculopathy acute Spondylolisthesis, lumbar region acute Cervical myelopathy acute Spinal stenosis of lumbar re gion with neurogenic claudication acute Spondylolisthesis, lumbar region acute [facility] Work Phone: Evaluation note* Diagnosis Prostate cancer (HCC)- Primary Malignant neoplasm of prostate documented in this encounter [facility] note* Diagnosis Prostate cancer (HCC) Malignant neoplasm of prostate documented in this encounter [facility] note* Diagnosis Prostate CA (HCC)- Primary Malignant neoplasm of prostate documented in this encounter [facility] noteNo assessment information availableWGeorgetown Behavioral Hospital Work Phone: Evaluation note* Diagnosis Prostate cancer (HCC)- Primary Malignant neoplasm of prostate documented [facility] this encounter [facility] Additional Instructions Please ensure the ice, perform gentle stretching. Please return for any worsening symptomsWGeorgetown Behavioral Hospital Work Phone: Hospital Discharge instructions Additional Instructions Continue your bowel regime including [id number] stool softeners and/or MiraLAX as needed.[facility] Work Phone: Reason for referral (narrative)* Outpatient Procedure (Routine) - Pending Review Specialty Diagnoses / Procedures Referred By Mendoza rene Referred To Contact [facility] Diagnoses Essential hypertension, benign Coronary artery disease involving [place] heart without angina pectoris, unspecified vessel or lesion type Mixed hyperlipidemia Controlled type 2 diabetes mellitus without complication, without long-term current use of insulin (HCC) Procedures ECG COMPLETE ECG ROUTINE ECG W/LEAST 12 LDS W/I&R Marie Bautista MD [address] [place] [address] [place] [address] Referral ID Status Reason Start Date Expiration Date Visits Requested Visits Authorized [id number] Pending Review Auto-Generat ed Referral 08/25/2021 08/25/2022 1 1 [facility] for referral (narrative)* Outpatient Procedure (Routine) - Authorized Specialty Diagnoses / Procedures Referred By Contac t Referred To Contact [facility] Diagnoses Essential hypertension, benign Procedures ECG COMPLETE ECG ROUTINE ECG W/LEAST 12 LDS W/I&R Marie Bautista MD [address] [place] [id number] [address] Referral ID Status Reason Start Date Expiration Date Visits Requested Visits Authorized [id number] Authorized Auto-Generat ed Referral 08/28/2021 08/28/2022 1 1 [facility] for referral (narrative)* Outpatient Procedure (Routine) - Pending Review Specialty Diagnoses / Procedures Referred By Contac t Referred To [facility] Diagnoses 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 (HCC) Atrial fibrillation, unspecified type (HCC) Prostate cancer (HCC) Hyperlipidemia, unspecified hyperlipidemia type Primary hypertension Pre-operative cardiovascular examination Procedures LUNG DIFFUSION CAPACITY (DLCO) DIFFUSING CAPACITY Mauricio Riley MD [address] [place] [address] [facility] [address] [place] [address] Referral ID Status Reason Start Date Expiration Date Visits Requested Visits Authorized [id number] Pending Review Auto-Generat ed Referral 09/14/2021 10/14/2022 1 1 * Outpatient Procedure (Routine) - Pending Review Specialty Diagnoses / Procedures Referred By Contac t Referred To Contact [facility] Diagnoses 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 (HCC) Atrial fibrillation, unspecified type (HCC) Prostate cancer (HCC) Hyperlipidemia, unspecified hyperlipidemia type Primary hypertension Pre-operative cardiovascular examination Procedures SPIROMETRY BASELINE ONLY SPMTRY W/VC EXPIRATORY ROGELIO W/WO MXML VOL VNTJ Mauricio Riley MD [address] [place] [address] [facility] [address] [place] [address] Referral ID Status Reason Start Date Expiration Date Visits Requested Visits Authorized [id number] Pending Review Auto-Generat ed Referral 09/14/2021 10/14/2022 1 1 * Outpatient Procedure (Routine) - Pending Review Specialty Diagnoses / Procedures Referred By Gavinac t Referred To Contact [facility] [place] Diagnoses 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 (HCC) Atrial fibrillation, unspecified type (HCC) Prostate cancer (HCC) Hyperlipidemia, unspecified hyperlipidemia type Primary hypertension Pre-operative cardiovascular examination Procedures ECHO ECHO TTHRC R-T 2D W/WOM-MODE COMPL SPEC&COLR D Mauricio Riley MD [address] [place] [address] [place] [address] Referral ID Status Reason Start Date Expiration Date Visits Requested Visits Authorized [id number] Pending Review Auto-Generat ed Referral 09/14/2021 09/14/2022 1 1 * Consult, Test, Treat (Routine) - Pending Review Specialty Diagnoses / Procedures [facility] Diagnoses 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 (HCC) Atrial fibrillation, unspecified type (HCC) Prostate cancer (HCC) Hyperlipidemia, unspecified hyperlipidemia type Primary hypertension Pre-operative cardiovascular examination Procedures CARDIOTHORACIC PREOP EVALUATION OFFICE/OUTPATIENT NEW HIGH MDM 60-74 MINUTES Mauricio Riley MD [address] [id number] Referral ID Status Reason Start Date Expiration Date Visits Requested Visits Authorized [id number] Pending Review PCP Requested Referral 09/14/2021 09/14/2022 1 1 [facility] for referral (narrative)* Outpatient Procedure (Routine) - Authorized Specialty Diagnoses / Procedures [facility] Diagnoses Sinus bradycardia Procedures ECG COMPLETE ECG ROUTINE ECG W/LEAST 12 LDS W/I&R Shree Ochoa MD [address] [place] [address] [facility] [place] [address] Referral ID Status Reason Start Date Expiration Date Visits Requested Visits Authorized [id number] Authorized Auto-Generat ed Referral 11/11/2021 11/11/2022 1 1 [facility] for referral (narrative)* Diagnostic Procedure Only (Routine) - New Request Specialty Diagnoses / Procedures Referred By [facility] Referred To Contact MOLECULAR & FUNCTIONAL IMAGING Diagnoses Prostate cancer (HCC) Procedures NM PET/CT PROSTATE WHOLE BODY IMAGING PET IMAGING CT ATTENUATION SKULL BASE MID-THIGH Marie Beavers MD [address] [place] [address] Molecular & Functional Imaging [address] [id number] Referral ID Status Reason Start Date Expiration Date Visits Requested Visits Authorized [id number] New Request Auto-Generat ed Referral 05/25/2024 06/24/2025 1 1 [facility] for referral (narrative)No reason for referral information [facility] Phone: Reason for visit Narrative* Diagnostic Procedure Only (Routine) - Closed Specialty Diagnoses / Procedures Referred By Contac t Referred To Contact MOLECULAR & FUNCTIONAL IMAGING Diagnoses Prostate cancer (HCC) Procedures NM PET/CT PROSTATE WHOLE BODY IMAGING PET IMAGING CT ATTENUATION SKULL BASE MID-THIGH GALLIUM GA-68 GOZETOTIDE, DIG (LOCAMETZ), 1 [facility] Marie Beavers MD [address] [phone] Molecular [facility] Functional Imaging [address] [place] [address] Referral ID Status Reason Start Date Expiration Date V isits Requested Visits Authorized [id number] Closed Auto-Generate d Referral 05/25/2024 09/04/2024 1 1 [facility] Summary Purpose Family History No Family [...] September 19, 2020 12 :15pm Power of Night Baker No September 19, 2020 12:15pm Documents on File Type Date Recorded Patient Hospice/Home Health Aide Expl anation Advance Directive(s) 08/10/2021 1:01 PM Advance Directive(s) 10/02/2018 9:12 AM Documents on File Type Date Recorded Patient Hospice/Home Health Aide Expl anation Advance Directive(s) 08/10/2021 1:01 PM Advance Directive(s) 10/02/2018 9:12 AM Documents on File Type Date Recorded Patient Hospice/Home Health Aide Expl anation Advance Directive(s) 08/28/2021 9:04 AM Advance Directive(s) 08/10/2021 1:01 PM Advance Directive(s) 10/02/2018 9:12 AM Documents on File Type Date Recorded Patient Hospice/Home Health Aide Expl anation Advance Directive(s) 08/28/2021 9:04 AM Advance Directive(s) 08/10/2021 1:01 PM Advance Directive(s) 10/02/2018 9:12 AM Documents on File Type Date Recorded Patient Hospice/Home Health Aide Expl anation Advance Directive(s) 09/17/2021 9:08 AM Advance Directive(s) 08/28/2021 9:04 AM Advance Directive(s) 08/10/2021 1:01 PM Advance Directive(s) 10/02/2018 9:12 AM Documents on File Type Date Recorded Patient Hospice/Home Health Aide Expl anation Advance Directive(s) 09/17/2021 9:08 AM Advance Directive(s) 08/28/2021 9:04 AM Advance Directive(s) 08/10/2021 1:01 PM Advance Directive(s) 10/02/2018 9:12 AM Documents on File Type Date Recorded Patient Hospice/Home Health Aide Expl anation Advance Directive(s) 09/29/2021 10:40 AM Advance Directive(s) 09/28/2021 6:40 PM Advance Directive(s) 09/17/2021 9:08 AM Advance Directive(s) 08/28/2021 9:04 AM Advance Directive(s) 08/10/2021 1:01 PM Advance Directive(s) 10/02/2018 9:12 AM Documents on File Type Date Recorded Patient Hospice/Home Health Aide Expl anation Advance Directive(s) 09/29/2021 10:40 AM Advance Directive(s) 09/28/2021 6:40 PM Advance Directive(s) 09/17/2021 9:08 AM Advance Directive(s) 08/28/2021 9:04 AM Advance Directive(s) 08/10/2021 1:01 PM Advance Directive(s) 10/02/2018 9:12 AM Advance Directive Response Recorded Date/ Time Advance Directives on File No Augus t 2021 2:22pm Advance Directives No September 19, 2020 12:15pm Living Will No December 23 2:22pm Power of Night Baker No December 23, 2 022 2:22pm Advance Directive Response Recorded Date/ Time Advance Directives No September 19, 2020 12:15pm Living Will No December 23 2:22pm Power of Night Baker No December 23, 2 022 2:22pm Advance Directive Response Recorded Date/ Time Advance Directives No September 19, 2020 11:15am Living Will No April 04, 2 023 4:04pm Power of Night Baker No April 04, 2023 4:04pm Advance Directive Response Recorded Date/ Time Advance Directives No August 07, 024 1:20pm Living Will No August 08, 2023 1:20pm Power of Night Baker No August 07 1:20pm Advance Directive Response Recorded Date/ Time Living Will No May 03, 024 12:13pm Do you have a Healthcare Power of Night Baker? No May 03, 2024 12:13pm Advance Directives No April 12:13pm Advance Directive Response Recorded Date/ Time Do you have a Healthcare Power of Night Baker? No November 03, 2024 10:26pm Advance Directives [...] Prostate cancer Atherosclerosis of coronary artery of [place] heart without angina pectoris Essential hypertension Hyperlipidemia Paroxysmal atrial fibrillation History of coronary artery stent placement Chief Complaint Amb Documentation HX OF AFIB DIZZINESS FU FROM [facility] S/P CABG S/P CABG Reason for Visit H/O coronary artery bypass surgery Prostate cancer Atherosclerosis of coronary artery of [place] heart without angina pectoris Essential hypertension Hyperlipidemia Paroxysmal atrial fibrillation History of coronary artery stent placement Chief Complaint S/P CABG S/P CABG 3 M FU S/P CABG S/P CABG Reason for Visit H/O coronary artery bypass surgery Atherosclerosis of coronary artery of [place] heart without angina pectoris Essential hypertension Hyperlipidemia [...] W/O & W/CONTR MATRL Diamond Damon MD [address] [place] [phone] Mr Imaging Referral ID Status Reason Start Date Expiration Date V isits Requested Visits Authorized [id number] Closed Auto-Generate d Referral 09/03/2021 10/03/2022 1 1 Specialty Diagnoses / Procedures Referred By Mendoza rene Referred To Contact Diagnoses Malignant neoplasm of prostate (HCC) Procedures REFER TO PACC - PRE ANESTHESIA CONSULTATION CLINIC OFFICE/OUTPATIENT [facility] 60-74 MINUTES Diamond Damon MD [address] [place] [address] Referral ID Status Reason Start Date Expiration Date Visits Requested Visits Authorized [id number] Pending Review PCP Requested Referral 09/29/2021 09/28/2022 1 1 Specialty Diagnoses / Procedures Referred By Mendoza rene Referred To Contact [facility] Diagnoses Prostate cancer (HCC) Procedures PT REHAB FOLLOW UP ORDER THERAPEUTIC EXERCISES RE, EA 15 MIN. Jacquelyn Heller, PT [address] [place] [address] [address] Referral ID Status Reason Start Date Expiration Date Visits Requested Visits Authorized [id number] Pending Review PCP Requested Referral Auto-Generate d Referral 06/04/2022 09/02/2022 1 1 Specialty Diagnoses / Procedures Referred By Contac t Referred To Contact [facility] Diagnoses Prostate cancer (HCC) Procedures CONSULT TO PHYSICAL THERAPY PHYSICAL THERAPY EVALUATION HIGH COMPLEX 45 MINS Quentin Hampton MD [address] [place] [address] [address] Referral ID Status Reason Start Date Expiration Date Visits Requested Visits Authorized [id number] Pending Review Auto-Generat ed Referral 07/02/2022 06/01/2023 1 1 Specialty Diagnoses / Procedures Referred By Contac t Referred To Contact Diagnoses Prostate cancer (HCC) Procedures CT SIM PLANNING RADIATION ONCOLOGY THER RAD SIMULAJ-AIDED FIELD SETTING COMPLEX Artur Mi MD, [address] [place] [address] Referral ID Status Reason Start Date Expiration Date Visits Requested Visits Authorized [id number] Pending Review PCP Requested Referral 08/03/2022 10/31/2022 1 1 Specialty Diagnoses / Procedures Referred By Contac t Referred To Contact [facility] Diagnoses RICARDO (stress urinary incontinence), male Prostate cancer (HCC) Procedures PT REHAB FOLLOW UP ORDER THERAPEUTIC EXERCISES RE, EA 15 MIN. Jacquelyn Heller, SANTOSH [address] [place] [address] [address] Referral ID Status Reason Start Date Expiration Date Visits Requested Visits Authorized [id number] Pending Review PCP Requested Referral Auto-Generate d [...] section and content) DATE CREATED AUTHOR 11/04/2017 [facility] DATE CREATED AUTHOR AUTHOR'S ORGANIZ ATION 11/04/2017 [facility] DATE CREATED AUTHOR AUTHOR'S ORGANIZ ATION 11/08/2017 [facility] DATE CREATED AUTHOR AUTHOR'S ORGANIZ ATION 11/03/2024 [facility] DATE CREATED AUTHOR AUTHOR'S ORGANIZ ATION 11/10/2024 [facility] DATE CREATED AUTHOR AUTHOR'S ORGANIZ ATION 12/01/2024 [facility] Goals (unrecognized section and content) Goals may [...] prosecute any alcohol or drug abuse patient.[facility] CenterIn the event this information is protected by the Federal Confidentiality of Alcohol and Drug Abuse Patient Records regulations: The Federal rules restrict any use of the information to criminally investigate or prosecute any alcohol or drug abuse patient.[facility] CenterIn the event this information is protected by the Federal Confidentiality of Alcohol and Drug Abuse Patient Records regulations: The Federal rules restrict any use of the information to criminally investigate or prosecute any alcohol or drug abuse patient.[facility] CenterIn the event this information is protected by the Federal Confidentiality of Alcohol and Drug Abuse Patient Records regulations: The Federal rules restrict any use of the information to criminally investigate or prosecute any alcohol or drug abuse patient.[facility] CenterIn the event this information is protected by the Federal Confidentiality of Alcohol and Drug Abuse Patient Records regulations: The Federal rules restrict any use of the information to criminally investigate or prosecute any alcohol or drug abuse patient.[facility] CenterIn the event this information is protected by the Federal Confidentiality of Alcohol and Drug Abuse Patient Records regulations: The Federal rules restrict any use of the information to criminally investigate or prosecute any alcohol or drug abuse patient.[facility] CenterIn the event this information is protected by the Federal Confidentiality of Alcohol and Drug Abuse Patient Records regulations: The Federal rules restrict any use of the information to criminally investigate or prosecute any alcohol or drug abuse patient.[facility] CenterIn the event this information is protected by the Federal Confidentiality of Alcohol and Drug Abuse Patient Records regulations: The Federal rules restrict any use of the information to criminally investigate or prosecute any alcohol or drug abuse patient.[facility] CenterIn the event this information is protected by the Federal Confidentiality of Alcohol and Drug Abuse Patient Records regulations: The Federal rules restrict any use of the information to criminally investigate or prosecute any alcohol or drug abuse patient.[facility] CenterIn the event this information is protected by the Federal Confidentiality of Alcohol and Drug Abuse Patient Records regulations: The Federal rules restrict any use of the information to criminally investigate or prosecute any alcohol or drug abuse patient.[facility] CenterIn the event this information is protected by the Federal Confidentiality of Alcohol and Drug Abuse Patient Records regulations: The Federal rules restrict any use of the information to criminally investigate or prosecute any alcohol or drug abuse patient.[facility] CenterIn the event this information is protected by the Federal Confidentiality of Alcohol and Drug Abuse Patient Records regulations: The Federal rules restrict any use of the information to criminally investigate or prosecute any alcohol or drug abuse patient.[facility] CenterIn the event this information is protected by the Federal Confidentiality of Alcohol and Drug Abuse Patient Records regulations: The Federal rules restrict any use of the information to criminally investigate or prosecute any alcohol or drug abuse patient.[facility] CenterIn the event this information is protected by the Federal Confidentiality of Alcohol and Drug Abuse Patient Records regulations: The Federal rules restrict any use of the information to criminally investigate or prosecute any alcohol or drug abuse patient.[facility] CenterIn the event this information is protected by the Federal Confidentiality of Alcohol and Drug Abuse Patient Records regulations: The Federal rules restrict any use of the information to criminally investigate or prosecute any alcohol or drug abuse patient.[facility] CenterIn the event this information is protected by the Federal Confidentiality of Alcohol and Drug Abuse Patient Records regulations: The Federal rules restrict any use of the information to criminally investigate or prosecute any alcohol or drug abuse patient.[facility] CenterIn the event this information is protected by the Federal Confidentiality of Alcohol and Drug Abuse Patient Records regulations: The Federal rules restrict any use of the information to criminally investigate or prosecute any alcohol or drug abuse patient.[facility] CenterIn the event this information is protected by the Federal Confidentiality of Alcohol and Drug Abuse Patient Records regulations: The Federal rules restrict any use of the information to criminally investigate or prosecute any alcohol or drug abuse patient.[facility] CenterIn the event this information is protected by the Federal Confidentiality of Alcohol and Drug Abuse Patient Records regulations: The Federal rules restrict any use of the information to criminally investigate or prosecute any alcohol or drug abuse patient.[facility] CenterIn the event this information is protected by the Federal Confidentiality of Alcohol and Drug Abuse Patient Records regulations: The Federal rules restrict any use of the information to criminally investigate or prosecute any alcohol or drug abuse patient.[facility] CenterIn the event this information is protected by the Federal Confidentiality of Alcohol and Drug Abuse Patient Records regulations: The Federal rules restrict any use of the information to criminally investigate or prosecute any alcohol or drug abuse patient.[facility] CenterIn the event this information is protected by the Federal Confidentiality of Alcohol and Drug Abuse Patient Records regulations: The Federal rules restrict any use of the information to criminally investigate or prosecute any alcohol or drug abuse patient.[facility] CenterIn the event this information is protected by the Federal Confidentiality of Alcohol and Drug Abuse Patient Records regulations: The Federal rules restrict any use of the information to criminally investigate or prosecute any alcohol or drug abuse patient.[facility] CenterIn the event this information is protected by the Federal Confidentiality of Alcohol and Drug Abuse Patient Records regulations: The Federal rules restrict any use of the information to criminally investigate or prosecute any alcohol or drug abuse patient.[facility] CenterIn the event this information is protected by the Federal Confidentiality of Alcohol and Drug Abuse Patient Records regulations: The Federal rules restrict any use of the information to criminally investigate or prosecute any alcohol or drug abuse patient.[facility] CenterIn the event this information is protected by the Federal Confidentiality of Alcohol and Drug Abuse Patient Records regulations: The Federal rules restrict any use of the information to criminally investigate or prosecute any alcohol or drug abuse patient.[facility] CenterIn the event this information is protected by the Federal Confidentiality of Alcohol and Drug Abuse Patient Records regulations: The Federal rules restrict any use of the information to criminally investigate or prosecute any alcohol or drug abuse patient.[facility] CenterIn the event this information is protected by the Federal Confidentiality of Alcohol and Drug Abuse Patient Records regulations: The Federal rules restrict any use of the information to criminally investigate or prosecute any alcohol or drug abuse patient.[facility] CenterIn the event this information is protected by the Federal Confidentiality of Alcohol and Drug Abuse Patient Records regulations: The Federal rules restrict any use of the information to criminally investigate or prosecute any alcohol or drug abuse patient.[facility] CenterIn the event this information is protected by the Federal Confidentiality of Alcohol and Drug Abuse Patient Records regulations: The Federal rules restrict any use of the information to criminally investigate or prosecute any alcohol or drug abuse patient.[facility] CenterIn the event this information is protected by the Federal Confidentiality of Alcohol and Drug Abuse Patient Records regulations: The Federal rules restrict any use of the information to criminally investigate or prosecute any alcohol or drug abuse patient.[facility] CenterIn the event this information is protected by the Federal Confidentiality of Alcohol and Drug Abuse Patient Records regulations: The Federal rules restrict any use of the information to criminally investigate or prosecute any alcohol or drug abuse patient.[facility] CenterIn the event this information is protected by the Federal Confidentiality of Alcohol and Drug Abuse Patient Records regulations: The Federal rules restrict any use of the information to criminally investigate or prosecute any alcohol or drug abuse patient.[facility] CenterIn the event this information is protected by the Federal Confidentiality of Alcohol and Drug Abuse Patient Records regulations: The Federal rules restrict any use of the information to criminally investigate or prosecute any alcohol or drug abuse patient.[facility] CenterIn the event this information is protected by the Federal Confidentiality of Alcohol and Drug Abuse Patient Records regulations: The Federal rules restrict any use of the information to criminally investigate or prosecute any alcohol or drug abuse patient.[facility] CenterIn the event this information is protected by the Federal Confidentiality of Alcohol and Drug Abuse Patient Records regulations: The Federal rules restrict any use of the information to criminally investigate or prosecute any alcohol or drug abuse patient.[facility] CenterIn the event this information is protected by the Federal Confidentiality of Alcohol and Drug Abuse Patient Records regulations: The Federal rules restrict any use of the information to criminally investigate or prosecute any alcohol or drug abuse patient.[facility] CenterIn the event this information is protected by the Federal Confidentiality of Alcohol and Drug Abuse Patient Records regulations: The Federal rules restrict any use of the information to criminally investigate or prosecute any alcohol or drug abuse patient.[facility] CenterIn the event this information is protected by the Federal Confidentiality of Alcohol and Drug Abuse Patient Records regulations: The Federal rules restrict any use of the information to criminally investigate or prosecute any alcohol or drug abuse patient.[facility] CenterIn the event this information is protected by the Federal Confidentiality of Alcohol and Drug Abuse Patient Records regulations: The Federal rules restrict any use of the information to criminally investigate or prosecute any alcohol or drug abuse patient.[facility] CenterIn the event this information is protected by the Federal Confidentiality of Alcohol and Drug Abuse Patient Records regulations: The Federal rules restrict any use of the information to criminally investigate or prosecute any alcohol or drug abuse patient.[facility] CenterIn the event this information is protected by the Federal Confidentiality of Alcohol and Drug Abuse Patient Records regulations: The Federal rules restrict any use of the information to criminally investigate or prosecute any alcohol or drug abuse patient.[facility] CenterIn the event this information is protected by the Federal Confidentiality of Alcohol and Drug Abuse Patient Records regulations: The Federal rules restrict any use of the information to criminally investigate or prosecute any alcohol or drug abuse patient.[facility] CenterIn the event this information is protected by the Federal Confidentiality of Alcohol and Drug Abuse Patient Records regulations: The Federal rules restrict any use of the information to criminally investigate or prosecute any alcohol or drug abuse patient.[facility] CenterIn the event this information is protected by the Federal Confidentiality of Alcohol and Drug Abuse Patient Records regulations: The Federal rules restrict any use of the information to criminally investigate or prosecute any alcohol or drug abuse patient.[facility] CenterIn the event this information is protected by the Federal Confidentiality of Alcohol and Drug Abuse Patient Records regulations: The Federal rules restrict any use of the information to criminally investigate or prosecute any alcohol or drug abuse patient.[facility] CenterIn the event this information is protected by the Federal Confidentiality of Alcohol and Drug Abuse Patient Records regulations: The Federal rules restrict any use of the information to criminally investigate or prosecute any alcohol or drug abuse patient.[facility] CenterIn the event this information is protected by the Federal Confidentiality of Alcohol and Drug Abuse Patient Records regulations: The Federal rules restrict any use of the information to criminally investigate or prosecute any alcohol or drug abuse patient.[facility] CenterIn the event this information is protected by the Federal Confidentiality of Alcohol and Drug Abuse Patient Records regulations: The Federal rules restrict any use of the information to criminally investigate or prosecute any alcohol or drug abuse patient.[facility] CenterIn the event this information is protected by the Federal Confidentiality of Alcohol and Drug Abuse Patient Records regulations: The Federal rules restrict any use of the information to criminally investigate or prosecute any alcohol or drug abuse patient.[facility] CenterIn the event this information is protected by the Federal Confidentiality of Alcohol and Drug Abuse Patient Records regulations: The Federal rules restrict any use of the information to criminally investigate or prosecute any alcohol or drug abuse patient.[facility] CenterIn the event this information is protected by the Federal Confidentiality of Alcohol and Drug Abuse Patient Records regulations: The Federal rules restrict any use of the information to criminally investigate or prosecute any alcohol or drug abuse patient.[facility] CenterIn the event this information is protected by the Federal Confidentiality of Alcohol and Drug Abuse Patient Records regulations: The Federal rules restrict any use of the information to criminally investigate or prosecute any alcohol or drug abuse patient.[facility] CenterIn the event this information is protected by the Federal Confidentiality of Alcohol and Drug Abuse Patient Records regulations: The Federal rules restrict any use of the information to criminally investigate or prosecute any alcohol or drug abuse patient.[facility] CenterIn the event this information is protected by the Federal Confidentiality of Alcohol and Drug Abuse Patient Records regulations: The Federal rules restrict any use of the information to criminally investigate or prosecute any alcohol or drug abuse patient.[facility] CenterIn the event this information is protected by the Federal Confidentiality of Alcohol and Drug Abuse Patient Records regulations: The Federal rules restrict any use of the information to criminally investigate or prosecute any alcohol or drug abuse patient.[facility] CenterIn the event this information is protected by the Federal Confidentiality of Alcohol and Drug Abuse Patient Records regulations: The Federal rules restrict any use of the information to criminally investigate or prosecute any alcohol or drug abuse patient.[facility] CenterIn the event this information is protected by the Federal Confidentiality of Alcohol and Drug Abuse Patient Records regulations: The Federal rules restrict any use of the information to criminally investigate or prosecute any alcohol or drug abuse patient.[facility] CenterIn the event this information is protected by the Federal Confidentiality of Alcohol and Drug Abuse Patient Records regulations: The Federal rules restrict any use of the information to criminally investigate or prosecute any alcohol or drug abuse patient.[facility] CenterIn the event this information is protected by the Federal Confidentiality of Alcohol and Drug Abuse Patient Records regulations: The Federal rules restrict any use of the information to criminally investigate or prosecute any alcohol or drug abuse patient.[facility] CenterIn the event this information is protected by the Federal Confidentiality of Alcohol and Drug Abuse Patient Records regulations: The Federal rules restrict any use of the information to criminally investigate or prosecute any alcohol or drug abuse patient.[facility] CenterIn the event this information is protected by the Federal Confidentiality of Alcohol and Drug Abuse Patient Records regulations: The Federal rules restrict any use of the information to criminally investigate or prosecute any alcohol or drug abuse patient.[facility] CenterIn the event this information is protected by the Federal Confidentiality of Alcohol and Drug Abuse Patient Records regulations: The Federal rules restrict any use of the information to criminally investigate or prosecute any alcohol or drug abuse patient.[facility] CenterIn the event this information is protected by the Federal Confidentiality of Alcohol and Drug Abuse Patient Records regulations: The Federal rules restrict any use of the information to criminally investigate or prosecute any alcohol or drug abuse patient.[facility] CenterIn the event this information is protected by the Federal Confidentiality of Alcohol and Drug Abuse Patient Records regulations: The Federal rules restrict any use of the information to criminally investigate or prosecute any alcohol or drug abuse patient.[facility] CenterIn the event this information is protected by the Federal Confidentiality of Alcohol and Drug Abuse Patient Records regulations: The Federal rules restrict any use of the information to criminally investigate or prosecute any alcohol or drug abuse patient.[facility] CenterIn the event this information is protected by the Federal Confidentiality of Alcohol and Drug Abuse Patient Records regulations: The Federal rules restrict any use of the information to criminally investigate or prosecute any alcohol or drug abuse patient.[facility] CenterIn the event this information is protected by the Federal Confidentiality of Alcohol and Drug Abuse Patient Records regulations: The Federal rules restrict any use of the information to criminally investigate or prosecute any alcohol or drug abuse patient.[facility] CenterIn the event this information is protected by the Federal Confidentiality of Alcohol and Drug Abuse Patient Records regulations: The Federal rules restrict any use of the information to criminally investigate or prosecute any alcohol or drug abuse patient.[facility] CenterIn the event this information is protected by the Federal Confidentiality of Alcohol and Drug Abuse Patient Records regulations: The Federal rules restrict any use of the information to criminally investigate or prosecute any alcohol or drug abuse patient.[facility] CenterIn the event this information is protected by the Federal Confidentiality of Alcohol and Drug Abuse Patient Records regulations: The Federal rules restrict any use of the information to criminally investigate or prosecute any alcohol or drug abuse patient.[facility] CenterIn the event this information is protected by the Federal Confidentiality of Alcohol and Drug Abuse Patient Records regulations: The Federal rules restrict any use of the information to criminally investigate or prosecute any alcohol or drug abuse patient.[facility] CenterIn the event this information is protected by the Federal Confidentiality of Alcohol and Drug Abuse Patient Records regulations: The Federal rules restrict any use of the information to criminally investigate or prosecute any alcohol or drug abuse patient.[facility] CenterIn the event this information is protected by the Federal Confidentiality of Alcohol and Drug Abuse Patient Records regulations: The Federal rules restrict any use of the information to criminally investigate or prosecute any alcohol or drug abuse patient.[facility] CenterIn the event this information is protected by the Federal Confidentiality of Alcohol and Drug Abuse Patient Records regulations: The Federal rules restrict any use of the information to criminally investigate or prosecute any alcohol or drug abuse patient.[facility] CenterIn the event this information is protected by the Federal Confidentiality of Alcohol and Drug Abuse Patient Records regulations: The Federal rules restrict any use of the information to criminally investigate or prosecute any alcohol or drug abuse patient.[facility] CenterIn the event this information is protected by the Federal Confidentiality of Alcohol and Drug Abuse Patient Records regulations: The Federal rules restrict any use of the information to criminally investigate or prosecute any alcohol or drug abuse patient.[facility] CenterIn the event this information is protected by the Federal Confidentiality of Alcohol and Drug Abuse Patient Records regulations: The Federal rules restrict any use of the information to criminally investigate or prosecute any alcohol or drug abuse patient.[facility] CenterIn the event this information is protected by the Federal Confidentiality of Alcohol and Drug Abuse Patient Records regulations: The Federal rules restrict any use of the information to criminally investigate or prosecute any alcohol or drug abuse patient.[facility] CenterIn the event this information is protected by the Federal Confidentiality of Alcohol and Drug Abuse Patient Records regulations: The Federal rules restrict any use of the information to criminally investigate or prosecute any alcohol or drug abuse patient.[facility] CenterIn the event this information is protected by the Federal Confidentiality of Alcohol and Drug Abuse Patient Records regulations: The Federal rules restrict any use of the information to criminally investigate or prosecute any alcohol or drug abuse patient.[facility] CenterIn the event this information is protected by the Federal Confidentiality of Alcohol and Drug Abuse Patient Records regulations: The Federal rules restrict any use of the information to criminally investigate or prosecute any alcohol or drug abuse patient.[facility] CenterIn the event this information is protected by the Federal Confidentiality of Alcohol and Drug Abuse Patient Records regulations: The Federal rules restrict any use of the information to criminally investigate or prosecute any alcohol or drug abuse patient.[facility] CenterIn the event this information is protected by the Federal Confidentiality of Alcohol and Drug Abuse Patient Records regulations: The Federal rules restrict any use of the information to criminally investigate or prosecute any alcohol or drug abuse patient.[facility] CenterIn the event this information is protected by the Federal Confidentiality of Alcohol and Drug Abuse Patient Records regulations: The Federal rules restrict any use of the information to criminally investigate or prosecute any alcohol or drug abuse patient.[facility] CenterIn the event this information is protected by the Federal Confidentiality of Alcohol and Drug Abuse Patient Records regulations: The Federal rules restrict any use of the information to criminally investigate or prosecute any alcohol or drug abuse patient.[facility] CenterIn the event this information is protected by the Federal Confidentiality of Alcohol and Drug Abuse Patient Records regulations: The Federal rules restrict any use of the information to criminally investigate or prosecute any alcohol or drug abuse patient.[facility] CenterIn the event this information is protected by the Federal Confidentiality of Alcohol and Drug Abuse Patient Records regulations: The Federal rules restrict any use of the information to criminally investigate or prosecute any alcohol or drug abuse patient.[facility] CenterIn the event this information is protected by the Federal Confidentiality of Alcohol and Drug Abuse Patient Records regulations: The Federal rules restrict any use of the information to criminally investigate or prosecute any alcohol or drug abuse patient.[facility] CenterIn the event this information is protected by the Federal Confidentiality of Alcohol and Drug Abuse Patient Records regulations: The Federal rules restrict any use of the information to criminally investigate or prosecute any alcohol or drug abuse patient.[facility] CenterIn the event this information is protected by the Federal Confidentiality of Alcohol and Drug Abuse Patient Records regulations: The Federal rules restrict any use of the information to criminally investigate or prosecute any alcohol or drug abuse patient.[facility] CenterIn the event this information is protected by the Federal Confidentiality of Alcohol and Drug Abuse Patient Records regulations: The Federal rules restrict any use of the information to criminally investigate or prosecute any alcohol or drug abuse patient.[facility] CenterIn the event this information is protected by the Federal Confidentiality of Alcohol and Drug Abuse Patient Records regulations: The Federal rules restrict any use of the information to criminally investigate or prosecute any alcohol or drug abuse patient.[facility] CenterIn the event this information is protected by the Federal Confidentiality of Alcohol and Drug Abuse Patient Records regulations: The Federal rules restrict any use of the information to criminally investigate or prosecute any alcohol or drug abuse patient.[facility] CenterIn the event this information is protected by the Federal Confidentiality of Alcohol and Drug Abuse Patient Records regulations: The Federal rules restrict any use of the information to criminally investigate or prosecute any alcohol or drug abuse patient.[facility] CenterIn the event this information is protected by the Federal Confidentiality of Alcohol and Drug Abuse Patient Records regulations: The Federal rules restrict any use of the information to criminally investigate or prosecute any alcohol or drug abuse patient.[facility] CenterIn the event this information is protected by the Federal Confidentiality of Alcohol and Drug Abuse Patient Records regulations: The Federal rules restrict any use of the information to criminally investigate or prosecute any alcohol or drug abuse patient.[facility] CenterIn the event this information is protected by the Federal Confidentiality of Alcohol and Drug Abuse Patient Records regulations: The Federal rules restrict any use of the information to criminally investigate or prosecute any alcohol or drug abuse patient.[facility] CenterIn the event this information is protected by the Federal Confidentiality of Alcohol and Drug Abuse Patient Records regulations: The Federal rules restrict any use of the information to criminally investigate or prosecute any alcohol or drug abuse patient.[facility] CenterIn the event this information is protected by the Federal Confidentiality of Alcohol and Drug Abuse Patient Records regulations: The Federal rules restrict any use of the information to criminally investigate or prosecute any alcohol or drug abuse patient.[facility] CenterIn the event this information is protected by the Federal Confidentiality of Alcohol and Drug Abuse Patient Records regulations: The Federal rules restrict any use of the information to criminally investigate or prosecute any alcohol or drug abuse patient.[facility] CenterIn the event this information is protected by the Federal Confidentiality of Alcohol and Drug Abuse Patient Records regulations: The Federal rules restrict any use of the information to criminally investigate or prosecute any alcohol or drug abuse patient.[facility] CenterIn the event this information is protected by the Federal Confidentiality of Alcohol and Drug Abuse Patient Records regulations: The Federal rules restrict any use of the information to criminally investigate or prosecute any alcohol or drug abuse patient.[facility] CenterIn the event this information is protected by the Federal Confidentiality of Alcohol and Drug Abuse Patient Records regulations: The Federal rules restrict any use of the information to criminally investigate or prosecute any alcohol or drug abuse patient.[facility] CenterIn the event this information is protected by the Federal Confidentiality of Alcohol and Drug Abuse Patient Records regulations: The Federal rules restrict any use of the information to criminally investigate or prosecute any alcohol or drug abuse patient.[facility] CenterIn the event this information is protected by the Federal Confidentiality of Alcohol and Drug Abuse Patient Records regulations: The Federal rules restrict any use of the information to criminally investigate or prosecute any alcohol or drug abuse patient.[facility] CenterIn the event this information is protected by the Federal Confidentiality of Alcohol and Drug Abuse Patient Records regulations: The Federal rules restrict any use of the information to criminally investigate or prosecute any alcohol or drug abuse patient.[facility] Reason for Visit (unrecogniz ed section and content) Reason Comments PT Progress Note Specialty Diagnoses / Procedures Referred By Mendoza rene Referred To Contact [facility] Diagnoses Prostate cancer (HCC) Procedures CONSULT TO PHYSICAL THERAPY PHYSICAL THERAPY EVALUATION HIGH COMPLEX 45 MINS Quentin Hampton MD [address] [place] [address] [facility] [address] [place] [id number] Referral ID Status Reason Start Date Expiration Date Visits Requested Visits Authorized [id number] Authorized Auto-Generat ed Referral 05/16/2022 05/15/2023 20 20 Specialty Diagnoses / Procedures Referred By Contac t Referred To Contact Radiation Oncology Diagnoses Prostate cancer (HCC) Abnormal findings on diagnostic imaging of other parts of musculoskeletal system Procedures RAD/ONC CONSULT OFFICE/OUTPATIENT NEW HIGH MDM 60-74 MINUTES Diamond Damon MD [address] [id number] Referral ID Status Reason Start Date Expiration Date Visits Requested Visits Authorized [id number] Pending Review PCP Requested Referral 08/04/2021 08/04/2022 [...] W/O & W/CONTR MATRL Diamond Damon MD [address] [place] [address] Mr Imaging Referral ID Status Reason Start Date Expiration Date V isits Requested Visits Authorized [id number] Closed Auto-Generate d Referral 09/03/2021 10/03/2022 1 1 Reason Comments Spirometry Specialty Diagnoses / Procedures Referred By Contac t Referred To Contact [facility] Diagnoses 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 (HCC) Atrial fibrillation, unspecified type (HCC) Prostate cancer (HCC) Hyperlipidemia, unspecified hyperlipidemia type Primary hypertension Pre-operative cardiovascular examination Procedures SPIROMETRY BASELINE ONLY SPMTRY W/VC EXPIRATORY ROGELIO W/[place] [address] [place] [address] [facility] [address] [place] [address] Referral ID Status Reason Start Date Expiration Date V isits Requested Visits Authorized [id number] Closed Auto-Generate d Referral 09/14/2021 10/14/2022 1 1 Specialty Diagnoses / Procedures Referred By Contac t Referred To Contact [facility] Diagnoses 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 (HCC) Atrial fibrillation, unspecified type (HCC) Prostate cancer (HCC) Hyperlipidemia, unspecified hyperlipidemia type Primary hypertension Pre-operative cardiovascular examination Procedures LUNG DIFFUSION CAPACITY (DLCO) DIFFUSING CAPACITY Mauricio Riley MD [address] [place] [address] [facility] [address] [place] [id number] Referral ID Status Reason Start Date Expiration Date V isits Requested Visits Authorized [id number] Closed Auto-Generate d Referral 09/14/2021 10/14/2022 1 1 Specialty Diagnoses / Procedures Referred By Contac t Referred To Contact Cardiac Surg Diagnoses 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 (HCC) Atrial fibrillation, unspecified type (HCC) Prostate cancer (HCC) Hyperlipidemia, unspecified hyperlipidemia type Primary hypertension Pre-operative cardiovascular examination Procedures CARDIOTHORACIC PREOP EVALUATION OFFICE/OUTPATIENT [facility] 60-74 MINUTES Mauricio Riley MD [address] [place] [address] Referral ID Status Reason Start Date Expiration Date Visits Requested Visits Authorized [id number] Pending Review PCP Requested Referral 09/14/2021 09/14/2022 1 1 Reason Onset Date Comments Transition Of Care 10/07/2021 TCM Initial M [facility] Discharge 10/06/21 Reason Comments Follow Up Phone Call f/u call first a ttempt Reason Comments Post Op Reason Comments Radio Main J1 Reason Comments Orders Reason Onset Date Comments Transition Of Care 10/07/2021 Pharmacy - [facility] Discharge 10/06/2021 Reason Onset Date Comments Transition Of Care 10/25/2021 TCM f/u [facility] Discharge 10/06/21 Reason Comments Post Dc Program Call - Needs Attn Reason Onset Date Comments Transition Of Care 11/04/2021 TCM f/u [facility] Discharge 10/06/21 Reason Comments Received [...] cancer (HCC) Procedures CONSULT TO ONCOLOGY OFFICE/OUTPATIENT [facility] MDM [id number] MINUTES Raj Lam MD [address] [place] [address] Referral ID Status Reason Start Date Expiration Date Visits Requested Visits Authorized [id number] Pending Review PCP Requested Referral 12/16/2021 12/09/2022 1 1 Reason Comments Information Reason Onset Date Comments Population Health Navigation Outreach 01/26/2022 Diabetes Management Reason Comments Prostate Cancer Reason Comments Urinary Incontinence Prostate Cancer Reason Comments Geoint Analyst - Other Reason Comments PT Eval Referral ID Status Reason Start Date Expiration Date Visits Requested Visits Authorized [id number] Pending Review Auto-Generat ed Referral 07/02/2022 06/01/2023 1 1 Reason Comments Prostate Cancer Reason Onset Date Comments Simulation Request Form 08/02/2022 Reason Comments Physical Therapy Specialty Diagnoses / Procedures Referred By Contac t Referred To Contact [facility] Diagnoses Prostate cancer (HCC) Procedures CONSULT TO PHYSICAL THERAPY PHYSICAL THERAPY EVALUATION HIGH COMPLEX 45 MINS Quentin Hampton MD [address] [place] [address] [facility] [address] [place] [address] Reason Comments Radiotherapy On-treatment Visit Reason Comments [...] DIG (LOCAMETZ), 1 MCI Marie Beavers MD [address] [place] [address] [facility] [address] [place] [address] Referral ID Status Reason Start Date Expiration Date V isits Requested Visits Authorized [id number] Closed Auto-Generate d Referral 05/25/2024 09/04/2024 1 1 Care Teams (unrecognized sec tion and content) Dialysis Technician Relationship Specialty Start Date End Date Wes Rider MD [address] [facility] [address] PCP - General Family Practice 05/21/14 Dialysis Technician Relationship Specialty Start Date End Date Wes Rider MD [address] [place] [address] PCP - General Family Practice 05/21/14 Dialysis Technician Relationship Specialty Start Date End Date Wes Rider MD [address] [place] [address] PCP - General Family Practice 05/21/14 Dialysis Technician Relationship Specialty Start Date End Date Wes Rider MD [address] [place] [address] PCP - General Family Practice 05/21/14 Dialysis Technician Relationship Specialty Start Date End Date Wes Rider MD [facility] [place] [address] PCP - General Family Practice 05/21/14 Marie Bautista MD [address] [place] [address] Primary Staff Physician Cardiology 08/26/21 Dialysis Technician Relationship Specialty Start Date End Date Wes Rider MD [address] [place] [address] PCP - General Family Practice 05/21/14 Marie Bautista MD [address] [place] [address] Primary Staff Physician Cardiology 08/26/21 Dialysis Technician Relationship Specialty Start Date End Date Wes Rider MD [facility] [address] PCP - General Family Practice 05/21/14 Marie Bautista MD [address] [place] [address] Primary Staff Physician Cardiology 08/26/21 Dialysis Technician Relationship Specialty Start Date End Date Wes Rider MD [address] [place] [address] PCP - General Family Practice 05/21/14 Marie Bautista MD [address] [place] [address] Primary Staff Physician Cardiology 08/26/21 Dialysis Technician Relationship Specialty Start Date End Date Wes Rider MD [address] [place] [address] PCP - General Family Practice 05/21/14 Marie Bautista MD [address] [place] [address] Primary Staff Physician Cardiology 08/26/21 Dialysis Technician Relationship Specialty Start Date End Date Wes Rider MD [address] [place] [address] PCP - General Family Practice 05/21/14 Marie Bautista MD [address] [place] [address] Primary Staff Physician Cardiology 08/26/21 Dialysis Technician Relationship Specialty Start Date End Date Wes Rider MD [address] [facility] [address] PCP - General Family Practice 05/21/14 Marie Bautista MD [address] [place] [address] Primary Staff Physician Cardiology 08/26/21 Dialysis Technician Relationship Specialty Start Date End Date Wes Rider MD [address] [place] [address] PCP - General Family Practice 05/21/14 Marie Bautista MD [address] [place] [address] Primary Staff Physician Cardiology 08/26/21 Dialysis Technician Relationship Specialty Start Date End Date Wes Rider MD [address] [place] [address] PCP - General Family Practice 05/21/14 Marie Bautista MD [address] [place] [address] Primary Staff Physician Cardiology 08/26/21 Dialysis Technician Relationship Specialty Start Date End Date Wes Rider MD [address] [place] [address] PCP - General Family Practice 05/21/14 Marie Bautista MD [address] [place] [address] Primary Staff Physician Cardiology 08/26/21 Dialysis Technician Relationship Specialty Start Date End Date Wes Rider MD [facility] [place] [address] PCP - General Family Practice 05/21/14 Marie Bautista MD [address] [place] [address] Primary Staff Physician Cardiology 08/26/21 Dialysis Technician Relationship Specialty Start Date End Date Wes Rider MD [address] [place] [address] PCP - General Family Practice 05/21/14 Marie Bautista MD [address] [place] [address] Primary Staff Physician Cardiology 08/26/21 Dialysis Technician Relationship Specialty Start Date End Date Wes Rider MD [address] [place] [address] PCP - General Family Practice 05/21/14 Marie Bautista MD [address] [place] [address] Primary Staff Physician Cardiology 08/26/21 Dialysis Technician Relationship Specialty Start Date End Date Wes Rider MD [address] [place] [address] PCP - General Family Practice 05/21/14 Marie Bautista MD [address] [place] [address] Primary Staff Physician Cardiology 08/26/21 Dialysis Technician Relationship Specialty Start Date End Date Wes Rider MD [address] [place] [address] PCP - General Family Practice 05/21/14 Marie Bautista MD [address] [place] [address] Primary Staff Physician Cardiology 08/26/21 Dialysis Technician Relationship Specialty Start Date End Date Wes Rider MD [address] [place] [address] PCP - General Family Practice 05/21/14 Marie Bautista MD [address] [place] [address] Primary Staff Physician Cardiology 08/26/21 Marium Marrero [facility] Transitional [facility] Pharmacist Pharmacy 10/07/21 11/06/21 Clarke Rodriguez, NELLY [address] [place] [address] Primary Care Drying Rack Changer Internal Medicine 10/07/21 11/06/21 Dialysis Technician Relationship Specialty Start Date End Date Wes Rider MD [address] [place] [address] PCP - General Family Practice 05/21/14 Marie Bautista MD [address] [place] [address] Primary Staff Physician Cardiology 08/26/21 Marium Marrero [facility] Transitional Care Pharmacist Pharmacy 10/07/21 11/06/21 Clarke Rodriguez, NELLY [address] [place] [address] Primary Care Drying Rack Changer Internal Medicine 10/07/21 11/06/21 Dialysis Technician Relationship Specialty Start Date End Date Wes Rider MD [address] [place] [address] PCP - General Family Practice 05/21/14 Marie Bautista MD [address] [place] [address] Primary Staff Physician Cardiology 08/26/21 Marium Marrero [facility] Transitional Care Pharmacist Pharmacy 10/07/21 11/06/21 Clarke Rodriguez RN [address] [facility] [place] [address] Primary Care Drying Rack Changer Internal Medicine 10/07/21 11/06/21 Dialysis Technician Relationship Specialty Start Date End Date Wes Rider MD [address] [place] [address] PCP - General Family Practice 05/21/14 Marie Bautista MD [address] [place] [address] Primary Staff Physician Cardiology 08/26/21 Marium Marrero [facility] Transitional Care Pharmacist Pharmacy 10/07/21 11/06/21 Clarke Rodriguez RN [address] [place] [address] Primary Care Drying Rack Changer Internal Medicine 10/07/21 11/06/21 Dialysis Technician Relationship Specialty Start Date End Date Wes Rider MD [address] [place] [address] PCP - General Family Practice 05/21/14 Marie Bautista MD [address] [place] [address] Primary Staff Physician Cardiology 08/26/21 Marium Marrero [facility] Transitional Care Pharmacist Pharmacy 10/07/21 11/06/21 Clarke Rodriguez RN [address] [place] [address] Primary Care Drying Rack Changer Internal Medicine 10/07/21 11/06/21 Dialysis Technician Relationship Specialty Start Date End Date Wes Rider MD [address] [place] [address] PCP - General Family Practice 05/21/14 Marie Bautista MD [address] [place] [address] Primary Staff Physician Cardiology 08/26/21 Marium Marrero [facility] Transitional Care Pharmacist Pharmacy 10/07/21 11/06/21 Clarke Rodriguez, NELLY [address] [place] [address] Primary Care Drying Rack Changer Internal Medicine 10/07/21 11/06/21 Dialysis Technician Relationship Specialty Start Date End Date Wes Rider MD [address] [place] [address] PCP - General Family Practice 05/21/14 Marie Bautista MD [address] [place] [address] Primary Staff Physician Cardiology 08/26/21 Marium Marrero [facility] Transitional Care Pharmacist Pharmacy 10/07/21 11/06/21 Clarke Rodriguez, NELLY [address] [place] [address] Primary Care Drying Rack Changer Internal Medicine 10/07/21 11/06/21 Dialysis Technician Relationship Specialty Start Date End Date Wes Rider MD [address] [place] [address] PCP - General Family Practice 05/21/14 Marie Bautista MD [address] [place] [address] Primary Staff Physician Cardiology 08/26/21 Dialysis Technician Relationship Specialty Start Date End Date Wes Rider MD [address] [place] [address] PCP - General Family Practice 05/21/14 Marie Bautista MD [address] [place] [address] Primary Staff Physician Cardiology 08/26/21 Dialysis Technician Relationship Specialty Start Date End Date Wes Rider MD [address] [place] [address] PCP - General Family Practice 05/21/14 Marie Bautista MD [address] [place] [address] Primary Staff Physician Cardiology 08/26/21 Dialysis Technician Relationship Specialty Start Date End Date Wes Rider MD [address] [place] [address] PCP - General Family Practice 05/21/14 Marie Bautista MD [address] [place] [address] Primary Staff Physician Cardiology 08/26/21 Marium Marrero [facility] Transitional Care Pharmacist Pharmacy 10/07/21 11/06/21 Clarke Rodriguez, RN [address] [place] [address] Primary Care Drying Rack Changer Internal Medicine 10/07/21 11/06/21 Dialysis Technician Relationship Specialty Start Date End Date Wes Rider MD [address] [place] [address] PCP - General Family Practice 05/21/14 Marie Bautista MD [address] [place] [address] Primary Staff Physician Cardiology 08/26/21 Dialysis Technician Relationship Specialty Start Date End Date Wes Rider MD [address] [place] [address] PCP - General Family Practice 05/21/14 Marie Bautista MD [address] [place] [address] Primary Staff Physician Cardiology 08/26/21 Dialysis Technician Relationship Specialty Start Date End Date Wes Rider MD [address] [place] [address] PCP - General Family Practice 05/21/14 Marie Bautista MD [address] [place] [address] Primary Staff Physician Cardiology 08/26/21 Dialysis Technician Relationship Specialty Start Date End Date Wes Rider MD [address] [place] [address] PCP - General Family Medicine 05/21/14 Marie Bautista MD [address] [place] [address] Primary Staff Physician Cardiology 08/26/21 Dialysis Technician Relationship Specialty Start Date End Date Wes Rider MD [address] [facility] [address] PCP - General Family Medicine 05/21/14 Marie Bautista MD [address] [place] [address] Primary Staff Physician Cardiology 08/26/21 Dialysis Technician Relationship Specialty Start Date End Date Wes Rider MD [address] [place] [address] PCP - General Family Medicine 05/21/14 Marie Bautista MD [address] [place] [address] Primary Staff Physician Cardiology 08/26/21 Dialysis Technician Relationship Specialty Start Date End Date Wes Rider MD [address] [place] [address] PCP - General Family Medicine 05/21/14 Marie Bautista MD [address] [place] [address] Primary Staff Physician Cardiology 08/26/21 Dialysis Technician Relationship Specialty Start Date End Date Wes Rider MD [address] [place] [address] PCP - General Family Medicine 05/21/14 Marie Bautista MD [address] [place] [address] Primary Staff Physician Cardiology 08/26/21 Dialysis Technician Relationship Specialty Start Date End Date Wes Rider MD [address] [place] [address] PCP - General Family Medicine 05/21/14 Marie Bautista MD [address] [place] [address] Primary Staff Physician Cardiology 08/26/21 Dialysis Technician Relationship Specialty Start Date End Date Wes Rider MD [address] [place] [address] PCP - General Family Medicine 05/21/14 Marie Bautista MD [address] [place] [address] Primary Staff Physician Cardiology 08/26/21 Dialysis Technician Relationship Specialty Start Date End Date Wes Rider MD [address] [place] [address] PCP - General Family Medicine 05/21/14 Marie Bautista MD [address] [place] [address] Primary Staff Physician Cardiology 08/26/21 Dialysis Technician Relationship Specialty Start Date End Date Wes Rider MD [address] [place] [address] PCP - General Family Medicine 05/21/14 Marie Bautista MD [address] [place] [address] Primary Staff Physician Cardiology 08/26/21 Dialysis Technician Relationship Specialty Start Date End Date Wes Rider MD [address] [place] [address] PCP - General Family Medicine 05/21/14 Marie Bautista MD [address] [place] [address] Primary Staff Physician Cardiology 08/26/21 Artur Mi MD, [address] [place] [address] Radiation Oncology 06/02/22 Dialysis Technician Relationship Specialty Start Date End Date Wes Rider MD [address] [place] [address] PCP - General Family Medicine 05/21/14 Marie Bautista MD [address] [place] [address] Primary Staff Physician Cardiology 08/26/21 Artur Mi MD, [address] [place] [address] Radiation Oncology 06/02/22 Dialysis Technician Relationship Specialty Start Date End Date Wes Rider MD [address] [place] [address] PCP - General Family Medicine 05/21/14 Marie Bautista MD [address] [place] [address] Primary Staff Physician Cardiology 08/26/21 Dialysis Technician Relationship Specialty Start Date End Date Wes Rider MD [address] [place] [address] PCP - General Family Medicine 05/21/14 Marie Bautista MD [address] [place] [address] Primary Staff Physician Cardiology 08/26/21 Artur Mi MD, [address] [place] [address] Radiation Oncology 06/02/22 Dialysis Technician Relationship Specialty Start Date End Date Wes Rider MD [address] [place] [address] PCP - General Family Medicine 05/21/14 Marie Bautista MD [address] [place] [address] Primary Staff Physician Cardiology 08/26/21 Artur Mi MD, [address] [place] [address] Radiation Oncology 06/02/22 Dialysis Technician Relationship Specialty Start Date End Date Wes Rider MD [address] [place] [address] PCP - General Family Medicine 05/21/14 Marie Bautista MD [address] [place] [address] Primary Staff Physician Cardiology 08/26/21 Artur Mi MD, [address] [place] [address] Radiation Oncology 06/02/22 Dialysis Technician Relationship Specialty Start Date End Date Wes Rider MD [address] [place] [address] PCP - General Family Medicine 05/21/14 Marie Bautista MD [address] [place] [address] Primary Staff Physician Cardiology 08/26/21 Artur Mi MD, [address] [place] [address] Radiation Oncology 06/02/22 Dialysis Technician Relationship Specialty Start Date End Date Wes Rider MD [address] [place] [address] PCP - General Family Medicine 05/21/14 Marie Bautista MD [address] [place] [address] Primary Staff Physician Cardiology 08/26/21 Artur Mi MD, [address] [facility] [place] [address] Radiation Oncology 06/02/22 Dialysis Technician Relationship Specialty Start Date End Date Wes Rider MD [address] [facility] [address] PCP - General Family Medicine 05/21/14 Marie Bautista MD [address] [place] [address] Primary Staff Physician Cardiology 08/26/21 Artur Mi MD, [address] [facility] [place] [address] Radiation Oncology 06/02/22 Dialysis Technician Relationship Specialty Start Date End Date Wes Rider MD [address] [facility] [address] PCP - General Family Medicine 05/21/14 Marie Bautista MD [address] [place] [address] Primary Staff Physician Cardiology 08/26/21 Artur Mi MD, [address] [facility] [place] [address] Radiation Oncology 06/02/22 Dialysis Technician Relationship Specialty Start Date End Date Wes Rider MD [address] [facility] [address] PCP - General Family Medicine 05/21/14 Marie Bautista MD [address] [place] [address] Primary Staff Physician Cardiology 08/26/21 Artur Mi MD, [address] [place] [address] Radiation Oncology 06/02/22 Dialysis Technician Relationship Specialty Start Date End Date Wes Rider MD [address] [place] [address] PCP - General Family Medicine 05/21/14 Marie Bautista MD [address] [place] [address] Primary Staff Physician Cardiology 08/26/21 Artur Mi MD, [address] [place] [address] Radiation Oncology 06/02/22 Dialysis Technician Relationship Specialty Start Date End Date Wes Rider MD [address] [place] [address] PCP - General Family Medicine 05/21/14 Marie Bautista MD [address] [place] [address] Primary Staff Physician Cardiology 08/26/21 Artur Mi MD, [address] [place] [address] Radiation Oncology 06/02/22 Dialysis Technician Relationship Specialty Start Date End Date Wes Rider MD [address] [place] [address] PCP - General Family Medicine 05/21/14 Marie Bautista MD [address] [place] [address] Primary Staff Physician Cardiology 08/26/21 Artur Mi MD, [address] [facility] [place] [address] Radiation Oncology 06/02/22 Dialysis Technician Relationship Specialty Start Date End Date Wes Rider MD [address] [facility] [address] PCP - General Family Medicine 05/21/14 Marie Bautista MD [address] [place] [address] Primary Staff Physician Cardiology 08/26/21 Artur Mi MD, [address] [facility] [place] [address] Radiation Oncology 06/02/22 Dialysis Technician Relationship Specialty Start Date End Date Wes Rider MD [address] [place] [address] PCP - General Family Medicine 05/21/14 Marie Bautista MD [address] [place] [address] Primary Staff Physician Cardiology 08/26/21 Artur Mi MD, [address] [place] [address] Radiation Oncology 06/02/22 Dialysis Technician Relationship Specialty Start Date End Date Wes Rider MD [address] [place] [address] PCP - General Family Medicine 05/21/14 Marie Bautista MD [address] [place] [address] Primary Staff Physician Cardiology 08/26/21 Artur Mi MD, [address] [place] [address] Radiation Oncology 06/02/22 Dialysis Technician Relationship Specialty Start Date End Date Wes Rider MD [address] [place] [address] PCP - General Family Medicine 05/21/14 Marie Bautista MD [address] [place] [address] Primary Staff Physician Cardiology 08/26/21 Artur Mi MD, [address] [facility] [place] [address] Radiation Oncology 06/02/22 Dialysis Technician Relationship Specialty Start Date End Date Wes Rider MD [address] [facility] [address] PCP - General Family Medicine 05/21/14 Marie Bautista MD [address] [place] [address] Primary Staff Physician Cardiology 08/26/21 Artur Mi MD, [address] [facility] [place] [address] Radiation Oncology 06/02/22 Dialysis Technician Relationship Specialty Start Date End Date Wes Rider MD [address] [facility] [address] PCP - General Family Medicine 05/21/14 Marie Bautista MD [address] [place] [address] Primary Staff Physician Cardiology 08/26/21 Artur Mi MD, [address] [facility] [place] [address] Radiation Oncology 06/02/22 Dialysis Technician Relationship Specialty Start Date End Date Wes Rider MD [address] [facility] [place] [address] PCP - General Family Medicine 05/21/14 Marie Bautista MD [address] [place] [address] Primary Staff Physician Cardiology 08/26/21 Artur Mi MD, [address] [place] [address] Radiation Oncology 06/02/22 Dialysis Technician Relationship Specialty Start Date End Date Wes Rider MD [address] [place] [address] PCP - General Family Medicine 05/21/14 Marie Bautista MD [address] [place] [address] Primary Staff Physician Cardiology 08/26/21 Artur Mi MD, [address] [place] [address] Radiation Oncology 06/02/22 Dialysis Technician Relationship Specialty Start Date End Date Wes Rider MD [address] [place] [address] PCP - General Family Medicine 05/21/14 Marie Bautista MD [address] [place] [address] Primary Staff Physician Cardiology 08/26/21 Artur Mi MD, [address] [place] [address] Radiation Oncology 06/02/22 Dialysis Technician Relationship Specialty Start Date End Date Wes Rider MD [address] [place] [address] PCP - General Family Medicine 05/21/14 Marie Bautista MD [address] [place] [address] Primary Staff Physician Cardiology 08/26/21 Artur Mi MD, [address] [place] [address] Radiation Oncology 06/02/22 Dialysis Technician Relationship Specialty Start Date End Date Wes Rider MD [address] [place] [address] PCP - General Family Medicine 05/21/14 Marie Bautista MD [address] [place] [address] Primary Staff Physician Cardiology 08/26/21 Artur Mi MD, [address] [place] [address] Radiation Oncology 06/02/22 Dialysis Technician Relationship Specialty Start Date End Date Wes Rider MD [address] [place] [address] PCP - General Family Medicine 05/21/14 Marie Bautista MD [address] [place] [address] Primary Staff Physician Cardiology 08/26/21 Artur Mi MD, [address] [place] [address] Radiation Oncology 06/02/22 Team Status: Active Member Role Status Dates Dr. Wes Rider MD Family Provider Active Dr. Wes Rider MD Primary Care Provider Active Team Status: Inactive Member Role Status Dates Dr. Wes Rider MD Primary Care Provider, Referr ing Provider Active Dr. Junior Johnson MD Active Lele Hanley PAGE MAKEUP SYSTEM OPERATOR, PAGE MAKEUP SYSTEM OPERATOR-C Attending Provider Active Team Status: Inactive Member Role Status Dates Dr. Wes Ridre MD Primary Care Provider Active Lele Hanley PAGE MAKEUP SYSTEM OPERATOR, PAGE MAKEUP SYSTEM OPERATOR-C Attending Provider, Referring Pro vider Active Dialysis Technician Relationship Specialty Start Date End Date Wes Rider MD [address] [place], [place] [address] PCP - General Family Medicine 05/21/14 Marie Bautista MD [address] [place], [place] [address] Primary Staff Physician Cardiology 08/26/21 Artur Mi MD, MD [address] [place], [place] [address] Radiation Oncology 06/02/22 Team Status: Active Member Role Status Dates Dr. Wes Rider MD Primary Care Provider Active Lele Hanley PAGE MAKEUP SYSTEM OPERATOR, PAGE MAKEUP SYSTEM OPERATOR-C Attending Provider Active Team Status: Inactive Member Role Status Dates Dr. Wes Rider MD Primary Care Provider Active Dr. Marlo Harding DO Emergency Provider Active Dialysis Technician Relationship Specialty Start Date End Date Wes Rider MD [address] [place], [place] [address] PCP - General Family Medicine 05/21/14 Marie Bautista MD [address] [place], [place] [address] Primary Staff Physician Cardiology 08/26/21 Artur Mi MD, MD [address] [place], [place] [address] Radiation Oncology 06/02/22 Team Status: Inactive Member Role Status Dates Dr. Wes Rider MD Primary Care Provider Active Lele Hanley PAGE MAKEUP SYSTEM OPERATOR, PAGE MAKEUP SYSTEM OPERATOR-C Attending Provider Active Dialysis Technician Relationship Specialty Start Date End Date Wes Rider MD [address] [place], [place] [address] PCP - General Family Medicine 05/21/14 Marie Bautista MD [address] [place] [address] Primary Staff Physician Cardiology 08/26/21 Artur Mi MD [address] [place] [place], [place] [address] Radiation Oncology 06/02/22 Team Status: Inactive Member [...] MD Attending Provider, Referring Pr ovider Active Dialysis Technician Relationship Specialty Start Date End Date Wes Rider MD [address] [place], [place] [address] PCP - General Family Medicine 05/21/14 Marie Bautista MD [address] [place] [address] Primary Staff Physician Cardiology 08/26/21 Artur Mi MD [address] [place] [address] Radiation Oncology 06/02/22 Dialysis Technician Relationship Specialty Start Date End Date Marie Bautista MD [address] [place] [address] Primary Staff Physician Cardiology 08/26/21 Artur Mi MD [address] [place] [address] Radiation Oncology 06/02/22 Dialysis Technician Relationship Specialty Start Date End Date Marie Bautista MD [address] [place] [address] Primary Staff Physician Cardiology 08/26/21 Artur Mi MD [address] [place] [address] Radiation Oncology 06/02/22 Tiffanie Cheung, RN Specialty Geoint Analyst 02/20/24 Dialysis Technician Relationship Specialty Start Date End Date Marie Bautista MD [address] [place] [address] Primary Staff Physician Cardiology 08/26/21 Artur Mi MD [address] [place] [address] Radiation Oncology 06/02/22 Tiffanie Cheung, RN Specialty Geoint Analyst 02/20/24 Dialysis Technician Relationship Specialty Start Date End Date Marie Bautista MD [address] [place] [address] Primary Staff Physician Cardiology 08/26/21 Artur Mi MD [address] [place] [address] Radiation Oncology 06/02/22 Tiffanie Cheung, RN Specialty Geoint Analyst 02/20/24 Dialysis Technician Relationship Specialty Start Date End Date Marie Bautista MD [address] [place] [address] Primary Staff Physician Cardiology 08/26/21 Artur Mi MD [address] [place] [address] Radiation Oncology 06/02/22 Tiffanie Cheung, RN Specialty Geoint Analyst 02/20/24 Team Status: Active Member Role Status Dates Dr. Wes Riedr MD Family Provider Active Yecenia Agrawal MD [...] November 03, 2024 End: November 04, 2024 Dialysis Technician Relationship Specialty Start Date End Date Marie Bautista MD [address] [place] [address] Primary Staff Physician Cardiology 08/26/21 Artur Mi MD [address] [facility] [place] [address] Radiation Oncology 06/02/22 Tiffanie Cheung, NELLY Specialty Geoint Analyst 02/20/24 Dialysis Technician Relationship Specialty Start Date End Date Marie Bautista MD [address] [place] [address] Primary Staff Physician Cardiology 08/26/21 Artur Mi MD [address] [place] [address] Radiation Oncology 06/02/22 Tiffanie Cheung, NELLY Specialty Geoint Analyst 02/20/24 FOR RECORDS PERTAINING TO PATIENTS WHO [...] BE BASED ON THE PRIMARY CLINICAL RECORDS. [employer] provides no warranty or guarantee of the accuracy or completeness of information in this document.
[2024-12-24 15:08] LABS: Immunoglobulin A 218 mg/dL (61-437)
== END | disposition home or self-care (01) ==
LOC: LAB 11:00
PROVIDERS: PCP Family Medicine; Referring Provider Family Medicine; Visit Provider Family Medicine
DX: D64.9 Anemia, unspecified (principal); E11.9 Type 2 diabetes mellitus without complications
CPT/HCPCS: 36415; 82784; 83036; 83516; 86255